=== PATIENT | male | born 1990 | race Caucasian/White ===

== ENCOUNTER 2023-06-13 21:27 | Observation (INO) ==
[2023-06-13 22:25] LABS: Hematocrit (blood only) 35.6 % (42.0-52.0); Hemoglobin 12.3 g/dl (14.0-18.0); Mean Corpuscular Hemoglobin 30.6 pg (25.0-34.0); Mean Corpuscular Hgb Conc 34.6 g/dL (32.0-36.0); Mean Corpuscular Volume 88.6 fL (80.0-100.0); RDW Standard Deviation 55.2 fL (36.4-46.3); Red Blood Count 4.02 M/uL (4.70-6.10); White Blood Count 3.17 K/ul (4.8-10.8)
[2023-06-13 22:31] LABS: Alanine Aminotransferase 102 U/L (7-52); Albumin Globulin Ratio 1.1 (0.9-2); Albumin Level 3.9 gm/dl (3.4-5.0); Alkaline Phosphatase 82 U/L (34-104); Anion Gap 9 (3-11); Aspartate Aminotransferase 202 U/L (13-39); BUN Creatinine Ratio 17.2 (10-20); Bilirubin,Total 4.6 mg/dl (0.2-1.0); Blood Urea Nitrogen 10 mg/dl (6-23); Carbon Dioxide 26 mmol/L (21-32); Chloride 96 mmol/L (98-107); Creatinine Clr Calc Pharmacy 201.9 ml/min; Est GFR (African American) > 150.0 ml/min; Globulin 3.5 gm/dl (2.5-4.0); Glucose 104 mg/dl (70-99(Fasting)); Potassium 3.3 mmol/L (3.5-5.1); Sodium 131 mmol/L (136-145); Total Protein 7.4 gm/dl (6.0-8.3)
[2023-06-13] MEDS ORDERED: SODIUM CHLORIDE 0.9% 250 ML IV PRN (22:31)
[2023-06-13 22:33] LABS: Basophils # (auto) 0.01 K/uL (0.00-0.20); Basophils % (auto) 0.3 %; Eosinophils # (auto) 0.06 K/uL (0.00-0.50); Eosinophils % (auto) 1.9 %; Immature Granulocytes # (auto) 0.01 K/uL (0.01-0.20); Immature Granulocytes % (auto) 0.3 %; Lymphocytes # (auto) 1.64 K/uL (1.20-3.40); Lymphocytes % (auto) 51.7 %; Monocytes % (auto) 9.5 %; Neutrophils # (auto) 1.15 K/uL (1.40-6.50); Neutrophils % (auto) 36.3 %; Platelet Count 26 K/uL (130-400); Platelet Estimate Signific. Decreased (Normal)
[2023-06-13] MEDS: FAMOTIDINE 20MG IV PUSH 20 MG/5 ML SYR IV STA (22:41)
[2023-06-13] MEDS: ONDANSETRON INJ 2 MG/ML 2 ML VIAL IV STA (22:42)
[2023-06-13] MEDS: OPTIRAY 320 100ml IV ONE (22:51)
[2023-06-13 22:53] LABS: INR 1.8 (0.9-1.1); Partial Thromboplastin Ratio 1.3; Partial Thromboplastin Time 36 Seconds (21-31); Prothrombin Time 19.3 Seconds (9.0-12.0)
[2023-06-13] MEDS: PANTOprazole 80 MG in DEXTROSE 5% 100 ML IV STA (23:00)
[2023-06-13 23:02] LABS: Magnesium 1.4 mg/dl (1.7-2.4); Phosphorus 2.8 mg/dl (2.5-4.9)
[2023-06-13] MEDS: MULTI-VITAMIN INFUSION 10 ML, THIAMINE HCL 100 MG, FOLIC ACID 1 MG in SODIUM CHLORIDE 0... IV ONE (23:02)
--- NOTE | 2023-06-13 23:28 | CT Scan Report ---
Exam(s): CT ABDOMEN + PELVIS With Contrast IV Amt: 89 ml opti 320 EXAM: CT Abdomen and Pelvis With Intravenous Contrast CLINICAL HISTORY: Reason for exam: jaundice, bleeding from gums, elevated LFTs/bili,. TECHNIQUE: Axial computed tomography images of the abdomen and pelvis with intravenous contrast. CTDI is Automated exposure control was utilized for the study. A dose lowering technique was utilized adhering to the principles of ALARA. CONTRAST: Patient received 89 ml opti 320 of IV contrast COMPARISON: No relevant prior studies available. FINDINGS: Lung bases: Unremarkable. No mass. No consolidation. ABDOMEN: Liver: Low-attenuation area adjacent to the gallbladder fossa measures approximately 3.6 x 1.8 cm. Consider correlation with abdominal ultrasound. Gallbladder and bile ducts: Unremarkable. No calcified stones. No ductal dilation. Pancreas: Unremarkable. No mass. No ductal dilation. Spleen: Splenomegaly measuring up to 19 cm. Adrenals: Unremarkable. No mass. Kidneys and ureters: Unremarkable. No solid mass. No hydronephrosis. Stomach and bowel: Unremarkable. No obstruction. No mucosal thickening. PELVIS: Appendix: No findings to suggest acute appendicitis. Bladder: Unremarkable. No mass. Reproductive: Unremarkable as visualized. ABDOMEN and PELVIS: Intraperitoneal space: Unremarkable. No free air. No significant fluid collection. Bones/joints: Bilateral pars defects at L5. No acute fracture. No dislocation. Soft tissues: Unremarkable. Vasculature: Unremarkable. No abdominal aortic aneurysm. Lymph nodes: Unremarkable. No enlarged lymph nodes. Other findings: 25.5 mGy and DLP is 1333.55 mGy-cm. IMPRESSION: 1. Bilateral pars defects at L5. 2. Splenomegaly measuring up to 19 cm. 3. Low-attenuation hepatic area adjacent to the gallbladder fossa measures approximately 3.6 x 1.8 cm. Consider correlation with abdominal ultrasound. Electronically signed by: Wilder Montes MD 06/13/23 23:27 PM
--- NOTE | 2023-06-13 23:49 | Emergency Department Note ---
History of Present Illness General Chief complaint: Bleeding Stated complaint: LOW PLATELIT COUNT, BLOODY GUMS/SINUS Time Seen by Provider: 06/13/23 22:23 History of Present Illness This 32-year-old alcoholic presents the ER complaining of bleeding gums with a history of low platelets. Patient last quit drinking a few days ago. He does smoke marijuana. He states he feels little shaky. He did not realize he was jaundiced. Patient denies chest pain, dyspnea, abdominal pain, vomiting, diarrhea, IV drug use, excessive Tylenol use Home Medications Medication Instructions Recorded Confirmed Type Medical Cannibus 1 dose inhalation DIRECTED PRN 06/14/23 06/14/23 History NEEDED acamprosate 333 mg tablet,delayed 666 mg PO BID 06/14/23 06/14/23 History release folic acid 1 mg tablet 1 mg PO DAILY 06/14/23 06/14/23 History gabapentin 100 mg capsule 100 mg PO TID 06/14/23 06/14/23 History paliperidone 6 mg tablet,extended 6 mg PO QAM 06/14/23 06/14/23 History release 24 hr (Invega) Allergies Allergy/AdvReac Type Severity Reaction Status Date / Time No Known Allergies Allergy Verified 06/14/23 00:09 Past Med/Surg History Social History Smoking Status: Current every day smoker Tobacco Type: Cigarettes and E-cigarettes / Vaping Preferred Language: Marshallese Feels Safe at Home: Yes Review of Systems A total of 10 systems reviewed and were otherwise negative Physical Exam Vital Signs Vital Signs - 24 hr 06/13/23 21:37 06/13/23 23:29 06/14/23 00:34 Temperature 37.0 C 36.8 C Temperature Source Oral Oral Pulse Rate 90 81 Pulse Rate [Finger] 88 Pulse Rhythm Regular Pulse Strength Normal Respiratory Rate 18 18 18 Respiratory Effort / Characteristics Non-Labored Spontaneous Non-Labored Spontaneous Respiratory Depth Normal Normal Respiratory Pattern Regular Blood Pressure 129/84 124/80 Blood Pressure [Right Arm] 136/74 Blood Pressure Mean 99 94 Blood Pressure Mean [Right Arm] 94 Blood Pressure Position Sitting Sitting Blood Pressure Position [Right Arm] Semi-fowlers Pulse Oximetry 97 98 96 Oxygen Delivery Method Room Air Room Air Oxygen Flow Rate 0 Sepsis Recent Fever Within 48 Hours No Sepsis New/Unexplained Change in Mental Status N/A Sepsis Action Taken by Nursing No Action Required 06/14/23 00:50 06/14/23 01:00 06/14/23 01:05 Temperature 37.0 C 37.0 C Temperature Source Oral Oral Pulse Rate 87 94 H Pulse Rate [Finger] 96 H Pulse Rhythm Pulse Strength Respiratory Rate 18 18 18 Respiratory Effort / Characteristics Non-Labored Spontaneous Respiratory Depth Normal Respiratory Pattern Regular Blood Pressure 141/82 H 130/76 Blood Pressure [Right Arm] 130/76 Blood Pressure Mean 101 94 Blood Pressure Mean [Right Arm] 94 Blood Pressure Position Blood Pressure Position [Right Arm] Semi-fowlers Pulse Oximetry 96 96 96 Oxygen Delivery Method Room Air Oxygen Flow Rate Sepsis Recent Fever Within 48 Hours Sepsis New/Unexplained Change in Mental Status Sepsis Action Taken by Nursing 06/14/23 01:35 06/14/23 02:00 06/14/23 02:30 Temperature 36.9 C Temperature Source Oral Pulse Rate 90 86 Pulse Rate [Finger] 85 Pulse Rhythm Pulse Strength Respiratory Rate 19 19 16 Respiratory Effort / Characteristics Non-Labored Spontaneous Respiratory Depth Normal Respiratory Pattern Regular Blood Pressure 125/65 124/67 Blood Pressure [Right Arm] 125/68 Blood Pressure Mean 85 86 Blood Pressure Mean [Right Arm] 87 Blood Pressure Position Blood Pressure Position [Right Arm] Semi-fowlers Pulse Oximetry 95 94 Oxygen Delivery Method Room Air Oxygen Flow Rate Sepsis Recent Fever Within 48 Hours Sepsis New/Unexplained Change in Mental Status Sepsis Action Taken by Nursing VITALS: Vitals are noted on the nurse's note and reviewed by myself. Vital signs stable. GENERAL: White male jaundice, no bleeding from the IV site. In no acute distress, nondiaphoretic, well-developed well-nourished. SKIN: Capillary reflex less than 2 seconds. HEENT: Normocephalic. PERRLA. EOMI. Nares patent. minimal bleeding from the upper gumline. Extensive plaque buildup. Mucous membranes moist. Neck is supple without nuchal rigidity. HEART: Regular rate and rhythm LUNGS: Clear to auscultation bilaterally without wheezes, rales or rhonchi. No retractions or accessory muscle use. ABDOMEN: Positive bowel sounds x 4. Normal tympanic percussion. Soft, nontender, without masses or organomegaly. Valdes sign negative. No guarding or rebound tenderness. no CVA tenderness MUSCULOSKELETAL: No gross musculoskeletal defects. NEURO: Patient was alert and oriented to person place and time. No focal neurological deficits. Course Administered Medications Discontinued Medications Multivitamins 10 ml/ Thiamine HCl 100 mg/ Folic Acid 1 mg/Sodium Chloride 1,011.2 mls @ 500 mls/hr IV .Q2H2M ONE Stop: 06/14/23 00:32 Last Infusion: 06/14/23 01:13 Dose: Infused Documented By: Admin: 06/13/23 23:02 Dose: 500 mls/hr Documented By: GERALDINE Pantoprazole Sodium 80 mg/ (Dextrose) 120 mls @ 480 mls/hr IV ONE STA Stop: 06/13/23 22:47 Last Infusion: 06/13/23 23:27 Dose: Infused Documented By: Admin: 06/13/23 23:00 Dose: 480 mls/hr Documented By: GERALDINE Famotidine (Pepcid 20mg Iv Push) 20 mg in 5 mls @ 2.5 mls/min IV NOW STA Stop: 06/13/23 22:34 Last Admin: 06/13/23 22:41 Dose: 2.5 mls/min Documented By: GERALDINE Magnesium Sulfate/Dextrose (Magnesium Sulfate / D5w) 1 gm in 100 mls @ 100 mls/hr IV Q1H PUJA Stop: 06/14/23 01:42 Last Infusion: 06/14/23 02:41 Dose: Infused Documented By: Admin: 06/14/23 01:40 Dose: 100 mls/hr Documented By: Infusion: 06/14/23 01:40 Dose: Infused Documented By: Infusion: 06/14/23 01:13 Dose: 100 mls/hr Documented By: Infusion: 06/14/23 00:39 Dose: 0 mls/hr Documented By: Admin: 06/14/23 00:07 Dose: 100 mls/hr Documented By: GERALDINE Ioversol (Optiray 320 100ml) 89 ml IV ONCE ONE Stop: 06/13/23 22:52 Last Admin: 06/13/23 22:51 Dose: 89 ml Documented By: NAE Ondansetron HCl (Ondansetron Inj 2 Mg/Ml 2 Ml Vial) 4 mg IV NOW STA Stop: 06/13/23 22:34 Last Admin: 06/13/23 22:42 Dose: 4 mg Documented By: GERALDINE Medical Decision Making Medical Records Attestation: I reviewed the patient's medical records. Home Medications Current Medication List: was personally reviewed by me Laboratory Data Attestation: I reviewed the patient's lab results. 06/13/23 21:45 06/13/23 21:45 Lab Results 06/13/23 06/13/23 06/14/23 Range/Units 21:45 22:57 00:03 WBC 3.17 L (4.8-10.8) K/ul RBC 4.02 L (4.70-6.10) M/uL Hgb 12.3 L (14.0-18.0) g/dl Hct 35.6 L (42.0-52.0) % MCV 88.6 (80.0-100.0) fL MCH 30.6 (25.0-34.0) pg MCHC 34.6 (32.0-36.0) g/dL RDW Std Deviation 55.2 H (36.4-46.3) fL RDW Coeff of Joe 17.0 H (11.5-14.5) % Plt Count 26 L* (130-400) K/uL Immature Gran % (Auto) 0.3 % Neut % (Auto) 36.3 % Lymph % (Auto) 51.7 % Carson % (Auto) 9.5 % Eos % (Auto) 1.9 % Baso % (Auto) 0.3 % Neut # (Auto) 1.15 L (1.40-6.50) K/uL Lymph # (Auto) 1.64 (1.20-3.40) K/uL Carson # (Auto) 0.30 (0.11-0.59) K/uL Eos # (Auto) 0.06 (0.00-0.50) K/uL Baso # (Auto) 0.01 (0.00-0.20) K/uL Immature Gran # (Auto) 0.01 (0.01-0.20) K/uL Platelet Estimate Signific. Decreased L (Normal) PT 19.3 H (9.0-12.0) Seconds INR 1.8 H (0.9-1.1) APTT 36 H (21-31) Seconds PTT Ratio 1.3 Sodium 131 L (136-145) mmol/L Potassium 3.3 L (3.5-5.1) mmol/L Chloride 96 L (98-107) mmol/L Carbon Dioxide 26 (21-32) mmol/L Anion Gap 9 (3-11) BUN 10 (6-23) mg/dl Creatinine 0.58 L (0.6-1.4) mg/dl Est Cr Clr Drug Dosing 201.9 ml/min Est GFR ( Amer) > 150.0 ml/min Est GFR (Non-Af Amer) 133.0 ml/min BUN/Creatinine Ratio 17.2 (10-20) Glucose 104 H (70-99(Fasting)) mg/dl Calcium 9.0 (8.6-10.3) mg/dl Phosphorus 2.8 (2.5-4.9) mg/dl Magnesium 1.4 L (1.7-2.4) mg/dl Total Bilirubin 4.6 H (0.2-1.0) mg/dl AST 202 H (13-39) U/L ALT 102 H (7-52) U/L Alkaline Phosphatase 82 (34-104) U/L Total Protein 7.4 (6.0-8.3) gm/dl Albumin 3.9 (3.4-5.0) gm/dl Globulin 3.5 (2.5-4.0) gm/dl Albumin/Globulin Ratio 1.1 (0.9-2) Acetaminophen < 3 L (10-30) ug/ml Ethyl Alcohol mg/dL < 10.0 (<10.0) mg/dl Blood Type A Positive Antibody Screen NEGATIVE Imaging Data Attestation: I personally reviewed and interpreted this imaging study as follows: Radiologist's Impression: Abdomen/Pelvis CT 06/13/23 22:33 Exam(s): CT ABDOMEN + PELVIS With Contrast IV Amt: 89 ml opti 320 EXAM: CT Abdomen and Pelvis With Intravenous Contrast CLINICAL HISTORY: Reason for exam: jaundice, bleeding from gums, elevated LFTs/bili,. TECHNIQUE: Axial computed tomography images of the abdomen and pelvis with intravenous contrast. CTDI is Automated exposure control was utilized for the study. A dose lowering technique was utilized adhering to the principles of ALARA. CONTRAST: Patient received 89 ml opti 320 of IV contrast COMPARISON: No relevant prior studies available. FINDINGS: Lung bases: Unremarkable. No mass. No consolidation. ABDOMEN: Liver: Low-attenuation area adjacent to the gallbladder fossa measures approximately 3.6 x 1.8 cm. Consider correlation with abdominal ultrasound. Gallbladder and bile ducts: Unremarkable. No calcified stones. No ductal dilation. Pancreas: Unremarkable. No mass. No ductal dilation. Spleen: Splenomegaly measuring up to 19 cm. Adrenals: Unremarkable. No mass. Kidneys and ureters: Unremarkable. No solid mass. No hydronephrosis. Stomach and bowel: Unremarkable. No obstruction. No mucosal thickening. PELVIS: Appendix: No findings to suggest acute appendicitis. Bladder: Unremarkable. No mass. Reproductive: Unremarkable as visualized. ABDOMEN and PELVIS: Intraperitoneal space: Unremarkable. No free air. No significant fluid collection. Bones/joints: Bilateral pars defects at L5. No acute fracture. No dislocation. Soft tissues: Unremarkable. Vasculature: Unremarkable. No abdominal aortic aneurysm. Lymph nodes: Unremarkable. No enlarged lymph nodes. Other findings: 25.5 mGy and DLP is 1333.55 mGy-cm. IMPRESSION: 1. Bilateral pars defects at L5. 2. Splenomegaly measuring up to 19 cm. 3. Low-attenuation hepatic area adjacent to the gallbladder fossa measures approximately 3.6 x 1.8 cm. Consider correlation with abdominal ultrasound. Electronically signed by: Wilder Montes MD 06/13/23 23:27 PM MDM Narrative Prior records/ancillary studies reviewed and summarized above. Nursing notes reviewed. Additional history obtained from nurse. The patient's history was concerning for bleeding gums. Differential diagnosis: Etiologies such as progression of alcoholism, ITP, viral illness, metabolic, infection, hypo/hyperglycemia, electrolyte abnormalities, cardiac sources, intracerebral event, toxicologic, neurologic, as well as others were entertained. Physical examination: As above. ER treatment provided: IV Lock An order was placed for continuous cardiac monitoring. The monitor shows a rate of 60-100 with a sinus rhythm per my interpretation. Type and screen, platelets were ordered, Protonix, Pepcid, Zofran, banana bag, IV fluids Magnesium and potassium were replaced Blood consent was reviewed with the patient, signed and placed in the chart. On reassessment the patient felt better. Diagnostics interpretation by me: ECG: Ordered for weakness EKG: Normal sinus, QTc 480, no acute ST-T wave changes. Impression normal sinus rhythm independent performance of The labs Independently Interpreted by myself revealed pancytopenia most likely related to alcoholism Platelets were 26,000. I did review his labs on the [facility] apt and back in April as a were in the 100,000s. Elevated LFTs and T. bili most like related to alcoholism, prolonged INR Imaging studies: CT as above Chest x-ray with no acute consolidation, pneumothorax or free air per my independent interpretation Consultation: A consultation was placed with the hospitalist. The case was discussed and diagnostics were reviewed. The patient was evaluated in the ER for further treatment. Exam and history seem consistent with pancytopenia with minimal bleeding gums most like related to his alcoholism. Patient was given platelets. He was medicated as above. Medicine was consulted and case discussed. He will be admitted to the medical service for further evaluation and treatment. By the evaluation outlined above emergent etiologies such as cardiac sources, intracerebral event, toxologic, neurologic, abnormalities blood glucose, metabolic, as well as others were deemed relatively unlikely. The pt informed about the findings as listed above. All questions were answered and pleased with the treatment. The chart was completed utilizing [employer] Speech voice recognition software. Grammatical errors, random word insertions, pronoun errors, and incomplete sentences are an occassional consequence of this system due to software limitations, ambient noise, and hardware issues. Any formal questions or concerns about the content, text, or information contained within the body of this dictation should be directly addressed to the physician assistant chief engineer for clarification. Impression & Plan Pancytopenia, Acute alcohol abuse, Hypokalemia, Hypomagnesemia Discharge Plan Visit Data Chief Complaint: Bleeding Stated Complaint: LOW PLATELIT COUNT, BLOODY GUMS/SINUS ED Provider: H[facility] ED Midlevel Provider: Farzaneh Teixeira Discharge Problem: Pancytopenia, Acute alcohol abuse, Hypokalemia, Hypomagnesemia Patient Disposition: Admitted As Inpatient Condition: Fair Forms Stand Alone Forms: My [facility] Housekeeper Prescriptions Prescriptions: No Action folic acid 1 mg tablet 1 mg PO DAILY gabapentin 100 mg Capsule 100 mg PO TID acamprosate 333 mg tablet,delayed release (DR/EC) 666 mg PO BID Rx Instructions: PER [facility]--TID, PER PT "ONLY TAKE BID, AND SOMETIMES ONLY ONCE A DAY". paliperidone [Invega] 6 mg Tablet Extended Release 24 Hr 6 mg PO QAM Medical Cannibus 1 dose inhalation DIRECTED PRN (Reason: NEEDED) Rx Instructions: SMOKES/VAPS Referrals Referrals: Tami Upton MD [Primary Care Provider] -
[2023-06-14] MEDS: MAGNESIUM SULFATE / D5W 1 GM/100 ML BAG IV SCH (00:07)
--- NOTE | 2023-06-14 02:17 | History & Physical Report ---
Date of Service June 14, 2023 Assessment & Plan (1) Pancytopenia: Plan: 32-year-old male past medical history significant for hyperlipidemia, lung nodules, hepatosplenomegaly, alcohol induced fatty liver, history of compression fracture L1 lumbar vertebrae and T12 vertebrae, thrombocytopenia due to drugs, alcohol dependence, cigarette smoking, obsessive-compulsive disorder, medical marijuana use, history of elevated liver transaminases levels, history of ge neral anxiety disorder, history of Lyme disease presents with bleeding gums and found to have thrombocytopenia. Patient states in March he was in [facility] because his family doctor called him and told that his platelets are very low. As per patient in [facility] he was given platelet transfusion and also was put on steroids. Seems he also followed with heme-onc as outpatient but by the time his platelets improved. And was told to come to the ER if ever develops any bleeding issues. And since last few days again has some gum bleeding and he came here. He states he drinks alcohol on and off. He drinks 10 to 14 days heavy alcohol about 750 ml of vodka or whiskey daily. Then when he runs out of money or feels like stopping he stops drinking.Lately he is detoxing himself at home. Last Saturday morning was last drink as per patient. And he had withdrawal symptoms for few days. He states currently he is done with withdrawal. He states that he he has history of withdrawal seizures in the past. was admitted to hospital in [place] in the past as per patient. Currently hemodynamics are okay. Denies any blood in the stools or black stool. Denies any hematuria. Denies any headache or dizziness. No blurred visions. Has some runny nose. No sore throat. Appetite is okay. Denies any chest pain or shortness of breath. No nausea. No abdominal pain. Pancytopenia Mostly from alcoholism Will follow labs Thrombocytopenia Bleeding gums Platelets are [address] on Protonix drip History of platelet transfusion and steroids in the recent past Will consult heme-onc for further recommendations GI consult for any GI bleed Alcoholism States he has done with the withdrawal Will place on gabapentin alcohol withdrawal protocol and IV Ativan as needed Restart home gabapentin when gabapentin taper is done Received banana bag in the ER IV thiamine and folic acid Closely monitor Patient states he is following with addiction center at [facility] Alcoholic hepatitis CT scan showing lesion in gallbladder fossa Patient had MRI liver with and without contrast on April 16, 2023 which showed hepatosplenomegaly and small gastroesophageal varices. Steatohepatitis Consult GI for further recommendations Psychiatric illness Continue home medications DVT prophylaxis SCDs Disposition Telemetry History of Present Illness Chief Complaint: Bleeding gums, thrombocytopenia, alcoholic hepatitis Primary Care Provider: Tami Upton MD 32-year-old male with past medical history significant for hyperlipidemia, lung nodules, hepatosplenomegaly, alcohol induced fatty liver, history of compression fracture L1 lumbar vertebrae and T12 vertebrae, thrombocytopenia due to drugs, alcohol dependence, cigarette smoking, obsessive-compulsive disorder, medical marijuana use, history of elevated liver transaminases levels, history of general anxiety disorder, history of Lyme disease presents with bleeding gums and found to have thrombocytopenia. Patient states in March he was in [facility] because his family doctor called him and told that his platelets are very low. As per patient in [facility] he was given platelet transfusion and also was put on steroids. Seems he also followed with heme-onc as outpatient but by the time his platelets improved. And was told to come to the ER if ever develops any bleeding issues. And since last few days having gum bleeding and he came here. He states he drinks alcohol on and off. He drinks 10 to 14 days heavy alcohol about 750 ml of vodka or whiskey daily. Then when he runs out of money or feels like stopping he stops drinking.Lately he is detoxing himself at home. Last Saturday morning was last drink as per patient. And he had withdrawal symptoms for few days. He states currently he is done with withdrawal. He states that he he has history of withdrawal seizures in the past. was admitted to hospital in [place] in the past as per patient. Currently hemodynamics are okay. Denies any blood in the stools or black stool. Denies any hematuria. Denies any headache or dizziness. No blurred visions. Has some runny nose. No sore throat. Appetite is okay. Denies any chest pain or shortness of breath. No nausea. No abdominal pain. Past medical history. As mentioned above Past surgical history. Colonoscopy. Tubes in ears. Tonsillectomy and adenoidectomy. Social history. Smokes 0 point packs daily. On and off heavy drinking of alcohol as per patient. Smokes marijuana. Family history. Brother has alcoholism. Asthma. Drug abuse. Smoking. Allergies Allergy/AdvReac Type Severity Reaction Status Date / Time No Known Allergies Allergy Verified 06/14/23 00:09 Home Medications Medication Instructions Recorded Confirmed Type Medical Cannibus 1 dose inhalation DIRECTED PRN 06/14/23 06/14/23 History NEEDED acamprosate 333 mg tablet,delayed 666 mg PO BID 06/14/23 06/14/23 History release folic acid 1 mg tablet 1 mg PO DAILY 06/14/23 06/14/23 History gabapentin 100 mg capsule 100 mg PO TID 06/14/23 06/14/23 History paliperidone 6 mg tablet,extended 6 mg PO QAM 06/14/23 06/14/23 History release 24 hr (Invega) Past Med/Surg History Social History Smoking Status: Current every day smoker Tobacco Type: Cigarettes Cigarettes Per Day: 10; Do You Dip or Chew Tobacco: No; Hx Alcohol Use: Yes Alcohol type: hard liquor Hx Substance Use: Yes Last Used Substance: Hours (ago) Preferred Language: Gabonese Communication Ability: Effective Shot Blast Equipment Operator Required: No Beliefs That Will Affect Care: None Current Living Situation: Alone Other Information That Helps Us Care for You: No Feels Safe at Home: Yes Safety Concerns: Feels Safe At This Time Assistive Devices: None Review of Systems Review of Systems: All systems reviewed & are unremarkable except as noted in HPI & below Physical Exam Physical Exam: General- Not in distress Head- atraumatic Eyes- PERRL. ENT- oropharynx clear Neck- supple, no JVD. Lungs- clear to auscultation no wheezing or crackles Heart- regular rate and rhythm; no murmur, no gallop. Abdomen- normal bowel sounds, soft, nontender, no distension. Extremities- no pretibial edema, no erythema seen. Neuro- alert, oriented PERRL, no facial palsy; no dysarthria; moves extremities. Results & Data Results & Data Vital Signs (Past 12 Hours) Vital Signs Temp Pulse Pulse Resp BP BP Pulse Ox 06/14/23 02:00 36.9 C 86 19 124/67 06/14/23 01:35 90 19 125/65 95 06/14/23 01:05 37.0 C 94 H 18 130/76 96 06/14/23 01:00 96 H 18 130/76 96 06/14/23 00:50 37.0 C 87 18 141/82 H 96 06/14/23 00:34 36.8 C 81 18 124/80 96 06/13/23 23:29 88 18 136/74 98 06/13/23 21:37 37.0 C 90 18 129/84 97 O2 Del Method O2 Flow Rate 06/14/23 02:00 06/14/23 01:35 06/14/23 01:05 06/14/23 01:00 Room Air 06/14/23 00:50 06/14/23 00:34 0 06/13/23 23:29 Room Air 06/13/23 21:37 Room Air Diagnostic Findings Laboratory Results WBC 3.17 K/ul (4.8-10.8) L 06/13/23 21:45 RBC 4.02 M/uL (4.70-6.10) L 06/13/23 21:45 Hgb 12.3 g/dl (14.0-18.0) L 06/13/23 21:45 Hct 35.6 % (42.0-52.0) L 06/13/23 21:45 MCV 88.6 fL (80.0-100.0) 06/13/23 21:45 MCH 30.6 pg (25.0-34.0) 06/13/23 21:45 MCHC 34.6 g/dL (32.0-36.0) 06/13/23 21:45 RDW Std Deviation 55.2 fL (36.4-46.3) H 06/13/23 21:45 RDW Coeff of Joe 17.0 % (11.5-14.5) H 06/13/23 21:45 Plt Count 26 K/uL (130-400) L* 06/13/23 21:45 Immature Gran % (Auto) 0.3 % 06/13/23 21:45 Neut % (Auto) 36.3 % 06/13/23 21:45 Lymph % (Auto) 51.7 % 06/13/23 21:45 [place] % (Auto) 9.5 % 06/13/23 21:45 Eos % (Auto) 1.9 % 06/13/23 21:45 Baso % (Auto) 0.3 % 06/13/23 21:45 Neut # (Auto) 1.15 K/uL (1.40-6.50) L 06/13/23 21:45 Lymph # (Auto) 1.64 K/uL (1.20-3.40) 06/13/23 21:45 Dim[place] # (Auto) 0.30 K/uL (0.11-0.59) 06/13/23 21:45 Eos # (Auto) 0.06 K/uL (0.00-0.50) 06/13/23 21:45 Baso # (Auto) 0.01 K/uL (0.00-0.20) 06/13/23 21:45 Immature Gran # (Auto) 0.01 K/uL (0.01-0.20) 06/13/23 21:45 Platelet Estimate Signific. Decreased (Normal) L 06/13/23 21:45 PT 19.3 Seconds (9.0-12.0) H 06/13/23 21:45 INR 1.8 (0.9-1.1) H 06/13/23 21:45 APTT 36 Seconds (21-31) H 06/13/23 21:45 PTT Ratio 1.3 06/13/23 21:45 Sodium 131 mmol/L (136-145) L 06/13/23 21:45 Potassium 3.3 mmol/L (3.5-5.1) L 06/13/23 21:45 Chloride 96 mmol/L (98-107) L 06/13/23 21:45 Carbon Dioxide 26 mmol/L (21-32) 06/13/23 21:45 Anion Gap 9 (3-11) 06/13/23 21:45 BUN 10 mg/dl (6-23) 06/13/23 21:45 Creatinine 0.58 mg/dl (0.6-1.4) L 06/13/23 21:45 Est Cr Clr Drug Dosing 201.9 ml/min 06/13/23 21:45 Est GFR ( Amer) > 150.0 ml/min 06/13/23 21:45 Est GFR (Non-Af Amer) 133.0 ml/min 06/13/23 21:45 BUN/Creatinine Ratio 17.2 (10-20) 06/13/23 21:45 Glucose 104 mg/dl (70-99(Fasting)) H 06/13/23 21:45 Calcium 9.0 mg/dl (8.6-10.3) 06/13/23 21:45 Phosphorus 2.8 mg/dl (2.5-4.9) 06/13/23 21:45 Magnesium 1.4 mg/dl (1.7-2.4) L 06/13/23 21:45 Total Bilirubin 4.6 mg/dl (0.2-1.0) H 06/13/23 21:45 AST 202 U/L (13-39) H 06/13/23 21:45 ALT 102 U/L (7-52) H 06/13/23 21:45 Alkaline Phosphatase 82 U/L (34-104) 06/13/23 21:45 Total Protein 7.4 gm/dl (6.0-8.3) 06/13/23 21:45 Albumin 3.9 gm/dl (3.4-5.0) 06/13/23 21:45 Globulin 3.5 gm/dl (2.5-4.0) 06/13/23 21:45 Albumin/Globulin Ratio 1.1 (0.9-2) 06/13/23 21:45 Acetaminophen < 3 ug/ml (10-30) L 06/14/23 00:03 Ethyl Alcohol mg/dL < 10.0 mg/dl (<10.0) 06/14/23 00:03 Blood Type A Positive 06/13/23 22:57 Antibody Screen NEGATIVE 06/13/23 22:57 Impressions Abdomen/Pelvis CT 06/13/23 22:33 Exam(s): CT ABDOMEN + PELVIS With Contrast IV Amt: 89 ml opti 320 EXAM: CT Abdomen and Pelvis With Intravenous Contrast CLINICAL HISTORY: Reason for exam: jaundice, bleeding from gums, elevated LFTs/bili,. TECHNIQUE: Axial computed tomography images of the abdomen and pelvis with intravenous contrast. CTDI is Automated exposure control was utilized for the study. A dose lowering technique was utilized adhering to the principles of ALARA. CONTRAST: Patient received 89 ml opti 320 of IV contrast COMPARISON: No relevant prior studies available. FINDINGS: Lung bases: Unremarkable. No mass. No consolidation. ABDOMEN: Liver: Low-attenuation area adjacent to the gallbladder fossa measures approximately 3.6 x 1.8 cm. Consider correlation with abdominal ultrasound. Gallbladder and bile ducts: Unremarkable. No calcified stones. No ductal dilation. Pancreas: Unremarkable. No mass. No ductal dilation. Spleen: Splenomegaly measuring up to 19 cm. Adrenals: Unremarkable. No mass. Kidneys and ureters: Unremarkable. No solid mass. No hydronephrosis. Stomach and bowel: Unremarkable. No obstruction. No mucosal thickening. PELVIS: Appendix: No findings to suggest acute appendicitis. Bladder: Unremarkable. No mass. Reproductive: Unremarkable as visualized. ABDOMEN and PELVIS: Intraperitoneal space: Unremarkable. No free air. No significant fluid collection. Bones/joints: Bilateral pars defects at L5. No acute fracture. No dislocation. Soft tissues: Unremarkable. Vasculature: Unremarkable. No abdominal aortic aneurysm. Lymph nodes: Unremarkable. No enlarged lymph nodes. Other findings: 25.5 mGy and DLP is 1333.55 mGy-cm. IMPRESSION: 1. Bilateral pars defects at L5. 2. Splenomegaly measuring up to 19 cm. 3. Low-attenuation hepatic area adjacent to the gallbladder fossa measures approximately 3.6 x 1.8 cm. Consider correlation with abdominal ultrasound. Electronically signed by: Wilder Montes MD 06/13/23 23:27 PM ECG Additional Comments: ECG. Normal sinus rhythm rate of 85. Prolonged QTc at 480 Code Status & VTE Plan VTE Prophylaxis Plan VTE Prophylaxis will be ordered: Yes
[2023-06-14 03:19] LABS: Amphetamines+Metham, Urine Neg (Neg); Barbiturates, Urine Neg (Neg); Benzodiazepine, Urine Neg (Neg); Cocaine, Urine Neg (Neg); MDMA (Ecstacy), Urine Neg (Neg); Marijuana, Urine Pos (Neg); Methadone, Urine Neg (Neg); Opiate, Urine Neg (Neg); Phencyclidine, Urine Neg (Neg)
[2023-06-14] MEDS ORDERED: NITROGLYCERIN SL 0.4 MG/TAB TAB SL PRN (04:08)
[2023-06-14] MEDS ORDERED: GABAPENTIN 1200MG ALCOHOL WITHDRAWAL LOAD PO STA (04:08)
[2023-06-14] MEDS ORDERED: LORazepam 2 MG in SYRINGE 1 ML IV PRN (04:08)
[2023-06-14] MEDS ORDERED: LORazepam 3 MG in SYRINGE 1.5 ML IV PRN (04:08)
[2023-06-14] MEDS ORDERED: Ativan IV Alcohol Withdrawal--Active Protocol IV PRN (04:08)
[2023-06-14] MEDS ORDERED: LORazepam 1 MG in SYRINGE 0.5 ML IV PRN (04:08)
[2023-06-14] MEDS: GABAPENTIN 600 MG TAB PO ONE (05:06)
[2023-06-14] MEDS: PANTOprazole 40 MG in DEXTROSE 5% MINI-B 100 ML IV SCH (05:09)
--- NOTE | 2023-06-14 07:07 | XRay Report ---
XR chest 1V portable HISTORY: 32 years-old Male weakness acute weakness COMPARISON: None TECHNIQUE: AP view of the chest FINDINGS: Cardiomediastinal and hilar silhouettes are within normal limits. No pneumothorax, pleural effusion o r airspace consolidation. The bones appear intact. IMPRESSION: No acute process. ACT 112: Negative or not required by law. The above report was generated using voice recognition software. It may contain grammatical, syntax o r spelling errors. Electronically signed by: Reed Lambert M.D. 06/14/2023 7:06 AM
[2023-06-14 07:12] LABS: Hematocrit (blood only) 34.7 % (42.0-52.0); Hemoglobin 11.8 g/dl (14.0-18.0); Mean Corpuscular Hemoglobin 30.6 pg (25.0-34.0); Mean Corpuscular Volume 89.9 fL (80.0-100.0); Mean Platelet Volume 11.8 fL (9.4-12.4); Platelet Count 30 K/uL (130-400); RDW Coefficient of Variation 17.6 % (11.5-14.5); RDW Standard Deviation 58.2 fL (36.4-46.3); Red Blood Count 3.86 M/uL (4.70-6.10); White Blood Count 3.37 K/ul (4.8-10.8)
[2023-06-14 07:24] LABS: Alanine Aminotransferase 85 U/L (7-52); Albumin Level 3.5 gm/dl (3.4-5.0); Alkaline Phosphatase 61 U/L (34-104); Anion Gap 7 (3-11); Aspartate Aminotransferase 171 U/L (13-39); BUN Creatinine Ratio 12.1 (10-20); Bilirubin Direct 2.7 mg/dl (0-0.2); Bilirubin,Total 4.8 mg/dl (0.2-1.0); Blood Urea Nitrogen 7 mg/dl (6-23); Calcium 8.5 mg/dl (8.6-10.3); Carbon Dioxide 27 mmol/L (21-32); Chloride 100 mmol/L (98-107); Creatinine Clr Calc Pharmacy 203.1 ml/min; Est GFR (African American) > 150.0 ml/min; Glucose 90 mg/dl (70-99(Fasting)); Magnesium 1.9 mg/dl (1.7-2.4); Potassium 3.3 mmol/L (3.5-5.1); Sodium 134 mmol/L (136-145); Total Protein 6.4 gm/dl (6.0-8.3)
[2023-06-14 07:34] LABS: INR 1.7 (0.9-1.1); Prothrombin Time 17.9 Seconds (9.0-12.0)
[2023-06-14 08:11] LABS: Basophils # (auto) 0.01 K/uL (0.00-0.20); Basophils % (auto) 0.3 %; Eosinophils # (auto) 0.07 K/uL (0.00-0.50); Eosinophils % (auto) 2.1 %; Immature Granulocytes # (auto) 0.01 K/uL (0.01-0.20); Immature Granulocytes % (auto) 0.3 %; Lymphocytes # (auto) 1.67 K/uL (1.20-3.40); Lymphocytes % (auto) 49.6 %; Monocytes # (auto) 0.53 K/uL (0.11-0.59); Monocytes % (auto) 15.7 %; Neutrophils # (auto) 1.08 K/uL (1.40-6.50)
[2023-06-14] MEDS: FOLIC ACID 1 MG TAB PO SCH (08:50)
[2023-06-14] MEDS: POTASSIUM CHLORIDE CRTAB 20 MEQ TABCR PO STA (08:53)
[2023-06-14] MEDS: PALIPERIDONE 3 MG TABCR PO SCH (09:02)
[2023-06-14] MEDS: PHYTONADIONE 5 MG TAB PO STA (09:04)
[2023-06-14] MEDS: ASCORBIC ACID 500 MG TAB PO SCH (09:04)
[2023-06-14] MEDS: THIAMINE HCL 100 MG in SYRINGE 9 ML IV SCH (09:05)
[2023-06-14 09:38] LABS: Folate (Folic Acid),Ser orPlas 15.15 ng/ml (>5.38)
--- NOTE | 2023-06-14 10:02 | Gastrointestinal Consultation ---
Date of Consultation June 14, 2023 Assessment & Plan (1) Alcoholic hepatitis: (2) Alcohol abuse: Plan Discussed with patient today about the importance of cessation of ETOH. he does see addiction counselling as an outpatient. I also advised him to look into resources such as AA and rehab. We discussed that continued ETOH abuse is going to be detrimental to his health. he voiced understanding of this. suspect LFT rise is due to etoh abuse as this appears to be trending down. Would consider EGD as outpatient given a reported history of varices seen on MRI done in April. Would need correction of platelets prior to any endoscopic procedure. continue protonix 40mg IV BID. Supervising Physician Co-Signing Physician Notes Agree with TALIB Perez as above Interviewed and examined patient and agree with above Abd: Soft, NT, ND, +BS Discussed need to abstain from all alcohol. He states he is currently in outpatient rehab at [facility] Continue current therapy and supportive care History of Present Illness Reason for Consultation: alcoholic hepatitis Requesting Physician: Estuardo Reese MD Attending Physician: Tyler Hung MD History of Present Illness Patient is a 32 year old male with past medical history significant for hyperlipidemia, lung nodules, hepatosplenomegaly, alcohol induced fatty liver, history of compression fracture L1 lumbar vertebrae and T12 vertebrae, thrombocytopenia due to drugs, alcohol dependence, cigarette smoking, obsessive- compulsive disorder, medical marijuana use, history of elevated liver transaminases levels, history of general anxiety disorder, history of Lyme disease presented to the ED with bleeding gums and found to have thrombocytopenia with platelets of 26. Patient states in March he was in [facility] because his family doctor called him and told that his platelets are very low. As per patient, in [facility] he was given platelet transfusion and also was put on steroids. He has followed with heme-onc as outpatient but by the time his platelets improved. He was told to come to the ER if ever develops any bleeding issues and came due to bleeding gums. He tells me that he drinks about liter of vodka or whiskey daily and has done this since he was a teenager. his last drink was a few days ago. He tells me that he had withdrawn at that time and he did suffer hallucinations but thias has resolved now. he tells me he is seeing addiction counselling as an outpatient. CT 06/13/23 splenomegaly, low attenuation hepatic area adjacent to the gallbladder fossa measures 3.6 x 1.8 cm. per chart, he had an MRI of liver done 04/16/23 showing hepatomegaly/small gastroesophageal varices and steatohepatitis. I do not have these records. he has never had an EGD or colonoscopy. 06/14/23 total bili 4.8, d bili 2.7, ast 171, alt 85, alk 61. Patient denies any current issues with nausea, vomiting, dysphagia, heartburn, abdominal pain, unintentional weight loss, change in bowels, melena, or bright red blood per rectum. Allergies Allergy/AdvReac Type Severity Reaction Status Date / Time No Known Allergies Allergy Verified 06/14/23 00:09 Home Medications Medication Instructions Recorded Confirmed Type Medical Cannibus 1 dose inhalation DIRECTED PRN 06/14/23 06/14/23 History NEEDED acamprosate 333 mg tablet,delayed 666 mg PO BID 06/14/23 06/14/23 History release folic acid 1 mg tablet 1 mg PO DAILY 06/14/23 06/14/23 History gabapentin 100 mg capsule 100 mg PO TID 06/14/23 06/14/23 History paliperidone 6 mg tablet,extended 6 mg PO QAM 06/14/23 06/14/23 History release 24 hr (Invega) Patient History Social History Smoking Status: Current every day smoker Tobacco Type: Cigarettes Cigarettes Per Day: 10; Do You Dip or Chew Tobacco: No; Hx Alcohol Use: Yes Alcohol type: hard liquor Hx Substance Use: Yes Last Used Substance: Hours (ago) Preferred Language: Marshallese Communication Ability: Effective Preschool Teacher Required: No Beliefs That Will Affect Care: None Current Living Situation: Alone Other Information That Helps Us Care for You: No Feels Safe at Home: Yes Safety Concerns: Feels Safe At This Time Assistive Devices: None Review of Systems Review of Systems: All systems reviewed & are unremarkable except as noted in HPI & below Physical Exam Constitutional: WD/WN, vitals as above Respiratory: normal respiratory effort, lungs clear to auscultation Cardiovascular: RRR, no murmur, no edema Gastrointestinal (Abdomen): normal bowel sounds, soft, nontender, no hepatosplenomegaly Psychiatric: Orientation: alert and oriented x 3 Results & Data Vital Signs (Past 12 Hours) Vital Signs Temp Pulse Pulse Resp BP BP Pulse Ox 06/14/23 07:27 98.4 F 76 18 115/75 92 06/14/23 04:42 89 06/14/23 03:57 98.4 F 93 H 16 141/92 H 98 06/14/23 03:36 82 16 138/81 96 06/14/23 02:30 85 16 125/68 94 06/14/23 02:00 98.4 F 86 19 124/67 06/14/23 01:35 90 19 125/65 95 06/14/23 01:05 98.6 F 94 H 18 130/76 96 06/14/23 01:00 96 H 18 130/76 96 06/14/23 00:50 98.6 F 87 18 141/82 H 96 06/14/23 00:34 98.2 F 81 18 124/80 96 06/13/23 23:29 88 18 136/74 98 O2 Del Method O2 Flow Rate 06/14/23 07:27 Room Air 06/14/23 04:42 06/14/23 03:57 Room Air 06/14/23 03:36 Room Air 06/14/23 02:30 Room Air 06/14/23 02:00 06/14/23 01:35 06/14/23 01:05 06/14/23 01:00 Room Air 06/14/23 00:50 06/14/23 00:34 0 06/13/23 23:29 Room Air Coding Level of Care Code 90897 IN/OBS CONSULT LVL 4,60M Diagnoses Alcoholic hepatitis K70.10 Alcohol abuse F10.10
[2023-06-14] MEDS: GABAPENTIN 600 MG TAB PO SCH (12:42)
[2023-06-14] MEDS: PANTOprazole 40 MG in SYRINGE 0 ML IV SCH (12:43)
--- NOTE | 2023-06-14 13:33 | Communication Note ---
Date of Service: June 14, 2023 Patient seen and examined at bedside. Chart review from previous hospitalization in March at outside hospital. Patient required transfusion of 1 unit of platelets when his platelets drop less than 10,000. Patient underwent workup with hepatitis panel which was negative, HIV was negative and absolute reticulocyte count was slightly decreased. Patient follow-up with hematology in April 2023; the acute thrombocytopenia was thought likely secondary to alcohol intoxication. Patient denies any gum bleeding at the present time Labs reviewed; pancytopenia secondary to alcohol use disorder 5 mg of vitamin K and 1 unit of platelets ordered. Also on vitamin C Monitor for withdrawals. On physical exam : Constitutional: WD/WN, vitals as above, NAD, sitting up in bed, pleasant, conversing easily. No gums bleeding noted Respiratory: Bilateral vesicular breath sound Cardiovascular: RRR, no murmur, no edema Vessels: no JVD or carotid bruit Abdomen: normal bowel sounds, soft, nontender, no hepatosplenomegaly Musculoskeletal: no cyanosis or clubbing, extremities motor strength 5/5 Skin: no rashes, warm and dry normal turgor Neurologic: PERRL, EOMI, accommodation nl, no face palsy, no dysarthria CN's II- XI intact bilaterally and moves all extremities Psychiatric: A+Ox3, euthymic affect
[2023-06-14] MEDS: SODIUM CHLORIDE 0.9% 500 ML IV ONE (13:50)
--- OUTSIDE RECORDS SUMMARY | 2023-06-14 21:41 | External Medical Summary | Summary of Care ---
Author Name Unknown Organization [facility] Address [address] [place] [address] Phone [phone] Care Team Providers Care Coal Mill Operator Name Role Phone Cory Ross PA-C Primary Care Provider [phone] Reason for Visit * Reason Comments Pain Low back Limited Range Of Motion Low back Muscle Weakness Low back * Evaluate & Treat - Unlimited Visits (Within 10 days (routine)) - Pending Review Specialty Diagnoses / Procedures Referred By Danielle luong Referred To Contact Physical Medicine And Rehab Diagnoses Compression fracture of T12 vertebra, sequela Wedge compression fracture of first lumbar vertebra, sequela Procedures EVALUATE & TREAT Katherine Schmitt PA-C [address] [place] [id number] Referral ID Status Reason Start Date Expiration Date Visits Requested Visits Authorized [id number] Pending Review Specialty Services Required 06/04/2023 08/09/2023 5 5 Encounter Details Date Type Department Care Team (Latest Contact Info) Description 06/12/2023 2:30 PM EDT Rehab Services Physical Therapy [address] [place] [phone] Elise Garza, [address] [place] [address] T12 compression fracture, sequela*; Compression fracture of L1 lumbar vertebra, sequela; Chronic midline low back pain without sciatica; Muscle tightness; Muscle weakness Allergies No known active allergiesdocumented as of this encounter (statuses as of 06/13/2023) Medications Medication Sig Dispensed Refills Start Date End Date Status Acetaminophen 500 MG Oral Tablet (Tylenol Extra Strength) Take 1 Tablet by mouth every 6 hours as needed. 0 Active Acamprosate Calcium 333 MG Oral Tablet Delayed Release (Campral) Take 2 Tablets by mouth in the morning and 2 Tablets at noon and 2 Tablets before bedtime. 180 Tablet 2 04/03/2023 07/02/2023 Active Thiamine HCl 100 MG Oral Tablet (vitamin B-1) Take 1 Tablet by mouth in the morning. 30 Tablet 2 04/03/2023 07/02/2023 Active Folic Acid 1 MG Oral Tablet Take 1 Tablet by mouth in the morning. 30 Tablet 2 04/03/2023 07/02/2023 Active Gabapentin 100 MG Oral Capsule (Neurontin) Take 1 Capsule by mouth in the morning and 1 Capsule at noon and 1 Capsule before bedtime. 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 03/29/2023 Alcohol induced fatty liver 03/29/2023 Lung nodule seen on imaging study 03/29/2023 Elevated liver transaminase level 03/29/2023 Generalized anxiety disorder 03/29/2023 Hepatosplenomegaly 03/28/2023 OCD (obsessive compulsive disorder) 01/31/2023 Other insomnia 01/31/2023 Medical marijuana use 01/31/2023 Cigarette smoker 11/24/2022 Compression fracture of L1 lumbar vertebra 08/08 Compression fracture of T12 vertebra 08/09/2011 ADVANCE DIRECTIVE INFORMATION 03/08/2005 Overview: Not applicable (under age of 18) documented as of this encounter (statuses as of 06/13/2023) Resolved Problems Problem Noted Date Diagnosed Date Resolved Date Alcohol withdrawal syndrome with complication 03/30/19 24 04/02/2023 Neutropenic fever 03/30/2023 04/02/2023 Acute alcoholic intoxication with complication 03/29/2023 03/30/2023 Leucopenia 03/29/2023 04/02/2023 Drug-induced liver injury 03/29/2023 Acute hyperactive alcohol withdrawal delirium 04/05/19 23 03/30/2023 documented as of this encounter (statuses as of 06/13/2023) Immunizations Name Administration Dates Next Due Pneumococcal Conjugate Vaccine, 20-valent (Prevn ar20) 01/31/2023 Seasonal Influenza, PF, 6 M & above, IM , (FluLaval or Fluzone) 11/24/2022 TDAP (age 10 and older)(Boostrix) 01/31/2023 TDAP (age 11 and older)(Adacel) 08/08/2011 documented as of this encounter Social History Tobacco Use Types Packs/Day Years Used Date Smoking Tobacco: Every Day Cigarettes Smokeless Tobacco: Never Alcohol Use Standard Drinks/Week Comments Yes 0 (1 standard drink = 0.6 oz pur e alcohol) Occasional liter of vodka Hunger Vital Sign Answer Date Recorded Within the past 12 months, y ou worried that your food would run out before you got the money to buy more. Never true 10/27/19 23 Within the past 12 months, t he food you bought just didn't last and you didn't have money to get more. Never true 10/26/2022 Sex and Gender Information Value Date Recorded Sex Assigned at Male 10/26/2022 1:34 PM EDT Gender Identity Not on file Sexual Orientation Bisexual 10/26/2022 1: 34 PM EDT Job Start Date Occupation Industry Not on file Not on file Not on file documented as of this encounter Progress Notes * Elise Garza, MUD TANK OPERATOR - 06/12/2023 2:28 PM EDT Outpatient Physical Therapy Daily Progress Note Physical Therapy [address] [phone] Patient Name: Esdras Storey Date of : 1990 Age: [age] year old Date: 06/12/2023 Start of Care: 05/09/2023 Plan of Care Expiration Date: 06/20/2023 Visit Number: 7 Subjective: Patient states today is a good day for his back pain rating pain a 4/10. Pt states he feels he is making improvements with back pain but understands it will take time since he has had thepain for so long. States he was able to go for a 3 mile walk yesterday but did have increased pain.Reports he has increased pain with all activities and ADLs. States he does try to work on his exercises at home. Objective: Pt performed 50 minutes of core, thoracic/scapula, and LE strengthening as per below exercise chart. Performed today Exercise Sets/repetitions Part of HEP Comments Y SKTC 10x Y Y LTR 10x Y Y Hamstring Stretch 3 x 20'' Y Y Hooklying hip abd S/D 20x, green Y Y Bridges 20x, green Y Y Supine Marching 30x, green Y Y SLR 2x10 Y Y Supine side crunch 10x Y Y Sidelying Clams 20x, green Y Y Open Books 10x Y Y Seated forward flexion/diagonals 10x Y Y Cat/Camel 10x Y Y Thread the Needle 5x Y Y Seated Horizontal abd and diagonals 2x10, red Y Y Bilateral ER 20x, red Y Y Standing mid/low row 20x green Y Y Barrel Stretch 3 x 15'' Y Y Pallof Press 15x each, green Y Y Squats 20x Y Y Side Stepping 4 x 10, green Y Treatment completed under the direct supervision of Neetu Samuels PT. Assessment: Patient has made slow and steady progress with PT. Pt continues to have constant pain to the low back and mid back region. Patient has had chronic pain for many years. Pt has poor posturewith forward head and rounded shoulders. Pt has increased pain with all activities, ADLs, and gate tender. Pt has tightness to the low and mid back region that contributes to pain. Pt has decreased strength of the core, hips, and scapular region. Progressed pts program see chart above. Pt is able to tolerate progression of exercises despite having increased pain with exercises. Pt has been trying to work to work on his exercises at home but at times is difficult to increased pain. If pt continues to have increased pain pt may benefit from further testing or MRI to determine etiology of pain. Plan: Continue with current POC and determine further need for PT appts or refer back to doctor forfurther testing. UNTIMED SERVICES: 0 MINUTES TIMED SERVICES: 50 MINUTES TOTAL TIMES: 50 MINUTES Elise Garza PTA 06/12/2023 2:28 PM documented in this encounter Plan of Treatment Upcoming Encounters Date Type Department Care Team ([facility] st Contact Info) Description 06/17/2023 2:30 PM EDT Rehab Services Physical Therapy [address] [phone] Lyric Lynne, [address] [address] 06/19/2023 2:30 PM EDT Rehab Services Physical [address] [phone] Elise Garza PTA [address] [place] [phone] 07/01/2023 2:20 PM EDT Telemedicine Sleep Disorders C[facility] [address] [facility] [place] [phone] Dionna Uribe DO [address] [facility] [place] [address] 08/12/2023 12:20 PM EDT Laboratory Laboratory Hem/Onc [address] [phone] [place] [address] [place] [address] 08/12/2023 1:00 PM EDT Office Visit Hematology Oncology [facility] [place] [address] [place] [address] Rafael Metcalf PA-C [address] [place] [address] 08/29/2023 12:00 PM EDT Office Visit [address] [phone] Tami Upton MD [address] [place] [phone] Health Maintenance Due Date Last Done Comments Depression Screening 08/05/2015 08/04/2014 COVID-19 Vaccine (2022-24 season) 2022 DTaP,Tdap,and Td Vaccines (8 - Td or Tdap) 01/31/2033 01/31/2023, 08/08/2011, 07/08/2003, Additional history exists Hepatitis B Completed 10/11/1998, 03/04, 01/18/1998 Influenza Vaccine (FLU shot) Completed 11/24/2022 Pneumococcal Vaccine: Pediatrics (0 to 5 Years) and At-Risk Patients (6 to 64 Years) Completed 01/31/2023 GARDASIL-HPV IMMUNIZATION SERIES Aged Out No longer eligible based on patient's age to complete this topic MENINGOCOCCAL (MENACTRA/MENVEO) Aged Out No longer eligible based on patient's age to complete this topic documented as of this encounter Medical Devices Not on filedocumented as of this encounter Visit Diagnoses Diagnosis T12 compression fracture, sequela- Primary Compression fracture of L1 lumbar vertebra, sequela Chronic midline low back pain without sciatica Muscle tightness Unspecified disorder of muscle, ligament, and fascia Muscle weakness Muscle weakness (generalized) documented in this encounter Advance Directives Latest Code Status on File Code Status Date Activated Date Inactivated Comments Full Code 03/29/2023 1:43 PM 04/02/2023 2:03 PM This order reflects the patients wishes and were consensually agreed upon. Question Answer Comments Discussion of Advance Directives occurred with: Patient Care Teams Coal Mill Operator Relationship Specialty Start Date End Date Cory Ross PA-C [address] [place] [phone] PCP - General Physician Drawer Liner 10/27/22 documented as of this encounter
--- OUTSIDE RECORDS SUMMARY | 2023-06-14 21:41 | External Medical Summary | Summary of Care ---
Author Name Unknown Organization [facility] [address] [facility] [address] Phone [phone] Care Team Providers Care Accounts Receivable Manager Name Role Phone Cory Ross PA-C Primary Care Provider [phone] Reason for Visit * Reason Comments Pain LS Limited Range Of Motion LS Muscle Weakness LS * Evaluate & Treat - Unlimited Visits (Within 10 days (routine)) - Authorized Specialty Diagnoses / Procedures Referred By Danielle luong Referred To Contact Physical Medicine And Rehab Diagnoses Compression fracture of T12 vertebra, sequela Compression fracture of L1 vertebra, sequela Katherine Schmitt PA-C [address] [place] [address] Referral ID Status Reason Start Date Expiration Date Visits Requested Visits Authorized [id number] Authorized Specialty Services Required 05/09/2023 06/08/2023 8 8 Encounter Details Date Type Department Care Team (Latest Contact Info) Description 05/30/2023 1:00 PM EDT Rehab Services Physical Therapy [address] [phone] Elise Garza, JESSY [address] [place] [phone] T12 compression fracture, sequela*; Compression fracture of L1 lumbar vertebra, sequela; Chronic midline low back pain without sciatica; Muscle tightness; Muscle weakness Allergies No known active allergiesdocumented as of this encounter (statuses as of 05/30/2023) Medications Medication Sig Dispensed Refills Start Date [...] and 1 Capsule before bedtime. 0 Active Paliperidone ER 6 MG Oral Tablet Extended Release 24 Hour (Invega)Indications: Mixed obsessional thoughts and acts Take 1 Tablet by mouth in the morning for 7 days. 7 Tablet 0 05/29/2023 06/05/2023 Active documented as of this encounter (statuses as of 05/30/2023) Active Problems Problem Noted Date Diagnosed Date [...] as of this encounter (statuses as of 05/30/2023) Resolved Problems Problem Noted Date Diagnosed Date Resolved Date Alcohol withdrawal syndrome with complication 03/30/19 24 04/02/2023 Neutropenic fever 03/30/2023 04/02/2023 Acute alcoholic intoxication with complication 03/29/2023 03/30/2023 Leucopenia 03/29/2023 04/02/2023 Drug-induced liver injury 03/29/2023 Acute hyperactive alcohol withdrawal delirium 04/05/19 23 03/30/2023 documented as of this encounter (statuses as of 05/30/2023) Immunizations Name Administration Dates Next Due Pneumococcal [...] this encounter Progress Notes * Elise Garza, OCCUPATIONAL MEDICINE PHYSICIAN - 05/30/2023 1:12 PM EDT Outpatient Physical Therapy Daily Progress Note Physical Therapy [address] [phone] Patient Name: Esdras Storey Date of : 1990 Age: [age] year old Date: 05/30/2023 Start of Care: 05/09/2023 Plan of Care Expiration Date: 06/20/2023 Visit Number: 5 Subjective: Patient states today is a good day with his back rating his pain a 5/10 to the mid and low back. Pt states his pain depends on what he is doing. States prolonged sitting and standing morethan a hour increases his pain. Reports he has been working on his exercises at home with no difficulty. States he has been trying to walk about a mile a day if the weather is nice. Objective: Pt is agreeable to physical therapy for low back pain. Pt completed 40 minutes of therexto improve ROM and decrease back pain. See below for exercise details. Treatment completed under the in-direct supervision of Neetu Samuels PT. Performed today Exercise Sets/repetitions Part of HEP Comments N PROM of FARZANEH hips 10 minutes N Y SKTC 10x Y Y LTR 10x Y Y Hamstring Stretch 3 x 20'' Y Y Hooklying hip abd S/D 20x, green Y Y Bridges 20x, green Y Y SLR 10x Y Y Open Books 10x Y Y Seated forward flexion/diagonals 10x Y Y Cat/Camel 5x Y Y Seated Horizontal abd and diagonals 15x, red Y Y Bilateral ER 20x, red N Y Standing mid/low row 20x.green N Y Barrel Stretch 3 x 15'' N Assessment: Pt returns to PT with no change in status. Pt continues to have low back and mid back pain and tightness. Pts pain is constant but can increase with activity. Pt has a difficult time with bending over, squatting, prolonged sitting, and prolonged standing. Pt has been trying to be healthier and has been walking about a mile when it is nice out. Pt demonstrates tightness of the hips. Pt has decreased strength of the mid and low back that can contribute to sxs and pain. Pt has poor posture and requires cuing to correct this. Progressed exercises with barrel stretch. Pt could feel his muscles stretching with this exercise. Pt was pleasant during treatment and required cuing to correct form with most exercises. Pt felt looser at the end of treatment. Pt will benefit from continuedskilled PT to increase strength and mobility to improve function. Plan: Continue to progress core stabilization exercises as able. Initiate isometric bug holds. UNTIMED SERVICES: 0 MINUTES TIMED SERVICES: 40 MINUTES TOTAL TIMES: 40 MINUTES Elise Garza PTA 05/30/2023 1:13 PM documented in this encounter Plan of Treatment Upcoming Encounters Date Type Department Care Team ([facility] Contact Info) Description 06/03/2023 2:30 PM EDT Rehab Services Physical Therapy [address] [phone] Neetu Samuels, PT [address] [place] [address] 06/05/2023 2:30 PM EDT Rehab Services Physical Therapy [address] [phone] Elise Garza, OCCUPATIONAL MEDICINE PHYSICIAN [address] [place] [address] 06/10/2023 2:30 PM EDT Rehab Services Physical Therapy [address] [phone] Lyric Lynne, OCCUPATIONAL MEDICINE PHYSICIAN [address] [place] [address] 06/12/2023 2:30 PM EDT Rehab Services Physical Therapy [address] [phone] Elise Garza OCCUPATIONAL MEDICINE PHYSICIAN [address] [place] [address] 06/17/2023 2:30 PM EDT Rehab Services Physical Therapy [address] [phone] Lyric Lynne, OCCUPATIONAL MEDICINE PHYSICIAN [address] [place] [address] 06/19/2023 2:30 PM EDT Rehab Services Physical Therapy [facility] [address] [facility] [address] [place] [phone] Elise Garza, OCCUPATIONAL MEDICINE PHYSICIAN [address] [facility] [address] [place] [address] 08/12/2023 12:20 PM EDT Laboratory Laboratory Hem/Onc [facility] [place] [address] [place] [phone] [place] [address] [address] [place], [place] [phone] 08/12/2023 1:00 PM EDT Office Visit Hematology Oncology [facility] [place] [address] [place] [phone] Rafael Metcalf PA-C [address] [place], [place] [phone] 08/29/2023 12:00 PM EDT Office Visit [facility] [address] [place] [phone] Tami Upton MD [address] [place] [phone] Health Maintenance Due Date Last Done Comments [...] Advance Directives occurred with: Patient Care Teams Accounts Receivable Manager Relationship Specialty Start Date End Date Cory Ross PA-C [address] [place] [address] [place] [id number] PCP - General Physician Sole Stapler Welt 10/27/22 documented as of this encounter
--- OUTSIDE RECORDS SUMMARY | 2023-06-14 21:41 | External Medical Summary ---
Author Name Unknown Address Unknown Organization : Laboratory Report Ordering Provider Test Date Status MARGARETTE PURVISUKVITA 05/29/2023 14:14:03 Final Observation Date Value Abnormality Reference (Units ) Status Ethyl glucuronide [Mass/volume] in Urine 05/29/2023 14:14:03 >55331 Above high normal <500 (ng/mL) Final Ethyl sulfate [Mass/volume] in Urine 05/29/2023 14:14:03 >[id number] Above high normal <100 (ng/mL) Final This drug testing is for med ical treatment only.
Analysis was performed as non-forensic testing and
these results should be used only by healthcare
providers to render diagnosis or treatment, or to
monitor progress of medical conditions.
For assistance with interpreting these drug results,
please contact a [facility]
Specialist: [phone] ( ), M-F,
8am-6pm EST.
For additional information, please refer to
http://education.LikeMe.Net/faq/[email or web address]
(This link is being provided for informational/
educational purposes only.)
This test was developed and its analytical performance
characteristics have been determined by [facility]
[place], [place]. It has
not been cleared or approved by the U.S. Food and Drug
Administration. This assay has been validated pursuant
to the CLIA regulations and is used for clinical
purposes.

Test Performed at:
[facility]
[address] [facility]
[place], [place]
José Miguel Page M.D., Ph.D.,Director of Laboratories Performing Location
--- OUTSIDE RECORDS SUMMARY | 2023-06-14 21:41 | External Medical Summary | Summary of Care ---
Author Name Unknown Organization [facility] Address [address] [place] [address] Phone [phone] Care Team Providers Care Charge Entry Name Role Phone Cory Ross PA-C Primary Care Provider + [phone] Reason for Visit * Reason Comments Pain back Limited Range Of Motion Trunk, LEs Muscle Weakness Core, UE, LE * Evaluate & Treat - Unlimited Visits (Within 10 days (routine)) - Authorized Specialty Diagnoses / Procedures Referred By Danielle luong Referred To Contact Physical Medicine And Rehab Diagnoses Compression fracture of T12 vertebra, sequela Compression fracture of L1 vertebra, sequela Katherine Schmitt PA-C [address] [place] [address] Referral ID Status Reason Start Date Expiration Date Visits Requested Visits Authorized [id number] Authorized Specialty Services Required 05/09/2023 06/08/2023 8 8 Encounter Details Date Type Department Care Team (Latest Contact Info) Description 06/03/2023 2:30 PM EDT Rehab Services Physical Therapy [facility] [address] [phone] Neetu Samuels, PT [address] [place] [address] T12 compression fracture, sequela*; Compression fracture of L1 lumbar vertebra, sequela; Chronic midline low back pain without sciatica; Muscle tightness; Muscle weakness Allergies No known active allergiesdocumented as of this encounter (statuses as of 06/03/2023) Medications Medication Sig Dispensed Refills Start Date [...] as of this encounter (statuses as of 06/03/2023) Active Problems Problem Noted Date Diagnosed Date [...] as of this encounter (statuses as of 06/03/2023) Resolved Problems Problem Noted Date Diagnosed Date Resolved Date Alcohol withdrawal syndrome with complication 03/30/19 24 04/02/2023 Neutropenic fever 03/30/2023 04/02/2023 Acute alcoholic intoxication with complication 03/29/2023 03/30/2023 Leucopenia 03/29/2023 04/02/2023 Drug-induced liver injury 03/29/2023 Acute hyperactive alcohol withdrawal delirium 04/05/19 23 03/30/2023 documented as of this encounter (statuses as of 06/03/2023) Immunizations Name Administration Dates Next Due Pneumococcal [...] as of this encounter Progress Notes * Neetu Samuels, PT - 06/03/2023 2:46 PM EDT Outpatient Physical Therapy Daily Progress Note Physical Therapy [address] [address] Patient Name: Esdras Storey Date of : 1990 Age: [age] year old Date: 06/03/2023 Start of Care: 05/09/2023 Plan of Care Expiration Date: 06/20/2023 Visit Number: 6 Subjective: Patient reports 5/10 pain in lumbar region. He has been performing home exercises and feels that these are beneficial. However, he does not feel that he has had any functional improvements as of yet. He has insomnia and is hoping for a good night's sleep. Objective: Pt performed 50 minutes of core, thoracic/scapula, and LE strengthening as per below exercise chart. Performed today Exercise Sets/repetitions Part of HEP Comments N PROM of FARZANEH hips 10 minutes N Y SKTC 10x Y Y LTR 10x Y Y Hamstring Stretch 3 x 20'' Y Y Hooklying hip abd S/D 20x, green Y Y Bridges 20x, green Y Y SLR 2x5 Y Y Open Books 10x Y Y Seated forward flexion/diagonals 10x Y Y Cat/Camel 10x Y Y Seated Horizontal abd and diagonals 2x10, red Y Y Bilateral ER 20x, red N Y Standing mid/low row 20x.green N Y Barrel Stretch 3 x 15'' N Re-assessment (10 minutes): Trunk ROM: Flexion = 3cm fingertip to floor with central lumbar pain. Extension = 30 with central lumbar pain. Lateral Flexion = left WNL, right WNL; pain bilaterally. Rotation = left WNL, right WNL. Hamstring Flexibility: left 57, right 73. MMT: Hip: Flexion = left 4-4+/5, right 4-4+/5. Extension = left 4-4+/5, right 4-4+/5. Abduction = left 4+/5, right 4+/5. Knee: Extension = left 5/5, right 5/5. Flexion = left 5/5, right 4+/5. Ankle: DF = left 5/5, right 5/5. PF = left 5/5, right 5/5. BALANCE TESTS: Single Leg Stance: left 12sec, right 18sec. FUNCTIONAL OUTCOME MEASURES: Oswestry Low Back Disability Questionnaire, Revised - score 20/50 equals 40% impairment. Assessment: Pt is making good progress with trunk mobility, increasing for all motions. However he continues to have persistent pain, which is present during all trunk movements and all functional activities. He has increased 15 for L hamstring length and 23 for R, He demonstrates improvements in B LE strength, especially positive gains for B hip abduction. He still has difficulty performing SLR, which is due to low back pain. He needs constant verbal cues for proper performance of exercises and to keep motivated to continue. He reports 40% impairment in functional status, which is 18% improvement since initial evaluation. However, he has difficulty answering the questions because he pre fers not to travel or have a social life so these responses significantly improved and because he has insomnia and does not sleep well because of this, not necessarily low back pain. Pain continues to be his primary complaint. He would benefit from an MRI to determine etiology of pain. He will benefit from physical therapy to maximize trunk mobility and core stability, improve trunk/UE/LE strength, and improve functional status. Short Term Goals: 3 weeks Initiate Home Exercise Program - Met. Reduce pain to less than 6/10 at worst during daily functional activities - Not Met; inconsistent pain ratings. Improve trunk ROM to WNL for all motions with less than 4/10 pain - Not Met. Improve B LE strength by grade for weakened muscle groups - Met. Initiate core stabilization/LE strengthening program - Met. Prison Goals: 6 weeks Independent with Home Exercise Program - Ongoing. Reduce pain to less than 4/10 at worst during all functional activities - Ongoing. Improve B LE strength by 1 full grade for weakened muscle groups - Partially Met and Ongoing. Improve score on Oswestry functional scale to less than 35% impairment - Ongoing. Plan: Continue 2 times/week for 3 more weeks for progression of core stabilization, UE/scapular/LE strengthening exercises, balance/proprioceptive training, and functional/postural training. Initiateisometric bug holds. Progress toward achievement of LTGs. UNTIMED SERVICES: 10 MINUTES TIMED SERVICES: 50 MINUTES TOTAL TIMES: 60 MINUTES Neetu Samuels, PT 06/03/2023 2:46 PM documented in this encounter Plan of Treatment Upcoming Encounters Date Type Department Care Team ([facility] st Contact Info) Description 06/05/2023 2:30 PM EDT Rehab Services Physical Therapy [address] [place] [address] [place] [phone] Elise Garza, REGULATORY ASSOCIATE [address] [place] [address] 06/10/2023 2:30 PM EDT Rehab Services Physical [address] [phone] Lyric Lynne, [address] [address] 06/12/2023 2:30 PM EDT Rehab Services [address] [phone] Elise Garza, [address] [address] 06/17/2023 2:30 PM EDT Rehab Services [address] [phone] Lyric Lynne, [address] [address] 06/19/2023 2:30 PM EDT Rehab Services [address] [phone] Elise Garza, REGULATORY ASSOCIATE [address] [place] [address] 08/12/2023 12:20 PM EDT Laboratory Laboratory Hem/Onc [place] [address] [place] [address] [place] [address] [place] [address] 08/12/2023 1:00 PM EDT Office Visit Hematology Oncology [facility] [address] [place] [address] Rafael Metcalf PA-C [address] [place] [address] 08/29/2023 12:00 PM EDT Office Visit [address] [phone] Tami Upton MD [address] [place] [phone] Health Maintenance Due Date Last Done Comments Depression Screening 08/05/2015 08/04/2014 COVID-19 Vaccine (2022- season) 2022 DTaP,Tdap,and Td Vaccines (8 - [...] Advance Directives occurred with: Patient Care Teams Charge Entry Relationship Specialty Start Date End Date Cory Ross PA-C [address] [place] [address] PCP - General Physician Vending Route Servicer 10/27/22 documented as of this encounter
--- OUTSIDE RECORDS SUMMARY | 2023-06-14 21:41 | External Medical Summary | Summary of Care ---
Author Name Unknown Organization [facility] Address [address] [place] [address] Phone [phone] Care Team Providers Care Wood Carving Lathe Operator Name Role Phone Cory Ross PA-C Primary Care Provider + [phone] Reason for Visit * Reason Comments Follow Up Encounter Details Date Type Department Care Team (Latest Contact Info) Description 05/29/2023 12:40 PM EDT Office Visit [address] [phone] Tami Upton MD [address] [place] [phone] Alcohol use disorder*; Other insomnia; Alcohol induced fatty liver; Mixed hyperlipidemia Allergies No known active allergiesdocumented as of this encounter (statuses as of 05/29/2023) Medications Medication Sig Dispensed Refills Start Date [...] as of this encounter (statuses as of 05/29/2023) Active Problems Problem Noted Date Diagnosed Date [...] as of this encounter (statuses as of 05/29/2023) Resolved Problems Problem Noted Date Diagnosed Date Resolved Date Alcohol withdrawal syndrome with complication 03/30/19 24 04/02/2023 Neutropenic fever 03/30/2023 04/02/2023 Acute alcoholic intoxication with complication 03/29/2023 03/30/2023 Leucopenia 03/29/2023 04/02/2023 Drug-induced liver injury 03/29/2023 Acute hyperactive alcohol withdrawal delirium 04/05/19 23 03/30/2023 documented as of this encounter (statuses as of 05/29/2023) Immunizations Name Administration Dates Next Due Pneumococcal Conjugate Vaccine, 20-valent (Prevn ar20) 01/31/2023 Seasonal Influenza, PF, 6 M & above, IM , (FluLaval or Fluzone) 11/24/2022 TDAP (age 10 and older)(Boostrix) 01/31/2023 TDAP (age 11 and older)(Adacel) 08/08/2011 documented as of this encounter Social History Tobacco Use Types Packs/Day Years Used Date Smoking Tobacco: Every Day Cigarettes Smokeless Tobacco: Never Tobacco Cessation:Ready to Q uit: No; Counseling Given: Yes Alcohol Use Standard Drinks/Week Comments Yes 0 [...] on file documented as of this encounter Last Filed Vital Signs Vital Sign Reading Time Taken Comments Blood Pressure 150/98 05/29/2023 12:32 PM EDT Pulse 108 05/29/2023 12:32 PM EDT Temperature 36.6 C (97.9 F) 05/29/2023 12:32 PM E DT Respiratory Rate 20 05/29/2023 12:32 PM EDT Oxygen Saturation 98% 05/29/2023 12:32 PM EDT Inhaled Oxygen Concentration - - Weight 93.9 kg (207 lb) 05/29/2023 12:32 PM EDT Height - - Body Mass Index 30.57 05/13/2023 9:55 AM EDT documented in this encounter Progress Notes * Tami Upton MD - 05/29/2023 1:59 PM EDT Images from the original note were not included. History of Present Illness Esdras Storey is a 32 year old male with alcohol use disorder, anxiety, insomnia, bipolar disorder, hepatic steatosis, prior T12 and L1 compression fractures, tobacco use that presents for Follow Up Presents today to discuss labs completed at [facility]. Lipids were significantly elevated - at last checkone year ago they actually looked fairly good. No FH of hyperlipidemia or cardiovascular disease. LFTs continue to slowly trend down for acute liver injury while hospitalized. Platelets have normalized. Today he tells me he has been working on eating better and exercising. He is not worried about the cholesterol and feels he can get it improved with lifestyle changes. He continues to struggle significantly with insomnia - which has driven him back to having a few drinks per day. Last week was drinking enough again to feel withdrawal symptoms - now cut down this week. He is seeing [facility] again today. Feels his insomnia is what drives him to drink. Seeing psych at [facility]. Physical Exam Vitals: 05/29/23 1232 Temp: 36.6 C (97.9 F) Pulse: 108 Resp: 20 SpO2: 98% BP: 150/98 Physical Exam Vitals and nursing note reviewed. Constitutional: General: He is not in acute distress. Appearance: He is not toxic-appearing. HENT: Head: Normocephalic and atraumatic. Nose: Nose normal. Eyes: Conjunctiva/sclera: Conjunctivae normal. Cardiovascular: Rate and Rhythm: Normal rate. Pulmonary: Effort: Pulmonary effort is normal. No respiratory distress. Musculoskeletal: General: No signs of injury. Neurological: General: No focal deficit present. Mental Status: He is alert and oriented to person, place, and time. Mental status is at baseline. Psychiatric: Comments: Frustrated I have reviewed the following results: CMP, Lipid Panel, Hemoglobin A1C, and CBC Assessment and Plan Alcohol use disorder Has resumed drinking again, mainly to self-treat his insomnia. Seeing [facility] this afternoon. Other insomnia Persistent despite current therapy. Seeing psychiatry. Will route to them as FYI that this continues to be his biggest complaint for any recommendations Alcohol induced fatty liver LFTs improving, continue to work with [facility] for abstinence Mixed hyperlipidemia Less likely familial as lipids in 11/2022 were actually fairly normal. Now elevated with significantalcohol use, weight gain, and antipsychotic use. He is motivated to try lifestyle changes first. Declined medication. Repeat in 6 months to 1 year. Wrap-Up Follow Up: Return in about 3 months (around 08/29/2023) for Return with Physician. | For: Return with Physician Time: I spent a total of 20-29 minutes (exact time 22 mins) on the date of service in preparation, delivery, and documentation of the care provided to Esdras Storey excluding any time spent in the performance of separately billed services. documented in this encounter Nursing Notes * Titus Young LPN - 05/29/2023 12:36 PM EDT The patient has been properly identified by confirmation of name and date of . Pt here for follow up on labs. Elevated cholesterol. documented in this encounter Plan of Treatment Upcoming Encounters Date Type Department Care Team ([facility] st Contact Info) Description 05/30/2023 1:00 PM EDT Rehab Services Physical [address] [phone] Eilse Garza, [address] [address] 06/03/2023 2:30 PM EDT Rehab Services Physical Therapy [address] [phone] Neetu Samuels, PT [address] [place] [address] 06/05/2023 2:30 PM EDT Rehab Services Physical Therapy [address] [phone] Elise Garza, [address] [address] 06/10/2023 2:30 PM EDT Rehab Services Physical [address] [phone] Lyric Lynne, [address] [address] 06/12/2023 2:30 PM EDT Rehab Services Physical Therapy [address] [phone] Elise Garza, [address] [address] 06/17/2023 2:30 PM EDT Rehab Services Physical [address] [phone] Lyric Lynne, [address] [address] 06/19/2023 2:30 PM EDT Rehab Services [address] [phone] Elies Garza, [address] [address] 08/12/2023 12:20 PM EDT Laboratory Laboratory Hem/Onc [facility] [address] [place] [phone] [place] [address] [address] [place] [address] 08/12/2023 1:00 PM EDT Office Visit Hematology Oncology [facility] [address] [place] [address] Rafael Metcalf PA-C [address] [place] [address] 08/29/2023 12:00 PM EDT Office Visit [address] [phone] Tami Upton MD [address] [place] [phone] Health Maintenance Due Date Last Done [...] as of this encounter Visit Diagnoses Diagnosis Alcohol use disorder- Primary Other insomnia Alcohol induced fatty liver Alcoholic fatty liver Mixed hyperlipidemia documented in this encounter Advance Directives Latest Code Status on File Code Status Date Activated Date Inactivated Comments Full Code 03/29/2023 1:43 PM 04/02/2023 2:03 PM This order reflects the patients wishes and were consensually agreed upon. Question Answer Comments Discussion of Advance Directives occurred with: Patient Care Teams Wood Carving Lathe Operator Relationship Specialty Start Date End Date Cory Ross PA-C [address] [place] [address] PCP - General Physician Operator Receptionist 10/27/22 documented as of this encounter"
--- OUTSIDE RECORDS SUMMARY | 2023-06-14 21:41 | External Medical Summary ---
Author Name Unknown Address Unknown Organization [id number]:LABORATORY [facility] - [facility] [address] [facility] [address] [facility] [address] Laboratory Report Ordering Provider Test Date Status PAYTON CHIU 05/29/2023 14:14:03 Final Cutoff Concentrations:
Drug Level
Amphetamines 500 ng/mL
Benzodiazepines 100 ng/mL
Cannabinoids 50 ng/mL
Cocaine Metabolite 150 ng/mL
Fentanyl 1 ng/mL
Hydrocodone / Hydromorphone 300 ng/mL
Methadone Metabolite 100 ng/mL
Morphine / Codeine 300 ng/mL
Oxycodone / Oxymorphone 100 ng/mL

Screening results are presumptive and can only be used for medical purposes. Confirmatory testing is available upon request. Observation Date Value Abnormality Reference (Units ) Status Amphetamines, Urine screen 05/29/2023 14:14:03 Negative Negative Final Benzodiazepines, Urine screen 05/29/2023 14:14:03 Negative Negative Final Cannabinoids, Urine screen 05/29/2023 14:14:03 Positive Abnormal Negative Final Cocaine Metabolite, Urine screen 05/29/2023 14:14:03 Negative Negative Final fentaNYL [Presence] in Urine by Screen method 05/29/2023 14:14:03 Negative Negative Final HYDROcodone [Presence] in Urine by Screen method 05/29/2023 14:14:03 Negative Negative Final 2-Qkzdbjkrim-2,5-Dimeth yl-3,3-Diphenylpyrrolid ine (EDDP) [Presence] in Urine 05/29/2023 14:14:03 Negative Negative Final Opiates, Urine screen 05/29/2023 14:14:03 Negative Negative Final oxyCODONE [Presence] in Urine by Screen method 05/29/2023 14:14:03 Negative Negative Final Performing Location LABORATORY [facility] - [address] [facility] [address] [facility] [address]
--- OUTSIDE RECORDS SUMMARY | 2023-06-14 21:41 | External Medical Summary | Summary of Care ---
Author Name Unknown Organization [facility] Address [address] [place] [address] Phone [phone] Care Team Providers Care Litigation Assistant Name Role Phone Cory Ross PA-C Primary Care Provider + [phone] Reason for Visit * Reason Onset Date Comments Information 05/29/2023 Encounter Details Date Type Department Care Team ([facility] st Contact Info) Description 05/29/[address] [phone] Tami Upton MD [address] [place] [phone] Information Allergies No known active allergiesdocumented as of [...] morning. 30 Tablet 2 04/03/2023 07/02/2023 Active documented as of this encounter (statuses as of 05/29/2023) Active Problems Problem Noted Date Diagnosed Date Alcohol dependence, continuous 04/02/2023 History of Lyme [...] Tobacco: Never Alcohol Use Standard Drinks/Week Comments Not Currently 0 (1 standard drink = 0.6 oz pur e alcohol) Denies 05/13/23 Hunger Vital Sign Answer Date Recorded Within [...] on file documented as of this encounter Miscellaneous Notes * Telephone Encounter - Arie Wadsworth PHARM Tech - 05/29/2023 9:07 AM EDT Pt calling to confirm appointment time. Pt verbalized understanding of time. Thank you, Arie Wadsworth Senior Biostatistician/Group Leader [facility]) 05/29/2023,9:08 AM documented in this encounter Plan of Treatment Upcoming Encounters Date Type Department Care Team ([facility] Contact Info) Description 05/29/2023 12:40 PM EDT Office Visit Family [address] [phone] Tami Upton MD [address] [place] [phone] 05/30/2023 1:00 PM EDT Rehab Services Physical Therapy [address] [place] [phone] Elise Garza PTA [address] [place] [address] [address] [place] [address] 06/03/2023 2:30 PM EDT Rehab Services Physical Therapy [address] [place] [phone] Neetu Samuels, PT [address] [place] [address] 06/05/2023 2:30 PM EDT Rehab Services [facility] Therapy [address] [phone] Elise Garza, SOLAR BUSINESS DEVELOPER [address] [place] [address] 06/10/2023 2:30 PM EDT Rehab Services [address] [phone] Lyric Lynne, SOLAR BUSINESS DEVELOPER [address] [place] [address] 06/12/2023 2:30 PM EDT Rehab Services [facility] Therapy [address] [phone] Elise Garza, SOLAR BUSINESS DEVELOPER [address] [place] [address] 06/17/2023 2:30 PM EDT Rehab Services [address] [phone] Lyric Lynne, SOLAR BUSINESS DEVELOPER [address] [place] [address] 06/19/2023 2:30 PM EDT Rehab Services [address] [phone] Elise Garza, SOLAR BUSINESS DEVELOPER [address] [place] [address] 08/12/2023 12:20 PM EDT Laboratory Laboratory [facility] [address] [place] [address] Kenneth, [facility] Med [address] [place] [address] 08/12/2023 1:00 PM EDT Office Visit Hematology Oncology [facility], Kenneth [address] [place] [address] Rafael Metcalf PA-C [address] [place] [address] Health Maintenance Due Date Last Done Comments [...] Not on filedocumented as of this encounter Advance Directives Latest Code Status on File Code Status Date Activated Date Inactivated Comments Full Code 03/29/2023 1:43 PM 04/02/2023 2:03 PM This order reflects the patients wishes and were consensually agreed upon. Question Answer Comments Discussion of Advance Directives occurred with: Patient Care Teams Litigation Assistant Relationship Specialty Start Date End Date Cory Ross PA-C [address] [place] [address] PCP - General Physician Radar Systems Engineer 10/27/22 documented as of this encounter
--- OUTSIDE RECORDS SUMMARY | 2023-06-14 21:42 | External Medical Summary ---
Author Name Unknown Address Unknown Organization [id number]:LABORATORY [facility] - [address] [place] [address] Laboratory Report Ordering Provider Test Date Status APPLELINDAR 05/13/2023 10:20:54 Final Observation Date Value Abnormality Reference (Units ) Status Triglyceride 05/13/2023 10:20:54 192 Above high normal <=174 (mg/dL) Final Triglyceride Reference Range s (mg/dL):
<150 Acceptable
150-174 Borderline high
175-499 High
>=500 Very high Cholesterol 05/13/2023 10:20:54 250 Above high normal <200 (mg/dL) Final Total Cholesterol Reference Ranges (mg/dL):
<200 Desirable
200-239 Borderline high
>=240 High HDL 05/13/2023 10:20:54 32 Below low normal >39 (mg/dL) Final HDL Cholesterol Reference Ra nges (mg/dL):
>=60 High (Desirable)
<50 Low (Undesirable) For Females
<40 Low (Undesirable) For Males NON-HDL CHOLESTEROL 05/13/2023 10:20:54 218 Above high normal <=159 (mg/dL) Final Non-HDL Cholesterol Referenc e Range (mg/dL):
<100 Target level for high risk ASCVD patient
<130 Optimal for general population
130-159 Near optimal for general population
160-189 Borderline High
190-219 High
>=220 Very High LDL, (calculated) 05/13/2023 10:20:54 180 Above high n ormal <=129 (mg/dL) Final LDL Cholesterol Reference Ra nges (mg/dL):
<70 Target level for high risk ASCVD patient
<100 Optimal for general population
100-129 Near optimal for general population
130-159 Borderline high
160-189 High
>=190 Very high Performing Location LABORATORY [facility] [place] - [address] [facility] [address]
--- OUTSIDE RECORDS SUMMARY | 2023-06-14 21:42 | External Medical Summary ---
Author Name Unknown Address Unknown Organization K01:LABORATORY [facility] - [address] [place] [address] Laboratory Report Ordering Provider Test Date Status PAYTON CHIU 05/13/2023 10:20:54 Final Observation Date Value Abnormality Reference (Units ) Status HbA1C 05/13/2023 10:20:54 5.3 4.0-5.6 (% ) Final The use of HbA1c to monitor glycemic status is based on normal hemoglobin and HbA composition. This test should not be used in patients with abnormal hemoglobin that affects the half life of the red blood cell or the in vivo glycation rates. Glucose, estimated average 05/13/2023 10:20:54 105 <126 (mg/dL) Final Performing Location LABORATORY [facility] - [address] [place] [address]
--- OUTSIDE RECORDS SUMMARY | 2023-06-14 21:42 | External Medical Summary | Summary of Care ---
Author Name Unknown Organization [facility] Address [address] [place] [address] Phone [phone] Care Team Providers Care Heel Scorer Name Role Phone Cory Ross PA-C Primary Care Provider + [phone] Reason for Referral * Evaluate & Treat - Unlimited Visits (Within 10 days (routine)) - Pending Review Specialty Diagnoses / Procedures Referred By Danielle luong Referred To Contact Physical Therapy / Physical Medicine And Rehab Diagnoses Compression fracture of T12 vertebra, sequela Compression fracture of L1 vertebra, sequela Randolph Holland PA-C [address] [place] [address] Referral ID Status Reason Start Date Expiration Date Visits Requested Visits Authorized [id number] Pending Review Specialty Services Required 04/25/2023 999 999 Question Answer Referral Priority Within 10 days (routine) Where should this appointment be scheduled? [facility] Reason for Visit * Reason Onset Date Comments Referral 04/24/2023 Encounter Details Date Type Department Care Team ([facility] Contact Info) Description 04/24/2023 Telephone [facility] [address] [place] [phone] Cory Ross PA-C [address] [place] [phone] Referral Allergies No known active allergiesdocumented as of this encounter (statuses as of 04/26/2023) Medications Medication Sig Dispensed Refills Start Date End Date Status Acetaminophen 500 MG Oral Tablet (Tylenol Extra Strength) Take 1 Tablet by mouth every 6 hours as needed. 0 Active Acamprosate Calcium 333 MG Oral Tablet Delayed Release (Campral) Take 2 Tablets by mouth in the morning and 2 Tablets at noon and 2 Tablets before bedtime. 180 Tablet 2 04/03/2023 4 Active Thiamine HCl 100 MG Oral Tablet (vitamin B-1) Take 1 Tablet by mouth in the morning. 30 Tablet 2 04/03/2023 4 Active Folic Acid 1 MG Oral Tablet Take 1 Tablet by mouth in the morning. 30 Tablet 2 04/03/2023 4 Active LORazepam 1 MG Oral Tablet (Ativan) Take 1 Tablet by mouth 3 times a day as needed for Anxiety or Sleep for up to 7 days. 21 Tablet 0 04/03/2023 4 Discontinued LORazepam 0.5 MG Oral Tablet (Ativan)Indications :Alcohol dependence with unspecified alcohol-induced disorder (HCC) Take 1 Tablet by mouth at bedtime for 4 days. 4 Tablet 0 04/17/2023 4 Discontinued Naltrexone 380 MG Intramuscular Suspension Reconstituted (Vivitrol) Inject 380 mg into a large muscle every month for 11 doses. 1 Each 12 04/22/2023 4 Discontinued documented as of this encounter (statuses as of 04/26/2023) Active Problems Problem Noted Date Diagnosed Date [...] as of this encounter (statuses as of 04/26/2023) Resolved Problems Problem Noted Date Diagnosed Date Resolved Date Alcohol withdrawal syndrome with complication 03/30/1904/02/2023 Neutropenic fever 03/30/2023 04/02/2023 Acute alcoholic intoxication with complication 03/29/2023 03/30/2023 Leucopenia 03/29/2023 04/02/2023 Drug-induced liver injury 03/29/2023 Acute hyperactive alcohol withdrawal delirium 04/05/1903/30/2023 documented as of this encounter (statuses as of 04/26/2023) Immunizations Name Administration Dates Next Due DTaP Dipth/Tet/Acell Pertussis (Infanrix), Peds 08/22/1993,02/19/1990,03/27/1989,1988,1988 HIB PRP-T, 4 dose (ActHib) 11/27/1989 Hepatitis B, 0-19 yrs 10/11/1998,03/21/1998,01/02 MMR - Measles/Mumps/Rubella Vaccine 08/22/1993,1 OPV - Polio Virus Vaccine (Oral) 994,02/19/1990,1988,1988 Pneumococcal Conjugate Vacci ne, 20-valent (Yzrzglu10) 01/31/2023 Seasonal Influenza, PF, 6 M & above, IM , (FluLaval or Fluzone) 11/24/2022 TB Angelica Test 06/10/1989 TD - Tetanus/Diptheria (ADULT) 07/08/2003 TDAP (age 10 and older)(Boostrix) 01/31/2023 TDAP (age 11 and older)(Adacel) 08/08/2011 documented as of this encounter Social History Tobacco Use Types Packs/Day Years Used Date Smoking Tobacco: Every Day Cigarettes Smokeless Tobacco: Never Alcohol Use Standard Drinks/Week Comments Not Currently 0 (1 standard drink = 0.6 oz pur e alcohol) Denies since 2 weeks ago Hunger Vital Sign Answer Date Recorded Within [...] as of this encounter Miscellaneous Notes * Addendum Note - Randolph Holland PA-C - 04/25/2023 4:45 PM ESTAddended by: RANDOLPH HOLLAND on: 04/25/2023 04:45 PM Modules accepted: Orders * Telephone Encounter - Randolph Holland PA-C - 04/25/2023 4:45 PM EST Referral placed. * Telephone Encounter - Evangelina Aviles OSA - 04/25/2023 3:52 PM EST Phy therapy needs new referral says only good for 30 days please put one in and then I will have them set up apt for him I did not realize orders were only good for 30 days thanks * Telephone Encounter - Evangelina Aviles OSA - 04/25/2023 10:54 AM EST Called pt lmom with # to call for therapy [phone] x [phone] * Telephone Encounter - Randolph Holland PA-C - 04/24/2023 3:39 PM EST PT referral active from 02/12/23. * Telephone Encounter - Maira Torres LPN - 04/24/2023 3:05 PM EST PCP out of office, please advise. * Telephone Encounter - Rosita Bassett OSA - 04/24/2023 2:41 PM EST Has the patient been seen for this problem? (Y/N)?: yes If No, an appt needs to be scheduled before a referral will be placed (exception: proceed with referral request if referral request is for a yearly routine appointment with speciality) Patient Name: Esdras Storey Patient Primary care provider: Cory Ross PA-C Does this need to be an insurance referral (Y/N)?: yes If Yes, does the insurance referral need to be placed into the [employer] system? Name of preferred specialist: Physical Therapy Type of specialist: Physical Therapist Location of specialist: [facility] Phone #: n/a Specialist's Fax #: n/a Reason for visit: Chronic back pain Date of visit: n/a documented in this encounter Plan of Treatment Upcoming Encounters Date Type Department Care Team ([facility] st Contact Info) Description 05/09/2023 11:30 AM EST Rehab Services Physical Therapy [address] [place] [address] Neetu Samuels, PT [address] [place], [place] [address] [place] [address] Scheduled Referrals Name Type Priority Associated Diagnoses Orde r Schedule PHYSICAL THERAPY REFERRAL OP Referral Within 10 days (routine) Compression fracture of T12 vertebra, sequela Compression fracture of L1 vertebra, sequela Ordered: 04/25/2023 Health Maintenance Due Date Last Done Comments Depression Screening 08/05/2015 08/04/2014 COVID-19 Vaccine (24 season) 2022 DTaP,Tdap,and Td Vaccines (8 - [...] as of this encounter Visit Diagnoses Diagnosis Compression fracture of T12 vertebra, sequela- Primary Compression fracture of L1 vertebra, sequela documented in this encounter Advance Directives Latest Code Status on File Code Status Date Activated Date Inactivated Comments Full Code 03/29/2023 1:43 PM 04/02/2023 2:03 PM This order reflects the patients wishes and were consensually agreed upon. Question Answer Comments Discussion of Advance Directives occurred with: Patient Care Teams Heel Scorer Relationship Specialty Start Date End Date Cory Ross PA-C [address] [place] [phone] PCP - General Physician Gas Pump Attendant 10/27/22 documented as of this encounter
--- OUTSIDE RECORDS SUMMARY | 2023-06-14 21:42 | External Medical Summary ---
Author Name Unknown Address Unknown Organization K01:[facility]ATORY [facility] - [facility] [address] [facility] [address] Laboratory Report Ordering Provider Test Date Status LINDA CHIUR 05/13/2023 09:51:02 Final Cutoff Concentrations:
Drug Level
Amphetamines 500 [...] Reference (Units ) Status Amphetamines, Urine screen 05/13/2023 09:51:02 Negative Negative Final Benzodiazepines, Urine screen 05/13/2023 09:51:02 Negative Negative Final Cannabinoids, Urine screen 05/13/2023 09:51:02 Positive Abnormal Negative Final Cocaine Metabolite, Urine screen 05/13/2023 09:51:02 Negative Negative Final fentaNYL [Presence] in Urine by Screen method 05/13/2023 09:51:02 Negative Negative Final HYDROcodone [Presence] in Urine by Screen method 05/13/2023 09:51:02 Negative Negative Final 6-Sacdwltqiu-7,5-Dimeth yl-3,3-Diphenylpyrrolid ine (EDDP) [Presence] in Urine 05/13/2023 09:51:02 Negative Negative Final Opiates, Urine screen 05/13/2023 09:51:02 Negative Negative Final oxyCODONE [Presence] in Urine by Screen method 05/13/2023 09:51:02 Negative Negative Final Performing Location [facility]ORY [facility] - [address] [facility] [address]
--- OUTSIDE RECORDS SUMMARY | 2023-06-14 21:42 | External Medical Summary | Summary of Care ---
Author Name Unknown Organization [facility] Address [address] [facility] [address] Phone [phone] Care Team Providers Care Retail Custodial Associate Name Role Phone Cory Ross PA-C Primary Care Provider + [phone] Reason for Visit * Reason Comments Pain LS Limited Range Of Motion LS Muscle Weakness LS * Evaluate & Treat - Unlimited Visits (Within 10 days (routine)) - Authorized Specialty Diagnoses / Procedures Referred By Danielle luong Referred To Contact Physical Medicine And Rehab Diagnoses Compression fracture of T12 vertebra, sequela Compression fracture of L1 vertebra, sequela Katherine Schmitt PA-C [address] [place] [address] Referral ID Status Reason Start Date Expiration Date Visits Requested Visits Authorized [id number] Authorized Specialty Services Required 05/09/2023 06/08/2023 8 8 Encounter Details Date Type Department Care Team (Latest Contact Info) Description 05/17/2023 10:00 AM EDT Rehab Services Physical Therapy [address] [phone] Elise Garza, JESSY [address] [place] [phone] T12 compression fracture, sequela*; Compression fracture of L1 lumbar vertebra, sequela; Chronic midline low back pain without sciatica; Muscle tightness; Muscle weakness Allergies No known active allergiesdocumented as of this encounter (statuses as of 05/17/2023) Medications Medication Sig Dispensed Refills Start Date [...] morning. 30 Tablet 2 04/03/2023 07/02/2023 Active Paliperidone ER 3 MG Oral Tablet Extended Release 24 Hour (Invega) Take 1 Tablet by mouth in the morning for 7 days. 7 Tablet 0 05/13/2023 05/20/2023 Active documented as of this encounter (statuses as of 05/17/2023) Active Problems Problem Noted Date Diagnosed Date [...] as of this encounter (statuses as of 05/17/2023) Resolved Problems Problem Noted Date Diagnosed Date Resolved Date Alcohol withdrawal syndrome with complication 03/30/19 24 04/02/2023 Neutropenic fever 03/30/2023 04/02/2023 Acute alcoholic intoxication with complication 03/29/2023 03/30/2023 Leucopenia 03/29/2023 04/02/2023 Drug-induced liver injury 03/29/2023 Acute hyperactive alcohol withdrawal delirium 04/05/19 23 03/30/2023 documented as of this encounter (statuses as of 05/17/2023) Immunizations Name Administration Dates Next Due Pneumococcal [...] this encounter Progress Notes * Elise Garza, MAPPING PILOT - 05/17/2023 10:30 AM EDT Outpatient Physical Therapy Daily Progress Note Physical Therapy [address] [phone] Patient Name: Esdras Storey Date of : 1990 Age: [age] year old Date: 05/17/2023 Start of Care: 05/09/2023 Plan of Care Expiration Date: 06/20/2023 Visit Number: 2 Subjective: Patient reports continued significant low back pain that has been bothering him for years. Pt states he has increased pain with all activity such as lifting, walking, and squatting. Pt states he has little relief in sxs throughout the day. Pt notes he has been working on his exercises at home. Objective: Patient agreeable to strengthening and stretching of the LEs. Total TE Time: 38 minutes Performed today Exercise Sets/repetitions Part of HEP Comments Y PROM of FARZANEH hips 10 minutes N Y SKTC 10x Y Y LTR 10x Y Y Hooklying hip abd 10x, green N Y Open Books 5x Y Treatment completed under the direct supervision of Neetu Samuels PT. Assessment: Patient presents to PT with chronic low back and thoracic pain. Pt presents late for appt and had a loud, rambunctious behavior today. Pt had tendency to swear during appt and was asked to stop swearing throughout treatment. This is a different behavior/attitude that the patient presented with on IE. Pt received passive stretching to the hips and had increased pain with this. Pt requested that therapist continue to stretch him until he screamed but this therapist would not do that. This therapist stretched pt to tolerance and educated the pt that he should not have pain during PROM he should just feel stretching. Pt completed exercises listed above. Pt had a difficult time unders tanding exercises and required frequent cuing to complete correctly. Pt had spastic movements during session and had a difficult time staying still which was also abnormal compared to IE. Pt did not have any change in sxs near the end of treatment. Pt was encouraged to continue working on exercisesat home. Plan: Continue to progress core stabilization exercises as able. UNTIMED SERVICES: 0 MINUTES TIMED SERVICES: 38 MINUTES TOTAL TIMES: 38 MINUTES Elise Garza PTA 05/17/2023 10:30 AM documented in this encounter Plan of Treatment Upcoming Encounters Date Type Department Care Team ([facility] Contact Info) Description 05/20/2023 2:30 PM EDT Rehab Services Physical Therapy [address] [phone] Bakaj, Elise K, [address] [place] [address] 05/22/2023 2:30 PM EDT Rehab Services Physical Therapy [address] [place] [phone] Elise Garza, [address] [place] [address] 05/27/2023 4:00 PM EDT Rehab Services Physical [address] [place] [phone] Lyric Lynne, [address] [place] [address] 05/29/2023 2:30 PM EDT Rehab Services [address] [place] [phone] Elise Garza, [address] [place] [address] 06/03/2023 2:30 PM EDT Rehab Services [address] [place] [phone] Neetu Samuels, PT [address] [place] [address] 06/05/2023 2:30 PM EDT Rehab Services Physical [address] [place] [phone] Elise Garza, [address] [place] [address] 06/10/2023 2:30 PM EDT Rehab Services Physical [address] [place] [phone] Lyric Lynne, MAPPING PILOT [address] [place] [address] 06/12/2023 2:30 PM EDT Rehab Services Physical [address] [phone] Elise Garza, MAPPING PILOT [address] [place] [address] 06/17/2023 2:30 PM EDT Rehab Services Physical [address] [address] Lyric Lynne, [address] [address] 06/19/2023 2:30 PM EDT Rehab Services [address] [phone] Elise Garza, [address] [address] 08/12/2023 12:20 PM EDT Laboratory Laboratory Hem/Onc [place] [address] [place] [phone] [place], [place] [address] [place] [address] 08/12/2023 1:00 PM EDT Office Visit Hematology Oncology [facility] [address] [place] [phone] Rafael Metcalf PA-C [address] [place], [place] [phone] Health Maintenance Due Date Last Done Comments Depression Screening 08/05/2015 08/04/2014 COVID-19 Vaccine (1 - 2023-24 season) 2022 DTaP,Tdap,and Td Vaccines (8 - [...] Advance Directives occurred with: Patient Care Teams Retail Custodial Associate Relationship Specialty Start Date End Date Cory Ross PA-C [address] [place] [address] PCP - General Physician Chip Person 10/27/22 documented as of this encounter
--- OUTSIDE RECORDS SUMMARY | 2023-06-14 21:42 | External Medical Summary ---
Author Name Unknown Address Unknown Organization K01:LAB[facility]ATORY [place] - [address] [place] [address] Laboratory Report Ordering Provider Test Date Status ANGELO AMAYA 05/13/2023 10:20:54 Final Observation Date Value Abnormality Reference (Units ) Status BUN 05/13/2023 10:20:54 9 6-20 (mg/dL) Final Creatinine 05/13/2023 10:20:54 0.5 Below low normal 0.6-1.2 (mg/dL) Final Glomerular filtration rate/1.73 sq M.predicted [Volume Rate/Area] in Serum, Plasma or Blood by Creatinine-based formula (CKD-EPI) 05/13/2023 10:20:54 >90 >=60 (mL/min) Final eGFR is calculated based on the CKD-EPI 2020 equation SODIUM 05/13/2023 10:20:54 144 135-146 (m mol/L) Final Potassium 05/13/2023 10:20:54 4.3 3.5-5.1 (m mol/L) Final Cl 05/13/2023 10:20:54 106 98-107 (mm ol/L) Final CO2 05/13/2023 10:20:54 19 Below low normal 22- 32 (mmol/L) Final Anion gap 05/13/2023 10:20:54 19 Above high normal 7- 15 (mmol/L) Final Glucose 05/13/2023 10:20:54 95 70-120 (mg /dL) Final Albumin 05/13/2023 10:20:54 4.1 3.8-5.0 (g /dL) Final AST (Aspartate aminotransferase) 05/13/2023 10:20:54 201 Above high normal 10-50 (U/L) Final Result may be falsely elevat ed due to hemolysis. Alk Phos 05/13/2023 10:20:54 72 35-130 (U/ L) Final Bilirubin, Total 05/13/2023 10:20:54 0.8 <=1 .2 (mg/dL) Final Calcium 05/13/2023 10:20:54 9.2 8.4-10.2 ( mg/dL) Final Protein 05/13/2023 10:20:54 7.1 6.0-8.3 (g /dL) Final ALT (Alanine aminotransferase) 05/13/2023 10:20:54 154 Above high normal 10-50 (U/L) Final Performing Location LAB[facility]ATORY [place] - [address] [facility] [address]
--- OUTSIDE RECORDS SUMMARY | 2023-06-14 21:42 | External Medical Summary | Summary of Care ---
Author Name Unknown Organization [facility] Address [address] [place] [address] Phone [phone] Care Team Providers Care Conversion Developer Name Role Phone Cory Ross PA-C Primary Care Provider + [phone] Reason for Visit * Reason Onset Date Comments Referral 04/24/2023 Encounter Details Date Type Department Care Team ([facility] Contact Info) Description 04/24/[address] [phone] Cory Ross PA-C [address] [place] [phone] Referral Allergies No known active allergiesdocumented as of this encounter (statuses as of 04/25/2023) Medications Medication Sig Dispensed Refills Start Date [...] as of this encounter (statuses as of 04/25/2023) Active Problems Problem Noted Date Diagnosed Date [...] 01/31/2023 Cigarette smoker 11/24/2022 Compression fracture of T12 vertebra 08/09/2011 ADVANCE DIRECTIVE INFORMATION 03/08/2005 Overview: Not applicable (under age of 18) documented as of this encounter (statuses as of 04/25/2023) Resolved Problems Problem Noted Date Diagnosed Date Resolved Date Alcohol withdrawal syndrome with complication 03/30/19 24 04/02/2023 Neutropenic fever 03/30/2023 04/02/2023 Acute alcoholic intoxication with complication 03/29/2023 03/30/2023 Leucopenia 03/29/2023 04/02/2023 Drug-induced liver injury 03/29/2023 Acute hyperactive alcohol withdrawal delirium 04/05/1903/30/2023 Compression fracture of L1 lumbar vertebra 08/09/2011 03/29/2023 documented as of this encounter (statuses as of 04/25/2023) Immunizations Name Administration Dates Next Due DTaP Dipth/Tet/Acell Pertussis (Infanrix), Peds 08/22/1993,02/19/1990,03/27/1989,1988,1988 HIB PRP-T, 4 dose (ActHib) 11/27/1989 Hepatitis B, 0-19 yrs 10/11/1998,03/21/1998,01/02 MMR - Measles/Mumps/Rubella Vaccine 08/22/1993,1 OPV - Polio Virus Vaccine (Oral) 994,02/19/1990,1988,1988 Pneumococcal Conjugate Vacci ne, 20-valent ([id number]) 01/31/2023 Seasonal Influenza, PF, 6 M & [...] encounter Miscellaneous Notes * Telephone Encounter - Stefan Mary, ARLETH - 04/25/2023 3:52 PM EST Phy therapy [...] [phone] x 2 * Telephone Encounter - Katherine Schmitt PA-C - 04/24/2023 3:39 PM EST PT [...] referral need to be placed into the [employer] system? Name of preferred specialist: Physical Therapy Type of specialist: Physical Therapist Location of specialist: [facility] Phone #: n/a Specialist's Fax #: n/a Reason for visit: Chronic back pain Date of visit: n/a documented in this encounter Plan of Treatment Upcoming Encounters Date Type Department Care Team ([facility] st Contact Info) Description 05/09/2023 11:30 AM EST Rehab Services Physical Therapy [facility] [address] [place] [phone] Neetu Samuels, PT [address] [place] [address] Health Maintenance Due Date Last Done Comments [...] Advance Directives occurred with: Patient Care Teams Conversion Developer Relationship Specialty Start Date End Date Cory Ross PA-C [address] [place] [address] [place] [address] PCP - General Physician Punch Out Crew Member 10/27/22 documented as of this encounter
--- OUTSIDE RECORDS SUMMARY | 2023-06-14 21:42 | External Medical Summary | Summary of Care ---
Author Name Unknown Organization [facility] Address [address] [facility] [place] [place] [address] Phone [phone] Care Team Providers Care Cd Technician Name Role Phone Cory Ross PA-C Primary Care Provider + [phone] Reason for Referral * Evaluate & Treat - Unlimited Visits (Within 10 days (routine)) - Closed Specialty Diagnoses / Procedures Referred By Danielle luong Referred To Contact Physical Medicine And Rehab Diagnoses Compression fracture of T12 vertebra, sequela Compression fracture of L1 vertebra, sequela Tami Upton MD [address] [place] [phone] Referral ID Status Reason Start Date Expiration Date V isits Requested Visits Authorized [id number] Closed Specialty Services Required 02/12/[phone] Question Answer Referral Priority Within 10 days (routine) Where should this appointment be scheduled? [facility] Reason for Visit * Reason Onset Date Comments Pre Cert/Prior Auth 02/08/2023 P2p needed f or MRI T &L spine Encounter Details Date Type Department Care Team ([facility] Contact Info) Description 02/08/[address] [phone] Outpatient, Precert DO NOT CHANGE - JS Pre Cert/Prior Auth (P2p needed for MRI T ... Allergies No known active allergiesdocumented as of this encounter (statuses as of 05/10/2023) Medications Medication Sig Dispensed Refills Start Date End Date Status Acetaminophen 500 MG Oral Tablet (Tylenol Extra Strength) Take 1 Tablet by mouth every 6 hours as needed. 0 Active Gabapentin 100 MG Oral Capsule (Neurontin)Indica tions:Compression fracture of T12 vertebra, sequela,Compressi on fracture of L1 vertebra, sequela Take 1 Capsule by mouth in the morning and 1 Capsule at noon and 1 Capsule before bedtime. 90 Capsule 5 01/31/2023 04/02/2023 Discontinued ARIPiprazole 10 MG Oral Tablet (Abilify)Indicati ons:Mood disorder (HCC),Other insomnia Take 1 Tablet by mouth in the morning. 30 Tablet 5 01/31/2023 04/02/2023 Discontinued documented as of this encounter (statuses as of 05/10/2023) Active Problems Problem Noted Date Diagnosed Date [...] as of this encounter (statuses as of 05/10/2023) Resolved Problems Problem Noted Date Diagnosed Date Resolved Date Alcohol withdrawal syndrome with complication 03/30/19 24 04/02/2023 Neutropenic fever 03/30/2023 04/02/2023 Acute alcoholic intoxication with complication 03/29/2023 03/30/2023 Leucopenia 03/29/2023 04/02/2023 Drug-induced liver injury 03/29/2023 Acute hyperactive alcohol withdrawal delirium 04/05/19 23 03/30/2023 documented as of this encounter (statuses as of 05/10/2023) Immunizations Name Administration Dates Next Due Pneumococcal [...] drink = 0.6 oz pur e alcohol) Mild use Hunger Vital Sign Answer Date Recorded Within the past 12 months, y ou worried that your food would run out before you got the money to buy more. Never true 10/27/19 Within the past 12 months, t he [...] encounter Miscellaneous Notes * Telephone Encounter - Christie Valdovinos OSA - 02/12/2023 10:45 AM EST Patient would like to schedule PT at [facility] please contact for scheduling * Telephone Encounter - Tami Upton MD - 02/12/2023 9:09 AM EST Please cancel MRI. PT referral placed - please assist in scheduling PT. Thanks * Telephone Encounter - Tamara Vargas OSA - 02/11/2023 8:24 AM EST OK. Do you want me to call scheduling then and tell them to cancel him for tomorrow, since he agreed to do PT? Or do you want to tell scheduling to cancel him for tomorrow? Cristal Mcdonald * Telephone Encounter - Mel Garcia LPN - 02/08/2023 1:55 PM EST Called and spoke with patient and he is agreeable to PT. * Telephone Encounter - Tami Upton MD - 02/08/2023 9:39 AM EST MRI is denied because patient has not completed 6 weeks of PT in the last 3 months - could you please notify patient that in order to have his MRI approved he will need to complete 6 weeks of PT. If he is in agreement, I can place the referral. * Telephone Encounter - Tamara Vargas OSA - 02/08/2023 9:17 AM EST The MRI T & L SPINE requested for Esdras Storey is currently awaiting Zqme-ro-Cwsn Review with [employer]. We kindly request a Nurse, VINAY, CARIDAD, or Physician, call and referencetracking #[id number] to engage in a discussion with a Physician Reviewer to obtain the necessary authorization. PT IS COMING IN ON 02/12/23 Based on the clinical documentation provided, the approval of the requested imaging study is contingent upon the completion of a Uxoa-tt-Somi Review. We urge you to initiate this review process promptly, adhering to any specified timeframes, or at your earliest convenience if no specific timeframe has been provided. In the event that a Rhrb-jz-Dmsz Review cannot be conducted, we kindly request that a Clinician contact the patient to discuss and propose an alternative treatment plan. Your prompt attention to thismatter is greatly appreciated. Denial Rationale: This is denying cause the pt has not de luna 6 weeks of PT in the last 3 months. Does not meet medical necessity. ARLETH Mccullough 02/08/2023, 9:18 AM documented in this encounter Plan of Treatment Upcoming Encounters Date Type Department Care Team ([facility] st Contact Info) Description 05/15/2023 2:30 PM EDT Rehab Services Physical Therapy [address] [place] [address] Elise Garza, [address] [place] [address] 05/17/2023 10:00 AM EDT Rehab Services Physical Therapy [address] [place] [address] Elise Garza, LEGAL SERVICES PROFESSIONAL [address] [place], [place] [address], [place] [address] 05/20/2023 2:30 PM EDT Rehab Services Physical Therapy [place] [address] [place] [address] Elise Garza, LEGAL SERVICES PROFESSIONAL [address] [place] [address] [place] [address] 05/22/2023 2:30 PM EDT [facility]hab Services [facility] [address] [place] [place] [address] [place] [address] Elise Garza, [address] [place] [address] 05/27/2023 4:00 PM EDT Rehab Services Physical Therapy [address] [place] [phone] Lyric Lynne, LEGAL SERVICES PROFESSIONAL [address] [place] [address] 05/29/2023 2:30 PM EDT Rehab Services Physical Therapy [address] [address] Elise Garza, LEGAL SERVICES PROFESSIONAL [address] [place] [address] 06/03/2023 2:30 PM EDT Rehab Services [address] [phone] Neetu Samuels, [address] [address] 06/05/2023 2:30 PM EDT Rehab Services [address] [phone] Elise Garza, LEGAL SERVICES PROFESSIONAL [address] [place] [address] 06/10/2023 2:30 PM EDT Rehab Services [address] [phone] Lyric Lynne, [address] [address] 06/12/2023 2:30 PM EDT Rehab Services [address] [phone] Elise Garza, [address] [address] 06/17/2023 2:30 PM EDT Rehab Services Physical [address] [address] Lyric Lynne, LEGAL SERVICES PROFESSIONAL [address] [place] [address] 06/19/2023 2:30 PM EDT Rehab Services Physical Therapy [facility] [address] [facility] [address] [place] [address] Elise Garza, LEGAL SERVICES PROFESSIONAL 68 [facility] [address] [place] [address] 08/12/2023 12:20 PM EDT Laboratory Laboratory Hem/Onc [place] [address] [place] [phone] [place], [place] [address] [address] [place] [address] 08/12/2023 1:00 PM EDT Office Visit Hematology Oncology [facility] [place] [address] [place] [phone] Rafael Metcalf PA-C [address] [place], [place] [phone] Scheduled Referrals Name Type Priority Associated Diagnoses Orde r Schedule PHYSICAL THERAPY REFERRAL OP Referral Within 10 days (routine) Compression fracture of T12 vertebra, sequela Compression fracture of L1 vertebra, sequela Ordered: 02/12/2023 Health Maintenance Due Date Last Done Comments [...] L1 vertebra, sequela documented in this encounter Additional Health Concerns Infection Onset Date Last Indicated Resolved Time Respiratory Rule-Out 03/29/2023 03/29/2023 024 11:06 AM EST COVID-19 Rule-Out 03/29/2023 03/29/2023 03/29/2023 11:06 AM EST documented as of this encounter Advance Directives Latest Code Status on File Code Status Date Activated Date Inactivated Comments Full Code 03/29/2023 1:43 PM 04/02/2023 2:03 PM This order reflects the patients wishes and were consensually agreed upon. Question Answer Comments Discussion of Advance Directives occurred with: Patient Care Teams Cd Technician Relationship Specialty Start Date End Date Cory Ross PA-C [address] [place] [address] PCP - General Physician Upper Doubler 10/27/22 documented as of this encounter
--- OUTSIDE RECORDS SUMMARY | 2023-06-14 21:42 | External Medical Summary | Summary of Care ---
Author Name Unknown Organization [facility] Address [address] [place] [address] Phone [phone] Care Team Providers Care Beauty Artist Name Role Phone Cory Ross PA-C Primary Care Provider + [phone] Reason for Visit * Reason Onset Date Comments Referral 04/24/2023 Encounter Details Date Type Department Care Team ([facility] Contact Info) Description 04/24/[address] [phone] Cory Ross PA-C [address] [place] [phone] Referral Allergies No known active allergiesdocumented [...] morning. 30 Tablet 2 04/03/2023 07/02/2023 Active Naltrexone 380 MG Intramuscular Suspension Reconstituted (Vivitrol) Inject 380 mg into a large muscle every month for 11 doses. 1 Each 12 04/22/2023 02/17/2024 Active documented as of this encounter (statuses [...] hyperactive alcohol withdrawal delirium 04/05/19 23 03/30/2023 Compression fracture of L1 lumbar vertebra 08/09/2011 03/29/2023 documented as of this encounter (statuses as of 04/25/2023) Immunizations Name Administration Dates Next Due Pneumococcal [...] encounter Miscellaneous Notes * Telephone Encounter - Evangelina Aviles OSA [...] routine appointment with speciality) Patient Name: Esdras M Storey Patient Primary care provider: Cory Ross PA-C Does this need to be an insurance referral (Y/N)?: yes If Yes, does the insurance referral need to be placed into the [employer] system? Name of preferred specialist: Physical Therapy Type of specialist: Physical Therapist Location of specialist: [place] [facility] Phone #: n/a Specialist's Fax #: n/a Reason for visit: Chronic back pain Date of visit: n/a documented in this encounter Plan of Treatment Health Maintenance Due Date Last Done Comments [...] Advance Directives occurred with: Patient Care Teams Beauty Artist Relationship Specialty Start Date End Date Cory Ross PA-C [address] [place] [address] [place] [address] PCP - General Physician Ordnance Equipment Worker 10/27/22 documented as of this encounter
--- OUTSIDE RECORDS SUMMARY | 2023-06-14 21:42 | External Medical Summary | Summary of Care ---
Author Name Unknown Organization [facility] Address [address] [place] [address] Phone [phone] Care Team Providers Care Auto Transport Driver Name Role Phone Khang Michel PA-C Primary Care Provider + [phone] Reason for Visit * Reason Onset Date Comments Hospital Follow-Up 04/02/2023 Encounter Details Date Type Department Care Team ([facility] st Contact Info) Description 04/02/[address] [phone] Khang Michel PA-C [address] [place] [phone] Hospital Follow-Up Allergies No known active allergiesdocumented as of this encounter (statuses as of 05/10/2023) Medications Medication Sig Dispensed Refills Start Date End Date Status Acetaminophen 500 MG Oral Tablet (Tylenol Extra Strength) Take 1 Tablet by mouth every 6 hours as needed. 0 Active documented as of this encounter [...] 0 (1 standard drink = 0.6 oz pure alcohol) 18 liters of vodka in last 15 days Hunger Vital Sign Answer Date Recorded Within [...] encounter Miscellaneous Notes * Telephone Encounter - Maryan Hogan OSA - 04/02/2023 7:01 PM EST Order RETURN APPT [IP355] (Order [id number]) Esdras Storey 03/29/2023 7:30 AM ED to Hosp-Admission Description: 32 year old male Department: ACU IP [facility] Message Patient Name: ESDRAS STOREY([id number]) Sex: Male : 1990 PCP: KHANG MICHEL Center: [facility] Types of orders made on 04/02/2023: Communication, IP Discharge, IP Post Discharge , Lab, Medications, Referral Order Date:04/02/2023 Ordering Use r:ALAN BECERRA [[id number]] Attending Provider:Gregory Dykes MD [[id number]] Authorizing Provider: Alan Becerra DO [[id number]] Department:ACU IP GJSH[[id number]] Order Specific Information Order: RETURN APPT [CUSTOM: IP355] Order #: [id number]: 1 Priority: Routine Class: Nursing Unit Department (Single Entry) -> Family Practice Appt Needed Within: (Specify # of Days, W eeks, Months) -> 1 Wk Released on: 04/02/2023 9:01 AM Priority: Routine Class: Nursing Unit Department (Single Entry) -> Family Practice Appt Needed Within: (Specify # of Days, Weeks, Months) -> 1 Wk Released on: 04/02/2023 9:01 AM documented in this encounter Plan of Treatment Upcoming Encounters Date Type Department Care Team ([facility] Contact Info) Description 05/15/2023 2:30 PM EDT Rehab Services Physical Therapy [address] [phone] Elise Garza, [place] [address] [place] [address] 05/17/2023 10:00 AM EDT Rehab Services Physical Therapy [place] [address] [place] [address] Elise Garza, [place] [address] [address] [place] [address] 05/20/2023 2:30 PM EDT Rehab Services Physical [address] [place] [phone] Elise Garza, [address] [place] [address] 05/22/2023 2:30 PM EDT Rehab Services Physical [address] [place] [address] Elise Garza, [address] [place] [address] 05/27/2023 4:00 PM EDT Rehab Services Physical [address] [place] [address] Lyric Lynne, [address] [place] [address] 05/29/2023 2:30 PM EDT Rehab Services Physical [address] [place] [address] Elise Garza, [address] [place] [address] 06/03/2023 2:30 PM EDT Rehab Services Physical [address] [place] [phone] Neetu Samuels, PT [address] [place] [address] 06/05/2023 2:30 PM EDT Rehab Services Physical [address] [phone] Elise Garza, SUPPLY AND DISTRIBUTION MANAGER [address] [place] [address] 06/10/2023 2:30 PM EDT Rehab Services [address] [phone] Lyric Lynne, SUPPLY AND DISTRIBUTION MANAGER [address] [place] [address] 06/12/2023 2:30 PM EDT Rehab Services [facility] [address] [phone] Elise Garza, SUPPLY AND DISTRIBUTION MANAGER [address] [place] [address] 06/17/2023 2:30 PM EDT Rehab Services [address] [phone] Lyric Lynne, SUPPLY AND DISTRIBUTION MANAGER [address] [place] [address] 06/19/2023 2:30 PM EDT Rehab Services [address] [phone] Elise Garza, SUPPLY AND DISTRIBUTION MANAGER [address] [place] [address] Health Maintenance Due Date Last Done Comments [...] Advance Directives occurred with: Patient Care Teams Auto Transport Driver Relationship Specialty Start Date End Date Khang Michel PA-C [address] [place] [address] [place] [address] PCP - General Physician Mine Car Repairer 10/27/22 documented as of this encounter
--- OUTSIDE RECORDS SUMMARY | 2023-06-14 21:42 | External Medical Summary ---
Author Name Unknown Address Unknown Organization K01:[facility] [place] [address] [address] [facility] [address] Laboratory Report Ordering Provider Test Date Status DEVONTE REYNOLDS 05/13/2023 09:51:02 Final Cutoff Concentrations:
D rug Level
Alpha-Hydroxyalprazolam 10 ng/mL
7-Aminoclonazepam 20 ng/mL
Nordiazepam 20 ng/mL
Oxazepam 20 ng/mL
Temazepam 20 ng/mL
Lorazepam 10 ng/mL

This test was developed and its performance characteristics determined by [facility]. It has not been cleared or approved by the [place] Food and Drug Administration. Observation Date Value Abnormality Reference (Units ) Status METHODOLOGY 05/13/2023 09:51:02 LC-MS/MS Final Alpha hydroxyalprazolam cutoff [Mass/volume] in Urine for Confirmatory method 05/13/2023 09:51:02 Negative Negative Final 7-Aminoclonazepam [Mass/volume] in Urine by Confirmatory method 05/13/2023 09:51:02 Negative Negative Final Nordiazepam cutoff [Mass/volume] in Urine for Confirmatory method 05/13/2023 09:51:02 Negative Negative Final Oxazepam cutoff [Mass/volume] in Urine for Confirmatory method 05/13/2023 09:51:02 Negative Negative Final Temazepam cutoff [Mass/volume] in Urine for Confirmatory method 05/13/2023 09:51:02 Negative Negative Final LORazepam cutoff [Mass/volume] in Urine for Confirmatory method 05/13/2023 09:51:02 Negative Negative Final Performing Location LABORATORY [address] [place] [address]
--- OUTSIDE RECORDS SUMMARY | 2023-06-14 21:42 | External Medical Summary | Summary of Care ---
Author Name Unknown Organization [facility] Address [address] [place] [facility] [facility] [place] [address] Phone [phone] Care Team Providers Care Digital Marketer Name Role Phone Cory Ross PA-C Primary Care Provider + [phone] Reason for Visit * Reason Comments Pain Limited Range Of Motion Muscle Weakness * Evaluate & Treat - Unlimited Visits (Within 10 days (routine)) - Authorized Specialty Diagnoses / Procedures Referred By Danielle t Referred To Contact Physical Medicine And Rehab Diagnoses Compression fracture of T12 vertebra, sequela Compression fracture of L1 vertebra, sequela Katherine Schmitt PA-C [address] [place] [address] Referral ID Status Reason Start Date Expiration Date Visits Requested Visits Authorized [id number] Authorized Specialty Services Required 05/09/2023 06/08/2023 8 8 Encounter Details Date Type Department Care Team (Latest Contact Info) Description 05/27/2023 9:15 AM EDT Rehab Services Physical Therapy [address] [phone] Lyric Lynne, [address] [phone] T12 compression fracture, sequela*; Compression fracture of L1 lumbar vertebra, sequela; Chronic midline low back pain without sciatica; Muscle tightness; Muscle weakness Allergies No known active allergiesdocumented as of this encounter (statuses as of 05/27/2023) Medications Medication Sig Dispensed Refills Start Date [...] as of this encounter (statuses as of 05/27/2023) Active Problems Problem Noted Date Diagnosed Date [...] as of this encounter (statuses as of 05/27/2023) Resolved Problems Problem Noted Date Diagnosed Date Resolved Date Alcohol withdrawal syndrome with complication 03/30/19 24 04/02/2023 Neutropenic fever 03/30/2023 04/02/2023 Acute alcoholic intoxication with complication 03/29/2023 03/30/2023 Leucopenia 03/29/2023 04/02/2023 Drug-induced liver injury 03/29/2023 Acute hyperactive alcohol withdrawal delirium 04/05/19 23 03/30/2023 documented as of this encounter (statuses as of 05/27/2023) Immunizations Name Administration Dates Next Due Pneumococcal [...] as of this encounter Progress Notes * Lyric Lynne, AIR ROUTE TRAFFIC CONTROLLER - 05/27/2023 9:15 AM EDT Outpatient Physical Therapy Daily Progress Note Physical Therapy [address] [facility] [address] Patient Name: Esdras Storey Date of : 1990 Age: [age] year old Date: 05/27/2023 Start of Care: 05/09/2023 Plan of Care Expiration Date: 06/20/2023 Visit Number: 4 Subjective: Pt states that he is just having soreness. He has been walking a mile or two which has stiffened him up. He is going to be a little grunty from stiffness/soreness. Low back pain is a 7/10. He is compliant with HEP. He has been dealing with it for a while. His back pain increases once heis standing for more than an hour. That is limiting him from work. Last day was January 12 [address] and his parents bring him to therapy. Objective: Pt is agreeable to physical therapy [...] abd S/D 20x, green Y Y Bridges 10x, green Y Y SLR 10x Y Y Open Books 10x Y Y Seated forward flexion/diagonals 10x Y Y Cat/Camel 5x Y Y Seated Horizontal abd and diagonals 15x, red Y Y Bilateral ER 15x, red Y Standing mid/low row 10x.green Assessment: Patient returns to PT with continued chronic LS and TS pain. Pt has constant low back pain that can get worse depending on what he is doing. Pt has increased pain with prolonged sitting and standing for more than an hour. Pt has been more active which is why he is presenting with increased stiffness and pain. Pt does well with all exercises with no complaints of discomfort. During seated and standing exercises pt requires postural cues. Pt posture decreases with fatigue, shoulders will become rounded with forward flexion in lumbar spine. Pt is self aware at times and will correct automatically demonstrating improvement and carryover from previous treatment.. Pt will benefit from continued skilled PT to increase strength and mobility to improve function. Plan: Continue to progress core stabilization exercises as able. Barrel stretch is a possible progression. Initiate isometric bug holds. UNTIMED SERVICES: 0 MINUTES TIMED SERVICES: 40 MINUTES TOTAL TIMES: 40 MINUTES Lyric Lynne PTA 05/27/2023 2:33 PM documented in this encounter Plan of Treatment Upcoming Encounters Date Type Department Care Team (Late st Contact Info) Description 05/29/2023 12:40 PM EDT Office Visit [address] [phone] Tami Upton MD [address] [place] [phone] 05/30/2023 1:00 PM EDT Rehab Services Physical [address] [address] Elise Garza, AIR ROUTE TRAFFIC CONTROLLER [address] [place] [address] 06/03/2023 2:30 PM EDT Rehab Services [address] [phone] Neetu Samuels, ASIM [address] [place] [address] 06/05/2023 2:30 PM EDT Rehab Services Physical Therapy [address] [phone] Elise Garza, AIR ROUTE TRAFFIC CONTROLLER [address] [place] [address] 06/10/2023 2:30 PM EDT Rehab Services Physical [address] [address] Lyric Lynne, [address] [address] 06/12/2023 2:30 PM EDT Rehab Services [address] [phone] Elise Garza, AIR ROUTE TRAFFIC CONTROLLER [address] [place] [address] 06/17/2023 2:30 PM EDT Rehab Services Physical Therapy [facility] 68 [facility] [address] [place] [address] Lyric Lynne, [facility] [address] [place] [address] 06/19/2023 2:30 PM EDT Rehab Services Physical Therapy [facility] [address] [facility] [address] [place] [address] Elise Garza, [facility] 68 [facility] [address] [place] [address] 08/12/2023 12:20 PM EDT Laboratory Laboratory Hem/Onc [facility], [place] [address] [place] [address] [place] [address] [address] [place] [address] 08/12/2023 1:00 PM EDT Office Visit Hematology Oncology [facility] [place] [address] [place] [phone] Rafael Metcalf PA-C [address] [place], [place] [phone] Health Maintenance Due Date Last Done Comments [...] Advance Directives occurred with: Patient Care Teams Digital Marketer Relationship Specialty Start Date End Date Cory Ross PA-C [address] [place] [phone] PCP - General Physician Machine Brush Maker 10/27/22 documented as of this encounter
--- OUTSIDE RECORDS SUMMARY | 2023-06-14 21:42 | External Medical Summary | Summary of Care ---
Author Name Unknown Organization [facility] Address [address] [place] [facility] [place] [address] Phone [phone] Care Team Providers Care Bar Hostess Name Role Phone Cory Ross PA-C Primary Care Provider Reason for Visit * Reason Onset Date Comments Test Results 05/16/2023 Lmom 05/16/23-tlm Encounter Details Date Type Department Care Team ([facility] st Contact Info) Description 05/16/2023 Telephone [facility] [address] [place] [address] Tami Upton MD [address] [place] [phone] Test Results ([facility] 05/16/23-tlm) Allergies No known active allergiesdocumented as of this encounter (statuses as of 05/20/2023) Medications Medication Sig Dispensed Refills Start Date [...] as of this encounter (statuses as of 05/20/2023) Active Problems Problem Noted Date Diagnosed Date [...] as of this encounter (statuses as of 05/20/2023) Resolved Problems Problem Noted Date Diagnosed Date Resolved Date Alcohol withdrawal syndrome with complication 03/30/19 24 04/02/2023 Neutropenic fever 03/30/2023 04/02/2023 Acute alcoholic intoxication with complication 03/29/2023 03/30/2023 Leucopenia 03/29/2023 04/02/2023 Drug-induced liver injury 03/29/2023 Acute hyperactive alcohol withdrawal delirium 04/05/19 23 03/30/2023 documented as of this encounter (statuses as of 05/20/2023) Immunizations Name Administration Dates Next Due Pneumococcal [...] encounter Miscellaneous Notes * Telephone Encounter - Alex Reyes OSA - 05/20/2023 8:18 AM EDT Sent MyG to patient * Telephone Encounter - Kate Aviles OSA - 05/16/2023 2:04 PM EDT Images from the original note were not included. Tami Upton MD [facility] Front Office Pool Please call patient to schedule visit to discuss elevated cholesterol. Thanks documented in this encounter Plan of Treatment Upcoming Encounters Date Type Department Care Team ([facility] Contact Info) Description 05/20/2023 2:30 PM EDT Rehab Services Physical Therapy [address] [phone] Elise Garza, [facility] [address] [facility] [address] [address] 05/22/2023 2:30 PM EDT Rehab Services Physical Therapy [address] [place] [phone] Elise Garza, CARNIVAL WORKER [address] [place], [place] [address], [place] [address] 05/27/2023 4:00 PM EDT Rehab Services Physical Therapy [address] [place] [address] Lyric Lynne, CARNIVAL WORKER [address] [place] [address] 05/29/2023 2:30 PM EDT Rehab Services Physical Therapy [address] [place] [phone] Elise Garza, CARNIVAL WORKER [address] [place], [place] [address] [address] 06/03/2023 2:30 PM EDT Rehab Services Physical Therapy [address] [place] [phone] Neetu Samuels, PT [address] [place] [address] 06/05/2023 2:30 PM EDT Rehab Services Physical Therapy [address] [place] [phone] Elise Garza, CARNIVAL WORKER [address] [place], [place] [address], [place] [address] 06/10/2023 2:30 PM EDT Rehab Services Physical Therapy [address] [place] [address] Lyric Lynne, CARNIVAL WORKER [address] [place] [address] 06/12/2023 2:30 PM EDT Rehab Services [address] [phone] Elise Garza, [address] [address] 06/17/2023 2:30 PM EDT Rehab Services [address] [phone] Lyric Lynne, [address] [address] 06/19/2023 2:30 PM EDT Rehab Services [address] [phone] Elise Garza, [address] [address] 08/12/2023 12:20 PM EDT Laboratory Laboratory Hem/Onc [facility], [place] [address] [place] [phone] [place], [facility] Med [address] [place], [place] [phone] 08/12/2023 1:00 PM EDT Office Visit Hematology Oncology [facility], [place] [address] [place] [phone] Rafael Metcalf PA-C [address] [place] [address] Health Maintenance Due Date Last Done Comments [...] Advance Directives occurred with: Patient Care Teams Bar Hostess Relationship Specialty Start Date End Date Cory Ross PA-C [address] [place] [phone] PCP - General Physician Senior Digital Designer 10/27/22 documented as of this encounter
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
--- OUTSIDE RECORDS SUMMARY | 2023-06-14 21:42 | External Medical Summary | Summary of Care ---
Author Name Unknown Organization [facility] Address [address] [facility] [address] Phone [phone] Care Team Providers Care Head Loader Name Role Phone Cory Ross PA-C Primary Care Provider + [phone] Reason for Visit * Reason Comments Pain LB Limited Range Of Motion Trunk, LEs Muscle Weakness Core, LEs * Evaluate & Treat - Unlimited Visits (Within 10 days (routine)) - Pending Review Specialty Diagnoses / Procedures Referred By Danielle luong Referred To Contact Physical Medicine And Rehab Diagnoses Compression fracture of T12 vertebra, sequela Compression fracture of L1 vertebra, sequela Katherine Schmitt PA-C [address] [place] [address] Referral ID Status Reason Start Date Expiration Date Visits Requested Visits Authorized [id number] Pending Review Specialty Services Required 05/09/2023 [id number] Encounter Details Date Type Department Care Team (Latest Contact Info) Description 05/09/2023 11:30 AM EST Rehab Services Physical Therapy [facility] [address] [facility] [address] [place] [phone] Neetu Samuels, PT [address] [place] [address] T12 compression fracture, sequela*; Compression fracture of L1 lumbar vertebra, sequela; Chronic midline low back pain without sciatica; Muscle tightness; Muscle weakness Allergies No known active allergiesdocumented as of this encounter (statuses as of 05/09/2023) Medications Medication Sig Dispensed Refills Start Date [...] as of this encounter (statuses as of 05/09/2023) Active Problems Problem Noted Date Diagnosed Date [...] as of this encounter (statuses as of 05/09/2023) Resolved Problems Problem Noted Date Diagnosed Date Resolved Date Alcohol withdrawal syndrome with complication 03/30/19 24 04/02/2023 Neutropenic fever 03/30/2023 04/02/2023 Acute alcoholic intoxication with complication 03/29/2023 03/30/2023 Leucopenia 03/29/2023 04/02/2023 Drug-induced liver injury 03/29/2023 Acute hyperactive alcohol withdrawal delirium 04/05/19 23 03/30/2023 documented as of this encounter (statuses as of 05/09/2023) Immunizations Name Administration Dates Next Due Pneumococcal [...] on file documented as of this encounter Plan of Treatment Upcoming Encounters Date Type Department Care Team ([facility] st Contact Info) Description 05/15/2023 2:30 PM EDT Rehab Services Physical Therapy [place] [address] [address] [phone] Elise Garza, AUTOMATIC STEEL TIE ADJUSTER [address] [place] [address] [place] [address] 05/17/2023 10:00 AM EDT Rehab Services Physical Therapy [address] [phone] Elise Garza, AUTOMATIC STEEL TIE ADJUSTER [address] [place] [address] [place] [address] 05/20/2023 2:30 PM EDT Rehab Services Physical Therapy [address] [place] [phone] Elise Garza, [address] [place] [address] 05/22/2023 2:30 PM EDT Rehab Services Physical Therapy [address] [place] [phone] Elise Garza, AUTOMATIC STEEL TIE ADJUSTER [address] [place], [place] [address], [place] [address] 05/27/2023 4:00 PM EDT Rehab Services [address] [place] [phone] Lyric Lynne, [address] [address] 05/29/2023 2:30 PM EDT Rehab Services Physical [address] [place] [phone] Elise Garza, [address] [place] [address] 06/03/2023 2:30 PM EDT Rehab Services Physical Therapy [address] [place] [phone] Neetu Samuels, PT [address] [place] [address] 06/05/2023 2:30 PM EDT Rehab Services Physical [address] [place] [phone] Elise Garza, [address] [place] [address] 06/10/2023 2:30 PM EDT Rehab Services Physical Therapy [address] [place] [address] Lyric Lynne, [address] [address] 06/12/2023 2:30 PM EDT Rehab Services Physical Therapy [address] [place] [address] Elise Garza, [address] [address] 06/17/2023 2:30 PM EDT Rehab Services Physical Therapy [address] [address] Lyric Lynne, [address] [address] 06/19/2023 2:30 PM EDT Rehab Services Physical Therapy [address] [phone] Elise Garza, [address] [address] Scheduled Referrals Name Type Priority Associated Diagnoses Orde r Schedule PHYSICAL THERAPY REFERRAL OP Referral Within 10 days (routine) Compression fracture of T12 vertebra, sequela Compression fracture of L1 vertebra, sequela Ordered: 04/25/2023 Health Maintenance Due Date Last Done Comments Depression Screening 08/05/2015 08/04/2014 COVID-19 Vaccine ( season) 2022 DTaP,Tdap,and Td Vaccines (8 - [...] Advance Directives occurred with: Patient Care Teams Head Loader Relationship Specialty Start Date End Date Cory Ross PA-C [address] [place] [address] [place] [address] PCP - General Physician Recovery Advocate 10/27/22 documented as of this encounter
--- OUTSIDE RECORDS SUMMARY | 2023-06-14 21:42 | External Medical Summary | Summary of Care ---
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 Allergies No known active allergiesdocumented as of this encounter (statuses as of 05/15/2023) Medications Medication Sig Dispensed Refills Start Date [...] as of this encounter (statuses as of 05/15/2023) Active Problems Problem Noted Date Diagnosed Date [...] as of this encounter (statuses as of 05/15/2023) Resolved Problems Problem Noted Date Diagnosed Date Resolved Date Alcohol withdrawal syndrome with complication 03/30/19 24 04/02/2023 Neutropenic fever 03/30/2023 04/02/2023 Acute alcoholic intoxication with complication 03/29/2023 03/30/2023 Leucopenia 03/29/2023 04/02/2023 Drug-induced liver injury 03/29/2023 Acute hyperactive alcohol withdrawal delirium 04/05/19 23 03/30/2023 documented as of this encounter (statuses as of 05/15/2023) Immunizations Name Administration Dates Next Due Pneumococcal [...] Upcoming Encounters Date Type Department Care Team ([facility] Contact Info) Description 05/17/2023 10:00 AM EDT Rehab Services Physical Therapy [address] [phone] Elise Garza, [address] [address] 05/20/2023 2:30 PM EDT Rehab Services Physical [address] [address] Elise Garza, [address] [address] 05/22/2023 2:30 PM EDT Rehab Services Physical [address] [place] [address] Elise Garza, [address] [address] 05/27/2023 4:00 PM EDT Rehab Services Physical [address] [address] Lyric Lynne, AWARD MACHINE OPERATOR [address] [place] [address] 05/29/2023 2:30 PM EDT Rehab Services Physical Therapy [address] [place] [address] Elise Garza, AWARD MACHINE OPERATOR [address] [place] [address] 06/03/2023 2:30 PM EDT Rehab Services Physical [address] [phone] Neetu Samuels, PT [address] [place] [address] 06/05/2023 2:30 PM EDT Rehab Services Physical Therapy [address] [address] Elise Garza, AWARD MACHINE OPERATOR [address] [place] [address] 06/10/2023 2:30 PM EDT Rehab Services [address] [phone] Lyric Lynne, AWARD MACHINE OPERATOR [address] [place] [address] 06/12/2023 2:30 PM EDT Rehab Services Physical [address] [place] [phone] Elise Garza, AWARD MACHINE OPERATOR [address] [place] [address] [address] 06/17/2023 2:30 PM EDT Rehab Services Physical Therapy [facility] [address] [facility] [address] [place] [phone] Lyric Lynne, [facility] [address] [place] [address] 06/19/2023 2:30 PM EDT Rehab Services Physical Therapy [facility] [address] [facility] [address] [place] [phone] Elise Garza, AWARD MACHINE OPERATOR [address] [facility] [address] [place] [address] 08/12/2023 12:20 PM EDT Laboratory Laboratory Hem/Onc [facility] [place] [address] [place] [phone] [place] [address] [address] [place] [address] 08/12/2023 1:00 PM EDT Office Visit Hematology Oncology [facility] [place] [address] [place] [phone] Rafael Metcalf PA-C [address] [place], [place] [phone] Scheduled Orders Name Type Priority Associated Diagnoses Orde r Schedule COMPREHENSIVE METABOLIC PANEL Lab STAT Hepatosplenomegaly 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 Question Answer Comments Discussion of Advance Directives occurred with: Patient Care Teams Internet Systems Administrator Relationship Specialty Start Date End Date Cory Ross PA-C [address] [place] [phone] PCP - General Physician Nursing Department Chairperson 10/27/22 documented as of this encounter
--- OUTSIDE RECORDS SUMMARY | 2023-06-14 21:42 | External Medical Summary ---
Author Name Unknown Address Unknown Organization [id number]:[facility] [place] [address] [place] [address] Laboratory Report Ordering Provider Test Date Status DAVID ROUSSEAUGYPSY 04/25/2023 14:06:38 Final Cutoff Concentrations:
D rug Level
Alpha-Hydroxyalprazolam 10 ng/mL
7-Aminoclonazepam 20 ng/mL
Nordiazepam 20 ng/mL
Oxazepam 20 ng/mL
Temazepam 20 ng/mL
Lorazepam 10 ng/mL

This test was developed and its performance characteristics determined by [employer]. It has not been cleared or approved by the [place] Food and Drug Administration. Observation Date Value Abnormality Reference (Units) Status METHODOLOGY 04/25/2023 14:06:38 LC-MS/MS Final Alpha hydroxyalprazolam cutoff [Mass/volume] in Urine for Confirmatory method 04/25/2023 14:06:38 Negative Negative Final 7-Aminoclonazepam [Mass/volume] in Urine by Confirmatory method 04/25/2023 14:06:38 Negative Negative Final Nordiazepam cutoff [Mass/volume] in Urine for Confirmatory method 04/25/2023 14:06:38 Negative Negative Final Oxazepam cutoff [Mass/volume] in Urine for Confirmatory method 04/25/2023 14:06:38 Negative Negative Final Temazepam cutoff [Mass/volume] in Urine for Confirmatory method 04/25/2023 14:06:38 Negative Negative Final LORazepam cutoff [Mass/volume] in Urine for Confirmatory method 04/25/2023 14:06:38 >1000 Above high normal Negative (ng/mL) Final Performing Location [facility] [place] [address] [place] [address]
--- OUTSIDE RECORDS SUMMARY | 2023-06-14 21:42 | External Medical Summary | Summary of Care ---
Author Name Unknown Organization [facility] Address [address] [facility] [address] Phone [phone] Care Team Providers Care Front End Technician Name Role Phone Cory Ross PA-C Primary Care Provider + [phone] Reason for Visit * Reason Comments Pain Low back Limited Range Of Motion Low back Muscle Weakness Low back * Evaluate & Treat - Unlimited Visits (Within 10 days (routine)) - Authorized Specialty Diagnoses / Procedures Referred By Danielle luong Referred To Contact Physical Medicine And Rehab Diagnoses Compression fracture of T12 vertebra, sequela Compression fracture of L1 vertebra, sequela Katherine Schmitt PA-C [address] [place] [id number] Referral ID Status Reason Start Date Expiration Date Visits Requested Visits Authorized [id number] Authorized Specialty Services Required 05/09/2023 06/08/2023 8 8 Encounter Details Date Type Department Care Team (Latest Contact Info) Description 05/22/2023 2:30 PM EDT Rehab Services Physical Therapy [address] [place] [phone] Elise Garza, [employer] [address] [place] [address] [address] [place] [address] T12 compression fracture, sequela*; Compression fracture of L1 lumbar vertebra, sequela; Chronic midline low back pain without sciatica; Muscle tightness; Muscle weakness Allergies No known active allergiesdocumented as of this encounter (statuses as of 05/22/2023) Medications Medication Sig Dispensed Refills Start Date [...] as of this encounter (statuses as of 05/22/2023) Active Problems Problem Noted Date Diagnosed Date [...] as of this encounter (statuses as of 05/22/2023) Resolved Problems Problem Noted Date Diagnosed Date Resolved Date Alcohol withdrawal syndrome with complication 03/30/19 24 04/02/2023 Neutropenic fever 03/30/2023 04/02/2023 Acute alcoholic intoxication with complication 03/29/2023 03/30/2023 Leucopenia 03/29/2023 04/02/2023 Drug-induced liver injury 03/29/2023 Acute hyperactive alcohol withdrawal delirium 04/05/19 23 03/30/2023 documented as of this encounter (statuses as of 05/22/2023) Immunizations Name Administration Dates Next Due Pneumococcal [...] this encounter Progress Notes * Elise Garza, [employer] - 05/22/2023 2:33 PM EDT Outpatient Physical Therapy Daily Progress Note Physical Therapy [address] [facility] [address] Patient Name: Esdras Storey Date of : 1990 Age: [age] year old Date: 05/22/2023 Start of Care: 05/09/2023 Plan of Care Expiration Date: 06/20/2023 Visit Number: 3 Subjective: Pt complains of constant low back pain rating it a 5/10 today. Pt states occasional pain into the scapular region but mainly into the low back. Pt complains of increased pain with sittingfor prolonged periods and cannot stand for mor than 2 hours without pain. States he is not very active due to the pain. Objective: Patient agreeable to strengthening and stretching [...] Horizontal abd and diagonals 15x, red Y Treatment completed under the direct supervision of Neetu Samuels PT. Assessment: Patient returns to PT with continued chronic LS and TS pain. Pt has constant low back pain that can get worse depending on what he is doing. Pt has increased pain with prolonged sitting and standing. Feels better when he is walking but is not very active due to pain. Pt was pleasant andquiet during treatment which is different compared to last visit. Pt has tightness through the low back region and was instructed on self stretching. Progressed exercises today with bridges, SLR, cat/camel, and seated horizontal abd/diagonals. Pt continues to have pain and facial grimaces due to pain. Pt was again educated that discomfort is okay to have during treatment but he should not be having pain. Pt voiced understanding. Pt was able to follow directions and cuing better. Pt was given anupdated HEP. Pt will benefit from continued skilled PT to increase strength and mobility to improvefunction. Plan: Continue to progress core stabilization exercises as able. Add standing rows, FARZANEH ER, barrel stretch UNTIMED SERVICES: 0 MINUTES TIMED SERVICES: 38 MINUTES TOTAL TIMES: 38 MINUTES Elise Garza PTA 05/22/2023 2:33 PM documented in this encounter Plan of Treatment Upcoming Encounters Date Type Department Care Team ([facility] Contact Info) Description 05/27/2023 9:15 AM EDT Rehab Services Physical Therapy [address] [phone] Lyric Lynne, [employer] [address] [place] [address] 05/29/2023 12:40 PM EDT Office Visit Family [address] [phone] Tami Upton MD [address] [place] [phone] 05/29/2023 2:30 PM EDT Rehab Services Physical [address] [phone] Elise Garza, [employer] [address] [place] [address] 06/03/2023 2:30 PM EDT Rehab Services Physical Therapy [address] [phone] Neetu Samuels, ASIM [address] [place] [address] 06/05/2023 2:30 PM EDT Rehab Services Physical [address] [phone] Elise Garza, [employer] [address] [place] [address] 06/10/2023 2:30 PM EDT Rehab Services Physical [address] [address] Lyric Lynne, [employer] [address] [place] [address] 06/12/2023 2:30 PM EDT Rehab Services Physical Therapy [address] [place] [address] Elise Garza, [employer] [address] [place] [address] 06/17/2023 2:30 PM EDT Rehab Services Physical [address] [phone] Lyric Lynne, [employer] [address] [place] [address] 06/19/2023 2:30 PM EDT Rehab Services [address] [phone] Elise Garza, [address] [address] 08/12/2023 12:20 PM EDT Laboratory Laboratory Hem/Onc [facility] [place] [address] [place] [phone] [place] [address] [address] [place] [address] 08/12/2023 1:00 PM EDT Office Visit Hematology Oncology [facility] [place] [address] [place] [address] Rafael Metcalf PA-C [address] [place] [address] Health Maintenance Due Date Last Done Comments [...] Advance Directives occurred with: Patient Care Teams Front End Technician Relationship Specialty Start Date End Date Cory Ross PA-C [address] [place] [address] PCP - General Physician County Historian 10/27/22 documented as of this encounter
--- OUTSIDE RECORDS SUMMARY | 2023-06-14 21:43 | External Medical Summary ---
Author Name Unknown Address Unknown Organization [id number]:[facility] [place] [address] [facility] [address] [place] [address] Laboratory Report Ordering Provider Test Date Status ANGELO AMAYA 04/22/2023 16:10:49 Final Observation Date Value Abnormality Reference (Units ) Status BUN 04/22/2023 16:10:49 9 6-20 (mg/dL) Final Creatinine 04/22/2023 16:10:49 0.6 0.6-1.2 (mg/dL) Final Glomerular filtration rate/1.73 sq M.predicted [Volume Rate/Area] in Serum, Plasma or Blood by Creatinine-based formula (CKD-EPI) 04/22/2023 16:10:49 >90 >=60 (mL/min) Final eGFR is calculated based on the CKD-EPI 2020 equation SODIUM 04/22/2023 16:10:49 136 135-146 (m mol/L) Final Potassium 04/22/2023 16:10:49 4.4 3.5-5.1 (m mol/L) Final Cl 04/22/2023 16:10:49 101 98-107 (mm ol/L) Final CO2 04/22/2023 16:10:49 25 22-32 (mmo l/L) Final Anion gap 04/22/2023 16:10:49 10 7-15 (mmol /L) Final Glucose 04/22/2023 16:10:49 82 70-120 (mg /dL) Final Albumin 04/22/2023 16:10:49 4.0 3.8-5.0 (g /dL) Final AST (Aspartate aminotransferase) 04/22/2023 16:10:49 311 Above high normal 10-50 (U/L) Final Alk Phos 04/22/2023 16:10:49 74 35-130 (U/ L) Final Bilirubin, Total 04/22/2023 16:10:49 1.1 <=1 .2 (mg/dL) Final Calcium 04/22/2023 16:10:49 9.5 8.4-10.2 ( mg/dL) Final Protein 04/22/2023 16:10:49 7.4 6.0-8.3 (g /dL) Final ALT (Alanine aminotransferase) 04/22/2023 16:10:49 282 Above high normal 10-50 (U/L) Final Performing Location [facility] [place] [address] [facility] [address]
--- OUTSIDE RECORDS SUMMARY | 2023-06-14 21:43 | External Medical Summary | Summary of Care ---
Author Name Unknown Organization [facility] Address [address] [place] [address] Phone [phone] Care Team Providers Care Medical Accounting Clerk Name Role Phone Cory Ross PA-C Primary Care Provider + [phone] Encounter Details Date Type Department Care Team (Late st Contact Info) Description 04/18/2023 Telephone [facility] Gastroenterology [address] [place] [address] Randy Woody, [address] [place] [address] Allergies No known active allergiesdocumented as of this encounter (statuses as of 04/18/2023) Medications Medication Sig Dispensed Refills Start Date [...] morning. 30 Tablet 2 04/03/2023 07/02/2023 Active LORazepam 0.5 MG Oral Tablet (Ativan)Indications: Alcohol dependence with unspecified alcohol-induced disorder (HCC) Take 1 Tablet by mouth at bedtime for 4 days. 4 Tablet 0 04/17/2023 04/21/2023 Active documented as of this encounter (statuses as of 04/18/2023) Active Problems Problem Noted Date Diagnosed Date [...] as of this encounter (statuses as of 04/18/2023) Resolved Problems Problem Noted Date Diagnosed Date Resolved Date Alcohol withdrawal syndrome with complication 03/30/19 24 04/02/2023 Neutropenic fever 03/30/2023 04/02/2023 Acute alcoholic intoxication with complication 03/29/2023 03/30/2023 Leucopenia 03/29/2023 04/02/2023 Drug-induced liver injury 03/29/2023 Acute hyperactive alcohol withdrawal delirium 04/05/19 23 03/30/2023 Compression fracture of L1 lumbar vertebra 08/09/2011 03/29/2023 documented as of this encounter (statuses as of 04/18/2023) Immunizations Name Administration Dates Next Due Pneumococcal Conjugate Vaccine, 20-valent (Prevn ar20) 01/31/2023 Seasonal Influenza, PF, 6 M & above, IM , (FluLaval or Fluzone) 11/24/2022 TDAP (age 10 and older)(Boostrix) 01/31/2023 TDAP (age 11 and older)(Adacel) 08/08/2011 documented as of this encounter Social History Tobacco Use Types Packs/Day Years Used Date Smoking Tobacco: Every Day Cigarettes 0.5 Smokeless Tobacco: Never Alcohol Use Standard Drinks/Week [...] encounter Miscellaneous Notes * Telephone Encounter - Randy Woody DO - 04/18/2023 2:35 PM EST Phoned result to pt. Will refer for EGD given presence of varices on MRI; otherwise stable labs andliver appearance. documented in this encounter Plan of Treatment Upcoming Encounters Date Type Department Care Team (Late st Contact Info) Description 04/22/2023 3:00 PM EST Office Visit Hematology Oncology [facility] [place] [address] [place] [address] Gavin Zhang MD [address] [place] [address] Scheduled Orders Name Type Priority Associated Diagnoses Orde r Schedule EGD, FLEXIBLE, DIAGNOSTIC Procedures Routine Secondary esophageal varices without bleeding (HCC) Ordered: 04/18/2023 Health Maintenance Due Date Last Done Comments COVID-19 Vaccine (#1) 02/15/1989 Depression Screening 08/05/2015 08/04/2014 DTaP,Tdap,and Td Vaccines (8 - Td or [...] as of this encounter Visit Diagnoses Diagnosis Secondary esophageal varices without bleeding (HCC)- Primary Esophageal varices without mention of bleeding in diseases classified elsewhere documented in this encounter Advance Directives Latest Code Status on File Code Status Date Activated Date Inactivated Comments Full Code 03/29/2023 1:43 PM 04/02/2023 2:03 PM This order reflects the patients wishes and were consensually agreed upon. Question Answer Comments Discussion of Advance Directives occurred with: Patient Care Teams Medical Accounting Clerk Relationship Specialty Start Date End Date Cory Ross PA-C [address] [place] [id number] PCP - General Physician Transfer Station Attendant 10/27/22 documented as of this encounter
--- OUTSIDE RECORDS SUMMARY | 2023-06-14 21:43 | External Medical Summary ---
Author Name Unknown Address Unknown Organization K01:[facility] - [address] [place] [address] Laboratory Report Ordering Provider Test Date Status ANGELO AMAYA 04/22/2023 16:10:49 Final Observation Date Value Abnormality Reference (Units ) Status TSH 04/22/2023 16:10:49 1.44 0.27-4.20 (uIU/mL) Final Performing Location [facility]ORY [facility] - [address] [place] [address]
--- OUTSIDE RECORDS SUMMARY | 2023-06-14 21:43 | External Medical Summary ---
Author Name Unknown Address Unknown Organization K01:[facility] [place] - [facility] [address] [facility] [address] Laboratory Report Ordering Provider Test Date Status [place] 04/25/2023 14:06:38 Final Cutoff Concentrations:
Drug Level
Amphetamines 500 [...] Reference (Units ) Status Amphetamines, Urine screen 04/25/2023 14:06:38 Negative Negative Final Benzodiazepines, Urine screen 04/25/2023 14:06:38 Positive Abnormal Negative Final Cannabinoids, Urine screen 04/25/2023 14:06:38 Positive Abnormal Negative Final Cocaine Metabolite, Urine screen 04/25/2023 14:06:38 Negative Negative Final fentaNYL [Presence] in Urine by Screen method 04/25/2023 14:06:38 Negative Negative Final HYDROcodone [Presence] in Urine by Screen method 04/25/2023 14:06:38 Negative Negative Final 6-Xvuladawwb-9,5-Dimeth yl-3,3-Diphenylpyrrolid ine (EDDP) [Presence] in Urine 04/25/2023 14:06:38 Negative Negative Final Opiates, Urine screen 04/25/2023 14:06:38 Negative Negative Final oxyCODONE [Presence] in Urine by Screen method 04/25/2023 14:06:38 Negative Negative Final Performing Location [facility] - [address] [facility] [address] [facility] [address]
--- OUTSIDE RECORDS SUMMARY | 2023-06-14 21:43 | External Medical Summary ---
Author Name Unknown Address Unknown Organization K01:[facility] - [address] [place] [address] Laboratory Report Ordering Provider Test Date Status ANGELO AMAYA 04/22/2023 16:10:49 Final Observation Date Value Abnormality Reference (Units ) Status Ferritin 04/22/2023 16:10:49 526 Above high normal 30 -400 (ng/mL) Final Performing Location [facility] - [address] [place] [address]
--- OUTSIDE RECORDS SUMMARY | 2023-06-14 21:43 | External Medical Summary ---
Author Name Unknown Address Unknown Organization K01:LABORATORY [facility] [place] - [facility] [address] [place] [address] Laboratory Report Ordering Provider Test Date Status CHRISTEL AMAYASIRI 04/22/2023 16:10:49 Final Observation Date Value Abnormality Reference (Units ) Status [place] light chains, Free, Serum 04/22/2023 16:10:49 14.54 3.30-19.40 (mg/L) Final L[place] light chains, free, Serum 04/22/2023 16:10:49 18.43 5.71-26.30 (mg/L) Final KAPPA LAMBDA FLC RATIO 04/22/2023 16:10:49 0.79 0.26-1.65 Final Performing Location LABORATORY [facility] [place] [facility] - [facility] [place] [address]
--- OUTSIDE RECORDS SUMMARY | 2023-06-14 21:43 | External Medical Summary | Summary of Care ---
Author Name Unknown Organization [facility] Address [address] [place] [address] Phone [phone] Care Team Providers Care Court Stenographer Name Role Phone Cory Ross PA-C Primary Care Provider + [phone] Reason for Referral * Evaluate & Treat - Unlimited Visits (Within 10 days (routine)) - Pending Review Specialty Diagnoses / Procedures Referred By Danielle luong Referred To Contact Psychiatry Diagnoses Alcohol dependence, continuous (HCC) SANDI (generalized anxiety disorder) Obsessive-compulsive disorder, unspecified type Leighann Carballo MD [address] [place] [address] Referral ID Status Reason Start Date Expiration Date Visits Requested Visits Authorized [id number] Pending Review Specialty Services Required 04/11/[phone] Question Answer Referral Priority Within 10 days (routine) Where should this appointment be scheduled? [facility] Is this referral for medication management? Yes Reason for Referral Other (Comment) Comments Has SANDI and OCD resulting in insomnia and subsequently AUD with like alcoholic liver disease, needs better control of SANDI and OCD * Precert (Within 10 days (routine)) - Pending Review Specialty Diagnoses / Procedures Referred By Danielle luong Referred To Contact Radiology Diagnoses Alcohol induced fatty liver Abnormal CT of liver Procedures MRI LIVER W WO CONTRAST Leighann Carballo MD [address] [place] [address] Referral ID Status Reason Start Date Expiration Date V isits Requested Visits Authorized [id number] Pending Review 04/11/2023 999 999 Reason for Visit * Reason Comments NEW PATIENT * Evaluate & Treat - Unlimited Visits (Within 10 days (routine)) - Authorized Specialty Diagnoses / Procedures Referred By Danielle luong Referred To Contact Gastroenterology Diagnoses Elevated liver transaminase level Hepatosplenomegaly Alcohol induced fatty liver Osman Hadley DO [address] [facility] [place] [address] Referral ID Status Reason Start Date Expiration Date Visits Requested Visits Authorized [id number] Authorized Specialty Services Required 04/02/2023 04/02/[phone] Encounter Details Date Type Department Care Team (Late st Contact Info) Description 04/11/2023 9:20 AM EST Telemedicine Hepatology, [place] [address] [place] [address] Leighann Carballo MD [address], [place] [phone] Alcohol induced fatty liver*; Abnormal CT of liver; Alcohol dependence, continuous (HCC); SANDI (generalized anxiety disorder); Obsessive-compulsive disorder, unspecified type Allergies No known active allergiesdocumented as of this encounter (statuses as of 04/11/2023) Medications Medication Sig Dispensed Refills Start Date End Date Status Acetaminophen 500 MG Oral Tablet (Tylenol Extra Strength) Take 1 Tablet by mouth every 6 hours as needed. 0 Active clonazePAM 1 MG Oral Tablet (KlonoPIN) Take 1 during the day as needed for anxiety. Take 1 tab at bedtime 40 Tablet 0 04/02/2023 Active Acamprosate Calcium 333 MG Oral Tablet [...] as of this encounter (statuses as of 04/11/2023) Active Problems Problem Noted Date Diagnosed Date [...] as of this encounter (statuses as of 04/11/2023) Resolved Problems Problem Noted Date Diagnosed Date Resolved Date Alcohol withdrawal syndrome with complication 03/30/19 24 04/02/2023 Neutropenic fever 03/30/2023 04/02/2023 Acute alcoholic intoxication with complication 03/29/2023 03/30/2023 Leucopenia 03/29/2023 04/02/2023 Drug-induced liver injury 03/29/2023 Acute hyperactive alcohol withdrawal delirium 04/05/1903/30/2023 Compression fracture of L1 lumbar vertebra 08/09/2011 03/29/2023 documented as of this encounter (statuses as of 04/11/2023) Immunizations Name Administration Dates Next Due Pneumococcal [...] drink = 0.6 oz pur e alcohol) denies since 03/29/23 Hunger Vital Sign Answer Date Recorded Within [...] 3:00 PM EST Office Visit Hematology Oncology [place] [address] [place] [address] Gavin Zhang MD [address] [place] [address] Scheduled Orders Name Type Priority Associated Diagnoses Orde r Schedule CBC Lab Routine Alcohol induced fatty liver Expected: 04/11/2023 (Approximate), Expires: 04/11/2024 PT INR Lab Routine Alcohol induced fatty liver Expected: 04/11/2023 (Approximate), Expires: 04/11/2024 COMPREHENSIVE METABOLIC PANEL Lab Routine Alcohol induced fatty liver Expected: 04/11/2023 (Approximate), Expires: 04/11/2024 MRI LIVER W WO CONTRAST Medical Imaging Routine Alcohol induced fatty liver Abnormal CT of liver Expected: 04/11/2023 (Approximate), Expires: 05/08/2024 ALPHA-FETOPROTEIN TUMOR MARKER Lab Routine Alcohol induced fatty liver Expected: 04/11/2023 (Approximate), Expires: 04/11/2024 Scheduled Referrals Name Type Priority Associated Diagnoses Orde r Schedule ADULT/PEDS PSYCHIATRY REFERRAL OP Referral Within 10 days (routine) Alcohol dependence, continuous (HCC) SANDI (generalized anxiety disorder) Obsessive-compulsive disorder, unspecified type Ordered: 04/11/2023 Health Maintenance Due Date Last Done Comments [...] of this encounter Visit Diagnoses Diagnosis Alcohol induced fatty liver- Primary Alcoholic fatty liver Abnormal CT of liver Nonspecific (abnormal) findings on radiological and other examination of biliary tract Alcohol dependence, continuous (HCC) Other and unspecified alcohol dependence, continuous drinking behavior SANDI (generalized anxiety disorder) Generalized anxiety disorder Obsessive-compulsive disorder, unspecified type documented in this encounter Advance Directives Latest Code Status on File Code Status Date Activated Date Inactivated Comments Full Code 03/29/2023 1:43 PM 04/02/2023 2:03 PM This order reflects the patients wishes and were consensually agreed upon. Question Answer Comments Discussion of Advance Directives occurred with: Patient Care Teams Court Stenographer Relationship Specialty Start Date End Date Cory Ross PA-C [address] [place] [address] PCP - General Physician Foster Care Social Worker 10/27/22 documented as of this encounter
--- OUTSIDE RECORDS SUMMARY | 2023-06-14 21:43 | External Medical Summary ---
Author Name Unknown Address Unknown Organization [id number]:[facility] - [address] [place] [address] Laboratory Report Ordering Provider Test Date Status ANGELO AMAYA 04/22/2023 16:10:49 Final Observation Date Value Abnormality Reference (Units ) Status IgG 04/22/2023 16:10:49 4280 118-2054 ( mg/dL) Final IgA 04/22/2023 16:10:49 438 Above high normal 70 -400 (mg/dL) Final IgM 04/22/2023 16:10:49 153 40-230 (mg /dL) Final Performing Location [facility] - [address] [place] [address]
--- OUTSIDE RECORDS SUMMARY | 2023-06-14 21:43 | External Medical Summary | Summary of Care ---
Author Name Unknown Organization [facility] Address [address] [place] [address] Phone [phone] Care Team Providers Care Health Counselor Name Role Phone Cory Ross PA-C Primary Care Provider + [phone] Reason for Visit * Reason Comments Research Screening Encounter Details Date Type Department Care Team (Late st Contact Info) Description 04/17/2023 Documentation Hematology Oncology [facility] [place] [address] [place] [address] [facility] Office Hem Onc [address] [place] [address] Allergies No known active allergiesdocumented as of this encounter (statuses as of 04/17/2023) Medications Medication Sig Dispensed Refills Start Date [...] as of this encounter (statuses as of 04/17/2023) Active Problems Problem Noted Date Diagnosed Date [...] as of this encounter (statuses as of 04/17/2023) Resolved Problems Problem Noted Date Diagnosed Date Resolved Date Alcohol withdrawal syndrome with complication 03/30/19 24 04/02/2023 Neutropenic fever 03/30/2023 04/02/2023 Acute alcoholic intoxication with complication 03/29/2023 03/30/2023 Leucopenia 03/29/2023 04/02/2023 Drug-induced liver injury 03/29/2023 Acute hyperactive alcohol withdrawal delirium 04/05/19 23 03/30/2023 Compression fracture of L1 lumbar vertebra 08/09/2011 03/29/2023 documented as of this encounter (statuses as of 04/17/2023) Immunizations Name Administration Dates Next Due Pneumococcal [...] as of this encounter Miscellaneous Notes * Research Note - Tiana Mcmahon RN - 04/17/2023 1:41 PM EST At the request of Dr. Zhang, this patient has been screened for possible clinical trials optionsfor their diagnosis. There are no clinical trials available at this time for this patient. Patient screened by Tiana Mcmahon RN CRCII Tiana Mcmahon RN CRCII Clinical Reasearch Coordinator II [facility] [email or web address] [phone] . documented in this encounter Plan of Treatment Upcoming Encounters Date Type Department Care Team (Late st Contact Info) Description 04/22/2023 3:00 PM EST Office Visit Hematology Oncology [facility] [address] [place] [address] Gavin Zhang MD [address] [place] [address] Health Maintenance Due Date Last [...] Advance Directives occurred with: Patient Care Teams Health Counselor Relationship Specialty Start Date End Date Cory Ross PA-C [address] [place] [address] [place] [address] PCP - General Physician Concrete Mixer 10/27/22 documented as of this encounter
--- OUTSIDE RECORDS SUMMARY | 2023-06-14 21:43 | External Medical Summary ---
Author Name Unknown Address Unknown Organization [id number]:LAB[facility]ATORY [facility] [place] - [address] [place] [address] Laboratory Report Ordering Provider Test Date Status HUNTER MURRAY 04/15/2023 11:36:21 Final Observation Date Value Abnormality Reference (Units ) Status BUN 04/15/2023 11:36:21 9 6-20 (mg/dL) Final Creatinine 04/15/2023 11:36:21 0.7 0.6-1.2 (mg/dL) Final Glomerular filtration rate/1.73 sq M.predicted [Volume Rate/Area] in Serum, Plasma or Blood by Creatinine-based formula (CKD-EPI) 04/15/2023 11:36:21 >90 >=60 (mL/min) Final eGFR is calculated based on the CKD-EPI 2020 equation SODIUM 04/15/2023 11:36:21 140 135-146 (m mol/L) Final Potassium 04/15/2023 11:36:21 4.3 3.5-5.1 (m mol/L) Final Cl 04/15/2023 11:36:21 103 98-107 (mm ol/L) Final CO2 04/15/2023 11:36:21 27 22-32 (mmo l/L) Final Anion gap 04/15/2023 11:36:21 10 7-15 (mmol /L) Final Glucose 04/15/2023 11:36:21 99 70-120 (mg /dL) Final Albumin 04/15/2023 11:36:21 3.8 3.8-5.0 (g /dL) Final AST (Aspartate aminotransferase) 04/15/2023 11:36:21 192 Above high normal 10-50 (U/L) Final Alk Phos 04/15/2023 11:36:21 70 35-130 (U/ L) Final Bilirubin, Total 04/15/2023 11:36:21 0.8 <=1 .2 (mg/dL) Final Calcium 04/15/2023 11:36:21 9.4 8.4-10.2 ( mg/dL) Final Protein 04/15/2023 11:36:21 6.7 6.0-8.3 (g /dL) Final ALT (Alanine aminotransferase) 04/15/2023 11:36:21 168 Above high normal 10-50 (U/L) Final Performing Location LABORATORY [facility] - [address] [facility] [address]
--- OUTSIDE RECORDS SUMMARY | 2023-06-14 21:43 | External Medical Summary ---
Author Name Unknown Address Unknown Organization K01:[facility] - [address] [place] [address] Laboratory Report Ordering Provider Test Date Status ANGELO AMAYA 04/22/2023 16:10:49 Final Observation Date Value Abnormality Reference (Units ) Status Folic Acid 04/22/2023 16:10:49 17.1 >4.5 (ng/ mL) Final Performing Location [facility] - [address] [place] [address]
--- OUTSIDE RECORDS SUMMARY | 2023-06-14 21:43 | External Medical Summary ---
Author Name Unknown Address Unknown Organization [id number][facility] [place] [address] [place] [address] Laboratory Report Ordering Provider Test Date Status ANGELO AMAYA 04/22/2023 16:10:49 Final Observation Date Value Abnormality Reference (Units ) Status WBC, Total 04/22/2023 16:10:49 5.98 4.00-10.80 (K/uL) Final RBC 04/22/2023 16:10:49 4.33 4.50-5.25 (M/uL) Final Hemoglobin 04/22/2023 16:10:49 13.3 Below low normal 14.0-16.8 (g/dL) Final HCT 04/22/2023 16:10:49 40.3 40.0-48.4 (%) Final MCV 04/22/2023 16:10:49 93.1 82.0-99.5 (fL) Final MCH 04/22/2023 16:10:49 30.7 27.0-34.0 (pg) Final MCHC 04/22/2023 16:10:49 33.0 32.0-36.0 (g/dL) Final RDW 04/22/2023 16:10:49 16.2 11.5-15.5 (%) Final Platelets 04/22/2023 16:10:49 168 140-400 (K/uL) Final MPV 04/22/2023 16:10:49 10.3 6.6-11.1 (fL) Final Nucleated erythrocytes/100 leukocytes [Ratio] in Blood by Automated count 04/22/2023 16:10:49 0 <=0 (/100 WBCs) Final Performing Location [facility] [place] [address] [place] [address]
--- OUTSIDE RECORDS SUMMARY | 2023-06-14 21:43 | External Medical Summary | Summary of Care ---
Author Name Unknown Organization [facility] Address [address] [place] [address] Phone [phone] Care Team Providers Care Catalyst Manufacturing Operator Name Role Phone Cory Ross PA-C Primary Care Provider + [phone] Encounter Details Date Type Department Care Team ([facility] st Contact Info) Description 04/24/[address] [address] Cory Ross PA-C [address] [place] [address] Allergies No known active allergiesdocumented as of this encounter (statuses as of 04/24/2023) Medications Medication Sig Dispensed Refills Start Date [...] large muscle every month for 11 doses. 44 mL 0 04/22/2023 02/17/2024 Active documented as of this encounter (statuses as of 04/24/2023) Active Problems Problem Noted Date Diagnosed Date [...] as of this encounter (statuses as of 04/24/2023) Resolved Problems Problem Noted Date Diagnosed Date Resolved Date Alcohol withdrawal syndrome with complication 03/30/19 24 04/02/2023 Neutropenic fever 03/30/2023 04/02/2023 Acute alcoholic intoxication with complication 03/29/2023 03/30/2023 Leucopenia 03/29/2023 04/02/2023 Drug-induced liver injury 03/29/2023 Acute hyperactive alcohol withdrawal delirium 04/05/19 23 03/30/2023 Compression fracture of L1 lumbar vertebra 08/09/2011 03/29/2023 documented as of this encounter (statuses as of 04/24/2023) Immunizations Name Administration Dates Next Due Pneumococcal [...] encounter Miscellaneous Notes * Telephone Encounter - Amber Reyna OSA - 04/24/2023 2:19 PM EST Created in error documented in this encounter Plan of Treatment [...] Advance Directives occurred with: Patient Care Teams Catalyst Manufacturing Operator Relationship Specialty Start Date End Date Cory Ross PA-C [address] [place], [place] [address]KELSEY conteh [phone] PCP - General Physician Compressor Station Engineer 10/27/22 documented as of this encounter
--- OUTSIDE RECORDS SUMMARY | 2023-06-14 21:43 | External Medical Summary ---
Author Name Unknown Address Unknown Organization K01:[facility] - [address] [place] [address] Laboratory Report Ordering Provider Test Date Status CHRISTEL AMAYAJAMES 04/22/2023 16:10:49 Final Observation Date Value Abnormality Reference (Units ) Status SYNC LEUKOCYTES IN BLOOD BY AUTOMATED COUNT 04/22/2023 16:10:49 5.98 4.00-10.80 (K/uL) Final Segs 04/22/2023 16:10:49 49.7 40.0-75.0 (%) Final Lymphs % 04/22/2023 16:10:49 36.6 18.0-42.0 (%) Final Monos 04/22/2023 16:10:49 8.7 1.0-11.0 (%) Final Eosinophils 04/22/2023 16:10:49 4.0 0.0-6.0 (%) Final Basos 04/22/2023 16:10:49 0.8 0.0-2.0 (%) Final Immature Granulocyte, Percent 04/22/2023 16:10:49 0.2 0.0-2.0 (%) Final Absolute Segs 04/22/2023 16:10:49 2.97 1.80-7.70 (K/uL) Final Lymphs, absolute 04/22/2023 16:10:49 2.19 1.00-4.80 (K/ul) Final Monos, Abs 04/22/2023 16:10:49 0.52 0.00-1.10 (K/uL) Final Eos, Abs 04/22/2023 16:10:49 0.24 0.00-0.70 (K/uL) Final Basos, Abs 04/22/2023 16:10:49 0.05 0.00-0.20 (K/uL) Final Immature Granulocytes, Number 04/22/2023 16:10:49 0.01 0.00-0.20 (K/uL) Final Performing Location [facility] - [address] [facility] [address]
--- OUTSIDE RECORDS SUMMARY | 2023-06-14 21:43 | External Medical Summary ---
Author Name Unknown Address Unknown Organization K01:[facility] [address] [facility] [address] Laboratory Report Ordering Provider Test Date Status LINDA CHIUR 04/17/2023 14:22:44 Final Cutoff Concentrations:
Drug Level
Amphetamines 500 [...] Reference (Units ) Status Amphetamines, Urine screen 04/17/2023 14:22:44 Negative Negative Final Benzodiazepines, Urine screen 04/17/2023 14:22:44 Positive Abnormal Negative Final Cannabinoids, Urine screen 04/17/2023 14:22:44 Positive Abnormal Negative Final Cocaine Metabolite, Urine screen 04/17/2023 14:22:44 Negative Negative Final fentaNYL [Presence] in Urine by Screen method 04/17/2023 14:22:44 Negative Negative Final HYDROcodone [Presence] in Urine by Screen method 04/17/2023 14:22:44 Negative Negative Final 1-Rovmwvjcty-1,5-Dimeth yl-3,3-Diphenylpyrrolid ine (EDDP) [Presence] in Urine 04/17/2023 14:22:44 Negative Negative Final Opiates, Urine screen 04/17/2023 14:22:44 Negative Negative Final oxyCODONE [Presence] in Urine by Screen method 04/17/2023 14:22:44 Negative Negative Final Performing Location [facility] - [address] [facility] [address]
--- OUTSIDE RECORDS SUMMARY | 2023-06-14 21:43 | External Medical Summary ---
Author Name Unknown Address Unknown Organization K01:LABORATORY [facility] [place] - [facility] [address] [place] [address] Laboratory Report Ordering Provider Test Date Status ANGELO AMAYA 04/22/2023 16:10:49 Final Observation Date Value Abnormality Reference (Units ) Status Retic, % (auto) 04/22/2023 16:10:49 1.13 0.80-1.90 (%) Final Reticulocytes, Absolute 04/22/2023 16:10:49 48.9 31.3-100.1 (K/uL) Final Reticulocyte fraction, immature 04/22/2023 16:10:49 9.4 2.5-20.6 (%) Final Reticulocyte HGB 04/22/2023 16:10:49 33.9 29.7-37.4 (pg) Final Performing Location LABORATORY [facility] [place] - [address] [place] [address]
--- OUTSIDE RECORDS SUMMARY | 2023-06-14 21:43 | External Medical Summary ---
Author Name Unknown Address Unknown Organization K01:LABORATORY [facility] [place] - [address] [place] [address] Laboratory Report Ordering Provider Test Date Status HUNTER MURRAY 04/15/2023 11:36:21 Final Warfarin Therapy
INR: 2 .0-3.0 conventional anticoagulation
INR: 2.5- 3.5 high intensity anticoagulation Observation Date Value Abnormality Reference (Units ) Status PT 04/15/2023 11:36:21 15.3 Above high normal 11 .6-15.2 (seconds) Final INR 04/15/2023 11:36:21 1.2 0.8-1.2 Final Performing Location LABORATORY [facility] [place] - [address] [place] [address]
--- OUTSIDE RECORDS SUMMARY | 2023-06-14 21:43 | External Medical Summary ---
Author Name Unknown Address Unknown Organization K01:LABORATORY [facility] [place] - [address] [place] [address] Laboratory Report Ordering Provider Test Date Status HUNTER MURRAY 04/15/2023 11:36:21 Final Observation Date Value Abnormality Reference (Units ) Status Alpha-Fetoprotein 04/15/2023 11:36:21 5.8 0. 0-8.3 (ng/mL) Final Performing Location [facility] - [address] [place] [address]
--- OUTSIDE RECORDS SUMMARY | 2023-06-14 21:43 | External Medical Summary ---
Author Name Unknown Address Unknown Organization K[facility] - [address] [place] [address] Laboratory Report Ordering Provider Test Date Status ANGELO AMAYA 04/22/2023 16:10:49 Final Observation Date Value Abnormality Reference (Units ) Status LDH 04/22/2023 16:10:49 232 <=250 (U/L ) Final Result may be falsely elevat ed due to hemolysis. Performing Location [facility] - [address] [place] [address]
--- OUTSIDE RECORDS SUMMARY | 2023-06-14 21:43 | External Medical Summary | Summary of Care ---
Author Name Unknown Organization [facility] Address [address] [place] [address] Phone [phone] Care Team Providers Care Recycling Director Name Role Phone Cory Ross PA-C Primary Care Provider + [phone] Encounter Details Date Type Department Care Team (Late st Contact Info) Description 04/15/2023 12:30 PM [facility] Laboratory [facility] [phone] [address] Alcohol induced fatty liver Allergies No known active allergiesdocumented as of this encounter (statuses as of 04/15/2023) Medications Medication Sig Dispensed Refills Start Date [...] as of this encounter (statuses as of 04/15/2023) Active Problems Problem Noted Date Diagnosed Date [...] as of this encounter (statuses as of 04/15/2023) Resolved Problems Problem Noted Date Diagnosed Date Resolved Date Alcohol withdrawal syndrome with complication 03/30/19 24 04/02/2023 Neutropenic fever 03/30/2023 04/02/2023 Acute alcoholic intoxication with complication 03/29/2023 03/30/2023 Leucopenia 03/29/2023 04/02/2023 Drug-induced liver injury 03/29/2023 Acute hyperactive alcohol withdrawal delirium 04/05/19 23 03/30/2023 Compression fracture of L1 lumbar vertebra 08/09/2011 03/29/2023 documented as of this encounter (statuses as of 04/15/2023) Immunizations Name Administration Dates Next Due Pneumococcal [...] 3:00 PM EST Office Visit Hematology Oncology [place] [address] [place] [address] Gavin Zhang MD [address] [place] [address] Pending Results Name Type Priority Associated Diagnoses Date /Time CBC Lab Routine Alcohol induced fatty liver 04/15/2023 11:36 AM EST PT INR Lab Routine Alcohol induced fatty liver 04/15/2023 11:36 AM EST COMPREHENSIVE METABOLIC PANEL Lab Routine Alcohol induced fatty liver 04/15/2023 11:36 AM EST ALPHA-FETOPROTEIN TUMOR MARKER Lab Routine Alcohol induced fatty liver 04/15/2023 11:36 AM EST Health Maintenance Due Date Last Done Comments [...] encounter Visit Diagnoses Diagnosis Alcohol induced fatty liver Alcoholic fatty liver documented in this encounter Advance Directives Latest Code Status on File Code Status Date Activated Date Inactivated Comments Full Code 03/29/2023 1:43 PM 04/02/2023 2:03 PM This order reflects the patients wishes and were consensually agreed upon. Question Answer Comments Discussion of Advance Directives occurred with: Patient Care Teams Recycling Director Relationship Specialty Start Date End Date Cory Ross PA-C [address] [place] [address] PCP - General Physician Photographic Lithographer 10/27/22 documented as of this encounter
--- OUTSIDE RECORDS SUMMARY | 2023-06-14 21:43 | External Medical Summary | Summary of Care ---
Author Name Unknown Organization [facility] Address [address] [place] [address] Phone [phone] Care Team Providers Care Integrity Director Name Role Phone Cory Ross PA-C Primary Care Provider + [phone] Reason for Visit * Reason Comments NEW PATIENT * Evaluate & Treat - Unlimited Visits (Within 30 days (routine)) - Pending Review Specialty Diagnoses / Procedures Referred By Danielle luong Referred To Contact Hematology/Oncology / Hematology Oncology Diagnoses Thrombocytopenia due to drugs Other drug-induced neutropenia (HCC) Osman Hadley, DO [address] [facility] [place] [address] Referral ID Status Reason Start Date Expiration Date Visits Requested Visits Authorized [id number] Pending Review Specialty Services Required 04/02/[phone] Encounter Details Date Type Department Care Team (Late st Contact Info) Description 04/22/2023 3:00 PM EST Office Visit Hematology Oncology [facility] [address] [place] [address] Gavin Zhang MD [address] [place] [address] Hepatosplenomegaly*; Thrombocytopenia (HCC) Allergies No known active allergiesdocumented as of this encounter (statuses as of 04/23/2023) Medications Medication Sig Dispensed Refills Start Date [...] as of this encounter (statuses as of 04/23/2023) Active Problems Problem Noted Date Diagnosed Date [...] as of this encounter (statuses as of 04/23/2023) Resolved Problems Problem Noted Date Diagnosed Date Resolved Date Alcohol withdrawal syndrome with complication 03/30/1904/02/2023 Neutropenic fever 03/30/2023 04/02/2023 Acute alcoholic intoxication with complication 03/29/2023 03/30/2023 Leucopenia 03/29/2023 04/02/2023 Drug-induced liver injury 03/29/2023 Acute hyperactive alcohol withdrawal delirium 04/05/1903/30/2023 Compression fracture of L1 lumbar vertebra 08/09/2011 03/29/2023 documented as of this encounter (statuses as of 04/23/2023) Immunizations Name Administration Dates Next Due Pneumococcal [...] Tobacco: Never Tobacco Cessation:Ready to Q uit: Not Asked; Counseling Given: Not Answered Alcohol Use Standard Drinks/Week Comments Not Currently [...] Sign Reading Time Taken Comments Blood Pressure 128/72 04/22/2023 2:48 PM EST Pulse 82 04/22/2023 2:48 PM EST Temperature 37 C (98.6 F) 04/22/2023 2:48 PM EST Respiratory Rate 18 04/22/2023 2:48 PM EST Oxygen Saturation 96% 04/22/2023 2:48 PM EST Inhaled Oxygen Concentration - - Weight 98.5 kg (217 lb 1.6 oz) 04/22/2023 2:48 P M EST Height 175.3 cm (5' 9.02") 04/22/2023 2:48 PM ES T Body Mass Index 32.05 04/22/2023 2:48 PM EST documented in this encounter Progress Notes * Gavin Zhang MD - 04/22/2023 3:43 PM EST Data Source : Patient and EPIC Diagnosis: Thrombocytopenia and neutropenia in the setting of heavy alcohol consumption Subjective HPI:Esdras Storey was referred by Osman Hadley DO for thrombocytopenia Was being seen at [facility] and has been having sinus bleeding and gum bleeding blood was taken and was told that platelets were low and was sent to the ED was admitted Got platelet transfusion plt <10 and got pulse dose dex 4 days Since discharge no bleeding Ocassional from the nose Gaining weight no weight No night sweats Currently he feels well. He has not had any bleeding from any site. He says he has no longer drinking as of his recent admission to the hospital. He denies any nausea vomiting. Today Review of Symptoms: As above all others negative Allergies:Patient has no known allergies. Current Meds: Outpatient Medications Marked as Taking for the 04/22/23 encounter (Office Visit) with Gavin Zhang MD Medication Sig Naltrexone 380 MG Intramuscular Suspension Reconstituted (Vivitrol) Inject 380 mg into a large muscle every month for 11 doses. Acamprosate Calcium 333 MG Oral Tablet Delayed Release (Campral) Take 2 Tablets by mouth in the morning and 2 Tablets at noon and 2 Tablets before bedtime. Folic Acid 1 MG Oral Tablet Take 1 Tablet by mouth in the morning. Thiamine HCl 100 MG Oral Tablet (vitamin B-1) Take 1 Tablet by mouth in the morning. Acetaminophen 500 MG Oral Tablet (Tylenol Extra Strength) Take 1 Tablet by mouth every 6 hours as needed. 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 [D69.59, T50.905A] 03/29/2023 Alcohol induced fatty liver [K70.0] 03/29/2023 Lung nodule seen on imaging study [R91.1] 03/29/2023 Elevated liver transaminase level [R74.01] 03/29/2023 Generalized anxiety disorder [F41.1] 03/29/2023 Hepatosplenomegaly [R16.2] 03/28/2023 OCD (obsessive compulsive disorder) [F42.9] 01/31/2023 Other insomnia [G47.09] 01/31/2023 Medical marijuana use [Z79.899] 01/31/2023 Cigarette smoker [F17.210] 11/24/2022 Compression fracture of T12 vertebra (HCC) [S22.080A] 08/09/2011 ADVANCE DIRECTIVE INFORMATION 03/08/2005 Not applicable (under age of 18) Past Surgical History: Procedure Laterality Date COLONOSCOPY, DIAGNOSTIC (RECTUM) 03/24/2014 normal bx/COLONOSCOPY FLEXIBLE PROXIMAL DIAGNOSTIC performed by Godfrey Enrique MD at [facility] INFORMATION tubes in ears REMOVE TONSILS & ADENOIDS, UNDER 12 Tonsillectomy/Adenoids,<12 Y/O Social History Socioeconomic History Marital status: Single Spouse name: Not on file Number of children: Not on file Years of education: Not on file Highest education level: Not on file Occupational History Not on file Tobacco Use Smoking status: Every Day Current packs/day: 0.50 Types: Cigarettes Smokeless tobacco: Never Vaping Use Vaping Use: Some days Substances: Nicotine, THC Devices: Disposable Substance and Sexual Activity Alcohol use: Not Currently Comment: Denies since 2 weeks ago Drug use: Yes Types: Marijuana Comment: THC medical card. Benzos Sexual activity: Not on file Other Topics Concern Service Not Asked Blood Transfusions Not Asked Caffeine Concern Not Asked Occupational Exposure Not Asked Hobby Hazards Not Asked Sleep Concern Not Asked Stress Concern Not Asked Weight Concern Not Asked Special Diet Not Asked Back Care Not Asked Exercise Not Asked Bike Helmet Not Asked Seat Belt Yes Self-Exams Not Asked Social History Narrative Not on file Social Determinants of Health Financial Resource Strain: Not on file Food Insecurity: No Food Insecurity (10/26/2022) Hunger Vital Sign Worried About Running Out of Food in the Last Year: Never true Ran Out of Food in the Last Year: Never true Transportation Needs: Not on file Physical Activity: Not on file Stress: Not on file Social Connections: Not on file Intimate Partner Violence: Not on file Housing Stability: Not on file Family History Problem Relation Age of Onset Other (skin disorders) Unknown denies any in family Physical Exam: BP 128/72 | Pulse 82 | Temp 37 C (98.6 F) (Tympanic) | Resp 18 | Ht 1.753 m (5' 9.02") | Wt 98.5 kg (217 lb 1.6 oz) | SpO2 96% | BMI 32.05 kg/m | BSA 2.19 m General Appearance: well appearing male in no obvious distress. Skin: Normal HEENT: Normal Neck: Normal - Supple Lymph Nodes: Normal - No palpable lymph nodes in the neck, supraclavicular, axillary, inguinal, or epitrochlear areas Lungs/Thorax:Clear Heart: Normal - S1 S2 + Abdomen: Normal - Soft Musculoskeletal: Normal - No pain on palpation over bony prominence, no edema, no evidence of gout,no joint or bony deformity Neurologic: Normal - Grossly intact Absolute Neutrophils Absolute Lymphocytes Latest Ref Rng 1.80 - 7.70 K/uL 1.00 - 4.80 K/ul 1.80 - 7.70 K/uL 1.00 - 4.80 K/uL 11/24/2022 2.51 2.33 03/28/2023 0.83 (L) 1.36 03/29/2023 0.61 (L) 1.11 03/30/2023 0.77 (L) 0.80 (L) 03/31/2023 1.19 (L) 0.61 (L) 04/01/2023 3.55 0.96 (L) 3.76 0.98 (L) 04/02/2023 3.44 1.31 3.60 1.29 04/15/2023 Legend: (L) Low WBC Latest Ref Rng 4.00 - 10.80 K/uL 11/24/2022 5.64 03/28/2023 2.40 (L) 03/29/2023 1.84 (L) 03/30/2023 1.73 (L) 03/31/2023 2.00 (L) 04/01/2023 5.15 04/02/2023 5.62 PLT Latest Ref Rng 140 - 400 K/uL 11/24/2022 146 03/28/2023 18 (LL) 03/29/2023 13 (LL) <10 (LL) 03/30/2023 18 (LL) 03/31/2023 20 (LL) 04/01/2023 25 (L) 04/02/2023 40 (L) 04/15/2023 183 Recent Results (from the past 24 hour(s)) COMPREHENSIVE METABOLIC PANEL Collection Time: 04/22/23 4:10 PM Result Value Ref Range BUN 9 6 - 20 mg/dL Creatinine 0.6 0.6 - 1.2 mg/dL Estimated Glomerular Filtration Rate >90 >=60 mL/min Sodium 136 135 - 146 mmol/L Potassium 4.4 3.5 - 5.1 mmol/L Chloride 101 98 - 107 mmol/L CO2 25 22 - 32 mmol/L Anion Gap 10 7 - 15 mmol/L Glucose 82 70 - 120 mg/dL Albumin 4.0 3.8 - 5.0 g/dL AST 311 (H) 10 - 50 U/L Alkaline Phosphatase 74 35 - 130 U/L Bilirubin, Total 1.1 <=1.2 mg/dL Calcium 9.5 8.4 - 10.2 mg/dL Protein 7.4 6.0 - 8.3 g/dL ALT 282 (H) 10 - 50 U/L RETICULOCYTE PANEL Collection Time: 04/22/23 4:10 PM Result Value Ref Range Reticulocyte Percent 1.13 0.80 - 1.90 % Absolute Reticulocyte 48.9 31.3 - 100.1 K/uL Immature Reticuloctye Fraction 9.4 2.5 - 20.6 % Reticulocyte Hemoglobin 33.9 29.7 - 37.4 pg IMMUNOGLOBULIN QUANTITATIVE Collection Time: 04/22/23 4:10 PM Result Value Ref Range IgG 1,281 700 - 1,600 mg/dL IgA 438 (H) 70 - 400 mg/dL IgM 153 40 - 230 mg/dL VITAMIN B12 Collection Time: 04/22/23 4:10 PM Result Value Ref Range Vitamin B12 1,050 232 - 1,245 pg/mL FOLIC ACID Collection Time: 04/22/23 4:10 PM Result Value Ref Range Folic Acid 17.1 >4.5 ng/mL TSH Collection Time: 04/22/23 4:10 PM Result Value Ref Range TSH 1.44 0.27 - 4.20 uIU/mL LD Collection Time: 04/22/23 4:10 PM Result Value Ref Range LD 232 <=250 U/L FERRITIN Collection Time: 04/22/23 4:10 PM Result Value Ref Range Ferritin 526 (H) 30 - 400 ng/mL CBC Collection Time: 04/22/23 4:10 PM Result Value Ref Range WBC 5.98 4.00 - 10.80 K/uL RBC 4.33 4.50 - 5.25 M/uL HGB 13.3 (L) 14.0 - 16.8 g/dL HCT 40.3 40.0 - 48.4 % MCV 93.1 82.0 - 99.5 fL MCH 30.7 27.0 - 34.0 pg MCHC 33.0 32.0 - 36.0 g/dL RDW 16.2 11.5 - 15.5 % PLT 168 140 - 400 K/uL MPV 10.3 6.6 - 11.1 fL nRBCs 0 <=0 /100 WBCs DIFFERENTIAL, AUTOMATED Collection Time: 04/22/23 4:10 PM Result Value Ref Range WBC 5.98 4.00 - 10.80 K/uL Neutrophils % 49.7 40.0 - 75.0 % Lymphocytes % 36.6 18.0 - 42.0 % Monocytes % 8.7 1.0 - 11.0 % Eosinophils % 4.0 0.0 - 6.0 % Basophils % 0.8 0.0 - 2.0 % Immature Granulocytes % 0.2 0.0 - 2.0 % Absolute Neutrophils 2.97 1.80 - 7.70 K/uL Absolute Lymphocytes 2.19 1.00 - 4.80 K/ul Absolute Monocytes 0.52 0.00 - 1.10 K/uL Absolute Eosinophils 0.24 0.00 - 0.70 K/uL Absolute Basophils 0.05 0.00 - 0.20 K/uL Absolute Immature Granulocytes 0.01 0.00 - 0.20 K/uL Imaging: MRI LIVER W WO CONTRAST Result Date: 04/16/2023 IMPRESSION Hepatomegaly. Liver measures 25 cm long. Appearance suggesting steatohepatitis. Marked splenomegaly. Spleen measures 19.3 cm long. 8 mm hypoenhancing focus. Small ascites. Small gastroesophageal varices. CT CHEST WO CONTRAST Result Date: 03/29/2023 IMPRESSION: Tiny sub 6 mm nodules. If the patient does not have known cancer, follow up should be based on clinical information because of the low risk of cancer in this age group. (Reference: Babita) REFERENCES: Babita Oneil, et al. Guidelines for Management of Incidental Pulmonary Nodules Detected on CT Images: From the Fleischner Society 2017. Radiology. 2017;284(1):228-243. THIS DOCUMENT HAS BEEN ELECTRONICALLY SIGNED BY OZ BARRON MD CT ABD/PELVIS W IV CONTRAST - WO ORAL CONTRAST Result Date: 03/29/2023 IMPRESSION: Liver is enlarged with diffuse marked fatty infiltration. Additionally there is large geographic low-attenuation area in the right lobe of the liver measuring approximately 10.1 x 63.3 mm, and another similar area is seen adjacent to the gallbladder fossa measuring 42.2 x 24.5 mm. Further evaluation with hepatic protocol nonemergent MRI examination is recommended to rule out underlying geographic lesions versus geographic areas of fatty infiltration. Spleen is enlarged measuring 16.6 cm in craniocaudal direction. Nondistention versus mild thickening of the ascending colon and transverse colon without any surrounding inflammatory changes. Rest of the colon and small bowel are unremarkable. Stomach is unremarkable. Pleural base nodule in the right lung base measuring 3 mm, (series 4, image 25). Further evaluation with CT chest is recommended. FLEISCHNER SOCIETY CRITERIA: Solidpulmonary nodule: Please note these follow-up guidelines apply to newly detected indeterminate solid nodules in persons 35 years of age or older. SOLID NODULES <6 mm Single nodule: Low risk: No routine follow-up in low risk patients High risk: Optional CT at 12 months Multiple nodules: Low risk:No routine follow-up in low risk patients High risk: Optional CT at 12 months 6-8 mm Single nodule:Low risk: CT at 6-12 months, then consider CT at 18-24 months High risk: CT at 6-12 months, then CTat 18-24 months Multiple nodules: Low risk - CT at 3-6 months, then consider CT at 18-24 months High risk - CT at 3-6 months, then at 18-24 months >8 mm Single nodule: Low risk: Consider CT at 3 months, PET/CT, or tissue sampling High risk: Consider CT at 3 months, PET/CT, or tissue sampling Multiple nodules: Low risk: CT at 3-6 months, then consider CT at 18-24 months High risk: CT at 3-6 months, then at 18-24 months SUB-SOLID NODULES <6 mm Single nodule: Ground glass: No routine follow-up Part Solid: No routine follow-up Multiple nodules: CT at 3-6 months. If stable, consider CT at 2and 4 years =/> 6 mm Single nodule: Ground glass: CT at 6-12 months to confirm persistence, thenCT every 2 years until 5 years Part solid: CT at 3-6 months to confirm persistence. If unchanged and solid component remains <6 mm, annual CT should be performed for 5 years. Multiple nodules: CT at 3-6 months. Subsequent management based on most suspicious nodule(s). http://pubs.rsna.org/doi/full/10.1148/[email or web address] THIS DOCUMENT HAS BEEN ELECTRONICALLY SIGNED BY BINA FORD MD P Objective Assessment:Esdras Storey is a 32 year old male with thrombocytopenia neutropenia the setting of heavy alcohol use. Plan: Thrombocytopenia: I reviewed his lab studies at the time of admission. He did have thrombocytopenia as well as neutropenia and lymphopenia in addition to elevated transaminases while he was hospitalized. I think his acute thrombocytopenia was likely related to alcohol intoxication it has since resolved. He did receive few doses of pulse dose dexamethasone and platelet transfusions so that could be a possibility ofITP regardless it is improved and he is doing well without any transfusions with resolution of his cytopenias. Shall observe him for now. Splenomegaly: I am uncertain of the etiology of this this seems to have increased in size compared to the scan from earlier at the time of admission and his MRI now. Clinically he has no evidence of a lymphoproliferative or myeloproliferative disorder at this time however we shall get a peripheral blood flow cytometry and I shall try and get his peripheral blood to review. This could be secondaryto portal hypertension as the MRI does call a few varices. Shall discuss this case with Gastroenterology Plan: Cbc with wbc differential Comprehensive metabolic panel Reticulocyte panel Serum free light chains Immunoglobulin quantitative Vitamin b12 Folic acid Tsh Methylmalonic acid, serum Ld Serum immunofixation Ferritin Flow cytometry, leukemia lymphoma panel Cbc Differential, automated Clinician peripheral blood slide request There are no diagnoses linked to this encounter. Gavin Zhang MD Hematology Oncology [address] [address] documented in this encounter Nursing Notes * Florencio Jacobs MED ASSIST - 04/22/2023 2:48 PM EST Room 1 Patient was instructed to not get up on the exam table/exam chair until directed and assisted by their provider; patient is to remain seated in the chair/ wheelchair/ exam table/ exam chair for fall prevention and safety reasons. Patient is aware to have assistance to step down off exam table/exam chair with personnel. Patient voiced full comprehension of instructions. documented in this encounter Plan of Treatment Pending Results Name Type Priority Associated Diagnoses Date /Time METHYLMALONIC ACID, SERUM Lab Routine Thrombocytopenia (HCC) 04/22/2023 4:10 PM EST SERUM IMMUNOFIXATION Lab Routine Thrombocytopenia (HCC) 04/22/2023 4:10 PM EST FLOW CYTOMETRY, LEUKEMIA LYMPHOMA PANEL Lab Routine Hepatosplenomegaly Thrombocytopenia (HCC) 04/22/2023 4:10 PM EST Scheduled Orders Name Type Priority Associated Diagnoses Orde r Schedule METHYLMALONIC ACID, SERUM Lab Routine Thrombocytopenia (HCC) Expected: 04/22/2023, Expires: 04/22/2024 SERUM IMMUNOFIXATION Lab Routine Thrombocytopenia (HCC) Expected: 04/22/2023, Expires: 04/22/2024 Health Maintenance Due Date Last Done Comments [...] Not on filedocumented as of this encounter Procedures Procedure Name Priority Date/Time Associated Diagnosis Comments CLINICIAN PERIPHERAL BLOOD SLIDE REQUEST STAT 04/22/2023 4:10 PM EST Hepatosplenomegaly Thrombocytopenia (HCC) DIFFERENTIAL, AUTOMATED Routine 04/22/19 4:10 PM EST Thrombocytopenia (HCC) RETICULOCYTE PANEL Routine 04/22/2023 4: 10 PM EST Thrombocytopenia (HCC) IMMUNOGLOBULIN QUANTITATIVE Routine 04/22/2023 4:10 PM EST Thrombocytopenia (HCC) COMPREHENSIVE METABOLIC PANEL STAT 04/22/2023 4:10 PM EST Thrombocytopenia (HCC) SERUM FREE LIGHT CHAINS Routine 04/22/19 4:10 PM EST Thrombocytopenia (HCC) FOLIC ACID Routine 04/22/2023 4:10 PM EST Thrombocytopenia (HCC) CBC Routine 04/22/2023 4:10 PM EST Thrombocytopenia (HCC) LD Routine 04/22/2023 4:10 PM EST Thrombocytopenia (HCC) CBC Routine 04/22/2023 4:10 PM EST Thrombocytopenia (HCC) TSH Routine 04/22/2023 4:10 PM EST Thrombocytopenia (HCC) FERRITIN Routine 04/22/2023 4:10 PM EST Thrombocytopenia (HCC) VITAMIN B12 Routine 04/22/2023 4:10 PM EST Thrombocytopenia (HCC) documented in this encounter Results * CLINICIAN PERIPHERAL BLOOD SLIDE REQUEST (04/22/2023 4:10 PM EST) Clinician Slide Ready? Yes 04/23/2023 11:26 AM EST LABORATORY C Blood Venous blood specimen / Unknown Venipuncture / Unknown 04/22/2023 4:10 PM EST 04/22/2023 4:16 PM EST Gavin Zhang MD LAB BLOOD ORDERABLES LAB[facility]ATORY [facility] [address] [place] [address] * DIFFERENTIAL, AUTOMATED (04/22/2023 4:10 PM EST) WBC 5.98 4.00 - 10.80 K/uL 04/22/2023 4:26 PM EST LABORATORY [facility] Neutrophils % 49.7 40.0 - 75.0 % 04/22/2023 4:26 PM EST LAB[facility]ATORY [facility] Lymphocytes % 36.6 18.0 - 42.0 % 04/22/2023 4:26 PM EST LAB[facility]ATORY [facility] Monocytes % 8.7 1.0 - 11.0 % 04/22/2023 4:26 PM EST LAB[facility]AT[facility] Eosinophils % 4.0 0.0 - 6.0 % 04/22/2023 4:26 PM EST LAB[facility]ATORY [facility] Basophils % 0.8 0.0 - 2.0 % 04/22/2023 4:26 PM EST LAB[facility]ATORY [facility] Immature Granulocytes % 0.2 0.0 - 2.0 % 04/22/2023 4:26 PM EST LAB[facility]ATORY [facility] Absolute Neutrophils 2.97 1.80 - 7.70 K/uL 04/22/2023 4:26 PM EST LAB[facility]ATORY [facility] Absolute Lymphocytes 2.19 1.00 - 4.80 K/ul 04/22/2023 4:26 PM EST LAB[facility]ATORY [facility] Absolute Monocytes 0.52 0.00 - 1.10 K/uL 04/22/2023 4:26 PM EST LAB[facility]ATORY [facility] Absolute Eosinophils 0.24 0.00 - 0.70 K/uL 04/22/2023 4:26 PM EST LAB[facility]ATORY [facility] Absolute Basophils 0.05 0.00 - 0.20 K/uL 04/22/2023 4:26 PM EST LAB[facility]ATORY [facility] Absolute Immature Granulocytes 0.01 0.00 - 0.20 K/uL 04/22/2023 4:26 PM EST LAB[facility]ATORY [facility] Blood Venous blood specimen / Unknown Venipuncture / Unknown 04/22/2023 4:10 PM EST 04/22/2023 4:16 PM EST Gavin Zhang MD LAB BLOOD ORDERABLES [facility] [address] [place] [address] * (ABNORMAL) CBC (04/22/2023 4:10 PM EST) WBC 5.98 4.00 - 10.80 K/uL 04/22/2023 4:26 PM EST LAB[facility]ATORY [facility] RBC 4.33 4.50 - 5.25 M/uL 04/22/2023 4:26 PM EST LAB[facility]ATORY [facility] HGB 13.3(L) 14.0 - 16.8 g/dL 04/22/2023 4:26 PM EST LAB[facility]AT[facility] HCT 40.3 40.0 - 48.4 % 04/22/2023 4:26 PM EST LAB[facility]AT[facility] MCV 93.1 82.0 - 99.5 fL 04/22/2023 4:26 PM EST LAB[facility] MCH 30.7 27.0 - 34.0 pg 04/22/2023 4:26 PM EST LAB[facility]AT[facility] MCHC 33.0 32.0 - 36.0 g/dL 04/22/2023 4:26 PM EST LAB[facility] RDW 16.2 11.5 - 15.5 % 04/22/2023 4:26 PM EST LAB[facility]ATORY [facility] PLT 168 140 - 400 K/uL 04/22/2023 4:26 PM EST LAB[facility] MPV 10.3 6.6 - 11.1 fL 04/22/2023 4:26 PM EST LAB[facility]ATORY [facility] nRBCs 0 <=0 /100 WBCs 04/22/2023 4:26 PM EST [facility] Blood Venous blood specimen / Unknown Venipuncture / Unknown 04/22/2023 4:10 PM EST 04/22/2023 4:16 PM EST Gavin Zhang MD LAB BLOOD ORDERABLES [facility] [address] [place] [address] * (ABNORMAL) FERRITIN (04/22/2023 4:10 PM EST) Ferritin 526(H) 30 - 400 ng/mL 04/22/2023 5:50 PM EST LABORATORY [facility] Blood Venous blood specimen / Unknown Venipuncture / Unknown 04/22/2023 4:10 PM EST 04/22/2023 4:16 PM EST Gavin Zhang MD LAB BLOOD ORDERABLES Performing Organization Address City/[facility]/ZIP Co de Phone Number LABORATORY [facility] [address] [place] [address] * LD (04/22/2023 4:10 PM EST) [facility] LD 232 <=250 U/L 04/22/2023 4:52 PM EST LABORATORY C Comment:Result may be falsel y elevated due to hemolysis. Blood Venous blood specimen / Unknown Venipuncture / Unknown 04/22/2023 4:10 PM EST 04/22/2023 4:16 PM EST Gavin Zhang MD LAB BLOOD ORDERABLES Performing Organization Address [facility] de Phone Number LABORATORY [facility] [address] [place] [address] * TSH (04/22/2023 4:10 PM EST) [facility] TSH 1.44 0.27 - 4.20 uIU/mL 04/22/2023 5:50 PM EST LABORATORY [facility] Blood Venous blood specimen / Unknown Venipuncture / Unknown 04/22/2023 4:10 PM EST 04/22/2023 4:16 PM EST Gavin Zhang MD LAB BLOOD ORDERABLES Performing Organization Address [facility] Co de Phone Number LABORATORY [facility] [address] [place] [address] * FOLIC ACID (04/22/2023 4:10 PM EST) [facility] Folic Acid 17.1 >4.5 ng/mL 04/22/2023 6:05 PM EST LAB[facility]ATORY [facility] Blood Venous blood specimen / Unknown Venipuncture / Unknown 04/22/2023 4:10 PM EST 04/22/2023 4:16 PM EST Gavin Zhang MD LAB BLOOD ORDERABLES Performing Organization Address [facility]/ZIP Co de Phone Number LABORATORY [facility] [address] [place] [address] * VITAMIN B12 (04/22/2023 4:10 PM EST) [facility] Vitamin B12 1,050 232 - 1,245 pg/mL 04/22/2023 6:05 PM EST LABORATORY [facility] Blood Venous blood specimen / Unknown Venipuncture / Unknown 04/22/2023 4:10 PM EST 04/22/2023 4:16 PM EST Gavin Zhang MD LAB BLOOD ORDERABLES Performing Organization Address [facility] de Phone Number LABORATORY [facility] [address] [place] [address] * (ABNORMAL) IMMUNOGLOBULIN QUANTITATIVE (04/22/2023 4:10 PM EST) [facility] IgG 1,281 700 - 1,600 mg/dL 04/22/2023 4:54 PM EST LABORATORY [facility] IgA 438(H) 70 - 400 mg/dL 04/22/2023 4:54 PM EST LABORATORY [facility] IgM 153 40 - 230 mg/dL 04/22/2023 4:54 PM EST LABORATORY [facility] Blood Venous blood specimen / Unknown Venipuncture / Unknown 04/22/2023 4:10 PM EST 04/22/2023 4:16 PM EST Gavin Zhang MD LAB BLOOD ORDERABLES Performing Organization Address City/[facility] Co de Phone Number LABORATORY [facility] [address] [place] [address] * SERUM FREE LIGHT CHAINS (04/22/2023 4:10 PM EST) [place] Free Light Chains, Serum 14.54 3.30 - 19.40 mg/L 04/23/2023 10:42 AM EST LABORATORY [facility] [place] Free Light Chains, Serum 18.43 5.71 - 26.30 mg/L 04/23/2023 10:42 AM EST LABORATORY [facility] [place] Lambda Free Light Chains Ratio 0.79 0.26 - 1.65 04/23/2023 10:42 AM EST LABORATORY C Blood Venous blood specimen / Unknown Venipuncture / Unknown 04/22/2023 4:10 PM EST 04/22/2023 4:16 PM EST Gavin Zhang MD LAB BLOOD ORDERABLES Performing Organization Address City/[facility] [facility] de Phone Number LABORATORY [facility] [address] [place] [address] * RETICULOCYTE PANEL (04/22/2023 4:10 PM EST) Reticulocyte Percent 1.13 0.80 - 1.90 % 04/22/2023 4:26 PM EST LABORATORY [facility] Absolute Reticulocyte 48.9 31.3 - 100.1 K/uL 04/22/2023 4:26 PM EST LABORATORY [facility] Immature Reticuloctye Fraction 9.4 2.5 - 20.6 % 04/22/2023 4:26 PM EST LABORATORY [facility] Reticulocyte Hemoglobin 33.9 29.7 - 37.4 pg 04/22/2023 4:26 PM EST LABORATORY [facility] Blood Venous blood specimen / Unknown Venipuncture / Unknown 04/22/2023 4:10 PM EST 04/22/2023 4:16 PM EST Gavin Zhang MD LAB BLOOD ORDERABLES Performing Organization Address [facility] Co de Phone Number LABORATORY [facility] [address] [place] [address] * (ABNORMAL) COMPREHENSIVE METABOLIC PANEL (04/22/2023 4:10 PM EST) BUN 9 6 - 20 mg/dL 04/22/2023 4:52 PM EST LAB[facility]ATORY [facility] Creatinine 0.6 0.6 - 1.2 mg/dL 04/22/2023 4:52 PM EST LAB[facility]ATORY [facility] Estimated Glomerular Filtration Rate >90 >=60 mL/min 04/22/2023 4:52 PM EST LAB[facility]ATORY [facility] Comment:eGFR is calculated b ased on the CKD-EPI 2020 equation Sodium 136 135 - 146 mmol/L 04/22/2023 4:52 PM EST LAB[facility]ATORY [facility] Potassium 4.4 3.5 - 5.1 mmol/L 04/22/2023 4:52 PM EST LAB[facility]ATORY [facility] Chloride 101 98 - 107 mmol/L 04/22/2023 4:52 PM EST [facility] CO2 25 22 - 32 mmol/L 04/22/2023 4:52 PM EST [facility] Anion Gap 10 7 - 15 mmol/L 04/22/2023 4:52 PM EST LAB[facility] Glucose 82 70 - 120 mg/dL 04/22/2023 4:52 PM EST LAB[facility] Albumin 4.0 3.8 - 5.0 g/dL 04/22/2023 4:52 PM EST LAB[facility]ORY [facility] AST 311(H) 10 - 50 U/L 04/22/2023 4:52 PM EST LAB[facility] Alkaline Phosphatase 74 35 - 130 U/L 04/22/2023 4:52 PM EST LAB[facility] Bilirubin, Total 1.1 <=1.2 mg/dL 04/22/2023 4:52 PM EST LAB[facility] Calcium 9.5 8.4 - 10.2 mg/dL 04/22/2023 4:52 PM EST LAB[facility] Protein 7.4 6.0 - 8.3 g/dL 04/22/2023 4:52 PM EST [facility] ALT 282(H) 10 - 50 U/L 04/22/2023 4:52 PM EST LAB[facility] Blood Venous blood specimen / Unknown Venipuncture / Unknown 04/22/2023 4:10 PM EST 04/22/2023 4:16 PM EST Gavin Zhang MD LAB BLOOD ORDERABLES [facility] [address] [place] [address] documented in this encounter Visit Diagnoses Diagnosis Hepatosplenomegaly- Primary Other chronic nonalcoholic liver disease Thrombocytopenia (HCC) Thrombocytopenia, unspecified documented in this encounter Advance Directives Latest Code Status on File Code Status Date Activated Date Inactivated Comments Full Code 03/29/2023 1:43 PM 04/02/2023 2:03 PM This order reflects the patients wishes and were consensually agreed upon. Question Answer Comments Discussion of Advance Directives occurred with: Patient Care Teams Integrity Director Relationship Specialty Start Date End Date Cory Ross PA-C [address] [place] [address] [place] [address] PCP - General Physician Bag Repairer 10/27/22 documented as of this encounter
--- OUTSIDE RECORDS SUMMARY | 2023-06-14 21:43 | External Medical Summary ---
Author Name Unknown Address Unknown Organization K01:LABORATORY [facility] - [address] [place] [address] Laboratory Report Ordering Provider Test Date Status ANGELO AMAYA 04/22/2023 16:10:49 Final Observation Date Value Abnormality Reference (Units) Status PARAPROTEIN NORMAL/ABNORMAL 04/22/2023 16:10:49 Normal Normal Final Immunofixation for Serum or Plasma 04/22/2023 16:10:49 No monoclonal gammopathy detected. Final Performing Location LABORATORY C - [address] [place] [address]
--- OUTSIDE RECORDS SUMMARY | 2023-06-14 21:43 | External Medical Summary ---
Author Name Unknown Address Unknown Organization : Laboratory Report Ordering Provider Test Date Status ANGELO AMAYA 04/22/2023 16:10:49 Final Observation Date Value Abnormality Reference (Units ) Status METHYLMALONIC ACID 04/22/2023 16:10:49 117.7 8 7-318 (nmol/L) Final This test was developed and its analytical performance
characteristics have been determined by [employer]
[place], [place]. It has
not been cleared or approved by the U.S. Food and Drug
Administration. This assay has been validated pursuant
to the CLIA regulations and is used for clinical
purposes.

Test Performed at:
[facility] [place]
[address] [facility]
[place] [address]
José Miguel Page M.D., Ph.D.,Director of Laboratories Performing Location
--- OUTSIDE RECORDS SUMMARY | 2023-06-14 21:43 | External Medical Summary ---
Author Name Unknown Address Unknown Organization K01:LABORATORY [facility] - [address] [place] [address] Laboratory Report Ordering Provider Test Date Status PAYTON CHIU 04/17/2023 14:22:44 Final Cutoff Concentrations:
D rug Level
Alpha-Hydroxyalprazolam 10 ng/mL
7-Aminoclonazepam 20 ng/mL
Nordiazepam 20 ng/mL
Oxazepam 20 ng/mL
Temazepam 20 ng/mL
Lorazepam 10 ng/mL

This test was developed and its performance characteristics determined by [employer]. It has not been cleared or approved by the [place] Food and Drug Administration. Observation Date Value Abnormality Reference (Units) Status METHODOLOGY 04/17/2023 14:22:44 LC-MS/MS Final Alpha hydroxyalprazolam cutoff [Mass/volume] in Urine for Confirmatory method 04/17/2023 14:22:44 Negative Negative Final 7-Aminoclonazepam [Mass/volume] in Urine by Confirmatory method 04/17/2023 14:22:44 >20 Above high normal Negative (ng/mL) Final Nordiazepam cutoff [Mass/volume] in Urine for Confirmatory method 04/17/2023 14:22:44 Negative Negative Final Oxazepam cutoff [Mass/volume] in Urine for Confirmatory method 04/17/2023 14:22:44 Negative Negative Final Temazepam cutoff [Mass/volume] in Urine for Confirmatory method 04/17/2023 14:22:44 Negative Negative Final LORazepam cutoff [Mass/volume] in Urine for Confirmatory method 04/17/2023 14:22:44 >1000 Above high normal Negative (ng/mL) Final Performing Location LABORATORY [facility] - [address] [place] [address]
--- OUTSIDE RECORDS SUMMARY | 2023-06-14 21:44 | External Medical Summary ---
Author Name Unknown Address Unknown Organization K01:LABORATORY [facility] - [address] [place] [address] Laboratory Report Ordering Provider Test Date Status MARIAM PHILLIPS 03/30/2023 06:30:00 Final Observation Date Value Abnormality Reference (Units ) Status Hep C Ab 03/30/2023 06:30:00 Negative Negative Final Further HCV quantitative yajaira ting not performed per protocol. Performing Location LABORATORY [facility] - [address] [place] [address]
--- OUTSIDE RECORDS SUMMARY | 2023-06-14 21:44 | External Medical Summary ---
Author Name Unknown Address Unknown Organization K1G:LABORATORY [facility] - [address] [facility] [address] Laboratory Report Ordering Provider Test Date Status MARIAM PHILLIPS 03/30/2023 06:30:00 Final Observation Date Value Abnormality Reference (Units ) Status Phosphate 03/30/2023 06:30:00 2.6 2.5-4.8 (m g/dL) Final Performing Location LABORATORY [facility] - [address] [facility] [address]
--- OUTSIDE RECORDS SUMMARY | 2023-06-14 21:44 | External Medical Summary ---
Author Name Unknown Address Unknown Organization K1G:LABORATORY [facility] - [address] [facility] [address] Laboratory Report Ordering Provider Test Date Status MARIAM PHILLIPS 04/01/2023 05:41:00 Final Observation Date Value Abnormality Reference (Units ) Status Magnesium 04/01/2023 05:41:00 2.1 1.5-2.6 (m g/dL) Final Performing Location LABORATORY [facility] - [address] [facility] [address]
--- OUTSIDE RECORDS SUMMARY | 2023-06-14 21:44 | External Medical Summary ---
Author Name Unknown Address Unknown Organization K1G:LABORATORY [facility] - [address] [facility] [address] Laboratory Report Ordering Provider Test Date Status MARIAM PHILLIPS 04/02/2023 05:33:00 Final Observation Date Value Abnormality Reference (Units ) Status Magnesium 04/02/2023 05:33:00 1.7 1.5-2.6 (m g/dL) Final Performing Location LABORATORY [facility] - [address] [facility] [address]
--- OUTSIDE RECORDS SUMMARY | 2023-06-14 21:44 | External Medical Summary ---
Author Name Unknown Address Unknown Organization K1G:LABORATORY [facility] - [facility] [facility] [place] [address] Laboratory Report Ordering Provider Test Date Status MARIAM PHILLIPS 03/31/2023 07:39:00 Final Observation Date Value Abnormality Reference (Units ) Status BUN 03/31/2023 07:39:00 8 6-20 (mg/dL) Final Creatinine 03/31/2023 07:39:00 0.4 Below low normal 0.6-1.2 (mg/dL) Final Glomerular filtration rate/1.73 sq M.predicted [Volume Rate/Area] in Serum, Plasma or Blood by Creatinine-based formula (CKD-EPI) 03/31/2023 07:39:00 >90 >=60 (mL/min) Final eGFR is calculated based on the CKD-EPI 2020 equation SODIUM 03/31/2023 07:39:00 132 Below low normal 135 -146 (mmol/L) Final Potassium 03/31/2023 07:39:00 4.3 3.5-5.1 (m mol/L) Final Cl 03/31/2023 07:39:00 96 Below low normal 98- 107 (mmol/L) Final CO2 03/31/2023 07:39:00 21 Below low normal 22- 32 (mmol/L) Final Anion gap 03/31/2023 07:39:00 15 7-15 (mmol /L) Final Glucose 03/31/2023 07:39:00 115 70-120 (mg /dL) Final Calcium 03/31/2023 07:39:00 9.4 8.4-10.2 ( mg/dL) Final Performing Location LABORATORY [facility] - [address] [facility] [place] [address]
--- OUTSIDE RECORDS SUMMARY | 2023-06-14 21:44 | External Medical Summary ---
Author Name Unknown Address Unknown Organization K1G:LABORATORY [facility] - [address] [facility] [address] Laboratory Report Ordering Provider Test Date Status MARIAM PHILLIPS 04/02/2023 05:33:00 Final Observation Date Value Abnormality Reference (Units ) Status SYNC LEUKOCYTES IN BLOOD BY AUTOMATED COUNT 04/02/2023 05:33:00 5.62 4.00-10.80 (K/uL) Final Segs 04/02/2023 05:33:00 62.4 40.0-75.0 (%) Final Lymphs % 04/02/2023 05:33:00 23.8 18.0-42.0 (%) Final Monos 04/02/2023 05:33:00 13.6 Above high normal 1.0-11.0 (%) Final Eosinophils 04/02/2023 05:33:00 0.2 0.0-6.0 (%) Final Basos 04/02/2023 05:33:00 0.0 0.0-2.0 (%) Final Absolute Segs 04/02/2023 05:33:00 3.44 1.80-7.70 (K/uL) Final Lymphs, absolute 04/02/2023 05:33:00 1.31 1.00-4.80 (K/ul) Final Monos, Abs 04/02/2023 05:33:00 0.75 0.00-1.10 (K/uL) Final Eos, Abs 04/02/2023 05:33:00 0.01 0.00-0.70 (K/uL) Final Basos, Abs 04/02/2023 05:33:00 0.00 0.00-0.20 (K/uL) Final Performing Location LABORATORY [facility] - [address] [facility] [address]
--- OUTSIDE RECORDS SUMMARY | 2023-06-14 21:44 | External Medical Summary ---
Author Name Unknown Address Unknown Organization K1G:LABORATORY [facility] - [address] [place] [address] [place] [address] Laboratory Report Ordering Provider Test Date Status ALANMARIAM 04/01/2023 05:41:00 Final Observation Date Value Abnormality Reference (Units ) Status Albumin 04/01/2023 05:41:00 4.1 3.8-5.0 (g/dL) Final AST (Aspartate aminotransferase) 04/01/2023 05:41:00 251 Above high normal 10-50 (U/L) Final Alk Phos 04/01/2023 05:41:00 90 35-130 (U/L) Final ALT (Alanine aminotransferase) 04/01/2023 05:41:00 182 Above high normal 10-50 (U/L) Final Bilirubin, Total 04/01/2023 05:41:00 1.3 Above high normal <=1.2 (mg/dL) Final Bilirubin, Direct 04/01/2023 05:41:00 0.7 Above high normal 0.0-0.3 (mg/dL) Final Protein 04/01/2023 05:41:00 8.1 6.0-8.3 (g/dL) Final Performing Location LABORATORY [facility] - [address] [facility] [place] [address]
--- OUTSIDE RECORDS SUMMARY | 2023-06-14 21:44 | External Medical Summary ---
Author Name Unknown Address Unknown Organization K1G:LABORATORY [facility] - [address] [facility] [address] Laboratory Report Ordering Provider Test Date Status MARIAM PHILLIPS 03/30/2023 06:30:00 Final Warfarin Therapy
INR: 2 .0-3.0 conventional anticoagulation
INR: 2.5- 3.5 high intensity anticoagulation Observation Date Value Abnormality Reference (Units ) Status PT 03/30/2023 06:30:00 15.4 Above high normal 11 .6-15.2 (seconds) Final INR 03/30/2023 06:30:00 1.2 0.8-1.2 Final Performing Location LABORATORY [facility] - [address] [facility] [address]
--- OUTSIDE RECORDS SUMMARY | 2023-06-14 21:44 | External Medical Summary ---
Author Name Unknown Address Unknown Organization K1G:LABORATORY [facility] - [address] [place] [address] Laboratory Report Ordering Provider Test Date Status MARIAM PHILLIPS 04/02/2023 05:33:00 Final Observation Date Value Abnormality Reference (Units ) Status BUN 04/02/2023 05:33:00 10 6-20 (mg/dL) Final Creatinine 04/02/2023 05:33:00 0.5 Below low normal 0.6-1.2 (mg/dL) Final Glomerular filtration rate/1.73 sq M.predicted [Volume Rate/Area] in Serum, Plasma or Blood by Creatinine-based formula (CKD-EPI) 04/02/2023 05:33:00 >90 >=60 (mL/min) Final eGFR is calculated based on the CKD-EPI 2020 equation SODIUM 04/02/2023 05:33:00 135 135-146 (m mol/L) Final Potassium 04/02/2023 05:33:00 3.8 3.5-5.1 (m mol/L) Final Cl 04/02/2023 05:33:00 101 98-107 (mm ol/L) Final CO2 04/02/2023 05:33:00 21 Below low normal 22- 32 (mmol/L) Final Anion gap 04/02/2023 05:33:00 13 7-15 (mmol /L) Final Glucose 04/02/2023 05:33:00 144 Above high normal 70 -120 (mg/dL) Final Calcium 04/02/2023 05:33:00 9.3 8.4-10.2 ( mg/dL) Final Performing Location LABORATORY [facility] - [address] [facility] [place] [address]
--- OUTSIDE RECORDS SUMMARY | 2023-06-14 21:44 | External Medical Summary ---
Author Name Unknown Address Unknown Organization K1G:LABORATORY [facility] - [address] [facility] [address] Laboratory Report Ordering Provider Test Date Status MARIAM PHILLIPS 04/02/2023 05:33:00 Final Observation Date Value Abnormality Reference (Units ) Status Neutrophils/100 leukocytes in Blood by Manual count 04/02/2023 05:33:00 64.0 40.0-75.0 (%) Final Lymphocytes/100 leukocytes in Blood by Manual count 04/02/2023 05:33:00 23.0 18.0-42.0 (%) Final Monocytes/100 leukocytes in Blood by Manual count 04/02/2023 05:33:00 13.0 Above high normal 1.0-11.0 (%) Final Eosinophils/100 leukocytes in Blood by Manual count 04/02/2023 05:33:00 0.0 0.0-6.0 (%) Final Basophils/100 leukocytes in Blood by Manual count 04/02/2023 05:33:00 0.0 0.0-2.0 (%) Final Neutrophils [#/volume] in Blood by Manual count 04/02/2023 05:33:00 3.60 1.80-7.70 (K/uL) Final Lymphocytes [#/volume] in Blood by Manual count 04/02/2023 05:33:00 1.29 1.00-4.80 (K/uL) Final Monocytes [#/volume] in Blood by Manual count 04/02/2023 05:33:00 0.73 0.00-1.10 (K/uL) Final Eosinophils [#/volume] in Blood by Manual count 04/02/2023 05:33:00 0.00 0.00-0.70 (K/uL) Final Basophils [#/volume] in Blood by Manual count 04/02/2023 05:33:00 0.00 0.00-0.20 (K/uL) Final Nucleated erythrocytes/100 leukocytes [Ratio] in Blood by Automated count 04/02/2023 05:33:00 Final Performing Location LABORATORY [facility] - [address] [facility] [address]
--- OUTSIDE RECORDS SUMMARY | 2023-06-14 21:44 | External Medical Summary ---
Author Name Unknown Address Unknown Organization K1G:LABORATORY [facility] - [address] [facility] [address] Laboratory Report Ordering Provider Test Date Status MARIAM PHILLIPS 03/31/2023 07:39:00 Final Observation Date Value Abnormality Reference (Units ) Status Magnesium 03/31/2023 07:39:00 2.4 1.5-2.6 (m g/dL) Final Performing Location LABORATORY [facility] - [address] [facility] [address]
--- OUTSIDE RECORDS SUMMARY | 2023-06-14 21:44 | External Medical Summary ---
Author Name Unknown Address Unknown Organization K1G:LABORATORY [facility] - [facility] [place] [facility] [address] Laboratory Report Ordering Provider Test Date Status MARIAM PHILLIPS 04/01/2023 05:41:00 Final Observation Date Value Abnormality Reference (Units ) Status WBC, Total 04/01/2023 05:41:00 5.15 4.00-10.8 0 (K/uL) Final RBC 04/01/2023 05:41:00 4.73 4.50-5.25 (M/uL) Final Hemoglobin 04/01/2023 05:41:00 14.3 14.0-16.8 (g/dL) Final HCT 04/01/2023 05:41:00 42.6 40.0-48.4 (%) Final MCV 04/01/2023 05:41:00 90.1 82.0-99.5 (fL) Final MCH 04/01/2023 05:41:00 30.2 27.0-34.0 (pg) Final MCHC 04/01/2023 05:41:00 33.6 32.0-36.0 (g/dL) Final RDW 04/01/2023 05:41:00 15.2 11.5-15.5 (%) Final Platelets 04/01/2023 05:41:00 25 Below low normal 140 -400 (K/uL) Final MPV 04/01/2023 05:41:00 10.9 6.6-11.1 ( fL) Final Performing Location LAB[facility]ATORY [facility] - [address] [facility] [address]
--- OUTSIDE RECORDS SUMMARY | 2023-06-14 21:44 | External Medical Summary | Summary of Care ---
Author Name Unknown Organization [facility] Address [address] [place] [address] Phone [phone] Care Team Providers Care Yoga Coordinator Name Role Phone Cory Ross PA-C Primary Care Provider + [phone] Reason for Referral * Evaluate & Treat - Unlimited Visits (Within 3 days (urgent)) - Pending Review Specialty Diagnoses / Procedures Referred By Danielle luong Referred To Contact Addiction Medicine Diagnoses Alcohol dependence, continuous (HCC) Osman Hadley DO [address] [place] [address] Referral ID Status Reason Start Date Expiration Date Visits Requested Visits Authorized [id number] Pending Review Specialty Services Required 04/02/[phone] Question Answer Referral Priority Within 3 days (urgent) Where should this appointment be scheduled? [facility] Was the patient hospitalized for their addiction in the past in the past 6 months? Yes Did this include Endocarditis or Soft Tissue Infection? No Has the patient overdosed on any substance in the past? No Reason for Referral: Alcohol Comments Discharge Order * Evaluate & Treat - Unlimited Visits (Within 30 days (routine)) - Pending Review Specialty Diagnoses / Procedures Referred By Danielle luong Referred To Contact Hematology/Oncology / Hematology Oncology Diagnoses Thrombocytopenia due to drugs Other drug-induced neutropenia (HCC) Osman Hadley DO [address] [place] [address] Referral ID Status Reason Start Date Expiration Date Visits Requested Visits Authorized [id number] Pending Review Specialty Services Required 04/02/[phone] Question Answer Referral Priority Within 30 days (routine) Where should this appointment be scheduled? [facility] Reason for Referral Abnormal CBC Comments Thrombocytopenia Discharge Order * Evaluate & Treat - Unlimited Visits (Within 10 days (routine)) - Pending Review Specialty Diagnoses / Procedures Referred By Danielle luong Referred To Contact Gastroenterology Diagnoses Elevated liver transaminase level Hepatosplenomegaly Alcohol induced fatty liver Osman Hadley DO [address] [place] [address] Referral ID Status Reason Start Date Expiration Date Visits Requested Visits Authorized [id number] Pending Review Specialty Services Required 04/02/[phone] Question Answer Referral Priority Within 10 days (routine) Where should this appointment be scheduled? [facility] For what condition is the patient being referred? Liver conditions Comments Alcohol liver disease Discharge Order Reason for Visit * Reason Comments Abnormal Test Results Low platlets * Auth/Cert Specialty Diagnoses / Procedures Referred By Danielle luong Referred To Contact Referral ID Status Reason Start Date Expiration Date Visits Re quested Visits Authorized [id number] Encounter Details Date Type Department Care Team (Latest Contact Info) Description 03/29/2023 7:30 AM EST - 04/02/2023 10:02 AM EST Hospital Encounter ACU [facility], Acute Care Unit, [facility] 2nd Floor [address] [place] [address] Gregory Dykes MD [address] [facility] [address] Osman Hadley DO [address] [place] [address] Pt Handout (on AVS) Discharge Disposition: Home - Self Care Allergies No known active allergiesdocumented as of this encounter (statuses as of 04/02/2023) Medications Medication Sig Dispensed Refills Start Date End Date Status Acetaminophen 500 MG Oral Tablet (Tylenol Extra Strength) Take 1 Tablet by mouth every 6 hours as needed. 0 Active clonazePAM 1 MG Oral Tablet (KlonoPIN) Take 1 during the day as needed for anxiety. Take 1 tab at bedtime 40 Tablet 0 04/02/2023 Active Gabapentin 100 MG Oral Capsule (Neurontin)Indica [...] as of this encounter (statuses as of 04/02/2023) Active Problems Problem Noted Date Diagnosed Date [...] as of this encounter (statuses as of 04/02/2023) Resolved Problems Problem Noted Date Diagnosed Date Resolved Date Alcohol withdrawal syndrome with complication 03/30/19 24 04/02/2023 Neutropenic fever 03/30/2023 04/02/2023 Acute alcoholic intoxication with complication 03/29/2023 03/30/2023 Leucopenia 03/29/2023 04/02/2023 Drug-induced liver injury 03/29/2023 Acute hyperactive alcohol withdrawal delirium 04/05/1903/30/2023 Compression fracture of L1 lumbar vertebra 08/09/2011 03/29/2023 documented as of this encounter (statuses as of 04/02/2023) Immunizations Name Administration Dates Next Due Pneumococcal Conjugate Vaccine, 20-valent (Prevn ar20) 01/31/2023 Seasonal Influenza, PF, 6 M & above, IM , (FluLaval or Fluzone) 11/24/2022 TDAP (age 10 and older)(Boostrix) 01/31/2023 TDAP (age 11 and older)(Adacel) 08/08/2011 documented as of this encounter Social History Tobacco Use Types Packs/Day Years Used Date Smoking Tobacco: Every Day Cigarettes 0.5 Smokeless Tobacco: Never Tobacco Cessation:Ready to Q uit: Not Asked; Counseling Given: Not Answered Alcohol Use Standard Drinks/Week Comments Yes 0 [...] Sign Reading Time Taken Comments Blood Pressure 124/85 04/02/2023 7:30 AM EST Pulse 74 04/02/2023 7:30 AM EST Temperature 36.6 C (97.9 F) 04/02/2023 7:30 AM ES T Respiratory Rate 20 04/02/2023 7:30 AM EST Oxygen Saturation 99% 04/02/2023 7:30 AM EST Inhaled Oxygen Concentration - - Weight 86 kg (189 lb 11.2 oz) 03/29/2023 7:00 PM EST Height 175.3 cm (5' 9") 03/29/2023 7:00 PM EST Body Mass Index 28.01 03/29/2023 7:00 PM EST documented in this encounter Discharge Summaries * Leonie Osman Jay, DO - 04/02/2023 7:42 AM EST [place] [id number] [facility] [id number] Admission Date: 03/29/2023 Discharge Date: 04/02/2023 RECOMMENDED TO DO FOR NEXT PROVIDER(S): Recommend outpatient follow up with Hematology Recommend outpatient follow up for counseling and treatment for his alcohol addiction Consider outpatient MRI imaging of the liver Consider outpatient follow up imaging of lung nodule Patient reports he never had a known history of Lyme disease. Did have a positive IgG antibody testfor line. Could consider further evaluation outpatient by Infectious Disease REASON(S) FOR MEDICATION CHANGE(S): Abilify discontinued due to concern of agranulocytosis Klonopin used for his anxiety DISPOSITION ON DISCHARGE: home Active Hospital Problems Diagnosis Alcohol dependence, continuous (HCC) History of Lyme disease Thrombocytopenia due to drugs Alcohol induced fatty liver Lung nodule seen on imaging study Elevated liver transaminase level Generalized anxiety disorder Hepatosplenomegaly OCD (obsessive compulsive disorder) Resolved Hospital Problems Diagnosis Date Resolved *Principal Diagnosis - Alcohol withdrawal syndrome with complication (HCC) 04/02/2023 Neutropenic fever (HCC) 04/02/2023 Acute alcoholic intoxication with complication (HCC) 03/30/2023 Leucopenia 04/02/2023 Drug-induced liver injury 04/02/2023 Acute hyperactive alcohol withdrawal delirium (HCC) 03/30/2023 ADMISSION HISTORY & PHYSICAL EXAM (focused): Patient presented to the emergency room and alcohol withdrawal but also with significantly abnormallaboratory studies that were done the day prior at the request of his PCP. In the emergency room confirmed that he was significant glucose tenia and thrombocytopenia. Also displaying symptoms of alcohol withdrawal. HOSPITAL COURSE (focused): Patient was cared for in the hospital. He was placed on alcohol withdrawal protocol with scheduled phenobarbital and p.r.n. barbital for symptoms. He was given some fluid resuscitation. Patient was severely leukopenic and thrombocytopenic. Did preliminarily see GI while still in the ED. The concernthe patient may have beginnings of severe alcohol induced hepatitis. He gastroenterology also discuss with hepatology at [place], due to the patient was being actively drinking and not have definitive criteria for alcohol hepatitis it was recommended the patient be managed here at [place] forhis alcohol withdrawal. Patient was platelets were closely monitored. Patient was on Abilify which can cause agranulocytosis. The platelets continued to decline and drop to platelet count of 10. He did have some intermittent streaks of blood in his nasal discharge and some bleeding gums. Extremely high risk for spontaneous bleed and he was transfused platelets x1 unit. Also was started on dexamethasone for the thrombocytopenia. With these interventions his blood counts improved. He did have a fever and was started on empiric antibiotics for neutropenic fever. Respiratory viral panel was negative. Blood cultures are negative and after blood cultures remained sterile antibiotics were discontinued. He had no further fevers. As far as his alcohol withdrawal he did well with that his phenobarbital was titrated off he was not needing any p.r.n. phenobarbital. Patient reports that his alcohol use spiral out of control because he can not sleep. He was racing thoughts associated with his OCD and generalized anxiety disorder. Trial of Klonopin seemed to help him get rest here in the hospital and hopefully we will continue to help him at home so it was not need to turned to alcohol to help him sleep. We will coordinate outpatient follow up with his PCP, hepatology, hematology for his ongoing issues and be discharged to home. Day of discharge his vital signs are stable. Has through the was significant withdrawal symptoms. Lungs are clear heart was regular. His platelets had improved to 40. It was WBCs normalized. His hepatitis panel was negative, HIV was negative, absolute reticulocyte count slightly depressed at 24.8.. Patient reports no known history of Lyme disease, no noted exposure. Denies any symptomatology consistent with Lyme disease Operations & Procedures: Transfusion of platelets Complications: none significant Significant Lab and Imaging Results: As mentioned above Lyme IgG antibody positive. IgM negative. Results Pending at Discharge: Lab Results Pending at Discharge: None MEDICATION UPDATES AT DISCHARGE START taking these medications INSTRUCTIONS clonazePAM 1 MG Tablet Commonly known as: KlonoPIN Notes to patient: anxiety Take 1 during the day as needed for anxiety. Take 1 tab at bedtime CONTINUE taking these medications INSTRUCTIONS Tylenol Extra Strength 500 MG Tablet Generic drug: Acetaminophen Notes to patient: Pain reliever Take 1 Tablet by mouth every 6 hours as needed. STOP taking these medications ARIPiprazole 10 MG Tablet Commonly known as: Abilify Gabapentin 100 MG Capsule Commonly known as: Neurontin SCHEDULED FOLLOW-UP: Future Appointments Appt Date/Time Provider Department 04/05/2023 3:40 PM Tami Upton MD [facility] 04/11/2023 9:20 AM [facility]23 3:00 PM Gavin Zhang MD Hematology Oncology [facility] Outpatient Follow Up Alcohol/Chemical Dependency Referral OP HEMATOLOGY/ONCOLOGY REFERRAL OP HIV AG&AB SCREEN W/ CONFIRMATION [HIV4G] (Today for Today) Hepatology Referral Op Other Information Indwelling Devices: LINES None Vital Signs (last recorded): Most Recent Systolic BP: 124 mmHg (04/02/23729) Most Recent Diastolic BP: 85 mmHg (04/02/23729) Pulse: 74 (04/02/23729) Resp: 20 (04/02/23729) Most Recent Temperature: 36.61 C (04/02/23729) Weight: 86 kg (189 lb 11.2 oz) (03/29/23 1900) SpO2: 99 % (04/02/23729) Allergies: Patient has no known allergies. Activity: as tolerated Diet: age appropriate diet Code Status: Full Code Condition on Discharge: stable Isolation status: None Cognition: normal HOSPITAL CONSULTS ORDERED: GASTROENTEROLOGY CONSULT IP REFERRING PHYSICIAN: Ref: SELF[[id number]] NO STREET ADDRESS AVAILABLE None (office) None (fax) PRIMARY CARE PROVIDER: PCP: Cory Ross PA-C [address] [place] [address] (office) [phone] (fax) Note: To contact a physician responsible for this patients hospital care, please call [facility] [phone]. I spent a total of 34 minutes coordinating, documenting, and providing care for this patient excluding time spent in the performance of separately billed services. documented in this encounter Discharge Instructions * Discharge Instr - AVS* Osman Hadley DO - 04/02/2023 7:39 AM EST Discharge Date: 04/02/2023 The information below provides you with the instructions and the list of medications you need to betaking following discharge from the hospital. If you have any questions, please ask before leaving. If you have questions after leaving, you can reach us at the numbers below. YOUR HOSPITAL PROVIDERS: Discharging Provider: Osman Hadley DO Provider Department: Hospital Medicine To reach this provider Saturday through Saturday (8:00 AM to 4:30 PM) for any questions or test results: Call [phone]. For after-hours concerns: Call [phone] and have your provider paged or the provider purification supervisor for the Department of Hospital Medicine paged. Please note, the discharging provider will not be able to provide you with any medications refills.Please discuss these with your primary care provider. Worsening Symptoms: If you have new symptoms, or your symptoms get worse, please contact your Discharge Provider or Primary Care Provider (PCP). If these providers are not available, you can go to your local [facility] or Urgent Care Clinic during their business hours. In an EMERGENCY situation: Call [phone] or go to the nearest emergency room. A BRIEF SUMMARY OF YOUR HOSPITAL STAY: You came to the hospital with: Significantly abnormal blood tests, some bleeding gums and alcohol withdrawal Your main diagnosis at discharge was: You were diagnosed with drug-induced agranulocytosis she willneed suppression of your white blood cell count and your platelets. This potentially could have been due to Abilify but also can be attributed to did to long-term alcohol use. Also noted to have small pulmonary nodule that we will need outpatient follow up as well as need for ongoing management of your mental health disorders and your alcohol addiction. Operations & Procedures performed: Transfusion platelets Complications: none significant Inpatient test results that are pending at discharge: none Advance Directive Documented: Advance Directive Does the Patient have an Advance Directive? No YOUR FOLLOW UP APPOINTMENTS: Primary Care Provider Information: PCP: Cory Ross PA-C [address] [place] [address] / [facility] [address] (office) [phone] (fax) An appointment was requested with your PCP (Cory Ross PA-C) within 7 days. (Please take this form to this visit with your primary care physician.) You need the following studies in the future: You may need follow up CBC and electrolytes. You may need a bone marrow biopsy you may need additional imaging of your liver and of your chest INSTRUCTIONS: Diet: Normal diet Activity: As tolerated Driving: Do not drive if you are drinking alcohol or using the Klonopin during the day. Additional Instructions: - Call your primary care physician or seek medical attention if fevers, tremors, seizure. documented in this encounter Progress Notes * Annette Peña MD - 04/01/2023 12:28 PM EST PROGRESS NOTE - Gastroenterology Service [facility] [id number] [facility] [address] Name: Esdras Penny Location: [facility] MH2 [id number]-[id number]/ Date: 04/01/2023 Time: 12:28 PM SUBJECTIVE: The patient was seen and examined, chart reviewed. Patient feels much better today. He feels less anxious and tolerating diet. He denies any abdominalpain or blood in the stool. ROS: Fatigue OBJECTIVE: Vital Signs Last 24 Hours: Systolic BP: Most Recent Systolic BP Av.4 mmHg Min: 112 mmHg Max: 136 mmHg Temperature: Most Recent Temperature Av.8 C Min: 36.61 C Max: 37.11 C Pulse: Pulse Av.8 Min: 64 Max: 80 Respirations: Resp Av.2 Min: 16 Max: 18 SpO2: SpO2 Av.6 % Min: 96 % Max: 99 % No skin petechiae No tongue or flapping tremors Abdomen: soft,non-tender, BS +ve LABS: Reviewed Acute hepatitis panel -ve. Tylenol level negative MELD 3.0: 11 at 04/01/2023 5:41 AM Calculated from: Serum Creatinine: 0.5 mg/dL (Using min of 1 mg/dL) at 04/01/2023 5:41 AM Serum Sodium: 134 mmol/L at 04/01/2023 5:41 AM Total Bilirubin: 1.3 mg/dL at 04/01/2023 5:41 AM Serum Albumin: 4.1 g/dL (Using max of 3.5 g/dL) at 04/01/2023 5:41 AM INR(ratio): 1.2 at 03/30/2023 6:30 AM Age at listing (hypothetical): 32 years Sex: Male at 04/01/2023 5:41 AM IMAGING: Reviewed IMPRESSION: Abnormal liver test likely due to alcohol use disorder: improving now. Leukopenia and thrombocytopenia likely multifactorial including ITP, Drug induced ITP, Bone marrow suppression from alcohol use ; improving with dexamethasone use. RECOMMENDATIONS: - Management of withdrawal as per primary team. - Continue with Thiamine and multivitamins . - Management of possible ITP as per primary team. - Avoid hepatotoxic medications - Hepatology evaluation as outpatient. - Suggest MRI liver protocol given abnormal CT liver findings and it can be done as outpatient. - Alcohol cessation counseling done. - MARK ANTHONY burgos for resource to help with alcohol abstinence 50 minutes were spent in the care of this patient. More than half of my time was spent counseling the patient or family and coordinating care for the patient on the floor. * Osman Hadley DO - 04/01/2023 9:40 AM EST Images from the original note were not included. [facility] [address] CCU- INTERVAL HISTORY: Patient states he was doing much better. Slept fair last night. Minimal to no withdrawal symptoms. No bleeding Objective Physical Exam Most Recent Vital Signs: BP: 125 mmHg/86 mmHg (04/01/23799) Pulse: 73 (04/01/23799) Temp: 36.72 C (04/01/23799) Resp: 18 (04/01/23799) SpO2: 99 % (04/01/23799) Constitutional: no acute distress CV: normal rate, normal rhythm Chest: normal respiratory effort, breath sounds normal Abdomen: soft, no tenderness Extremities: no edema Neuro: alert, oriented to person, place, and time Peripheral Line Left Antecubital 20 Gauge (Active) Number of days: 3 STUDIES: Encounter Orders Labs and other studies reviewed with pertinent findings noted below: Sodium 134. Improved Creatinine 0.5. Stable WBCs 5.5, improved ANC 3.76, significantly improved Platelets 25, improved Cultures remained sterile Assessment and Plan IMPRESSION : Principal Problem: Alcohol withdrawal syndrome with complication (HCC) Active Problems: OCD (obsessive compulsive disorder) Hepatosplenomegaly Leukopenia Thrombocytopenia due to drugs Drug-induced liver injury Alcohol induced fatty liver Lung nodule seen on imaging study Elevated liver transaminase level Generalized anxiety disorder Neutropenic fever (HCC) Resolved Problems: Acute hyperactive alcohol withdrawal delirium (HCC) Acute alcoholic intoxication with complication (HCC) DIFFERENTIAL AND PLAN: Patient is showing steady improvement. Minimal to no withdrawal symptoms Titrate down his phenobarbital more rapidly than per protocol since patient was doing very well Decrease Klonopin to 2 times daily Continue dexamethasone for thrombocytopenia, patient is responding to treatment, responding appropriately for a suspected drug-induced agranulocytosis. Blood cultures remained sterile, no additional fevers, discontinue antibiotics and continue to observe off antibiotics Encouraged activity Anticipate if patient does well with titration down of his medications and blood counts continue toimprove discharge tomorrow with outpatient follow up for his chronic mental health issues and alcohol addiction PHARMACOLOGIC VTE PROPHYLAXIS: This patient does not have an active medication from one of the medication groupers. CODE STATUS: Full Code EXPECTED DISCHARGE DATE: 04/02/2023 * Osman Hadley DO - 03/31/2023 11:00 AM EST Images from the original note were not included. [facility] CCU-224/01 INTERVAL HISTORY: Patient reports that he slept well. Feels as though Klonopin definitely helping. Minimal complaintsof withdrawal. Reports no significant bleeding Objective Physical Exam Most Recent Vital Signs: BP: 126 mmHg/94 mmHg (03/31/23 1000) Pulse: 79 (03/31/23 1000) Temp: 36.61 C (03/31/23 0800) Resp: 16 (03/31/23 0800) SpO2: 96 % (03/31/23 1000) Constitutional: (+) ill appearing CV: normal rate, normal rhythm Chest: normal respiratory effort, lungs clear to auscultation and percussion Abdomen: soft, no tenderness Neuro: alert, oriented to person, place, and time Peripheral Line Left Antecubital 20 Gauge (Active) Number of days: 2 Peripheral Line Right;Posterior Hand 20 Gauge (Active) Number of days: 2 STUDIES: Encounter Orders Labs and other studies reviewed with pertinent findings noted below: Latest Reference Range & Units 03/31/23 07:39 WBC 4.00 - 10.80 K/uL 2.00 (L) HGB 14.0 - 16.8 g/dL 14.3 HCT 40.0 - 48.4 % 42.2 MCV 82.0 - 99.5 fL 89.6 PLT 140 - 400 K/uL 20 (LL) Absolute Neutrophils 1.80 - 7.70 K/uL 1.19 (L) (LL): Data is critically low (L): Data is abnormally low Potassium improved and normalized Hepatitis panel negative HIV negative Culture negative Assessment and Plan IMPRESSION : Principal Problem: Alcohol withdrawal syndrome with complication (HCC) Active Problems: OCD (obsessive compulsive disorder) Hepatosplenomegaly Leukopenia Thrombocytopenia due to drugs Drug-induced liver injury Alcohol induced fatty liver Lung nodule seen on imaging study Elevated liver transaminase level Generalized anxiety disorder Neutropenic fever (HCC) Resolved Problems: Acute hyperactive alcohol withdrawal delirium (HCC) Acute alcoholic intoxication with complication (HCC) DIFFERENTIAL AND PLAN: Continue phenobarbital taper for management of alcohol withdrawal. Continue Klonopin as ordered Continue dexamethasone for thrombocytopenia, continue to monitor CBC, slightly improved today Follow LFTs in a.m. Follow electrolytes in a.m. Cultures remained sterile can consider discontinuing antibiotics tomorrow Okay med surg ANC now greater than 1000, confirmed with infection control if neutropenic precautions can be discontinued PHARMACOLOGIC VTE PROPHYLAXIS: This patient does not have an active medication from one of the medication groupers. CODE STATUS: Full Code EXPECTED DISCHARGE DATE: 04/02/2023 * Osman Hadley DO - 03/30/2023 10:28 AM EST Images from the original note were not included. [facility] MH2 CCU-[id number]/ INTERVAL HISTORY: Patient reported that he as she was able to get some sleep. Very slight amount of blood in nasal discharge. No active bleeding. Withdrawal symptoms patient reports are well controlled Objective Physical Exam Most Recent Vital Signs: BP: 142 mmHg/98 mmHg (03/30/23 0800) Pulse: 95 (03/30/23 0800) Temp: 38.11 C (03/30/23 0547) Resp: 18 (03/30/23 0600) SpO2: 94 % (03/30/23 0800) Constitutional: (+) ill appearing CV: normal rate, normal rhythm Chest: normal respiratory effort, decreased breath sounds Abdomen: soft Extremities: no edema Neuro: alert, oriented to person, place, and time, generalized weakness STUDIES: Encounter Orders Labs and other studies reviewed with pertinent findings noted below: Sodium 133 Potassium 3.4 Creatinine 0.5 Magnesium 1.4 PT 15.4 WBCs 1.7 Hemoglobin 13.1, suspect decrease may be dilutional Platelets 18, improved AST and ALT reviewed, improved from yesterday Bilirubin 1.7, increased from yesterday HIV negative Hepatitis panel negative LDH 384, increased Reticulocyte count reviewed, decreased Assessment and Plan IMPRESSION : Principal Problem: Alcohol withdrawal syndrome with complication (HCC) Active Problems: OCD (obsessive compulsive disorder) Hepatosplenomegaly Leukopenia Thrombocytopenia due to drugs Drug-induced liver injury Alcohol induced fatty liver Lung nodule seen on imaging study Elevated liver transaminase level Generalized anxiety disorder Neutropenic fever (HCC) Resolved Problems: Acute hyperactive alcohol withdrawal delirium (HCC) Acute alcoholic intoxication with complication (HCC) DIFFERENTIAL AND PLAN: Patient remains critically ill with leukocytopenia and thrombocytopenia. Patient also had fevers overnight in the setting of neutropenia. High risk for spontaneous bleeding. High risk for severe alcohol withdrawal. Maintain in critical care unit Continue to monitor for active bleeding Continue to monitor laboratory studies Continue steroid for thrombocytopenia Continue alcohol withdrawal protocol monitor CIWA score, p.r.n. phenobarbital Replace electrolytes Performed MELD score calculation=13 Continue cefepime for neutropenic fever Significant other at bedside PHARMACOLOGIC VTE PROPHYLAXIS: This patient does not have an active medication from one of the medication groupers. CODE STATUS: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 neutropenia diagnosed? Your healthcare provider may check for neutropenia if you have frequent infections. Your provider may also check for neutropenia if you?re having certain treatments, such as chemotherapy, which is known to cause a lower neutrophil count. Neutropenia is often found when a routine complete blood count is drawn. Tests will be done to confirm the problem. These may include: A complete blood count (CBC). This test measures the amounts of the different types of cells in your blood. This includes the WBCs. The WBC count can be broken down further to find the number of neutrophils and immature neutrophils (bands) in your blood. This is called an absolute neutrophil count (ANC). A blood smear. This test checks for the different types of blood cells in your blood and how they appear. A sample of your blood is spread on a glass slide and viewed under a microscope. A stain is used so the blood cells can be seen. A bone marrow aspiration and biopsy. This test checks for problems with how your bone marrow makes blood cells. A needle is used to remove a sample of the bone marrow in your hip bone. The sample is then sent to a lab to be tested for problems. How is neutropenia treated? If there is a clear cause of neutropenia, it is addressed. For instance, if a medicine is the cause, it may be stopped or changed. Often no treatment is needed for mild cases, such as those linked to ethnicity. For moderate to severe cases, treatment is likely needed. This may include: o G-CSF (granulocyte-colony stimulating factor). This is a special type of protein. It helps promote the growth and activity of neutrophils. G-CSF is given by injection. o Bone marrow transplant. This treatment replaces diseased bone marrow cells with healthy cells from a matched donor. This treatment is done only in specific severe cases. What is the long-term outcome of neutropenia? The outcome of neutropenia varies for each person. For some people, neutropenia may resolve after afew weeks or months. For other people, it may be long- lasting. In these cases, ongoing care and treatment may be needed. Your healthcare provider will talk to you more about what to expect from your c ondition. When to call your healthcare provider Call your healthcare provider right away if you have any of the following: Cold sweat or chills Chest pain or trouble breathing Sore throat Cough Extreme tiredness or fatigue Nausea and vomiting Redness, warmth, or drainage from any open cuts or wounds Pain or burning with urination; frequent urination Pain, burning, or bleeding in the rectum Severe constipation or diarrhea Bloody stool or urine Call 911 Fever of 100.4F (38C) or higher. Call 911 or go to the emergency room. This is especially important if you have severe neutropenia. This puts you at higher risk for a life-threatening infection. How can I prevent infections? With neutropenia, take extra care to protect yourself from infection. Talk with your healthcare provider about what steps you need to take. What you do depends on how severe your neutropenia is. The following precautions help prevent infections: Wash your hands often, especially before eating and after using the bathroom. Use clean, runningwater and soap. Scrub for 20 seconds, or for as long as it takes to sing the Happy Birthday song from beginning to end, twice. Or use a hand gel that contains at least 60% alcohol. Stay away from crowds and close contact with others who may be ill. Cook meat and eggs all the way through to kill any germs. Carefully wash raw fruits and vegetables. Depending on how severe your neutropenia is, you may need to drop fresh fruits and vegetables from your diet. Clean items you use often with disinfectant wipes. This includes phones and computer keyboards. Don't touch your eyes, nose, and mouth, especially if your hands are not clean. Practice good oral hygiene. Use a soft toothbrush. Also, brush and floss your teeth gently. Always wipe from front to back after a bowel movement. Stay up to date on vaccines advised by your healthcare provider. Bathe every day and use an unscented lotion to prevent cracked skin. Keep cuts and scrapes clean and covered until they heal. Don't share items such as drinks, eating utensils, towels, toothbrushes, razors, clothing, and sports equipment. Store and handle foods safely to prevent food-borne illness. Protect yourself against pet waste (urine and stool) by using vinyl gloves when cleaning. Always use gloves when gardening. You may have to avoid having live plants in your home. Ask your healthcare provider if you need to take antibiotics before and after having any dental or medical procedures. Ask your healthcare provider if you need to wear a special mask near construction sites or farm areas. Last Reviewed Date: 2022 [employer]. All rights reserved. This information is not intended as a substitute for professional medical care. Always follow your healthcare professional's instructions. * Pt Handout (on AVS) - Ina Quiroga RN - 04/02/2023 9:22 AM EST 65729 Alcohol Addiction How many times in the past year have you had 5 drinks in a day (men) or 4 drinks in a day (women)? Does your drinking harm yourself or others? Or has it led to other problems with your daily life? Ifso, you may be addicted to alcohol. You may have what's called an alcohol use disorder. Your healthcare provider may make this diagnosis if you have had at least 2 of these problems in a year: You drink alcohol in larger amounts or for a longer period than you planned. You often want to cut down or control how much you drink. Or you have often failed to do so. You spend a lot of time getting alcohol, using it, or recovering from its use. You crave or have a strong desire or urge to drink. Your drinking makes it hard for you to be responsible at work, school, or home. You keep on drinking even though you have had problems in relationships or social settings because of it. You give up or miss important social, work, or other activities because of your drinking. You drink alcohol at times when it's not physically safe, such as drinking then driving. You keep on drinking even though you know it has caused physical or emotional problems. You need more and more alcohol to get the same effects. You hide how much you drink from family and friends. You have withdrawal symptoms or use alcohol to prevent such symptoms. You have a drink the first thing in the morning to get rid of a hangover or calm yourself. Last Reviewed Date: 2022 [employer]. All rights reserved. This information is not intended as a substitute for professional medical care. Always follow your healthcare professional's instructions. * Care Plan - Robyn Reese LPN - 04/02/2023 5:21 AM EST Clinical Goal(s): patient will continue to have CIWA score less than or equal to 8 during this shift (04/02/23 0520) Possible barriers to meeting goal(s)/advancing plan of care: alcohol withdrawal Stability of the patient: Moderately stable - low risk of patient condition declining or worsening Summary regarding today's goal(s): Recommendations: continue with poc * Care Plan - Kristina Aviles RN - 04/01/2023 6:42 AM EST Clinical Goal(s): Patient will continue to have a CIWA score < 8 this shift. (03/31/23 2300) Possible barriers to meeting goal(s)/advancing plan of care: alcohol withdrawl Stability of the patient: Moderately stable - low risk of patient condition declining or worsening Summary regarding today's goal(s): Met: Patient's CIWA has been < 8 this shift. Patient has not needed any extra phenobarb other than routine doses. Recommendations: Continue meds and CIWA monitoring as ordered. * Care Plan - Lisa Whitehead RN - 03/31/2023 6:55 PM EST Clinical Goal(s): pt will maintain CIWA score below 8 (03/31/23 0800) Possible barriers to meeting goal(s)/advancing plan of care: alcohol withdrawal Stability of the patient: Moderately stable - low risk of patient condition declining or worsening Summary regarding today's goal(s): Met: pt met goal Recommendations: continue phenobarbitol and CIWA monitoring as ordered * Care Plan - Kristina Aviles RN - 03/31/2023 6:23 AM EST Clinical Goal(s): Patient will continue to have a CIWA score < 8. (03/31/23 0000) Possible barriers to meeting goal(s)/advancing plan of care: ETOH withdrawl Stability of the patient: Moderately stable - low risk of patient condition declining or worsening Summary regarding today's goal(s): Met: Patient had CIWA scores < 8 this shift. Patient rested well through the night. Recommendations: Continue to monitor for signs of alcohol withdrawal. * Care Plan - Db Real RN - 03/30/2023 6:32 PM EST Clinical Goal(s): will increase activity including getting OOB this shift (03/30/23 1500) Possible barriers to meeting goal(s)/advancing plan of care: Effects of ETOH withdrawal Stability of the patient: Moderately stable - low risk of patient condition declining or worsening Summary regarding today's goal(s): Met: was able to ambulate to BR with assist X1 and sat up in chair for a few hours Recommendations: continue to encourage activity * Care Plan - Abbi Lundberg RN - 03/30/2023 8:02 AM EST Clinical Goal(s): will maintain temp < 37.5 (03/30/23 0000) Possible barriers to meeting goal(s)/advancing plan of care: having elevated temps Stability of the patient: Moderately stable - low risk of patient condition declining or worsening Summary regarding today's goal(s): Not met: had temp this AM of 38.3 Recommendations: monitor temp and discuss with MD * Ancillary Progress Note - Tonya Sol RN - 03/29/2023 5:59 PM EST CARE MANAGEMENT - ADULT INITIAL SCREENING [address] [address] Name: Esdras Penny Location: [place] [address] [id number] Date: 03/29/2023 Time: 5:59 PM Discussed patient with the interdisciplinary care team. This Post Tensioning Ironworker performed a chart review and met with patient at bedside to complete admission screen and assessed needs for transition planning. The home health care case manager role and services were explained and emotional support was provided. Chief Complaint: Abnormal Test Results (Low platlets) Pt admitted with Acute alcohol withdrawal. Pts medical decision maker has been identified as being his mother, Ninoska Penny. Per review of the medical record, pt has no admitting MH Dx. Pts primary pharmacy has been identified as being [facility] in [place]. Pt describes having an intact family support system. Pt denies any current or prior Hx of drug abuse.He does have alcohol abuse and has gone on benders for years. This one was for last 15 days and he drank 18 liters of Vodka. Pt denies difficulty completing his ADLs prior to admission. Pt reports to being able to read/write. Pt denies difficulty managing his own medications prior to admission. Prior Living Arrangements What was your living situation prior to admission/observation?: Independently (03/29/231408) Living Quarters: Apartment (03/29/231755) Number of steps to enter living quarters:: 1 at front door and 13 to apt. on 2nd floor (03/29/231755) History of falling: No (03/29/23 1500) Prior Level of Functioning Describe the patient's ability prior to admission/observation to perform ADLs: Performs independently (03/29/231408) Describe the patient's mobility status prior to admission: Patient ambulates independently (03/29/231408) Patient uses assistive device: No (03/29/231408) Caregiver Information Patient Contacts Name Relation Home Work Mobile PATRICIA FRIAS Other - (no specific identity) [phone] NINOSKA PENNY Mother [phone] Risk Stratification/Psychosocial/Care Gaps Risk Stratification Psycho Social / Medical Concerns Identified: Adjustment to illness/injury;Substance Abuse (756) Accessed Neighborly to connect patients to social care resources: No (03/29/231755) OBRA or OPTIONS needed for placement: No (03/29/231755) Readmission Risk Score: 8.62 (03/29/23 1600) AM-PAC Score With Stairs : 24 (03/29/23 1405) Prior to Admission Services Services Prior to Admission TINWARE 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 of Aging (PDA) Waiver Program: N/A (03/29/231755) TINWARE LITHOGRAPH PRESS OPERATOR Transportation (Services received within the last 30 days): Patient drives self;Other - Comment(city transportation, bus, Uber etc.) (03/29/231755) Outpatient Post Tensioning Ironworker: No care steam fitter supervisor to display Patient/Family Expectations: To return home Tentative DC plan: Once deemed Medically appropriate, it's anticipated pt will return back to home pending continued Medical workup/evaluations and findings. Pt has interest in inpatient rehab, but is worried due to being on probation. He would like time tothink about this. The Tx Team will meet daily in order to discuss DC planning/needs. Home Health Aide Caregiver will continue to follow for any identified needs and/or concerns which may arise. For further screening information, please refer to the Care Management flow document. * Ancillary Progress Note - Tonya Sol RN - 03/29/2023 5:54 PM EST Patients keeps his parents address on file, mostly for mail delivery. However, he is living in an Apt in [place]. [address] [place] [address], [facility], [id number]. * ED Metal Ceiling Builder Note - Katty Ayala TECH - 03/29/2023 10:53 AM EST Patient unable to give UA a Sample at this time . and RN aware. * ED Metal Ceiling Builder Note - Marietta Lyman RN - 03/29/2023 10:13 AM EST Pt given a urinal and aware a urine sample is ordered. documented in this encounter Plan of Treatment Upcoming Encounters Date Type Department Care Team (Late st Contact Info) Description 04/05/2023 3:40 PM EST Office Visit [address] [phone] Tami Upton MD [address] [place] [phone] 04/11/2023 9:20 AM EST Telemedicine Hepatology, [address] [address] Leighann Carballo MD [facility] [address] [place], [place] [id number] 04/22/2023 3:00 PM EST Office Visit Hematology Oncology [facility], [address] [phone] Gavin Zhang MD [facility] [place] [address] Pending Results Name Type Priority Associated Diagnoses Date /Time CULTURE, BLOOD Lab Routine 03/29/2023 10:13 AM EST CULTURE, BLOOD Lab Routine 03/29/2023 9:57 AM EST Scheduled Orders Name Type Priority Associated Diagnoses Orde r Schedule HIV ANTIGEN & ANTIBODY SCREEN W/ CONFIRMATION Lab Routine Thrombocytopenia due to drugs Lymphopenia Expected: 03/29/2023, Expires: 03/29/2024 Scheduled Referrals Name Type Priority Associated Diagnoses Orde r Schedule HEPATOLOGY REFERRAL OP Referral Within 10 days (routine) Elevated liver transaminase level Hepatosplenomegaly Alcohol induced fatty liver Ordered: 04/02/2023 HEMATOLOGY/ONCOLOGY REFERRAL OP Referral Within 30 days (routine) Thrombocytopenia due to drugs Other drug-induced neutropenia (HCC) Ordered: 04/02/2023 ALCOHOL/CHEMICAL DEPENDENCY REFERRAL OP Referral Within 3 days (urgent) Alcohol dependence, continuous (HCC) Ordered: 04/02/2023 Health Maintenance Due Date Last Done Comments [...] Procedure Name Priority Date/Time Associated Diagnosis Comments DIFFERENTIAL, AUTOMATED Routine 04/02/19 24 5:33 AM EST BASIC METABOLIC PANEL Routine 04/02/2023 5:33 AM EST CBC Routine 04/02/2023 5:33 AM EST CBC Routine 04/02/2023 5:33 AM EST DIFFERENTIAL, TECHNOLOGIST REVIEW Routine 04/02/2023 5:33 AM EST MAGNESIUM Routine 04/02/2023 5:33 AM EST DIFFERENTIAL, AUTOMATED Routine 04/01/19 24 5:41 AM EST HEPATIC FUNCTION PANEL Routine 4 5:41 AM EST BASIC METABOLIC PANEL Routine 04/01/2023 5:41 AM EST CBC Routine 04/01/2023 5:41 AM EST CBC Routine 04/01/2023 5:41 AM EST DIFFERENTIAL, TECHNOLOGIST REVIEW Routine 04/01/2023 5:41 AM EST MAGNESIUM Routine 04/01/2023 5:41 AM EST DIFFERENTIAL, AUTOMATED Routine 03/31/19 7:39 AM EST BASIC METABOLIC PANEL Routine 03/31/2023 7:39 AM EST CBC Routine 03/31/2023 7:39 AM EST CBC Routine 03/31/2023 7:39 AM EST MAGNESIUM Routine 03/31/2023 7:39 AM EST HEPATITIS C RNA ADD ON Routine 6:30 AM EST EXTRA PINK TOP Routine 03/30/2023 6:30 AM EST EXTRA TUBES Routine 03/30/2023 6:30 AM EST DIFFERENTIAL, AUTOMATED Routine 03/30/19 6:30 AM EST HEPATITIS C ANTIBODY SCREEN WITH PROGRESSION TO HEPATITIS C RNA QUANTITATIVE Routine 03/30/2023 6:30 AM EST HEPATIC FUNCTION PANEL Routine 6:30 AM EST BASIC METABOLIC PANEL Routine 03/30/2023 6:30 AM EST HEPATITIS C ANTIBODY Routine 03/30/2023 6:30 AM EST CBC Routine 03/30/2023 6:30 AM EST PT INR Routine 03/30/2023 6:30 AM EST PHOSPHORUS Routine 03/30/2023 6:30 AM EST CBC Routine 03/30/2023 6:30 AM EST MAGNESIUM Routine 03/30/2023 6:30 AM EST TRANSFUSE PLATELETS Routine 03/29/2023 1 0:13 PM EST HC PRE POOLED LR PLATELETS ACRODOSE EA Routine 03/29/2023 5:55 PM EST TOXICOLOGY, URINE SCREEN CUP W/O CONFIRMATION ([facility] AND [facility] ONLY) Routine 03/29/2023 2:07 PM EST CULTURE, URINE, QUANTITATIVE STAT 03/29/2023 2:06 PM EST MICROSCOPIC EXAM, URINE STAT 03/29/19 2:06 PM EST URINALYSIS, REFLEX TO MICROSCOPIC STAT 03/29/2023 2:06 PM EST PATHOLOGIST SLIDE REVIEW Routine 03/29/2023 1:42 PM EST DIFFERENTIAL, AUTOMATED STAT 03/29/19 1:42 PM EST CBC STAT 03/29/2023 1:42 PM EST CBC STAT 03/29/2023 1:42 PM EST DIFFERENTIAL, TECHNOLOGIST REVIEW Routine 03/29/2023 1:[address] CHEST WO CONTRAST Routine 03/29/2023 1:03 PM EST CULTURE, BLOOD Routine 03/29/2023 10:[address] ABD/PELVIS W IV CONTRAST - WO ORAL CONTRAST STAT 03/29/2023 10:04 AM EST LACTATE, WHOLE BLOOD WITH REFLEX IF ABNORMAL STAT 03/29/2023 9:57 AM EST ABO/RH STAT 03/29/2023 9:57 AM EST TYPE AND SCREEN STAT 03/29/2023 9:57 AM EST CULTURE, BLOOD Routine 03/29/2023 9:57 AM EST RESPIRATORY PATHOGEN PANEL, PCR STAT 03/29/2023 9:44 AM EST SCHISTOCYTES, TECHNOLOGIST REVIEW Add-on 03/29/2023 7:42 AM EST SCHISTOCYTES, TECHNOLOGIST REVIEW Add-on 03/29/2023 7:42 AM EST LYME DISEASE IGM/IGG CONFIRMATION Routine 03/29/2023 7:42 AM EST LACTATE, WHOLE BLOOD WITH REFLEX IF ABNORMAL STAT 03/29/2023 7:42 AM EST LYME DISEASE ANTIBODY SCREEN Routine 03/29/2023 7:42 AM EST ANAPLASMA PHAGOCYTOPHILUM DNA, QL REAL-TIME PCR Routine 03/29/2023 7:42 AM EST EXTRA GREEN TOP WITH GEL Routine 03/29/2023 7:42 AM EST EXTRA GREEN TOP WITH GEL Routine 03/29/2023 7:42 AM EST EXTRA TUBES Routine 03/29/2023 7:42 AM EST PROCALCITONIN Add-on 03/29/2023 7:42 AM EST HEPATITIS B SURFACE ANTIBODY Add-on 03/29/2023 7:42 AM EST HIV ANTIGEN & ANTIBODY SCREEN W/ CONFIRMATION Add-on 03/29/2023 7:42 AM EST LYME DISEASE ANTIBODY SCREEN WITH REFLEX TO CONFIRMATION Routine 03/29/2023 7:42 AM EST BILIRUBIN, DIRECT STAT 03/29/2023 7:4 2 AM EST ACUTE HEPATITIS PANEL Add-on 03/29/2023 7:42 AM EST HEPATIC FUNCTION PANEL Add-on 7:42 AM EST COMPREHENSIVE METABOLIC PANEL STAT 03/29/2023 7:42 AM EST HEPATITIS B CORE ANTIBODY IGM Add-on 03/29/2023 7:42 AM EST HEPATITIS B CORE ANTIBODIES IGG AND IGM Add-on 03/29/2023 7:42 AM EST HEPATITIS B SURFACE ANTIGEN Add-on 03/29/2023 7:42 AM EST CK Add-on 03/29/2023 7:42 AM EST PT INR STAT 03/29/2023 7:42 AM EST PHOSPHORUS STAT 03/29/2023 7:42 AM EST LD Add-on 03/29/2023 7:42 AM EST ETHANOL, MEDICAL STAT 03/29/2023 7:42 AM EST CBC Routine 03/29/2023 7:42 AM EST MAGNESIUM STAT 03/29/2023 7:42 AM EST ACETAMINOPHEN LEVEL Add-on 03/29/2023 7 :42 AM EST RETICULOCYTE PANEL Add-on 03/28/2023 2: 45 PM EST documented in this encounter Results * (ABNORMAL) DIFFERENTIAL, TECHNOLOGIST REVIEW (04/02/2023 5:33 AM EST) Neutrophils % 64.0 40.0 - 75.0 % 04/02/2023 6:08 AM EST [facility] Lymphocytes % 23.0 18.0 - 42.0 % 04/02/2023 6:08 AM EST [facility] Monocytes % 13.0(H) 1.0 - 11.0 % 04/02/2023 6:08 AM EST [facility] Eosinophils % 0.0 0.0 - 6.0 % 04/02/2023 6:08 AM EST [facility] Basophils % 0.0 0.0 - 2.0 % 04/02/2023 6:08 AM EST [facility] Absolute Neutrophils 3.60 1.80 - 7.70 K/uL 04/02/2023 6:08 AM EST [facility] Absolute Lymphocytes 1.29 1.00 - 4.80 K/uL 04/02/2023 6:08 AM EST [facility] Absolute Monocytes 0.73 0.00 - 1.10 K/uL 04/02/2023 6:08 AM EST [facility] Absolute Eosinophils 0.00 0.00 - 0.70 K/uL 04/02/2023 6:08 AM EST [facility] Absolute Basophils 0.00 0.00 - 0.20 K/uL 04/02/2023 6:08 AM EST [facility] nRBCs 04/02/2023 6:08 AM EST [facility] Blood Venous blood specimen / Unknown Venipuncture / Unknown 04/02/2023 5:33 AM EST 04/02/2023 5:40 AM EST Osman Hadley DO LAB BLOOD ORDERAB LES Performing Organization Address City/State/[facility] Co de Phone Number LABORATORY [address] [address] * (ABNORMAL) DIFFERENTIAL, AUTOMATED (04/02/2023 5:33 AM EST) WBC 5.62 4.00 - 10.80 K/uL 04/02/2023 6:08 AM EST [facility] Neutrophils % 62.4 40.0 - 75.0 % 04/02/2023 6:08 AM EST [facility] Lymphocytes % 23.8 18.0 - 42.0 % 04/02/2023 6:08 AM EST [facility] Monocytes % 13.6(H) 1.0 - 11.0 % 04/02/2023 6:08 AM EST [facility]AT[facility] Eosinophils % 0.2 0.0 - 6.0 % 04/02/2023 6:08 AM EST LAB[facility]ATORY [facility] Basophils % 0.0 0.0 - 2.0 % 04/02/2023 6:08 AM EST [facility] Absolute Neutrophils 3.44 1.80 - 7.70 K/uL 04/02/2023 6:08 AM EST [facility] Absolute Lymphocytes 1.31 1.00 - 4.80 K/ul 04/02/2023 6:08 AM EST [facility] Absolute Monocytes 0.75 0.00 - 1.10 K/uL 04/02/2023 6:08 AM EST [facility] Absolute Eosinophils 0.01 0.00 - 0.70 K/uL 04/02/2023 6:08 AM EST [facility] Absolute Basophils 0.00 0.00 - 0.20 K/uL 04/02/2023 6:08 AM EST [facility] Blood Venous blood specimen / Unknown Venipuncture / Unknown 04/02/2023 5:33 AM EST 04/02/2023 5:40 AM EST Osman Thompson Leonie DO LAB BLOOD ORDERAB LES [facility] [place] [id number] [place] [address] * (ABNORMAL) CBC (04/02/2023 5:33 AM EST) WBC 5.62 4.00 - 10.80 K/uL 04/02/2023 6:08 AM EST [facility] RBC 4.48 4.50 - 5.25 M/uL 04/02/2023 6:08 AM EST [facility] HGB 13.6(L) 14.0 - 16.8 g/dL 04/02/2023 6:08 AM EST [facility] HCT 40.6 40.0 - 48.4 % 04/02/2023 6:08 AM EST [facility] MCV 90.6 82.0 - 99.5 fL 04/02/2023 6:08 AM EST [facility] MCH 30.4 27.0 - 34.0 pg 04/02/2023 6:08 AM EST [facility] MCHC 33.5 32.0 - 36.0 g/dL 04/02/2023 6:08 AM EST [facility] RDW 15.5 11.5 - 15.5 % 04/02/2023 6:08 AM EST [facility] PLT 40(L) 140 - 400 K/uL 04/02/2023 6:08 AM EST [facility] MPV 12.0 6.6 - 11.1 fL 04/02/2023 6:08 AM EST [facility] Blood Venous blood specimen / Unknown Venipuncture / Unknown 04/02/2023 5:33 AM EST 04/02/2023 5:40 AM EST Osman Thompson Leonie DO LAB BLOOD ORDERAB LES Performing Organization Address City/[facility]/ZIP Co de Phone Number LABORATORY [address] [address] * MAGNESIUM (04/02/2023 5:33 AM EST) Magnesium 1.7 1.5 - 2.6 mg/dL 04/02/2023 6:01 AM EST LABORATORY [facility] Blood Venous blood specimen / Unknown Venipuncture / Unknown 04/02/2023 5:33 AM EST 04/02/2023 5:40 AM EST [facility]LOOD ORDERAB LES Performing Organization Address [facility]/ZIP Co de Phone Number LABORATORY [address] [address] * (ABNORMAL) BASIC METABOLIC PANEL (04/02/2023 5:33 AM EST) BUN 10 6 - 20 mg/dL 04/02/2023 6:01 AM EST LABORATORY [facility] Creatinine 0.5(L) 0.6 - 1.2 mg/dL 04/02/2023 6:01 AM EST LABORATORY [facility] Estimated Glomerular Filtration Rate >90 >=60 mL/min 04/02/2023 6:01 AM EST LABORATORY [facility] Comment:eGFR is calculated b ased on the CKD-EPI 2020 equation Sodium 135 135 - 146 mmol/L 04/02/2023 6:01 AM EST LABORATORY [facility] Potassium 3.8 3.5 - 5.1 mmol/L 04/02/2023 6:01 AM EST LABORATORY [facility] Chloride 101 98 - 107 mmol/L 04/02/2023 6:01 AM EST LABORATORY [facility] CO2 21(L) 22 - 32 mmol/L 04/02/2023 6:01 AM EST LABORATORY [facility] Anion Gap 13 7 - 15 mmol/L 04/02/2023 6:01 AM EST LABORATORY [facility] Glucose 144(H) 70 - 120 mg/dL 04/02/2023 6:01 AM EST LABORATORY [facility] Calcium 9.3 8.4 - 10.2 mg/dL 04/02/2023 6:01 AM EST LABORATORY [facility] Blood Venous blood specimen / Unknown Venipuncture / Unknown 04/02/2023 5:33 AM EST 04/02/2023 5:40 AM EST Osman Hadley DO LAB BLOOD ORDERAB LES LABORATORY [facility] [address] [place] [address] * (ABNORMAL) DIFFERENTIAL, TECHNOLOGIST REVIEW (04/01/2023 5:41 AM EST) Neutrophils % 73.0 40.0 - 75.0 % 04/01/2023 6:44 AM EST LABORATORY [facility] Lymphocytes % 19.0 18.0 - 42.0 % 04/01/2023 6:44 AM EST LABORATORY [facility] Monocytes % 8.0 1.0 - 11.0 % 04/01/2023 6:44 AM EST LABORATORY [facility] Eosinophils % 0.0 0.0 - 6.0 % 04/01/2023 6:44 AM EST LABORATORY [facility] Basophils % 0.0 0.0 - 2.0 % 04/01/2023 6:44 AM EST LABORATORY [facility] Absolute Neutrophils 3.76 1.80 - 7.70 K/uL 04/01/2023 6:44 AM EST LABORATORY [facility] Absolute Lymphocytes 0.98(L) 1.00 - 4.80 K/uL 04/01/2023 6:44 AM EST LABORATORY [facility] Absolute Monocytes 0.41 0.00 - 1.10 K/uL 04/01/2023 6:44 AM EST LABORATORY [facility] Absolute Eosinophils 0.00 0.00 - 0.70 K/uL 04/01/2023 6:44 AM EST LABORATORY [facility] Absolute Basophils 0.00 0.00 - 0.20 K/uL 04/01/2023 6:44 AM EST LABORATORY [facility] nRBCs 04/01/2023 6:44 AM EST LABORATORY [facility] Blood Venous blood specimen / Unknown Venipuncture / Unknown 04/01/2023 5:41 AM EST 04/01/2023 5:52 AM EST Osman Hadley DO LAB BLOOD ORDERAB LES LABORATORY [facility] [address] [place] [address] * (ABNORMAL) DIFFERENTIAL, AUTOMATED (04/01/2023 5:41 AM EST) Pathologist [facility] WBC 5.15 4.00 - 10.80 K/uL 04/01/2023 6:44 AM EST LABORATORY [facility] Neutrophils % 71.5 40.0 - 75.0 % 04/01/2023 6:44 AM EST LABORATORY [facility] Lymphocytes % 19.4 18.0 - 42.0 % 04/01/2023 6:44 AM EST LABORATORY [facility] Monocytes % 9.1 1.0 - 11.0 % 04/01/2023 6:44 AM EST LABORATORY [facility] Eosinophils % 0.0 0.0 - 6.0 % 04/01/2023 6:44 AM EST LABORATORY [facility] Basophils % 0.0 0.0 - 2.0 % 04/01/2023 6:44 AM EST LABORATORY [facility] Absolute Neutrophils 3.55 1.80 - 7.70 K/uL 04/01/2023 6:44 AM EST LABORATORY [facility] Absolute Lymphocytes 0.96(L) 1.00 - 4.80 K/ul 04/01/2023 6:44 AM EST LABORATORY [facility] Absolute Monocytes 0.45 0.00 - 1.10 K/uL 04/01/2023 6:44 AM EST LABORATORY [facility] Absolute Eosinophils 0.00 0.00 - 0.70 K/uL 04/01/2023 6:44 AM EST LABORATORY [facility] Absolute Basophils 0.00 0.00 - 0.20 K/uL 04/01/2023 6:44 AM EST LABORATORY [facility] Blood Venous blood specimen / Unknown Venipuncture / Unknown 04/01/2023 5:41 AM EST 04/01/2023 5:52 AM EST Osman Hadley DO LAB BLOOD ORDERAB LES LABORATORY [facility] [address] [place] [address] * (ABNORMAL) CBC (04/01/2023 5:41 AM EST) WBC 5.15 4.00 - 10.80 K/uL 04/01/2023 6:44 AM EST LABORATORY [facility] RBC 4.73 4.50 - 5.25 M/uL 04/01/2023 6:44 AM EST LABORATORY [facility] HGB 14.3 14.0 - 16.8 g/dL 04/01/2023 6:44 AM EST LABORATORY [facility] HCT 42.6 40.0 - 48.4 % 04/01/2023 6:44 AM EST LABORATORY [facility] MCV 90.1 82.0 - 99.5 fL 04/01/2023 6:44 AM EST LABORATORY [facility] MCH 30.2 27.0 - 34.0 pg 04/01/2023 6:44 AM EST LABORATORY [facility] MCHC 33.6 32.0 - 36.0 g/dL 04/01/2023 6:44 AM EST LABORATORY [facility] RDW 15.2 11.5 - 15.5 % 04/01/2023 6:44 AM EST LABORATORY [facility] PLT 25(L) 140 - 400 K/uL 04/01/2023 6:44 AM EST LABORATORY [facility] MPV 10.9 6.6 - 11.1 fL 04/01/2023 6:44 AM EST LABORATORY [facility] Blood Venous blood specimen / Unknown Venipuncture / Unknown 04/01/2023 5:41 AM EST 04/01/2023 5:52 AM EST Osman Hadley DO LAB BLOOD ORDERAB LES LABORATORY [facility] [address] [place] [address] * (ABNORMAL) HEPATIC FUNCTION PANEL (04/01/2023 5:41 AM EST) Albumin 4.1 3.8 - 5.0 g/dL 04/01/2023 7:16 AM EST LABORATORY [facility] AST 251(H) 10 - 50 U/L 04/01/2023 7:16 AM EST LABORATORY [facility] Alkaline Phosphatase 90 35 - 130 U/L 04/01/2023 7:16 AM EST LABORATORY [facility] ALT 182(H) 10 - 50 U/L 04/01/2023 7:16 AM EST LABORATORY [facility] Bilirubin, Total 1.3(H) <=1.2 mg/dL 04/01/2023 7:16 AM EST LABORATORY [facility] Bilirubin, Direct 0.7(H) 0.0 - 0.3 mg/dL 04/01/2023 7:16 AM EST LABORATORY [facility] Protein 8.1 6.0 - 8.3 g/dL 04/01/2023 7:16 AM EST LABORATORY [facility] Blood Venous blood specimen / Unknown Venipuncture / Unknown 04/01/2023 5:41 AM EST 04/01/2023 5:52 AM EST [facility] LAB BLOOD ORDERAB LES Performing Organization Address City/[facility]/ZIP Co de Phone Number LABORATORY [address] [address] * MAGNESIUM (04/01/2023 5:41 AM EST) Magnesium 2.1 1.5 - 2.6 mg/dL 04/01/2023 7:16 AM EST LABORATORY [facility] Blood Venous blood specimen / Unknown Venipuncture / Unknown 04/01/2023 5:41 AM EST 04/01/2023 5:52 AM EST [facility] LAB BLOOD ORDERAB LES LABORATORY [address] [address] * (ABNORMAL) BASIC METABOLIC PANEL (04/01/2023 5:41 AM EST) BUN 11 6 - 20 mg/dL 04/01/2023 7:16 AM EST LABORATORY [facility] Creatinine 0.5(L) 0.6 - 1.2 mg/dL 04/01/2023 7:16 AM EST LABORATORY [facility] Estimated Glomerular Filtration Rate >90 >=60 mL/min 04/01/2023 7:16 AM EST LABORATORY [facility] Comment:eGFR is calculated b ased on the CKD-EPI 2020 equation Sodium 134(L) 135 - 146 mmol/L 04/01/2023 7:16 AM EST LABORATORY [facility] Potassium 4.1 3.5 - 5.1 mmol/L 04/01/2023 7:16 AM EST LABORATORY [facility] Chloride 99 98 - 107 mmol/L 04/01/2023 7:16 AM EST LABORATORY [facility] CO2 20(L) 22 - 32 mmol/L 04/01/2023 7:16 AM EST LABORATORY [facility] Anion Gap 15 7 - 15 mmol/L 04/01/2023 7:16 AM EST LABORATORY [facility] Glucose 113 70 - 120 mg/dL 04/01/2023 7:16 AM EST LABORATORY [facility] Calcium 9.4 8.4 - 10.2 mg/dL 04/01/2023 7:16 AM EST LABORATORY [facility] Blood Venous blood specimen / Unknown Venipuncture / Unknown 04/01/2023 5:41 AM EST 04/01/2023 5:52 AM EST Osman Hadley DO LAB BLOOD ORDERAB LES Performing Organization Address City/State/[facility] Co de Phone Number LABORATORY [address] [address] * (ABNORMAL) DIFFERENTIAL, AUTOMATED (03/31/2023 7:39 AM EST) WBC 2.00(L) 4.00 - 10.80 K/uL 03/31/2023 9:20 AM EST LABORATORY [facility] Neutrophils % 59.5 40.0 - 75.0 % 03/31/2023 9:20 AM EST LABORATORY [facility] Lymphocytes % 30.5 18.0 - 42.0 % 03/31/2023 9:20 AM EST LABORATORY [facility] Monocytes % 10.0 1.0 - 11.0 % 03/31/2023 9:20 AM EST LABORATORY [facility] Eosinophils % 0.0 0.0 - 6.0 % 03/31/2023 9:20 AM EST LABORATORY [facility] Basophils % 0.0 0.0 - 2.0 % 03/31/2023 9:20 AM EST LABORATORY [facility] Absolute Neutrophils 1.19(L) 1.80 - 7.70 K/uL 03/31/2023 9:20 AM EST LABORATORY [facility] Absolute Lymphocytes 0.61(L) 1.00 - 4.80 K/ul 03/31/2023 9:20 AM EST LABORATORY [facility] Absolute Monocytes 0.20 0.00 - 1.10 K/uL 03/31/2023 9:20 AM EST LABORATORY [facility] Absolute Eosinophils 0.00 0.00 - 0.70 K/uL 03/31/2023 9:20 AM EST LABORATORY [facility] Absolute Basophils 0.00 0.00 - 0.20 K/uL 03/31/2023 9:20 AM EST LABORATORY [facility] Blood Venous blood specimen / Unknown Venipuncture / Unknown 03/31/2023 7:39 AM EST 03/31/2023 8:27 AM EST Osman Hadley LAB BLOOD ORDERAB LES Performing Organization Address [facility]/State/ZIP Co de Phone Number LABORATORY [place] [id number] [place] [address] * (ABNORMAL) CBC (03/31/2023 7:39 AM EST) WBC 2.00(L) 4.00 - 10.80 K/uL 03/31/2023 9:20 AM EST LABORATORY [facility] RBC 4.71 4.50 - 5.25 M/uL 03/31/2023 9:20 AM EST LABORATORY [facility] HGB 14.3 14.0 - 16.8 g/dL 03/31/2023 9:20 AM EST LABORATORY [facility] HCT 42.2 40.0 - 48.4 % 03/31/2023 9:20 AM EST LABORATORY [facility] MCV 89.6 82.0 - 99.5 fL 03/31/2023 9:20 AM EST LABORATORY [facility] MCH 30.4 27.0 - 34.0 pg 03/31/2023 9:20 AM EST LABORATORY [facility] MCHC 33.9 32.0 - 36.0 g/dL 03/31/2023 9:20 AM EST LABORATORY [facility] RDW 14.9 11.5 - 15.5 % 03/31/2023 9:20 AM EST LABORATORY [facility] PLT 20(LL) 140 - 400 K/uL 03/31/2023 9:20 AM EST LABORATORY [facility] MPV 12.5 6.6 - 11.1 fL 03/31/2023 9:20 AM EST LABORATORY [facility] Blood Venous blood specimen / Unknown Venipuncture / Unknown 03/31/2023 7:39 AM EST 03/31/2023 8:27 AM EST [facility] BLOOD ORDERAB LES Performing Organization Address City/[facility]/ZIP Co de Phone Number LABORATORY [address] [address] * MAGNESIUM (03/31/2023 7:39 AM EST) Magnesium 2.4 1.5 - 2.6 mg/dL 03/31/2023 8:48 AM EST LABORATORY [facility] Blood Venous blood specimen / Unknown Venipuncture / Unknown 03/31/2023 7:39 AM EST 03/31/2023 8:27 AM EST [facility] LAB BLOOD ORDERAB LES Performing Organization Address [facility]/ZIP Co de Phone Number LABORATORY [address] [phone] * (ABNORMAL) BASIC METABOLIC PANEL (03/31/2023 7:39 AM EST) BUN 8 6 - 20 mg/dL 03/31/2023 8:48 AM EST LABORATORY [facility] Creatinine 0.4(L) 0.6 - 1.2 mg/dL 03/31/2023 8:48 AM EST LABORATORY [facility] Estimated Glomerular Filtration Rate >90 >=60 mL/min 03/31/2023 8:48 AM EST LABORATORY [facility] Comment:eGFR is calculated b ased on the CKD-EPI 2020 equation Sodium 132(L) 135 - 146 mmol/L 03/31/2023 8:48 AM EST LABORATORY [facility] Potassium 4.3 3.5 - 5.1 mmol/L 03/31/2023 8:48 AM EST LABORATORY [facility] Chloride 96(L) 98 - 107 mmol/L 03/31/2023 8:48 AM EST LABORATORY [facility] CO2 21(L) 22 - 32 mmol/L 03/31/2023 8:48 AM EST LABORATORY [facility] Anion Gap 15 7 - 15 mmol/L 03/31/2023 8:48 AM EST LABORATORY [facility] Glucose 115 70 - 120 mg/dL 03/31/2023 8:48 AM EST LABORATORY [facility] Calcium 9.4 8.4 - 10.2 mg/dL 03/31/2023 8:48 AM EST LABORATORY [facility] Blood Venous blood specimen / Unknown Venipuncture / Unknown 03/31/2023 7:39 AM EST 03/31/2023 8:27 AM EST Osman Jay Leonie DO LAB BLOOD ORDERAB LES Performing Organization Address City/[facility]/ZIP Co de Phone Number LABORATORY [facility] [address] [place] [address] * EXTRA PINK TOP (03/30/2023 6:30 AM EST) Blood Venous blood specimen / Unknown 03/30/2023 6:30 AM EST 03/30/2023 3:41 PM EST Osman Jay Leonie DO LAB BLOOD ORDERAB LES Performing Organization Address City/[facility]/ZIP Co de Phone Number LABORATORY [facility] [address] [place] [address] * HEPATITIS C RNA ADD ON (03/30/2023 6:30 AM EST) Blood Venous blood specimen / Unknown Venipuncture / Unknown 03/30/2023 6:30 AM EST 03/30/2023 6:49 AM EST Osman Jay Leonie DO LAB BLOOD ORDERAB LES LABORATORY [facility] [address] [place] [address] * HEPATITIS C ANTIBODY (03/30/2023 6:30 AM EST) Pathologist [facility] Hepatitis C Antibody Negative Negative 03/30/2023 1:47 PM EST LABORATORY [facility] Comment:Further HCV quantita tive testing not performed per protocol. Blood Venous blood specimen / Unknown Venipuncture / Unknown 03/30/2023 6:30 AM EST 03/30/2023 6:49 AM EST Osman Thompson Leonie DO LAB BLOOD ORDERAB LES LABORATORY [facility] [address] [place] [address] * (ABNORMAL) DIFFERENTIAL, AUTOMATED (03/30/2023 6:30 AM EST) Pathologist [facility] WBC 1.73(L) 4.00 - 10.80 K/uL 03/30/2023 7:16 AM EST LABORATORY [facility] Neutrophils % 44.6 40.0 - 75.0 % 03/30/2023 7:16 AM EST LABORATORY [facility] Lymphocytes % 46.2(H) 18.0 - 42.0 % 03/30/2023 7:16 AM EST LABORATORY [facility] Monocytes % 7.5 1.0 - 11.0 % 03/30/2023 7:16 AM EST LABORATORY [facility] Eosinophils % 1.7 0.0 - 6.0 % 03/30/2023 7:16 AM EST LABORATORY [facility] Basophils % 0.0 0.0 - 2.0 % 03/30/2023 7:16 AM EST LABORATORY [facility] Absolute Neutrophils 0.77(L) 1.80 - 7.70 K/uL 03/30/2023 7:16 AM EST LABORATORY [facility] Absolute Lymphocytes 0.80(L) 1.00 - 4.80 K/ul 03/30/2023 7:16 AM EST LABORATORY [facility] Absolute Monocytes 0.13 0.00 - 1.10 K/uL 03/30/2023 7:16 AM EST LABORATORY [facility] Absolute Eosinophils 0.03 0.00 - 0.70 K/uL 03/30/2023 7:16 AM EST LABORATORY [facility] Absolute Basophils 0.00 0.00 - 0.20 K/uL 03/30/2023 7:16 AM EST LABORATORY [facility] Blood Venous blood specimen / Unknown Venipuncture / Unknown 03/30/2023 6:30 AM EST 03/30/2023 6:49 AM EST Osman Hadley DO LAB BLOOD ORDERAB LES LABORATORY [facility] [address] [place] [address] * (ABNORMAL) CBC (03/30/2023 6:30 AM EST) [facility] WBC 1.73(L) 4.00 - 10.80 K/uL 03/30/2023 7:16 AM EST LABORATORY [facility] RBC 4.25 4.50 - 5.25 M/uL 03/30/2023 7:16 AM EST LABORATORY [facility] HGB 13.1(L) 14.0 - 16.8 g/dL 03/30/2023 7:16 AM EST LABORATORY [facility] HCT 38.4(L) 40.0 - 48.4 % 03/30/2023 7:16 AM EST LABORATORY [facility] MCV 90.4 82.0 - 99.5 fL 03/30/2023 7:16 AM EST LABORATORY [facility] MCH 30.8 27.0 - 34.0 pg 03/30/2023 7:16 AM EST LABORATORY [facility] MCHC 34.1 32.0 - 36.0 g/dL 03/30/2023 7:16 AM EST LABORATORY [facility] RDW 15.0 11.5 - 15.5 % 03/30/2023 7:16 AM EST LABORATORY [facility] PLT 18(LL) 140 - 400 K/uL 03/30/2023 7:16 AM EST LABORATORY [facility] MPV 11.2 6.6 - 11.1 fL 03/30/2023 7:16 AM EST LABORATORY [facility] Blood Venous blood specimen / Unknown Venipuncture / Unknown 03/30/2023 6:30 AM EST 03/30/2023 6:49 AM EST Osman Hadley DO LAB BLOOD ORDERAB LES LABORATORY [address] [address] * (ABNORMAL) PT INR (03/30/2023 6:30 AM EST) Prothrombin Time 15.4(H) 11.6 - 15.2 seconds 03/30/2023 7:10 AM EST LABORATORY [facility] INR 1.2 0.8 - 1.2 03/30/2023 7:10 AM EST LABORATORY [facility] Blood Venous blood specimen / Unknown Venipuncture / Unknown 03/30/2023 6:30 AM EST 03/30/2023 6:49 AM EST Narrative LABORATORY [facility] - 03/30/2023 7:10 AM EST Warfarin Therapy INR: 2.0-3.0 conventional anticoagulation INR: 2.5-3.5 high intensity anticoagulation Osman Hadley DO LAB BLOOD ORDERAB LES Performing Organization Address City/State/[facility] Co de Phone Number LABORATORY [address] [address] * (ABNORMAL) HEPATIC FUNCTION PANEL (03/30/2023 6:30 AM EST) Albumin 3.8 3.8 - 5.0 g/dL 03/30/2023 7:15 AM EST LABORATORY [facility] AST 397(H) 10 - 50 U/L 03/30/2023 7:15 AM EST LABORATORY [facility] Alkaline Phosphatase 88 35 - 130 U/L 03/30/2023 7:15 AM EST LABORATORY [facility] ALT 200(H) 10 - 50 U/L 03/30/2023 7:15 AM EST LABORATORY [facility] Bilirubin, Total 1.7(H) <=1.2 mg/dL 03/30/2023 7:15 AM EST LABORATORY [facility] Bilirubin, Direct 0.9(H) 0.0 - 0.3 mg/dL 03/30/2023 7:15 AM EST LABORATORY [facility] Protein 7.3 6.0 - 8.3 g/dL 03/30/2023 7:15 AM EST LABORATORY [facility] Blood Venous blood specimen / Unknown Venipuncture / Unknown 03/30/2023 6:30 AM EST 03/30/2023 6:49 AM EST Osman Hadley DO LAB BLOOD ORDERAB LES Performing Organization Address City/[facility]/ZIP Co de Phone Number LABORATORY [address] [address] * PHOSPHORUS (03/30/2023 6:30 AM EST) Phosphorus 2.6 2.5 - 4.8 mg/dL 03/30/2023 7:15 AM EST LABORATORY [facility] Blood Venous blood specimen / Unknown Venipuncture / Unknown 03/30/2023 6:30 AM EST 03/30/2023 6:49 AM EST Osman Hadley DO LAB BLOOD ORDERAB LES Performing Organization Address City/[facility]/ZIP Co de Phone Number LABORATORY [address] [address] * (ABNORMAL) MAGNESIUM (03/30/2023 6:30 AM EST) Magnesium 1.4(L) 1.5 - 2.6 mg/dL 03/30/2023 7:15 AM EST LABORATORY [facility] Blood Venous blood specimen / Unknown Venipuncture / Unknown 03/30/2023 6:30 AM EST 03/30/2023 6:49 AM EST Osman Hadley DO LAB BLOOD ORDERAB LES Performing Organization Address City/[facility]/ZIP Co de Phone Number LABORATORY [address] [address] * (ABNORMAL) BASIC METABOLIC PANEL (03/30/2023 6:30 AM EST) BUN 8 6 - 20 mg/dL 03/30/2023 7:15 AM EST LABORATORY [facility] Creatinine 0.5(L) 0.6 - 1.2 mg/dL 03/30/2023 7:15 AM EST LABORATORY [facility] Estimated Glomerular Filtration Rate >90 >=60 mL/min 03/30/2023 7:15 AM EST LABORATORY [facility] Comment:eGFR is calculated b ased on the CKD-EPI 2020 equation Sodium 133(L) 135 - 146 mmol/L 03/30/2023 7:15 AM EST LABORATORY [facility] Potassium 3.4(L) 3.5 - 5.1 mmol/L 03/30/2023 7:15 AM EST LABORATORY [facility] Chloride 95(L) 98 - 107 mmol/L 03/30/2023 7:15 AM EST LABORATORY [facility] CO2 23 22 - 32 mmol/L 03/30/2023 7:15 AM EST LABORATORY [facility] Anion Gap 15 7 - 15 mmol/L 03/30/2023 7:15 AM EST LABORATORY [facility] Glucose 89 70 - 120 mg/dL 03/30/2023 7:15 AM EST LABORATORY [facility] Calcium 8.8 8.4 - 10.2 mg/dL 03/30/2023 7:15 AM EST LABORATORY [facility] Blood Venous blood specimen / Unknown Venipuncture / Unknown 03/30/2023 6:30 AM EST 03/30/2023 6:49 AM EST [facility]OD ORDERAB LES Performing Organization Address [facility]/State/ZIP Co de Phone Number LABORATORY [address] [address] * TRANSFUSE PLATELETS (03/29/2023 11:55 PM EST) [facility] * TRANSFUSE PLATELETS (03/29/2023 11:55 PM EST) [facility] * PREPARE PLATELETS (03/29/2023 5:55 PM EST) Unit Product Code [id number] LABORATORY [facility] BLOOD BANK Unit Number [id number] LABO RATORY [facility] BLOOD BANK Unit ABO AB LABORATORY [facility] BLOOD BANK Unit Rh POS LABORATORY [facility] BLOOD BANK Unit Status PT LABORATO RY [facility] BLOOD BANK Unit Blood Type ABPOS LABORATORY [facility] BLOOD BANK Unit Expiration [id number] LABORATORY [facility] BLOOD BANK Unit Barcode [id number] LABORAT ORY [facility] BLOOD BANK 03/29/2023 5:55 PM EST Osman Hadley DO BLD BANK PRODUCT ORDERABLES LABORATORY [facility] BLOOD BANK [facility] [place] [address] * (ABNORMAL) TOXICOLOGY, URINE SCREEN CUP W/O CONFIRMATION ([facility] ONLY) (03/29/2023 2:07 PM EST) Amphetamines Screen, U Negative Negative 03/29/2023 2:51 PM EST LABORATORY [facility] Barbiturates Screen, U Positive(A) Negative 03/29/2023 2:51 PM EST LABORATORY [facility] Benzodiazepines Screen, U Negative Negative 03/29/2023 2:51 PM EST LABORATORY [facility] Cannabinoids Screen, U Positive(A) Negative 03/29/2023 2:51 PM EST LABORATORY [facility] Cocaine Metabolite Screen, U Negative Negative 03/29/2023 2:51 PM EST LABORATORY [facility] Methadone Screen, U Negative Negative 03/29/2023 2:51 PM EST LABORATORY [facility] Morphine/Codeine Screen, U Negative Negative 03/29/2023 2:51 PM EST LABORATORY [facility] Oxycodone Screen, U Negative Negative 03/29/2023 2:51 PM EST LAB[facility] Urine Non-blood Collection / Unknown 03/29/2023 2:07 PM EST 03/29/2023 2:27 PM EST Narrative LAB[facility] - 03/29/2023 2:51 PM EST Cutoff Concentrations: Drug Level Amphetamines 500 ng/mL Barbiturates 300 ng/mL Benzodiazepines 300 ng/mL Cannabinoids 50 ng/mL Cocaine Metabolite 300 ng/mL Morphine / Codeine 300 ng/mL Methadone 300 ng/mL Oxycodone 100 ng/mL Screening results are presumptive and can only be used for medical purposes. Confirmatory testing is available upon request. Osman Hadley DO LAB URINE ORDERAB LES LAB[facility]AT[facility] [address] [id number] * (ABNORMAL) MICROSCOPIC EXAM, URINE (03/29/2023 2:06 PM EST) RBC, Urine 0-2 0 - 2 /HPF 03/29/2023 2:55 PM EST [facility] WBC, Urine 0-2 0 - 2 /HPF 03/29/2023 2:55 PM EST [facility] Bacteria, Urine 51-100(A) 0 - 25 /HPF 03/29/2023 2:55 PM EST [facility] Urine Non-blood Collection / Unknown 03/29/2023 2:06 PM EST 03/29/2023 2:27 PM EST Gregory Dykes MD LAB URINE ORDERABLES LABORATORY [place] [id number] [place] [address] * CULTURE, URINE, QUANTITATIVE (03/29/2023 2:06 PM EST) Pathologist [facility] Culture Growth No significant growth 03/30/2023 12:41 PM EST LABORATORY [facility] Urine Urine specimen obtained by clean catch procedure / Unknown Non-blood Collection / Unknown 03/29/2023 2:06 PM EST 03/29/2023 2:26 PM EST Gregory Dykes MD LAB MICRO - GENERAL ORDERABLES LABORATORY [facility] [address] [place] [address] * (ABNORMAL) URINALYSIS, REFLEX TO MICROSCOPIC (03/29/2023 2:06 PM EST) Pathologist [facility] Color, Urine Laysa(A) Light Yellow, Yellow, Dark Yellow 03/29/2023 2:55 PM EST [facility] Clarity, Urine Clear Clear 03/29/2023 2:55 PM EST [facility] Glucose, Urine Negative Negative mg/dL 03/29/2023 2:55 PM EST [facility] Bilirubin, Urine Small(A) Negative 03/29/2023 2:55 PM EST [facility] Ketone, Urine Trace(A) Negative mg/dL 03/29/2023 2:55 PM EST [facility] Specific [place], Urine >1.060(H) 1.003 - 1.030 03/29/2023 2:55 PM EST [facility] Blood, Urine Negative Negative 03/29/2023 2:55 PM EST [facility] pH, Urine 7.0 5.0 - 7.5 Units 03/29/2023 2:55 PM EST LAB[facility]ORY [facility] Protein, Urine 30(A) Negative mg/dL 03/29/2023 2:55 PM EST LAB[facility]ORY [facility] Urobilinogen, Urine >=8.0(A) 0.2, 1.0 mg/dL 03/29/2023 2:55 PM EST LAB[facility]ATORY [facility] Nitrite, Urine Negative Negative 03/29/2023 2:55 PM EST LABORATORY [facility], Urine Negative Negative 03/29/2023 2:55 PM EST LABORATORY [facility] Urine Non-blood Collection / Unknown 03/29/2023 2:06 PM EST 03/29/2023 2:27 PM EST Gregory Dykes MD LAB URINE ORDERABLES Performing Organization Address City/[facility]/ZIP Co de Phone Number LABORATORY [facility] [address] [place] [address] * PATHOLOGIST SLIDE REVIEW (03/29/2023 1:42 PM EST) Pathologist Slide Review Leukopenia with normal morphology of leukocytes. Thrombocytopeni a possibly due to peripheral sequestration/o r consumption and/or destruction. Reviewed by pathologist. 03/31/2023 2:19 PM EST LABORATORY [facility] Blood Venous blood specimen / Unknown Venipuncture / Unknown 03/29/2023 1:42 PM EST 03/29/2023 1:56 PM EST Gregory Dykes MD LAB BLOOD ORDERABLES LABORATORY [facility] [address] [place] [address] * DIFFERENTIAL, TECHNOLOGIST REVIEW (03/29/2023 1:42 PM EST) Blood Venous blood specimen / Unknown Venipuncture / Unknown 03/29/2023 1:42 PM EST 03/29/2023 1:56 PM EST Gregory Dykes MD LAB BLOOD ORDERABLES LABORATORY [facility] [address] [place] [address] * (ABNORMAL) DIFFERENTIAL, AUTOMATED (03/29/2023 1:42 PM EST) WBC 1.84(L) 4.00 - 10.80 K/uL 03/31/2023 2:19 PM EST LABORATORY [facility] Neutrophils % 33.2(L) 40.0 - 75.0 % 03/31/2023 2:19 PM EST LABORATORY [facility] Lymphocytes % 60.3(H) 18.0 - 42.0 % 03/31/2023 2:19 PM EST LABORATORY [facility] Monocytes % 6.0 1.0 - 11.0 % 03/31/2023 2:19 PM EST LABORATORY [facility] Eosinophils % 0.5 0.0 - 6.0 % 03/31/2023 2:19 PM EST LABORATORY [facility] Basophils % 0.0 0.0 - 2.0 % 03/31/2023 2:19 PM EST LABORATORY [facility] Absolute Neutrophils 0.61(L) 1.80 - 7.70 K/uL 03/31/2023 2:19 PM EST LABORATORY [facility] Absolute Lymphocytes 1.11 1.00 - 4.80 K/ul 03/31/2023 2:19 PM EST LABORATORY [facility] Absolute Monocytes 0.11 0.00 - 1.10 K/uL 03/31/2023 2:19 PM EST LABORATORY [facility] Absolute Eosinophils 0.01 0.00 - 0.70 K/uL 03/31/2023 2:19 PM EST LABORATORY [facility] Absolute Basophils 0.00 0.00 - 0.20 K/uL 03/31/2023 2:19 PM EST LABORATORY [facility] Blood Venous blood specimen / Unknown Venipuncture / Unknown 03/29/2023 1:42 PM EST 03/29/2023 1:56 PM EST Gregory Dykes MD LAB BLOOD ORDERABLES LABORATORY [place] [address] [place] [address] LABORATORY [facility] [address] [place] [address] * (ABNORMAL) CBC (03/29/2023 1:42 PM EST) WBC 1.84(L) 4.00 - 10.80 K/uL 03/29/2023 2:25 PM EST LABORATORY [facility] RBC 4.75 4.50 - 5.25 M/uL 03/29/2023 2:25 PM EST LABORATORY [facility] HGB 14.4 14.0 - 16.8 g/dL 03/29/2023 2:25 PM EST LABORATORY [facility] HCT 42.9 40.0 - 48.4 % 03/29/2023 2:25 PM EST LABORATORY [facility] MCV 90.3 82.0 - 99.5 fL 03/29/2023 2:25 PM EST LABORATORY [facility] MCH 30.3 27.0 - 34.0 pg 03/29/2023 2:25 PM EST LABORATORY [facility] MCHC 33.6 32.0 - 36.0 g/dL 03/29/2023 2:25 PM EST LABORATORY [facility] RDW 15.5 11.5 - 15.5 % 03/29/2023 2:25 PM EST LABORATORY [facility] PLT <10(LL) 140 - 400 K/uL 03/29/2023 2:25 PM EST LABORATORY [facility] MPV 03/29/2023 2:25 PM EST LABORATORY [facility] Comment:No result - abnormal platelet distribution. Blood Venous blood specimen / Unknown Venipuncture / Unknown 03/29/2023 1:42 PM EST 03/29/2023 1:56 PM EST Gregory Dykes MD LAB BLOOD ORDERABLES LABORATORY [address] [address] * CT CHEST WO CONTRAST (03/29/2023 1:03 PM EST) Anatomical Region Laterality Modality Chest, Body, Cardio Computed Bladimir ography 03/29/2023 12:5 7 PM EST Impressions 03/29/2023 1:28 PM EST IMPRESSION: Tiny sub 6 mm nodules. If the patient does not have known cancer, follow up should be based on clinical information because of the low risk of cancer in this age group. (Reference: Babita) REFERENCES: Babita Oneil et al. Guidelines for Management of Incidental Pulmonary Nodules Detected on CT Images: From the Fleischner Society 2017. Radiology. 2017;284(1):228-243. THIS DOCUMENT HAS BEEN ELECTRONICALLY SIGNED BY OZ BARRON MD Narrative 03/29/2023 1:28 PM EST PROCEDURE INFORMATION: Exam: CT Chest Without Contrast; Diagnostic Exam date and time: 03/29/2023 12:57 PM Age: 32 years old Clinical indication: Abnormal findings; Lung mass or nodule; Not specified; Additional info: Lung nodule TECHNIQUE: Imaging protocol: Diagnostic computed tomography of the chest without contrast. 3D rendering (Not supervised by radiologist): MIP and/or 3D reconstructed images were created by the technologist. Radiation optimization: All CT scans at this facility use at least one of these dose optimization techniques: automated exposure control; mA and/or kV adjustment per patient size (includes targeted exams where dose is matched to clinical indication); or iterative reconstruction. COMPARISON: CT ABD/PELVIS W IV CONTRAST - WO ORAL CONTRAST 03/29/2023 9:55 AM FINDINGS: Lungs: Lungs are well aerated. Subtle 3 mm nodule at the right lung base, series 12, image 247 stable compared to previous CT. 4 mm nodule in right middle lobe, series 4, image 60. Pinpoint 1-2 mm nodule right lung apex, series 4, image 21 Pleural spaces: Unremarkable. No pneumothorax. No pleural effusion. Heart: Unremarkable. No cardiomegaly. No pericardial effusion. There is no evidence of significant atherosclerotic coronary artery calcifications. Lymph nodes: Unremarkable. No enlarged lymph nodes. Vasculature: Unremarkable. No aortic aneurysm. Liver: There is a diffuse decrease in hepatic parenchymal density, consistent with fatty infiltration. Bones/joints: Unremarkable. No acute fracture. Soft tissues: Unremarkable. Procedure Note Oz Barron MD - 03/29/2023 PROCEDURE INFORMATION: Exam: CT Chest Without Contrast; Diagnostic Exam date and time: 03/29/2023 12:57 PM Age: 32 years old Clinical indication: Abnormal findings; Lung mass or nodule; Notspecified; Additional info: Lung nodule TECHNIQUE: Imaging protocol: Diagnostic computed tomography of the chest withoutcontrast. 3D rendering (Not supervised by radiologist): MIP and/or 3D reconstructed images were created by the technologist. Radiation optimization: All CT scans at this facility use at least one ofthese dose optimization techniques: automated exposure control; mA and/or kV adjustment per patient size (includes targeted exams where dose is matchedto clinical indication); or iterative reconstruction. COMPARISON: CT ABD/PELVIS W IV CONTRAST - WO ORAL CONTRAST 03/29/2023 9:55 AM FINDINGS: Lungs: Lungs are well aerated. Subtle 3 mm nodule at the right lung base, series 12, image 247 stable compared to previous CT. 4 mm nodule in right middle lobe, series 4, image 60. Pinpoint 1-2 mm nodule right lung apex,series 4, image 21 Pleural spaces: Unremarkable. No pneumothorax. No pleural effusion. Heart: Unremarkable. No cardiomegaly. No pericardial effusion. There is no evidence of significant atherosclerotic coronary artery calcifications. Lymph nodes: Unremarkable. No enlarged lymph nodes. Vasculature: Unremarkable. No aortic aneurysm. Liver: There is a diffuse decrease in hepatic parenchymal density,consistent with fatty infiltration. Bones/joints: Unremarkable. No acute fracture. Soft tissues: Unremarkable. IMPRESSION IMPRESSION: Tiny sub 6 mm nodules. If the patient does not have known cancer, followup should be based on clinical information because of the low risk of cancerin this age group. (Reference: Babita) REFERENCES: Babita Oneil, et al. Guidelines for Management of Incidental PulmonaryNodules Detected on CT Images: From the Fleischner Society 2017. Radiology. 2017;284(1):228-243. THIS DOCUMENT HAS BEEN ELECTRONICALLY SIGNED BY OZ BARRON MD Osmanbonita Thompson Leonie DO RAD CT * CT ABD/PELVIS W IV CONTRAST - WO ORAL CONTRAST (03/29/2023 10:04 AM EST) Anatomical Region Laterality Modality Body, Abdomen, Pelvis Computed T omography 03/29/2023 9:55 AM EST Impressions 03/29/2023 10:19 AM EST IMPRESSION: Liver is enlarged with diffuse marked [...] CT chest is recommended. FLEISCHNER SOCIETY CRITERIA: Solid pulmonary nodule: Please note these follow-up guidelines apply to newly detected indeterminate solid nodules in persons 35 years of age or older. SOLID NODULES <6 mm Single nodule: Low risk: No routine follow-up in low risk patients High risk: Optional CT at 12 months Multiple nodules: Low risk: No routine follow-up in low risk patients High risk: Optional CT at 12 months 6-8 mm Single nodule: Low risk: CT at 6-12 months, then consider CT at 18-24 months High risk: CT at 6-12 months, then CT at 18-24 months Multiple nodules: Low risk - [...] 3-6 months. If stable, consider CT at 2 and 4 years =/> 6 mm Single nodule: Ground glass: CT at 6-12 months to confirm persistence, then CT every 2 years until 5 years Part solid: CT at 3-6 months to confirm persistence. If unchanged and solid component remains <6 mm, annual CT should be performed for 5 years. Multiple nodules: CT at 3-6 months. Subsequent management based on most suspicious nodule(s). http://pubs.rsna.org/doi/full/10.1148/radiol.[email or web address] THIS DOCUMENT HAS BEEN ELECTRONICALLY SIGNED BY BINA HOUSE MD Narrative 03/29/2023 10:19 AM EST PROCEDURE INFORMATION: Exam: CT Abdomen And Pelvis With Contrast Exam date and time: 03/29/2023 9:55 AM Age: 32 years old Clinical indication: Other: Weakness and abnormal labs; Additional info: Elevated transaminases, leukopenia, thrombocytopenia TECHNIQUE: Imaging protocol: Computed tomography of the abdomen and pelvis with contrast. Radiation optimization: All CT scans at this facility use at least one of these dose optimization techniques: automated exposure control; mA and/or kV adjustment per patient size (includes targeted exams where dose is matched to clinical indication); or iterative reconstruction. Contrast material: OPTIRAY 320; Contrast volume: 100 ml; Contrast route: INTRAVENOUS (IV); COMPARISON: No relevant prior studies available. FINDINGS: Pleural spaces: Pleural base nodule in the right lung base measuring 3 mm, (series 4, image 25). Liver: Liver is enlarged with diffuse marked fatty [...] lesions versus geographic areas of fatty infiltration. Gallbladder and bile ducts: Normal. No calcified stones. No ductal dilation. Pancreas: Normal. No ductal dilation. Spleen: Spleen is enlarged measuring 16.6 cm in craniocaudal direction. Adrenal glands: Normal. No mass. Kidneys and ureters: Normal. No hydronephrosis. Stomach and bowel: Nondistention versus mild thickening of the ascending colon and transverse colon without any surrounding inflammatory changes. Rest of the colon and small bowel are unremarkable. Stomach is unremarkable. Appendix: Normal appendix. Intraperitoneal space: Unremarkable. No free air. No significant fluid collection. Vasculature: Unremarkable. No abdominal aortic aneurysm. Lymph nodes: Few prominent subcentimeter mesenteric root lymph nodes measuring up to 10.6 mm. Urinary bladder: Unremarkable as visualized. Reproductive: Unremarkable as visualized. Bones/joints: Old healed bilateral pars interarticularis defect at L5 with 3 mm anterolisthesis of L5 on S1. No acute fracture. Mild degenerative changes. Soft tissues: Unremarkable. Procedure Note Bina House MD - 03/29/2023 PROCEDURE INFORMATION: Exam: CT Abdomen And Pelvis With Contrast Exam date and time: 03/29/2023 9:55 AM Age: 32 years old Clinical indication: Other: Weakness and abnormal labs; Additional info: Elevated transaminases, leukopenia, thrombocytopenia TECHNIQUE: Imaging protocol: Computed tomography of the abdomen and pelvis withcontrast. Radiation optimization: All CT scans at this facility use at least one ofthese dose optimization techniques: automated exposure control; mA and/or kV adjustment per patient size (includes targeted exams where dose is matchedto clinical indication); or iterative reconstruction. Contrast material: OPTIRAY 320; Contrast volume: 100 ml; Contrast route: INTRAVENOUS (IV); COMPARISON: No relevant prior studies available. FINDINGS: Pleural spaces: Pleural base nodule in the right lung base measuring 3 mm, (series 4, image 25). Liver: Liver is enlarged with diffuse marked fatty infiltration.Additionally there is large geographic low-attenuation area in the right lobe of theliver measuring approximately 10.1 x 63.3 mm, and another similar area is seen adjacent to the gallbladder fossa measuring 42.2 x 24.5 mm. Furtherevaluation with hepatic protocol nonemergent MRI examination is recommended to ruleout underlying geographic lesions versus geographic areas of fattyinfiltration. Gallbladder and bile ducts: Normal. No calcified stones. No ductaldilation. Pancreas: Normal. No ductal dilation. Spleen: Spleen is enlarged measuring 16.6 cm in craniocaudal direction. Adrenal glands: Normal. No mass. Kidneys and ureters: Normal. No hydronephrosis. Stomach and bowel: Nondistention versus mild thickening of the ascendingcolon and transverse colon without any surrounding inflammatory changes. Rest ofthe colon and small bowel are unremarkable. Stomach is unremarkable. Appendix: Normal appendix. Intraperitoneal space: Unremarkable. No free air. No significant fluid collection. Vasculature: Unremarkable. No abdominal aortic aneurysm. Lymph nodes: Few prominent subcentimeter mesenteric root lymph nodesmeasuring up to 10.6 mm. Urinary bladder: Unremarkable as visualized. Reproductive: Unremarkable as visualized. Bones/joints: Old healed bilateral pars interarticularis defect at L5 with3 mm anterolisthesis of L5 on S1. No acute fracture. Mild degenerativechanges. Soft tissues: Unremarkable. IMPRESSION IMPRESSION: Liver is enlarged with diffuse marked fatty infiltration. Additionallythere is large geographic low-attenuation area in the right lobe of the livermeasuring approximately 10.1 x 63.3 mm, and another similar area is seen adjacent tothe gallbladder fossa measuring 42.2 x 24.5 mm. Further evaluation withhepatic protocol nonemergent MRI examination is recommended to rule out underlying geographic lesions versus geographic areas of fatty infiltration. Spleen is enlarged measuring 16.6 cm in craniocaudal direction. Nondistention versus mild thickening of the ascending colon and transverse colon without any surrounding inflammatory changes. Rest of the colon andsmall bowel are unremarkable. Stomach is unremarkable. Pleural base nodule in the right lung base measuring 3 mm, (series 4,image 25). Further evaluation with CT chest is recommended. FLEISCHNER SOCIETY CRITERIA: Solid pulmonary nodule: Please note these follow-up guidelines apply tonewly detected indeterminate solid nodules in persons 35 years of age or older. SOLID NODULES <6 mm Single nodule: Low risk: No routine follow-up in low risk patients High risk: Optional CT at 12 months Multiple nodules: Low risk: No routine follow-up in low risk patients High risk: Optional CT at 12 months 6-8 mm Single nodule: Low risk: CT at 6-12 months, then consider CT at 18-24 months High risk: CT at 6-12 months, then CT at 18-24 months Multiple nodules: Low risk - [...] 3-6 months. If stable, consider CT at 2 and 4 years =/> 6 mm Single nodule: Ground glass: CT at 6-12 months to confirm persistence, then CT every 2 years until 5 years Part solid: CT at 3-6 months to confirm persistence. If unchanged andsolid component remains <6 mm, annual CT should be performed for 5 years. Multiple nodules: CT at 3-6 months. Subsequent management based on most suspiciousnodule(s). http://pubs.rsna.org/doi/full/10.1148/radiol.[email or web address] THIS DOCUMENT HAS BEEN ELECTRONICALLY SIGNED BY BINA HOUSE MD Gregory Dykes MD RAD CT * ABO/RH (03/29/2023 9:57 AM EST) ABO A 03/29/2023 5:18 PM EST LABORATORY [facility] BLOOD BANK Rh Positive 03/29/2023 5:18 PM EST LABORATORY [facility] BLOOD BANK Blood Venous blood specimen / Unknown Venipuncture / Unknown 03/29/2023 9:57 AM EST 03/29/2023 10:16 AM EST Gregory Dykes MD LAB BLOOD BANK TEST ORDERABLES Performing Organization Address City/[facility]/ZIP Co de Phone Number LABORATORY [facility] BLOOD BANK [address] [place] [address] * LACTATE, WHOLE BLOOD WITH REFLEX IF ABNORMAL (03/29/2023 9:57 AM EST) Pathologist [facility] Lactate, Whole Blood 1.9 0.4 - 2.0 mmol/L 03/29/2023 10:18 AM EST LABORATORY [facility] Blood Venous blood specimen / Unknown Venipuncture / Unknown 03/29/2023 9:57 AM EST 03/29/2023 10:16 AM EST Gregory Dykes MD LAB BLOOD ORDERABLES LABORATORY [facility] [address] [place] [address] * TYPE AND SCREEN (03/29/2023 9:57 AM EST) ABO A 03/29/2023 5:18 PM EST LABORATORY [facility] BLOOD BANK Rh Positive 03/29/2023 5:18 PM EST LABORATORY [facility] BLOOD BANK Red Blood Cell Antibody Screen Negative 03/29/2023 5:18 PM EST LABORATORY [facility] BLOOD BANK Specimen Expiration Date 04/01/2023 23:59 03/29/2023 5:18 PM EST LABORATORY [facility] BLOOD BANK Blood Venous blood specimen / Unknown Venipuncture / Unknown 03/29/2023 9:57 AM EST 03/29/2023 10:16 AM EST Gregory Dykes MD LAB BLOOD BANK TEST ORDERABLES Performing Organization Address City/State/[facility] Co de Phone Number LABORATORY [facility] BLOOD BANK [address] [place] [address] * RESPIRATORY PATHOGEN PANEL, PCR (03/29/2023 9:44 AM EST) Adenovirus by PCR Negative Negative 024 11:06 AM EST LABORATORY [facility] Coronavirus 229E by PCR Negative Negative 03/29/2023 11:06 AM EST LABORATORY [facility] Coronavirus HKU1 by PCR Negative Negative 03/29/2023 11:06 AM EST LABORATORY [facility] Coronavirus NL63 by PCR Negative Negative 03/29/2023 11:06 AM EST LABORATORY [facility] Coronavirus OC43 by PCR Negative Negative 03/29/2023 11:06 AM EST LABORATORY [facility] Coronavirus SARS-CoV-2 by PCR Negative Negative 03/29/2023 11:06 AM EST LABORATORY [facility] Human Metapneumovirus by PCR Negative Negative 03/29/2023 11:06 AM EST LABORATORY [facility] Rhinovirus/Enterovi wagner by PCR Negative Negative 03/29/2023 11:06 AM EST LABORATORY [facility] Influenza A Virus by PCR Negative Negative 03/29/2023 11:06 AM EST LABORATORY [facility] Influenza B Virus by PCR Negative Negative 03/29/2023 11:06 AM EST LABORATORY [facility] Parainfluenza Virus 1 by PCR Negative Negative 03/29/2023 11:06 AM EST LABORATORY [facility] Parainfluenza Virus 2 by PCR Negative Negative 03/29/2023 11:06 AM EST LABORATORY [facility] Parainfluenza Virus 3 by PCR Negative Negative 03/29/2023 11:06 AM EST LABORATORY [facility] Parainfluenza Virus 4 by PCR Negative Negative 03/29/2023 11:06 AM EST LABORATORY [facility] Respiratory Syncytial Virus by PCR Negative Negative 03/29/2023 11:06 AM EST LABORATORY [facility] Bordetella pertussis by PCR Negative Negative 03/29/2023 11:06 AM EST LABORATORY [facility] Chlamydia pneumoniae by PCR Negative Negative 03/29/2023 11:06 AM EST LABORATORY [facility] Mycoplasma pneumoniae by PCR Negative Negative 03/29/2023 11:06 AM EST LABORATORY [facility] Bordetella parapertussis by PCR Negative Negative 03/29/2023 11:06 AM EST LABORATORY [facility] Comment: The primers that detect Rhinovirus may cross react with some Enterorviruses. The validation of bronchial specimens, tracheal aspirates, and throats for this assay was developed and performance characteristics determined by [employer]. The validation of alternate specimen types has not been cleared or approved by the U.S. Food and Drug Administration (FDA). It has been determined that such clearance or approval is not necessary. Upper Respiratory Mid-turbinate nasal swab / Unknown Non-blood Collection / Unknown 03/29/2023 9:44 AM EST 03/29/2023 10:16 AM EST Kate MCLEAN LAB MICRO - GENERAL ORDERABLES LABORATORY [place] [id number] [place] [address] * (ABNORMAL) LYME DISEASE IGM/IGG CONFIRMATION (03/29/2023 7:42 AM EST) [facility] Lyme IgM Confirmation Negative Negative 04/02/2023 9:02 AM EST LABORATORY [facility] Lyme IgG Confirmation Positive(A) Negative 04/02/2023 9:02 AM EST LABORATORY [facility] Interpretation 04/02/2023 9:02 AM EST LABORATORY [facility] Comment: Results are consistent with B. burgdorferi infection (Lyme disease) in the recent or remote past. IgG-class antibodies may remain detectable for months to years following resolution of infection. Results should NOT be used to monitor or establish adequate response to therapy. Response to therapy is confirmed through resolution of clinical symptoms; additional laboratory testing should not be performed. Test results reported to [facility]. Blood Venous blood specimen / Unknown Venipuncture / Unknown 03/29/2023 7:42 AM EST 03/29/2023 7:56 AM EST Kate MCLEAN LAB BLOOD ORDERABLE S Performing Organization Address City/[facility]/ZIP Co de Phone Number LABORATORY [facility] [address] [place] [address] * (ABNORMAL) LD (03/29/2023 7:42 AM EST) Pathologist [facility] LD 348(H) <=250 U/L 03/30/2023 6:51 AM EST LABORATORY [facility] Blood Venous blood specimen / Unknown 03/29/2023 7:42 AM EST 03/29/2023 7:57 AM EST Osman Hadley DO LAB BLOOD ORDERAB LES Performing Organization Address [facility] de Phone Number LABORATORY [facility] [address] [place] [address] * HIV ANTIGEN & ANTIBODY SCREEN W/ CONFIRMATION (03/29/2023 7:42 AM EST) [facility] HIV Antigen & Antibody Negative Negative 03/29/2023 5:37 PM EST LABORATORY [facility] Comment:Negative HIV-1/2 ant igen and antibody screening tset results usually indicate the absence of HIV-1 and HIV-2 infection. However, such negative results do not rule-out acute HIV infection. If acute HIV-1 infection is highly suspected, it is recommended that a specimen be submitted for detection of HIV-1 RNA. Blood Venous blood specimen / Unknown Venipuncture / Unknown 03/29/2023 7:42 AM EST 03/29/2023 7:56 AM EST Osman Hadley DO LAB BLOOD ORDERAB LES Performing Organization Address City/[facility]/ZIP Co de Phone Number LABORATORY [facility] [address] [place] [address] * HEPATITIS B CORE ANTIBODIES IGG AND IGM (03/29/2023 7:42 AM EST) [facility] Hepatitis B Core Antibodies IgG and IgM Negative Negative 03/29/2023 5:37 PM EST LABORATORY [facility] Blood Venous blood specimen / Unknown Venipuncture / Unknown 03/29/2023 7:42 AM EST 03/29/2023 7:56 AM EST Osman Jay Leonie DO LAB BLOOD ORDERAB LES Performing Organization Address City/[facility]/ZIP Co de Phone Number LABORATORY [facility] [address] [place] [address] * HEPATITIS B CORE ANTIBODY IGM (03/29/2023 7:42 AM EST) Pathologist [facility] Hepatitis B Core Antibody IgM Negative Negative 03/29/2023 5:37 PM EST LABORATORY [facility] Blood Venous blood specimen / Unknown Venipuncture / Unknown 03/29/2023 7:42 AM EST 03/29/2023 7:56 AM EST Osman Jay Leonie DO LAB BLOOD ORDERAB LES Performing Organization Address [facility] de Phone Number LABORATORY [facility] [address] [place] [address] * HEPATITIS B SURFACE ANTIBODY (03/29/2023 7:42 AM EST) Hepatitis B Surface Antibody, Quantitative 656.0 mIU/mL 03/29/2023 5:37 PM EST [facility] [place] Hepatitis B Surface Antibody, Qualitative Positive 03/29/2023 5:37 PM EST LABORATORY [facility] Hepatitis B Surface Antibody, Interpretation Immune to Hepatitis B Virus 03/29/2023 5:37 PM EST [facility] Comment: POSITIVE: >=11.5 mIU/mL INDETERMINATE: 8.5-<11.5 mIU/mL NEGATIVE: <8.5 mIU/mL Blood Venous blood specimen / Unknown Venipuncture / Unknown 03/29/2023 7:42 AM EST 03/29/2023 7:56 AM EST Osman Jay Leonie DO LAB BLOOD ORDERAB LES Performing Organization Address City/[facility] Co de Phone Number LABORATORY [facility] [address] [place] [address] * HEPATITIS B SURFACE ANTIGEN (03/29/2023 7:42 AM EST) Pathologist [facility] Hepatitis B Surface Antigen Negative Negative 03/29/2023 5:37 PM EST [facility] Blood Venous blood specimen / Unknown Venipuncture / Unknown 03/29/2023 7:42 AM EST 03/29/2023 7:56 AM EST [facility] BLOOD ORDERAB LES Performing Organization Address City/[facility]/ZIP Co de Phone Number LABORATORY [facility] [address] [place] [address] * CK (03/29/2023 7:42 AM EST) [facility] CK 138 39 - 308 U/L 03/29/2023 1:03 PM EST LABORATORY [facility] Blood Venous blood specimen / Unknown Venipuncture / Unknown 03/29/2023 7:42 AM EST 03/29/2023 7:56 AM EST [facility] LAB BLOOD ORDERAB LES Performing Organization Address [facility] de Phone Number LABORATORY [address] [address] * SCHISTOCYTES, TECHNOLOGIST REVIEW (03/29/2023 7:42 AM EST) [facility] Schistocytes, Technologist Review None Seen None Seen 03/29/2023 12:52 PM EST LABORATORY [facility] Blood Venous blood specimen / Unknown Venipuncture / Unknown 03/29/2023 7:42 AM EST 03/29/2023 7:56 AM EST Gregory Dykes MD LAB BLOOD ORDERABLES Performing Organization Address [facility] de Phone Number LABORATORY [address] [address] * (ABNORMAL) PROCALCITONIN (03/29/2023 7:42 AM EST) [facility] Procalcitonin 0.14(H) <0.10 ng/mL 03/29/2023 6:41 PM EST [facility] Blood Venous blood specimen / Unknown 03/29/2023 7:42 AM EST 03/29/2023 7:57 AM EST Narrative LAB[facility]ATORY [facility] - 03/29/2023 6:41 PM EST Less than 0.5 ng/mL: Low risk for progression to sepsis. Review patients condition for localized infections. 0.5 to 2.0 ng/mL: Intermediate risk for progresion to sepsis. Review underlying conditions. Recommend repeat PCT after 6 hours has elapsed. Greater than 2.0 ng/mL: high risk for progression to sepsis unless other causes are known. Gregory Dykes MD LAB BLOOD ORDERABLES Performing Organization Address City/[facility] Co de Phone Number LABORATORY [address] [address] * ACUTE HEPATITIS PANEL (03/29/2023 7:42 AM EST) Pathologist [facility] Hepatitis A Antibody IgM Negative Negative 03/29/2023 5:37 PM EST [facility]AT[facility] Hepatitis B Core Antibody IgM Negative Negative 03/29/2023 5:37 PM EST [facility]AT[facility] Hepatitis B Surface Antigen Negative Negative 03/29/2023 5:37 PM EST [facility]AT[facility] Hepatitis C Antibody Negative Negative 03/29/2023 5:37 PM EST [facility] Blood Venous blood specimen / Unknown Venipuncture / Unknown 03/29/2023 7:42 AM EST 03/29/2023 7:56 AM EST Gregory Dykes MD LAB BLOOD ORDERABLES Performing Organization Address [facility] Co de Phone Number LABORATORY [place] [address] [place] [address] * (ABNORMAL) ACETAMINOPHEN LEVEL (03/29/2023 7:42 AM EST) Acetaminophen Level <5.0(L) 10.0 - 30.0 ug/mL 03/29/2023 10:39 AM EST LABORATORY [facility] Blood Venous blood specimen / Unknown Venipuncture / Unknown 03/29/2023 7:42 AM EST 03/29/2023 7:56 AM EST Gregory Dykes MD LAB BLOOD ORDERABLES Performing Organization Address [facility] de Phone Number LABORATORY [address] [phone] * (ABNORMAL) HEPATIC FUNCTION PANEL (03/29/2023 7:42 AM EST) Albumin 4.3 3.8 - 5.0 g/dL 03/29/2023 8:22 AM EST LABORATORY [facility] AST 560(H) 10 - 50 U/L 03/29/2023 8:22 AM EST LABORATORY [facility] Alkaline Phosphatase 105 35 - 130 U/L 03/29/2023 8:22 AM EST LABORATORY [facility] ALT 270(H) 10 - 50 U/L 03/29/2023 8:22 AM EST LABORATORY [facility] Bilirubin, Total 1.2 <=1.2 mg/dL 03/29/2023 8:22 AM EST LABORATORY [facility] Bilirubin, Direct 0.7(H) 0.0 - 0.3 mg/dL 03/29/2023 8:22 AM EST LABORATORY [facility] Protein 8.3 6.0 - 8.3 g/dL 03/29/2023 8:22 AM EST LABORATORY [facility] Blood Venous blood specimen / Unknown Venipuncture / Unknown 03/29/2023 7:42 AM EST 03/29/2023 7:56 AM EST Kate MCLEAN LAB BLOOD ORDERABLE S Performing Organization Address [facility] Phone Number LABORATORY [address] [phone] * EXTRA GREEN TOP WITH GEL (03/29/2023 7:42 AM EST) Blood Venous blood specimen / Unknown 03/29/2023 7:42 AM EST 03/29/2023 7:57 AM EST Gregory Dykes MD LAB BLOOD ORDERABLES Performing Organization Address [facility] Co de Phone Number LABORATORY [address] [phone] * EXTRA GREEN TOP WITH GEL (03/29/2023 7:42 AM EST) Blood Venous blood specimen / Unknown 03/29/2023 7:42 AM EST 03/29/2023 7:57 AM EST Gregory Dykes MD LAB BLOOD ORDERABLES Performing Organization Address [facility]/ZIP Co de Phone Number LABORATORY [address] [phone] * (ABNORMAL) BILIRUBIN, DIRECT (03/29/2023 7:42 AM EST) [facility] Bilirubin, Direct 0.7(H) 0.0 - 0.3 mg/dL 03/29/2023 8:22 AM EST LABORATORY [facility] Blood Venous blood specimen / Unknown Venipuncture / Unknown 03/29/2023 7:42 AM EST 03/29/2023 7:56 AM EST Kate MCLEAN LAB BLOOD ORDERABLE S Performing Organization Address [facility] de Phone Number LABORATORY [address] [phone] * (ABNORMAL) LYME DISEASE ANTIBODY SCREEN (03/29/2023 7:42 AM EST) [facility] Lyme Disease Antibody Screen Positive( A) Negative 04/01/2023 10:05 AM EST [facility]ORATORY [facility] Comment: Result is preliminary and not diagnostic. Second-tier testing will be reflexively performed to confirm preliminary antibody screen result and reported separately. Test result reported to [facility]. Blood Venous blood specimen / Unknown Venipuncture / Unknown 03/29/2023 7:42 AM EST 03/29/2023 7:56 AM EST Kate MCLEAN LAB BLOOD ORDERABLE S Performing Organization Address City/[facility]/ZIP Co de Phone Number LABORATORY [facility] [address] [place] [address] * (ABNORMAL) CBC (03/29/2023 7:42 AM EST) WBC 2.31(L) 4.00 - 10.80 K/uL 03/29/2023 8:22 AM EST LABORATORY [facility] RBC 4.86 4.50 - 5.25 M/uL 03/29/2023 8:22 AM EST LABORATORY [facility] HGB 14.8 14.0 - 16.8 g/dL 03/29/2023 8:22 AM EST LABORATORY [facility] HCT 43.9 40.0 - 48.4 % 03/29/2023 8:22 AM EST LABORATORY [facility] MCV 90.3 82.0 - 99.5 fL 03/29/2023 8:22 AM EST LABORATORY [facility] MCH 30.5 27.0 - 34.0 pg 03/29/2023 8:22 AM EST LABORATORY [facility] MCHC 33.7 32.0 - 36.0 g/dL 03/29/2023 8:22 AM EST LABORATORY [facility] RDW 15.5 11.5 - 15.5 % 03/29/2023 8:22 AM EST LABORATORY [facility] PLT 13(LL) 140 - 400 K/uL 03/29/2023 8:22 AM EST LABORATORY [facility] MPV 03/29/2023 8:22 AM EST LABORATORY [facility] Comment:No result - abnormal platelet distribution. Blood Venous blood specimen / Unknown Venipuncture / Unknown 03/29/2023 7:42 AM EST 03/29/2023 7:56 AM EST Kate MCLEAN LAB BLOOD ORDERABLE S Performing Organization Address City/State/[facility] Co de Phone Number LABORATORY [address] [phone] * (ABNORMAL) ETHANOL, MEDICAL (03/29/2023 7:42 AM EST) Ethanol, Medical 215.0(H) Negative mg/dL 03/29/2023 8:22 AM EST LABORATORY [facility] Blood Venous blood specimen / Unknown Venipuncture / Unknown 03/29/2023 7:42 AM EST 03/29/2023 7:56 AM EST Kate MCLEAN LAB BLOOD ORDERABLE S Performing Organization Address [facility]/ZIP Co de Phone Number LABORATORY [address] [phone] * PHOSPHORUS (03/29/2023 7:42 AM EST) Phosphorus 3.5 2.5 - 4.8 mg/dL 03/29/2023 8:22 AM EST LABORATORY [facility] Blood Venous blood specimen / Unknown Venipuncture / Unknown 03/29/2023 7:42 AM EST 03/29/2023 7:56 AM EST Kate MCLEAN LAB BLOOD ORDERABLE S Performing Organization Address [facility] Co de Phone Number LABORATORY [address] [phone] * MAGNESIUM (03/29/2023 7:42 AM EST) Magnesium 1.7 1.5 - 2.6 mg/dL 03/29/2023 8:22 AM EST LABORATORY [facility] Blood Venous blood specimen / Unknown Venipuncture / Unknown 03/29/2023 7:42 AM EST 03/29/2023 7:56 AM EST Kate MCLEAN LAB BLOOD ORDERABLE S Performing Organization Address [facility] Co de Phone Number LABORATORY [address] [phone] * ANAPLASMA PHAGOCYTOPHILUM DNA, QL REAL-TIME PCR (03/29/2023 7:42 AM EST) A.Phagocytophil um, DNA, PCR Not Detected Not Detected 04/01/2023 9:54 PM EST [employer] [facility] Comment: This test was developed and its analytical performance characteristics have been determined by [employer] [place], [place]. It has not been cleared or approved by the U.S. Food and Drug Administration. This assay has been validated pursuant to the CLIA regulations and is used for clinical purposes. Test Performed at: [facility] [place] [address] [place] [address] José Miguel Page M.D., Ph.D.,Director of Laboratories Blood Venous blood specimen / Unknown Venipuncture / Unknown 03/29/2023 7:42 AM EST 03/29/2023 7:56 AM EST Kate MCLEAN LAB BLOOD ORDERABLE S [employer] [facility] [address] [place] [address] * PT INR (03/29/2023 7:42 AM EST) Prothrombin Time 15.1 11.6 - 15.2 seconds 03/29/2023 8:11 AM EST LABORATORY [facility] INR 1.2 0.8 - 1.2 03/29/2023 8:11 AM EST LABORATORY [facility] Blood Venous blood specimen / Unknown Venipuncture / Unknown 03/29/2023 7:42 AM EST 03/29/2023 7:56 AM EST Narrative LABORATORY [facility] - 03/29/2023 8:11 AM EST Warfarin Therapy INR: 2.0-3.0 conventional anticoagulation INR: 2.5-3.5 high intensity anticoagulation Kate MCLEAN LAB BLOOD ORDERABLE S LABORATORY [address] [phone] * LACTATE, WHOLE BLOOD WITH REFLEX IF ABNORMAL (03/29/2023 7:42 AM EST) Lactate, Whole Blood 1.9 0.4 - 2.0 mmol/L 03/29/2023 8:06 AM EST LABORATORY [facility] Blood Venous blood specimen / Unknown Venipuncture / Unknown 03/29/2023 7:42 AM EST 03/29/2023 7:56 AM EST Kate MCLEAN LAB BLOOD ORDERABLE S LABORATORY [facility] [address] [place] [address] * (ABNORMAL) COMPREHENSIVE METABOLIC PANEL (03/29/2023 7:42 AM EST) BUN 8 6 - 20 mg/dL 03/29/2023 8:22 AM EST LABORATORY [facility] Creatinine 0.4(L) 0.6 - 1.2 mg/dL 03/29/2023 8:22 AM EST LABORATORY [facility] Estimated Glomerular Filtration Rate >90 >=60 mL/min 03/29/2023 8:22 AM EST LABORATORY [facility] Comment:eGFR is calculated b ased on the CKD-EPI 2020 equation Sodium 136 135 - 146 mmol/L 03/29/2023 8:22 AM EST LABORATORY [facility] Potassium 3.5 3.5 - 5.1 mmol/L 03/29/2023 8:22 AM EST LABORATORY [facility] Chloride 98 98 - 107 mmol/L 03/29/2023 8:22 AM EST LABORATORY [facility] CO2 21(L) 22 - 32 mmol/L 03/29/2023 8:22 AM EST LABORATORY [facility] Anion Gap 17(H) 7 - 15 mmol/L 03/29/2023 8:22 AM EST LABORATORY [facility] Glucose 99 70 - 120 mg/dL 03/29/2023 8:22 AM EST LABORATORY [facility] Albumin 4.3 3.8 - 5.0 g/dL 03/29/2023 8:22 AM EST LABORATORY [facility] AST 560(H) 10 - 50 U/L 03/29/2023 8:22 AM EST LABORATORY [facility] Alkaline Phosphatase 105 35 - 130 U/L 03/29/2023 8:22 AM EST LABORATORY [facility] Bilirubin, Total 1.2 <=1.2 mg/dL 03/29/2023 8:22 AM EST LABORATORY [facility] Calcium 9.0 8.4 - 10.2 mg/dL 03/29/2023 8:22 AM EST LABORATORY [facility] Protein 8.3 6.0 - 8.3 g/dL 03/29/2023 8:22 AM EST LABORATORY [facility] ALT 270(H) 10 - 50 U/L 03/29/2023 8:22 AM EST LABORATORY [facility] Blood Venous blood specimen / Unknown Venipuncture / Unknown 03/29/2023 7:42 AM EST 03/29/2023 7:56 AM EST Kate H Ja MCLEAN LAB BLOOD ORDERABLE S LABORATORY [facility] [address] [place] [address] * (ABNORMAL) RETICULOCYTE PANEL (03/28/2023 2:45 PM EST) Reticulocyte Percent 0.47(L) 0.80 - 1.90 % 03/29/2023 9:55 PM EST LAB[facility]ATORY [facility] Absolute Reticulocyte 24.8(L) 31.3 - 100.1 K/uL 03/29/2023 9:55 PM EST LAB[facility]ORY [facility] Immature Reticuloctye Fraction 3.2 2.5 - 20.6 % 03/29/2023 9:55 PM EST LAB[facility] Reticulocyte Hemoglobin 37.1 29.7 - 37.4 pg 03/29/2023 9:55 PM EST [facility] Blood Venous blood specimen / Unknown Venipuncture / Unknown 03/28/2023 2:45 PM EST 03/28/2023 2:45 PM EST Osmanbonita Thompson Leonie HENDRICKS LAB BLOOD ORDERAB LES LAB[facility]ATORY [facility] [address] [place] [address] documented in this encounter Visit Diagnoses Diagnosis Alcohol withdrawal syndrome with complication (HCC)- Primary Hepatitis Hepatitis, unspecified Chest pain Chest pain, unspecified Thrombocytopenia due to drugs Other secondary thrombocytopenia Lymphopenia Lymphocytopenia Elevated liver transaminase level Hepatosplenomegaly Other chronic nonalcoholic liver disease Alcohol induced fatty liver Alcoholic fatty liver Other drug-induced neutropenia (HCC) Alcohol dependence, continuous (HCC) Other and unspecified alcohol dependence, continuous drinking behavior Acute hyperactive alcohol withdrawal delirium (HCC) Acute alcoholic intoxication with complication (HCC) Leucopenia Leukocytopenia, unspecified Thrombocytopenia due to drugs Other secondary thrombocytopenia Drug-induced liver injury Hepatosplenomegaly Other chronic nonalcoholic liver disease Alcohol induced fatty liver Alcoholic fatty liver Lung nodule seen on imaging study Solitary pulmonary nodule OCD (obsessive compulsive disorder) Obsessive-compulsive disorders Elevated liver transaminase level Generalized anxiety disorder Neutropenic fever (HCC) Neutropenia, unspecified Alcohol dependence, continuous (HCC) Other and unspecified alcohol dependence, continuous drinking behavior History of Lyme disease Personal history of other infectious and parasitic disease documented in this encounter Administered Medications Inactive Administered Medications - up to 3 most recent administrations Medication Order MAR Action Action Date Dose Rate Site Acetaminophen (Tylenol) tab 650 mg 650 mg, Oral, Q6H PRN Fever >38C(100.5F), Starting on Sat03/29/23 at 1830, Until Sat03/30/23 at 1833, Maximum of 4 grams (4000 mg) per day. Given 03/30/2023 3:59 PM EST 650 mg Given 03/30/2023 4:53 AM EST 650 mg Given 03/29/2023 7:00 PM EST 650 mg Acetaminophen (Tylenol) tab 650 mg 650 mg, Oral, Q6H PRN Fever >38C(100.5F), Headache, Starting on Sat03/30/23 at 1833, Until Sat04/02/23 at 1403, Maximum of 4 grams (4000 mg) per day. cefepime in D5W (Maxipime) ivpb (THREE hour infusion) 1 g 1 g, IV Piggyback, Q6HNOW, 20 doses, First dose on Sat03/29/23 at 2330, Last dose on Sat04/03/23 at 1730, THREE HOUR INFUSION New Bag 04/01/2023 6:00 AM EST 1 g 16.67 mL /hr New Bag 03/31/2023 11:39 PM EST 1 g 16.67 mL/hr Rate Verify 03/31/2023 8:00 PM EST 0.333 g/hr 16.67 mL/hr cefepime in dextrose premix ivpb 2 g 2 g, IV Piggyback, ONCE, 1 dose, On Sat03/29/23 at 1900, Administer over 30 Minutes New Bag 03/29/2023 7:00 PM EST 2 g 100 mL/hr clonazePAM (KlonoPIN) tab 1 mg 1 mg, Oral, TID(AM/NOON/HS), First dose on Sat03/29/23 at 1415, Until Discontinued Given 04/01/2023 6:30 AM EST 1 mg Given 03/31/2023 10:21 PM EST 1 mg Given 03/31/2023 12:14 PM EST 1 mg clonazePAM (KlonoPIN) tab 1 mg 1 mg, Oral, BID (.AM/PM), First dose (after last modification) on Sat04/01/23 at 2100, Until Discontinued Given 04/02/2023 8:09 AM EST 1 mg Given 04/01/2023 8:43 PM EST 1 mg dexamethasone sodium phosphate 40 mg in NSS 50 mL ivpb 40 mg, IV Piggyback, Daily(AM), First dose (after last modification) on Sat03/30/23 at 0900, Last dose on Sat04/02/23 at 0900, For 4 doses, ACU refrigerator PROTECT FROM LIGHT Infuse over 30 minutes! Restarted 04/02/2023 8:35 AM EST 80 mg/hr 110 mL/ hr Restarted 04/02/2023 8:31 AM EST 80 mg/hr 110 mL/hr New Bag 04/02/2023 8:24 AM EST 40 mg 110 mL/hr folic acid tab 1 mg 1 mg, Oral, Daily(AM), First dose on Sat03/29/23 at 1000, Until Discontinued Given 04/01/2023 9:21 AM EST 1 mg Given 03/31/2023 8:26 AM EST 1 mg Given 03/30/2023 10:28 AM EST 1 mg Ioversol (Optiray 320) inj 125 mL 125 mL, Intravenous, ONCE, On Sat03/29/23 at 1045, For 1 dose, Radiology Medication Routing (Non-IR) Given 03/29/2023 10:02 AM EST 100 mL isolyte-S pH 7.4 infusion Intravenous, at 100 mL/hr, Plasma-LYTE 148, isolyte-S, and isolyte-S pH 7.4 are considered equivalent - including for MAR barcode scanning., CONTINUOUS, Starting on Sat03/29/23 at 1445, Until Sat03/29/23 at 1834 New Bag 03/29/2023 3:10 PM EST 100 m L/hr isolyte-S pH 7.4 infusion Intravenous, at 50 mL/hr, Plasma-LYTE 148, isolyte-S, and isolyte-S pH 7.4 are considered equivalent - including for MAR barcode scanning., CONTINUOUS, Starting on Sat03/29/23 at 1915, Until 03/30/23 at 1034 Restarted 03/30/2023 12:06 AM EST 50 m L/hr Rate Change 03/29/2023 6:55 PM EST 50 mL/hr magnesium sulfate 1 g in d5w 100mL LOCKED DOSE 1,000 mg, IV Piggyback, Q1H, 4 doses, First dose on Sat03/30/23 at 1100, Last dose on Sat03/30/23 at 1400, Administer over 60 Minutes, 4x 1000mg magnesium sulfate bags for total of 4000mg New Bag 03/30/2023 3:04 PM EST 1,000 mg 100 mL/hr New Bag 03/30/2023 2:02 PM EST 1,000 mg 100 mL/hr New Bag 03/30/2023 12:51 PM EST 1,000 mg 100 mL/hr multivitamin (Mvi) 1 Tablet 1 Tablet, Oral, DAILY NOON, First dose on Sat03/29/23 at 1200, Until Discontinued Given 04/01/2023 12:58 PM EST 1 T ablet Given 03/31/2023 12:03 PM EST 1 Tablet Given 03/30/2023 12:55 PM EST 1 Tablet Nicotine (Nicoderm CQ) 14 MG/24HR patch 1 Patch 1 Patch, Transdermal, DAILY PRN Other, Nicotine withdrawal, Starting on Sat03/29/23 at 1345, Until Sat04/02/23 at 1403, Do NOT cut the patch. Remove any Nicotine patches the patient may currently be wearing prior to applying the new patch. Place on clean hairless area. Remove for patient showers. WASTE INFO: Return packaging and waste medication in zip lock bag to pharmacy - [facility] container. NSS 0.9% 250 mL bolus infusion Intravenous, Administer entire volume within 60 minutes or less., ONCE, 1 dose, On Sat03/29/23 at 2115 New Bag 03/29/2023 8:52 PM EST 250 mL 500 mL/hr ondansetron (Zofran) inj 4 mg 4 mg, IV Push, Q6H PRN Nausea, Starting on Sat03/29/23 at 1340, Until Sat04/02/23 at 1403 Given 03/29/2023 6:16 PM EST 4 mg PHENobarbital inj 130 mg 130 mg, Intravenous, ONCE, On Sat03/29/23 at 1000, For 1 dose, Do not administer faster than 60 mg/min. Reassess CIWA-Ar in 60 minutes after administration of dose. Given 03/29/2023 10:10 AM EST 130 mg PHENobarbital inj 65 mg 65 mg, Intravenous, Q1H PRN Other, CIWA-Ar Scale 8-15, repeat CIWA-Ar in 60 minutes. Assess and record Level of consciouness and Respiratory Rate just prior to each dose of PHENobarbital and 15 minutes after each dose of PHENobarbital. Hold PHENobarbital for Respiratory Rate less than 12, somnolent/inability to arouse. Notify provider if patient receives 2 doses, Starting on Sat03/29/23 at 0923, Until Sat04/02/23 at 0711, For 2 doses, If given IV Push maximum rate is 60 mg/min. Given 03/29/2023 1:45 PM EST 65 mg PHENobarbital tab 32.4 mg 32.4 mg, PO/NG, Q8H, First dose (after last modification) on Sat04/01/23 at 2200, Last dose on Sat04/03/23 at 1400, For 6 doses, Hold PHENobarbital for Respiratory Rate less than 12, somnolent/inability to arouse Given 04/02/2023 5:31 AM EST 32.4 mg Given 04/01/2023 8:43 PM EST 32.4 mg PHENobarbital tab 64.8 mg 64.8 mg, PO/NG, Q8H, First dose on Sat03/31/23 at 1400, Last dose on Sat04/02/23 at 0600, For 6 doses, Hold PHENobarbital for Respiratory Rate less than 12, somnolent/inability to arouse Given 04/01/2023 6:30 AM EST 64.8 mg Given 03/31/2023 10:20 PM EST 64.8 mg Given 03/31/2023 2:13 PM EST 64.8 mg PHENobarbital tab 64.8 mg 64.8 mg, PO/NG, Q8H, First dose (after last modification) on Sat04/01/23 at 1400, Last dose on Sat04/01/23 at 1400, For 1 dose, Hold PHENobarbital for Respiratory Rate less than 12, somnolent/inability to arouse Given 04/01/2023 12:58 PM EST 64.8 mg PHENobarbital tab 97.2 mg 97.2 mg, PO/NG, Q8H, First dose on Sat03/29/23 at 1400, Last dose on Sat03/31/23 at 0600, For 6 doses, Hold PHENobarbital for Respiratory Rate less than 12, somnolent/inability to arouse Given 03/31/2023 5:45 AM EST 97.2 mg Given 03/30/2023 9:35 PM EST 97.2 mg Given 03/30/2023 2:04 PM EST 97.2 mg potassium chloride ER tab 40 mEq 40 mEq, Oral, BID (.AM/PM), First dose (after last modification) on Sat03/30/23 at 1115, Last dose on Sat03/31/23 at 0900, For 3 doses, This med should NOT be Crushed or Chewed Given 03/31/2023 8:25 AM EST 40 mEq Given 03/30/2023 9:35 PM EST 40 mEq Given 03/30/2023 11:35 AM EST 40 mEq sodium chloride 0.9 % flush/inj 3 mL 3 mL, IV Push, PRN Other, Line Patency, Starting on Sat03/29/23 at 1338, Until Sat04/02/23 at 1403, Do not flush if lock, PICC, or central line not in place, IV infusing or unable to flush Given 03/31/2023 11:40 PM EST 3 mL Given 03/31/2023 8:55 PM EST 3 mL Given 03/31/2023 2:46 AM EST 3 mL THIAMINE (vitamin B-1) tab 100 mg 100 mg, Oral, Daily(AM), First dose on Sat03/29/23 at 1000, Until Discontinued Given 04/01/2023 9:21 AM EST 100 mg Given 03/31/2023 8:27 AM EST 100 mg Given 03/30/2023 9:00 AM EST 100 mg documented in this encounter Active and Recently Administered Medications Times are shown in EST. Scheduled Medication Order 03/31/2023 04/01/2023 04/02/2023 cefepime in D5W (Maxipime) ivpb (THREE hour infusion) 1 g (CANCELED) 1 g, IV Piggyback, Q6HNOW, 20 doses, First dose on Sat03/29/23 at 2330, Last dose on Sat04/03/23 at 1730, THREE HOUR INFUSION 0233 (Stopped - Provider: Kristina Aviles RN)0246 (Stopped - Provider: Kristina Aviles RN)0543 (New Bag - Provider: Kristina Aviles RN)1203 (New Bag - Provider: Lisa Whitehead, RN)1731 (New Bag - Provider: Lisa Whitehead RN)1999 (Rate Verify - Provider: Kristina Aviles RN)203 (Finish Infusion - Provider: Kristina Aviles RN)2339 (New Bag - Provider: Kristina Aviles RN) 0243 (Finish Infusion - Provider: Kristina Aviles RN)0600 (New Bag - Provider: Kristina Aviles RN)0945 (Stopped - Provider: Tiff Medel RN) clonazePAM (KlonoPIN) tab 1 mg (CANCELED) 1 mg, Oral, TID(AM/NOON/HS), First dose on Sat03/29/23 at 1415, Until Discontinued 0544 (Given - Provider: Kristina Aviles RN)1214 (Given - Provider: Lisa Whitehead RN)222 (Given - Provider: Kristina Aviles RN) 0630 (Given - Provider: Kristina Aviles RN) clonazePAM (KlonoPIN) tab 1 mg 1 mg, Oral, BID (.AM/PM), First dose (after last modification) on Sat04/01/23 at 2100, Until Discontinued 2042 (Given - Provider: Robyn Reese LPN) 0809 (Given - Provider: REYMUNDO Samson Instructor) dexamethasone sodium phosphate 40 mg in NSS 50 mL ivpb (COMPLETED) 40 mg, IV Piggyback, Daily(AM), First dose (after last modification) on Sat03/30/23 at 0900, Last dose on Sat04/02/23 at 0900, For 4 doses, ACU refrigerator PROTECT FROM LIGHT Infuse over 30 minutes! 0900 (New Bag - Provider: Lisa Whitehead RN - Comment: medication obtained from and verified with Elisabet LAZCANO stevedoring supervisor) 0921 (New Bag - Provider: Tiff Medel RN)0951 (Stopped - Provider: Katty Lc, RN) 0824 (New Bag - Provider: Elisabet Espinal [facility] Instructor)0825 (Paused - Provider: Katty Platt, RN)0831 (Restarted - Provider: Katty lPatt RN)0832 (Paused - Provider: Katty Platt, RN)0835 (Restarted - Provider: Katty Platt, RN)0903 (Stopped - Provider: Katty Platt, RN)0925 (Stopped - Provider: Katty Platt RN) folic acid tab 1 mg (CANCELED) 1 mg, Oral, Daily(AM), First dose on Sat03/29/23 at 1000, Until Discontinued 0826 (Given - Provider: Lisa Whitehead RN) 0921 (Given - Provider: Tiff Medel, NENO) multivitamin (Mvi) 1 Tablet (CANCELED) 1 Tablet, Oral, DAILY NOON, First dose on Sat03/29/23 at 1200, Until Discontinued 1203 (Given - Provider: Lisa Whitehead RN) 1258 (Given - Provider: Tiff Medel RN) PHENobarbital tab 32.4 mg (CANCELED)(Linked Group 1) 32.4 mg, PO/NG, Q8H, First dose (after last modification) on Sat04/01/23 at 2200, Last dose on Sat04/03/23 at 1400, For 6 doses, Hold PHENobarbital for Respiratory Rate less than 12, somnolent/inability to arouse 2043 (Given - Provider: Robyn Reese LPN) 0531 (Given - Provider: Robyn Reese LPN) PHENobarbital tab 64.8 mg (CANCELED) 64.8 mg, PO/NG, Q8H, First dose on Sat03/31/23 at 1400, Last dose on Sat04/02/23 at 0600, For 6 doses, Hold PHENobarbital for Respiratory Rate less than 12, somnolent/inability to arouse 1413 (Given - Provider: Lisa Whitehead RN)2220 (Given - Provider: Kristina Aviles, RN) 0630 (Given - Provider: Kristina Aviles, RN) PHENobarbital tab 64.8 mg (COMPLETED)(Linked Group 1) 64.8 mg, PO/NG, Q8H, First dose (after last modification) on Sat04/01/23 at 1400, Last dose on Sat04/01/23 at 1400, For 1 dose, Hold PHENobarbital for Respiratory Rate less than 12, somnolent/inability to arouse 1258 (Given - Provider: Tiff Medel, RN) PHENobarbital tab 97.2 mg (COMPLETED) 97.2 mg, PO/NG, Q8H, First dose on Sat03/29/23 at 1400, Last dose on Sat03/31/23 at 0600, For 6 doses, Hold PHENobarbital for Respiratory Rate less than 12, somnolent/inability to arouse 0545 (Given - Provider: Kristina Aviles RN) potassium chloride ER tab 40 mEq (COMPLETED) 40 mEq, Oral, BID (.AM/PM), First dose (after last modification) on Sat03/30/23 at 1115, Last dose on Sat03/31/23 at 0900, For 3 doses, This med should NOT be Crushed or Chewed 0825 (Given - Provider: Lisa Whitehead RN - Comment: Dr. Graf at bedside and confirmed to give dose) THIAMINE (vitamin B-1) tab 100 mg (CANCELED) 100 mg, Oral, Daily(AM), First dose on Sat03/29/23 at 1000, Until Discontinued 0827 (Given - Provider: Lisa Whitehead, NENO) 0921 (Given - Provider: Tiff Medel, NENO) PRN Medication Order 03/31/2023 04/01/2023 04/02/2023 Acetaminophen (Tylenol) tab 650 mg 650 mg, Oral, Q6H PRN Fever >38C(100.5F), Headache, Starting on Sat03/30/23 at 1833, Until Sat04/02/23 at 1403, Maximum of 4 grams (4000 mg) per day. house antacid (Mi-Acid II) oral susp 15 mL 15 mL, Oral, Q4H PRN Indigestion, Starting on Sat03/29/23 at 1340, Until Sat04/02/23 at 1403, SHAKE WELL Nicotine (Nicoderm CQ) 14 MG/24HR patch 1 Patch 1 Patch, Transdermal, DAILY PRN Other, Nicotine withdrawal, Starting on Sat03/29/23 at 1345, Until Sat04/02/23 at 1403, Do NOT cut the patch. Remove any Nicotine patches the patient may currently be wearing prior to applying the new patch. Place on clean hairless area. Remove for patient showers. WASTE INFO: Return packaging and waste medication in zip lock bag to pharmacy - [facility] container. ondansetron (Zofran) inj 4 mg 4 mg, IV Push, Q6H PRN Nausea, Starting on Sat03/29/23 at 1340, Until Sat04/02/23 at 1403 sodium chloride 0.9 % flush/inj 3 mL 3 mL, IV Push, PRN Other, Line Patency, Starting on Sat03/29/23 at 1338, Until Sat04/02/23 at 1403, Do not flush if lock, PICC, or central line not in place, IV infusing or unable to flush 0051 (Given - Provider: Kristina Aviles, RN)0246 (Given - Provider: Kristina Aviles, RN)2054 (Given - Provider: Kristina Aviles, RN)2340 (Given - Provider: Kristina Aviles, RN) Linked Groups Order Group 1: PHENobarbital tab 64.8 mg (COMPLETED)Jump to med 64.8 mg, PO/NG, Q8H, First dose (after last modification) on Sat04/01/23 at 1400, Last dose on Sat04/01/23 at 1400, For 1 dose, Hold PHENobarbital for Respiratory Rate less than 12, somnolent/inability to arouse Followed by PHENobarbital tab 32.4 mg (CANCELED)Jump to med 32.4 mg, PO/NG, Q8H, First dose (after last modification) on Sat04/01/23 at 2200, Last dose on Sat04/03/23 at 1400, For 6 doses, Hold PHENobarbital for Respiratory Rate less than 12, somnolent/inability to arouse documented in this encounter Additional Health Concerns [...] Advance Directives occurred with: Patient Care Teams Yoga Coordinator Relationship Specialty Start Date End Date Cory Ross PA-C [address] [place] [id number] PCP - General Physician Government Property Inspector 10/27/22 documented as of this encounter
--- OUTSIDE RECORDS SUMMARY | 2023-06-14 21:44 | External Medical Summary ---
Author Name Unknown Address Unknown Organization K1G:LABORATORY [facility] - [facility] [place] [address] Laboratory Report Ordering Provider Test Date Status ALANMARIAM 03/30/2023 06:30:00 Final Observation Date Value Abnormality Reference (Units ) Status Albumin 03/30/2023 06:30:00 3.8 3.8-5.0 (g/dL) Final AST (Aspartate aminotransferase) 03/30/2023 06:30:00 397 Above high normal 10-50 (U/L) Final Alk Phos 03/30/2023 06:30:00 88 35-130 (U/L) Final ALT (Alanine aminotransferase) 03/30/2023 06:30:00 200 Above high normal 10-50 (U/L) Final Bilirubin, Total 03/30/2023 06:30:00 1.7 Above high normal <=1.2 (mg/dL) Final Bilirubin, Direct 03/30/2023 06:30:00 0.9 Above high normal 0.0-0.3 (mg/dL) Final Protein 03/30/2023 06:30:00 7.3 6.0-8.3 (g/dL) Final Performing Location LABORATORY [facility] - [address] [facility] [place] [address]
--- OUTSIDE RECORDS SUMMARY | 2023-06-14 21:44 | External Medical Summary ---
Author Name Unknown Address Unknown Organization K1G:LABORATORY [facility] - [facility] [place] [address] Laboratory Report Ordering Provider Test Date Status MARIAM PHILLIPS 04/01/2023 05:41:00 Final Observation Date Value Abnormality Reference (Units ) Status BUN 04/01/2023 05:41:00 11 6-20 (mg/dL) Final Creatinine 04/01/2023 05:41:00 0.5 Below low normal 0.6-1.2 (mg/dL) Final Glomerular filtration rate/1.73 sq M.predicted [Volume Rate/Area] in Serum, Plasma or Blood by Creatinine-based formula (CKD-EPI) 04/01/2023 05:41:00 >90 >=60 (mL/min) Final eGFR is calculated based on the CKD-EPI 2020 equation SODIUM 04/01/2023 05:41:00 134 Below low normal 135 -146 (mmol/L) Final Potassium 04/01/2023 05:41:00 4.1 3.5-5.1 (m mol/L) Final Cl 04/01/2023 05:41:00 99 98-107 (mm ol/L) Final CO2 04/01/2023 05:41:00 20 Below low normal 22- 32 (mmol/L) Final Anion gap 04/01/2023 05:41:00 15 7-15 (mmol /L) Final Glucose 04/01/2023 05:41:00 113 70-120 (mg /dL) Final Calcium 04/01/2023 05:41:00 9.4 8.4-10.2 ( mg/dL) Final Performing Location LABORATORY [facility] - [address] [facility] [place] [address]
--- OUTSIDE RECORDS SUMMARY | 2023-06-14 21:44 | External Medical Summary ---
Author Name Unknown Address Unknown Organization K1G:LABORATORY [facility] - [address] [facility] [address] Laboratory Report Ordering Provider Test Date Status MARIAM PHILLIPS 03/30/2023 06:30:00 Final Observation Date Value Abnormality Reference (Units ) Status SYNC LEUKOCYTES IN BLOOD BY AUTOMATED COUNT 03/30/2023 06:30:00 1.73 Below low normal 4.00-10.80 (K/uL) Final Segs 03/30/2023 06:30:00 44.6 40.0-75.0 (%) Final Lymphs % 03/30/2023 06:30:00 46.2 Above high normal 18.0-42.0 (%) Final Monos 03/30/2023 06:30:00 7.5 1.0-11.0 (%) Final Eosinophils 03/30/2023 06:30:00 1.7 0.0-6.0 (%) Final Basos 03/30/2023 06:30:00 0.0 0.0-2.0 (%) Final Absolute Segs 03/30/2023 06:30:00 0.77 Below low normal 1.80-7.70 (K/uL) Final Lymphs, absolute 03/30/2023 06:30:00 0.80 Below low normal 1.00-4.80 (K/ul) Final Monos, Abs 03/30/2023 06:30:00 0.13 0.00-1.10 (K/uL) Final Eos, Abs 03/30/2023 06:30:00 0.03 0.00-0.70 (K/uL) Final Basos, Abs 03/30/2023 06:30:00 0.00 0.00-0.20 (K/uL) Final Performing Location LABORATORY [facility] - [address] [facility] [address]
--- OUTSIDE RECORDS SUMMARY | 2023-06-14 21:44 | External Medical Summary ---
Author Name Unknown Address Unknown Organization K1G:LABORATORY [facility] - [address] [facility] [address] Laboratory Report Ordering Provider Test Date Status MARIAM PHILLIPS 04/01/2023 05:41:00 Final Observation Date Value Abnormality Reference (Units ) Status Neutrophils/100 leukocytes in Blood by Manual count 04/01/2023 05:41:00 73.0 40.0-75.0 (%) Final Lymphocytes/100 leukocytes in Blood by Manual count 04/01/2023 05:41:00 19.0 18.0-42.0 (%) Final Monocytes/100 leukocytes in Blood by Manual count 04/01/2023 05:41:00 8.0 1.0-11.0 (%) Final Eosinophils/100 leukocytes in Blood by Manual count 04/01/2023 05:41:00 0.0 0.0-6.0 (%) Final Basophils/100 leukocytes in Blood by Manual count 04/01/2023 05:41:00 0.0 0.0-2.0 (%) Final Neutrophils [#/volume] in Blood by Manual count 04/01/2023 05:41:00 3.76 1.80-7.70 (K/uL) Final Lymphocytes [#/volume] in Blood by Manual count 04/01/2023 05:41:00 0.98 Below low normal 1.00-4.80 (K/uL) Final Monocytes [#/volume] in Blood by Manual count 04/01/2023 05:41:00 0.41 0.00-1.10 (K/uL) Final Eosinophils [#/volume] in Blood by Manual count 04/01/2023 05:41:00 0.00 0.00-0.70 (K/uL) Final Basophils [#/volume] in Blood by Manual count 04/01/2023 05:41:00 0.00 0.00-0.20 (K/uL) Final Nucleated erythrocytes/100 leukocytes [Ratio] in Blood by Automated count 04/01/2023 05:41:00 Final Performing Location LABORATORY [facility] - [address] [facility] [address]
--- OUTSIDE RECORDS SUMMARY | 2023-06-14 21:44 | External Medical Summary | Summary of Care ---
Author Name Unknown Organization [facility] Address [address] [place] [facility] [place] [address] Phone [phone] Care Team Providers Care Grid Operator Name Role Phone Cory Ross PA-C Primary Care Provider + [phone] Reason for Visit * Reason Onset Date Comments Hospital Follow-Up 04/03/2023 [facility] Encounter Details Date Type Department Care Team ([facility] st Contact Info) Description 04/03/[address] [phone] Madelaine Garcia, RN Hospital Follow-Up ([facility]) Allergies No known active allergiesdocumented as of this encounter (statuses as of 04/04/2023) Medications Medication Sig Dispensed Refills Start Date End Date Status Acetaminophen 500 MG Oral Tablet (Tylenol Extra Strength) Take 1 Tablet by mouth every 6 hours as needed. 0 Active clonazePAM 1 MG Oral Tablet (KlonoPIN) Take 1 during the day as needed for anxiety. Take 1 tab at bedtime 40 Tablet 0 04/02/2023 Active documented as of this encounter (statuses as of 04/04/2023) Active Problems Problem Noted Date Diagnosed Date [...] as of this encounter (statuses as of 04/04/2023) Resolved Problems Problem Noted Date Diagnosed Date Resolved Date Alcohol withdrawal syndrome with complication 03/30/1904/02/2023 Neutropenic fever 03/30/2023 04/02/2023 Acute alcoholic intoxication with complication 03/29/2023 03/30/2023 Leucopenia 03/29/2023 04/02/2023 Drug-induced liver injury 03/29/2023 Acute hyperactive alcohol withdrawal delirium 04/05/1903/30/2023 Compression fracture of L1 lumbar vertebra 08/09/2011 03/29/2023 documented as of this encounter (statuses as of 04/04/2023) Immunizations Name Administration Dates Next Due Pneumococcal [...] encounter Miscellaneous Notes * Telephone Encounter - Madelaine Garcia RN - 04/04/2023 1:56 PM EST Transitions of Care Note Reason for Referral:Recent Admission Phone visit for follow up: [facility]A Admitted to: [facility], Date: 03/29/2023 Discharged to: Home, Date: 04/02/2023 Diagnosis driving hospitalization: Alcohol withdrawal syndrome with complication Source/Contact: Patient SUBJECTIVE Consent: Verbal consent for review of hospital discharge: Yes REVIEW OF SYSTEMS Patient/Other Reports: Current patient/caregiver problems or concerns: Patient states that he is doing well. States that he slept well last night. Patient saw MAT clinic yesterday and states that he feels like that will help him with managing anxiety.Patient was prescribed Ativan at that visit but has not picked it up yet. Patient has not had any alcohol since d/c from hospital. CV: Denies problems Pulmonary: Denies problems Chills/Sweats/Fever:Denies chills/sweats Denies fever Appetite:Denies problems such as nausea, vomiting, burning, decreased appetite Current diet: Regular, states that he is eating well Bowel: denies problems Bladder: denies problems Wound (If applicable): N/A Pain:Denies Sleep:patient states that not being able to sleep has been his reason for drinking alcohol. Patientstates that he slept well last night. FUNCTIONAL STATUS: ADL'S: Needs Assistance With:N/A as pt is independent IADL'S: Needs Assistance With:N/A as pt is independent Cognitive and Mental Health: denies problems, alert and oriented x 3, and able to communicate, understand instructions, process information. MEDICATION RECONCILIATION Medications: Discharge med list reviewed with patient or caregiver Reviewed and updated all prescription and OTC medications in Epic New medication(s) filled since hospitalization- Klonopin Discontinued medication(s) since hospitalization- Abilify, Gabapentin Reports all medications taken as prescribed. Denies side effects Patient prescribed Ativan at MAT appointment yesterday. Patient states that he is planning to pick the prescription up today. Patient educated on not taking Klonopin and Ativan. Patient encouraged tosafely dispose of Klonopin. ASSESSMENT Medication Risk Assessment: Taking sedatives/hypnotics/narcotic analgesics and increased fall risk Patient prescribed both Klonopin and Ativan Did patient fail outpatient treatment? No Discharge instructions available for review? Yes PLAN Symptom Monitoring Interventions:Member/caregiver education - signs and symptoms to contact PrimaryCare (DO NOT DELETE-Three asif symptoms patient is to report to PCP) 1. Fever/chills 2. Bleeding gums or bloody nose 3. Abdominal pain Lithographer ApprenticeDisplay Director of Care interventions/Action Plan: Medication reconciliation and 5 - 7 day follow-up with PCP in place - Date: 04/05/2023 Educated on role of KAILA completed with patient/caregiver. Educated patient/caregiver on patient right to have input on KAILA plan of care. Verification of Home Health/DME if indicated: NO N/A Identified Care Gaps: Yes Care Gaps closed this call: Appointment made or confirmed, Medication adherence, Medication monitoring, Medication optimization, Plan of care optimization, Post discharge appointment, Safety and selfcare issues addressed, and Transition of Care follow-up communication Re-evaluation of Plan of Care and progress towards goals achievement: Patient education this visit: Verbal, see above Plan to follow-up as previously scheduled, instructed to call Primary Care Provider with change in symptoms or as needed before next follow-up, discharge needs met, verbalizes understanding and agrees with plan. Madelaine Garcia RN * Telephone Encounter - Madelaine Garcia RN - 04/03/2023 10:48 AM EST Transitions of Care Note Reason for Referral:Recent Admission Phone visit for follow up: [facility]AILA Admitted to: [facility], Date: 03/29/2023 Discharged to: Home, Date: 04/02/2023 Diagnosis driving hospitalization: Alcohol withdrawal syndrome with complication Attempted to call patient for KAILA. No answer. Message left with reason for call and call back number. Will attempt to call again today or tomorrow. Madelaine Garcia RN documented in this encounter Plan of Treatment Upcoming Encounters Date Type Department Care Team (Late st Contact Info) Description 04/05/2023 3:40 PM EST Office Visit [facility] [address] [place] [phone] Tami Upton MD [address] [place] [phone] 04/11/2023 9:20 AM EST Telemedicine Hepatology, [address] [address] Leighann Carballo MD [facility] [address] 04/22/2023 3:00 PM EST Office Visit Hematology Oncology [facility], [address] [phone] Gavin Zhang MD [facility] [address] [place], [place] [id number] Health Maintenance Due Date Last Done Comments [...] Advance Directives occurred with: Patient Care Teams Grid Operator Relationship Specialty Start Date End Date Cory Ross PA-C [address] [place], [place] [address] [phone] PCP - General Physician Specialty Sales Consultant 10/27/22 documented as of this encounter
--- OUTSIDE RECORDS SUMMARY | 2023-06-14 21:44 | External Medical Summary ---
Author Name Unknown Address Unknown Organization K1G:LABORATORY [facility] - [address] [place] [address] Laboratory Report Ordering Provider Test Date Status MARIAM PHILLIPS 03/30/2023 06:30:00 Final Observation Date Value Abnormality Reference (Units ) Status Magnesium 03/30/2023 06:30:00 1.4 Below low normal 1.5 -2.6 (mg/dL) Final Performing Location LABORATORY [facility] - [address] [facility] [address]
--- OUTSIDE RECORDS SUMMARY | 2023-06-14 21:44 | External Medical Summary ---
Author Name Unknown Address Unknown Organization : Laboratory Report Ordering Provider Test Date Status MARIAM PHILLIPS 03/30/2023 06:30:00 Final Observation Date Value Abnormality Reference (Units ) Status Performing Location
--- OUTSIDE RECORDS SUMMARY | 2023-06-14 21:44 | External Medical Summary ---
Author Name Unknown Address Unknown Organization K1G:LABORATORY [facility] - [address] [facility] [address] Laboratory Report Ordering Provider Test Date Status MARIAM PHILLIPS 03/31/2023 07:39:00 Final Observation Date Value Abnormality Reference (Units ) Status SYNC LEUKOCYTES IN BLOOD BY AUTOMATED COUNT 03/31/2023 07:39:00 2.00 Below low normal 4.00-10.80 (K/uL) Final Segs 03/31/2023 07:39:00 59.5 40.0-75.0 (%) Final Lymphs % 03/31/2023 07:39:00 30.5 18.0-42.0 (%) Final Monos 03/31/2023 07:39:00 10.0 1.0-11.0 (%) Final Eosinophils 03/31/2023 07:39:00 0.0 0.0-6.0 (%) Final Basos 03/31/2023 07:39:00 0.0 0.0-2.0 (%) Final Absolute Segs 03/31/2023 07:39:00 1.19 Below low normal 1.80-7.70 (K/uL) Final Lymphs, absolute 03/31/2023 07:39:00 0.61 Below low normal 1.00-4.80 (K/ul) Final Monos, Abs 03/31/2023 07:39:00 0.20 0.00-1.10 (K/uL) Final Eos, Abs 03/31/2023 07:39:00 0.00 0.00-0.70 (K/uL) Final Basos, Abs 03/31/2023 07:39:00 0.00 0.00-0.20 (K/uL) Final Performing Location LABORATORY [facility] - [address] [facility] [place] [address]
--- OUTSIDE RECORDS SUMMARY | 2023-06-14 21:44 | External Medical Summary ---
Author Name Unknown Address Unknown Organization K01:LABORATORY [place] [address] [facility] [place] [address] Laboratory Report Ordering Provider Test Date Status ANTONINO PURVIS 04/03/2023 12:37:57 Final Cutoff Concentrations:
Drug Level
Amphetamines 500 [...] Reference (Units ) Status Amphetamines, Urine screen 04/03/2023 12:37:57 Negative Negative Final Benzodiazepines, Urine screen 04/03/2023 12:37:57 Positive Abnormal Negative Final Cannabinoids, Urine screen 04/03/2023 12:37:57 Positive Abnormal Negative Final Cocaine Metabolite, Urine screen 04/03/2023 12:37:57 Negative Negative Final fentaNYL [Presence] in Urine by Screen method 04/03/2023 12:37:57 Negative Negative Final HYDROcodone [Presence] in Urine by Screen method 04/03/2023 12:37:57 Negative Negative Final 1-Cysbaphesd-3,5-Dimeth yl-3,3-Diphenylpyrrolid ine (EDDP) [Presence] in Urine 04/03/2023 12:37:57 Negative Negative Final Opiates, Urine screen 04/03/2023 12:37:57 Negative Negative Final oxyCODONE [Presence] in Urine by Screen method 04/03/2023 12:37:57 Negative Negative Final Performing Location LABORATORY [facility] - [address] [facility] [address]
--- OUTSIDE RECORDS SUMMARY | 2023-06-14 21:44 | External Medical Summary ---
Author Name Unknown Address Unknown Organization K1G:LABORATORY [facility] - [facility] [address] [facility] [address] Laboratory Report Ordering Provider Test Date Status MARIAM PHILLIPS 03/30/2023 06:30:00 Final Observation Date Value Abnormality Reference (Units ) Status WBC, Total 03/30/2023 06:30:00 1.73 Below low normal 4.00-10.80 (K/uL) Final RBC 03/30/2023 06:30:00 4.25 4.50-5.25 (M/uL) Final Hemoglobin 03/30/2023 06:30:00 13.1 Below low normal 14.0-16.8 (g/dL) Final HCT 03/30/2023 06:30:00 38.4 Below low normal 40.0-48.4 (%) Final MCV 03/30/2023 06:30:00 90.4 82.0-99.5 (fL) Final MCH 03/30/2023 06:30:00 30.8 27.0-34.0 (pg) Final MCHC 03/30/2023 06:30:00 34.1 32.0-36.0 (g/dL) Final RDW 03/30/2023 06:30:00 15.0 11.5-15.5 (%) Final Platelets 03/30/2023 06:30:00 18 Below lower panic limits 140-400 (K/uL) Final MPV 03/30/2023 06:30:00 11.2 6.6-11.1 (fL) Final Performing Location LABORATORY [facility] - [address] [place] [facility] [address]
--- OUTSIDE RECORDS SUMMARY | 2023-06-14 21:44 | External Medical Summary | Summary of Care ---
Author Name Unknown Organization [facility] Address [address] [facility] [place] [address] Phone [phone] Care Team Providers Care Grinding And Spraying Supervisor Name Role Phone Cory Ross PA-C Primary Care Provider + [phone] Encounter Details Date Type Department Care Team (Late st Contact Info) Description 03/30/2023 Orders Only PATIENT PORTAL DO NOT DELETE THIS DEPT USED BY KELSEY MACEDO [id number] Allergies No known active allergiesdocumented as of this encounter (statuses as of 03/30/2023) Medications Medication Sig Dispensed Refills Start Date End Date Status Acetaminophen 500 MG Oral Tablet (Tylenol Extra Strength) Take 1 Tablet by mouth every 6 hours as needed. 0 Suspended Gabapentin 100 MG Oral Capsule (Neurontin)Indica tions:Compression fracture of T12 vertebra, sequela,Compressi on fracture of L1 vertebra, sequela Take 1 Capsule by mouth in the morning and 1 Capsule at noon and 1 Capsule before bedtime. 90 Capsule 5 01/31/2023 Suspended Additional Information ARIPiprazole 10 MG Oral Tablet (Abilify)Indicati ons:Mood disorder (HCC),Other insomnia Take 1 Tablet by mouth in the morning. 30 Tablet 5 01/31/2023 Suspended Additional Information documented as of this encounter (statuses as of 03/30/2023) Active Problems Problem Noted Date Diagnosed Date Acute alcoholic intoxication with complication 0 03/29/2023 Leukopenia 03/29/2023 Thrombocytopenia due to drugs 03/29/2023 Drug-induced liver injury 03/29/2023 Alcohol induced fatty liver 03/29/2023 Lung nodule seen on imaging study 03/29/2023 Elevated liver transaminase level 03/29/2023 Generalized anxiety disorder 03/29/2023 Hepatosplenomegaly 03/28/2023 OCD (obsessive compulsive disorder) 01/31/2023 Other insomnia 01/31/2023 Medical marijuana use 01/31/2023 Cigarette smoker 11/24/2022 Acute hyperactive alcohol withdrawal delirium Compression fracture of T12 vertebra 08/09/2011 ADVANCE DIRECTIVE INFORMATION 03/08/2005 Overview: Not applicable (under age of 18) documented as of this encounter (statuses as of 03/30/2023) Resolved Problems Problem Noted Date Diagnosed Date Resolved Date Compression fracture of L1 lumbar vertebra 08/09/2011 03/29/2023 documented as of this encounter (statuses as of 03/30/2023) Immunizations Name Administration Dates Next Due Pneumococcal [...] Description 04/05/2023 3:40 PM EST Office Visit [address] [phone] Tami Upton MD [address] [place] [phone] Health Maintenance Due Date Last Done Comments [...] Inactivated Comments Full Code 03/29/2023 1:43 PM This order reflects the patients wishes and were consensually agreed upon. Question Answer Comments Discussion of Advance Directives occurred with: Patient Care Teams Grinding And Spraying Supervisor Relationship Specialty Start Date End Date Cory Ross PA-C [address] [place] [address] [place] [phone] PCP - General Physician Trailer Technician 10/27/22 documented as of this encounter
--- OUTSIDE RECORDS SUMMARY | 2023-06-14 21:44 | External Medical Summary ---
Author Name Unknown Address Unknown Organization [id number]:LABORATORY [facility] - [address] [place] [address] Laboratory Report Ordering Provider Test Date Status MARIAM PHILLIPS 04/02/2023 05:33:00 Final Observation Date Value Abnormality Reference (Units ) Status WBC, Total 04/02/2023 05:33:00 5.62 4.00-10.8 0 (K/uL) Final RBC 04/02/2023 05:33:00 4.48 4.50-5.25 (M/uL) Final Hemoglobin 04/02/2023 05:33:00 13.6 Below low normal 14 .0-16.8 (g/dL) Final HCT 04/02/2023 05:33:00 40.6 40.0-48.4 (%) Final MCV 04/02/2023 05:33:00 90.6 82.0-99.5 (fL) Final MCH 04/02/2023 05:33:00 30.4 27.0-34.0 (pg) Final MCHC 04/02/2023 05:33:00 33.5 32.0-36.0 (g/dL) Final RDW 04/02/2023 05:33:00 15.5 11.5-15.5 (%) Final Platelets 04/02/2023 05:33:00 40 Below low normal 140 -400 (K/uL) Final MPV 04/02/2023 05:33:00 12.0 6.6-11.1 ( fL) Final Performing Location LABORATORY [facility] - [address] [facility] [address]
--- OUTSIDE RECORDS SUMMARY | 2023-06-14 21:44 | External Medical Summary ---
Author Name Unknown Address Unknown Organization K1G:LABORATORY [facility] - [facility] [place] [facility] [address] Laboratory Report Ordering Provider Test Date Status MARIAM PHILLIPS 03/31/2023 07:39:00 Final Observation Date Value Abnormality Reference (Units ) Status WBC, Total 03/31/2023 07:39:00 2.00 Below low normal 4.00-10.80 (K/uL) Final RBC 03/31/2023 07:39:00 4.71 4.50-5.25 (M/uL) Final Hemoglobin 03/31/2023 07:39:00 14.3 14.0-16.8 (g/dL) Final HCT 03/31/2023 07:39:00 42.2 40.0-48.4 (%) Final MCV 03/31/2023 07:39:00 89.6 82.0-99.5 (fL) Final MCH 03/31/2023 07:39:00 30.4 27.0-34.0 (pg) Final MCHC 03/31/2023 07:39:00 33.9 32.0-36.0 (g/dL) Final RDW 03/31/2023 07:39:00 14.9 11.5-15.5 (%) Final Platelets 03/31/2023 07:39:00 20 Below lower panic limits 140-400 (K/uL) Final MPV 03/31/2023 07:39:00 12.5 6.6-11.1 (fL) Final Performing Location [facility] [address] [facility] [address]
--- OUTSIDE RECORDS SUMMARY | 2023-06-14 21:44 | External Medical Summary ---
Author Name Unknown Address Unknown Organization K1G:LABORATORY [facility] - [address] [facility] [address] Laboratory Report Ordering Provider Test Date Status MARIAM PHILLIPS 04/01/2023 05:41:00 Final Observation Date Value Abnormality Reference (Units ) Status SYNC LEUKOCYTES IN BLOOD BY AUTOMATED COUNT 04/01/2023 05:41:00 5.15 4.00-10.80 (K/uL) Final Segs 04/01/2023 05:41:00 71.5 40.0-75.0 (%) Final Lymphs % 04/01/2023 05:41:00 19.4 18.0-42.0 (%) Final Monos 04/01/2023 05:41:00 9.1 1.0-11.0 (%) Final Eosinophils 04/01/2023 05:41:00 0.0 0.0-6.0 (%) Final Basos 04/01/2023 05:41:00 0.0 0.0-2.0 (%) Final Absolute Segs 04/01/2023 05:41:00 3.55 1.80-7.70 (K/uL) Final Lymphs, absolute 04/01/2023 05:41:00 0.96 Below low normal 1.00-4.80 (K/ul) Final Monos, Abs 04/01/2023 05:41:00 0.45 0.00-1.10 (K/uL) Final Eos, Abs 04/01/2023 05:41:00 0.00 0.00-0.70 (K/uL) Final Basos, Abs 04/01/2023 05:41:00 0.00 0.00-0.20 (K/uL) Final Performing Location LABORATORY [facility] - [address] [facility] [address]
--- OUTSIDE RECORDS SUMMARY | 2023-06-14 21:45 | External Medical Summary ---
Author Name Unknown Address Unknown Organization K01:LABORATORY [facility] - [address] [place] [address] Laboratory Report Ordering Provider Test Date Status AMBER CORMIER 03/29/2023 07:42:02 Final Observation Date Value Abnormality Reference (Units ) Status Hep A IgM 03/29/2023 07:42:02 Negative Negative Final Hep B Core IgM 03/29/2023 07:42:02 Negative Negat tia Final Hep B surface Ag 03/29/2023 07:42:02 Negative Neg ative Final Hep C Ab 03/29/2023 07:42:02 Negative Negative Final Performing Location LABORATORY [facility] - [address] [place] [address]
--- OUTSIDE RECORDS SUMMARY | 2023-06-14 21:45 | External Medical Summary ---
Author Name Unknown Address Unknown Organization K1G:LABORATORY [facility] - [address] [place] [address] Laboratory Report Ordering Provider Test Date Status AMBER CORMIER 03/29/2023 07:42:02 Final Observation Date Value Abnormality Reference (Units ) Status Acetaminophen 03/29/2023 07:42:02 <5.0 Below low normal 10.0-30.0 (ug/mL) Final Performing Location LABORATORY [facility] - [address] [place] [phone]
--- OUTSIDE RECORDS SUMMARY | 2023-06-14 21:45 | External Medical Summary ---
Author Name Unknown Address Unknown Organization K1G:LABORATORY [facility] - [address] [place] [phone] Laboratory Report Ordering Provider Test Date Status MARIAM PHILLIPS 03/29/2023 14:07:16 Final Cutoff Concentrations:
D rug Level
Amphetamines 500 ng/mL
Barbiturates 300 ng/mL
Benzodiazepines 300 ng/mL
Cannabinoids 50 ng/mL
Cocaine Metabolite 300 ng/mL
Morphine / Codeine 300 ng/mL
Methadone 300 ng/mL
Oxycodone 100 ng/mL

Screening results are presumptive and can only be used for medical purposes. Confirmatory testing is available upon request. Observation Date Value Abnormality Reference (Units ) Status Amphetamines, Urine screen 03/29/2023 14:07:16 Negative Negative Final Barbiturates, Urine 03/29/2023 14:07:16 Positive Abnormal Negative Final Benzodiazepines, Urine screen 03/29/2023 14:07:16 Negative Negative Final Cannabinoids, Urine screen 03/29/2023 14:07:16 Positive Abnormal Negative Final Cocaine Metabolite, Urine screen 03/29/2023 14:07:16 Negative Negative Final Methadone [Presence] in Urine 03/29/2023 14:07:16 Negative Negative Final Opiates, Urine screen 03/29/2023 14:07:16 Negative Negative Final oxyCODONE [Presence] in Urine by Screen method 03/29/2023 14:07:16 Negative Negative Final Performing Location LABORATORY [facility] - [address] [facility] [address]
--- OUTSIDE RECORDS SUMMARY | 2023-06-14 21:45 | External Medical Summary ---
Author Name Unknown Address Unknown Organization : Laboratory Report Ordering Provider Test Date Status AMBER CORMIER 03/29/2023 13:42:00 Final Observation Date Value Abnormality Reference (Units ) Status Performing Location
--- OUTSIDE RECORDS SUMMARY | 2023-06-14 21:45 | External Medical Summary ---
Author Name Unknown Address Unknown Organization K1G:LABORATORY [facility] - [address] [facility] [address] Laboratory Report Ordering Provider Test Date Status YANA CARLSONR 03/29/2023 07:42:02 Final Observation Date Value Abnormality Reference (Units ) Status Albumin 03/29/2023 07:42:02 4.3 3.8-5.0 (g/dL) Final AST (Aspartate aminotransferase) 03/29/2023 07:42:02 560 Above high normal 10-50 (U/L) Final Alk Phos 03/29/2023 07:42:02 105 35-130 (U/L) Final ALT (Alanine aminotransferase) 03/29/2023 07:42:02 270 Above high normal 10-50 (U/L) Final Bilirubin, Total 03/29/2023 07:42:02 1.2 <=1.2 (mg/dL) Final Bilirubin, Direct 03/29/2023 07:42:02 0.7 Above high normal 0.0-0.3 (mg/dL) Final Protein 03/29/2023 07:42:02 8.3 6.0-8.3 (g/dL) Final Performing Location LABORATORY [facility] - [address] [facility] [address]
--- OUTSIDE RECORDS SUMMARY | 2023-06-14 21:45 | External Medical Summary ---
Author Name Unknown Address Unknown Organization K1G:LABORATORY [facility] - [address] [place] [address] Laboratory Report Ordering Provider Test Date Status AMBER CORMIER 03/29/2023 09:57:17 Final Observation Date Value Abnormality Reference (Units ) Status Bacteria identified in Specimen by Culture 03/29/2023 09:57:17 No growth Final Test: Culture, Blood (Site 2 )
Specimen Source: Blood, Venous
Specimen Type: Blood
Specimen Date: 03/29/2023 9:57 AM
Result Date: 04/03/2023 11:01 AM
Result Status: Final result
Resulting Lab: LABORATORY [facility]
[address] [place] [address]
[facility] [address]

CULTURE

No growth

null Performing Location LABORATORY [facility] - [address] [place] [phone]
--- OUTSIDE RECORDS SUMMARY | 2023-06-14 21:45 | External Medical Summary ---
Author Name Unknown Address Unknown Organization K01:LABORATORY [place] - [address] [facility] [address] 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 IgG-class antibodies may remain detectable for months to years following resolution of infection. Results should NOT be used to monitor or establish adequate response to therapy. Response to therapy is confirmed through resolution of clinical symptoms; additional laboratory testing should not be performed.

Test results reported to [facility]. Performing Location LABORATORY [place] - [address] [facility] [address]
--- OUTSIDE RECORDS SUMMARY | 2023-06-14 21:45 | External Medical Summary ---
Author Name Unknown Address Unknown Organization K01:LABORATORY [facility] - [address] [place] [address] Laboratory Report Ordering Provider Test Date Status AMBER CORMIER 03/29/2023 09:57:17 Final Observation Date Value Abnormality Reference (Units ) Status ABO 03/29/2023 09:57:17 A Final RH 03/29/2023 09:57:17 Positive Final Performing Location LABORATORY [facility] - [address] [place] [address]
--- OUTSIDE RECORDS SUMMARY | 2023-06-14 21:45 | External Medical Summary ---
Author Name Unknown Address Unknown Organization : Laboratory Report Ordering Provider Test Date Status ALEJO CARLSON 03/29/2023 07:42:02 Final Observation Date Value Abnormality Reference (Units ) Status Anaplasma phagocytophilum DNA [Presence] in Blood by SHANNAN with probe detection 03/29/2023 07:42:02 Not Detected Not Detected Final This test was developed and its analytical performance
characteristics have been determined by [employer] [place], [place]. It has
not been cleared or approved by the U.S. Food and Drug
Administration. This assay has been validated pursuant
to the CLIA regulations and is used for clinical
purposes.

Test Performed at:
[employer] [facility][1]
[address] [facility] [place] [address]
José Miguel Page M.D., Ph.D.,Director of Laboratories Performing Location
--- OUTSIDE RECORDS SUMMARY | 2023-06-14 21:45 | External Medical Summary ---
Author Name Unknown Address Unknown Organization K01:LABORATORY [facility] - [address] [place] [address] [place] [address] Laboratory Report Ordering Provider Test Date Status MARIAM PHILLIPS 03/29/2023 07:42:02 Final Observation Date Value Abnormality Reference (Units ) Status Hep B Core IgM 03/29/2023 07:42:02 Negative Negat tia Final Performing Location LAB[facility]ATORY [facility] - [address] [place] [address]
--- OUTSIDE RECORDS SUMMARY | 2023-06-14 21:45 | External Medical Summary | Summary of Care ---
Author Name Unknown Organization [facility] Address [address] [place] [address] Phone [phone] Care Team Providers Care Medical Insurance Coding Specialist Name Role Phone Cory Ross PA-C Primary Care Provider + [phone] Reason for Visit * Reason Comments Outpatient Testing Encounter Details Date Type Department Care Team ([facility] st Contact Info) Description 03/28/2023 2:40 PM [facility] Laboratory Laboratory Patient Service [address] [phone] [facility] [address] [place] [id number] Alcohol use disorder Allergies No known active allergiesdocumented as of this encounter (statuses as of 03/28/2023) Medications Medication Sig Dispensed Refills Start Date End Date Status Acetaminophen 500 MG Oral Tablet (Tylenol Extra Strength) Take 1 Tablet by mouth every 6 hours as needed. 0 Active Gabapentin 100 MG Oral Capsule (Neurontin)Indicatio ns:Compression fracture of T12 vertebra, sequela,Compression fracture of L1 vertebra, sequela Take 1 Capsule by mouth in the morning and 1 Capsule at noon and 1 Capsule before bedtime. 90 Capsule 5 01/31/2023 Active ARIPiprazole 10 MG Oral Tablet (Abilify)Indications :Mood disorder (HCC),Other insomnia Take 1 Tablet by mouth in the morning. 30 Tablet 5 01/31/2023 Active documented as of this encounter (statuses as of 03/28/2023) Active Problems Problem Noted Date Diagnosed Date Hepatosplenomegaly 03/28/2023 OCD (obsessive compulsive disorder) 01/31/2023 Other insomnia 01/31/2023 Medical marijuana use 01/31/2023 Cigarette smoker 11/24/2022 Compression fracture of L1 lumbar vertebra 08/08 Compression fracture of T12 vertebra 08/09/2011 ADVANCE DIRECTIVE INFORMATION 03/08/2005 Overview: Not applicable (under age of 18) documented as of this encounter (statuses as of 03/28/2023) Immunizations Name Administration Dates Next Due DTaP Dipth/Tet/Acell Pertussis (Infanrix), Peds 08/22/1993,02/19/1990,03/27/1989,1988,1988 HIB PRP-T, 4 dose (ActHib) 11/27/1989 Hepatitis B, 0-19 yrs 10/11/1998,03/21/1998,01/02 MMR - Measles/Mumps/Rubella Vaccine 08/22/1993,1 OPV - Polio Virus Vaccine (Oral) 994,02/19/1990,1988,1988 Pneumococcal Conjugate Vacci ne, 20-valent ([id number]) 01/31/2023 Seasonal Influenza, PF, 6 M & [...] drink = 0.6 oz pur e alcohol) pt drinking alot. Hunger Vital Sign Answer Date Recorded Within [...] Upcoming Encounters Date Type Department Care Team ([facility] Contact Info) Description 04/05/2023 3:40 PM EST Office Visit Family [address] [phone] Tami Upton MD [address] [place] [phone] Pending Results Name Type Priority Associated Diagnoses Date /Time CBC WITH WBC DIFFERENTIAL Lab Routine Alcohol use disorder 03/28/2023 2:45 PM EST COMPREHENSIVE METABOLIC PANEL Lab Routine Alcohol use disorder 03/28/2023 2:45 PM EST PT INR Lab Routine Alcohol use disorder 03/28/2023 2:45 PM EST CBC Lab Routine Alcohol use disorder 03/28/2023 2:45 PM EST DIFFERENTIAL, AUTOMATED Lab Routine Alcohol use disorder 03/28/2023 2:45 PM EST Health Maintenance Due Date Last Done [...] this encounter Visit Diagnoses Diagnosis Alcohol use disorder documented in this encounter Care Teams Medical Insurance Coding Specialist Relationship Specialty Start Date End Date Cory Ross PA-C [address] [place] [phone] PCP - General Physician Manager Portable 10/27/22 documented as of this encounter
--- OUTSIDE RECORDS SUMMARY | 2023-06-14 21:45 | External Medical Summary ---
Author Name Unknown Address Unknown Organization K1G:LABORATORY [facility] - [address] [facility] [address] Laboratory Report Ordering Provider Test Date Status AMBER CORMIER 03/29/2023 13:42:00 Final Observation Date Value Abnormality Reference (Units ) Status SYNC LEUKOCYTES IN BLOOD BY AUTOMATED COUNT 03/29/2023 13:42:00 1.84 Below low normal 4.00-10.80 (K/uL) Final Segs 03/29/2023 13:42:00 33.2 Below low normal 40.0-75.0 (%) Final Lymphs % 03/29/2023 13:42:00 60.3 Above high normal 18.0-42.0 (%) Final Monos 03/29/2023 13:42:00 6.0 1.0-11.0 (%) Final Eosinophils 03/29/2023 13:42:00 0.5 0.0-6.0 (%) Final Basos 03/29/2023 13:42:00 0.0 0.0-2.0 (%) Final Absolute Segs 03/29/2023 13:42:00 0.61 Below low normal 1.80-7.70 (K/uL) Final Lymphs, absolute 03/29/2023 13:42:00 1.11 1.00-4.80 (K/ul) Final Monos, Abs 03/29/2023 13:42:00 0.11 0.00-1.10 (K/uL) Final Eos, Abs 03/29/2023 13:42:00 0.01 0.00-0.70 (K/uL) Final Basos, Abs 03/29/2023 13:42:00 0.00 0.00-0.20 (K/uL) Final Performing Location LABORATORY [facility] - [address] [facility] [address]
--- OUTSIDE RECORDS SUMMARY | 2023-06-14 21:45 | External Medical Summary | Summary of Care ---
Author Name Unknown Organization [facility] Address [address] [place] [facility] [place] [address] Phone [phone] Care Team Providers Care Alcohol Still Operator Name Role Phone Cory Ross PA-C Primary Care Provider + [phone] Reason for Visit * Reason Onset Date Comments Other 03/29/2023 Thrombocytopenia , neutropenia Encounter Details Date Type Department Care Team (Late st Contact Info) Description 03/29/2023 Telephone Hematology/Oncology, [facility] [address] [place] [address] Oscar Villarreal MD [address] [place] [address] Other (Thrombocytopenia, neutropenia) Allergies No known active allergiesdocumented as of this encounter (statuses as of 03/29/2023) Medications Medication Sig Dispensed Refills Start Date [...] as of this encounter (statuses as of 03/29/2023) Active Problems Problem Noted Date Diagnosed Date [...] as of this encounter (statuses as of 03/29/2023) Resolved Problems Problem Noted Date Diagnosed Date Resolved Date Compression fracture of L1 lumbar vertebra 08/09/2011 03/29/2023 documented as of this encounter (statuses as of 03/29/2023) Immunizations Name Administration Dates Next Due DTaP Dipth/Tet/Acell Pertussis (Infanrix), Peds 08/22/1993,02/19/1990,03/27/1989,1988,1988 HIB PRP-T, 4 dose (ActHib) 11/27/1989 Hepatitis B, 0-19 yrs 10/11/1998,03/21/1998,01/02 MMR - Measles/Mumps/Rubella Vaccine 08/22/1993,1 OPV - Polio Virus Vaccine (Oral) 994,02/19/1990,1988,1988 Pneumococcal Conjugate Vacci ne, 20-valent ([id number]) 01/31/2023 Seasonal Influenza, PF, 6 M & [...] encounter Miscellaneous Notes * Telephone Encounter - Oscar Villarreal MD - 03/29/2023 5:48 PM EST Spoke to Dr. Hadley Advised transfusing platelets now (active bleeding, plt <50K, goal plt >50K) Dexamethasone 40 mg daily x 4 Check cbc with diff, retic, ldh Check pt and ptt If fever >100.4 x 2 or 101.0 in a 24 hr period get blood cultures x 2 sets and then start broad spectrum abx If catastrophic bleeding occurs, call me back Suspect street drug induced ITP/agranulocytosis Abilify induced DITP/agranulocytosis also possible, hold for now. Rec placing heme consult Dr. Villarreal [phone] cell documented in this encounter Plan of Treatment Upcoming Encounters Date Type Department Care Team (Late st Contact Info) Description 04/05/2023 3:40 PM EST Office Visit [address] [phone] Tami Upton MD [address] [place] [phone] Health Maintenance Due Date Last Done Comments [...] Not on filedocumented as of this encounter Additional Health Concerns Infection Onset [...] Advance Directives occurred with: Patient Care Teams Alcohol Still Operator Relationship Specialty Start Date End Date Cory Ross PA-C [address] [place] [address] PCP - General Physician Armhole Sewer 10/27/22 documented as of this encounter
--- OUTSIDE RECORDS SUMMARY | 2023-06-14 21:45 | External Medical Summary ---
Author Name Unknown Address Unknown Organization K1G:LABORATORY [facility] - [address] [facility] [address] Laboratory Report Ordering Provider Test Date Status ALEJO CARLSON 03/29/2023 07:42:02 Final Observation Date Value Abnormality Reference (Units ) Status Phosphate 03/29/2023 07:42:02 3.5 2.5-4.8 (m g/dL) Final Performing Location LABORATORY [facility] - [address] [facility] [address]
--- OUTSIDE RECORDS SUMMARY | 2023-06-14 21:45 | External Medical Summary ---
Author Name Unknown Address Unknown Organization K01:LABORATORY [facility] - [address] [place] [address] Laboratory Report Ordering Provider Test Date Status MARIAM PHILLIPS 03/29/2023 07:42:00 Final Observation Date Value Abnormality Reference (Units ) Status LDH 03/29/2023 07:42:00 348 Above high normal <= 250 (U/L) Final Performing Location LABORATORY [facility] - [address] [facility] [address] [place] [address]
--- OUTSIDE RECORDS SUMMARY | 2023-06-14 21:45 | External Medical Summary ---
Author Name Unknown Address Unknown Organization K1G:LABORATORY [facility] - [address] [place] [address] Laboratory Report Ordering Provider Test Date Status ALEJO CARLSON 03/29/2023 07:42:02 Final Observation Date Value Abnormality Reference (Units ) Status BUN 03/29/2023 07:42:02 8 6-20 (mg/dL) Final Creatinine 03/29/2023 07:42:02 0.4 Below low normal 0.6-1.2 (mg/dL) Final Glomerular filtration rate/1.73 sq M.predicted [Volume Rate/Area] in Serum, Plasma or Blood by Creatinine-based formula (CKD-EPI) 03/29/2023 07:42:02 >90 >=60 (mL/min) Final eGFR is calculated based on the CKD-EPI 2020 equation SODIUM 03/29/2023 07:42:02 136 135-146 (m mol/L) Final Potassium 03/29/2023 07:42:02 3.5 3.5-5.1 (m mol/L) Final Cl 03/29/2023 07:42:02 98 98-107 (mm ol/L) Final CO2 03/29/2023 07:42:02 21 Below low normal 22- 32 (mmol/L) Final Anion gap 03/29/2023 07:42:02 17 Above high normal 7- 15 (mmol/L) Final Glucose 03/29/2023 07:42:02 99 70-120 (mg /dL) Final Albumin 03/29/2023 07:42:02 4.3 3.8-5.0 (g /dL) Final AST (Aspartate aminotransferase) 03/29/2023 07:42:02 560 Above high normal 10-50 (U/L) Final Alk Phos 03/29/2023 07:42:02 105 35-130 (U/ L) Final Bilirubin, Total 03/29/2023 07:42:02 1.2 <=1 .2 (mg/dL) Final Calcium 03/29/2023 07:42:02 9.0 8.4-10.2 ( mg/dL) Final Protein 03/29/2023 07:42:02 8.3 6.0-8.3 (g /dL) Final ALT (Alanine aminotransferase) 03/29/2023 07:42:02 270 Above high normal 10-50 (U/L) Final Performing Location LABORATORY [facility] - [address] [place] [phone]
--- OUTSIDE RECORDS SUMMARY | 2023-06-14 21:45 | External Medical Summary ---
Author Name Unknown Address Unknown Organization K1G:LABORATORY [facility] - [address] [facility] [address] Laboratory Report Ordering Provider Test Date Status ALEJO CARLSON 03/29/2023 07:42:02 Final Observation Date Value Abnormality Reference (Units ) Status Magnesium 03/29/2023 07:42:02 1.7 1.5-2.6 (m g/dL) Final Performing Location LABORATORY [facility] - [address] [facility] [address]
--- OUTSIDE RECORDS SUMMARY | 2023-06-14 21:45 | External Medical Summary ---
Author Name Unknown Address Unknown Organization K1G:LABORATORY [facility] - [address] [facility] [address] Laboratory Report Ordering Provider Test Date Status ALEJO CARLSON 03/29/2023 07:42:02 Final Warfarin Therapy
INR: 2 .0-3.0 conventional anticoagulation
INR: 2.5- 3.5 high intensity anticoagulation Observation Date Value Abnormality Reference (Units ) Status PT 03/29/2023 07:42:02 15.1 11.6-15.2 (seconds) Final INR 03/29/2023 07:42:02 1.2 0.8-1.2 Final Performing Location LABORATORY [facility] - [address] [place] [address]
--- OUTSIDE RECORDS SUMMARY | 2023-06-14 21:45 | External Medical Summary ---
Author Name Unknown Address Unknown Organization K1G:LABORATORY [facility] - [address] [facility] [address] Laboratory Report Ordering Provider Test Date Status AMBER CORMIER 03/29/2023 13:42:00 Final Observation Date Value Abnormality Reference (Units ) Status WBC, Total 03/29/2023 13:42:00 1.84 Below low normal 4.00-10.80 (K/uL) Final RBC 03/29/2023 13:42:00 4.75 4.50-5.25 (M/uL) Final Hemoglobin 03/29/2023 13:42:00 14.4 14.0-16.8 (g/dL) Final HCT 03/29/2023 13:42:00 42.9 40.0-48.4 (%) Final MCV 03/29/2023 13:42:00 90.3 82.0-99.5 (fL) Final MCH 03/29/2023 13:42:00 30.3 27.0-34.0 (pg) Final MCHC 03/29/2023 13:42:00 33.6 32.0-36.0 (g/dL) Final RDW 03/29/2023 13:42:00 15.5 11.5-15.5 (%) Final Platelets 03/29/2023 13:42:00 <10 Below lower panic limits 140-400 (K/uL) Final MPV 03/29/2023 13:42:00 Final No result - abnormal platele t distribution. Performing Location LABORATORY [facility] - [address] [facility] [address]
--- OUTSIDE RECORDS SUMMARY | 2023-06-14 21:45 | External Medical Summary ---
Author Name Unknown Address Unknown Organization K01:LABORATORY [place] [address] [address] Laboratory Report Ordering Provider Test Date Status AMBER CORMIER 03/29/2023 07:42:00 Final Less than 0.5 ng/mL: Low ris k for progression to sepsis. Review patients condition for localized infections.

0.5 to 2.0 ng/mL: Intermediate risk for progresion to sepsis. Review underlying conditions. Recommend repeat PCT after 6 hours has elapsed.

Greater than 2.0 ng/mL: high risk for progression to sepsis unless other causes are known. Observation Date Value Abnormality Reference (Units ) Status Procalcitonin [Mass/volume] in Serum or Plasma by Immunoassay 03/29/2023 07:42:00 0.14 Above high normal <0.10 (ng/mL) Final Performing Location LABORATORY [facility] [address] [facility] [place] [address]
--- OUTSIDE RECORDS SUMMARY | 2023-06-14 21:45 | External Medical Summary ---
Author Name Unknown Address Unknown Organization K1G:LABORATORY [facility] - [address] [facility] [address] Laboratory Report Ordering Provider Test Date Status ALEJO CARLSON 03/29/2023 07:42:02 Final Observation Date Value Abnormality Reference (Units ) Status WBC, Total 03/29/2023 07:42:02 2.31 Below low normal 4.00-10.80 (K/uL) Final RBC 03/29/2023 07:42:02 4.86 4.50-5.25 (M/uL) Final Hemoglobin 03/29/2023 07:42:02 14.8 14.0-16.8 (g/dL) Final HCT 03/29/2023 07:42:02 43.9 40.0-48.4 (%) Final MCV 03/29/2023 07:42:02 90.3 82.0-99.5 (fL) Final MCH 03/29/2023 07:42:02 30.5 27.0-34.0 (pg) Final MCHC 03/29/2023 07:42:02 33.7 32.0-36.0 (g/dL) Final RDW 03/29/2023 07:42:02 15.5 11.5-15.5 (%) Final Platelets 03/29/2023 07:42:02 13 Below lower panic limits 140-400 (K/uL) Final MPV 03/29/2023 07:42:02 Final No result - abnormal platele t distribution. Performing Location LABORATORY [facility] - [address] [facility] [address]
--- OUTSIDE RECORDS SUMMARY | 2023-06-14 21:45 | External Medical Summary | Summary of Care ---
Author Name Unknown Organization [facility] Address [address] [facility] [place] [address] Phone [phone] Care Team Providers Care Fractionation Supervisor Name Role Phone Cory Ross PA-C Primary Care Provider + [phone] Reason for Visit * Reason Onset Date Comments Other 03/29/2023 Thrombocytopenia , neutropenia Encounter Details Date Type Department Care Team (Late st Contact Info) Description 03/29/2023 Telephone Hematology/Oncology, [facility] [address] [place] [address] Oscar Villarreal MD [address] [place] [address] Other (Thrombocytopenia, neutropenia) Allergies No [...] (Oral) 994,02/19/1990,1988,1988 Pneumococcal Conjugate Vacci ne, 20-valent ([id number]) 01/31/2023 Seasonal Influenza, PF, 6 M & [...] now. Rec placing heme consult Dr. Villarreal [phone] cell documented in this encounter Plan of Treatment Upcoming Encounters Date Type Department Care Team (Late st Contact Info) Description 04/05/2023 3:40 PM EST Office Visit [address] [phone] Tami Upton MD [address] [place] [phone] Health Maintenance Due Date Last Done Comments [...] Advance Directives occurred with: Patient Care Teams Fractionation Supervisor Relationship Specialty Start Date End Date Cory Ross PA-C [address] [place] [address] PCP - General Physician Trolley Operator 10/27/22 documented as of this encounter
--- OUTSIDE RECORDS SUMMARY | 2023-06-14 21:45 | External Medical Summary ---
Author Name Unknown Address Unknown Organization K1G:LABORATORY [facility] - [address] [place] [address] Laboratory Report Ordering Provider Test Date Status MARIAM PHILLIPS 03/29/2023 07:42:02 Final Observation Date Value Abnormality Reference (Units ) Status CK 03/29/2023 07:42:02 138 39-308 (U/ L) Final Performing Location LABORATORY [facility] - [address] [facility] [address]
--- OUTSIDE RECORDS SUMMARY | 2023-06-14 21:45 | External Medical Summary ---
Author Name Unknown Address Unknown Organization K01:LABORATORY [facility] - [address] [place] [address] [place] [address] Laboratory Report Ordering Provider Test Date Status ALAN,MARIAM 03/29/2023 07:42:02 Final Observation Date Value Abnormality Reference (Units ) Status Hepatitis B virus core Ab [Presence] in Serum 03/29/2023 07:42:02 Negative Negative Final Performing Location LABORATORY C - [address] [place] [address]
--- OUTSIDE RECORDS SUMMARY | 2023-06-14 21:45 | External Medical Summary ---
Author Name Unknown Address Unknown Organization K1G:LABORATORY [facility] - [address] [facility] [address] Laboratory Report Ordering Provider Test Date Status AMBER CORMIER 03/29/2023 07:42:02 Final Observation Date Value Abnormality Reference (Units ) Status Schistocytes 03/29/2023 07:42:02 None Seen None Se en Final Performing Location LABORATORY [facility] - [address] [facility] [address]
--- OUTSIDE RECORDS SUMMARY | 2023-06-14 21:45 | External Medical Summary ---
Author Name Unknown Address Unknown Organization K01:LABORATORY [facility] - [address] [place] [address] Laboratory Report Ordering Provider Test Date Status AMBER CORMIER 03/29/2023 14:06:51 Final Observation Date Value Abnormality Reference (Units) Status Bacteria identified in Specimen by Culture 03/29/2023 14:06:51 No significant growth Final Test: Culture, Urine, Quant itative
Specimen Source: Urine, Clean Catch
Specimen Type: Urine
Specimen Date: 03/29/2023 2:06 PM
Result Date: 03/30/2023 12:41 PM
Result Status: Final result
Resulting Lab: LABORATORY [facility]
[address]
[place] [address]

CULTURE

No significant growth

null Performing Location LABORATORY [facility] - [address] [place] [id number]
--- OUTSIDE RECORDS SUMMARY | 2023-06-14 21:45 | External Medical Summary ---
Author Name Unknown Address Unknown Organization K01:LABORATORY C - [address] [place] [address] Laboratory Report Ordering Provider Test Date Status ABMER CORMIER 03/29/2023 13:42:00 Final Observation Date Value Abnormality Reference (Units) Status Pathologist review of results 03/29/2023 13:42:00 Leukopenia with normal morphology of leukocytes. Final Pathologist review of results 03/29/2023 13:42:00 Thrombocytopenia possibly due to peripheral sequestration/or consumption and/or destruction. Final Pathologist review of results 03/29/2023 13:42:00 Reviewed by pathologist. Final Performing Location LABORATORY [facility] - [address] [place] [address]
--- OUTSIDE RECORDS SUMMARY | 2023-06-14 21:45 | External Medical Summary | Summary of Care ---
Author Name Unknown Organization [facility] Address [address] [place] [address] Phone [phone] Care Team Providers Care Wood Carver Name Role Phone Cory Ross PA-C Primary Care Provider + [phone] Reason for Referral * Evaluate & Treat - Unlimited Visits (Within 3 days (urgent)) - Pending Review Specialty Diagnoses / Procedures Referred By Danielle luong Referred To Contact Addiction Medicine Diagnoses Alcohol use disorder Tami Upton MD [address] [place] [phone] aRfael Ladd III, MD [address] [place] [id number] Referral ID Status Reason Start Date Expiration Date Visits Requested Visits Authorized [id number] Pending Review Specialty Services Required 03/28/[phone] Question Answer Referral Priority Within 3 days (urgent) Where should this appointment be scheduled? [facility] Was the patient hospitalized for their addiction in the past in the past 6 months? No Has the patient overdosed on any substance in the past? No Reason for Referral: Alcohol Reason for Visit * Reason Comments Follow Up Encounter Details Date Type Department Care Team ([facility] Contact Info) Description 03/28/2023 2:00 PM EST Office Visit [address] [phone] Tami Upton MD [address] [place] [phone] Alcohol use disorder*; Alcohol withdrawal syndrome with complication (HCC); Mucosal bleeding; Hepatosplenomegaly Allergies No known active allergiesdocumented as of [...] 03/28/2023) Immunizations Name Administration Dates Next Due Pneumococcal [...] Sign Reading Time Taken Comments Blood Pressure 168/112 03/28/2023 1:51 PM EST Pulse 105 03/28/2023 1:51 PM EST Temperature 37.6 C (99.6 F) 03/28/2023 1:51 PM ES T Respiratory Rate 20 03/28/2023 1:51 PM EST Oxygen Saturation 97% 03/28/2023 1:51 PM EST Inhaled Oxygen Concentration - - Weight 88.7 kg (195 lb 9.6 oz) 03/28/2023 1:51 P M EST Height - - Body Mass Index 29.74 10/27/2022 9:38 AM EDT documented in this encounter Progress Notes * Tami Upton MD - 03/28/2023 2:01 PM EST Images from the original note were not included. History of Present Illness Esdras Storey is a 32 year old male with alcohol use disorder, prior T12 and L1 compression fractures, and reported OCD and insomnia that presents for Follow Up Presents today with main concern of severe alcohol use and likely active withdrawal. He recently relapsed back into alcohol use since last visit. He says he has had 18 L of vodka in the past 15 days.Decided with his boyfriend last night it is time to start to cut back. Since 8 PM last night, he has been taking one shot of vodka every 2 hours to prevent overt withdrawal with the intent to slowly titrate down. Says he has withdrawn 28 times in the last 2 years or so, so he knows how to manage athome. Does not want to go to the emergency department or inpatient rehab. Says insurance doesn't cover outpatient rehab. He is interested in seeking addiction services. Has tried AA in the past, but does not like the rastafari component. He is fidgety and anxious, but denies sweats, tremors, nausea, vomiting. He is oriented. No delusions, hallucinations, seizures. Physical Exam Vitals: 03/28/23 1351 Temp: 37.6 C (99.6 F) Pulse: 105 Resp: 20 SpO2: 97% BP: (!) 168/112 Physical Exam Vitals and nursing note reviewed. Constitutional: General: He is not in acute distress. Appearance: He is not toxic-appearing or diaphoretic. HENT: Head: Normocephalic and atraumatic. Nose: Nose normal. Eyes: Conjunctiva/sclera: Conjunctivae normal. Cardiovascular: Rate and Rhythm: Tachycardia present. Pulmonary: Effort: Pulmonary effort is normal. No respiratory distress. Musculoskeletal: General: No signs of injury. Neurological: General: No focal deficit present. Mental Status: He is alert and oriented to person, place, and time. Psychiatric: Attention and Perception: Attention normal. He does not perceive auditory or visual hallucinations. Mood and Affect: Mood is anxious. Speech: Speech normal. Behavior: Behavior is hyperactive (Fidgeting). Behavior is not agitated. Behavior is cooperative. Thought Content: Thought content is not paranoid or delusional. I have reviewed the following results: CT A/P, CMP, and CBC Assessment and Plan Alcohol use disorder Alcohol withdrawal syndrome with complication (HCC) Vitals concerning for withdrawal, though symptom score relatively low without tremor, diaphoresis, vomiting, disorientation. Discussed with Dr. Ladd. Referred urgently to addiction clinic - scheduled tomorrow morning. Prefers to manage at home instead of inpatient, rehab, detox. Reviewed symptoms or worsening withdrawal to go to ED. - CBC WITH WBC DIFFERENTIAL; Future - COMPREHENSIVE METABOLIC PANEL; Future - PT INR; Future - ALCOHOL/CHEMICAL DEPENDENCY REFERRAL OP Mucosal bleeding Concerning for thrombocytopenia or coagulopathy, which he is certainly at risk for with alcohol useand potential hepatic injury. Labs as below. - CBC WITH WBC DIFFERENTIAL; Future - COMPREHENSIVE METABOLIC PANEL; Future - PT INR; Future Hepatosplenomegaly Noted on prior CT A/P in Care Everywhere with hepatosteatosis.At risk for liver injury and cirrhosis. Labs as above. Wrap-Up Follow Up: Return in about 1 week (around 04/04/2023) for Return with Physician. | For: Return with Physician Time: I spent a total of 40-54 minutes (exact time 43 mins) on the date of service in preparation, delivery, and documentation of the care provided to Esdras Storey excluding any time spent in the performance of separately billed services. documented in this encounter Nursing Notes * Paoal Cifuentes MED ASSIST - 03/28/2023 1:52 PM EST The patient has been properly identified by confirmation of name and date of . Chief Complaint Patient presents with Follow Up documented in this encounter Plan of Treatment Upcoming Encounters Date Type Department Care Team (Late st Contact Info) Description 04/05/2023 3:40 PM EST Office Visit [address] [phone] Tami Upton MD [address] [place] [phone] Pending Results Name Type Priority Associated Diagnoses Date /Time CBC WITH WBC DIFFERENTIAL Lab Routine Alcohol use disorder 03/28/2023 2:45 PM EST COMPREHENSIVE METABOLIC PANEL Lab Routine Alcohol use disorder 03/28/2023 2:45 PM EST PT INR Lab Routine Alcohol use disorder 03/28/2023 2:45 PM EST Scheduled Orders Name Type Priority Associated Diagnoses Orde r Schedule CBC WITH WBC DIFFERENTIAL Lab Routine Alcohol use disorder Mucosal bleeding Expected: 03/28/2023 (Approximate), Expires: 03/28/2024 COMPREHENSIVE METABOLIC PANEL Lab Routine Alcohol use disorder Mucosal bleeding Expected: 03/28/2023 (Approximate), Expires: 03/27/2024 PT INR Lab Routine Alcohol use disorder Mucosal bleeding Expected: 03/28/2023 (Approximate), Expires: 03/27/2024 Scheduled Referrals Name Type Priority Associated Diagnoses Orde r Schedule ALCOHOL/CHEMICAL DEPENDENCY REFERRAL OP Referral Within 3 days (urgent) Alcohol use disorder Ordered: 03/28/2023 Health Maintenance Due Date Last Done Comments [...] Visit Diagnoses Diagnosis Alcohol use disorder- Primary Alcohol withdrawal syndrome with complication (HCC) Mucosal bleeding Hepatosplenomegaly Other chronic nonalcoholic liver disease documented in this encounter Care Teams Wood Carver Relationship Specialty Start Date End Date Cory Ross PA-C [address] [place] [phone] PCP - General Physician Landscape Nurseryman 10/27/22 documented as of this encounter"
--- OUTSIDE RECORDS SUMMARY | 2023-06-14 21:45 | External Medical Summary ---
Author Name Unknown Address Unknown Organization K1G:LABORATORY [facility] - [address] [place] [phone] Laboratory Report Ordering Provider Test Date Status TANIKA CARLSONERETrish 03/29/2023 07:42:02 Final Observation Date Value Abnormality Reference (Units ) Status Ethanol 03/29/2023 07:42:02 215.0 Above high normal Ne gative (mg/dL) Final Performing Location LABORATORY [facility] - [address] [facility] [address]
--- OUTSIDE RECORDS SUMMARY | 2023-06-14 21:45 | External Medical Summary ---
Author Name Unknown Address Unknown Organization K1G:LABORATORY [facility] - [address] [place] [phone] Laboratory Report Ordering Provider Test Date Status YANA CARLSONTrish 03/29/2023 07:42:02 Final Observation Date Value Abnormality Reference (Units ) Status Lactic Acid, Whole Blood 03/29/2023 07:42:02 1.9 0.4-2.0 (mmol/L) Final Performing Location LABORATORY [facility] - [address] [place] [phone]
--- OUTSIDE RECORDS SUMMARY | 2023-06-14 21:45 | External Medical Summary | Summary of Care ---
Author Name Unknown Organization [facility] Address [address] [place] [address] Phone [phone] Care Team Providers Care Psychiatrist Name Role Phone Cory Ross PA-C Primary Care Provider + [phone] Reason for Visit * Reason Comments Outpatient Testing Encounter Details Date Type Department Care Team ([facility] st Contact Info) Description 03/28/2023 2:40 PM [facility] Laboratory Laboratory Patient Service [address] [phone] [facility] [address] [place] [phone] Alcohol use disorder Allergies No known active [...] (Oral) 994,02/19/1990,1988,1988 Pneumococcal Conjugate Vacci ne, 20-valent ([id number]) 01/31/2023 Seasonal Influenza, PF, 6 M & [...] Upcoming Encounters Date Type Department Care Team ([facility] Contact Info) Description 04/05/2023 3:40 PM EST Office Visit Family [address] [phone] Tami Upton MD [address] [place] [phone] Pending Results Name Type Priority Associated [...] disorder documented in this encounter Care Teams Psychiatrist Relationship Specialty Start Date End Date Cory Ross PA-C [address] [place] [phone] PCP - General Physician Cereal Popper 10/27/22 documented as of this encounter
--- OUTSIDE RECORDS SUMMARY | 2023-06-14 21:45 | External Medical Summary ---
Author Name Unknown Address Unknown Organization K1G:LABORATORY [facility] - [address] [place] [phone] Laboratory Report Ordering Provider Test Date Status AMBER CORMIER 03/29/2023 09:57:17 Final Observation Date Value Abnormality Reference (Units ) Status Lactic Acid, Whole Blood 03/29/2023 09:57:17 1.9 0.4-2.0 (mmol/L) Final Performing Location LABORATORY [facility] - [address] [place] [phone]
--- OUTSIDE RECORDS SUMMARY | 2023-06-14 21:45 | External Medical Summary ---
Author Name Unknown Address Unknown Organization K1G:LABORATORY [facility] - [address] [place] [address] Laboratory Report Ordering Provider Test Date Status ALEJO CARLSON 03/29/2023 09:44:05 Final ADMITTED patient Observation Date Value Abnormality Reference (Units ) Status Adenovirus DNA [Presence] in Nasopharynx by SHANNAN with non-probe detection 03/29/2023 09:44:05 Negative Negative Final Human coronavirus 229E RNA [Presence] in Nasopharynx by SHANNAN with non-probe detection 03/29/2023 09:44:05 Negative Negative Final Human coronavirus HKU1 RNA [Presence] in Nasopharynx by SHANNAN with non-probe detection 03/29/2023 09:44:05 Negative Negative Final Human coronavirus NL63 RNA [Presence] in Nasopharynx by SHANNAN with non-probe detection 03/29/2023 09:44:05 Negative Negative Final Human coronavirus OC43 RNA [Presence] in Nasopharynx by SHANNAN with non-probe detection 03/29/2023 09:44:05 Negative Negative Final SARS-CoV-2 (COVID-19) RNA [Presence] in Nasopharynx by SHANNAN with non-probe detection 03/29/2023 09:44:05 Negative Negative Final Human metapneumovirus RNA [Presence] in Nasopharynx by SHANNAN with non-probe detection 03/29/2023 09:44:05 Negative Negative Final Rhinovirus+Enterovirus RNA [Presence] in Nasopharynx by SHANNAN with non-probe detection 03/29/2023 09:44:05 Negative Negative Final Influenza virus A RNA [Presence] in Nasopharynx by SHANNAN with non-probe detection 03/29/2023 09:44:05 Negative Negative Final Influenza virus B RNA [Presence] in Nasopharynx by SHANNAN with non-probe detection 03/29/2023 09:44:05 Negative Negative Final Parainfluenza virus 1 RNA [Presence] in Nasopharynx by SHANNAN with non-probe detection 03/29/2023 09:44:05 Negative Negative Final Parainfluenza virus 2 RNA [Presence] in Nasopharynx by SHANNAN with non-probe detection 03/29/2023 09:44:05 Negative Negative Final Parainfluenza virus 3 RNA [Presence] in Nasopharynx by SHANNAN with non-probe detection 03/29/2023 09:44:05 Negative Negative Final Parainfluenza virus 4 RNA [Presence] in Nasopharynx by SHANNAN with non-probe detection 03/29/2023 09:44:05 Negative Negative Final Respiratory syncytial virus RNA [Presence] in Nasopharynx by SHANNAN with non-probe detection 03/29/2023 09:44:05 Negative Negative Final Bordetella pertussis.pertussis toxin promoter region [Presence] in Nasopharynx by SHANNAN with non-probe detection 03/29/2023 09:44:05 Negative Negative Final Chlamydophila pneumoniae DNA [Presence] in Nasopharynx by SHANNAN with non-probe detection 03/29/2023 09:44:05 Negative Negative Final Mycoplasma pneumoniae DNA [Presence] in Nasopharynx by SHANNAN with non-probe detection 03/29/2023 09:44:05 Negative Negative Final Bordetella parapertussis [id number] DNA [Presence] in Nasopharynx by SHANNAN with non-probe detection 03/29/2023 09:44:05 Negative Negative Final
The primers that detect Rhinovirus may cross react with some Enterorviruses. The validation of bronchial specimens, tracheal aspirates, and throats for this assay was developed and performance characteristics determined by [employer]. The validation of alternate specimen types has not been cleared or approved by the U.S. Food and Drug Administration (FDA). It has been determined that such clearance or approval is not necessary. Performing [facility] LABORATORY [facility] - [address] [facility] [address]
--- OUTSIDE RECORDS SUMMARY | 2023-06-14 21:45 | External Medical Summary ---
Author Name Unknown Address Unknown Organization K1G:LABORATORY [address] [address] Laboratory Report Ordering Provider Test Date Status AMBER CORMIER 03/29/2023 10:13:39 Final Observation Date Value Abnormality Reference (Units ) Status Bacteria identified in Specimen by Culture 03/29/2023 10:13:39 No growth Final Test: Culture, Blood
Spe cimen Source: Blood, Venous
Specimen Type: Blood
Specimen Date: 03/29/2023 10:13 AM
Result Date: 04/03/2023 11:01 AM
Result Status: Final result
Resulting Lab: LABORATORY [facility]
[address] [place] [address]
[facility] [address]

CULTURE

No growth

null Performing Location LABORATORY [facility] - [address] [place] [address]
--- OUTSIDE RECORDS SUMMARY | 2023-06-14 21:45 | External Medical Summary ---
Author Name Unknown Address Unknown Organization K1G:LABORATORY [facility] - [facility] [facility] [address] Laboratory Report Ordering Provider Test Date Status AMBER CORMIER 03/29/2023 14:06:51 Final Observation Date Value Abnormality Reference (Units ) Status RBC, Urine 03/29/2023 14:06:51 0-2 0-2 (/HPF) Final WBC, Urine 03/29/2023 14:06:51 0-2 0-2 (/HPF) Final Bacteria [#/area] in Urine sediment by Microscopy high power field 03/29/2023 14:06:51 51-100 Abnormal 0-25 (/HPF) Final Performing Location LABORATORY [facility] - [address] [facility] [address]
--- OUTSIDE RECORDS SUMMARY | 2023-06-14 21:45 | External Medical Summary ---
Author Name Unknown Address Unknown Organization K01:LABORATORY [facility] - [address] [address] Laboratory Report Ordering Provider Test Date Status AMBER CORMIER 03/29/2023 09:57:17 Final Observation Date Value Abnormality Reference (Units ) Status ABO 03/29/2023 09:57:17 A Final RH 03/29/2023 09:57:17 Positive Final RED BLOOD CELL ANTIBODY SCREEN 03/29/2023 09:57:17 Negative Final SPECIMEN EXPIRATION DATE 03/29/2023 09:57:17 04/01/2023 23:59 Final Performing Location LABORATORY [facility] - [address] [address]
--- OUTSIDE RECORDS SUMMARY | 2023-06-14 21:45 | External Medical Summary ---
Author Name Unknown Address Unknown Organization K1G:LABORATORY [facility] - [address] [place] [id number] Laboratory Report Ordering Provider Test Date Status ALEJO CARLSON 03/29/2023 07:42:02 Final Observation Date Value Abnormality Reference (Units ) Status Bilirubin, Direct 03/29/2023 07:42:02 0.7 Above high normal 0.0-0.3 (mg/dL) Final Performing Location LABORATORY [facility] - [address] [facility] [address]
--- OUTSIDE RECORDS SUMMARY | 2023-06-14 21:45 | External Medical Summary ---
Author Name Unknown Address Unknown Organization K01:LABORATORY [facility] - [address] [place] [address] [address] [facility] [address] Laboratory Report Ordering Provider Test Date Status MARIAM PHILLIPS 03/29/2023 07:42:02 Final Observation Date Value Abnormality Reference (Units ) Status HIV 1+2 Ab+HIV1 p24 Ag [Presence] in Serum or Plasma by Immunoassay 03/29/2023 07:42:02 Negative Negative Final Negative HIV-1/2 antigen and antibody screening tset results usually indicate the absence of HIV-1 and HIV-2 infection. However, such negative results do not rule-out acute HIV infection. If acute HIV-1 infection is highly suspected, it is recommended that a specimen be submitted for detection of HIV-1 RNA. Performing Location LABORATORY [facility] - [facility] [address] [facility] [address] [facility] [address]
--- OUTSIDE RECORDS SUMMARY | 2023-06-14 21:45 | External Medical Summary | Summary of Care ---
Author Name Unknown Organization [facility] Address [address] [facility] [place] [address] Phone [phone] Care Team Providers Care Tactical Deception Plans Officer Name Role Phone Cory Ross PA-C Primary Care Provider + [phone] Reason for Visit * Reason Onset Date Comments Other 03/29/2023 Thrombocytopenia , neutropenia Encounter Details Date Type Department Care Team (Late st Contact Info) Description 03/29/2023 Telephone Hematology/Oncology, 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 Villarreal [phone] cell documented in this encounter Plan of Treatment Upcoming Encounters Date Type Department Care Team (Late st Contact Info) Description 04/05/2023 3:40 PM EST Office Visit [address] [address] Tami Upton MD [address] [place] [phone] Health Maintenance Due Date Last Done [...] Advance Directives occurred with: Patient Care Teams Tactical Deception Plans Officer Relationship Specialty Start Date End Date Cory Ross PA-C [address] [place], [place] [address] [phone] PCP - General Physician Wood Science Professor 10/27/22 documented as of this encounter
--- OUTSIDE RECORDS SUMMARY | 2023-06-14 21:45 | External Medical Summary | Summary of Care ---
Author Name Unknown Organization [facility] Address [address] [facility] [place] [address] Phone [phone] Care Team Providers Care Hand Kiss Setter Name Role Phone Cory Ross PA-C Primary Care Provider + [phone] Reason for Visit * Reason Onset Date Comments After Hours Call 03/29/2023 Encounter Details Date Type Department Care Team (Late st Contact Info) Description 03/29/2023 Telephone Family Practice, [facility] [address] [place] [address] Sharer, Olivia Oliver MD [address] [place] [address] After Hours Call Allergies No known active allergiesdocumented as of [...] 03/29/2023) Immunizations Name Administration Dates Next Due Pneumococcal [...] encounter Miscellaneous Notes * Telephone Encounter - Irais Torre PA-C - 03/29/2023 7:05 AM EST I contacted the patient after notification of critical platelet value. Platelet count of 18. Chart reviewed. Patient reported he has some bleeding around mucosa, gets some blood when she blows his nose. Also has specs of blood when he coughs. Advised ED evaluation and treatment. Patient deferred atthis time. Reports he had an appintment in the AM with MAT he didn't want to miss. Advised patient if bleeding increased to go to ED. Patient verbalized understanding. * Telephone Encounter - Olivai Reyes MD - 03/29/2023 1:17 AM EST Notified by lab at 107am of critical value of platelet count of 18. Chart reviewed, patient was seen in the office on 03/28/23 , note indicated mucosal bleeding and heavy alcohol use with hepatosplenomegaly. Attempted to call patient, no answer. Other labs do indicate elevated LFTs with normal PT/INR. With findings , recommend ER evaluation, patient refused ER earlier today at time of visit. He does have an appointment this am at 10:45 with MAT, I will CC message to treating provider and upcoming provider. documented in this encounter Plan of Treatment Upcoming Encounters Date Type Department Care Team (Late st Contact Info) Description 04/05/2023 3:40 PM EST Office Visit [address] [address] Tami Upton MD [address] [place] [phone] Health Maintenance Due Date Last Done Comments [...] Not on filedocumented as of this encounter Care Teams Hand Kiss Setter Relationship Specialty Start Date End Date Cory Ross PA-C [address] [place] [phone] PCP - General Physician Parking Cashier 10/27/22 documented as of this encounter
--- OUTSIDE RECORDS SUMMARY | 2023-06-14 21:45 | External Medical Summary ---
Author Name Unknown Address Unknown Organization K01:LABORATORY [facility] [place] [address] [facility] [address] [facility] [address] Laboratory Report Ordering Provider Test Date Status MARIAM PHILLIPS 03/29/2023 07:42:02 Final Observation Date Value Abnormality Reference (Units ) Status Hep B surface Ag 03/29/2023 07:42:02 Negative Neg ative Final Performing Location LABORATORY [facility] - [address] [facility] [address] [facility] [address]
--- OUTSIDE RECORDS SUMMARY | 2023-06-14 21:46 | External Medical Summary | Summary of Care ---
Author Name Unknown Organization [facility] Address [address] [facility] [address] Phone [phone] Care Team Providers Care Email Marketing Specialist Name Role Phone Cory Ross PA-C Primary Care Provider + [phone] Reason for Visit * Reason Comments Follow Up Patient is here toda y for a 4 week return.Patient has no concerns today. Encounter Details Date Type Department Care Team ([facility] Contact Info) Description 02/28/2023 1:40 PM EST Office Visit [address] [phone] Tmai Upton MD [address] [place] [phone] Compression fracture of T12 vertebra, sequela*; Compression fracture of L1 vertebra, sequela; Mood disorder (HCC); Other insomnia; Alcohol use disorder; Elevated blood pressure, situational Allergies No known active allergiesdocumented as of this encounter (statuses as of 02/28/2023) Medications Medication Sig Dispensed Refills Start Date [...] as of this encounter (statuses as of 02/28/2023) Active Problems Problem Noted Date Diagnosed Date OCD (obsessive compulsive disorder) 01/31/2023 Other insomnia 01/31/2023 Medical marijuana use 01/31/2023 Cigarette smoker 11/24/2022 Compression fracture of L1 lumbar vertebra 08/08 Compression fracture of T12 vertebra 08/09/2011 ADVANCE DIRECTIVE INFORMATION 03/08/2005 Overview: Not applicable (under age of 18) documented as of this encounter (statuses as of 02/28/2023) Immunizations Name Administration Dates Next Due Pneumococcal [...] Sign Reading Time Taken Comments Blood Pressure 152/108 02/28/2023 1:35 PM EST Pulse 102 02/28/2023 1:35 PM EST Temperature 37.3 C (99.2 F) 02/28/2023 1:32 PM ES T Respiratory Rate 20 02/28/2023 1:32 PM EST Oxygen Saturation 97% 02/28/2023 1:35 PM EST Inhaled Oxygen Concentration - - Weight 89.5 kg (197 lb 6.4 oz) 02/28/2023 1:32 P M EST Height - - Body Mass Index 30.01 10/27/2022 9:38 AM EDT documented in this encounter Progress Notes * Tami Upton MD - 02/28/2023 1:40 PM EST Images from the original note were not included. History of Present Illness Esdras Storey is a 32 year old male with alcohol use disorder, prior T12 and L1 compression fractures, and reported OCD and insomnia that presents for Follow Up (Patient is here today for a 4 week return./Patient has no concerns today.) Has not been able to schedule with PT yet for chronic back pain and known compression fractures - waiting for call from [facility]. Gabapentin feels like it is just starting to kick in, though he feels somewhat drowsy. Has not been sleeping well at all. Significant difficulty falling asleep even though he is exhausted. Has not noticed a difference with Abilify yet. He is trying to abstain from alcohol completely. Physical Exam Vitals: 02/28/23 1332 02/28/23 1335 Temp: 37.3 C (99.2 F) Pulse: 104 102 Resp: 20 SpO2: 98% 97% BP: 154/110 152/108 Physical Exam Vitals and nursing note reviewed. [...] and time. Mental status is at baseline. I have reviewed the following results: None Assessment and Plan Compression fracture of T12 vertebra, sequela Compression fracture of L1 vertebra, sequela Schedule PT, continue gabapentin 100 mg TID. Consider MRI if no improvement Mood disorder (HCC) Other insomnia So far no real improvement on Abilify, though he would like to give it some more time before changing or increasing. Alcohol use disorder Working on abstinence Elevated blood pressure, situational Noted in setting of poor sleep, stress, back pain. Would like to defer treatment until feeling better and measuring at that time Wrap-Up Follow Up: Return in about 4 weeks (around 03/28/2023) for Return with Physician. | For: Return withPhysician | Check-out note: Needs assistance scheduling PT at [facility] Time: I spent a total of 10-19 minutes (exact time 18 mins) on the date of service in preparation, delivery, and documentation of the care provided to Esdras Storey excluding any time spent in the performance of separately billed services. documented in this encounter Nursing Notes * Valerie Ramos CCMA - 02/28/2023 1:35 PM EST The patient has been properly identified by confirmation of name and date of . Chief Complaint Patient presents with Follow Up Patient is here today for a 4 week return. Patient has no concerns today. documented in this encounter Plan of Treatment Upcoming Encounters Date Type Department Care Team ([facility] st Contact Info) Description 03/28/2023 2:00 PM EST Office Visit [address] [phone] Tami Upton MD [address] [place] [phone] Health Maintenance Due Date Last Done [...] Primary Compression fracture of L1 vertebra, sequela Mood disorder (HCC) Unspecified episodic mood disorder Other insomnia Alcohol use disorder Elevated blood pressure, situational Elevated blood pressure reading without diagnosis of hypertension documented in this encounter Care Teams Email Marketing Specialist Relationship Specialty Start Date End Date Cory Ross PA-C [address] [place] [phone] PCP - General Physician Chef Concierge 10/27/22 documented as of this encounter"
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
--- OUTSIDE RECORDS SUMMARY | 2023-06-14 21:46 | External Medical Summary ---
Author Name Unknown Address Unknown Organization [id number]:[facility] [place] [address] [place] [address] Laboratory Report Ordering Provider Test Date Status CORIE CLEMENT 03/28/2023 14:45:03 Final Observation Date Value Abnormality Reference (Units ) Status SYNC LEUKOCYTES IN BLOOD BY AUTOMATED COUNT 03/28/2023 14:45:03 2.40 Below low normal 4.00-10.80 (K/uL) Final Segs 03/28/2023 14:45:03 34.6 Below low normal 40.0-75.0 (%) Final Lymphs % 03/28/2023 14:45:03 56.7 Above high normal 18.0-42.0 (%) Final Monos 03/28/2023 14:45:03 7.1 1.0-11.0 (%) Final Eosinophils 03/28/2023 14:45:03 0.8 0.0-6.0 (%) Final Basos 03/28/2023 14:45:03 0.4 0.0-2.0 (%) Final Immature Granulocyte, Percent 03/28/2023 14:45:03 0.4 0.0-2.0 (%) Final Absolute Segs 03/28/2023 14:45:03 0.83 Below low normal 1.80-7.70 (K/uL) Final Lymphs, absolute 03/28/2023 14:45:03 1.36 1.00-4.80 (K/ul) Final Monos, Abs 03/28/2023 14:45:03 0.17 0.00-1.10 (K/uL) Final Eos, Abs 03/28/2023 14:45:03 0.02 0.00-0.70 (K/uL) Final Basos, Abs 03/28/2023 14:45:03 0.01 0.00-0.20 (K/uL) Final Immature Granulocytes, Number 03/28/2023 14:45:03 0.01 0.00-0.20 (K/uL) Final Performing Location [facility] [place] [address] [facility] [address]
--- OUTSIDE RECORDS SUMMARY | 2023-06-14 21:46 | External Medical Summary ---
Author Name Unknown Address Unknown Organization [id number]:[facility]ATORY [facility] – [place], [place] - [facility] [address] [facility] [address] Laboratory Report Ordering Provider Test Date Status CORIE CLEMENT 03/28/2023 14:45:03 Final Observation Date Value Abnormality Reference (Units ) Status WBC, Total 03/28/2023 14:45:03 2.40 Below low normal 4.00-10.80 (K/uL) Final RBC 03/28/2023 14:45:03 5.15 4.50-5.25 (M/uL) Final Hemoglobin 03/28/2023 14:45:03 15.8 14.0-16.8 (g/dL) Final HCT 03/28/2023 14:45:03 47.3 40.0-48.4 (%) Final MCV 03/28/2023 14:45:03 91.8 82.0-99.5 (fL) Final MCH 03/28/2023 14:45:03 30.7 27.0-34.0 (pg) Final MCHC 03/28/2023 14:45:03 33.4 32.0-36.0 (g/dL) Final RDW 03/28/2023 14:45:03 15.8 11.5-15.5 (%) Final Platelets 03/28/2023 14:45:03 18 Below lower panic limits 140-400 (K/uL) Final MPV 03/28/2023 14:45:03 12.2 6.6-11.1 (fL) Final Nucleated erythrocytes/100 leukocytes [Ratio] in Blood by Automated count 03/28/2023 14:45:03 0 <=0 (/100 WBCs) Final Performing Location LABORATORY [facility] – [place], [place] - [address] [place] [address]
--- OUTSIDE RECORDS SUMMARY | 2023-06-14 21:46 | External Medical Summary ---
Author Name Unknown Address Unknown Organization [id number]:[facility]ATORY [facility] - [address] [place] [address] Laboratory Report Ordering Provider Test Date Status CORIE CLEMENT 03/28/2023 14:45:03 Final Observation Date Value Abnormality Reference (Units ) Status Toxic granules [Presence] in Blood by Light microscopy 03/28/2023 14:45:03 Moderate Abnormal None Seen Final Neutrophils.vacuolated [Presence] in Blood by Light microscopy 03/28/2023 14:45:03 Present Abnormal None Seen Final Performing Location LABORATORY [facility] - [address] [place] [address]
--- OUTSIDE RECORDS SUMMARY | 2023-06-14 21:46 | External Medical Summary | Summary of Care ---
Author Name Unknown Organization [facility] Address [address] [place] [address] Phone [phone] Care Team Providers Care Shot Examiner Name Role Phone Cory Ross PA-C Primary Care Provider + [phone] Reason for Visit * Reason Comments Outpatient Testing Encounter Details Date Type Department Care Team ([facility] st Contact Info) Description 03/28/2023 2:40 PM [facility] [phone] Have, [facility] [address] [place] [phone] Arrived Allergies No known active allergiesdocumented as of [...] Upcoming Encounters Date Type Department Care Team ([facility] Contact Info) Description 04/05/2023 3:40 PM EST Office Visit [address] [phone] Tami Upton MD [address] [place] [phone] Health Maintenance Due Date Last Done [...] filedocumented as of this encounter Care Teams Shot Examiner Relationship Specialty Start Date End Date Cory Ross PA-C [address] [place] [phone] PCP - General Physician Interactive Web Developer 10/27/22 documented as of this encounter
--- OUTSIDE RECORDS SUMMARY | 2023-06-14 21:46 | External Medical Summary ---
Author Name Unknown Address Unknown Organization [id number]:[facility] [place] [facility] [address] [place] [address] Laboratory Report Ordering Provider Test Date Status MARIAM PHILLIPS 03/28/2023 14:45:03 Final Observation Date Value Abnormality Reference (Units ) Status Retic, % (auto) 03/28/2023 14:45:03 0.47 Below low normal 0.80-1.90 (%) Final Reticulocytes, Absolute 03/28/2023 14:45:03 24.8 Below low normal 31.3-100.1 (K/uL) Final Reticulocyte fraction, immature 03/28/2023 14:45:03 3.2 2.5-20.6 (%) Final Reticulocyte HGB 03/28/2023 14:45:03 37.1 29.7-37.4 (pg) Final Performing Location [facility] [place] [facility] [address] [facility] [place] [address]
--- OUTSIDE RECORDS SUMMARY | 2023-06-14 21:46 | External Medical Summary ---
Author Name Unknown Address Unknown Organization [id number]:[facility] [place] - [address] [place] [address] Laboratory Report Ordering Provider Test Date Status CORIE CLEMENT 03/28/2023 14:45:03 Final Observation Date Value Abnormality Reference (Units ) Status BUN 03/28/2023 14:45:03 8 6-20 (mg/dL) Final Creatinine 03/28/2023 14:45:03 0.5 Below low normal 0.6-1.2 (mg/dL) Final Glomerular filtration rate/1.73 sq M.predicted [Volume Rate/Area] in Serum, Plasma or Blood by Creatinine-based formula (CKD-EPI) 03/28/2023 14:45:03 >90 >=60 (mL/min) Final eGFR is calculated based on the CKD-EPI 2020 equation SODIUM 03/28/2023 14:45:03 141 135-146 (m mol/L) Final Potassium 03/28/2023 14:45:03 3.9 3.5-5.1 (m mol/L) Final Cl 03/28/2023 14:45:03 98 98-107 (mm ol/L) Final CO2 03/28/2023 14:45:03 26 22-32 (mmo l/L) Final Anion gap 03/28/2023 14:45:03 17 Above high normal 7- 15 (mmol/L) Final Glucose 03/28/2023 14:45:03 85 70-120 (mg /dL) Final Albumin 03/28/2023 14:45:03 5.0 3.8-5.0 (g /dL) Final AST (Aspartate aminotransferase) 03/28/2023 14:45:03 646 Above high normal 10-50 (U/L) Final Alk Phos 03/28/2023 14:45:03 116 35-130 (U/ L) Final Bilirubin, Total 03/28/2023 14:45:03 1.2 <=1 .2 (mg/dL) Final Calcium 03/28/2023 14:45:03 9.2 8.4-10.2 ( mg/dL) Final Protein 03/28/2023 14:45:03 8.6 Above high normal 6. 0-8.3 (g/dL) Final ALT (Alanine aminotransferase) 03/28/2023 14:45:03 322 Above high normal 10-50 (U/L) Final Performing Location [facility]ORY [facility] [place] - [facility] [address] [facility] [address]
--- NOTE | 2023-06-14 21:52 | Electrocardiogram Report ---
Test Reason : Blood Pressure : / mmHG Vent. Rate : 085 BPM Atrial Rate : 085 BPM P-R Int : 158 ms QRS Dur : 094 ms QT Int : 404 ms P-R-T Axes : 068 070 049 degrees QTc Int : 480 ms Normal sinus rhythm Prolonged QT Abnormal ECG No previous ECGs available Confirmed by Evens Trammell ([id number]) on 06/14/2023 9:51:46 PM Referred By: Tami Upton Confirmed By:Evens Trammell
[2023-06-15] MEDS: ACAMPROSATE CALCIUM 333 MG TAB PO SCH (00:06)
[2023-06-15] MEDS: GABAPENTIN 600 MG TAB PO SCH (05:22)
[2023-06-15 08:13] LABS: BUN Creatinine Ratio 12.7 (10-20); Calcium 8.6 mg/dl (8.6-10.3); Creatinine Clr Calc Pharmacy 165.8 ml/min; Est GFR (African American) 141.9 ml/min; Est GFR (Non-African American) 122.4 ml/min; Potassium 3.9 mmol/L (3.5-5.1)
[2023-06-15 08:26] LABS: Basophils # (auto) 0.01 K/uL (0.00-0.20); Basophils % (auto) 0.3 %; Eosinophils # (auto) 0.14 K/uL (0.00-0.50); Eosinophils % (auto) 4.2 %; Hematocrit (blood only) 35.5 % (42.0-52.0); Immature Granulocytes # (auto) 0.02 K/uL (0.01-0.20); Immature Granulocytes % (auto) 0.6 %; Lymphocytes # (auto) 1.75 K/uL (1.20-3.40); Lymphocytes % (auto) 51.9 %; Mean Corpuscular Hemoglobin 30.2 pg (25.0-34.0); Mean Corpuscular Hgb Conc 33.8 g/dL (32.0-36.0); Mean Corpuscular Volume 89.4 fL (80.0-100.0); Mean Platelet Volume 10.8 fL (9.4-12.4); Monocytes # (auto) 0.45 K/uL (0.11-0.59); Monocytes % (auto) 13.4 %; Neutrophils % (auto) 29.6 %; Platelet Count 43 K/uL (130-400); Platelet Estimate Decreased (Normal); Polychromasia 1+; RDW Coefficient of Variation 18.1 % (11.5-14.5); RDW Standard Deviation 59.2 fL (36.4-46.3); Red Blood Count 3.97 M/uL (4.70-6.10); White Blood Count 3.37 K/ul (4.8-10.8)
--- NOTE | 2023-06-15 12:06 | Discharge Summary ---
Date of Service June 15, 2023 Admission HPI Per Admitting Provider 32-year-old male with past medical history significant for hyperlipidemia, lung nodules, hepatosplenomegaly, alcohol induced fatty liver, history of compression fracture L1 lumbar vertebrae and T12 vertebrae, thrombocytopenia due to drugs, alcohol dependence, cigarette smoking, obsessive-compulsive disorder, medical marijuana use, history of elevated liver transaminases levels, history of general anxiety disorder, history of Lyme disease presents with bleeding gums and found to have thrombocytopenia. Patient states in March he was in [facility] because his family doctor called him and told that his platelets are very low. As per patient in [facility] he was given platelet transfusion and also was put on steroids. Seems he also followed with heme-onc as outpatient but by the time his platelets improved. And was told to come to the ER if ever develops any bleeding issues. And since last few days having gum bleeding and he came here. He states he drinks alcohol on and off. He drinks 10 to 14 days heavy alcohol about 750 ml of vodka or whiskey daily. Then when he runs out of money or feels like stopping he stops drinking.Lately he is detoxing himself at home. Last Saturday morning was last drink as per patient. And he had withdrawal symptoms for few days. He states currently he is done with withdrawal. He states that he he has history of withdrawal seizures in the past. was admitted to hospital in [place] in the past as per patient. Currently hemodynamics are okay. Denies any blood in the stools or black stool. Denies any hematuria. Denies any headache or dizziness. No blurred visions. Has some runny nose. No sore throat. Appetite is okay. Denies any chest pain or shortness of breath. No nausea. No abdominal pain. Past medical history. As mentioned above Past surgical history. Colonoscopy. Tubes in ears. Tonsillectomy and adenoidectomy. Social history. Smokes 0 point packs daily. On and off heavy drinking of alcohol as per patient. Smokes marijuana. Family history. Brother has alcoholism. Asthma. Drug abuse. Smoking. Admission Exam Per Admitting Provider General- Not in distress Head- atraumatic Eyes- PERRL. ENT- oropharynx clear Neck- supple, no JVD. Lungs- clear to auscultation no wheezing or crackles Heart- regular rate and rhythm; no murmur, no gallop. Abdomen- normal bowel sounds, soft, nontender, no distension. Extremities- no pretibial edema, no erythema seen. Neuro- alert, oriented PERRL, no facial palsy; no dysarthria; moves extremities. Principal Diagnosis Alcohol use disorder Thrombocytopenia Bleeding gums Discharge Exam Constitutional: WD/WN, vitals as above, NAD, sitting up in bed, pleasant, conversing easily. No gums bleeding noted Respiratory: Bilateral vesicular breath sound Cardiovascular: RRR, no murmur, no edema Vessels: no JVD or carotid bruit Abdomen: normal bowel sounds, soft, nontender, no hepatosplenomegaly Musculoskeletal: no cyanosis or clubbing, extremities motor strength 5/5 Skin: no rashes, warm and dry normal turgor Neurologic: PERRL, EOMI, accommodation nl, no face palsy, no dysarthria CN's II- XI intact bilaterally and moves all extremities Psychiatric: A+Ox3, euthymic affect Discharge Data Allergies Allergy/AdvReac Type Severity Reaction Status Date / Time No Known Allergies Allergy Verified 06/14/23 00:09 Consultations 06/13/23 22:36 ED Decision to Admit Stat 06/14/23 08:00 Consult Gastroenterology Routine Ordered Studies 06/13/23 22:33 CT Abd and Pelvis [CT abd pelvis IV con only] Stat Hospital Course (1) Pancytopenia: 32-year-old male past medical history significant for hyperlipidemia, lung nodules, hepatosplenomegaly, alcohol induced fatty liver, history of compression fracture L1 lumbar vertebrae and T12 vertebrae, thrombocytopenia due to drugs, alcohol dependence, cigarette smoking, obsessive-compulsive disorder, medical marijuana use, history of elevated liver transaminases levels, history of general anxiety disorder, history of Lyme disease presents with bleeding gums and found to have thrombocytopenia. History of similar episode in the past for which he was hospitalized in outside hospital in March 2023. During that hospitalization, patient required transfusion of 1 unit of platelets when his platelets drop less than 10,000. Patient underwent workup with hepatitis panel which was negative, HIV was negative and absolute reticulocyte count was slightly decreased. Patient follow- up with hematology in April 2023; the acute thrombocytopenia was thought lik kingsley secondary to alcohol intoxication. During this hospitalization, patient was monitored for any signs of severe bleeding. He was transfused 2 units of platelet with platelet improving to 43,000 at discharge. He did not have any bleeding from his gums. GI was consulted for comanagement for alcoholic hepatitis. Patient was discharged home with instruction to follow-up with PCP and hematology after discharge Patient has no signs or symptoms of bleeding at the time of the discharge. Hemoglobin remained stable around 12 throughout the hospitalization Please note the above document was generated using voice recognition software. It may contain grammatical, syntax or spelling errors. Any formal questions or concerns about the content, text or information contained within the body of this dictation should be directly addressed to the provider for clarification Total Time Total Time Spent Total Time Spent (In Minutes): 45 Total Time Includes: Examination of the Patient, Discharge Planning, Medication Reconciliation, Communication With Other Providers and Other Discharge Plan Discharge Items Patient Disposition: Home - Self-Care Reason For Visit: BLEEDING GUMS, THROMBOCYTOPENIA, ALCOHOLIC HEPATIT Discharge Diagnosis: Bleeding gums Thrombocytopenia Alcohol hepatitis Condition on Discharge: Fair Activity: Resume your previous activity Non-emergency contact: Primary Care Provider Call non-emergency contact if: you have any medication questions and your symptoms worsen Follow-up/Referrals: Tami Upton MD [Primary Care Provider] - Diet: Regular Addtl Attending Provider Instructions: You were admitted to the hospital due to bleeding gums. The likely cause for it is low platelet counts secondary to alcohol use. You are prescribed vitamin C supplement. Please take 2 tablets each day. An appointment with your primary care doctor will be set up. Also, appointment with your hematology will be set up. Pending Studies at Discharge: No Stand-Alone Forms: My [facility] [place], Smoking Cessation Medications and DC Order Prescriptions: New ascorbic acid (vitamin C) [Vitamin C] 500 mg Tablet 1,000 mg PO QAM Qty: 60 0RF Continued folic acid 1 mg tablet 1 mg PO DAILY gabapentin 100 mg Capsule 100 mg PO TID acamprosate 333 mg tablet,delayed release (DR/EC) 666 mg PO BID Rx Instructions: PER [facility]--TID, PER PT "ONLY TAKE BID, AND SOMETIMES ONLY ONCE A DAY". paliperidone [Invega] 6 mg Tablet Extended Release 24 Hr 6 mg PO QAM Medical Cannibus 1 dose inhalation DIRECTED PRN (Reason: NEEDED) Rx Instructions: SMOKES/VAPS Discharge Orders: Discharge Order (Routine); Ordered 06/15/23 Ordered By: Tyler Hung Admission Data Admit Date/Time: 06/14/23 01:59 Attending Provider: Tyler Hung Admit Provider: Estuardo Reese Primary Care Provider: Tami Upton Other Providers: Estuardo Reese; Zakia Jang Other Interventions: Discharge Summary Assessment (RN) Last Done: 06/15/23 11:18
[2023-06-16] MEDS ORDERED: GABAPENTIN 600 MG TAB PO SCH (10:00)
[2023-06-16 11:17] LABS: Marijuana Quant, GCMS Urine >5000 ng/mL (<5)
[2023-06-17] MEDS ORDERED: GABAPENTIN 600 MG TAB PO SCH (22:00)
== END 2023-06-15 12:59 | disposition home or self-care (01) | DRG 810 ==
LOC: ED 21:27 → 2S 06-14 01:59 → INTOOBSV 06-14 01:59 → 2S 06-14 03:36

== ENCOUNTER 2023-08-08 14:52 | Inpatient (IN) ==
[2023-08-08 15:30] LABS: Basophils # (auto) 0.08 K/uL (0.00-0.20); Eosinophils # (auto) 0.12 K/uL (0.00-0.50); Eosinophils % (auto) 1.5 %; Hematocrit (blood only) 40.4 % (42.0-52.0); Hemoglobin 14.2 g/dl (14.0-18.0); Immature Granulocytes # (auto) 0.02 K/uL (0.01-0.20); Immature Granulocytes % (auto) 0.3 %; Lymphocytes # (auto) 3.14 K/uL (1.20-3.40); Lymphocytes % (auto) 39.3 %; Mean Corpuscular Hemoglobin 32.3 pg (25.0-34.0); Mean Corpuscular Hgb Conc 35.1 g/dL (32.0-36.0); Mean Corpuscular Volume 91.8 fL (80.0-100.0); Mean Platelet Volume 9.9 fL (9.4-12.4); Monocytes % (auto) 7.5 %; Neutrophils # (auto) 4.03 K/uL (1.40-6.50); Neutrophils % (auto) 50.4 %; Platelet Count 102 K/uL (130-400); RDW Coefficient of Variation 16.6 % (11.5-14.5); RDW Standard Deviation 55.9 fL (36.4-46.3); White Blood Count 7.99 K/ul (4.8-10.8)
[2023-08-08 15:42] LABS: Alanine Aminotransferase 97 U/L (7-52); Albumin Globulin Ratio 1.1 (0.9-2); Albumin Level 4.3 gm/dl (3.4-5.0); Alkaline Phosphatase 88 U/L (34-104); Anion Gap 13 (3-11); Aspartate Aminotransferase 206 U/L (13-39); BUN Creatinine Ratio 21.7 (10-20); Bilirubin,Total 4.8 mg/dl (0.2-1.0); Blood Urea Nitrogen 13 mg/dl (6-23); Calcium 9.2 mg/dl (8.6-10.3); Carbon Dioxide 25 mmol/L (21-32); Chloride 100 mmol/L (98-107); Creatinine Clr Calc Pharmacy 173.5 ml/min; Est GFR (African American) > 150.0 ml/min; Est GFR (Non-African American) 131.2 ml/min; Glucose 117 mg/dl (70-99(Fasting)); Potassium 3.5 mmol/L (3.5-5.1); Sodium 138 mmol/L (136-145); Total Protein 8.3 gm/dl (6.0-8.3)
[2023-08-08 15:54] LABS: INR 1.6 (0.9-1.1); Partial Thromboplastin Ratio 1.3; Partial Thromboplastin Time 36 Seconds (21-31); Prothrombin Time 16.8 Seconds (9.0-12.0)
--- NOTE | 2023-08-08 16:12 | Emergency Department Note ---
Impression & Plan GIB (gastrointestinal bleeding) ADMIT ED Provider Note HPI: History obtained from patient. The patient is a 32-year-old gentleman with history of longstanding alcohol abuse, alcoholic hepatitis, pancytopenia, presents the emergency department with a chief complaint of melena and coffee-ground emesis since last night. Patient states he has been drinking approximately 1 pint of hard liquor per day for the past month. Patient states that his alcohol abuse seems to wax and wane and he has been drinking heavily for the past month. Patient states that he began having episodes of vomiting and dark stool last night. Patient denies any abdominal pain, on arrival here to the ED the patient is alert, he is initially hypertensive at 163/87, heart rate is elevated at 125, patient is saturating well on room air. Patient is alert and oriented on my initial assessment, although he does appear intoxicated. Patient states that he was drinking up until right before he came to the hospital. Patient is also requesting inpatient detox for alcohol abuse. ROS: - Per HPI Differential Diagnosis: Esophageal variceal bleed, lower GI bleed, peptic ulcer disease, alcoholic pancreatitis, SBP, amongst other potential pathologies. *Outpatient medications and allergy history reviewed. PE: General: Alert, disheveled appearing, no acute distress HEENT: Normocephalic, trachea midline Eyes: Extraocular eye movement is intact, no scleral erythema Pulmonary: Clear to auscultation bilaterally, no wheezing Cardio: Regular rate and rhythm GI: Abdomen is soft to palpation, there is mild distention without guarding or rigidity to palpation : No suprapubic tenderness MSK: No evidence of trauma or malformation of the extremities, no edema Skin: No evidence of rash Neuro: Alert, no focal deficits Psychiatric: Cooperative INDEPENDENT INTERPRETATIONS: groundwater monitoring technician: (As interpreted by myself): - An order was placed for continuous cardiac monitoring - Patient was noted to be in sinus rhythm with a rate of 104 EKG: (As interpreted by myself): Rate: 110 Rhythm: Sinus tachycardia Intervals: QTc 503 ms, otherwise within normal limits ST changes: No ST elevation Time: 1504 Interventions provided in ED: -IV fluid bolus, IV thiamine, IV folic acid, IV Protonix bolus and drip Medical Decision Making: IV was established and lab work obtained, patient was placed on groundwater monitoring technician. Lab work shows no leukocytosis, hemoglobin is normal at 14.2, platelet count is 102, CMP shows no critical findings, bilirubin is elevated at 4.8, AST is 206, ALT 97. Lipase was not initially ordered from triage therefore this will be added on. Patient does not have any abdominal tenderness on my exam, low suspicion for SBP or acute pancreatitis at this time. Patient's alcohol level is noted to be elevated at 405, he is able to have a lucid conversation with me despite this. He states he does drink heavily every day for at least the past month but he has had longstanding issues with alcohol abuse. His occult stool testing at the bedside performed with RN present is occult positive. Patient states that he would also like inpatient detox for alcohol abuse and potentially inpatient rehabilitation for alcohol abuse. Patient is high risk for worsening of GI bleeding, I did discuss the patient's presentation with the on-call hospitalist for [facility], Dr. De Souza, and the patient was placed for admission in stable condition. Consultants/Discussions held with other healthcare providers: -HospitalistDr. De Souza Disposition discussion held by myself with: -Patient Diagnosis: 1. Lower GI bleed with occult positive stool 2. Chronic alcohol abuse 3. Alcohol intoxication, acute 4. Thrombocytopenia, chronic 5. Transaminitis, alcohol related Disposition: Admission Hari Washington DO Emergency Medicine Past Med/Surg History Problem List (Updated 08/08/23 @ 16:55 by Hari Washington DO) GIB (gastrointestinal bleeding) (Acute) Alcoholic hepatitis Hypomagnesemia (Acute) Hypokalemia (Acute) Acute alcohol abuse (Acute) Pancytopenia (Acute) Medical History Alcohol abuse Social History Smoking Status: Current every day smoker Tobacco Type: Cigarettes and E-cigarettes / Vaping Cigarettes Per Day: 10; Do You Dip or Chew Tobacco: No; Hx Alcohol Use: Yes Alcohol type: hard liquor Hx Substance Use: Yes Last Used Substance: Hours (ago) Preferred Language: Chinese Communication Ability: Effective Knot Cutter Required: No Beliefs That Will Affect Care: None Current Living Situation: Alone Feels Safe at Home: Yes Assistive Devices: None Allergies Allergies Allergy/AdvReac Type Severity Reaction Status Date / Time No Known Allergies Allergy Verified 06/14/23 00:09 Home Meds Home Medications Medication Instructions Recorded Confirmed Medical Cannibus 1 dose inhalation DIRECTED PRN 06/14/23 08/08/23 NEEDED folic acid 1 mg tablet 1 mg PO DAILY 06/14/23 08/08/23 gabapentin 100 mg capsule 300 mg PO HS 06/14/23 08/08/23 Results & Data (ED) Vital Signs Vital Signs - 24 hr 08/08/23 14:56 08/08/23 16:14 08/08/23 16:30 Temperature 37.1 C Temperature Source Temporal Artery Scan Pulse Rate 125 H 109 H Pulse Rate [Apical] 105 H Pulse Rhythm Regular Pulse Rhythm [Apical] Regular Pulse Strength Normal Pulse Strength [Apical] Normal Respiratory Rate 20 21 Respiratory Effort / Characteristics Non-Labored Spontaneous Respiratory Depth Normal Normal Respiratory Pattern Regular Blood Pressure 163/87 H Blood Pressure [Left Arm] 156/111 H Blood Pressure Mean 112 Blood Pressure Mean [Left Arm] 126 Blood Pressure Position Sitting Blood Pressure Position [Left Arm] Lying Pulse Oximetry 95 96 Oxygen Delivery Method Room Air Room Air Sepsis Recent Fever Within 48 Hours No Sepsis New/Unexplained Change in Mental Status N/A Sepsis Action Taken by Nursing No Action Required Laboratory Data 08/08/23 15:08 08/08/23 15:08 Lab Results 08/08/23 Range/Units 15:08 WBC 7.99 (4.8-10.8) K/ul RBC 4.40 L (4.70-6.10) M/uL Hgb 14.2 (14.0-18.0) g/dl Hct 40.4 L (42.0-52.0) % MCV 91.8 (80.0-100.0) fL MCH 32.3 (25.0-34.0) pg MCHC 35.1 (32.0-36.0) g/dL RDW Std Deviation 55.9 H (36.4-46.3) fL RDW Coeff of Joe 16.6 H (11.5-14.5) % Plt Count 102 L (130-400) K/uL MPV 9.9 (9.4-12.4) fL Immature Gran % (Auto) 0.3 % Neut % (Auto) 50.4 % Lymph % (Auto) 39.3 % [place] % (Auto) 7.5 % Eos % (Auto) 1.5 % Baso % (Auto) 1.0 % Neut # (Auto) 4.03 (1.40-6.50) K/uL Lymph # (Auto) 3.14 (1.20-3.40) K/uL [place] # (Auto) 0.60 H (0.11-0.59) K/uL Eos # (Auto) 0.12 (0.00-0.50) K/uL Baso # (Auto) 0.08 (0.00-0.20) K/uL Immature Gran # (Auto) 0.02 (0.01-0.20) K/uL PT 16.8 H (9.0-12.0) Seconds INR 1.6 H (0.9-1.1) APTT 36 H (21-31) Seconds PTT Ratio 1.3 Sodium 138 (136-145) mmol/L Potassium 3.5 (3.5-5.1) mmol/L Chloride 100 (98-107) mmol/L Carbon Dioxide 25 (21-32) mmol/L Anion Gap 13 H (3-11) BUN 13 (6-23) mg/dl Creatinine 0.60 (0.6-1.4) mg/dl Est Cr Clr Drug Dosing 173.5 ml/min Est GFR ( Amer) > 150.0 ml/min Est GFR (Non-Af Amer) 131.2 ml/min BUN/Creatinine Ratio 21.7 H (10-20) Glucose 117 H (70-99(Fasting)) mg/dl Calcium 9.2 (8.6-10.3) mg/dl Total Bilirubin 4.8 H (0.2-1.0) mg/dl AST 206 H (13-39) U/L ALT 97 H (7-52) U/L Alkaline Phosphatase 88 (34-104) U/L Total Protein 8.3 (6.0-8.3) gm/dl Albumin 4.3 (3.4-5.0) gm/dl Globulin 4.0 (2.5-4.0) gm/dl Albumin/Globulin Ratio 1.1 (0.9-2) Ethyl Alcohol mg/dL 405.2 H (<10.0) mg/dl Administered Medications Sodium Chloride (Nss) 1,000 mls @ 999 mls/hr IV .Q1H1M ONE Stop: 08/08/23 17:12 Last Admin: 08/08/23 16:28 Dose: 999 mls/hr Documented By: KMO Discharge Plan Visit Data Chief Complaint: Illness Stated Complaint: LIVER DISEASE, POSSIBLE INTERNAL BLEEDING ED Provider: Hari Washington Discharge Problem: GIB (gastrointestinal bleeding) Forms Stand Alone Forms: My [facility] Prescriptions Prescriptions: No Action folic acid 1 mg tablet 1 mg PO DAILY gabapentin 100 mg Capsule 300 mg PO HS Medical Cannibus 1 dose inhalation DIRECTED PRN (Reason: NEEDED) Rx Instructions: SMOKES/VAPS Referrals Referrals: Tami Upton MD [Primary Care Provider] -
[2023-08-08] MEDS ORDERED: PANTOPRAZOLE BOLUS/DRIP IV STA (16:21)
[2023-08-08] MEDS ORDERED: PANTOprazole 80 MG in DEXTROSE 5% 100 ML IV ONE (16:22)
[2023-08-08] MEDS: SODIUM CHLORIDE 0.9% 1,000 ML IV ONE (16:28)
--- NOTE | 2023-08-08 16:30 | History & Physical Report ---
Date of Service August 08, 2023 Assessment & Plan (1) GIB (gastrointestinal bleeding): (2) Acute alcohol abuse: (3) Alcohol intoxication: (4) Tobacco abuse: (5) Bipolar 1 disorder: (6) Insomnia: (7) HTN (hypertension): Plan This is a 32 yr old M who has a significant PMH of 32-year-old male past medical history significant for hyperlipidemia, lung nodules, hepatosplenomegaly, alcohol induced fatty liver, history of compression fracture L1 lumbar vertebrae and T12 vertebrae, 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 Please refer to Dr. De Souza addendum for assessment and plan. DVT ppx: SQ Lovenox Dispo: tele PCP: Tami Upton MD, [place] FULL CODE A total of 45 minutes was spent coordinating, documenting, and providing care for this patient excluding time spent in the performance of separately billed services. This included personally viewing all current laboratories and imaging studies, medication reconciliation, outpatient chart review, and discussion with specialists. History of Present Illness Chief Complaint: Vomiting blood and blood in stool MEDICATION NURSE. Primary Care Provider: Tami Upton MD This is a 32 yr old M who has a significant PMH of 32-year-old male past medical history significant for hyperlipidemia, lung nodules, hepatosplenomegaly, alcohol induced fatty liver, history of compression fracture L1 lumbar vertebrae and T12 vertebrae, 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 He has been drinking daily for the past month, a pint of liquor a day. He started vomiting early this morning at 4 a.m. and moving his bowels that was consistent with blood. He has coffee grounds in his emesis and his stool was black, tarry and foul smelling so he came to the ED. He has been here for 1.5 hours and he states he knows the timeline of whats going to happen and he suspects he will get nauseated at the 4 hour jose luis. He does not feel he is addicted to alcohol. "I don't enjoy alcohol." He describes himself as an insomniac and he will go for a month with out sleeping and then he just decides to drink. He is interested in talking to someone regarding his severe insomnia. He has not had any vomiting in the ED. ED provider noted positive FOBT. He denies f/c/s, chest pain, sob, n/v/d, abd pain. In ED he was hypertensive and tachycardic. His alcohol level was significantly elevated. He was started on PPI bolus/gtt, received IV fluids, IV thiamine and folate. Of significance he was hospitalized last month 2/2 pancytopenia and required 2 units of plts. He did not have any bleeding. He does follow with [facility] [place], last seen in April, at that time was still sober. It was also felt he did have a component of DILI from abilify but he is since off of this. Allergies Allergy/AdvReac Type Severity Reaction Status Date / Time No Known Allergies Allergy Verified 06/14/23 00:09 Home Medications Medication Instructions Recorded Confirmed Type Medical Cannibus 1 dose inhalation DIRECTED PRN 06/14/23 08/08/23 History NEEDED folic acid 1 mg tablet 1 mg PO DAILY 06/14/23 08/08/23 History gabapentin 100 mg capsule 300 mg PO HS 06/14/23 08/08/23 History Past Med/Surg History Problem List (Updated 08/08/23 @ 17:23 by Amber Saldivar PA-C) Alcohol intoxication GIB (gastrointestinal bleeding) (Acute) Alcoholic hepatitis Acute alcohol abuse (Acute) Pancytopenia (Acute) Medical History HTN (hypertension) Thrombocytopenia OCD (obsessive compulsive disorder) Insomnia Bipolar 1 disorder Tobacco abuse Alcohol dependence Compression fracture of T12 vertebra Compression fracture of L1 lumbar vertebra Hepatosplenomegaly Mixed hyperlipidemia Alcohol abuse Surgical History (Updated 08/08/23 @ 17:17 by Amber Saldivar PA-C) Hx of tonsillectomy Hx of colonoscopy 2015, WNL, internal hemorrhoids Social History Smoking Status: Current every day smoker Tobacco Type: Cigarettes and E-cigarettes / Vaping Cigarettes Per Day: 10; Do You Dip or Chew Tobacco: No; Hx Alcohol Use: Yes Alcohol type: hard liquor Hx Substance Use: Yes Last Used Substance: Hours (ago) Preferred Language: Urdu Communication Ability: Effective Dish Person Required: No Beliefs That Will Affect Care: None Current Living Situation: Alone Feels Safe at Home: Yes Assistive Devices: None Review of Systems Review of Systems: All systems reviewed & are unremarkable except as noted in HPI & below Physical Exam Physical Exam: please refer to DR. De Souza addendum for physical exam findings. Results & Data Results & Data Vital Signs (Past 12 Hours) Vital Signs Temp Pulse Resp BP Pulse Ox O2 Del Method 08/08/23 16:14 109 H 08/08/23 14:56 37.1 C 125 H 20 163/87 H 95 Room Air Medications Administered Medication List Sodium Chloride (Nss) 1,000 mls @ 999 mls/hr IV .Q1H1M ONE Stop: 08/08/23 17:12 Last Admin: 08/08/23 16:28 Dose: 999 mls/hr Documented By: CAM COVID-19 Results Results COVID-19 Adm Lab Results: RBC 4.40 M/uL (4.70-6.10) L 08/08/23 WBC 7.99 K/ul (4.8-10.8) 08/08/23 Hgb 14.2 g/dl (14.0-18.0) 08/08/23 Hct 40.4 % (42.0-52.0) L 08/08/23 Plt Count 102 K/uL (130-400) L 08/08/23 Neutrophils (%) (Auto) 50.4 % 08/08/23 Lymphocytes (%) (Auto) 39.3 % 08/08/23 Monocytes # (Auto) 0.60 K/uL (0.11-0.59) H 08/08/23 Eosinophils # (Auto) 0.12 K/uL (0.00-0.50) 08/08/23 Immature Granulocyte % (Auto) 0.3 % 08/08/23 Neutrophils # (Auto) 4.03 K/uL (1.40-6.50) 08/08/23 Lymphocytes # (Auto) 3.14 K/uL (1.20-3.40) 08/08/23 Monocytes # (Auto) 0.60 K/uL (0.11-0.59) H 08/08/23 Eosinophils # (Auto) 0.12 K/uL (0.00-0.50) 08/08/23 Basophils # (Auto) 0.08 K/uL (0.00-0.20) 08/08/23 Immature Granulocyte # (Auto) 0.02 K/uL (0.01-0.20) 4 Na 138 mmol/L (136-145) 08/08/23 K 3.5 mmol/L (3.5-5.1) 08/08/23 Cl 100 mmol/L (98-107) 08/08/23 CO2 25 mmol/L (21-32) 08/08/23 Anion Gap 13 (3-11) H 08/08/23 BUN 13 mg/dl (6-23) 08/08/23 Creatinine 0.60 mg/dl (0.6-1.4) 08/08/23 BUN/Creatinine Ratio 21.7 (10-20) H 08/08/23 Glucose Level 117 mg/dl (70-99(Fasting)) H 08/08/23 Ca 9.2 mg/dl (8.6-10.3) 08/08/23 Total Bilirubin 4.8 mg/dl (0.2-1.0) H 08/08/23 AST/SGOT 206 U/L (13-39) H 08/08/23 ALT/SGPT 97 U/L (7-52) H 08/08/23 Alkaline Phosphatase 88 U/L (34-104) 08/08/23 Total Protein 8.3 gm/dl (6.0-8.3) 08/08/23 Albumin 4.3 gm/dl (3.4-5.0) 08/08/23 Globulin 4.0 gm/dl (2.5-4.0) 08/08/23 Albumin/Globulin Ratio 1.1 (0.9-2) 08/08/23 PTT 36 Seconds (21-31) H 08/08/23 INR 1.6 (0.9-1.1) H 08/08/23 Code Status & VTE Plan Code Status FULL CODE VTE Prophylaxis Plan VTE Prophylaxis will be ordered: Yes Supervising Physician Co-Signing Physician Notes I have seen and discussed the case with the collaborating advanced practitioner. I agree with the above H&P. I have reviewed and confirmed the patients medical history, the findings on physical examination, and the patients diagnosis and treatment plan with VINAY and agree with the information documented. In short, Mr. Storey is a 32 year old male with history of alcohol misuse, alcoholic fatty liver disease being evelauted for cirrhosis, coagulopathy 2/2 liver disease, chronic anemia and other comorbidities who is admitted for concern of UGIB. He states that he experienced multiple episdodes of tarry stool and coffee ground emesis, however, no episodes since arrival to ED. Denies any abdominal pain, just reports sudden nausea with vomiting. Last drink at noon on 08/07. states that he had been successful with 1 month of sobriety however is uncontrolled insomnia has prompted his relapse. labs reviewed and appear hemoconcentrated compared to baseline. transaminitis, elevated Etoh 405.2, elevated lipase GENERAL APPEARANCE: AxOx4, anxious appearing, restless, disheveled HEENT: NC, AT. MMM. EOMI, oropharynx clear. mild scleral icterus NECK: Supple without lymphadenopathy. No stiffness or restricted ROM. HEART: tachycardia LUNGS: CTAB, moving air well. No crackles or wheezes are heard. ABDOMEN: Soft, nontender, nondistended with good bowel sounds heard. BACK: No CVAT, no obvious deformity. EXTREMITIES: Without cyanosis, clubbing or edema. NEUROLOGICAL: Grossly nonfocal. Alert and oriented, moving all 4 extremities. CN not formally tested but appear grossly intact. Skin: Warm and dry without any rash, mild jaundice #Hematemesis #Melena Scheduled for OP EGD given ?varices on imaging -Reports multiple episodes of hematemesis/melena. FOBT positive on arrival Hgb stable, however, question if hemoconcentrated given all cell counts are much higher than recent baselines s/p 1 L in ED, anticipate drop with repeat labs -type and cross CLD for now Protonix drip Gi consult Repeat H/H in evening NPO midnight #Acute alcohol intoxication #Alcohol use disorder -patient drinking 1L vodka a day, last drink 08/07 @ noon states he isn't addicted but rather struggles with insomnia -Gabapentin taper, ativan AWSS #Chronic Normocytic anemia #Chronic Coagulopathy iso liver disease INR 1.6, platelets 106 Hgb baseline appears to be 12-13 in OP records -trend CBC, no indication for platelet transfusion at this time #Transaminitis #Alcohol related fatty liver disease Last drink around noon 08/07, AST 206 > ALT 97, bili 4.8 Maddreys 26.9, MELD 18 Follows hepatology, imaging concerning for cirrhosis Continue IVF @ 125cc/hr -Trend CMP Repeat Lipase #Bipolar disorder #Insomnia prescribed Invega, however states he stopped taking as he "is not good with medications"--prescribed by addiction med followed by sleep med, pending sleep study Agreeable to psych consult for medication options to bridge to OP follow up, would like to discuss depot injection to not "have to take medications" Continue 300mg qhs gabapentin upon completion of above taper #tobacco abuse discussed cessation nicotine patch DVT SCDs I spent a total of 45 minutes coordinating, documenting, and providing care for this patient excluding time spent in the performance of separately billed services. All of the aforementioned completed outside of collaborating with the assigned advanced practitioner for a full treatment plan. I have reviewed the advanced practitioner's documentation, and I agree with, and take responsibility for the plan of care
[2023-08-08] MEDS ORDERED: PANTOprazole 40 MG in DEXTROSE 5% MINI-B 100 ML IV SCH (16:45)
[2023-08-08] MEDS: FOLIC ACID 1 MG in SYRINGE 9.8 ML IV STA (17:07)
[2023-08-08] MEDS: THIAMINE HCL 100 MG in SYRINGE 9 ML IV STA (17:08)
[2023-08-08] MEDS ORDERED: LORazepam 2 MG in SYRINGE 1 ML IV PRN (17:08)
[2023-08-08] MEDS ORDERED: Ativan IV Alcohol Withdrawal--Active Protocol IV PRN (17:08)
[2023-08-08] MEDS: PANTOprazole 80 MG in DEXTROSE 5% 100 ML IV ONE (17:08)
[2023-08-08] MEDS ORDERED: GABAPENTIN 1200MG ALCOHOL WITHDRAWAL LOAD PO STA (17:08)
[2023-08-08] MEDS ORDERED: SODIUM CHLORIDE 0.9% 250 ML IV PRN (17:11)
[2023-08-08] MEDS: PANTOPRAZOLE BOLUS/DRIP IV STA (17:12)
[2023-08-08 17:15] LABS: Lipase 169 U/L (11-82)
[2023-08-08] MEDS: LORazepam 3 MG in SYRINGE 1.5 ML IV PRN (17:42)
[2023-08-08] MEDS: PANTOprazole 40 MG in DEXTROSE 5% MINI-B 100 ML IV SCH (17:42)
[2023-08-08] MEDS: SODIUM CHLORIDE 0.9% 500 ML IV SCH (18:50)
[2023-08-08] MEDS: NICOTINE 14 MG/24 HR PATCH TD SCH (19:23)
[2023-08-08] MEDS: GABAPENTIN 600 MG TAB PO ONE (19:23)
[2023-08-08 19:42] LABS: Appearance Urine Clear (Clear); Bilirubin Urine Negative (Negative); Blood Urine Negative (Negative); Color Urine Yellow; Glucose Urine UA Negative (Negative); Ketones Urine Trace (Negative); Leukocyte Esterase Urine Negative (Negative); Nitrite Urine Negative (Negative); Protein Urine Negative (Negative); Specific Gravity Urine 1.008 (1.000-1.030); Urobilinogen Urine Positive (Negative); pH Urine 7.5 (4.5-7.5)
[2023-08-08] MEDS: LORazepam 1 MG in SYRINGE 0.5 ML IV PRN (19:51)
[2023-08-08] MEDS: SODIUM CHLORIDE 0.9% 1,000 ML IV SCH (20:42)
[2023-08-08] MEDS: GABAPENTIN 600 MG TAB PO SCH (22:42)
[2023-08-09] MEDS: MoRPHine SULFATE 4 MG/ML 1 ML CARP\\VIAL IV STA (04:39)
[2023-08-09 06:43] LABS: Alanine Aminotransferase 86 U/L (7-52); Albumin Globulin Ratio 1.1 (0.9-2); Albumin Level 3.6 gm/dl (3.4-5.0); Alkaline Phosphatase 64 U/L (34-104); Anion Gap 11 (3-11); Aspartate Aminotransferase 194 U/L (13-39); BUN Creatinine Ratio 21.6 (10-20); Bilirubin,Total 4.8 mg/dl (0.2-1.0); Blood Urea Nitrogen 11 mg/dl (6-23); Calcium 8.2 mg/dl (8.6-10.3); Carbon Dioxide 24 mmol/L (21-32); Chloride 106 mmol/L (98-107); Creatinine Clr Calc Pharmacy 220.6 ml/min; Est GFR (African American) > 150.0 ml/min; Est GFR (Non-African American) 140.2 ml/min; Globulin 3.3 gm/dl (2.5-4.0); Glucose 94 mg/dl (70-99(Fasting)); Lipase 119 U/L (11-82); Magnesium 1.7 mg/dl (1.7-2.4); Potassium 3.4 mmol/L (3.5-5.1); Sodium 141 mmol/L (136-145); Total Protein 6.9 gm/dl (6.0-8.3)
[2023-08-09 06:49] LABS: INR 1.7 (0.9-1.1); Prothrombin Time 17.7 Seconds (9.0-12.0)
[2023-08-09 07:11] LABS: Hematocrit (blood only) 35.3 % (42.0-52.0); Hemoglobin 12.6 g/dl (14.0-18.0); Mean Corpuscular Hemoglobin 32.8 pg (25.0-34.0); Mean Corpuscular Hgb Conc 35.7 g/dL (32.0-36.0); Mean Corpuscular Volume 91.9 fL (80.0-100.0); Mean Platelet Volume 9.5 fL (9.4-12.4); Platelet Count 61 K/uL (130-400); RDW Coefficient of Variation 16.7 % (11.5-14.5); RDW Standard Deviation 56.8 fL (36.4-46.3); Red Blood Count 3.84 M/uL (4.70-6.10); White Blood Count 5.05 K/ul (4.8-10.8)
[2023-08-09 07:13] LABS: Basophils # (auto) 0.03 K/uL (0.00-0.20); Basophils % (auto) 0.6 %; Eosinophils # (auto) 0.17 K/uL (0.00-0.50); Eosinophils % (auto) 3.4 %; Immature Granulocytes # (auto) 0.01 K/uL (0.01-0.20); Immature Granulocytes % (auto) 0.2 %; Lymphocytes # (auto) 2.73 K/uL (1.20-3.40); Lymphocytes % (auto) 54.1 %; Monocytes % (auto) 5.9 %; Neutrophils # (auto) 1.81 K/uL (1.40-6.50); Neutrophils % (auto) 35.8 %; Platelet Estimate Decreased (Normal)
[2023-08-09] MEDS: THIAMINE HCL 100 MG TAB PO SCH (08:08)
[2023-08-09] MEDS: FOLIC ACID 1 MG TAB PO SCH (08:08)
[2023-08-09] MEDS: ONDANSETRON INJ 2 MG/ML 2 ML VIAL IV PRN (08:31)
--- NOTE | 2023-08-09 11:07 | Gastrointestinal Consultation ---
Date of Consultation August 09, 2023 Assessment & Plan (1) Alcoholic hepatitis: (2) GIB (gastrointestinal bleeding): Plan -Continue IV PPI drip. -Keep NPO for EGD today if deemed acceptable by anesthesia. -US abdomen to assess for ascites/assess liver and bile ducts. -DF currently 31. Continue to monitor DF with daily PT/INR & CMP. -Continue to monitor CBC. -Continue alcohol withdrawal protocol. -Will need ongoing evaluation with Dr. Hernandes with [facility] upon discharge. Supervising Physician Co-Signing Physician Notes Agree with TALIB Burnett as above Interviewed and examined patient and agree with above Abd: Soft, NT, ND, +BS Continue current therapy and supportive care Proceed with EGD now History of Present Illness Reason for Consultation: "acute GIB in alcoholic" Attending Physician: Segun Izaguirre MD History of Present Illness Patient is a 32 yo male with PMH of HLD, lung nodules, compression frractures of the vertebrae, OCD, bipolar disorder, medical marijuana use, anxiety, alcoholism and fatty liver vs cirrhosis that is currently being worked up by Dr. Hernandes of [facility]. He is scheduled for a liver biopsy this month to clarify whether he has cirrhosis. He has an appointment for an EGD on 08/28/23. He notes he has been drinking a fifth of liquor daily recently. Yesterday he began vomiting a bright red blood and then started noting dark stools. He presented to the ED intoxicated on 08/07 with an ethyl alcohol level of 405.2. He notes he is working with an performance solutions specialist in [place]. He has no abdominal imaging during this visit. He notes worsening abdominal distention. He is noted to have an H/H of 12.6/35.3. He denies further hematemesis or melena today. INR 1.7 but this appears to be baseline for him. Platelet count is 61. T bili 4.8. AST 194. ALT 86. Admitted recently with pancytopenia. Discriminant function is 31.0. Allergies Allergy/AdvReac Type Severity Reaction Status Date / Time No Known Allergies Allergy Verified 08/09/23 12:13 Home Medications Medication Instructions Recorded Confirmed Type Medical Cannibus 1 dose inhalation DIRECTED PRN 06/14/23 08/08/23 History NEEDED folic acid 1 mg tablet 1 mg PO DAILY 06/14/23 08/08/23 History gabapentin 100 mg capsule 300 mg PO HS 06/14/23 08/08/23 History Patient History Medical History HTN (hypertension) Thrombocytopenia OCD (obsessive compulsive disorder) Insomnia Bipolar 1 disorder Tobacco abuse Alcohol dependence Compression fracture of T12 vertebra Compression fracture of L1 lumbar vertebra Hepatosplenomegaly Mixed hyperlipidemia Alcohol abuse Surgical History Hx of tonsillectomy Hx of colonoscopy 2015, WNL, internal hemorrhoids Social History Smoking Status: Current every day smoker Tobacco Type: Cigarettes Cigarettes Per Day: 10; Do You Dip or Chew Tobacco: No; Tobacco Cessation Education Requested by Patient: No Hx Alcohol Use: Yes Alcohol type: hard liquor Hx Substance Use: Yes Last Used Substance: Hours (ago) Preferred Language: Kyrgyz Communication Ability: Effective Steam Engineer Required: No Beliefs That Will Affect Care: None Current Living Situation: Alone Feels Safe at Home: Yes Safety Concerns: Feels Safe At This Time Assistive Devices: Glasses Review of Systems Constitutional: no fever and no chills Respiratory: no cough and no dyspnea Gastrointestinal: + hematemesis and + melena; no abdominal pain Psychiatric: + substance abuse Physical Exam Constitutional: well developed Respiratory: normal respiratory effort Cardiovascular: Rate/Rhythm: regular rate Gastrointestinal (Abdomen): normal bowel sounds, soft, nontender, no hepatosplenomegaly Psychiatric: Orientation: alert and oriented x 3 Results & Data Vital Signs (Past 12 Hours) Vital Signs Temp Pulse Resp BP Pulse Ox O2 Del Method 08/09/23 07:23 36.9 C 113 H 18 125/72 90 Room Air 08/09/23 03:24 36.8 C 103 H 18 131/80 92 Room Air PG Care Time/CCT Total # of Minutes Spent Total Time Spent with Patient: Total time spent is greater than 50% in coordination of care (as documented) at patient's floor/unit and/or counseling patient: Coding Level of Care Code None Diagnoses Alcoholic hepatitis K70.10 GIB (gastrointestinal bleeding) K92.2
--- NOTE | 2023-08-09 11:18 | Anesthesiology Consultation ---
Date of Service August 09, 2023 Assessment & Plan (1) Encounter for pre-operative examination: Chart Review Chart Review: Acceptable Risk for Surgery, Patient NOT seen in Pre Admission Testing and entry level java developer initiated Consults Requested none Proposed Anesthesia Anesthesia Type: MAC History Surgery Operation Date: 08/09/23 16:30 Proposed Procedures p Esophagogastroduodenoscopy Dr Dash Cullen Case, DO Height/Weight Height: 5 ft 9 in Weight: 85 kg Allergies Allergy/AdvReac Type Severity Reaction Status Date / Time No Known Allergies Allergy Verified 06/14/23 00:09 Medications Home Medications Medication Instructions Recorded Confirmed Last Taken Medical Cannibus 1 dose inhalation DIRECTED PRN 06/14/23 08/08/23 Unknown NEEDED folic acid 1 mg tablet 1 mg PO DAILY 06/14/23 08/08/23 Unknown gabapentin 100 mg capsule 300 mg PO HS 06/14/23 08/08/23 Unknown Active Medications Generic Name Dose Route Start Last Admin Trade Name Freq PRN Reason Stop Dose Admin Folic Acid 1 mg 08/09/23 09:00 08/09/23 08:08 Folic Acid 1 Mg Tab PO 09/08/23 08:59 Not Given DAILY PUJA Pantoprazole Sodium 40 mg/ 100 mls @ 20 mls/hr 08/08/23 16:45 08/09/23 08:36 Dextrose IV 09/07/23 16:44 8 mg/hr Q5H PUJA 20 mls/hr Administration 8 MG/HR Lorazepam 1 mg/ Syringe 1 mls @ 2 mls/min 08/08/23 17:08 08/08/23 19:51 IV 09/07/23 17:07 2 mls/min UD PRN Administration EtOH Withdrawal AWSS Score 6,7 Protocol Sodium Chloride 1,000 mls @ 125 mls/hr 08/08/23 20:45 08/09/23 04:21 Nss IV 09/07/23 20:44 125 mls/hr .Q8H PUJA Administration Miscellaneous 1 each 08/09/23 08:59 08/09/23 08:33 Remove Nicoderm Patch N/A 09/08/23 08:58 1 each DAILY@0859 PUJA Administration Nicotine 1 patch 08/08/23 17:30 08/09/23 08:33 Nicotine 14 Mg/24 Hr Patch TD 09/07/23 17:29 1 patch QAM PUJA Administration Ondansetron HCl 4 mg 08/08/23 17:30 08/09/23 08:31 Ondansetron Inj 2 Mg/Ml 2 Ml Vial IV 09/07/23 17:29 4 mg Q6H PRN Administration Nausea Thiamine HCl 100 mg 08/09/23 09:00 08/09/23 08:08 Thiamine Hcl 100 Mg Tab PO 09/08/23 08:59 Not Given QAM PUJA NPO Date Last Intake of Fluids: 08/08/23 Time Last Intake of Fluids: 23:59 Past Medical History Medical History HTN (hypertension) Thrombocytopenia OCD (obsessive compulsive disorder) Insomnia Bipolar 1 disorder Tobacco abuse Alcohol dependence Compression fracture of T12 vertebra Compression fracture of L1 lumbar vertebra Hepatosplenomegaly Mixed hyperlipidemia Alcohol abuse Past Surgical History Surgical History Hx of tonsillectomy Hx of colonoscopy 2014, WNL, internal hemorrhoids Social History Smoking Status: Current every day smoker Smoking cigarettes per day: 10 Do You Dip or Chew Tobacco: No Hx Alcohol Use: Yes Alcohol type: hard liquor alcohol intake frequency: 3 or more drinks per day Hx Substance Use: Yes substance use type: marijuana Last Used Substance: Hours (ago) Physical Exam Vital Signs Last Vital Signs Temp 36.9 C 08/09/23 07:23 Pulse 113 H 08/09/23 07:23 Resp 18 08/09/23 07:23 BP 125/72 08/09/23 07:23 Pulse Ox 90 08/09/23 07:23 O2 Del Method Room Air 08/09/23 07:23 Testing Laboratory Results 08/09/23 05:38 08/09/23 05:38 PT 17.7 Seconds (9.0-12.0) H 08/09/23 05:38 INR 1.7 (0.9-1.1) H 08/09/23 05:38 APTT 36 Seconds (21-31) H 08/08/23 15:08 Urine Color Yellow 08/08/23 19:20 Urine Appearance Clear (Clear) 08/08/23 19:20 Urine pH 7.5 (4.5-7.5) 08/08/23 19:20 Ur Specific [place] 1.008 (1.000-1.030) 08/08/23 19:20 Urine Protein Negative (Negative) 08/08/23 19:20 Urine Glucose (UA) Negative (Negative) 08/08/23 19:20 Urine Ketones Trace (Negative) H 08/08/23 19:20 Urine Nitrite Negative (Negative) 08/08/23 19:20 Ur Leukocyte Esterase Negative (Negative) 08/08/23 19:20 Blood Type A Positive 08/08/23 15:08 Antibody Screen NEGATIVE 08/08/23 15:08 Electrocardiogram Date: 06/13/23 Test Reason : Blood Pressure : / mmHG Vent. Rate : 085 BPM Atrial Rate : 085 BPM P-R Int : 158 ms QRS Dur : 094 ms QT Int : 404 ms P-R-T Axes : 068 070 049 degrees QTc Int : 480 ms Normal sinus rhythm Prolonged QT Abnormal ECG No previous ECGs available Confirmed by Evens Trammell ([id number]) on 06/14/2023 9:51:46 PM Chest X-Ray Date: 06/13/23 XR chest 1V portable HISTORY: 32 years-old Male weakness acute weakness COMPARISON: None TECHNIQUE: AP view of the chest FINDINGS: Cardiomediastinal and hilar silhouettes are within normal limits. No pneumothorax, pleural effusion or airspace consolidation. The bones appear intact. IMPRESSION: No acute pro
--- NOTE | 2023-08-09 13:17 | GI REPORT ---
Patient Name: Esdras Storey Procedure Date: 08/09/2023 12:42 PM Date of : 1990 Admit Type: Inpatient Age: 32 Gender: Male Attending MD: Eren Bowling DO, Procedure: Upper GI endoscopy Providers: Eren Bowling DO Referring MD: Segun Izaguirre Md Indications: Melena Medicines: Monitored Anesthesia Care Complications: No immediate complications. Estimated Blood Loss: Estimated blood loss: none. Procedure: Pre-Anesthesia Assessment: - Prior to the procedure, a History and Physical was performed, and patient medications and allergies were reviewed. The patient's tolerance of previous anesthesia was also reviewed. The risks and benefits of the procedure and the sedation options and risks were discussed with the patient. All questions were answered, and informed consent was obtained. Prior Anticoagulants: The patient has taken no anticoagulant or antiplatelet agents. ASA Grade Assessment: III - A patient with severe systemic disease. After reviewing the risks and benefits, the patient was deemed in satisfactory condition to undergo the procedure. After obtaining informed consent, the endoscope was passed under direct vision. Throughout the procedure, the patient's blood pressure, pulse, and oxygen saturations were monitored continuously. The Endoscope was introduced through the mouth, and advanced to the second part of duodenum. The upper GI endoscopy was accomplished without difficulty. The patient tolerated the procedure well. Findings: Grade I varices were found in the lower third of the esophagus. They were 3 mm in largest diameter. A small hiatal hernia was present. Severe portal hypertensive gastropathy was found in the stomach. Biopsies were taken with a cold forceps for histology. The examined duodenum was normal. Impression: - Grade I esophageal varices. - Small hiatal hernia. - Portal hypertensive gastropathy. Biopsied. - Normal examined duodenum. Recommendation: - [facility]. - Advance diet as tolerated. - Continue present medications. - F/U with Dr. Hernandes as an outpatient for further Hepatology care Eren Bowling DO 08/09/2023 1:17:21 PM This report has been signed electronically. Note Initiated On: 08/09/2023 12:42 PM Number of Addenda: 0 I attest to the content of the Intraoperative Record and orders documented therein, exceptions below {[id number]}
--- NOTE | 2023-08-09 13:49 | Communication Note ---
Date of Service: August 09, 2023 Patient underwent an EGD on 08/09/23 and was noted to have grade 1 esophageal varices and portal hypertensive gastropathy. Would continue IV Protonix gtt, begin Carafate 1 gm QID, antibiotics x 5 days (currently on Ceftriaxone), and initiate Nadolol 20 mg daily. We will await an updated liver ultrasound. He will need close follow-up with his cover mat machine operator, Dr. Hernandes, at [facility].
--- NOTE | 2023-08-09 13:59 | Anesthesiology Progress Note ---
Date of Service August 09, 2023 Anesthesia Post Procedure Vital Signs Vital Signs: Temp Pulse Pulse Pulse Resp BP BP 08/09/23 13:48 104 H 18 138/87 08/09/23 13:29 106 H 18 123/71 08/09/23 13:14 98 H 16 105/52 L 08/09/23 12:13 37.2 C 119 H 16 144/99 H 08/09/23 07:23 36.9 C 113 H 18 125/72 08/09/23 03:24 36.8 C 103 H 18 131/80 08/08/23 22:53 37.0 C 105 H 18 113/69 08/08/23 22:04 94 H 08/08/23 19:27 36.7 C 117 H 16 125/82 08/08/23 18:31 36.8 C 104 H 16 152/94 H 08/08/23 18:02 108 H 16 100/77 08/08/23 17:11 91 H 19 141/82 H 08/08/23 17:00 85 18 141/82 H 08/08/23 16:30 105 H 21 156/111 H 08/08/23 16:14 109 H 08/08/23 14:56 37.1 C 125 H 20 163/87 H Pulse Ox O2 Del Method 08/09/23 13:48 94 Room Air 08/09/23 13:29 95 Room Air 08/09/23 13:14 96 Room Air 08/09/23 12:13 95 Room Air 08/09/23 07:23 90 Room Air 08/09/23 03:24 92 Room Air 08/08/23 22:53 94 Room Air 08/08/23 22:04 08/08/23 19:27 94 Room Air 08/08/23 18:31 98 Room Air 08/08/23 18:02 93 Room Air 08/08/23 17:11 97 Room Air 08/08/23 17:00 95 Room Air 08/08/23 16:30 96 Room Air 08/08/23 16:14 08/08/23 14:56 95 Room Air Pain Intensity Abdomen: Pain Intensity: 3 Transfer of Care Handoff Completed per policy Notes Mental Status: alert / awake / arousable and participated in evaluation Patient Amnestic to Procedure: Yes Nausea / Vomiting: adequately controlled Pain: adequately controlled Airway Patency, RR, SpO2: stable & adequate BP & HR: stable & adequate Hydration State: stable & adequate Anesthetic Complications: no major complications apparent
--- NOTE | 2023-08-09 14:19 | Communication Note ---
Date of Service: August 09, 2023 Psychiatry consulted for general evaluation, insomnia, MAT recs. Arrived to room at 12:30pm and 2:15pm; pt n/a, away for diagnostic procedures. Will follow-up tomorrow.
--- NOTE | 2023-08-09 14:25 | Ultrasound Report ---
ABDOMINAL ULTRASOUND, RIGHT UPPER QUADRANT HISTORY: Elevated LFTs Fatty liver vs cirrhosis, distended abdomen. COMPARISON: 06/12/2021. FINDINGS: Pancreas: The pancreas is mostly obscured by bowel gas. Liver: Heterogeneous and enlarged measuring up to 18 cm. No definite marginal nodularity. No discrete hepatic mass identified. Mildly increased echogenicity of the parenchyma. Gallbladder: Borderline wall thickening, 4 mm. Sludge filled gallbladder. No gallstones. CBD: 0.4 cm. Right kidney: No hydronephrosis. Spleen is enlarged, 17.7 cm. IMPRESSION: 1. Hepatosplenomegaly with findings suggestive of probable hepatic steatosis. 2. No hepatic mass identified. 3. Sludge-filled gallbladder with borderline wall thickening. No shadowing cholelithiasis or addition al evidence to suggest acute cholecystitis. ACT 112: Negative or not required by law. Electronically signed by: Reed Lambert M.D. 08/09/2023 2:23 PM
[2023-08-09] MEDS: ONDANSETRON INJ 2 MG/ML 2 ML VIAL ONE (14:49)
[2023-08-09] MEDS: MIDAZOLAM HCL 1 MG/ML 2ML VIAL ONE (14:49)
[2023-08-09] MEDS: LIDOCAINE 2% 2 ML VIAL/AMP(20MG/ML) INFIL ONE (14:49)
[2023-08-09] MEDS: PROPOFOL IV EMULSION 10 MG/ML 20 ML VIAL IV ONE ×2 (14:50→14:51)
[2023-08-09] MEDS: nadoloL 40 MG TAB PO SCH (14:51)
[2023-08-09] MEDS: GABAPENTIN 600 MG TAB PO SCH (14:52)
[2023-08-09] MEDS: cefTRIAXone SODIUM 2,000 MG/50 ML BAG IV SCH (14:53)
[2023-08-09] MEDS: SUCRALFATE 1 GM/10 ML UDC PO SCH (16:10)
--- OUTSIDE RECORDS SUMMARY | 2023-08-09 16:26 | External Medical Summary | Summary of Care ---
Author Name Unknown Organization [facility] Address [address] [place] [address] Phone [phone] Care Team Providers Care Bb Shot Packer Name Role Phone Tami Upton MD Primary Care Provi elena Reason for Visit * Reason Onset Date Comments Advice 07/13/2023 Encounter Details Date Type Department Care Team ([facility] st Contact Info) Description 07/13/2023 Telephone Family [address] [phone] Tami Upton MD [address] [place] [phone] Advice Allergies No known active allergiesdocumented as of this encounter (statuses as of 07/17/2023) Medications Medication Sig Dispensed Refills Start Date End Date Status Acetaminophen 500 MG Oral Tablet (Tylenol Extra Strength) Take 1 Tablet by mouth every 6 hours as needed. 0 Active Paliperidone ER 6 MG Oral Tablet Extended Release 24 Hour (Invega)Indications: Other insomnia Take 1 Tablet by mouth in the morning. 30 Tablet 0 06/26/2023 Active Gabapentin 100 MG Oral Capsule (Neurontin)Indicatio ns:Compression fracture of T12 vertebra, sequela,Compression fracture of L1 vertebra, sequela Take 1 Capsule by mouth in the morning and 1 Capsule at noon and 1 Capsule before bedtime. 90 Capsule 5 06/26/2023 Active Folic Acid 1 MG Oral Tablet Take 1 Tablet by mouth in the morning. 30 Tablet 2 06/26/2023 Active Melatonin 10 MG Oral Tablet Chewable Take by mouth. 0 Activ e documented as of this encounter (statuses as of 07/17/2023) Active Problems Problem Noted Date Diagnosed Date [...] as of this encounter (statuses as of 07/17/2023) Resolved Problems Problem Noted Date Diagnosed Date Resolved Date Alcohol withdrawal syndrome with complication 03/30/19 24 04/02/2023 Neutropenic fever 03/30/2023 04/02/2023 Acute alcoholic intoxication with complication 03/29/2023 03/30/2023 Leucopenia 03/29/2023 04/02/2023 Drug-induced liver injury 03/29/2023 Acute hyperactive alcohol withdrawal delirium 04/05/19 23 03/30/2023 documented as of this encounter (statuses as of 07/17/2023) Immunizations Name Administration Dates Next Due Pneumococcal Conjugate Vaccine, 20-valent (Prevn ar20) 01/31/2023 Seasonal Influenza, PF, 6 M & above, IM , (FluLaval or Fluzone) 11/24/2022 TDAP (age 10 and older)(Boostrix) 01/31/2023 TDAP (age 11 and older)(Adacel) 08/08/2011 documented as of this encounter Social History Tobacco Use Types Packs/Day Years Used Date Smoking Tobacco: Every Day Cigarettes 0.5 20.4 Started: 2003 Smokeless Tobacco: Never Alcohol Use Standard Drinks/Week Comments Not Currently 0 (1 standard drink = 0.6 oz pure alcohol) alcohol use disorder, last use 06/09/23 Hunger Vital Sign Answer Date Recorded Within [...] encounter Miscellaneous Notes * Telephone Encounter - Tami Upton MD - 07/16/2023 10:11 AM EDT All info including completing PT should be in my office notes. Pre cert email was sent by [employer]. * Telephone Encounter - Maira Torres LPN - 07/15/2023 3:00 PM EDT Pre cert email sent to [facility] pre cert dept. * Telephone Encounter - Coni Schultz OSA - 07/13/2023 2:03 PM EDT Pt calling about the physical therapy referral and the information hat was being sent to the insurance company. States that it has not been sent over. States the insurance needs the information and he is now financially responsible for the MRI. Pt wondering what went wrong where with the order and to be seen to figure out what is going on. * Telephone Encounter - Ce Cotton OSA - 07/13/2023 1:12 PM EDT MRI 07/13/23 Pt came to [facility] for MRI's. Pt was scheduled for and MRI at 1:00 pm and at 1:45 for an additional MRI but they both were cancelled and the chart stated cancelled Template Process/Error and patient was not called to state MRI's appts were cancelled. Pt drove from [place]. The help desk operator put him on the schedule and the MRI's were completed on July 13, 2023. Not sure what needs to be done due to the message on the appt?? documented in this encounter Plan of Treatment Upcoming Encounters Date Type Department Care Team (Latest Contact Info) Description 08/12/2023 12:20 PM EDT Laboratory Laboratory Hem/Onc [address] [phone] [place] [address] [place] [address] 08/12/2023 1:00 PM EDT Office Visit Hematology Oncology [place] [address] [place] [phone] Rafael Metcalf PA-C [address] [place] [address] 08/28/2023 8:00 AM EDT Hospital Encounter ENDO [facility], Endoscopy Room [facility] [address] [place] [address] Scott Morillo DO [address] [place] [address] 08/28/2023 8:00 AM EDT - 08/28/2023 8:45 AM EDT Surgery ENDO [facility], Endoscopy Room [facility] [address] [place] [address] Scott Morillo DO [address] [place] [address] ESOPHAGOGASTRODUODENOSCOPY (EGD), FLEXIBLE, TRANSORAL, DIAGNOSTIC 08/29/2023 12:00 PM EDT Office Visit [address] [phone] Tami Upton MD [address] [place] [phone] 12/24/2023 1:40 PM EDT Telemedicine Hepatology, [facility] [address] [place] [address] Katty Hernandes, DO [address] [place] [address] Scheduled Procedures Name Priority Associated Diagnoses Date/Ti me ESOPHAGOGASTRODUODENOSCOPY ( EGD), FLEXIBLE, TRANSORAL, DIAGNOSTIC Alcohol abuse Hepatic fibrosis 08/28/2023 8:00 AM EDT ESOPHAGOGASTRODUODENOSCOPY ( EGD), FLEXIBLE, TRANSORAL, ENDOSCOPIC ULTRASOUND Alcohol abuse Hepatic fibrosis 08/28/2023 8:00 AM EDT Health Maintenance Due Date Last Done Comments [...] Advance Directives occurred with: Patient Care Teams Bb Shot Packer Relationship Specialty Start Date End Date Tami Upton MD [address] [place] [phone] PCP - General Family Medicine 06/19/23 documented as of this encounter
--- OUTSIDE RECORDS SUMMARY | 2023-08-09 16:26 | External Medical Summary | Summary of Care ---
Author Name Unknown Organization [facility] Address [address] [place] [address] Phone [phone] Care Team Providers Care Jigsaw Operator Name Role Phone Tami Upton MD Primary Care Provi elena Reason for Visit * Reason Onset Date Comments Advice 07/10/2023 Encounter Details Date Type Department Care Team ([facility] st Contact Info) Description 07/10/2023 Telephone Family [address] [phone] Tami Upton MD [address] [place] [phone] Advice Allergies No known active allergiesdocumented as of this encounter (statuses as of 07/10/2023) Medications Medication Sig Dispensed Refills Start Date [...] as of this encounter (statuses as of 07/10/2023) Active Problems Problem Noted Date Diagnosed Date [...] as of this encounter (statuses as of 07/10/2023) Resolved Problems Problem Noted Date Diagnosed Date Resolved Date Alcohol withdrawal syndrome with complication 03/30/19 24 04/02/2023 Neutropenic fever 03/30/2023 04/02/2023 Acute alcoholic intoxication with complication 03/29/2023 03/30/2023 Leucopenia 03/29/2023 04/02/2023 Drug-induced liver injury 03/29/2023 Acute hyperactive alcohol withdrawal delirium 04/05/19 23 03/30/2023 documented as of this encounter (statuses as of 07/10/2023) Immunizations Name Administration Dates Next Due Pneumococcal Conjugate Vaccine, 20-valent (Prevn ar20) 01/31/2023 Seasonal Influenza, PF, 6 M & above, IM , (FluLaval or Fluzone) 11/24/2022 TDAP (age 10 and older)(Boostrix) 01/31/2023 TDAP (age 11 and older)(Adacel) 08/08/2011 documented as of this encounter Social History Tobacco Use Types Packs/Day Years Used Date Smoking Tobacco: Every Day Cigarettes 0.5 20.3 Started: 2003 Smokeless Tobacco: Never Alcohol Use [...] encounter Miscellaneous Notes * Telephone Encounter - Katerin Pena OSA - 07/10/2023 2:29 PM EDT Pt is calling and stating that his ins is stating that they need documentation that he finished physical therapy and the Dr. Upton still recommends MRI. Please advise. documented in this encounter Plan of Treatment Upcoming Encounters Date Type Department Care Team (Latest Contact Info) Description 08/12/2023 12:20 PM EDT Laboratory Laboratory Hem/Onc [facility] [address] [place] [phone] [facility] Med [address] [place] [address] 08/12/2023 1:00 PM EDT Office Visit Hematology Oncology [facility] [address] [place] [phone] Rafael Metcalf PA-C [address] [place] [address] 08/28/2023 8:00 AM EDT Hospital Encounter ENDO [facility], Endoscopy Room [facility] [address] [place], [place] [phone] Scott Morillo, DO [address] [place], [place] [address] 08/28/2023 8:00 AM EDT - 08/28/2023 8:45 AM EDT Surgery ENDO [facility], Endoscopy Room [facility] [address] [place] [phone] Scott Morillo, DO [address] [place], [place] [address] ESOPHAGOGASTRODUODENOSCOPY (EGD), FLEXIBLE, TRANSORAL, DIAGNOSTIC 08/29/2023 12:00 PM EDT Office Visit [address] [phone] Tami Upton MD [address] [place] [phone] 12/24/2023 1:40 PM EDT Telemedicine Hepatology, [facility] [address] [place], [place] [address] Katty Hernandes, DO [address] [place] [address] Scheduled Procedures Name Priority Associated Diagnoses Date/Ti [...] Advance Directives occurred with: Patient Care Teams Jigsaw Operator Relationship Specialty Start Date End Date Tami Upton MD [address] [place] [phone] PCP - General Family Medicine 06/19/23 documented as of this encounter
--- OUTSIDE RECORDS SUMMARY | 2023-08-09 16:26 | External Medical Summary | Summary of Care ---
Author Name Unknown Organization [facility] Address [address] [place] [address] Phone [phone] Care Team Providers Care Grants Officer Name Role Phone Tami Upton MD Primary Care Provi elena Reason for Visit * Reason Onset Date Comments Advice 07/10/2023 Encounter Details Date Type Department Care Team ([facility] st Contact Info) Description 07/10/2023 Telephone Family [address] [phone] Tami Upton MD [address] [place] [phone] Advice Allergies No known active allergiesdocumented [...] 07/10/2023) Immunizations Name Administration Dates Next Due DTaP Dipth/Tet/Acell Pertussis (Infanrix), Peds 08/22/1993,02/19/1990,03/27/1989,1988,1988 HIB PRP-T, 4 dose (ActHib) 11/27/1989 Hepatitis B, 0-19 yrs 10/11/1998,03/21/1998,01/02 MMR - Measles/Mumps/Rubella Vaccine 08/22/1993,1 OPV - Polio Virus Vaccine (Oral) 994,02/19/1990,1988,1988 Pneumococcal Conjugate Vacci ne, 20-valent ([id number]) 01/31/2023 Seasonal Influenza, PF, 6 M & [...] Telephone Encounter - Tami Upton MD - 07/10/2023 5:16 PM EDT If they need auth for his MRI can you please start this? You can fax my most recent office note * Telephone Encounter - Paola Cifuentes, MED ASSIST - 07/10/2023 3:04 PM EDT Please advise. * Telephone Encounter - Katerin Pena OSA [...] PM EDT Laboratory Laboratory Hem/Onc [place] [address] [place] [phone] [place], [place] [address] [address] [place] [address] 08/12/2023 1:00 PM EDT Office Visit Hematology Oncology [facility] [address] [place] [address] Rafael Metcalf PA-C [address] [place] [address] 08/28/2023 8:00 AM EDT Hospital Encounter ENDO [facility], Endoscopy Room [facility] [address] [place] [phone] Scott Morillo, DO [address] [place], [place] [address] 08/28/2023 8:00 AM EDT - 08/28/2023 8:45 AM EDT Surgery ENDO [facility], Endoscopy Room [facility] [address] [place] [phone] Scott Morillo, DO [address] [place] [address] ESOPHAGOGASTRODUODENOSCOPY (EGD), FLEXIBLE, TRANSORAL, DIAGNOSTIC 08/29/2023 12:00 PM EDT Office Visit [facility] [address] [place] [address] Tami Upton MD [address] [facility] [place] [phone] 12/24/2023 1:40 PM EDT Telemedicine Hepatology, [facility] [address] [place] [address] Katty Hernadnes DO [address] [place] [address] Scheduled Procedures Name Priority Associated Diagnoses Date/Ti [...] Advance Directives occurred with: Patient Care Teams Grants Officer Relationship Specialty Start Date End Date Tami Upton MD [address] [place] [phone] PCP - General Family Medicine 06/19/23 documented as of this encounter
--- OUTSIDE RECORDS SUMMARY | 2023-08-09 16:26 | External Medical Summary | Summary of Care ---
Author Name Unknown Organization [facility] Address [address] [place] [facility] [place] [address] Phone [phone] Care Team Providers Care Drill Press Operator Numerical Control Name Role Phone Cory Ross PA-C Primary Care Provider + [phone] Reason for Visit * Reason Comments Pain Low/mid back Limited Range Of Motion Low/mid back Muscle Weakness Low/mid back * Evaluate & Treat - Unlimited Visits (Within 10 days (routine)) - Authorized Specialty Diagnoses / Procedures Referred By Danielle luong Referred To Contact Physical Medicine And Rehab Diagnoses Compression fracture of T12 vertebra, sequela Wedge compression fracture of first lumbar vertebra, sequela Procedures EVALUATE & TREAT Katherine Schmitt PA-C [address] [place] [phone] Referral ID Status Reason Start Date Expiration Date Visits Requested Visits Authorized [id number] Authorized Specialty Services Required 06/04/2023 08/09/2023 5 5 Encounter Details Date Type Department Care Team (Latest Contact Info) Description 06/19/2023 2:30 PM EDT Rehab Services Physical Therapy [address] [phone] Elise Garza, HISTORY TUTOR [address] [place] [address] T12 compression fracture, sequela*; Compression fracture of L1 lumbar vertebra, sequela; Chronic midline low back pain without sciatica; Muscle tightness; Muscle weakness Allergies No known active allergiesdocumented as of this encounter (statuses as of 06/19/2023) Medications Medication Sig Dispensed Refills Start Date [...] as of this encounter (statuses as of 06/19/2023) Active Problems Problem Noted Date Diagnosed Date [...] as of this encounter (statuses as of 06/19/2023) Resolved Problems Problem Noted Date Diagnosed Date Resolved Date Alcohol withdrawal syndrome with complication 03/30/19 24 04/02/2023 Neutropenic fever 03/30/2023 04/02/2023 Acute alcoholic intoxication with complication 03/29/2023 03/30/2023 Leucopenia 03/29/2023 04/02/2023 Drug-induced liver injury 03/29/2023 Acute hyperactive alcohol withdrawal delirium 04/05/19 23 03/30/2023 documented as of this encounter (statuses as of 06/19/2023) Immunizations Name Administration Dates Next Due Pneumococcal [...] this encounter Progress Notes * Elise Garza, HISTORY TUTOR - 06/19/2023 2:35 PM EDT Outpatient Physical Therapy Daily Progress Note Physical Therapy [address] [phone] Patient Name: Esdras Storey Date of : 1990 Age: [age] year old Date: 06/19/2023 Start of Care: 05/09/2023 Plan of Care Expiration Date: 06/20/2023 Visit Number: 8 Subjective: Patient states he had a recent hospital admission and had a few platelet infusions while there. Pt states his low and mid back continue to bother him. States his pain is constant and can range from a 5-10/10 depending on what he is doing. Pt states he can only tolerate about an hour of standing activities such as cleaning, cooking, and conference center coordinator before he has to sit to stake a break. States he has been able to walk about a mile but that does increase his pain. States he also has increased pain with sitting for prolonged period of time. States he can only lift medium to dip painter objects. States he thinks he could lift a 50 lb bag of potatoes one time but that would cause inc reased pain. States he has been working on his exercises as able but they also cause pain. Pt states he tries to push through the pain to do the activities he needs to do. Pt states his apartment hasa pool and hopes to do water exercise once the pool opens. Pt states he would like to pursue a MRI and is going to make an appt with PCP regarding that. Objective: Pt performed 50 minutes of core, thoracic/scapula, and LE strengthening as per below exercise chart. Performed today Exercise Sets/repetitions Part of HEP Comments N SKTC 10x Y Y LTR 10x Y N Hamstring Stretch 3 x 20'' Y Y Hooklying hip abd S/D 20x, green Y Y Bridges 20x, green Y Y Supine Marching 30x, green Y Y SLR 2x10 Y Y Supine side crunch 10x Y Y Sidelying Clams 20x, green Y Y Bugs 5x10'' Y Y Open Books 10x Y N Seated forward flexion/diagonals 10x Y Y Cat/Camel 10x Y Y Thread the Needle 5x Y Y Seated Horizontal abd and diagonals 2x10, green Y Y Bilateral ER 20x, green Y Y Standing mid/low row 20x green Y N Barrel Stretch 3 x 15'' Y Y Pallof Press 15x each, green Y Y Squats 20x Y Y Side Stepping 4 x 10, green Y Y Monster Walks 4 x 10', green N Y Standing hip 3 way 10x each N Treatment completed under the direct supervision of Neetu Samuels, PT. Trunk ROM: Flexion = Fingertip to floor with central lumbar pain. Extension = 30 with central lumbar pain. Lateral Flexion = left WNL, right WNL; pain bilaterally. Rotation = left WNL, right WNL. Hamstring Flexibility: left 57, right 73. MMT: Hip: Flexion = left 5/5, right 5/5. Extension = left 4+/5, right 4+/5. Abduction = left 4+/5, right5/5. Knee: Extension = left 5/5, right 5/5. Flexion = left 5/5, right 5/5. Ankle: DF = left 5/5, right 5/5. PF = left 5/5, right 5/5. BALANCE TESTS: Single Leg Stance: left 30 sec, right 30 sec. FUNCTIONAL OUTCOME MEASURES: Oswestry Low Back Disability Questionnaire, Revised - score 26/50 equals 52% impairment. Tractor Engine Assembler Goals: 6 weeks Independent with Home Exercise Program -Partially Met Reduce pain to less than 4/10 at worst during all functional activities - Not Met Improve B LE strength by 1 full grade for weakened muscle groups - Met Improve score on Oswestry functional scale to less than 35% impairment - Not Met Assessment: Patient presents to PT with continued chronic low and mid back pain. Pt has had pain for about 10 years. Pt has made some progress but pain continues to be a constant 5-10/10 depending onwhat he is doing. Pt has increased pain with all activities and function. Pt does work through the pain to complete tasks he needs to do. Pt is only able to tolerate standing activities, ADLs, or conference center coordinator for about an hour before he needs to sit down. Pt is able to walk about a mile but this does increase his pain. Pt believes he is better slightly with function but continues to have painand would like to have a MRI to determine what is causing the pain. He has made some improvements with ROM, strength, and single leg stance. Pt was able to go through his exercises completing all repetitions asked but does have increased pain. Pt is most challenged with core exercises due to weakness. Pts HEP was updated. At this time pt has completed 8 visits of PT and has had to cancel a few appts due to other health issues. Pt has made some progress but continues to have significant pain so at this time he would like to pursue a MRI. Pt was encouraged to continue working on his HEP and is discharged for self maintenance. Pt is in agreement with plan. Plan: Discharge to [facility] for self maintenance. UNTIMED SERVICES: 0 MINUTES TIMED SERVICES: 50 MINUTES TOTAL TIMES: 50 MINUTES Elise Garza PTA 06/19/2023 2:35 PM documented in this encounter Plan of Treatment Upcoming Encounters Date Type Department Care Team (Late st Contact Info) Description 07/01/2023 2:20 PM EDT Telemedicine Sleep Disorders Ctr [facility] [address] [place] [phone] Dionna Uribe DO [address] [place] [address] 08/12/2023 12:20 PM EDT Laboratory Laboratory Hem/Onc [facility] [address] [place] [address] [facility] Med [address] [place] [address] 08/12/2023 1:00 PM EDT Office Visit Hematology Oncology [facility] [address] [place] [address] Rafael Metcalf PA-C [address] [place], [place] [phone] 08/29/2023 12:00 PM EDT Office Visit [address] [phone] Tami Upton MD [address] [place] [phone] Health Maintenance Due Date Last Done Comments Depression Screening 08/05/2015 08/04/2014 COVID-19 Vaccine ( - 2022-24 season) 2022 DTaP,Tdap,and Td Vaccines (8 - [...] Advance Directives occurred with: Patient Care Teams Drill Press Operator Numerical Control Relationship Specialty Start Date End Date Cory Ross PA-C [address] [place] [phone] PCP - General Physician Cushion Assembler 10/27/22 documented as of this encounter
--- OUTSIDE RECORDS SUMMARY | 2023-08-09 16:26 | External Medical Summary | Summary of Care ---
Author Name Unknown Organization [facility] Address [address] [place] [address] Phone [phone] Care Team Providers Care Manager Emergency Name Role Phone Tami Upton MD Primary Care Provi elena Reason for Visit * Reason Onset Date Comments Advice 07/10/2023 Encounter Details Date Type Department Care Team ([facility] st Contact Info) Description 07/10/2023 Telephone Family [address] [phone] Tami Upton MD [address] [place] [phone] Advice Allergies No known active allergiesdocumented as of this encounter (statuses as of 07/16/2023) Medications Medication Sig Dispensed Refills Start Date [...] as of this encounter (statuses as of 07/16/2023) Active Problems Problem Noted Date Diagnosed Date [...] as of this encounter (statuses as of 07/16/2023) Resolved Problems Problem Noted Date Diagnosed Date Resolved Date Alcohol withdrawal syndrome with complication 03/30/19 24 04/02/2023 Neutropenic fever 03/30/2023 04/02/2023 Acute alcoholic intoxication with complication 03/29/2023 03/30/2023 Leucopenia 03/29/2023 04/02/2023 Drug-induced liver injury 03/29/2023 Acute hyperactive alcohol withdrawal delirium 04/05/19 23 03/30/2023 documented as of this encounter (statuses as of 07/16/2023) Immunizations Name Administration Dates Next Due DTaP Dipth/Tet/Acell Pertussis (Infanrix), Peds 08/22/1993,02/19/1990,03/27/1989,1988,1988 HIB PRP-T, 4 dose (ActHib) 11/27/1989 Hepatitis B, 0-19 yrs 10/11/1998,03/21/1998,01/02 MMR - Measles/Mumps/Rubella Vaccine 08/22/1993,1 OPV - Polio Virus Vaccine (Oral) 994,02/19/1990,1988,1988 Pneumococcal Conjugate Vacci ne, 20-valent ([id number]) 01/31/2023 Seasonal Influenza, PF, 6 M & [...] encounter Miscellaneous Notes * Telephone Encounter - Maira Torres LPN - 07/15/2023 3:01 PM EDT Pre cert email sent to rad pre cert dept. * Telephone Encounter - Tami Upton MD - 07/10/2023 5:16 PM EDT If they need auth for his MRI can you please start this? You can fax my most recent office note * Telephone Encounter - Paola Cifuentes MED ASSIST - 07/10/2023 3:04 PM EDT [...] 08/12/2023 12:20 PM EDT Laboratory Laboratory Hem/Onc [facility] [address] [place] [address] [facility] [address] [place] [address] 08/12/2023 1:00 PM EDT Office Visit Hematology Oncology [facility] [address] [place] [address] Rafael Metcalf PA-C [address] [place] [address] 08/28/2023 8:00 AM EDT Hospital Encounter ENDO [facility], Endoscopy Room [facility] [address] [place] [phone] Scott Morillo DO [address] [place] [address] 08/28/2023 8:00 AM EDT - 08/28/2023 8:45 AM EDT Surgery ENDO [facility], Endoscopy Room [facility] [address] [place] [address] Scott Morillo, DO [address] [place] [address] ESOPHAGOGASTRODUODENOSCOPY (EGD), FLEXIBLE, TRANSORAL, DIAGNOSTIC 08/29/2023 12:00 PM EDT Office Visit [address] [phone] Tami Upton MD [address] [place] [phone] 12/24/2023 1:40 PM EDT Telemedicine Hepatology, [facility] [address] [place] [address] Katty Hernandes, 132 [facility] [place] [address] Scheduled Procedures Name Priority Associated Diagnoses Date/Ti [...] Advance Directives occurred with: Patient Care Teams Manager Emergency Relationship Specialty Start Date End Date Tami Upton MD [address] [place] [phone] PCP - General Family Medicine 06/19/23 documented as of this encounter
--- OUTSIDE RECORDS SUMMARY | 2023-08-09 16:26 | External Medical Summary | Summary of Care ---
Author Name Unknown Organization [facility] Address [address] [place] [address] Phone [phone] Care Team Providers Care Manager Cath Lab Name Role Phone Tami Upton MD Primary Care Provi elena Reason for Visit * Reason Onset Date Comments Advice 07/10/2023 Encounter Details Date Type Department Care Team ([facility] st Contact Info) Description 07/10/2023 Telephone Family [address] [phone] Tami Upton MD [address] [place] [phone] Advice Allergies No known active allergiesdocumented as of this encounter (statuses as of 07/15/2023) Medications Medication Sig Dispensed Refills Start Date [...] as of this encounter (statuses as of 07/15/2023) Active Problems Problem Noted Date Diagnosed Date [...] as of this encounter (statuses as of 07/15/2023) Resolved Problems Problem Noted Date Diagnosed Date Resolved Date Alcohol withdrawal syndrome with complication 03/30/19 24 04/02/2023 Neutropenic fever 03/30/2023 04/02/2023 Acute alcoholic intoxication with complication 03/29/2023 03/30/2023 Leucopenia 03/29/2023 04/02/2023 Drug-induced liver injury 03/29/2023 Acute hyperactive alcohol withdrawal delirium 04/05/19 23 03/30/2023 documented as of this encounter (statuses as of 07/15/2023) Immunizations Name Administration Dates Next Due DTaP Dipth/Tet/Acell Pertussis (Infanrix), Peds 08/22/1993,02/19/1990,03/27/1989,1988,1988 HIB PRP-T, 4 dose (ActHib) 11/27/1989 Hepatitis B, 0-19 yrs 10/11/1998,03/21/1998,01/02 MMR - Measles/Mumps/Rubella Vaccine 08/22/1993,1 OPV - Polio Virus Vaccine (Oral) 994,02/19/1990,1988,1988 Pneumococcal Conjugate Vacci ne, 20-valent ([id number]) 01/31/2023 Seasonal Influenza, PF, 6 M & [...] 08/12/2023 12:20 PM EDT Laboratory Laboratory Hem/Onc [facility] [address] [place] [address] [facility] [address] [place] [address] 08/12/2023 1:00 PM EDT Office Visit Hematology Oncology [facility] [address] [place] [address] Rafael Metcalf PA-C [address] [place] [address] 08/28/2023 8:00 AM EDT Hospital Encounter ENDO [facility], Endoscopy Room [facility] [address] [place] [phone] Scott Morillo DO [address] [place] [address] 08/28/2023 8:00 AM EDT - 08/28/2023 8:45 AM EDT Surgery ENDO [facility], Endoscopy Room [facility] [address] [place] [address] Scott Morillo, DO [address] [place] [address] ESOPHAGOGASTRODUODENOSCOPY (EGD), FLEXIBLE, TRANSORAL, DIAGNOSTIC 08/29/2023 12:00 PM EDT Office Visit [address] [phone] Tami Upton MD [address] [place] [phone] 12/24/2023 1:40 PM EDT Telemedicine Hepatology, [facility] [address] [place] [address] Katty Hernandes, 132 [facility] [place] [address] Scheduled Procedures Name Priority Associated Diagnoses Date/Ti [...] Directives occurred with: Patient Care Teams Manager Cath Lab Relationship Specialty Start Date End Date Tami Upton MD [address] [place] [phone] PCP - General Family Medicine 06/19/23 documented as of this encounter
--- OUTSIDE RECORDS SUMMARY | 2023-08-09 16:26 | External Medical Summary | Summary of Care ---
Author Name Unknown Organization [facility] Address [address] [place] [address] Phone [phone] Care Team Providers Care Chief Writer Name Role Phone Tami Upton MD Primary Care Provi elena Reason for Visit * Reason Onset Date Comments Advice 07/10/2023 Encounter Details Date Type Department Care Team ([facility] st Contact Info) Description 07/10/2023 Telephone Family [address] [phone] Tami Upton MD [address] [place] [phone] Advice Allergies No known active allergiesdocumented [...] (Oral) 994,02/19/1990,1988,1988 Pneumococcal Conjugate Vacci ne, 20-valent ([id number]) 01/31/2023 Seasonal Influenza, PF, 6 M & [...] encounter Miscellaneous Notes * Telephone Encounter - Paola Cifuentes MED [...] 08/12/2023 12:20 PM EDT Laboratory Laboratory Hem/Onc [facility] [address] [place] [phone] [place] [address] [address] [place] [address] 08/12/2023 1:00 PM EDT Office Visit Hematology Oncology [facility] [address] [place] [address] Rafael Metcalf PA-C [address] [place], [place] [phone] 08/28/2023 8:00 AM EDT Hospital Encounter ENDO [facility], Endoscopy Room [facility] [address] [place], [place] [phone] Scott Morillo, DO [address] [place] [address] 08/28/2023 8:00 AM EDT - 08/28/2023 8:45 AM EDT Surgery ENDO [facility], Endoscopy Room [facility] [address] [place] [phone] Scott Morillo, DO [address] [place], [place] [address] ESOPHAGOGASTRODUODENOSCOPY (EGD), FLEXIBLE, TRANSORAL, DIAGNOSTIC 08/29/2023 12:00 PM EDT Office Visit [address] [phone] Tami Upton MD [address] [place] [phone] 12/24/2023 1:40 PM EDT Telemedicine Hepatology, [facility] [address] [place] [address] Katty Hernandes DO [address] [place] [address] Scheduled Procedures Name Priority Associated Diagnoses Date/Ti [...] Advance Directives occurred with: Patient Care Teams Chief Writer Relationship Specialty Start Date End Date Tami Upton MD [address] [place] [phone] PCP - General Family Medicine 4/17/24 documented as of this encounter
--- OUTSIDE RECORDS SUMMARY | 2023-08-09 16:26 | External Medical Summary | Summary of Care ---
Author Name Unknown Organization [facility] Address [address] [place] [address] Phone [phone] Care Team Providers Care Addiction Psychiatrist Name Role Phone Tami Upton MD Primary Care Provi elena Encounter Details Date Type Department Care Team ([facility] st Contact Info) Description 06/19/2023 Documentation Physical Therapy [address] [place] [address] Neetu Samuels, PT [address] [place] [address] Allergies No known active allergiesdocumented as of [...] 2:20 PM EDT Telemedicine Sleep Disorders Ctr [facility] 132 [facility] [place] [phone] Dionna Uribe DO 132 [facility] [place] [address] 08/12/2023 12:20 PM EDT Laboratory Laboratory Hem/Onc [place] [address] [place] [phone] [place], [facility] [address] [place], [place] [address] 08/12/2023 1:00 PM EDT Office Visit Hematology Oncology [facility] [address] [place] [phone] Rafael Metcalf PA-C [address] [place], [place] [phone] 08/29/2023 12:00 PM EDT Office Visit [address] [phone] Tami Upton MD [address] [place] [phone] Health Maintenance Due Date Last Done Comments [...] Advance Directives occurred with: Patient Care Teams Addiction Psychiatrist Relationship Specialty Start Date End Date Tami Upton MD [address] [place] [address] PCP - General Family Medicine 06/19/23 documented as of this encounter
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
--- OUTSIDE RECORDS SUMMARY | 2023-08-09 16:26 | External Medical Summary | Summary of Care ---
Author Name Unknown Organization [facility] Address [address] [facility] [address] Phone [phone] Care Team Providers Care Metallurgical Technician Name Role Phone Cory Ross PA-C Primary Care Provider + [phone] Reason for Visit * Reason Onset Date Comments Hospital Follow-Up 06/17/2023 No KAILA needed Encounter Details Date Type Department Care Team ([facility] st Contact Info) Description 06/17/[address] [phone] Donya Reeves, RN Hospital Follow-Up (No KAILA needed) Allergies No known active allergiesdocumented as of this encounter (statuses as of 06/17/2023) Medications Medication Sig Dispensed Refills Start Date [...] as of this encounter (statuses as of 06/17/2023) Active Problems Problem Noted Date Diagnosed Date [...] as of this encounter (statuses as of 06/17/2023) Resolved Problems Problem Noted Date Diagnosed Date Resolved Date Alcohol withdrawal syndrome with complication 03/30/19 24 04/02/2023 Neutropenic fever 03/30/2023 04/02/2023 Acute alcoholic intoxication with complication 03/29/2023 03/30/2023 Leucopenia 03/29/2023 04/02/2023 Drug-induced liver injury 03/29/2023 Acute hyperactive alcohol withdrawal delirium 04/05/19 23 03/30/2023 documented as of this encounter (statuses as of 06/17/2023) Immunizations Name Administration Dates Next Due Pneumococcal [...] encounter Miscellaneous Notes * Telephone Encounter - Donya Reeves, RN - 06/17/2023 9:22 AM EDT Transitions of Care Note Reason for Referral:Recent Admission Phone visit for follow up: Inpatient Hospitalization Admitted to: [facility], Date: 06/14/23 Discharged to: home, Date: 06/15/23 KAILA call not indicated due to admitted < 24 hours. Donya Reeves, RN documented in this encounter Plan of Treatment Upcoming Encounters Date Type Department Care Team ([facility] Contact Info) Description 06/17/2023 2:30 PM EDT Rehab Services Physical Therapy [address] [place] [phone] Lyric Lynne, [address] [address] 06/19/2023 2:30 PM EDT Rehab Services Physical Therapy [address] [place] [phone] Elise Garza, DIETETIC TECHNICIAN [address] [place] [address] 07/01/2023 2:20 PM EDT Telemedicine Sleep Disorders Ctr [facility] [address] [place] [phone] Dionna Uribe DO [address] [place] [address] 08/12/2023 12:20 PM EDT Laboratory Laboratory Hem/Onc [facility] [address] [place] [address] [facility] Med[facility] [address] [place], [place] [id number] 08/12/2023 1:00 PM EDT Office Visit Hematology Oncology [facility] [address] [place] [address] Rafael Metcalf PA-C [address] [place], [place] [phone] 08/29/2023 12:00 PM EDT Office Visit [address] [phone] Tami Upton MD [address] [place] [phone] Health Maintenance Due Date Last Done [...] Advance Directives occurred with: Patient Care Teams Metallurgical Technician Relationship Specialty Start Date End Date Cory Ross PA-C [address] [place] [id number] PCP - General Physician Fire Sprinkler Service Technician 10/27/22 documented as of this encounter
--- OUTSIDE RECORDS SUMMARY | 2023-08-09 16:26 | External Medical Summary | Summary of Care ---
Author Name Unknown Organization [facility] Address [address] [place] [address] Phone [phone] Care Team Providers Care Hemodialysis Charge Nurse Name Role Phone Tami Upton MD Primary Care Provi elena Reason for Visit * Reason Onset Date Comments Advice 03/29/2023 Encounter Details Date Type Department Care Team (Late st Contact Info) Description 03/29/2023 Telephone Access Center, [facility] [address] [facility] *DO NOT REMOVE THIS DEPARTMENT* [place] [address] Services, Scheduling [address] [place] [address] Advice Allergies No known active allergiesdocumented as of this encounter (statuses as of 06/28/2023) Medications Medication Sig Dispensed Refills Start Date End Date Status Acetaminophen 500 MG Oral Tablet (Tylenol Extra Strength) Take 1 Tablet by mouth every 6 hours as needed. 0 Active documented as of this encounter (statuses as of 06/28/2023) Active Problems Problem Noted Date Diagnosed Date [...] as of this encounter (statuses as of 06/28/2023) Resolved Problems Problem Noted Date Diagnosed Date Resolved Date Alcohol withdrawal syndrome with complication 03/30/1904/02/2023 Neutropenic fever 03/30/2023 04/02/2023 Acute alcoholic intoxication with complication 03/29/2023 03/30/2023 Leucopenia 03/29/2023 04/02/2023 Drug-induced liver injury 03/29/2023 Acute hyperactive alcohol withdrawal delirium 04/05/1903/30/2023 documented as of this encounter (statuses as of 06/28/2023) Immunizations Name Administration Dates Next Due Pneumococcal [...] encounter Miscellaneous Notes * Telephone Encounter - Liliya Martinez OSA - 03/29/2023 3:55 PM EST from the [facility] would like to speak with a Chainer about the patient. can be contacted at [phone]. documented in this encounter Plan of Treatment Upcoming Encounters Date Type Department Care Team ([facility] st Contact Info) Description 07/01/2023 2:20 PM EDT Telemedicine Sleep Disorders Ctr [facility] 132 [facility] [place] [phone] Dionna Uribe, 132 [facility] [place] [address] 07/13/2023 1:00 PM EDT Imaging Radiology [address] [place] [address] 07/13/2023 1:45 PM EDT Imaging Radiology [address] [place] [address] 08/12/2023 12:20 PM EDT Laboratory Laboratory Hem/Onc [facility] [address] [place] [phone] [place] [address] [address] [place] [address] 08/12/2023 1:00 PM EDT Office Visit Hematology Oncology [facility] [address] [place] [phone] Rafael Metcalf PA-C [address] [place] [address] 08/29/2023 12:00 PM EDT Office Visit Family Practice [address] [phone] Tami Upton MD [address] [place] [phone] Health Maintenance Due Date Last Done Comments [...] Advance Directives occurred with: Patient Care Teams Hemodialysis Charge Nurse Relationship Specialty Start Date End Date Tami Upton MD [address] [place] [phone] PCP - General Family Medicine 06/19/23 documented as of this encounter
--- OUTSIDE RECORDS SUMMARY | 2023-08-09 16:26 | External Medical Summary | Summary of Care ---
Author Name Unknown Organization [facility] Address [address] [facility] [place] [address] Phone [phone] Care Team Providers Care Furniture Mechanic Name Role Phone Tami Upton MD Primary Care Provi elena Reason for Visit * Reason Comments NEW PATIENT Pt reports issues wi th his liver and spleen- referral from [facility] Encounter Details Date Type Department Care Team (Late st Contact Info) Description 07/09/2023 2:00 PM EDT Telemedicine Hepatology, [facility] [address] [place] [id number] Katty Hernandes DO [address] [facility] [place] [id number] Alcohol abuse*; Hepatic fibrosis Allergies No known active allergiesdocumented as of this encounter (statuses as of 07/09/2023) Medications Medication Sig Dispensed Refills Start Date [...] as of this encounter (statuses as of 07/09/2023) Active Problems Problem Noted Date Diagnosed Date [...] as of this encounter (statuses as of 07/09/2023) Resolved Problems Problem Noted Date Diagnosed Date Resolved Date Alcohol withdrawal syndrome with complication 03/30/19 24 04/02/2023 Neutropenic fever 03/30/2023 04/02/2023 Acute alcoholic intoxication with complication 03/29/2023 03/30/2023 Leucopenia 03/29/2023 04/02/2023 Drug-induced liver injury 03/29/2023 Acute hyperactive alcohol withdrawal delirium 04/05/19 23 03/30/2023 documented as of this encounter (statuses as of 07/09/2023) Immunizations Name Administration Dates Next Due Pneumococcal [...] as of this encounter Progress Notes * Katty Hernandes, - 07/09/2023 2:23 PM EDT Images from the original note were not included. Patient location: HOME. I was in a hospital or clinic location. After connecting through televideo,patient was verified with two unique identifiers. Patient (or authorized legal insurance sales representative) was then informed that this was a Telemedicine visit and being conducted confidentially over secure lines. Methods to assure confidentiality were taken. Patient acknowledged consent and understanding of pr ivacy and security of the Telemedicine visit. The patient agreed to participate. CC: concern for cirrhosis, alcohol abuse HPI: Esdras Storey is a 32 year old male referred by Tami Upton MD for further evaluation of liver disease. Seen by hepatology via telemedicine visit in [place] 04/11/2023 (Dr. Guthrie). He has PMHx of SANDI, OCD, alcohol use disorder among others. Patient was admitted to [facility] 03/29/23 - 04/02/23 for initially presenting with alcohol withdrawal butwas noted have abnormal lab work including thrombocytopenia and elevated liver chemistries for which GI was consulted. He had evidence of alcoholic hepatitis but with a low MELD of 9 there was no armando cation to treat with steroids. He was referred to MAT clinic for AUD for which he was started on acomprosate. Prior to this was drinking a litre of vodka per day - uses it to cope with insomnia/nightterrors. Has tried trazodone - stopped because it made him feel weird. Has not had insurance for 10years No family hx of liver disease or autoimmune diease. +1/2 PPD X 20 years. He states around 2.5-3 years ago is when he started getting withdrawals from alcohol. He states he drank heavily for over a decade. Was sober at one point for 5 1/2 years but then started drinking heavily again. Reports last drink was SaturdayJune 08. He states it was exactly 30 days ago. He states he quit because he was at [facility] because his gums wouldn't stop bleeding and his platelet count was below 10 and he had to get 2 blood transfusions. He states they were 66 after the blood transfusions. States he drank until he would run out of money. He states about 3 years ago was when he was firsttold he had elevated LFTs and he states they were in the 1000s at that time. MRI liver from 04/16 is concerning for cirrhosis with splenomegaly, small ascites, and small varices. He has never had a liver biopsy. He states he is following with an addiction medicine specialist in [place] and was recently diagnosed with Bipolar. He states he stopped taking acamprosate because his issue is insomnia and that's why he was drinking and that was not helping his insomnia. Past Medical History: Diagnosis Date INFORMATION viral menningitis age 3 Varicella without complication age 3 Current Outpatient Medications Medication Sig Dispense Refill Paliperidone ER 6 MG Oral Tablet Extended Release 24 Hour (Invega) Take 1 Tablet by mouth in the morning. 30 Tablet 0 Gabapentin 100 MG Oral Capsule (Neurontin) Take 1 Capsule by mouth in the morning and 1 Capsule at noon and 1 Capsule before bedtime. 90 Capsule 5 Folic Acid 1 MG Oral Tablet Take 1 Tablet by mouth in the morning. 30 Tablet 2 Melatonin 10 MG Oral Tablet Chewable Take by mouth. Acetaminophen 500 MG Oral Tablet (Tylenol Extra Strength) Take 1 Tablet by mouth every 6 hours as needed. No current facility-administered medications for this visit. 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 Tobacco Use Smoking status: Every Day Current packs/day: 0.50 Average packs/day: 0.5 packs/day for 20.3 years (10.2 ttl pk-yrs) Types: Cigarettes Start date: 2003 Smokeless tobacco: Never Vaping Use Vaping Use: Some days Substances: Nicotine, THC Devices: Disposable Substance and Sexual Activity Alcohol use: Not Currently Comment: alcohol use disorder, last use 06/09/23 Drug use: Yes Frequency: 28.0 times per week Types: Marijuana Comment: THC medical card 05/29/23 Sexual activity: Not on file Other Topics [...] History Problem Relation Age of Onset Other (asthma) Brother Other (alcohol) Brother Other (drug abuse) Brother Other (smoking) Brother Other (Other) Brother Other (skin disorders) Other denies any in family Review of Systems: Constitutional: No report of fever, chills, night sweats. There have been no non-intentional weightchanges. Eyes: No recent changes in visual acuity or blurring of vision. ENT: No change in auditory acuity, sense of smell or taste. CV: No chest pain, palpitations, dyspnea on exertion. Respiratory: No wheezing, cough, sputum production. : No dysuria, polyuria, change in urinary frequency. GI: Per HPI, otherwise negative. Psychiatric: No chronic changes in mood, affect or sensorium. Musculoskeletal: No myalgias, arthralgias, or joint pains. Neurological: No change in gait, change in maintenance of balance, neurologic injuries. Physical Exam- no vitals obtained as this was a video visit Well developed, well nourished male in no apparent distress. Eyes: Conjunctivae and sclerae are clear and non-icteric. Pulm: No respiratory distress Psychiatric: The patient is alert and oriented in all four spheres. Mood is euthymic. Affect is appropriate for the situation. Skin: No rashes were noted. Neuro: AAOx3 Labs: Reviewed MELD 3.0: 8 at 04/15/2023 11:36 AM Calculated from: Serum Creatinine: 0.7 mg/dL (Using min of 1 mg/dL) at 04/15/2023 11:36 AM Serum Sodium: 140 mmol/L (Using max of 137 mmol/L) at 04/15/2023 11:36 AM Total Bilirubin: 0.8 mg/dL (Using min of 1 mg/dL) at 04/15/2023 11:36 AM Serum Albumin: 3.8 g/dL (Using max of 3.5 g/dL) at 04/15/2023 11:36 AM INR(ratio): 1.2 at 04/15/2023 11:36 AM Age at listing (hypothetical): 32 years Sex: Male at 04/15/2023 11:36 AM Triglycerides <=174 mg/dL 192 High Comment: Triglyceride Reference Ranges (mg/dL): <150 Acceptable 150-174 Borderline high 175-499 High >=500 Very high Cholesterol <200 mg/dL 250 High Comment: Total Cholesterol Reference Ranges (mg/dL): <200 Desirable 200-239 Borderline high >=240 High HDL Cholesterol >39 mg/dL 32 Low Comment: HDL Cholesterol Reference Ranges (mg/dL): >=60 High (Desirable) <50 Low (Undesirable) For Females <40 Low (Undesirable) For Males Non-HDL Cholesterol <=159 mg/dL 218 High Comment: Non-HDL Cholesterol Reference Range (mg/dL): <100 Target level for high risk ASCVD patient <130 Optimal for general population 130-159 Near optimal for general population 160-189 Borderline High 190-219 High >=220 Very High LDL Cholesterol <=129 mg/dL 180 High Ferritin 30 - 400 ng/mL 526 High Component Ref Range & Units 3 mo ago Hepatitis C Antibody Negative Negative Hepatitis A Antibody IgM Negative Negative Hepatitis B Core Antibody IgM Negative Negative Hepatitis B Surface Antigen Negative Negative Hepatitis C Antibody Negative Negative Component Ref Range & Units 2 mo ago WBC 4.00 - 10.80 K/uL 5.98 RBC 4.50 - 5.25 M/uL 4.33 HGB 14.0 - 16.8 g/dL 13.3 Low HCT 40.0 - 48.4 % 40.3 MCV 82.0 - 99.5 fL 93.1 MCH 27.0 - 34.0 pg 30.7 MCHC 32.0 - 36.0 g/dL 33.0 RDW 11.5 - 15.5 % 16.2 PLT 140 - 400 K/uL 168 MPV 6.6 - 11.1 fL 10.3 nRBCs <=0 /100 WBCs 0 BUN 6 - 20 mg/dL 9 Creatinine 0.6 - 1.2 mg/dL 0.6 Estimated Glomerular Filtration Rate >=60 mL/min >90 Comment: eGFR is calculated based on the CKD-EPI 2020 equation Sodium 135 - 146 mmol/L 136 Potassium 3.5 - 5.1 mmol/L 4.4 Chloride 98 - 107 mmol/L 101 CO2 22 - 32 mmol/L 25 Anion Gap 7 - 15 mmol/L 10 Glucose 70 - 120 mg/dL 82 Albumin 3.8 - 5.0 g/dL 4.0 AST 10 - 50 U/L 311 High Alkaline Phosphatase 35 - 130 U/L 74 Bilirubin, Total <=1.2 mg/dL 1.1 Calcium 8.4 - 10.2 mg/dL 9.5 Protein 6.0 - 8.3 g/dL 7.4 ALT 10 - 50 U/L 282 High Component Latest Ref Rng 11/24/2022 03/28/2023 03/29/2023 04/15/2023 BUN 6 - 20 mg/dL 12 8 8 9 Creatinine 0.6 - 1.2 mg/dL 0.5 (L) 0.5 (L) 0.4 (L) 0.7 Estimated Glomerular Filtration Rate >=60 mL/min >90 >90 >90 >90 Sodium 135 - 146 mmol/L 141 141 136 140 Potassium 3.5 - 5.1 mmol/L 4.5 3.9 3.5 4.3 Chloride 98 - 107 mmol/L 104 98 98 103 CO2 22 - 32 mmol/L 23 26 21 (L) 27 Anion Gap 7 - 15 mmol/L 14 17 (H) 17 (H) 10 Glucose 70 - 120 mg/dL 83 85 99 99 Albumin 3.8 - 5.0 g/dL 4.8 5.0 4.3 3.8 AST 10 - 50 U/L 73 (H) 646 (H) 560 (H) 192 (H) Alkaline Phosphatase 35 - 130 U/L 49 116 105 70 Bilirubin, Total <=1.2 mg/dL 0.6 1.2 1.2 0.8 Calcium 8.4 - 10.2 mg/dL 9.8 9.2 9.0 9.4 Protein 6.0 - 8.3 g/dL 7.4 8.6 (H) 8.3 6.7 ALT 10 - 50 U/L 103 (H) 322 (H) 270 (H) 168 (H) Component Latest Ref Rng 04/22/2023 05/13/2023 BUN 6 - 20 mg/dL 9 9 Creatinine 0.6 - 1.2 mg/dL 0.6 0.5 (L) Estimated Glomerular Filtration Rate >=60 mL/min >90 >90 Sodium 135 - 146 mmol/L 136 144 Potassium 3.5 - 5.1 mmol/L 4.4 4.3 Chloride 98 - 107 mmol/L 101 106 CO2 22 - 32 mmol/L 25 19 (L) Anion Gap 7 - 15 mmol/L 10 19 (H) Glucose 70 - 120 mg/dL 82 95 Albumin 3.8 - 5.0 g/dL 4.0 4.1 AST 10 - 50 U/L 311 (H) 201 (H) Alkaline Phosphatase 35 - 130 U/L 74 72 Bilirubin, Total <=1.2 mg/dL 1.1 0.8 Calcium 8.4 - 10.2 mg/dL 9.5 9.2 Protein 6.0 - 8.3 g/dL 7.4 7.1 ALT 10 - 50 U/L 282 (H) 154 (H) Imaging: Reviewed MRI liver 04/16/2023: IMPRESSION Hepatomegaly. Liver measures 25 cm long. Appearance suggesting steatohepatitis. Marked splenomegaly. Spleen measures 19.3 cm long. 8 mm hypoenhancing focus. Small ascites. Small gastroesophageal varices. CT A/P 03/29/23 Liver is enlarged with diffuse marked fatty [...] small bowel are unremarkable. Stomach is unremarkable. Procedures: Reviewed Colonoscopy 03/24/2014 - The entire examined colon is normal. Biopsied. - The examined portion of the ileum was normal. - Internal hemorrhoids. Path: A. Colon, biopsy: Colonic mucosa with no diagnostic significance ASSESSMENT: Esdras Storey is a 32 year old male referred by Tami Upton MD for further evaluation of liver disease. Seen by hepatology via telemedicine visit in [place] 04/11/2023 (Dr. Guthrie). He hasPMHx of SANDI, OCD, alcohol use disorder among others. Plan: 1. History of alcohol abuse and concern for cirrhosis with ascites, varices, and splenomegaly on MRI imaging. Reports he was drinking 1 liter of vodka daily for over a decade. Reports last drink was exactly 30 days ago. Will obtain serological work up to exclude any other causes of liver disease. Hep B/C testing negative. Will also obtain an EGD given concern for varices on imaging and EUS guidedliver biopsy given concern for cirrhosis. He will definitely need a platelet count check before biopsy as he states his platelets were 10k last month at [facility] and he had to get 2 platelet transfusions. Will check MELD score. Discussed if he has cirrhosis he will need abdominal imaging with AFP every6 months. Discussed with cirrhosis we would refer for transplant if MELD score remains persistentlyabove 15 but he needs to remain sober for at least 6 months and engage in alcohol counseling. He states that he is following with an addiction medicine specialist in [place]. PETH ordered today as he reports last drink 30 days ago. 2. Vaccination. After determining the immune status for HAV/HBV, will recommend appropriate vaccines. 3. Alcohol abuse. I have advised the patient to abstain from drinking alcohol. The health risks imposed by heavy alcohol intake were discussed in detail. He states that he is following with an addiction medicine specialist in [place]. 4. 3 month follow up Kattyjonnie Hernandes DO Gastroenterology and Hepatology I spent a total of 45 minutes on the date of service in review of patient's record, and previously obtained information in person and appropriate medical visit, discussion and education of plan, withpatient and/or caregiver, placing orders for tests/referral/procedures as medically necessary and documentation of pertinent clinical information in patient's medical records for their visit today. documented in this encounter Nursing Notes * Valarie Adams LPN - 07/09/2023 2:06 PM EDT Chief Complaint Patient presents with NEW PATIENT Pt reports issues with his liver and spleen- referral from [facility] documented in this encounter Plan of Treatment Upcoming Encounters Date Type Department Care Team (Latest Contact Info) Description 07/13/2023 1:00 PM EDT Imaging Radiology [address] [facility] [place] [id number] 08/12/2023 12:20 PM EDT Laboratory Laboratory Hem/Onc [facility] [address] [place] [phone] [place] [address] [address] [place] [address] 08/12/2023 1:00 PM EDT Office Visit Hematology Oncology [facility] [address] [place] [phone] Rafael Metcalf PA-C [address] [facility] [place] [id number] 08/28/2023 8:00 AM EDT Hospital Encounter ENDO [facility], Endoscopy Room [facility] [address] [place] [phone] Scott Morillo DO [address] [place] [address] 08/28/2023 8:00 AM EDT - 08/28/2023 8:45 AM EDT Surgery ENDO [facility], Endoscopy Room [facility] [address] [place] [phone] Scott Morillo, DO [address] [place] [address] ESOPHAGOGASTRODUODENOSCOPY (EGD), FLEXIBLE, TRANSORAL, DIAGNOSTIC 08/29/2023 12:00 PM EDT Office Visit [address] [phone] Tami Upton MD [address] [place] [phone] 12/24/2023 1:40 PM EDT Telemedicine Hepatology, [facility] [address] [place] [address] Katty Hernandes, DO [address] [place] [id number] Scheduled Orders Name Type Priority Associated Diagnoses Order Schedule EGD, FLEXIBLE, DIAGNOSTIC Procedures Routine Alcohol abuse Hepatic fibrosis Ordered: 07/09/2023 ENDOSCOPIC Medical Imaging Routine Alcohol abuse Hepatic fibrosis Expected: 07/09/2023, Expires: 08/08/2024 ACTIN (SMOOTH MUSCLE) ANTIBODY (IGG) Lab Routine Alcohol abuse Hepatic fibrosis Expected: 07/09/2023, Expires: 07/08/2024 [id number], QN Lab Routine Alcohol abuse Hepatic fibrosis Expected: 07/09/2023, Expires: 07/08/2024 BASIC METABOLIC PANEL Lab Routine Alcohol abuse Hepatic fibrosis Expected: 07/09/2023, Expires: 07/08/2024 CBC WITH WBC DIFFERENTIAL Lab Routine Alcohol abuse Hepatic fibrosis Expected: 07/09/2023, Expires: 07/08/2024 CERULOPLASMIN Lab Routine Alcohol abuse Hepatic fibrosis Expected: 07/09/2023, Expires: 07/08/2024 FOLIC ACID Lab Routine Alcohol abuse Hepatic fibrosis Expected: 07/09/2023, Expires: 07/08/2024 FERRITIN Lab Routine Alcohol abuse Hepatic fibrosis Expected: 07/09/2023, Expires: 07/08/2024 HEPATIC FUNCTION PANEL Lab Routine Alcohol abuse Hepatic fibrosis Expected: 07/09/2023, Expires: 07/08/2024 HEPATITIS A ANTIBODIES IGG AND IGM Lab Routine Alcohol abuse Hepatic fibrosis Expected: 07/09/2023, Expires: 07/08/2024 HEPATITIS B SURFACE ANTIBODY Lab Routine Alcohol abuse Hepatic fibrosis Expected: 07/09/2023, Expires: 07/08/2024 IGA Lab Routine Alcohol abuse Hepatic fibrosis Expected: 07/09/2023, Expires: 07/08/2024 IRON SCREEN, INCLUDING TIBC Lab Routine Alcohol abuse Hepatic fibrosis Expected: 07/09/2023, Expires: 07/08/2024 PT INR Lab Routine Alcohol abuse Hepatic fibrosis Expected: 07/09/2023, Expires: 07/08/2024 MITOCHONDRIAL ANTIBODY Lab Routine Alcohol abuse Hepatic fibrosis Expected: 07/09/2023, Expires: 07/08/2024 SERUM PROTEIN ELECTROPHORESIS REFLEX PROFILE Lab Routine Alcohol abuse Hepatic fibrosis Expected: 07/09/2023, Expires: 07/08/2024 TISSUE TRANSGLUTAMINASE IGA ANTIBODY Lab Routine Alcohol abuse Hepatic fibrosis Expected: 07/09/2023, Expires: 07/08/2024 TSH Lab Routine Alcohol abuse Hepatic fibrosis Expected: 07/09/2023, Expires: 07/08/2024 PHOSPHATIDYLETHANOL, BLOOD Lab Routine Alcohol abuse Hepatic fibrosis Expected: 07/09/2023, Expires: 07/08/2024 Scheduled Procedures Name Priority Associated Diagnoses Date/Ti [...] of this encounter Visit Diagnoses Diagnosis Alcohol abuse- Primary Alcohol abuse, unspecified Hepatic fibrosis Cirrhosis of liver without mention of alcohol Alcohol abuse Alcohol abuse, unspecified Hepatic fibrosis Cirrhosis of liver without mention of alcohol documented in this encounter Advance Directives Latest Code Status on File Code Status Date Activated Date Inactivated Comments Full Code 03/29/2023 1:43 PM 04/02/2023 2:03 PM This order reflects the patients wishes and were consensually agreed upon. Question Answer Comments Discussion of Advance Directives occurred with: Patient Care Teams Furniture Mechanic Relationship Specialty Start Date End Date Tami Upton MD [address] [place] [phone] PCP - General Family Medicine 06/19/23 documented as of this encounter
--- NOTE | 2023-08-09 16:59 | Hospitalist Progress Note ---
Date of Service August 09, 2023 Assessment & Plan (1) GIB (gastrointestinal bleeding): (2) Acute alcohol abuse: (3) Alcohol intoxication: (4) Tobacco abuse: (5) Bipolar 1 disorder: (6) Insomnia: (7) HTN (hypertension): Plan 32 yo M with history of alcohol misuse, alcoholic fatty liver disease being evaluated for cirrhosis, coagulopathy 2/2 liver disease, chronic anemia and other comorbidities who is admitted for concern of UGIB. He states that he experienced multiple episodes of tarry stool and coffee ground emesis, however, no episodes since arrival to ED. Denies any abdominal pain, just reports sudden nausea with vomiting. Last drink at noon on 08/07. states that he had been successful with 1 month of sobriety however is uncontrolled insomnia has prompted his relapse. labs on admission - reviewed and appear hemoconcentrated compared to baseline. transaminitis, elevated Etoh 405.2, elevated lipase Hematemesis Melena Scheduled for OP EGD given ?varices on imaging -Reports multiple episodes of hematemesis/melena. FOBT positive on arrival Hgb stable, however, question if hemoconcentrated given all cell counts are much higher than recent baselines s/p 1 L in ED, anticipate drop with repeat labs -type and cross - monitor H&H Protonix drip GI consulted - s/p EGD EGD - Findings: Grade I varices were found in the lower third of the esophagus. They were 3 mm in largest diameter. A small hiatal hernia was present. Severe portal hypertensive gastropathy was found in the stomach. Biopsies were taken with a cold forceps for histology. The examined duodenum was normal. Impression: - Grade I esophageal varices. - Small hiatal hernia. - Portal hypertensive gastropathy. Biopsied. - Normal examined duodenum. Recommendation: - [facility]. - Advance diet as tolerated. - Continue present medications. - F/U with Dr. Hernandes as an outpatient for further Hepatology care Per GI - Patient underwent an EGD on 08/09/23 and was noted to have grade 1 esophageal varices and portal hypertensive gastropathy. Would continue IV Protonix gtt, begin Carafate 1 gm QID, antibiotics x 5 days (currently on Ceftriaxone), and initiate Nadolol 20 mg daily. We will await an updated liver ultrasound. 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 Hernandes, at [facility]. Acute alcohol intoxication Alcohol use disorder -patient drinking 1L vodka a day, last drink 08/07 @ noon states he isn't addicted but rather struggles with insomnia -Gabapentin taper, ativan AWSS Chronic Normocytic anemia Chronic Coagulopathy iso liver disease INR 1.6, platelets 106 on admission Hgb baseline appears to be 12-13 in OP records -trend CBC, no indication for platelet transfusion at this time Transaminitis Alcohol related fatty liver disease Last drink around noon 08/07, AST 206 > ALT 97, bili 4.8 Maddreys 26.9, MELD 18 on admission Follows hepatology, imaging concerning for cirrhosis -Trend CMP Lipase trending down Bipolar disorder Insomnia prescribed Invega, however states he stopped taking as he "is not good with medications"--prescribed by addiction med followed by sleep med, pending sleep study Agreeable to psych consult for medication options to bridge to OP follow up, would like to discuss depot injection to not "have to take medications" Continue 300mg qhs gabapentin upon completion of above taper Tobacco abuse discussed cessation nicotine patch DVT SCDs Dispo: tele PCP: Tami Upton MD, [place] FULL CODE Admission and Anticipated Discharge Date Admission Date: August 08, 2023 Subjective Pt seen in follow up of hematemesis, melena, alcohol intoxication/ abuse Currently sitting up in bed in [facility] Seen by GI and underwent EGD, results communicated to me by GI GUTIERREZ Discussed w/ RN at the bedside Currently no abd. pain, n/v no fever, chills, chest pain , shortness of breath Review of Systems Review of Systems: All systems reviewed & are unremarkable except as noted in Subjective Physical Exam Physical Exam: GENERAL: WD/WN young M in NAD HEENT: NC, AT. MMM. EOMI NECK: Supple HEART: rrr LUNGS: CTAB, moving air well. No crackles or wheezes are heard. ABDOMEN: Soft, nontender, nondistended, + bowel sounds BACK: No CVAT, no obvious deformity. EXTREMITIES: Without cyanosis, clubbing or edema. NEUROLOGICAL: Awake, alert, oriented, moving all 4 extremities. answers appropriately. Skin: Warm and dry Results & Data Results & Data Vital Signs (Past 12 Hours) Vital Signs Temp Pulse Pulse Resp BP Pulse Ox O2 Del Method 08/09/23 15:53 36.9 C 80 16 153/79 H 95 Room Air 08/09/23 13:48 104 H 18 138/87 94 Room Air 08/09/23 13:29 106 H 18 123/71 95 Room Air 08/09/23 13:14 98 H 16 105/52 L 96 Room Air 08/09/23 12:13 37.2 C 119 H 16 144/99 H 95 Room Air 08/09/23 07:23 36.9 C 113 H 18 125/72 90 Room Air Laboratory Results 08/09/23 08/08/23 08/08/23 Range/Units 05:38 22:46 19:20 WBC 5.05 (4.8-10.8) K/ul RBC 3.84 L (4.70-6.10) M/uL Hgb 12.6 L 12.0 L (14.0-18.0) g/dl Hct 35.3 L 34.0 L (42.0-52.0) % MCV 91.9 (80.0-100.0) fL MCH 32.8 (25.0-34.0) pg MCHC 35.7 (32.0-36.0) g/dL RDW Std Deviation 56.8 H (36.4-46.3) fL RDW Coeff of Joe 16.7 H (11.5-14.5) % Plt Count 61 L (130-400) K/uL MPV 9.5 (9.4-12.4) fL Immature Gran % (Auto) 0.2 % Neut % (Auto) 35.8 % Lymph % (Auto) 54.1 % Crowley % (Auto) 5.9 % Eos % (Auto) 3.4 % Baso % (Auto) 0.6 % Neut # (Auto) 1.81 (1.40-6.50) K/uL Lymph # (Auto) 2.73 (1.20-3.40) K/uL Crowley # (Auto) 0.30 (0.11-0.59) K/uL Eos # (Auto) 0.17 (0.00-0.50) K/uL Baso # (Auto) 0.03 (0.00-0.20) K/uL Immature Gran # (Auto) 0.01 (0.01-0.20) K/uL Platelet Estimate Decreased L (Normal) PT 17.7 H (9.0-12.0) Seconds INR 1.7 H (0.9-1.1) Sodium 141 (136-145) mmol/L Potassium 3.4 L (3.5-5.1) mmol/L Chloride 106 (98-107) mmol/L Carbon Dioxide 24 (21-32) mmol/L Anion Gap 11 (3-11) BUN 11 (6-23) mg/dl Creatinine 0.51 L (0.6-1.4) mg/dl Est Cr Clr Drug Dosing 220.6 ml/min Est GFR ( Amer) > 150.0 ml/min Est GFR (Non-Af Amer) 140.2 ml/min BUN/Creatinine Ratio 21.6 H (10-20) Glucose 94 (70-99(Fasting)) mg/dl Calcium 8.2 L (8.6-10.3) mg/dl Magnesium 1.7 (1.7-2.4) mg/dl Total Bilirubin 4.8 H (0.2-1.0) mg/dl AST 194 H (13-39) U/L ALT 86 H (7-52) U/L Alkaline Phosphatase 64 (34-104) U/L Total Protein 6.9 (6.0-8.3) gm/dl Albumin 3.6 (3.4-5.0) gm/dl Globulin 3.3 (2.5-4.0) gm/dl Albumin/Globulin Ratio 1.1 (0.9-2) Lipase 119 H (11-82) U/L Urine Color Yellow Urine Appearance Clear (Clear) Urine pH 7.5 (4.5-7.5) Ur Specific Olden 1.008 (1.000-1.030) Urine Protein Negative (Negative) Urine Glucose (UA) Negative (Negative) Urine Ketones Trace H (Negative) Urine Blood Negative (Negative) Urine Nitrite Negative (Negative) Urine Bilirubin Negative (Negative) Urine Urobilinogen Positive H (Negative) Ur Leukocyte Esterase Negative (Negative) Blood Type Antibody Screen Crossmatch 08/08/23 Range/Units 15:08 WBC (4.8-10.8) K/ul RBC (4.70-6.10) M/uL Hgb (14.0-18.0) g/dl Hct (42.0-52.0) % MCV (80.0-100.0) fL MCH (25.0-34.0) pg MCHC (32.0-36.0) g/dL RDW Std Deviation (36.4-46.3) fL RDW Coeff of Joe (11.5-14.5) % Plt Count (130-400) K/uL MPV (9.4-12.4) fL Immature Gran % (Auto) % Neut % (Auto) % Lymph % (Auto) % Crowley % (Auto) % Eos % (Auto) % Baso % (Auto) % Neut # (Auto) (1.40-6.50) K/uL Lymph # (Auto) (1.20-3.40) K/uL Crowley # (Auto) (0.11-0.59) K/uL Eos # (Auto) (0.00-0.50) K/uL Baso # (Auto) (0.00-0.20) K/uL Immature Gran # (Auto) (0.01-0.20) K/uL Platelet Estimate (Normal) PT (9.0-12.0) Seconds INR (0.9-1.1) Sodium (136-145) mmol/L Potassium (3.5-5.1) mmol/L Chloride (98-107) mmol/L Carbon Dioxide (21-32) mmol/L Anion Gap (3-11) BUN (6-23) mg/dl Creatinine (0.6-1.4) mg/dl Est Cr Clr Drug Dosing ml/min Est GFR ( Amer) ml/min Est GFR (Non-Af Amer) ml/min BUN/Creatinine Ratio (10-20) Glucose (70-99(Fasting)) mg/dl Calcium (8.6-10.3) mg/dl Magnesium (1.7-2.4) mg/dl Total Bilirubin (0.2-1.0) mg/dl AST (13-39) U/L ALT (7-52) U/L Alkaline Phosphatase (34-104) U/L Total Protein (6.0-8.3) gm/dl Albumin (3.4-5.0) gm/dl Globulin (2.5-4.0) gm/dl Albumin/Globulin Ratio (0.9-2) Lipase 169 H (11-82) U/L Urine Color Urine Appearance (Clear) Urine pH (4.5-7.5) Ur Specific Olden (1.000-1.030) Urine Protein (Negative) Urine Glucose (UA) (Negative) Urine Ketones (Negative) Urine Blood (Negative) Urine Nitrite (Negative) Urine Bilirubin (Negative) Urine Urobilinogen (Negative) Ur Leukocyte Esterase (Negative) Blood Type A Positive Antibody Screen NEGATIVE Crossmatch See Detail Medications Administered Current Inpatient Medications Folic Acid (Folic Acid 1 Mg Tab) 1 mg PO DAILY [facility] Stop: 09/08/23 08:59 Last Admin: 08/09/23 08:08 Dose: Not Given Gabapentin (Gabapentin 600 Mg Tab) 600 mg PO Q8H [facility] Stop: 08/10/23 05:16 Last Admin: 08/09/23 14:52 Dose: 600 mg Gabapentin (Gabapentin 600 Mg Tab) 600 mg PO Q12H [facility] Stop: 08/11/23 05:16 Gabapentin (Gabapentin 600 Mg Tab) 600 mg PO Q24H [facility] Stop: 08/12/23 05:16 Pantoprazole Sodium 40 mg/ (Dextrose) 100 mls @ 20 mls/hr IV Q5H [facility] Stop: 09/07/23 16:44 Last Admin: 08/09/23 14:52 Dose: 8 mg/hr, 20 mls/hr Lorazepam 1 mg/ Syringe 1 mls @ 2 mls/min IV UD PRN; Protocol PRN Reason: EtOH Withdrawal AWSS Score 6,7 Stop: 09/07/23 17:07 Last Admin: 08/08/23 19:51 Dose: 2 mls/min Lorazepam 2 mg/ Syringe 2 mls @ 2 mls/min IV UD PRN; Protocol PRN Reason: EtOH Withdrawal AWSS Score 8,9 Stop: 09/07/23 17:07 Sodium Chloride (Nss) 1,000 mls @ 125 mls/hr IV .Q8H [facility] Stop: 09/07/23 20:44 Last Admin: 08/09/23 14:52 Dose: 125 mls/hr Ceftriaxone Sodium (Rocephin) 2,000 mg in 50 mls @ 100 mls/hr IV Q24H [facility] Stop: 08/13/23 13:59 Last Infusion: 08/09/23 16:09 Dose: Infused Miscellaneous (Remove Nicoderm Patch) 1 each N/A DAILY@0859 [facility] Stop: 09/08/23 08:58 Last Admin: 08/09/23 08:33 Dose: 1 each Nadolol (Nadolol 40 Mg Tab) 20 mg PO [facility] Stop: 09/08/23 13:44 Last Admin: 08/09/23 14:51 Dose: 20 mg Nicotine (Nicotine 14 Mg/24 Hr Patch) 1 patch TD [facility] Stop: 09/07/23 17:29 Last Admin: 08/09/23 08:33 Dose: 1 patch Ondansetron HCl (Ondansetron Inj 2 Mg/Ml 2 Ml Vial) 4 mg IV Q6H PRN PRN Reason: Nausea Stop: 09/07/23 17:29 Last Admin: 08/09/23 08:31 Dose: 4 mg Sucralfate (Sucralfate 1 Gm/10 Ml Udc) 1 gm PO QID [facility] Stop: 09/08/23 16:59 Last Admin: 08/09/23 16:10 Dose: 1 gm Thiamine HCl (Thiamine Hcl 100 Mg Tab) 100 mg PO [facility] Stop: 09/08/23 08:59 Last Admin: 08/09/23 08:08 Dose: Not Given
[2023-08-09] MEDS: traMADol HCL 50 MG TABLET PO STA (19:59)
[2023-08-09] MEDS ORDERED: Nursing to Pharmacy Communication SCH (20:30)
--- NOTE | 2023-08-09 22:35 | Electrocardiogram Report ---
Test Reason : Blood Pressure : / mmHG Vent. Rate : 110 BPM Atrial Rate : 110 BPM P-R Int : 142 ms QRS Dur : 104 ms QT Int : 372 ms P-R-T Axes : 069 069 046 degrees QTc Int : 503 ms Sinus tachycardia Prolonged QT When compared with ECG of 13-JUN-2023 23:59, No significant change was found Confirmed by Evens Trammell ([id number]) on 08/09/2023 10:35:43 PM Referred By: REFERRED SELF Confirmed By:Evens Trammell
--- NOTE | 2023-08-10 07:30 | Hospitalist Progress Note ---
Date of Service August 10, 2023 Assessment & Plan (1) GIB (gastrointestinal bleeding): (2) Acute alcohol abuse: (3) Alcohol intoxication: (4) Tobacco abuse: (5) Bipolar 1 disorder: (6) Insomnia: (7) HTN (hypertension): Plan 32 yo M with history of alcohol misuse, alcoholic fatty liver disease being evaluated for cirrhosis, coagulopathy 2/2 liver disease, chronic anemia and other comorbidities who is admitted for concern of UGIB. He states that he experienced multiple episodes of tarry stool and coffee ground emesis, however, no episodes since arrival to ED. Denies any abdominal pain, just reports sudden nausea with vomiting. Last drink at noon on 08/07. states that he had been successful with 1 month of sobriety however is uncontrolled insomnia has prompted his relapse. labs on admission - reviewed and appear hemoconcentrated compared to baseline. transaminitis, elevated Etoh 405.2, elevated lipase Hematemesis Melena Scheduled for OP EGD given ?varices on imaging -Reports multiple episodes of hematemesis/melena. FOBT positive on arrival Hgb stable, however, question if hemoconcentrated given all cell counts are much higher than recent baselines s/p 1 L in ED, anticipate drop with repeat labs -type and cross - monitor H&H Protonix drip GI consulted - s/p EGD EGD - Findings: Grade I varices were found in the lower third of the esophagus. They were 3 mm in largest diameter. A small hiatal hernia was present. Severe portal hypertensive gastropathy was found in the stomach. Biopsies were taken with a cold forceps for histology. The examined duodenum was normal. Impression: - Grade I esophageal varices. - Small hiatal hernia. - Portal hypertensive gastropathy. Biopsied. - Normal examined duodenum. Recommendation: - Return patient to [facility] for ongoing care. - Advance diet as tolerated. - Continue present medications. - F/U with Dr. Hernandes as an outpatient for further Hepatology care Per GI - Patient underwent an EGD on 08/09/23 and was noted to have grade 1 esophageal varices and portal hypertensive gastropathy. Would continue IV Protonix gtt, begin Carafate 1 gm QID, antibiotics x 5 days (currently on Ceftriaxone), and initiate Nadolol 20 mg daily. We will await an updated liver ultrasound. 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 Hernandes, at [facility]. 6/8 dark stool yesterday and 1 episode of emesis yesterday. No abd. pain, feeling well, asking to advance diet. Will advance and will cont. to monitor. Acute alcohol intoxication Alcohol use disorder -patient drinking 1L vodka a day, last drink 08/07 @ noon states he isn't addicted but rather struggles with insomnia -Gabapentin taper, ativan AWSS Chronic Normocytic anemia Chronic Coagulopathy iso liver disease INR 1.6, platelets 106 on admission Hgb baseline appears to be 12-13 in OP records -trend CBC, no indication for platelet transfusion at this time Transaminitis Alcohol related fatty liver disease Last drink around noon 08/07, AST 206 > ALT 97, bili 4.8 Maddreys 26.9, MELD 18 on admission Follows hepatology, imaging concerning for cirrhosis -Trend CMP Lipase trending down Bipolar disorder Insomnia prescribed Invega, however states he stopped taking as he "is not good with medications"--prescribed by addiction med followed by sleep med, pending sleep study Agreeable to psych consult for medication options to bridge to OP follow up, would like to discuss depot injection to not "have to take medications" Continue 300mg qhs gabapentin upon completion of above taper Tobacco abuse discussed cessation nicotine patch DVT SCDs Dispo: tele PCP: Tami Upton MD, [place] FULL CODE Admission and Anticipated Discharge Date Admission Date: August 08, 2023 Subjective Pt seen in follow up of hematemesis, melena, alcohol intoxication/ abuse Currently sitting up in bed in [place] Seen by GI and underwent EGD yesterday Currently no abd. pain, n/v. Had some dark stool yesterday. had also one episode of bilious emesis yesterday. no fever, chills, chest pain , shortness of breath asking to advance diet - will advance to full liquid Cont. to monitor Review of Systems Review of Systems: All systems reviewed & are unremarkable except as noted in Subjective Physical Exam Physical Exam: GENERAL: WD/WN young M in NAD HEENT: NC, AT. MMM. EOMI NECK: Supple HEART: rrr LUNGS: CTAB, moving air well. No crackles or wheezes are heard. ABDOMEN: Soft, nontender, nondistended, + bowel sounds BACK: No CVAT, no obvious deformity. EXTREMITIES: Without cyanosis, clubbing or edema. NEUROLOGICAL: Awake, alert, oriented, moving all 4 extremities. answers appropriately. Skin: Warm and dry Results & Data Results & Data Vital Signs (Past 12 Hours) Vital Signs Temp Pulse Pulse Resp BP Pulse Ox O2 Del Method 08/10/23 07:02 36.7 C 71 18 145/85 H 94 Room Air 08/10/23 03:28 36.8 C 78 18 129/80 93 Room Air 08/09/23 22:31 36.8 C 75 18 149/93 H 94 Room Air 08/09/23 22:03 80 Laboratory Results 08/10/23 Range/Units 07:32 WBC 4.60 L (4.8-10.8) K/ul RBC 3.70 L (4.70-6.10) M/uL Hgb 12.1 L (14.0-18.0) g/dl Hct 33.9 L (42.0-52.0) % MCV 91.6 (80.0-100.0) fL MCH 32.7 (25.0-34.0) pg MCHC 35.7 (32.0-36.0) g/dL RDW Std Deviation 54.3 H (36.4-46.3) fL RDW Coeff of Joe 16.1 H (11.5-14.5) % Plt Count 47 L (130-400) K/uL MPV 10.6 (9.4-12.4) fL PT 20.0 H (9.0-12.0) Seconds INR 2.0 H (0.9-1.1) Sodium 134 L (136-145) mmol/L Potassium 3.1 L (3.5-5.1) mmol/L Chloride 101 (98-107) mmol/L Carbon Dioxide 26 (21-32) mmol/L Anion Gap 7 (3-11) BUN 4 L (6-23) mg/dl Creatinine 0.51 L (0.6-1.4) mg/dl Est Cr Clr Drug Dosing 204.1 ml/min Est GFR ( Amer) > 150.0 ml/min Est GFR (Non-Af Amer) 140.2 ml/min BUN/Creatinine Ratio 7.8 L (10-20) Glucose 83 (70-99(Fasting)) mg/dl Calcium 8.4 L (8.6-10.3) mg/dl Phosphorus 2.0 L (2.5-4.9) mg/dl Magnesium 1.3 L (1.7-2.4) mg/dl Total Bilirubin 6.2 H (0.2-1.0) mg/dl AST 173 H (13-39) U/L ALT 81 H (7-52) U/L Alkaline Phosphatase 59 (34-104) U/L Total Protein 6.7 (6.0-8.3) gm/dl Albumin 3.4 (3.4-5.0) gm/dl Globulin 3.3 (2.5-4.0) gm/dl Albumin/Globulin Ratio 1.0 (0.9-2) Medications Administered Current Inpatient Medications Folic Acid (Folic Acid 1 Mg Tab) 1 mg PO DAILY [facility] Stop: 09/08/23 08:59 Last Admin: 08/09/23 08:08 Dose: Not Given Gabapentin (Gabapentin 600 Mg Tab) 600 mg PO Q12H [facility] Stop: 08/11/23 05:16 Gabapentin (Gabapentin 600 Mg Tab) 600 mg PO Q24H [facility] Stop: 08/12/23 05:16 Pantoprazole Sodium 40 mg/ (Dextrose) 100 mls @ 20 mls/hr IV Q5H [facility] Stop: 09/07/23 16:44 Last Admin: 08/10/23 05:52 Dose: 8 mg/hr, 20 mls/hr Lorazepam 1 mg/ Syringe 1 mls @ 2 mls/min IV UD PRN; Protocol PRN Reason: EtOH Withdrawal AWSS Score 6,7 Stop: 09/07/23 17:07 Last Admin: 08/08/23 19:51 Dose: 2 mls/min Lorazepam 2 mg/ Syringe 2 mls @ 2 mls/min IV UD PRN; Protocol PRN Reason: EtOH Withdrawal AWSS Score 8,9 Stop: 09/07/23 17:07 Sodium Chloride (Nss) 1,000 mls @ 125 mls/hr IV .Q8H [facility] Stop: 09/07/23 20:44 Last Admin: 08/10/23 00:23 Dose: 125 mls/hr Ceftriaxone Sodium (Rocephin) 2,000 mg in 50 mls @ 100 mls/hr IV Q24H [facility] Stop: 08/13/23 13:59 Last Infusion: 08/09/23 16:09 Dose: Infused Miscellaneous (Remove Nicoderm Patch) 1 each N/A DAILY@0859 [facility] Stop: 09/08/23 08:58 Last Admin: 08/09/23 08:33 Dose: 1 each Nadolol (Nadolol 40 Mg Tab) 20 mg PO [facility] Stop: 09/08/23 13:44 Last Admin: 08/09/23 14:51 Dose: 20 mg Nicotine (Nicotine 14 Mg/24 Hr Patch) 1 patch TD [facility] Stop: 09/07/23 17:29 Last Admin: 08/09/23 08:33 Dose: 1 patch Ondansetron HCl (Ondansetron Inj 2 Mg/Ml 2 Ml Vial) 4 mg IV Q6H PRN PRN Reason: Nausea Stop: 09/07/23 17:29 Last Admin: 08/09/23 19:59 Dose: 4 mg Sucralfate (Sucralfate 1 Gm/10 Ml Udc) 1 gm PO QID [facility] Stop: 09/08/23 16:59 Last Admin: 08/09/23 20:00 Dose: 1 gm Thiamine HCl (Thiamine Hcl 100 Mg Tab) 100 mg PO [facility] Stop: 09/08/23 08:59 Last Admin: 08/09/23 08:08 Dose: Not Given
[2023-08-10 08:36] LABS: Hematocrit (blood only) 33.9 % (42.0-52.0); Hemoglobin 12.1 g/dl (14.0-18.0); Mean Corpuscular Hemoglobin 32.7 pg (25.0-34.0); Mean Corpuscular Hgb Conc 35.7 g/dL (32.0-36.0); Mean Corpuscular Volume 91.6 fL (80.0-100.0); Mean Platelet Volume 10.6 fL (9.4-12.4); Platelet Count 47 K/uL (130-400); RDW Coefficient of Variation 16.1 % (11.5-14.5); RDW Standard Deviation 54.3 fL (36.4-46.3)
[2023-08-10 08:49] LABS: Alanine Aminotransferase 81 U/L (7-52); Albumin Level 3.4 gm/dl (3.4-5.0); Alkaline Phosphatase 59 U/L (34-104); Anion Gap 7 (3-11); Aspartate Aminotransferase 173 U/L (13-39); BUN Creatinine Ratio 7.8 (10-20); Bilirubin,Total 6.2 mg/dl (0.2-1.0); Blood Urea Nitrogen 4 mg/dl (6-23); Calcium 8.4 mg/dl (8.6-10.3); Carbon Dioxide 26 mmol/L (21-32); Chloride 101 mmol/L (98-107); Creatinine Clr Calc Pharmacy 204.1 ml/min; Est GFR (African American) > 150.0 ml/min; Est GFR (Non-African American) 140.2 ml/min; Globulin 3.3 gm/dl (2.5-4.0); Glucose 83 mg/dl (70-99(Fasting)); Magnesium 1.3 mg/dl (1.7-2.4); Potassium 3.1 mmol/L (3.5-5.1); Sodium 134 mmol/L (136-145); Total Protein 6.7 gm/dl (6.0-8.3)
[2023-08-10] MEDS: MAGNESIUM OXIDE 400 MG TAB PO SCH (10:53)
[2023-08-10] MEDS: POTASSIUM CHLORIDE CRTAB 20 MEQ TABCR PO STA (10:53)
[2023-08-10] MEDS: MAGNESIUM SULFATE / D5W 1 GM/100 ML BAG IV SCH (10:53)
--- NOTE | 2023-08-10 15:25 | Psychiatric Consultation ---
Date of Consultation August 10, 2023 Impression / Recommendations Impression Esdras is a 32 yo man with a history of alcohol use disorder with previous legal consequences, social consequences, and medical sequelae admitted medically for bloody emesis likely due to esophageal varies and liver disease. Diagnostically consistent with alcohol use disorder as well as unspecified insomnia. He reports recent diagnosis of BPAD, based on his report of previous episodes of mood changes seems more consistent with possible hypomania so BPAD type II possible but difficult to determine definitively in the context of significant alcohol use. Acute risk of self-harm is low given denial of SI and no longer with intoxication. Chronic risk of self-harm and harm to others is slightly increased due to substance use with substance use treatment being the most significant modifiable risk factor to reduce acute and chronic risk. He is in the contemplative stage of change and willing to consider rehab/residential substance use treatment after reviewing that most options are voluntary programs and he would be around other people choosing to get treatment voluntarily. Given his liver disease and significantly elevated LFTs would be cautious to consider naltrexone at this point but could be risk/benefit discussion in the future if other options are unsuccessful. He feels that insomnia is the biggest barrier to helping him stop using alcohol. Reviewed history of few medication trials for insomnia and no history of sleep study. Encourage sleep study and reviewed that alcohol use impacts sleep quality and architecture. Overall, I spent a total of 60 minutes with this case including review of chart records, review of labwork, review of EKG QTc, direct evaluation of the patient at bedside, counseling the patient, discussion with the psychiatric liason during clinical rounds and documentation in the electronic health record. (1) Alcohol use disorder, severe, dependence: (2) Insomnia: Plan -Consider trial of mirtazapine 15mg HS -He is willing to consider residential substance use treatment which is strongly encouraged and recommended, psych liason to provide resources and then case management can explore options with him further -After through acute withdrawal could consider re-trial of acamprosate (initially 333mg TID and then increase to goal of 666mg TID) -Alternative MAT would be use of gabapentin (off-label) with careful consider for potential for respiratory depression if he continues to use alcohol heavily so harm reduction strategy. Start gabpentin 300mg TID and can titrate as tolerated or consider larger consolidated dose at HS as he feels this is the main cue for his alcohol use -Agree with AWSS, thiamine, folic acid -Would not add any additional medication for possible unspecified mood disorder at this time; if symptoms of aurora emerge in the future would consider use of a sedating mood stabilizer such as depakote at HS or olanzapine given his insomnia -Strongly encourage sleep study Psych History Identifying Data 32 yo man with a history of alcohol use disorder, possible mood disorder of BPAD, hyperlipidemia, lung nodules, hepatosplenomegaly, alcohol induced fatty liver, history of compression fracture L1 lumbar vertebrae and T12 vertebrae, thrombocytopenia admitted medically for bloody emesis. Psychiatry consulted for MAT recommendations and insomnia. Chief Complaint "I drink myself into a state of unconsciousness and wake up feeling good because I'm still drunk". History of Present Illness Esdras presented for bloody emesis and found to have esophageal varices and signs of portal hypertension on EGD. He reports a long history of alcohol use and has attempted to stop drinking multiple times in the past without prolonged sobriety. Within the last year saw providers at [facility] for addiction medic ine/substance use disorders and tried acamprosate (he cannot recall dose, doesn't recall taking it 3x/day) and gabapentin 100mg TID but he did not find it helpful. He reports consuming at least 750ml of 80 proof spirits daily, throughout the day as 3-4 shots throughout the day at meals and between meals, and which he has been using as a sleep aid due to lifelong sleep issues. He has a history of alcohol withdrawal symptoms and has had around 30 withdrawals in the past 3 years. He has not undergone rehab or residential treatment due to concerns about being locked up due to past bad experiences while incarcerated for alcohol related charges. He reports a history of speaking with his PCP about bipolar disorder and experiencing episodes of going without sleep for almost 10 days with periods of low energy initially and then with an increase in energy. During these episodes, he exhibits irrational behavior such as irresponsible sexual encounters and spending money irresponsibly. He has not been hospitalized for these episodes nor had encounters with police during these periods nor has anyone noted changes in his speech or activity levels. During these episodes he has always been dr inking alcohol. Recently was on Invega CABALLERO for trial mood stabilizer, he's unsure if this was helpful in any way. He has been seeing providers at the addiction medicine clinic and has tried acamprosate and gabapentin 100mg TID for alcohol cravings and chronic back pain from a compression fracture in his T12 and L1 vertebrae. He was also prescribed paliperidone for bipolar disorder. He tried trazodone for sleep in his early 20s but experienced sedation the next morning which he didn't like. He has also tried home remedies like tart dickson juice, valerian root, and melatonin which worked for a short period. He uses medical marijuana, a hybrid of sativa and indica throughout the day and pure indica before bed, to help with his back pain and OCD symptoms. He doesn't feel that his OCD symptoms contribute to his alcohol use. Allergies Allergy/AdvReac Type Severity Reaction Status Date / Time No Known Allergies Allergy Verified 08/09/23 12:13 Home Medications Medication Instructions Recorded Confirmed Type Medical Cannibus 1 dose inhalation DIRECTED PRN 06/14/23 08/08/23 History NEEDED folic acid 1 mg tablet 1 mg PO DAILY 06/14/23 08/08/23 History gabapentin 100 mg capsule 300 mg PO HS 06/14/23 08/08/23 History Patient History Medical History HTN (hypertension) Thrombocytopenia OCD (obsessive compulsive disorder) Insomnia Bipolar 1 disorder Tobacco abuse Alcohol dependence Compression fracture of T12 vertebra Compression fracture of L1 lumbar vertebra Hepatosplenomegaly Mixed hyperlipidemia Alcohol abuse Surgical History Hx of tonsillectomy Hx of colonoscopy 2015, WNL, internal hemorrhoids Social History Smoking Status: Current every day smoker Tobacco Type: Cigarettes Cigarettes Per Day: 10; Do You Dip or Chew Tobacco: No; Tobacco Cessation Education Requested by Patient: No Hx Alcohol Use: Yes Alcohol type: hard liquor Hx Substance Use: Yes Last Used Substance: Hours (ago) Preferred Language: Azeri Communication Ability: Effective Head Men'S Tennis Coach Required: No Beliefs That Will Affect Care: None Current Living Situation: Alone Feels Safe at Home: Yes Safety Concerns: Feels Safe At This Time Assistive Devices: Glasses Physical Exam Psychiatric: Orientation: alert Apperance: appropriately dressed and appropriately groomed Eye Contact: good eye contact Motor Behavior: no abnormal motor movements Speech: normal rate/rhythm/volume of speech Affect: + tearful affect (at times) Mood: + anxious mood Thought Process: goal directed thought process Thought Content: reality based without delusions Suicidal Thoughts: denies suicidal thoughts Homicidal Thoughts: denies homicidal thoughts Hallucinations: no auditory hallucinations and no visual hallucinations Cognition: recent memory grossly intact, remote memory grossly intact, attention grossly intact and language grossly intact Estimated Intelligence: consistent with education level Insight: + fair insight Judgment: + fair judgement Vital Signs (Past 24 Hours): Last Vital Signs Temp 36.9 C 08/10/23 11:04 Pulse 71 08/10/23 11:04 Resp 18 08/10/23 11:04 BP 139/87 08/10/23 11:04 Pulse Ox 95 08/10/23 11:04 O2 Del Method Room Air 08/10/23 11:04 Results & Data (PSY) Medications Administered Folic Acid (Folic Acid 1 Mg Tab) 1 mg PO DAILY [facility] Stop: 09/08/23 08:59 Last Admin: 08/10/23 08:23 Dose: 1 mg Documented By: [facility] Admin: 08/09/23 08:08 Dose: Not Given Documented By: [facility] Pantoprazole Sodium 40 mg/ (Dextrose) 100 mls @ 20 mls/hr IV Q5H [facility] Stop: 09/07/23 16:44 Last Admin: 08/10/23 13:16 Dose: 8 mg/hr, 20 mls/hr Documented By: [facility] Infusion: 08/10/23 13:16 Dose: Infused Documented By: [facility] Admin: 08/10/23 08:24 Dose: 8 mg/hr, 20 mls/hr Documented By: [facility] Infusion: 08/10/23 08:24 Dose: Infused Documented By: [facility] Admin: 08/10/23 05:52 Dose: 8 mg/hr, 20 mls/hr Documented By: Infusion: 08/10/23 05:52 Dose: Infused Documented By: Admin: 08/10/23 00:58 Dose: 8 mg/hr, 20 mls/hr Documented By: Infusion: 08/10/23 00:58 Dose: Infused Documented By: Admin: 08/09/23 20:19 Dose: 8 mg/hr, 20 mls/hr Documented By: Infusion: 08/09/23 19:52 Dose: Infused Documented By: Admin: 08/09/23 14:52 Dose: 8 mg/hr, 20 mls/hr Documented By: Infusion: 08/09/23 14:50 Dose: Infused Documented By: [facility] Admin: 08/09/23 08:36 Dose: 8 mg/hr, 20 mls/hr Documented By: [facility] Infusion: 08/09/23 08:08 Dose: Infused Documented By: [facility] Admin: 08/09/23 03:04 Dose: 8 mg/hr, 20 mls/hr Documented By: Infusion: 08/09/23 03:04 Dose: Infused Documented By: Admin: 08/08/23 22:41 Dose: 8 mg/hr, 20 mls/hr Documented By: Infusion: 08/08/23 22:41 Dose: Infused Documented By: Admin: 08/08/23 17:42 Dose: 8 mg/hr, 20 mls/hr Documented By: CAM Lorazepam 1 mg/ Syringe 1 mls @ 2 mls/min IV UD PRN; Protocol PRN Reason: EtOH Withdrawal AWSS Score 6,7 Stop: 09/07/23 17:07 Last Admin: 08/08/23 19:51 Dose: 2 mls/min Documented By: BETTIE Sodium Chloride (Nss) 1,000 mls @ 125 mls/hr IV .Q8H [facility] Stop: 09/07/23 20:44 Last Admin: 08/10/23 08:30 Dose: 125 mls/hr Documented By: [facility] Infusion: 08/10/23 08:27 Dose: Infused Documented By: [facility] Admin: 08/10/23 00:23 Dose: 125 mls/hr Documented By: Infusion: 08/09/23 22:52 Dose: Infused Documented By: Admin: 08/09/23 14:52 Dose: 125 mls/hr Documented By: Infusion: 08/09/23 13:04 Dose: Infused Documented By: Admin: 08/09/23 04:21 Dose: 125 mls/hr Documented By: Infusion: 08/09/23 04:21 Dose: Infused Documented By: Admin: 08/08/23 20:42 Dose: 125 mls/hr Documented By: BETTIE Ceftriaxone Sodium (Rocephin) 2,000 mg in 50 mls @ 100 mls/hr IV Q24H [facility] Stop: 08/13/23 13:59 Last Infusion: 08/10/23 14:31 Dose: Infused Documented By: [facility] Admin: 08/10/23 13:16 Dose: 100 mls/hr Documented By: [facility] Infusion: 08/09/23 16:09 Dose: Infused Documented By: [facility] Admin: 08/09/23 14:53 Dose: 100 mls/hr Documented By: [facility] Magnesium Oxide (Magnesium Oxide 400 Mg Tab) [facility] Stop: 09/09/23 09:29 Last Admin: 08/10/23 10:53 Dose: 400 mg Documented By: [facility] Miscellaneous (Remove Nicoderm Patch) 1 each N/A DAILY@59 [facility] Stop: 09/08/23 08:58 Last Admin: 08/10/23 08:22 Dose: 1 each Documented By: [facility] Admin: 08/09/23 08:33 Dose: 1 each Documented By: [facility] Nadolol (Nadolol 40 Mg Tab) 20 mg PO [facility] Stop: 09/08/23 13:44 Last Admin: 08/10/23 08:23 Dose: 20 mg Documented By: [facility] Admin: 08/09/23 14:51 Dose: 20 mg Documented By: [facility] Nicotine (Nicotine 14 Mg/24 Hr Patch) 1 patch TD [facility] Stop: 09/07/23 17:29 Last Admin: 08/10/23 08:22 Dose: 1 patch Documented By: [facility] Admin: 08/09/23 08:33 Dose: 1 patch Documented By: [facility] Admin: 08/08/23 19:23 Dose: 1 patch Documented By: BETTIE Ondansetron HCl (Ondansetron Inj 2 Mg/Ml 2 Ml Vial) 4 mg IV Q6H PRN PRN Reason: Nausea Stop: 09/07/23 17:29 Last Admin: 08/09/23 19:59 Dose: 4 mg Documented By: Admin: 08/09/23 08:31 Dose: 4 mg Documented By: [facility] Sucralfate (Sucralfate 1 Gm/10 Ml Udc) 1 gm PO QID [facility] Stop: 09/08/23 16:59 Last Admin: 08/10/23 12:31 Dose: 1 gm Documented By: [facility] Admin: 08/10/23 08:23 Dose: 1 gm Documented By: [facility] Admin: 08/09/23 20:00 Dose: 1 gm Documented By: Admin: 08/09/23 16:10 Dose: 1 gm Documented By: TEO Thiamine HCl (Thiamine Hcl 100 Mg Tab) 100 mg PO QAM [facility] Stop: 09/08/23 08:59 Last Admin: 08/10/23 08:23 Dose: 100 mg Documented By: Admin: 08/09/23 08:08 Dose: Not Given Documented By: TEO Coding Level of Care Code 78803 IN/OBS CONSULT LVL 4,60M Diagnoses Alcohol use disorder, severe, dependence F10.20 Insomnia G47.00
[2023-08-10] MEDS: GABAPENTIN 600 MG TAB PO SCH (17:21)
[2023-08-11 07:51] LABS: Hematocrit (blood only) 34.1 % (42.0-52.0); Hemoglobin 12.3 g/dl (14.0-18.0); Mean Corpuscular Hemoglobin 32.7 pg (25.0-34.0); Mean Corpuscular Hgb Conc 36.1 g/dL (32.0-36.0); Mean Corpuscular Volume 90.7 fL (80.0-100.0); Mean Platelet Volume 10.7 fL (9.4-12.4); Platelet Count 47 K/uL (130-400); RDW Standard Deviation 53.3 fL (36.4-46.3); Red Blood Count 3.76 M/uL (4.70-6.10); White Blood Count 6.12 K/ul (4.8-10.8)
[2023-08-11 08:03] LABS: Alanine Aminotransferase 94 U/L (7-52); Albumin Level 3.3 gm/dl (3.4-5.0); Alkaline Phosphatase 61 U/L (34-104); Anion Gap 6 (3-11); Aspartate Aminotransferase 200 U/L (13-39); BUN Creatinine Ratio 4.9 (10-20); Bilirubin,Total 6.5 mg/dl (0.2-1.0); Blood Urea Nitrogen 3 mg/dl (6-23); Calcium 8.3 mg/dl (8.6-10.3); Carbon Dioxide 26 mmol/L (21-32); Chloride 103 mmol/L (98-107); Creatinine Clr Calc Pharmacy 170.6 ml/min; Est GFR (African American) > 150.0 ml/min; Est GFR (Non-African American) 130.3 ml/min; Globulin 3.2 gm/dl (2.5-4.0); Glucose 88 mg/dl (70-99(Fasting)); Magnesium 1.6 mg/dl (1.7-2.4); Phosphorus 1.6 mg/dl (2.5-4.9); Potassium 3.4 mmol/L (3.5-5.1); Sodium 135 mmol/L (136-145); Total Protein 6.5 gm/dl (6.0-8.3)
[2023-08-11 08:11] LABS: INR 2.2 (0.9-1.1); Prothrombin Time 22.1 Seconds (9.0-12.0)
[2023-08-11] MEDS ORDERED: POTASSIUM PHOS 3 MMOL/1 ML INFUSION IV STA (11:43)
--- NOTE | 2023-08-11 11:44 | Hospitalist Progress Note ---
Date of Service August 11, 2023 Assessment & Plan (1) GIB (gastrointestinal bleeding): (2) Acute alcohol abuse: (3) Alcohol intoxication: (4) Tobacco abuse: (5) Bipolar 1 disorder: (6) Insomnia: (7) HTN (hypertension): Plan 32 yo M with history of alcohol misuse, alcoholic fatty liver disease being evaluated for cirrhosis, coagulopathy 2/2 liver disease, chronic anemia and other comorbidities who is admitted for concern of UGIB. He states that he experienced multiple episodes of tarry stool and coffee ground emesis, however, no episodes since arrival to ED. Denies any abdominal pain, just reports sudden nausea with vomiting. Last drink at noon on 08/07. states that he had been successful with 1 month of sobriety however is uncontrolled insomnia has prompted his relapse. labs on admission - reviewed and appear hemoconcentrated compared to baseline. transaminitis, elevated Etoh 405.2, elevated lipase Hematemesis Melena Scheduled for OP EGD given ?varices on imaging -Reports multiple episodes of hematemesis/melena. FOBT positive on arrival Hgb stable, however, question if hemoconcentrated given all cell counts are much higher than recent baselines s/p 1 L in ED, anticipate drop with repeat labs -type and cross - monitor H&H Protonix drip GI consulted - s/p EGD EGD - Findings: Grade I varices were found in the lower third of the esophagus. They were 3 mm in largest diameter. A small hiatal hernia was present. Severe portal hypertensive gastropathy was found in the stomach. Biopsies were taken with a cold forceps for histology. The examined duodenum was normal. Impression: - Grade I esophageal varices. - Small hiatal hernia. - Portal hypertensive gastropathy. Biopsied. - Normal examined duodenum. Recommendation: - Return patient to [facility] for ongoing care. - Advance diet as tolerated. - Continue present medications. - F/U with Dr. Hernandes as an outpatient for further Hepatology care Per GI - Patient underwent an EGD on 08/09/23 and was noted to have grade 1 esophageal varices and portal hypertensive gastropathy. Would continue IV Protonix gtt, begin Carafate 1 gm QID, antibiotics x 5 days (currently on Ceftriaxone), and initiate Nadolol 20 mg daily. We will await an updated liver ultrasound. US liver-1. Hepatosplenomegaly with findings suggestive of probable hepatic steatosis. 2. No hepatic mass identified. 3. Sludge-filled gallbladder with borderline wall thickening. No shadowing cholelithiasis or additional evidence to suggest acute cholecystitis. 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 Hernandes, at [facility]. 6/8 dark stool yesterday and 1 episode of emesis yesterday. No abd. pain, feeling well, asking to advance diet. Will advance and will cont. to monitor. Acute alcohol intoxication Alcohol use disorder -patient drinking 1L vodka a day, last drink 08/07 @ noon states he isn't addicted but rather struggles with insomnia -Gabapentin taper, ativan AWSS Chronic Normocytic anemia Chronic Coagulopathy iso liver disease INR 1.6, platelets 106 on admission Hgb baseline appears to be 12-13 in OP records -trend CBC, no indication for platelet transfusion at this time Transaminitis Alcohol related fatty liver disease Alcoholic hepatitis Last drink around noon 08/07, AST 206 > ALT 97, bili 4.8 Maddreys 26.9, MELD 18 on admission Current Maddrey~50, MELD 23 - pt feels well - steroid use seem contraindicated in recent GI bleed, but considering txt (?pentoxifyllin, NAC)- will discuss w/ GI Follows hepatology, imaging concerning for cirrhosis -Trend CMP Lipase trending down Bipolar disorder Insomnia prescribed Invega, however states he stopped taking as he "is not good with medications"--prescribed by addiction med followed by sleep med, pending sleep study Agreeable to psych consult for medication options to bridge to OP follow up, would like to discuss depot injection to not "have to take medications" Continue 300mg qhs gabapentin upon completion of above taper Tobacco abuse discussed cessation nicotine patch DVT SCDs Dispo: tele PCP: Tami Upton MD, [place] FULL CODE Admission and Anticipated Discharge Date Admission Date: August 08, 2023 Subjective Pt seen in follow up of hematemesis, melena, alcohol intoxication/ abuse Currently sitting up in bed in NAD Seen by GI and underwent EGD Currently no abd. pain, n/v. Tolerating diet. no fever, chills, chest pain , shortness of breath Cont. to monitor Review of Systems Review of Systems: All systems reviewed & are unremarkable except as noted in Subjective Physical Exam Physical Exam: GENERAL: WD/WN young M in NAD HEENT: NC, AT. MMM. EOMI NECK: Supple HEART: rrr LUNGS: CTAB, moving air well. No crackles or wheezes are heard. ABDOMEN: Soft, nontender, nondistended, + bowel sounds BACK: No CVAT, no obvious deformity. EXTREMITIES: Without cyanosis, clubbing or edema. NEUROLOGICAL: Awake, alert, oriented, moving all 4 extremities. answers appropriately. Skin: Warm and dry Results & Data Results & Data Vital Signs (Past 12 Hours) Vital Signs Temp Pulse Resp BP Pulse Ox O2 Del Method 08/11/23 11:42 36.9 C 65 18 135/79 97 Room Air 08/11/23 11:27 Room Air 08/11/23 07:47 36.8 C 62 18 133/83 96 Room Air 08/11/23 03:08 36.5 C 73 18 118/73 96 Room Air Laboratory Results 08/11/23 08/08/23 Range/Units 07:08 15:08 WBC 6.12 (4.8-10.8) K/ul RBC 3.76 L (4.70-6.10) M/uL Hgb 12.3 L (14.0-18.0) g/dl Hct 34.1 L (42.0-52.0) % MCV 90.7 (80.0-100.0) fL MCH 32.7 (25.0-34.0) pg MCHC 36.1 H (32.0-36.0) g/dL RDW Std Deviation 53.3 H (36.4-46.3) fL RDW Coeff of Joe 16.0 H (11.5-14.5) % Plt Count 47 L (130-400) K/uL MPV 10.7 (9.4-12.4) fL PT 22.1 H (9.0-12.0) Seconds INR 2.2 H (0.9-1.1) Sodium 135 L (136-145) mmol/L Potassium 3.4 L (3.5-5.1) mmol/L Chloride 103 (98-107) mmol/L Carbon Dioxide 26 (21-32) mmol/L Anion Gap 6 (3-11) BUN 3 L (6-23) mg/dl Creatinine 0.61 (0.6-1.4) mg/dl Est Cr Clr Drug Dosing 170.6 ml/min Est GFR ( Amer) > 150.0 ml/min Est GFR (Non-Af Amer) 130.3 ml/min BUN/Creatinine Ratio 4.9 L (10-20) Glucose 88 (70-99(Fasting)) mg/dl Calcium 8.3 L (8.6-10.3) mg/dl Phosphorus 1.6 L (2.5-4.9) mg/dl Magnesium 1.6 L (1.7-2.4) mg/dl Total Bilirubin 6.5 H (0.2-1.0) mg/dl AST 200 H (13-39) U/L ALT 94 H (7-52) U/L Alkaline Phosphatase 61 (34-104) U/L Total Protein 6.5 (6.0-8.3) gm/dl Albumin 3.3 L (3.4-5.0) gm/dl Globulin 3.2 (2.5-4.0) gm/dl Albumin/Globulin Ratio 1.0 (0.9-2) Crossmatch See Detail Medications Administered Current Inpatient Medications Folic Acid (Folic Acid 1 Mg Tab) 1 mg PO DAILY [facility] Stop: 09/08/23 08:59 Last Admin: 08/11/23 07:59 Dose: 1 mg Gabapentin (Gabapentin 600 Mg Tab) 600 mg PO Q24H [facility] Stop: 08/12/23 05:16 Pantoprazole Sodium 40 mg/ (Dextrose) 100 mls @ 20 mls/hr IV Q5H [facility] Stop: 09/07/23 16:44 Last Admin: 08/11/23 11:39 Dose: 8 mg/hr, 20 mls/hr Lorazepam 1 mg/ Syringe 1 mls @ 2 mls/min IV UD PRN; Protocol PRN Reason: EtOH Withdrawal AWSS Score 6,7 Stop: 09/07/23 17:07 Last Admin: 08/08/23 19:51 Dose: 2 mls/min Lorazepam 2 mg/ Syringe 2 mls @ 2 mls/min IV UD PRN; Protocol PRN Reason: EtOH Withdrawal AWSS Score 8,9 Stop: 09/07/23 17:07 Ceftriaxone Sodium (Rocephin) 2,000 mg in 50 mls @ 100 mls/hr IV Q24H [facility] Stop: 08/13/23 13:59 Last Infusion: 08/10/23 14:31 Dose: Infused Magnesium Sulfate/Dextrose (Magnesium Sulfate / D5w) 1 gm in 100 mls @ 50 mls/hr IV ONE ONE Stop: 08/11/23 13:42 Magnesium Oxide (Magnesium Oxide 400 Mg Tab) 400 mg PO QAM [facility] Stop: 09/09/23 09:29 Last Admin: 08/11/23 07:59 Dose: 400 mg Miscellaneous (Remove Nicoderm Patch) 1 each N/A DAILY@0859 [facility] Stop: 09/08/23 08:58 Last Admin: 08/11/23 07:59 Dose: 1 each Nadolol (N[facility]ol 40 Mg Tab) [facility] Stop: 09/08/23 13:44 Last Admin: 08/11/23 07:59 Dose: 20 mg Nicotine (Nicotine 14 Mg/24 Hr Patch) 1 patch TD [facility] Stop: 09/07/23 17:29 Last Admin: 08/11/23 07:59 Dose: 1 patch Ondansetron HCl (Ondansetron Inj 2 Mg/Ml 2 Ml Vial) 4 mg IV Q6H PRN PRN Reason: Nausea Stop: 09/07/23 17:29 Last Admin: 08/09/23 19:59 Dose: 4 mg Potassium Chloride (Potassium Chloride Crtab 20 Meq Tabcr) 40 meq PO NOW STA Stop: 08/11/23 11:44 Potassium Phosphate (Potassium Phos 3 Mmol/1 Ml Infusion) 9 mmol IV NOW STA Stop: 08/11/23 11:44 Sucralfate (Sucralfate 1 Gm/10 Ml Udc) 1 gm PO QID [facility] Stop: 09/08/23 16:59 Last Admin: 08/11/23 11:41 Dose: 1 gm Thiamine HCl (Thiamine Hcl 100 Mg Tab) 100 mg PO QAM [facility] Stop: 09/08/23 08:59 Last Admin: 08/11/23 07:59 Dose: 100 mg
[2023-08-11] MEDS: POTASSIUM CHLORIDE CRTAB 20 MEQ TABCR PO STA (14:12)
[2023-08-11] MEDS: MAGNESIUM SULFATE / D5W 1 GM/100 ML BAG IV ONE (14:12)
[2023-08-11] MEDS: POTASSIUM PHOSPHATE 9 MMOL in SODIUM CHLORIDE 0.9% 250 ML IV ONE (14:12)
[2023-08-11] MEDS: PENTOXIFYLLINE 400MG EXT REL TAB PO SCH (18:33)
[2023-08-11] MEDS: PANTOprazole 40 MG in DEXTROSE 5% MINI-B 100 ML IV SCH (18:36)
[2023-08-11 19:27] LABS: Hematocrit (blood only) 35.5 % (42.0-52.0); Hemoglobin 12.6 g/dl (14.0-18.0)
[2023-08-11] MEDS ORDERED: PANTOprazole 40 MG in DEXTROSE 5% MINI-B 100 ML IV SCH (21:00)
[2023-08-12] MEDS ORDERED: Nursing to Pharmacy Communication SCH (00:30)
[2023-08-12] MEDS: GABAPENTIN 600 MG TAB PO SCH (05:16)
--- NOTE | 2023-08-12 07:20 | Hospitalist Progress Note ---
Date of Service August 12, 2023 Assessment & Plan (1) GIB (gastrointestinal bleeding): (2) Acute alcohol abuse: (3) Alcohol intoxication: (4) Tobacco abuse: (5) Bipolar 1 disorder: (6) Insomnia: (7) HTN (hypertension): Plan 32 yo M with history of alcohol misuse, alcoholic fatty liver disease being evaluated for cirrhosis, coagulopathy 2/2 liver disease, chronic anemia and other comorbidities who is admitted for concern of UGIB. He states that he experienced multiple episodes of tarry stool and coffee ground emesis, however, no episodes since arrival to ED. Denies any abdominal pain, just reports sudden nausea with vomiting. Last drink at noon on 08/07. states that he had been successful with 1 month of sobriety however is uncontrolled insomnia has prompted his relapse. labs on admission - reviewed and appear hemoconcentrated compared to baseline. transaminitis, elevated Etoh 405.2, elevated lipase Hematemesis Melena Scheduled for OP EGD given ?varices on imaging -Reports multiple episodes of hematemesis/melena. FOBT positive on arrival Hgb stable, however, question if hemoconcentrated given all cell counts are much higher than recent baselines s/p 1 L in ED, anticipate drop with repeat labs -type and cross - monitor H&H Protonix drip GI consulted - s/p EGD EGD - Findings: Grade I varices were found in the lower third of the esophagus. They were 3 mm in largest diameter. A small hiatal hernia was present. Severe portal hypertensive gastropathy was found in the stomach. Biopsies were taken with a cold forceps for histology. The examined duodenum was normal. Impression: - Grade I esophageal varices. - Small hiatal hernia. - Portal hypertensive gastropathy. Biopsied. - Normal examined duodenum. Recommendation: - [facility]. - Advance diet as tolerated. - Continue present medications. - F/U with Dr. Hernandes as an outpatient for further Hepatology care Per GI - Patient underwent an EGD on 08/09/23 and was noted to have grade 1 esophageal varices and portal hypertensive gastropathy. Would continue IV Protonix gtt, begin Carafate 1 gm QID, antibiotics x 5 days (currently on Ceftriaxone), and initiate Nadolol 20 mg daily. We will await an updated liver ultrasound. US liver-1. Hepatosplenomegaly with findings suggestive of probable hepatic steatosis. 2. No hepatic mass identified. 3. Sludge-filled gallbladder with borderline wall thickening. No shadowing cholelithiasis or additional evidence to suggest acute cholecystitis. 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 Hernandes, at [facility]. 08/09 dark stool yesterday and 1 episode of emesis yesterday. No abd. pain, feeling well, asking to advance diet. Will advance and will cont. to monitor. 08/10 another episode of hematemesis in PM. Diet changed to clear for time being - cont. to monitor. Re-check H&H. Acute alcohol intoxication Alcohol use disorder -patient drinking 1L vodka a day, last drink 08/07 @ noon states he isn't addicted but rather struggles with insomnia -Gabapentin taper, ativan AWSS Chronic Normocytic anemia Chronic Coagulopathy iso liver disease INR 1.6, platelets 106 on admission Hgb baseline appears to be 12-13 in OP records -trend CBC, no indication for platelet transfusion at this time Transaminitis Alcohol related fatty liver disease Alcoholic hepatitis, Acute liver failure Last drink around noon 08/07, AST 206 > ALT 97, bili 4.8 Maddreys 26.9, MELD 18 on admission 08/10 Current Maddrey~50, MELD 23 - pt feels well - steroid use seem contraindicated in recent GI bleed, but considering txt (?pentoxifyllin, NAC)- discussed w/ GI (Dr. Garber - would not use steroid in recent GI bleed. pentoxifyllin not proved to help the condition 08/12/2023 Maddrey's score now 56.8 (poor prognosis), MELD score 24 (19.6% mortality in 3 months) - discussed w/ GI (Dr. Bowling) - pt's INR over the past several days increased from 1.6 to 2.3 (bili from 4.8 to 6.2) - pt in acute liver failure and recommend transfer. I contacted [facility] and discussed w/ hepatology - at this point do not recommend transfer as only would provide supportive measures that can be done at [facility] - jackhammer splitter operator also would consider starting prednisolone (despite hx of GI bleed and EGD findings, as bleeding seems to be controlled at this time). Discussed w/ the pt and pt agreeable to to try prednisolone and stay in the hospital for further monitoring. Follows hepatology, imaging concerning for cirrhosis -Trend CMP Lipase trended down Bipolar disorder Insomnia prescribed Invega, however states he stopped taking as he "is not good with medications"--prescribed by addiction med followed by sleep med, pending sleep study Agreeable to psych consult for medication options to bridge to OP follow up, would like to discuss depot injection to not "have to take medications" Continue 300mg qhs gabapentin upon completion of above taper Psychiatry consulted - appreciate their recommendations Tobacco abuse discussed cessation nicotine patch DVT SCDs Dispo: tele PCP: Tami Upton MD, [place] FULL CODE Admission and Anticipated Discharge Date Admission Date: August 08, 2023 Subjective Pt seen in follow up of hematemesis, melena, alcohol intoxication/ abuse. Now with acute liver failure. Currently sitting up in bed in [facility] Seen by GI and underwent EGD Currently no abd. pain, but had another episode of hematemesis yesterday no fever, chills, chest pain , shortness of breath Maddrey's score now 56.8 (poor prognosis), MELD score 24 - discussed w/ GI (Dr. Bowling) - pt's INR over the past several days increased from 1.6 to 2.3 (bili from 4.8 to 6.2) - pt in acute liver failure and recommend transfer. I contacted [facility] and discussed w/ hepatology - at this point do not recommend transfer as only can provide supportive measures that can be done at [facility] - jackhammer splitter operator also would consider starting prednisolone (despite hx of GI bleed and EGD findings, as bleeding seems to be controlled at this time). Discussed w/ the pt and pt agreeable to to try prednisolone and stay in the hospital for further monitoring. Review of Systems Review of Systems: All systems reviewed & are unremarkable except as noted in Subjective Physical Exam Physical Exam: GENERAL: WD/WN young M in NAD HEENT: NC, AT. MMM. EOMI NECK: Supple HEART: rrr LUNGS: CTAB, moving air well. No crackles or wheezes are heard. ABDOMEN: Soft, nontender, nondistended, + bowel sounds BACK: No CVAT, no obvious deformity. EXTREMITIES: Without cyanosis, clubbing or edema. NEUROLOGICAL: Awake, alert, oriented, moving all 4 extremities. answers appropriately. Skin: Warm and dry Results & Data Results & Data Vital Signs (Past 12 Hours) Vital Signs Temp Pulse Pulse Resp BP Pulse Ox O2 Del Method 08/12/23 03:39 36.7 C 71 17 123/72 97 Room Air 08/11/23 23:46 37.1 C 70 16 112/68 94 Room Air 08/11/23 22:02 85 08/11/23 19:20 36.6 C 69 17 136/82 97 Room Air Laboratory Results 08/11/23 08/11/23 08/08/23 Range/Units 19:10 07:08 15:08 WBC 6.12 (4.8-10.8) K/ul RBC 3.76 L (4.70-6.10) M/uL Hgb 12.6 L 12.3 L (14.0-18.0) g/dl Hct 35.5 L 34.1 L (42.0-52.0) % MCV 90.7 (80.0-100.0) fL MCH 32.7 (25.0-34.0) pg MCHC 36.1 H (32.0-36.0) g/dL RDW Std Deviation 53.3 H (36.4-46.3) fL RDW Coeff of Joe 16.0 H (11.5-14.5) % Plt Count 47 L (130-400) K/uL MPV 10.7 (9.4-12.4) fL PT 22.1 H (9.0-12.0) Seconds INR 2.2 H (0.9-1.1) Sodium 135 L (136-145) mmol/L Potassium 3.4 L (3.5-5.1) mmol/L Chloride 103 (98-107) mmol/L Carbon Dioxide 26 (21-32) mmol/L Anion Gap 6 (3-11) BUN 3 L (6-23) mg/dl Creatinine 0.61 (0.6-1.4) mg/dl Est Cr Clr Drug Dosing 170.6 ml/min Est GFR ( Amer) > 150.0 ml/min Est GFR (Non-Af Amer) 130.3 ml/min BUN/Creatinine Ratio 4.9 L (10-20) Glucose 88 (70-99(Fasting)) mg/dl Calcium 8.3 L (8.6-10.3) mg/dl Phosphorus 1.6 L (2.5-4.9) mg/dl Magnesium 1.6 L (1.7-2.4) mg/dl Total Bilirubin 6.5 H (0.2-1.0) mg/dl AST 200 H (13-39) U/L ALT 94 H (7-52) U/L Alkaline Phosphatase 61 (34-104) U/L Total Protein 6.5 (6.0-8.3) gm/dl Albumin 3.3 L (3.4-5.0) gm/dl Globulin 3.2 (2.5-4.0) gm/dl Albumin/Globulin Ratio 1.0 (0.9-2) Crossmatch See Detail Medications Administered Current Inpatient Medications Folic Acid (Folic Acid 1 Mg Tab) 1 mg PO DAILY [facility] Stop: 09/08/23 08:59 Last Admin: 08/11/23 07:59 Dose: 1 mg Lorazepam 1 mg/ Syringe 1 mls @ 2 mls/min IV UD PRN; Protocol PRN Reason: EtOH Withdrawal AWSS Score 6,7 Stop: 09/07/23 17:07 Last Admin: 08/11/23 16:31 Dose: 2 mls/min Lorazepam 2 mg/ Syringe 2 mls @ 2 mls/min IV UD PRN; Protocol PRN Reason: EtOH Withdrawal AWSS Score 8,9 Stop: 09/07/23 17:07 Ceftriaxone Sodium (Rocephin) 2,000 mg in 50 mls @ 100 mls/hr IV Q24H [facility] Stop: 08/13/23 13:59 Last Infusion: 08/11/23 18:41 Dose: Infused Acetylcysteine 8,400 mg/ (Dextrose) 1,042 mls @ 65.125 mls/hr IV 1800 PUJA; Protocol Last Admin: 08/11/23 18:33 Dose: Not Given Pantoprazole Sodium 40 mg/ (Dextrose) 100 mls @ 20 mls/hr IV Q5H [facility] Stop: 09/10/23 16:44 Last Admin: 08/12/23 05:16 Dose: 8 mg/hr, 20 mls/hr Magnesium Oxide (Magnesium Oxide 400 Mg Tab) 400 mg PO QAM [facility] Stop: 09/09/23 09:29 Last Admin: 08/11/23 07:59 Dose: 400 mg Miscellaneous (Remove Nicoderm Patch) 1 each N/A DAILY@0859 [facility] Stop: 09/08/23 08:58 Last Admin: 08/11/23 07:59 Dose: 1 each Nadolol (Nadolol 40 Mg Tab) 20 mg PO [facility] Stop: 09/08/23 13:44 Last Admin: 08/11/23 07:59 Dose: 20 mg Nicotine (Nicotine 14 Mg/24 Hr Patch) 1 patch TD [facility] Stop: 09/07/23 17:29 Last Admin: 08/11/23 07:59 Dose: 1 patch Ondansetron HCl (Ondansetron Inj 2 Mg/Ml 2 Ml Vial) 4 mg IV Q6H PRN PRN Reason: Nausea Stop: 09/07/23 17:29 Last Admin: 08/11/23 16:01 Dose: 4 mg Pentoxifylline (Pentoxifylline 400mg Ext Rel Tab) 400 mg PO TID [facility] Stop: 09/10/23 13:59 Last Admin: 08/11/23 18:33 Dose: Not Given Sucralfate (Sucralfate 1 Gm/10 Ml Udc) 1 gm PO QID [facility] Stop: 09/08/23 16:59 Last Admin: 08/11/23 20:12 Dose: 1 gm Thiamine HCl (Thiamine Hcl 100 Mg Tab) [facility] Stop: 09/08/23 08:59 Last Admin: 08/11/23 07:59 Dose: 100 mg
[2023-08-12 08:04] LABS: Hematocrit (blood only) 34.6 % (42.0-52.0); Hemoglobin 12.3 g/dl (14.0-18.0); Mean Corpuscular Hemoglobin 32.6 pg (25.0-34.0); Mean Corpuscular Hgb Conc 35.5 g/dL (32.0-36.0); Mean Corpuscular Volume 91.8 fL (80.0-100.0); Mean Platelet Volume 11.2 fL (9.4-12.4); Platelet Count 50 K/uL (130-400); RDW Coefficient of Variation 16.3 % (11.5-14.5); RDW Standard Deviation 53.7 fL (36.4-46.3); Red Blood Count 3.77 M/uL (4.70-6.10); White Blood Count 7.74 K/ul (4.8-10.8)
[2023-08-12 08:09] LABS: Albumin Level 3.3 gm/dl (3.4-5.0); BUN Creatinine Ratio 8.7 (10-20); Bilirubin,Total 6.2 mg/dl (0.2-1.0); Calcium 8.7 mg/dl (8.6-10.3); Creatinine Clr Calc Pharmacy 170.1 ml/min; Est GFR (African American) 143.6 ml/min; Est GFR (Non-African American) 123.9 ml/min; Globulin 3.2 gm/dl (2.5-4.0); Magnesium 1.7 mg/dl (1.7-2.4); Phosphorus 2.3 mg/dl (2.5-4.9); Potassium 3.5 mmol/L (3.5-5.1); Total Protein 6.5 gm/dl (6.0-8.3)
[2023-08-12 08:12] LABS: INR 2.3 (0.9-1.1)
[2023-08-12] MEDS: POTASSIUM CHLORIDE CRTAB 20 MEQ TABCR PO STA (10:12)
--- NOTE | 2023-08-12 14:05 | Communication Note ---
Date of Service: August 12, 2023 Patient evaluated at the bedside today at the request of Dr. Izaguirre. Labs reviewed from this morning. His INR is slowly increasing and was noted to be 2.3 this morning. MELD-Na 24 and Maddrey's was 56.8. No glucocorticoids prescribed due to recent concern for GIB. He is jaundiced but otherwise denies any GI complaints. He refuses tertiary transfer and states he plans to follow up with hepatology upon discharge and enter into an ETOH treatment program. States "I need help". Reinforced the danger of ongoing alcohol use and liver failure/. He verbali zes understanding of the risks of ongoing alcohol abuse.
[2023-08-12] MEDS: prednisoLONE sod phosphate 15 MG/5 ML PO SCH (16:20)
[2023-08-12] MEDS: PANTOprazole 40 MG in SYRINGE BID IV SCH (20:20)
[2023-08-12] MEDS ORDERED: PANTOprazole 40 MG in DEXTROSE 5% MINI-B 100 ML IV SCH (21:00)
[2023-08-13 08:11] LABS: Hematocrit (blood only) 33.4 % (42.0-52.0); Hemoglobin 11.7 g/dl (14.0-18.0); Mean Corpuscular Hemoglobin 32.8 pg (25.0-34.0); Mean Corpuscular Volume 93.6 fL (80.0-100.0); Mean Platelet Volume 11.3 fL (9.4-12.4); Platelet Count 57 K/uL (130-400); RDW Coefficient of Variation 16.8 % (11.5-14.5); RDW Standard Deviation 55.9 fL (36.4-46.3); Red Blood Count 3.57 M/uL (4.70-6.10)
[2023-08-13 08:20] LABS: Albumin Globulin Ratio 1.1 (0.9-2); Albumin Level 3.4 gm/dl (3.4-5.0); BUN Creatinine Ratio 15.3 (10-20); Bilirubin,Total 4.7 mg/dl (0.2-1.0); Calcium 8.6 mg/dl (8.6-10.3); Creatinine Clr Calc Pharmacy 164.8 ml/min; Est GFR (African American) 141.1 ml/min; Est GFR (Non-African American) 121.7 ml/min; Globulin 3.1 gm/dl (2.5-4.0); Magnesium 1.8 mg/dl (1.7-2.4); Phosphorus 1.9 mg/dl (2.5-4.9); Potassium 4.1 mmol/L (3.5-5.1); Total Protein 6.5 gm/dl (6.0-8.3)
[2023-08-13 08:22] LABS: INR 2.1 (0.9-1.1); Prothrombin Time 21.6 Seconds (9.0-12.0)
[2023-08-13] MEDS ORDERED: cefTRIAXone SODIUM 1,000 MG/50 ML BAG IV STA (15:40)
--- NOTE | 2023-08-13 17:36 | Hospitalist Progress Note ---
Date of Service August 13, 2023 Assessment & Plan (1) GIB (gastrointestinal bleeding): (2) Acute alcohol abuse: (3) Alcohol intoxication: (4) Tobacco abuse: (5) Bipolar 1 disorder: (6) Insomnia: (7) HTN (hypertension): Plan 32 yo M with history of alcohol misuse, alcoholic fatty liver disease being evaluated for cirrhosis, coagulopathy 2/2 liver disease, chronic anemia and other comorbidities who is admitted for concern of UGIB. He states that he experienced multiple episodes of tarry stool and coffee ground emesis, however, no episodes since arrival to ED. Denies any abdominal pain, just reports sudden nausea with vomiting. Last drink at noon on 08/07. states that he had been successful with 1 month of sobriety however is uncontrolled insomnia has prompted his relapse. labs on admission - reviewed and appear hemoconcentrated compared to baseline. transaminitis, elevated Etoh 405.2, elevated lipase Hematemesis Melena Scheduled for OP EGD given ?varices on imaging -Reports multiple episodes of hematemesis/melena. FOBT positive on arrival Hgb stable, however, question if hemoconcentrated given all cell counts are much higher than recent baselines s/p 1 L in ED, anticipate drop with repeat labs -type and cross - monitor H&H Protonix drip GI consulted - s/p EGD EGD - Findings: Grade I varices were found in the lower third of the esophagus. They were 3 mm in largest diameter. A small hiatal hernia was present. Severe portal hypertensive gastropathy was found in the stomach. Biopsies were taken with a cold forceps for histology. The examined duodenum was normal. Impression: - Grade I esophageal varices. - Small hiatal hernia. - Portal hypertensive gastropathy. Biopsied. - Normal examined duodenum. Recommendation: - Return patient to [facility] for ongoing care. - Advance diet as tolerated. - Continue present medications. - F/U with Dr. Hernandes as an outpatient for further Hepatology care Per GI - Patient underwent an EGD on 08/09/23 and was noted to have grade 1 esophageal varices and portal hypertensive gastropathy. Would continue IV Protonix gtt, begin Carafate 1 gm QID, antibiotics x 5 days (currently on Ceftriaxone), and initiate Nadolol 20 mg daily. We will await an updated liver ultrasound. US liver-1. Hepatosplenomegaly with findings suggestive of probable hepatic steatosis. 2. No hepatic mass identified. 3. Sludge-filled gallbladder with borderline wall thickening. No shadowing cholelithiasis or additional evidence to suggest acute cholecystitis. He will need close follow-up with his key account manager, Dr. Hernandes, at [facility]. 08/09 dark stool yesterday and 1 episode of emesis yesterday. No abd. pain, feeling well, asking to advance diet. Will advance and will cont. to monitor. 08/10 another episode of hematemesis in PM. Diet changed to clear for time being - cont. to monitor. Re-check H&H. 08/12 Hgb slightly down 11.7 (started prednisolone yesterday) -> closely monitor for bleeding Acute alcohol intoxication Alcohol use disorder -patient drinking 1L vodka a day, last drink 08/07 @ noon states he isn't addicted but rather struggles with insomnia -Gabapentin taper, ativan AWSS Chronic Normocytic anemia Chronic Coagulopathy iso liver disease INR 1.6, platelets 106 on admission Hgb baseline appears to be 12-13 in OP records -trend CBC, no indication for platelet transfusion at this time Transaminitis Alcohol related fatty liver disease Alcoholic hepatitis, Acute liver failure Last drink around noon 08/07, AST 206 > ALT 97, bili 4.8 Maddreys 26.9, MELD 18 on admission 08/10 Current Maddrey~50, MELD 23 - pt feels well - steroid use seem contraindicated in recent GI bleed, but considering txt (?pentoxifyllin, NAC)- discussed w/ GI (Dr. Garber - would not use steroid in recent GI bleed. pentoxifyllin not proved to help the condition 08/12/2023 Maddrey's score now 56.8 (poor prognosis), MELD score 24 (19.6% mortality in 3 months) - discussed w/ GI (Dr. Bowling) - pt's INR over the past several days increased from 1.6 to 2.3 (bili from 4.8 to 6.2) - pt in acute liver failure and recommend transfer. I contacted [facility] and discussed w/ hepatology - at this point do not recommend transfer as only would provide supportive measures that can be done at [facility] - key account manager also would consider starting prednisolone (despite hx of GI bleed and EGD findings, as bleeding seems to be controlled at this time). Discussed w/ the pt and pt agreeable to to try prednisolone and stay in the hospital for further monitoring. 08/12 Started prednisolone yesterday - Maddrey's score slightly improved to 48.9, and MELD score 21. Cont. prednisolone. Monitor liver function, and monitor for bleeding. Follows hepatology, imaging concerning for cirrhosis -Trend CMP Lipase trended down Bipolar disorder Insomnia prescribed Invega, however states he stopped taking as he "is not good with medications"--prescribed by addiction med followed by sleep med, pending sleep study Agreeable to psych consult for medication options to bridge to OP follow up, would like to discuss depot injection to not "have to take medications" Continue 300mg qhs gabapentin upon completion of above taper Psychiatry consulted - appreciate their recommendations Tobacco abuse discussed cessation nicotine patch DVT SCDs Dispo: tele PCP: Tami Upton MD, [facility] [place] FULL CODE Admission and Anticipated Discharge Date Admission Date: August 08, 2023 Subjective Pt seen in follow up of hematemesis, melena, alcohol intoxication/ abuse. Now with acute liver failure. Currently sitting up in bed in [facility] Seen by GI earlier during hosp. stay and underwent EGD Currently no abd. pain no fever, chills, chest pain , shortness of breath Pt's INR has been increasing over several days - his Maddrey's and MELD score has been increasing -> pt in acute liver failure Yesterday - Maddrey's score 56.8 (poor prognosis), MELD score 24 - discussed w/ GI (Dr. Bowling) - pt's INR over the past several days increased from 1.6 to 2.3 (bili from 4.8 to 6.2) - pt in acute liver failure and recommend transfer. I contacted [facility] and discussed w/ hepatology - at this point do not recommend transfer as only can provide supportive measures that can be done at [facility] - key account manager also would consider starting prednisolone (despite hx of GI bleed and EGD findings, as bleeding seems to be controlled at this time). Discussed w/ the pt and pt agreeable to to try prednisolone and stay in the hospital for further monitoring. Today, slight improvement in Maddrey's -> 48.9 and MELD 21 Review of Systems Review of Systems: All systems reviewed & are unremarkable except as noted in Subjective Physical Exam Physical Exam: GENERAL: WD/WN young M in NAD HEENT: NC, AT. MMM. EOMI NECK: Supple HEART: rrr LUNGS: CTAB, moving air well. No crackles or wheezes are heard. ABDOMEN: Soft, nontender, nondistended, + bowel sounds BACK: No CVAT, no obvious deformity. EXTREMITIES: Without cyanosis, clubbing or edema. NEUROLOGICAL: Awake, alert, oriented, moving all 4 extremities. answers appropriately. Skin: Warm and dry Results & Data Results & Data Vital Signs (Past 12 Hours) Vital Signs Temp Pulse Resp BP Pulse Ox O2 Del Method 08/13/23 16:18 36.9 C 74 20 134/78 98 Room Air 08/13/23 11:14 36.8 C 69 20 113/67 96 Room Air 08/13/23 07:29 36.5 C 77 19 121/73 98 Room Air Laboratory Results 08/13/23 Range/Units 07:32 WBC 6.90 (4.8-10.8) K/ul RBC 3.57 L (4.70-6.10) M/uL Hgb 11.7 L (14.0-18.0) g/dl Hct 33.4 L (42.0-52.0) % MCV 93.6 (80.0-100.0) fL MCH 32.8 (25.0-34.0) pg MCHC 35.0 (32.0-36.0) g/dL RDW Std Deviation 55.9 H (36.4-46.3) fL RDW Coeff of Joe 16.8 H (11.5-14.5) % Plt Count 57 L (130-400) K/uL MPV 11.3 (9.4-12.4) fL PT 21.6 H (9.0-12.0) Seconds INR 2.1 H (0.9-1.1) Sodium 137 (136-145) mmol/L Potassium 4.1 (3.5-5.1) mmol/L Chloride 107 (98-107) mmol/L Carbon Dioxide 27 (21-32) mmol/L Anion Gap 3 (3-11) BUN 11 (6-23) mg/dl Creatinine 0.72 (0.6-1.4) mg/dl Est Cr Clr Drug Dosing 164.8 ml/min Est GFR ( Amer) 141.1 ml/min Est GFR (Non-Af Amer) 121.7 ml/min BUN/Creatinine Ratio 15.3 (10-20) Glucose 110 H (70-99(Fasting)) mg/dl Calcium 8.6 (8.6-10.3) mg/dl Phosphorus 1.9 L (2.5-4.9) mg/dl Magnesium 1.8 (1.7-2.4) mg/dl Total Bilirubin 4.7 H (0.2-1.0) mg/dl AST 141 H (13-39) U/L ALT 87 H (7-52) U/L Alkaline Phosphatase 73 (34-104) U/L Total Protein 6.5 (6.0-8.3) gm/dl Albumin 3.4 (3.4-5.0) gm/dl Globulin 3.1 (2.5-4.0) gm/dl Albumin/Globulin Ratio 1.1 (0.9-2) Medications Administered Current Inpatient Medications Folic Acid (Folic Acid 1 Mg Tab) 1 mg PO DAILY [facility] Stop: 09/08/23 08:59 Last Admin: 08/13/23 09:22 Dose: 1 mg Lorazepam 1 mg/ Syringe 1 mls @ 2 mls/min IV UD PRN; Protocol PRN Reason: EtOH Withdrawal AWSS Score 6,7 Stop: 09/07/23 17:07 Last Admin: 08/11/23 16:31 Dose: 2 mls/min Lorazepam 2 mg/ Syringe 2 mls @ 2 mls/min IV UD PRN; Protocol PRN Reason: EtOH Withdrawal AWSS Score 8,9 Stop: 09/07/23 17:07 Acetylcysteine 8,400 mg/ (Dextrose) 1,042 mls @ 65.125 mls/hr IV 1800 PUJA; Protocol Last Admin: 08/11/23 18:33 Dose: Not Given Pantoprazole Sodium 40 mg/ (Syringe) 10 mls @ 5 mls/min IV BID@0900,2100 [facility] Stop: 09/11/23 20:59 Last Admin: 08/13/23 09:21 Dose: 5 mls/min Ceftriaxone Sodium (Rocephin) 2,000 mg in 50 mls @ 100 mls/hr IV Q24H [facility] Stop: 08/15/23 15:59 Magnesium Oxide (Magnesium Oxide 400 Mg Tab) 400 mg PO QAM [facility] Stop: 09/09/23 09:29 Last Admin: 08/13/23 09:22 Dose: 400 mg Miscellaneous (Remove Nicoderm Patch) 1 each N/A DAILY@0859 [facility] Stop: 09/08/23 08:58 Last Admin: 08/13/23 09:21 Dose: 1 each Nadolol (Nadolol 40 Mg Tab) 20 mg [facility] [place] Stop: 09/08/23 13:44 Last Admin: 08/13/23 09:22 Dose: 20 mg Nicotine (Nicotine 14 Mg/24 Hr Patch) 1 patch TD [facility] Stop: 09/07/23 17:29 Last Admin: 08/13/23 11:13 Dose: 1 patch Ondansetron HCl (Ondansetron Inj 2 Mg/Ml 2 Ml Vial) 4 mg IV Q6H PRN PRN Reason: Nausea Stop: 09/07/23 17:29 Last Admin: 08/11/23 16:01 Dose: 4 mg Pentoxifylline (Pentoxifylline 400mg Ext Rel Tab) 400 mg PO TID [facility] Stop: 09/10/23 13:59 Last Admin: 08/11/23 18:33 Dose: Not Given Prednisolone Sodium Phosphate (Prednisolone Sod Phosphate 15 Mg/5 Ml) 40 mg PO DAILY [facility] Stop: 09/11/23 14:59 Last Admin: 08/13/23 09:28 Dose: 40 mg Sucralfate (Sucralfate 1 Gm/10 Ml Udc) 1 gm PO QID [facility] Stop: 09/08/23 16:59 Last Admin: 08/13/23 17:00 Dose: 1 gm Thiamine HCl (Thiamine Hcl 100 Mg Tab) 100 mg PO QAM [facility] Stop: 09/08/23 08:59 Last Admin: 08/13/23 09:21 Dose: 100 mg
[2023-08-13] MEDS: cefTRIAXone SODIUM 2,000 MG/50 ML BAG IV SCH (18:09)
[2023-08-14 07:34] LABS: Hemoglobin 12.6 g/dl (14.0-18.0); Mean Corpuscular Hemoglobin 32.4 pg (25.0-34.0); Mean Corpuscular Hgb Conc 34.1 g/dL (32.0-36.0); Mean Corpuscular Volume 95.1 fL (80.0-100.0); Mean Platelet Volume 10.4 fL (9.4-12.4); Platelet Count 71 K/uL (130-400); RDW Coefficient of Variation 17.6 % (11.5-14.5); RDW Standard Deviation 60.6 fL (36.4-46.3); Red Blood Count 3.89 M/uL (4.70-6.10)
[2023-08-14 07:57] LABS: INR 1.9 (0.9-1.1); Prothrombin Time 19.4 Seconds (9.0-12.0)
[2023-08-14 07:58] LABS: Alanine Aminotransferase 77 U/L (7-52); Albumin Globulin Ratio 1.1 (0.9-2); Albumin Level 3.4 gm/dl (3.4-5.0); Alkaline Phosphatase 86 U/L (34-104); Anion Gap 4 (3-11); Aspartate Aminotransferase 99 U/L (13-39); BUN Creatinine Ratio 18.3 (10-20); Bilirubin,Total 3.6 mg/dl (0.2-1.0); Blood Urea Nitrogen 11 mg/dl (6-23); Calcium 8.9 mg/dl (8.6-10.3); Carbon Dioxide 29 mmol/L (21-32); Chloride 106 mmol/L (98-107); Creatinine Clr Calc Pharmacy 197.6 ml/min; Est GFR (African American) > 150.0 ml/min; Est GFR (Non-African American) 131.2 ml/min; Globulin 3.2 gm/dl (2.5-4.0); Glucose 95 mg/dl (70-99(Fasting)); Magnesium 1.8 mg/dl (1.7-2.4); Potassium 4.2 mmol/L (3.5-5.1); Sodium 139 mmol/L (136-145); Total Protein 6.6 gm/dl (6.0-8.3)
--- NOTE | 2023-08-14 08:34 | Hospitalist Progress Note ---
Date of Service August 14, 2023 Assessment & Plan (1) GIB (gastrointestinal bleeding): (2) Acute alcohol abuse: (3) Alcohol intoxication: (4) Tobacco abuse: (5) Bipolar 1 disorder: (6) Insomnia: (7) HTN (hypertension): Plan 32 yo M with history of alcohol misuse, alcoholic fatty liver disease being evaluated for cirrhosis, coagulopathy 2/2 liver disease, chronic anemia and other comorbidities who is admitted for concern of UGIB. He states that he experienced multiple episodes of tarry stool and coffee ground emesis, however, no episodes since arrival to ED. Denies any abdominal pain, just reports sudden nausea with vomiting. Last drink at noon on 08/07. states that he had been successful with 1 month of sobriety however is uncontrolled insomnia has prompted his relapse. labs on admission - reviewed and appear hemoconcentrated compared to baseline. transaminitis, elevated Etoh 405.2, elevated lipase Hematemesis Melena Scheduled for OP EGD given ?varices on imaging -Reports multiple episodes of hematemesis/melena. FOBT positive on arrival Hgb stable, however, question if hemoconcentrated given all cell counts are much higher than recent baselines s/p 1 L in ED, anticipate drop with repeat labs -type and cross - monitor H&H Protonix drip GI consulted - s/p EGD EGD - Findings: Grade I varices were found in the lower third of the esophagus. They were 3 mm in largest diameter. A small hiatal hernia was present. Severe portal hypertensive gastropathy was found in the stomach. Biopsies were taken with a cold forceps for histology. The examined duodenum was normal. Impression: - Grade I esophageal varices. - Small hiatal hernia. - Portal hypertensive gastropathy. Biopsied. - Normal examined duodenum. Recommendation: - [facility] to [facility] for [facility] care. - Advance diet as tolerated. - Continue present medications. - F/U with Dr. Hernandes as an outpatient for further Hepatology care Per GI - Patient underwent an EGD on 08/09/23 and was noted to have grade 1 esophageal varices and portal hypertensive gastropathy. Would continue IV Protonix gtt, begin Carafate 1 gm QID, antibiotics x 5 days (currently on Ceftriaxone), and initiate Nadolol 20 mg daily. We will await an updated liver ultrasound. US liver-1. Hepatosplenomegaly with findings suggestive of probable hepatic steatosis. 2. No hepatic mass identified. 3. Sludge-filled gallbladder with borderline wall thickening. No shadowing cholelithiasis or additional evidence to suggest acute cholecystitis. He will need close follow-up with his mathematician, Dr. Hernandes, at [facility]. 08/09 dark stool yesterday and 1 episode of emesis yesterday. No abd. pain, feeling well, asking to advance diet. Will advance and will cont. to monitor. 08/10 another episode of hematemesis in PM. Diet changed to clear for time being - cont. to monitor. Re-check H&H. 08/12 Hgb slightly down 11.7 (started prednisolone yesterday) -> closely monitor for bleeding Acute alcohol intoxication Alcohol use disorder -patient drinking 1L vodka a day, last drink 08/07 @ noon states he isn't addicted but rather struggles with insomnia -Gabapentin taper, ativan AWSS Chronic Normocytic anemia Chronic Coagulopathy iso liver disease INR 1.6, platelets 106 on admission Hgb baseline appears to be 12-13 in OP records -trend CBC, no indication for platelet transfusion at this time Transaminitis Alcohol related fatty liver disease Alcoholic hepatitis, Acute liver failure Last drink around noon 08/07, AST 206 > ALT 97, bili 4.8 Maddreys 26.9, MELD 18 on admission 08/10 Current Maddrey~50, MELD 23 - pt feels well - steroid use seem contraindicated in recent GI bleed, but considering txt (?pentoxifyllin, NAC)- discussed w/ GI (Dr. Garber - would not use steroid in recent GI bleed. pentoxifyllin not proved to help the condition 08/12/2023 Maddrey's score now 56.8 (poor prognosis), MELD score 24 (19.6% mortality in 3 months) - discussed w/ GI (Dr. Bowling) - pt's INR over the past several days increased from 1.6 to 2.3 (bili from 4.8 to 6.2) - pt in acute liver failure and recommend transfer. I contacted [facility] and discussed w/ hepatology - at this point do not recommend transfer as only would provide supportive measures that can be done at [facility] - mathematician also would consider starting prednisolone (despite hx of GI bleed and EGD findings, as bleeding seems to be controlled at this time). Discussed w/ the pt and pt agreeable to to try prednisolone and stay in the hospital for further monitoring. 08/12 Started prednisolone yesterday - Maddrey's score slightly improved to 48.9, and MELD score 21. Cont. prednisolone. Monitor liver function, and monitor for bleeding. Follows hepatology, imaging concerning for cirrhosis -Trend CMP Lipase trended down Bipolar disorder Insomnia prescribed Invega, however states he stopped taking as he "is not good with medications"--prescribed by addiction med followed by sleep med, pending sleep study Agreeable to psych consult for medication options to bridge to OP follow up, would like to discuss depot injection to not "have to take medications" Continue 300mg qhs gabapentin upon completion of above taper Psychiatry consulted - appreciate their recommendations Tobacco abuse discussed cessation nicotine patch DVT SCDs Dispo: tele PCP: Tami Upton MD, Anupam Conley FULL CODE Admission and Anticipated Discharge Date Admission Date: August 08, 2023 Results & Data Results & Data Vital Signs (Past 12 Hours) Vital Signs Temp Pulse Pulse Resp BP Pulse Ox O2 Del Method 08/14/23 07:33 36.5 C 64 20 144/85 H 98 Room Air 08/14/23 03:10 36.6 C 70 18 131/80 99 Room Air 08/13/23 23:00 37.0 C 74 16 135/79 99 Room Air 08/13/23 22:04 77
[2023-08-14 11:28] VITALS: BP 146/91; RESP 18; TEMP 97.5; O2SAT 99
--- NOTE | 2023-08-14 13:51 | Discharge Summary ---
Discharge Summary Date of Service August 14, 2023 Principal Dx & Hospital Course #1 = Principal Diagnosis (1) GIB (gastrointestinal bleeding): (2) Acute alcohol abuse: (3) Alcohol intoxication: (4) Tobacco abuse: (5) Bipolar 1 disorder: (6) Insomnia: (7) HTN (hypertension): Plan 32 yo M with history of alcohol misuse, alcoholic fatty liver disease being evaluated for cirrhosis, coagulopathy 2/2 liver disease, chronic anemia and other comorbidities who is admitted for concern of UGIB. He states that he experienced multiple episodes of tarry stool and coffee ground emesis, however, no episodes since arrival to ED. Denies any abdominal pain, just reports sudden nausea with vomiting. Last drink at noon on 08/07. states that he had been successful with 1 month of sobriety however is uncontrolled insomnia has prompted his relapse. labs on admission - reviewed and appear hemoconcentrated compared to baseline. transaminitis, elevated Etoh 405.2, elevated lipase Hematemesis Melena Scheduled for OP EGD given possible varices on imaging Reports multiple episodes of hematemesis/melena. FOBT positive on arrival Hgb stable, however, question if hemoconcentrated given all cell counts are much higher than recent baselines Protonix drip GI consulted - s/p EGD EGD - Findings: Grade I varices were found in the lower third of the esophagus. They were 3 mm in largest diameter. A small hiatal hernia was present. Severe portal hypertensive gastropathy was found in the stomach. Biopsies were taken with a cold forceps for histology. The examined duodenum was normal. Impression: - Grade I esophageal varices. - Small hiatal hernia. - Portal hypertensive gastropathy. Biopsied. - Normal examined duodenum. Recommendation: - Return patient to [facility] for ongoing care. - Advance diet as tolerated. - Continue present medications. - F/U with Dr. Hernandes as an outpatient for further Hepatology care Per GI - Patient underwent an EGD on 08/09/23 and was noted to have grade 1 esophageal varices and portal hypertensive gastropathy. Would continue IV Protonix gtt, begin Carafate 1 gm QID, antibiotics x 5 days (currently on Ceftriaxone), and initiate Nadolol 20 mg daily. We will await an updated liver ultrasound. US liver-1. Hepatosplenomegaly with findings suggestive of probable hepatic steatosis. 2. No hepatic mass identified. 3. Sludge-filled gallbladder with borderline wall thickening. No shadowing cholelithiasis or additional evidence to suggest acute cholecystitis. Case was discussed with GI once more on the day of discharge 08/14/23. They recommended discontinuation of steroids (see below) and close follow up with his Telephone Order Supervisor after discharge as well as alcohol rehab. He will need close follow-up with his rn angiography, Dr. Hernandes, at [facility]. Pt completed 5 days of ceftriaxone and was discharged with Carafate. he was agreeable to alcohol rehab on discharge, worked with CM and was given resources. Hgb stable at 12 on discharge. Transaminitis Alcohol related fatty liver disease Alcoholic hepatitis, Acute liver failure Last drink around noon 08/07, AST 206 > ALT 97, bili 4.8 Maddreys 26.9, MELD 18 on admission 08/10 Current Maddrey~50, MELD 23 - pt feels well - steroid use seem contraindicated in recent GI bleed, but considering txt (?pentoxifyllin, NAC)- discussed w/ GI (Dr. Garber - would not use steroid in recent GI bleed. pentoxifyllin not proved to help the condition, was held 08/12/2023 Maddrey's score now 56.8 (poor prognosis), MELD score 24 (19.6% mortality in 3 months) - discussed w/ GI (Dr. Bowling) - pt's INR over the past several days increased from 1.6 to 2.3 (bili from 4.8 to 6.2) - pt in acute liver failure and recommended transfer. Previous provider contacted [facility] and discussed w/ hepatology - They stated at this point do not recommend transfer as only would provide supportive measures that can be done at [facility] - rn angiography also would consider starting prednisolone (despite hx of GI bleed and EGD findings, as bleeding seems to be controlled at this time). Discussed w/ the pt and pt agreeable to to try prednisolone and stay in the hospital for further monitoring. 08/12 Started prednisolone the day before - Maddrey's score slightly improved to 48.9, and MELD score 21. 08/13 continued improvement in LFTs. Case was discussed with GI once more on the day of discharge 08/14/23. They recommended discontinuation of steroids and close follow up with his Telephone Order Supervisor after discharge as well as alcohol rehab. Steroids were discontinued on discharge. Acute alcohol intoxication Alcohol use disorder -patient drinking 1L vodka a day, last drink 08/07 @ noon states he isn't addicted but rather struggles with insomnia -Gabapentin taper, ativan AWSS Chronic Normocytic anemia Chronic Coagulopathy iso liver disease Thrombocytopenia INR 1.6, platelets 106 on admission Hgb baseline appears to be 12-13 in OP records -trend CBC, no indication for platelet transfusion at this time Bipolar disorder Insomnia prescribed Invega, however states he stopped taking as he "is not good with medi cations"--prescribed by addiction med followed by sleep med, pending sleep study Agreeable to psych consult for medication options to bridge to OP follow up, would like to discuss depot injection to not "have to take medications" Continue 300mg qhs gabapentin upon completion of above taper Psychiatry consulted - appreciate their recommendations -Consider trial of mirtazapine 15mg HS Tobacco abuse discussed cessation nicotine patch Notes For Next Care Provider Please ensure close followup with Hepatology Medication Changes From Visit Nadolol 20mg daily Sucralfate 1g QID Admission HPI Per Admitting Provider This is a 32 yr old M who has a significant PMH of 32-year-old male past medical history significant for hyperlipidemia, lung nodules, hepatosplenomegaly, alcohol induced fatty liver, history of compression fracture L1 lumbar vertebrae and T12 vertebrae, 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 He has been drinking daily for the past month, a pint of liquor a day. He started vomiting early this morning at 4 a.m. and moving his bowels that was consistent with blood. He has coffee grounds in his emesis and his stool was black, tarry and foul smelling so he came to the ED. He has been here for 1.5 hours and he states he knows the timeline of whats going to happen and he suspects he will get nauseated at the 4 hour jose luis. He does not feel he is addicted to alcohol. "I don't enjoy alcohol." He describes himself as an insomniac and he will go for a month with out sleeping and then he just decides to drink. He is interested in talking to someone regarding his severe insomnia. He has not had any vomiting in the ED. ED provider noted positive FOBT. He denies f/c/s, chest pain, sob, n/v/d, abd pain. In ED he was hypertensive and tachycardic. His alcohol level was significantly elevated. He was started on PPI bolus/gtt, received IV fluids, IV thiamine and folate. Of significance he was hospitalized last month 2/2 pancytopenia and required 2 units of plts. He did not have any bleeding. He does follow with [facility] [place], last seen in April, at that time was still sober. It was also felt he did have a component of DILI from abilify but he is since off of this. Admission Exam Per Admitting Provider GENERAL APPEARANCE: AxOx4, anxious appearing, restless, disheveled HEENT: NC, AT. MMM. EOMI, oropharynx clear. mild scleral icterus NECK: Supple without lymphadenopathy. No stiffness or restricted ROM. HEART: tachycardia LUNGS: CTAB, moving air well. No crackles or wheezes are heard. ABDOMEN: Soft, nontender, nondistended with good bowel sounds heard. BACK: No CVAT, no obvious deformity. EXTREMITIES: Without cyanosis, clubbing or edema. NEUROLOGICAL: Grossly nonfocal. Alert and oriented, moving all 4 extremities. CN not formally tested but appear grossly intact. Skin: Warm and dry without any rash, mild jaundice Discharge Exam General: Alert, oriented. No acute distress Psych: Appropriate mood and affect Neuro: No gross deficits HEENT: NC/AT, slight scleral icterus Chest: Nontender to palpation. CV: RRR, Normal s1, s2. No murmurs appreciated Resp: Breath sounds clear bilaterally, no increased effort of breathing. No crackles/rhonchi/rales. Abdomen: Soft, nontender, nondistended. Extremities: No edema in lower extremities bilaterally. Updated Medication List Medication Instructions Recorded Confirmed Type Medical Cannibus 1 dose inhalation DIRECTED PRN 06/14/23 08/08/23 History NEEDED folic acid 1 mg tablet 1 mg PO DAILY 06/14/23 08/08/23 History gabapentin 100 mg capsule 300 mg PO HS 06/14/23 08/08/23 History nadolol 40 mg tablet 20 mg (1/2 x 40 mg) PO QAM #15 tabs 08/14/23 Rx sucralfate 100 mg/mL oral 1 g (10 mL) PO QID #1,000 mL 08/14/23 Rx suspension Hospital Stay Data Consultations 08/08/23 16:23 Consult Gastroenterology Routine 08/08/23 16:27 ED Decision to Admit Stat 08/08/23 17:08 Consult Psychiatry Routine 08/14/23 09:02 Consult Gastroenterology Routine Procedures Performed Operation Date: 08/09/23 16:30 Actual Procedures p EGD Biopsy Cytology - Eren Cullen Case, DO Diagnostic Imagining Performed 08/09/23 11:02 US abdomen limited Routine Abdomen Ultrasound 08/09/23 11:02 ABDOMINAL ULTRASOUND, RIGHT UPPER QUADRANT HISTORY: Elevated LFTs Fatty liver vs cirrhosis, distended abdomen. COMPARISON: 06/12/2021. FINDINGS: Pancreas: The pancreas is mostly obscured by bowel gas. Liver: Heterogeneous and enlarged measuring up to 18 cm. No definite marginal nodularity. No discrete hepatic mass identified. Mildly increased echogenicity of the parenchyma. Gallbladder: Borderline wall thickening, 4 mm. Sludge filled gallbladder. No gallstones. CBD: 0.4 cm. Right kidney: No hydronephrosis. Spleen is enlarged, 17.7 cm. IMPRESSION: 1. Hepatosplenomegaly with findings suggestive of probable hepatic steatosis. 2. No hepatic mass identified. 3. Sludge-filled gallbladder with borderline wall thickening. No shadowing cholelithiasis or additional evidence to suggest acute cholecystitis. ACT 112: Negative or not required by law. Electronically signed by: Reed Lambert M.D. 08/09/2023 2:23 PM Pending Results Patient Have Any Pending Studies at Discharge: No Discharge Instructions Given to Patient (Per Discharging Provider) Mr. Storey, You are being discharged. The box inspector recommended today that you discontinue steroids and follow up closely as an outpatient with your rn angiography Dr Hernandes. They also recommended that you go to rehab for your alcohol use. They started you on the new medications nadolol and carafate that you are being discharged with. You indicated that your bleeding has stopped. Once again please keep close follow up with your box inspector after discharge. Also, please keep close follow up with your primary care provider after discharge. Please do not hesitate to come back to the emergency room if your symptoms worsen or return. It was a pleasure taking care of you while you were here. Total Time Total Time Spent Total Time Spent (In Minutes): 75
[2023-08-14 15:16] VITALS: PULSE 64
--- NOTE | 2023-08-15 08:57 | Coding Query ---
CODING QUERY To promote full compliance with coding requirements relating to patient care, provider participation is requested in all cases of plant specialist uncertainty. Please assist us with the question(s) below: Coding Question(s): Alcohol dependent patient admitted with GI hemorrhage. EGD finding grade 1 esophageal varix. Also dx'd with portal hypertensive gastropathy. Please document, if known or suspected, the etiology the GI hemorrhage. Thanks for your help! Duglas Crawford [employer] [facility] Physician's Response(s): Unknown Principal Diagnosis: "that condition established after study, to be chiefly responsible for occasioning the admission of the patient to the hospital for care." Co-Existing Principal Diagnosis: "when two or more diagnoses equally meet the criteria for principal diagnosis as determined by the circumstances of admission, diagnostic work up, and/or therapy provided, and the Alphabetic Index, Tabular List, or another coding guideline does not provide sequencing direction, any one of the diagnoses may be sequenced first." "When the physician has documented what appears to be a current diagnosis in the body of the record, but has not included the diagnosis in the final diagnostic statement, the physician should be asked whether the diagnosis should be added." (Source Coding Clinic 2 QTR90. p3-4) SCARLETD
== END 2023-08-14 15:16 | disposition home or self-care (01) | DRG 377 ==
LOC: ED 14:52 → 2S 16:23 → SUATTDRO 16:23 → 2S 17:20

== ENCOUNTER 2023-10-14 15:23 | Observation (INO) ==
[2023-10-14] MEDS: SODIUM CHLORIDE 0.9% 1,000 ML IV STA (15:59)
[2023-10-14] MEDS: LORazepam 1 MG/1 ML SYR ED Inj Use IV STA (15:59)
[2023-10-14 16:00] LABS: iSTAT Creatinine 0.7 mg/dl (0.6-1.3); iSTAT Hemoglobin 15.6 g/dl (14.0-18.0); iSTAT Ionized Calcium 1.1 mmol/l (1.12-1.32); iSTAT Potassium 3.7 mmol/L (3.3-5.0)
[2023-10-14] MEDS: ONDANSETRON INJ 2 MG/ML 2 ML VIAL IV STA (16:01)
--- NOTE | 2023-10-14 16:05 | Emergency Department Note ---
Impression & Plan Alcohol withdrawal syndrome, Alcohol abuse ED Provider Note NAME: ADONIS PENNY AGE: 33 SEX: M : 1990 ARRIVES VIA: Walk-In INFORMANT: Patient, ED PROVIDER(S): George Dennis DO CHIEF COMPLAINT: Alcohol withdrawal HPI: The patient is a 33-year-old male who has a history of alcohol dependence who presented to the emergency department for an evaluation of withdrawal. The patient states he has had no alcohol since yesterday and feels though he is going into withdrawal. He denies having any chest pain or difficulty breathing but does complain of shakiness anxiety and vomiting. He has had multiple episodes of emesis. He is noticed some dark stool as well as some dark emesis. He has a history of GI bleeding as well as gastritis. He states that he has been compliant with his outpatient medications otherwise. He wishes to go into detox again and does not wish to continue drinking. ROS: See above HPI for pertinent positives & negatives. A total of 10 systems reviewed and were otherwise negative. PAST MEDICAL HISTORY: See Below PAST SURGICAL HISTORY: See Below FAMILY HISTORY: See Below SOCIAL HISTORY: See Below HOME MEDICATIONS: See Below ALLERGIES: See Below VITALS: See Below PHYSICAL EXAMINATION: GENERAL: The patient is awake and alert. The patient is very anxious appearing. EYES: The conjunctivae are clear. The pupils are round and reactive. EARS, NOSE, MOUTH AND THROAT: The nose is without any evidence of any deformity. Mucous membranes are moist. Tongue is midline. NECK: The neck is nontender and supple. RESPIRATORY: Normal respiratory effort is noted there is no evidence of wheezing rhonchi or rales CARDIOVASCULAR: Regular rate and rhythm noted there no murmurs rubs or gallops normal S1 normal S2. GASTROINTESTINAL: The abdomen is soft. Abdomen is nontender. MUSCULOSKELETAL/EXTREMITIES: There is no evidence of gross deformity full range of motion is noted in the hips and shoulders. SKIN: There is no obvious evidence of any rash. There are no petechiae, pallor or cyanosis noted. NEUROLOGIC: Patient is awake alert and oriented x3 strength is symmetric patellar reflexes are 3+ bilaterally MEDICAL DECISION MAKING: The patient is a 33-year-old male who presented to the emergency department for an evaluation of alcohol withdrawal. The patient is a history of chronic alcohol abuse. He has been through withdrawal multiple times before. He came to the emergency department today requesting medical admission for alcohol withdrawal. The patient was treated with IV fluids IV thiamine and IV Ativan in the emergency department. He was reevaluated multiple times. On subsequent reevaluation his symptoms were significantly improved. His nausea and vomiting was treated with Zofran and he was feeling much better. He was able to tolerate liquids. I discussed the patient's laboratory results with him. I discussed his condition with the on-call [facility] hospitalist. He did report some GI bleeding but at this time he appears stable. The hospitalist has agreed to evaluate the patient in the emergency department for further management and disposition. Triage Nursing notes reviewed. Prior medical records reviewed Vital Signs: reviewed and remarkable for no significant abnormalities Differential diagnosis: Gastroenteritis, food borne illness, infections, appendicitis, diverticulitis, inflammatory bowel disease, obstruction, GI bleed, biliary pathology, volvulus, as well as other pathologies. ER treatment provided: See below Diagnostics interpreted by me: ECG: EKG was obtained in the emergency department. My interpretation is normal sinus rhythm at 98 bpm. There was no ectopy. There was no acute ST segment abnormalities noted. This was compared to a tracing from March 09, 2023. No changes were noted. Cardiac Monitoring: An order was placed for continuous cardiac monitoring. The monitor shows a rate of 107 bpm with sinus tachycardia. Laboratory studies: As stated above and show below. Imaging studies: See below. Consultation(s): I discussed this case with Dr. Colbert who is on-call for the [facility]. Past Med/Surg History Problem List (Updated 10/14/23 @ 18:05 by George Dennis DO) Alcohol abuse (Acute) Alcohol withdrawal syndrome (Acute) Alcohol use disorder, severe, dependence Alcohol intoxication GIB (gastrointestinal bleeding) (Acute) Alcoholic hepatitis Acute alcohol abuse (Acute) Pancytopenia (Acute) Medical History HTN (hypertension) Thrombocytopenia OCD (obsessive compulsive disorder) Insomnia Bipolar 1 disorder Tobacco abuse Alcohol dependence Compression fracture of T12 vertebra Compression fracture of L1 lumbar vertebra Hepatosplenomegaly Mixed hyperlipidemia Alcohol abuse Surgical History Hx of tonsillectomy Hx of colonoscopy 2015, WNL, internal hemorrhoids Social History Smoking Status: Current every day smoker Tobacco Type: Cigarettes Cigarettes Per Day: 10; Do You Dip or Chew Tobacco: No; Hx Alcohol Use: Yes Alcohol type: hard liquor Hx Substance Use: Yes Last Used Substance: Hours (ago) Preferred Language: Slovenian Communication Ability: Effective Fulling Machine Operator Required: No Beliefs That Will Affect Care: None Current Living Situation: Alone Feels Safe at Home: Yes Assistive Devices: Glasses Allergies Allergies Allergy/AdvReac Type Severity Reaction Status Date / Time No Known Allergies Allergy Verified 08/09/23 12:13 Home Meds Home Medications Medication Instructions Recorded Confirmed Medical Cannibus 1 dose inhalation DIRECTED PRN 06/14/23 08/08/23 NEEDED folic acid 1 mg tablet 1 mg PO DAILY 06/14/23 08/08/23 gabapentin 100 mg capsule 300 mg PO HS 06/14/23 08/08/23 Previous Rx's Medication Instructions Recorded nadolol 40 mg tablet 20 mg (1/2 x 40 mg) PO QAM #15 tabs 08/14/23 sucralfate 100 mg/mL oral 1 g (10 mL) PO QID #1,000 mL 08/14/23 suspension Results & Data (ED) Vital Signs Vital Signs - 24 hr 10/14/23 15:24 10/14/23 16:06 10/14/23 16:08 Temperature 36.4 C L Temperature Source Oral Pulse Rate 105 H 98 H Pulse Rate [Right Finger] 98 H Respiratory Rate 22 21 21 Respiratory Effort / Characteristics Non-Labored Spontaneous Non-Labored Respiratory Depth Normal Respiratory Pattern Regular Blood Pressure 155/78 H Blood Pressure [Left Arm] 130/76 Blood Pressure Mean 103 Blood Pressure Mean [Left Arm] 94 Blood Pressure Position [Left Arm] Lying Pulse Oximetry 98 100 100 Oxygen Delivery Method Room Air Room Air Room Air Sepsis Recent Fever Within 48 Hours No Sepsis New/Unexplained Change in Mental Status N/A Sepsis Action Taken by Nursing No Action Required 10/14/23 16:13 Temperature Temperature Source Pulse Rate 107 H Pulse Rate [Right Finger] Respiratory Rate Respiratory Effort / Characteristics Respiratory Depth Respiratory Pattern Blood Pressure Blood Pressure [Left Arm] Blood Pressure Mean Blood Pressure Mean [Left Arm] Blood Pressure Position [Left Arm] Pulse Oximetry Oxygen Delivery Method Sepsis Recent Fever Within 48 Hours Sepsis New/Unexplained Change in Mental Status Sepsis Action Taken by Long Term Medications Current Medication List: was personally reviewed by me Laboratory Data Attestation: I reviewed the patient's lab results. 10/14/23 15:40 10/14/23 15:40 Lab Results 10/14/23 10/14/23 Range/Units 15:40 15:46 WBC 6.72 (4.8-10.8) K/ul RBC 4.76 (4.70-6.10) M/uL Hgb 15.2 (14.0-18.0) g/dl POC Hgb 15.6 (14.0-18.0) g/dl Hct 44.0 (42.0-52.0) % POC Hct 46 (42-52) % MCV 92.4 (80.0-100.0) fL MCH 31.9 (25.0-34.0) pg MCHC 34.5 (32.0-36.0) g/dL RDW Std Deviation 53.1 H (36.4-46.3) fL RDW Coeff of Joe 15.6 H (11.5-14.5) % Plt Count 169 (130-400) K/uL MPV 9.6 (9.4-12.4) fL Immature Gran % (Auto) 0.3 % Neut % (Auto) 54.1 % Lymph % (Auto) 36.0 % Toombs % (Auto) 7.4 % Eos % (Auto) 1.0 % Baso % (Auto) 1.2 % Neut # (Auto) 3.63 (1.40-6.50) K/uL Lymph # (Auto) 2.42 (1.20-3.40) K/uL [place]ombs # (Auto) 0.50 (0.11-0.59) K/uL Eos # (Auto) 0.07 (0.00-0.50) K/uL Baso # (Auto) 0.08 (0.00-0.20) K/uL Immature Gran # (Auto) 0.02 (0.01-0.20) K/uL PT 13.9 H (9.0-12.0) Seconds INR 1.3 H (0.9-1.1) POC Sodium 142 (135-144) mmol/L Sodium 140 (136-145) mmol/L POC Potassium 3.7 (3.3-5.0) mmol/L Potassium 3.7 (3.5-5.1) mmol/L POC Chloride 106 (101-112) mmol/L Chloride 102 (98-107) mmol/L Carbon Dioxide 22 (21-32) mmol/L POC Total CO2 20 L (24-31) mmol/L Anion Gap 16 H (3-11) POC Anion Gap 21.0 (16-25) mmol/L POC BUN 8 (7-18) mg/dl BUN 10 (6-23) mg/dl Creatinine 0.62 (0.6-1.4) mg/dl POC Creatinine 0.7 (0.6-1.3) mg/dl Est Cr Clr Drug Dosing 188.5 ml/min Est GFR ( Amer) 149.0 ml/min Est GFR (Non-Af Amer) 128.5 ml/min BUN/Creatinine Ratio 16.1 (10-20) Glucose 121 H (70-99(Fasting)) mg/dl POC Glucose (other) 122 H (70-99) mg/dl Calcium 10.0 (8.6-10.3) mg/dl POC Ioniz Calcium William 1.10 L (1.12-1.32) mmol/l Magnesium 1.5 L (1.7-2.4) mg/dl Total Bilirubin 3.2 H (0.2-1.0) mg/dl AST 111 H (13-39) U/L ALT 58 H (7-52) U/L Alkaline Phosphatase 81 (34-104) U/L Troponin I High Sens 4.6 (0-20) pg/ml Total Protein 7.9 (6.0-8.3) gm/dl Albumin 4.3 (3.4-5.0) gm/dl Globulin 3.6 (2.5-4.0) gm/dl Albumin/Globulin Ratio 1.2 (0.9-2) Lipase 75 (11-82) U/L Ethyl Alcohol mg/dL 38.2 H (<10.0) mg/dl Administered Medications Discontinued Medications Sodium Chloride (Nss) 1,000 mls @ 999 mls/hr IV .Q1H1M STA Stop: 10/14/23 16:49 Last Admin: 10/14/23 15:59 Dose: 999 mls/hr Documented By: DAMEON Thiamine HCl 200 mg/ Sodium (Chloride) 52 mls @ 210 mls/hr IV NOW STA Stop: 10/14/23 16:03 Last Infusion: 10/14/23 16:59 Dose: Infused Documented By: Admin: 10/14/23 16:36 Dose: 210 mls/hr Documented By: DAMEON Magnesium Sulfate/Dextrose (Magnesium Sulfate / D5w) 1 gm in 100 mls @ 100 mls/hr IV NOW STA Stop: 10/14/23 17:21 Last Admin: 10/14/23 16:42 Dose: 100 mls/hr Documented By: DAMEON Lorazepam (Lorazepam 1 Mg/1 Ml Syr Ed Inj Use) 1 mg IV ONE STA Stop: 10/14/23 15:50 Last Admin: 10/14/23 15:59 Dose: 1 mg Documented By: DAMEON Ondansetron HCl (Ondansetron Inj 2 Mg/Ml 2 Ml Vial) 4 mg IV NOW STA Stop: 10/14/23 15:50 Last Admin: 10/14/23 16:01 Dose: 4 mg Documented By: DAMEON Discharge Plan Visit Data Chief Complaint: Alcohol Withdrawal Stated Complaint: ALCOHOL WITHDRAWAL ED Provider: George Dennis Discharge Problem: Alcohol withdrawal syndrome, Alcohol abuse Patient Disposition: Being Evaluated by Hospitalist Forms Stand Alone Forms: [facility], Suicide Prevention Resources Prescriptions Prescriptions: No Action nadolol 40 mg Tablet 20 mg PO QAM Qty: 15 0RF sucralfate 100 mg/mL Suspension 1 g PO QID Qty: 1000 0RF folic acid 1 mg tablet 1 mg PO DAILY gabapentin 100 mg Capsule 300 mg PO HS Medical Cannibus 1 dose inhalation DIRECTED PRN (Reason: NEEDED) Rx Instructions: SMOKES/VAPS Referrals Referrals: Tami Upton MD [Primary Care Provider] - Discharge Problem: Alcohol withdrawal syndrome Qualifiers: Complication of substance-induced condition: with unspecified complication Q ualified Code(s): F10.939 - Alcohol use, unspecified with withdrawal, unspecified
[2023-10-14 16:06] LABS: Basophils # (auto) 0.08 K/uL (0.00-0.20); Basophils % (auto) 1.2 %; Eosinophils # (auto) 0.07 K/uL (0.00-0.50); Hemoglobin 15.2 g/dl (14.0-18.0); Immature Granulocytes # (auto) 0.02 K/uL (0.01-0.20); Immature Granulocytes % (auto) 0.3 %; Lymphocytes # (auto) 2.42 K/uL (1.20-3.40); Mean Corpuscular Hemoglobin 31.9 pg (25.0-34.0); Mean Corpuscular Hgb Conc 34.5 g/dL (32.0-36.0); Mean Corpuscular Volume 92.4 fL (80.0-100.0); Mean Platelet Volume 9.6 fL (9.4-12.4); Monocytes % (auto) 7.4 %; Neutrophils # (auto) 3.63 K/uL (1.40-6.50); Neutrophils % (auto) 54.1 %; Platelet Count 169 K/uL (130-400); RDW Coefficient of Variation 15.6 % (11.5-14.5); RDW Standard Deviation 53.1 fL (36.4-46.3); Red Blood Count 4.76 M/uL (4.70-6.10); White Blood Count 6.72 K/ul (4.8-10.8)
[2023-10-14 16:17] LABS: Albumin Globulin Ratio 1.2 (0.9-2); Albumin Level 4.3 gm/dl (3.4-5.0); BUN Creatinine Ratio 16.1 (10-20); Bilirubin,Total 3.2 mg/dl (0.2-1.0); Creatinine Clr Calc Pharmacy 188.5 ml/min; Est GFR (Non-African American) 128.5 ml/min; Globulin 3.6 gm/dl (2.5-4.0); Magnesium 1.5 mg/dl (1.7-2.4); Potassium 3.7 mmol/L (3.5-5.1); Total Protein 7.9 gm/dl (6.0-8.3)
[2023-10-14 16:23] LABS: Troponin I High Sensitivity 4.6 pg/ml (0-20)
[2023-10-14 16:32] LABS: INR 1.3 (0.9-1.1); Prothrombin Time 13.9 Seconds (9.0-12.0)
[2023-10-14] MEDS: THIAMINE HCL 200 MG in SODIUM CHLORIDE 0.9% 50 ML IV STA (16:36)
[2023-10-14] MEDS: MAGNESIUM SULFATE / D5W 1 GM/100 ML BAG IV STA (16:42)
[2023-10-14] MEDS: PANTOprazole 40 MG in SYRINGE 0 ML IV ONE (19:35)
--- NOTE | 2023-10-14 19:41 | History & Physical Report ---
Date of Service October 14, 2023 Assessment & Plan (1) Alcohol withdrawal syndrome: (2) Alcohol abuse: (3) GIB (gastrointestinal bleeding): Plan: Alcohol withdrawal and coffee-ground emesis since this morning Plan 33-year-old male with history of alcoholism, liver cirrhosis with portal hypertension, esophageal varices, coagulopathy, chronic anemia, bipolar disorder presenting with alcohol withdrawal and accompanying emesis starting this morning. Alcohol withdrawal Alcohol abuse Presents to the ER for detox Drinks 1 bottle of vodka daily, last drink last night Alcohol withdrawal protocol including Librium taper, IV thiamine and folic acid, IV fluids Patient prefers to do outpatient alcohol rehab Episode of coffee-ground emesis, bright red blood vomiting possible Esophagitis, Roz Barney Tear, Bleeding Esophageal Varices History of esophageal varices, coagulopathy, liver cirrhosis Hemoglobin 15 which is actually improved compared to last admission, 12 INR 1.3, platelet count 169 Protonix IV, ceftriaxone IV, octreotide IV N.p.o., IV fluids Repeat hemoglobin this evening at 10pm Continue with usual nadolol 40 mg daily GI consulted QT prolongation QT corrected 525 Magnesium being replaced Monitor and replace electrolytes Avoid QT prolonging agents EKG in the morning Chronic back pain On gabapentin 600 mg at bedtime, 300 mg in the morning Hold off for now while on Librium protocol Bipolar disorder Hold paliperidone until QTc C normalizes Mood stable DVT prophylaxis SCDs for now in light of GI bleed Full code Disposition Lives at home Prefers outpatient alcohol rehab History of Present Illness Chief Complaint: Alcohol withdrawal and coffee-ground emesis since this morning Primary Care Provider: Tami Upton MD 33-year-old male with history of alcoholism, liver cirrhosis with portal hypertension, esophageal varices, coagulopathy, chronic anemia, bipolar disorder presenting with alcohol withdrawal and accompanying emesis starting this morning. Patient states he drinks 1 bottle of vodka per day and his last drink was yesterday. He started to experience withdrawal symptoms this morning including tremors and vomiting-10 times, with coffee-ground material as well as bright red blood occasionally. Patient would like to undergo detox hence proceeded to the ER. At the ER, patient received stable blood pressure, mild tachycardia, afebrile. Hemoglobin 15.6 He was given Protonix 40 mg IV, Ativan 1 mg, thiamine 20 mg IV, Zofran and magnesium IV. On exam, patient states he feels somewhat improved since receiving above medications. No active nausea, abdominal discomfort also improving. No active sweating, tremors, anxiety, confusion. Allergies Allergy/AdvReac Type Severity Reaction Status Date / Time No Known Allergies Allergy Verified 10/14/23 19:46 Home Medications Medication Instructions Recorded Confirmed Type celecoxib 200 mg capsule 200 mg PO QAM 10/14/23 10/14/23 History folic acid 1 mg tablet 1 mg PO QAM 10/14/23 10/14/23 History furosemide 20 mg tablet 20 mg PO DAILY PRN .leg swelling 10/14/23 10/14/23 History gabapentin 300 mg capsule 300 mg PO QAM 10/14/23 10/14/23 History gabapentin 300 mg capsule 600 mg PO QPM 10/14/23 10/14/23 History multivitamin 1 tab PO DAILY 10/14/23 10/14/23 History nadolol 40 mg tablet 40 mg PO QAM 10/14/23 10/14/23 History paliperidone 9 mg tablet,extended 9 mg PO QAM 10/14/23 10/14/23 History release 24 hr sucralfate 100 mg/mL oral 0 ml PO DIRECTED PRN Acid Reflux 10/14/23 10/14/23 History suspension vitamin B complex 1 tab PO DAILY 10/14/23 10/14/23 History Past Med/Surg History Problem List (Updated 10/14/23 @ 18:05 by George Dennis DO) Alcohol abuse (Acute) Alcohol withdrawal syndrome (Acute) Alcohol use disorder, severe, dependence Alcohol intoxication GIB (gastrointestinal bleeding) (Acute) Alcoholic hepatitis Acute alcohol abuse (Acute) Pancytopenia (Acute) Medical History HTN (hypertension) Thrombocytopenia OCD (obsessive compulsive disorder) Insomnia Bipolar 1 disorder Tobacco abuse Alcohol dependence Compression fracture of T12 vertebra Compression fracture of L1 lumbar vertebra Hepatosplenomegaly Mixed hyperlipidemia Alcohol abuse Surgical History Hx of tonsillectomy Hx of colonoscopy 2015, WNL, internal hemorrhoids Social History Smoking Status: Current every day smoker Tobacco Type: Cigarettes Cigarettes Per Day: 10; Do You Dip or Chew Tobacco: No; Hx Alcohol Use: Yes Alcohol type: hard liquor Hx Substance Use: Yes Last Used Substance: Hours (ago) Preferred Language: Yoruba Communication Ability: Effective Market Stall Vendor Required: No Beliefs That Will Affect Care: None Current Living Situation: Alone Feels Safe at Home: Yes Assistive Devices: Glasses Review of Systems Review of Systems: all noted and negative except for above Physical Exam Physical Exam: General- oriented x 3, not in distress, speaks in sentences with no effort or accessory muscle use Head- atraumatic Eyes- PERRL, EOMI, anicteric ENT- oropharynx clear Neck- supple, no JVD, no adenopathy, no thyromegaly; carotids +2/2, no bruits appreciated Lungs- clear to auscultation bilaterally, no rales/wheezes Heart- normal rate, regular rhythm; no murmur, no gallop, no rub appreciated Abdomen- normal bowel sounds, nondistended, soft, Mild tenderness in all quadrants, no masses or hepatosplenomegaly Extremities- no pretibial edema, no calf tenderness; peripheral pulses intact No tremors Neuro- alert, oriented x 3; CN 2-12 grossly intact; motor 5/5 bilaterally;sensation 100% on all extremities; no other gross focal neurologic deficits Skin- warm & dry Results & Data Results & Data Vital Signs (Past 12 Hours) Vital Signs Temp Pulse Pulse Resp BP BP Pulse Ox 10/14/23 18:37 102 H 20 107/67 98 10/14/23 18:04 103 H 21 130/76 96 10/14/23 16:13 107 H 10/14/23 16:08 98 H 21 130/76 100 10/14/23 16:06 98 H 21 100 10/14/23 15:24 36.4 C L 105 H 22 155/78 H 98 O2 Del Method 10/14/23 18:37 Room Air 10/14/23 18:04 Room Air 10/14/23 16:13 10/14/23 16:08 Room Air 10/14/23 16:06 Room Air 10/14/23 15:24 Room Air all noted and reviewed including below Code Status & VTE Plan VTE Prophylaxis Plan VTE Prophylaxis will be ordered: No (1) Alcohol withdrawal syndrome Complication of substance-induced condition: with unspecified complication Qualified Code(s): F10.939 - Alcohol use, unspecified with withdrawal, unspecified
[2023-10-14] MEDS ORDERED: LORazepam 2 MG in SYRINGE 1 ML IV PRN (21:31)
[2023-10-14] MEDS ORDERED: STAT IV/IM STA (21:31)
[2023-10-14] MEDS ORDERED: LORazepam 3 MG in SYRINGE 1.5 ML IV PRN (21:31)
[2023-10-14] MEDS ORDERED: PANTOprazole 40 MG in DEXTROSE 5% 100 ML IV STA (21:31)
[2023-10-14] MEDS ORDERED: chlordiazePOXIDE ALCOHOL WITHDRAWL 25MG PO STA (21:31)
[2023-10-14] MEDS ORDERED: Ativan IV Alcohol Withdrawal--Active Protocol IV PRN (21:31)
[2023-10-14] MEDS ORDERED: LORazepam 1 MG in SYRINGE 0.5 ML IV PRN (21:31)
[2023-10-14 21:50] LABS: Appearance Urine Clear (Clear); Bacteria Urine Automated None Seen (None Seen); Bilirubin Urine Negative (Negative); Blood Urine Negative (Negative); Cast Urine Automated 0-2 /lpf (0-2); Color Urine Dark Yellow; Epithelial Cell Urine Auto 0-2 /hpf (0-2); Glucose Urine UA Negative (Negative); Ketones Urine Trace (Negative); Leukocyte Esterase Urine Trace (Negative); Nitrite Urine Negative (Negative); Protein Urine 1+ (Negative); RBC Urine Automated 0-2 /hpf (0-2); Specific Gravity Urine 1.024 (1.000-1.030); Urobilinogen Urine Negative (Negative); WBC Urine Automated 0-5 /hpf (0-5); pH Urine 8.5 (4.5-7.5)
[2023-10-14] MEDS: PROMETHAZINE 12.5 MG/50.5 ML BAG IV STA (22:10)
[2023-10-14] MEDS: LORazepam 1 MG in SYRINGE 0.5 ML IV PRN (22:10)
[2023-10-14] MEDS: FOLIC ACID 1 MG in SYRINGE 9.8 ML IV SCH (22:22)
[2023-10-14] MEDS: OCTREOTIDE ACETATE 50 MCG in SYRINGE 9.5 ML IV STA (22:22)
[2023-10-14 22:29] LABS: Amphetamines+Metham, Urine Neg (Neg); Barbiturates, Urine Neg (Neg); Benzodiazepine, Urine Neg (Neg); Cocaine, Urine Neg (Neg); Fentanyl, Urine Neg (Neg); MDMA (Ecstacy), Urine Neg (Neg); Marijuana, Urine Pos (Neg); Methadone, Urine Neg (Neg); Opiate, Urine Neg (Neg); Phencyclidine, Urine Neg (Neg)
[2023-10-14] MEDS: NSS + 20MEQ KCL 20 MEQ/1,000 ML BAG IV SCH (22:36)
[2023-10-14] MEDS: OCTREOTIDE ACETATE 500 MCG in 0.9 % SODIUM CHLORIDE 100 ML IV SCH (22:36)
[2023-10-14] MEDS: PANTOprazole 40 MG in DEXTROSE 5% MINI-B 100 ML IV STA (22:38)
[2023-10-14] MEDS: chlordiazePOXIDE HCl 25 MG CAP PO SCH (22:41)
[2023-10-14 22:51] LABS: Hematocrit (blood only) 39.4 % (42.0-52.0); Hemoglobin 13.6 g/dl (14.0-18.0)
[2023-10-14] MEDS: cefTRIAXone SODIUM 2,000 MG/50 ML BAG IV SCH (23:02)
[2023-10-14] MEDS: PANTOprazole 40 MG in DEXTROSE 5% MINI-B 100 ML IV SCH (23:33)
--- OUTSIDE RECORDS SUMMARY | 2023-10-15 03:05 | External Medical Summary | Summary of Care ---
Author Name Unknown Organization [facility] Address [address] [place] [address] Phone [phone] Care Team Providers Care Silk Spooler Name Role Phone Tami Upton MD Primary Care Provi elena Reason for Visit * Reason Comments Follow Up Pt is here today for 4 week follow up.Pt in need of med refills. Encounter Details Date Type Department Care Team ([facility] st Contact Info) Description 09/26/2023 4:20 PM EDT Office Visit [address] [phone] Tami Upton MD [address] [place] [phone] Alcoholic cirrhosis of liver without ascites (HCC)*; Bilateral leg edema; Other insomnia; Bipolar affective disorder, current episode mixed, current episode severity unspecified (HCC) Allergies No known active allergiesdocumented as of this encounter (statuses as of 09/28/2023) Medications Medication Sig Dispensed Refills Start Date End Date Status Folic Acid 1 MG Oral Tablet Take 1 Tablet by mouth in the morning. 30 Tablet 2 06/26/2023 Active Melatonin 10 MG Oral Tablet Chewable Take by mouth. Active Sucralfate 1 GM/10ML Oral Suspension (Carafate) Take 10 mL by mouth in the morning and 10 mL at noon and 10 mL in the evening and 10 mL before bedtime. 08/15/2023 Active Gabapentin 300 MG Oral Capsule (Neurontin) Take 1 Capsule by mouth in the morning and 1 Capsule before bedtime. 08/26/2023 Active Celecoxib 200 MG Oral Capsule (CeleBREX) Take 1 Capsule by mouth in the morning. 20 Capsule 2 09/17/2023 Active Omeprazole 20 MG Oral Capsule Delayed Release (PriLOSEC) Take 1 Capsule by mouth in the morning. Active Furosemide 20 MG Oral Tablet (Lasix)Indications :Bilateral leg edema Take 1 Tablet by mouth daily as needed (Leg swelling). 30 Tablet 2 09/26/2023 Active Paliperidone ER 9 MG Oral Tablet Extended Release 24 Hour (Invega)Indication s:Other insomnia,Bipolar affective disorder, current episode mixed, current episode severity unspecified (HCC) Take 1 Tablet by mouth in the morning. 90 Tablet 3 09/26/2023 Active Nadolol 40 MG Oral Tablet (Corgard) Take 1 Tablet by mouth in the morning. 90 Tablet 1 09/26/2023 Active Nadolol 40 MG Oral Tablet (Corgard) Take 1 Tablet by mouth in the morning. 09/26/2023 Discontinued (Refill) Paliperidone ER 9 MG Oral Tablet Extended Release 24 Hour (Invega)Indication s:Other insomnia,Bipolar affective disorder, current episode mixed, current episode severity unspecified (HCC) Take 1 Tablet by mouth in the morning. 30 Tablet 5 08/28/2023 09/26/2023 Discontinued (Refill) Furosemide 20 MG Oral Tablet (Lasix) Take 1 Tablet by mouth in the morning. 7 Tablet 09/12/2023 09/26/2023 Discontinued (Refill) documented as of this encounter (statuses as of 09/28/2023) Active Problems Problem Noted Date Diagnosed Date Chronic midline thoracic back pain 08/26/2023 Alcoholic cirrhosis of liver without ascites Portal hypertensive gastropathy 08/23/2023 Esophageal varices in cirrhosis 08/23/2023 Mixed hyperlipidemia 05/29/2023 Alcohol dependence, continuous 04/02/2023 Lung nodule seen on imaging study 03/29/2023 Generalized anxiety disorder 03/29/2023 OCD (obsessive compulsive disorder) 01/31/2023 Other insomnia 01/31/2023 Medical marijuana use 01/31/2023 Cigarette smoker 11/24/2022 Compression fracture of L1 lumbar vertebra 08/08 Compression fracture of T12 vertebra 08/09/2011 ADVANCE DIRECTIVE INFORMATION 03/08/2005 Overview: Not applicable (under age of 18) documented as of this encounter (statuses as of 09/28/2023) Resolved Problems Problem Noted Date Diagnosed Date Resolved Date History of Lyme disease 04/02/2023 06/2 03/2023 Overview: Suspected, positive IgG Alcohol withdrawal syndrome with complication 03/30/19 24 04/02/2023 Neutropenic fever 03/30/2023 04/02/2023 Acute alcoholic intoxication with complication 03/29/2023 03/30/2023 Leucopenia 03/29/2023 04/02/2023 Thrombocytopenia due to drugs 03/29/2023 08/23/2023 Drug-induced liver injury 03/29/2023 Alcohol induced fatty liver 03/29/2023 08/23/2023 Elevated liver transaminase level 03/29/2023 08/23/2023 Hepatosplenomegaly 03/28/2023 Acute hyperactive alcohol withdrawal delirium 04/05/19 23 03/30/2023 documented as of this encounter (statuses as of 09/28/2023) Immunizations Name Administration Dates Next Due Pneumococcal Conjugate Vaccine, 20-valent (Prevn ar20) 01/31/2023 Seasonal Influenza, PF, 6 M & above, IM , (FluLaval or Fluzone) 11/24/2022 TDAP (age 10 and older)(Boostrix) 01/31/2023 TDAP, Age 7 and older, IM (Adacel) 08/08/2011 documented as of this encounter Social History Tobacco Use Types Packs/Day Years Used Date Smoking Tobacco: Every Day Cigarettes 0.5 20.6 Started: 2003 Smokeless Tobacco: Never Alcohol Use Standard Drinks/Week Comments Not Currently 0 (1 standard drink = 0.6 oz pure alcohol) alcohol use disorder, last use 08/05/23 Hunger Vital Sign Answer Date Recorded Within the past 12 months, y ou worried that your food would run out before you got the money to buy more. Never true 10/27/19 23 Within the past 12 months, t he food you bought just didn't last and you didn't have money to get more. Never true 10/26/2022 Childcare Answer Date Recorded Do you feel overwhelmed with taking care of a child, family member or friend? No 10/26/2022 Does your family need help f inding childcare? (Household - for ages 0-17 years) Not on file 10/26/2022 Clothing Answer Date Recorded Have you been unable to get clothing when it was really needed? No 10/26/2022 Is your family able to get c lothes or diapers when needed? (Household - for ages 0-17 years) Not on file 10/26/2022 Personal Safety Answer Date Recorded Do you feel unsafe or have concerns for your saf ety? No 03/29/2023 Do you have concerns for you r family's safety? (Household - for ages 0-17 years) Not on file 03/29/2023 Utilities Answer Date Recorded Do you have trouble paying y our heating, water, or electric bill? No 03/29/2023 Is your family able to pay t he heat, water, or electric bill? (Household - for ages 0-17 years) Not on file 03/29/2023 Does your family have access to good internet? (Household - for ages 0-17 years) Not on file 03/29/2023 Employment Status Answer Date Recorded Are you unemployed or without regular income? No 10/26/2022 Does the household have a re gular source of income? (Household - for ages 0-17 years) Not on file 10/26/2022 Social Connections Answer Date Recorded How often do you feel lonely or isolated from th ose around you? Rarely 10/26/2022 Financial Resource Strain Answer Date R ecorded Do you have any trouble payi ng for your medications, or do you think you might in the future? No 10/26/2022 Does your family have troubl e paying for medicine? (Household - for ages 0-17 years) Not on file 10/26/2022 Transportation Needs Answer Date Record ed READ ONLY Do you have troubl e getting a ride to medical visits or work? Never True 03/29/2023 Does your family have a hard time getting a ride to doctors visits? (Household - for ages 0-17 years) Not on file 03/29/2023 Has lack of transportation k ept you from medical appointments, meetings, work, or from getting things needed for daily living? Check all that apply. (Adult - for ages 18 years and over) Not on file 03/29/2023 Do you (or your family) have trouble finding or paying for a ride (transportation)? (Household - for ages 0-17 years) Not on file 03/29/2023 Housing Stability Answer Date Recorded Do you currently live in a s helter or have no steady place to sleep at night? No 03/29/2023 READ ONLY Do you think you a re at risk of becoming homeless? Yes 03/29/2023 Does your family worry about paying for your home or becoming homeless? (Household - for ages 0-17 years) Not on file 0 03/29/2023 Are you homeless or worried that you might be in the future? (Adult - for ages 18 years and over) Not on file Are you (or your family) miguel eless or worried that you might be in the future? (Household - for ages 0-17 years) Not on file Food Insecurity Answer Date Recorded Do you need food for this week? Yes 03/29/2023 Are you able to get enough f ood for your family? (Household - for ages 0-17 years) Not on file 03/29/2023 Does your family need food t his week? (Household - for ages 0-17 years) Not on file 03/29/2023 Do you always have enough fo od for your family? (Household - for ages 0-17 years) Not on file 03/29/2023 Sex and Gender Information Value Date Recorded Sex Assigned at Male 10/26/2022 1:34 PM EDT Gender Identity Not on file Sexual Orientation Bisexual 10/26/2022 1: 34 PM EDT Job Start Date Occupation Industry Not on file Not on file Not on file documented as of this encounter Last Filed Vital Signs Vital Sign Reading Time Taken Comments Blood Pressure 126/82 09/26/2023 4:31 PM EDT Pulse 75 09/26/2023 4:31 PM EDT Temperature 37 C (98.6 F) 09/26/2023 4:31 PM EDT Respiratory Rate 16 09/26/2023 4:31 PM EDT Oxygen Saturation 100% 09/26/2023 4:31 PM EDT Inhaled Oxygen Concentration - - Weight 99.6 kg (219 lb 9.6 oz) 09/26/2023 4:31 P M EDT Height - - Body Mass Index 32.43 06/28/2023 12:15 PM EDT documented in this encounter Progress Notes * Tami Upton MD - 09/26/2023 4:20 PM EDT Images from the original note were not included. History of Present Illness Esdras Storey is a 33 year old male with alcoholic cirrhosis, portal hypertensive gastropathy,esophageal varices, alcohol use disorder, bipolar 1, insomnia, OCD, tobacco use that presents for Follow Up (Pt is here today for 4 week follow up./Pt in need of med refills. ) Presents for follow up. Since last visit he had a visit with hepatology and was treated with a course of lasix for BLE edema. Since then, his edema has improved. Liver function testing remains relatively stable. He has remained abstinent from alcohol and is occasionally attending AA, though he feels like a round peg in a square hole there. He has been sleeping better, about 4 hours per night which is a vast improvement from prior. Overall, feels he is doing well and moving in the right direction. Also seeing pain management regarding spinal injections. Physical Exam Vitals: 09/26/23 1631 Temp: 37 C (98.6 F) Pulse: 75 Resp: 16 SpO2: 100% BP: 126/82 Physical Exam Vitals and nursing note reviewed. Constitutional: General: He is not in acute distress. Appearance: He is not toxic-appearing. HENT: Head: Normocephalic and atraumatic. Nose: Nose normal. Eyes: Conjunctiva/sclera: Conjunctivae normal. Cardiovascular: Rate and Rhythm: Normal rate. Pulmonary: Effort: Pulmonary effort is normal. No respiratory distress. Musculoskeletal: General: No signs of injury. Right lower leg: No edema. Left lower leg: No edema. Neurological: General: No focal deficit present. Mental Status: He is alert and oriented to person, place, and time. Mental status is at baseline. I have reviewed the following results: PT/INR, CMP, and CBC Assessment and Plan Alcoholic cirrhosis of liver without ascites (HCC) Not biopsy proven, but significant findings concerning for cirrhosis. Has known varices, pancytopenia, portal hypertension. Repeat endoscopy scheduled in November and hepatology follow up in December. Labs prior. - CBC WITH WBC DIFFERENTIAL; Future - COMPREHENSIVE METABOLIC PANEL; Future - PT INR; Future Bilateral leg edema Suspect related to cirrhosis. Now improved. Lasix 20 mg daily PRN for increased edema - should callif persistent for 3 or more days - Furosemide 20 MG Oral Tablet (Lasix); Take 1 Tablet by mouth daily as needed (Leg swelling). Other insomnia Bipolar affective disorder, current episode mixed, current episode severity unspecified (HCC) Continue paliperidone, gabapentin, alcohol cessation - Paliperidone ER 9 MG Oral Tablet Extended Release 24 Hour (Invega); Take 1 Tablet by mouth in themorning. Wrap-Up Follow Up: Return in about 3 months (around 12/27/2023) for Return with Physician. | For: Return with Physician Time: I spent a total of 20-29 minutes (exact time 27 mins) on the date of service in preparation, delivery, and documentation of the care provided to Esdras Storey excluding any time spent in the performance of separately billed services. documented in this encounter Nursing Notes * Maira Torres LPN - 09/26/2023 4:31 PM EDT The patient has been properly identified by confirmation of name and date of . Chief Complaint Patient presents with Follow Up Pt is here today for 4 week follow up. Pt in need of med refills. documented in this encounter Plan of Treatment Upcoming Encounters Date Type Department Care Team (Latest Contact Info) Description 9:30 AM EDT Hospital Encounter [facility], Endoscopy Room [facility] [address] [place] [phone] Scott Morillo, [address] [place] [address] 09/03/202 4 9:30 AM EDT - 4 10:15 AM EDT Surgery ENDO [facility], Endoscopy Room [facility] [address] [place], [place] [phone] Scott Morillo, DO [address] [place], [place] [address] ESOPHAGOGASTRODUODENOSCOPY (EGD), FLEXIBLE, TRANSORAL, ENDOSCOPIC ULTRASOUND 4 1:10 PM EDT Hospital Encounter OR [facility], Operating Room [facility] [address] [place] [phone] Gregory Lima MD [address] [place] [address] 4 1:10 PM EDT - 4 1:30 PM EDT Surgery OR [facility], Operating Room [facility] [address] [place] [phone] Gregory Lima MD [address] [place] [address] L-/S-SPINE PARAVERTEBRAL FACET INJ, 1 LEVEL 4 1:40 PM EDT Telemedicine Hepatology, [facility] [address] [place] [address] Katty Hernandes, DO [address] [place] [address] 4 1:45 PM EST Hospital Encounter OR [facility], Operating Room [facility] [address] [place] [phone] Manuel Bashir, DO [address] [place], [place] [phone] 4 1:45 PM EST - 4 2:10 PM EST Surgery OR [facility], Operating Room [facility] [address] [place] [phone] Manuel Bashir, [address] [place] [phone] L-/S-SPINE PARAVERTEBRAL FACET INJ, 1 LEVEL Scheduled Orders Name Type Priority Associated Diagnoses Orde r Schedule CBC WITH WBC DIFFERENTIAL Lab Routine Alcoholic cirrhosis of liver without ascites (HCC) Expected: 10/27/2023 (Approximate), Expires: 09/25/2024 COMPREHENSIVE METABOLIC PANEL Lab Routine Alcoholic cirrhosis of liver without ascites (HCC) Expected: 10/27/2023 (Approximate), Expires: 09/25/2024 PT INR Lab Routine Alcoholic cirrhosis of liver without ascites (HCC) Expected: 10/27/2023 (Approximate), Expires: 09/25/2024 Scheduled Procedures Name Priority Associated Diagnoses Date/Ti nm ESOPHAGOGASTRODUODENOSCOPY ( EGD), FLEXIBLE, TRANSORAL, ENDOSCOPIC ULTRASOUND Alcohol abuse Hepatic fibrosis 11/05/2023 9:30 AM EDT ESOPHAGOGASTRODUODENOSCOPY ( EGD), FLEXIBLE, TRANSORAL, DIAGNOSTIC Alcohol abuse Hepatic fibrosis 11/05/2023 9:30 AM EDT L-/S-SPINE PARAVERTEBRAL FAC ET INJ, 1 LEVEL Spondylosis of lumbar region without myelopathy or radiculopathy 11/22/2023 1:10 PM EDT L-/S-SPINE PARAVERTEBRAL FAC ET INJ, 2 LEVELS Spondylosis of lumbar region without myelopathy or radiculopathy 11/22/2023 1:10 PM EDT L-/S-SPINE PARAVERTEBRAL FAC ET INJ, 1 LEVEL Spondylosis of lumbar region without myelopathy or radiculopathy 02/14/2024 1:45 PM EST L-/S-SPINE PARAVERTEBRAL FAC ET INJ, 2 LEVELS Spondylosis of lumbar region without myelopathy or radiculopathy 02/14/2024 1:45 PM EST Health Maintenance Due Date Last Done Comments Depression Screening 08/05/2015 08/04/2014 COVID-19 Vaccine ( season) 2022 Influenza Vaccine (FLU shot) (#1) 2023 11/24/2022 Diabetes Screening 09/16/2026 09/17/2023, 0 09/11/2023, 2023, Additional history exists DTaP,Tdap,and Td Vaccines (8 - Td or Tdap) 01/31/2033 01/31/2023, 08/08/2011, 07/08/2003, Additional history exists Hepatitis B Vaccine Completed 10/11/1998, 03/21/1998, 01/18/1998 Pneumococcal Vaccine: Pediatrics (0 to 5 Years) and At-Risk Patients (6 to 64 Years) Completed 01/31/2023 HPV (Gardasil) Vaccine Aged Out No lo nger eligible based on patient's age to complete this topic MENINGOCOCCAL (MENACTRA/MENVEO) Aged Out No longer eligible based on patient's age to complete this topic documented as of this encounter Medical Devices Not on filedocumented as of this encounter Visit Diagnoses Diagnosis Alcoholic cirrhosis of liver without ascites (HCC)- Primary Alcoholic cirrhosis of liver Bilateral leg edema Edema Other insomnia Bipolar affective disorder, current episode mixed, current episode severity unspecified (HCC) Alcohol abuse Alcohol abuse, unspecified Hepatic fibrosis Cirrhosis of liver without mention of alcohol Spondylosis of lumbar region without myelopathy or radiculopathy Lumbosacral spondylosis without myelopathy Spondylosis of lumbar region without myelopathy or radiculopathy Lumbosacral spondylosis without myelopathy documented in this encounter Advance Directives * Full Code (Latest Code Status on File) Date Activated Date Inactivated Comments 03/29/2023 1:43 PM 04/02/2023 2:03 PM This order r eflects the patients wishes and were consensually agreed upon. Question Answer Comments Discussion of Advance Directives occurred with: Patient Care Teams Silk Spooler Relationship Specialty Start Date End Date Tami Upton MD [address] [place] [phone] PCP - General Family Medicine 06/19/23 documented as of this encounter"
--- OUTSIDE RECORDS SUMMARY | 2023-10-15 03:06 | External Medical Summary | Summary of Care ---
Author Name Unknown Organization [facility] Address [address] [place] [address] Phone [phone] Care Team Providers Care Post Production Assistant Name Role Phone Tami Upton MD Primary Care Provi elena Encounter Details Date Type Department Care Team (Late st Contact Info) Description 09/16/2023 Orders Only Outcomes Research Department [address] [place] [address] Farzaneh Perdue [facility] [employer] [facility] Other*[id number] Allergies No known active allergiesdocumented as of this encounter (statuses as of 09/16/2023) Medications Medication Sig Dispensed Refills Start Date End Date Status Folic Acid 1 MG Oral Tablet Take 1 Tablet by mouth in the morning. 30 Tablet 2 06/26/2023 Active Melatonin 10 MG Oral Tablet Chewable Take by mouth. Activ e Sucralfate 1 GM/10ML Oral Suspension (Carafate) Take 10 mL by mouth in the morning and 10 mL at noon and 10 mL in the evening and 10 mL before bedtime. 08/15/2023 Active Nadolol 40 MG Oral Tablet (Corgard) Take 1 Tablet by mouth in the morning. Active Gabapentin 300 MG Oral Capsule (Neurontin) Take 1 Capsule by mouth in the morning and 1 Capsule before bedtime. 08/26/2023 Active Paliperidone ER 9 MG Oral Tablet Extended Release 24 Hour (Invega)Indications:O ther insomnia,Bipolar affective disorder, current episode mixed, current episode severity unspecified (HCC) Take 1 Tablet by mouth in the morning. 30 Tablet 5 08/28/2023 Active Furosemide 20 MG Oral Tablet (Lasix) Take 1 Tablet by mouth in the morning. 7 Tablet 09/12/2023 Active documented as of this encounter (statuses as of 09/16/2023) Active Problems Problem Noted Date Diagnosed Date [...] as of this encounter (statuses as of 09/16/2023) Resolved Problems Problem Noted Date Diagnosed Date Resolved Date History of Lyme disease 04/02/2023/2 03/2023 Overview: Suspected, positive IgG Alcohol withdrawal [...] as of this encounter (statuses as of 09/16/2023) Immunizations Name Administration Dates Next Due Pneumococcal Conjugate Vaccine, 20-valent (Prevn ar20) 01/31/2023 Seasonal Influenza, PF, 6 M & above, IM , (FluLaval or Fluzone) 11/24/2022 TDAP (age 10 and older)(Boostrix) 01/31/2023 TDAP, Age 7 and older, IM (Adacel) 08/08/2011 documented as of this encounter Social History Tobacco Use Types Packs/Day Years Used Date Smoking Tobacco: Every Day Cigarettes 0.5 20.5 Started: 2003 Smokeless Tobacco: Never Alcohol Use [...] Department Care Team (Latest Contact Info) Description 4 2:30 PM EDT Office Visit Podiatry [facility] [address] [place] [phone] Severo Alvarado, DPThomas [address] [place] [address] 4 4:20 PM EDT Office Visit Family [facility] [address] [place] [phone] Tami Upton MD [address] [place] [phone] 4 9:30 AM EDT Hospital Encounter ENDO [facility], Endoscopy Room [facility] [address] [place] [phone] Scott Morillo, DO [address] [place] [address] 4 9:30 AM EDT - 4 10:15 AM EDT Surgery ENDO [facility], Endoscopy Room [facility] [address] [place] [phone] Scott Morillo, DO [address] [place] [address] ESOPHAGOGASTRODUODENOSCOPY (EGD), FLEXIBLE, TRANSORAL, ENDOSCOPIC ULTRASOUND 4 1:10 PM EDT Hospital Encounter OR [facility], Operating Room [facility] [address] [place] [phone] Gregory Lima MD [address] [address] 4 1:10 PM EDT - 4 1:30 PM EDT Surgery OR [facility], Operating Room [facility] [address] [place] [phone] Gregory Lima MD [address] [place] [address] L-/S-SPINE PARAVERTEBRAL FACET INJ, 1 LEVEL 4 1:40 PM EDT Telemedicine Hepatology, [facility] [address] [place] [address] Katty Hernandes, DO [address] [place], [place] [address] 4 1:45 PM EST Hospital Encounter OR [facility], Operating Room [facility] [address] [place] [phone] Manuel Bashir, DO [address] [place], [place] [phone] 4 1:45 PM EST - 4 2:10 PM EST Surgery OR [facility], Operating Room [facility] [address] [place] [phone] Manuel Bashir, DO [address] [place], [place] [address] L-/S-SPINE PARAVERTEBRAL FACET INJ, 1 LEVEL Scheduled Orders Name Type Priority Associated Diagnoses Orde r Schedule MYCODE SUBSEQUENT ADULT Lab Routine [employer] [facility] Other*[id number] Every 6 Months for 2 Occurrences starting 09/16/2023 until 10/05/2024 Scheduled Procedures Name Priority Associated Diagnoses Date/Ti me ESOPHAGOGASTRODUODENOSCOPY ( EGD), FLEXIBLE, TRANSORAL, ENDOSCOPIC ULTRASOUND [...] (FLU shot) (#1) 2023 11/24/2022 Diabetes Screening 09/10/2026 09/11/2023, 0 2023, 05/13/2023, Additional history exists DTaP,Tdap,and Td Vaccines (8 [...] as of this encounter Visit Diagnoses Diagnosis [employer] [facility] Other*[id number] Alcohol abuse Alcohol abuse, unspecified Hepatic fibrosis [...] Advance Directives occurred with: Patient Care Teams Post Production Assistant Relationship Specialty Start Date End Date Tami Upton MD [address] [place] [phone] PCP - General Family Medicine 06/19/23 documented as of this encounter
--- OUTSIDE RECORDS SUMMARY | 2023-10-15 03:06 | External Medical Summary ---
Author Name Unknown Address Unknown Organization K01:[facility] [place] [address] [place] [address] Laboratory Report Ordering Provider Test Date Status SAHIL ROBLES 09/17/2023 14:42:35 Final Observation Date Value Abnormality Reference (Units ) Status Uric Acid 09/17/2023 14:42:35 5.6 3.4-7.0 (m g/dL) Final Performing Location LAB[facility] - [address] [place] [address]
--- OUTSIDE RECORDS SUMMARY | 2023-10-15 03:06 | External Medical Summary | Summary of Care ---
Author Name Unknown Organization [facility] Address [address] [place] [address] Phone [phone] Care Team Providers Care Sample Washer Name Role Phone Tami Upton MD Primary Care Provi elena Reason for Visit * Reason Comments NEW PATIENT Pain Right foot * Evaluate & Treat - Unlimited Visits (Within 10 days (routine)) - Authorized Specialty Diagnoses / Procedures Referred By Danielle t Referred To Contact Podiatry Diagnoses Pain of right great toe Tami Upton MD [address] [place] [phone] Referral ID Status Reason Start Date Expiration Date Visits Requested Visits Authorized [id number] Authorized Specialty Services Required 08/23/2023 08/22/2024 [id number] Encounter Details Date Type Department Care Team ([facility] Contact Info) Description 09/17/2023 2:30 PM EDT Office Visit Podiatry [address] [place] [address] Sveero Alvarado, ALEXANDR [facility] [place] [address] 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 7 Tablet 09/12/2023 Active Celecoxib 200 MG Oral Capsule (CeleBREX) Take 1 Capsule by mouth in the morning. 20 Capsule 2 09/17/2023 Active documented as of this encounter (statuses as of 09/17/2023) Active Problems Problem Noted Date Diagnosed Date [...] as of this encounter (statuses as of 09/17/2023) Resolved Problems Problem Noted Date Diagnosed Date Resolved Date History of Lyme disease 04/02/2023 06/2 03/2023 Overview: Suspected, positive IgG Alcohol withdrawal syndrome with complication 03/30/1904/02/2023 Neutropenic fever 03/30/2023 04/02/2023 Acute alcoholic intoxication with complication 03/29/2023 03/30/2023 Leucopenia 03/29/2023 04/02/2023 Thrombocytopenia due to drugs 03/29/2023 08/23/2023 Drug-induced liver injury 03/29/2023 Alcohol induced fatty liver 03/29/2023 08/23/2023 Elevated liver transaminase level 03/29/2023 08/23/2023 Hepatosplenomegaly 03/28/2023 Acute hyperactive alcohol withdrawal delirium 04/05/1903/30/2023 documented as of this encounter (statuses as of 09/17/2023) Immunizations Name Administration Dates Next Due Pneumococcal [...] 10/26/2022 Does the household have a re lar source of income? (Household - for ages [...] as of this encounter Progress Notes * Severo Alvarado, ALEXANDR - 09/17/2023 2:29 PM EDT Subjective: Patient presents with painful base of right great toe present for the past several months. Patient has alcoholic cirrhosis of the liver Patient alert and oriented to person, place and time. Past Medical History: Diagnosis Date INFORMATION viral menningitis age 3 Varicella without complication age 3 Past Surgical History: Procedure Laterality Date COLONOSCOPY, DIAGNOSTIC (RECTUM) 03/24/2014 normal bx/COLONOSCOPY FLEXIBLE PROXIMAL DIAGNOSTIC performed by Godfrey Enrique MD at ENDOSCOPY [facility] INFORMATION tubes in ears REMOVE TONSILS & ADENOIDS, UNDER 12 Tonsillectomy/Adenoids,<12 Y/O Family History Problem Relation Name Age of Onset Other (asthma) Brother Older brother Other (alcohol) Brother Older brother Other (drug abuse) Brother Older brother Other (smoking) Brother Older brother Other (Other) Brother Older brother Other (skin disorders) Other denies any in family Social History Socioeconomic History Marital status: Single Spouse name: Not on file Number of children: 0 Years of education: Not on file Highest education level: Not on file Occupational History 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 Tobacco Use Smoking status: Every Day Current packs/day: 0.50 Average packs/day: 0.5 packs/day for 20.5 years (10.3 ttl pk-yrs) Types: Cigarettes Start date: 2003 Smokeless tobacco: Never Vaping Use Vaping status: Some Days Substances: Nicotine, THC Devices: Disposable Substance and Sexual Activity Alcohol use: Not Currently Comment: alcohol use disorder, last use 08/05/23 Drug use: Yes Frequency: 28.0 times per [...] Social Determinants of Health Financial Resource Strain: Low Risk (10/26/2022) Financial Resource Strain Do you have any trouble paying for your medications, or do you think you might in the future? (Adult - for ages 18 years and over): No Does your family have trouble paying for medicine? (Household - for ages 0-17 years): Not on file Food Insecurity: Food Insecurity Present (03/29/2023) Food Insecurity Do you need food for this week? (Adult - for ages 18 years and over): Yes Are you able to get enough food for your family? (Household - for ages 0-17 years): Not on file Does your family need food this week? (Household - for ages 0-17 years): Not on file Do you always have enough food for your family? (Household - for ages 0-17 years): Not on file Transportation Needs: No Transportation Needs (03/29/2023) Transportation Needs Do you have trouble getting a ride to medical visits or work? (Adult - for ages 18 years and over):Never True Does your family have a hard time getting a ride to doctors visits? (Household - for ages 0-17 years): Not on file Has lack of transportation kept you from medical appointments, meetings, work, or from getting things needed for daily living? Check all that apply. (Adult - for ages 18 years and over): Not on file Do you (or your family) have trouble finding or paying for a ride (transportation)? (Household - for ages 0-17 years): Not on file Social Connections: Socially Integrated (10/26/2022) Social Connections How often do you feel lonely or isolated from those around you? (Adult - for ages 18 years and over): Rarely Housing Stability: High Risk (03/29/2023) Housing Stability Do you currently live in a [place] or have no steady place to sleep at night? (Adult - for ages 18 years and over): No Do you think you are at risk of becoming homeless? (Adult - for ages 18 years and over): Yes Does your family worry about paying for your home or becoming homeless? (Household - for ages 0-17 years): Not on file Are you homeless or worried that you might be in the future? (Adult - for ages 18 years and over): Not on file Are you (or your family) homeless or worried that you might be in the future? (Household - for ages0-17 years): Not on file Current Outpatient Medications Medication Sig Dispense Refill Celecoxib 200 MG Oral Capsule (CeleBREX) Take 1 Capsule by mouth in the morning. 20 Capsule 2 Folic Acid 1 MG Oral Tablet Take 1 Tablet by mouth in the morning. 30 Tablet 2 Melatonin 10 MG Oral Tablet Chewable Take by mouth. Sucralfate 1 GM/10ML Oral Suspension (Carafate) Take 10 mL by mouth in the morning and 10 mL at noon and 10 mL in the evening and 10 mL before bedtime. Nadolol 40 MG Oral Tablet (Corgard) Take 1 Tablet by mouth in the morning. Gabapentin 300 MG Oral Capsule (Neurontin) Take 1 Capsule by mouth in the morning and 1 Capsule before bedtime. Paliperidone ER 9 MG Oral Tablet Extended Release 24 Hour (Invega) Take 1 Tablet by mouth in the morning. 30 Tablet 5 Furosemide 20 MG Oral Tablet (Lasix) Take 1 Tablet by mouth in the morning. 7 Tablet 0 No current facility-administered medications for this visit. REVIEW OF SYSTEMS ROS EXAM: CONSTITUTIONAL: No change in weight, No weakness, No fatigue, and No fevers, sweats, or chills EXTREMITIES: No pain, redness or swelling on the joints SKIN/INTEGUMENTARY: mild edema bilateral legs/ankles, No rash, and No itching NEUROLOGIC: Normal balance, No headaches, No seizures, and No weakness DERMATOLOGICAL Temperature: wnl Texture: smooth Turger: normal Scaling: mild Hair Distribution: normal Right foot Interdigital Maceration: - Left foot Interdigital Maceration: - Right foot Nails: no problems Left foot Nails: no problems Lesions: Heloma durum 0 Left, 0 Right Submetatarsal tyloma 0 Left, 0 Right Heel callous: negative Pinch callous:negative VASCULAR EXAM Right foot Pulses: Dorsalis Pedis-2/4 palpable Left foot Pulses: Dorsalis Pedis- 2/4 palpable Right foot Subpapillary venous plexus filling time: within limits Left foot Subpapillary venous plexus filling time: within limits Right foot Posterior Tibial Pulse-2/4 palpable Left foot Posterior Tibial Pulse- 2/4 palpable Right foot Edema: none Left foot Edema: none Right foot Cyanosis: - Left foot Cyanosis: - Right foot Telangiectasias: - Left foot Telangiectasias: - Right foot Rubor: - Left foot Rubor: - Right foot Varicosities: - Left foot Varicosities: - NEUROLOGICAL Right foot Posterior Tibial Nerve: sensate Left foot Posterior Tibial Nerve: sensate Right foot Deep Peroneal Nerve: sensate Left foot Deep Peroneal Nerve: sensate Right foot Sural Nerve: sensate Left foot Sural Nerve: sensate Right foot Superficial Peroneal Nerve:sensate Left foot Superficial Peroneal Nerve: sensate [place] is sensate Right Vibratory: intact Left Vibratory: intact ORTHOPEDIC Muscles: Right inverters 5 Left inverters 5 Right everters: 5 Left everters: 5 Right Dorsiflexors: 5 Left Dorsiflexors: 5 Right Plantarflexors: 5 Left Plantarflexors: 5 Joint ROM: Right foot Ankle Joint: WNL Left foot Ankle Joint: WNL Right foot Subtalar joint: WNL Left foot Subtalar joint: WNL Right foot Midtarsal joint: WNL Left foot Midtarsal joint: WNL Right foot Metatarsal Phalangeal joint: pain at end ROM DF Left foot Metatarsal Phalangeal joint: WNL Pain upon palpation of 1st MPJ dorsally Right Equinus: - Left Equinus: - Right Masses: - Left Masses: - Right Effusions: - Left Effusions: - Left Deformities: N/A Right Deformities: N/A Gait Analysis: wnl Assessment: The encounter diagnosis was Chronic idiopathic gout involving toe of right foot withouttophus. 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 4 4:20 PM EDT Office Visit [address] [phone] Tami Upton MD [address] [place] [phone] 4 9:30 AM EDT Hospital Encounter ENDO [facility], Endoscopy Room [facility] [address] [place] [address] Scott Morillo DO [address] [place] [address] 4 9:30 AM EDT - 4 10:15 AM EDT Surgery ENDO [facility], Endoscopy Room [facility] [address] [place] [address] Scott Morillo, DO [address] [place] [address] ESOPHAGOGASTRODUODENOSCOPY (EGD), FLEXIBLE, TRANSORAL, ENDOSCOPIC ULTRASOUND 4 1:10 PM EDT Hospital Encounter OR [facility], Operating Room [facility] [address] [place] [phone] Gregory Lima MD [address] [address] 4 1:10 PM EDT - 4 1:30 PM EDT Surgery OR [facility], Operating Room [facility] [address] [place] [address] Gregory Lima MD [address] [place] [address] L-/S-SPINE PARAVERTEBRAL FACET INJ, 1 LEVEL 4 1:40 PM EDT Telemedicine Hepatology, [facility] [address] [place] [address] Katty Hernandes, DO [address] [place] [address] 4 1:45 PM EST Hospital Encounter OR [facility], Operating Room [facility] [address] [place] [phone] Manuel Bashir, DO [address] [place] [address] 4 1:45 PM EST - 4 2:10 PM EST Surgery OR [facility], Operating Room [facility] [address] [place] [address] Manuel Bashir Gerson, [address] [place] [phone] L-/S-SPINE PARAVERTEBRAL FACET INJ, 1 LEVEL Pending Results Name Type Priority Associated Diagnoses Date /Time URIC ACID Lab Routine 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 09/17/2023 2:42 PM EDT XR FOOT 3 OR MORE VIEWS Medical Imaging Routine 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 09/17/2023 2:42 PM EDT Scheduled Orders Name Type Priority Associated Diagnoses Orde r Schedule URIC ACID Lab Routine 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 Expected: 09/17/2023, Expires: 09/16/2024 Scheduled Procedures Name Priority Associated Diagnoses Date/Ti ga ESOPHAGOGASTRODUODENOSCOPY ( EGD), FLEXIBLE, TRANSORAL, ENDOSCOPIC ULTRASOUND [...] as of this encounter Visit Diagnoses Diagnosis 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
--- OUTSIDE RECORDS SUMMARY | 2023-10-15 03:06 | External Medical Summary | Summary of Care ---
Author Name Unknown Organization [facility] Address [address] [facility] [place] [address] Phone [phone] Care Team Providers Care Registered Nurse Teacher Name Role Phone Tami Upton MD Primary Care Provi elena Reason for Visit * Reason Comments Follow Up Cirrhosis, esophogea l varices, lower legs swollen can be painful Encounter Details Date Type Department Care Team (Late st Contact Info) Description 09/13/2023 12:40 PM EDT Office Visit Hepatology, [facility] [address] [facility] [place] [address] Megan Henning MD [address] [place] [address] [place] [phone] Alcohol abuse*; Fatty liver; Portal hypertension (HCC) Allergies No known active allergiesdocumented as of this encounter (statuses as of 09/13/2023) Medications Medication Sig Dispensed Refills Start Date [...] as of this encounter (statuses as of 09/13/2023) Active Problems Problem Noted Date Diagnosed Date [...] as of this encounter (statuses as of 09/13/2023) Resolved Problems Problem Noted Date Diagnosed Date Resolved Date History of Lyme disease 04/02/202308/03 Overview: Suspected, positive IgG Alcohol withdrawal syndrome [...] as of this encounter (statuses as of 09/13/2023) Immunizations Name Administration Dates Next Due Pneumococcal [...] Sign Reading Time Taken Comments Blood Pressure 147/81 09/13/2023 12:32 PM EDT Pulse 94 09/13/2023 12:32 PM EDT Temperature 36.9 C (98.4 F) 09/13/2023 12:32 PM E DT Respiratory Rate - - Oxygen Saturation - - Inhaled Oxygen Concentration - - Weight 99.3 kg (219 lb) 09/13/2023 12:32 PM EDT Height - - Body Mass Index 32.34 06/28/2023 12:15 PM EDT documented in this encounter Progress Notes * Megan Henning MD - 09/13/2023 12:38 PM EDT Images from the original note were not included. Hepatology Coy Robison New to me Seen by Dr. Hernandes in the past Post hospital discharge fup - admitted early 08/25 to [facility] for detox HPI: 33 yo male with a history of etoh use - significant use in the past - details as per hepatology note in 07/25 Admitted in 08/25 at [facility] for alcohol detox - he was there for 6 days. Had an egd during his admission in 08/25 - egd by Dr. Bowling with g1ev done for reports of coffee ground emesis - started on nadololby [facility]. This was his 30th withdrawal he reports. He reports he drinks to help with insomnia. Planning to go to an addition specialist in [place]. Goes to AA. Living alone- partner come and goes. Taking Invega since discharge (08/27) and Neurontin 08/25 as medical assistance with withdrawal and alcohol use. Also taking nadolol for reduction of portal htn after [facility] hospital visit. Also taking lasix 20 mg . Has mild lower swelling - but feels it is from gout. No other acute complaints. Wants to quit drinking. Never had a paracentesis Not vomiting up blood or blood in stools since his admission. Pmhx: Fatty liver with portal htn in the form of g1ev Soc hx: Lives alone Partner comes and goes Current Outpatient Medications Medication Sig Dispense Refill Folic Acid 1 MG Oral Tablet Take [...] No current facility-administered medications for this visit. ROS: Constitutional: No report of fever, chills, night sweats. There have been no non-intentional weightchanges. GI: Per HPI, otherwise negative. Physical Exam Constitutional: BP 147/81 | Pulse 94 | Temp 36.9 C (98.4 F) | Wt 99.3 kg (219 lb) | BMI 32.34 kg/m | BSA 2.2 m Gen: Slight tinge to eyes of yellow CV: Heart is regular without murmur, rub or nasir. Pulm: Clear to percussion and auscultation. GI: Abdomen is soft, non-tender, with normo-active bowel sounds in all four quadrants. No hepatosplenomegaly is appreciated. No masses are palpated. No guarding or rebound is noted. Skin: tatoo on his right arm Labs reviewed: 09/11/23 2 d ago BUN 6 - 20 mg/dL 10 Creatinine 0.6 - 1.2 mg/dL 0.6 Estimated Glomerular Filtration Rate >=60 mL/min >90 Comment: eGFR is calculated based on the CKD-EPI 2020 equation Sodium 135 - 146 mmol/L 139 Potassium 3.5 - 5.1 mmol/L 4.4 Chloride 98 - 107 mmol/L 104 CO2 22 - 32 mmol/L 25 Anion Gap 7 - 15 mmol/L 10 Glucose 70 - 120 mg/dL 79 Albumin 3.8 - 5.0 g/dL 3.6 Low AST 10 - 50 U/L 154 High Alkaline Phosphatase 35 - 130 U/L 111 Bilirubin, Total <=1.2 mg/dL 2.8 High Calcium 8.4 - 10.2 mg/dL 9.5 Protein 6.0 - 8.3 g/dL 6.6 ALT 10 - 50 U/L 119 High Component Ref Range & Units 2 d ago Prothrombin Time 11.6 - 15.2 seconds 20.9 High INR 0.8 - 1.2 1.8 High go WBC 4.00 - 10.80 K/uL 4.73 RBC 4.50 - 5.25 M/uL 3.73 HGB 14.0 - 16.8 g/dL 12.5 Low HCT 40.0 - 48.4 % 36.3 Low MCV 82.0 - 99.5 fL 97.3 MCH 27.0 - 34.0 pg 33.5 MCHC 32.0 - 36.0 g/dL 34.4 RDW 11.5 - 15.5 % 16.6 PLT 140 - 400 K/uL 116 Low MPV 6.6 - 11.1 fL 9.7 MELD score driven primarily by bilirubin and inr MELD if confirmed cirrhosis is around 17 Imaging: Fatty liver on MRI liver from 04/27 A/P: Alcohol use - his 30th withdrawal, on invega and also neurontin Goes to aa Planning to go alcohol addiction in [place] On imaging he has fatty liver- not confirmed cirrhosis, however he does have portal - g1ev per egd in 08/25, low platelets and also splenomegaly- continue nadolol for now Continued attempts at abstinence are highly encouraged He already has fup with Dr. Hernandes (his regular yacht master) prior to this visit that was scheduled for the fall - would keep that appt. Megan Henning MD documented in this encounter Plan of Treatment Upcoming Encounters Date Type Department Care Team (Latest Contact Info) Description 4 2:30 PM EDT Office Visit Podiatry [facility] [address] [facility] [facility] [address] [place] [address] Severo Alvarado, DPThomas [address] [place] [address] 4 4:20 PM EDT Office Visit Family [facility] [address] [place] [address] Tami Upton MD [address] [place] [phone] 4 9:30 AM EDT Hospital Encounter ENDO [facility], Endoscopy Room [facility] [address] [place] [phone] Scott Morillo, [address] [place] [address] 4 9:30 AM EDT - 4 10:15 AM EDT Surgery ENDO [facility], Endoscopy Room [facility] [address] [place] [phone] Scott Morillo DO [address] [place] [address] ESOPHAGOGASTRODUODENOSCOPY (EGD), FLEXIBLE, TRANSORAL, ENDOSCOPIC ULTRASOUND 4 1:10 PM EDT Hospital Encounter OR [facility], Operating Room [facility] [address] [place] [phone] Gregory Lima MD [address] [place], [place] [address] [address] 4 1:10 PM EDT - 4 1:30 PM EDT Surgery OR [facility], Operating Room [facility] [address] [place] [address] Gregory Lima MD [address] [place] [address] L-/S-SPINE PARAVERTEBRAL FACET INJ, 1 LEVEL 4 1:40 PM EDT Telemedicine Hepatology, [facility] [address] [place] [address] Katty Hernandes DO [address] [place] [address] 4 1:45 PM EST Hospital Encounter OR [facility], Operating Room [facility] [address] [place] [address] Manuel Bashir, DO [address] [place] [address] 4 1:45 PM EST - 4 2:10 PM EST Surgery OR [facility], Operating Room [facility] [address] [place] [address] Manuel Bashir, DO [address] [place] [address] L-/S-SPINE PARAVERTEBRAL FACET INJ, 1 LEVEL Scheduled Procedures Name Priority Associated Diagnoses Date/Ti [...] Diagnosis Alcohol abuse- Primary Alcohol abuse, unspecified Fatty liver Other chronic nonalcoholic liver disease Portal hypertension (HCC) Portal hypertension Alcohol abuse Alcohol abuse, unspecified Hepatic fibrosis [...] Advance Directives occurred with: Patient Care Teams Registered Nurse Teacher Relationship Specialty Start Date End Date Tami Upton MD [address] [place] [phone] PCP - General Family Medicine 06/19/23 documented as of this encounter"
--- OUTSIDE RECORDS SUMMARY | 2023-10-15 03:06 | External Medical Summary | Summary of Care ---
Author Name Unknown Organization [facility] Address [address] [place] [address] Phone [phone] Care Team Providers Care Hogshead Roller Name Role Phone Tami Upton MD Primary Care Provi elena Reason for Visit * Reason Onset Date Comments Test Results 09/11/2023 Encounter Details Date Type Department Care Team (Late st Contact Info) Description 09/11/2023 Telephone Gastroenterology, [address] [phone] Zakia Jang MD [address] [facility] [place] [address] Test Results Allergies No known active allergiesdocumented as of this encounter (statuses as of 09/12/2023) Medications Medication Sig Dispensed Refills Start Date [...] as of this encounter (statuses as of 09/12/2023) Active Problems Problem Noted Date Diagnosed Date [...] as of this encounter (statuses as of 09/12/2023) Resolved Problems Problem Noted Date Diagnosed Date Resolved Date History of Lyme disease 04/02/2023/03/2023 Overview: Suspected, positive IgG Alcohol withdrawal syndrome with complication 03/30/1904/02/2023 Neutropenic fever 03/30/2023 04/02/2023 Acute alcoholic intoxication with complication 03/29/2023 03/30/2023 Leucopenia 03/29/2023 04/02/2023 Thrombocytopenia due to drugs 03/29/2023 08/23/2023 Drug-induced liver injury 03/29/2023 Alcohol induced fatty liver 03/29/2023 08/23/2023 Elevated liver transaminase level 03/29/2023 08/23/2023 Hepatosplenomegaly 03/28/2023 4 Acute hyperactive alcohol withdrawal delirium 04/05/19 23 03/30/2023 documented as of this encounter (statuses as of 09/12/2023) Immunizations Name Administration Dates Next Due DTaP Dipth/Tet/Acell Pertussis (Infanrix), Peds 08/22/1993,02/19/1990,03/27/1989,1988,1988 HIB PRP-T, 4 Dose, PF, IM (H iberix, ActHib) 11/27/1989 Hepatitis B, 0-19 yrs 10/11/1998,03/21/1998,01/02 MMR - Measles/Mumps/Rubella Vaccine 08/22/1993,1 OPV - Polio Virus Vaccine (Oral) 994,02/19/1990,1988,1988 Pneumococcal Conjugate Vacci ne, 20-valent ([id number]) 01/31/2023 Seasonal Influenza, PF, 6 M & above, IM , (FluLaval or Fluzone) 11/24/2022 TB Angelica Test 06/10/1989 TD - Tetanus/Diptheria (ADULT) 07/08/2003 TDAP (age 10 and older)(Boostrix) 01/31/2023 TDAP, [...] No 10/26/2022 Does the household have a [facility] source of income? (Household - for ages [...] encounter Miscellaneous Notes * Telephone Encounter - Rain Quiroga RN - 09/12/2023 12:09 PM EDT Images from the original note were not included. Megan Henning MD Bailey, Amy J, OSA; [place] [facility] Nurse Pool/Class14 minutes ago (11:54 AM) I am in clinic tomorrow and can add him in at 12:40. I have no other clinic options next week as I have no scheduled clinic days. * Telephone Encounter - Sparkle Starr OSA - 09/12/2023 11:[address] Henning, Can you add this pt. * Telephone Encounter - Sparkle Starr OSA - 09/12/2023 11:08 AM EDT Images from the original note were not included. Zakia Jang MD [facility] Nurse Pool/Class; [facility] Scheduling/Referral Pool/Class8 minutes ago (10:59 AM) Any abdominal swelling? What is his weight? ANy shortness of breath or orthopnea? He is not currently on diuretics, and has no history of volume overload. He needs to be seen by PCP. He should also be seen in hepatology clinic in 1-2 weeks. In the mean time, will use low dose llasix. Diuretic regimen can be changed to aldactone or bumex after being seen in hepatology. He will need BMP 1 week after starting diuretics. Schedulers - This pt needs hepatology clinic apptment 1-2 weeks for w/u of volume overload. Please arrange. * Telephone Encounter - Amber Reyna OSA - 09/12/2023 10:17 AM EDT Patient returning message from nurse about test results, attempted to transfer to office, no answer. Patient was notified that the results from Dr. Jang were forwarded to him through his MyG. Patient is not using alcohol, he also wanted to let Dr. Jang know that his Legs are swelling to the point he can't get boot on. * Telephone Encounter - Rain Quiroga RN - 09/12/2023 9:46 AM EDT No answer. LM requesting return call. MyG message also sent * Telephone Encounter - Ninoska Spicer OSA - 09/11/2023 4:43 PM EDT Patient returned call . Tried to transfer but no answer on Nurse lines. Please call patient on number listed in chart. * Telephone Encounter - Rain Quiroga RN - 09/11/2023 4:09 PM EDT No answer. LM requesting return call. * Telephone Encounter - Rain Quiroga RN - 09/11/2023 4:08 PM EDT ----- Message from Zakia Jang MD sent at 09/11/2023 3:51 PM EDT ----- Nurses - Please let pt know that liver labs are stable. His MELD score and discirimnant factor, which are markers of severity of liver inflammation, are stable. Should cont alcohol cessation - pleaseask him if he is still drinking. No need steroids. MELD 3.0: 16 at 09/11/2023 10:52 AM MELD-Na: 17 at 09/11/2023 10:52 AM Calculated from: Serum Creatinine: 0.6 mg/dL (Using min of 1 mg/dL) at 09/11/2023 10:52 AM Serum Sodium: 139 mmol/L (Using max of 137 mmol/L) at 09/11/2023 10:52 AM Total Bilirubin: 2.8 mg/dL at 09/11/2023 10:52 AM Serum Albumin: 3.6 g/dL (Using max of 3.5 g/dL) at 09/11/2023 10:52 AM INR(ratio): 1.8 at 09/11/2023 10:52 AM Age at listing (hypothetical): 33 years Sex: Male at 09/11/2023 10:52 AM DF is 27 documented in this encounter Plan of Treatment Upcoming Encounters Date Type Department Care Team (Latest Contact Info) Description 4 2:30 PM EDT Office Visit Podiatry [facility] [address] [place] [address] Severo Alvarado, DPM [address] [place] [address] 4 4:20 PM EDT Office Visit Family [facility] [address] [place] [address] Tami Upton MD [address] [place] [address] 4 9:30 AM EDT Hospital Encounter ENDO [facility], Endoscopy Room [facility] [address] [place] [phone] Scott Morillo, DO [address] [place] [address] 4 9:30 AM EDT - 4 10:15 AM EDT Surgery ENDO [facility], Endoscopy Room [facility] [address] [place] [phone] Scott Morillo, DO [address] [place] [address] ESOPHAGOGASTRODUODENOSCOPY (EGD), FLEXIBLE, TRANSORAL, ENDOSCOPIC ULTRASOUND 4 1:10 PM EDT Hospital Encounter OR [facility], Operating Room [facility] [address] [place] [phone] Gregory Lima MD [address] [place] [address] [place] [address] 4 1:10 PM EDT - 4 1:30 PM EDT Surgery OR [facility], Operating Room [facility] [address] [place] [address] Gregory Lima MD [address] [place] [address] [place] [address] L-/S-SPINE PARAVERTEBRAL FACET INJ, 1 LEVEL 4 1:40 PM EDT Telemedicine Hepatology, [facility] [address] [place] [address] Katty Hernandes DO [address] [place] [address] 4 1:45 PM EST Hospital Encounter OR [facility], Operating Room [facility] [address] [place] [phone] Manuel Bashir, DO [address] [place] [address] 4 1:45 PM EST - 4 2:10 PM EST Surgery OR [facility], Operating Room [facility] [address] [place] [address] Manuel Bashir, DO [address] [place] [phone] L-/S-SPINE PARAVERTEBRAL FACET INJ, 1 LEVEL Scheduled Orders Name Type Priority Associated Diagnoses Orde r Schedule BASIC METABOLIC PANEL Lab Routine Hypervolemia, unspecified hypervolemia type Expected: 09/19/2023, Expires: 09/11/2024 Scheduled Procedures Name Priority Associated Diagnoses Date/Ti wy ESOPHAGOGASTRODUODENOSCOPY ( EGD), FLEXIBLE, TRANSORAL, ENDOSCOPIC ULTRASOUND [...] as of this encounter Visit Diagnoses Diagnosis Hypervolemia, unspecified hypervolemia type- Primary Alcohol abuse Alcohol abuse, unspecified Hepatic fibrosis [...] Advance Directives occurred with: Patient Care Teams Hogshead Roller Relationship Specialty Start Date End Date Tami Upton MD [address] [place] [phone] PCP - General Family Medicine 06/19/23 documented as of this encounter
--- OUTSIDE RECORDS SUMMARY | 2023-10-15 03:06 | External Medical Summary ---
Author Name Unknown Address Unknown Organization K01:[facility] - [address] [place] [address] Laboratory Report Ordering Provider Test Date Status ARLINE TOM 09/17/2023 14:42:35 Final Observation Date Value Abnormality Reference (Units ) Status BUN 09/17/2023 14:42:35 12 6-20 (mg/dL) Final Creatinine 09/17/2023 14:42:35 0.6 0.6-1.2 (mg/dL) Final Glomerular filtration rate/1.73 sq M.predicted [Volume Rate/Area] in Serum, Plasma or Blood by Creatinine-based formula (CKD-EPI) 09/17/2023 14:42:35 >90 >=60 (mL/min) Final eGFR is calculated based on the CKD-EPI 2020 equation Sodium 09/17/2023 14:42:35 137 135-146 (m mol/L) Final Potassium 09/17/2023 14:42:35 4.2 3.5-5.1 (m mol/L) Final Cl 09/17/2023 14:42:35 103 98-107 (mm ol/L) Final CO2 09/17/2023 14:42:35 24 22-32 (mmo l/L) Final Anion gap 09/17/2023 14:42:35 10 7-15 (mmol /L) Final Glucose 09/17/2023 14:42:35 91 70-120 (mg /dL) Final Calcium 09/17/2023 14:42:35 9.4 8.4-10.2 ( mg/dL) Final Performing Location [facility] - [address] [place] [place] [address]
--- OUTSIDE RECORDS SUMMARY | 2023-10-15 03:06 | External Medical Summary | Summary of Care ---
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 (Household - for ages [...] 18 years and over) Not on file 01/26/202 4 Are you (or your family) miguel eless [...] Care Team (Latest Contact Info) Description 4 4:20 PM EDT Office Visit [address] [phone] Tami Upton MD [address] [place] [phone] 4 9:30 AM EDT Hospital Encounter ENDO [facility], Endoscopy Room [facility] [address] [place] [phone] Scott Mroillo, DO [address] [place] [address] 4 9:30 AM EDT - 4 10:15 AM EDT Surgery ENDO [facility], Endoscopy Room [facility] [address] [place] [phone] Scott Morillo, DO [address] [place] [address] ESOPHAGOGASTRODUODENOSCOPY (EGD), FLEXIBLE, TRANSORAL, ENDOSCOPIC ULTRASOUND 4 1:10 PM EDT Hospital Encounter OR [facility], Operating Room [facility] [address] [place] [phone] Gregory Lima MD [address] [place] [address] 4 1:10 PM EDT - 4 1:30 PM EDT Surgery OR [facility], Operating Room [facility] [address] [place] [phone] Gregory Lima MD [address] [place] [address] L-/S-SPINE PARAVERTEBRAL FACET INJ, 1 LEVEL 4 1:40 PM EDT Telemedicine Hepatology, [facility] [address] [place] [address] Katty Hernandes, DO [address] [place] [address] 4 1:45 PM EST Hospital Encounter OR [facility], Operating Room [facility] [address] [place], [place] [phone] Manuel Bashir, DO [address] [place] [address] 4 1:45 PM EST - 4 2:10 PM EST Surgery OR [facility], Operating Room [facility] [address] [place] [phone] Manuel Bashir, DO [address] [place] [address] L-/S-SPINE PARAVERTEBRAL FACET INJ, 1 LEVEL Pending Results Name Type Priority Associated Diagnoses Date /Time BASIC METABOLIC PANEL Lab Routine Hypervolemia, unspecified hypervolemia type 09/17/2023 2:42 PM EDT URIC ACID Lab Routine 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
--- OUTSIDE RECORDS SUMMARY | 2023-10-15 03:06 | External Medical Summary | Summary of Care ---
Author Name Unknown Organization [facility] Address [address] [facility] [place] [address] Phone [phone] Care Team Providers Care Channel Development Manager Name Role Phone Tami Upton MD Primary Care Provi elena Encounter Details Date Type Department Care Team (Late st Contact Info) Description 09/14/2023 Orders Only PATIENT PORTAL DO NOT DELETE THIS DEPT USED BY [place] [id number] Allergies No known active allergiesdocumented as of this encounter (statuses as of 09/14/2023) Medications Medication Sig Dispensed Refills Start Date [...] as of this encounter (statuses as of 09/14/2023) Active Problems Problem Noted Date Diagnosed Date [...] as of this encounter (statuses as of 09/14/2023) Resolved Problems Problem Noted Date Diagnosed Date [...] as of this encounter (statuses as of 09/14/2023) Immunizations Name Administration Dates Next Due Pneumococcal [...] 4 2:30 PM EDT Office Visit Podiatry [address] [place] [phone] Severo Alvarado, DPThomas [address] [place] [address] 4 4:20 PM EDT Office Visit Family Practice [facility] [address] [place] [phone] Tami Upton MD [address] [place] [phone] 4 9:30 AM EDT Hospital Encounter ENDO [facility], Endoscopy Room [facility] [address] [place] [phone] Scott Morillo, [address] [place] [address] 4 9:30 AM EDT - 4 10:15 AM EDT Surgery ENDO [facility], Endoscopy Room [facility] [address] [place] [phone] Scott Morillo, [address] [place] [address] ESOPHAGOGASTRODUODENOSCOPY (EGD), FLEXIBLE, TRANSORAL, ENDOSCOPIC ULTRASOUND 4 1:10 PM EDT Hospital Encounter OR [facility], Operating Room [facility] [address] [place] [phone] Gregory Lima MD [address] [place] [address] 4 1:10 PM EDT - 4 1:30 PM EDT Surgery OR [facility], Operating Room [facility] [address] [place] [phone] Gregory Lima MD [address] [place] [address] L-/S-SPINE PARAVERTEBRAL FACET INJ, 1 LEVEL 4 1:40 PM EDT Telemedicine Hepatology, [facility] [address] [place] [address] Katty Hernandes, DO [address] [place] [address] 4 1:45 PM EST Hospital Encounter OR [facility], Operating Room [facility] [address] [place] [phone] Manuel Bashir, DO [address] [place] [phone] 4 1:45 PM EST - 4 2:10 PM EST Surgery OR [facility], Operating Room [facility] [address] [place] [phone] Manuel Bashir, DO [address] [place] [phone] L-/S-SPINE PARAVERTEBRAL FACET INJ, 1 LEVEL Scheduled [...] 08/05/2015 08/04/2014 COVID-19 Vaccine (2022- season) 2022 Influenza Vaccine (FLU shot) (#1) [...] filedocumented as of this encounter Advance Directives * Full Code (Latest Code Status on File) Date Activated Date Inactivated Comments 03/29/2023 1:43 PM 04/02/2023 2:03 PM This order r eflects the patients wishes and were consensually agreed upon. Question Answer Comments Discussion of Advance Directives occurred with: Patient Care Teams Channel Development Manager Relationship Specialty Start Date End Date Tami Upton MD [address] [place] [phone] PCP - General Family Medicine 06/19/23 documented as of this encounter
--- OUTSIDE RECORDS SUMMARY | 2023-10-15 03:06 | External Medical Summary | Summary of Care ---
Author Name Unknown Organization [facility] Address [address] [place] [address] Phone [phone] Care Team Providers Care Surveillance Inspector Name Role Phone Tami Upton MD Primary Care Provi elena Reason for Visit * Reason Onset Date Comments Test Results 09/11/2023 Encounter Details Date Type Department Care Team (Late st Contact Info) Description 09/11/2023 Telephone Gastroenterology, [address] [phone] Zakia Jang MD [address] [facility] [place] [address] Test Results Allergies No known active allergiesdocumented [...] (Oral) 994,02/19/1990,1988,1988 Pneumococcal Conjugate Vacci ne, 20-valent ([id number]) 01/31/2023 Seasonal Influenza, PF, 6 M & [...] No 10/26/2022 Does the household have a [facility] source of income? (Household - for [...] encounter Miscellaneous Notes * Telephone Encounter - Sparkle Starr OSA - 09/12/2023 1:12 PM EDT Called pt and venu'd 12:40 09/12 * Telephone Encounter - Rain Quiroga RN - 09/12/2023 12:09 PM EDT Images from the original note were not included. Megan Henning MD Bailey, Amy J, OSA; [facility] Nurse Pool/Class14 minutes ago (11:54 AM) I [...] Care Team (Latest Contact Info) Description 4 12:40 PM EDT Office Visit Hepatology, [facility] [address] [place] [address] Meagn Henning MD [address] [place] [address] 4 2:30 PM EDT Office Visit Podiatry [address] [place] [phone] Severo Alvarado, Thomas [address] [place] [address] 4 4:20 PM EDT Office Visit Family Practice [address] [phone] Tami Upton MD [address] [place] [phone] 4 9:30 AM EDT Hospital Encounter ENDO [facility], Endoscopy Room [facility] [address] [place] [phone] Scott Morillo, [address] [place] [address] 4 9:30 AM EDT - 4 10:15 AM EDT Surgery ENDO [facility], Endoscopy Room [facility] [address] [place] [phone] Scott Morillo, DO [address] [place], [place] [address] ESOPHAGOGASTRODUODENOSCOPY (EGD), FLEXIBLE, TRANSORAL, ENDOSCOPIC ULTRASOUND 4 1:10 PM EDT Hospital Encounter OR [facility], Operating Room [facility] [address] [place], [place] [phone] Gregory Lima MD [address] [place] [address] 4 1:10 PM EDT - 4 1:30 PM EDT Surgery OR [facility], Operating Room [facility] [address] [place] [address] Gregory Lima MD [address] [place] [address] L-/S-SPINE PARAVERTEBRAL FACET INJ, 1 LEVEL 4 1:40 PM EDT Telemedicine Hepatology, [facility] [address] [place], [place] [address] Katty Hernandes, DO [address] [place] [address] 4 1:45 PM EST Hospital Encounter [facility], Operating Room [facility] [address] [place] [phone] Manuel Bashir, DO [address] [place], [place] [phone] 4 1:45 PM EST - 4 2:10 PM EST Surgery OR [facility], Operating Room [facility] [address] [place] [phone] Manuel Bashir, DO [address] [place], [place] [address] L-/S-SPINE PARAVERTEBRAL FACET INJ, 1 LEVEL Scheduled Orders Name Type Priority Associated Diagnoses Orde r Schedule BASIC METABOLIC PANEL Lab Routine Hypervolemia, unspecified hypervolemia type Expected: 09/19/2023, Expires: 09/11/2024 Scheduled Procedures Name Priority Associated Diagnoses Date/Ti ak ESOPHAGOGASTRODUODENOSCOPY ( EGD), FLEXIBLE, TRANSORAL, ENDOSCOPIC ULTRASOUND [...] Advance Directives occurred with: Patient Care Teams Surveillance Inspector Relationship Specialty Start Date End Date Tami Upton MD [address] [place] [phone] PCP - General Family Medicine 06/19/23 documented as of this encounter
--- OUTSIDE RECORDS SUMMARY | 2023-10-15 03:06 | External Medical Summary | Summary of Care ---
Author Name Unknown Organization [facility] Address [address] [place] [address] Phone [phone] Care Team Providers Care Offset Printer Name Role Phone Tami Upton MD Primary Care Provi elena Reason for Visit * Reason Onset Date Comments Hospital Follow-Up 08/14/2023 Encounter Details Date Type Department Care Team (Late st Contact Info) Description 08/14/2023 Telephone General Internal Medicine [facility] [address] [place] [address] Tami Upton MD [address] [place] [phone] Hospital Follow-Up Allergies No known active allergiesdocumented as of this encounter (statuses as of 09/12/2023) Medications Medication Sig Dispensed Refills Start Date End Date Status Folic Acid 1 MG Oral Tablet Take 1 Tablet by mouth in the morning. 30 Tablet 2 06/26/2023 Active Melatonin 10 MG Oral Tablet Chewable Take by mouth. Active Acetaminophen 500 MG Oral Tablet (Tylenol Extra Strength) Take 1 Tablet by mouth every 6 hours as needed. 4 Discontinued(Medi cation List Clean Up) Paliperidone ER 6 MG Oral Tablet Extended Release 24 Hour (Invega)Indicati ons:Other insomnia Take 1 Tablet by mouth in the morning. 30 Tablet 06/26/2023 4 Discontinued Gabapentin 100 MG Oral Capsule (Neurontin)Indic ations:Compressi on fracture of T12 vertebra, sequela,Compress ion fracture of L1 vertebra, sequela Take 1 Capsule by mouth in the morning and 1 Capsule at noon and 1 Capsule before bedtime. 90 Capsule 5 06/26/2023 Discontinued documented as of this encounter (statuses [...] (Oral) 994,02/19/1990,1988,1988 Pneumococcal Conjugate Vacci ne, 20-valent ([id number]) 01/31/2023 Seasonal Influenza, PF, 6 M & [...] encounter Miscellaneous Notes * Telephone Encounter - Alize Art RN - 08/28/2023 11:20 AM EDT Images from the original note were not included. Spoke to pt. Results given and aware on move up list for earlier appt. Will have repeat labs ordered on 08/26/23 in 2 weeks. Pt has had no ETOH for 3 weeks now. Zakia Jang MD You; Katty Hernandes DO; Coy Robison Gastro Scheduling Pool/Class2 days ago Labs reviewed. DF < 32, MELD < 20. PETH high indicating heavy recent alcohol use. No need steroids. Should have repeat labs in 2 weeks, ordered * Telephone Encounter - Sparkle Starr OSA - 08/20/2023 12:25 PM EDT Pt is on move up list for earlier time * Telephone Encounter - Alize Art, RN - 08/20/2023 10:56 AM EDT Called pt to f/u Pt is aware that liver bx for 08/28/23 is cancelled at this point. Pt asked what is to do in the meantime prior to Dec. Appointment with Dr Hernandes. Reinforced recommendation from Dr Morillo getting treatment for ETOH. Pt states he is seeing [facility] in [place], seeing a therapist and pursuing in rehab facility. Sending to covering Dr this week as pt had labs drawn that Dr Hernandes had ordered for review in case results need addressed. Schedulers, please put pt on a move up list if earlier appt that December opens up for Dr Hernandes.As was to be a 3 month f/u from 07/09/23 * Telephone Encounter - Tamara Horner OSA - 2023 4:30 PM EDT Patient is currently at the lab now to get a recheck of his lab work. So he said he would call backor I said we can give a call Saturday if necessary. I think he is hoping labs are good enough to keepprocedure. * Telephone Encounter - Scott Morillo DO - 2023 4:17 PM EDT The EUS guided liver biopsy should be cancelled as his platelet count was under 70 during his most recent hospital stay. Based on the available history he was recently admitted to [facility] with alcohol intoxication and felt to have alchololic hepatitis / liver disease. Liver biopsy will not likely add much to his present care. Recommendations: Cancel the eus guided liver biopsy Patient should consider an alcohol treatment program if interested in pursuing a liver transplant evaluation. Further recommendations per the patients regular gi or liver provider. * Telephone Encounter - Alize Art RN - 2023 12:32 PM EDT Called pt. Dr Morillo can you review as pt scheduled with you 08/27/24 for liver bx He is concerned about f/u being December has he has liver bx scheduled 08/28/[address] Bowling told him that he was in no shape to have a liver bx done currently. Noted in Dr Hernandes's note pt needed platelets checked prior to bx. Labs not done yet. Discussed with pt, he will go have lab work done today. Reinforced the importance of not drinking ETOH, he said that was explained over and over the last 6days while inpt at [facility]. * Telephone Encounter - Sparkle Starr OSA - 2023 11:25 AM EDT Pt has questions regarding f/u. He would like a nurse to give him a call back. * Telephone Encounter - Sparkle Starr OSA - 2023 11:24 AM EDT Appt 12/23. Dr. Hernandes * Telephone Encounter - Sparkle Starr OSA - 2023 11:24 AM EDT Images from the original note were not included. Megan Henning MD YouYester (11:10 AM) Next available and if he gets in sooner with a mid level thats fine * Telephone Encounter - Sparkle Starr OSA - 08/14/2023 4:[address] Henning, Please review and advise if this pt should be added soon? * Telephone Encounter - Efren Wright RN - 08/14/2023 2:17 PM EDT Patient discharged 08/14/23 to home from [facility] after treatment for acute hepatitis, GIB. Pt seen by GI at [facility], GI at [facility] contacted for possible transfer, declined transfer. Hematemesis improved, Maddreys score improved to 48.9, discharged with recommendation to follow up closely with Hepatology. Ple ase assist with a closer appointment if possible. Thank you documented in this encounter Plan of Treatment Upcoming Encounters Date Type Department Care Team (Latest Contact Info) Description 4 2:30 PM EDT Office Visit Podiatry [address] [place] [phone] Severo Alvarado, ALEXANDR [address] [place] [address] 4 4:20 PM EDT Office Visit Family Practice [facility] [address] [place] [phone] Tami Upton MD [address] [place] [phone] 4 9:30 AM EDT Hospital Encounter ENDO [facility], Endoscopy Room [facility] [address] [place] [address] Scott Morillo DO [address] [place] [address] 4 9:30 AM EDT - 4 10:15 AM EDT Surgery ENDO [facility], Endoscopy Room [facility] [address] [place], [place] [phone] Scott Morillo, DO [address] [place], [place] [address] ESOPHAGOGASTRODUODENOSCOPY (EGD), FLEXIBLE, TRANSORAL, ENDOSCOPIC ULTRASOUND 4 1:10 PM EDT Hospital Encounter OR [facility], Operating Room [facility] [address] [place] [address] Gregory Lima MD [address] [place] [address] 4 1:10 PM EDT - 4 1:30 PM EDT Surgery OR [facility], Operating Room [facility] [address] [place] [address] Gregory Lima MD [address] [place] [address] L-/S-SPINE PARAVERTEBRAL FACET INJ, 1 LEVEL 4 1:40 PM EDT Telemedicine Hepatology, [facility] [address] [place] [address] Katty Hernandes, DO [address] [place] [address] 4 1:45 PM EST Hospital Encounter OR [facility], Operating Room [facility] [address] [place] [phone] Manuel Bashir, DO [address] [place], [place] [address] 4 1:45 PM EST - 4 2:10 PM EST Surgery OR [facility], Operating Room [facility] [address] [place] [phone] Manuel Bashir, [address] [place] [address] L-/S-SPINE PARAVERTEBRAL FACET INJ, 1 LEVEL Scheduled Procedures Name Priority Associated Diagnoses Date/Ti md ESOPHAGOGASTRODUODENOSCOPY ( EGD), FLEXIBLE, TRANSORAL, ENDOSCOPIC ULTRASOUND [...] Advance Directives occurred with: Patient Care Teams Offset Printer Relationship Specialty Start Date End Date Tami Upton MD [address] [place] [phone] PCP - General Family Medicine 06/19/23 documented as of this encounter
--- OUTSIDE RECORDS SUMMARY | 2023-10-15 03:07 | External Medical Summary | Summary of Care ---
Author Name Unknown Organization [facility] Address [address] [place] [address] Phone [phone] Care Team Providers Care Fiberglasser Name Role Phone Tami Upton MD Primary Care Provi elena Reason for Visit * Reason Onset Date Comments Test Results 09/11/2023 Encounter Details Date Type Department Care Team (Late st Contact Info) Description 09/11/2023 Telephone Gastroenterology, [address] [phone] Zakia Jang MD 132 [facility] [place] [address] Test Results Allergies No known active allergiesdocumented [...] (Oral) 994,02/19/1990,1988,1988 Pneumococcal Conjugate Vacci ne, 20-valent ([id number]) 01/31/2023 Seasonal Influenza, PF, 6 M & [...] No 10/26/2022 Does the household have a [place] source of income? (Household - for ages [...] in chart. * Telephone Encounter - Rain Quiorga RN - 09/11/2023 4:09 PM EDT No [...] 4 2:30 PM EDT Office Visit Podiatry [address] [place] [phone] Severo Alvarado DPM [address] [place], [place] [phone] 4 4:20 PM EDT Office Visit Family [address] [phone] Tami Upton MD 68 [facility] [place] [phone] 4 9:30 AM EDT Hospital Encounter ENDO [facility], Endoscopy Room [facility] [address] [place], [place] [phone] Scott Morillo, DO [address] [place], [place] [address] 4 9:30 AM EDT - 4 10:15 AM EDT Surgery ENDO [facility], Endoscopy Room [facility] [address] [place] [address] Scott Morillo, DO [address] [place] [address] ESOPHAGOGASTRODUODENOSCOPY (EGD), FLEXIBLE, TRANSORAL, ENDOSCOPIC ULTRASOUND 4 1:10 PM EDT Hospital Encounter OR [facility], Operating Room [facility] [address] [place] [phone] Gregory Lima MD [address] [place] [address] 4 1:10 PM EDT - 4 1:30 PM EDT Surgery OR [facility], Operating Room [facility] [address] [place] [address] Gregory Lima MD [address] [place] [address] L-/S-SPINE PARAVERTEBRAL FACET INJ, 1 LEVEL 4 1:40 PM EDT Telemedicine Hepatology, [facility] [address] [place] [address] Katty Hernandes, DO [address] [place] [address] 4 1:45 PM EST Hospital Encounter OR [facility], Operating Room [facility] [address] [place] [address] Manuel Bashir, DO [address] [place] [address] 4 1:45 PM EST - 4 2:10 PM EST Surgery OR [facility], Operating Room [facility] [address] [place] [address] Manuel Bashir, DO [address] [place] [address] L-/S-SPINE PARAVERTEBRAL FACET INJ, 1 LEVEL Scheduled Orders Name Type Priority Associated Diagnoses Orde r Schedule BASIC METABOLIC PANEL Lab Routine Hypervolemia, unspecified hypervolemia type Expected: 09/19/2023, Expires: 09/11/2024 Scheduled Procedures Name Priority Associated Diagnoses Date/Ti tx ESOPHAGOGASTRODUODENOSCOPY ( EGD), FLEXIBLE, TRANSORAL, ENDOSCOPIC ULTRASOUND [...] Advance Directives occurred with: Patient Care Teams Fiberglasser Relationship Specialty Start Date End Date Tami Upton MD [address] [place] [phone] PCP - General Family Medicine 06/19/23 documented as of this encounter
--- OUTSIDE RECORDS SUMMARY | 2023-10-15 03:07 | External Medical Summary ---
Author Name Unknown Address Unknown Organization K01:LABORATORY [facility] - [address] [place] [address] Laboratory Report Ordering Provider Test Date Status JOHNATHON STORM 09/11/2023 10:52:09 Final Observation Date Value Abnormality Reference (Units ) Status MYCODE SPECIMEN-SST 09/11/2023 10:52:09 Freezing of extracted DNA, whole blood and/or serum. Final Performing Location LABORATORY [facility] - [address] [place] [address]
--- OUTSIDE RECORDS SUMMARY | 2023-10-15 03:07 | External Medical Summary ---
Author Name Unknown Address Unknown Organization K0G:[facility] - [address] [place] [address] Laboratory Report Ordering Provider Test Date Status CORIE CLEMENT 09/11/2023 10:52:09 Final Observation Date Value Abnormality Reference (Units ) Status WBC, Total 09/11/2023 10:52:09 4.73 4.00-10.8 0 (K/uL) Final RBC 09/11/2023 10:52:09 3.73 4.50-5.25 (M/uL) Final Hemoglobin 09/11/2023 10:52:09 12.5 Below low normal 14 .0-16.8 (g/dL) Final HCT 09/11/2023 10:52:09 36.3 Below low normal 40. 0-48.4 (%) Final MCV 09/11/2023 10:52:09 97.3 82.0-99.5 (fL) Final MCH 09/11/2023 10:52:09 33.5 27.0-34.0 (pg) Final MCHC 09/11/2023 10:52:09 34.4 32.0-36.0 (g/dL) Final RDW 09/11/2023 10:52:09 16.6 11.5-15.5 (%) Final Platelets 09/11/2023 10:52:09 116 Below low normal 140 -400 (K/uL) Final MPV 09/11/2023 10:52:09 9.7 6.6-11.1 ( fL) Final Performing Location [facility]ATORY [facility] 0 - [address] [place] [address]
--- OUTSIDE RECORDS SUMMARY | 2023-10-15 03:07 | External Medical Summary ---
Author Name Unknown Address Unknown Organization K0G:[facility] [facility] - [address] [place] [address] Laboratory Report Ordering Provider Test Date Status CORIE CLEMENT 09/11/2023 10:52:09 Final Observation Date Value Abnormality Reference (Units ) Status BUN 09/11/2023 10:52:09 10 6-20 (mg/dL) Final Creatinine 09/11/2023 10:52:09 0.6 0.6-1.2 (mg/dL) Final Glomerular filtration rate/1.73 sq M.predicted [Volume Rate/Area] in Serum, Plasma or Blood by Creatinine-based formula (CKD-EPI) 09/11/2023 10:52:09 >90 >=60 (mL/min) Final eGFR is calculated based on the CKD-EPI 2020 equation Sodium 09/11/2023 10:52:09 139 135-146 (m mol/L) Final Potassium 09/11/2023 10:52:09 4.4 3.5-5.1 (m mol/L) Final Cl 09/11/2023 10:52:09 104 98-107 (mm ol/L) Final CO2 09/11/2023 10:52:09 25 22-32 (mmo l/L) Final Anion gap 09/11/2023 10:52:09 10 7-15 (mmol /L) Final Glucose 09/11/2023 10:52:09 79 70-120 (mg /dL) Final Albumin 09/11/2023 10:52:09 3.6 Below low normal 3.8 -5.0 (g/dL) Final AST (Aspartate aminotransferase) 09/11/2023 10:52:09 154 Above high normal 10-50 (U/L) Final Alk Phos 09/11/2023 10:52:09 111 35-130 (U/ L) Final Bilirubin, Total 09/11/2023 10:52:09 2.8 Above high no rmal <=1.2 (mg/dL) Final Calcium 09/11/2023 10:52:09 9.5 8.4-10.2 ( mg/dL) Final Protein 09/11/2023 10:52:09 6.6 6.0-8.3 (g /dL) Final ALT (Alanine aminotransferase) 09/11/2023 10:52:09 119 Above high normal 10-50 (U/L) Final Performing Location LABORATORY [place] [facility] 0 - [address] [facility] [address]
--- OUTSIDE RECORDS SUMMARY | 2023-10-15 03:07 | External Medical Summary | Summary of Care ---
Author Name Unknown Organization [facility] Address [address] [facility] [place] [address] Phone [phone] Care Team Providers Care School Cafeteria Cook Name Role Phone Tami Upton MD Primary Care Provi eelna Reason for Visit * Reason Comments Outpatient Testing Encounter Details Date Type Department Care Team (Late st Contact Info) Description 09/11/2023 10:50 AM EDT Laboratory Laboratory, [facility] [address] [place] [phone] [facility] [address] [place] [address] Alcoholic cirrhosis of liver without ascites (HCC); [employer] Other*[id number]; Alcohol induced fatty liver Allergies No known active allergiesdocumented as of this encounter (statuses as of 09/11/2023) Medications Medication Sig Dispensed Refills Start Date [...] the morning. 30 Tablet 5 08/28/2023 Active documented as of this encounter (statuses as of 09/11/2023) Active Problems Problem Noted Date Diagnosed Date [...] as of this encounter (statuses as of 09/11/2023) Resolved Problems Problem Noted Date Diagnosed Date [...] as of this encounter (statuses as of 09/11/2023) Immunizations Name Administration Dates Next Due Pneumococcal [...] 4 2:30 PM EDT Office Visit Podiatry [facility] [address] [facility] [address] [place] [phone] Severo Alvarado, ALEXANDR [address] [place] [address] 4 4:20 PM EDT Office Visit Family Practice [facility] [address] [place] [phone] Tami Upton MD [address] [place] [phone] 4 9:30 AM EDT Hospital Encounter ENDO [facility], Endoscopy Room [facility] [address] [place] [address] Scott Morillo, DO [address] [place] [address] 4 9:30 AM EDT - 4 10:15 AM EDT Surgery ENDO [facility], Endoscopy Room [facility] [address] [place] [address] Scott Morillo, DO [address] [place] [address] ESOPHAGOGASTRODUODENOSCOPY (EGD), FLEXIBLE, TRANSORAL, ENDOSCOPIC ULTRASOUND 4 1:10 PM EDT Hospital Encounter OR [facility], Operating Room [facility] [address] [place] [address] Gregory Lima MD [address] [place] [address] 4 1:10 PM EDT - 4 1:30 PM EDT Surgery OR [facility], Operating Room [facility] [address] [place] [address] Gregory Lima MD [address] [place] [address] L-/S-SPINE PARAVERTEBRAL FACET INJ, 1 LEVEL 4 1:40 PM EDT Telemedicine Hepatology, [facility] [address] [place] [address] Katty eHrnandes, DO [address] [place] [address] 4 1:45 PM EST Hospital Encounter OR [facility], Operating Room [facility] [address] [place] [address] Manuel Bashir, DO [address] [place] [address] 4 1:45 PM EST - 4 2:10 PM EST Surgery OR [facility], Operating Room [facility] [address] [place] [address] Manuel Bashir, DO [address] [place] [address] L-/S-SPINE PARAVERTEBRAL FACET INJ, 1 LEVEL Pending Results Name Type Priority Associated Diagnoses Date /Time CBC WITH WBC DIFFERENTIAL Lab Routine Alcoholic cirrhosis of liver without ascites (HCC) 09/11/2023 10:52 AM EDT COMPREHENSIVE METABOLIC PANEL Lab Routine Alcoholic cirrhosis of liver without ascites (HCC) 09/11/2023 10:52 AM EDT BILIRUBIN, DIRECT Lab Routine Alcoholic cirrhosis of liver without ascites (HCC) 09/11/2023 10:52 AM EDT PT INR Lab Routine Alcoholic cirrhosis of liver without ascites (HCC) 09/11/2023 10:52 AM EDT MYCODE INITIAL ADULT Lab Routine [employer] Other*[id number] 09/11/2023 10:52 AM EDT CBC Lab Routine Alcoholic cirrhosis of liver without ascites (HCC) 09/11/2023 10:52 AM EDT DIFFERENTIAL, AUTOMATED Lab Routine Alcoholic cirrhosis of liver without ascites (HCC) 09/11/2023 10:52 AM EDT MYCODE INITIAL ADULT-PINK Lab Routine [employer] Other*[id number] 09/11/2023 10:52 AM EDT MYCODE SST1 Lab Routine [employer] Other*[id number] 09/11/2023 10:52 AM EDT MYCODE SST2 Lab Routine [employer] Other*[id number] 09/11/2023 10:52 AM EDT Scheduled Procedures Name Priority Associated Diagnoses [...] (FLU shot) (#1) 2023 11/24/2022 Diabetes Screening 08/15/2026 2023, 0 05/13/2023, 05/13/2023, Additional history exists DTaP,Tdap,and Td Vaccines [...] Diagnosis Alcoholic cirrhosis of liver without ascites (HCC) Alcoholic cirrhosis of liver [employer] Other*[id number] Alcohol induced fatty liver Alcoholic fatty liver Alcohol abuse Alcohol abuse, unspecified Hepatic fibrosis [...] Advance Directives occurred with: Patient Care Teams School Cafeteria Cook Relationship Specialty Start Date End Date Tami Upton MD [address] [place] [phone] PCP - General Family Medicine 06/19/23 documented as of this encounter
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
--- OUTSIDE RECORDS SUMMARY | 2023-10-15 03:07 | External Medical Summary ---
Author Name Unknown Address Unknown Organization K0G:[facility] - [address] [place] [address] Laboratory Report Ordering Provider Test Date Status CORIE CLEMENT 09/11/2023 10:52:09 Final Observation Date Value Abnormality Reference (Units ) Status Bilirubin, Direct 09/11/2023 10:52:09 1.0 Above high normal 0.0-0.3 (mg/dL) Final Performing Location [facility] 0 - [address] [place] [address]
--- OUTSIDE RECORDS SUMMARY | 2023-10-15 03:07 | External Medical Summary ---
Author Name Unknown Address Unknown Organization [id number]:[facility] - [address] [place] [address] Laboratory Report Ordering Provider Test Date Status JOHNATHON STORM 09/11/2023 10:52:09 Final Observation Date Value Abnormality Reference (Units ) Status MYCODE SPECIMEN-SST 09/11/2023 10:52:09 Freezing of extracted DNA, whole blood and/or serum. Final Performing Location [facility] - [address] [place] [address]
--- OUTSIDE RECORDS SUMMARY | 2023-10-15 03:07 | External Medical Summary ---
Author Name Unknown Address Unknown Organization [facility] - [address] [place] [address] Laboratory Report Ordering Provider Test Date Status CORIE CLEMENT 09/11/2023 10:52:09 Final Observation Date Value Abnormality Reference (Units ) Status SYNC LEUKOCYTES IN BLOOD BY AUTOMATED COUNT 09/11/2023 10:52:09 4.73 4.00-10.80 (K/uL) Final Segs 09/11/2023 10:52:09 31.1 Below low normal 40.0-75.0 (%) Final Lymphs % 09/11/2023 10:52:09 47.1 Above high normal 18.0-42.0 (%) Final Monos 09/11/2023 10:52:09 12.9 Above high normal 1.0-11.0 (%) Final Eosinophils 09/11/2023 10:52:09 7.8 Above high normal 0.0-6.0 (%) Final Basos 09/11/2023 10:52:09 1.1 0.0-2.0 (%) Final Absolute Segs 09/11/2023 10:52:09 1.47 Below low normal 1.80-7.70 (K/uL) Final Lymphs, absolute 09/11/2023 10:52:09 2.23 1.00-4.80 (K/ul) Final Monos, Abs 09/11/2023 10:52:09 0.61 0.00-1.10 (K/uL) Final Eos, Abs 09/11/2023 10:52:09 0.37 0.00-0.70 (K/uL) Final Basos, Abs 09/11/2023 10:52:09 0.05 0.00-0.20 (K/uL) Final Performing Location [facility] 0 - [address] [place] [address]
--- OUTSIDE RECORDS SUMMARY | 2023-10-15 03:07 | External Medical Summary | Summary of Care ---
Author Name Unknown Organization [facility] Address [address] [place] [address] Phone [phone] Care Team Providers Care Aerospace Manager Name Role Phone Tami Upton MD Primary Care Provi elena Reason for Visit * Reason Onset Date Comments Test Results 09/11/2023 Encounter Details Date Type Department Care Team (Late st Contact Info) Description 09/11/2023 Telephone Gastroenterology, [address] [phone] Zakia Jang MD [address] [facility] [place] [address] Test Results Allergies No known active allergiesdocumented [...] (Oral) 994,02/19/1990,1988,1988 Pneumococcal Conjugate Vacci ne, 20-valent ([id number]) 01/31/2023 Seasonal Influenza, PF, 6 M & [...] No 10/26/2022 Does the household have a [facility] source of income? (Household - for ages [...] 4 2:30 PM EDT Office Visit Podiatry [address] [place] [address] Severo Alvarado DPM [address] [place], [place] [phone] 4 4:20 PM EDT Office Visit Family [address] [phone] Tami Upton MD [address] [facility] [place] [phone] 4 9:30 AM EDT Hospital Encounter ENDO [facility], Endoscopy Room [facility] [address] [place], [place] [phone] Scott Morillo, DO [address] [place], [place] [address] 4 9:30 AM EDT - 4 10:15 AM EDT Surgery ENDO [facility], Endoscopy Room [facility] [address] [place] [address] Scott Morillo, DO [address] [place] [address] ESOPHAGOGASTRODUODENOSCOPY (EGD), FLEXIBLE, TRANSORAL, ENDOSCOPIC ULTRASOUND 4 1:10 PM EDT Hospital Encounter OR [facility], Operating Room [facility] [address] [place] [phone] Gregory Lima MD [address] [address] 4 1:10 PM EDT - 4 1:30 PM EDT Surgery OR [facility], Operating Room [facility] [address] [place] [address] Gregory Lima MD [address] [place] [address] L-/S-SPINE PARAVERTEBRAL FACET INJ, 1 LEVEL 4 1:40 PM EDT Telemedicine Hepatology, [facility] [address] [place] [address] Katty Hernandes, DO [address] [place] [address] 4 1:45 PM EST Hospital Encounter OR [facility], Operating Room [facility] [address] [place] [address] Manuel Bashir, DO [address] [place] [address] 4 1:45 PM EST - 4 2:10 PM EST Surgery OR [facility], Operating Room [facility] [address] [place] [address] Manuel Bashir, DO [address] [place] [address] L-/S-SPINE PARAVERTEBRAL FACET INJ, 1 LEVEL Scheduled Orders Name Type Priority Associated Diagnoses Orde r Schedule BASIC METABOLIC PANEL Lab Routine Hypervolemia, unspecified hypervolemia type Expected: 09/19/2023, Expires: 09/11/2024 Scheduled Procedures Name Priority Associated Diagnoses Date/Ti ks ESOPHAGOGASTRODUODENOSCOPY ( EGD), FLEXIBLE, TRANSORAL, ENDOSCOPIC ULTRASOUND [...] Advance Directives occurred with: Patient Care Teams Aerospace Manager Relationship Specialty Start Date End Date Tami Upton MD [address] [place] [phone] PCP - General Family Medicine 06/19/23 documented as of this encounter
--- OUTSIDE RECORDS SUMMARY | 2023-10-15 03:08 | External Medical Summary | Summary of Care ---
Author Name Unknown Organization [facility] Address [address] [place] [address] Phone [phone] Care Team Providers Care Double End Trimmer Name Role Phone Tami Upton MD Primary Care Provi elena Reason for Visit * Reason Onset Date Comments Appointment 08/23/2023 Encounter Details Date Type Department Care Team ([facility] st Contact Info) Description 08/23/2023 Telephone Family [address] [phone] Tami Upton MD [address] [place] [phone] Appointment Allergies No known active allergiesdocumented as of this encounter (statuses as of 08/29/2023) Medications Medication Sig Dispensed Refills Start Date [...] Tablet by mouth in the morning. Active documented as of this encounter (statuses as of 08/29/2023) Active Problems Problem Noted Date Diagnosed Date [...] as of this encounter (statuses as of 08/29/2023) Resolved Problems Problem Noted Date Diagnosed Date [...] as of this encounter (statuses as of 08/29/2023) Immunizations Name Administration Dates Next Due Pneumococcal [...] Telephone Encounter - Alex Reyes OSA - 08/23/2023 2:31 PM EDT Referral placed on 08/23/2023. Please assist in scheduling. Thank you documented in this encounter Plan of Treatment Upcoming Encounters Date Type Department Care Team (Latest Contact Info) Description 4 2:30 PM EDT Office Visit Podiatry [facility] [address] [facility] [address] [place] [phone] Sever[facility] Alvarado, [facility] [address] [place] [address] 4 4:20 PM EDT Office Visit Family Practice [facility] [address] [place] [phone] Tami Upton MD [address] [place] [phone] 4 2:15 PM EDT Office Visit Interventional Pain Center, [facility] [address] [place] [address] Gregory Lima MD [address] [place] [address] [place] [address] 4 9:30 AM EDT Hospital Encounter ENDO [facility], [facility] [address] [facility] [place] [phone] Scott Morillo DO [address] [place] [address] 4 9:30 AM EDT - 4 10:15 AM EDT Surgery ENDO [facility], Endoscopy Room [facility] [address] [place] [phone] Scott Morillo, DO [address] [place] [address] ESOPHAGOGASTRODUODENOSCOPY (EGD), FLEXIBLE, TRANSORAL, ENDOSCOPIC ULTRASOUND 4 1:40 PM EDT Telemedicine Hepatology, [facility] [address] [place] [address] Katty Hernandes, DO [address] [place] [address] Scheduled Procedures Name Priority Associated Diagnoses Date/Ti me ESOPHAGOGASTRODUODENOSCOPY ( EGD), FLEXIBLE, TRANSORAL, ENDOSCOPIC ULTRASOUND Alcohol abuse Hepatic fibrosis 11/05/2023 9:30 AM EDT ESOPHAGOGASTRODUODENOSCOPY ( EGD), FLEXIBLE, TRANSORAL, DIAGNOSTIC Alcohol abuse Hepatic fibrosis 11/05/2023 9:30 AM EDT Health Maintenance Due Date Last Done Comments Depression Screening 08/05/2015 08/04/2014 COVID-19 Vaccine ( season) 2022 Diabetes Screening 08/15/2026 2023, 0 05/13/2023, 05/13/2023, [...] Advance Directives occurred with: Patient Care Teams Double End Trimmer Relationship Specialty Start Date End Date Tami Upton MD [address] [place] [phone] PCP - General Family Medicine 06/19/23 documented as of this encounter
--- OUTSIDE RECORDS SUMMARY | 2023-10-15 03:08 | External Medical Summary ---
Author Name Unknown Address Unknown Organization K0G:[facility] - [address] [place] [address] Laboratory Report Ordering Provider Test Date Status CORIE CLEMENT 09/11/2023 10:52:09 Final Warfarin Therapy
INR: 2 .0-3.0 conventional anticoagulation
INR: 2.5- 3.5 high intensity anticoagulation Observation Date Value Abnormality Reference (Units ) Status PT 09/11/2023 10:52:09 20.9 Above high normal 11 .6-15.2 (seconds) Final INR 09/11/2023 10:52:09 1.8 Above high normal 0. 8-1.2 Final Performing Location [facility] 0 - [address] [place] [address]
--- OUTSIDE RECORDS SUMMARY | 2023-10-15 03:08 | External Medical Summary | Summary of Care ---
Author Name Unknown Organization [facility] Address [address] [facility] [place] [address] Phone [phone] Care Team Providers Care Electric Plater Name Role Phone Tami Upton MD Primary Care Provi elena Encounter Details Date Type Department Care Team (Late st Contact Info) Description 09/03/2023 Orders Only PATIENT PORTAL DO NOT DELETE THIS DEPT USED BY [place] [address] Allergies No known active allergiesdocumented as of this encounter (statuses as of 09/03/2023) Medications Medication Sig Dispensed Refills Start Date [...] as of this encounter (statuses as of 09/03/2023) Active Problems Problem Noted Date Diagnosed Date [...] as of this encounter (statuses as of 09/03/2023) Resolved Problems Problem Noted Date Diagnosed Date [...] as of this encounter (statuses as of 09/03/2023) Immunizations Name Administration Dates Next Due Pneumococcal [...] Care Team (Latest Contact Info) Description 4 10:15 AM EDT Office Visit Interventional Pain Center, [facility] [address] [place] [address] Gregory Lima MD [address] [place] [address] 4 2:30 PM EDT Office Visit Podiatry [address] [place] [phone] Sever[facility] Alvarado, [facility] [address] [place] [address] 4 4:20 PM EDT Office Visit Family Practice [address] [phone] Tami Upton MD [address] [place] [phone] 4 9:30 AM EDT Hospital Encounter ENDO [facility], Endoscopy Room [facility] [address] [place] [phone] Scott Morillo DO [address] [place] [address] 4 9:30 AM EDT - 4 10:15 AM EDT Surgery ENDO [facility], Endoscopy Room [facility] [address] [place] [phone] Morillo, Marten B, DO [address] [place] [address] ESOPHAGOGASTRODUODENOSCOPY (EGD), FLEXIBLE, TRANSORAL, ENDOSCOPIC ULTRASOUND 4 1:40 PM EDT Telemedicine Hepatology, [facility] [address] [place] [address] Katty Hernandes, DO [address] [place] [address] Scheduled Procedures Name Priority Associated Diagnoses Date/Ti [...] exists Hepatitis B Completed 10/11/1998, 03/04, 01/18/1998 Pneumococcal Vaccine: Pediatrics (0 to 5 [...] Advance Directives occurred with: Patient Care Teams Electric Plater Relationship Specialty Start Date End Date Tami Upton MD [address] [place] [phone] PCP - General Family Medicine 06/19/23 documented as of this encounter
--- OUTSIDE RECORDS SUMMARY | 2023-10-15 03:08 | External Medical Summary | Summary of Care ---
Author Name Unknown Organization [facility] Address [address] [place] [address] Phone [phone] Care Team Providers Care Commercial Agent Name Role Phone Tami Upton MD Primary Care Provi elena Reason for Visit * Reason Onset Date Comments Med Request 08/26/2023 My G sent 08/26 Encounter Details Date Type Department Care Team ([facility] st Contact Info) Description 08/26/2023 Telephone Family [address] [phone] Tami Upton MD [address] [place] [phone] Med Request (My G sent 08/26) Allergies No known active allergiesdocumented as of this encounter (statuses as of 08/28/2023) Medications Medication Sig Dispensed Refills Start Date End Date Status Paliperidone ER 6 MG Oral Tablet Extended Release 24 Hour (Invega)Indications:O ther insomnia Take 1 Tablet by mouth in the morning. 30 Tablet 06/26/2023 Active Folic Acid 1 MG Oral [...] and 1 Capsule before bedtime. 08/26/2023 Active documented as of this encounter (statuses as of 08/28/2023) Active Problems Problem Noted Date Diagnosed Date [...] as of this encounter (statuses as of 08/28/2023) Resolved Problems Problem Noted Date Diagnosed Date [...] as of this encounter (statuses as of 08/28/2023) Immunizations Name Administration Dates Next Due DTaP Dipth/Tet/Acell Pertussis (Infanrix), Peds 08/22/1993,02/19/1990,03/27/1989,1988,1988 HIB PRP-T, 4 Dose, PF, IM (Hiberix) 11/27/1989 Hepatitis B, 0-19 yrs 10/11/1998,03/21/1998,01/02 MMR - Measles/Mumps/Rubella Vaccine 08/22/1993,1 OPV - Polio Virus Vaccine (Oral) 994,02/19/1990,1988,1988 Pneumococcal Conjugate Vacci ne, 20-valent ([id number]) 01/31/2023 Seasonal Influenza, PF, 6 M & [...] Telephone Encounter - Maira Torres LPN - 08/28/2023 2:32 PM EDT Can Rx be sent to [facility] pharmacy in [place]. Please see in My G. * Telephone Encounter - Maira Torres LPN - 08/27/2023 10:45 AM EDT Paliperidone on back order at patient's pharmacy. Asking for another pharmacy option. * Telephone Encounter - Paola Cifuentes, MED ASSIST - 08/27/2023 8:32 AM EDT Sent My G. * Telephone Encounter - Tami Upton MD - 08/26/2023 9:23 PM EDT Abilify and paliperidone work the same way, so I would not recommend taking both. If he wants to make a change, I would recommend increasing his paliperidone dose. * Telephone Encounter - Titus Young LPN - 08/26/2023 11:13 AM EDT Pt requesting to restart abilify. Had some left over from an old prescription since he was never compliant with his medication. States since his most recent hospital stay he wants to be better at taking his medications as prescribed and this is one that he would like to restart. Asking if new script can be sent to pharmacy. documented in this encounter Plan of Treatment Upcoming Encounters Date Type Department Care Team (Latest Contact Info) Description 4 2:30 PM EDT Office Visit Podiatry [address] [place] [address] Severo Alvarado, ALEXANDR [address] [place] [address] 4 4:20 PM EDT Office Visit Family Practice [facility] [address] [place] [phone] Tami Upton MD [address] [place] [phone] 4 2:15 PM EDT Office Visit Interventional Pain Center, [facility] [address] [place], [place] [address] Gregory Lima MD [address] [place] [address] [place] [address] 4 9:30 AM EDT Hospital Encounter ENDO [facility], Endoscopy Room [facility] [address] [place] [address] Scott Morillo, DO [address] [place], [place] [address] 4 9:30 AM EDT - 4 10:15 AM EDT Surgery ENDO [facility], Endoscopy Room [facility] [address] [place], [place] [address] Scott Morillo, DO [address] [place], [place] [address] ESOPHAGOGASTRODUODENOSCOPY (EGD), FLEXIBLE, TRANSORAL, ENDOSCOPIC ULTRASOUND 4 1:40 PM EDT Telemedicine Hepatology, [facility] [address] [place], [place] [address] Katty Hernandes, DO [address] [place], [place] [address] Scheduled Orders Name Type Priority Associated Diagnoses Orde r Schedule COMPREHENSIVE METABOLIC PANEL Lab Routine Alcohol induced fatty liver Expected: 08/26/2023, Expires: 08/25/2024 PT INR Lab Routine Alcohol induced fatty liver Expected: 08/26/2023, Expires: 08/25/2024 Scheduled Procedures Name Priority Associated Diagnoses Date/Ti [...] induced fatty liver- Primary Alcoholic fatty liver Alcohol abuse Alcohol abuse, unspecified Hepatic fibrosis Cirrhosis of liver without mention of alcohol documented in this encounter Advance Directives * Full Code (Latest Code Status on File) Date Activated Date Inactivated Comments 03/29/2023 1:43 PM 04/02/2023 2:03 PM This order r eflects the patients wishes and were consensually agreed upon. Question Answer Comments Discussion of Advance Directives occurred with: Patient Care Teams Commercial Agent Relationship Specialty Start Date End Date Tami Upton MD [address] [place] [phone] PCP - General Family Medicine 06/19/23 documented as of this encounter
--- OUTSIDE RECORDS SUMMARY | 2023-10-15 03:08 | External Medical Summary | Summary of Care ---
Author Name Unknown Organization [facility] Address [address] [place] [address] Phone [phone] Care Team Providers Care Construction Controller Name Role Phone Tami Upton MD Primary Care Provi elena Reason for Referral * Medication Prior Authorization - Pending Review Specialty Diagnoses / Procedures Referred By Contluis t Referred To Contact Diagnoses Other insomnia Bipolar affective disorder, current episode mixed, current episode severity unspecified (HCC) Tami Upton MD [address] [place] [phone] Referral ID Status Reason Start Date Expiration Date V isits Requested Visits Authorized [id number] Pending Review 999 999 Reason for Visit * Reason Onset Date Comments Med Request 08/26/2023 My G sent 08/26 Encounter Details Date Type Department Care Team ([facility] Contact Info) Description 08/26/2023 Telephone Family Practice [address] [phone] Tami Upton MD [address] [place] [phone] Med Request (My G sent 08/26) [...] the morning. 30 Tablet 5 08/28/2023 Active Paliperidone ER 6 MG Oral Tablet Extended Release 24 Hour (Invega)Indication s:Other insomnia Take 1 Tablet by mouth in the morning. 30 Tablet 06/26/2023 08/28/2023 Discontinued documented as of this encounter (statuses [...] (Oral) 994,02/19/1990,1988,1988 Pneumococcal Conjugate Vacci ne, 20-valent ([id number]) 01/31/2023 Seasonal Influenza, PF, 6 M & [...] encounter Miscellaneous Notes * Addendum Note - Tami Upton MD - 08/28/2023 2:57 PM EDT Addended by: TAMI UPTON on: 08/28/2023 02:57 PM Modules accepted: Orders * Telephone Encounter - Tami Upton MD - 08/28/2023 2:57 PM EDT Paliperidone increased to 9 mg daily. * Telephone Encounter - Maira Torres LPN - 08/28/2023 2:32 PM EDT Can Rx be sent to [facility] pharmacy in [place]. Please see in My G. * Telephone Encounter - Maira Torres LPN - 08/27/2023 10:45 AM EDT Paliperidone on back order at patient's pharmacy. Asking for another pharmacy option. * Telephone Encounter - Paola Cifuentes MED ASSIST - 08/27/2023 8:32 AM EDT [...] 4 2:30 PM EDT Office Visit Podiatry [facility] [address] [facility] [address] [place] [address] Severo Alvarado, [facility] [address] [place] [address] 4 4:20 PM EDT Office Visit Family Practice [address] [phone] Tami Upton MD [address] [place] [phone] 4 2:15 PM EDT Office Visit Interventional Pain Center, [facility] [address] [place] [address] Gregory Lima MD [address] [place] [address] [place] [address] 4 9:30 AM EDT Hospital Encounter ENDO [facility], Endoscopy Room [facility] [address] [place] [phone] Scott Morillo DO [address] [place] [address] 4 9:30 AM EDT - 4 10:15 AM EDT Surgery ENDO [facility], Endoscopy Room [facility] [address] [place], [place] [phone] Scott Morillo, DO [address] [place], [place] [address] ESOPHAGOGASTRODUODENOSCOPY (EGD), FLEXIBLE, TRANSORAL, ENDOSCOPIC ULTRASOUND 4 1:40 PM EDT Telemedicine Hepatology, [facility] [address] [place] [address] Katty Hernandes, DO [address] [place], [place] [address] Scheduled Orders Name Type Priority Associated Diagnoses [...] induced fatty liver- Primary Alcoholic fatty liver Other insomnia Bipolar affective disorder, current episode [...] Advance Directives occurred with: Patient Care Teams Construction Controller Relationship Specialty Start Date End Date Tami Upton MD [address] [place] [address] [place] [phone] PCP - General Family Medicine 06/19/23 documented as of this encounter
--- OUTSIDE RECORDS SUMMARY | 2023-10-15 03:08 | External Medical Summary ---
Author Name Unknown Address Unknown Organization [facility] - [address] [place] [address] Laboratory Report Ordering Provider Test Date Status JOHNATHON STORM 09/11/2023 10:52:09 Final Observation Date Value Abnormality Reference (Units ) Status CEE SPECIMEN-LAV 09/11/2023 10:52:09 Freezing of extracted DNA, whole blood and/or serum. Final Performing Location [facility] - [address] [place] [address]
--- OUTSIDE RECORDS SUMMARY | 2023-10-15 03:08 | External Medical Summary | Summary of Care ---
Author Name Unknown Organization [facility] Address [address] [place] [address] Phone [phone] Care Team Providers Care Ship Pilot Name Role Phone Tami Upton MD Primary Care Provi elena Reason for Referral * Medication Prior Authorization - Pending Review Specialty Diagnoses / Procedures Referred By Contluis t Referred To Contact Diagnoses Other insomnia Bipolar affective disorder, current episode mixed, current episode severity unspecified (HCC) Tami Upton MD [address] [place] [phone] Referral ID Status Reason Start Date Expiration Date V isits Requested Visits Authorized [id number] Pending Review 999 999 Reason for Visit * Reason Onset Date Comments Med Request 08/26/2023 My G sent 08/26 Encounter Details Date Type Department Care Team ([facility] Contact Info) Description 08/26/2023 Telephone Family Practice [address] [phone] Tami Upton MD [address] [place] [phone] Med Request (My G sent 08/26) [...] 08/29/2023) Immunizations Name Administration Dates Next Due DTaP Dipth/Tet/Acell Pertussis (Infanrix), Peds 08/22/1993,02/19/1990,03/27/1989,1988,1988 HIB PRP-T, 4 Dose, PF, IM (Hiberix) 11/27/1989 Hepatitis B, 0-19 yrs 10/11/1998,03/21/1998,01/02 MMR - Measles/Mumps/Rubella Vaccine 08/22/1993,1 OPV - Polio Virus Vaccine (Oral) 994,02/19/1990,1988,1988 Pneumococcal Conjugate Vacci ne, 20-valent ([id number]) 01/31/2023 Seasonal Influenza, PF, 6 M & [...] PM EDT Can Rx be sent to [facility] pharmacy in [place]. Please see in My G. * Telephone Encounter - Maira Torres LPN - 08/27/2023 10:45 AM EDT Paliperidone on back order at patient's pharmacy. Asking for another pharmacy option. * Telephone Encounter - Paola Cifuetnes MED ASSIST - 08/27/2023 8:32 AM EDT [...] 4 2:30 PM EDT Office Visit Podiatry [facility] [address] [facility] [address] [place] [address] Severo Alvarado, [facility] [address] [place] [address] 4 4:20 PM EDT Office Visit Family Practice [address] [phone] Tami Upton MD [address] [place] [phone] 4 2:15 PM EDT Office Visit Interventional Pain Center, [facility] [address] [place] [address] Gregory Lima MD [address] [place] [address] [place] [address] 4 9:30 AM EDT Hospital Encounter ENDO [facility], Endoscopy Room [facility] [address] [place] [phone] Scott Morillo DO [address] [place] [address] 4 9:30 AM EDT - 4 10:15 AM EDT Surgery ENDO [facility], Endoscopy Room [facility] [address] [place], [place] [phone] Scott Morillo, DO [address] [place], [place] [address] ESOPHAGOGASTRODUODENOSCOPY (EGD), FLEXIBLE, TRANSORAL, ENDOSCOPIC ULTRASOUND 4 1:40 PM EDT Telemedicine Hepatology, [facility] [address] [place] [address] Katty Hernandes, DO [address] [place], [place] [address] Scheduled Orders Name Type Priority Associated Diagnoses [...] Advance Directives occurred with: Patient Care Teams Ship Pilot Relationship Specialty Start Date End Date Tami Upton MD [address] [place] [address] [place] [phone] PCP - General Family Medicine 06/19/23 documented as of this encounter
--- OUTSIDE RECORDS SUMMARY | 2023-10-15 03:09 | External Medical Summary | Summary of Care ---
Author Name Unknown Organization [facility] Address [address] [place] [address] Phone [phone] Care Team Providers Care High [employer] Mathematics Teacher Name Role Phone Tami Upton MD Primary Care Provi elena Reason for Visit * Reason Onset Date Comments Med Request 08/26/2023 My G sent 08/26 Encounter Details Date Type Department Care Team ([facility] st Contact Info) Description 08/26/2023 Telephone Family [address] [phone] Tami Upton MD [address] [place] [phone] Med Request (My G sent 08/26) Allergies No known active allergiesdocumented as of this encounter (statuses as of 08/27/2023) Medications Medication Sig Dispensed Refills Start Date [...] as of this encounter (statuses as of 08/27/2023) Active Problems Problem Noted Date Diagnosed Date [...] as of this encounter (statuses as of 08/27/2023) Resolved Problems Problem Noted Date Diagnosed Date [...] as of this encounter (statuses as of 08/27/2023) Immunizations Name Administration Dates Next Due DTaP Dipth/Tet/Acell Pertussis (Infanrix), Peds 08/22/1993,02/19/1990,03/27/1989,1988,1988 HIB PRP-T, 4 Dose, PF, IM (Hiberix) 11/27/1989 Hepatitis B, 0-19 yrs 10/11/1998,03/21/1998,01/02 MMR - Measles/Mumps/Rubella Vaccine 08/22/1993,1 OPV - Polio Virus Vaccine (Oral) 994,02/19/1990,1988,1988 Pneumococcal Conjugate Vacci ne, 20-valent ([id number]) 01/31/2023 Seasonal Influenza, PF, 6 M & [...] 4 2:30 PM EDT Office Visit Podiatry [address] [place] [phone] Severo Alvarado, [facility] [address] [place] [address] 4 4:20 PM EDT Office Visit Family Practice [address] [phone] Tami Upton MD [address] [place] [phone] 4 2:15 PM EDT Office Visit Interventional Pain Center, [facility] [address] [facility] [place] [address] Gregory Lima MD [address] [place] [address] [place] [phone] 4 9:45 AM EDT Hospital Encounter ENDO [facility], Endoscopy Room [facility] [address] [place] [address] Scott Morillo, DO [address] [place] [address] 4 9:45 AM EDT - 4 10:30 AM EDT Surgery ENDO [facility], Endoscopy Room [facility] [address] [place] [address] Scott Morillo, DO [address] [place] [address] ESOPHAGOGASTRODUODENOSCOPY (EGD), FLEXIBLE, TRANSORAL, ENDOSCOPIC ULTRASOUND 4 1:40 PM EDT Telemedicine Hepatology, [facility] [address] [place] [address] Katty Hernandes, DO [address] [place] [address] Scheduled Orders Name Type Priority Associated Diagnoses Orde r Schedule COMPREHENSIVE METABOLIC PANEL Lab Routine Alcohol induced fatty liver Expected: 08/26/2023, Expires: 08/25/2024 PT INR Lab Routine Alcohol induced fatty liver Expected: 08/26/2023, Expires: 08/25/2024 Scheduled Procedures Name Priority Associated Diagnoses Date/Ti me ESOPHAGOGASTRODUODENOSCOPY ( EGD), FLEXIBLE, TRANSORAL, ENDOSCOPIC ULTRASOUND Alcohol abuse Hepatic fibrosis 11/05/2023 9:45 AM EDT ESOPHAGOGASTRODUODENOSCOPY ( EGD), FLEXIBLE, TRANSORAL, DIAGNOSTIC Alcohol abuse Hepatic fibrosis 11/05/2023 9:45 AM EDT Health Maintenance Due Date Last [...] Advance Directives occurred with: Patient Care Teams High School Mathematics Teacher Relationship Specialty Start Date End Date Tami Upton MD [address] [place] [phone] PCP - General Family Medicine 06/19/23 documented as of this encounter
--- OUTSIDE RECORDS SUMMARY | 2023-10-15 03:09 | External Medical Summary | Summary of Care ---
Author Name Unknown Organization [facility] Address [address] [place] [address] Phone [phone] Care Team Providers Care Baggagemaster Name Role Phone Tami Upton MD Primary Care Provi elena Reason for Visit * Reason Onset Date Comments Hospital Follow-Up 08/14/2023 Encounter Details Date Type Department Care Team (Late st Contact Info) Description 08/14/2023 Telephone General Internal Medicine [facility] [address] [place] [address] Tami Upton MD [address] [place] [phone] Hospital Follow-Up Allergies No known active [...] needed. 4 Discontinued(Medi cation List Clean Up) Gabapentin 100 MG Oral Capsule (Neurontin)Indic ations:Compressi [...] (Oral) 994,02/19/1990,1988,1988 Pneumococcal Conjugate Vacci ne, 20-valent ([id number]) 01/31/2023 Seasonal Influenza, PF, 6 M & [...] for ETOH. Pt states he is seeing [facility] in [place], seeing a therapist and pursuing in rehab [...] available history he was recently admitted to [facility] with alcohol intoxication and felt to have [...] over the last 6days while inpt at [facility]. * Telephone Encounter - Sparkle Starr OSA [...] note were not included. Megan Henning MD You (11:10 AM) Next available and if he gets in sooner with a mid level thats fine * Telephone Encounter - Sparkle Starr OSA - 08/14/2023 4:[address] Henning, Please review and advise if this pt should be added soon? * Telephone Encounter - Efren Wright RN - 08/14/2023 2:17 PM EDT Patient discharged 08/14/23 to home from [facility] after treatment for acute hepatitis, GIB. Pt seen by GI at [facility], GI at [facility] contacted for possible transfer, declined transfer. Hematemesis improved, Maddreys score improved to 48.9, discharged with recommendation to follow up closely with Hepatology. Ple ase assist with a closer appointment if possible. Thank you documented in this encounter Plan of Treatment Upcoming Encounters Date Type Department Care Team (Latest Contact Info) Description 4 2:30 PM EDT Office Visit Podiatry [facility] [address] [facility] [address] [place] [phone] Severo Alvarado, ALEXANDR [address] [place] [address] 4 4:20 PM EDT Office Visit Family [facility] [address] [place] [address] Tami Upton MD [address] [place] [phone] 4 2:15 PM EDT Office Visit Interventional Pain Center, [facility] [address] [facility] [place] [id number] Gregory Lima MD [address] [place] [address] [place] [address] 4 9:45 AM EDT Hospital Encounter [facility], Endoscopy Room [facility] [address] [place] [phone] Scott Morillo, DO [address] [place], [place] [address] 4 9:45 AM EDT - 4 10:30 AM EDT Surgery ENDO [facility], Endoscopy Room [facility] [address] [place], [place] [address] Scott Morillo, DO [address] [place], [place] [address] ESOPHAGOGASTRODUODENOSCOPY (EGD), FLEXIBLE, TRANSORAL, ENDOSCOPIC ULTRASOUND 4 1:40 PM EDT Telemedicine Hepatology, [facility] [address] [place], [place] [address] Katty Hernandes, DO [address] [place], [place] [address] Scheduled Procedures Name Priority Associated Diagnoses Date/Ti me ESOPHAGOGASTRODUODENOSCOPY ( EGD), FLEXIBLE, TRANSORAL, ENDOSCOPIC ULTRASOUND Alcohol abuse Hepatic fibrosis 11/05/2023 9:45 AM EDT ESOPHAGOGASTRODUODENOSCOPY ( EGD), FLEXIBLE, TRANSORAL, DIAGNOSTIC Alcohol abuse Hepatic fibrosis 11/05/2023 9:45 AM EDT Health Maintenance Due Date Last Done Comments Depression Screening 08/05/2015 08/04/2014 COVID-19 Vaccine (24 season) 2022 Diabetes Screening 08/15/2026 2023, 0 [...] Advance Directives occurred with: Patient Care Teams Baggagemaster Relationship Specialty Start Date End Date Tami Upton MD [address] [place] [phone] PCP - General Family Medicine 06/19/23 documented as of this encounter
--- OUTSIDE RECORDS SUMMARY | 2023-10-15 03:09 | External Medical Summary | Summary of Care ---
Author Name Unknown Organization [facility] Address [address] [place] [address] Phone [phone] Care Team Providers Care Burner Operator Name Role Phone Tami Upton MD Primary Care Provi elena Reason for Visit * Reason Onset Date Comments Hospital Follow-Up 08/14/2023 Encounter Details Date Type Department Care Team (Late st Contact Info) Description 08/14/2023 Telephone General Internal Medicine [facility] [address] [place] [address] Tami Upton MD [address] [place] [phone] Hospital Follow-Up Allergies No known active allergiesdocumented as of this encounter (statuses as of 08/20/2023) Medications Medication Sig Dispensed Refills Start Date End Date Status Acetaminophen 500 MG Oral Tablet (Tylenol Extra Strength) Take 1 Tablet by mouth every 6 hours as needed. Active Paliperidone ER 6 MG Oral Tablet Extended Release 24 Hour (Invega)Indications: Other insomnia Take 1 Tablet by mouth in the morning. 30 Tablet 06/26/2023 Active Gabapentin 100 MG Oral Capsule [...] Tablet Chewable Take by mouth. Activ e documented as of this encounter (statuses as of 08/20/2023) Active Problems Problem Noted Date Diagnosed Date [...] as of this encounter (statuses as of 08/20/2023) Resolved Problems Problem Noted Date Diagnosed Date Resolved Date Alcohol withdrawal syndrome with complication 03/30/19 24 04/02/2023 Neutropenic fever 03/30/2023 04/02/2023 Acute alcoholic intoxication with complication 03/29/2023 03/30/2023 Leucopenia 03/29/2023 04/02/2023 Drug-induced liver injury 03/29/2023 Acute hyperactive alcohol withdrawal delirium 04/05/19 23 03/30/2023 documented as of this encounter (statuses as of 08/20/2023) Immunizations Name Administration Dates Next Due DTaP Dipth/Tet/Acell Pertussis (Infanrix), Peds 08/22/1993,02/19/1990,03/27/1989,1988,1988 HIB PRP-T, 4 dose (ActHib) 11/27/1989 Hepatitis B, 0-19 yrs 10/11/1998,03/21/1998,01/02 MMR - Measles/Mumps/Rubella Vaccine 08/22/1993,1 OPV - Polio Virus Vaccine (Oral) 994,02/19/1990,1988,1988 Pneumococcal Conjugate Vacci ne, 20-valent ([id number]) 01/31/2023 Seasonal Influenza, PF, 6 M & [...] earlier time * Telephone Encounter - Alize Art RN - 08/20/2023 10:56 AM EDT Called pt to f/u Pt is aware that liver bx for 08/28/23 is cancelled at this point. Pt asked what is to do in the meantime prior to Dec. Appointment with Dr Hernandes. Reinforced recommendation from Dr Morillo getting treatment for ETOH. Pt states he is seeing [facility] Addiction clinic in [place], seeing a therapist and pursuing in rehab facility. Sending to covering this week as pt had labs drawn [...] available history he was recently admitted to [facility] with alcohol intoxication and felt to have [...] bx He is concerned about f/u being October has he has liver bx scheduled 08/28/23 [...] over the last 6days while inpt at [facility]. * Telephone Encounter - Sparkle Starr OSA [...] note were not included. Megan Henning MD YouYe (11:10 AM) Next available and if he gets in sooner with a mid level thats fine * Telephone Encounter - Sparkle Starr OSA - 08/14/2023 4:[address] Henning, Please review and advise if this pt should be added soon? * Telephone Encounter - Efren Wright RN - 08/14/2023 2:17 PM EDT Patient discharged 08/14/23 to home from [facility] after treatment for acute hepatitis, GIB. Pt seen by GI at [facility], GI at [facility] contacted for possible transfer, declined transfer. Hematemesis improved, Maddreys score improved to 48.9, discharged with recommendation to follow up closely with Hepatology. Ple ase assist with a closer appointment if possible. Thank you documented in this encounter Plan of Treatment Upcoming Encounters Date Type Department Care Team (Latest Contact Info) Description 08/23/2023 1:40 PM EDT Office Visit [address] [phone] Tami Upton MD [address] [place] [phone] 08/28/2023 8:00 AM EDT Hospital Encounter ENDO [facility], Endoscopy Room [facility] [address] [place] [phone] Scott Morillo, DO [address] [place], [place] [address] 08/28/2023 8:00 AM EDT - 08/28/2023 8:45 AM EDT Surgery ENDO [facility], Endoscopy Room [facility] [address] [place], [place] [phone] Scott Morillo, DO [address] [place], [place] [address] ESOPHAGOGASTRODUODENOSCOPY (EGD), FLEXIBLE, TRANSORAL, DIAGNOSTIC 08/29/2023 12:00 PM EDT Office Visit [address] [phone] Tami Upton MD [address] [place] [phone] 12/24/2023 1:40 PM EDT Telemedicine Hepatology, [facility] [address] [place] [address] Katty Hernandes DO [address] [place] [address] Scheduled Procedures Name Priority Associated Diagnoses Date/Ti [...] Advance Directives occurred with: Patient Care Teams Burner Operator Relationship Specialty Start Date End Date Tami Upton MD [address] [place] [phone] PCP - General Family Medicine 06/19/23 documented as of this encounter
--- OUTSIDE RECORDS SUMMARY | 2023-10-15 03:09 | External Medical Summary | Summary of Care ---
Author Name Unknown Organization [facility] Address [address] [place] [address] Phone [phone] Care Team Providers Care Central Sterile Supply Technician Name Role Phone Tami Upton MD Primary Care Provi elena Reason for Visit * Reason Comments Outpatient Testing Encounter Details Date Type Department Care Team (Late st Contact Info) Description 2023 4:30 PM EDT Laboratory Laboratory, [facility] [address] [place] [phone] [facility] [address] [place] [address] Alcohol induced fatty liver; Insomnia, unspecified type; Restless legs syndrome (RLS); Disorder of iron metabolism, unspecified; Alcohol abuse; Hepatic fibrosis Allergies No known active allergiesdocumented as of this encounter (statuses as of 2023) Medications Medication Sig Dispensed Refills Start Date [...] as of this encounter (statuses as of 2023) Active Problems Problem Noted Date Diagnosed Date [...] as of this encounter (statuses as of 2023) Resolved Problems Problem Noted Date Diagnosed Date Resolved Date Alcohol withdrawal syndrome with complication 03/30/19 24 04/02/2023 Neutropenic fever 03/30/2023 04/02/2023 Acute alcoholic intoxication with complication 03/29/2023 03/30/2023 Leucopenia 03/29/2023 04/02/2023 Drug-induced liver injury 03/29/2023 Acute hyperactive alcohol withdrawal delirium 04/05/19 23 03/30/2023 documented as of this encounter (statuses as of 2023) Immunizations Name Administration Dates Next Due Pneumococcal [...] Description 08/23/2023 1:40 PM EDT Office Visit [address] [phone] Tami Upton MD [address] [place] [phone] 08/28/2023 8:00 AM EDT Hospital Encounter ENDO [facility], Endoscopy Room [facility] [address] [place] [phone] Scott Morillo DO [address] [place] [address] 08/28/2023 8:00 AM EDT - 08/28/2023 8:45 AM EDT Surgery ENDO [facility], Endoscopy Room [facility] [address] [place] [phone] Scott Morillo, DO [address] [place] [address] ESOPHAGOGASTRODUODENOSCOPY (EGD), FLEXIBLE, TRANSORAL, DIAGNOSTIC 08/29/2023 12:00 PM EDT Office Visit [facility] [address] [place] [phone] Tami Upton MD [address] [place] [phone] 12/24/2023 1:40 PM EDT Telemedicine Hepatology, [facility] [address] [place] [address] Katty Hernandes, [address] [place] [address] Pending Results Name Type Priority Associated Diagnoses Date /Time CBC WITH WBC DIFFERENTIAL Lab Routine Alcohol induced fatty liver 2023 4:32 PM EDT COMPREHENSIVE METABOLIC PANEL Lab Routine Alcohol induced fatty liver 2023 4:32 PM EDT PT INR Lab Routine Alcohol induced fatty liver 2023 4:32 PM EDT IRON SCREEN, INCLUDING TIBC Lab Routine Insomnia, unspecified type Restless legs syndrome (RLS) Disorder of iron metabolism, unspecified 2023 4:32 PM EDT FERRITIN Lab Routine Insomnia, unspecified type Restless legs syndrome (RLS) Disorder of iron metabolism, unspecified 2023 4:32 PM EDT ACTIN (SMOOTH MUSCLE) ANTIBODY (IGG) Lab Routine Alcohol abuse Hepatic fibrosis 2023 4:32 PM EDT [id number], QN Lab Routine Alcohol abuse Hepatic fibrosis 2023 4:32 PM EDT CERULOPLASMIN Lab Routine Alcohol abuse Hepatic fibrosis 2023 4:32 PM EDT FOLIC ACID Lab Routine Alcohol abuse Hepatic fibrosis 2023 4:32 PM EDT HEPATITIS A ANTIBODIES IGG AND IGM Lab Routine Alcohol abuse Hepatic fibrosis 2023 4:32 PM EDT HEPATITIS B SURFACE ANTIBODY Lab Routine Alcohol abuse Hepatic fibrosis 2023 4:32 PM EDT IGA Lab Routine Alcohol abuse Hepatic fibrosis 2023 4:32 PM EDT MITOCHONDRIAL ANTIBODY Lab Routine Alcohol abuse Hepatic fibrosis 2023 4:32 PM EDT SERUM PROTEIN ELECTROPHORESIS REFLEX PROFILE Lab Routine Alcohol abuse Hepatic fibrosis 2023 4:32 PM EDT TISSUE TRANSGLUTAMINASE IGA ANTIBODY Lab Routine Alcohol abuse Hepatic fibrosis 2023 4:32 PM EDT TSH Lab Routine Alcohol abuse Hepatic fibrosis 2023 4:32 PM EDT PHOSPHATIDYLETHANOL, BLOOD Lab Routine Alcohol abuse Hepatic fibrosis 2023 4:32 PM EDT CBC Lab Routine Alcohol induced fatty liver 2023 4:32 PM EDT DIFFERENTIAL, AUTOMATED Lab Routine Alcohol induced fatty liver 2023 4:32 PM EDT BILIRUBIN, DIRECT Lab Routine Alcohol abuse Hepatic fibrosis 2023 4:32 PM EDT Scheduled Procedures Name Priority Associated [...] Alcohol induced fatty liver Alcoholic fatty liver Insomnia, unspecified type Restless legs syndrome (RLS) Disorder of iron metabolism, unspecified Alcohol abuse Alcohol abuse, unspecified Hepatic fibrosis [...] Directives occurred with: Patient Care Teams Central Sterile Supply Technician Relationship Specialty Start Date End Date Tami Upton MD [address] [place] [phone] PCP - General Family Medicine 06/19/23 documented as of this encounter
--- OUTSIDE RECORDS SUMMARY | 2023-10-15 03:09 | External Medical Summary | Summary of Care ---
Author Name Unknown Organization [facility] Address [address] [place] [address] Phone [phone] Care Team Providers Care Sand Cleaning Machine Operator Name Role Phone Tami Upton MD Primary Care Provi elena Reason for Visit * Reason Onset Date Comments Med Request 08/26/2023 Encounter Details Date Type Department Care Team ([facility] Contact Info) Description 08/26/2023 Telephone Family Practice [address] [phone] Tami Upton MD [address] [place] [phone] Med Request Allergies No known active allergiesdocumented as of this encounter (statuses as of 08/26/2023) Medications Medication Sig Dispensed Refills Start Date [...] as of this encounter (statuses as of 08/26/2023) Active Problems Problem Noted Date Diagnosed Date [...] as of this encounter (statuses as of 08/26/2023) Resolved Problems Problem Noted Date Diagnosed Date [...] as of this encounter (statuses as of 08/26/2023) Immunizations Name Administration Dates Next Due DTaP Dipth/Tet/Acell Pertussis (Infanrix), Peds 08/22/1993,02/19/1990,03/27/1989,1988,1988 HIB PRP-T, 4 Dose, PF, IM (Hiberix) 11/27/1989 Hepatitis B, 0-19 yrs 10/11/1998,03/21/1998,01/02 MMR - Measles/Mumps/Rubella Vaccine 08/22/1993,1 OPV - Polio Virus Vaccine (Oral) 994,02/19/1990,1988,1988 Pneumococcal Conjugate Vacci ne, 20-valent ([id number]) 01/31/2023 Seasonal Influenza, PF, 6 M & [...] 4 2:30 PM EDT Office Visit Podiatry [facility] [address] [facility] [address] [place] [phone] Severo Alvarado, ALEXANDR [address] [place] [address] 4 4:20 PM EDT Office Visit Family Practice [facility] [address] [place] [address] Tami Upton MD [address] [place] [phone] 4 2:15 PM EDT Office Visit Interventional Pain Center, [facility] [address] [place] [address] Gregory Lima MD [address] [place] [address] [place] [address] 4 9:45 AM EDT Hospital Encounter ENDO [facility], Endoscopy Room [facility] [address] [place] [phone] Scott Morillo, DO [address] [place] [address] 4 9:45 AM EDT - 4 10:30 AM EDT Surgery ENDO [facility], Endoscopy Room [facility] [address] [place] [phone] Scott Morillo, DO [address] [place] [address] ESOPHAGOGASTRODUODENOSCOPY (EGD), FLEXIBLE, TRANSORAL, ENDOSCOPIC ULTRASOUND 4 1:40 PM EDT Telemedicine Hepatology, [facility] [address] [place] [address] [place] Katty JenkinsDO [address] [place] [address] Scheduled Orders Name Type Priority Associated Diagnoses [...] Advance Directives occurred with: Patient Care Teams Sand Cleaning Machine Operator Relationship Specialty Start Date End Date Tami Upton MD [address] [place] [phone] PCP - General Family Medicine 06/19/23 documented as of this encounter
--- OUTSIDE RECORDS SUMMARY | 2023-10-15 03:09 | External Medical Summary | Summary of Care ---
Author Name Unknown Organization [facility] Address [address] [place] [address] Phone [phone] Care Team Providers Care Skid Man Name Role Phone Tami Upton MD Primary Care Provi elena Reason for Visit * Reason Onset Date Comments Hospital Follow-Up 08/14/2023 Encounter Details Date Type Department Care Team (Late st Contact Info) Description 08/14/2023 Telephone General Internal Medicine [facility] [address] [place] [address] Tami Upton MD [address] [place] [phone] Hospital Follow-Up Allergies No known active [...] (Oral) 994,02/19/1990,1988,1988 Pneumococcal Conjugate Vacci ne, 20-valent ([id number]) 01/31/2023 Seasonal Influenza, PF, 6 M & [...] Miscellaneous Notes * Telephone Encounter - Alize Art, RN - 08/20/2023 10:56 AM EDT Called pt to f/u Pt is aware that liver bx for 08/28/23 is cancelled at this point. Pt asked what is to do in the meantime prior to Dec. Appointment with Dr Hernandes. Reinforced recommendation from Dr Morillo getting treatment for ETOH. Pt states he is seeing [facility] Addiction clinic in [place], seeing a therapist and pursuing in rehab [...] available history he was recently admitted to [facility] with alcohol intoxication and felt to have [...] over the last 6days while inpt at [facility]. * Telephone Encounter - Sparkle Starr [...] EDT Patient discharged 08/14/23 to home from [facility] after treatment for acute hepatitis, GIB. Pt seen by GI at [facility], GI at [facility] contacted for possible transfer, declined transfer. Hematemesis improved, Maddreys score improved to 48.9, discharged with recommendation to follow up closely with Hepatology. Ple ase assist with a closer appointment if possible. Thank you documented in this encounter Plan of Treatment Upcoming Encounters Date Type Department Care Team (Latest Contact Info) Description 08/23/2023 1:40 PM EDT Office Visit [address] [phone] Tami Upton MD [address] [place] [phone] 08/28/2023 8:00 AM EDT Hospital Encounter ENDO [facility], Endoscopy Room [facility] [address] [place] [phone] Soctt Morillo, DO [address] [place] [address] 08/28/2023 8:00 AM EDT - 08/28/2023 8:45 AM EDT Surgery ENDO [facility], Endoscopy Room [facility] [address] [place] [phone] Scott Morillo, DO [address] [place] [address] ESOPHAGOGASTRODUODENOSCOPY (EGD), FLEXIBLE, TRANSORAL, DIAGNOSTIC 08/29/2023 12:00 PM EDT Office Visit [address] [phone] Tami Upton MD [address] [place] [phone] 12/24/2023 1:40 PM EDT Telemedicine Hepatology, [facility] [address] [place] [address] Katty Hernandes, DO [address] [place] [address] Scheduled Procedures Name Priority Associated Diagnoses Date/Ti [...] Advance Directives occurred with: Patient Care Teams Skid Man Relationship Specialty Start Date End Date Tami Upton MD [address] [place] [phone] PCP - General Family Medicine 06/19/23 documented as of this encounter
--- OUTSIDE RECORDS SUMMARY | 2023-10-15 03:09 | External Medical Summary | Summary of Care ---
Author Name Unknown Organization [facility] Address [address] [place] [address] Phone [phone] Care Team Providers Care Lipcoat Sprayer Name Role Phone Tami Upton MD Primary Care Provi elena Reason for Visit * Reason Onset Date Comments Med Request 08/26/2023 Encounter Details Date Type Department Care Team ([facility] Contact Info) Description 08/26/2023 Telephone Family Practice [address] [phone] Tami Upton MD [address] [place] [phone] Med Request Allergies No known active [...] 08/26/2023) Immunizations Name Administration Dates Next Due Pneumococcal [...] encounter Miscellaneous Notes * Telephone Encounter - Titus Young LPN [...] 4 2:30 PM EDT Office Visit Podiatry [address] [place] [address] Severo Alvarado, Thomas [address] [place] [address] 4 4:20 PM EDT Office Visit Family Practice [facility] [address] [place] [phone] Tami Upton MD [address] [place] [phone] 4 9:45 AM EDT Hospital Encounter ENDO [facility], Endoscopy Room [facility] [address] [place] [phone] Morillo, Marten B, DO [address] [place], [place] [address] 4 9:45 AM EDT - 4 10:30 AM EDT Surgery ENDO [facility], Endoscopy Room [facility] [address] [place], [place] [address] Scott Morillo, DO [address] [place], [place] [address] ESOPHAGOGASTRODUODENOSCOPY (EGD), FLEXIBLE, TRANSORAL, ENDOSCOPIC ULTRASOUND 4 1:40 PM EDT Telemedicine Hepatology, [facility] [address] [place], [place] [address] Katty Hernandes, DO [address] [place] [address] Scheduled Orders Name Type Priority Associated Diagnoses [...] Advance Directives occurred with: Patient Care Teams Lipcoat Sprayer Relationship Specialty Start Date End Date Tami Upton MD [address] [place] [phone] PCP - General Family Medicine 06/19/23 documented as of this encounter
--- OUTSIDE RECORDS SUMMARY | 2023-10-15 03:09 | External Medical Summary | Summary of Care ---
Author Name Unknown Organization [facility] Address [address] [place] [address] Phone [phone] Care Team Providers Care Planting Machine Operator Name Role Phone Tami Upton MD Primary Care Provi elena Reason for Visit * Reason Onset Date Comments TRIAGE 08/23/2023 Encounter Details Date Type Department Care Team (Late st Contact Info) Description 08/23/2023 Telephone Access Center, [facility] [address] [facility] *DO NOT REMOVE THIS DEPARTMENT* [place] [address] Services, Scheduling [address] [place] [address] TRIAGE Allergies No known active allergiesdocumented as of [...] encounter Miscellaneous Notes * Telephone Encounter - Maryjane Brown OSA - 08/23/2023 6:01 PM EDT Please triage referral for compression fracture. documented in this encounter Plan of Treatment Upcoming Encounters Date Type Department Care Team (Latest Contact Info) Description 4 2:30 PM EDT Office Visit Podiatry [facility] [address] [facility] [address] [place] [phone] Severo Alvarado, [facility] [address] [place] [address] 4 4:20 PM EDT Office Visit Family [facility] [address] [place] [phone] Tami Upton MD [address] [place] [phone] 4 9:45 AM EDT Hospital Encounter ENDO [facility], Endoscopy Room [facility] [address] [place] [phone] Scott Morillo, DO [address] [place] [address] 4 9:45 AM EDT - 4 10:30 AM EDT Surgery ENDO [facility], Endoscopy Room [facility] [address] [place] [phone] Scott Morillo, DO [address] [place] [address] ESOPHAGOGASTRODUODENOSCOPY (EGD), FLEXIBLE, TRANSORAL, ENDOSCOPIC ULTRASOUND 4 1:40 PM EDT Telemedicine Hepatology, [facility] [address] [place] [address] Katty Hernandes, [address] [place] [address] Scheduled Procedures Name Priority Associated Diagnoses Date/Ti [...] Advance Directives occurred with: Patient Care Teams Planting Machine Operator Relationship Specialty Start Date End Date Tami Upton MD [address] [place] [phone] PCP - General Family Medicine 06/19/23 documented as of this encounter
--- OUTSIDE RECORDS SUMMARY | 2023-10-15 03:09 | External Medical Summary | Summary of Care ---
Author Name Unknown Organization [facility] Address [address] [place] [address] Phone [phone] Care Team Providers Care Home Manager Name Role Phone Tami Upton MD Primary Care Provi elena Reason for Referral * Evaluate & Treat - Unlimited Visits (Within 10 days (routine)) - Pending Review Specialty Diagnoses / Procedures Referred By Danielle luong Referred To Contact Podiatry Diagnoses Pain of right great toe Tami Upton MD [address] [place] [phone] Referral ID Status Reason Start Date Expiration Date Visits Requested Visits Authorized [id number] Pending Review Specialty Services Required 08/23/2023 [id number] Question Answer Referral Priority Within 10 days (routine) Where should this appointment be scheduled? [facility] Which condition are you referring this patient for? General Foot Pain * Evaluate & Treat - Unlimited Visits (Within 10 days (routine)) - Pending Review Specialty Diagnoses / Procedures Referred By Danielle t Referred To Contact Pain Management / Pain Medicine Diagnoses Compression fracture of L1 vertebra with routine healing, subsequent encounter Chronic midline thoracic back pain Tami Upton MD [address] [place] [address] Referral ID Status Reason Start Date Expiration Date Visits Requested Visits Authorized [id number] Pending Review Specialty Services Required 08/23/2023 [id number] Question Answer Referral Priority Within 10 days (routine) Where should this appointment be scheduled? [facility] Reason for referral? Interventional Pain Management - (Injection) What condition is the patient being referred for? Back Axial What is the preferred location to have this test performed? [facility] Comments Patient Name: Esdras Storey Date of : 1990 Department Phone Number: : [phone] (if unable to have a MRI) is recommended if any of the following apply: 1. Patient has neck or back pain with radiation to extremities. A previous MRI will be accepted if symptoms unchanged since prior MRI. 2. Spinal surgery since last MRI. If yes, order a MRI with and without contrast. 3. Hx or ongoing cancer treatment. Patient will need spine x-ray (Ap/Lat) for axial neck or back pain if not done previously. Fax No. [facility] [phone] or contact medical front desk specialist [phone] Fax No. [facility] [phone] or contact medical front desk specialist [phone] Fax No. [facility] [phone] or contact medical front desk specialist [phone] Reason for Visit * Reason Onset Date Comments Hospital Follow-Up Pt is present today for a hospital follow up.Pt states he would like to go over labs and discuss plan of care. Hospital Follow-Up 08/23/2023 Encounter Details Date Type Department Care Team ([facility] st Contact Info) Description 08/23/2023 1:40 PM EDT Office Visit [address] [phone] Tami Upton MD [address] [place] [phone] Hospital discharge follow-up*; Alcoholic cirrhosis of liver without ascites (HCC); Portal hypertensive gastropathy (HCC); 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); Other insomnia; Alcohol use disorder; Bipolar affective disorder, current episode mixed, current episode severity unspecified (HCC); Mixed obsessional thoughts and acts; Compression fracture of T12 vertebra, initial encounter (HCC); Compression fracture of L1 vertebra with routine healing, subsequent encounter; Chronic midline thoracic back pain; Pain of right great toe Allergies No known active allergiesdocumented as of this encounter (statuses as of 08/26/2023) Medications Medication Sig Dispensed Refills Start Date End Date Status Paliperidone ER 6 MG Oral Tablet Extended Release 24 Hour (Invega)Indicat ions:Other insomnia Take 1 Tablet by mouth in [...] Tablet by mouth in the morning. Active Acetaminophen 500 MG Oral Tablet (Tylenol Extra Strength) Take 1 Tablet by mouth every 6 hours as needed. 4 Discontinued(Medi cation List Clean Up) Gabapentin 100 MG Oral Capsule (Neurontin)Selma cations:Kevin val fracture of T12 vertebra, sequela,Kevin val fracture of L1 vertebra, sequela Take 1 Capsule by mouth in the morning and 1 Capsule at noon and 1 Capsule before bedtime. 90 Capsule 5 06/26/2023 4 Discontinued Gabapentin 300 MG Oral Capsule (Neurontin)Selma cations:Other insomnia,Compre ssion fracture of L1 vertebra with routine healing, subsequent encounter,Chron ic midline thoracic back pain Take 1 Capsule by mouth daily AND 2 Capsules at bedtime. 90 Capsule 5 08/23/2023 4 Discontinued(Refi ll) documented as of this encounter (statuses as [...] Sign Reading Time Taken Comments Blood Pressure 110/64 08/23/2023 1:46 PM EDT Pulse 86 08/23/2023 1:46 PM EDT Temperature 37.5 C (99.5 F) 08/23/2023 1:46 PM ED T Respiratory Rate 18 08/23/2023 1:46 PM EDT Oxygen Saturation 96% 08/23/2023 1:46 PM EDT Inhaled Oxygen Concentration - - Weight 100.7 kg (222 lb) 08/23/2023 1:46 PM EDT Height - - Body Mass Index 32.78 06/28/2023 12:15 PM EDT documented in this encounter Progress Notes * Tami Upton MD - 08/23/2023 1:40 PM EDT Images from the original note were not included. History of Present Illness Esdras Storey is a 33 year old male with alcoholic cirrhosis, portal hypertensive gastropathy,esophageal varices, alcohol use disorder, bipolar 1, insomnia, OCD, tobacco use that presents for Hospital Follow-Up (Pt is present today for a hospital follow up./Pt states he would like to go over labs and discuss plan of care. ) and Hospital Follow-Up Presents for hospital discharge follow up. Admitted at [facility] on 08/08/2023. Date of discharge 08/14/23. Discharge summary reviewed. Admitted at [facility] due to upper GI bleed and alcoholic hepatitis with elevated Maddrey's score. He underwent EGD which showed grade 1 varices with severe portal hypertensive gastropathy. He was placed on a protonix gtt, ceftriaxone, nadolol, and carafate with stabilization in his blood count and no further melena. For his alcoholic hepatitis - he was treated with prednisolone by [facility] hepatology recommendations with an elevated maddrey score. LFTS, INR, and bilirubin improved, and he was discharged home with instructions for close [facility] hepatology follow up. He recently relapsed back into drinking alcohol, 1 L vodka per day, prior to hospital admission. Reports this was due to insomnia. He was treated for withdrawal with PRN ativan and a gabapentin taper. He had an inpatient psych consult who recommended a trial of mirtazapine for insomnia. He will alsocontinue gabapentin 300 mg QHS. He was given information on rehab. Today he is doing ok. No further episodes of bleeding. He has remained abstinent from alcohol and says this hospitalization was a wake up call. He is sleeping about 3-4 hours at night total, and attributes this partly to the gabapentin 300 mg QHS. He is not interested in inpatient rehab. Thinks staying in a rehab would provoke his OCD. Feels like he wouldn't have control. He may consider the idea of intensive outpatient treatment - he will think about it. He does want to remain abstinent, but feels he often falls back into drinking due to uncontrolled insomnia symptoms. He is taking his invega 6 mg daily. Last saw psych in May. Plans to establish back with [facility] soon. He does not have follow up with hepatology with [facility] until this fall. Would like to see pain management regarding his chronic back pain. Physical Exam Vitals: 08/23/23 1346 Temp: 37.5 C (99.5 F) Pulse: 86 Resp: 18 SpO2: 96% BP: 110/64 Physical Exam Vitals and nursing note reviewed. Constitutional: General: He is not in acute distress. Appearance: Normal appearance. He is not toxic-appearing. HENT: Head: Normocephalic and atraumatic. Mouth/Throat: Mouth: Mucous membranes are moist. Pharynx: Oropharynx is clear. Cardiovascular: Rate and Rhythm: Normal rate and regular rhythm. Pulses: Normal pulses. Heart sounds: Normal heart sounds. No murmur heard. Pulmonary: Effort: Pulmonary effort is normal. No respiratory distress. Breath sounds: Normal breath sounds. Musculoskeletal: Right lower leg: No edema. Left lower leg: No edema. Skin: General: Skin is warm and dry. Capillary Refill: Capillary refill takes less than 2 seconds. Findings: No rash. Neurological: General: No focal deficit present. Mental Status: He is alert and oriented to person, place, and time. Mental status is at baseline. Psychiatric: Comments: Speech fast and pressured, but interruptable I have reviewed the following results: PT/INR, EGD, CMP, and CBC Assessment and Plan Hospital discharge follow-up - DISCH MED RECON CUR MED LIS Alcoholic cirrhosis of liver without ascites (HCC) Though he has not had a biopsy, all findings are highly suggestive of alcoholic cirrhosis with severe portal hypertensive gastropathy and esophageal varices. Recently also with alcoholic hepatitis. Will try to arrange sooner follow up with hepatology. Continue nadolol, carafate. Trend labs. Reviewed importance of complete alcohol abstinence, and potential prognosis if he does vs does not abstain. 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 Will trial an increase in his gabapentin to 600 mg QHS, as he found the 300 mg dose helpful. Could consider further dose increase in paliperidone. Would benefit from psych follow up. Alcohol use disorder Currently he is motivated to remain abstinent. Not interested in inpatient rehab, but would consider intensive outpatient. He is going to think about it. Plans on re-establishing with [facility] clinic. Bipolar affective disorder, current episode mixed, current episode severity unspecified ([facility]) Mixed obsessional thoughts and acts Could consider further increase in paliperidone if gabapentin increase is not helpful. Would benefit from psych follow up. Compression fracture of T12 vertebra, initial encounter ([facility]) Compression fracture of L1 vertebra with routine healing, subsequent encounter Increase gabapentin to 300 mg AM, 600 mg QHS. Referred to pain management, though I reviewed they will not perform a procedure until platelet count and INR are much improved. - PAIN MEDICINE REFERRAL OP Chronic midline thoracic back pain - PAIN MEDICINE REFERRAL OP Pain of right great toe - PODIATRY REFERRAL OP Wrap-Up Follow Up: Return in about 4 weeks (around 09/20/2023) for Return with Physician, Labs 2-5 Days Before Next Visit. | For: Return with Physician, Labs 2-5 Days Before Next Visit Time: I spent a total of 40-54 minutes (exact time 50 mins) on the date of service in preparation, delivery, and documentation of the care provided to Esdras Storey excluding any time spent in the performance of separately billed services. documented in this encounter Nursing Notes * Joselyn Valdes CCMA - 08/23/2023 1:47 PM EDT The patient has been properly identified by confirmation of name and date of . Chief Complaint Patient presents with Hospital Follow-Up Pt is present today for a hospital follow up. Pt states he would like to go over labs and discuss plan of care. Please advise on other due BPAs documented in this encounter Plan of Treatment Upcoming Encounters Date Type Department Care Team (Latest Contact Info) Description 4 2:30 PM EDT Office Visit Podiatry [facility] [address] [place] [address] Severo Alvarado, ALEXANDR [address] [place], [place] [id number] 4 4:20 PM EDT Office Visit Family [facility] [address] [place] [phone] Tami Upton MD [address] [place] [phone] 4 9:45 AM EDT Hospital Encounter ENDO [facility], Endoscopy Room [facility] [address] [place] [phone] Scott Morillo, [address] [place] [address] 4 9:45 AM EDT - 4 10:30 AM EDT Surgery ENDO [facility], Endoscopy Room [facility] [address] [place] [phone] Scott Morillo, [address] [place], [place] [address] ESOPHAGOGASTRODUODENOSCOPY (EGD), FLEXIBLE, TRANSORAL, ENDOSCOPIC ULTRASOUND 4 1:40 PM EDT Telemedicine Hepatology, [facility] [address] [place] [address] Katty Hernandes DO [address] [place] [address] Scheduled Orders Name Type Priority Associated Diagnoses Orde r Schedule CBC WITH WBC DIFFERENTIAL Lab Routine Alcoholic cirrhosis of liver without ascites (HCC) Expected: 09/22/2023 (Approximate), Expires: 08/22/2024 COMPREHENSIVE METABOLIC PANEL Lab Routine Alcoholic cirrhosis of liver without ascites (HCC) Expected: 09/22/2023 (Approximate), Expires: 08/22/2024 BILIRUBIN, DIRECT Lab Routine Alcoholic cirrhosis of liver without ascites (HCC) Expected: 09/22/2023 (Approximate), Expires: 08/22/2024 PT INR Lab Routine Alcoholic cirrhosis of liver without ascites (HCC) Expected: 09/22/2023 (Approximate), Expires: 08/22/2024 Scheduled Procedures Name Priority Associated Diagnoses Date/Ti wi ESOPHAGOGASTRODUODENOSCOPY ( EGD), FLEXIBLE, TRANSORAL, ENDOSCOPIC ULTRASOUND Alcohol abuse Hepatic fibrosis 11/05/2023 9:45 AM EDT ESOPHAGOGASTRODUODENOSCOPY ( EGD), FLEXIBLE, TRANSORAL, DIAGNOSTIC Alcohol abuse Hepatic fibrosis 11/05/2023 9:45 AM EDT Scheduled Referrals Name Type Priority Associated Diagnoses Orde r Schedule PAIN MEDICINE REFERRAL OP Referral Within 10 days (routine) Compression fracture of L1 vertebra with routine healing, subsequent encounter Chronic midline thoracic back pain Ordered: 08/23/2023 PODIATRY REFERRAL OP Referral Within 10 days (routine) Pain of right great toe Ordered: 08/23/2023 Health Maintenance Due Date Last Done Comments [...] Hospital discharge follow-up- Primary Other follow-up examination Alcoholic cirrhosis of liver without ascites (HCC) Alcoholic cirrhosis of liver Portal hypertensive gastropathy (HCC) Other specified disorder of stomach and duodenum 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) Cirrhosis of liver without mention of alcohol Other insomnia Alcohol use disorder Bipolar affective disorder, current episode mixed, current episode severity unspecified (HCC) Mixed obsessional thoughts and acts Compression fracture of T12 vertebra, initial encounter (HCC) Compression fracture of L1 vertebra with routine healing, subsequent encounter Chronic midline thoracic back pain Pain of right great toe Alcohol abuse Alcohol abuse, unspecified Hepatic fibrosis Cirrhosis of liver without mention of alcohol documented in this encounter Advance Directives * Full Code (Latest Code Status on File) Date Activated Date Inactivated Comments 03/29/2023 1:43 PM 04/02/2023 2:03 PM This order r eflects the patients wishes and were consensually agreed upon. Question Answer Comments Discussion of Advance Directives occurred with: Patient Care Teams Home Manager Relationship Specialty Start Date End Date Tami Upton MD [address] [place] [phone] PCP - General Family Medicine 06/19/23 documented as of this encounter"
--- OUTSIDE RECORDS SUMMARY | 2023-10-15 03:09 | External Medical Summary | Summary of Care ---
Author Name Unknown Organization [facility] Address [address] [place] [address] Phone [phone] Care Team Providers Care Small Battery Plate Assembler Name Role Phone Tami Upton MD Primary Care Provi elena Reason for Visit * Reason Onset Date Comments Med Request 08/26/2023 My G sent 08/26 Encounter Details Date Type Department Care Team ([facility] st Contact Info) Description 08/26/2023 Telephone Family [address] [phone] Tami Upton MD [address] [place] [phone] Med Request (My G sent 08/26) [...] (Oral) 994,02/19/1990,[birth year] Pneumococcal Conjugate Vacci ne, 20-valent ([id number]) 01/31/2023 Seasonal Influenza, PF, 6 M & [...] 4 2:30 PM EDT Office Visit Podiatry [address] [place] [phone] Severo Alvarado, DPThomas [address] [place] [address] 4 4:20 PM EDT Office Visit Family Practice [facility] [address] [place] [phone] Tami Upton MD [address] [place] [phone] 4 2:15 PM EDT Office Visit Interventional Pain Center, [facility] [address] [place] [address] Gregory Lima MD [address] [place] [address] [place] [address] 4 9:45 AM EDT Hospital Encounter ENDO [facility], Endoscopy Room [facility] [address] [phone] Scott Morillo DO [address] [place] [address] 4 9:45 AM EDT - 4 10:30 AM EDT Surgery ENDO [facility], Endoscopy Room [facility] [address] [place] [phone] Scott Morillo, DO [address] [place] [address] ESOPHAGOGASTRODUODENOSCOPY (EGD), FLEXIBLE, TRANSORAL, ENDOSCOPIC ULTRASOUND 4 1:40 PM EDT Telemedicine Hepatology, [facility] [address] [place] [address] Katty Hernandes, DO [address] [place] [address] Scheduled Orders Name Type Priority Associated Diagnoses [...] Advance Directives occurred with: Patient Care Teams Small Battery Plate Assembler Relationship Specialty Start Date End Date Tami Upton MD [address] [place] [phone] PCP - General Family Medicine 06/19/23 documented as of this encounter
--- OUTSIDE RECORDS SUMMARY | 2023-10-15 03:09 | External Medical Summary | Summary of Care ---
Author Name Unknown Organization [facility] Address [address] [place] [address] Phone [phone] Care Team Providers Care Dewaterer Operator Name Role Phone Tami Upton MD Primary Care Provi elena Reason for Visit * Reason Comments Edema Encounter Details Date Type Department Care Team ([facility] st Contact Info) Description 08/26/2023 11:00 AM EDT Office Visit [facility] [address] [place] [address] Katherine Schmitt PA-C [address] [place] [address] [phone] Bilateral leg edema*; Right foot pain; Alcoholic cirrhosis of liver without ascites (HCC); Chronic midline thoracic back pain Allergies No known active allergiesdocumented as of [...] and 1 Capsule before bedtime. 08/26/2023 Active Gabapentin 300 MG Oral Capsule (Neurontin)Indica tions:Other insomnia,Compress ion fracture of L1 vertebra with routine healing, subsequent encounter,Chronic midline thoracic back pain Take 1 Capsule by mouth daily AND 2 Capsules at bedtime. 90 Capsule 5 08/23/2023 08/26/2023 Discontinued (Refill) documented as of this encounter [...] 0.5 20.5 Started: 2003 Smokeless Tobacco: Never Tobacco Cessation:Ready to Q uit: No; Counseling Given: Yes Alcohol Use Standard Drinks/Week Comments Not Currently [...] [place] Time Taken Comments Blood Pressure 128/72 08/26/2023 11:04 AM EDT Pulse 78 08/26/2023 11:04 AM EDT Temperature 36.7 C (98.1 F) 08/26/2023 11:04 AM E DT Respiratory Rate 20 08/26/2023 11:04 AM EDT Oxygen Saturation 98% 08/26/2023 11:04 AM EDT Inhaled Oxygen Concentration - - Weight 99.8 kg (220 lb) 08/26/2023 11:04 AM EDT Height - - Body Mass Index 32.49 06/28/2023 12:15 PM EDT documented in this encounter Progress Notes * Katherine Schmitt PA-C - 08/26/2023 11:18 AM EDT Images from the original note were not included. History of Present Illness Esdras Storey is a 33 year old male that presents for Edema Complains of bilateral LE swelling. Seen last week for hospital discharge f/u. Recent admission to [facility] for etoh withdrawal. Last use of etoh 3 weeks ago. Drinks maybe 1 pint of water per day. Moderate use of salt. Leg swelling worsened over the weekend. Complains of pain at the base of his right big toe. Denies SOB or CP. No bowel or bladder complaints. Gabapentin dose increased 3 days ago. Significant PMH incl chronic back pain. Physical Exam Vitals: 08/26/23 1104 Temp: 36.7 C (98.1 F) Pulse: 78 Resp: 20 SpO2: 98% BP: 128/72 BP Readings from Last 3 Encounters: 08/26/23 128/72 08/23/23 110/64 06/26/23 120/72 Wt Readings from Last 3 Encounters: 08/26/23 99.8 kg (220 lb) 08/23/23 100.7 kg (222 lb) 06/26/23 98.5 kg (217 lb 3.2 oz) BMI Readings from Last 3 Encounters: 08/26/23 32.49 kg/m 08/23/23 32.78 kg/m 06/28/23 32.07 kg/m Physical Exam Vitals and nursing note reviewed. Constitutional: General: He is not in acute distress. Appearance: Normal appearance. HENT: Head: Normocephalic and atraumatic. Cardiovascular: Rate and Rhythm: Normal rate. Pulmonary: Effort: No respiratory distress. Musculoskeletal: Right lower leg: Edema (1+ pitting) present. Left lower leg: Edema (1+ pitting) present. Neurological: General: No focal deficit present. Mental Status: He is alert and oriented to person, place, and time. Gait: Gait normal. Psychiatric: Mood and Affect: Mood normal. I have reviewed the following results: None Assessment and Plan 1. Bilateral leg edema - BNP, NT-PRO; Future 2. Right foot pain - URIC ACID; Future 3. Alcoholic cirrhosis of liver without ascites (HCC) 4. Chronic midline thoracic back pain Update labs. Increase water intake to 64 oz per day. Wrap-Up Follow Up: Return for Return with Physician. | For: Return with Physician | Check-out note: Send tothe lab. Time: I spent a total of 20-29 minutes (exact time 20 mins) on the date of service in preparation, delivery, and documentation of the care provided to Esdras Storey excluding any time spent in the performance of separately billed services. The above was discussed and understanding was expressed. Katherine [place] [address] [phone] documented in this encounter Nursing Notes * Titus Young LPN - 08/26/2023 11:06 AM EDT The patient has been properly identified by confirmation of name and date of . Pt here for recheck. States he was seen three days ago and was advised to return if the swelling inhis legs got any worse. documented in this encounter Plan of Treatment Upcoming Encounters Date Type Department Care Team (Latest Contact Info) Description 4 8:00 AM EDT Hospital Encounter ENDO [facility], Endoscopy Room [facility] [address] [place] [phone] Scott Morillo, DO [address] [place] [address] 4 8:00 AM EDT - 4 8:45 AM EDT Surgery ENDO [facility], Endoscopy Room [facility] [address] [place] [phone] Scott Morillo, [address] [place] [address] ESOPHAGOGASTRODUODENOSCOPY (EGD), FLEXIBLE, TRANSORAL, DIAGNOSTIC 4 2:30 PM EDT Office Visit Podiatry [address] [place] [phone] Severo Alvarado, DPThomas [address] [place] [address] 4 4:20 PM EDT [address] [phone] Tami Upton MD [address] [facility], [place] [phone] 1:40 PM EDT Telemedicine Hepatology, [facility] [address] [place] [address] Katty Hernandes DO [address] [place] [address] Pending Results Name Type Priority Associated Diagnoses Date /Time URIC ACID Lab Routine Right foot pain 08/26/2023 11:41 AM EDT BNP, NT-PRO Lab Routine Bilateral leg edema 08/26/2023 11:41 AM EDT Scheduled Orders Name Type Priority Associated Diagnoses Orde r Schedule URIC ACID Lab Routine Right foot pain Expected: 08/26/2023 (Approximate), Expires: 08/25/2024 BNP, NT-PRO Lab Routine Bilateral leg edema Expected: 08/26/2023, Expires: 08/25/2024 Scheduled Procedures Name [...] as of this encounter Visit Diagnoses Diagnosis Bilateral leg edema- Primary Edema Right foot pain Pain in limb Alcoholic cirrhosis of liver without ascites (HCC) Alcoholic cirrhosis of liver Chronic midline thoracic back pain Alcohol abuse Alcohol abuse, unspecified Hepatic fibrosis Cirrhosis of liver without mention of alcohol documented in this encounter Advance Directives * Full Code (Latest Code Status on File) Date Activated Date Inactivated Comments 03/29/2023 1:43 PM 04/02/2023 2:03 PM This order r eflects the patients wishes and were consensually agreed upon. Question Answer Comments Discussion of Advance Directives occurred with: Patient Care Teams Dewaterer Operator Relationship Specialty Start Date End Date Tami Upton MD [address] [place] [phone] PCP - General Family Medicine 06/19/23 documented as of this encounter"
--- OUTSIDE RECORDS SUMMARY | 2023-10-15 03:09 | External Medical Summary ---
Author Name Unknown Address Unknown Organization K01:LABORATORY [facility] - [address] [place] [address] Laboratory Report Ordering Provider Test Date Status AMALIA DICKSON 08/26/2023 11:41:47 Final Exclude Heart Failure: <300 pg/mL
Diagnose Heart Failure:
Age <50 yr: >450 pg/mL
50-75 yr: >900 pg/mL
>75 yr: >1800 pg/mL
GFR is 30-59 mL/min: >1200 pg/mL or Age- adjusted values
GFR <30 mL/min: do not use, not reliable

Prognostic threshold: 1000 pg/mL Observation Date Value Abnormality Reference (Units ) Status BNP, Pro-hormone 08/26/2023 11:41:47 100 <30 0 (pg/mL) Final Performing Location LABORATORY [facility] - [address] [place] [address]
--- OUTSIDE RECORDS SUMMARY | 2023-10-15 03:09 | External Medical Summary | Summary of Care ---
Author Name Unknown Organization [facility] Address [address] [place] [address] Phone [phone] Care Team Providers Care Architect In Training Name Role Phone Tami Upton MD Primary Care Provi elena Reason for Visit * Reason Onset Date Comments Med Request 08/26/2023 My G sent 08/26 Encounter Details Date Type Department Care Team ([facility] st Contact Info) Description 08/26/2023 Telephone Family [address] [phone] Tami Upton MD [address] [place] [phone] Med Request (My G sent 08/26) [...] (Oral) 994,02/19/1990,1988,1988 Pneumococcal Conjugate Vacci ne, 20-valent ([id number]) 01/31/2023 Seasonal Influenza, PF, 6 M & [...] 4 2:30 PM EDT Office Visit Podiatry [address] [place] [phone] Severo Alvarado, DPThomas [address] [place] [address] 4 4:20 PM EDT Office Visit Family Practice [address] [phone] Tmai Upton MD [address] [place] [phone] 4 2:15 PM EDT Office Visit Interventional Pain Center, [facility] [address] [facility] [place] [address] Gregory Lima MD [address] [place] [address] [place] [phone] 4 9:45 AM EDT Hospital Encounter ENDO [facility], Endoscopy Room [facility] [address] [place] [address] Scott Morillo, DO [address] [place] [address] 4 9:45 AM EDT - 4 10:30 AM EDT Surgery ENDO [facility], Endoscopy Room [facility] [address] [place] [address] Scott Morillo, DO [address] [place] [address] ESOPHAGOGASTRODUODENOSCOPY (EGD), FLEXIBLE, TRANSORAL, ENDOSCOPIC ULTRASOUND 4 1:40 PM EDT Telemedicine Hepatology, [facility] [address] [place] [address] Katty Hernandes, DO [address] [place] [address] Scheduled Orders Name Type Priority Associated Diagnoses [...] Advance Directives occurred with: Patient Care Teams Architect In Training Relationship Specialty Start Date End Date Tami Upton MD [address] [place] [phone] PCP - General Family Medicine 06/19/23 documented as of this encounter
--- OUTSIDE RECORDS SUMMARY | 2023-10-15 03:09 | External Medical Summary | Summary of Care ---
Author Name Unknown Organization [facility] Address [address] [place] [address] Phone [phone] Care Team Providers Care Precision Assembler Bench Name Role Phone Tami Upton MD Primary Care Provi elena Reason for Visit * Reason Comments Outpatient Testing Encounter Details Date Type Department Care Team (Late st Contact Info) Description 08/26/2023 11:40 AM EDT Laboratory Laboratory Patient Service [address] [phone] Have, [facility] [address] [place] [address] [phone] Right foot pain; Bilateral leg edema Allergies No known active allergiesdocumented as of [...] 4 8:00 AM EDT Hospital Encounter ENDO [facility], Endoscopy Room [facility] [address] [place] [phone] Scott Morillo, [address] [place] [address] 4 8:00 AM EDT - 4 8:45 AM EDT Surgery ENDO [facility], Endoscopy Room [facility] [address] [place] [phone] Scott Morillo, [address] [place] [address] ESOPHAGOGASTRODUODENOSCOPY (EGD), FLEXIBLE, TRANSORAL, DIAGNOSTIC 4 2:30 PM EDT Office Visit Podiatry [address] [place] [address] Severo Alvarado, DPThomas [address] [place] [address] 4 4:20 PM EDT Office Visit Family Practice [facility] [address] [place] [address] Tami Upton MD [address] [place] [phone] 4 1:40 PM EDT Telemedicine Hepatology, [facility] [address] [place] [address] Katty Hernandes DO [address] [place] [phone] Pending Results Name Type Priority Associated Diagnoses Date /Time URIC ACID Lab Routine Right foot pain 08/26/2023 11:41 AM EDT BNP, NT-PRO Lab Routine Bilateral leg edema 08/26/2023 11:41 AM EDT Scheduled Procedures Name Priority Associated [...] as of this encounter Visit Diagnoses Diagnosis Right foot pain Pain in limb Bilateral leg edema Edema Alcohol abuse Alcohol abuse, unspecified Hepatic fibrosis Cirrhosis of liver without mention of alcohol documented in this encounter Advance Directives * Full Code (Latest Code Status on File) Date Activated Date Inactivated Comments 03/29/2023 1:43 PM 04/02/2023 2:03 PM This order r eflects the patients wishes and were consensually agreed upon. Question Answer Comments Discussion of Advance Directives occurred with: Patient Care Teams Precision Assembler Bench Relationship Specialty Start Date End Date Tami Upton MD [address] [place] [phone] PCP - General Family Medicine 06/19/23 documented as of this encounter
--- OUTSIDE RECORDS SUMMARY | 2023-10-15 03:09 | External Medical Summary ---
Author Name Unknown Address Unknown Organization K01:LABORATORY [facility] - [address] [place] [address] Laboratory Report Ordering Provider Test Date Status AMALIA DICKSON 08/26/2023 11:41:47 Final Observation Date Value Abnormality Reference (Units ) Status Uric Acid 08/26/2023 11:41:47 4.7 3.4-7.0 (m g/dL) Final Performing Location LABORATORY [facility] - [address] [place] [address]
--- OUTSIDE RECORDS SUMMARY | 2023-10-15 03:10 | External Medical Summary ---
Author Name Unknown Address Unknown Organization K01:[facility] [address] [facility] [address] [facility] [address] Laboratory Report Ordering Provider Test Date Status KARINA STILL 2023 16:32:26 Final Observation Date Value Abnormality Reference (Units ) Status Tissue transglutaminase IgA Ab [Presence] in Serum by Immunoassay 2023 16:32:26 Negative Negative Final Tissue transglutaminase IgA Ab [Units/volume] in Serum by Immunoassay 2023 16:32:26 1.1 <7 (U/mL) Final Performing Location [facility] [place] [facility] [place] [address]
--- OUTSIDE RECORDS SUMMARY | 2023-10-15 03:10 | External Medical Summary ---
Author Name Unknown Address Unknown Organization : Laboratory Report Ordering Provider Test Date Status KARINA STILL 2023 16:32:26 Final Observation Date Value Abnormality Reference (Units ) Status Smooth muscle IgG 2023 16:32:26 <20 <2 0 (U) Final Reference Range:
<20 U: Negative
>or=20 U: Positive
Antibodies recognizing actin are the main component
of smooth muscle antibodies associated with auto-
immune liver disease. Actin antibodies are found in
approximately 75% of patients with autoimmune
hepatitis (AIH) type 1, approximately 65% of patients
with autoimmune cholangitis, approximately 30% of
patients with primary biliary cirrhosis and
approximately 2% of healthy controls. High values are
closely correlated with AIH type 1.

Test Performed at:
[facility]
[address] [facility]
[place] [address]
José Miguel Page M.D., Ph.D.,Director of Laboratories Performing Location
--- OUTSIDE RECORDS SUMMARY | 2023-10-15 03:10 | External Medical Summary | Summary of Care ---
Author Name Unknown Organization [facility] Address [address] [place] [address] Phone [phone] Care Team Providers Care Ironworker Wire Fence Erector Name Role Phone Tami Upton MD Primary Care Provi elena Reason for Visit * Reason Onset Date Comments Hospital Follow-Up 08/14/2023 Encounter Details Date Type Department Care Team (Late st Contact Info) Description 08/14/2023 Telephone General Internal Medicine [facility] [address] [place] [address] Tami Upton MD [address] [place] [phone] Hospital Follow-Up Allergies No known active [...] 2023) Immunizations Name Administration Dates Next Due DTaP Dipth/Tet/Acell Pertussis (Infanrix), Peds 08/22/1993,02/19/1990,03/27/1989,1988,1988 HIB PRP-T, 4 dose (ActHib) 11/27/1989 Hepatitis B, 0-19 yrs 10/11/1998,03/21/1998,01/02 MMR - Measles/Mumps/Rubella Vaccine 08/22/1993,1 OPV - Polio Virus Vaccine (Oral) 994,02/19/1990,1988,1988 Pneumococcal Conjugate Vacci ne, 20-valent ([id number]) 01/31/2023 Seasonal Influenza, PF, 6 M & [...] encounter Miscellaneous Notes * Telephone Encounter - Tamara Horner OSA [...] recently admitted to [facility] with alcohol intoxication and felt to have [...] over the last 6days while inpt at [facility]. * Telephone Encounter - Sparkle Starr OSA [...] note were not included. Megan Henning MD (11:10 AM) Next available and if he gets in sooner with a mid level thats fine * Telephone Encounter - Sparkle Starr OSA - 08/14/2023 4:[address] Henning, Please review and advise if this pt should be added soon? * Telephone Encounter - Efren Wright RN - 08/14/2023 2:17 PM EDT Patient discharged 08/14/23 to home from [facility] after treatment for acute hepatitis, GIB. Pt seen by GI at [facility], GI at [facility] contacted for possible transfer, declined transfer. Hematemesis improved, Maddreys score improved to 48.9, discharged with recommendation to follow up closely with Hepatology. Pl ease assist with a closer appointment if possible. Thank you documented in this encounter Plan of Treatment Upcoming Encounters Date Type Department Care Team (Latest Contact Info) Description 08/23/2023 1:40 PM EDT Office Visit [address] [phone] Tami Upton MD [address] [place] [phone] 08/28/2023 8:00 AM EDT Hospital Encounter ENDO [facility], Endoscopy Room [facility] [address] [place] [phone] Scott Morillo DO [address] [place] [phone] 08/28/2023 8:00 AM EDT - 08/28/2023 8:45 AM EDT Surgery ENDO [facility], Endoscopy Room [facility] [address] [place] [phone] Scott Morillo DO [address] [place] [address] ESOPHAGOGASTRODUODENOSCOPY (EGD), FLEXIBLE, TRANSORAL, DIAGNOSTIC 08/29/2023 12:00 PM EDT Office Visit [facility] [address] [place] [address] Tami Upton MD [address] [place] [phone] 12/24/2023 1:40 PM EDT Telemedicine Hepatology, [facility] [address] [place] [address] Katty Hernandes DO [address] [place] [address] Scheduled Procedures Name Priority Associated Diagnoses Date/Ti [...] Advance Directives occurred with: Patient Care Teams Ironworker Wire Fence Erector Relationship Specialty Start Date End Date Tami Upton MD [address] [place] [phone] PCP - General Family Medicine 06/19/23 documented as of this encounter
--- OUTSIDE RECORDS SUMMARY | 2023-10-15 03:10 | External Medical Summary ---
Author Name Unknown Address Unknown Organization K01:LABORATORY [facility] - [address] [place] [address] Laboratory Report Ordering Provider Test Date Status KARINA STILL 2023 16:32:26 Final Observation Date Value Abnormality Reference (Units ) Status TSH 2023 16:32:26 2.18 0.27-4.20 (uIU/mL) Final Performing Location LAB[facility]ATORY [facility] - [address] [place] [address]
--- OUTSIDE RECORDS SUMMARY | 2023-10-15 03:10 | External Medical Summary ---
Author Name Unknown Address Unknown Organization : Laboratory Report Ordering Provider Test Date Status TESSYKARINA 2023 16:32:26 Final Observation Date Value Abnormality Reference (Units ) Status Alpha-1 antitrypsin 2023 16:32:26 163 83-199 (mg/dL) Final
Test Performed at:
[facility]
[address] [facility]
[place] [address]
José Miguel Page M.D., Ph.D.,Director of Laboratories Performing Location
--- OUTSIDE RECORDS SUMMARY | 2023-10-15 03:10 | External Medical Summary ---
Author Name Unknown Address Unknown Organization : Laboratory Report Ordering Provider Test Date Status KARINA STILL 2023 16:32:26 Final Observation Date Value Abnormality Reference (Units ) Status PETH 16:0/18:1 (POPETH) 2023 16:32:26 >400 Above high normal <20 (ng/mL) Final PETH 16:0/18:2 (PLPETH) 2023 16:32:26 >400 Above high normal <20 (ng/mL) Final PETH COMMENTS 2023 16:32:26 SEE BELOW Final See LDT Notes
Notes and Comments
This drug testing is for medical treatment only.
Analysis was performed as non-forensic testing and
these results should be used only by healthcare
providers to render diagnosis or treatment, or to
monitor progress of medical conditions.
LDT Notes:
These tests were developed and their analytical
performance characteristics have been determined
by [facility]. They have not been cleared
or approved by the FDA. These assays have been
validated pursuant to the CLIA regulations and are
used for clinical purposes.
Healthcare Providers needing Interpretation
assistance, please contact us at [phone]
( )M-F, 8am to 10pm EST

Test Performed at:
[facility]
[address] [facility]
[place] [address]
José Miguel Page M.D., Ph.D.,Director of Laboratories Performing Location
--- OUTSIDE RECORDS SUMMARY | 2023-10-15 03:10 | External Medical Summary ---
Author Name Unknown Address Unknown Organization K01:LABORATORY [facility] - [address] [place] [address] Laboratory Report Ordering Provider Test Date Status KARINA STILL 2023 16:32:26 Final Observation Date Value Abnormality Reference (Units ) Status Bilirubin, Direct 2023 16:32:26 1.7 Above high normal 0.0-0.3 (mg/dL) Final Performing Location LABORATORY [facility] - [address] [place] [address]
--- OUTSIDE RECORDS SUMMARY | 2023-10-15 03:10 | External Medical Summary | Summary of Care ---
Author Name Unknown Organization [facility] Address [address] [place] [address] Phone [phone] Care Team Providers Care Home Planning Consultant Salesperson Name Role Phone Tami Upton MD Primary Care Provi elena Reason for Visit * Reason Onset Date Comments Hospital Follow-Up 08/14/2023 Encounter Details Date Type Department Care Team (Late st Contact Info) Description 08/14/2023 Telephone General Internal Medicine [facility] [address] [place] [address] Tami Upton MD [address] [place] [phone] Hospital Follow-Up Allergies No known active [...] (Oral) 994,02/19/1990,1988,1988 Pneumococcal Conjugate Vacci ne, 20-valent ([id number]) 01/31/2023 Seasonal Influenza, PF, 6 M & [...] encounter Miscellaneous Notes * Telephone Encounter - Scott Morillo DO - 2023 4:17 PM EDT The EUS guided liver biopsy should be cancelled as his platelet count was under 70 during his most recent hospital stay. Based on the available history he was recently admitted to [facility] with alcohol intoxication and felt to have [...] over the last 6days while inpt at [facility]. * Telephone Encounter - Sparkle [...] note were not included. Megan Henning MD YouYeer (11:10 AM) Next available and if he gets in sooner with a mid level thats fine * Telephone Encounter - Sparkle Starr OSA - 08/14/2023 4:[address] Henning, Please review and advise if this pt should be added soon? * Telephone Encounter - Efren Wright RN - 08/14/2023 2:17 PM EDT Patient discharged 08/14/23 to home from [facility] after treatment for acute hepatitis, GIB. Pt seen by GI at [facility], GI at [facility] contacted for possible transfer, declined transfer. Hematemesis improved, Maddreys score improved to 48.9, discharged with recommendation to follow up closely with Hepatology. Ple ase assist with a closer appointment if possible. Thank you documented in this encounter Plan of Treatment Upcoming Encounters Date Type Department Care Team (Latest Contact Info) Description 08/23/2023 1:40 PM EDT Office Visit [address] [phone] Tami Upton MD [address] [place] [phone] 08/28/2023 8:00 AM EDT Hospital Encounter ENDO [facility], Endoscopy Room [facility] [address] [place] [phone] Scott Morillo, DO [address] [place], [place] [address] 08/28/2023 8:00 AM EDT - 08/28/2023 8:45 AM EDT Surgery ENDO [facility], Endoscopy Room [facility] [address] [place] [phone] Scott Morillo, DO [address] [place] [address] ESOPHAGOGASTRODUODENOSCOPY (EGD), FLEXIBLE, TRANSORAL, DIAGNOSTIC 08/29/2023 12:00 PM EDT Office Visit [facility] [address] [place] [phone] Tami Upton MD [address] [place] [phone] 12/24/2023 1:40 PM EDT Telemedicine Hepatology, [facility] [address] [place] [address] Katty Hernandes DO [address] [place] [address] Scheduled Procedures Name Priority Associated Diagnoses Date/Ti [...] Directives occurred with: Patient Care Teams Home Planning Consultant Salesperson Relationship Specialty Start Date End Date Tami Upton MD [address] [place] [phone] PCP - General Family Medicine 06/19/23 documented as of this encounter
--- OUTSIDE RECORDS SUMMARY | 2023-10-15 03:10 | External Medical Summary ---
Author Name Unknown Address Unknown Organization K01:LABORATORY [address] [place] [address] Laboratory Report Ordering Provider Test Date Status KARINA STILL 2023 16:32:26 Final Observation Date Value Abnormality Reference (Units) Status Hepatitis B virus surface Ab [Units/volume] in Serum or Plasma by Immunoassay 2023 16:32:26 >1000.0 (mIU/mL) Final Hepatitis B virus surface Ab [Presence] in Serum by Immunoassay 2023 16:32:26 Positive Final HEPATITIS B SURFACE ANTIBODY, INTERPRETATION 2023 16:32:26 Immune to Hepatitis B Virus Final POSITIVE: >=11.5 mIU/mL
INDETERMINATE: 8.5-<11.5 mIU/mL
NEGATIVE: <8.5 mIU/mL Performing Location LABORATORY [address] [place] [address]
--- OUTSIDE RECORDS SUMMARY | 2023-10-15 03:10 | External Medical Summary ---
Author Name Unknown Address Unknown Organization K01:LABORATORY [facility] - [address] [place] [address] Laboratory Report Ordering Provider Test Date Status KARINA STILL 2023 16:32:26 Final Observation Date Value Abnormality Reference (Units ) Status Folic Acid 2023 16:32:26 9.9 >4.5 (ng/ mL) Final Performing Location LAB[facility] - [address] [place] [address]
--- OUTSIDE RECORDS SUMMARY | 2023-10-15 03:10 | External Medical Summary | Summary of Care ---
Author Name Unknown Organization [facility] Address [address] [place] [address] Phone [phone] Care Team Providers Care Excavating Supervisor Name Role Phone Tami Upton MD Primary Care Provi elena Reason for Visit * Reason Onset Date Comments Hospital Follow-Up 08/14/2023 Encounter Details Date Type Department Care Team (Late st Contact Info) Description 08/14/2023 Telephone General Internal Medicine [facility] [address] [place] [address] Tami Upton MD [address] [place] [phone] Hospital Follow-Up Allergies No known active [...] (Oral) 994,02/19/1990,1988,1988 Pneumococcal Conjugate Vacci ne, 20-valent ([id number]) 01/31/2023 Seasonal Influenza, PF, 6 M & [...] Telephone Encounter - Alize Art, RN - 2023 12:32 PM EDT Called [...] over the last 6days while inpt at [facility]. * Telephone Encounter - Sparkle Starr OSA [...] note were not included. Megan Henning MD YouYesterday (11:10 AM) Next available and if he gets in sooner with a mid level thats fine * Telephone Encounter - Sparkle Starr OSA - 08/14/2023 4:[address] Henning, Please review and advise if this pt should be added soon? * Telephone Encounter - Efren Wright RN - 08/14/2023 2:17 PM EDT Patient discharged 08/14/23 to home from [facility] after treatment for acute hepatitis, GIB. Pt seen by GI at [facility], GI at [facility] contacted for possible transfer, declined transfer. Hematemesis improved, Maddreys score improved to 48.9, discharged with recommendation to follow up closely with Hepatology. Ple ase assist with a closer appointment if possible. Thank you documented in this encounter Plan of Treatment Upcoming Encounters Date Type Department Care Team (Latest Contact Info) Description 08/23/2023 1:40 PM EDT Office Visit [address] [phone] Tami Upton MD [address] [place] [phone] 08/28/2023 8:00 AM EDT Hospital Encounter ENDO [facility], Endoscopy Room [facility] [address] [place], [place] [phone] Scott Morillo, DO [address] [place] [address] 08/28/2023 8:00 AM EDT - 08/28/2023 8:45 AM EDT Surgery ENDO [facility], Endoscopy Room [facility] [address] [place] [phone] Scott Morillo, DO [address] [place] [address] ESOPHAGOGASTRODUODENOSCOPY (EGD), FLEXIBLE, TRANSORAL, DIAGNOSTIC 08/29/2023 12:00 PM EDT Office Visit [address] [phone] Tami Upton MD [address] [place] [phone] 12/24/2023 1:40 PM EDT Telemedicine Hepatology, [facility] [address] [place] [address] Katty Hernandes, DO [address] [place] [address] Scheduled Procedures Name Priority Associated Diagnoses Date/Ti [...] Advance Directives occurred with: Patient Care Teams Excavating Supervisor Relationship Specialty Start Date End Date Tami Upton MD [address] [place] [phone] PCP - General Family Medicine 06/19/23 documented as of this encounter
--- OUTSIDE RECORDS SUMMARY | 2023-10-15 03:10 | External Medical Summary ---
Author Name Unknown Address Unknown Organization K01:LABORATORY [facility] [place] [address] [place] [address] Laboratory Report Ordering Provider Test Date Status CORIE CLEMENT 2023 16:32:26 Final Observation Date Value Abnormality Reference (Units ) Status BUN 2023 16:32:26 13 6-20 (mg/dL) Final Creatinine 2023 16:32:26 0.7 0.6-1.2 (mg/dL) Final Glomerular filtration rate/1.73 sq M.predicted [Volume Rate/Area] in Serum, Plasma or Blood by Creatinine-based formula (CKD-EPI) 2023 16:32:26 >90 >=60 (mL/min) Final eGFR is calculated based on the CKD-EPI 2020 equation Sodium 2023 16:32:26 137 135-146 (m mol/L) Final Potassium 2023 16:32:26 3.9 3.5-5.1 (m mol/L) Final Cl 2023 16:32:26 102 98-107 (mm ol/L) Final CO2 2023 16:32:26 23 22-32 (mmo l/L) Final Anion gap 2023 16:32:26 12 7-15 (mmol /L) Final Glucose 2023 16:32:26 95 70-120 (mg /dL) Final Albumin 2023 16:32:26 4.0 3.8-5.0 (g /dL) Final AST (Aspartate aminotransferase) 2023 16:32:26 105 Above high normal 10-50 (U/L) Final Alk Phos 2023 16:32:26 135 Above high normal 35 -130 (U/L) Final Bilirubin, Total 2023 16:32:26 3.3 Above high no rmal <=1.2 (mg/dL) Final Calcium 2023 16:32:26 9.4 8.4-10.2 ( mg/dL) Final Protein 2023 16:32:26 6.9 6.0-8.3 (g /dL) Final ALT (Alanine aminotransferase) 2023 16:32:26 95 Above high normal 10-50 (U/L) Final Performing Location LABORATORY [facility] - [facility] [place] [address]
--- OUTSIDE RECORDS SUMMARY | 2023-10-15 03:11 | External Medical Summary | Summary of Care ---
Author Name Unknown Organization [facility] Address [address] [place] [address] Phone [phone] Care Team Providers Care Licensed Tax Consultant Name Role Phone Tami Upton MD Primary Care Provi elena Encounter Details Date Type Department Care Team ([facility] st Contact Info) Description 08/12/2023 Orders Only Family Practice [address] [phone] Tami Upton MD [address] [place] [phone] Allergies No known active allergiesdocumented as of this encounter (statuses as of 08/12/2023) Medications Medication Sig Dispensed Refills Start Date [...] as of this encounter (statuses as of 08/12/2023) Active Problems Problem Noted Date Diagnosed Date [...] as of this encounter (statuses as of 08/12/2023) Resolved Problems Problem Noted Date Diagnosed Date Resolved Date Alcohol withdrawal syndrome with complication 03/30/19 24 04/02/2023 Neutropenic fever 03/30/2023 04/02/2023 Acute alcoholic intoxication with complication 03/29/2023 03/30/2023 Leucopenia 03/29/2023 04/02/2023 Drug-induced liver injury 03/29/2023 Acute hyperactive alcohol withdrawal delirium 04/05/19 23 03/30/2023 documented as of this encounter (statuses as of 08/12/2023) Immunizations Name Administration Dates Next Due Pneumococcal [...] Care Team (Latest Contact Info) Description 08/12/2023 1:00 PM EDT Office Visit Hematology On[facility] [address] [place] [address] Rafael Metcalf PA-C [address] [place] [address] 08/15/2023 2:20 PM EDT Office Visit [address] [phone] Tami Upton MD [address] [place] [phone] 08/28/2023 8:00 AM EDT Hospital Encounter ENDO [facility], Endoscopy Room [facility] [address] [place] [phone] Scott Morillo DO [address] [place] [address] 08/28/2023 8:00 AM EDT - 08/28/2023 8:45 AM EDT Surgery ENDO [facility], Endoscopy Room [facility] [address] [place] [phone] Scott Morillo, DO [address] [facility] [place] [address] ESOPHAGOGASTRODUODENOSCOPY (EGD), FLEXIBLE, TRANSORAL, DIAGNOSTIC 08/29/2023 12:00 PM EDT Office Visit [address] [phone] Tami Upton MD [address] [place] [phone] 12/24/2023 1:40 PM EDT Telemedicine Hepatology, [facility] [address] [place] [address] Katty Hernandes, DO [facility] [place] [address] Scheduled Procedures Name Priority Associated Diagnoses Date/Ti [...] Procedure Name Priority Date/Time Associated Diagnosis Comments UPPER ENDOSCOPY, OUTSIDE PROCEDURE Routine 08/09/2023 documented in this encounter Results * UPPER ENDOSCOPY, OUTSIDE PROCEDURE (08/09/2023) 08/09/2023 Eren Bowling DO GASTRO UPPER OUTSIDE LAB (SEE SCANNED REPORT) documented in this encounter Advance Directives * Full Code (Latest Code Status on File) Date Activated Date Inactivated Comments 03/29/2023 1:43 PM 04/02/2023 2:03 PM This order r eflects the patients wishes and were consensually agreed upon. Question Answer Comments Discussion of Advance Directives occurred with: Patient Care Teams Licensed Tax Consultant Relationship Specialty Start Date End Date Tami Upton MD [address] [place] [phone] PCP - General Family Medicine 06/19/23 documented as of this encounter
--- OUTSIDE RECORDS SUMMARY | 2023-10-15 03:11 | External Medical Summary ---
Author Name Unknown Address Unknown Organization K01:[facility] [place] [address] [facility] [place] [address] Laboratory Report Ordering Provider Test Date Status TESSYKARINA 2023 16:32:26 Final Observation Date Value Abnormality Reference (Units ) Status Mitochondria M2 Ab [Presence] in Serum 2023 16:32:26 Negative Negative Final Mitochondria M2 Ab [Units/volume] in Serum by Immunoassay 2023 16:32:26 0.9 <4 (U/mL) Final Performing Location LABOR[facility] [place] [facility] [place] [address]
--- OUTSIDE RECORDS SUMMARY | 2023-10-15 03:11 | External Medical Summary | Summary of Care ---
Author Name Unknown Organization [facility] Address [address] [place] [address] Phone [phone] Care Team Providers Care High School Counselor Name Role Phone Tami Upton MD Primary Care Provi elena Reason for Visit * Reason Onset Date Comments Hospital Follow-Up 08/15/2023 KAILA Encounter Details Date Type Department Care Team ([facility] st Contact Info) Description 08/15/2023 Telephone Family Practice [address] [phone] Tami Upton MD [address] [place] [phone] Hospital Follow-Up ([facility]AILA) Allergies No known active allergiesdocumented as of this encounter (statuses as of 08/15/2023) Medications Medication Sig Dispensed Refills Start Date [...] as of this encounter (statuses as of 08/15/2023) Active Problems Problem Noted Date Diagnosed Date [...] as of this encounter (statuses as of 08/15/2023) Resolved Problems Problem Noted Date Diagnosed Date Resolved Date Alcohol withdrawal syndrome with complication 03/30/19 24 04/02/2023 Neutropenic fever 03/30/2023 04/02/2023 Acute alcoholic intoxication with complication 03/29/2023 03/30/2023 Leucopenia 03/29/2023 04/02/2023 Drug-induced liver injury 03/29/2023 Acute hyperactive alcohol withdrawal delirium 04/05/19 23 03/30/2023 documented as of this encounter (statuses as of 08/15/2023) Immunizations Name Administration Dates Next Due Pneumococcal [...] Telephone Encounter - Madelaine Garcia RN - 08/15/2023 2:33 PM EDT Transitions of Care Note Reason for Referral:Recent Admission Phone visit for follow up: KAILA Admitted to: [facility], Date: 08/08/2023 Discharged to: Home, Date: 08/14/2023 Diagnosis driving hospitalization: Acute hepatitis, Elevated liver enzymes Source/Contact: Patient SUBJECTIVE Consent: Verbal consent for review of hospital discharge: Yes REVIEW OF SYSTEMS Patient/Other Reports: Current patient/caregiver problems or concerns: Patient states that he is feeling well overall. States that he has not had any alcohol since discharge. Patient states that he slept well last night. CV: Denies problems Pulmonary: Denies problems Chills/Sweats/Fever:Denies chills/sweats Denies fever Appetite:patient states that he is gradually advancing his diet, states that his stomach is not quite back to normal but denies v Current diet: bland, advancing as tolerates Bowel: denies problems Bladder: denies problems Wound (If applicable): N/A Pain:Denies Sleep:patient typically has trouble sleeping but states he slept very well last night FUNCTIONAL STATUS: ADL'S: Needs Assistance With:N/A as pt is independent IADL'S: Needs Assistance With:N/A as pt is independent Cognitive and Mental Health: denies problems, alert and oriented x 3, and able to communicate, understand instructions, process information. MEDICATION RECONCILIATION Medications: Discharge med list reviewed with patient or caregiver Reviewed and updated all prescription and OTC medications in Epic New medication(s) filled since hospitalization- nadolol 40mg, sucralfate 100mg/ml supsension Reports all medications taken as prescribed. Denies side effects ASSESSMENT Medication Risk Assessment: Elevated LFTs Did patient fail outpatient treatment? No Discharge instructions available for review? Yes PLAN Symptom Monitoring Interventions:Member/caregiver education - signs and symptoms to contact PrimaryCare (DO NOT DELETE-Three asif symptoms patient is to report to PCP) 1. Fever/chills 2. N/V/D 3. Swelling of hands, feet, or abdomen Mink SlicerInteractive Video Technician of Care interventions/Action Plan: Medication reconciliation and 5 - 7 day follow-up with PCP in place - Date: 08/23/2023 Educated on role of KAILA completed with patient/caregiver. Educated patient/caregiver on patient right to have input on KAILA plan of care. Verification of Home Health/DME if indicated: NO N/A Identified Care Gaps: Yes Care Gaps closed this call: Appointment made or confirmed, Medication adherence, Medication monitoring, Medication optimization, Plan of care optimization, and Post discharge appointment Re-evaluation of Plan of Care and progress towards goals achievement: Patient education this visit: Verbal, see above Plan to follow-up as previously scheduled, instructed to call Primary Care Provider with change in symptoms or as needed before next follow-up, discharge needs met, verbalizes understanding and agrees with plan. Madelaine Garcia RN documented in this encounter Plan of Treatment Upcoming Encounters Date Type Department Care Team (Latest Contact Info) Description 08/23/2023 1:40 PM EDT Office Visit [address] [phone] Tami Upton MD [address] [place] [phone] 08/28/2023 8:00 AM EDT Hospital Encounter ENDO [facility], Endoscopy Room [facility] [address] [place] [phone] Scott Morillo, DO [address] [place] [address] 08/28/2023 8:00 AM EDT - 08/28/2023 8:45 AM EDT Surgery ENDO [facility], Endoscopy Room [facility] [address] [place] [phone] Scott Morillo, DO [address] [place] [address] ESOPHAGOGASTRODUODENOSCOPY (EGD), FLEXIBLE, TRANSORAL, DIAGNOSTIC 08/29/2023 12:00 PM EDT Office Visit [address] [phone] Tami Upton MD [address] [place] [phone] 12/24/2023 1:40 PM EDT Telemedicine Hepatology, [facility] [address] [place], [place] [address] Katty Hernandes, DO [address] [place], [place] [address] Scheduled Procedures Name Priority Associated Diagnoses Date/Ti [...] occurred with: Patient Care Teams High School Counselor Relationship Specialty Start Date End Date Tami Upton MD [address] [place] [phone] PCP - General Family Medicine 06/19/23 documented as of this encounter
--- OUTSIDE RECORDS SUMMARY | 2023-10-15 03:11 | External Medical Summary ---
Author Name Unknown Address Unknown Organization K01:[place] [place] [address] [place] [address] Laboratory Report Ordering Provider Test Date Status CORIE CLEMENT 2023 16:32:26 Final Observation Date Value Abnormality Reference (Units ) Status [place] cells [Presence] in Blood by Light microscopy 2023 16:32:26 Moderate Abnormal None Seen Final Schistocytes 2023 16:32:26 Few Abnormal None Seen Final Performing Location LAB[facility]ATORY [facility] - [address] [place] [address]
--- OUTSIDE RECORDS SUMMARY | 2023-10-15 03:11 | External Medical Summary ---
Author Name Unknown Address Unknown Organization K01:LABORATORY [facility] - [address] [place] [address] Laboratory Report Ordering Provider Test Date Status KARINA STILL 2023 16:32:26 Final Observation Date Value Abnormality Reference (Units ) Status IgA 2023 16:32:26 546 Above high normal 70 -400 (mg/dL) Final Performing Location LABORATORY [facility] - [address] [place] [address]
--- OUTSIDE RECORDS SUMMARY | 2023-10-15 03:11 | External Medical Summary ---
Author Name Unknown Address Unknown Organization : Laboratory Report Ordering Provider Test Date Status KARINA STILL 2023 16:32:26 Final Observation Date Value Abnormality Reference (Units ) Status Ceruloplasmin 2023 16:32:26 20 14-30 (mg/dL) Final
Test Performed at:
[facility]
[address] [facility] [place] [address]
José Miguel Page M.D., Ph.D.,Director of Laboratories Performing Location
--- OUTSIDE RECORDS SUMMARY | 2023-10-15 03:11 | External Medical Summary | Summary of Care ---
Author Name Unknown Organization [facility] Address [address] [place] [address] Phone [phone] Care Team Providers Care Button Decorating Machine Operator Name Role Phone Tami Upton MD Primary Care Provi elena Reason for Visit * Reason Onset Date Comments Hospital Follow-Up 08/14/2023 Encounter Details Date Type Department Care Team (Late st Contact Info) Description 08/14/2023 Telephone General Internal Medicine [facility] [address] [place] [address] Tami Upton MD [address] [place] [phone] Hospital Follow-Up Allergies No known active [...] (Oral) 994,02/19/1990,1988,1988 Pneumococcal Conjugate Vacci ne, 20-valent ([id number]) 01/31/2023 Seasonal Influenza, PF, 6 M & [...] EDT Patient discharged 08/14/23 to home from [facility] after treatment for acute hepatitis, GIB. Pt seen by GI at [facility], GI at [facility] contacted for possible transfer, declined transfer. Hematemesis improved, Maddreys score improved to 48.9, discharged with recommendation to follow up closely with Hepatology. Ple ase assist with a closer appointment if possible. Thank you documented in this encounter Plan of Treatment Upcoming Encounters Date Type Department Care Team (Latest Contact Info) Description 08/23/2023 1:40 PM EDT Office Visit [address] [phone] Tami Upton MD [address] [place] [phone] 08/28/2023 8:00 AM EDT Hospital Encounter ENDO [facility], Endoscopy Room [facility] [address] [place] [phone] Scott Morillo, DO [address] [place] [address] 08/28/2023 8:00 AM EDT - 08/28/2023 8:45 AM EDT Surgery ENDO [facility], Endoscopy Room [facility] [address] [place] [address] Scott Morillo, DO [address] [place] [address] ESOPHAGOGASTRODUODENOSCOPY (EGD), FLEXIBLE, TRANSORAL, DIAGNOSTIC 08/29/2023 12:00 PM EDT Office Visit [address] [phone] Tami Upton MD [address] [place] [phone] 12/24/2023 1:40 PM EDT Telemedicine Hepatology, [facility] [address] [place] [address] Katty Hernandes, [address] [place] [address] Scheduled Procedures Name Priority Associated Diagnoses Date/Ti [...] Advance Directives occurred with: Patient Care Teams Button Decorating Machine Operator Relationship Specialty Start Date End Date Tami Upton MD [address] [place] [phone] PCP - General Family Medicine 06/19/23 documented as of this encounter
--- OUTSIDE RECORDS SUMMARY | 2023-10-15 03:11 | External Medical Summary ---
Author Name Unknown Address Unknown Organization [id number]:[facility] [place] [facility] [address] [place] [address] Laboratory Report Ordering Provider Test Date Status CORIE CLEMENT 2023 16:32:26 Final Observation Date Value Abnormality Reference (Units ) Status WBC, Total 2023 16:32:26 8.48 4.00-10.80 (K/uL) Final RBC 2023 16:32:26 4.16 4.50-5.25 (M/uL) Final Hemoglobin 2023 16:32:26 13.8 Below low normal 14.0-16.8 (g/dL) Final HCT 2023 16:32:26 41.6 40.0-48.4 (%) Final MCV 2023 16:32:26 100.0 82.0-99.5 (fL) Final MCH 2023 16:32:26 33.2 27.0-34.0 (pg) Final MCHC 2023 16:32:26 33.2 32.0-36.0 (g/dL) Final RDW 2023 16:32:26 18.6 11.5-15.5 (%) Final Platelets 2023 16:32:26 117 Below low normal 140-400 (K/uL) Final MPV 2023 16:32:26 9.9 6.6-11.1 (fL) Final Nucleated erythrocytes/100 leukocytes [Ratio] in Blood by Automated count 2023 16:32:26 0 <=0 (/100 WBCs) Final Performing Location [facility] [place] [address] [address]
--- OUTSIDE RECORDS SUMMARY | 2023-10-15 03:11 | External Medical Summary ---
Author Name Unknown Address Unknown Organization [id number]:[facility] [place] [address] [place] [address] Laboratory Report Ordering Provider Test Date Status LISA BRANCH 2023 16:32:26 Final Observation Date Value Abnormality Reference (Units ) Status Ferritin 2023 16:32:26 277 30-400 (ng /mL) Final Performing Location [facility] [place] [address] [place] [address]
--- OUTSIDE RECORDS SUMMARY | 2023-10-15 03:11 | External Medical Summary ---
Author Name Unknown Address Unknown Organization [id number][place] [facility] [place] [facility] [address] [facility] [address] Laboratory Report Ordering Provider Test Date Status KARINA STILL 2023 16:32:26 Final Observation Date Value Abnormality Reference (Units) Status PARAPROTEIN NORMAL/ABNORMAL 2023 16:32:26 Normal Normal Final Protein 2023 16:32:26 6.9 6.0-8.3 (g/dL) Final Albumin/Protein.total [Pure mass fraction] in Serum or Plasma by Electrophoresis 2023 16:32:26 3.39 3.30-4.40 (g/dL) Final Alpha 1 globulin/Protein.tota l [Pure mass fraction] in Serum or Plasma by Electrophoresis 2023 16:32:26 0.27 0.10-0.30 (g/dL) Final Alpha 2 globulin/Protein.tota l [Pure mass fraction] in Serum or Plasma by Electrophoresis 2023 16:32:26 0.71 0.60-1.00 (g/dL) Final Beta globulin/Protein.tota l [Pure mass fraction] in Serum or Plasma by Electrophoresis 2023 16:32:26 0.96 0.80-1.30 (g/dL) Final Gamma globulin/Protein.tota l [Pure mass fraction] in Serum or Plasma by Electrophoresis 2023 16:32:26 1.57 0.70-1.70 (g/dL) Final Protein Fractions [Interpretation] in Serum or Plasma by Electrophoresis Narrative 2023 16:32:26 Normal serum protein electrophoretic pattern. Final Performing Location [facility] [place] [address] [facility] [address]
--- OUTSIDE RECORDS SUMMARY | 2023-10-15 03:11 | External Medical Summary ---
Author Name Unknown Address Unknown Organization [id number]:LABORATORY [facility] [place] - [address] [place] [address] Laboratory Report Ordering Provider Test Date Status CORIE CLEMENT 2023 16:32:26 Final Observation Date Value Abnormality Reference (Units ) Status SYNC LEUKOCYTES IN BLOOD BY AUTOMATED COUNT 2023 16:32:26 8.48 4.00-10.80 (K/uL) Final Segs 2023 16:32:26 27.8 Below low normal 40.0-75.0 (%) Final Lymphs % 2023 16:32:26 52.9 Above high normal 18.0-42.0 (%) Final Monos 2023 16:32:26 14.4 Above high normal 1.0-11.0 (%) Final Eosinophils 2023 16:32:26 3.7 0.0-6.0 (%) Final Basos 2023 16:32:26 0.5 0.0-2.0 (%) Final Immature Granulocyte, Percent 2023 16:32:26 0.7 0.0-2.0 (%) Final Absolute Segs 2023 16:32:26 2.36 1.80-7.70 (K/uL) Final Lymphs, absolute 2023 16:32:26 4.49 1.00-4.80 (K/ul) Final Monos, Abs 2023 16:32:26 1.22 Above high normal 0.00-1.10 (K/uL) Final Eos, Abs 2023 16:32:26 0.31 0.00-0.70 (K/uL) Final Basos, Abs 2023 16:32:26 0.04 0.00-0.20 (K/uL) Final Immature Granulocytes, Number 2023 16:32:26 0.06 0.00-0.20 (K/uL) Final Performing Location LABORATORY [facility] [place] - [address] [facility] [address]
[2023-10-15 06:38] LABS: Basophils # (auto) 0.03 K/uL (0.00-0.20); Basophils % (auto) 0.5 %; Eosinophils # (auto) 0.12 K/uL (0.00-0.50); Eosinophils % (auto) 2.1 %; Hematocrit (blood only) 34.8 % (42.0-52.0); Hemoglobin 12.1 g/dl (14.0-18.0); Immature Granulocytes # (auto) 0.02 K/uL (0.01-0.20); Immature Granulocytes % (auto) 0.3 %; Lymphocytes # (auto) 2.78 K/uL (1.20-3.40); Lymphocytes % (auto) 48.4 %; Mean Corpuscular Hemoglobin 32.5 pg (25.0-34.0); Mean Corpuscular Hgb Conc 34.8 g/dL (32.0-36.0); Mean Corpuscular Volume 93.5 fL (80.0-100.0); Mean Platelet Volume 9.7 fL (9.4-12.4); Monocytes # (auto) 0.85 K/uL (0.11-0.59); Monocytes % (auto) 14.8 %; Neutrophils # (auto) 1.94 K/uL (1.40-6.50); Neutrophils % (auto) 33.9 %; Platelet Count 92 K/uL (130-400); RDW Coefficient of Variation 15.7 % (11.5-14.5); RDW Standard Deviation 53.5 fL (36.4-46.3); Red Blood Count 3.72 M/uL (4.70-6.10); White Blood Count 5.74 K/ul (4.8-10.8)
[2023-10-15 06:53] LABS: Alanine Aminotransferase 43 U/L (7-52); Albumin Globulin Ratio 1.2 (0.9-2); Albumin Level 3.4 gm/dl (3.4-5.0); Alkaline Phosphatase 64 U/L (34-104); Anion Gap 9 (3-11); Aspartate Aminotransferase 80 U/L (13-39); BUN Creatinine Ratio 20.7 (10-20); Bilirubin Direct 1.1 mg/dl (0-0.2); Bilirubin,Total 3.6 mg/dl (0.2-1.0); Blood Urea Nitrogen 12 mg/dl (6-23); Calcium 8.5 mg/dl (8.6-10.3); Carbon Dioxide 24 mmol/L (21-32); Chloride 105 mmol/L (98-107); Creatinine Clr Calc Pharmacy 203.5 ml/min; Est GFR (African American) > 150.0 ml/min; Est GFR (Non-African American) 132.1 ml/min; Globulin 2.9 gm/dl (2.5-4.0); Glucose 111 mg/dl (70-99(Fasting)); Magnesium 1.6 mg/dl (1.7-2.4); Potassium 4.1 mmol/L (3.5-5.1); Sodium 138 mmol/L (136-145); Total Protein 6.3 gm/dl (6.0-8.3)
[2023-10-15 07:09] LABS: INR 1.5 (0.9-1.1); Prothrombin Time 16.1 Seconds (9.0-12.0)
--- NOTE | 2023-10-15 08:02 | Hospitalist Progress Note ---
Date of Service October 15, 2023 Assessment & Plan (1) Alcohol withdrawal syndrome: (2) Alcohol abuse: (3) GIB (gastrointestinal bleeding): Plan: Alcohol withdrawal and coffee-ground emesis since this morning Plan 33-year-old male with history of alcoholism, liver cirrhosis with portal hypertension, esophageal varices, coagulopathy, chronic anemia, bipolar disorder presenting with alcohol withdrawal and accompanying emesis starting this morning. Alcohol withdrawal Alcohol abuse Presents to the ER for detox Drinks 1 bottle of vodka daily, last drink night before admission Alcohol withdrawal protocol including Librium taper, IV thiamine and folic acid, IV fluids Patient prefers to do outpatient alcohol rehab Episode of coffee-ground emesis, bright red blood vomiting possible Esophagitis, Roz Barney Tear, Bleeding Esophageal Varices History of esophageal varices, coagulopathy, liver cirrhosis Hemoglobin 15 which is actually improved compared to last admission, 12 INR 1.3, platelet count 169 Protonix IV, ceftriaxone IV, octreotide IV IV fluids Continue with usual nadolol 40 mg daily GI consulted -s/p on 10/14, noting congestive gastropathy and eroded mucosa in the esophagus QT prolongation QT corrected 525 Monitor and replace electrolytes Avoid QT prolonging agents serial EKGs Chronic back pain On gabapentin 600 mg at bedtime, 300 mg in the morning Holding while on Librium protocol Bipolar disorder Hold paliperidone until QTc C normalizes Mood stable DVT prophylaxis SCDs for now in light of GI bleed Full code Disposition Lives at home Prefers outpatient alcohol rehab Admission and Anticipated Discharge Date Admission Date: October 14, 2023 Subjective Pt was seen in the AM before his procedure. Noted some abd pain, nausea but no vomiting. Overall noting improved symptoms. Review of Systems Review of Systems: All systems reviewed & are unremarkable except as noted in Subjective Physical Exam Physical Exam: General: Alert, oriented. No acute distress Skin: No noted rashes or bruises Psych: Appropriate mood and affect Neuro: No gross deficits HEENT: NC/AT CV: RRR Resp: Breath sounds clear bilaterally, no increased effort of breathing. Abdomen: Soft, tender diffusely Extremities: No edema in lower extremities bilaterally. Results & Data Results & Data Vital Signs (Past 12 Hours) Vital Signs Temp Pulse Pulse Resp BP Pulse Ox Pulse Ox 10/15/23 07:22 36.7 C 78 17 106/52 L 96 10/15/23 04:08 36.7 C 77 18 109/52 L 97 10/14/23 23:47 100 H 10/14/23 23:11 36.9 C 68 18 112/61 95 10/14/23 21:31 36.9 C 58 L 16 180/77 H 98 10/14/23 21:31 98 10/14/23 21:31 36.9 C 104 H 16 147/91 H 97 10/14/23 20:51 100 H 22 95 10/14/23 20:18 97 H 22 148/70 H 97 O2 Del Method O2 Del Method 10/15/23 07:22 Room Air 10/15/23 04:08 Room Air 10/14/23 23:47 10/14/23 23:11 Room Air 10/14/23 21:31 Room Air 10/14/23 21:31 Room Air 10/14/23 21:31 Room Air 10/14/23 20:51 Room Air 10/14/23 20:18 Room Air (1) Alcohol withdrawal syndrome Complication of substance-induced condition: with unspecified complication Qualified Code(s): F10.939 - Alcohol use, unspecified with withdrawal, unspecified
[2023-10-15] MEDS: THIAMINE HCL 100 MG in SYRINGE 9 ML IV SCH (08:59)
[2023-10-15] MEDS: nadoloL 40 MG TAB PO SCH (08:59)
--- NOTE | 2023-10-15 09:14 | Gastrointestinal Consultation ---
Date of Consultation October 15, 2023 Assessment & Plan (1) Alcohol abuse: (2) GIB (gastrointestinal bleeding): 33 year old male with history of hyperlipidemia, lung nodules, ETOH abuse, compression fracture L1 lumbar vertebrae and T12 vertebrae, obsessive-compulsive disorder, medical marijuana use, cirrhosis, MELD 16, last ETOH use 10/13/23 presenting with coffee ground emesis and hematemesis. He is hemodynamically stable, although soft BP 106/52 , HGB 12.1, w/o BUN elevation at 12, INR 1.5, PLT 92. Given his bleeding has resolved, suspected he had bleeding related to esophagitis, portal htn gastropathy or MWT. However, given his ongoing ETOH abuse and history of varices, will proceed with EGD evaluation. NPO Continue IV PPI Continue IV octreotide Continue SBP prophylaxis Complete ETOH cessation was discussed moving forward ETOH withdrawal protocol Trend H&H Monitor and document GI output Transfuse PRN per primary team MELD labs every 6 months ABD imaging w/ AFP due in February EGD every 1-2 years No NSAIDs Avoid hepatotoxin Low NA diet, less than 2G daily Less than 2G acetaminophen containing products daily We appreciate assistance in the management of any serological abnormality and corrections to include: hemoglobin >7, INR <2, platelets >50,000, potassium levels >3.5 but <5.3, and sodium levels within 5 points of the reference range prior to endoscopic evaluation. I spent a total of 65 minutes on the date of service in review of patient's record, and previously obtained information in person and appropriate medical visit, discussion and education of plan, with patient and/or caregiver, placing orders for tests/referral/procedures as medically necessary and documentation of pertinent clinical information in patient's medical records for their visit today. Thank you for allowing us to participate in the care of this patient. Please call with any acute changes, questions or concerns. Please see addendum below with additional recommendation from my supervising physician. Supervising Physician Co-Signing Physician Notes I saw and examined this patient with our nurse practitioner and agree with her assessment and plan. Abdomen soft nontender no masses. No acute distress chest clear to auscultation cardiac exam physiologic. History of Present Illness Reason for Consultation: GI bleed Requesting Physician: Filemon Attending Physician: Nan Geller MD History of Present Illness 33 year old male with history of hyperlipidemia, lung nodules, ETOH abuse, compression fracture L1 lumbar vertebrae and T12 vertebrae, obsessive-compulsive disorder, medical marijuana use, cirrhosis and others below admitted through the ED with ETOH withdrawal and reports of coffe ground emesis/hematemesis. GI was asked to evaluate. Pt was seen and evaluated, chart reviewed. He endorses ongoing daily ETOH use, last use was about 48 hours ago now. Suggests he developed pain, nausea and bilious emesis as he went into ETOH withdrawal about 24 hour ago. Emesis eventually became coffee ground appearing and then reports bright red blood as well. Suggests last episode of emesis was yesterday. Denies any black or bloody stools. He is hemodynamically stable, although soft BP 106/52 , HGB 12.1, PLT 92 w/o BUN elevation at 12, INR 1.5 Diagnosis: ETOH induced cirrhosis, last ETOH use on 10/13/23 Decompensations Varices: grade 1, 08/2023 on nadolol 40 mg once daily Ascites: none HE: none Screenings: MELD: 16 Maddrey: 22 HCC: due February 2024 Varices: 2025 Immunizations: status unknown EGD 2023: - Grade I esophageal varices. - Small hiatal hernia. - Portal hypertensive gastropathy. Biopsied. - Normal examined duodenum. Allergies Allergy/AdvReac Type Severity Reaction Status Date / Time No Known Allergies Allergy Verified 10/15/23 12:30 Home Medications Medication Instructions Recorded Confirmed Type celecoxib 200 mg capsule 200 mg PO QAM 10/14/23 10/14/23 History folic acid 1 mg tablet 1 mg PO QAM 10/14/23 10/14/23 History furosemide 20 mg tablet 20 mg PO DAILY PRN .leg swelling 10/14/23 10/14/23 History gabapentin 300 mg capsule 300 mg PO QAM 10/14/23 10/14/23 History gabapentin 300 mg capsule 600 mg PO QPM 10/14/23 10/14/23 History melatonin 10 mg tablet 20 mg PO HS 10/14/23 10/14/23 History multivitamin 1 tab PO DAILY 10/14/23 10/14/23 History nadolol 40 mg tablet 40 mg PO QAM 10/14/23 10/14/23 History paliperidone 9 mg tablet,extended 9 mg PO QAM 10/14/23 10/14/23 History release 24 hr sucralfate 100 mg/mL oral 0 ml PO DIRECTED PRN Acid Reflux 10/14/23 10/14/23 History suspension vitamin B complex 1 tab PO DAILY 10/14/23 10/14/23 History Patient History Medical History HTN (hypertension) Thrombocytopenia OCD (obsessive compulsive disorder) Insomnia Bipolar 1 disorder Tobacco abuse Alcohol dependence Compression fracture of T12 vertebra Compression fracture of L1 lumbar vertebra Hepatosplenomegaly Mixed hyperlipidemia Alcohol abuse Surgical History Hx of tonsillectomy Hx of colonoscopy 2015, WNL, internal hemorrhoids Social History Smoking Status: Current every day smoker Tobacco Type: Cigarettes Cigarettes Per Day: 10; Do You Dip or Chew Tobacco: No; Tobacco Cessation Education Requested by Patient: No Hx Alcohol Use: Yes Alcohol type: hard liquor Hx Substance Use: Yes Last Used Substance: Hours (ago) Preferred Language: Zimbabwean Communication Ability: Effective 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 Physical Exam Constitutional: WD/WN, vitals as above Respiratory: normal respiratory effort, lungs clear to auscultation Cardiovascular: RRR, no murmur, no edema Gastrointestinal (Abdomen): normal bowel sounds, soft, nontender, no hepatosplenomegaly Skin: + jaundice Results & Data Vital Signs (Past 12 Hours) Vital Signs Temp Pulse Pulse Resp BP Pulse Ox Pulse Ox 10/15/23 07:22 36.7 C 78 17 106/52 L 96 10/15/23 04:08 36.7 C 77 18 109/52 L 97 10/14/23 23:47 100 H 10/14/23 23:11 36.9 C 68 18 112/61 95 10/14/23 21:31 36.9 C 58 L 16 180/77 H 98 10/14/23 21:31 98 10/14/23 21:31 36.9 C 104 H 16 147/91 H 97 O2 Del Method O2 Del Method 10/15/23 07:22 Room Air 10/15/23 04:08 Room Air 10/14/23 23:47 10/14/23 23:11 Room Air 10/14/23 21:31 Room Air 10/14/23 21:31 Room Air 10/14/23 21:31 Room Air Laboratory Results 10/15/23 10/14/23 10/14/23 Range/Units 06:05 22:30 21:11 WBC 5.74 (4.8-10.8) K/ul RBC 3.72 L (4.70-6.10) M/uL Hgb 12.1 L 13.6 L (14.0-18.0) g/dl POC Hgb (14.0-18.0) g/dl Hct 34.8 L 39.4 L (42.0-52.0) % POC Hct (42-52) % MCV 93.5 (80.0-100.0) fL MCH 32.5 (25.0-34.0) pg MCHC 34.8 (32.0-36.0) g/dL RDW Std Deviation 53.5 H (36.4-46.3) fL RDW Coeff of Joe 15.7 H (11.5-14.5) % Plt Count 92 L (130-400) K/uL MPV 9.7 (9.4-12.4) fL Immature Gran % (Auto) 0.3 % Neut % (Auto) 33.9 % Lymph % (Auto) 48.4 % Hawkins % (Auto) 14.8 % Eos % (Auto) 2.1 % Baso % (Auto) 0.5 % Neut # (Auto) 1.94 (1.40-6.50) K/uL Lymph # (Auto) 2.78 (1.20-3.40) K/uL Hawkins # (Auto) 0.85 H (0.11-0.59) K/uL Eos # (Auto) 0.12 (0.00-0.50) K/uL Baso # (Auto) 0.03 (0.00-0.20) K/uL Immature Gran # (Auto) 0.02 (0.01-0.20) K/uL PT 16.1 H (9.0-12.0) Seconds INR 1.5 H (0.9-1.1) POC Sodium (135-144) mmol/L Sodium 138 (136-145) mmol/L POC Potassium (3.3-5.0) mmol/L Potassium 4.1 (3.5-5.1) mmol/L POC Chloride (101-112) mmol/L Chloride 105 (98-107) mmol/L Carbon Dioxide 24 (21-32) mmol/L POC Total CO2 (24-31) mmol/L Anion Gap 9 (3-11) POC Anion Gap (16-25) mmol/L POC BUN (7-18) mg/dl BUN 12 (6-23) mg/dl Creatinine 0.58 L (0.6-1.4) mg/dl POC Creatinine (0.6-1.3) mg/dl Est Cr Clr Drug Dosing 203.5 ml/min Est GFR ( Amer) > 150.0 ml/min Est GFR (Non-Af Amer) 132.1 ml/min BUN/Creatinine Ratio 20.7 H (10-20) Glucose 111 H (70-99(Fasting)) mg/dl POC Glucose (other) (70-99) mg/dl Calcium 8.5 L (8.6-10.3) mg/dl POC Ioniz Calcium William (1.12-1.32) mmol/l Magnesium 1.6 L (1.7-2.4) mg/dl Total Bilirubin 3.6 H (0.2-1.0) mg/dl Direct Bilirubin 1.1 H (0-0.2) mg/dl AST 80 H (13-39) U/L ALT 43 (7-52) U/L Alkaline Phosphatase 64 (34-104) U/L Troponin I High Sens (0-20) pg/ml Total Protein 6.3 D (6.0-8.3) gm/dl Albumin 3.4 (3.4-5.0) gm/dl Globulin 2.9 (2.5-4.0) gm/dl Albumin/Globulin Ratio 1.2 (0.9-2) Lipase (11-82) U/L Urine Color Dark Yellow Urine Appearance Clear (Clear) Urine pH 8.5 H (4.5-7.5) Ur Specific [place] 1.024 (1.000-1.030) Urine Protein 1+ H (Negative) Urine Glucose (UA) Negative (Negative) Urine Ketones Trace H (Negative) Urine Blood Negative (Negative) Urine Nitrite Negative (Negative) Urine Bilirubin Negative (Negative) Urine Urobilinogen Negative (Negative) Ur Leukocyte Esterase Trace H (Negative) Urine WBC (Auto) 0-5 (0-5) /hpf Urine RBC (Auto) 0-2 (0-2) /hpf U Hyaline Cast (Auto) 0-2 (0-2) /lpf U Epithel Cells (Auto) 0-2 (0-2) /hpf Urine Bacteria (Auto) None Seen (None Seen) Urine Opiates Screen Neg (Neg) Ur Methadone, Qual Neg (Neg) Urine Fentanyl Screen Neg (Neg) Urine Barbiturates Neg (Neg) Ur Phencyclidine (PCP) Neg (Neg) U Amphetamin/Meth Scrn Neg (Neg) MDMA (Ecstasy) Screen Neg (Neg) U Benzodiazepines Scrn Neg (Neg) Ur Cocaine Metabolite Neg (Neg) U Marijuana (THC) Screen Pos H (Neg) U Marijuana THC Carboxy Pending Drug Screen Comment Pending Ethyl Alcohol mg/dL (<10.0) mg/dl 10/14/23 10/14/23 Range/Units 15:46 15:40 WBC 6.72 (4.8-10.8) K/ul RBC 4.76 (4.70-6.10) M/uL Hgb 15.2 (14.0-18.0) g/dl POC Hgb 15.6 (14.0-18.0) g/dl Hct 44.0 (42.0-52.0) % POC Hct 46 (42-52) % MCV 92.4 (80.0-100.0) fL MCH 31.9 (25.0-34.0) pg MCHC 34.5 (32.0-36.0) g/dL RDW Std Deviation 53.1 H (36.4-46.3) fL RDW Coeff of Joe 15.6 H (11.5-14.5) % Plt Count 169 (130-400) K/uL MPV 9.6 (9.4-12.4) fL Immature Gran % (Auto) 0.3 % Neut % (Auto) 54.1 % Lymph % (Auto) 36.0 % Hawkins % (Auto) 7.4 % Eos % (Auto) 1.0 % Baso % (Auto) 1.2 % Neut # (Auto) 3.63 (1.40-6.50) K/uL Lymph # (Auto) 2.42 (1.20-3.40) K/uL Hawkins # (Auto) 0.50 (0.11-0.59) K/uL Eos # (Auto) 0.07 (0.00-0.50) K/uL Baso # (Auto) 0.08 (0.00-0.20) K/uL Immature Gran # (Auto) 0.02 (0.01-0.20) K/uL PT 13.9 H (9.0-12.0) Seconds INR 1.3 H (0.9-1.1) POC Sodium 142 (135-144) mmol/L Sodium 140 (136-145) mmol/L POC Potassium 3.7 (3.3-5.0) mmol/L Potassium 3.7 (3.5-5.1) mmol/L POC Chloride 106 (101-112) mmol/L Chloride 102 (98-107) mmol/L Carbon Dioxide 22 (21-32) mmol/L POC Total CO2 20 L (24-31) mmol/L Anion Gap 16 H (3-11) POC Anion Gap 21.0 (16-25) mmol/L POC BUN 8 (7-18) mg/dl BUN 10 (6-23) mg/dl Creatinine 0.62 (0.6-1.4) mg/dl POC Creatinine 0.7 (0.6-1.3) mg/dl Est Cr Clr Drug Dosing 188.5 ml/min Est GFR ( Amer) 149.0 ml/min Est GFR (Non-Af Amer) 128.5 ml/min BUN/Creatinine Ratio 16.1 (10-20) Glucose 121 H (70-99(Fasting)) mg/dl POC Glucose (other) 122 H (70-99) mg/dl Calcium 10.0 (8.6-10.3) mg/dl POC Ioniz Calcium William 1.10 L (1.12-1.32) mmol/l Magnesium 1.5 L (1.7-2.4) mg/dl Total Bilirubin 3.2 H (0.2-1.0) mg/dl Direct Bilirubin (0-0.2) mg/dl AST 111 H (13-39) U/L ALT 58 H (7-52) U/L Alkaline Phosphatase 81 (34-104) U/L Troponin I High Sens 4.6 (0-20) pg/ml Total Protein 7.9 (6.0-8.3) gm/dl Albumin 4.3 (3.4-5.0) gm/dl Globulin 3.6 (2.5-4.0) gm/dl Albumin/Globulin Ratio 1.2 (0.9-2) Lipase 75 (11-82) U/L Urine Color Urine Appearance (Clear) Urine pH (4.5-7.5) Ur Specific [place] (1.000-1.030) Urine Protein (Negative) Urine Glucose (UA) (Negative) Urine Ketones (Negative) Urine Blood (Negative) Urine Nitrite (Negative) Urine Bilirubin (Negative) Urine Urobilinogen (Negative) Ur Leukocyte Esterase (Negative) Urine WBC (Auto) (0-5) /hpf Urine RBC (Auto) (0-2) /hpf U Hyaline Cast (Auto) (0-2) /lpf U Epithel Cells (Auto) (0-2) /hpf Urine Bacteria (Auto) (None Seen) Urine Opiates Screen (Neg) Ur Methadone, Qual (Neg) Urine Fentanyl Screen (Neg) Urine Barbiturates (Neg) Ur Phencyclidine (PCP) (Neg) U Amphetamin/Meth Scrn (Neg) MDMA (Ecstasy) Screen (Neg) U Benzodiazepines Scrn (Neg) Ur Cocaine Metabolite (Neg) U Marijuana (THC) Screen (Neg) U Marijuana THC Carboxy Drug Screen Comment Ethyl Alcohol mg/dL 38.2 H (<10.0) mg/dl PG Care Time/CCT Total # of Minutes Spent Total Time Spent with Patient: Total time spent is greater than 50% in coordination of care (as documented) at patient's floor/unit and/or counseling patient: Coding Level of Care Code 62523 IN/OBS CONSULT LVL 4,60M Diagnoses Alcohol abuse F10.10 Gastrointestinal hemorrhage, unspecified gastrointestinal hemorrhage type K92.2 GI bleed type/associated pathology: unspecified gastrointestinal hemorrhage type (2) GIB (gastrointestinal bleeding) GI bleed type/associated pathology: unspecified gastrointestinal hemorrhage type Qualified Code(s): K92.2 - Gastrointestinal hemorrhage, unspecified
--- NOTE | 2023-10-15 10:06 | Electrocardiogram Report ---
Test Reason : Blood Pressure : */* mmHG Vent. Rate : 98 BPM Atrial Rate : 98 BPM P-R Int : 154 ms QRS Dur : 86 ms QT Int : 412 ms P-R-T Axes : 63 85 49 degrees QTcB Int : 525 ms Normal sinus rhythm Possible Left atrial enlargement RSR' or QR pattern in V1 suggests right ventricular conduction delay Prolonged QT Abnormal ECG When compared with ECG of 08-Aug-2023 15:04, No significant change was found Confirmed by George Mendez [id number]) on 10/15/2023 10:06:18 AM Referred By: Confirmed By: George Mendez
[2023-10-15] MEDS: SODIUM CHLORIDE 0.9% 500 ML IV SCH (12:40)
--- NOTE | 2023-10-15 13:00 | Anesthesiology Consultation ---
Date of Service October 15, 2023 Assessment & Plan Chart Review Chart Review: Acceptable Risk for Surgery and Patient NOT seen in Pre Admission Testing Consults Requested medical & cardiac Pulmonary ASA ASA3 Proposed Anesthesia Anesthesia Type: MAC Risk / Benefits Reviewed With: PT / POA / Parent / Guardian, Accepts Plan and Informed Consent Obtained History Surgery Operation Date: 10/15/23 16:55 Proposed Procedures p Esophagogastroduodenoscopy Dr. Gabo Ayon MD Height/Weight Height: 5 ft 9 in Weight: 96.3 kg Allergies Allergy/AdvReac Type Severity Reaction Status Date / Time No Known Allergies Allergy Verified 10/15/23 12:30 Medications Home Medications Medication Instructions Recorded Confirmed Last Taken celecoxib 200 mg capsule 200 mg PO QAM 10/14/23 10/14/23 Unknown folic acid 1 mg tablet 1 mg PO QAM 10/14/23 10/14/23 Unknown furosemide 20 mg tablet 20 mg PO DAILY PRN .leg swelling 10/14/23 10/14/23 Unknown gabapentin 300 mg capsule 300 mg PO QAM 10/14/23 10/14/23 Unknown gabapentin 300 mg capsule 600 mg PO QPM 10/14/23 10/14/23 Unknown melatonin 10 mg tablet 20 mg PO HS 10/14/23 10/14/23 Unknown multivitamin 1 tab PO DAILY 10/14/23 10/14/23 Unknown nadolol 40 mg tablet 40 mg PO QAM 10/14/23 10/14/23 Unknown paliperidone 9 mg tablet,extended 9 mg PO QAM 10/14/23 10/14/23 Unknown release 24 hr sucralfate 100 mg/mL oral 0 ml PO DIRECTED PRN Acid Reflux 10/14/23 10/14/23 Unknown suspension vitamin B complex 1 tab PO DAILY 10/14/23 10/14/23 Unknown Active Medications Generic Name Dose Route Start Last Admin Trade Name Freq PRN Reason Stop Dose Admin Chlordiazepoxide HCl 25 mg 10/14/23 23:00 10/15/23 11:29 Chlordiazepoxide Hcl 25 Mg Cap PO 10/15/23 17:01 25 mg Q6H PUJA Administration Potassium Chloride/Sodium Chloride 20 meq in 1,000 mls @ 100 mls/hr 10/14/23 22:00 10/15/23 12:20 Normal Saline W/20 Meq Kcl IV 11/13/23 21:30 0 mls/hr .Q10H PUJA Infusion Thiamine HCl 100 mg/ Syringe 10 mls @ 2 mls/min 10/15/23 09:00 10/15/23 08:59 IV 11/14/23 08:59 2 mls/min QAM PUJA Administration Folic Acid 1 mg/ Syringe 10 mls @ 5 mls/min 10/14/23 21:45 10/15/23 08:59 IV 11/13/23 21:44 5 mls/min QAM PUJA Administration Pantoprazole Sodium 40 mg/ 100 mls @ 20 mls/hr 10/14/23 23:00 10/15/23 12:20 Dextrose IV 11/13/23 22:59 0 mg/hr Q5H PUJA 0 mls/hr Infusion 8 MG/HR Ceftriaxone Sodium 2,000 mg in 50 mls @ 100 mls/hr 10/14/23 23:00 10/14/23 23:37 Rocephin IV 10/24/23 21:30 Infused Q24H PUJA Infusion Octreotide Acetate 500 mcg/ 100.5 mls @ 10.05 mls/hr 10/14/23 22:00 10/15/23 12:20 Sodium Chloride IV 11/13/23 21:30 0 mcg/hr .Q10H PUJA 0 mls/hr Infusion 50 MCG/HR Sodium Chloride 500 mls @ 15 mls/hr 10/15/23 07:30 10/15/23 12:40 Nss IV 10/16/23 07:29 15 mls/hr .Q24H PUJA Administration Nadolol 40 mg 10/15/23 09:00 10/15/23 08:59 Nadolol 40 Mg Tab PO 11/14/23 08:59 40 mg QAM PUJA Administration NPO Date Last Intake of Fluids: 10/13/23 Time Last Intake of Fluids: 20:00 Date Last Intake of Solids: 10/13/23 Time Last Intake of Solids: 20:00 Past Medical History Medical History HTN (hypertension) Thrombocytopenia OCD (obsessive compulsive disorder) Insomnia Bipolar 1 disorder Tobacco abuse Alcohol dependence Compression fracture of T12 vertebra Compression fracture of L1 lumbar vertebra Hepatosplenomegaly Mixed hyperlipidemia Alcohol abuse Exercise / Class Metabolic Activity II 4-5 Yardwork/Stairs/Walk up hill Past Surgical History Surgical History Hx of tonsillectomy Hx of colonoscopy 2015, WNL, internal hemorrhoids Past Anesthesia History No Hx of Anesthesia Complications and No Family Hx of Anesthesia Complications History of PONV No Hx of PONV and No Hx of Motion Sickness Social History Smoking Status: Current every day smoker Smoking cigarettes per day: 10 Do You Dip or Chew Tobacco: No Hx Alcohol Use: Yes Alcohol type: hard liquor alcohol intake frequency: 3 or more drinks per day Alcohol Intake Frequency Comment: Pt. consumes (2) pints Vodka daily Hx Substance Use: Yes substance use type: marijuana Last Used Substance: Hours (ago) Physical Exam Vital Signs Last Vital Signs Temp 37.3 C 10/15/23 12:30 Pulse 79 10/15/23 12:30 Resp 18 10/15/23 12:30 BP 142/87 H 10/15/23 12:30 Pulse Ox 96 10/15/23 12:30 O2 Del Method Room Air 10/15/23 12:30 ENMT Mouth: + poor dentition (no teeth loose) Thyromental Distance: > or= 3.5 Finger Breadths Mallampati Class: II Neck normal visual inspection Respiratory normal respiratory effort Auscultation: lungs clear to auscultation bilaterally Cardiovascular Rate/Rhythm: regular rate and regular rhythm Psychiatric Orientation: alert Testing Laboratory Results 10/15/23 06:05 10/15/23 06:05 PT 16.1 Seconds (9.0-12.0) H 10/15/23 06:05 INR 1.5 (0.9-1.1) H 10/15/23 06:05 Urine Color Dark Yellow 10/14/23 21:11 Urine Appearance Clear (Clear) 10/14/23 21:11 Urine pH 8.5 (4.5-7.5) H 10/14/23 21:11 Ur Specific [place] 1.024 (1.000-1.030) 10/14/23 21:11 Urine Protein 1+ (Negative) H 10/14/23 21:11 Urine Glucose (UA) Negative (Negative) 10/14/23 21:11 Urine Ketones Trace (Negative) H 10/14/23 21:11 Urine Nitrite Negative (Negative) 10/14/23 21:11 Ur Leukocyte Esterase Trace (Negative) H 10/14/23 21:11 Urine WBC (Auto) 0-5 /hpf (0-5) 10/14/23 21:11 Urine RBC (Auto) 0-2 /hpf (0-2) 10/14/23 21:11 U Hyaline Cast (Auto) 0-2 /lpf (0-2) 10/14/23 21:11 U Epithel Cells (Auto) 0-2 /hpf (0-2) 10/14/23 21:11 Urine Bacteria (Auto) None Seen (None Seen) 10/14/23 21:11
--- NOTE | 2023-10-15 13:52 | GI REPORT ---
[facility] Patient: ADONIS PENNY : 1990 Sex at : Male Age: 33 Years Procedure: Upper GI endoscopy Date: 10/15/2023 Attending Physician: Everett Ayon MD Referring MD: Nan Geller Md Indications: - Hematemesis Medications: - Monitored Anesthesia Care Complications: - No immediate complications. Procedure: - Prior to the procedure, a History and Physical was performed, and patient medications and allergies were reviewed. The patient's tolerance of previous anesthesia was also reviewed. The risks and benefits of the procedure and the sedation options and risks were discussed with the patient. All questions were answered, and informed consent was obtained. [Anticoagulant Agents] [Days Prior to Procedure]. [ASA Grade]. After reviewing the risks and benefits, the patient was deemed in satisfactory condition to undergo the procedure. - The egd scope was introduced through the mouth and advanced to the second part of the duodenum. - The upper GI endoscopy was accomplished without difficulty. - The patient tolerated the procedure well. Findings: - The examined duodenum was normal. - Localized mucosal changes characterized by erosion were found at the gastroesophageal junction. No bleeding and no stigmata. No significant varices identified. - Diffuse moderately congested mucosa was found in the gastric antrum, in the gastric body and in the gastric fundus. Findings consistent with diffuse portal gastropathy. Impression: - Normal examined duodenum. - Eroded mucosa in the esophagus. - Congestive gastropathy. - No specimens collected. Recommendation: - Resume previous diet. - Patient has a contact number available for emergencies. The signs and symptoms of potential delayed complications were discussed with the patient. Return to normal activities tomorrow. Written discharge instructions were provided to the patient. Procedure Code(s): - 33399, Esophagogastroduodenoscopy, flexible, transoral; diagnostic, including collection of specimen(s) by brushing or washing, when performed (separate procedure) Diagnosis Code(s): - K92.0, Hematemesis - K22.10, Ulcer of esophagus without bleeding - K31.89, Other diseases of stomach and duodenum CPT(R) - 202 copyright [employer]. All Rights Reserved. The CPT codes, CCI edits and ICD codes generated are intended as suggestions and were generated based on input data. These codes are preliminary and upon reel winder review may be revised to meet current compliance and payer requirements. The provider is responsible for the final determination of appropriate codes, and modifiers. Everett Ayon MD This document has been electronically signed. Note Initiated:10/15/2023 Note Completed:10/15/2023 1:51 PM \\[id number]
--- NOTE | 2023-10-15 14:20 | Anesthesiology Progress Note ---
Date of Service October 15, 2023 Anesthesia Post Procedure Vital Signs Vital Signs: Temp Pulse Pulse Resp BP BP Pulse Ox 10/15/23 14:04 71 18 118/64 96 10/15/23 13:49 74 16 119/63 95 10/15/23 12:30 37.3 C 79 18 142/87 H 96 10/15/23 11:46 36.6 C 68 18 119/64 93 10/15/23 09:37 86 10/15/23 07:22 36.7 C 78 17 106/52 L 96 10/15/23 04:08 36.7 C 77 18 109/52 L 97 10/14/23 23:47 100 H 10/14/23 23:11 36.9 C 68 18 112/61 95 10/14/23 21:31 36.9 C 58 L 16 180/77 H 98 10/14/23 21:31 10/14/23 21:31 36.9 C 104 H 16 147/91 H 97 10/14/23 20:51 100 H 22 95 10/14/23 20:18 97 H 22 148/70 H 97 10/14/23 19:41 36.9 C 101 H 22 113/91 99 10/14/23 19:40 99 H 10/14/23 18:37 102 H 20 107/67 98 10/14/23 18:04 103 H 21 130/76 96 10/14/23 16:13 107 H 10/14/23 16:08 98 H 21 130/76 100 10/14/23 16:06 98 H 21 100 10/14/23 15:24 36.4 C L 105 H 22 155/78 H 98 Pulse Ox O2 Del Method O2 Del Method 10/15/23 14:04 Room Air 10/15/23 13:49 Room Air 10/15/23 12:30 Room Air 10/15/23 11:46 Room Air 10/15/23 09:37 10/15/23 07:22 Room Air 10/15/23 04:08 Room Air 10/14/23 23:47 10/14/23 23:11 Room Air 10/14/23 21:31 Room Air 10/14/23 21:31 98 Room Air 10/14/23 21:31 Room Air 10/14/23 20:51 Room Air 10/14/23 20:18 Room Air 10/14/23 19:41 Room Air 10/14/23 19:40 10/14/23 18:37 Room Air 10/14/23 18:04 Room Air 10/14/23 16:13 10/14/23 16:08 Room Air 10/14/23 16:06 Room Air 10/14/23 15:24 Room Air Pain Intensity Head: Pain Intensity: 5 Transfer of Care Handoff Completed per policy Notes Mental Status: alert / awake / arousable Patient Amnestic to Procedure: Yes Nausea / Vomiting: adequately controlled Pain: adequately controlled Airway Patency, RR, SpO2: stable & adequate BP & HR: stable & adequate Hydration State: stable & adequate Anesthetic Complications: no major complications apparent
[2023-10-15] MEDS: LIDOCAINE 2% 2 ML VIAL/AMP(20MG/ML) INFIL ONE (15:43)
[2023-10-15] MEDS: PROPOFOL IV EMULSION 10 MG/ML 20 ML VIAL IV ONE (15:43)
[2023-10-15] MEDS: MAGNESIUM SULFATE / D5W 1 GM/100 ML BAG IV SCH (16:25)
[2023-10-15] MEDS: MAGNESIUM OXIDE 400 MG TAB PO SCH (20:07)
[2023-10-15] MEDS: PANTOprazole 40 MG TAB PO SCH (20:07)
[2023-10-16] MEDS: chlordiazePOXIDE HCl 25 MG CAP PO SCH (00:15)
[2023-10-16 04:50] VITALS: RESP 20
[2023-10-16 07:47] VITALS: TEMP 97.7
[2023-10-16 08:12] LABS: Alanine Aminotransferase 49 U/L (7-52); Albumin Globulin Ratio 1.4 (0.9-2); Albumin Level 3.4 gm/dl (3.4-5.0); Alkaline Phosphatase 64 U/L (34-104); Anion Gap 4 (3-11); Aspartate Aminotransferase 92 U/L (13-39); BUN Creatinine Ratio 13.3 (10-20); Bilirubin Direct 1.2 mg/dl (0-0.2); Bilirubin,Total 4.2 mg/dl (0.2-1.0); Blood Urea Nitrogen 8 mg/dl (6-23); Calcium 8.4 mg/dl (8.6-10.3); Carbon Dioxide 26 mmol/L (21-32); Chloride 106 mmol/L (98-107); Est GFR (African American) > 150.0 ml/min; Est GFR (Non-African American) 130.3 ml/min; Globulin 2.5 gm/dl (2.5-4.0); Glucose 98 mg/dl (70-99(Fasting)); Magnesium 1.5 mg/dl (1.7-2.4); Potassium 3.6 mmol/L (3.5-5.1); Sodium 136 mmol/L (136-145); Total Protein 5.9 gm/dl (6.0-8.3)
[2023-10-16 08:19] LABS: INR 1.7 (0.9-1.1); Prothrombin Time 17.7 Seconds (9.0-12.0)
[2023-10-16 08:24] LABS: Hematocrit (blood only) 35.4 % (42.0-52.0); Hemoglobin 12.1 g/dl (14.0-18.0); Mean Corpuscular Hemoglobin 32.4 pg (25.0-34.0); Mean Corpuscular Hgb Conc 34.2 g/dL (32.0-36.0); Mean Corpuscular Volume 94.7 fL (80.0-100.0); Mean Platelet Volume 10.4 fL (9.4-12.4); Platelet Count 94 K/uL (130-400); RDW Coefficient of Variation 15.2 % (11.5-14.5); RDW Standard Deviation 52.8 fL (36.4-46.3); Red Blood Count 3.74 M/uL (4.70-6.10); White Blood Count 5.54 K/ul (4.8-10.8)
[2023-10-16 08:25] LABS: ALC (manual) 2.94 K/uL (1.2-3.4); ANC (manual) 2.05 K/uL (1.4-6.5); Basophils # (manual) 0.11 K/uL (0-0.2); Basophils % (manual) 2 %; Eosinophils # (manual) 0.28 K/uL (0-0.50); Eosinophils % (manual) 5 %; Lymphocytes # (manual) 2.94 K/uL (1.2-3.4); Lymphocytes % (manual) 53 %; Monocytes # (manual) 0.17 K/uL (0.11-0.59); Monocytes % (manual) 3 %; Neutrophils # (manual) 2.05 K/uL (1.40-6.50); Neutrophils % (manual) 37 %
--- NOTE | 2023-10-16 09:01 | Electrocardiogram Report ---
Test Reason : Blood Pressure : */* mmHG Vent. Rate : 83 BPM Atrial Rate : 83 BPM P-R Int : 156 ms QRS Dur : 100 ms QT Int : 448 ms P-R-T Axes : 74 71 52 degrees QTcB Int : 526 ms Normal sinus rhythm Left atrial enlargement RSR' or QR pattern in V1 suggests right ventricular conduction delay Prolonged QT Abnormal ECG When compared with ECG of 14-Oct-2023 16:19, No significant change was found Confirmed by George Mendez ([id number]) on 10/16/2023 9:01:19 AM Referred By: REFERRED SELF Confirmed By: George Mendez
[2023-10-16 10:42] VITALS: BP 128/82; PULSE 55; O2SAT 97
--- NOTE | 2023-10-16 12:45 | Discharge Summary ---
Discharge Summary Date of Service October 16, 2023 Principal Dx & Hospital Course #1 = Principal Diagnosis (1) Alcohol withdrawal syndrome: (2) Alcohol abuse: (3) GIB (gastrointestinal bleeding): Alcohol withdrawal and coffee-ground emesis since this morning Plan Mr. Storey is a 33-year-old male with history of alcoholism, liver cirrhosis with portal hypertension, esophageal varices, coagulopathy, chronic anemia, bipolar disorder admitted for with alcohol withdrawal and accompanying emesis on 10/13. Patient reports history of hematemesis and MWT, as well as history of varices, therefore GI consulted and EGD performed on 10/14. EGD revealed portal gastropathy and mucosa erosion in esophagus, but no stigmata of active bleeding. Patient denies any further resources for alcohol cessation. Patient denies any further nausea or vomiting. Patient on AWSS with librium and not requiring IV medications. Patient with QtC of 526 on admission, therefore paliperidone was held. Discussed case with Dr. Sotelo via TT, which recommended resuming upon d/c as QTC at 486 on day of discharge, however, risks were explained to patient and encouraged EKG follow up in 1-2 weeks to ensure this medication not contributing to qtc prolongation Alcohol withdrawal Alcohol abuse Presents to the ER for detox Drinks 1 bottle of vodka daily, last drink night before admission Complete libirum taper Resume home gabapentin once completed Patient prefers to do outpatient alcohol rehab Episode of coffee-ground emesis, bright red blood vomiting possible Esophagitis, Roz Barney Tear, Bleeding Esophageal Varices History of esophageal varices, coagulopathy, liver cirrhosis Hemoglobin 15 which is actually improved compared to last admission, 12 INR 1.3, platelet count 169 Protonix dc IV, ceftriaxone IV, octreotide IV IV fluids Continue with usual nadolol 40 mg daily GI consulted -s/p on 10/14, noting congestive gastropathy and eroded mucosa in the esopha alexander Continue protonix bid QT prolongation QT corrected 526--486 on d/c Monitor and replace electrolytes Avoid QT prolonging agents Repeat EKG in 1-2 weeks with PCP Chronic back pain On gabapentin 600 mg at bedtime, 300 mg in the morning Holding while on Librium protocol, resume when libirum taper complete Bipolar disorder Resume paliperidone,. repeat EKG for goal Qtc <500ms Discussed with Dr. Sotelo regarding resumption Notes For Next Care Provider Needs repeat EKG in 1-2 weeks for QTc monitoring Medication Changes From Visit 3 days left of libirium taper Held gabapentin until complete Magnesium chloride BID Protonix BID Admission HPI Per Admitting Provider 33-year-old male with history of alcoholism, liver cirrhosis with portal hypertension, esophageal varices, coagulopathy, chronic anemia, bipolar disorder presenting with alcohol withdrawal and accompanying emesis starting this morning. Patient states he drinks 1 bottle of vodka per day and his last drink was yesterday. He started to experience withdrawal symptoms this morning including tremors and vomiting-10 times, with coffee-ground material as well as bright red blood occasionally. Patient would like to undergo detox hence proceeded to the ER. At the ER, patient received stable blood pressure, mild tachycardia, afebrile. Hemoglobin 15.6 He was given Protonix 40 mg IV, Ativan 1 mg, thiamine 20 mg IV, Zofran and magnesium IV. On exam, patient states he feels somewhat improved since receiving above medications. No active nausea, abdominal discomfort also improving. No active sweating, tremors, anxiety, confusion. Admission Exam Per Admitting Provider General- oriented x 3, not in distress, speaks in sentences with no effort or accessory muscle use Head- atraumatic Eyes- PERRL, EOMI, anicteric ENT- oropharynx clear Neck- supple, no JVD, no adenopathy, no thyromegaly; carotids +2/2, no bruits appreciated Lungs- clear to auscultation bilaterally, no rales/wheezes Heart- normal rate, regular rhythm; no murmur, no gallop, no rub appreciated Abdomen- normal bowel sounds, nondistended, soft, Mild tenderness in all quadrants, no masses or hepatosplenomegaly Extremities- no pretibial edema, no calf tenderness; peripheral pulses intact No tremors Neuro- alert, oriented x 3; CN 2-12 grossly intact; motor 5/5 bilaterally;sensation 100% on all extremities; no other gross focal neurologic deficits Skin- warm & dry Discharge Exam Constitutional WD/WN, vitals as above Respiratory normal respiratory effort, lungs clear to auscultation Cardiovascular RRR, no murmur, no edema Gastrointestinal (Abdomen) normal bowel sounds, soft, nontender, no hepatosplenomegaly Musculoskeletal no cyanosis or clubbing, extremities motor strength 5/5 Updated Medication List Medication Instructions Recorded Confirmed Type celecoxib 200 mg capsule 200 mg PO QAM 10/14/23 10/14/23 History folic acid 1 mg tablet 1 mg PO QAM 10/14/23 10/14/23 History furosemide 20 mg tablet 20 mg PO DAILY PRN .leg swelling 10/14/23 10/14/23 History gabapentin 300 mg capsule 300 mg PO QAM 10/14/23 10/14/23 History gabapentin 300 mg capsule 600 mg PO QPM 10/14/23 10/14/23 History melatonin 10 mg tablet 20 mg PO HS 10/14/23 10/14/23 History multivitamin 1 tab PO DAILY 10/14/23 10/14/23 History nadolol 40 mg tablet 40 mg PO QAM 10/14/23 10/14/23 History paliperidone 9 mg tablet,extended 9 mg PO QAM 10/14/23 10/14/23 History release 24 hr sucralfate 100 mg/mL oral 0 ml PO DIRECTED PRN Acid Reflux 10/14/23 10/14/23 History suspension vitamin B complex 1 tab PO DAILY 10/14/23 10/14/23 History chlordiazepoxide HCl 5 mg capsule See Rx Instructions .Route 10/16/23 Rx .COMPLEX #13 caps magnesium chloride 64 mg 64 mg PO BID #60 tabs 10/16/23 Rx (magnesium chloride) tablet pantoprazole 40 mg tablet,delayed 40 mg PO BID #60 tabs 10/16/23 Rx release Hospital Stay Data Consultations 10/14/23 17:46 ED Decision to Admit Stat 10/14/23 21:31 Consult Gastroenterology Routine Procedures Performed Operation Date: 10/15/23 16:55 Actual Procedures p Esophagogastroduodenoscopy(Not Applicable) - Everett Ayon MD Pending Results Patient Have Any Pending Studies at Discharge: No Discharge Instructions Given to Patient (Per Discharging Provider) You were admitted for concern of blood in vomit. Given concern of bleeding and history of varices, you underwent EGD on 10/14. It revealed esophagitis, but no bleeding or varices. Please continue Protonix 40mg two times a day Please attempt to pursue alcohol cessation please follow up with Gastroenterology as directed Please trial soft diet in interim. Please continue libirum taper: Take 25mg (5 tablets) this evening, 9pm Take 10mg (2 tablets) breakfast, lunch, dinner on 10/16 Take 5mg breakfast and dinner on 10/17 Please hold gabapentin until complete with above You were noted to have a prolonged QTc (an electric measurement of your heart) which can be due to multiple issues, including vomiting, electrolytes issues, and medications The medication Paliperidone 9mg can contribute to this abnormal change, however, after discussing with psychitary, it is recommended you follow up with your Psychiatrist for repeat EKG in 1-2 weeks to ensure it stays at an appropriate level You were also changed to a better absorbed formulation of magnesium -Magnesium chloride 64mg two times a day Total Time Total Time Spent Total Time Spent (In Minutes): 45
--- NOTE | 2023-10-16 13:42 | Electrocardiogram Report ---
Test Reason : Blood Pressure : */* mmHG Vent. Rate : 57 BPM Atrial Rate : 57 BPM P-R Int : 180 ms QRS Dur : 100 ms QT Int : 500 ms P-R-T Axes : 52 61 43 degrees QTcB Int : 486 ms Sinus bradycardia Prolonged QT Abnormal ECG When compared with ECG of 15-Oct-2023 05:55, No significant change was found Confirmed by George Mendez ([id number]) on 10/16/2023 1:42:01 PM Referred By: REFERRED SELF Confirmed By: George Mendez
[2023-10-18] MEDS ORDERED: chlordiazePOXIDE HCl 5 MG CAP PO SCH (00:30)
[2023-10-18 01:22] LABS: Marijuana Quant, GCMS Urine >5000 ng/mL (<5)
== END 2023-10-16 14:25 | disposition home or self-care (01) | DRG 432 ==
LOC: ED 15:23 → SUATTDRO 18:26 → INTOOBSV 18:26 → 4W 18:26

== ENCOUNTER 2023-12-03 17:37 | Observation (INO) ==
[2023-12-03 18:43] LABS: Basophils # (auto) 0.06 K/uL (0.00-0.20); Basophils % (auto) 0.7 %; Eosinophils # (auto) 0.11 K/uL (0.00-0.50); Eosinophils % (auto) 1.3 %; Hematocrit (blood only) 42.2 % (42.0-52.0); Hemoglobin 14.7 g/dl (14.0-18.0); Immature Granulocytes # (auto) 0.02 K/uL (0.01-0.20); Immature Granulocytes % (auto) 0.2 %; Lymphocytes % (auto) 26.8 %; Mean Corpuscular Hemoglobin 32.3 pg (25.0-34.0); Mean Corpuscular Hgb Conc 34.8 g/dL (32.0-36.0); Mean Corpuscular Volume 92.7 fL (80.0-100.0); Mean Platelet Volume 10.4 fL (9.4-12.4); Monocytes # (auto) 0.78 K/uL (0.11-0.59); Monocytes % (auto) 9.1 %; Neutrophils # (auto) 5.31 K/uL (1.40-6.50); Neutrophils % (auto) 61.9 %; Platelet Count 48 K/uL (130-400); RDW Coefficient of Variation 18.1 % (11.5-14.5); RDW Standard Deviation 60.9 fL (36.4-46.3); Red Blood Count 4.55 M/uL (4.70-6.10); White Blood Count 8.58 K/ul (4.8-10.8)
[2023-12-03 18:45] LABS: Albumin Level 4.4 gm/dl (3.4-5.0); Anion Gap 13 (3-11); Bilirubin Direct 1.4 mg/dl (0-0.2); Calcium 8.8 mg/dl (8.6-10.3); Carbon Dioxide 25 mmol/L (21-32); Chloride 104 mmol/L (98-107); Potassium 3.8 mmol/L (3.5-5.1); Sodium 142 mmol/L (136-145)
[2023-12-03 18:51] LABS: Alanine Aminotransferase 134 U/L (7-52); Alkaline Phosphatase 98 U/L (34-104); Aspartate Aminotransferase 246 U/L (13-39); BUN Creatinine Ratio 15.1 (10-20); Blood Urea Nitrogen 8 mg/dl (6-23); Est GFR (African American) > 150.0 ml/min; Est GFR (Non-African American) 137.1 ml/min; Glucose 118 mg/dl (70-99(Fasting)); Lipase 203 U/L (11-82); Total Protein 7.9 gm/dl (6.0-8.3)
--- NOTE | 2023-12-03 19:31 | Emergency Department Note ---
Impression & Plan Acute alcohol abuse, Alcohol intoxication, Alcohol use disorder, severe, dependence ED Provider Note NAME: ADONIS PENNY AGE: 33 SEX: M : 1990 ARRIVES VIA: Walk-In INFORMANT: Patient, ED PROVIDER(S): Missy Lucio MD CHIEF COMPLAINT: Alcohol detox HPI: This is a 33-year-old male presenting for alcohol detox. Patient states that he drank immediately prior to arrival, drinking about 1 L of vodka. He drinks this daily. He states that when he does not drink he gets shakes but he has had previous alcohol withdrawal seizures about 4 to 5 years ago. Patient is Leo intoxicated at this time. He notes no falls today. ROS: See above HPI for pertinent positives & negatives. A total of 10 systems reviewed and were otherwise negative. PAST MEDICAL HISTORY: See Below PAST SURGICAL HISTORY: See Below FAMILY HISTORY: See Below SOCIAL HISTORY: See Below HOME MEDICATIONS: See Below ALLERGIES: See Below VITALS: See Below PHYSICAL EXAMINATION: General: resting comfortably in no acute distress, intoxicated, disheveled Head: Normocephalic and atraumatic Eyes: Normal inspection, extraocular muscles intact Ear, nose, throat: Normal external exam Neck: Normal range of motion Respiratory: speaking in full sentences, symmetric chest rise, no respiratory distress Cardiovascular: Regular rate/rhythm Extremities: moves all extremities Neuro: The patient awake and alert, appropriately conversive, symmetric faces, no focal deficits MEDICAL DECISION MAKING: This is a 33-year-old male present for alcohol detox and patient currently requesting alcohol detox however he has not been very intoxicated. His partner mentions he drank about a liter of vodka prior to arrival. He notes that this patient will begin at some point but he does not feel them discharge at this time. He does not feel anxious. He is sleepy. -Blood work reviewed showing a transaminitis with elevated bilirubin up to 4 with direct of 1.4. The bilirubin level is similar to previous otherwise just not as consistent with drinking. Patient has expressed continued desire for detox. Will admit for detox at this time. His alcohol level is over 500, he will require 20+ hours for sobriety. Differential diagnosis: Alcohol withdrawal, alcohol hepatitis, alcohol intoxication ER treatment provided: See below Independent History obtained from: [facility] interpreted by me: ECG: None Cardiac Monitoring: An order was placed for continuous cardiac monitoring. The monitor shows a rate of 98 with sinus rhythm. Laboratory studies: As stated above and show below. Imaging studies: See below. Past Med/Surg History Problem List (Updated 12/03/23 @ 22:08 by Missy Lucio MD) Alcohol abuse (Acute) Alcohol withdrawal syndrome (Acute) Alcohol use disorder, severe, dependence (Acute) Alcohol intoxication (Acute) GIB (gastrointestinal bleeding) (Acute) Alcoholic hepatitis Acute alcohol abuse (Acute) Pancytopenia (Acute) Medical History HTN (hypertension) Thrombocytopenia OCD (obsessive compulsive disorder) Insomnia Bipolar 1 disorder Tobacco abuse Alcohol dependence Compression fracture of T12 vertebra Compression fracture of L1 lumbar vertebra Hepatosplenomegaly Mixed hyperlipidemia Alcohol abuse Surgical History Hx of tonsillectomy Hx of colonoscopy 2015, WNL, internal hemorrhoids Social History Smoking Status: Current every day smoker Tobacco Type: Cigarettes Cigarettes Per Day: 10; Do You Dip or Chew Tobacco: No; Hx Alcohol Use: Yes Alcohol type: hard liquor Hx Substance Use: Yes Last Used Substance: Hours (ago) Preferred Language: French Communication Ability: Effective 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: No Beliefs That Will Affect Care: None Current Living Situation: Alone Feels Safe at Home: Yes Assistive Devices: None Allergies Allergies Allergy/AdvReac Type Severity Reaction Status Date / Time No Known Allergies Allergy Verified 12/03/23 21:31 Home Meds Home Medications Medication Instructions Recorded Confirmed celecoxib 200 mg capsule 200 mg PO QAM 10/14/23 12/03/23 folic acid 1 mg tablet 1 mg PO QAM 10/14/23 12/03/23 furosemide 20 mg tablet 20 mg PO DAILY PRN .leg swelling 10/14/23 12/03/23 gabapentin 300 mg capsule 300 mg PO QAM 10/14/23 12/03/23 gabapentin 300 mg capsule 600 mg PO QPM 10/14/23 12/03/23 melatonin 10 mg tablet 20 mg PO HS 10/14/23 12/03/23 multivitamin 1 tab PO DAILY 10/14/23 12/03/23 nadolol 40 mg tablet 40 mg PO QAM 10/14/23 12/03/23 paliperidone 9 mg tablet,extended 9 mg PO QAM 10/14/23 12/03/23 release 24 hr vitamin B complex 1 tab PO DAILY 10/14/23 12/03/23 Previous Rx's Medication Instructions Recorded magnesium chloride 64 mg 64 mg PO BID #60 tabs 10/16/23 (magnesium chloride) tablet pantoprazole 40 mg tablet,delayed 40 mg PO BID #60 tabs 10/16/23 release Results & Data (ED) Vital Signs Vital Signs - 24 hr 12/03/23 17:41 12/03/23 17:58 12/03/23 19:38 Temperature 36.4 C L Temperature Source Temporal Artery Scan Pulse Rate 100 H 109 H Pulse Rate [Apical] Pulse Rhythm Regular Pulse Rhythm [Apical] Pulse Strength Normal Pulse Strength [Apical] Respiratory Rate 20 Respiratory Effort / Characteristics Non-Labored Spontaneous Respiratory Depth Normal Respiratory Pattern Regular Blood Pressure 159/107 H Blood Pressure [Left Arm] Blood Pressure Mean 124 Blood Pressure Mean [Left Arm] Blood Pressure Position Sitting Blood Pressure Position [Left Arm] Pulse Oximetry 97 92 Oxygen Delivery Method Room Air Sepsis Recent Fever Within 48 Hours No Sepsis New/Unexplained Change in Mental Status No Sepsis Action Taken by Nursing No Action Required 12/03/23 20:58 12/03/23 21:39 Temperature Temperature Source Pulse Rate 98 H Pulse Rate [Apical] 87 Pulse Rhythm Pulse Rhythm [Apical] Regular Pulse Strength Pulse Strength [Apical] Normal Respiratory Rate 18 Respiratory Effort / Characteristics Non-Labored Spontaneous Respiratory Depth Normal Respiratory Pattern Regular Blood Pressure Blood Pressure [Left Arm] 138/84 Blood Pressure Mean Blood Pressure Mean [Left Arm] 102 Blood Pressure Position Blood Pressure Position [Left Arm] Lying Pulse Oximetry 92 Oxygen Delivery Method Room Air Sepsis Recent Fever Within 48 Hours Sepsis New/Unexplained Change in Mental Status Sepsis Action Taken by Nursing Laboratory Data 12/03/23 18:15 12/03/23 18:15 Lab Results 12/03/23 Range/Units 18:15 WBC 8.58 (4.8-10.8) K/ul RBC 4.55 L (4.70-6.10) M/uL Hgb 14.7 (14.0-18.0) g/dl Hct 42.2 (42.0-52.0) % MCV 92.7 (80.0-100.0) fL MCH 32.3 (25.0-34.0) pg MCHC 34.8 (32.0-36.0) g/dL RDW Std Deviation 60.9 H (36.4-46.3) fL RDW Coeff of Joe 18.1 H (11.5-14.5) % Plt Count 48 L (130-400) K/uL MPV 10.4 (9.4-12.4) fL Immature Gran % (Auto) 0.2 % Neut % (Auto) 61.9 % Lymph % (Auto) 26.8 % Taney % (Auto) 9.1 % Eos % (Auto) 1.3 % Baso % (Auto) 0.7 % Neut # (Auto) 5.31 (1.40-6.50) K/uL Lymph # (Auto) 2.30 (1.20-3.40) K/uL Taney # (Auto) 0.78 H (0.11-0.59) K/uL Eos # (Auto) 0.11 (0.00-0.50) K/uL Baso # (Auto) 0.06 (0.00-0.20) K/uL Immature Gran # (Auto) 0.02 (0.01-0.20) K/uL Sodium 142 (136-145) mmol/L Potassium 3.8 (3.5-5.1) mmol/L Chloride 104 (98-107) mmol/L Carbon Dioxide 25 (21-32) mmol/L Anion Gap 13 H (3-11) BUN 8 (6-23) mg/dl Creatinine 0.53 L (0.6-1.4) mg/dl Est Cr Clr Drug Dosing Not Reportable Est GFR ( Amer) > 150.0 ml/min Est GFR (Non-Af Amer) 137.1 ml/min BUN/Creatinine Ratio 15.1 (10-20) Glucose 118 H (70-99(Fasting)) mg/dl Calcium 8.8 (8.6-10.3) mg/dl Total Bilirubin 4.0 H (0.2-1.0) mg/dl Direct Bilirubin 1.4 H (0-0.2) mg/dl AST 246 H (13-39) U/L ALT 134 H (7-52) U/L Alkaline Phosphatase 98 (34-104) U/L Total Protein 7.9 (6.0-8.3) gm/dl Albumin 4.4 (3.4-5.0) gm/dl Lipase 203 H (11-82) U/L Ethyl Alcohol mg/dL 518.6 H (<10.0) mg/dl Discharge Plan Visit Data Chief Complaint: Detox Request Stated Complaint: INTOXICATION ED Provider: Missy Lucio Discharge Problem: Acute alcohol abuse, Alcohol intoxication, Alcohol use disorder, severe, dependence Forms Stand Alone Forms: My [facility], Suicide Prevention Resources Prescriptions Prescriptions: No Action celecoxib 200 mg capsule 200 mg PO QAM gabapentin 300 mg capsule 600 mg PO QPM Hold Instructions: Until complete with librium gabapentin 300 mg capsule 300 mg PO QAM Hold Instructions: Until complete with librium nadolol 40 mg tablet 40 mg PO QAM folic acid 1 mg tablet 1 mg PO QAM furosemide 20 mg tablet 20 mg PO DAILY PRN (Reason: .leg swelling) paliperidone 9 mg tablet extended release 24 hr 9 mg PO QAM multivitamin Tablet 1 tab PO DAILY vitamin B complex Tablet 1 tab PO DAILY melatonin 10 mg Tablet 20 mg PO HS magnesium chloride 64 mg magnesium tablet 64 mg PO BID Qty: 60 0RF pantoprazole 40 mg Tablet,Delayed Release (Dr/Ec) 40 mg PO BID Qty: 60 0RF Referrals Referrals: Tami Upton MD [Primary Care Provider] -
[2023-12-03 22:18] LABS: INR 1.6 (0.9-1.1); Prothrombin Time 16.4 Seconds (9.0-12.0)
[2023-12-03 22:31] LABS: Magnesium 2.1 mg/dl (1.7-2.4)
[2023-12-03] MEDS: METOPROLOL TARTRATE 1 MG/ML VIAL IV STA (23:00)
[2023-12-03] MEDS: PROMETHAZINE 6.25 MG/50.25 ML BAG IV STA (23:00)
[2023-12-03] MEDS: THIAMINE HCL 100 MG in SYRINGE 9 ML IV STA (23:00)
[2023-12-03] MEDS: OPTIRAY 320 100ml IV ONE (23:18)
[2023-12-03] MEDS: POTASSIUM CHLORIDE 20 MEQ in LACTATED RINGER'S 1,000 ML IV ONE (23:36)
--- NOTE | 2023-12-03 23:38 | History & Physical Report ---
Date of Service December 03, 2023 Assessment & Plan (1) Alcohol withdrawal syndrome: Plan: Alcohol withdrawal Alcoholic pancreatitis UGIB, currently hemodynamically stable Alcoholic hepatitis, good prognosis with Maddrey's DF score of 24 points. alcoholic cirrhosis portal hypertensive gastropathy as per records chronic anemia, (baseline hemoglobin 12-13), hemoglobin better than baseline likely secondary hemoconcentration chronic thrombocytopenia secondary to cirrhosis chronic back pain secondary to compression fractures mood disorder/OCD as per records Hyperglycemia ro DM ongoing tobacco abuse Admit to medical telemetry THO S, DT precautions Bowel rest, IVF GI consult re: pancreatitis, UGIB IV PPI Ceftriaxone for SBP prophylaxis in a cirrhotic patient presenting with GI bleed Check hemoglobin A1c Nicotine patch as needed DVT prophylaxis. SCDs re: GI bleed Full code Text document was generated using [employer] voice recognition software. It may contain grammatical or spelling errors. Kindly contact undersigned for clarification of any documentation item in question. History of Present Illness Chief Complaint: Withdrawal, abdominal pain Primary Care Provider: Tami Upton MD History obtained from patient, family, and records. Medical history significant for alcoholic cirrhosis, portal hypertensive gastropathy as per records, chronic anemia (baseline hemoglobin 12-13), chronic thrombocytopenia, chronic back pain secondary to compression fractures, mood disorder, OCD as per records, ongoing tobacco abuse. Last confinement 2 months ago for alcohol withdrawal and UGIB. EGD showed portal gastropathy and esophageal mucosal erosions. Patient had achy abdominal pain today associated with nausea and emesis. Denies headache, chest pain, unusual SOB. Blood streaked emesis as per patient. Usual dark stools. No fever, no chills. Patient accompanied his partner to the ER today. He did not look well as per partner. He looks shaky. 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 Allergies Allergy/AdvReac Type Severity Reaction Status Date / Time No Known Allergies Allergy Verified 12/03/23 21:31 Home Medications Medication Instructions Recorded Confirmed Type celecoxib 200 mg capsule 200 mg PO QAM 10/14/23 12/03/23 History folic acid 1 mg tablet 1 mg PO QAM 10/14/23 12/03/23 History furosemide 20 mg tablet 20 mg PO DAILY PRN .leg swelling 10/14/23 12/03/23 History gabapentin 300 mg capsule 300 mg PO QAM 10/14/23 12/03/23 History gabapentin 300 mg capsule 600 mg PO QPM 10/14/23 12/03/23 History melatonin 10 mg tablet 20 mg PO HS 10/14/23 12/03/23 History multivitamin 1 tab PO DAILY 10/14/23 12/03/23 History nadolol 40 mg tablet 40 mg PO QAM 10/14/23 12/03/23 History paliperidone 9 mg tablet,extended 9 mg PO QAM 10/14/23 12/03/23 History release 24 hr vitamin B complex 1 tab PO DAILY 10/14/23 12/03/23 History magnesium chloride 64 mg 64 mg PO BID #60 tabs 10/16/23 12/03/23 Rx (magnesium chloride) tablet pantoprazole 40 mg tablet,delayed 40 mg PO BID #60 tabs 10/16/23 12/03/23 Rx release Past Med/Surg History Problem List (Updated 12/03/23 @ 22:08 by Missy Lucio MD) Alcohol abuse (Acute) Alcohol withdrawal syndrome (Acute) Alcohol use disorder, severe, dependence (Acute) Alcohol intoxication (Acute) GIB (gastrointestinal bleeding) (Acute) Alcoholic hepatitis Acute alcohol abuse (Acute) Pancytopenia (Acute) Medical History HTN (hypertension) Thrombocytopenia OCD (obsessive compulsive disorder) Insomnia Bipolar 1 disorder Tobacco abuse Alcohol dependence Compression fracture of T12 vertebra Compression fracture of L1 lumbar vertebra Hepatosplenomegaly Mixed hyperlipidemia Alcohol abuse Surgical History Hx of tonsillectomy Hx of colonoscopy 2015, WNL, internal hemorrhoids Social History Smoking Status: Current every day smoker Tobacco Type: Cigarettes Cigarettes Per Day: 10; Do You Dip or Chew Tobacco: No; Hx Alcohol Use: Yes Alcohol type: hard liquor Hx Substance Use: Yes Last Used Substance: Hours (ago) Preferred Language: [place] Communication Ability: Effective Silverware Buffer Required: No Beliefs That Will Affect Care: None Current Living Situation: Alone Other Information That Helps Us Care for You: No Feels Safe at Home: Yes Safety Concerns: Feels Safe At This Time Assistive Devices: None Review of Systems Review of Systems: As per HPI, all other systems reviewed and negative Physical Exam Physical Exam: GENERAL: Slightly uncomfortable, restless, no respiratory distress SKIN: Normal color, warm HEENT: Pale palpebral conjunctivae, no ptosis, dry buccal mucosa NECK : Supple, no tenderness CHEST : CTA, no tenderness HEART : RRR, no obvious murmurs ABDOMEN: Some distention, epigastric tenderness EXTREMITIES : No LE swelling/tenderness, no other conspicuous deformities noted NEUROLOGIC : Coherent, no facial asymmetry, no other gross focality Results & Data Results & Data Vital Signs (Past 12 Hours) Vital Signs Temp Pulse Pulse Resp BP BP Pulse Ox 12/03/23 23:00 82 145/84 H 12/03/23 22:00 97 H 18 145/84 H 97 12/03/23 21:39 98 H 12/03/23 20:58 87 18 138/84 92 12/03/23 19:38 92 12/03/23 17:58 109 H 12/03/23 17:41 36.4 C L 100 H 20 159/107 H 97 O2 Del Method 12/03/23 23:00 12/03/23 22:00 Room Air 12/03/23 21:39 12/03/23 20:58 Room Air 12/03/23 19:38 Room Air 12/03/23 17:58 12/03/23 17:41 Laboratory Results Laboratory Results WBC 8.58 K/ul (4.8-10.8) 12/03/23 18:15 RBC 4.55 M/uL (4.70-6.10) L 12/03/23 18:15 Hgb 14.7 g/dl (14.0-18.0) 12/03/23 18:15 Hct 42.2 % (42.0-52.0) 12/03/23 18:15 MCV 92.7 fL (80.0-100.0) 12/03/23 18:15 MCH 32.3 pg (25.0-34.0) 12/03/23 18:15 MCHC 34.8 g/dL (32.0-36.0) 12/03/23 18:15 RDW Std Deviation 60.9 fL (36.4-46.3) H 12/03/23 18:15 RDW Coeff of Joe 18.1 % (11.5-14.5) H 12/03/23 18:15 Plt Count 48 K/uL (130-400) L 12/03/23 18:15 MPV 10.4 fL (9.4-12.4) 12/03/23 18:15 Immature Gran % (Auto) 0.2 % 12/03/23 18:15 Neut % (Auto) 61.9 % 12/03/23 18:15 Lymph % (Auto) 26.8 % 12/03/23 18:15 Lewis % (Auto) 9.1 % 12/03/23 18:15 Eos % (Auto) 1.3 % 12/03/23 18:15 Baso % (Auto) 0.7 % 12/03/23 18:15 Neut # (Auto) 5.31 K/uL (1.40-6.50) 12/03/23 18:15 Lymph # (Auto) 2.30 K/uL (1.20-3.40) 12/03/23 18:15 Lewis # (Auto) 0.78 K/uL (0.11-0.59) H 12/03/23 18:15 Eos # (Auto) 0.11 K/uL (0.00-0.50) 12/03/23 18:15 Baso # (Auto) 0.06 K/uL (0.00-0.20) 12/03/23 18:15 Immature Gran # (Auto) 0.02 K/uL (0.01-0.20) 12/03/23 18:15 PT 16.4 Seconds (9.0-12.0) H 12/03/23 18:15 INR 1.6 (0.9-1.1) H 12/03/23 18:15 Sodium 142 mmol/L (136-145) 12/03/23 18:15 Potassium 3.8 mmol/L (3.5-5.1) 12/03/23 18:15 Chloride 104 mmol/L (98-107) 12/03/23 18:15 Carbon Dioxide 25 mmol/L (21-32) 12/03/23 18:15 Anion Gap 13 (3-11) H 12/03/23 18:15 BUN 8 mg/dl (6-23) 12/03/23 18:15 Creatinine 0.53 mg/dl (0.6-1.4) L 12/03/23 18:15 Est Cr Clr Drug Dosing Not Reportable 12/03/23 18:15 Est GFR ( Amer) > 150.0 ml/min 12/03/23 18:15 Est GFR (Non-Af Amer) 137.1 ml/min 12/03/23 18:15 BUN/Creatinine Ratio 15.1 (10-20) 12/03/23 18:15 Glucose 118 mg/dl (70-99(Fasting)) H 12/03/23 18:15 Calcium 8.8 mg/dl (8.6-10.3) 12/03/23 18:15 Magnesium 2.1 mg/dl (1.7-2.4) 12/03/23 18:15 Total Bilirubin 4.0 mg/dl (0.2-1.0) H 12/03/23 18:15 Direct Bilirubin 1.4 mg/dl (0-0.2) H 12/03/23 18:15 AST 246 U/L (13-39) H 12/03/23 18:15 ALT 134 U/L (7-52) H 12/03/23 18:15 Alkaline Phosphatase 98 U/L (34-104) 12/03/23 18:15 Total Protein 7.9 gm/dl (6.0-8.3) 12/03/23 18:15 Albumin 4.4 gm/dl (3.4-5.0) 12/03/23 18:15 Lipase 203 U/L (11-82) H 12/03/23 18:15 Ethyl Alcohol mg/dL 518.6 mg/dl (<10.0) H 12/03/23 18:15 CT abdomen pelvis: 1. Wall thickening of the ascending colon, concerning for colitis. 2. Hepatic steatosis, which is preferentially deposited across the portal system. (1) Alcohol withdrawal syndrome Complication of substance-induced condition: with unspecified complication Qualified Code(s): F10.939 - Alcohol use, unspecified with withdrawal, unspecified
[2023-12-03] MEDS ORDERED: LORazepam 2 MG/1 ML VIAL IV PRN ×3 (23:42)
[2023-12-03] MEDS ORDERED: Ativan IV Alcohol Withdrawal--Active Protocol IV PRN (23:42)
[2023-12-03] MEDS ORDERED: chlordiazePOXIDE ALCOHOL WITHDRAWL 25MG PO STA (23:42)
[2023-12-03] MEDS ORDERED: MoRPHine SULFATE 2 MG/ML CARP IV PRN (23:43)
[2023-12-03] MEDS ORDERED: oxyCODONE HCL IR 5 MG TAB (IMMEDIATE RELEASE) PO PRN (23:43)
[2023-12-03] MEDS ORDERED: PROMETHAZINE 6.25 MG/50.25 ML BAG IV PRN (23:43)
[2023-12-04] MEDS: chlordiazePOXIDE HCl 25 MG CAP PO SCH (00:15)
[2023-12-04] MEDS: PANTOprazole 80 MG in DEXTROSE 5% 100 ML IV STA (00:19)
[2023-12-04] MEDS: GABAPENTIN 300 MG CAP PO SCH ×2 (00:21→08:29)
[2023-12-04 00:36] LABS: Hematocrit (blood only) 41.9 % (42.0-52.0); Hemoglobin 14.4 g/dl (14.0-18.0)
[2023-12-04] MEDS: cefTRIAXone SODIUM 2,000 MG/50 ML BAG IV STA (00:49)
[2023-12-04] MEDS: MELATONIN 3 MG TAB PO SCH (00:57)
--- NOTE | 2023-12-04 01:14 | CT Scan Report ---
Exam(s): CT ABDOMEN + PELVIS With Contrast IV Amt: 90 ml opti 320 EXAM: CT Abdomen and Pelvis With Intravenous Contrast CLINICAL HISTORY: Reason for exam: abd pain. TECHNIQUE: Axial computed tomography images of the abdomen and pelvis with intravenous contrast. Automated exposure control was utilized for the study. A dose lowering technique was utilized adhering to the principles of ALARA. CONTRAST: Patient received 90 ml opti 320 of IV contrast COMPARISON: No relevant prior studies available. FINDINGS: Lung bases: Unremarkable. No mass. No consolidation. ABDOMEN: Liver: Hepatic steatosis, which is preferentially deposited across the portal system. Gallbladder and bile ducts: Cholelithiasis. No ductal dilation. Pancreas: Unremarkable. No mass. No ductal dilation. Spleen: Unremarkable. No splenomegaly. Adrenals: Unremarkable. No mass. Kidneys and ureters: Unremarkable. No solid mass. No hydronephrosis. Stomach and bowel: Wall thickening of the ascending colon, concerning for colitis. No obstruction. PELVIS: Appendix: No findings to suggest acute appendicitis. Bladder: Unremarkable. No mass. Reproductive: Unremarkable as visualized. ABDOMEN and PELVIS: Intraperitoneal space: Unremarkable. No free air. No significant fluid collection. Bones/joints: No acute fracture. No dislocation. Soft tissues: Unremarkable. Vasculature: Unremarkable. No abdominal aortic aneurysm. Lymph nodes: Unremarkable. No enlarged lymph nodes. IMPRESSION: 1. Wall thickening of the ascending colon, concerning for colitis. 2. Hepatic steatosis, which is preferentially deposited across the portal system. Electronically signed by: Wilder Montes MD 12/04/23 01:13 AM
[2023-12-04 02:20] LABS: Appearance Urine Clear (Clear); Bacteria Urine Automated None Seen (None Seen); Bilirubin Urine Negative (Negative); Blood Urine Negative (Negative); Cast Urine Automated 0-2 /lpf (0-2); Color Urine Dark Yellow; Epithelial Cell Urine Auto 0-2 /hpf (0-2); Glucose Urine UA Negative (Negative); Ketones Urine Negative (Negative); Leukocyte Esterase Urine Trace (Negative); Nitrite Urine Negative (Negative); Protein Urine Trace (Negative); Specific Gravity Urine > 1.045 (1.000-1.030); Urobilinogen Urine Positive (Negative); WBC Urine Automated 0-5 /hpf (0-5)
[2023-12-04 02:38] LABS: Amphetamines+Metham, Urine Neg (Neg); Barbiturates, Urine Neg (Neg); Benzodiazepine, Urine Neg (Neg); Cocaine, Urine Neg (Neg); Fentanyl, Urine Neg (Neg); MDMA (Ecstacy), Urine Neg (Neg); Marijuana, Urine Pos (Neg); Methadone, Urine Neg (Neg); Opiate, Urine Neg (Neg); Phencyclidine, Urine Neg (Neg)
[2023-12-04] MEDS: LACTATED RINGER'S 1,000 ML IV ONE (05:50)
[2023-12-04 07:15] LABS: Estimated Average Glucose 97 mg/dl
[2023-12-04] MEDS: VITAMIN B COMPLEX TAB PO SCH (08:29)
[2023-12-04] MEDS: nadoloL 40 MG TAB PO SCH (08:29)
[2023-12-04] MEDS: MULTIVITAMIN TAB PO SCH (08:29)
[2023-12-04] MEDS: FOLIC ACID 1 MG TAB PO SCH (08:29)
[2023-12-04] MEDS: PALIPERIDONE 3 MG TABCR PO SCH (08:29)
[2023-12-04] MEDS: PANTOprazole 40 MG in SYRINGE 0 ML IV SCH (08:29)
[2023-12-04] MEDS: THIAMINE HCL 100 MG TAB PO SCH (08:29)
[2023-12-04] MEDS: NICOTINE 14 MG/24 HR PATCH TD SCH (08:31)
[2023-12-04] MEDS ORDERED: MULTIVITAMIN TAB PO SCH (09:00)
--- NOTE | 2023-12-04 10:04 | Gastrointestinal Consultation ---
Date of Consultation December 04, 2023 Assessment & Plan (1) Alcohol withdrawal syndrome: 33 year old male with history of hyperlipidemia, lung nodules, ETOH abuse, compression fracture L1 lumbar vertebrae and T12 vertebrae, obsessive-compulsive disorder, medical marijuana use, cirrhosis and others below admitted through the ED with ETOH withdrawal and detox request. Lipase 203 - Lipase elevation - Pain free, normal appearing pancreas on CT, lipase elevation not consistent with pancreatitis - Coffee ground specks in emesis follow by bilious emesis - Has remained hemodynamically stable - HGB stable - EGD 10/2023 w/o varices, but erosions were noted in the esophagus - Suspected this isolated episode was related to esophagitis/esophageal erosions - No plan for inpatient EGD if remains clinically stable - Trend H&H - Monitor and document GI output - Transfuse PRN - Agree w/ IV PPI BID x 48 hours then may convert to PO PPI - ETOH abuse, ETOH cirrhosis, ETOH hepatitis - MELD 17 - DF 24.2 - Strict ETOH cessation - ETOH withdrawal protocol - Encouraged ETOH rehabilitation programs - MELD labs every 6 months - ABD imaging w/ AFP every 6 months - No NSAIDs - Avoid hepatotoxin - Low NA diet, less than 2G daily - Less than 2G acetaminophen containing products daily - HCC screening due February 2024 - Varices screening due 2025 - Immunizations: status unknown I spent a total of 60 minutes on the date of service in review of patient's record, and previously obtained information in person and appropriate medical visit, discussion and education of plan, with patient and/or caregiver, placing orders for tests/referral/procedures as medically necessary and documentation of pertinent clinical information in patient's medical records for their visit today.Thank you for allowing us to participate in the care of this patient. Please call with any acute changes, questions or concerns. Please see addendum below with additional recommendation from my supervising physician. Supervising Physician Co-Signing Physician Notes I examined the patient and reviewed patient's chart , laboratory data and imaging studies. I agree with with assessment and plan of care as suggested by advanced practice provider. Vomiting is resolving. Likely secondary to alcohol intoxication. Minor elevation of lipase with normal-appearing pancreas on CT scan, acute pancreatitis unlikely. The patient denies abdominal pain. Okay to advance diet. Continue to observe. Defer upper endoscopy at present. If stable okay to discharge from GI standpoint tomorrow History of Present Illness Attending Physician: Courtney Cho MD History of Present Illness 33 year old male with history of hyperlipidemia, lung nodules, ETOH abuse, compression fracture L1 lumbar vertebrae and T12 vertebrae, obsessive-compulsive disorder, medical marijuana use, cirrhosis and others below admitted through the ED with ETOH withdrawal and detox request. GI was asked to evaluate for pancreatitis. Pt was seen and evaluated, chart reviewed. He is awake, alert and oriented providing appropraite history. Notes this AM he feels well. Denies any abdominal pain, nausea/vomiting. Is hungry. Suggests last BM was prior to arrival. Denies any black or bloody stools. He does recall yesterday he had an episode of nausea/vomiting and he had noted a few "specks" of coffee ground appearing emesis at that time. This occurred x 1. Notes emesis after this event was just bilious. He has remained hemodynamically stable w/ H&H 14.4/41.9 with normal BUN. Lipase 203 CTAP 2023: Pancreas: Unremarkable. No mass. No ductal dilation. Wall thickening of the ascending colon, concerning for colitis.. Hepatic steatosis, which is preferentially deposited across the portal system. Diagnosis: ETOH induced cirrhosis, last ETOH use on 10/13/23 Decompensations Varices: grade 1, 08/2023 on nadolol 40 mg once daily repeat EGD 10/2023 w/o varices Ascites: none HE: none Screenings: MELD: 17 Maddrey: 24.2 HCC: due February 2024 Varices: 2025 Immunizations: status unknown EGD 10/2023: - Normal examined duodenum. - Eroded mucosa in the esophagus. - Congestive gastropathy. - No specimens collected. EGD 08/2023: - Grade I esophageal varices. - Small hiatal hernia. - Portal hypertensive gastropathy. Biopsied. - Normal examined duodenum. Allergies Allergy/AdvReac Type Severity Reaction Status Date / Time No Known Allergies Allergy Verified 12/03/23 21:31 Home Medications Medication Instructions Recorded Confirmed Type celecoxib 200 mg capsule 200 mg PO QAM 10/14/23 12/03/23 History folic acid 1 mg tablet 1 mg PO QAM 10/14/23 12/03/23 History furosemide 20 mg tablet 20 mg PO DAILY PRN .leg swelling 10/14/23 12/03/23 History gabapentin 300 mg capsule 300 mg PO QAM 10/14/23 12/03/23 History gabapentin 300 mg capsule 600 mg PO QPM 10/14/23 12/03/23 History melatonin 10 mg tablet 20 mg PO HS 10/14/23 12/03/23 History multivitamin 1 tab PO DAILY 10/14/23 12/03/23 History nadolol 40 mg tablet 40 mg PO QAM 10/14/23 12/03/23 History paliperidone 9 mg tablet,extended 9 mg PO QAM 10/14/23 12/03/23 History release 24 hr vitamin B complex 1 tab PO DAILY 10/14/23 12/03/23 History magnesium chloride 64 mg 64 mg PO BID #60 tabs 10/16/23 12/03/23 Rx (magnesium chloride) tablet pantoprazole 40 mg tablet,delayed 40 mg PO BID #60 tabs 10/16/23 12/03/23 Rx release Patient History Medical History HTN (hypertension) Thrombocytopenia OCD (obsessive compulsive disorder) Insomnia Bipolar 1 disorder Tobacco abuse Alcohol dependence Compression fracture of T12 vertebra Compression fracture of L1 lumbar vertebra Hepatosplenomegaly Mixed hyperlipidemia Alcohol abuse Surgical History Hx of tonsillectomy Hx of colonoscopy 2015, WNL, internal hemorrhoids Social History Smoking Status: Current every day smoker Tobacco Type: Cigarettes Cigarettes Per Day: 10; Do You Dip or Chew Tobacco: No; Hx Alcohol Use: Yes Alcohol type: hard liquor Hx Substance Use: Yes Last Used Substance: Hours (ago) Preferred Language: Kenyan Communication Ability: Effective Cushion Worker Required: No Beliefs That Will Affect Care: None Current Living Situation: Alone Other Information That Helps Us Care for You: No Feels Safe at Home: Yes Safety Concerns: Feels Safe At This Time Assistive Devices: None Review of Systems Review of Systems: All other findings negative except as noted in HPI. Physical Exam Constitutional: WD/WN, vitals as above Respiratory: normal respiratory effort, lungs clear to auscultation Cardiovascular: Rate/Rhythm: regular rate and regular rhythm Gastrointestinal (Abdomen): normal bowel sounds, soft, nontender, no hepatosplenomegaly Skin: no rashes, warm and dry Results & Data Vital Signs (Past 12 Hours) Vital Signs Temp Pulse Pulse Resp BP BP Pulse Ox 12/04/23 08:01 59 L 12/04/23 07:43 36.7 C 76 18 109/62 95 12/04/23 04:31 69 12/04/23 04:31 36.9 C 65 18 128/72 12/04/23 03:30 36.7 C 83 18 128/83 94 12/04/23 01:41 78 12/04/23 01:18 72 124/72 12/04/23 01:00 77 18 114/68 95 12/03/23 23:00 82 145/84 H 12/03/23 22:00 97 H 18 145/84 H 97 O2 Del Method 12/04/23 08:01 12/04/23 07:43 Room Air 12/04/23 04:31 12/04/23 04:31 Room Air 12/04/23 03:30 Room Air 12/04/23 01:41 12/04/23 01:18 12/04/23 01:00 Room Air 12/03/23 23:00 12/03/23 22:00 Room Air Laboratory Results 12/04/23 12/03/23 12/03/23 Range/Units 01:45 23:58 18:15 WBC 8.58 (4.8-10.8) K/ul RBC 4.55 L (4.70-6.10) M/uL Hgb 14.4 14.7 (14.0-18.0) g/dl Hct 41.9 L 42.2 (42.0-52.0) % MCV 92.7 (80.0-100.0) fL MCH 32.3 (25.0-34.0) pg MCHC 34.8 (32.0-36.0) g/dL RDW Std Deviation 60.9 H (36.4-46.3) fL RDW Coeff of Joe 18.1 H (11.5-14.5) % Plt Count 48 L (130-400) K/uL MPV 10.4 (9.4-12.4) fL Immature Gran % (Auto) 0.2 % Neut % (Auto) 61.9 % Lymph % (Auto) 26.8 % Union % (Auto) 9.1 % Eos % (Auto) 1.3 % Baso % (Auto) 0.7 % Neut # (Auto) 5.31 (1.40-6.50) K/uL Lymph # (Auto) 2.30 (1.20-3.40) K/uL Union # (Auto) 0.78 H (0.11-0.59) K/uL Eos # (Auto) 0.11 (0.00-0.50) K/uL Baso # (Auto) 0.06 (0.00-0.20) K/uL Immature Gran # (Auto) 0.02 (0.01-0.20) K/uL PT 16.4 H (9.0-12.0) Seconds INR 1.6 H (0.9-1.1) Sodium 142 (136-145) mmol/L Potassium 3.8 (3.5-5.1) mmol/L Chloride 104 (98-107) mmol/L Carbon Dioxide 25 (21-32) mmol/L Anion Gap 13 H (3-11) BUN 8 (6-23) mg/dl Creatinine 0.53 L (0.6-1.4) mg/dl Est Cr Clr Drug Dosing Not Reportable Est GFR ( Amer) > 150.0 ml/min Est GFR (Non-Af Amer) 137.1 ml/min BUN/Creatinine Ratio 15.1 (10-20) Glucose 118 H (70-99(Fasting)) mg/dl Estimat Average Glucose 97 mg/dl Hemoglobin A1c 5.0 (4.5-5.6) % Calcium 8.8 (8.6-10.3) mg/dl Magnesium 2.1 (1.7-2.4) mg/dl Total Bilirubin 4.0 H (0.2-1.0) mg/dl Direct Bilirubin 1.4 H (0-0.2) mg/dl AST 246 H (13-39) U/L ALT 134 H (7-52) U/L Alkaline Phosphatase 98 (34-104) U/L Total Protein 7.9 (6.0-8.3) gm/dl Albumin 4.4 (3.4-5.0) gm/dl Lipase 203 H (11-82) U/L Urine Color Dark Yellow Urine Appearance Clear (Clear) Urine pH 8.0 H (4.5-7.5) Ur Specific [place] > 1.045 H (1.000-1.030) Urine Protein Trace H (Negative) Urine Glucose (UA) Negative (Negative) Urine Ketones Negative (Negative) Urine Blood Negative (Negative) Urine Nitrite Negative (Negative) Urine Bilirubin Negative (Negative) Urine Urobilinogen Positive H (Negative) Ur Leukocyte Esterase Trace H (Negative) Urine WBC (Auto) 0-5 (0-5) /hpf Urine RBC (Auto) 6-10 H (0-2) /hpf U Hyaline Cast (Auto) 0-2 (0-2) /lpf U Epithel Cells (Auto) 0-2 (0-2) /hpf Urine Bacteria (Auto) None Seen (None Seen) Urine Opiates Screen Neg (Neg) Ur Methadone, Qual Neg (Neg) Urine Fentanyl Screen Neg (Neg) Urine Barbiturates Neg (Neg) Ur Phencyclidine (PCP) Neg (Neg) U Amphetamin/Meth Scrn Neg (Neg) MDMA (Ecstasy) Screen Neg (Neg) U Benzodiazepines Scrn Neg (Neg) Ur Cocaine Metabolite Neg (Neg) U Marijuana (THC) Screen Pos H (Neg) U Marijuana THC Carboxy Pending Drug Screen Comment Pending Ethyl Alcohol mg/dL 518.6 H (<10.0) mg/dl Blood Type A Positive Antibody Screen NEGATIVE PG Care Time/CCT Total # of Minutes Spent Total Time Spent with Patient: Total time spent is greater than 50% in coordination of care (as documented) at patient's floor/unit and/or counseling patient: Coding Level of Care Code 43348 IN/OBS CONSULT LVL 4,60M Diagnoses Alcohol withdrawal syndrome F10.939 Complication of substance-induced condition: with unspecified complication (1) Alcohol withdrawal syndrome Complication of substance-induced condition: with unspecified complication Qualified Code(s): F10.939 - Alcohol use, unspecified with withdrawal, unspecified
--- OUTSIDE RECORDS SUMMARY | 2023-12-04 11:31 | External Medical Summary | Summary of Care ---
Author Name Unknown Organization [facility] Address [address] [place] [address] Phone [phone] Care Team Providers Care Laborer [employer] Name Role Phone Tami Upton MD Primary Care Provi elena Reason for Referral * Precert (Within 10 days (routine)) - Pending Review Specialty Diagnoses / Procedures Referred By Contac t Referred To Contact Pain Medicine Diagnoses Spondylosis of lumbar region without myelopathy or radiculopathy Procedures DESTROY LUMBAR SACRAL NERVE IMAGING ADD'L Manuel Bashir DO [address] [place] [address] Referral ID Status Reason Start Date Expiration Date V isits Requested Visits Authorized [id number] Pending Review 11/26/2023 999 999 * Precert (Within 10 days (routine)) - Pending Review Specialty Diagnoses / Procedures Referred By Contac t Referred To Contact Pain Medicine Diagnoses Spondylosis of lumbar region without myelopathy or radiculopathy Procedures DESTROY LUMBAR SACRAL NERVE IMAGING SINGLE Manuel Bashir DO [address] [place] [address] Referral ID Status Reason Start Date Expiration Date V isits Requested Visits Authorized [id number] Pending Review 11/26/2023 999 999 Reason for Visit * Reason Onset Date Comments Follow Up 11/25/2023 Encounter Details Date Type Department Care Team (Late st Contact Info) Description 11/25/2023 11:00 AM EDT Scheduled [facility] [address] [place] [address] Ricki Nurse Phone Call Interventional Pain [facility] [address] [place] [place] [address] Spondylosis of lumbar region without myelopathy or radiculopathy* Allergies No known active allergiesdocumented as of this encounter (statuses as of 11/25/2023) Medications Medication Sig Dispensed Refills Start Date [...] the morning. 20 Capsule 2 09/17/2023 Active Additional Information Patient taking differently:200 mg Oral Daily(AM),As needed, Reported on 10/29/2023 Omeprazole 20 MG Oral Capsule Delayed Release (PriLOSEC) Take 1 Capsule by mouth in the morning. Active Furosemide 20 MG Oral Tablet (Lasix)Indications: Bilateral leg edema Take 1 Tablet by mouth daily as needed (Leg swelling). 30 Tablet 2 09/26/2023 Active Paliperidone ER 9 MG Oral Tablet Extended Release 24 Hour (Invega)Indications :Other insomnia,Bipolar affective disorder, current episode mixed, current episode severity unspecified (HCC) Take 1 Tablet by mouth in the morning. 90 Tablet 3 09/26/2023 Active Nadolol 40 MG Oral Tablet (Corgard) Take 1 Tablet by mouth in the morning. 90 Tablet 1 09/26/2023 Active Pantoprazole Sodium 40 MG Oral Tablet Delayed Release (Protonix) Take 1 Tablet by mouth in the morning and 1 Tablet before bedtime. 10/16/2023 Active chlordiazePOXIDE HCl 5 MG Oral Capsule (Librium) Take 1 Capsule by mouth 3 times a day as needed for Anxiety. Take 10mg Breakfast, lunch and dinner on 10/16 Take 5 mg breakfast and dinner on 10/17 Active Vitamin B Complex Oral Tablet Take 1 Tablet by mouth in the morning. Active Magnesium Chloride 64 MG Oral Tablet Delayed Release (Mag-64) Take 1 Tablet by mouth in the morning and 1 Tablet before bedtime. Active documented as of this encounter (statuses as of 11/25/2023) Active Problems Problem Noted Date Diagnosed Date [...] as of this encounter (statuses as of 11/25/2023) Resolved Problems Problem Noted Date Diagnosed Date [...] as of this encounter (statuses as of 11/25/2023) Immunizations Name Administration Dates Next Due DTaP Dipth/Tet/Acell Pertussis (Infanrix), Peds 08/22/1993,02/19/1990,03/27/1989,1988,1988 HIB PRP-T, 4 Dose, PF, IM (H iberix, ActHib) 11/27/1989 Hepatitis B, 0-19 yrs 10/11/1998,03/21/1998,01/02 MMR - Measles/Mumps/Rubella Vaccine 08/22/1993,1 OPV - Polio Virus Vaccine (Oral) 994,02/19/1990,1988,1988 Pneumococcal Conjugate Vacci ne, 20-valent (Vflarvs23) 01/31/2023 Seasonal Influenza, PF, 6 M & above, IM , (FluLaval or Fluzone) 11/24/2022 TB Angelica Test 06/10/1989 TD - Tetanus/Diptheria (ADULT) 07/08/2003 TDAP (age 10 and older)(Boostrix) 01/31/2023 TDAP, Age 7 and older, IM (Adacel) 08/08/2011 documented as of this encounter Social History Tobacco Use Types Packs/Day Years Used Date Smoking Tobacco: Every Day Cigarettes 0.5 20.7 Started: 2003 Smokeless Tobacco: Never Alcohol Use [...] No 10/26/2022 Does the household have a [facility] source of income? (Household - for ages 0-17 years) Not on file 10/26/2022 Social Connections Answer Date Recorded How often do you feel lonely or isolated from those around you? (Adult - for ages 18 years and over) Not on file 10/30/2023 Financial Resource Strain Answer Date R ecorded [...] years and over) Not on file 03/29/2023 READ ONLY Do you think you [...] encounter Miscellaneous Notes * Addendum Note - Manuel Bashir DO - 11/25/2023 3:25 PM EDTAddended by: MANUEL BASHIR on: 11/25/2023 03:25 PM Modules accepted: Orders * Telephone Encounter - Katty Singh LPN - 11/25/2023 10:16 AM EDT B/L Block of the T12, L1 and L2 medial branch nerves on 11/22/23 100% improvement for 12hrs. Pain level 0/10. No difficulty with activities. documented in this encounter Plan of Treatment Upcoming Encounters Date Type Department Care Team (Latest Contact Info) Description 12/12/2023 7:45 AM EDT Telemedicine Orthopaedics [facility] [address] [place] [address] Iván Vyas MD [address] [place] [phone] 12/24/2023 1:40 PM EDT Telemedicine Hepatology, [facility] [address] [place] [address] Katty Hernandes, DO [address] [place] [address] 02/14/2024 1:50 PM EST Hospital Encounter OR [facility], Operating Room [facility] [address] [place] [address] Manuel Bashir, DO [address] [place] [address] 02/14/2024 1:50 PM EST - 02/14/2024 2:15 PM EST Surgery OR [facility], Operating Room [facility] [address] [place] [address] Manuel Bashir, DO [address] [place] [address] L-/S-SPINE PARAVERTEBRAL FACET INJ, 1 LEVEL Scheduled Orders Name Type Priority Associated Diagnoses Orde r Schedule DESTROY LUMBAR SACRAL NERVE IMAGING SINGLE Procedures Routine Spondylosis of lumbar region without myelopathy or radiculopathy Expected: 11/26/2023, Expires: 02/24/2024 DESTROY LUMBAR SACRAL NERVE IMAGING ADD'L Procedures Routine Spondylosis of lumbar region without myelopathy or radiculopathy Expected: 11/26/2023, Expires: 02/24/2024 Scheduled Procedures Name Priority Associated Diagnoses Date/Ti me L-/S-SPINE PARAVERTEBRAL FAC ET INJ, 1 LEVEL Spondylosis of lumbar region without myelopathy or radiculopathy 02/14/2024 1:50 PM EST L-/S-SPINE PARAVERTEBRAL FAC ET INJ, 2 LEVELS Spondylosis of lumbar region without myelopathy or radiculopathy 02/14/2024 1:50 PM EST ESOPHAGOGASTRODUODENOSCOPY ( EGD), FLEXIBLE, TRANSORAL, ENDOSCOPIC ULTRASOUND Recall Alcohol abuse Hepatic fibrosis ESOPHAGOGASTRODUODENOSCOPY ( EGD), FLEXIBLE, TRANSORAL, DIAGNOSTIC Recall Alcohol abuse Hepatic fibrosis Health Maintenance Due Date Last Done Comments Depression Screening 08/05/2015 08/04/2014 COVID-19 Vaccine ( season) 2023 Influenza Vaccine (FLU shot) (#1) 2023 11/24/2022 Diabetes Screening 09/16/2026 09/17/2023, 0 09/11/2023, 2023, Additional history exists DTap/Tdap Vaccines (8 - Td or Tdap) 01/31/2033 [...] or radiculopathy- Primary Lumbosacral spondylosis without myelopathy Spondylosis of lumbar [...] Advance Directives occurred with: Patient Care Teams [employer] Relationship Specialty Start Date End Date Tami Upton MD [address] [place] [phone] PCP - General Family Medicine 11/12/23 documented as of this encounter
--- OUTSIDE RECORDS SUMMARY | 2023-12-04 11:31 | External Medical Summary | Summary of Care ---
Author Name Unknown Organization [facility] Address [address] [place] [address] Phone [phone] Care Team Providers Care Flower Arranger Name Role Phone Tami Upton MD Primary Care Provi elena Reason for Visit * Reason Onset Date Comments Follow Up 11/25/2023 Encounter Details Date Type Department Care Team (Late st Contact Info) Description 11/25/2023 11:00 AM EDT Scheduled Telephone Interventional Pain Center, [facility] [address] [facility] [place] [address] Nurse Ricki Phone Call Interventional Pain [facility] [address] [facility] [address] Arrived Allergies No known active allergiesdocumented as [...] 11/25/2023) Immunizations Name Administration Dates Next Due Pneumococcal [...] encounter Miscellaneous Notes * Telephone Encounter - Katty Singh LPN - 11/25/2023 10:16 AM EDT B/L Block of the T12, L1 and L2 medial branch nerves on 11/22/23 100% improvement for 12hrs. Pain level 0/10. No difficulty with activities. documented in this encounter Plan of Treatment Upcoming Encounters Date Type Department Care Team (Latest Contact Info) Description 12/12/2023 7:45 AM EDT Telemedicine Orthopaedics [facility] [address] [place] [address] Iván Vyas MD [address] [place] [phone] 12/24/2023 1:40 PM EDT Telemedicine Hepatology, [facility] [address] [place] [address] Katty Hernandes DO [address] [place] [address] 02/14/2024 1:50 PM EST Hospital Encounter OR [facility], Operating Room [facility] [address] [place] [address] Manuel Bashir, DO [address] [place] [address] 02/14/2024 1:50 PM EST - 02/14/2024 2:15 PM EST Surgery OR [facility], Operating Room [facility] [address] [place] [address] Manuel Bashir, DO [address] [place] [address] L-/S-SPINE PARAVERTEBRAL FACET INJ, 1 LEVEL Scheduled [...] Advance Directives occurred with: Patient Care Teams Flower Arranger Relationship Specialty Start Date End Date Tami Uptno MD [address] [place] [phone] PCP - General Family Medicine 11/12/23 documented as of this encounter
--- OUTSIDE RECORDS SUMMARY | 2023-12-04 11:31 | External Medical Summary | Summary of Care ---
Author Name Unknown Organization [facility] Address [address] [place] [address] Phone [phone] Care Team Providers Care Vamp Maker Name Role Phone Tami Upton MD Primary Care Provi elena Reason for Visit * Reason Onset Date Comments Pre Op Discussion 08/26/2023 Encounter Details Date Type Department Care Team (Late st Contact Info) Description 08/26/2023 Telephone OR [facility], Operating Room [facility] [address] [place] [phone] Scott Morillo, [address] [place] [address] Pre Op Discussion Allergies No known active allergiesdocumented as of [...] and 1 Capsule before bedtime. 08/26/2023 Active Nadolol 40 MG Oral Tablet (Corgard) Take 1 Tablet by mouth in the morning. 09/26/2023 Discontinued (Refill) documented as of this [...] Description 12/12/2023 7:45 AM EDT Telemedicine Orthopaedics [facility] [address] [place] [address] Iván Vyas MD [address] [place] [phone] 12/24/2023 1:40 PM EDT Telemedicine Hepatology, [facility] [address] [place] [address] Katty Hernandes, DO [address] [place] [address] 02/14/2024 1:50 PM EST Hospital Encounter OR [facility], Operating Room [facility] [address] [place] [address] Manuel Bashir, DO [address] [place] [address] 02/14/2024 1:50 PM EST - 02/14/2024 2:15 PM EST Surgery OR [facility], Operating Room [facility] [address] [place] [address] Manuel Bashir, DO [address] [place] [address] L-/S-SPINE PARAVERTEBRAL FACET INJ, 1 LEVEL Scheduled Procedures Name Priority Associated Diagnoses Date/Ti me L-/S-SPINE PARAVERTEBRAL FAC ET INJ, 1 LEVEL Spondylosis of lumbar region without myelopathy or radiculopathy 02/14/2024 1:50 PM EST L-/S-SPINE PARAVERTEBRAL FAC ET INJ, 2 LEVELS Spondylosis of lumbar region without myelopathy or radiculopathy 02/14/2024 1:50 PM EST DESTROY LUMBAR SACRAL NERVE IMAGING SINGLE Spondylosis of lumbar region without myelopathy or radiculopathy DESTROY LUMBAR SACRAL NERVE IMAGING ADD'L Spondylosis of lumbar region without myelopathy or radiculopathy ESOPHAGOGASTRODUODENOSCOPY ( EGD), FLEXIBLE, TRANSORAL, ENDOSCOPIC ULTRASOUND [...] Advance Directives occurred with: Patient Care Teams Vamp Maker Relationship Specialty Start Date End Date Tami Upton MD [address] [place] [phone] PCP - General Family Medicine 11/12/23 documented as of this encounter
--- OUTSIDE RECORDS SUMMARY | 2023-12-04 11:31 | External Medical Summary | Summary of Care ---
Author Name Unknown Organization [facility] Address [address] [place] [address] Phone [phone] Care Team Providers Care Sales Representative Business Courses Name Role Phone Tami Upton MD Primary Care Provi elena Reason for Visit * Reason Onset Date Comments Advice 08/19/2023 Encounter Details Date Type Department Care Team ([facility] st Contact Info) Description 08/19/2023 Telephone Family Practice [address] [phone] Tami Upton MD [address] [place] [phone] Advice Allergies No known active allergiesdocumented as of this encounter (statuses as of 11/18/2023) Medications Medication Sig Dispensed Refills Start Date [...] and 10 mL before bedtime. 08/15/2023 Active documented as of this encounter (statuses as of 11/18/2023) Active Problems Problem Noted Date Diagnosed Date [...] as of this encounter (statuses as of 11/18/2023) Resolved Problems Problem Noted Date Diagnosed Date [...] as of this encounter (statuses as of 11/18/2023) Immunizations Name Administration Dates Next Due Pneumococcal [...] encounter Miscellaneous Notes * Telephone Encounter - Katy Bowen OSA - 08/19/2023 3:43 PM EDT Patient calling in wanting to schedule appt with provider to discuss what the plan will be moving forward since the biopsy appt was cancelled, he does not want to wait until December to see a provider. Mentioned that he was just seen in the hospital. Attempted to look for an appt with Coy carmona but nothing available to offer. documented in this encounter Plan of Treatment Upcoming Encounters Date Type Department Care Team (Latest Contact Info) Description 11/22/2023 1:10 PM EDT Hospital Encounter OR [facility], Operating Room [facility] [address] [phone] Gregory Lima MD [address] [place] [address] 11/22/2023 1:10 PM EDT - 11/22/2023 1:30 PM EDT Surgery OR [facility], Operating Room [facility] [address] [phone] Gregory Lima MD [address] [place] [address] L-/S-SPINE PARAVERTEBRAL FACET INJ, 1 LEVEL 12/12/2023 7:45 AM EDT Telemedicine Orthopaedics [facility] [address] [address] Iván Vyas MD [address] [place] [phone] 12/24/2023 1:40 PM EDT Telemedicine Hepatology, [facility] [address] [place] [address] Katty Hernandes, DO [address] [place] [address] 02/14/2024 1:50 PM EST Hospital Encounter OR [facility], Operating Room [facility] [address] [place] [phone] Manuel Bashir, DO [address] [place] [address] 02/14/2024 1:50 PM EST - 02/14/2024 2:15 PM EST Surgery OR [facility], Operating Room [facility] [address] [place] [phone] Manuel Bashir, DO [address] [place] [address] L-/S-SPINE PARAVERTEBRAL FACET INJ, 1 LEVEL Scheduled [...] Advance Directives occurred with: Patient Care Teams Sales Representative Business Courses Relationship Specialty Start Date End Date Tami Upton MD [address] [place] [phone] PCP - General Family Medicine 11/12/23 documented as of this encounter
--- OUTSIDE RECORDS SUMMARY | 2023-12-04 11:31 | External Medical Summary | Summary of Care ---
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 [M47.816] Procedures L-/S-SPINE PARAVERTEBRAL FACET INJ,1 LEVEL L-/S-SPINE PARAVERTEBRL FACET INJ,2 LEVELS L-/S-SPINE PARAVERTEBRAL FACET INJ, 1 LEVEL L-/S-SPINE PARAVERTEBRAL FACET INJ, 2 LEVELS Gregory Lima MD [address] [place] [address] [facility] [address] [facility] [place] [phone] Referral ID Status Reason Start Date Expiration Date Visits Re quested Visits Authorized [id number] Encounter Details Date Type Department Care Team (Late st Contact Info) Description 11/22/2023 12:47 PM EDT - 11/22/2023 1:51 PM EDT Hospital Encounter OR [facility], Operating Room [facility] [address] [facility] [address] [place] [phone] Gregory Lima MD [address] [place] [address] Discharge Disposition: Home - Self Care Allergies No known active allergiesdocumented as of this encounter (statuses as of 11/23/2023) Medications Medication Sig Dispensed Refills Start Date [...] as of this encounter (statuses as of 11/23/2023) Active Problems Problem Noted Date Diagnosed Date [...] as of this encounter (statuses as of 11/23/2023) Resolved Problems Problem Noted Date Diagnosed Date [...] as of this encounter (statuses as of 11/23/2023) Immunizations Name Administration Dates Next Due Pneumococcal [...] Sign Reading Time Taken Comments Blood Pressure 137/71 11/22/2023 1:46 PM EDT Pulse 64 11/22/2023 1:46 PM EDT Temperature 36.1 C (97 F) 11/22/2023 1:22 PM EDT Respiratory Rate 14 11/22/2023 1:46 PM EDT Oxygen Saturation 98% 11/22/2023 1:46 PM EDT Inhaled Oxygen Concentration - - Weight - - Height - - Body Mass Index - - documented in this encounter Discharge Instructions * Discharge Instr - AVS* Gregory Lima MD - 11/22/2023 1:05 PM EDT Discharge Date: 11/22/2023 Check your Patient Education Brochure for further information. If you have any further questions call your physician at [phone]. The information below provides you with the instructions and the list of medications you need to betaking following discharge from the hospital. If you have any questions, please ask before leaving.If you have questions after you leave, you can reach us at the number above. You had the following procedure performed: Lumbar medial branch nerve block Wound Care: You may shower normally, but be sure to keep the injection site clean and dry. No soaking in a bathfor 48 hours. Activity: You may resume your regular diet as tolerated. Return to normal activities slowly as tolerated. Walking is very important for healing and your rehabilitation. Initially, you should walk at least two to three times daily. Then slowly and gradually increase your distance as your tolerance for physical activity increases. You may go up and down stairs carefully. You may resume home medications. If you received sedation, for the next 24 hours, you should NOT: Drive a vehicle, operate power machinery or power equipment Drink alcoholic beverages, including beer Make important decisions, such as signing contracts, etc. Notify physician for: Temperature greater than 101 degrees F. Increased pain. Calf swelling or tenderness. Drainage or redness of the incision. Chest pain or shortness of breath (and go to the Emergency Department) Date you may return to work or school: today documented in this encounter H&P Notes * Gregory Lima MD - 11/22/2023 1:03 PM EDT Subjective: Thank you for the opportunity to see your patient. As you know Esdras Storey is a 33 year old male who presents to our clinic with a chief complaint of No chief complaint on file. 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 (Adult - for ages 18 years and over): Not on file Housing Stability: High Risk (03/29/2023) Housing Stability Do you currently live in a mcc or have no steady place to sleep at night? (Adult - for ages 18 years and over): Not on file Do you think you are at risk [...] LMBB with steroid in anticipation of RFA documented in this encounter Nursing Notes * Gretta Fox RN - 11/22/2023 1:49 PM EDT Patient tolerated pain injection well. Ready for discharge to home. * Aaliyah Sood RN - 11/22/2023 1:42 PM EDT Band aid applied to area. Patient transferred to PACU 11 via wheelchair * Aaliyah Sood RN - 11/22/2023 1:38 PM EDT Patient tolerating pain management injection well. documented in this encounter OR Notes * OR Surgeon - Gregory Lima MD - 11/22/2023 1:04 PM EDT Procedure Note: Lumbar Medial Branch Block Procedure Date: 11/22/2023 Esdras Storey Date of : 1990 Physician: Sathish Lima M.D. PREOPERATIVE DIAGNOSIS: Lumbar Spondylosis POSTOPERATIVE DIAGNOSIS: Same PROCEDURE PERFORMED: Block of the T12, L1 and L2 medial branch nerves. SIDE: Bilateral ESTIMATED BLOOD LOSS: None SPECIMENS AND DRAINS: None FLUOROSCOPY WAS USED. INDICATIONS FOR PROCEDURE: This is a 33 year old year old male with a clinical picture consistent with lumbar spondylosis presenting for diagnostic medial branch block at the levels noted above to assess if there is a facetogenic component to the pain. PROCEDURE AND FINDINGS: The patient was greeted in the pre procedure holding area. The risk, benefits and alternatives to the procedure were again reviewed with the patient and written informed consent was placed in the chart. Prior to the procedure a time out was completed, verifying correct patient, procedure, site, positioning, and implants and/or special equipment. The patient was taken to the procedure room and positioned prone on the fluoroscopy table. A jinriksha driver film was taken to identify the correct levels. The skin was prepped and draped in the usual sterile fashion. The overlying skin and subcutaneous tissue was anesthetized using a 25-gauge 1-1/2 inch needle with 1% buffered lidocaine for a total volume of 0.5 mL per level. Then a 22-gauge 3.5 inch Quincke spinal needle was advanced under fluoroscopic guidance using an oblique view to the junction of the superior articular process and transverse process of T12, L1 and L2 on the bilateral. Then 0.25%bupivacaine times 0.5 ml per level was injected through each needle with 6.7 mg kenalog. The needles were then restyletted and removed. The needle insertion site was dressed appropriately. The patient was taken to the recovery room where he was monitored for a brief period of time. He tolerated the procedure well and was discharged home in stable condition with post procedural instructions. Follow-up will be in clinic, and further interventions will be determined after discussion. COMPLICATIONS: None Comment(s): documented in this encounter Plan of Treatment Upcoming Encounters Date Type Department Care Team (Late st Contact Info) Description 12/12/2023 7:45 AM EDT Telemedicine Orthopaedics [facility] [address] [address] Iván Vyas MD [address] [place] [phone] 12/24/2023 1:40 PM EDT Telemedicine Hepatology, [facility] [address] [address] Katty Hernandes, [address] [place] [address] 12/30/2023 2:00 PM EDT Scheduled Telephone Interventional Pain Center, [facility] [address] [address] Ricki Nurse Phone Call Interventional Pain [facility] [[email or web address]] [address] [place] [address] 02/14/2024 1:50 PM EST Hospital Encounter OR [facility], Operating Room [facility] [address] [phone] Manuel Bashir, [address] [place] [address] 02/14/2024 1:50 PM EST - 02/14/2024 2:15 PM EST Surgery OR [facility], Operating Room [facility] [address] [place] [phone] Manuel Bashir, [address] [place] [address] L-/S-SPINE PARAVERTEBRAL FACET INJ, 1 LEVEL [...] Procedure Name Priority Date/Time Associated Diagnosis Comments FLUORO INTERVENTIONAL PAIN PROCEDURE NONBILLABLE Routine 11/22/2023 1:45 PM EDT documented in this encounter Results * FLUORO INTERVENTIONAL PAIN PROCEDURE NONBILLABLE (11/22/2023 1:45 PM EDT) Narrative Scheduling, Silent - 11/22/2023 1:45 PM EDT This procedure will not be read by a Radiologist. Please see operative note. Gregory Lima MD RAD FLUOROSCOPY documented in this encounter Administered Medications Inactive Administered Medications - up to 3 most recent administrations Medication Order MAR Action Action Date Dose Rate Site BUPivacaine HCl (Sensorcaine) 0.5 % (PF) inj 7.5 mg 7.5 mg (1.5 mL), Injection, ONCE, On Sat11/22/23 at 1330, For 1 dose, Bilateral Given 11/22/2023 1:38 PM EDT 3 mL lidocaine 1 % inj 15 mg 15 mg (1.5 mL), Subcutaneous, ONCE, On Sat11/22/23 at 1330, For 1 dose, Bilateral Given 11/22/2023 1:35 PM EDT 5 mL Ot her-Specify Triamcinolone Acetonide (Kenalog) 40 MG/ML inj 40 mg 40 mg, Injection, ONCE, On Sat11/22/23 at 1330, For 1 dose Given 11/22/2023 1:38 PM EDT 40 mg documented in this encounter Active and Recently Administered Medications Times are shown in EDT. Scheduled Medication Order 11/20/2023 11/21/2023 11/22/2023 BUPivacaine HCl (Sensorcaine) 0.5 % (PF) inj 7.5 mg (COMPLETED) 7.5 mg (1.5 mL), Injection, ONCE, On Sat11/22/23 at 1330, For 1 dose, Bilateral 1338 (Given - Provid er: Aaliyah Sood RN) lidocaine 1 % inj 15 mg (COMPLETED) 15 mg (1.5 mL), Subcutaneous, ONCE, On Sat11/22/23 at 1330, For 1 dose, Bilateral 1335 (Given - Provid er: Aaliyah Sood RN) Triamcinolone Acetonide (Kenalog) 40 MG/ML inj 40 mg (COMPLETED) 40 mg, Injection, ONCE, On Sat11/22/23 at 1330, For 1 dose 1338 (Given - Provid er: Aaliyah Sood RN) documented in this encounter Advance Directives * Full Code (Latest Code Status on File) Date Activated Date Inactivated Comments 03/29/2023 1:43 PM 04/02/2023 2:03 PM This order r eflects the patients wishes and were consensually agreed upon. Question Answer Comments Discussion of Advance Directives occurred with: Patient Care Teams Demonstrator Sewing Techniques Relationship Specialty Start Date End Date Tami Upton MD [address] [place] [phone] PCP - General Family Medicine 11/12/23 documented as of this encounter
--- NOTE | 2023-12-04 16:58 | Hospitalist Progress Note ---
Date of Service December 04, 2023 Assessment & Plan (1) Alcohol withdrawal syndrome: Plan: 33-year-old male with PMH of alcoholic cirrhosis, portal hypertensive gastropathy, chronic anemia [baseline hemoglobin of 12-13], chronic thrombocytopenia, chronic back pain secondary to compression fractures, mood disorder, OCD, ongoing tobacco abuse who had recent confinement about 2 months ago for alcohol withdrawal and upper GI bleed when EGD showed portal gastropathy and esophageal mucosal erosions. This time patient presented due to achy abdominal pain associated with nausea and emesis. Patient reported blood- streaked emesis but denies black stool. He is being managed for the following. Alcohol withdrawal, risk of Alcohol abuse Patient reports last drink in the a.m. of 12/02. Patient states that he wants to quit this time. Continue with Librium taper, continue with THO S protocol. Continue with folic acid and thiamine. Monitor replete electrolytes, monitor for withdrawal. CM to assist with DC planning/alcohol rehab. Elevated lipase: CTAP with no evidence of pancreatitis, patient with no abdominal pain. Pancreatitis ruled out. GI evaluated. Concern for UGI bleed: Patient coming in with coffee-ground specks in the emesis followed by bilious emesis. Hemoglobin has been stable. Monitor H&H. Transfuse as needed. Continue with PPI IV twice daily. GI evaluated. Appreciate recommendation. Ceftriaxone for SBP prophylaxis in a cirrhotic patient presenting with GI bleed Other chronic medical conditions: Continue with/resume home meds as and when able. alcoholic cirrhosis portal hypertensive gastropathy as per records chronic anemia, (baseline hemoglobin 12-13) chronic thrombocytopenia secondary to cirrhosis chronic back pain secondary to compression fractures mood disorder/OCD as per records Hyperglycemia ro DM, a1c 5.0. ongoing tobacco abuse, Nicotine patch as needed DVT prophylaxis. SCDs re: GI bleed Full code Text document was generated using [employer] voice recognition software. It may contain grammatical or spelling errors. Kindly contact undersigned for clarification of any documentation item in question. Admission and Anticipated Discharge Date Admission Date: December 03, 2023 Subjective Patient was seen and examined at bedside. Patient was lying in bed, on room air, NAD, resting comfortably. Patient denies nausea, vomiting, abdominal pain. Patient reports tolerating diet okay. Patient reports drinking 1 L of vodka daily, last drink was yesterday morning per patient. Discussed with GI, okay to advance diet as tolerated. Physical Exam Physical Exam: GENERAL: Resting comfortably, restless, no respiratory distress SKIN: Normal color, warm HEENT: Pale palpebral conjunctivae, no ptosis, moist buccal mucosa NECK : Supple, no tenderness CHEST : CTA, no tenderness HEART : RRR, no obvious murmurs ABDOMEN: no distention, no epigastric tenderness EXTREMITIES : No LE swelling/tenderness, no other conspicuous deformities noted NEUROLOGIC : Coherent, no facial asymmetry, no other gross focality Results & Data Results & Data Vital Signs (Past 12 Hours) Vital Signs Temp Pulse Pulse Resp BP Pulse Ox O2 Del Method 12/04/23 15:19 36.8 C 75 16 133/81 95 Room Air 12/04/23 11:31 36.9 C 64 18 124/73 95 Room Air 12/04/23 08:01 59 L 12/04/23 07:43 36.7 C 76 18 109/62 95 Room Air (1) Alcohol withdrawal syndrome Complication of substance-induced condition: with unspecified complication Q ualified Code(s): F10.939 - Alcohol use, unspecified with withdrawal, unspecified
[2023-12-04] MEDS: cefTRIAXone SODIUM 2,000 MG/50 ML BAG IV SCH (22:42)
[2023-12-04] MEDS: ACETAMINOPHEN 500 MG TAB PO PRN (23:32)
[2023-12-05] MEDS: chlordiazePOXIDE HCl 25 MG CAP PO SCH (00:10)
[2023-12-05 07:52] LABS: Calcium 9.3 mg/dl (8.6-10.3); Creatinine Clr Calc Pharmacy 206.6 ml/min; Magnesium 1.6 mg/dl (1.7-2.4); Potassium 3.9 mmol/L (3.5-5.1)
[2023-12-05 08:26] LABS: Hematocrit (blood only) 38.5 % (42.0-52.0); Hemoglobin 13.6 g/dl (14.0-18.0); Mean Corpuscular Hemoglobin 32.5 pg (25.0-34.0); Mean Corpuscular Hgb Conc 35.3 g/dL (32.0-36.0); Mean Corpuscular Volume 92.1 fL (80.0-100.0); Mean Platelet Volume 11.2 fL (9.4-12.4); Platelet Count 29 K/uL (130-400); RDW Coefficient of Variation 17.2 % (11.5-14.5); RDW Standard Deviation 58.6 fL (36.4-46.3); Red Blood Count 4.18 M/uL (4.70-6.10); White Blood Count 5.23 K/ul (4.8-10.8)
[2023-12-05 08:36] LABS: Platelet Estimate Signific. Decreased (Normal)
[2023-12-05] MEDS: MAGNESIUM SULFATE / D5W 1 GM/100 ML BAG IV SCH (08:45)
[2023-12-05 13:31] LABS: Hematocrit (blood only) 40.1 % (42.0-52.0); Hemoglobin 13.9 g/dl (14.0-18.0); Mean Corpuscular Hemoglobin 32.4 pg (25.0-34.0); Mean Corpuscular Hgb Conc 34.7 g/dL (32.0-36.0); Mean Corpuscular Volume 93.5 fL (80.0-100.0); Mean Platelet Volume 11.4 fL (9.4-12.4); Platelet Count 29 K/uL (130-400); RDW Standard Deviation 57.9 fL (36.4-46.3); Red Blood Count 4.29 M/uL (4.70-6.10)
[2023-12-05 13:44] LABS: Platelet Estimate Signific. Decreased (Normal)
--- NOTE | 2023-12-05 14:53 | Hospitalist Progress Note ---
Date of Service December 05, 2023 Assessment & Plan (1) Alcohol withdrawal syndrome: Plan: 33-year-old male with PMH of alcoholic cirrhosis, portal hypertensive gastropathy, chronic anemia [baseline hemoglobin of 12-13], chronic thrombocytopenia, chronic back pain secondary to compression fractures, mood disorder, OCD, ongoing tobacco abuse who had recent confinement about 2 months ago for alcohol withdrawal and upper GI bleed when EGD showed portal gastropathy and esophageal mucosal erosions. This time patient presented due to achy abdominal pain associated with nausea and emesis. Patient reported blood- streaked emesis but denies black stool. He is being managed for the following. Alcohol withdrawal, risk of Alcohol abuse Patient reports last drink in the a.m. of 10/. Patient states that he wants to quit this time. Continue with Librium taper, continue with THO S protocol. Continue with folic acid and thiamine. Monitor replete electrolytes, monitor for withdrawal. CM to assist with DC planning/alcohol rehab. Elevated lipase: CTAP with no evidence of pancreatitis, patient with no abdominal pain. Pancreatitis ruled out. GI evaluated. Concern for UGI bleed: Patient coming in with coffee-ground specks in the emesis followed by bilious emesis. Hemoglobin has been stable. Monitor H&H. Transfuse as needed. Continue with PPI IV twice daily. GI evaluated. Appreciate recommendation. Ceftriaxone for SBP prophylaxis in a cirrhotic patient presenting with GI bleed Other chronic medical conditions: Continue with/resume home meds as and when able. alcoholic cirrhosis portal hypertensive gastropathy as per records chronic anemia, (baseline hemoglobin 12-13) chronic thrombocytopenia secondary to cirrhosis chronic back pain secondary to compression fractures mood disorder/OCD as per records Hyperglycemia ro DM, a1c 5.0. ongoing tobacco abuse, Nicotine patch as needed DVT prophylaxis. SCDs re: GI bleed Full code Text document was generated using [employer] voice recognition software. It may contain grammatical or spelling errors. Kindly contact undersigned for clarification of any documentation item in question. Admission and Anticipated Discharge Date Admission Date: December 03, 2023 Subjective Patient was seen and examined at bedside. Patient was lying in bed, on room air, NAD, resting comfortably. Patient denies nausea, vomiting, abdominal pain. Patient reports tolerating diet okay. Patient reports drinking 1 L of vodka daily, last drink was 12/02 morning per patient. Reports BM (no blood or black per pt). Reports his SO has STD and would like himself be tested for that (m. genitalium). He also agreed to be tested for HIV/Hep B and chlamydia/gonorrhea. Physical Exam Physical Exam: GENERAL: Resting comfortably, restless, no respiratory distress SKIN: Normal color, warm HEENT: Pale palpebral conjunctivae, no ptosis, moist buccal mucosa NECK : Supple, no tenderness CHEST : CTA, no tenderness HEART : RRR, no obvious murmurs ABDOMEN: no distention, no epigastric tenderness EXTREMITIES : No LE swelling/tenderness, no other conspicuous deformities noted NEUROLOGIC : Coherent, no facial asymmetry, no other gross focality Results & Data Results & Data Vital Signs (Past 12 Hours) Vital Signs Temp Pulse Pulse Pulse Resp BP Pulse Ox 12/05/23 11:47 36.8 C 78 18 160/96 H 95 12/05/23 08:55 66 12/05/23 07:49 36.9 C 75 18 158/94 H 95 12/05/23 03:31 36.8 C 65 18 133/72 95 O2 Del Method 12/05/23 11:47 Room Air 12/05/23 08:55 12/05/23 07:49 Room Air 12/05/23 03:31 Room Air (1) Alcohol withdrawal syndrome Complication of substance-induced condition: with unspecified complication Qualified Code(s): F10.939 - Alcohol use, unspecified with withdrawal, unspecified
[2023-12-06 06:51] LABS: Hematocrit (blood only) 41.4 % (42.0-52.0); Hemoglobin 14.4 g/dl (14.0-18.0); Mean Corpuscular Hemoglobin 32.7 pg (25.0-34.0); Mean Corpuscular Hgb Conc 34.8 g/dL (32.0-36.0); Mean Corpuscular Volume 94.1 fL (80.0-100.0); Mean Platelet Volume 11.8 fL (9.4-12.4); Platelet Count 30 K/uL (130-400); RDW Coefficient of Variation 17.3 % (11.5-14.5); RDW Standard Deviation 59.8 fL (36.4-46.3); White Blood Count 5.32 K/ul (4.8-10.8)
[2023-12-06 07:04] LABS: Calcium 9.4 mg/dl (8.6-10.3); Creatinine Clr Calc Pharmacy 185.8 ml/min; Magnesium 1.9 mg/dl (1.7-2.4)
[2023-12-06 07:53] VITALS: PULSE 76; RESP 16; TEMP 97.8; O2SAT 98
[2023-12-06 08:48] LABS: HIV 4th Gen(HIV 1,2 AB+p24 Ag Negative (Negative)
[2023-12-06 08:55] LABS: Hep B Surface Ag with confirm Negative (Negative)
[2023-12-06 09:00] LABS: Hep C Ab Rflx HepCQuant RNA Negative (Negative)
[2023-12-06 09:28] VITALS: BP 171/103
[2023-12-06] MEDS ORDERED: hydrALAZINE HCL 20 MG/ML VIAL IV PRN (11:28)
--- NOTE | 2023-12-06 12:47 | Discharge Summary ---
Date of Service December 06, 2023 Admission HPI Per Admitting Provider History obtained from patient, family, and records. Medical history significant for alcoholic cirrhosis, portal hypertensive gastropathy as per records, chronic anemia (baseline hemoglobin 12-13), chronic thrombocytopenia, chronic back pain secondary to compression fractures, mood disorder, OCD as per records, ongoing tobacco abuse. Last confinement 2 months ago for alcohol withdrawal and UGIB. EGD showed portal gastropathy and esophageal mucosal erosions. Patient had achy abdominal pain today associated with nausea and emesis. Denies headache, chest pain, unusual SOB. Blood streaked emesis as per patient. Usual dark stools. No fever, no chills. Patient accompanied his partner to the ER today. He did not look well as per partner. He looks shaky. 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 Admission Exam Per Admitting Provider GENERAL: Slightly uncomfortable, restless, no respiratory distress SKIN: Normal color, warm HEENT: Pale palpebral conjunctivae, no ptosis, dry buccal mucosa NECK : Supple, no tenderness CHEST : CTA, no tenderness HEART : RRR, no obvious murmurs ABDOMEN: Some distention, epigastric tenderness EXTREMITIES : No LE swelling/tenderness, no other conspicuous deformities noted NEUROLOGIC : Coherent, no facial asymmetry, no other gross focality Principal Diagnosis Alcohol withdrawal Discharge Exam GENERAL: Resting comfortably, restless/anxious appearing, no respiratory distress SKIN: Normal color, warm HEENT: Pale palpebral conjunctivae, no ptosis, moist buccal mucosa NECK : Supple, no tenderness CHEST : CTA, no tenderness HEART : RRR, no obvious murmurs ABDOMEN: no distention, no epigastric tenderness EXTREMITIES : No LE swelling/tenderness, no other conspicuous deformities noted NEUROLOGIC : Coherent, no facial asymmetry, no other gross focality Discharge Data Allergies Allergy/AdvReac Type Severity Reaction Status Date / Time No Known Allergies Allergy Verified 12/03/23 21:31 Consultations 12/04/23 01:45 Consult Gastroenterology Routine Ordered Studies 12/03/23 22:38 CT Abd and Pelvis [CT abd pelvis IV con only] Stat Hospital Course (1) Alcohol withdrawal syndrome: 33-year-old male with PMH of alcoholic cirrhosis, portal hypertensive gastropathy, chronic anemia [baseline hemoglobin of 12-13], chronic thrombocytopenia, chronic back pain secondary to compression fractures, mood disorder, OCD, ongoing tobacco abuse who had recent confinement about 2 months ago for alcohol withdrawal and upper GI bleed when EGD showed portal gastropathy and esophageal mucosal erosions. This time patient presented due to achy abdominal pain associated with nausea and emesis. Patient reported blood- streaked emesis but denies black stool. He was being managed for the following. Alcohol withdrawal, risk of Alcohol abuse Patient reports last drink in the a.m. of 12/02. Patient states that he wants to quit this time. Continue with Librium taper, continue with THO S protocol. Continue with folic acid and thiamine. Monitor replete electrolytes, monitor for withdrawal. CM to assist with DC planning/alcohol rehab. Elevated lipase: CTAP with no evidence of pancreatitis, patient with no abdominal pain. Pancreatitis ruled out. GI evaluated. Concern for UGI bleed: Patient coming in with coffee-ground specks in the emesis followed by bilious emesis. Hemoglobin has been stable. Monitor H&H. Transfuse as needed. Continue with PPI IV twice daily. GI evaluated. Appreciate recommendation. Ceftriaxone for SBP prophylaxis in a cirrhotic patient presenting with GI bleed. No further episodes of emesis occured while in hospital. Other chronic medical conditions: Continue with/resume home meds as and when able. alcoholic cirrhosis portal hypertensive gastropathy as per records chronic anemia, (baseline hemoglobin 12-13) chronic thrombocytopenia secondary to cirrhosis chronic back pain secondary to compression fractures mood disorder/OCD as per records Hyperglycemia ro DM, a1c 5.0. ongoing tobacco abuse, Nicotine patch as needed DVT prophylaxis. SCDs re: GI bleed Full code Today patient decided to leave the hospital AGAINST MEDICAL ADVICE. Patient was made aware that he is at high risks of going into withdrawal, his blood pressures are going up likely secondary to withdrawal, he has very high risks of severe withdrawal including seizures/electrolyte abnormalities/cardiac arrhythmia/possibility of . He understands. He denies suicidal ideation/homicidal ideation. He is oriented. He does not want to stay in the hospital. He is leaving AMA. Patient has been advised to come back to the hospital if he is not feeling well/increasing palpitations/sweating/feeling very weak/seizure activity/chest pain. He voiced understanding again. Patient did seem he will go back to drinking again. Initially agreed for rehab but then declined rehab during our conversation. Text document was generated using [employer] voice recognition software. It may contain grammatical or spelling errors. Kindly contact undersigned for clarification of any documentation item in question. Home Health Attestation I certify that this patient is under my care and that I, or a physicians elder assistant working with me, had a face to-face encounter that meets the home health [id number] encounter requirements with this patient. The encounter with the patient was in whole, or in part, for the following medical condition, which is the primary reason for home health care (list medical condition): I certify that, based on my findings, the following services are medically necessary home health services: My clinical findings support the need for the above services because: Further, I certify that my clinical findings support that this patient is homebound (i.e. absences from home require considerable and taxing effort and are for medical reasons or hinduism services or infrequently or of short duration when for other reasons) because: Certification for Home Health Services: Based on the above findings, I certify that this patient is confined to the home and needs intermittent senior care care, physical therapy and/or speech therapy or continues to need occupational therapy. The patient is under my care, and I have initiated the establishment of the plan of care. This patient will be followed by a physician who will periodically review the plan of care. Total Time Total Time Spent Total Time Spent (In Minutes): 35 Discharge Plan Discharge Items Patient Disposition: Against Medical Advice Reason For Visit: ETOH WITHDRAWAL Follow-up/Referrals: Tami Upton MD [Primary Care Provider] - Stand-Alone Forms: My [facility], Smoking Cessation Medications and DC Order Prescriptions: No Action celecoxib 200 mg capsule 200 mg PO QAM gabapentin 300 mg capsule 600 mg PO QPM Hold Instructions: Until complete with librium gabapentin 300 mg capsule 300 mg PO QAM Hold Instructions: Until complete with librium nadolol 40 mg tablet 40 mg PO QAM folic acid 1 mg tablet 1 mg PO QAM furosemide 20 mg tablet 20 mg PO DAILY PRN (Reason: .leg swelling) paliperidone 9 mg tablet extended release 24 hr 9 mg PO QAM multivitamin Tablet 1 tab PO DAILY vitamin B complex Tablet 1 tab PO DAILY melatonin 10 mg Tablet 20 mg PO HS magnesium chloride 64 mg magnesium tablet 64 mg PO BID Qty: 60 0RF pantoprazole 40 mg Tablet,Delayed Release (Dr/Ec) 40 mg PO BID Qty: 60 0RF Discharge Orders: Left Against Medical Advice (Routine); Ordered 12/06/23 Ordered By: Courtney Cho Admission Data Admit Date/Time: 12/03/23 23:38 Attending Provider: Courtney Cho Admit Provider: Gavin Deutsch Primary Care Provider: Tami Upton Other Providers: Everett Ayon I
[2023-12-06 14:27] LABS: Marijuana Quant, GCMS Urine 1667 ng/mL (<5)
[2023-12-07] MEDS ORDERED: chlordiazePOXIDE HCl 5 MG CAP PO SCH (06:00)
[2023-12-07 12:13] LABS: Hepatitis A Antibody IgM NON-REACTIVE (NON-REACTIVE); Hepatitis B Core Antibody IgM NON-REACTIVE (NON-REACTIVE)
== END 2023-12-06 12:45 | disposition left against medical advice (07) | DRG 894 ==
LOC: ED 17:37 → INTOOBSV 23:38 → EDINP 23:38 → 2W 12-04 04:28

== ENCOUNTER 2023-12-30 18:43 | Observation (INO) ==
--- NOTE | 2023-12-30 19:15 | Emergency Department Note ---
Impression & Plan Alcohol intoxication, Coffee ground emesis ED Provider Note Provider: Gerson Sykes MD DATE OF SERVICE: 12/22/2023 CHIEF COMPLAINT: Alcohol use, possible withdrawal, vomited HISTORY OF PRESENT ILLNESS: Patient is a 33-year-old gentleman past medical history of hyperlipidemia, cirrhosis, alcohol abuse and withdrawal presenting today concerned about his alcohol use. Evidently last drink was about 40 minutes ago. Presents here with partner. States he drinks about a liter of vodka a day and sometimes whiskey. Does report he had a withdrawal seizure about 3 years ago. Has a try to work on his alcohol abuse over the past 3 years without success. Is not been to rehab before. Since being discharged beginning of the month quickly relapsed back to heavy alcohol use daily. Has been vomiting more frequently with his drinking. Vomited just prior to arrival and there was some coffee-ground quality to it according to partner. Patient reports he may have had low bit of black stool. Reports maybe a little bit of mid abdominal discomfort. No falls reported. Denies significant swelling. Concerned he could go on alcohol drawl. Patient states he is not taking medications at home. PAST MEDICAL HISTORY: As noted above MEDICATIONS: Not taking home medications SOCIAL HISTORY: History of alcohol abuse and currently drinking PHYSICAL EXAM: GENERAL: alert and oriented in no acute distress on stretcher fatigued in appearance however Head: normocephalic and atraumatic EYES: No discharge very slight bilateral injection and mild icterus. EOMI. NECK: Trachea midline. Supple. ENT: Mucous membranes pink and moist. LUNGS: Airway patent. No retractions. Breath sounds clear with good air entry bilaterally. HEART: Regular rate and rhythm. No chest wall tenderness ABDOMEN: Soft and non-tender, without guarding or rebound. SKIN: Acyanotic, warm, dry, without rashes EXTREMITIES: Without swelling, tenderness or deformity NEUROLOGICAL: Moving all extremities. No aphasia. No facial droop. Minimally slurred speech. EK bpm normal sinus rhythm. No PVC or PAC. No acute ST segment elevation or depression with a QTc of 505. CONTINUOUS CARDIAC MONITORING: was ordered and showed a heart rate of 90s-110s bpm in normal sinus rhythm to sinus tachycardia Patient's laboratory studies and imaging reviewed. Differential includes Alcohol intoxication, toxicologic, infection, hypoglycemia, electrolyte abnormalities, cardiac sources, intracerebral event, neurologic, trauma, as well as other pathologies. IMPRESSION/MEDICAL DECISION MAKING: Patient with reported history of alcohol abuse and it appears that there is some component of cirrhosis from review of prior blood work. Will give Pepcid Protonix here there is report of maybe some coffee-ground emesis. Possible low bit of black stool. History of varices and prior EGD noted in the computer from October 15 showed evidence of esophageal mucosal erosion. Does not appear to be in marleny withdrawal now but does appear somewhat intoxicated. No trauma history no physical signs of trauma on his person. Abdomen not significantly tender. Will start with blood work. Given a small amount of Zofran as he had some nausea prior to coming in. Blood work today without leukocytosis or anemia. Platelet count 76 about double previous. INR 1.6. No significant electrolyte abnormality or signs of acute renal dysfunction. LFTs elevated but somewhat improved from previous. Lipase slightly up from before 229. Alcohol level significantly elevated at 454. Does become somewhat tremulous and still with some retching given a bit of Ativan here. CT of the abdomen pelvis obtained given the elevated lipase and his report is abdominal pain to include any other acute intra-abdominal pathology. CT report from radiology questions some gastritis and duodenitis and may be some possible pancreatitis versus portal hypertension. None severe abdominal pain lower suspicion for marleny pancreatitis. Still appears intoxicated and certainly at risk for withdrawal. Patient vomiting is improving some. Not in withdrawal after small dose of Ativan but somewhat drowsy. Will bring in to the hospital for further care and monitoring especially in light of reported coffee-ground emesis. Again has received a dose of IV Protonix here. Discussed with the hospitalist team here. DIAGNOSIS: Alcohol intoxication/alcohol abuse, thrombocytopenia, cirrhosis, abdominal pain, coffee-ground emesis DISPOSITION: Hospitalist will evaluate Patient was agreeable with this plan. Past Med/Surg History Problem List (Updated 12/30/23 @ 21:55 by Gerson Sykes M.D.) Coffee ground emesis (Acute) Alcohol abuse (Acute) Alcohol withdrawal syndrome (Acute) Alcohol use disorder, severe, dependence (Acute) Alcohol intoxication (Acute) GIB (gastrointestinal bleeding) (Acute) Alcoholic hepatitis Acute alcohol abuse (Acute) Pancytopenia (Acute) Medical History HTN (hypertension) Thrombocytopenia OCD (obsessive compulsive disorder) Insomnia Bipolar 1 disorder Tobacco abuse Alcohol dependence Compression fracture of T12 vertebra Compression fracture of L1 lumbar vertebra Hepatosplenomegaly Mixed hyperlipidemia Alcohol abuse Surgical History Hx of tonsillectomy Hx of colonoscopy 2015, WNL, internal hemorrhoids Social History Smoking Status: Current every day smoker Tobacco Type: Cigarettes Cigarettes Per Day: 10; Do You Dip or Chew Tobacco: No; Hx Alcohol Use: Yes Alcohol type: hard liquor Hx Substance Use: Yes Last Used Substance: Hours (ago) Preferred Language: Greenlandic Communication Ability: Effective Psychosocial Rehabilitation Counselor Required: No Beliefs That Will Affect Care: None Current Living Situation: Alone Feels Safe at Home: Yes Assistive Devices: None Allergies Allergies Allergy/AdvReac Type Severity Reaction Status Date / Time No Known Allergies Allergy Verified 12/03/23 21:31 Home Meds Home Medications Medication Instructions Recorded Confirmed celecoxib 200 mg capsule 200 mg PO QAM 10/14/23 12/03/23 folic acid 1 mg tablet 1 mg PO QAM 10/14/23 12/03/23 furosemide 20 mg tablet 20 mg PO DAILY PRN .leg swelling 10/14/23 12/03/23 gabapentin 300 mg capsule 300 mg PO QAM 10/14/23 12/03/23 gabapentin 300 mg capsule 600 mg PO QPM 10/14/23 12/03/23 melatonin 10 mg tablet 20 mg PO HS 10/14/23 12/03/23 multivitamin 1 tab PO DAILY 10/14/23 12/03/23 nadolol 40 mg tablet 40 mg PO QAM 10/14/23 12/03/23 paliperidone 9 mg tablet,extended 9 mg PO QAM 10/14/23 12/03/23 release 24 hr vitamin B complex 1 tab PO DAILY 10/14/23 12/03/23 Previous Rx's Medication Instructions Recorded magnesium chloride 64 mg 64 mg PO BID #60 tabs 10/16/23 (magnesium chloride) tablet pantoprazole 40 mg tablet,delayed 40 mg PO BID #60 tabs 10/16/23 release Results & Data (ED) Vital Signs Vital Signs - 24 hr 12/30/23 18:57 12/30/23 19:05 12/30/23 19:19 Temperature 37 C Temperature Source Temporal Artery Scan Pulse Rate 117 H 112 H Pulse Rate [Apical] 111 H Respiratory Rate 16 18 Respiratory Effort / Characteristics Non-Labored Non-Labored Spontaneous Respiratory Depth Normal Normal Respiratory Pattern Regular Blood Pressure 162/95 H Blood Pressure [Right Arm] 162/110 H Blood Pressure Mean 117 Blood Pressure Mean [Right Arm] 127 Pulse Oximetry 96 98 Oxygen Delivery Method Room Air Room Air Oxygen Flow Rate Sepsis Recent Fever Within 48 Hours No Sepsis New/Unexplained Change in Mental Status No Sepsis Action Taken by Nursing No Action Required Oxygen Flow Rate - Titration Pulse Oximetry Post Tiitration 12/30/23 20:00 12/30/23 20:30 12/30/23 20:50 Temperature Temperature Source Pulse Rate Pulse Rate [Apical] 95 H 101 H Respiratory Rate 18 18 Respiratory Effort / Characteristics Non-Labored Spontaneous Non-Labored Spontaneous Respiratory Depth Normal Normal Respiratory Pattern Regular Regular Blood Pressure Blood Pressure [Right Arm] 143/93 H 122/78 Blood Pressure Mean Blood Pressure Mean [Right Arm] 109 92 Pulse Oximetry 95 99 86 L Oxygen Delivery Method Room Air Nasal Cannula Nasal Cannula Oxygen Flow Rate 2 0 Sepsis Recent Fever Within 48 Hours Sepsis New/Unexplained Change in Mental Status Sepsis Action Taken by Nursing Oxygen Flow Rate - Titration 2 Pulse Oximetry Post Tiitration 97 12/30/23 21:00 12/30/23 22:00 12/30/23 23:03 Temperature Temperature Source Pulse Rate 100 H Pulse Rate [Apical] 92 H 100 H Respiratory Rate 18 18 Respiratory Effort / Characteristics Non-Labored Spontaneous Non-Labored Spontaneous Respiratory Depth Normal Normal Respiratory Pattern Regular Regular Blood Pressure Blood Pressure [Right Arm] 131/85 125/74 Blood Pressure Mean Blood Pressure Mean [Right Arm] 100 91 Pulse Oximetry 96 98 Oxygen Delivery Method Room Air Nasal Cannula Oxygen Flow Rate 2 Sepsis Recent Fever Within 48 Hours Sepsis New/Unexplained Change in Mental Status Sepsis Action Taken by Nursing Oxygen Flow Rate - Titration Pulse Oximetry Post Tiitration Laboratory Data 12/30/23 19:10 12/30/23 19:10 Lab Results 12/30/23 12/30/23 12/30/23 Range/Units 19:10 20:03 20:04 WBC 10.27 (4.8-10.8) K/ul RBC 4.86 (4.70-6.10) M/uL Hgb 16.0 (14.0-18.0) g/dl Hct 45.6 (42.0-52.0) % MCV 93.8 (80.0-100.0) fL MCH 32.9 (25.0-34.0) pg MCHC 35.1 (32.0-36.0) g/dL RDW Std Deviation 61.1 H (36.4-46.3) fL RDW Coeff of Joe 17.7 H (11.5-14.5) % Plt Count 76 L (130-400) K/uL MPV 10.7 (9.4-12.4) fL Immature Gran % (Auto) 0.4 % Neut % (Auto) 54.6 % Lymph % (Auto) 35.5 % Valencia % (Auto) 7.4 % Eos % (Auto) 1.4 % Baso % (Auto) 0.7 % Neut # (Auto) 5.61 (1.40-6.50) K/uL Lymph # (Auto) 3.65 H (1.20-3.40) K/uL Valencia # (Auto) 0.76 H (0.11-0.59) K/uL Eos # (Auto) 0.14 (0.00-0.50) K/uL Baso # (Auto) 0.07 (0.00-0.20) K/uL Immature Gran # (Auto) 0.04 (0.01-0.20) K/uL PT 16.7 H (9.0-12.0) Seconds INR 1.6 H (0.9-1.1) APTT 33 H (21-31) Seconds PTT Ratio 1.2 Sodium 142 (136-145) mmol/L Potassium 3.6 (3.5-5.1) mmol/L Chloride 102 (98-107) mmol/L Carbon Dioxide 26 (21-32) mmol/L Anion Gap 14 H (3-11) BUN 7 (6-23) mg/dl Creatinine 0.45 L (0.6-1.4) mg/dl Est Cr Clr Drug Dosing 229.1 ml/min eGFR 140.82 BUN/Creatinine Ratio 15.6 (10-20) Glucose 121 H (70-99(Fasting)) mg/dl Calcium 9.1 (8.6-10.3) mg/dl Magnesium 1.9 (1.7-2.4) mg/dl Total Bilirubin 3.4 H (0.2-1.0) mg/dl AST 386 H (13-39) U/L ALT 164 H (7-52) U/L Alkaline Phosphatase 105 H (34-104) U/L Total Protein 8.3 (6.0-8.3) gm/dl Albumin 4.6 (3.4-5.0) gm/dl Globulin 3.7 (2.5-4.0) gm/dl Albumin/Globulin Ratio 1.2 (0.9-2) Lipase 229 H (11-82) U/L TSH 0.594 (0.300-4.500) uIu/ml Salicylates < 3.0 L (3.0-30) mg/dl Acetaminophen < 3 L (10-30) ug/ml Ethyl Alcohol mg/dL 454.0 H (<10.0) mg/dl SARS-CoV-2, RNA, NAAT NEGATIVE (NEGATIVE) Blood Type A Positive Antibody Screen NEGATIVE Administered Medications Discontinued Medications Pantoprazole Sodium 80 mg/ (Dextrose) 120 mls @ 480 mls/hr IV ONE STA Stop: 12/30/23 19:39 Last Infusion: 12/30/23 20:01 Dose: Infused Documented By: Admin: 12/30/23 19:46 Dose: 480 mls/hr Documented By: JORDEN Famotidine (Pepcid 20mg Iv Push) 20 mg in 5 mls @ 2.5 mls/min IV NOW STA Stop: 12/30/23 19:26 Last Admin: 12/30/23 19:43 Dose: 2.5 mls/min Documented By: JORDEN Ioversol (Optiray 320 100ml) 91 ml IV ONCE ONE Stop: 12/30/23 20:18 Last Admin: 12/30/23 20:18 Dose: 91 ml Documented By: NAE Lorazepam (Lorazepam 1 Mg/1 Ml Syr Ed Inj Use) 1 mg IV ONE STA Stop: 12/30/23 20:46 Last Admin: 12/30/23 20:48 Dose: 1 mg Documented By: JORDEN Ondansetron HCl (Ondansetron Inj 2 Mg/Ml 2 Ml Vial) 4 mg IV NOW STA Stop: 12/30/23 19:26 Last Admin: 12/30/23 19:43 Dose: 4 mg Documented By: JORDEN Imaging Data Radiologist's Impression: Abdomen/Pelvis CT 12/30/23 20:04 Exam(s): CT ABDOMEN + PELVIS With Contrast IV Amt: 91 ml opti 320 EXAM: CT Abdomen and Pelvis With Intravenous Contrast CLINICAL HISTORY: Reason for exam: mid abd pain, etoh, bloody vomit, elev lipase. TECHNIQUE: Axial computed tomography images of the abdomen and pelvis with intravenous contrast. CTDI is 8 23.85 mGy and DLP is 1223.44 mGy-cm. Automated exposure control was utilized for the study. A dose lowering technique was utilized adhering to the principles of ALARA. CONTRAST: Patient received 91 ml opti 320 of IV contrast COMPARISON: No relevant prior studies available. FINDINGS: Lung bases: Unremarkable. No mass. No consolidation. ABDOMEN: Liver: There is heterogenous low density seen in the liver. There is periportal edema. There is recanalization of the umbilical vein. There is collateral vessels seen around the GE junction. Gallbladder and bile ducts: There is cholelithiasis. No ductal dilation. Pancreas: Mild inflammatory stranding seen in the upper retroperitoneum. No mass. No ductal dilation. Spleen: Splenomegaly measuring up to 17 cm in length.. Adrenals: Unremarkable. No mass. Kidneys and ureters: Unremarkable. No solid mass. No hydronephrosis. Stomach and bowel: There is mild gastric and duodenal wall thickening identified. Sigmoid colonic diverticulosis. No obstruction. PELVIS: Appendix: Normal appendix. Bladder: Unremarkable. No mass. Reproductive: Unremarkable as visualized. ABDOMEN and PELVIS: Intraperitoneal space: Unremarkable. No free air. No significant fluid collection. Bones/joints: No acute fracture. No dislocation. Vasculature: Unremarkable. No abdominal aortic aneurysm. Lymph nodes: Unremarkable. No enlarged lymph nodes. IMPRESSION: 1. Heterogeneous low-density in the liver similar to 12/03/23 study. Collateral vessels around the GE junction with recanalization of the umbilical vein suggestive of portal hypertension. 2. Mild gastric and duodenal wall prominence which could be from gastritis and duodenitis. 3. Mild peripancreatic stranding which could be from pancreatitis or portal hypertension 4. Splenomegaly Electronically signed by: Kannan Blanton MD 12/30/23 21:39 PM Discharge Plan Visit Data Chief Complaint: Detox Request Stated Complaint: ALCOHOL WITHDRAW ED Provider: Gerson Sykes Discharge Problem: Alcohol intoxication, Coffee ground emesis Patient Disposition: Being Evaluated by Hospitalist Forms Stand Alone Forms: [facility], Suicide Prevention Resources Prescriptions Prescriptions: No Action celecoxib 200 mg capsule 200 mg PO QAM gabapentin 300 mg capsule 600 mg PO QPM Hold Instructions: Until complete with librium gabapentin 300 mg capsule 300 mg PO QAM Hold Instructions: Until complete with librium nadolol 40 mg tablet 40 mg PO QAM folic acid 1 mg tablet 1 mg PO QAM furosemide 20 mg tablet 20 mg PO DAILY PRN (Reason: .leg swelling) paliperidone 9 mg tablet extended release 24 hr 9 mg PO QAM multivitamin Tablet 1 tab PO DAILY vitamin B complex Tablet 1 tab PO DAILY melatonin 10 mg Tablet 20 mg PO HS magnesium chloride 64 mg magnesium tablet 64 mg PO BID Qty: 60 0RF pantoprazole 40 mg Tablet,Delayed Release (Dr/Ec) 40 mg PO BID Qty: 60 0RF Referrals Referrals: Tami Upton MD [Primary Care Provider] -
[2023-12-30] MEDS: FAMOTIDINE 20MG IV PUSH 20 MG/5 ML SYR IV STA (19:43)
[2023-12-30] MEDS: ONDANSETRON INJ 2 MG/ML 2 ML VIAL IV STA (19:43)
[2023-12-30 19:46] LABS: Basophils # (auto) 0.07 K/uL (0.00-0.20); Basophils % (auto) 0.7 %; Eosinophils # (auto) 0.14 K/uL (0.00-0.50); Eosinophils % (auto) 1.4 %; Hematocrit (blood only) 45.6 % (42.0-52.0); Immature Granulocytes # (auto) 0.04 K/uL (0.01-0.20); Immature Granulocytes % (auto) 0.4 %; Lymphocytes # (auto) 3.65 K/uL (1.20-3.40); Lymphocytes % (auto) 35.5 %; Mean Corpuscular Hemoglobin 32.9 pg (25.0-34.0); Mean Corpuscular Hgb Conc 35.1 g/dL (32.0-36.0); Mean Corpuscular Volume 93.8 fL (80.0-100.0); Mean Platelet Volume 10.7 fL (9.4-12.4); Monocytes # (auto) 0.76 K/uL (0.11-0.59); Monocytes % (auto) 7.4 %; Neutrophils # (auto) 5.61 K/uL (1.40-6.50); Neutrophils % (auto) 54.6 %; Platelet Count 76 K/uL (130-400); RDW Coefficient of Variation 17.7 % (11.5-14.5); RDW Standard Deviation 61.1 fL (36.4-46.3); Red Blood Count 4.86 M/uL (4.70-6.10); White Blood Count 10.27 K/ul (4.8-10.8)
[2023-12-30] MEDS: PANTOprazole 80 MG in DEXTROSE 5% 100 ML IV STA (19:46)
[2023-12-30 19:52] LABS: Acetaminophen < 3 ug/ml (10-30); Albumin Globulin Ratio 1.2 (0.9-2); Albumin Level 4.6 gm/dl (3.4-5.0); BUN Creatinine Ratio 15.6 (10-20); Bilirubin,Total 3.4 mg/dl (0.2-1.0); Calcium 9.1 mg/dl (8.6-10.3); Creatinine Clr Calc Pharmacy 229.1 ml/min; Globulin 3.7 gm/dl (2.5-4.0); Magnesium 1.9 mg/dl (1.7-2.4); Potassium 3.6 mmol/L (3.5-5.1); Salicylate < 3.0 mg/dl (3.0-30); Total Protein 8.3 gm/dl (6.0-8.3)
[2023-12-30 20:07] LABS: Thyroid Stimulating Hormone 0.594 uIu/ml (0.300-4.500)
[2023-12-30 20:08] LABS: INR 1.6 (0.9-1.1); Partial Thromboplastin Ratio 1.2; Partial Thromboplastin Time 33 Seconds (21-31); Prothrombin Time 16.7 Seconds (9.0-12.0)
[2023-12-30] MEDS: OPTIRAY 320 100ml IV ONE (20:18)
[2023-12-30] MEDS: LORazepam 1 MG/1 ML SYR ED Inj Use IV STA (20:48)
--- NOTE | 2023-12-30 21:40 | CT Scan Report ---
Exam(s): CT ABDOMEN + PELVIS With Contrast IV Amt: 91 ml opti 320 EXAM: CT Abdomen and Pelvis With Intravenous Contrast CLINICAL HISTORY: Reason for exam: mid abd pain, etoh, bloody vomit, elev lipase. TECHNIQUE: Axial computed tomography images of the abdomen and pelvis with intravenous contrast. CTDI is 8 23.85 mGy and DLP is 1223.44 mGy-cm. Automated exposure control was utilized for the study. A dose lowering technique was utilized adhering to the principles of ALARA. CONTRAST: Patient received 91 ml opti 320 of IV contrast COMPARISON: No relevant prior studies available. FINDINGS: Lung bases: Unremarkable. No mass. No consolidation. ABDOMEN: Liver: There is heterogenous low density seen in the liver. There is periportal edema. There is recanalization of the umbilical vein. There is collateral vessels seen around the GE junction. Gallbladder and bile ducts: There is cholelithiasis. No ductal dilation. Pancreas: Mild inflammatory stranding seen in the upper retroperitoneum. No mass. No ductal dilation. Spleen: Splenomegaly measuring up to 17 cm in length.. Adrenals: Unremarkable. No mass. Kidneys and ureters: Unremarkable. No solid mass. No hydronephrosis. Stomach and bowel: There is mild gastric and duodenal wall thickening identified. Sigmoid colonic diverticulosis. No obstruction. PELVIS: Appendix: Normal appendix. Bladder: Unremarkable. No mass. Reproductive: Unremarkable as visualized. ABDOMEN and PELVIS: Intraperitoneal space: Unremarkable. No free air. No significant fluid collection. Bones/joints: No acute fracture. No dislocation. Vasculature: Unremarkable. No abdominal aortic aneurysm. Lymph nodes: Unremarkable. No enlarged lymph nodes. IMPRESSION: 1. Heterogeneous low-density in the liver similar to 12/03/23 study. Collateral vessels around the GE junction with recanalization of the umbilical vein suggestive of portal hypertension. 2. Mild gastric and duodenal wall prominence which could be from gastritis and duodenitis. 3. Mild peripancreatic stranding which could be from pancreatitis or portal hypertension 4. Splenomegaly Electronically signed by: Kannan Blanton MD 12/30/23 21:39 PM
[2023-12-31] MEDS: PROMETHAZINE 12.5 MG/50.5 ML BAG IV STA (00:17)
--- NOTE | 2023-12-31 01:33 | History & Physical Report ---
Date of Service December 31, 2023 Assessment & Plan (1) Alcohol intoxication: Plan: 33-year-old male with past medical history significant for ongoing alcoholism, alcoholic cirrhosis of liver without ascites, esophageal varices and cirrhosis, portal hypertensive gastropathy, compression fraction of L1 and T12 vertebrae, chronic midline thoracic pain, smoking, obsessive-compulsive disorder, medical marijuana use, generalized anxiety disorder comes because of ongoing alcoholism and coffee-ground emesis and also found to have elevated LFTs. Patient was in the hospital in first week of December 2023 with alcohol withdrawal syndrome and alcohol hepatitis. During that admission also he had coffee-ground emesis. Seen by GI. At that time no EGD was done as hemoglobin was stable and he already had EGD in October 2023. And patient left AMA. Patient comes back today for alcohol detox. As per ER he was drinking a liter of vodka daily and sometimes whiskey. He had a history of alcohol withdrawal seizures about 3 years ago. After last admit again drinking heavily. Currently patient received Ativan and Phenergan and very drowsy. As per nursing staff he was speaking fine about 20 minutes ago. Currently very difficulty waking him up. Could not get get any history from the patient. His hemodynamics are okay. Hemoglobin is stable at 16. INR 1.6. Total bilirubin 3.4. AST 386. ALT 164. Alkaline phosphatase 105. Alcohol level 454. As per ER notes patient currently not taking any medications. Alcohol intoxication Alcohol level 454 Received Ativan and Phenergan Very drowsy currently History of alcohol withdrawal seizures Will place him on Librium and IV Ativan protocol IV thiamine and IV folic acid and multivitamin Close monitor for withdrawals Coffee-ground emesis Hemoglobin stable at 16 EGD in October 2023 showed erosions in the esophagus CT scan today showing possible gastritis and duodenitis Placed on Protonix drip, n.p.o. and IV fluids Could not get blood consent currently as patient is very drowsy But hemoglobin stable at 16 We will follow labs GI consult in a.m. for further recommendations Alcoholic hepatitis Total bilirubin 3.4 AST 386 ALT 164 Alkaline phos is 105 Discriminant function 25 MELD score 16 follow labs GI consult in a.m. Possible pancreatitis On CT scan Mild elevation of lipase IV fluids GI consult Alcohol liver cirrhosis Portal hypertensive gastropathy Chronic thrombocytopenia secondary cirrhosis. Platelets 76 Needs follow-up Will check ammonia level monitor for volume overload Ongoing tobacco abuse Needs counseling Chronic back pain secondary to compression fractures Mood disorder/OCD per records DVT prophylax SCDs for now Disposition telemetry Full code. History of Present Illness Chief Complaint: Alcoholism elevated LFTs and coffee-ground emesis Primary Care Provider: Tami Upton MD 33-year-old male with past medical history significant for ongoing alcoholism, alcoholic cirrhosis of liver without ascites, esophageal varices and cirrhosis, portal hypertensive gastropathy, compression fraction of L1 and T12 vertebrae, chronic midline thoracic pain, smoking, obsessive-compulsive disorder, medical marijuana use, generalized anxiety disorder comes because of ongoing alcoholism and coffee-ground emesis and also found to have elevated LFTs. Patient was in the hospital in first week of December 2023 with alcohol withdrawal syndrome and alcohol hepatitis. During that admission also he had coffee-ground emesis. Seen by GI. At that time no EGD was done as hemoglobin was stable and he already had EGD in October 2023. And patient left AMA. Patient comes back today for alcohol detox. As per ER he was drinking a liter of vodka daily and sometimes whiskey. He had a history of alcohol withdrawal seizures about 3 years ago. After last admit again drinking heavily. Currently patient received Ativan and Phenergan and very drowsy. As per nursing staff he was speaking fine about 20 minutes ago. Currently very difficulty waking him up. Could not get get any history from the patient. His hemodynamics are okay. Hemoglobin is stable at 16. INR 1.6. Total bilirubin 3.4. AST 386. ALT 164. Alkaline phosphatase 105. Alcohol level 454. As per ER notes patient currently not taking any medications. Past medical history. As mentioned above. Past surgical history.: Colonoscopy. Tonsillectomy/adenectomy. Social history. Smokes 0.5 packs daily for 20 years. Heavy alcohol use. Smokes marijuana. Has medical card Family history. Brother has alcoholism. Brother has drug abuse. Brother has asthma. Allergies Allergy/AdvReac Type Severity Reaction Status Date / Time No Known Allergies Allergy Verified 12/03/23 21:31 Home Medications Medication Instructions Recorded Confirmed Type celecoxib 200 mg capsule 200 mg PO QAM 10/14/23 12/03/23 History folic acid 1 mg tablet 1 mg PO QAM 10/14/23 12/03/23 History furosemide 20 mg tablet 20 mg PO DAILY PRN .leg swelling 10/14/23 12/03/23 History gabapentin 300 mg capsule 300 mg PO QAM 10/14/23 12/03/23 History gabapentin 300 mg capsule 600 mg PO QPM 10/14/23 12/03/23 History melatonin 10 mg tablet 20 mg PO HS 10/14/23 12/03/23 History multivitamin 1 tab PO DAILY 10/14/23 12/03/23 History nadolol 40 mg tablet 40 mg PO QAM 10/14/23 12/03/23 History paliperidone 9 mg tablet,extended 9 mg PO QAM 10/14/23 12/03/23 History release 24 hr vitamin B complex 1 tab PO DAILY 10/14/23 12/03/23 History magnesium chloride 64 mg 64 mg PO BID #60 tabs 10/16/23 12/03/23 Rx (magnesium chloride) tablet pantoprazole 40 mg tablet,delayed 40 mg PO BID #60 tabs 10/16/23 12/03/23 Rx release Past Med/Surg History Problem List (Updated 12/30/23 @ 21:55 by Gerson Sykes M.D.) Coffee ground emesis (Acute) Alcohol abuse (Acute) Alcohol withdrawal syndrome (Acute) Alcohol use disorder, severe, dependence (Acute) Alcohol intoxication (Acute) GIB (gastrointestinal bleeding) (Acute) Alcoholic hepatitis Acute alcohol abuse (Acute) Pancytopenia (Acute) Medical History HTN (hypertension) Thrombocytopenia OCD (obsessive compulsive disorder) Insomnia Bipolar 1 disorder Tobacco abuse Alcohol dependence Compression fracture of T12 vertebra Compression fracture of L1 lumbar vertebra Hepatosplenomegaly Mixed hyperlipidemia Alcohol abuse Surgical History Hx of tonsillectomy Hx of colonoscopy 2015, WNL, internal hemorrhoids Social History Smoking Status: Current every day smoker Tobacco Type: Cigarettes Cigarettes Per Day: 10; Do You Dip or Chew Tobacco: No; Tobacco Cessation Education Requested by Patient: No Hx Alcohol Use: Yes Alcohol type: hard liquor Hx Substance Use: Yes Last Used Substance: Unknown Substance Use Type Other:: medical marijuana Preferred Language: Greek Communication Ability: Effective Lozenge Maker Helper Required: No Beliefs That Will Affect Care: None Current Living Situation: Significant Other Feels Safe at Home: Yes Safety Concerns: Feels Safe At This Time Assistive Devices: Glasses Review of Systems Review of Systems: Unobtainable due to reduced consciousness Physical Exam Physical Exam: General- Very drowsy. Head- atraumatic Eyes- PERRL. ENT- oropharynx clear. opens mouth on asking Neck- supple, no JVD. Lungs- clear to auscultation , no wheezing or crackles Heart- regular rhythm; no murmur, no gallop,. Abdomen- normal bowel sounds, soft, nontender, no distension. Extremities- no pretibial edema, no erythema seen Neuro- Very Drowsy; PERRL, no facial palsy; opens eyes on calling. Results & Data Results & Data Vital Signs (Past 12 Hours) Vital Signs Temp Pulse Pulse Resp BP BP Pulse Ox 12/31/23 00:33 88 18 99 12/31/23 00:31 145/98 H 12/31/23 00:31 145/98 H 12/31/23 00:24 109 H 18 97 12/31/23 00:21 102 H 17 99 12/31/23 00:12 107 H 16 99 12/31/23 00:00 128/78 12/30/23 23:45 97 H 14 97 12/30/23 23:30 124/80 12/30/23 23:30 110 H 21 98 12/30/23 23:24 83 22 98 12/30/23 23:15 90 16 99 12/30/23 23:06 104 H 99 12/30/23 23:03 100 H 12/30/23 23:00 125/81 12/30/23 22:57 78 15 99 12/30/23 22:54 84 16 99 12/30/23 22:48 112 H 17 99 12/30/23 22:33 106 H 20 99 12/30/23 22:30 129/81 12/30/23 22:30 129/81 12/30/23 22:30 129/81 12/30/23 22:30 129/81 12/30/23 22:09 103 H 20 99 12/30/23 22:06 85 17 99 12/30/23 22:00 125/74 12/30/23 22:00 125/74 12/30/23 22:00 125/74 12/30/23 22:00 100 H 18 125/74 98 12/30/23 21:54 95 H 18 91 12/30/23 21:51 104 H 19 92 12/30/23 21:36 80 19 95 12/30/23 21:21 83 16 95 12/30/23 21:12 87 17 95 12/30/23 21:00 92 H 18 131/85 96 12/30/23 20:50 86 L 12/30/23 20:36 101 H 20 94 12/30/23 20:30 101 H 18 122/78 99 12/30/23 20:00 143/93 H 12/30/23 20:00 95 H 18 143/93 H 95 12/30/23 19:57 92 H 17 92 12/30/23 19:48 95 H 18 95 12/30/23 19:30 153/105 H 12/30/23 19:30 153/105 H 12/30/23 19:27 100 H 17 97 12/30/23 19:21 107 H 17 97 12/30/23 19:19 111 H 18 162/110 H 98 12/30/23 19:18 162/110 H 12/30/23 19:18 162/110 H 12/30/23 19:18 108 H 21 96 12/30/23 19:06 115 H 16 12/30/23 19:05 112 H 12/30/23 18:57 37 C 117 H 16 162/95 H 96 O2 Del Method O2 Flow Rate 12/31/23 00:33 12/31/23 00:31 12/31/23 00:31 12/31/23 00:24 12/31/23 00:21 12/31/23 00:12 12/31/23 00:00 12/30/23 23:45 12/30/23 23:30 12/30/23 23:30 12/30/23 23:24 12/30/23 23:15 12/30/23 23:06 12/30/23 23:03 12/30/23 23:00 12/30/23 22:57 12/30/23 22:54 12/30/23 22:48 12/30/23 22:33 12/30/23 22:30 12/30/23 22:30 12/30/23 22:30 12/30/23 22:30 12/30/23 22:09 12/30/23 22:06 12/30/23 22:00 12/30/23 22:00 12/30/23 22:00 12/30/23 22:00 Nasal Cannula 2 12/30/23 21:54 12/30/23 21:51 12/30/23 21:36 12/30/23 21:21 12/30/23 21:12 12/30/23 21:00 Room Air 12/30/23 20:50 Nasal Cannula 0 12/30/23 20:36 12/30/23 20:30 Nasal Cannula 2 12/30/23 20:00 12/30/23 20:00 Room Air 12/30/23 19:57 12/30/23 19:48 12/30/23 19:30 12/30/23 19:30 12/30/23 19:27 12/30/23 19:21 12/30/23 19:19 Room Air 12/30/23 19:18 12/30/23 19:18 12/30/23 19:18 12/30/23 19:06 12/30/23 19:05 12/30/23 18:57 Room Air Diagnostic Findings Laboratory Results WBC 10.27 K/ul (4.8-10.8) 12/30/23 19:10 RBC 4.86 M/uL (4.70-6.10) 12/30/23 19:10 Hgb 16.0 g/dl (14.0-18.0) 12/30/23 19:10 Hct 45.6 % (42.0-52.0) 12/30/23 19:10 MCV 93.8 fL (80.0-100.0) 12/30/23 19:10 MCH 32.9 pg (25.0-34.0) 12/30/23 19:10 MCHC 35.1 g/dL (32.0-36.0) 12/30/23 19:10 RDW Std Deviation 61.1 fL (36.4-46.3) H 12/30/23 19:10 RDW Coeff of Joe 17.7 % (11.5-14.5) H 12/30/23 19:10 Plt Count 76 K/uL (130-400) L 12/30/23 19:10 MPV 10.7 fL (9.4-12.4) 12/30/23 19:10 Immature Gran % (Auto) 0.4 % 12/30/23 19:10 Neut % (Auto) 54.6 % 12/30/23 19:10 Lymph % (Auto) 35.5 % 12/30/23 19:10 [place] % (Auto) 7.4 % 12/30/23 19:10 Eos % (Auto) 1.4 % 12/30/23 19:10 Baso % (Auto) 0.7 % 12/30/23 19:10 Neut # (Auto) 5.61 K/uL (1.40-6.50) 12/30/23 19:10 Lymph # (Auto) 3.65 K/uL (1.20-3.40) H 12/30/23 19:10 [place] # (Auto) 0.76 K/uL (0.11-0.59) H 12/30/23 19:10 Eos # (Auto) 0.14 K/uL (0.00-0.50) 12/30/23 19:10 Baso # (Auto) 0.07 K/uL (0.00-0.20) 12/30/23 19:10 Immature Gran # (Auto) 0.04 K/uL (0.01-0.20) 12/30/23 19:10 PT 16.7 Seconds (9.0-12.0) H 12/30/23 19:10 INR 1.6 (0.9-1.1) H 12/30/23 19:10 APTT 33 Seconds (21-31) H 12/30/23 19:10 PTT Ratio 1.2 12/30/23 19:10 Sodium 142 mmol/L (136-145) 12/30/23 19:10 Potassium 3.6 mmol/L (3.5-5.1) 12/30/23 19:10 Chloride 102 mmol/L (98-107) 12/30/23 19:10 Carbon Dioxide 26 mmol/L (21-32) 12/30/23 19:10 Anion Gap 14 (3-11) H 12/30/23 19:10 BUN 7 mg/dl (6-23) 12/30/23 19:10 Creatinine 0.45 mg/dl (0.6-1.4) L 12/30/23 19:10 Est Cr Clr Drug Dosing 229.1 ml/min 12/30/23 19:10 eGFR 140.82 12/30/23 19:10 BUN/Creatinine Ratio 15.6 (10-20) 12/30/23 19:10 Glucose 121 mg/dl (70-99(Fasting)) H 12/30/23 19:10 Calcium 9.1 mg/dl (8.6-10.3) 12/30/23 19:10 Magnesium 1.9 mg/dl (1.7-2.4) 12/30/23 19:10 Total Bilirubin 3.4 mg/dl (0.2-1.0) H 12/30/23 19:10 AST 386 U/L (13-39) H 12/30/23 19:10 ALT 164 U/L (7-52) H 12/30/23 19:10 Alkaline Phosphatase 105 U/L (34-104) H 12/30/23 19:10 Total Protein 8.3 gm/dl (6.0-8.3) 12/30/23 19:10 Albumin 4.6 gm/dl (3.4-5.0) 12/30/23 19:10 Globulin 3.7 gm/dl (2.5-4.0) 12/30/23 19:10 Albumin/Globulin Ratio 1.2 (0.9-2) 12/30/23 19:10 Lipase 229 U/L (11-82) H 12/30/23 19:10 TSH 0.594 uIu/ml (0.300-4.500) 12/30/23 19:10 Salicylates < 3.0 mg/dl (3.0-30) L 12/30/23 19:10 Acetaminophen < 3 ug/ml (10-30) L 12/30/23 19:10 Ethyl Alcohol mg/dL 454.0 mg/dl (<10.0) H 12/30/23 19:10 SARS-CoV-2, RNA, NAAT NEGATIVE (NEGATIVE) 12/30/23 20:03 Blood Type A Positive 12/30/23 20:04 Antibody Screen NEGATIVE 12/30/23 20:04 Impressions Abdomen/Pelvis CT 12/30/23 20:04 Exam(s): CT ABDOMEN + PELVIS With Contrast IV Amt: 91 ml opti 320 EXAM: CT Abdomen and Pelvis With Intravenous Contrast CLINICAL HISTORY: Reason for exam: mid abd pain, etoh, bloody vomit, elev lipase. TECHNIQUE: Axial computed tomography images of the abdomen and pelvis with intravenous contrast. CTDI is 8 23.85 mGy and DLP is 1223.44 mGy-cm. Automated exposure control was utilized for the study. A dose lowering technique was utilized adhering to the principles of ALARA. CONTRAST: Patient received 91 ml opti 320 of IV contrast COMPARISON: No relevant prior studies available. FINDINGS: Lung bases: Unremarkable. No mass. No consolidation. ABDOMEN: Liver: There is heterogenous low density seen in the liver. There is periportal edema. There is recanalization of the umbilical vein. There is collateral vessels seen around the GE junction. Gallbladder and bile ducts: There is cholelithiasis. No ductal dilation. Pancreas: Mild inflammatory stranding seen in the upper retroperitoneum. No mass. No ductal dilation. Spleen: Splenomegaly measuring up to 17 cm in length.. Adrenals: Unremarkable. No mass. Kidneys and ureters: Unremarkable. No solid mass. No hydronephrosis. Stomach and bowel: There is mild gastric and duodenal wall thickening identified. Sigmoid colonic diverticulosis. No obstruction. PELVIS: Appendix: Normal appendix. Bladder: Unremarkable. No mass. Reproductive: Unremarkable as visualized. ABDOMEN and PELVIS: Intraperitoneal space: Unremarkable. No free air. No significant fluid collection. Bones/joints: No acute fracture. No dislocation. Vasculature: Unremarkable. No abdominal aortic aneurysm. Lymph nodes: Unremarkable. No enlarged lymph nodes. IMPRESSION: 1. Heterogeneous low-density in the liver similar to 12/03/23 study. Collateral vessels around the GE junction with recanalization of the umbilical vein suggestive of portal hypertension. 2. Mild gastric and duodenal wall prominence which could be from gastritis and duodenitis. 3. Mild peripancreatic stranding which could be from pancreatitis or portal hypertension 4. Splenomegaly Electronically signed by: Kannan Blanton MD 12/30/23 21:39 PM Code Status & VTE Plan VTE Prophylaxis Plan VTE Prophylaxis will be ordered: Yes
[2023-12-31] MEDS ORDERED: NITROGLYCERIN SL 0.4 MG/TAB TAB SL PRN (03:31)
[2023-12-31] MEDS ORDERED: LORazepam 2 MG/1 ML VIAL IV PRN ×3 (03:31)
[2023-12-31] MEDS ORDERED: Ativan IV Alcohol Withdrawal--Active Protocol IV PRN (03:31)
[2023-12-31] MEDS ORDERED: chlordiazePOXIDE ALCOHOL WITHDRAWL 25MG PO STA (03:31)
[2023-12-31] MEDS ORDERED: PANTOPRAZOLE BOLUS/DRIP IV STA (03:31)
[2023-12-31 03:48] LABS: Appearance Urine Clear (Clear); Bilirubin Urine 1+ (Negative); Blood Urine Negative (Negative); Cast Urine Automated 0-2 /lpf (0-2); Color Urine Dark Yellow; Epithelial Cell Urine Auto 0-2 /hpf (0-2); Glucose Urine UA Negative (Negative); Ketones Urine Trace (Negative); Leukocyte Esterase Urine Trace (Negative); Nitrite Urine Positive (Negative); Protein Urine 1+ (Negative); Specific Gravity Urine > 1.045 (1.000-1.030); Urobilinogen Urine Positive (Negative)
[2023-12-31 04:00] LABS: Bacteria Urine Automated 1+ (None Seen); RBC Urine Automated 0-2 /hpf (0-2)
[2023-12-31 04:01] LABS: Mucus Urine Present (None Prsent)
[2023-12-31] MEDS: chlordiazePOXIDE HCl 25 MG CAP PO SCH (04:05)
[2023-12-31 04:07] LABS: Amphetamines+Metham, Urine Neg (Neg); Barbiturates, Urine Neg (Neg); Benzodiazepine, Urine Pos (Neg); Cocaine, Urine Neg (Neg); Fentanyl, Urine Neg (Neg); MDMA (Ecstacy), Urine Neg (Neg); Marijuana, Urine Pos (Neg); Methadone, Urine Neg (Neg); Opiate, Urine Neg (Neg); Phencyclidine, Urine Neg (Neg)
[2023-12-31] MEDS: LACTATED RINGER'S 1,000 ML IV SCH (04:07)
[2023-12-31] MEDS: PANTOprazole 80 MG in DEXTROSE 5% 100 ML IV ONE (04:07)
--- OUTSIDE RECORDS SUMMARY | 2023-12-31 04:11 | External Medical Summary | Summary of Care ---
Author Name Unknown Organization [facility] Address [address] [place] [address] Phone [phone] Care Team Providers Care Senior Technical Support Engineer Name Role Phone Tami Upton MD Primary Care Provi elena Encounter Details Date Type Department Care Team (Late st Contact Info) Description 12/24/2023 1:40 PM EDT Telemedicine Hepatology, [facility] [address] [facility] [place] [address] Katty Hernandes DO [address] [facility] [place] [address] Alcoholic cirrhosis of liver with ascites (HCC)* Allergies No known active allergiesdocumented as of this encounter (statuses as of 12/24/2023) Medications Medication Sig Dispensed Refills Start Date [...] as of this encounter (statuses as of 12/24/2023) Active Problems Problem Noted Date Diagnosed Date [...] as of this encounter (statuses as of 12/24/2023) Resolved Problems Problem Noted Date Diagnosed Date [...] as of this encounter (statuses as of 12/24/2023) Immunizations Name Administration Dates Next Due Pneumococcal Conjugate Vaccine, 20-valent (Prevn ar20) 01/31/2023 Seasonal Influenza, PF, 6 M & above, IM , (FluLaval or Fluzone) 11/24/2022 TDAP (age 10 and older)(Boostrix) 01/31/2023 TDAP, Age 7 and older, IM (Adacel) 08/08/2011 documented as of this encounter Social History Tobacco Use Types Packs/Day Years Used Date Smoking Tobacco: Every Day Cigarettes 0.5 20.8 Started: 2003 Smokeless Tobacco: Never Alcohol Use [...] No 10/26/2022 Does the household have a [facility] source of income? 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 Seen by hepatology via telemedicine visit in [place] 04/11/2023 (Dr. Guthrie). Hehas PMHx of SANDI, OCD, alcohol use disorder among others. Patient was admitted to [facility] 03/29/23 - 04/02/23 for initially presenting with [...] years but then started drinking heavily again. He was at [facility] last year because his gums wouldn't stop bleeding and his platelet countwas below 10 and he had to get 2 blood transfusions. He states they were 66 after the blood transfusions. States he drank until he would run out of money. He states about 3 years ago was when he was first told he had elevated LFTs and he states they were in the 1000s at that time. MRI liver from 04/16/23 is concerning for cirrhosis with splenomegaly, small ascites, and small varices. He has never had a liver biopsy. He states he is following with an addiction medicine specialist in [place] and was recently diagnosed with Bipolar. He states he stopped taking acamprosate because his issue is insomnia and that's why he was drinking and that was not helping his insomnia. Liver biopsy was ordered last visit but he did not get this done. Serological work up negative for other causes of liver disease. Admitted in 08/25 at [facility] for alcohol detox - he was there for 6 days.Had an egd during his admission in 08/25 - egd by Dr. Bowling with g1ev done for reports of coffee ground emesis - started on nadolol by [facility].This was his 30th withdrawal he reports. Today he states he is still actively drinking. He is "doing what he can." Went back to detox in September, October, and November for detox but is still drinking. He is drinking about a pint of vodka every5 days. He states the detox is not helping him here and he doesn't want to be forced to stay for 5 days. He is taking neurontin and Invega, not helping. Past Medical History: Diagnosis Date INFORMATION viral [...] the evening and 10 mL before bedtime. Gabapentin 300 MG Oral Capsule (Neurontin) Take 1 Capsule by mouth in the morning and 1 Capsule before bedtime. Celecoxib 200 MG Oral Capsule (CeleBREX) Take 1 Capsule by mouth in the morning. (Patient taking differently: Take 1 Capsule by mouth in the morning. As needed .) 20 Capsule 2 Omeprazole 20 MG Oral Capsule Delayed Release (PriLOSEC) Take 1 Capsule by mouth in the morning. Furosemide 20 MG Oral Tablet (Lasix) Take 1 Tablet by mouth daily as needed (Leg swelling). 30 Tablet 2 Paliperidone ER 9 MG Oral Tablet Extended Release 24 Hour (Invega) Take 1 Tablet by mouth in the morning. 90 Tablet 3 Nadolol 40 MG Oral Tablet (Corgard) Take 1 Tablet by mouth in the morning. 90 Tablet 1 Pantoprazole Sodium 40 MG Oral Tablet Delayed Release (Protonix) Take 1 Tablet by mouth in the morning and 1 Tablet before bedtime. chlordiazePOXIDE HCl 5 MG Oral Capsule (Librium) Take 1 Capsule by mouth 3 times a day as needed for Anxiety. Take 10mg Breakfast, lunch and dinner on 10/16 Take 5 mg breakfast and dinner on 10/17 Vitamin B Complex Oral Tablet Take 1 Tablet by mouth in the morning. Magnesium Chloride 64 MG Oral Tablet Delayed Release (Mag-64) Take 1 Tablet by mouth in the morningand 1 Tablet before bedtime. No current facility-administered medications for this visit. Review of patient's allergies indicates: No Known Allergies Social History Socioeconomic History Marital status: Single Spouse name: Not on file Number of children: 0 Years of education: Not on file Highest education level: Not on file Occupational History Occupation: [employer] Tobacco Use Smoking status: Every Day Current packs/day: 0.50 Average packs/day: 0.5 packs/day for 20.8 years (10.4 ttl pk-yrs) Types: Cigarettes Start [...] Stability Do you currently live in a group home or have no steady place to sleep [...] - for ages0-17 years): Not on file Family History Problem Relation Name Age of [...] nourished male in no apparent distress. Eyes: mild scleral icterus Pulm: No respiratory distress Psychiatric: The patient is alert and oriented in all four spheres. Mood is euthymic. Affect is appropriate for the situation. Skin: No rashes were noted. Neuro: AAOx3 Labs: Reviewed MELD 3.0: 16 at 09/11/2023 10:52 AM Calculated from: Serum [...] years Sex: Male at 09/11/2023 10:52 AM BUN 6 - 20 mg/dL 12 CREATININE 0.6 - 1.2 mg/dL 0.6 EGFR >=60 mL/min >90 Comment: eGFR is calculated based on the CKD-EPI 2020 equation SODIUM 135 - 146 mmol/L 137 POTASSIUM 3.5 - 5.1 mmol/L 4.2 CHLORIDE 98 - 107 mmol/L 103 CO2 22 - 32 mmol/L 24 ANION GAP 7 - 15 mmol/L 10 GLUCOSE 70 - 120 mg/dL 91 CALCIUM 8.4 - 10.2 mg/dL 9.4 Prothrombin Time 11.6 - 15.2 seconds 20.9 High INR 0.8 - 1.2 1.8 High Component Ref Range & Units 09/11/23 1052 Comments BUN 6 - 20 mg/dL 10 CREATININE 0.6 - 1.2 mg/dL 0.6 EGFR >=60 mL/min >90 eGFR is calculated based on the CKD-EPI 2020 equation SODIUM 135 - 146 mmol/L 139 POTASSIUM 3.5 - 5.1 mmol/L 4.4 CHLORIDE 98 - 107 mmol/L 104 CO2 22 - 32 mmol/L 25 ANION GAP 7 - 15 mmol/L 10 GLUCOSE 70 - 120 mg/dL 79 Albumin 3.8 - 5.0 g/dL 3.6 Low AST 10 - 50 U/L 154 High Alkaline Phosphatase 35 - 130 U/L 111 Bilirubin, Total <=1.2 mg/dL 2.8 High CALCIUM 8.4 - 10.2 mg/dL 9.5 Protein 6.0 - 8.3 g/dL 6.6 ALT 10 - 50 U/L 119 High WBC 4.00 - 10.80 K/uL 4.73 RBC 4.50 - 5.25 M/uL 3.73 HGB 14.0 - 16.8 g/dL 12.5 Low HCT 40.0 - 48.4 % 36.3 Low MCV 82.0 - 99.5 fL 97.3 MCH 27.0 - 34.0 pg 33.5 MCHC 32.0 - 36.0 g/dL 34.4 RDW 11.5 - 15.5 % 16.6 PLT 140 - 400 K/uL 116 Low MPV 6.6 - 11.1 fL 9.7 Component Ref Range & Units 4 mo ago PEth 16:0/18:1 (POPEth) <20 ng/mL >400 High PEth 16:0/18:2 (PLPEth) <20 ng/mL >400 High Imaging: Reviewed MRI liver 04/16/2023: IMPRESSION Hepatomegaly. [...] diagnostic significance ASSESSMENT: Esdras Storey is a 33 year old male presenting for follow up of alcohol cirrhosis c/b EV and ascites. Seen by hepatology via telemedicine visit in [place] 04/11/2023 (Dr. Guthrie). He has PMHx of SANDI, OCD, alcohol use disorder among others. Plan: 1. History of alcohol abuse and concern for cirrhosis with ascites, varices, and splenomegaly on MRI imaging. Reports he was drinking 1 liter of vodka daily for over a decade. Has relapsed multiple times. Complete work up for causes of liver disease were all negative in 08/2023. Will check updated MELD score. Last MELD score was 16. Discussed given cirrhosis he will need abdominal imaging with AFP every 6 months. Last imaging MRI abdomen 04/2023 so he is due now for imaging. Adominal US ordered today. Discussed with cirrhosis we would refer for transplant if MELD score remains persistently above 15 but he needs to remain sober for at least 6 months and engage in alcohol counseling. He states that he is following with an addiction medicine specialist in [place]. But admits he hasn't followed up with them recently or done any recent alcohol counseling. He is actively drinking a pint ofvodka every 4 days. PETH ordered today. Admitted in 08/25 at [facility] for alcohol detox - he was there for 6 days. Had an EGD during his admission in 08/25 - egd by Dr. Bowling with g1ev done for reports of co ffee ground emesis - started on nadolol by [facility].This was his 30th withdrawal he reports. Another EGD done again in October at [facility] for reports of hematemesis. At that time found to have erosions at the GE junction, diffuse PHG, no mention of varices. Today when we discuss transplant candidacy he states it doesn't;t matter if he quits drinking because his mother or boyfriend could donate their liver even if he continues to drink. We discussed that even with a living donor you need to be abstinentfrom alcohol and can not continue to drink just because a family member is donating. Strongly encouraged getting back with addition medicine/counseling and stopping all alcohol completely. Discussed hepatic decompensation as he already has had small varices and ascites as well as alcohol hepatitis. 2. Vaccination. He has immunity against both hepatitis A and B on labs. 3. Alcohol abuse. I have advised the patient to abstain from drinking alcohol. The health risks imposed by heavy alcohol intake were discussed in detail. He states that he is following with an addiction medicine specialist in [place]. 4. 3 month follow up Katty Hernandes DO Gastroenterology and Hepatology I spent a total of 35 minutes on the date of service in review of patient's record, and previously obtained information in person and appropriate medical visit, discussion and education of plan, withpatient and/or caregiver, placing orders for tests/referral/procedures as medically necessary and documentation of pertinent clinical information in patient's medical records for their visit today. documented in this encounter Plan of Treatment Upcoming Encounters Date Type Department Care Team (Latest Contact Info) Description 02/14/2024 1:45 PM EST Hospital Encounter OR [facility], Operating Room [facility] [address] [place] [phone] Manuel Bashir DO [address] [place] [address] 02/14/2024 1:45 PM EST - 02/14/2024 2:10 PM EST Surgery OR [facility], Operating Room [facility] [address] [place] [address] Manuel Bashir DO [address] [place] [address] L-/S-SPINE PARAVERTEBRAL FACET INJ, 1 LEVEL 03/11/2024 7:35 AM EST Hospital Encounter OR [facility], Operating Room [facility] [address] [place] [phone] Mckay, Max Gerson, DO [address] [place] [address] 03/11/2024 7:35 AM EST - 03/11/2024 8:25 AM EST Surgery OR [facility], Operating Room [facility] [address] [place] [address] Manuel Bashir, DO [address] [place] [address] DESTROY LUMBAR SACRAL NERVE IMAGING SINGLE Scheduled Orders Name Type Priority Associated Diagnoses Orde r Schedule US ABDOMEN LIMITED Medical Imaging Routine Alcoholic cirrhosis of liver with ascites (HCC) Expected: 12/24/2023, Expires: 01/23/2025 HEPATIC FUNCTION PANEL Lab Routine Alcoholic cirrhosis of liver with ascites (HCC) Expected: 12/24/2023, Expires: 12/23/2024 PT INR Lab Routine Alcoholic cirrhosis of liver with ascites (HCC) Expected: 12/24/2023, Expires: 12/23/2024 CBC WITH WBC DIFFERENTIAL Lab Routine Alcoholic cirrhosis of liver with ascites (HCC) Expected: 12/24/2023, Expires: 12/23/2024 ALPHA-FETOPROTEIN TUMOR MARKER Lab Routine Alcoholic cirrhosis of liver with ascites (HCC) Expected: 12/24/2023, Expires: 12/23/2024 BASIC METABOLIC PANEL Lab Routine Alcoholic cirrhosis of liver with ascites (HCC) Expected: 12/24/2023, Expires: 12/23/2024 PHOSPHATIDYLETHANOL, BLOOD Lab Routine Alcoholic cirrhosis of liver with ascites (HCC) Expected: 12/24/2023, Expires: 12/23/2024 Scheduled Procedures Name Priority Associated Diagnoses Date/Ti me L-/S-SPINE PARAVERTEBRAL FAC ET INJ, 1 LEVEL Spondylosis of lumbar region without myelopathy or radiculopathy 02/14/2024 1:45 PM EST L-/S-SPINE PARAVERTEBRAL FAC ET INJ, 2 LEVELS Spondylosis of lumbar region without myelopathy or radiculopathy 02/14/2024 1:45 PM EST DESTROY LUMBAR SACRAL NERVE IMAGING SINGLE Spondylosis of lumbar region without myelopathy or radiculopathy 03/11/2024 7:35 AM EST DESTROY LUMBAR SACRAL NERVE IMAGING ADD'L Spondylosis of lumbar region without myelopathy or radiculopathy 03/11/2024 7:35 AM EST ESOPHAGOGASTRODUODENOSCOPY ( EGD), FLEXIBLE, TRANSORAL, ENDOSCOPIC [...] Visit Diagnoses Diagnosis Alcoholic cirrhosis of liver with ascites (HCC)- Primary Alcoholic cirrhosis of liver Spondylosis of lumbar region without myelopathy or [...] Advance Directives occurred with: Patient Care Teams Senior Technical Support Engineer Relationship Specialty Start Date End Date Tami Upton MD [address] [place] [phone] PCP - General Family Medicine 11/12/23 documented as of this encounter
--- OUTSIDE RECORDS SUMMARY | 2023-12-31 04:11 | External Medical Summary | Summary of Care ---
Author Name Unknown Organization [facility] Address [address] [place] [address] Phone [phone] Care Team Providers Care Staff Veterinarian Name Role Phone Tami Upton MD Primary Care Provi elena Encounter Details Date Type Department Care Team (Latest Contact Info) Description 08/09/2023 1:50 PM EDT - 08/09/2023 11:59 PM EDT Hospital Encounter Radiology Film File [address], [place] [id number] Discharge Disposition: Home - Self Care Allergies No known active allergiesdocumented as of this encounter (statuses as of 12/06/2023) Medications Medication Sig Dispensed Refills Start Date End Date Status Folic Acid 1 MG Oral Tablet Take 1 Tablet by mouth in the morning. 30 Tablet 2 06/26/2023 Active Melatonin 10 MG Oral Tablet Chewable Take by mouth. Activ e documented as of this encounter (statuses as of 12/06/2023) Active Problems Problem Noted Date Diagnosed Date [...] as of this encounter (statuses as of 12/06/2023) Resolved Problems Problem Noted Date Diagnosed Date [...] as of this encounter (statuses as of 12/06/2023) Immunizations Name Administration Dates Next Due Pneumococcal [...] Description 12/12/2023 7:45 AM EDT Telemedicine Orthopaedics [facility] [address] [place] [address] Iván Vyas MD [address] [place], [place] [phone] 12/24/2023 1:40 PM EDT Telemedicine Hepatology, [facility] [address] [place] [address] Katty Hernandes, DO [address] [place] [address] 02/14/2024 1:45 PM EST Hospital Encounter OR [facility], Operating Room [facility] [address] [place] [address] Manuel Bashir, DO [address] [place] [address] 02/14/2024 1:45 PM EST - 02/14/2024 2:10 PM EST Surgery OR [facility], Operating Room [facility] [address] [place] [address] Manuel Bashir, DO [address] [place] [address] L-/S-SPINE PARAVERTEBRAL FACET INJ, 1 LEVEL Scheduled [...] Comments Depression Screening 08/05/2015 08/04/2014 COVID-19 Vaccine (2023- season) 2023 Influenza Vaccine (FLU shot) (#1) [...] Procedure Name Priority Date/Time Associated Diagnosis Comments RADIOLOGY EXAM - US (IMAGES ONLY, NO REPORT) Routine 08/09/2023 1:50 PM EDT documented in this encounter Results * RADIOLOGY EXAM - US (IMAGES ONLY, NO REPORT) (08/09/2023 1:50 PM EDT) 08/09/2023 1:49 PM EDT Narrative Scheduling, Silent - 12/05/2023 3:04 PM EDT This is an imaging study not interpreted or resulted by a [employer] or [employer] contracted radiologist. Katty Hernandes DO RAD ULTRASOUND documented in this encounter Advance Directives * Full Code (Latest Code Status on File) Date Activated Date Inactivated Comments 03/29/2023 1:43 PM 04/02/2023 2:03 PM This order r eflects the patients wishes and were consensually agreed upon. Question Answer Comments Discussion of Advance Directives occurred with: Patient Care Teams Staff Veterinarian Relationship Specialty Start Date End Date Tami Upton MD [address] [place] [address] [place] [phone] PCP - General Family Medicine 06/19/23 11/11/23 documented as of this encounter
--- OUTSIDE RECORDS SUMMARY | 2023-12-31 04:11 | External Medical Summary | Summary of Care ---
Author Name Unknown Organization [facility] Address [address] [place] [address] Phone [phone] Care Team Providers Care Medical Record Transcriber Name Role Phone Tami Upton MD Primary Care Provi elena Reason for Visit * Reason Comments Follow Up Encounter Details Date Type Department Care Team (Late st Contact Info) Description 12/12/2023 7:45 AM EDT Telemedicine Orthopaedics [facility] [address] [place] [address] Iván Vyas MD [address] [place] [phone] Rotator cuff impingement syndrome of right shoulder* Allergies No known active allergiesdocumented as of this encounter (statuses as of 12/12/2023) Medications Medication Sig Dispensed Refills Start Date [...] as of this encounter (statuses as of 12/12/2023) Active Problems Problem Noted Date Diagnosed Date [...] as of this encounter (statuses as of 12/12/2023) Resolved Problems Problem Noted Date Diagnosed Date [...] as of this encounter (statuses as of 12/12/2023) Immunizations Name Administration Dates Next Due Pneumococcal [...] as of this encounter Progress Notes * Iván Vyas MD - 12/12/2023 7:42 AM EDT Called patient is phone to discuss his shoulder pain. Phone was sent to [employer]. Left a message for patient to call the office if he has any questions or concerns. documented in this encounter Plan of Treatment Upcoming Encounters Date Type Department Care Team (Latest Contact Info) Description 12/24/2023 1:40 PM EDT Telemedicine Hepatology, [facility] [address] [place], [place] [address] Katty Hernandes, DO [address] [place], [place] [address] 02/14/2024 1:45 PM EST Hospital Encounter OR [facility], Operating Room [facility] [address] [place] [address] Manuel Bashir, DO [address] [place] [address] 02/14/2024 1:45 PM EST - 02/14/2024 2:10 PM EST Surgery OR [facility], Operating Room [facility] [address] [place] [address] Manuel Bashir, DO [address] [place], [place] [address] L-/S-SPINE PARAVERTEBRAL FACET INJ, 1 LEVEL 03/11/2024 7:35 AM EST Hospital Encounter OR [facility], Operating Room [facility] [address] [place] [address] Manuel Bashir DO [address] [place] [address] 03/11/2024 7:35 AM EST - 03/11/2024 8:25 AM EST Surgery OR [facility], Operating Room [facility] [address] [place] [address] Manuel Bashir DO [address] [place] [address] DESTROY LUMBAR SACRAL NERVE IMAGING SINGLE Scheduled Procedures Name Priority Associated Diagnoses Date/Ti [...] as of this encounter Visit Diagnoses Diagnosis Rotator cuff impingement syndrome of right shoulder- Primary Spondylosis of lumbar region without myelopathy or [...] Directives occurred with: Patient Care Teams Medical Record Transcriber Relationship Specialty Start Date End Date Tami Upton MD [address] [place] [phone] PCP - General Family Medicine 11/12/23 documented as of this encounter
--- OUTSIDE RECORDS SUMMARY | 2023-12-31 04:11 | External Medical Summary | Summary of Care ---
Author Name Unknown Organization [facility] Address [address] [place] [address] Phone [phone] Care Team Providers Care Campground Manager Name Role Phone Tami Upton MD Primary Care Provi elena Encounter Details Date Type Department Care Team (Late st Contact Info) Description 08/09/2023 Orders Only Gastroenterology, [facility] [address] [facility] [place] [address] Katty Hernandes DO [address] [place] [address] Allergies No known active allergiesdocumented as of this encounter (statuses as of 12/05/2023) Medications Medication Sig Dispensed Refills Start Date End Date Status Folic Acid 1 MG Oral Tablet Take 1 Tablet by mouth in the morning. 30 Tablet 2 06/26/2023 Active Melatonin 10 MG Oral Tablet Chewable Take by mouth. Activ e documented as of this encounter (statuses as of 12/05/2023) Active Problems Problem Noted Date Diagnosed Date [...] as of this encounter (statuses as of 12/05/2023) Resolved Problems Problem Noted Date Diagnosed Date [...] as of this encounter (statuses as of 12/05/2023) Immunizations Name Administration Dates Next Due Pneumococcal [...] 7:45 AM EDT Telemedicine Orthopaedics [facility] [address] [place] [address] Iván Vyas MD [address] [place] [phone] 12/24/2023 1:40 PM EDT Telemedicine Hepatology, [facility] [address] [place] [address] Katty Hernandes DO [address] [place] [address] 02/14/2024 1:45 PM EST Hospital Encounter OR [facility], Operating Room [facility] [address] [place] [address] Manuel Bashir, DO [address] [place] [address] 02/14/2024 1:45 PM EST - 02/14/2024 2:10 PM EST Surgery OR [facility], Operating Room [facility] [address] [place] [address] Manuel Bashir, DO [address] [place] [phone] L-/S-SPINE PARAVERTEBRAL FACET INJ, 1 LEVEL Scheduled [...] study not interpreted or resulted by a [employer] or [employer] contracted radiologist. Katty Hernandes DO RAD ULTRASOUND documented in this encounter Advance Directives * Full Code (Latest Code Status on File) Date Activated Date Inactivated Comments 03/29/2023 1:43 PM 04/02/2023 2:03 PM This order r eflects the patients wishes and were consensually agreed upon. Question Answer Comments Discussion of Advance Directives occurred with: Patient Care Teams Campground Manager Relationship Specialty Start Date End Date Tami Upton MD [address] [place] [phone] PCP - General Family Medicine 11/12/23 documented as of this encounter
[2023-12-31] MEDS: PANTOprazole 40 MG in DEXTROSE 5% MINI-B 100 ML IV SCH (04:28)
[2023-12-31 05:42] LABS: Basophils # (auto) 0.04 K/uL (0.00-0.20); Basophils % (auto) 0.5 %; Eosinophils # (auto) 0.19 K/uL (0.00-0.50); Eosinophils % (auto) 2.4 %; Hematocrit (blood only) 40.4 % (42.0-52.0); Hemoglobin 13.9 g/dl (14.0-18.0); Immature Granulocytes # (auto) 0.01 K/uL (0.01-0.20); Immature Granulocytes % (auto) 0.1 %; Lymphocytes # (auto) 3.52 K/uL (1.20-3.40); Lymphocytes % (auto) 44.1 %; Mean Corpuscular Hemoglobin 32.7 pg (25.0-34.0); Mean Corpuscular Hgb Conc 34.4 g/dL (32.0-36.0); Mean Corpuscular Volume 95.1 fL (80.0-100.0); Mean Platelet Volume 10.8 fL (9.4-12.4); Monocytes % (auto) 6.3 %; Neutrophils # (auto) 3.72 K/uL (1.40-6.50); Neutrophils % (auto) 46.6 %; Platelet Count 55 K/uL (130-400); RDW Coefficient of Variation 17.8 % (11.5-14.5); RDW Standard Deviation 62.2 fL (36.4-46.3); Red Blood Count 4.25 M/uL (4.70-6.10); White Blood Count 7.98 K/ul (4.8-10.8)
[2023-12-31 05:55] LABS: Bilirubin Direct 1.1 mg/dl (0-0.2); Calcium 8.4 mg/dl (8.6-10.3); Creatinine Clr Calc Pharmacy 206.2 ml/min; Magnesium 1.7 mg/dl (1.7-2.4); Potassium 3.6 mmol/L (3.5-5.1)
[2023-12-31] MEDS: THIAMINE HCL 100 MG in SYRINGE 9 ML IV SCH (08:52)
[2023-12-31] MEDS: FOLIC ACID 1 MG in SYRINGE 9.8 ML IV SCH (08:52)
[2023-12-31] MEDS: MULTIVITAMIN TAB PO SCH (08:52)
--- NOTE | 2023-12-31 11:18 | Electrocardiogram Report ---
Test Reason : Blood Pressure : */* mmHG Vent. Rate : 100 BPM Atrial Rate : 100 BPM P-R Int : 160 ms QRS Dur : 96 ms QT Int : 392 ms P-R-T Axes : 53 63 41 degrees QTcB Int : 505 ms Normal sinus rhythm Prolonged QT Abnormal ECG When compared with ECG of 16-Oct-2023 11:01, Vent. rate has increased by 43 bpm Confirmed by Rfaael Sky ([id number]) on 12/31/2023 11:18:06 AM Referred By: REFERRED SELF Confirmed By: Rafael Sky
--- NOTE | 2023-12-31 11:58 | Communication Note ---
Date of Service: December 31, 2023 Patient seen and examined at bedside He is lying on the bed; reports that he is comfortable. He denies tremors, anxiety, hallucinations, chest pain or shortness of breath Reports that his withdrawal symptoms are well-controlled on the medication Physical examination; Constitutional: Alert oriented x 3; not in distress. No tremors/hallucination Respiratory: normal respiratory effort, lungs clear to auscultation, no wheeze, rales, rhonchi. Normal insp/exp effort, no accessory muscle use Cardiovascular: RRR, no murmur, no edema Vessels: no JVD or carotid bruit Chest: normal inspection of chest Abdomen: Soft, nontender. Bowel sound present Musculoskeletal: no cyanosis or clubbing, extremities motor strength 5/5 Skin: no rashes, warm and dry normal turgor Neurologic: PERRL, EOMI, accommodation nl, no face palsy, no dysarthria CN's II- XI intact bilaterally and moves all extremities Psychiatric: A+Ox3, euthymic affect Assessment/plan Alcohol intoxication Alcohol withdrawal History of alcohol use disorder Continue Librium taper And as needed Ativan Coffee-ground emesis Possible upper GI bleed Continue Protonix drip Cardiology consulted; appreciate recommendation Alcoholic hepatitis Discriminant function 25 MELD score 16 Follow up on repeat blood work Supportive care Possible pancreatitis On CT scan/ pelvis Mild elevation of lipase IV fluids advance diet as tolerated Ongoing tobacco abuse Needs counseling Please note the above document was generated using voice recognition software. It may contain grammatical, syntax or spelling errors. Any formal questions or concerns about the content, text or information contained within the body of this dictation should be directly addressed to the provider for clarification
--- NOTE | 2023-12-31 12:03 | Gastrointestinal Consultation ---
Date of Consultation December 31, 2023 Assessment & Plan (1) Coffee ground emesis: (2) Alcohol abuse: (3) Cirrhosis: Plan -Patient needs to be on Protonix 40 mg BID as he has known portal hypertensive gastropathy noted on EGD in October 2023. This is likely the cause of dark emesis when he becomes intoxicated. No ongoing GI bleeding. H/H stable. No plan for repeat EGD at present. -MELD 16, Maddrey's 24.6, no role for steroids -CT imaging without acute GI/hepatology concerns; Will need ongoing hepatology follow-up with Dr. Hernandes of [facility] hepatology as an outpatient for ongoing HCC surveillance, variceal surveillance, and lab monitoring. - Trend H&H - Strict ETOH cessation - ETOH withdrawal protocol per primary team - Encourage ETOH rehabilitation programs -No NSAIDs -Avoid hepatotoxins -Limit sodium to <2000 mg daily -Limit acetaminophen to <2000 mg daily in q 6 hr divided doses Supervising Physician Co-Signing Physician Notes I examined the patient and reviewed patient's chart , laboratory data and imaging studies. I agree with with assessment and plan of care as suggested by advanced practice provider. History of Present Illness Reason for Consultation: Coffee ground emesis, elevated LFTs, alcoholism Attending Physician: Tyler Hung MD History of Present Illness Patient is a 33 yo male with PMH of alcoholism, alcoholic cirrhosis followed by hepatology, compression fractures of the lumbar and thoracic spine, OCD, medical marijuana use, anxiety who presented due to alcohol intoxication. He was recently admitted for the same issue repeatedly. He was seen by our service earlier this month due to alcohol withdrawal syndrome and alcoholic hepatitis. He had coffee ground emesis at that time and he has that again as well during this admission. He had an EGD for this same issue in October 2023 without significant findings outside of portal hypertensive gastropathy. He left AMA during previous admissions. He wishes to detox from alcohol this admission. He drinks a fifth of vodka daily. He has had seizures from alcohol use. H/H 13.9/40.4. He is prescribed Protonix as an outpatient and notes he stops taking that when he goes on an alcohol childress. T bili 3.0, D bili 1.1. AST 333, ALT 142. CT Findings: 1. Heterogeneous low-density in the liver similar to 12/03/23 study. Collateral vessels around the GE junction with recanalization of the umbilical vein suggestive of portal hypertension. 2. Mild gastric and duodenal wall prominence which could be from gastritis and duodenitis. 3. Mild peripancreatic stranding which could be from pancreatitis or portal hypertension 4. Splenomegaly He takes Nadolol 40 mg daily. He also takes Furosemide 20 mg daily. He denies ongoing hematemesis. MELD 16. Maddrey's score 24.6. Allergies Allergy/AdvReac Type Severity Reaction Status Date / Time No Known Allergies Allergy Verified 12/03/23 21:31 Home Medications Medication Instructions Recorded Confirmed Type celecoxib 200 mg capsule 200 mg PO QAM 10/14/23 12/03/23 History folic acid 1 mg tablet 1 mg PO QAM 10/14/23 12/03/23 History furosemide 20 mg tablet 20 mg PO DAILY PRN .leg swelling 10/14/23 12/03/23 History gabapentin 300 mg capsule 300 mg PO QAM 10/14/23 12/03/23 History gabapentin 300 mg capsule 600 mg PO QPM 10/14/23 12/03/23 History melatonin 10 mg tablet 20 mg PO HS 10/14/23 12/03/23 History multivitamin 1 tab PO DAILY 10/14/23 12/03/23 History nadolol 40 mg tablet 40 mg PO QAM 10/14/23 12/03/23 History paliperidone 9 mg tablet,extended 9 mg PO QAM 10/14/23 12/03/23 History release 24 hr vitamin B complex 1 tab PO DAILY 10/14/23 12/03/23 History magnesium chloride 64 mg 64 mg PO BID #60 tabs 10/16/23 12/03/23 Rx (magnesium chloride) tablet pantoprazole 40 mg tablet,delayed 40 mg PO BID #60 tabs 10/16/23 12/03/23 Rx release Patient History Medical History HTN (hypertension) Thrombocytopenia OCD (obsessive compulsive disorder) Insomnia Bipolar 1 disorder Tobacco abuse Alcohol dependence Compression fracture of T12 vertebra Compression fracture of L1 lumbar vertebra Hepatosplenomegaly Mixed hyperlipidemia Alcohol abuse Surgical History Hx of tonsillectomy Hx of colonoscopy 2014, WNL, internal hemorrhoids Social History Smoking Status: Current every day smoker Tobacco Type: Cigarettes Cigarettes Per Day: 10; Do You Dip or Chew Tobacco: No; Tobacco Cessation Education Requested by Patient: No Hx Alcohol Use: Yes Alcohol type: hard liquor Hx Substance Use: Yes Last Used Substance: Unknown Substance Use Type Other:: medical marijuana Preferred Language: Finnish Communication Ability: Effective 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 Beliefs That Will Affect Care: None Current Living Situation: Significant Other Feels Safe at Home: Yes Safety Concerns: Feels Safe At This Time Assistive Devices: Glasses Review of Systems Constitutional: no fever and no chills Respiratory: no cough and no dyspnea Cardiovascular: no chest pain Gastrointestinal: + hematemesis (now resolved) Physical Exam Constitutional: no acute distress Respiratory: normal respiratory effort Cardiovascular: Rate/Rhythm: regular rate Gastrointestinal (Abdomen): normal bowel sounds, soft, nontender, no hepatosplenomegaly Psychiatric: Orientation: alert and oriented x 3 Results & Data Vital Signs (Past 12 Hours) Vital Signs Temp Pulse Pulse Resp BP BP Pulse Ox 12/31/23 11:55 36.9 C 103 H 18 125/63 95 12/31/23 07:44 36.7 C 98 H 18 133/66 94 12/31/23 05:50 83 12/31/23 03:25 103 H 12/31/23 03:18 36.7 C 77 14 156/82 H 96 12/31/23 03:09 90 16 145/102 H 98 12/31/23 03:00 145/102 H 12/31/23 02:58 113 H 12/31/23 02:45 96 H 17 96 12/31/23 02:30 95 H 17 95 12/31/23 02:30 134/87 12/31/23 02:12 95 H 17 95 12/31/23 02:00 134/87 12/31/23 02:00 134/87 12/31/23 01:54 95 H 17 95 12/31/23 01:51 96 H 18 95 12/31/23 01:42 94 H 17 95 12/31/23 01:36 92 H 18 95 12/31/23 01:30 130/81 12/31/23 01:30 130/81 12/31/23 01:30 130/81 12/31/23 01:24 92 H 17 96 12/31/23 01:15 96 H 16 97 12/31/23 01:00 94 H 16 97 12/31/23 01:00 126/84 12/31/23 01:00 126/84 12/31/23 00:51 91 H 16 97 12/31/23 00:45 91 H 16 97 12/31/23 00:33 88 18 99 12/31/23 00:31 145/98 H 12/31/23 00:31 145/98 H 12/31/23 00:24 109 H 18 97 12/31/23 00:21 102 H 17 99 12/31/23 00:12 107 H 16 99 O2 Del Method O2 Flow Rate 12/31/23 11:55 Room Air 12/31/23 07:44 Room Air 12/31/23 05:50 12/31/23 03:25 12/31/23 03:18 Room Air 12/31/23 03:09 Room Air 12/31/23 03:00 12/31/23 02:58 12/31/23 02:45 12/31/23 02:30 12/31/23 02:30 12/31/23 02:12 12/31/23 02:00 12/31/23 02:00 12/31/23 01:54 12/31/23 01:51 12/31/23 01:42 12/31/23 01:36 12/31/23 01:30 12/31/23 01:30 12/31/23 01:30 12/31/23 01:24 12/31/23 01:15 12/31/23 01:00 12/31/23 01:00 12/31/23 01:00 12/31/23 00:51 12/31/23 00:45 Nasal Cannula 3 12/31/23 00:33 12/31/23 00:31 12/31/23 00:31 12/31/23 00:24 12/31/23 00:21 12/31/23 00:12 PG Care Time/CCT Total # of Minutes Spent Total Time Spent with Patient: Total time spent is greater than 50% in coordination of care (as documented) at patient's floor/unit and/or counseling patient: Coding Level of Care Code 82177 IN/OBS CONSULT LVL 4,60M Diagnoses Coffee ground emesis K92.0 Alcohol abuse F10.10 Cirrhosis K74.60 Hepatic cirrhosis type: alcoholic cirrhosis (3) Cirrhosis Hepatic cirrhosis type: alcoholic cirrhosis
[2024-01-01] MEDS: chlordiazePOXIDE HCl 25 MG CAP PO SCH (05:33)
[2024-01-01 06:43] LABS: Albumin Globulin Ratio 1.4 (0.9-2); Albumin Level 3.6 gm/dl (3.4-5.0); BUN Creatinine Ratio 18.9 (10-20); Bilirubin,Total 4.9 mg/dl (0.2-1.0); Calcium 8.9 mg/dl (8.6-10.3); Creatinine Clr Calc Pharmacy 212.8 ml/min; Globulin 2.6 gm/dl (2.5-4.0); Potassium 3.8 mmol/L (3.5-5.1); Total Protein 6.2 gm/dl (6.0-8.3)
[2024-01-01 07:06] LABS: Hematocrit (blood only) 34.3 % (42.0-52.0); Hemoglobin 12.3 g/dl (14.0-18.0); Mean Corpuscular Hemoglobin 33.6 pg (25.0-34.0); Mean Corpuscular Hgb Conc 35.9 g/dL (32.0-36.0); Mean Corpuscular Volume 93.7 fL (80.0-100.0); Mean Platelet Volume 11.7 fL (9.4-12.4); Platelet Count 26 K/uL (130-400); RDW Coefficient of Variation 17.1 % (11.5-14.5); RDW Standard Deviation 58.9 fL (36.4-46.3); Red Blood Count 3.66 M/uL (4.70-6.10); White Blood Count 5.07 K/ul (4.8-10.8)
[2024-01-01 07:07] LABS: Basophils # (auto) 0.03 K/uL (0.00-0.20); Basophils % (auto) 0.6 %; Eosinophils # (auto) 0.16 K/uL (0.00-0.50); Eosinophils % (auto) 3.2 %; Immature Granulocytes # (auto) 0.04 K/uL (0.01-0.20); Immature Granulocytes % (auto) 0.8 %; Lymphocytes # (auto) 1.99 K/uL (1.20-3.40); Lymphocytes % (auto) 39.3 %; Monocytes # (auto) 0.36 K/uL (0.11-0.59); Monocytes % (auto) 7.1 %; Neutrophils # (auto) 2.49 K/uL (1.40-6.50); Platelet Estimate Signific. Decreased (Normal)
[2024-01-01] MEDS: ONDANSETRON INJ 2 MG/ML 2 ML VIAL IV PRN (12:47)
--- NOTE | 2024-01-01 15:22 | Hospitalist Progress Note ---
Date of Service January 01, 2024 Assessment & Plan (1) Alcohol intoxication: Plan: 33 yo M w/ PMH of ongoing alcoholism, alcoholic cirrhosis of liver without ascites, esophageal varices and cirrhosis, portal hypertensive gastropathy, compression fraction of L1 and T12 vertebrae, chronic midline thoracic pain, smoking, obsessive-compulsive disorder, medical marijuana use, generalized anxiety disorder comes because of ongoing alcoholism and coffee-ground emesis and also found to have elevated LFTs. Patient was in the hospital in first week of December 2023 with alcohol withdrawal syndrome and alcohol hepatitis. During that admission also he had coffee-ground emesis. Seen by GI. At that time no EGD was done as hemoglobin was stable and he already had EGD in October 2023. And patient left AMA. Patient comes back today for alcohol detox. He states he was drinking a liter of vodka daily and sometimes whiskey. 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 He had a history of alcohol withdrawal seizures about 3 years ago. After last admission, he was again drinking heavily. He is being managed for the following: Alcohol intoxication Risks of alcohol withdrawal History of alcohol use disorder Admitting alcohol level of 454, patient reports drinking vodka on 12/30 prior to arrival. Patient states that he drinks 1 L of vodka daily. Patient has history of leaving AMA in the past and going back to drinking heavily. Continue with Librium taper, THO S protocol, folic acid and multivitamin and thiamine. Continue telemetry monitoring. Alcohol cessation counseling done, patient states that He will stop drinking this time. Coffee-ground emesis: Admitting hemoglobin of 16, following day hemoglobin stable around 12-13. EGD in October 2023 showed erosions in the esophagus. Admitting CTAP suggestive of gastritis and duodenitis. Continue with Protonix drip. Monitor H&H. GI evaluating, appreciate recommendation. Avoid NSAIDs. Alcoholic hepatitis: Admitting MELD score of 16, GI evaluated, appreciate recommendation. Supportive care. Possible pancreatitis: CT scan suggestive of pancreatitis. Mild elevation of l ipase at presentation. Patient with no further nausea or vomiting or abdominal pain. Continue to monitor. Alcohol liver cirrhosis Portal hypertensive gastropathy Chronic thrombocytopenia: Secondary to cirrhosis Needs follow-up, follow-up with hepatology on discharge. ammonia level WNL. Platelet with significant drop to 26K today, repeat CBC in the afternoon. Ongoing tobacco abuse: Patient counseled. Chronic back pain secondary to compression fracture Mood disorder/OCD per records DVT prophylaxis: SCDs Disposition: Telemetry for now Full code Admission and Anticipated Discharge Date Admission Date: December 31, 2023 Subjective patient was seen and examined at bedside. Patient was lying in bed, on room air, NAD, resting comfortably. Patient reports nausea and getting better but he still has recurrent nausea every 4-5 hours. Patient reports last vomiting was in the ED. No further vomiting. Patient denies belly pain. Patient states that he will quit drinking going forward. Physical Exam Physical Exam: Constitutional: Alert oriented x 3; not in distress. No tremors/hallucination Respiratory: normal respiratory effort, lungs clear to auscultation, no wheeze, rales, rhonchi. Normal insp/exp effort, no accessory muscle use Cardiovascular: RRR, no murmur, no edema Vessels: no JVD or carotid bruit Chest: normal inspection of chest Abdomen: Soft, nontender. Bowel sound present Musculoskeletal: no cyanosis or clubbing, extremities motor strength 5/5 Skin: no rashes, warm and dry normal turgor Neurologic: PERRL, EOMI, accommodation nl, no face palsy, no dysarthria CN's II- XI intact bilaterally and moves all extremities Psychiatric: A+Ox3, euthymic affect Results & Data Results & Data Vital Signs (Past 12 Hours) Vital Signs Temp Pulse Resp BP Pulse Ox O2 Del Method 01/01/24 10:50 36.7 C 69 18 129/67 97 Room Air 01/01/24 07:48 36.7 C 87 18 155/75 H 96 Room Air
[2024-01-01 16:39] LABS: Basophils # (auto) 0.01 K/uL (0.00-0.20); Basophils % (auto) 0.2 %; Eosinophils # (auto) 0.18 K/uL (0.00-0.50); Hematocrit (blood only) 37.2 % (42.0-52.0); Hemoglobin 12.9 g/dl (14.0-18.0); Immature Granulocytes # (auto) 0.02 K/uL (0.01-0.20); Immature Granulocytes % (auto) 0.4 %; Lymphocytes # (auto) 1.24 K/uL (1.20-3.40); Lymphocytes % (auto) 27.6 %; Mean Corpuscular Hemoglobin 32.5 pg (25.0-34.0); Mean Corpuscular Hgb Conc 34.7 g/dL (32.0-36.0); Mean Corpuscular Volume 93.7 fL (80.0-100.0); Mean Platelet Volume 12.1 fL (9.4-12.4); Monocytes # (auto) 0.38 K/uL (0.11-0.59); Monocytes % (auto) 8.5 %; Neutrophils # (auto) 2.66 K/uL (1.40-6.50); Neutrophils % (auto) 59.3 %; Platelet Count 29 K/uL (130-400); RDW Coefficient of Variation 16.8 % (11.5-14.5); RDW Standard Deviation 58.4 fL (36.4-46.3); Red Blood Count 3.97 M/uL (4.70-6.10); White Blood Count 4.49 K/ul (4.8-10.8)
[2024-01-02 06:47] LABS: Hematocrit (blood only) 34.1 % (42.0-52.0); Hemoglobin 12.3 g/dl (14.0-18.0); Mean Corpuscular Hgb Conc 36.1 g/dL (32.0-36.0); Mean Corpuscular Volume 91.4 fL (80.0-100.0); Mean Platelet Volume 12.1 fL (9.4-12.4); Platelet Count 26 K/uL (130-400); RDW Coefficient of Variation 16.9 % (11.5-14.5); RDW Standard Deviation 56.8 fL (36.4-46.3); Red Blood Count 3.73 M/uL (4.70-6.10); White Blood Count 5.87 K/ul (4.8-10.8)
[2024-01-02 07:02] LABS: Albumin Globulin Ratio 1.5 (0.9-2); Albumin Level 3.8 gm/dl (3.4-5.0); BUN Creatinine Ratio 10.3 (10-20); Bilirubin,Total 7.1 mg/dl (0.2-1.0); Calcium 9.1 mg/dl (8.6-10.3); Creatinine Clr Calc Pharmacy 198.8 ml/min; Globulin 2.6 gm/dl (2.5-4.0); Magnesium 1.4 mg/dl (1.7-2.4); Phosphorus 2.1 mg/dl (2.5-4.9); Potassium 3.5 mmol/L (3.5-5.1); Total Protein 6.4 gm/dl (6.0-8.3)
[2024-01-02 10:58] LABS: 7-Aminoclonaz, Confirm NEGATIVE ng/mL (<25); Hydro-Alp Ur, GC/MS NEGATIVE ng/mL (<25); Hydroxyethylflurazepam, Conf NEGATIVE ng/mL (<50); Hydroxymidazolam Ur, GC/MS NEGATIVE ng/mL (<50); Hydroxytriazolam NEGATIVE ng/mL (<50); Lorazepam, Ur GC/MS 114 ng/mL (<50); Marijuana Quant, GCMS Urine 3082 ng/mL (<5); Nordiazepam, Confirm NEGATIVE ng/mL (<50); Oxazepam Ur, GC/MS 53 ng/mL (<50); Temazepam, Confirm NEGATIVE ng/mL (<50)
--- NOTE | 2024-01-02 16:26 | Hospitalist Progress Note ---
Date of Service January 02, 2024 Assessment & Plan (1) Alcohol intoxication: Plan: 33 yo M w/ PMH of ongoing alcoholism, alcoholic cirrhosis of liver without ascites, esophageal varices and cirrhosis, portal hypertensive gastropathy, compression fraction of L1 and T12 vertebrae, chronic midline thoracic pain, smoking, obsessive-compulsive disorder, medical marijuana use, generalized anxiety disorder comes because of ongoing alcoholism and coffee-ground emesis and also found to have elevated LFTs. Patient was in the hospital in first week of December 2023 with alcohol withdrawal syndrome and alcohol hepatitis. During that admission also he had coffee-ground emesis. Seen by GI. At that time no EGD was done as hemoglobin was stable and he already had EGD in October 2023. And patient left AMA. Patient comes back today for alcohol detox. He states he was drinking a liter of vodka daily and sometimes whiskey. 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 He had a history of alcohol withdrawal seizures about 3 years ago. After last admission, he was again drinking heavily. He is being managed for the following: Alcohol intoxication Risks of alcohol withdrawal History of alcohol use disorder Admitting alcohol level of 454, patient reports drinking vodka on 12/30 prior to arrival. Patient states that he drinks 1 L of vodka daily. Patient has history of leaving AMA in the past and going back to drinking heavily. Continue with Librium taper, THO S protocol, folic acid and multivitamin and thiamine. Continue telemetry monitoring. Alcohol cessation counseling done, patient states that he will stop drinking this time. Coffee-ground emesis: Admitting hemoglobin of 16, following day hemoglobin stable around 12-13. EGD in October 2023 showed erosions in the esophagus. Admitting CTAP suggestive of gastritis and duodenitis. Continue with Protonix drip. to po ppi from lidia am. Monitor H&H. GI evaluating, appreciate recommendation. Avoid NSAIDs. Alcoholic hepatitis: Admitting MELD score of 16, GI evaluated, appreciate recommendation. Supportive care. Possible pancreatitis: CT scan suggestive of pancreatitis. Mild elevation of lipase at presentation. Patient with no further nausea or vomiting or abdominal pain. Continue to monitor. Alcohol liver cirrhosis Portal hypertensive gastropathy Chronic thrombocytopenia: Secondary to cirrhosis Needs follow-up, follow-up with hepatology on discharge. ammonia level WNL. Platelet with significant drop to 26K, plateaued around this level, no s/s bleeding, repeat CBC in am. Ongoing tobacco abuse: Patient counseled. Chronic back pain secondary to compression fracture Mood disorder/OCD per records DVT prophylaxis: SCDs Disposition: Telemetry for now Full code Admission and Anticipated Discharge Date Admission Date: December 31, 2023 Subjective Patient was seen and examined at bedside. Patient was lying in bed, on room air, NAD, resting comfortably. Patient reports nausea getting better. Patient reports last vomiting was in the ED. No further vomiting. Patient denies belly pain. Patient states that he will quit drinking going forward. Pt appears irritated today on discussing the need for hospital stay until the withdrawal window given h/o withdrawal seizure and excessive amount of alcohol that he drinks. It wouldn't be surprising if he again decides to leave AMA. Physical Exam Physical Exam: Constitutional: Alert oriented x 3; not in distress. No tremors/hallucination Respiratory: normal respiratory effort, lungs clear to auscultation, no wheeze, rales, rhonchi. Normal insp/exp effort, no accessory muscle use Cardiovascular: RRR, no murmur, no edema Vessels: no JVD or carotid bruit Chest: normal inspection of chest Abdomen: Soft, nontender. Bowel sound present Musculoskeletal: no cyanosis or clubbing, extremities motor strength 5/5 Skin: no rashes, warm and dry normal turgor Neurologic: PERRL, EOMI, accommodation nl, no face palsy, no dysarthria CN's II- XI intact bilaterally and moves all extremities Psychiatric: A+Ox3, euthymic affect Results & Data Results & Data Vital Signs (Past 12 Hours) Vital Signs Temp Pulse Resp BP BP Pulse Ox O2 Del Method 01/02/24 10:52 37.1 C 97 H 16 138/84 97 Room Air 01/02/24 07:38 37.2 C 91 H 18 141/84 H 95 Room Air
[2024-01-03 03:36] VITALS: RESP 18
[2024-01-03 05:44] LABS: Hematocrit (blood only) 37.1 % (42.0-52.0); Mean Corpuscular Hemoglobin 33.3 pg (25.0-34.0); Mean Corpuscular Volume 95.1 fL (80.0-100.0); Platelet Count 32 K/uL (130-400); RDW Coefficient of Variation 17.2 % (11.5-14.5); RDW Standard Deviation 59.2 fL (36.4-46.3); White Blood Count 6.15 K/ul (4.8-10.8)
[2024-01-03 05:59] LABS: Albumin Globulin Ratio 1.3 (0.9-2); Albumin Level 3.8 gm/dl (3.4-5.0); BUN Creatinine Ratio 14.3 (10-20); Bilirubin,Total 6.8 mg/dl (0.2-1.0); Calcium 9.1 mg/dl (8.6-10.3); Creatinine Clr Calc Pharmacy 164.7 ml/min; Magnesium 1.4 mg/dl (1.7-2.4); Phosphorus 1.8 mg/dl (2.5-4.9); Potassium 3.5 mmol/L (3.5-5.1); Total Protein 6.8 gm/dl (6.0-8.3)
[2024-01-03] MEDS ORDERED: POTASSIUM PHOS 3 MMOL/1 ML INFUSION IV STA (09:12)
[2024-01-03] MEDS: chlordiazePOXIDE HCl 5 MG CAP PO SCH (09:17)
[2024-01-03] MEDS: MAGNESIUM SULFATE / D5W 1 GM/100 ML BAG IV SCH (09:28)
[2024-01-03] MEDS: POTASSIUM CHLORIDE CRTAB 20 MEQ TABCR PO STA (09:28)
[2024-01-03] MEDS: PANTOprazole 40 MG TAB PO SCH (09:56)
[2024-01-03] MEDS: POTASSIUM PHOSPHATE 21 MMOL in DEXTROSE 5% 500 ML IV ONE (09:56)
[2024-01-03 11:31] VITALS: O2SAT 96
[2024-01-03 15:08] VITALS: BP 118/72; PULSE 96; TEMP 98.1
--- NOTE | 2024-01-03 16:12 | Discharge Summary ---
Date of Service January 03, 2024 Admission HPI Per Admitting Provider 33-year-old male with past medical history significant for ongoing alcoholism, alcoholic cirrhosis of liver without ascites, esophageal varices and cirrhosis, portal hypertensive gastropathy, compression fraction of L1 and T12 vertebrae, chronic midline thoracic pain, smoking, obsessive-compulsive disorder, medical marijuana use, generalized anxiety disorder comes because of ongoing alcoholism and coffee-ground emesis and also found to have elevated LFTs. Patient was in the hospital in first week of December 2023 with alcohol withdrawal syndrome and alcohol hepatitis. During that admission also he had coffee-ground emesis. Seen by GI. At that time no EGD was done as hemoglobin was stable and he already had EGD in October 2023. And patient left AMA. Patient comes back today for alcohol detox. As per ER he was drinking a liter of vodka daily and sometimes whiskey. He had a history of alcohol withdrawal seizures about 3 years ago. After last admit again drinking heavily. Currently patient received Ativan and Phenergan and very drowsy. As per nursing staff he was speaking fine about 20 minutes ago. Currently very difficulty waking him up. Could not get get any history from the patient. His hemodynamics are okay. Hemoglobin is stable at 16. INR 1.6. Total bilirubin 3.4. AST 386. ALT 164. Alkaline phosphatase 105. Alcohol level 454. As per ER notes patient currently not taking any medications. Past medical history. As mentioned above. Past surgical history.: Colonoscopy. Tonsillectomy/adenectomy. Social history. Smokes 0.5 packs daily for 20 years. Heavy alcohol use. Smokes marijuana. Has medical card Family history. Brother has alcoholism. Brother has drug abuse. Brother has asthma. Admission Exam Per Admitting Provider General- Very drowsy. Head- atraumatic Eyes- PERRL. ENT- oropharynx clear. opens mouth on asking Neck- supple, no JVD. Lungs- clear to auscultation , no wheezing or crackles Heart- regular rhythm; no murmur, no gallop,. Abdomen- normal bowel sounds, soft, nontender, no distension. Extremities- no pretibial edema, no erythema seen Neuro- Very Drowsy; PERRL, no facial palsy; opens eyes on calling. Principal Diagnosis Alcohol intoxication Alcohol withdrawal Discharge Exam Constitutional: Alert oriented x 3; not in distress. No tremors/hallucination Respiratory: normal respiratory effort, lungs clear to auscultation, no wheeze, rales, rhonchi. Normal insp/exp effort, no accessory muscle use Cardiovascular: RRR, no murmur, no edema Vessels: no JVD or carotid bruit Chest: normal inspection of chest Abdomen: Soft, nontender. Bowel sound present Musculoskeletal: no cyanosis or clubbing, extremities motor strength 5/5 Skin: no rashes, warm and dry normal turgor Neurologic: PERRL, EOMI, accommodation nl, no face palsy, no dysarthria CN's II- XI intact bilaterally and moves all extremities Psychiatric: A+Ox3, euthymic affect Discharge Data Allergies Allergy/AdvReac Type Severity Reaction Status Date / Time No Known Allergies Allergy Verified 12/03/23 21:31 Consultations 12/30/23 21:53 ED Decision to Admit Stat 12/31/23 08:00 Consult Gastroenterology Routine Ordered Studies 12/30/23 20:04 CT abd pelvis IV con only Stat Hospital Course (1) Alcohol intoxication: 33 yo M w/ PMH of ongoing alcoholism, alcoholic cirrhosis of liver without ascites, esophageal varices and cirrhosis, portal hypertensive gastropathy, compression fraction of L1 and T12 vertebrae, chronic midline thoracic pain, smoking, obsessive-compulsive disorder, medical marijuana use, generalized anxiety disorder comes because of ongoing alcoholism and coffee-ground emesis and also found to have elevated LFTs. Patient was in the hospital in first week of December 2023 with alcohol withd hieu syndrome and alcohol hepatitis. During that admission also he had coffee- ground emesis. Seen by GI. At that time no EGD was done as hemoglobin was stable and he already had EGD in October 2023. And patient left AMA. Patient comes back today for alcohol detox. He states he was drinking a liter of vodka daily and sometimes whiskey. Last drink was 12/30 [employer]ELOP[employer]MI[employer] per pt. He had a history of alcohol withdrawal seizures about 3 years ago. After last admission, he was again drinking heavily. He was being managed for the following: Alcohol intoxication Risks of alcohol withdrawal History of alcohol use disorder Admitting alcohol level of 454, patient reports drinking vodka on 12/30 prior to arrival. Patient states that he drinks 1 L of vodka daily. Patient has history of leaving AMA in the past and going back to drinking heavily. Continue with Librium taper, THO S protocol, folic acid and multivitamin and thiamine. Continue telemetry monitoring. Alcohol cessation counseling done, patient states that he will stop drinking this time. Coffee-ground emesis: Admitting hemoglobin of 16, following day hemoglobin stable around 12-13. EGD in October 2023 showed erosions in the esophagus. Admitting CTAP suggestive of gastritis and duodenitis. Protonix drip to po ppi from lidia am. Monitor H&H. GI evaled, appreciate recommendation. Avoid NSAIDs. Alcoholic hepatitis: Admitting MELD score of 16, GI evaluated, appreciate recommendation. Supportive care. Possible pancreatitis: CT scan suggestive of pancreatitis. Mild elevation of lipase at presentation. Patient with no further nausea or vomiting or abdominal pain. Continue to monitor. Alcohol liver cirrhosis Portal hypertensive gastropathy Chronic thrombocytopenia: Secondary to cirrhosis Needs follow-up, follow-up with hepatology on discharge. ammonia level WNL. Platelet with significant drop to 26K, slightly improved this am, no s/s bleeding, repeat CBC in am. Ongoing tobacco abuse: Patient counseled. Chronic back pain secondary to compression fracture Mood disorder/OCD per records DVT prophylaxis: SCDs Disposition: Telemetry for now Full code Today patient decided to leave the hospital AGAINST MEDICAL ADVICE. Patient was made aware that he is at high risks of going into withdrawal, his heart rates are slightly up likely secondary to impending withdrawal, he has very high risks of severe withdrawal including seizures/electrolyte abnormalities/cardiac arrhythmia/possibility of . He understands. He has h/o withdrawal seizures. He denies suicidal ideation/homicidal ideation. He is oriented. He does not want to stay in the hospital. He is leaving AMA. Patient has been advised to come back to the hospital if he is not feeling well/increasing palpitations/sweating/feeling very weak/seizure activity/chest pain. He voiced understanding again. Patient did seem he will go back to drinking again, though he is stating otherwise. I offered if he wants me to update his boyfriend, he d eclined, he stated he will update himself. [facility] Attestation I certify that this patient is under my care and that I, or a physicians libia auguste working with me, had a face to-face encounter that meets the [id number] encounter requirements with this patient. The encounter with the patient was in whole, or in part, for the following medical condition, which is the primary reason for home health care (list medical condition): I certify that, based on my findings, the following services are medically necessary home health services: My clinical findings support the need for the above services because: Further, I certify that my clinical findings support that this patient is homebound (i.e. absences from home require considerable and taxing effort and are for medical reasons or [employer] services or infrequently or of short duration when for other reasons) because: Certification for Home Health Services: Based on the above findings, I certify that this patient is confined to the home and needs intermittent alf care, physical therapy and/or speech therapy or continues to need occupational therapy. The patient is under my care, and I have initiated the establishment of the plan of care. This patient will be followed by a physician who will periodically review the plan of care. Total Time Total Time Spent Total Time Spent (In Minutes): 45 Discharge Plan Discharge Items Patient Disposition: Against Medical Advice Reason For Visit: ALCOHOLISM, ELEVATED LFTS, COFFE GROUNG EMESIS Follow-up/Referrals: Tami Upton MD [Primary Care Provider] - (Date & Time 01/08/2024 11:00 AM Provider Tami Upton MD Department [facility] ) Stand-Alone Forms: [facility], Smoking Cessation Medications and DC Order Prescriptions: No Action celecoxib 200 mg capsule 200 mg PO QAM gabapentin 300 mg capsule 600 mg PO QPM Hold Instructions: Until complete with librium gabapentin 300 mg capsule 300 mg PO QAM Hold Instructions: Until complete with librium nadolol 40 mg tablet 40 mg PO QAM folic acid 1 mg tablet 1 mg PO QAM furosemide 20 mg tablet 20 mg PO DAILY PRN (Reason: .leg swelling) paliperidone 9 mg tablet extended release 24 hr 9 mg PO QAM multivitamin Tablet 1 tab PO DAILY vitamin B complex Tablet 1 tab PO DAILY melatonin 10 mg Tablet 20 mg PO HS magnesium chloride 64 mg magnesium tablet 64 mg PO BID Qty: 60 0RF pantoprazole 40 mg Tablet,Delayed Release (Dr/Ec) 40 mg PO BID Qty: 60 0RF vitamin B complex Tablet 1 tab PO DAILY Discharge Orders: Left Against Medical Advice (Routine); Ordered 01/03/24 Ordered By: Courtney Cho Admission Data Admit Date/Time: 12/31/23 01:23 Attending Provider: Courtney Cho Admit Provider: Estuardo Reese Primary Care Provider: Tami Upton Other Providers: Estuardo Reese; Eren Bowling
== END 2024-01-03 13:55 | disposition left against medical advice (07) | DRG 894 ==
LOC: ED 18:43 → INTOOBSV 12-31 01:23 → 2S 12-31 01:23 → SUATTDRO 12-31 01:23 → 2S 12-31 03:09

== ENCOUNTER 2024-02-07 11:13 | Inpatient (IN) ==
[2024-02-07 12:26] LABS: Basophils # (auto) 0.07 K/uL (0.00-0.20); Eosinophils % (auto) 1.4 %; Hematocrit (blood only) 40.7 % (42.0-52.0); Immature Granulocytes # (auto) 0.01 K/uL (0.01-0.20); Immature Granulocytes % (auto) 0.1 %; Lymphocytes # (auto) 3.29 K/uL (1.20-3.40); Lymphocytes % (auto) 45.9 %; Mean Corpuscular Hemoglobin 32.1 pg (25.0-34.0); Mean Corpuscular Hgb Conc 34.4 g/dL (32.0-36.0); Mean Corpuscular Volume 93.3 fL (80.0-100.0); Mean Platelet Volume 10.7 fL (9.4-12.4); Monocytes # (auto) 0.47 K/uL (0.11-0.59); Monocytes % (auto) 6.6 %; Neutrophils # (auto) 3.22 K/uL (1.40-6.50); Platelet Count 58 K/uL (130-400); RDW Coefficient of Variation 16.7 % (11.5-14.5); RDW Standard Deviation 56.6 fL (36.4-46.3); Red Blood Count 4.36 M/uL (4.70-6.10); White Blood Count 7.16 K/ul (4.8-10.8)
[2024-02-07 12:40] LABS: Acetaminophen < 3 ug/ml (10-30); Salicylate < 3.0 mg/dl (3.0-30)
[2024-02-07 12:43] LABS: Albumin Globulin Ratio 1.1 (0.9-2); Albumin Level 4.2 gm/dl (3.4-5.0); BUN Creatinine Ratio 17.8 (10-20); Bilirubin,Total 3.6 mg/dl (0.2-1.0); Calcium 8.8 mg/dl (8.6-10.3); Creatinine Clr Calc Pharmacy 214.5 ml/min; Globulin 3.7 gm/dl (2.5-4.0); Magnesium 1.9 mg/dl (1.7-2.4); Potassium 3.5 mmol/L (3.5-5.1); Total Protein 7.9 gm/dl (6.0-8.3)
[2024-02-07 12:47] LABS: Troponin I High Sensitivity 14.9 pg/ml (0-20)
[2024-02-07 13:06] LABS: INR 1.4 (0.9-1.1); Prothrombin Time 15.2 Seconds (9.0-12.0)
[2024-02-07] MEDS: SODIUM CHLORIDE 0.9% 1,000 ML IV ONE ×2 (13:43→15:36)
[2024-02-07] MEDS: ONDANSETRON INJ 2 MG/ML 2 ML VIAL IV STA (13:45)
[2024-02-07] MEDS: PANTOprazole 40 MG/10 ML SYR IV ONE (13:52)
[2024-02-07] MEDS: diazePAM 5 MG/ML 10ML VIAL IV STA ×2 (13:55→15:37)
[2024-02-07 14:36] LABS: Adenovirus PCR Not Detected (NotDetected); Bordetella parapertussis PCR Not Detected (NotDetected); Bordetella pertussis PCR Not Detected (NotDetected); Chlamydia pneumoniae PCR Not Detected (NotDetected); Coronavirus 229E PCR Not Detected (NotDetected); Coronavirus CoV-2 (COVID19)PCR Not Detected (NotDetected); Coronavirus HKU1 PCR Not Detected (NotDetected); Coronavirus NL63 PCR Not Detected (NotDetected); Coronavirus OC43PCR Not Detected (NotDetected); Human Metapneumovirus PCR Not Detected (NotDetected); Influenza A PCR Not Detected (NotDetected); Influenza B PCR Not Detected (NotDetected); Mycoplasma pneumoniae PCR Not Detected (NotDetected); Parainfluenza Virus 1 PCR Not Detected (NotDetected); Parainfluenza Virus 2 PCR Not Detected (NotDetected); Parainfluenza Virus 3 PCR Not Detected (NotDetected); Parainfluenza Virus 4 PCR Not Detected (NotDetected); Respiratory Syncytial VirusPCR Not Detected (NotDetected); Rhinovirus/Enterovirus PCR Not Detected (NotDetected)
--- NOTE | 2024-02-07 14:37 | Emergency Department Note ---
Impression & Plan Alcohol withdrawal, Acute alcohol abuse, Alcohol intoxication ED Provider Note ED Provider Note NAME: ADONIS PENNY AGE:33 SEX: Male : 1990 ARRIVES VIA: Private vehicle INFORMANT: Patient ED PROVIDER(s): Liss Marshall DO CHIEF COMPLAINT: Concern for alcohol withdrawal HPI: This is a 33-year-old male with a history of alcohol abuse who presents due to concern for acute alcohol withdrawal. Patient states he has been here previously with similar symptoms. He states he did have 1 seizure during 1 episode, does not ever recall being told he had delirium tremens or needing the intensive care unit. He states he drinks 1 L of vodka daily. He states his last drink was 6 AM. Patient states he does feel fatigued, slightly nauseous, and slightly dizzy which are indications for him of alcohol withdrawal. He states he does not feel overtly shaky yet. He states no recent black or bloody stools, no vomiting. He does have a prior history of varices and GI bleed. He states he will typically remain sober for 3 to 4 weeks and then drink heavily for a week again and presented here for alcohol withdrawal as he desires to quit again. He denies any additional coingestions. He denies any recent trauma or injury. He denies fevers, chills, recent URI symptoms. PAST MEDICAL HISTORY:See Below PAST SURGICAL HISTORY:See Below FAMILY HISTORY:See Below SOCIAL HISTORY:See Below HOME MEDICATIONS:See Below ALLERGIES:See Below VITALS:See Below PHYSICAL EXAMINATION: GENERAL: alert, unwell appearing, well nourished, mild distress, non-toxic EYE EXAM: normal conjunctiva, PERRL and EOM's grossly intact OROPHARYNX: no exudate, no erythema, lips, buccal mucosa, and tongue normal and mucous membranes are dry NECK: supple, no nuchal rigidity, no adenopathy, non-tender LUNGS: Clear to auscultation. Normal chest wall mechanics, no w/r/r HEART: no murmurs, S1 normal and S2 normal ABDOMEN: abdomen soft, non-tender, normo-active bowel sounds, no masses, no rebound or guarding. BACK: Back is symmetrical on inspection and there is no deformity, no midline tenderness, no CVA tenderness. SKIN: no rashes, petechiae, orbruising UPPER EXTREMITIES: upper extremities are grossly normal. FROM, nml pulses b/l. LOWER EXTREMITIES: No pitting edema. FROM, nml pulses b/l. NEURO EXAM: Normal sensorium, cranial nerves II-XII grossly intact, normal speech, no facial droop,nogross weakness of arms, no gross weakness of legs. Gross sensation intact. No ataxia. No overt tremors. Vital Signs: reviewed and remarkable Differential Diagnosis: alcohol intoxication, substance abuse, hypoglycemia, electrolyte abnormalities, dysrhythmia, dehydration, CHI, ICH, as well as others were entertained. MEDICAL DECISION MAKING: This is a 33-year-old male presents emergency department due to concern for evolving alcohol withdrawal. Patient with known history of alcohol abuse and last drink at 6 AM. He was noted to be tachycardic and mildly hypertensive on arrival. Labs drawn and sent, IV established, EKG performed at bedside interpreted me and patient monitored on telemetry. Patient started on IV fluids and given IV Protonix and IV Valium. Patient's alcohol noted to be 305 despite being clinically sober. Patient given IV Zofran additionally for nausea. A second liter was added as well as IV thiamine. Given QTc prolongation on EKG patient given IV magnesium. Patient noted to have elevated LFTs however not as significant elevated compared to prior episodes. He had no accompanying abdominal pain and no vomiting in the department. Patient stated his nausea was improved however he still felt unwell and as though he had evolving withdrawal. A second dose of IV Valium was given. Due to concern for significant alcohol withdrawal especially given clinical sobriety at a level of 305 and prior history of withdrawal including seizures, case discussed with the hospitalist team for additional evaluation and management. Consultation(s): 1513: Discussed with Dr. Hadley, [facility] hospitalist, for additional evaluation and mgmt. ER Treatment Provided: See below Diagnostics Interpreted By Me: -ECG: Sinus tachycardia 104, normal axis, prolonged QTc, nonspecific ST/T wave changes -Cardiac Monitoring: An order was placed for continuous cardiac monitoring. The monitor shows a rate of 112 with sinus tachycardia rhythm. -Laboratory studies: As stated above and show below. Triage Nursing Note Reviewed Prior/Outside Records Reviewed Critical Care: Critical care of 36 min performed to assess and manage high likelihood of life-threatening alcohol withdrawal, involving labs and imaging performed with assessment to evaluate alcohol withdrawal diagnosis with frequent reassessment. This time includes bedside time, treatment discussions with patient/family/consultants, documentation time and excludes procedure time. Past Med/Surg History Problem List (Updated 02/07/24 @ 15:50 by Osman Hadley DO) Alcoholic cirrhosis Alcohol withdrawal (Acute) Cirrhosis Coffee ground emesis (Acute) Alcohol abuse (Acute) Alcohol withdrawal syndrome (Acute) Alcohol use disorder, severe, dependence (Acute) Alcohol intoxication (Acute) GIB (gastrointestinal bleeding) (Acute) Alcoholic hepatitis Acute alcohol abuse (Acute) Pancytopenia (Acute) Medical History HTN (hypertension) Thrombocytopenia OCD (obsessive compulsive disorder) Insomnia Bipolar 1 disorder Tobacco abuse Alcohol dependence Compression fracture of T12 vertebra Compression fracture of L1 lumbar vertebra Hepatosplenomegaly Mixed hyperlipidemia Alcohol abuse Surgical History Hx of tonsillectomy Hx of colonoscopy 2015, WNL, internal hemorrhoids Social History Smoking Status: Current every day smoker Tobacco Type: Cigarettes Cigarettes Per Day: 10; Do You Dip or Chew Tobacco: No; Hx Alcohol Use: Yes Alcohol type: hard liquor Hx Substance Use: Yes Last Used Substance: Unknown Substance Use Type Other:: medical marijuana Preferred Language: Palestinian Communication Ability: Effective Project Control Officer Required: No Beliefs That Will Affect Care: None Current Living Situation: Significant Other Feels Safe at Home: Yes Assistive Devices: None Allergies Allergies Allergy/AdvReac Type Severity Reaction Status Date / Time No Known Allergies Allergy Verified 12/03/23 21:31 Home Meds Home Medications Medication Instructions Recorded Confirmed celecoxib 200 mg capsule 200 mg PO QAM 10/14/23 02/07/24 folic acid 1 mg tablet 1 mg PO QAM 10/14/23 02/07/24 furosemide 20 mg tablet 20 mg PO DAILY PRN .leg swelling 10/14/23 02/07/24 melatonin 10 mg tablet 20 mg PO HS 10/14/23 02/07/24 multivitamin 1 tab PO DAILY 10/14/23 02/07/24 nadolol 40 mg tablet 40 mg PO QAM 10/14/23 02/07/24 paliperidone 9 mg tablet,extended 9 mg PO QAM 10/14/23 02/07/24 release 24 hr vitamin B complex 1 tab PO DAILY 10/14/23 02/07/24 gabapentin 300 mg capsule 300 mg PO UD 02/07/24 02/07/24 magnesium chloride 64 mg 64 mg PO UD 02/07/24 02/07/24 (magnesium chloride) tablet Results & Data (ED) Vital Signs Vital Signs - 24 hr 02/07/24 11:34 02/07/24 12:07 02/07/24 12:14 Temperature 36.6 C Temperature Source Oral Pulse Rate 123 H 101 H 100 H Pulse Rate [Finger] Pulse Rate from SpO2 Sensor Pulse Rhythm Regular Pulse Rhythm [Finger] Respiratory Rate 22 Respiratory Effort / Characteristics Non-Labored Spontaneous Respiratory Depth Normal Respiratory Pattern Regular Blood Pressure 153/89 H Blood Pressure [Left Arm] Blood Pressure Mean 110 Blood Pressure Mean [Left Arm] Blood Pressure Position [Left Arm] Pulse Oximetry 97 97 Oxygen Delivery Method Room Air Room Air Sepsis Recent Fever Within 48 Hours No Sepsis New/Unexplained Change in Mental Status No Sepsis Action Taken by Nursing No Action Required 02/07/24 12:29 02/07/24 12:31 02/07/24 12:38 Temperature Temperature Source Pulse Rate 88 109 H Pulse Rate [Finger] Pulse Rate from SpO2 Sensor 88 110 H Pulse Rhythm Pulse Rhythm [Finger] Respiratory Rate 22 16 Respiratory Effort / Characteristics Respiratory Depth Respiratory Pattern Blood Pressure 133/97 Blood Pressure [Left Arm] Blood Pressure Mean 110 Blood Pressure Mean [Left Arm] Blood Pressure Position [Left Arm] Pulse Oximetry 93 97 Oxygen Delivery Method Sepsis Recent Fever Within 48 Hours Sepsis New/Unexplained Change in Mental Status Sepsis Action Taken by Nursing 02/07/24 12:59 02/07/24 13:00 02/07/24 13:02 Temperature Temperature Source Pulse Rate 102 H 96 H Pulse Rate [Finger] Pulse Rate from SpO2 Sensor 100 H 97 H Pulse Rhythm Pulse Rhythm [Finger] Respiratory Rate 20 20 Respiratory Effort / Characteristics Respiratory Depth Respiratory Pattern Blood Pressure 143/81 H Blood Pressure [Left Arm] Blood Pressure Mean 94 Blood Pressure Mean [Left Arm] Blood Pressure Position [Left Arm] Pulse Oximetry 94 95 Oxygen Delivery Method Sepsis Recent Fever Within 48 Hours Sepsis New/Unexplained Change in Mental Status Sepsis Action Taken by Nursing 02/07/24 13:29 02/07/24 13:30 02/07/24 13:32 Temperature Temperature Source Pulse Rate 98 H 102 H Pulse Rate [Finger] Pulse Rate from SpO2 Sensor 99 H 101 H Pulse Rhythm Pulse Rhythm [Finger] Respiratory Rate 18 21 Respiratory Effort / Characteristics Respiratory Depth Respiratory Pattern Blood Pressure 150/83 H Blood Pressure [Left Arm] Blood Pressure Mean 95 Blood Pressure Mean [Left Arm] Blood Pressure Position [Left Arm] Pulse Oximetry 94 92 Oxygen Delivery Method Sepsis Recent Fever Within 48 Hours Sepsis New/Unexplained Change in Mental Status Sepsis Action Taken by Nursing 02/07/24 13:54 02/07/24 14:00 02/07/24 14:00 Temperature Temperature Source Pulse Rate 99 H Pulse Rate [Finger] Pulse Rate from SpO2 Sensor 99 H Pulse Rhythm Pulse Rhythm [Finger] Respiratory Rate 20 Respiratory Effort / Characteristics Respiratory Depth Respiratory Pattern Blood Pressure 116/58 L 116/58 L Blood Pressure [Left Arm] Blood Pressure Mean 71 71 Blood Pressure Mean [Left Arm] Blood Pressure Position [Left Arm] Pulse Oximetry 95 Oxygen Delivery Method Sepsis Recent Fever Within 48 Hours Sepsis New/Unexplained Change in Mental Status Sepsis Action Taken by Nursing 02/07/24 14:03 02/07/24 14:24 02/07/24 14:31 Temperature Temperature Source Pulse Rate 99 H 111 H Pulse Rate [Finger] Pulse Rate from SpO2 Sensor 100 H 108 H Pulse Rhythm Pulse Rhythm [Finger] Respiratory Rate 16 19 Respiratory Effort / Characteristics Respiratory Depth Respiratory Pattern Blood Pressure 152/92 H Blood Pressure [Left Arm] Blood Pressure Mean 110 Blood Pressure Mean [Left Arm] Blood Pressure Position [Left Arm] Pulse Oximetry 95 94 Oxygen Delivery Method Sepsis Recent Fever Within 48 Hours Sepsis New/Unexplained Change in Mental Status Sepsis Action Taken by Nursing 02/07/24 14:33 02/07/24 15:34 02/07/24 16:16 Temperature Temperature Source Pulse Rate 107 H 93 H Pulse Rate [Finger] 97 H Pulse Rate from SpO2 Sensor 105 H Pulse Rhythm Pulse Rhythm [Finger] Regular Respiratory Rate 20 18 Respiratory Effort / Characteristics Non-Labored Spontaneous Respiratory Depth Normal Respiratory Pattern Blood Pressure Blood Pressure [Left Arm] 141/80 H Blood Pressure Mean Blood Pressure Mean [Left Arm] 100 Blood Pressure Position [Left Arm] Lying Pulse Oximetry 94 95 Oxygen Delivery Method Room Air Sepsis Recent Fever Within 48 Hours Sepsis New/Unexplained Change in Mental Status Sepsis Action Taken by Nursing Laboratory Data 02/07/24 11:50 02/07/24 11:50 Lab Results 02/07/24 02/07/24 02/07/24 Range/Units 11:50 12:00 12:22 WBC 7.16 (4.8-10.8) K/ul RBC 4.36 L (4.70-6.10) M/uL Hgb 14.0 (14.0-18.0) g/dl Hct 40.7 L (42.0-52.0) % MCV 93.3 (80.0-100.0) fL MCH 32.1 (25.0-34.0) pg MCHC 34.4 (32.0-36.0) g/dL RDW Std Deviation 56.6 H (36.4-46.3) fL RDW Coeff of Joe 16.7 H (11.5-14.5) % Plt Count 58 L (130-400) K/uL MPV 10.7 (9.4-12.4) fL Immature Gran % (Auto) 0.1 % Neut % (Auto) 45.0 % Lymph % (Auto) 45.9 % [place] % (Auto) 6.6 % Eos % (Auto) 1.4 % Baso % (Auto) 1.0 % Neut # (Auto) 3.22 (1.40-6.50) K/uL Lymph # (Auto) 3.29 (1.20-3.40) K/uL [place] # (Auto) 0.47 (0.11-0.59) K/uL Eos # (Auto) 0.10 (0.00-0.50) K/uL Baso # (Auto) 0.07 (0.00-0.20) K/uL Immature Gran # (Auto) 0.01 (0.01-0.20) K/uL PT 15.2 H (9.0-12.0) Seconds INR 1.4 H (0.9-1.1) Sodium 142 (136-145) mmol/L Potassium 3.5 (3.5-5.1) mmol/L Chloride 102 (98-107) mmol/L Carbon Dioxide 26 (21-32) mmol/L Anion Gap 14 H (3-11) BUN 8 (6-23) mg/dl Creatinine 0.45 L (0.6-1.4) mg/dl Est Cr Clr Drug Dosing 214.5 ml/min eGFR 140.82 BUN/Creatinine Ratio 17.8 (10-20) Glucose 100 H (70-99(Fasting)) mg/dl Calcium 8.8 (8.6-10.3) mg/dl Magnesium 1.9 (1.7-2.4) mg/dl Total Bilirubin 3.6 H (0.2-1.0) mg/dl AST 329 H (13-39) U/L ALT 131 H (7-52) U/L Alkaline Phosphatase 109 H (34-104) U/L Troponin I High Sens 14.9 (0-20) pg/ml Total Protein 7.9 (6.0-8.3) gm/dl Albumin 4.2 (3.4-5.0) gm/dl Globulin 3.7 (2.5-4.0) gm/dl Albumin/Globulin Ratio 1.1 (0.9-2) Lipase 207 H (11-82) U/L Salicylates < 3.0 L (3.0-30) mg/dl Acetaminophen < 3 L (10-30) ug/ml Ethyl Alcohol mg/dL 305.1 H (<10.0) mg/dl Adenovirus (PCR) Not Detected (NotDetected) B. pertussis DNA (PCR) Not Detected (NotDetected) B.parapertussis DNA PCR Not Detected (NotDetected) C. pneumoniae DNA (PCR) Not Detected (NotDetected) Coronavirus OC43 (PCR) Not Detected (NotDetected) Coronavirus HKU1 (PCR) Not Detected (NotDetected) Coronavirus 229E (PCR) Not Detected (NotDetected) SARS-CoV-2 (PCR) Not Detected (NotDetected) Coronavirus NL63 (PCR) Not Detected (NotDetected) Human Metapneumovir PCR Not Detected (NotDetected) Influenza Type A (PCR) Not Detected (NotDetected) Influenza Type B (PCR) Not Detected (NotDetected) M. pneumoniae (PCR) Not Detected (NotDetected) Parainfluenza 1 (PCR) Not Detected (NotDetected) Parainfluenza 2 (PCR) Not Detected (NotDetected) Parainfluenza 3 (PCR) Not Detected (NotDetected) Parainfluenza 4 (PCR) Not Detected (NotDetected) RSV (PCR) Not Detected (NotDetected) Entero/Rhino (PCR) Not Detected (NotDetected) Administered Medications Discontinued Medications Diazepam (Diazepam 5 Mg/Ml 10ml Vial) 5 mg IV NOW STA Stop: 02/07/24 12:48 Last Admin: 02/07/24 13:55 Dose: 5 mg Documented By: HALLIE Diazepam (Diazepam 5 Mg/Ml 10ml Vial) 10 mg IV NOW STA Stop: 02/07/24 14:48 Last Admin: 02/07/24 15:37 Dose: 10 mg Documented By: ADELE Sodium Chloride (Nss) 1,000 mls @ 999 mls/hr IV .Q1H1M ONE Stop: 02/07/24 13:46 Last Infusion: 02/07/24 14:00 Dose: Infused Documented By: Admin: 02/07/24 13:43 Dose: 999 mls/hr Documented By: HALLIE Pantoprazole Sodium (Protonix) 40 mg in 10 mls @ 5 mls/min IV NOW ONE Stop: 02/07/24 12:47 Last Admin: 02/07/24 13:52 Dose: 5 mls/min Documented By: HALLIE Sodium Chloride (Nss) 1,000 mls @ 999 mls/hr IV .Q1H1M ONE Stop: 02/07/24 15:24 Last Admin: 02/07/24 15:36 Dose: 999 mls/hr Documented By: ADELE Thiamine HCl 100 mg/ Syringe 10 mls @ 2 mls/min IV NOW STA Stop: 02/07/24 14:28 Last Admin: 02/07/24 15:56 Dose: 2 mls/min Documented By: PANCHO Magnesium Sulfate/Dextrose (Magnesium Sulfate / D5w) 1 gm in 100 mls @ 100 mls/hr IV NOW STA Stop: 02/07/24 16:13 Last Admin: 02/07/24 15:36 Dose: 100 mls/hr Documented By: ADELE Ondansetron HCl (Ondansetron Inj 2 Mg/Ml 2 Ml Vial) 4 mg IV NOW STA Stop: 02/07/24 12:48 Last Admin: 02/07/24 13:45 Dose: 4 mg Documented By: HALLIE Discharge Plan Visit Data Chief Complaint: Vomiting Stated Complaint: VOMITING, LOW PLATELETS, CONCERNED INTERNAL BLEED ED Provider: Liss Marshall Problem: Alcohol withdrawal, Acute alcohol abuse, Alcohol intoxication Forms Stand Alone Forms: [facility] Prescriptions Prescriptions: No Action celecoxib 200 mg capsule 200 mg PO QAM nadolol 40 mg tablet 40 mg PO QAM folic acid 1 mg tablet 1 mg PO QAM furosemide 20 mg tablet 20 mg PO DAILY PRN (Reason: .leg swelling) paliperidone 9 mg tablet extended release 24 hr 9 mg PO QAM multivitamin Tablet 1 tab PO DAILY vitamin B complex Tablet 1 tab PO DAILY melatonin 10 mg Tablet 20 mg PO HS magnesium chloride 64 mg magnesium tablet 64 mg PO UD Rx Instructions: 64 mg BID. hasn't taking in awhile gabapentin 300 mg capsule 300 mg PO UD Rx Instructions: per pt he takes 600 mg po qam and 900 mg po hs Referrals Referrals: Tami Upton MD [Primary Care Provider] -
--- NOTE | 2024-02-07 15:09 | Electrocardiogram Report ---
Test Reason : Blood Pressure : */* mmHG Vent. Rate : 104 BPM Atrial Rate : 104 BPM P-R Int : 156 ms QRS Dur : 92 ms QT Int : 396 ms P-R-T Axes : 58 66 28 degrees QTcB Int : 520 ms Sinus tachycardia Prolonged QT Abnormal ECG When compared with ECG of 30-Dec-2023 19:08, No significant change was found Confirmed by George Mendez ([id number]) on 02/07/2024 3:08:54 PM Referred By: REFERRED SELF Confirmed By: George Mendez
[2024-02-07] MEDS: MAGNESIUM SULFATE / D5W 1 GM/100 ML BAG IV STA (15:36)
--- NOTE | 2024-02-07 15:52 | History & Physical Report ---
Date of Service February 07, 2024 Assessment & Plan (1) Alcohol withdrawal syndrome: (2) Alcohol use disorder, severe, dependence: (3) Alcohol intoxication: (4) Thrombocytopenia: (5) OCD (obsessive compulsive disorder): (6) Bipolar 1 disorder: (7) Alcoholic cirrhosis: Plan Patient is a severe dependence of alcohol extremely high risk for severe complications of alcohol withdrawal. High risk for managing this as an outpatient. Admit to a monitored setting Monitor electrolytes And gabapentin taper to manage withdrawal symptoms As needed lorazepam based on his CIWA scoring Therapies to evaluate his overall functioning as he continues to attempt to recover from his dependence of alcohol and withdrawal Case management for possible inpatient rehab care if the patient so chooses Continue outpatient medications as ordered. History of Present Illness Chief Complaint: Alcohol intoxication starting to withdrawal Primary Care Provider: Tami Upton MD Patient is a 33-year-old gentleman with severe addiction to alcohol. has been presenting in the first week of the month with alcohol intoxication and starting with withdrawal symptoms. This is at least the third month in a row. Patient has known alcohol cirrhosis, portal hypertension gastropathy, chronic thrombocytopenia and abnormal coagulopathy due to his alcohol use. He in the emergency room was noted to have alcohol level greater than 300 and was referred to our service for further evaluation and treatment due to his high risk of severe withdrawal. Patient does have a remote history of alcohol withdrawal seizures. Patient states that from his last discharge he was good for a couple days and went on a "2-week childress" where he is drinking at least 1 L of vodka per day. He essentially comes to the emergency room and can no longer get alcohol and he runs out of money. He states he does try and give any money next to his boyfriend so he will not buy alcohol but his addiction is such that he is able to find alcohol 1 way or the other. He says his last drink was 6 AM this morning. He states that he has never been on any medication to curb his addiction such as ReVia. Never considered or went through an inpatient alcohol rehab program. He denies any fever or chills, no cough or cold symptoms, no hematemesis. No blood in his stool or dark tarry stool. No significant abdominal pain. No chest pains or shortness of breath. Does admit to last time signing out AGAINST MEDICAL ADVICE. Stating this time he will pursue our recommendations and follow recommendations. He states his body really does not know how to function without being intoxicated. Allergies Allergy/AdvReac Type Severity Reaction Status Date / Time No Known Allergies Allergy Verified 12/03/23 21:31 Home Medications Medication Instructions Recorded Confirmed Type celecoxib 200 mg capsule 200 mg PO QAM 10/14/23 02/07/24 History folic acid 1 mg tablet 1 mg PO QAM 10/14/23 02/07/24 History furosemide 20 mg tablet 20 mg PO DAILY PRN .leg swelling 10/14/23 02/07/24 History melatonin 10 mg tablet 20 mg PO HS 10/14/23 02/07/24 History multivitamin 1 tab PO DAILY 10/14/23 02/07/24 History nadolol 40 mg tablet 40 mg PO QAM 10/14/23 02/07/24 History paliperidone 9 mg tablet,extended 9 mg PO QAM 10/14/23 02/07/24 History release 24 hr vitamin B complex 1 tab PO DAILY 10/14/23 02/07/24 History gabapentin 300 mg capsule 300 mg PO UD 02/07/24 02/07/24 History magnesium chloride 64 mg 64 mg PO UD 02/07/24 02/07/24 History (magnesium chloride) tablet Past Med/Surg History Problem List (Updated 02/07/24 @ 15:50 by Osman Hadley DO) Alcoholic cirrhosis Alcohol withdrawal (Acute) Cirrhosis Coffee ground emesis (Acute) Alcohol abuse (Acute) Alcohol withdrawal syndrome (Acute) Alcohol use disorder, severe, dependence (Acute) Alcohol intoxication (Acute) GIB (gastrointestinal bleeding) (Acute) Alcoholic hepatitis Acute alcohol abuse (Acute) Pancytopenia (Acute) Medical History HTN (hypertension) Thrombocytopenia OCD (obsessive compulsive disorder) Insomnia Bipolar 1 disorder Tobacco abuse Alcohol dependence Compression fracture of T12 vertebra Compression fracture of L1 lumbar vertebra Hepatosplenomegaly Mixed hyperlipidemia Alcohol abuse Surgical History Hx of tonsillectomy Hx of colonoscopy 2015, WNL, internal hemorrhoids Social History Smoking Status: Current every day smoker Tobacco Type: Cigarettes Cigarettes Per Day: 10; Do You Dip or Chew Tobacco: No; Hx Alcohol Use: Yes Alcohol type: hard liquor Hx Substance Use: Yes Last Used Substance: Unknown Substance Use Type Other:: medical marijuana Preferred Language: Nigerian Communication Ability: Effective Metal Pourer Required: No Beliefs That Will Affect Care: None Current Living Situation: Significant Other Feels Safe at Home: Yes Assistive Devices: None Review of Systems Review of Systems: Pertinent positive and negative review of systems as mentioned in the HPI Physical Exam Physical Exam: Constitutional: Alert, ill in appearance, nontoxic HEENT: Mucous membranes dry. Sclera clear Neck: Soft, no adenopathy Lungs: Clear to auscultation, decreased, no wheezes rales or rhonchi CV: S1-S2, regular, tachycardic Abdomen: Soft, nontender, nondistended, no guarding or rigidity Extremities: No significant edema Musculoskeletal: No significant joint tenderness Neuro: No focal deficits, no significant tremor Psych: Cooperative, normal mood Results & Data Results & Data Vital Signs (Past 12 Hours) Vital Signs Temp Pulse Pulse Resp BP BP Pulse Ox 02/07/24 15:34 97 H 18 141/80 H 95 02/07/24 14:33 107 H 20 94 02/07/24 14:31 152/92 H 02/07/24 14:24 111 H 19 94 02/07/24 14:03 99 H 16 95 02/07/24 14:00 116/58 L 02/07/24 14:00 116/58 L 02/07/24 13:54 99 H 20 95 02/07/24 13:32 102 H 21 92 02/07/24 13:30 150/83 H 02/07/24 13:29 98 H 18 94 02/07/24 13:02 96 H 20 95 02/07/24 13:00 143/81 H 02/07/24 12:59 102 H 20 94 02/07/24 12:38 109 H 16 97 02/07/24 12:31 133/97 02/07/24 12:29 88 22 93 02/07/24 12:14 100 H 97 02/07/24 12:07 101 H 02/07/24 11:34 36.6 C 123 H 22 153/89 H 97 O2 Del Method 02/07/24 15:34 Room Air 02/07/24 14:33 02/07/24 14:31 02/07/24 14:24 02/07/24 14:03 02/07/24 14:00 02/07/24 14:00 02/07/24 13:54 02/07/24 13:32 02/07/24 13:30 02/07/24 13:29 02/07/24 13:02 02/07/24 13:00 02/07/24 12:59 02/07/24 12:38 02/07/24 12:31 02/07/24 12:29 02/07/24 12:14 Room Air 02/07/24 12:07 02/07/24 11:34 Room Air Diagnostic Findings Reviewed imaging, laboratory and diagnostic studies. Pertinent findings as below. WBCs 7.1 Hemoglobin 14.0 Platelets of 58 INR 1.4 Electrolytes stable Creatinine 0.45 Glucose of 100 LFTs reviewed, all essentially within his previous ranges Lipase 207, chronically elevated Alcohol level 305.1 Respiratory viral panel negative EKG personally reviewed, sinus tachycardia QTc 520 (1) Alcohol withdrawal syndrome Complication of substance-induced condition: with unspecified complication Qualified Code(s): F10.939 - Alcohol use, unspecified with withdrawal, unspecified
[2024-02-07] MEDS: THIAMINE HCL 100 MG in SYRINGE 9 ML IV STA (15:56)
[2024-02-07 18:29] LABS: Appearance Urine Clear (Clear); Bilirubin Urine 1+ (Negative); Blood Urine Negative (Negative); Color Urine Dark Yellow; Glucose Urine UA Negative (Negative); Ketones Urine Trace (Negative); Leukocyte Esterase Urine Negative (Negative); Nitrite Urine Negative (Negative); Protein Urine Negative (Negative); Urobilinogen Urine Positive (Negative); pH Urine 7.5 (4.5-7.5)
[2024-02-07] MEDS ORDERED: GABAPENTIN 1200MG ALCOHOL WITHDRAWAL LOAD PO STA (19:29)
[2024-02-07] MEDS ORDERED: LORazepam 1 MG TAB PO PRN ×3 (19:29)
[2024-02-07] MEDS ORDERED: Ativan IV Alcohol Withdrawal--Active Protocol IV PRN (19:29)
[2024-02-07] MEDS ORDERED: LORazepam 2 MG/1 ML VIAL IV PRN ×3 (19:29)
[2024-02-07] MEDS ORDERED: MAGNESIUM HYDROXIDE SUSP 30 ML UDC PO PRN (19:29)
[2024-02-07] MEDS ORDERED: Ativan PO Alcohol Withdrawal--Active Protocol PO PRN (19:29)
[2024-02-07] MEDS: MELATONIN 3 MG TAB PO PRN (21:02)
[2024-02-07] MEDS: GABAPENTIN 600 MG TAB PO ONE (21:03)
[2024-02-07] MEDS: GABAPENTIN 600 MG TAB PO SCH (21:03)
[2024-02-08 06:40] LABS: Albumin Level 3.7 gm/dl (3.4-5.0); BUN Creatinine Ratio 12.2 (10-20); Bilirubin Direct 1.4 mg/dl (0-0.2); Bilirubin,Total 4.2 mg/dl (0.2-1.0); Calcium 8.7 mg/dl (8.6-10.3); Creatinine Clr Calc Pharmacy 251.5 ml/min; Magnesium 1.7 mg/dl (1.7-2.4); Phosphorus 2.4 mg/dl (2.5-4.9); Potassium 3.7 mmol/L (3.5-5.1); Total Protein 6.8 gm/dl (6.0-8.3)
[2024-02-08] MEDS: diazePAM 5 MG TABLET PO SCH (07:58)
[2024-02-08] MEDS: nadoloL 40 MG TAB PO SCH (08:02)
[2024-02-08] MEDS: MULTIVITAMIN TAB PO SCH (08:02)
[2024-02-08] MEDS: VITAMIN B COMPLEX TAB PO SCH (08:02)
[2024-02-08] MEDS: FOLIC ACID 1 MG TAB PO SCH (08:02)
[2024-02-08] MEDS: THIAMINE HCL 100 MG TAB PO SCH (08:03)
[2024-02-08] MEDS: HYDROmorphone INJ 0.5 MG/0.5 ML SYR IV PRN (08:08)
[2024-02-08] MEDS: PALIPERIDONE 3 MG TABCR PO SCH (08:24)
[2024-02-08] MEDS ORDERED: MAGNESIUM CHLORIDE 64 MG PO SCH (09:00)
--- NOTE | 2024-02-08 09:06 | Hospitalist Progress Note ---
Date of Service February 08, 2024 Assessment & Plan (1) Alcohol withdrawal syndrome: (2) Alcohol use disorder, severe, dependence: (3) Alcohol intoxication: (4) Thrombocytopenia: (5) OCD (obsessive compulsive disorder): (6) Bipolar 1 disorder: (7) Alcoholic hepatitis: Plan History of multiple admissions with alcohol use disorder, alcohol withdrawal. Reported history of drinking 1 L of vodka daily Patient presented to the hospital for possible alcohol detoxification CBC reveals thrombocytopenia; similar history in the past; attributed to alcohol use. AST/ALT ratio greater than 2; likely due to alcohol use. Alcoholic hepatitis Lipase elevated 207 Blood alcohol level of 305.1 mg per DL on admission Continue alcohol withdrawal protocol with Ativan and gabapentin Schedule Valium added for withdrawals symptoms; will titrate down gradually Will obtain CT abdomen pelvis with IV contrast to rule out acute pancreatitis Full code DVT prophylaxis on hold due to thrombocytopenia Time spent evaluating patient, direct bedside care, chart review, placing o rders, interpretation of diagnostic studies, discussion with consultants, patient, and family members, as well as other required patient management activities is 50 minutes Please note the above document was generated using voice recognition software. It may contain grammatical, syntax or spelling errors. Any formal questions or concerns about the content, text or information contained within the body of this dictation should be directly addressed to the provider for clarification Admission and Anticipated Discharge Date Admission Date: February 07, 2024 Subjective Patient seen and examined at bedside. He has mild tremor; reports lower back pain. Denies nausea, vomiting; no significant events overnight Review of Systems Review of Systems: All systems reviewed & are unremarkable except as noted in Subjective Physical Exam Physical Exam: Constitutional: Alert oriented x 3; has mild tremors Respiratory: Bilateral vesicular breath sound Cardiovascular: RRR, no murmur, no edema Vessels: no JVD or carotid bruit Chest: normal inspection of chest Abdomen: Soft, nontender. Musculoskeletal: no cyanosis or clubbing, extremities motor strength 5/5. mild paraspinal muscle tenderness bilaterally in lower back Skin: no rashes, warm and dry normal turgor Neurologic: PERRL, EOMI, accommodation nl, no face palsy, no dysarthria CN's II- XI intact bilaterally and moves all extremities Psychiatric: A+Ox3, euthymic affect Results & Data Results & Data Vital Signs (Past 12 Hours) Vital Signs Temp Pulse Pulse Resp BP Pulse Ox O2 Del Method 02/08/24 08:00 102 H 02/08/24 07:19 37.5 C 86 19 165/93 H 96 Room Air 02/08/24 03:11 36.9 C 93 H 16 157/80 H 97 Room Air 02/08/24 00:00 96 H 02/07/24 23:10 36.8 C 102 H 18 140/75 96 Room Air (1) Alcohol withdrawal syndrome Complication of substance-induced condition: with unspecified complication Qualified Code(s): F10.939 - Alcohol use, unspecified with withdrawal, unspecified
[2024-02-08] MEDS: OPTIRAY 320 100ml IV ONE (09:58)
[2024-02-08] MEDS: GABAPENTIN 600 MG TAB PO SCH (11:21)
--- NOTE | 2024-02-08 13:24 | CT Scan Report ---
ABDOMEN AND PELVIS CT WITH IV CONTRAST CT DOSE: 1239.99 mGy.cm HISTORY: Acute mid abdominal pain concern for acute pancreatitis TECHNIQUE: Multiaxial CT images of the abdomen and pelvis were performed following the IV administrat ion of Optiray, A dose lowering technique was utilized adhering to the principles of ALARA. COMPARISON STUDY: CT 12/30/2023 FINDINGS: Bibasilar atelectasis. No pneumatosis or pneumoperitoneum. The spleen measures 17.8 cm in l ength. Unremarkable pancreas and adrenal glands. Distended gallbladder with cholelithiasis and wall t hickening. Liver measures up to 19 cm in length. Diffuse heterogeneity of the liver with geographic h epatic steatosis. Patency of the intrahepatic and portal veins. Unremarkable kidneys. No hydronephros is. Decompressed urinary bladder with wall thickening. No abdominal aortic aneurysm. Periportal lymph nodes are likely related to the chronic liver disease. Distal esophageal wall thickening with esophageal varicosities. Recanalization of the umbilical vein with varicosities noted throughout the abdomen. Fluid-filled distended stomach. No bowel obstruction. Areas of wall thickening noted throughout the colon and rectum. The appendix. Small volume of abdomi nopelvic ascites. No acute fracture. Chronic L5 pars defects with grade 1 anterolisthesis. IMPRESSION: 1. Hepatosplenomegaly with hepatic steatosis and cirrhosis. 2. Abdominal and esophageal varicosities and ascites compatible with portal venous hypertension. 3. There is wall thickening noted throughout the large bowel, likely secondary to portal colopathy. A nonspecific colitis could appear similarly. 4. No bowel obstruction or pneumoperitoneum. 5. Normal appendix. 6. No CT evidence of acute pancreatitis. 7. Distended gallbladder with cholelithiasis. ACT 112: Negative or not required by law. The above report was generated using voice recognition software. It may contain grammatical, syntax o r spelling errors. Electronically signed by: Reed Lambert M.D. 02/08/2024 1:21 PM
[2024-02-08] MEDS: ACETAMINOPHEN 325 MG TAB PO PRN (14:17)
[2024-02-08] MEDS: ONDANSETRON INJ 2 MG/ML 2 ML VIAL IV PRN (14:18)
[2024-02-09 03:06] VITALS: RESP 18
[2024-02-09 06:44] LABS: Basophils # (auto) 0.03 K/uL (0.00-0.20); Basophils % (auto) 0.6 %; Eosinophils # (auto) 0.21 K/uL (0.00-0.50); Eosinophils % (auto) 4.3 %; Hematocrit (blood only) 36.4 % (42.0-52.0); Hemoglobin 12.7 g/dl (14.0-18.0); Immature Granulocytes # (auto) 0.03 K/uL (0.01-0.20); Immature Granulocytes % (auto) 0.6 %; Lymphocytes # (auto) 2.13 K/uL (1.20-3.40); Lymphocytes % (auto) 43.4 %; Mean Corpuscular Hemoglobin 32.8 pg (25.0-34.0); Mean Corpuscular Hgb Conc 34.9 g/dL (32.0-36.0); Mean Corpuscular Volume 94.1 fL (80.0-100.0); Mean Platelet Volume 12.7 fL (9.4-12.4); Monocytes # (auto) 0.41 K/uL (0.11-0.59); Monocytes % (auto) 8.4 %; Neutrophils % (auto) 42.7 %; Platelet Count 32 K/uL (130-400); RDW Coefficient of Variation 16.3 % (11.5-14.5); RDW Standard Deviation 55.9 fL (36.4-46.3); Red Blood Count 3.87 M/uL (4.70-6.10); White Blood Count 4.91 K/ul (4.8-10.8)
[2024-02-09 07:04] LABS: Albumin Globulin Ratio 1.2 (0.9-2); Albumin Level 3.5 gm/dl (3.4-5.0); BUN Creatinine Ratio 14.6 (10-20); Bilirubin,Total 4.5 mg/dl (0.2-1.0); Calcium 8.9 mg/dl (8.6-10.3); Creatinine Clr Calc Pharmacy 232.3 ml/min; Potassium 3.8 mmol/L (3.5-5.1); Total Protein 6.5 gm/dl (6.0-8.3)
--- NOTE | 2024-02-09 09:10 | Hospitalist Progress Note ---
Date of Service February 09, 2024 Assessment & Plan (1) Alcohol withdrawal syndrome: (2) Alcohol use disorder, severe, dependence: (3) Alcohol intoxication: (4) Thrombocytopenia: (5) OCD (obsessive compulsive disorder): (6) Bipolar 1 disorder: (7) Alcoholic hepatitis: Plan History of multiple admissions with alcohol use disorder, alcohol withdrawal. Reported history of drinking 1 L of vodka daily Patient presented to the hospital for possible alcohol detoxification CBC reveals thrombocytopenia; similar history in the past; attributed to alcohol use. AST/ALT ratio greater than 2; likely due to alcohol use. Alcoholic hepatitis Lipase elevated 207 Blood alcohol level of 305.1 mg per DL on admission CT abdomen and pelvis shows hepatic cirrhosis and signs of portal venous hypertension. No evidence of pancreatitis. Continue alcohol withdrawal protocol with Ativan and gabapentin Schedule Valium added for withdrawals symptoms; made it q8 hours; gradually to be tapered. Full code DVT prophylaxis on hold due to thrombocytopenia Time spent evaluating patient, direct bedside care, chart review, placing orders, interpretation of diagnostic studies, discussion with consultants, patient, and family members, as well as other required patient management activities is 50 minutes Please note the above document was generated using voice recognition software. It may contain grammatical, syntax or spelling errors. Any formal questions or concerns about the content, text or information contained within the body of this dictation should be directly addressed to the provider for clarification Admission and Anticipated Discharge Date Admission Date: February 07, 2024 Subjective Patient seen and examined at bedside. Comfortable; not in distress. Denies fever, chills, chest pain, shortness of breath, abdominal pain or urinary symptoms. No significant overnight events Review of Systems Review of Systems: All systems reviewed & are unremarkable except as noted in Subjective Physical Exam Physical Exam: Constitutional: Alert oriented x 3; no tremors Respiratory: Bilateral vesicular breath sound Cardiovascular: RRR, no murmur, no edema Vessels: no JVD or carotid bruit Chest: normal inspection of chest Abdomen: Soft, nontender. Musculoskeletal: no cyanosis or clubbing, extremities motor strength 5/5. mild paraspinal muscle tenderness bilaterally in lower back Skin: no rashes, warm and dry normal turgor Neurologic: PERRL, EOMI, accommodation nl, no face palsy, no dysarthria CN's II- XI intact bilaterally and moves all extremities Psychiatric: A+Ox3, euthymic affect Results & Data Results & Data Vital Signs (Past 12 Hours) Vital Signs Temp Pulse Pulse Resp BP Pulse Ox O2 Del Method 02/09/24 07:25 37.0 C 113 H 18 154/81 H 95 Room Air 02/09/24 03:05 37 C 88 18 142/74 H 98 Room Air 02/08/24 22:46 36.9 C 82 16 125/76 94 Room Air 02/08/24 21:55 82 (1) Alcohol withdrawal syndrome Complication of substance-induced condition: with unspecified complication Qualified Code(s): F10.939 - Alcohol use, unspecified with withdrawal, unspecified
[2024-02-09 10:55] VITALS: BP 118/74; PULSE 67; TEMP 98.4; O2SAT 93
[2024-02-09] MEDS: diazePAM 5 MG TABLET PO SCH (11:12)
--- NOTE | 2024-02-09 13:25 | Discharge Summary ---
Date of Service February 09, 2024 Admission HPI Per Admitting Provider Patient is a 33-year-old gentleman with severe addiction to alcohol. has been presenting in the first week of the month with alcohol intoxication and starting with withdrawal symptoms. This is at least the third month in a row. Patient has known alcohol cirrhosis, portal hypertension gastropathy, chronic thrombocytopenia and abnormal coagulopathy due to his alcohol use. He in the emergency room was noted to have alcohol level greater than 300 and was referred to our service for further evaluation and treatment due to his high risk of severe withdrawal. Patient does have a remote history of alcohol withdrawal seizures. Patient states that from his last discharge he was good for a couple days and went on a "2-week childress" where he is drinking at least 1 L of vodka per day. He essentially comes to the emergency room and can no longer get alcohol and he runs out of money. He states he does try and give any money next to his boyfriend so he will not buy alcohol but his addiction is such that he is able to find alcohol 1 way or the other. He says his last drink was 6 AM this morning. He states that he has never been on any medication to curb his addiction such as ReVia. Never considered or went through an inpatient alcohol rehab program. He denies any fever or chills, no cough or cold symptoms, no hematemesis. No blood in his stool or dark tarry stool. No significant abdominal pain. No chest pains or shortness of breath. Does admit to last time signing out AGAINST MEDICAL ADVICE. Stating this time he will pursue our recommendations and follow recommendations. He states his body really does not know how to function without being intoxicated. Principal Diagnosis Alcohol intoxication Discharge Exam Constitutional: WD/WN, vitals as above, NAD, sitting up in bed, pleasant, conversing easily Respiratory: normal respiratory effort, lungs clear to auscultation, no wheeze, rales, rhonchi. Normal insp/exp effort, no accessory muscle use Cardiovascular: RRR, no murmur, no edema Vessels: no JVD or carotid bruit Chest: normal inspection of chest Abdomen: normal bowel sounds, soft, nontender, no hepatosplenomegaly Musculoskeletal: no cyanosis or clubbing, extremities motor strength 5/5 Skin: no rashes, warm and dry normal turgor Neurologic: PERRL, EOMI, accommodation nl, no face palsy, no dysarthria CN's II- XI intact bilaterally and moves all extremities Psychiatric: A+Ox3, euthymic affect Discharge Data Allergies Allergy/AdvReac Type Severity Reaction Status Date / Time No Known Allergies Allergy Verified 12/03/23 21:31 Consultations 02/07/24 15:12 ED Decision to Admit Stat Ordered Studies 02/08/24 09:00 CT Abd and Pelvis [CT abd pelvis IV con only] Urgent Hospital Course (1) Alcohol withdrawal syndrome: (2) Alcohol use disorder, severe, dependence: (3) Alcohol intoxication: (4) Thrombocytopenia: (5) OCD (obsessive compulsive disorder): (6) Bipolar 1 disorder: (7) Alcoholic hepatitis: Plan History of multiple admissions with alcohol use disorder, alcohol withdrawal. Reported history of drinking 1 L of vodka daily Patient presented to the hospital for possible alcohol detoxification CBC reveals thrombocytopenia; similar history in the past; attributed to alcohol use. AST/ALT ratio greater than 2; likely due to alcohol use. Alcoholic hepatitis Lipase elevated 207 Blood alcohol level of 305.1 mg per DL on admission CT abdomen and pelvis shows hepatic cirrhosis and signs of portal venous hypertension. No evidence of pancreatitis. Patient was treated with alcohol withdrawal protocol during the hospitalization. Patient had minimal withdrawal symptoms with mild tremors in bilateral upper extremities. Patient reported marked improvement in symptoms. He wanted to go home. At the time of the discharge, he did not have any withdrawal symptoms. He was alert oriented x 3, no tremors, hallucinations. Recommended patient to follow-up with the PCP and maintain abstinence from alcohol use. Please note the above document was generated using voice recognition software. It may contain grammatical, syntax or spelling errors. Any formal questions or concerns about the content, text or information contained within the body of thi s dictation should be directly addressed to the provider for clarification Total Time Total Time Spent Total Time Spent (In Minutes): 45 Total Time Includes: Examination of the Patient, Discharge Planning, Medication Reconciliation, Communication With Other Providers and Other Discharge Plan Discharge Items Patient Disposition: Home - Self-Care Reason For Visit: ALCOHOL WITHDRAWAL Discharge Diagnosis: Alcohol withdrawal Activity: Resume your previous activity Non-emergency contact: Primary Care Provider Call non-emergency contact if: you have any medication questions Follow-up/Referrals: Tami Upton MD [Primary Care Provider] - Diet: Regular Addtl Attending Provider Instructions: Please follow-up with your PCP after discharge. Pending Studies at Discharge: No Stand-Alone Forms: [facility], Smoking Cessation Medications and DC Order Prescriptions: Continued celecoxib 200 mg capsule 200 mg PO QAM nadolol 40 mg tablet 40 mg PO QAM folic acid 1 mg tablet 1 mg PO QAM furosemide 20 mg tablet 20 mg PO DAILY PRN (Reason: .leg swelling) paliperidone 9 mg tablet extended release 24 hr 9 mg PO QAM multivitamin Tablet 1 tab PO DAILY vitamin B complex Tablet 1 tab PO DAILY melatonin 10 mg Tablet 20 mg PO HS magnesium chloride 64 mg magnesium tablet 64 mg PO UD Rx Instructions: 64 mg BID. hasn't taking in awhile gabapentin 300 mg capsule 300 mg PO UD Rx Instructions: per pt he takes 600 mg po qam and 900 mg po hs Discharge Orders: Discharge Order (Routine); Ordered 02/09/24 Ordered By: Tyler Hung Admission Data Admit Date/Time: 02/07/24 15:41 Attending Provider: Tyler Hung Admit Provider: Osman Hadley Primary Care Provider: Tami Upton Other Providers: Osman Hadley Other Interventions: Discharge Summary Assessment (RN) Last Done: 02/09/24 12:57
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
--- OUTSIDE RECORDS SUMMARY | 2024-02-09 14:14 | External Medical Summary | Summary of Care ---
Author Name Unknown Organization [facility] Address [address] [place] [address] Phone [phone] Care Team Providers Care Rest Room Maid Name Role Phone Tami Upton MD Primary Care Provi elena Reason for Visit * Reason Onset Date Comments Nurse Telephone Follow Up 01/28/2024 Encounter Details Date Type Department Care Team (Late st Contact Info) Description 01/28/2024 2:00 PM EST Scheduled Telephone [facility] [address] [facility] [address] [facility] Ricki Phone Call Interventional Pain [facility] [address] [facility] [place] [address] Arrived Allergies No known active allergiesdocumented as of this encounter (statuses as of 01/28/2024) Medications Folic Acid 1 MG Oral Tablet Take 1 Tablet by mouth in the morning. 30 Tablet 2 4 Active Melatonin 10 MG Oral Tablet Chewable Take by mouth. Activ e Sucralfate 1 GM/10ML Oral Suspension (Carafate) Take 10 mL by mouth in the morning and 10 mL at noon and 10 mL in the evening and 10 mL before bedtime. 4 Active Gabapentin 300 MG Oral Capsule (Neurontin) Take 1 Capsule by mouth in the morning and 1 Capsule before bedtime. 4 Active Celecoxib 200 MG Oral Capsule (CeleBREX) Take 1 Capsule by mouth in the morning. 20 Capsule 2 4 Active Additional Information Patient taking differently:200 mg Oral Daily(AM),As needed, Reported on 10/29/2023 Omeprazole 20 MG Oral Capsule Delayed Release (PriLOSEC) Take 1 Capsule by mouth in the morning. Active Furosemide 20 MG Oral Tablet (Lasix)Indicatio ns:Bilateral leg edema Take 1 Tablet by mouth daily as needed (Leg swelling). 30 Tablet 2 4 Active Paliperidone ER 9 MG Oral Tablet Extended Release 24 Hour (Invega)Indicati ons:Other insomnia,Bipolar affective disorder, current episode mixed, current episode severity unspecified (HCC) Take 1 Tablet by mouth in the morning. 90 Tablet 3 4 Active Nadolol 40 MG Oral Tablet (Corgard) Take 1 Tablet by mouth in the morning. 90 Tablet 1 4 Active Pantoprazole Sodium 40 MG Oral Tablet Delayed Release (Protonix) Take 1 Tablet by mouth in the morning and 1 Tablet before bedtime. 4 Active chlordiazePOXIDE HCl 5 MG Oral Capsule [...] morning and 1 Tablet before bedtime. Active LORazepam 0.5 MG Oral Tablet (Ativan) Take 1 Tablet by mouth every 8 hours as needed for Anxiety. Active documented as of this encounter (statuses as of 01/28/2024) Active Problems Problem Noted Date Diagnosed Date [...] as of this encounter (statuses as of 01/28/2024) Resolved Problems Problem Noted Date Diagnosed Date Resolved Date History of Lyme disease 04/02/2023 06/2 03/2023 Overview (04/02/2023): Suspected, positive IgG Alcohol withdrawal syndrome with complication 03/30/1904/02/2023 Neutropenic fever 03/30/2023 04/02/2023 Acute alcoholic intoxication with complication 03/29/2023 03/30/2023 Leucopenia 03/29/2023 04/02/2023 Thrombocytopenia due to drugs 03/29/2023 08/23/2023 Drug-induced liver injury 03/29/2023 Alcohol induced fatty liver 03/29/2023 08/23/2023 Elevated liver transaminase level 03/29/2023 08/23/2023 Hepatosplenomegaly 03/28/2023 Acute hyperactive alcohol withdrawal delirium 04/05/1903/30/2023 ADVANCE DIRECTIVE INFORMATION 03/08/2005 01/06/2024 Overview (03/08/2005): Not applicable (under age of 18) documented as of this encounter (statuses as of 01/28/2024) Immunizations Name Administration Dates Next Due Pneumococcal Conjugate Vaccine, 20-valent (Prevn ar20) 01/31/2023 Seasonal Influenza, PF, 6 M & above, IM , (FluLaval or Fluzone) 11/24/2022 TDAP (age 10 and older)(Boostrix) 01/31/2023 TDAP, Age 7 and older, IM (Adacel) 08/08/2011 documented as of this encounter Social History Tobacco Use Types Packs/Day Years Used Date Smoking Tobacco: Every Day Cigarettes 0.5 20.9 Started: 2003 Smokeless Tobacco: Never Alcohol Use [...] Assigned at Male 10/26/2022 1:34 PM EDT Legal Sex Male 5:57 AM EST Gender Identity Not on file Sexual Orientation Bisexual 10/26/2022 1: 34 PM EDT 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 Additional levels: T11, T12 medialbranch blocks, bilateral. Date:01/27/24 Time: 0800 Reports % relief Provocative Maneuvers: Full intensity pain returned at Pain Meds Baseline and after procedure pain scale: Insurance: [employer] Attempted to contact patient. No answer, left message for patient to return call to the clinic. documented in this encounter Plan of Treatment Upcoming Encounters Date Type Department Care Team (Latest Contact Info) Description 03/11/2024 7:35 AM EST Hospital Encounter OR [facility], Operating Room [facility] [address] [place] [phone] Manuel Bashir DO [address] [place] [phone] 03/11/2024 7:35 AM EST - 03/11/2024 8:25 AM EST Surgery OR [facility], Operating Room [facility] [address] [place] [phone] Manuel Bashir DO [address] [place] [phone] DESTROY LUMBAR SACRAL NERVE IMAGING SINGLE 04/14/2024 3:20 PM EST Telemedicine Hepatology, [facility] [address] [phone] Katty Hernandes DO [address] [place] [phone] Scheduled Procedures Name Priority Associated Diagnoses Date/Ti me DESTROY LUMBAR SACRAL NERVE IMAGING SINGLE Spondylosis [...] (FLU shot) (#1) 2023 11/24/2022 Diabetes Screening 12/05/2026 12/06/2023, 0 09/17/2023, 09/11/2023, Additional history exists DTap/Tdap Vaccines (8 - [...] Advance Directives occurred with: Patient Care Teams Rest Room Maid Relationship Specialty Start Date End Date Tami Upton MD [address] [place] [phone] PCP - General Family Medicine 11/12/23 documented as of this encounter
--- OUTSIDE RECORDS SUMMARY | 2024-02-09 14:14 | External Medical Summary | Summary of Care ---
Author Name Unknown Organization [facility] Address [address] [place] [address] Phone [phone] Care Team Providers Care Knitter Hand Name Role Phone Tami Upton MD Primary Care Provi elena Encounter Details Date Type Department Care Team ([facility] st Contact Info) Description 01/13/2024 Orders Only Family Practice [address] [phone] Tami Upton MD [address] [place] [phone] Allergies No known active allergiesdocumented as of this encounter (statuses as of 01/13/2024) Medications Folic Acid 1 MG Oral Tablet [...] as of this encounter (statuses as of 01/13/2024) Active Problems Problem Noted Date Diagnosed Date [...] as of this encounter (statuses as of 01/13/2024) Resolved Problems Problem Noted Date Diagnosed Date [...] as of this encounter (statuses as of 01/13/2024) Immunizations Name Administration Dates Next Due Pneumococcal [...] 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 Not on file Not on file documented as of this encounter Plan of Treatment Upcoming Encounters Date Type Department Care Team (Latest Contact Info) Description 02/14/2024 1:45 PM EST Hospital Encounter [facility], Operating Room [facility] [address] [place] [phone] Manuel Bashir, DO [address] [place] [address] 02/14/2024 1:45 PM EST - 02/14/2024 2:10 PM EST Surgery OR [facility], Operating Room [facility] [address] [place] [phone] Manuel Bashir, DO [address] [place] [address] L-/S-SPINE PARAVERTEBRAL FACET INJ, 1 LEVEL 03/11/2024 7:35 AM EST Hospital Encounter OR [facility], Operating Room [facility] [address] [place] [address] Manuel Bashir, DO [address] [place] [address] 03/11/2024 7:35 AM EST - 03/11/2024 8:25 AM EST Surgery OR [facility], Operating Room [facility] [address] [place] [phone] Manuel Bashir, DO [address] [place] [address] DESTROY LUMBAR SACRAL NERVE IMAGING SINGLE 04/14/2024 3:20 PM EST Telemedicine Hepatology, [address], [place] [address] Katty Hernandes, DO [address] [place] [address] Scheduled Procedures Name Priority Associated Diagnoses Date/Ti [...] Procedure Name Priority Date/Time Associated Diagnosis Comments HIV ANTIGEN & ANTIBODY SCREEN W/ CONFIRMATION Routine 12/06/2023 CHEMISTRY-OUTSIDE Routine 12/06/2023 HEPATITIS C ANTIBODY Routine 12/06/2023 CT ABD/PELVIS W IV AND W ORAL CONTRAST Routine 12/03/2023 documented in this encounter Results * HEPATITIS C ANTIBODY (12/06/2023) Blood Venous blood specimen / Unknown 12/06/2023 us History Per Patient LAB BLOOD ORDERABLES Final R [facility] OUTSIDE LAB (SEE SCANNED REPORT) * HIV ANTIGEN & ANTIBODY SCREEN W/ CONFIRMATION (12/06/2023) Blood Venous blood specimen / Unknown 12/06/2023 us History Per Patient LAB BLOOD ORDERABLES Final R [facility] OUTSIDE LAB (SEE SCANNED REPORT) * CHEMISTRY-OUTSIDE (12/06/2023) Not all results display below - see scan for full detail OUTSIDE LAB (SEE SCANNED REPORT) Comment:SCAN INCL: INPT LABS : CBCD,PT, INR,UA,CMP,MG,PHOS,DRUG SCR,HEP B, HEP A,TYPE/SCR,LIPASE,ALCOHOL CREATININE 0.61 0.6 - 1.4 MG/DL OUTSIDE LAB (SEE SCANNED REPORT) EGFR 128.46 OUTSIDE LA B (SEE SCANNED REPORT) POTASSIUM 4.0 3.5 - 5.1 MMOL/L OUTSIDE LAB (SEE SCANNED REPORT) GLUCOSE 92 70 - 99 MG/DL OUTSIDE LAB (SEE SCANNED REPORT) HOURS FASTING OUTSID E LAB (SEE SCANNED REPORT) TRIGLYCERIDES-OUT SIDE LAB OUTSIDE LAB (SEE SCANNED REPORT) CHOLESTEROL-OUTSI DE LAB OUTSIDE LAB (SEE SCANNED REPORT) HDL-OUTSIDE LAB OUTS [facility] LAB (SEE SCANNED REPORT) CHOL/HDL RATIO-OUTSIDE LAB OUTSIDE LA B (SEE SCANNED REPORT) LDL (CALCULATED)-OUTS [facility] OUTSIDE LAB (SEE SCANNED REPORT) LDL (DIRECT MEASURE)-OUTSIDE LAB OUTSIDE LAB (SEE SCANNED REPORT) HEMOGLOBIN, [id number] LAB 5.0 OUTSIDE LAB (SEE SCANNED REPORT) PHOSPHORUS-OUTSID E LAB 3.0 2.6 - 4.9 MG/DL OUTSIDE LAB (SEE SCANNED REPORT) PTH-OUTSIDE LAB OUTS PAIGE LAB (SEE SCANNED REPORT) MICROALBUMIN RATIO-OUTSIDE LAB OUTSIDE LA B (SEE SCANNED REPORT) PROTEIN, UA-OUTSIDE LAB OUTSIDE LAB (SEE SCANNED REPORT) HGB 14.4 14.0 - 18.0 G/DL OUTSIDE LAB (SEE SCANNED REPORT) 12/06/2023 us History Per Patient LABORATORY Final Result OUTSIDE LAB (SEE SCANNED REPORT) * CT ABD/PELVIS W IV AND W ORAL CONTRAST (12/03/2023) Anatomical Region Laterality Modality Body, Abdomen, Pelvis Other 12/03/2023 us History Per Patient RAD CT Final Result documented in this encounter Advance Directives * Full Code (Latest Code Status on File) Date Activated Date Inactivated Comments 03/29/2023 1:43 PM 04/02/2023 2:03 PM This order r eflects the patients wishes and were consensually agreed upon. Question Answer Comments Discussion of Advance Directives occurred with: Patient Care Teams Knitter Hand Relationship Specialty Start Date End Date Tami Upton MD [address] [place] [phone] PCP - General Family Medicine 11/12/23 documented as of this encounter
--- OUTSIDE RECORDS SUMMARY | 2024-02-09 14:14 | External Medical Summary | Summary of Care ---
Author Name Unknown Organization [facility] Address [address] [place] [address] Phone [phone] Care Team Providers Care Care Transport Nurse Name Role Phone Tami Upton MD Primary Care Provi elena Reason for Visit * Reason Onset Date Comments FYI 11/01/2023 Encounter Details Date Type Department Care Team (Late st Contact Info) Description 11/01/2023 Telephone Orthopaedics [facility] [address] [place] [address] Iván Vyas MD [address] [place] [phone] FYI Allergies No known active allergiesdocumented as of this encounter (statuses as of 01/31/2024) Medications Folic Acid 1 MG Oral Tablet [...] as of this encounter (statuses as of 01/31/2024) Active Problems Problem Noted Date Diagnosed Date [...] as of this encounter (statuses as of 01/31/2024) Resolved Problems Problem Noted Date Diagnosed Date [...] as of this encounter (statuses as of 01/31/2024) Immunizations Name Administration Dates Next Due Pneumococcal [...] 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 Pt was trying to schedule at the [place] location. Pt has [employer] and [facility] does not accept this insurance. Ph# for [place] office is [phone], but Danny can be reached at [phone] with any questions. documented in this encounter Plan of Treatment Upcoming Encounters Date Type Department Care Team (Latest Contact Info) Description 03/11/2024 7:35 AM EST Hospital Encounter OR [facility], Operating Room [facility] [address] [place] [phone] Manuel Bashir, DO [address] [place] [address] 03/11/2024 7:35 AM EST - 03/11/2024 8:25 AM EST Surgery OR [facility], Operating Room [facility] [address] [place] [phone] Manuel Bashir, DO [address] [place] [address] DESTROY LUMBAR SACRAL NERVE IMAGING SINGLE 04/14/2024 3:20 PM EST Telemedicine Hepatology, [address] [phone] Katty Hernandes, DO [address] [place] [address] Scheduled Procedures Name Priority Associated Diagnoses Date/Ti [...] Advance Directives occurred with: Patient Care Teams Care Transport Nurse Relationship Specialty Start Date End Date Tami Upton MD [address] [place] [phone] PCP - General Family Medicine 11/12/23 documented as of this encounter
--- OUTSIDE RECORDS SUMMARY | 2024-02-09 14:14 | External Medical Summary | Summary of Care ---
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 [M47.816] Procedures L-/S-SPINE PARAVERTEBRAL FACET INJ,1 LEVEL L-/S-SPINE PARAVERTEBRL FACET INJ,2 LEVELS L-/S-SPINE PARAVERTEBRAL FACET INJ, 1 LEVEL L-/S-SPINE PARAVERTEBRAL FACET INJ, 2 LEVELS Manuel Bashir DO [address] [place] [address] Phone: tel: fax: [facility] [address] [place] [address] Phone: tel: Referral ID Status Reason Start Date Expiration Date Visits Re quested Visits Authorized [id number] Encounter Details Date Type Department Care Team (Latest Contact Info) Description 01/27/2024 7:06 AM EST - 01/27/2024 8:23 AM EST Hospital Encounter [facility] [address] [place] [address] Manuel Bashir DO [address] [place] [address] Discharge Disposition: Home - Self Care Allergies No known active allergiesdocumented as of this encounter (statuses as of 01/27/2024) Medications Folic Acid 1 MG Oral Tablet [...] as of this encounter (statuses as of 01/27/2024) Active Problems Problem Noted Date Diagnosed Date [...] as of this encounter (statuses as of 01/27/2024) Resolved Problems Problem Noted Date Diagnosed Date Resolved Date History of Lyme disease 04/02/202308/03 Overview (04/02/2023): Suspected, positive IgG Alcohol withdrawal syndrome with complication 03/30/19 24 04/02/2023 Neutropenic fever 03/30/2023 04/02/2023 Acute alcoholic intoxication with complication 03/29/2023 03/30/2023 Leucopenia 03/29/2023 04/02/2023 Thrombocytopenia due to drugs 03/29/2023 08/23/2023 Drug-induced liver injury 03/29/2023 Alcohol induced fatty liver 03/29/2023 08/23/2023 Elevated liver transaminase level 03/29/2023 08/23/2023 Hepatosplenomegaly 03/28/2023 Acute hyperactive alcohol withdrawal delirium 04/05/19 23 03/30/2023 ADVANCE DIRECTIVE INFORMATION 03/08/2005 01/06/2024 Overview (03/08/2005): Not applicable (under age of 18) documented as of this encounter (statuses as of 01/27/2024) Immunizations Name Administration Dates Next Due Pneumococcal [...] 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 file Not on file Not on file documented as of this encounter Last Filed Vital Signs Vital Sign Reading Time Taken Comments Blood Pressure 140/87 01/27/2024 8:19 AM EST Pulse 75 01/27/2024 8:19 AM EST Temperature 36.6 C (97.9 F) 01/27/2024 8:19 AM ES T Respiratory Rate 17 01/27/2024 8:19 AM EST Oxygen Saturation 100% 01/27/2024 8:19 AM EST Inhaled Oxygen Concentration - - Weight - - Height - - Body Mass Index - - documented in this encounter Discharge Instructions * Discharge Instr - AVS* Manuel Bashir DO - 01/27/2024 8:19 AM EST [facility] [address] [facility] [place] [address] Discharge Date: 01/27/2024 You may call [facility] at [phone] during business hours. For after-hours emergencies call 911. Your attending physician at the time of your discharge was: [facility] Bashir DO [address] [facility] [place] [address] The information below provides you with the instructions and the list of medications you need to betaking following discharge from the hospital. If you have any questions, please ask before leaving.Please carry this letter with you when you see your doctor in the clinic. Diet: Resume your normal diet If you are diabetic, follow your blood sugars closely for next 2-3 days as they are likely to be elevated. If you are having difficulty controlling your blood sugars call your family doctor or the physician that treats your diabetes. Activity: Do not engage in strenuous activity today Resume your normal activities tomorrow Do not soak in water for 24 hours. No swimming, hot tub or bath but showering is allowed. Do not use heat on the injection site for 24 hours. If uncomfortable ice may be helpful. Some injections may make your arms or legs weak for a few hours. Be extremely careful when walking or changing positions that you do not fall. Have someone assist you for the next 6 hours. If weakness or numbness becomes progressive CALL IMMEDIATELY or GO TO THE NEAREST EMERGENCY ROOM Do not restart physical therapy or chiropractic manipulation until 48 hours after your injection Call : If weakness or numbness suddenly becomes worse or become progressive If the injection site becomes red, swollen, warm to the touch, begins to bleed or drain fluid, or is excessively painful. If you have any questions Medications: Resume all the medications you were taking prior to your injection. Resume your anticoagulants tomorrow unless otherwise instructed by your family physician, cleaner and polisher or the anticoagulation clinic. Additional Instructions: It is recommended that you complete the provided hourly pain/activity log to track your pain relief to help you determine the level of relief you received from this injection. Driving: It will be OK to drive after 12-24 hours if no weakness is noted. Date you may return to work or school: N/A Follow Up: Please ensure that you have a scheduled telephone follow-up with [facility] office at [phone] in 1-2 business days to review the results of the injection you received. documented in this encounter Progress Notes * Manuel Bashir DO - 01/27/2024 8:19 AM EST [facility] [place] [address] [facility] [address] OUTPATIENT SURGERY DISCHARGE SUMMARY NOTE Name: Esdras Storey Location: [facility] Date: 01/27/2024 Time: 8:19 AM Surgery Date: 01/27/2024 Procedure: L-/S-SPINE PARAVERTEBRAL FACET INJ, 1 LEVEL, L-/S-SPINE PARAVERTEBRAL FACET INJ, 2 LEVELS No laterality found for procedure #1 No laterality found for procedure #2 Surgeon: Manuel Bashir DO Discharge Diagnosis: thoracolumbar spondylosis After examination of this patient, I have determined he is ready for discharge to home when the patient meets criteria. Discharge instructions were given to the patient. Manuel Bashir DO [facility], [facility] [address] [place] [address] documented in this encounter H&P Notes * Manuel Bashir DO - 01/27/2024 7:46 AM EST Interventional Pain H&P Subjective: History of Present Illness: Esdras Storey is a 33 year old year-old male with a past medical history significant for lumbar spondylosis who is presenting for bilateral T10, T11, T12 MBB (same levels but they were wrongly named previously based on review of prior XR) to improve his pain and function. his pain is essentially unchanged since our last office visit with him. ASA 3 AW nml Review of Systems: A focused 12-pt ROS were of reviewed with the patient including difficulty with sleep, snoring, aspiration history, dysphagia, stomach pain, nausea and vomiting, severe headaches, confusion, open skin lesions or wounds, chest pain, shortness of breath, excessive thirst, somnolence, dysuria, incomplete bladder emptying, easy bruising, recent clotting problems or bleeding, depression or rushed thoughts unless noted previously. Review of patient's allergies indicates: No Known Allergies Medications, Past Medical History, Past Surgical History reviewed and documented in Epic. See detailed report if needed. Pertinent Labs/Test Results: INR (no units) Date Value 09/11/2023 1.8 (H) No results found for: "CREATININE" HEMOGLOBIN, [id number] LAB (no units) Date Value 12/06/2023 5.0 Lab Results Component Value Date/Time AMPHETAMINES POCT - [facility] Negative 04/25/2023 12:00 AM AMPHETAMINES SCREEN - [facility] Negative 05/29/2023 02:14 PM BARBITURATES POCT - [facility] Positive 04/25/2023 12:00 AM BARBITURATES SCREEN - [facility] Positive (A) 03/29/2023 02:07 PM BENZODIAZEPINES POCT - [facility] Positive 04/25/2023 12:00 AM BENZODIAZEPINES SCREEN - [facility] Negative 05/29/2023 02:14 PM METHADONE METABOLITE - [facility] Negative 05/29/2023 02:14 PM METHADONE SCREEN POCT - [facility] Negative 04/25/2023 12:00 AM METHADONE SCREEN, U Negative 03/29/2023 02:07 PM OXYCODONE / OXYMORPHONE - [facility] Negative 05/29/2023 02:14 PM OXYCODONE POCT - [facility] Negative 04/25/2023 12:00 AM CANNABINOIDS POCT - [facility] Positive 04/25/2023 12:00 AM CANNABINOIDS SCREEN - [facility] Positive (A) 05/29/2023 02:14 PM Imaging: I personally reviewed the imaging and my findings were . RADIOLOGY EXAM - US (IMAGES ONLY, NO REPORT) This is an imaging study not interpreted or resulted by a [facility] or [facility] contracted radiologist. Objective Physical Exam: Vital Signs: BP 134/83 | Pulse 80 | Temp 36.6 C (97.9 F) (Tympanic) | Resp 18 | SpO2 100% Thereis no height or weight on file to calculate BMI. General: No apparent distress. Eyes: pupils equal and round, sclera white, pupils midsize. ENT: mucous membranes moist Resp: Non-labored breathing CV: Extremities warm and well-perfused. Psych: Oriented; affect warm, insight good. Skin: No rashes or lesions appreciated on exposed skin Neuromuscular Exam: Facet loading pos, TTT over lumbar psine Assessment: Esdras is a 33 year old year-old male with: Lumbar spondylosis Plan: The patient is undergoing bilateral T10, T11, T12 medial branch blocks today to alleviate his pain and improve his function. The risks, benefits and alternatives to the procedure were reviewed at length and the patient was provided the opportunity to ask questions which were answered to their voiced understanding. Following this comprehensive discussion, the patient opted to proceed. The patient was consented to the procedure following this comprehensive conversation. The levels planned are the SAME levels as completed before but the numbering review on prior lumbarXR reveeals that the patient has a small floating rib at what appears to be a lumbar L1 segment which means this is T12. Because of this, have revised the numbering accordingly as the needles were placed onto the junctions at T11, T12 and L1 by Dr. Lima. Manuel Bashir DO [facility], [facility] [address] documented in this encounter Nursing Notes * Paola Lozano RN - 01/27/2024 8:22 AM EST Pt tolerated procedure well. Pt has been visited by Dr. Bashir. Discharge instructions reviewed with pt and pt has verbalized understanding of these teachings. Pt ready for discharge. * Aaliyah Sood RN - 01/27/2024 8:14 AM EST Band aid applied to area. Patient transferred to PACU 11 via wheelchair * Aaliyah Sood RN - 01/27/2024 8:09 AM EST Patient tolerating pain management injection well. documented in this encounter OR Notes * OR Surgeon - Manuel Bashir DO - 01/27/2024 8:17 AM EST Diagnostic Medial Branch Nerve Blocks DATE: 01/27/2024 PHYSICIAN: Manuel Bashir DO PREOPERATIVE DIAGNOSIS: Lumbar spondylosis POSTOPERATIVE DIAGNOSIS: Lumbar spondylosis PROCEDURES PERFORMED: 1. T10 diagnostic medial branch nerve blocks, bilateral. 2. Additional levels: T11, T12 medial branch blocks, bilateral. 3. Fluoroscopy for precise needle localization MONITORS: Automatic blood pressure cuff and pulse oximetry readily available There was no anesthesia assistant, EBL or drains placed during this procedure. INDICATIONS: We had the pleasure of seeing Esdras Storey ([id number]) in the pain management clinic at [facility] today. The patient has a history of lumbar spondylosis. Thepatient is here today for diagnostic lumbar medial branch nerve blocks. MEDICATIONS: Current Facility-Administered Medications Medication Dose Route Frequency Provider Last Rate Last Admin lidocaine 1 % inj 15 mg 1.5 mL Subcutaneous Once Manuel Bashir DO ALLERGIES: Review of patient's allergies indicates: No Known Allergies REVIEW OF SYSTEMS: Negative for fever, chills, chest pain, SOB, bleeding abnormalities, nausea, vomiting, diarrhea, worsening edema, or new rashes. FOCUSED PHYSICAL EXAMINATION: The patient is awake, alert and oriented, and is in no acute distress. Vital signs are stable. The patient is afebrile. The rest of the PE is essentially unchanged from the patient's recent visit to our office. I explained the procedure to the patient including the risks, benefits and alternatives to the procedure. The risks discussed with the patient included but were not limited to: bleeding, infection, and damage to surrounding nerves, tissues, and organs, paralysis, increased pain, allergic reaction, blood pressure instability, seizures, heart block, headaches, and . Alternatives to the procedure were also explained and include: do nothing, surgery, medications, and physical therapy. The patient verbalized understanding and was willing to proceed. PROCEDURE IN DETAIL: An informed consent was obtained. The patient was taken to the procedure room and was positively identified by the staff and the attending physician. The patient was positioned prone on the procedure bed. Vital signs were monitored as above and remained stable throughout the procedure. The skin was prepped and draped in the standard sterile fashion with ChloraPrep. A surgicalpause (time-out) was performed and was agreed upon by the members of the team. A fluoroscopic view of the lumbar spine was obtained, and the area of interest was identified. Under fluoroscopic guidance a 25-gauge 3.5-inch spinal needle was advanced towards the junction between the transverse process and the superior articular process of the T11, T12 and [id number] bodies for the T10, T11, and T12 medial branch nerves on the right side. Full contact with the osseous structures was obtained. Proper needle position was verified in AP and declined views. After this, 0.5ml of bupivacaine 0.5% was injected at each point. All needles were withdrawn. The patient tolerated the procedure well. THIS IS THE SAME PROCEDURE THE PRIOR PERFORMED BY DR LIMA. THE NUMBERING BEEN REVISED BASED ON A COUNT TODAY AND BASED ON PRIOR IMAGING. COMPLICATIONS: None. DISPOSITION: No follow-ups on file. The patient was provided with a pain diary for completion. Manuel Bashir DO [facility] [address] [place] [address] documented in this encounter Plan of Treatment Upcoming Encounters Date Type Department Care Team (Late st Contact Info) Description 01/28/2024 2:00 PM EST Scheduled Telephone Interventional Pain Center, [facility] [address] [place] [address] Nurse Ricki Phone Call Interventional Pain [facility] [address] [place] [address] 03/11/2024 7:35 AM EST Hospital Encounter [facility] [address] [place] [address] Manuel Bashir DO [address] [place] [address] 03/11/2024 7:35 AM EST - 03/11/2024 8:25 AM EST Surgery [facility] [address] [place] [address] Manuel Bashir DO [address] [place] [phone] DESTROY LUMBAR SACRAL NERVE IMAGING SINGLE 04/14/2024 3:20 PM EST Telemedicine Hepatology, Adrianne Epps [address] [place] [address] Greta Katty Jenkins, DO [address] [place] [address] Scheduled Procedures Name Priority Associated Diagnoses Date/Ti me L-/S-SPINE PARAVERTEBRAL FAC ET INJ, 1 LEVEL Spondylosis of lumbar region without myelopathy or radiculopathy 01/27/2024 8:00 AM EST L-/S-SPINE PARAVERTEBRAL FAC ET INJ, 2 LEVELS Spondylosis of lumbar region without myelopathy or radiculopathy 01/27/2024 8:00 AM EST DESTROY LUMBAR SACRAL NERVE IMAGING SINGLE [...] Comments FLUORO INTERVENTIONAL PAIN PROCEDURE NONBILLABLE Routine 01/27/2024 8:22 AM EST documented in this encounter Results * FLUORO INTERVENTIONAL PAIN PROCEDURE NONBILLABLE (01/27/2024 8:22 AM EST) Narrative Scheduling, Silent - 01/27/2024 8:22 AM EST This procedure will not be read by a Radiologist. Please see operative note. us Manuel Bashir DO RAD FLUOROSCOPY Final Result documented in this encounter Administered Medications Inactive Administered Medications - up to 3 most recent administrations Medication Order MAR Action Action Date Dose Rate Site BUPivacaine HCl (Sensorcaine) 0.5 % (PF) inj 7.5 mg 7.5 mg (1.5 mL), Injection, ONCE, On Sat01/27/24 at 0745, For 1 dose, Left Given 01/27/2024 8:07 AM EST 3 mL Other-Specify documented in this encounter Active and Recently Administered Medications Times are shown in EST. Scheduled Medication Order 01/25/2024 01/26/2024 01/27/2024 BUPivacaine HCl (Sensorcaine) 0.5 % (PF) inj 7.5 mg (COMPLETED) 7.5 mg (1.5 mL), Injection, ONCE, On Sat01/27/24 at 0745, For 1 dose, Left 0807 (Given - Provid er: Aaliyah Sood RN - Comment: bilateral T10,T11,T12 mbbdivided doses) lidocaine 1 % inj 15 mg 15 mg (1.5 mL), Subcutaneous, ONCE, On Sat01/27/24 at 0745, For 1 dose, Left 0745 (Not Given - Pr ovider: Aaliyah Sood RN - Reason: Order Clarified) documented in this encounter Advance Directives * Full Code (Latest Code Status on File) Date Activated Date Inactivated Comments 03/29/2023 1:43 PM 04/02/2023 2:03 PM This order r eflects the patients wishes and were consensually agreed upon. Question Answer Comments Discussion of Advance Directives occurred with: Patient Care Teams Personal Banking Representative Relationship Specialty Start Date End Date Tami Upton MD [address] [place] [phone] PCP - General Family Medicine 11/12/23 documented as of this encounter
--- OUTSIDE RECORDS SUMMARY | 2024-02-09 14:15 | External Medical Summary | Summary of Care ---
Author Name Unknown Organization [facility] Address [address] [place] [address] Phone [phone] Care Team Providers Care Artistic Director Name Role Phone Tami Upton MD Primary Care Provi elena Reason for Visit * Reason Onset Date Comments Other 12/31/2023 Encounter Details Date Type Department Care Team (Late st Contact Info) Description 12/31/2023 Telephone Gastroenterology, [facility] [address] [place] [address] Katty Hernandes DO [address] [place] [address] Other (/) Allergies No known active allergiesdocumented as of this encounter (statuses as of 12/31/2023) Medications Medication Sig Dispensed Refills Start Date [...] as of this encounter (statuses as of 12/31/2023) Active Problems Problem Noted Date Diagnosed Date [...] as of this encounter (statuses as of 12/31/2023) Resolved Problems Problem Noted Date Diagnosed Date [...] as of this encounter (statuses as of 12/31/2023) Immunizations Name Administration Dates Next Due Pneumococcal [...] encounter Miscellaneous Notes * Telephone Encounter - Nakita Monique, ARLETH - 12/31/2023 8:43 AM EDT FYI Received msg from [facility], pt is currently admitted for coffee ground emesis, elevated lft's and alcoholism ARLETH Bucio 12/31/2023 8:44 AM documented in this encounter Plan of Treatment Upcoming Encounters Date Type Department Care Team (Latest Contact Info) Description 02/14/2024 1:45 PM EST Hospital Encounter [facility] [address] [place] [address] Manuel Bashir, DO [address] [place] [address] 02/14/2024 1:45 PM EST - 02/14/2024 2:10 PM EST Surgery [facility] [address] [place] [address] Manuel Bashir, [address] [place] [address] L-/S-SPINE PARAVERTEBRAL FACET INJ, 1 LEVEL 03/11/2024 7:35 AM EST Hospital Encounter [facility] [address] [place] [address] Manuel Bashir, DO [address] [place] [address] 03/11/2024 7:35 AM EST - 03/11/2024 8:25 AM EST Surgery [facility] [address] [place] [address] Manuel Bashir, DO [address] [place] [address] DESTROY LUMBAR SACRAL NERVE IMAGING SINGLE 04/14/2024 3:20 PM EST Telemedicine Hepatology, [address] [address] Katty Hernandes, DO [address] [place] [address] Scheduled Procedures Name Priority Associated Diagnoses Date/Ti [...] Advance Directives occurred with: Patient Care Teams Artistic Director Relationship Specialty Start Date End Date Tami Upton MD [address] [place] [phone] PCP - General Family Medicine 11/12/23 documented as of this encounter
--- OUTSIDE RECORDS SUMMARY | 2024-02-09 14:15 | External Medical Summary | Summary of Care ---
Author Name Unknown Organization [facility] Address [address] [place] [address] Phone [phone] Care Team Providers Care Tool Inspector Name Role Phone Tami Upton MD Primary Care Provi elena Reason for Visit * Reason Onset Date Comments Advice 10/03/2023 Mom 8 Encounter Details Date Type Department Care Team ([facility] st Contact Info) Description 10/03/2023 Telephone Family Practice [address] [phone] Tami Upton MD [address] [place] [phone] Advice (Mom 8) Allergies No known active allergiesdocumented as of this encounter (statuses as of 01/01/2024) Medications Medication Sig Dispensed Refills Start Date [...] the morning. 90 Tablet 1 09/26/2023 Active documented as of this encounter (statuses as of 01/01/2024) Active Problems Problem Noted Date Diagnosed Date [...] as of this encounter (statuses as of 01/01/2024) Resolved Problems Problem Noted Date Diagnosed Date [...] as of this encounter (statuses as of 01/01/2024) Immunizations Name Administration Dates Next Due Pneumococcal [...] No 10/26/2022 Does the household have a [facility] source of income? (Household - for [...] encounter Miscellaneous Notes * Telephone Encounter - Cory Fernando OSA - 10/03/2023 4:54 PM EDT Patient called back. Relayed message. Will get appeals info/paperwork and call back. * Telephone Encounter - Melia Stevens LPN - 10/03/2023 3:16 PM EDT Message left on answering machine Please see message below from Dr Upton. Thanks * Telephone Encounter - Tami Upton MD - 10/03/2023 1:37 PM EDT If they have any paperwork they would like me to fill out for the appeal or any medical records, please let me know. * Telephone Encounter - Iris Merchant OSA - 10/03/2023 12:20 PM EDT Patient is reaching out because he was advised to reach out to the office if he was denied disability. PCP states she would be willing to help patient with his appeal. documented in this encounter Plan of Treatment Upcoming Encounters Date Type Department Care Team (Latest Contact Info) Description 02/14/2024 1:45 PM EST Hospital Encounter [facility] [address] [place] [address] Manuel Bashir DO [address] [place] [address] 02/14/2024 1:45 PM EST - 02/14/2024 2:10 PM EST Surgery [facility] [address] [place] [address] Manuel Bashir DO [address] [place] [address] L-/S-SPINE PARAVERTEBRAL FACET INJ, 1 LEVEL 03/11/2024 7:35 AM EST Hospital Encounter [facility] [address] [place] [address] Manuel Bashir DO [address] [place] [address] 03/11/2024 7:35 AM EST - 03/11/2024 8:25 AM EST Surgery [facility] [address] [place] [address] Mckay Manuel Nieto, DO [address] [place] [address] DESTROY LUMBAR SACRAL NERVE IMAGING SINGLE 04/14/2024 3:20 PM EST Telemedicine Hepatology, [facility] [address] [phone] Katty Hernandes, DO [address] [place] [address] Scheduled Procedures Name Priority Associated Diagnoses Date/Ti [...] Advance Directives occurred with: Patient Care Teams Tool Inspector Relationship Specialty Start Date End Date Tami Upton MD [address] [place] [phone] PCP - General Family Medicine 11/12/23 documented as of this encounter
[2024-02-09] MEDS ORDERED: GABAPENTIN 600 MG TAB PO SCH (15:45)
[2024-02-11] MEDS ORDERED: GABAPENTIN 600 MG TAB PO SCH (03:45)
== END 2024-02-09 13:33 | disposition home or self-care (01) | DRG 897 ==
LOC: ED 11:13 → SUATTDRO 15:41 → 2E 15:41

== ENCOUNTER 2024-04-21 16:05 | Observation (INO) ==
[2024-04-21] MEDS ORDERED: OCTREOTIDE ACETATE 50 MCG in SYRINGE 9.5 ML IV STA (16:15)
[2024-04-21 16:32] LABS: Basophils # (auto) 0.06 K/uL (0.00-0.20); Basophils % (auto) 0.9 %; Eosinophils # (auto) 0.07 K/uL (0.00-0.50); Eosinophils % (auto) 1.1 %; Hematocrit (blood only) 37.7 % (42.0-52.0); Hemoglobin 13.1 g/dl (14.0-18.0); Immature Granulocytes # (auto) 0.03 K/uL (0.01-0.20); Immature Granulocytes % (auto) 0.5 %; Lymphocytes # (auto) 1.71 K/uL (1.20-3.40); Lymphocytes % (auto) 26.5 %; Mean Corpuscular Hemoglobin 32.1 pg (25.0-34.0); Mean Corpuscular Hgb Conc 34.7 g/dL (32.0-36.0); Mean Corpuscular Volume 92.4 fL (80.0-100.0); Mean Platelet Volume 11.3 fL (9.4-12.4); Monocytes # (auto) 0.44 K/uL (0.11-0.59); Monocytes % (auto) 6.8 %; Neutrophils # (auto) 4.15 K/uL (1.40-6.50); Neutrophils % (auto) 64.2 %; Platelet Count 40 K/uL (130-400); RDW Coefficient of Variation 17.3 % (11.5-14.5); RDW Standard Deviation 58.4 fL (36.4-46.3); Red Blood Count 4.08 M/uL (4.70-6.10); White Blood Count 6.46 K/ul (4.8-10.8)
[2024-04-21 16:37] LABS: INR 1.7 (0.9-1.1); Partial Thromboplastin Ratio 1.2; Partial Thromboplastin Time 31 Seconds (21-31); Prothrombin Time 17.9 Seconds (9.0-12.0)
[2024-04-21] MEDS: PANTOprazole 80 MG in DEXTROSE 5% 100 ML IV ONE (16:43)
[2024-04-21] MEDS: STAT IV/IM STA (16:46)
[2024-04-21] MEDS: PANTOPRAZOLE BOLUS/DRIP IV STA (16:47)
[2024-04-21 16:55] LABS: Albumin Level 4.4 gm/dl (3.4-5.0); Bilirubin,Total 5.1 mg/dl (0.2-1.0); Calcium 9.2 mg/dl (8.6-10.3); Potassium 3.4 mmol/L (3.5-5.1)
[2024-04-21] MEDS: OCTREOTIDE ACETATE 500 MCG in SODIUM CHLORIDE 0.9% 100 ML IV SCH (16:55)
[2024-04-21] MEDS: OCTREOTIDE BOLUS FROM BAG IV ONE (16:56)
[2024-04-21] MEDS: SODIUM CHLORIDE 0.9% 1,000 ML IV ONE (16:58)
[2024-04-21] MEDS: PANTOprazole 40 MG in DEXTROSE 5% MINI-B 100 ML IV SCH (17:00)
[2024-04-21 17:01] LABS: BUN Creatinine Ratio 26.1 (10-20); Creatinine Clr Calc Pharmacy 244.3 ml/min; Total Protein 7.8 gm/dl (6.0-8.3)
[2024-04-21] MEDS: ONDANSETRON INJ 2 MG/ML 2 ML VIAL IV STA (17:10)
[2024-04-21] MEDS: cefTRIAXone SODIUM 1,000 MG/50 ML BAG IV STA (17:24)
[2024-04-21 17:29] LABS: iSTAT Creatinine 0.6 mg/dl (0.6-1.3); iSTAT Hemoglobin 13.6 g/dl (14.0-18.0); iSTAT Ionized Calcium 1.04 mmol/l (1.12-1.32); iSTAT Potassium 3.4 mmol/L (3.3-5.0)
[2024-04-21] MEDS: LORazepam 2 MG/1 ML VIAL IV STA (18:02)
--- NOTE | 2024-04-21 18:28 | History & Physical Report ---
Date of Service April 21, 2024 Assessment & Plan (1) Gastrointestinal hemorrhage with hematemesis: (2) Alcoholic gastritis with bleeding: (3) Portal hypertensive gastropathy: (4) Esophageal ulceration: (5) Alcohol withdrawal: (6) Alcohol intoxication: (7) Alcoholic cirrhosis: (8) Thrombocytopenia: (9) Alcohol use disorder, severe, dependence: (10) OCD (obsessive compulsive disorder): (11) Bipolar 1 disorder: (12) Tobacco abuse: Plan Patient presents with acute onset of hematemesis in the setting of excessive alcohol use and known portal gastropathy, coagulopathy, thrombocytopenia, esophageal ulcerations and alcoholic cirrhosis. Patient's hemoglobin is stable, but he is extremely high risk for severe complications of ongoing bleeding. Also severe risk for severe alcohol withdrawal. Requires hospital level care and interventions. Suspect patient has acute hematemesis from alcohol gastritis and portal gastropathy and esophageal ulcerations. Recent EGD did not reveal significant varices. Admit to the hospital and monitored unit Continue IV Protonix Continue IV octreotide Monitor hemoglobin Obtain blood consent should transfusion be required Consult GI, Dr. Barnes has been notified in the ED and is aware of the patient. Can contact emergently if patient has evidence of hemorrhaging. Give 1 dose of IV Ativan now for withdrawal, this may also help some of his nausea Alcohol withdrawal protocol with gabapentin and as needed lorazepam Vitamin replacement Continue other home medications History of Present Illness Chief Complaint: Hematemesis Primary Care Provider: Tami Upton MD Patient is a 33-year-old gentleman with known alcohol cirrhosis and alcohol misuse. Presented to the emergency room with acute onset of hematemesis and melanotic stools. Patient had witnessed hematemesis here in the ED. Laboratory studies revealed findings consistent with his known hepatic cirrhosis. Hemoglobin was essentially at his baseline. GI was contacted in the ED and recommended starting octreotide drip along with IV Protonix. He was referred to our service for further evaluation. Patient states that since I had seen him in February he was doing fairly well but fell off the wagon the last week or 2. He reports drinking 1-2 fifths of vodka a day. He thinks his last drink was a day or 2, however when confronted with the fact that his alcohol level was still greater than 100 he admits that the last 24 hours so having somewhat of a blur and he may have continued to drink. He denies any fever or chills. Does admit to the melena and hematemesis. Has some abdominal discomfort. No cough or cold symptoms. No new issues with his bladder. No swelling in his hands arms legs or feet. Allergies Allergy/AdvReac Type Severity Reaction Status Date / Time No Known Allergies Allergy Verified 12/03/23 21:31 Home Medications Medication Instructions Recorded Confirmed Type multivitamin 1 tab PO DAILY 10/14/23 04/21/24 History nadolol 40 mg tablet 40 mg PO QAM 10/14/23 04/21/24 History paliperidone 9 mg tablet,extended 9 mg PO QAM 10/14/23 04/21/24 History release 24 hr buspirone 5 mg tablet 5 mg PO TID PRN Anxiety 04/21/24 04/21/24 History furosemide 40 mg tablet 40 mg PO BID 04/21/24 04/21/24 History gabapentin 300 mg capsule 300 mg PO UD 04/21/24 04/21/24 History pantoprazole 40 mg tablet,delayed 40 mg PO BID 04/21/24 04/21/24 History release spironolactone 25 mg tablet 25 mg PO QAM 04/21/24 04/21/24 History Past Med/Surg History Problem List (Updated 04/21/24 @ 18:23 by Osman Hadley DO) Alcoholic gastritis with bleeding Esophageal ulceration Portal hypertensive gastropathy Gastrointestinal hemorrhage with hematemesis Alcohol withdrawal (Acute) Cirrhosis Coffee ground emesis (Acute) Alcohol abuse (Acute) Alcohol withdrawal syndrome (Acute) Alcohol use disorder, severe, dependence (Acute) Alcohol intoxication (Acute) GIB (gastrointestinal bleeding) (Acute) Alcoholic hepatitis Acute alcohol abuse (Acute) Pancytopenia (Acute) Medical History HTN (hypertension) Thrombocytopenia OCD (obsessive compulsive disorder) Insomnia Bipolar 1 disorder Tobacco abuse Alcohol dependence Compression fracture of T12 vertebra Compression fracture of L1 lumbar vertebra Hepatosplenomegaly Mixed hyperlipidemia Alcohol abuse Surgical History Hx of tonsillectomy Hx of colonoscopy 2015, WNL, internal hemorrhoids Social History Smoking Status: Current every day smoker Tobacco Type: Cigarettes Cigarettes Per Day: 10; Do You Dip or Chew Tobacco: No; Hx Alcohol Use: Yes Alcohol type: hard liquor Hx Substance Use: Yes Last Used Substance: Unknown Substance Use Type Other:: medical marijuana Preferred Language: Serbian Communication Ability: Effective Oncology Navigator Required: No Beliefs That Will Affect Care: None Current Living Situation: Significant Other Feels Safe at Home: Yes Assistive Devices: Cane Review of Systems Review of Systems: Pertinent positive and negative review of systems as mentioned in the HPI Physical Exam Physical Exam: Constitutional: Alert, ill in appearance, moderate distress, holding emesis bag HEENT: Mucous membranes moist. Sclera clear Neck: Soft, no adenopathy Lungs: Decreased breath sounds, no wheezes rales or rhonchi CV: S1-S2, regular, slightly tachycardic Abdomen: Soft, mild epigastric tenderness, nondistended, no guarding, no rigidity Extremities: No significant edema Musculoskeletal: No significant joint tenderness Neuro: No focal deficits Psych: Cooperative, normal mood Results & Data Results & Data Vital Signs (Past 12 Hours) Vital Signs Temp Pulse Pulse Resp BP BP Pulse Ox 04/21/24 17:00 92 H 20 146/97 H 97 04/21/24 16:26 104 H 04/21/24 16:10 36.9 C 101 H 12 171/99 H 98 O2 Del Method 04/21/24 17:00 Room Air 04/21/24 16:26 04/21/24 16:10 Room Air Diagnostic Findings Reviewed imaging, laboratory and diagnostic studies. Pertinent findings as below. WBC 6.4 Hemoglobin 13.1, baseline Platelets 40, baseline INR 1.7, baseline Potassium 3.4 Creatinine 0.46 BUN 12 Total bilirubin 5.1, essentially baseline Direct bilirubin 2.0 AST 309, baseline ALT 124 Ethyl alcohol 101.0 Reviewed EGD report from October 2023, severe portal gastropathy, esophageal ulceration, no obvious esophageal varices were noted. Reviewed EGD report from August 2023, mentions only mild esophageal varices Code Status & VTE Plan VTE Prophylaxis Plan VTE Prophylaxis will be ordered: Yes
--- NOTE | 2024-04-21 19:04 | Emergency Department Note ---
History of Present Illness General Chief complaint: GI Bleed Time Seen by Provider: 04/21/24 16:09 History of Present Illness Provider Complaint: + gross hematemesis and + melena Onset (ago): 1 day(s) Relieved By: + none Exacerbated By: + vomiting Context: + history of GI bleed, + alcohol abuse (Patient states that he has been trying to detox and has not had any alcohol for the last 2 days.) and + known esophageal varices; no anticoagulant use Associated symptoms: + nausea and + vomiting; no abdominal pain, no fever, no chills or no shortness of breath Home Medications Medication Instructions Recorded Confirmed Type nadolol 40 mg tablet 40 mg PO QAM 10/14/23 04/21/24 History paliperidone 9 mg tablet,extended 9 mg PO QAM 10/14/23 04/21/24 History release 24 hr buspirone 5 mg tablet 5 mg PO TID PRN Anxiety 04/21/24 04/21/24 History furosemide 40 mg tablet 40 mg PO BID 04/21/24 04/21/24 History gabapentin 300 mg capsule 300 mg PO UD 04/21/24 04/21/24 History pantoprazole 40 mg tablet,delayed 40 mg PO BID 04/21/24 04/21/24 History release spironolactone 25 mg tablet 25 mg PO QAM 04/21/24 04/21/24 History Allergies Allergy/AdvReac Type Severity Reaction Status Date / Time No Known Allergies Allergy Verified 04/21/24 18:45 Past Med/Surg History Problem List (Updated 04/21/24 @ 19:15 by Jaren Carballo MD) Esophageal varices (Acute) Upper gastrointestinal hemorrhage (Acute) Alcoholic gastritis with bleeding Esophageal ulceration Portal hypertensive gastropathy Gastrointestinal hemorrhage with hematemesis Alcohol withdrawal (Acute) Cirrhosis Coffee ground emesis (Acute) Alcohol abuse (Acute) Alcohol withdrawal syndrome (Acute) Alcohol use disorder, severe, dependence (Acute) Alcohol intoxication (Acute) GIB (gastrointestinal bleeding) (Acute) Alcoholic hepatitis Acute alcohol abuse (Acute) Pancytopenia (Acute) Medical History Alcoholic cirrhosis HTN (hypertension) Thrombocytopenia OCD (obsessive compulsive disorder) Insomnia Bipolar 1 disorder Tobacco abuse Alcohol dependence Compression fracture of T12 vertebra Compression fracture of L1 lumbar vertebra Hepatosplenomegaly Mixed hyperlipidemia Alcohol abuse Surgical History Hx of tonsillectomy Hx of colonoscopy 2015, WNL, internal hemorrhoids Social History Smoking Status: Current every day smoker Tobacco Type: Cigarettes Cigarettes Per Day: 10; Do You Dip or Chew Tobacco: No; Hx Alcohol Use: Yes Alcohol type: hard liquor Hx Substance Use: Yes Last Used Substance: Unknown Substance Use Type Other:: medical marijuana Preferred Language: Divehi Communication Ability: Effective Worm Raiser Required: No Beliefs That Will Affect Care: None Current Living Situation: Significant Other Feels Safe at Home: Yes Assistive Devices: Cane Physical Exam 2 Vital Signs: Vital Signs - 24 hr 04/21/24 16:10 04/21/24 16:26 04/21/24 17:00 Temperature 36.9 C Temperature Source Oral Pulse Rate 101 H 104 H Pulse Rate [Finger ] 92 H Respiratory Rate 12 20 Blood Pressure 171/99 H Blood Pressure [Ri ght Arm] 146/97 H Blood Pressure Keila n 123 Blood Pressure Keila n [Right Arm] 113 Pulse Oximetry 98 97 Oxygen Delivery Me thod Room Air Room Air Sepsis Recent Feve r Within 48 Hours No Sepsis New/Unexpla ined Change in Men janene Status No Sepsis Action Take n by Nursing No Action Required Physical Exam: Physical Exam GENERAL: Patient has an emesis bag that is filled with blood. HENT: Exam performed. -Head: Normocephalic and atraumatic. -Right Ear: External ear normal. No mastoid erythema -Left Ear: External ear normal. No mastoid erythema -Mouth/Throat: The oropharynx is clear and moist. No trismus in the jaw. No dental abscesses or uvula swelling. No oropharyngeal exudate or tonsillar abscesses. EYES: Conjunctivae and EOM are normal.Right eye exhibits no discharge. Left eye exhibits no discharge. Mild scleral icterus. NECK: Normal range of motion. Neck supple. No JVD present. No tracheal deviation and normal range of motion present. CV: Tachycardic rate, regular rhythm, normal heart sounds and intact distal pulses. There is no peripheral edema. Palpable radial pulses bue. PULM/CHEST: Effort normal and breath sounds normal. No respiratory distress. No stridor. no wheezes.no rales. -Chest Wall: no tenderness to palpation ABD: The abdomen is soft. Bowel sounds are normal. no distension. No mass is present. There is no tenderness. There is no rebound, no guarding, no Valdes's sign and no tenderness at McBurney's point. Rovsig negative MUSC/SKEL: Normal range of motion. There is no peripheral edema, tenderness or deformity. NEURO: Motor and sensation grossly intact. SKIN: Skin is warm and dry. not diaphoretic. Mild jaundice. PSYCH: normal mood and affect. Behavior is normal. Judgment and thought content normal. Course Course 160: The patient was evaluated in room B10. A complete history and physical exam was performed Cardiac monitoring: An order was placed for continuous cardiac monitoring. The monitor shows a rate of 100 with sinus rhythm interpreted by me External medical records reviewed. Patient has a history of esophageal varices, alcohol abuse, and thrombocytopenia. In August 2023 the patient had grade 1 varices in the lower third of the esophagus on EGD. Patient had a repeat endoscopy October 2023 which showed no varices. Given the patient's marleny hematemesis, IV fluids, IV Protonix bolus and drip, as well as IV octreotide bolus and drip ordered for the patient. 1720: Vital signs stable. Labs show a stable hemoglobin of 13.1. White blood cell count 6.46. INR 1.7. Total bilirubin 5.1 direct bilirubin 2 AST 309 ALT 124. Alcohol is 101 although the patient states his last drink was 2 days ago. Lipase 129. Discussed the case with on-call GI Dr. Millan who agrees to be on consult and for the patient to be admitted to the hospitalist team. He recommends Rocephin 1 g ordered for the patient as well as keeping the patient n.p.o. Will plan to admit the patient to the [facility] hospitalist team. Administered Medications Pantoprazole Sodium 40 mg/ (Dextrose) 100 mls @ 20 mls/hr IV Q5H PUJA Stop: 05/21/24 16:44 Last Admin: 04/21/24 17:00 Dose: 8 mg/hr, 20 mls/hr Documented By: MARK ANTHONY Octreotide Acetate 500 mcg/ (Sodium Chloride) 100.5 mls @ 10.05 mls/hr IV .Q10H PUJA Stop: 05/21/24 16:14 Last Admin: 04/21/24 16:55 Dose: 50 mcg/hr, 10.1 mls/hr Documented By: MARK ANTHONY Discontinued Medications Sodium Chloride (Nss) 1,000 mls @ 999 mls/hr IV .Q1H1M ONE Stop: 04/21/24 17:15 Last Infusion: 04/21/24 18:01 Dose: Infused Documented By: MARK ANTHONY Admin: 04/21/24 16:58 Dose: 999 mls/hr Documented By: MARK ANTHONY Pantoprazole Sodium 80 mg/ (Dextrose) 120 mls @ 480 mls/hr IV NOW ONE Stop: 04/21/24 16:29 Last Infusion: 04/21/24 17:06 Dose: Infused Documented By: MARK ANTHONY Admin: 04/21/24 16:43 Dose: 480 mls/hr Documented By: MARK ANTHONY Ceftriaxone Sodium (Rocephin) 1,000 mg in 50 mls @ 100 mls/hr IV NOW STA Stop: 04/21/24 17:50 Last Infusion: 04/21/24 18:01 Dose: Infused Documented By: MARK ANTHONY Admin: 04/21/24 17:24 Dose: 100 mls/hr Documented By: MARK ANTHONY Lorazepam (Lorazepam 2 Mg/1 Ml Vial) 2 mg IV NOW STA Stop: 04/21/24 17:54 Last Admin: 04/21/24 18:02 Dose: 2 mg Documented By: ALDO Miscellaneous (Stat Iv/Im) 1 each N/A NOW STA Stop: 04/21/24 16:16 Last Admin: 04/21/24 16:46 Dose: Not Given Documented By: MARK ANTHONY Octreotide Acetate (Octreotide Bolus From Bag) 50 mcg IV ONE ONE Stop: 04/21/24 17:01 Last Admin: 04/21/24 16:56 Dose: 50 mcg Documented By: MARK ANTHONY Ondansetron HCl (Ondansetron Inj 2 Mg/Ml 2 Ml Vial) 4 mg IV NOW STA Stop: 04/21/24 17:04 Last Admin: 04/21/24 17:10 Dose: 4 mg Documented By: MARK ANTHONY Pantoprazole Sodium (Pantoprazole Bolus/Drip) 1 each IV NOW STA Stop: 04/21/24 16:16 Last Admin: 04/21/24 16:47 Dose: Not Given Documented By: MARK ANTHONY Medical Decision Making Laboratory Data Attestation: I reviewed the patient's lab results. 04/21/24 16:13 04/21/24 16:13 Lab Results 04/21/24 04/21/24 Range/Units 16:13 16:20 WBC 6.46 (4.8-10.8) K/ul RBC 4.08 L (4.70-6.10) M/uL Hgb 13.1 L (14.0-18.0) g/dl POC Hgb 13.6 L (14.0-18.0) g/dl Hct 37.7 L (42.0-52.0) % POC Hct 40 L (42-52) % MCV 92.4 (80.0-100.0) fL MCH 32.1 (25.0-34.0) pg MCHC 34.7 (32.0-36.0) g/dL RDW Std Deviation 58.4 H (36.4-46.3) fL RDW Coeff of Joe 17.3 H (11.5-14.5) % Plt Count 40 L (130-400) K/uL MPV 11.3 (9.4-12.4) fL Immature Gran % (Auto) 0.5 % Neut % (Auto) 64.2 % Lymph % (Auto) 26.5 % [place] % (Auto) 6.8 % Eos % (Auto) 1.1 % Baso % (Auto) 0.9 % Neut # (Auto) 4.15 (1.40-6.50) K/uL Lymph # (Auto) 1.71 (1.20-3.40) K/uL [place] # (Auto) 0.44 (0.11-0.59) K/uL Eos # (Auto) 0.07 (0.00-0.50) K/uL Baso # (Auto) 0.06 (0.00-0.20) K/uL Immature Gran # (Auto) 0.03 (0.01-0.20) K/uL PT 17.9 H (9.0-12.0) Seconds INR 1.7 H (0.9-1.1) APTT 31 (21-31) Seconds PTT Ratio 1.2 POC Sodium 139 (135-144) mmol/L Sodium 139 (136-145) mmol/L POC Potassium 3.4 (3.3-5.0) mmol/L Potassium 3.4 L (3.5-5.1) mmol/L POC Chloride 104 (101-112) mmol/L Chloride 101 (98-107) mmol/L Carbon Dioxide 23 (21-32) mmol/L POC Total CO2 21 L (24-31) mmol/L Anion Gap 15 H (3-11) POC Anion Gap 19.0 (16-25) mmol/L POC BUN 10 (7-18) mg/dl BUN 12 (6-23) mg/dl Creatinine 0.46 L (0.6-1.4) mg/dl POC Creatinine 0.6 (0.6-1.3) mg/dl Est Cr Clr Drug Dosing 244.3 ml/min eGFR 139.89 BUN/Creatinine Ratio 26.1 H (10-20) Glucose 112 H (70-99(Fasting)) mg/dl POC Glucose (other) 115 H (70-99) mg/dl Calcium 9.2 (8.6-10.3) mg/dl POC Ioniz Calcium William 1.04 L (1.12-1.32) mmol/l Total Bilirubin 5.1 H (0.2-1.0) mg/dl Direct Bilirubin 2.0 H (0-0.2) mg/dl AST 309 H (13-39) U/L ALT 124 H (7-52) U/L Alkaline Phosphatase 107 H (34-104) U/L Total Protein 7.8 (6.0-8.3) gm/dl Albumin 4.4 (3.4-5.0) gm/dl Lipase 129 H (11-82) U/L Ethyl Alcohol mg/dL 101.0 H (<10.0) mg/dl Blood Type A Positive Antibody Screen NEGATIVE ECG Data Attestation: I personally reviewed and interpreted this ECG as follows: Rate (beats per minute): 97 Rhythm: normal sinus Findings: + prolonged QT; no ST depression or no ST elevation [facility] Narrative 1609: The patient was evaluated in room B10. A complete history and physical exam was performed Cardiac monitoring: An order was placed for continuous cardiac monitoring. The monitor shows a rate of 100 with sinus rhythm interpreted by me External medical records reviewed. Patient has a history of esophageal varices, alcohol abuse, and thrombocytopenia. In August 2023 the patient had grade 1 varices in the lower third of the esophagus on EGD. Patient had a repeat endoscopy October 2023 which showed no varices. Given the patient's marleny hematemesis, IV fluids, IV Protonix bolus and drip, as well as IV octreotide bolus and drip ordered for the patient. 1720: Vital signs stable. Labs show a stable hemoglobin of 13.1. White blood cell count 6.46. INR 1.7. Total bilirubin 5.1 direct bilirubin 2 AST 309 ALT 124. Alcohol is 101 although the patient states his last drink was 2 days ago. Lipase 129. Discussed the case with on-call GI Dr. Millan who agrees to be on consult and for the patient to be admitted to the hospitalist team. He recommends Rocephin 1 g ordered for the patient as well as keeping the patient n.p.o. Will plan to admit the patient to the [facility] hospitalist team. Impression & Plan Upper gastrointestinal hemorrhage, Esophageal varices, Alcohol abuse Critical Care Time Critical Care Time: Yes Total Critical Care Time: 53 I have personally spent greater than 53 minutes of critical care time in the direct management of this patient. This includes bedside care, interpretation of diagnostic studies, and testing, discussion with consultants, patient, and family members, and other required patient management activities. This 53 minutes is in excess of all separately billable procedures. Discharge Plan Visit Data Chief Complaint: GI Bleed ED Provider: Jaren Carballo Discharge Problem: Upper gastrointestinal hemorrhage, Esophageal varices, Alcohol abuse Patient Disposition: Admitted As Inpatient Forms Stand Alone Forms: [facility] Prescriptions Prescriptions: No Action nadolol 40 mg tablet 40 mg PO QAM paliperidone 9 mg tablet extended release 24 hr 9 mg PO QAM furosemide 40 mg tablet 40 mg PO BID spironolactone 25 mg tablet 25 mg PO QAM gabapentin 300 mg capsule 300 mg PO UD Rx Instructions: take 1 capsule in the AM and take 2 capsules in the PM buspirone 5 mg tablet 5 mg PO TID PRN (Reason: Anxiety) pantoprazole 40 mg tablet,delayed release (DR/EC) 40 mg PO BID Referrals Referrals: Tami Upton MD [Primary Care Provider] -
[2024-04-21 19:14] LABS: Magnesium 1.6 mg/dl (1.7-2.4)
[2024-04-21] MEDS ORDERED: traZODone HCL 50 MG TAB PO PRN (19:56)
[2024-04-21] MEDS ORDERED: Ativan PO Alcohol Withdrawal--Active Protocol PO PRN (19:56)
[2024-04-21] MEDS ORDERED: GABAPENTIN 1200MG ALCOHOL WITHDRAWAL LOAD PO STA (19:56)
[2024-04-21] MEDS ORDERED: Ativan IV Alcohol Withdrawal--Active Protocol IV PRN (19:56)
[2024-04-21] MEDS ORDERED: LORazepam 2 MG/1 ML VIAL IV PRN ×2 (19:56)
[2024-04-21] MEDS ORDERED: ONDANSETRON INJ 2 MG/ML 2 ML VIAL IV PRN (19:56)
[2024-04-21] MEDS: FOLIC ACID 1 MG in SYRINGE 9.8 ML IV SCH (20:59)
[2024-04-21] MEDS: THIAMINE HCL 100 MG in SYRINGE 9 ML IV SCH (21:00)
[2024-04-21] MEDS: GABAPENTIN 600 MG TAB PO ONE (21:00)
[2024-04-21] MEDS: busPIRone 5 MG TAB PO SCH (21:01)
[2024-04-21] MEDS: LACTATED RINGER'S 1,000 ML IV SCH (21:22)
[2024-04-21] MEDS: POTASSIUM CHLORIDE / WTR 10 MEQ/100 ML PLCT IV SCH (21:22)
[2024-04-21] MEDS: LORazepam 2 MG/1 ML VIAL IV PRN (22:55)
--- OUTSIDE RECORDS SUMMARY | 2024-04-22 02:08 | External Medical Summary | Summary of Care ---
Author Name Unknown Organization [facility] Address [address] [place] [address] Phone [phone] Care Team Providers Care Truck Farmer Name Role Phone Tami Upton MD Primary Care Provi elena Reason for Visit * Reason Onset Date Comments Test Results 12/25/2023 Awaiting records . 12/29 Encounter Details Date Type Department Care Team ([facility] Contact Info) Description 12/25/2023 Telephone Family Practice [address] [phone] Tami Upton MD [address] [place] [phone] Test Results (Awaiting records. 12/29) Allergies No known active allergiesdocumented as of this encounter (statuses as of 03/25/2024) Medications Folic Acid 1 MG Oral Tablet Take 1 Tablet by mouth in the morning. 30 Tablet 2 4 Active Melatonin 10 MG Oral Tablet Chewable Take by mouth. Activ e Celecoxib 200 MG Oral Capsule (CeleBREX) Take 1 Capsule by mouth in the morning. 20 Capsule 2 4 Active Additional Information Patient taking differently:200 mg Oral Daily(AM),As needed, Reported on 02/18/2024 Paliperidone ER 9 MG Oral Tablet Extended Release 24 Hour (Invega)Indicat ions:Other insomnia,Bipola r affective disorder, current episode mixed, current episode severity unspecified (HCC) Take 1 Tablet by mouth in the morning. 90 Tablet 3 4 Active Nadolol 40 MG Oral Tablet (Corgard) Take 1 Tablet by mouth in the morning. 90 Tablet 1 4 Active Vitamin B Complex Oral Tablet Take 1 Tablet by mouth in the morning. Active Magnesium Chloride 64 MG Oral Tablet Delayed Release (Mag-64) Take 1 Tablet by mouth in the morning and 1 Tablet before bedtime. Active Sucralfate 1 GM/10ML Oral Suspension (Carafate) Take 10 mL by mouth in the morning and 10 mL at noon and 10 mL in the evening and 10 mL before bedtime. 4 024 Discontin ued(Patie nt preferenc e/discont inuation) Gabapentin 300 MG Oral Capsule (Neurontin) Take 1 Capsule by mouth in the morning and 1 Capsule before bedtime. 4 024 Discontin ued(Refil l) Omeprazole 20 MG Oral Capsule Delayed Release (PriLOSEC) Take 1 Capsule by mouth in the morning. 024 Discontin ued(Medic ation List Clean Up) Furosemide 20 MG Oral Tablet (Lasix)Indicati ons:Bilateral leg edema Take 1 Tablet by mouth daily as needed (Leg swelling). 30 Tablet 2 4 024 Discontin ued(Refil l) Pantoprazole Sodium 40 MG Oral Tablet Delayed Release (Protonix) Take 1 Tablet by mouth in the morning and 1 Tablet before bedtime. 4 024 Discontin ued(Refil l) chlordiazePOXID E HCl 5 MG Oral Capsule (Librium) Take 1 Capsule by mouth 3 times a day as needed for Anxiety. Take 10mg Breakfast, lunch and dinner on 10/16 Take 5 mg breakfast and dinner on 10/17 024 Discontin ued(Patie nt preferenc e/discont inuation) documented as of this encounter (statuses as of 03/25/2024) Active Problems Problem Noted Date Diagnosed Date [...] as of this encounter (statuses as of 03/25/2024) Resolved Problems Problem Noted Date Diagnosed Date [...] as of this encounter (statuses as of 03/25/2024) Immunizations Name Administration Dates Next Due Pneumococcal Conjugate Vaccine, 20-valent (Prevn ar20) 01/31/2023 Seasonal Influenza, PF, 6 M & above, IM , (FluLaval or Fluzone) 11/24/2022 TDAP (age 10 and older)(Boostrix) 01/31/2023 TDAP, Age 7 and older, IM (Adacel) 08/08/2011 documented as of this encounter Social History Tobacco Use Types Packs/Day Years Used Date Smoking Tobacco: Every Day Cigarettes 0.5 21.1 Started: 2003 Smokeless Tobacco: Never Alcohol Use [...] 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 Please review. Thank you. * Telephone Encounter - Amber Bains LPN - 01/09/2024 2:52 PM EST Unable to locate STD testing from [facility]. Spoke with Irais at [facility] Records-she will be faxing records to [facility]. * Telephone Encounter - Tami Upton MD - 01/08/2024 4:55 PM EST I see recent discharge records but not sexually transmitted disease testing results. Where are you seeing them? * Telephone Encounter - Joselyn Valdes CCMA - 01/08/2024 11:55 AM EST Appears outside records have been obtained please review. * Telephone Encounter - Paola Cifuentes MED ASSIST - 12/31/2023 2:59 PM EDT Called for records. * Telephone Encounter - Tami Upton MD - 12/25/2023 3:26 PM EDT I do not have any STD records. When were they done? Can we reach out to [facility] for results? * Telephone Encounter - Joselyn Valdes CCMA - 12/25/2023 2:44 PM EDT Please advise below. * Telephone Encounter - Fabi Reyes OSA - 12/25/2023 1:52 PM EDT Who is Requesting Test Results: Patient Primary Care Provider : Tami Upton MD Tests Results Requested : STD testing Date of Test : about a month ago Location of Test: [facility] Ordering Provider: He was advised to contact them, and they said to ask his PCP, saying she was copied on the results. Patient has been made aware that the turnaround time for test results are typically as follows: Laboratory results = within 2-3 days ([facility]), 3-5 days (Non-[facility], ie. [facility]) Urine Cultures = within 2-3 days depending on growth within the culture Pathology results (biopsy results/PAP) = 1-2 weeks Radiology results = about 1 week Cologuard results = within 2 weeks from the shipment date COVID testing = about 24 hours documented in this encounter Plan of Treatment Upcoming Encounters Date Type Department Care Team (Late st Contact Info) Description 04/08/2024 3:20 PM EST Office Visit [facility] [address] [place] [phone] Tami Upton MD [address] [place] [phone] 04/14/2024 3:20 PM EST Telemedicine Hepatology, [address] [phone] Katty Hernandes DO [address] [place] [phone] Scheduled Procedures Name Priority Associated Diagnoses Date/Ti me ESOPHAGOGASTRODUODENOSCOPY ( EGD), FLEXIBLE, TRANSORAL, ENDOSCOPIC ULTRASOUND Recall Alcohol abuse Hepatic fibrosis ESOPHAGOGASTRODUODENOSCOPY ( EGD), FLEXIBLE, TRANSORAL, DIAGNOSTIC Recall Alcohol abuse Hepatic fibrosis Health Maintenance Due Date Last Done Comments Depression Screening 08/05/2015 08/04/2014 COVID-19 Vaccine ( season) 2023 Influenza Vaccine (FLU shot) (#1) 2023 11/24/2022 Diabetes Screening 02/12/2027 02/13/2024, 1 , 09/17/2023, Additional history exists DTap/Tdap Vaccines (8 - Td or Tdap) 01/31/2033 01/31/2023, 08/08/2011, 07/08/2003, Additional history exists Hepatitis B Vaccine Completed 10/11/1998, 03/21/1998, 01/18/1998 Pneumococcal Vaccine: Pediatrics (0 to 5 Years) and At-Risk Patients (6 to 18 Years and 19+ Years) Completed 01/31/2023 HPV (Gardasil) Vaccine Aged [...] Advance Directives occurred with: Patient Care Teams Truck Farmer Relationship Specialty Start Date End Date Tami Upton MD [address] [place] [phone] PCP - General Family Medicine 03/06/24 documented as of this encounter
--- OUTSIDE RECORDS SUMMARY | 2024-04-22 02:08 | External Medical Summary | Summary of Care ---
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 States he will have a better idea then and will call the office at that time. * Telephone Encounter - Tami Upton MD - 12/29/2023 2:43 PM EDT Noted. Does he need assistance with anything? Any medication adjustments or assistance getting connected with support? * Telephone Encounter - Fabi Reyes OSA - 12/25/2023 1:50 PM EDT Patient called to advise that he spoke with Hepatology, Dr Hernandes, and was advised to tell Dr Upton that he recently relapsed. He also said that Social Security Disability would be reaching out to her. documented in this encounter Plan of Treatment Upcoming Encounters Date Type Department Care Team (Late st Contact Info) Description 04/08/2024 3:20 PM EST Office Visit [address] [phone] Tami Upton MD [address] [place] [phone] 04/14/2024 3:20 PM EST Telemedicine Hepatology, Adrianne EppsMiquelwn [address] [place], [place] [address] [place] [phone] Greta Katty Alice, DO [address] [place] [address] Scheduled Procedures Name Priority Associated Diagnoses Date/Ti [...] Advance Directives occurred with: Patient Care Teams Squirt Machine Operator Relationship Specialty Start Date End Date Tami Upton MD [address] [place] [phone] PCP - General Family Medicine 03/06/24 documented as of this encounter
--- OUTSIDE RECORDS SUMMARY | 2024-04-22 02:08 | External Medical Summary | Summary of Care ---
Author Name Unknown Organization [facility] Address [address] [place] [address] Phone [phone] Care Team Providers Care Dye Machine Tender Name Role Phone Tami Upton MD Primary Care Provi elena Reason for Visit * Reason Comments Follow Up Encounter Details Date Type Department Care Team (Late st Contact Info) Description 04/14/2024 3:20 PM EST Telemedicine Hepatology, [address] [phone] Katty Hernandes DO [address] [place] [address] Alcoholic cirrhosis of liver without ascites (HCC)* Allergies No known active allergiesdocumented as of this encounter (statuses as of 04/15/2024) Medications Folic Acid 1 MG Oral Tablet Take 1 Tablet by mouth in the morning. 30 Tablet 2 4 Active Additional Information Patient not taking.Reported on 04/14/2024 Melatonin 10 MG Oral Tablet Chewable Take by mouth. Activ e Celecoxib 200 MG Oral Capsule (CeleBREX) Take 1 Capsule by mouth in the morning. 20 Capsule 2 4 Active Additional Information Patient not taking.Reported on 04/14/2024 Paliperidone ER 9 MG Oral Tablet Extended [...] morning and 1 Tablet before bedtime. Active Pantoprazole Sodium 40 MG Oral Tablet Delayed Release (Protonix)Indica tions:Upper GI bleed Take 1 Tablet by mouth in the morning and 1 Tablet before bedtime. 60 Tablet 5 4 Active Furosemide 20 MG Oral Tablet (Lasix)Indicatio ns:Bilateral leg edema Take 1 Tablet by mouth daily as needed (Leg swelling). 30 Tablet 2 4 Active Acetaminophen 325 MG Oral Capsule Take 500 mg by mouth every evening. One to two tabs daily. 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 30 Tablet 11 4 Active Furosemide 40 MG Oral Tablet (Lasix) Take 1 Tablet by mouth in the morning and 1 Tablet before bedtime. 60 Tablet 3 4 Active busPIRone HCl 5 MG Oral Tablet (Buspar)Indicati ons:Alcoholic cirrhosis of liver without ascites (HCC) Take 1 Tablet by mouth 3 times a day as needed (Anxiety). 90 Tablet 3 5 Active Gabapentin 300 MG Oral Capsule (Neurontin)Indic ations:Chronic midline thoracic back pain TAKE 1 CAPSULE BY MOUTH IN THE MORNING AND 2 IN THE EVENING 90 Capsule 5 5 Active documented as of this encounter (statuses as of 04/15/2024) Active Problems Problem Noted Date Diagnosed Date Affective psychosis, bipolar 04/08/2024 Chronic midline thoracic back pain 08/26/2023 Alcoholic [...] as of this encounter (statuses as of 04/15/2024) Resolved Problems Problem Noted Date Diagnosed Date [...] as of this encounter (statuses as of 04/15/2024) Immunizations Name Administration Dates Next Due Pneumococcal [...] Not on file Sexual Orientation Bisexual 10/26/2022 1 :34 PM EDT 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 I was in a hospital or clinic location. After connecting through televideo,patient was verified with two unique identifiers. Patient (or authorized legal administrative representative) was then informed that this was a Telemedicine visit and being conducted confidentially over secure lines. Methods to assure confidentiality were taken. Patient acknowledged consent and understanding of pr ivacy and security of the Telemedicine visit. The patient agreed to participate. 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 Seen by hepatology via telemedicine visit in [place] 04/11/2023 (Dr. Guthrie). Hehas PMHx of SANDI, OCD, alcohol use disorder among others. Patient was admitted to [facility] 03/29/23 - 04/02/23 for initially presenting [...] weird. Has not had insurance for 10years .No family hx of liver disease or autoimmune diease. +1/2 PPD X 20 years. He states around 2.5-3 years ago is when he started getting withdrawals from alcohol. He states he drank heavily for over a decade. Was sober at one point for 5 1/2 years but then started drinking heavily again. He was at [facility] last year because his gums wouldn't stop [...] following with an addiction medicine specialist in [place] and was recently diagnosed with Bipolar. He states he stopped taking acamprosate because his issue is insomnia and that's why he was drinking and that was not helping his insomnia. Serological work up negative for other causes of liver disease. Admitted in 08/25 at [facility] for alcohol detox - he was there for 6 days. Had an egd during his admission in 08/25 - egd by Dr. Bowling with g1ev done for reports of coffee ground emesis - started on nadolol by [facility].This was his withdrawal he reports. Today he states he is still actively drinking. Went back to detox in September, October, and November for detox but is still drinking. He is drinking about a pint of vodka daily. He states he has been "hanging in there" the past couple months. States he's ashamed of his drinking. He had cut back but states he's still drinking a pint of vodka per day. He states he is honest to his boyfriend about his drinking. He states he has to drink the pint of vodka daily or else he will get sick if he's not drinking. He doesn't want to go back to detox. He is taking lasix 40 mg BID and aldactone 25 mg daily for ascites and peripheral swelling. He is also on nadolol 40 mg daily for history of varices. No history of confusion. Review of systems: Positives in HPI. Negative for: Denies headache, lightheadedness, chest pain, cough, SOB, fever, chills, nausea, vomiting, heart burn, bloating, decreased appetite, early satiety, abdominal pain, diarrhea, fecal incontinence, constipation, rectal bleeding, weight loss, dysuria, frequency, incontinence, joint pain, back pain, weakness, fatigue, anxiety, depressed mood, difficulty sleeping. The remaining ROS reviewed and are negative. Past Medical History: Diagnosis Date INFORMATION viral menningitis age 3 Varicella without complication age 3 Past Surgical History: Procedure Laterality Date COLONOSCOPY, DIAGNOSTIC (RECTUM) 03/24/2014 normal bx/COLONOSCOPY FLEXIBLE PROXIMAL DIAGNOSTIC performed by Godfrey Enrique MD at ENDOSCOPY [facility] INFORMATION tubes in ears L-/S-SPINE PARAVERTEBRAL FACET INJ,1 LEVEL 11/22/2023 L-/S-SPINE PARAVERTEBRAL FACET INJ, 1 LEVEL performed by Gregory Lima MD at OR [facility] L-/S-SPINE PARAVERTEBRAL FACET INJ,1 LEVEL 01/27/2024 L-/S-SPINE PARAVERTEBRAL FACET INJ, 1 LEVEL performed by Manuel Bashir DO at OR [facility] L-/S-SPINE PARAVERTEBRL FACET INJ,2 LEVELS 11/22/2023 L-/S-SPINE PARAVERTEBRAL FACET INJ, 2 LEVELS performed by Gregory Lima MD at OR [facility] L-/S-SPINE PARAVERTEBRL FACET INJ,2 LEVELS 01/27/2024 L-/S-SPINE PARAVERTEBRAL FACET INJ, 2 LEVELS performed by Manuel Bashir DO at OR [facility] REMOVE TONSILS & ADENOIDS, UNDER 12 Tonsillectomy/Adenoids,<12 Y/O Family History Problem Relation Name Age of Onset Other (asthma) Brother Older brother Other (alcohol) Brother Older brother Other (drug abuse) Brother Older brother Other (smoking) Brother Older brother Other (Other) Brother Older brother Other (skin disorders) Other denies any in family Current Outpatient Medications Medication Sig Dispense Refill Melatonin 10 MG Oral Tablet Chewable Take by mouth. Paliperidone ER 9 MG Oral Tablet Extended Release 24 Hour (Invega) Take 1 Tablet by mouth in the morning. 90 Tablet 3 Nadolol 40 MG Oral Tablet (Corgard) Take 1 Tablet by mouth in the morning. 90 Tablet 1 Pantoprazole Sodium 40 MG Oral Tablet Delayed Release (Protonix) Take 1 Tablet by mouth in the morning and 1 Tablet before bedtime. 60 Tablet 5 Furosemide 20 MG Oral Tablet (Lasix) Take 1 Tablet by mouth daily as needed (Leg swelling). 30 Tablet 2 Spironolactone 25 MG Oral Tablet (Aldactone) Take 1 Tablet by mouth in the morning. 30 Tablet 11 Furosemide 40 MG Oral Tablet (Lasix) Take 1 Tablet by mouth in the morning and 1 Tablet before bedtime. 60 Tablet 3 busPIRone HCl 5 MG Oral Tablet (Buspar) Take 1 Tablet by mouth 3 times a day as needed (Anxiety). 90 Tablet 3 Gabapentin 300 MG Oral Capsule (Neurontin) TAKE 1 CAPSULE BY MOUTH IN THE MORNING AND 2 IN THE EVENING 90 Capsule 5 Folic Acid 1 MG Oral Tablet Take 1 Tablet by mouth in the morning. (Patient not taking: Reported on04/14/2024) 30 Tablet 2 Celecoxib 200 MG Oral Capsule (CeleBREX) Take 1 Capsule by mouth in the morning. (Patient not taking: Reported on 04/14/2024) 20 Capsule 2 Vitamin B Complex Oral Tablet Take 1 Tablet by mouth in the morning. (Patient not taking: Reported on 04/14/2024) Magnesium Chloride 64 MG Oral Tablet Delayed Release (Mag-64) Take 1 Tablet by mouth in the morningand 1 Tablet before bedtime. (Patient not taking: Reported on 04/14/2024) Acetaminophen 325 MG Oral Capsule Take 500 mg by mouth every evening. One to two tabs daily. No current facility-administered medications for this visit. Review of patient's allergies indicates: No Known Allergies Physical Exam- no vitals obtained as this was a video visit Well developed, well nourished male in no apparent distress. Eyes: mild scleral icterus Pulm: No respiratory distress Psychiatric: The patient is alert and oriented in all four spheres. Mood is euthymic. Affect is appropriate for the situation. Skin: No rashes were noted. Neuro: AAOx3 Recent Labs: Reviewed MELD 3.0: 18 at 02/13/2024 4:13 PM Calculated from: Serum Creatinine: 0.6 mg/dL (Using min of 1 mg/dL) at 02/13/2024 4:13 PM Serum Sodium: 136 mmol/L at 02/13/2024 4:13 PM Total Bilirubin: 4.6 mg/dL at 02/13/2024 4:13 PM Serum Albumin: 4.1 g/dL (Using max of 3.5 g/dL) at 02/13/2024 4:13 PM INR(ratio): 1.6 at 02/13/2024 4:13 PM Age at listing (hypothetical): 33 years Sex: Male at 02/13/2024 4:13 PM Imaging: Reviewed MRI liver 04/16/2023: IMPRESSION Hepatomegaly. [...] by hepatology via telemedicine visit in [place] 04/11/2023 (Dr. Guthrie). He has PMHx of [...] updated MELD score. Last MELD score was 18. Discussed given cirrhosis he will need abdominal imaging with AFP every [address] of the abdomen 12/2023. Due for imaging in June. Discussed with cirrhosis we would refer for transplant if MELD score remains persistently above 15 but he needs to remain sober for at least 6 months and engage in alcohol counseling. He is actively drinking a pint ofvodka daily. Does not want to go back to detox. Admitted in 08/25 at [facility] for alcohol detox - he wasthere for 6 days. Had an EGD during his admission in 08/25 - egd by Dr. Bowling with g1ev done for reports of coffee ground emesis - started on nadolol by [facility].This was his 30th withdrawal he reports. Another EGD done again in October at [facility] for reports of hematemesis. At that time found to have erosions at the GE junction, diffuse PHG, no mention of varices. Due again for EGD 10/2024. Strongly encouraged getting back with addition medicine/counseling and stopping all alcohol completely. His PCP just referred him for counseling/psychology. Discussed hepatic decompensation as he already has had small varices and ascites as well as alcohol hepatitis. He knows he is not a candidate for liver transpl ant with active alcohol abuse. 2. Vaccination. He has immunity against both hepatitis A and B on labs. 3. Alcohol abuse. I have advised the patient to abstain from drinking alcohol. The health risks imposed by heavy alcohol intake were discussed in detail. He states that he is following with an addiction medicine specialist in [place]. 4. 4 month follow up in person Katty Hernandes DO Gastroenterology and Hepatology I spent a total of 25 minutes on the date of service in [...] Care Team (Late st Contact Info) Description 06/02/2024 11:30 AM EDT Imaging Radiology [facility] [address] [place] [phone] 08/07/2024 3:00 PM EDT Office Visit [address] [phone] Tami Upton MD [address] [place] [phone] 09/08/2024 2:40 PM EDT Office Visit Hepatology, [facility] [address] [place] [address] Katty Hernandes DO [address] [place] [address] Scheduled Orders Name Type Priority Associated Diagnoses Orde r Schedule HEPATIC FUNCTION PANEL Lab Routine Alcoholic cirrhosis of liver without ascites (HCC) Expected: 04/14/2024, Expires: 04/14/2025 PT INR Lab Routine Alcoholic cirrhosis of liver without ascites (HCC) Expected: 04/14/2024, Expires: 04/14/2025 CBC WITH WBC DIFFERENTIAL Lab Routine Alcoholic cirrhosis of liver without ascites (HCC) Expected: 04/14/2024, Expires: 04/14/2025 BASIC METABOLIC PANEL Lab Routine Alcoholic cirrhosis of liver without ascites (HCC) Expected: 04/14/2024, Expires: 04/14/2025 US ABDOMEN LIMITED Medical Imaging Routine Alcoholic cirrhosis of liver without ascites (HCC) Expected: 06/02/2024, Expires: 05/12/2025 Scheduled Procedures Name Priority Associated Diagnoses Date/Ti me ESOPHAGOGASTRODUODENOSCOPY ( EGD), FLEXIBLE, TRANSORAL, ENDOSCOPIC ULTRASOUND Recall Alcohol abuse Hepatic fibrosis ESOPHAGOGASTRODUODENOSCOPY ( EGD), FLEXIBLE, TRANSORAL, DIAGNOSTIC Recall Alcohol abuse Hepatic fibrosis Health Maintenance Due Date Last Done Comments COVID-19 Vaccine ( season) 2023 Influenza Vaccine [...] ascites (HCC)- Primary Alcoholic cirrhosis of liver documented in this encounter Advance Directives * Full Code (Latest Code Status on File) Date Activated Date Inactivated Comments 03/29/2023 1:43 PM 04/02/2023 2:03 PM This order r eflects the patients wishes and were consensually agreed upon. Question Answer Comments Discussion of Advance Directives occurred with: Patient Care Teams Dye Machine Tender Relationship Specialty Start Date End Date Tami Upton MD [address] [place] [phone] PCP - General Family Medicine 04/14/24 documented as of this encounter
--- OUTSIDE RECORDS SUMMARY | 2024-04-22 02:08 | External Medical Summary | Summary of Care ---
Author Name Unknown Organization [facility] Address [address] [place] [address] Phone [phone] Care Team Providers Care Supervisor [place] Name Role Phone Tami Upton MD Primary Care Provi elena Reason for Visit * Reason Comments eRx-Medication Refill Encounter Details Date Type Department Care Team ([facility] Contact Info) Description 04/13/2024 Refill Family Practice [address] [phone] Tami Upton MD [address] [place] [phone] Chronic midline thoracic back pain Allergies No known active allergiesdocumented as of this encounter (statuses as of 04/13/2024) Medications Folic Acid 1 MG Oral Tablet Take 1 Tablet by mouth in the morning. 30 Tablet 2 06/26/19 24 Active Melatonin 10 MG Oral Tablet Chewable Take by mouth. Activ e Celecoxib 200 MG Oral Capsule (CeleBREX) Take 1 Capsule by mouth in the morning. 20 Capsule 2 09/17/19 24 Active Additional Information Patient taking differently:200 mg Oral Daily(AM),As needed, Reported on 04/08/2024 Paliperidone ER 9 MG Oral Tablet Extended Release 24 Hour (Invega)Indicat ions:Other insomnia,Bipola r affective disorder, current episode mixed, current episode severity unspecified (HCC) Take 1 Tablet by mouth in the morning. 90 Tablet 3 09/26/19 24 Active Nadolol 40 MG Oral Tablet (Corgard) Take 1 Tablet by mouth in the morning. 90 Tablet 1 09/26/19 24 Active Vitamin B Complex Oral Tablet Take 1 Tablet by mouth in the morning. Active Magnesium Chloride 64 MG Oral Tablet Delayed Release (Mag-64) Take 1 Tablet by mouth in the morning and 1 Tablet before bedtime. Active Pantoprazole Sodium 40 MG Oral Tablet Delayed Release (Protonix)Indic ations:Upper GI bleed Take 1 Tablet by mouth in the morning and 1 Tablet before bedtime. 60 Tablet 5 02/13/20 24 Active Furosemide 20 MG Oral Tablet (Lasix)Indicati ons:Bilateral leg edema Take 1 Tablet by mouth daily as needed (Leg swelling). 30 Tablet 2 02/13/20 24 Active Acetaminophen 325 MG Oral Capsule Take 500 mg by mouth every evening. One to two tabs daily. Active Spironolactone 25 MG Oral Tablet (Aldactone)[place] cations:Alcohol ic cirrhosis of liver without ascites (HCC),Esophagea l varices in cirrhosis (HCC),Portal hypertensive gastropathy (HCC) Take 1 Tablet by mouth in the morning. 30 Tablet 11 02/18/20 24 Active Furosemide 40 MG Oral Tablet (Lasix) Take 1 Tablet by mouth in the morning and 1 Tablet before bedtime. 60 Tablet 3 02/18/20 24 Active busPIRone HCl 5 MG Oral Tablet (Buspar)Indicat ions:Alcoholic cirrhosis of liver without ascites (HCC) Take 1 Tablet by mouth 3 times a day as needed (Anxiety). 90 Tablet 3 04/08/19 25 Active Gabapentin 300 MG Oral Capsule (Neurontin)[place] cations:Chronic midline thoracic back pain TAKE 1 CAPSULE BY MOUTH IN THE MORNING AND 2 IN THE EVENING 90 Capsule 5 04/13/19 25 Active Gabapentin 300 MG Oral Capsule (Neurontin)[place] cations:Chronic midline thoracic back pain Take 2 Capsules by mouth daily AND 3 Capsules at bedtime. 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 Not on file Not on file documented as of this encounter Miscellaneous Notes * Telephone Encounter - Tami Upton MD - 04/13/2024 2:53 PM EST Signed Prescriptions: Disp Refills Gabapentin 300 MG Oral Capsule (Neurontin) 90 Cap*5 Sig: TAKE 1 CAPSULE BY MOUTH IN THE MORNING AND 2 IN THE EVENING Authorizing Provider: TAMI UPTON * Telephone Encounter - Maira Torres LPN - 04/13/2024 2:37 PM ESTPending Prescriptions: Disp Refills Gabapentin 300 MG Oral Capsule 90 Cap*0 Sig: TAKE 1 CAPSULE BY MOUTH IN THE MORNING AND 2 IN THE EVENING * Telephone Encounter - Jama Irizarry - 04/13/2024 1:10 PM ESTPending Prescriptions: Disp Refills Gabapentin 300 MG Oral Capsule 90 Cap*0 Sig: TAKE 1 CAPSULE BYMOUTH IN THE MORNING AND 2 IN THE EVENING documented in this encounter Plan of Treatment Upcoming Encounters Date Type Department Care Team ([facility] st Contact Info) Description 04/14/2024 3:20 PM EST Telemedicine Hepatology, [facility] Epps [address] [phone] Katty Hernandes DO [address] [place] [address] 08/07/2024 3:00 PM EDT Office Visit [facility] [address] [place] [phone] Tami Upton MD [address] [place] [phone] Scheduled Procedures Name Priority Associated Diagnoses Date/Ti me ESOPHAGOGASTRODUODENOSCOPY ( EGD), FLEXIBLE, TRANSORAL, ENDOSCOPIC ULTRASOUND Recall Alcohol abuse Hepatic fibrosis ESOPHAGOGASTRODUODENOSCOPY ( EGD), FLEXIBLE, TRANSORAL, DIAGNOSTIC Recall Alcohol abuse Hepatic fibrosis Health Maintenance Due Date Last Done Comments COVID-19 Vaccine (2023- season) 2023 Influenza Vaccine [...] of this encounter Visit Diagnoses Diagnosis Chronic midline thoracic back pain documented in this encounter Advance Directives * Full Code (Latest Code Status on File) Date Activated Date Inactivated Comments 03/29/2023 1:43 PM 04/02/2023 2:03 PM This order r eflects the patients wishes and were consensually agreed upon. Question Answer Comments Discussion of Advance Directives occurred with: Patient Care Teams Supervisor [place] Relationship Specialty Start Date End Date Tami Upton MD [address] [place] [phone] PCP - General Family Medicine 03/06/24 documented as of this encounter
--- OUTSIDE RECORDS SUMMARY | 2024-04-22 02:08 | External Medical Summary | Summary of Care ---
Author Name Unknown Organization [facility] Address [address] [place] [address] Phone [phone] Care Team Providers Care Weld Fitter Name Role Phone Tami Upton MD Primary Care Provi elena Reason for Referral * Evaluate & Treat - Unlimited Visits (Within 10 days (routine)) - Pending Review Specialty Diagnoses / Procedures Referred By Contluis t Referred To Contact Psychology Diagnoses Mood disorder (HCC) Tami Upton MD [address] [place] [phone] Phone: tel: fax: Referral ID Status Reason Start Date Expiration Date Visits Requested Visits Authorized [id number] Pending Review Specialty Services Required 04/08/[phone] Question Answer Referral Priority Within 10 days (routine) Where should this appointment be scheduled? [facility] Is this referral for medication management? No Reason for Referral: Depression/Anxiety/Bipolar Specific Condition? 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 60 Tablet 5 4 Active Gabapentin 300 MG Oral Capsule (Neurontin)Indic ations:Chronic midline thoracic back pain Take 2 Capsules by mouth daily AND 3 Capsules at bedtime. 150 Capsule 2 4 05/14/19 25 Active Furosemide 20 MG Oral Tablet (Lasix)Indicatio [...] needed (Anxiety). 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 Not on file Not on file documented as of this encounter Last Filed Vital Signs Vital Sign Reading Time Taken Comments Blood Pressure 128/78 04/08/2024 3:24 PM EST Pulse 69 04/08/2024 3:24 PM EST Temperature 36.3 C (97.3 F) 04/08/2024 3:24 PM ES T Respiratory Rate 20 04/08/2024 3:24 PM EST Oxygen Saturation 99% 04/08/2024 3:24 PM EST Inhaled Oxygen Concentration - - Weight 85.7 kg (189 lb) 04/08/2024 3:24 PM EST Height 175.3 cm (5' 9") 04/08/2024 3:24 PM EST Body Mass Index 27.91 04/08/2024 3:24 PM EST documented in this encounter Patient Instructions * Patient Instructions* Tami Upton MD - 04/08/2024 3:38 PM EST [place] nasal saline gel Afrin nasal spray for nose bleeds documented in this encounter Progress Notes * Tami Upton MD - 04/08/2024 3:20 PM EST Images from the original note were not included. Subjective Esdras Storey is a 33 year old male with alcoholic cirrhosis, insomnia, suspected bipolar disorder that presents for Follow Up (Patient is present today for a follow up/States no concerns today ) History of Present Illness Esdras Storey is a 33 year old male with alcohol use disorder and anxiety who presents with sleep disturbances and nosebleeds. He is managing alcohol use disorder, currently consuming a pint of vodka approximately three times a week, which is a reduction from previous levels. He finds it helpful to be open with his boyfriendabout his alcohol consumption. His family, including his boyfriend and mother, are potential liver donors, and he is aware of the requirement to abstain from alcohol for six months to be considered for a liver transplant. He experiences sleep disturbances due to anxiety attacks, with episodes of increased blood pressureand sweating while trying to sleep. Historically, he used alcohol to manage these symptoms but is now attempting to regulate his consumption. He currently achieves three to four hours of solid sleep per night, which is an improvement. He has experienced severe epistaxis, including one episode requiring an ER visit due to prolonged bleeding and clot expulsion. He uses nasal decongestants and notes that cold air during walks may exacerbate his epistaxis. He also reports bleeding gums when brushing his teeth and difficulty finding a dentist who accepts his insurance. He has a history of low platelet counts, which he believes contributes to his bleeding issues. He is currently taking Invega (paliperidone) 9 mg daily for mood regulation but does not notice a significant difference. He describes mood fluctuations, with periods of low mood followed by high energy. He is considering video counseling to help manage his mental health. He lives in a small apartment and engages in daily walks for exercise. 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 Alcoholic cirrhosis - abdominal imaging up to date 12/2023; taking lasix 40 mg BID and spironolactone 25 mg daily due to edema/ascites. Has known varices. EGD up to date. No encephalopathy. Objective Vitals: 04/08/24 1524 Temp: 97.3 F (36.3 C) Pulse: 69 Resp: 20 SpO2: 99% BP: 128/78 BMI: 27.9 Physical Exam EXTREMITIES: Reduced swelling in legs. Physical Exam Vitals and nursing note reviewed. [...] baseline. I have reviewed the following results: Results CT A/P , INR, CMP, and CBC Assessment and Plan Assessment & Plan Alcohol Use Disorder Patient reports decreased alcohol consumption to 3 days per week, 1 pint per day. Experiencing improved sleep and mood. Discussed potential need for liver transplant if liver function does not improve, and the requirement of 6 months of sobriety to be a candidate. -Continue current efforts to reduce alcohol consumption. -Consider outpatient counseling, set up for video counseling through [facility]. -Not interested in inpatient rehab Anxiety Reports of anxiety attacks, particularly around sleep. Currently using alcohol to manage symptoms. -Start Buspar 5mg TID as needed for anxiety. Alcoholic Cirrhosis Patient on Nadolol, Furosemide, and Spironolactone. Reports improved swelling and weight loss. Recent CT scan showed distended gallbladder. -Continue current medications. -Follow up with hepatology as scheduled -Will wait on labs until that visit Bipolar Disorder On Invega (paliperidone) 9mg daily, reports no noticeable difference. -Continue Invega at current dose. -Consider dose increase or medication switch at future appointment. -Declines psychiatry referral Epistaxis Reports of severe nosebleeds, one requiring ER visit. Discussed strategies to prevent nosebleeds, including nasal saline gel and Afrin nasal spray. -Start using [place] nasal saline gel, particularly before going out in cold/dry weather. -Consider Afrin nasal spray for severe nosebleeds to avoid ER visits. Edema Reports improved swelling, currently on Furosemide and Spironolactone. Patient has non-prescriptioncompression socks. -Continue current medications and use of compression socks as needed. Follow-up in 4 months or sooner with another provider if needed. Alcoholic cirrhosis of liver without ascites (HCC) (Primary) - busPIRone HCl 5 MG Oral Tablet (Buspar); Take 1 Tablet by mouth 3 times a day as needed (Anxiety). 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 | For: Return withPhysician Time: I spent a total of 20-29 minutes (exact time 27 mins) on the date of service in preparation, delivery, and documentation of the care provided to Esdras Storey excluding any time spent in the performance of separately billed services. Text in this note was generated using an ambient documentation service. I discussed the use of a device to record and summarize our discussion today. All persons present during the encounter consented to its use. documented in this encounter Nursing Notes * Valerie Ramos CCMA - 04/08/2024 3:24 PM EST The patient has been properly identified by confirmation of name and date of . Chief Complaint Patient presents with Follow Up Patient is present today for a follow up States no concerns today documented in this encounter Plan of Treatment Upcoming Encounters Date Type Department Care Team (Late st Contact Info) Description 04/14/2024 3:20 PM EST Telemedicine Hepatology, [address] [phone] Katty Hernandes DO [address] [place] [address] 08/07/2024 3:00 PM EDT Office Visit [facility] [address] [place] [phone] Tami Upton MD [address] [place] [phone] Scheduled Procedures Name Priority Associated Diagnoses Date/Ti me ESOPHAGOGASTRODUODENOSCOPY ( EGD), FLEXIBLE, TRANSORAL, ENDOSCOPIC ULTRASOUND Recall Alcohol abuse Hepatic fibrosis ESOPHAGOGASTRODUODENOSCOPY ( EGD), FLEXIBLE, TRANSORAL, DIAGNOSTIC Recall Alcohol abuse Hepatic fibrosis Scheduled Referrals Name Type Priority Associated Diagnoses Orde r Schedule ADULT/PEDS PSYCHOLOGY REFERRAL OP Referral Within 10 days (routine) Mood disorder (HCC) Ordered: 04/08/2024 Health Maintenance Due Date Last Done Comments [...] ascites (HCC)- Primary Alcoholic cirrhosis of liver 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) Cirrhosis of liver without mention of alcohol Mood disorder (HCC) Unspecified episodic mood disorder Bipolar disorder, current episode mixed, severe, with psychotic features (HCC) Bipolar I disorder, most recent episode (or current) mixed, severe, specified as with psychotic behavior Alcohol dependence, continuous (HCC) Other and unspecified alcohol dependence, continuous drinking behavior Epistaxis documented in this encounter Advance Directives * Full Code (Latest Code Status on File) Date Activated Date Inactivated Comments 03/29/2023 1:43 PM 04/02/2023 2:03 PM This order r eflects the patients wishes and were consensually agreed upon. Question Answer Comments Discussion of Advance Directives occurred with: Patient Care Teams Weld Fitter Relationship Specialty Start Date End Date Tami Upton MD [address] [place] [phone] PCP - General Family Medicine 03/06/24 documented as of this encounter
--- OUTSIDE RECORDS SUMMARY | 2024-04-22 02:08 | External Medical Summary | Summary of Care ---
Author Name Unknown Organization [facility] Address [address] [place] [address] Phone [phone] Care Team Providers Care Wiring Technician Name Role Phone Tami Upton MD Primary Care Provi elena Encounter Details Date Type Department Care Team (Late st Contact Info) Description 04/21/2024 Orders Only PATIENT PORTAL DO NOT DELETE THIS DEPT USED BY HARISH [place], [place] [id number] Allergies No known active allergiesdocumented as of this encounter (statuses as of 04/21/2024) Medications Folic Acid 1 MG Oral Tablet [...] as of this encounter (statuses as of 04/21/2024) Active Problems Problem Noted Date Diagnosed Date [...] as of this encounter (statuses as of 04/21/2024) Resolved Problems Problem Noted Date Diagnosed Date [...] as of this encounter (statuses as of 04/21/2024) Immunizations Name Administration Dates Next Due Pneumococcal [...] 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 Not on file Not on file documented as of this encounter Plan of Treatment Upcoming Encounters Date Type Department Care Team (Late st Contact Info) Description 06/02/2024 11:30 AM EDT Imaging Radiology [facility] [address] [place] [phone] 08/07/2024 3:00 PM EDT Office Visit [address] [phone] Tami Upton MD [address] [place] [phone] 09/08/2024 2:40 PM EDT Office Visit Hepatology, [facility] [address] [place] [address] Katty Hernandes DO [address] [place] [address] Scheduled Procedures Name Priority Associated Diagnoses Date/Ti [...] on patient's age to complete this topic Meningitis B Vaccine (Bexsero/Trumemba) Aged Out No longer eligible based on [...] Advance Directives occurred with: Patient Care Teams Wiring Technician Relationship Specialty Start Date End Date Tami Upton MD [address] [place] [phone] PCP - General Family Medicine 04/14/24 documented as of this encounter
[2024-04-22] MEDS: GABAPENTIN 600 MG TAB PO SCH ×2 (06:04→20:03)
[2024-04-22] MEDS: PALIPERIDONE 3 MG TABCR PO SCH (07:32)
[2024-04-22] MEDS: MULTIVITAMIN TAB PO SCH (07:33)
[2024-04-22 07:51] LABS: Basophils # (auto) 0.04 K/uL (0.00-0.20); Basophils % (auto) 0.7 %; Eosinophils # (auto) 0.12 K/uL (0.00-0.50); Hematocrit (blood only) 33.5 % (42.0-52.0); Hemoglobin 11.7 g/dl (14.0-18.0); Immature Granulocytes # (auto) 0.02 K/uL (0.01-0.20); Immature Granulocytes % (auto) 0.3 %; Lymphocytes # (auto) 2.39 K/uL (1.20-3.40); Lymphocytes % (auto) 39.5 %; Mean Corpuscular Hgb Conc 34.9 g/dL (32.0-36.0); Mean Corpuscular Volume 94.4 fL (80.0-100.0); Mean Platelet Volume 12.1 fL (9.4-12.4); Monocytes # (auto) 0.45 K/uL (0.11-0.59); Monocytes % (auto) 7.4 %; Neutrophils # (auto) 3.03 K/uL (1.40-6.50); Neutrophils % (auto) 50.1 %; Platelet Count 32 K/uL (130-400); RDW Coefficient of Variation 17.6 % (11.5-14.5); Red Blood Count 3.55 M/uL (4.70-6.10); White Blood Count 6.05 K/ul (4.8-10.8)
[2024-04-22 07:59] LABS: INR 1.8 (0.9-1.1); Prothrombin Time 18.9 Seconds (9.0-12.0)
[2024-04-22 08:10] LABS: Albumin Level 3.7 gm/dl (3.4-5.0); Bilirubin,Total 5.6 mg/dl (0.2-1.0); Calcium 8.7 mg/dl (8.6-10.3); Creatinine Clr Calc Pharmacy 205.6 ml/min; Magnesium 1.5 mg/dl (1.7-2.4); Phosphorus 3.3 mg/dl (2.5-4.9); Potassium 4.2 mmol/L (3.5-5.1); Total Protein 6.7 gm/dl (6.0-8.3)
--- NOTE | 2024-04-22 09:27 | Gastrointestinal Consultation ---
Date of Consultation April 22, 2024 Assessment & Plan (1) Cirrhosis: (2) Upper gastrointestinal hemorrhage: Plan Patient with chronic alcohol abuse, cirrhosis, admitted after episodes of hematemesis. he has had no further episodes since admission. Hgb did drop from 13.1 to 11.7. Case was discussed with Dr. Barnes who also saw and examined patient. - continue with protonix drip. - continue octreotide drip. - set up EGD for today to further evaluate. - recommend alcohol cessation. Supervising Physician Co-Signing Physician Notes I personally saw and examined the patient. I have reviewed the chart and agree with the documentation provided by the CAR HIKER including discussion about the assessment, treatment and plan. Briefly, 33 year old male with known alcohol cirrhosis and alcohol misuse who presented to the emergency department on 04/21 with acute onset of hematemesis and one small dark stool. He admits that he has been drinking again to help with this sleeping and has been drinking 1-2 1/5 of vodka daily. Since he has been admitted, he has not had further emesis. no further nausea. EGD last October showed mild to moderate portal hypertensive gastropathy with possible early grade 01 varices. Unfortunately has continued to drink and had a positive alcohol level on arrival. He is not overly shaky and does not report severe DTs. No further nausea since arrival. Continue IV octreotide PPI and ceftriaxone. Will give 1 dose of Reglan. EGD today n.p.o. he does have clear alcoholic hepatitis. His Madrey's discrimination function is almost 38, we will hold off steroids until we control the bleeding issue and we can consider this after. History of Present Illness Reason for Consultation: hematemesis Requesting Physician: Osman Eubanks DO Attending Physician: Nan Geller MD History of Present Illness Patient is a 33 year old male with known alcohol cirrhosis and alcohol misuse who presented to the emergency department on 04/21 with acute onset of hematemesis and one small dark stool. He admits that he has been drinking again to help with this sleeping and has been drinking 1-2 1/5 of vodka daily. Since he has been admitted, he has not had further emesis. no further nausea. no abdominal pain. no acid reflux. No bowel movements since admission. Since admission, he was started on octreotide drip and IV protonix. EGD 10/15/23 normal duodenum, eroded mucosa in esophagus, congestive gastropathy. 04/21/24 hgb 13.1 04/22/24 hgb 11.7 Allergies Allergy/AdvReac Type Severity Reaction Status Date / Time No Known Allergies Allergy Verified 04/21/24 18:45 Home Medications Medication Instructions Recorded Confirmed Type nadolol 40 mg tablet 40 mg PO QAM 10/14/23 04/21/24 History paliperidone 9 mg tablet,extended 9 mg PO QAM 10/14/23 04/21/24 History release 24 hr buspirone 5 mg tablet 5 mg PO TID PRN Anxiety 04/21/24 04/21/24 History furosemide 40 mg tablet 40 mg PO BID 04/21/24 04/21/24 History gabapentin 300 mg capsule 300 mg PO UD 04/21/24 04/21/24 History pantoprazole 40 mg tablet,delayed 40 mg PO BID 04/21/24 04/21/24 History release spironolactone 25 mg tablet 25 mg PO QAM 04/21/24 04/21/24 History Patient History Medical History Alcoholic cirrhosis HTN (hypertension) Thrombocytopenia OCD (obsessive compulsive disorder) Insomnia Bipolar 1 disorder Tobacco abuse Alcohol dependence Compression fracture of T12 vertebra Compression fracture of L1 lumbar vertebra Hepatosplenomegaly Mixed hyperlipidemia Alcohol abuse Surgical History Hx of tonsillectomy Hx of colonoscopy 2015, WNL, internal hemorrhoids Social History Smoking Status: Current every day smoker Tobacco Type: Cigarettes and E-cigarettes / Vaping Cigarettes Per Day: 1/2 pack; Second Hand Exposure: Yes; Do You Dip or Chew Tobacco: No; Tobacco Cessation Education Requested by Patient: No Hx Alcohol Use: Yes Alcohol type: hard liquor Hx Substance Use: Yes Last Used Substance: Unknown Last Used Substance Other:: 10 yrs ago Substance Use Type Other:: ectasy, mushrooms, LSD x10 yrs ago Preferred Language: Ugandan Communication Ability: Effective Counseling Aide Required: No Beliefs That Will Affect Care: None Current Living Situation: Significant Other Feels Safe at Home: Yes Safety Concerns: Feels Safe At This Time Assistive Devices: None Review of Systems Review of Systems: All systems reviewed & are unremarkable except as noted in HPI & below Physical Exam Constitutional: WD/WN, vitals as above Respiratory: normal respiratory effort, lungs clear to auscultation Cardiovascular: Rate/Rhythm: regular rate and regular rhythm Gastrointestinal (Abdomen): normal bowel sounds, soft, nontender, no hepatosplenomegaly Psychiatric: Orientation: alert and oriented x 3 Affect: euthymic affect Results & Data Vital Signs (Past 12 Hours) Vital Signs Temp Pulse Pulse Resp BP Pulse Ox O2 Del Method 04/22/24 09:01 98.4 F 72 14 159/75 H 94 Room Air 04/22/24 07:48 Room Air 04/22/24 03:15 98.8 F 97 H 18 156/78 H 98 Room Air 04/21/24 23:56 98.6 F 100 H 18 108/70 96 Room Air 04/21/24 21:54 92 H Laboratory Results Lab Results 04/21/24 04/21/24 04/22/24 Range/Units 16:13 16:20 06:42 WBC 6.46 6.05 (4.8-10.8) K/ul RBC 4.08 L 3.55 L (4.70-6.10) M/uL Hgb 13.1 L 11.7 L (14.0-18.0) g/dl POC Hgb 13.6 L (14.0-18.0) g/dl Hct 37.7 L 33.5 L (42.0-52.0) % POC Hct 40 L (42-52) % MCV 92.4 94.4 (80.0-100.0) fL MCH 32.1 33.0 (25.0-34.0) pg MCHC 34.7 34.9 (32.0-36.0) g/dL RDW Std Deviation 58.4 H 61.0 H (36.4-46.3) fL RDW Coeff of Joe 17.3 H 17.6 H (11.5-14.5) % Plt Count 40 L 32 L (130-400) K/uL MPV 11.3 12.1 (9.4-12.4) fL Immature Gran % (Auto) 0.5 0.3 % Neut % (Auto) 64.2 50.1 % Lymph % (Auto) 26.5 39.5 % [place] % (Auto) 6.8 7.4 % Eos % (Auto) 1.1 2.0 % Baso % (Auto) 0.9 0.7 % Neut # (Auto) 4.15 3.03 (1.40-6.50) K/uL Lymph # (Auto) 1.71 2.39 (1.20-3.40) K/uL [place] # (Auto) 0.44 0.45 (0.11-0.59) K/uL Eos # (Auto) 0.07 0.12 (0.00-0.50) K/uL Baso # (Auto) 0.06 0.04 (0.00-0.20) K/uL Immature Gran # (Auto) 0.03 0.02 (0.01-0.20) K/uL PT 17.9 H 18.9 H (9.0-12.0) Seconds INR 1.7 H 1.8 H (0.9-1.1) APTT 31 (21-31) Seconds PTT Ratio 1.2 POC Sodium 139 (135-144) mmol/L Sodium 139 136 (136-145) mmol/L POC Potassium 3.4 (3.3-5.0) mmol/L Potassium 3.4 L 4.2 D (3.5-5.1) mmol/L POC Chloride 104 (101-112) mmol/L Chloride 101 101 (98-107) mmol/L Carbon Dioxide 23 26 (21-32) mmol/L POC Total CO2 21 L (24-31) mmol/L Anion Gap 15 H 9 (3-11) POC Anion Gap 19.0 (16-25) mmol/L POC BUN 10 (7-18) mg/dl BUN 12 11 (6-23) mg/dl Creatinine 0.46 L 0.55 L (0.6-1.4) mg/dl POC Creatinine 0.6 (0.6-1.3) mg/dl Est Cr Clr Drug Dosing 244.3 205.6 ml/min eGFR 139.89 132.54 BUN/Creatinine Ratio 26.1 H 20.0 (10-20) Glucose 112 H 101 H (70-99(Fasting)) mg/dl POC Glucose (other) 115 H (70-99) mg/dl Calcium 9.2 8.7 (8.6-10.3) mg/dl POC Ioniz Calcium William 1.04 L (1.12-1.32) mmol/l Phosphorus 3.3 (2.5-4.9) mg/dl Magnesium 1.6 L 1.5 L (1.7-2.4) mg/dl Total Bilirubin 5.1 H 5.6 H (0.2-1.0) mg/dl Direct Bilirubin 2.0 H 2.0 H (0-0.2) mg/dl AST 309 H 245 H (13-39) U/L ALT 124 H 99 H (7-52) U/L Alkaline Phosphatase 107 H 87 (34-104) U/L Total Protein 7.8 6.7 (6.0-8.3) gm/dl Albumin 4.4 3.7 (3.4-5.0) gm/dl Lipase 129 H (11-82) U/L Ethyl Alcohol mg/dL 101.0 H (<10.0) mg/dl Blood Type A Positive Antibody Screen NEGATIVE Coding Level of Care Code 49019 IN/OBS CONSULT LVL 4,60M Diagnoses Cirrhosis K74.60 Hepatic cirrhosis type: alcoholic cirrhosis Upper gastrointestinal hemorrhage K92.2 (1) Cirrhosis Hepatic cirrhosis type: alcoholic cirrhosis
[2024-04-22] MEDS: METOCLOPRAMIDE HCL INJ 5 MG/ML 2 ML VIAL IV STA (09:42)
[2024-04-22] MEDS: MAGNESIUM SULFATE / D5W 1 GM/100 ML BAG IV SCH (09:46)
--- NOTE | 2024-04-22 11:21 | Electrocardiogram Report ---
Test Reason : Blood Pressure : */* mmHG Vent. Rate : 97 BPM Atrial Rate : 97 BPM P-R Int : 158 ms QRS Dur : 92 ms QT Int : 410 ms P-R-T Axes : 66 73 55 degrees QTcB Int : 520 ms Normal sinus rhythm Prolonged QT Abnormal ECG When compared with ECG of 10-Mar-2024 08:45, No significant change was found Confirmed by Rafael Sky ([id number]) on 04/22/2024 11:20:58 AM Referred By: REFERRED SELF Confirmed By: Rafael Sky
--- NOTE | 2024-04-22 13:35 | Hospitalist Progress Note ---
Date of Service April 22, 2024 Assessment & Plan (1) Gastrointestinal hemorrhage with hematemesis: (2) Alcoholic gastritis with bleeding: (3) Portal hypertensive gastropathy: (4) Esophageal ulceration: (5) Alcohol withdrawal: (6) Alcohol intoxication: (7) Alcoholic cirrhosis: (8) Thrombocytopenia: (9) Alcohol use disorder, severe, dependence: (10) OCD (obsessive compulsive disorder): (11) Bipolar 1 disorder: (12) Tobacco abuse: Plan Pt is a 33-year-old male with past medical history significant for ongoing alcoholism, alcoholic cirrhosis of the liver, esophageal varices, portal hypertensive gastropathy, past compression fraction of L1 and T12 vertebrae, chr onic midline thoracic pain, obsessive-compulsive disorder, medical marijuana use and generalized anxiety disorder who presented with concern for hematemesis. Acute GI Bleed Hematemesis Acute on Chronic Anemia Pt presenting with episodes of hematemesis at home Hgb of 13 on admission, downtrended to 11 overnight AM anemia panel PPI drip IV octreotide GI consulted, recommended/stated the following: -s/p EGD on 04/22/24 -EGD noting the following findings: "...Grade I esophageal varices.Portal hypertensive gastropathy. areas of stomach oozed on air insufflation and this is likely the source of melena. NO ACTIVE BLEEDING NOTED. Normal examined duodenum..." - ETOH cessation -restart nadolol if blood pressure tolerates it -Can d/c ppi bid and octreotide. -Start prednisolone or prednisone 40 for ETOH hepatitis with MDF 38 Nadolol restarted PPI drip discontinued and started on pantoprazole 40mg BID GI to start steroids as noted above, concern for starting in setting of acute GI bleed Advance diet as tolerated Continue to monitor H/H with AM labs Transaminitis Alcoholic hepatitis Cirrhosis Chronic Alcohol Use Liver enzymes significantly elevated, INR elevated US liver ordered Alcohol level elevated Ammonia level pending AWSS protocol with gabapentin and Ativan GI to start steroids as noted above for alcohol hepatitis, concern for starting in setting of acute GI bleed Nadolol restarted, home diuretics currently on hold Continue folate and thiamine supplements Continue to monitor with daily CMP Thrombocytopenia Likely in setting of chronic alcohol use continue to monitor Hypokalemia Hypocalcemia Hypomagnesemia Levels occasionally decreased Replete as needed Continue to monitor levels Elevated lipase levels Pt with chronically elevated lipase levels Last CT abd/pelvis in Feb [address] evidence of acute pancreatitis at that time, lipase levels higher at that time as well Pt has had ~4 CT scans of his abdomen in the last year Will defer on further CT imaging at this time Continue to monitor Prolonged QTC EKG on admission noting NSR and prolonged qtc of 520 Avoid qtc prolonging medications as able, zofran discontinued Compazine ordered prn for nausea Daily EKGs to follow qtc Continue to monitor Continue other home meds as ordered Diet: advance as tolerated DVT prophylaxis: SCDs in setting of acute GI bleed Dispo: Home once medically stable Admission and Anticipated Discharge Date Admission Date: April 21, 2024 Subjective pt was seen in the AM before his EGD Noted that he had no further episodes of hematemesis at that time Denied nausea or bloody stools Last Ativan dose at that time overnight Review of Systems Review of Systems: All systems reviewed & are unremarkable except as noted in Subjective Physical Exam Physical Exam: General: Alert, oriented. No acute distress Neuro: No gross deficits, no noted tremors HEENT: NC/AT CV: RRR Resp: Breath sounds clear bilaterally, no increased effort of breathing Abdomen: Soft, nontender Extremities: No edema in lower extremities bilaterally. Results & Data Results & Data Vital Signs (Past 12 Hours) Vital Signs Temp Pulse Pulse Resp BP Pulse Ox O2 Del Method 04/22/24 11:27 36.5 C 79 16 149/81 H 96 Room Air 04/22/24 09:01 36.9 C 72 14 159/75 H 94 Room Air 04/22/24 08:00 82 04/22/24 07:48 Room Air 04/22/24 03:15 37.1 C 97 H 18 156/78 H 98 Room Air
--- NOTE | 2024-04-22 14:15 | Anesthesiology Consultation ---
Date of Service April 22, 2024 Assessment & Plan (1) Encounter for pre-operative examination: Chart Review Chart Review: Acceptable Risk for Surgery and Patient NOT seen in Pre Admission Testing Consults Requested none History Surgery Operation Date: 04/22/24 16:45 Proposed Procedures p Esophagogastroduodenoscopy Molly Barnes MD Height/Weight Height: 5 ft 9 in Weight: 87.8 kg Allergies Allergy/AdvReac Type Severity Reaction Status Date / Time No Known Allergies Allergy Verified 04/22/24 14:24 Medications Home Medications Medication Instructions Recorded Confirmed Last Taken nadolol 40 mg tablet 40 mg PO QAM 10/14/23 04/21/24 04/21/24 paliperidone 9 mg tablet,extended 9 mg PO QAM 10/14/23 04/21/24 04/21/24 release 24 hr buspirone 5 mg tablet 5 mg PO TID PRN Anxiety 04/21/24 04/21/24 Unknown furosemide 40 mg tablet 40 mg PO BID 04/21/24 04/21/24 04/21/24 am gabapentin 300 mg capsule 300 mg PO UD 04/21/24 04/21/24 04/21/24 pantoprazole 40 mg tablet,delayed 40 mg PO BID 04/21/24 04/21/24 04/21/24 release am spironolactone 25 mg tablet 25 mg PO QAM 04/21/24 04/21/24 04/21/24 Active Medications Generic Name Dose Route Start Last Admin Trade Name Freq PRN Reason Stop Dose Admin Buspirone HCl 5 mg 04/21/24 21:00 04/22/24 07:34 Buspirone 5 Mg Tab PO 05/21/24 20:59 5 mg TID PUJA Administration Pantoprazole Sodium 40 mg/ 100 mls @ 20 mls/hr 04/21/24 16:45 04/22/24 10:56 Dextrose IV 05/21/24 16:44 8 mg/hr Q5H PUJA 20 mls/hr Administration 8 MG/HR Octreotide Acetate 500 mcg/ 100.5 mls @ 10.05 mls/hr 04/21/24 16:15 04/22/24 10:52 Sodium Chloride IV 05/21/24 16:14 Infused .Q10H PUJA Infusion 50 MCG/HR Thiamine HCl 100 mg/ Syringe 10 mls @ 2 mls/min 04/21/24 20:15 04/22/24 10:56 IV 05/21/24 20:14 2 mls/min QAM PUJA Administration Folic Acid 1 mg/ Syringe 10 mls @ 5 mls/min 04/21/24 20:15 04/22/24 10:56 IV 05/21/24 20:14 5 mls/min QAM PUJA Administration Lactated Ringer's 1,000 mls @ 100 mls/hr 04/21/24 19:56 04/22/24 06:04 Lr IV 04/22/24 19:55 100 mls/hr .Q10H PUJA Administration Sodium Chloride 500 mls @ 15 mls/hr 04/22/24 07:30 04/22/24 14:34 Nss IV 04/23/24 07:29 15 mls/hr .Q24H PUJA Administration Lorazepam 1 mg 04/21/24 19:56 04/21/24 22:55 Lorazepam 2 Mg/1 Ml Vial IV 05/21/24 19:55 1 mg UD PRN Administration EtOH Withdrawal AWSS Score 6,7 Protocol Multivitamins 1 tab 04/22/24 09:00 04/22/24 07:33 Multivitamin Tab PO 05/22/24 08:59 1 tab QAM PUJA Administration Paliperidone 9 mg 04/22/24 09:00 04/22/24 07:32 Paliperidone 3 Mg Tabcr PO 05/22/24 08:59 Not Given QAM PUJA Past Medical History Medical History Alcoholic cirrhosis HTN (hypertension) Thrombocytopenia OCD (obsessive compulsive disorder) Insomnia Bipolar 1 disorder Tobacco abuse Alcohol dependence Compression fracture of T12 vertebra Compression fracture of L1 lumbar vertebra Hepatosplenomegaly Mixed hyperlipidemia Alcohol abuse Past Surgical History Surgical History Hx of tonsillectomy Hx of colonoscopy 2015, WNL, internal hemorrhoids Social History Smoking Status: Current every day smoker Smoking cigarettes per day: 1/2 pack Do You Dip or Chew Tobacco: No Hx Alcohol Use: Yes Alcohol type: hard liquor alcohol intake frequency: 3 or more drinks per day Alcohol Intake Frequency Comment: 1 pint, to 2 pints of Vodka day Hx Substance Use: Yes substance use type: marijuana and crack/cocaine Substance Use Type Other:: ectasy, mushrooms, LSD x10 yrs ago Last Used Substance: Unknown Last Used Substance Other:: 10 yrs ago Physical Exam Vital Signs Last Vital Signs Temp 36.9 C 04/22/24 14:24 Pulse 87 04/22/24 14:24 Resp 16 04/22/24 14:24 BP 135/95 04/22/24 14:24 Pulse Ox 96 04/22/24 14:24 O2 Del Method Room Air 04/22/24 14:24 Testing Laboratory Results 04/22/24 06:42 04/22/24 06:42 PT 18.9 Seconds (9.0-12.0) H 04/22/24 06:42 INR 1.8 (0.9-1.1) H 04/22/24 06:42 APTT 31 Seconds (21-31) 04/21/24 16:13 Blood Type A Positive 04/21/24 16:13 Antibody Screen NEGATIVE 04/21/24 16:13 Electrocardiogram Date: 04/21/24 DICTATED BY: Rafael Sky MD Test Reason : Blood Pressure : */* mmHG Vent. Rate : 97 BPM Atrial Rate : 97 BPM P-R Int : 158 ms QRS Dur : 92 ms QT Int : 410 ms P-R-T Axes : 66 73 55 degrees QTcB Int : 520 ms Normal sinus rhythm Prolonged QT Abnormal ECG When compared with ECG of 10-Mar-2024 08:45, No significant change was found
[2024-04-22] MEDS: SODIUM CHLORIDE 0.9% 500 ML IV SCH (14:34)
--- NOTE | 2024-04-22 15:37 | GI REPORT ---
[facility] Patient: ADONIS PENNY : 1990 Sex at : Male Age: 33 Years Procedure: Upper GI endoscopy Date: 04/22/2024 Attending Physician: Brayan Barnes MD Referring MD: Referred Self Indications: - Melena - Recent gastrointestinal bleeding Medications: - Monitored Anesthesia Care Complications: - No immediate complications. Estimated Blood Loss: - Estimated blood loss: None. - Estimated blood loss was minimal. Procedure: - Prior to the procedure, a History and Physical was performed, and patient medications and allergies were reviewed. The patient's tolerance of previous anesthesia was also reviewed. The risks and benefits of the procedure and the sedation options and risks were discussed with the patient. All questions were answered, and informed consent was obtained. Prior Anticoagulants: The patient has taken no anticoagulant or antiplatelet agents. ASA Grade Assessment: III - A patient with severe systemic disease. After reviewing the risks and benefits, the patient was deemed in satisfactory condition to undergo the procedure. - The egd scope was introduced through the mouth and advanced to the third part of the duodenum. - The upper GI endoscopy was accomplished without difficulty. - The patient tolerated the procedure well. Findings: - Grade I varices were found in the lower third of the esophagus. - Severe portal hypertensive gastropathy was found in the entire examined stomach. areas of stomach oozed on air insufflation and this is likely the source of melena. NO ACTIVE BLEEDING NOTED. - The examined duodenum was normal. Impression: - Grade I esophageal varices. - Portal hypertensive gastropathy. - areas of stomach oozed on air insufflation and this is likely the source of melena. NO ACTIVE BLEEDING NOTED. - Normal examined duodenum. - No specimens collected. Recommendation: - Discharge patient to home (ambulatory). - Resume previous diet. - Continue present medications. - Await pathology results. - Return to primary care physician as previously scheduled. - Patient has a contact number available for emergencies. The signs and symptoms of potential delayed complications were discussed with the patient. Return to normal activities tomorrow. Written discharge instructions were provided to the patient. - Needs ETOH cessation, If bp tolerates, restart nadolol, Can d/c ppi bid and octreotide. Start prednisolone or prednisone 40 for ETOH hepatitis with MDF 38. Procedure Code(s): - 15928, Esophagogastroduodenoscopy, flexible, transoral; diagnostic, including collection of specimen(s) by brushing or washing, when performed (separate procedure) Diagnosis Code(s): - K92.1, Melena (includes Hematochezia) - K92.2, Gastrointestinal hemorrhage, unspecified - I85.00, Esophageal varices without bleeding - K76.6, Portal hypertension - K31.89, Other diseases of stomach and duodenum CPT(R) - 202 copyright [employer]. All Rights Reserved. The CPT codes, CCI edits and ICD codes generated are intended as suggestions and were generated based on input data. These codes are preliminary and upon aerodynamics teacher review may be revised to meet current compliance and payer requirements. The provider is responsible for the final determination of appropriate codes, and modifiers. Brayan Barnes MD This document has been electronically signed. Note Initiated:04/22/2024 Note Completed:04/22/2024 3:36 PM [id number]
[2024-04-22] MEDS: LIDOCAINE 2% 2 ML VIAL/AMP(20MG/ML) INFIL ONE (15:57)
[2024-04-22] MEDS: PROPOFOL IV EMULSION 10 MG/ML 20 ML VIAL IV ONE ×2 (15:57)
[2024-04-22] MEDS: nadoloL 40 MG TAB PO SCH (16:16)
[2024-04-22] MEDS ORDERED: PROCHLORPERAZINE 5 MG in SYRINGE 4 ML IV PRN (17:07)
--- NOTE | 2024-04-22 17:10 | Anesthesiology Progress Note ---
Date of Service April 22, 2024 Anesthesia Post Procedure Vital Signs Vital Signs: Temp Pulse Pulse Resp BP Pulse Ox O2 Del Method 04/22/24 16:00 67 04/22/24 15:54 66 16 163/110 H 96 Room Air 04/22/24 15:33 74 16 166/97 H 97 Room Air 04/22/24 15:18 92 H 16 124/84 96 Room Air 04/22/24 14:24 36.9 C 87 16 135/95 96 Room Air 04/22/24 11:27 36.5 C 79 16 149/81 H 96 Room Air 04/22/24 09:01 36.9 C 72 14 159/75 H 94 Room Air 04/22/24 08:00 82 04/22/24 07:48 Room Air 04/22/24 03:15 37.1 C 97 H 18 156/78 H 98 Room Air 04/21/24 23:56 37 C 100 H 18 108/70 96 Room Air 04/21/24 21:54 92 H 04/21/24 20:04 100 H 04/21/24 20:00 Room Air 04/21/24 19:56 37 C 93 H 16 127/87 98 Room Air Pain Intensity Medial Abdomen: Pain Intensity: 4 Transfer of Care Handoff Completed per policy Notes Mental Status: alert / awake / arousable Patient Amnestic to Procedure: Yes Nausea / Vomiting: adequately controlled Pain: adequately controlled Airway Patency, RR, SpO2: stable & adequate BP & HR: stable & adequate Hydration State: stable & adequate Anesthetic Complications: no major complications apparent
[2024-04-22] MEDS: CALCIUM GLUCONATE 1,000 MG/60 ML BAG IV SCH (18:19)
[2024-04-22] MEDS: PANTOprazole 40 MG TAB PO SCH (20:03)
[2024-04-23 06:32] LABS: Basophils # (auto) 0.05 K/uL (0.00-0.20); Basophils % (auto) 0.8 %; Eosinophils # (auto) 0.24 K/uL (0.00-0.50); Eosinophils % (auto) 3.8 %; Hematocrit (blood only) 38.8 % (42.0-52.0); Hemoglobin 13.3 g/dl (14.0-18.0); Immature Granulocytes # (auto) 0.02 K/uL (0.01-0.20); Immature Granulocytes % (auto) 0.3 %; Lymphocytes # (auto) 2.04 K/uL (1.20-3.40); Lymphocytes % (auto) 32.3 %; Mean Corpuscular Hemoglobin 32.4 pg (25.0-34.0); Mean Corpuscular Hgb Conc 34.3 g/dL (32.0-36.0); Mean Corpuscular Volume 94.4 fL (80.0-100.0); Mean Platelet Volume 11.4 fL (9.4-12.4); Monocytes # (auto) 0.38 K/uL (0.11-0.59); Neutrophils # (auto) 3.59 K/uL (1.40-6.50); Neutrophils % (auto) 56.8 %; Platelet Count 46 K/uL (130-400); RDW Standard Deviation 59.4 fL (36.4-46.3); Red Blood Count 4.11 M/uL (4.70-6.10); White Blood Count 6.32 K/ul (4.8-10.8)
[2024-04-23 06:52] LABS: Albumin Globulin Ratio 1.2 (0.9-2); BUN Creatinine Ratio 12.1 (10-20); Calcium 9.2 mg/dl (8.6-10.3); Creatinine Clr Calc Pharmacy 194.5 ml/min; Globulin 3.3 gm/dl (2.5-4.0); Magnesium 1.8 mg/dl (1.7-2.4); Phosphorus 2.1 mg/dl (2.5-4.9); Potassium 3.9 mmol/L (3.5-5.1); Total Protein 7.3 gm/dl (6.0-8.3)
[2024-04-23 06:57] LABS: Folate (Folic Acid),Ser orPlas 16.8 ng/ml (>5.38)
[2024-04-23 06:58] LABS: Ferritin 290.3 ng/ml (8-388)
--- NOTE | 2024-04-23 08:09 | Ultrasound Report ---
EXAM: US liver CLINICAL HISTORY: CIRRHOSIS. Elevated liver enzymes. TECHNIQUE: Limited ultrasound of the liver and gallbladder was performed in greyscale and Doppler. Multiple images were obtained in transverse and longitudinal planes. COMPARISON: Previous CT study dated 02/08/2024 FINDINGS: Suboptimal visualization due to gaseous distension Liver: Liver size: enlarged (19.9cm in LS) With coarse echotexture, irregular borders. Heterogeneous area measuring about 5.5x8cm No evidence of focal lesions, cysts, or masses. Hepatic vasculature appears normal. Gallbladder: Gallbladder size: mildly distended (11.4cm in length) Gallstones and sludge seen Mild wall thickening (3.6mm) with edema No pericholecystic fluid noted. No evidence of gallbladder wall edema or signs of acute cholecystitis. Biliary Tree: Common bile duct diameter: 5.5mm. Common bile duct is within normal limits in caliber and not dilated. No evidence of biliary obstruction. Right kidney: no hydronephrosis. IMPRESSION: 1. Enlarged liver with coarse texture and irregular borders, suggesting chronic parenchymal liver disease. 2. Right lobe 5.5 x 8cm heterogeneous area, advised of clinical correlation and Triphasic CT. 3. Mild gall bladder distension, with sludge and stone, wall thickening with edema. 4. No interval changes. Electronically signed by Roni Londono 04-23-2024 08:09 AM
--- NOTE | 2024-04-23 09:59 | Gastroenterology Progress Note ---
Date of Service April 23, 2024 Assessment & Plan (1) Esophageal varices: (2) Cirrhosis: (3) Alcohol use disorder, severe, dependence: Plan - recommend continue with prednisolone 40mg daily and nadolol 40mg daily. - continue with protonix 40mg bid. - recommended that he cease all etoh use. - patient would benefit with discharge to rehab if patient agreeable. Admission and Anticipated Discharge Date Admission Date: April 21, 2024 Supervising Physician Co-Signing Physician Notes I personally saw and examined the patient. I have reviewed the chart and agree with the documentation provided by the COVER CREASER including discussion about the assessment, treatment and plan. Briefly, hemoglobin is stable and no further bleeding. Agree with prednisone 40 mg for 3 to 4 weeks given acute alcoholic hepatitis with Madrey's discrimination function greater than 32. He should follow-up with primary care in 1 to 2 weeks. he needs AA and rehab to help him with alcohol abstinence. Can we discharge him on trazodone for sleep given his complaints about this. Subjective Patient tells me that he feels well now. no further nausea, vomiting. no abdominal pain. he has not moved his bowels but has not eaten yet. EGD 04/22 with grade I esophageal varices, portal hypertensive gastropathy, areas of stomach oozed to insufflation but no bleeding. He has started prednisolone 40mg daily and nadolol 40mg daily. Review of Systems Review of Systems: All systems reviewed & are unremarkable except as noted in HPI & below Physical Exam Constitutional: WD/WN, vitals as above Respiratory: normal respiratory effort, lungs clear to auscultation Cardiovascular: Rate/Rhythm: regular rate and regular rhythm Gastrointestinal (Abdomen): normal bowel sounds, soft, nontender, no hepatosplenomegaly Psychiatric: Orientation: alert and oriented x 3 Affect: euthymic affect Results & Data Results & Data Vital Signs (Past 12 Hours) Vital Signs Temp Pulse Resp BP Pulse Ox O2 Del Method 04/23/24 09:09 Room Air 04/23/24 08:58 165/100 H 04/23/24 07:28 98.1 F 77 19 193/123 H 97 Room Air 04/23/24 03:36 98.6 F 64 18 175/95 H 98 Room Air 04/22/24 23:00 98.2 F 66 20 170/102 H 96 Room Air Coding Level of Care Code 49366 SUB INP/OBS CARE 03/28MIN Diagnoses Esophageal varices I85.00 Cirrhosis K74.60 Hepatic cirrhosis type: alcoholic cirrhosis Alcohol use disorder, severe, dependence F10.20 (2) Cirrhosis Hepatic cirrhosis type: alcoholic cirrhosis
[2024-04-23 10:44] VITALS: BP 173/104; RESP 17; TEMP 98.2; O2SAT 98
[2024-04-23] MEDS: POT PHOSPHATE MONOBASIC W/ SOD TAB PO SCH (10:45)
[2024-04-23] MEDS: prednisoLONE sod phosphate 15 MG/5 ML PO SCH (10:45)
--- NOTE | 2024-04-23 12:24 | Discharge Summary ---
Discharge Summary Date of Service April 23, 2024 Principal Dx & Hospital Course #1 = Principal Diagnosis (1) Gastrointestinal hemorrhage with hematemesis: (2) Alcoholic gastritis with bleeding: (3) Portal hypertensive gastropathy: (4) Esophageal ulceration: (5) Alcohol withdrawal: (6) Alcohol intoxication: (7) Alcoholic cirrhosis: (8) Thrombocytopenia: (9) Alcohol use disorder, severe, dependence: (10) OCD (obsessive compulsive disorder): (11) Bipolar 1 disorder: (12) Tobacco abuse: Plan Pt is a 33-year-old male with past medical history significant for ongoing alcoholism, alcoholic cirrhosis of the liver, esophageal varices, portal hypertensive gastropathy, past compression fraction of L1 and T12 vertebrae, chronic midline thoracic pain, obsessive-compulsive disorder, medical marijuana use and generalized anxiety disorder who presented with concern for hematemesis. Acute GI Bleed Hematemesis Acute on Chronic Anemia Pt presenting with episodes of hematemesis at home Hgb of 13 on admission, downtrended to low of 11 Anemia panel with normal/supplemented iron, b12 and folate levels treated with PPI drip, IV octreotide GI consulted, recommended/stated the following: -s/p EGD on 04/22/24 -EGD noting the following findings: "...Grade I esophageal varices.Portal hypertensive gastropathy. areas of stomach oozed on air insufflation and this is likely the source of melena. NO ACTIVE BLEEDING NOTED. Normal examined duodenum..." - ETOH cessation -restart nadolol if blood pressure tolerates it -Can d/c ppi bid and octreotide. -Start prednisolone or prednisone 40 for ETOH hepatitis with MDF 38 Nadolol restarted PPI drip discontinued and started on pantoprazole 40mg BID Started on steroids as noted above, concern for starting in setting of acute GI bleed Advanced diet as tolerated On the day of discharge, pt's hgb was 13.3 He was discharged per GI recs on prednisone 40mg daily x 30 days (prednisolone was too costly), nadolol 40mg daily and pantoprazole 40mg daily. Given he notes his insomnia causes him to drink so he can fall asleep, he was also discharged with trazodone 50mg to be taken prn qhs to help with sleep. Transaminitis Alcoholic hepatitis Cirrhosis Chronic Alcohol Use Liver enzymes significantly elevated, INR elevated US liver ordered Alcohol level elevated Ammonia level pending AWSS protocol with gabapentin and Ativan GI to start steroids as noted above for alcohol hepatitis, concern for starting in setting of acute GI bleed Nadolol restarted, home diuretics restarted on discharge Continue folate and thiamine supplements He was discharged per GI recs on prednisone 40mg daily x 30 days (prednisolone was too costly), nadolol 40mg daily and pantoprazole 40mg daily. Given he notes his insomnia causes him to drink so he can fall asleep, he was also discharged with trazodone 50mg to be taken prn qhs to help with sleep. Close GI/Hepatology followup after discharge. Thrombocytopenia Likely in setting of chronic alcohol use PCP follow up Hypokalemia Hypocalcemia Hypomagnesemia Hypophosphatemia Levels occasionally decreased Repleted as needed Phos level low on day of discharge at 2.1, discharged with 1 day of phosphorus supplements to take at home. PCP followup for continued monitoring. Elevated lipase levels Pt with chronically elevated lipase levels Last CT abd/pelvis in Feb [address] evidence of acute pancreatitis at that time, lipase levels higher at that time as well Pt has had ~4 CT scans of his abdomen in the last year Will defer on further CT imaging at this time GI followup Prolonged QTC EKG on admission noting NSR and prolonged qtc of 520 Avoid qtc prolonging medications as able, zofran discontinued Compazine ordered prn for nausea Continue to monitor qtc after discharge Insomnia Given he notes his insomnia causes him to drink so he can fall asleep, he was also discharged with trazodone 50mg to be taken prn qhs to help with sleep. PCP followup Notes For Next Care Provider Consider followup for insomnia as per pt it triggers the alcohol use Please ensure close GI/Hepatology followup after discharge Continue to monitor H/H and electrolytes after discharge Medication Changes From Visit Per GI: prednisone 40 mg daily for 30 days per GI Nadolol 40 mg daily Pantoprazole 40 mg twice daily Phosphorus supplements for 1 day Trazodone nightly as needed for insomnia Admission HPI Per Admitting Provider Patient is a 33-year-old gentleman with known alcohol cirrhosis and alcohol misuse. Presented to the emergency room with acute onset of hematemesis and melanotic stools. Patient had witnessed hematemesis here in the ED. Laboratory studies revealed findings consistent with his known hepatic cirrhosis. Hemoglobin was essentially at his baseline. GI was contacted in the ED and recommended starting octreotide drip along with IV Protonix. He was referred to our service for further evaluation. Patient states that since I had seen him in February he was doing fairly well but fell off the wagon the last week or 2. He reports drinking 1-2 fifths of vodka a day. He thinks his last drink was a day or 2, however when confronted with the fact that his alcohol level was still greater than 100 he admits that the last 24 hours so having somewhat of a blur and he may have continued to drink. He denies any fever or chills. Does admit to the melena and hematemesis. Has some abdominal discomfort. No cough or cold symptoms. No new issues with his bladder. No swelling in his hands arms legs or feet. Admission Exam Per Admitting Provider Constitutional: Alert, ill in appearance, moderate distress, holding emesis bag HEENT: Mucous membranes moist. Sclera clear Neck: Soft, no adenopathy Lungs: Decreased breath sounds, no wheezes rales or rhonchi CV: S1-S2, regular, slightly tachycardic Abdomen: Soft, mild epigastric tenderness, nondistended, no guarding, no rigidity Extremities: No significant edema Musculoskeletal: No significant joint tenderness Neuro: No focal deficits Psych: Cooperative, normal mood Discharge Exam General: Alert, oriented. No acute distress Neuro: No gross deficits, no noted tremors HEENT: NC/AT, eyes slightly jaundiced CV: RRR Resp: Breath sounds clear bilaterally, no increased effort of breathing Abdomen: Soft, nontender Extremities: No edema in lower extremities bilaterally. Updated Medication List Medication Instructions Recorded Confirmed Type paliperidone 9 mg tablet,extended 9 mg PO QAM 10/14/23 04/21/24 History release 24 hr buspirone 5 mg tablet 5 mg PO TID PRN Anxiety 04/21/24 04/21/24 History furosemide 40 mg tablet 40 mg PO BID 04/21/24 04/21/24 History gabapentin 300 mg capsule 300 mg PO UD 04/21/24 04/21/24 History spironolactone 25 mg tablet 25 mg PO QAM 04/21/24 04/21/24 History nadolol 40 mg tablet 40 mg PO QAM #30 tabs 04/23/24 Rx pantoprazole 40 mg tablet,delayed 40 mg PO BID #60 tabs 04/23/24 Rx release prednisone 20 mg tablet 40 mg (2 x 20 mg) PO DAILY #60 tabs 04/23/24 Rx sodium di- and 2 tab PO QID #8 tabs 04/23/24 Rx monophosphate-potassium phos monobasic 250 mg tablet (Phospha Neutral) trazodone 50 mg tablet 50 mg PO HS PRN insomnia #30 tabs 04/23/24 Rx Hospital Stay Data Consultations 04/21/24 17:22 ED Decision to Admit Stat 04/21/24 19:56 Consult Gastroenterology Routine Procedures Performed Operation Date: 04/22/24 16:45 Actual Procedures p Esophagogastroduodenoscopy - Brayan Barnes MD Diagnostic Imagining Performed 04/23/24 US liver Routine Liver Ultrasound 04/23/24 00:00 EXAM: US liver CLINICAL HISTORY: CIRRHOSIS. Elevated liver enzymes. TECHNIQUE: Limited ultrasound of the liver and gallbladder was performed in greyscale and Doppler. Multiple images were obtained in transverse and longitudinal planes. COMPARISON: Previous CT study dated 02/08/2024 FINDINGS: Suboptimal visualization due to gaseous distension Liver: Liver size: enlarged (19.9cm in LS) With coarse echotexture, irregular borders. Heterogeneous area measuring about 5.5x8cm No evidence of focal lesions, cysts, or masses. Hepatic vasculature appears normal. Gallbladder: Gallbladder size: mildly distended (11.4cm in length) Gallstones and sludge seen Mild wall thickening (3.6mm) with edema No pericholecystic fluid noted. No evidence of gallbladder wall edema or signs of acute cholecystitis. Biliary Tree: Common bile duct diameter: 5.5mm. Common bile duct is within normal limits in caliber and not dilated. No evidence of biliary obstruction. Right kidney: no hydronephrosis. IMPRESSION: 1. Enlarged liver with coarse texture and irregular borders, suggesting chronic parenchymal liver disease. 2. Right lobe 5.5 x 8cm heterogeneous area, advised of clinical correlation and Triphasic CT. 3. Mild gall bladder distension, with sludge and stone, wall thickening with edema. 4. No interval changes. Electronically signed by Roni Londono 04-23-2024 08:09 AM Pending Results Patient Have Any Pending Studies at Discharge: No Discharge Instructions Given to Patient (Per Discharging Provider) Esdras, You were admitted and treated for a suspected gastrointestinal bleed. You were seen by the tractor trailer mechanic who performed a procedure called an EGD. It noted that while you had evidence of old bleeding, there was no acute GI bleed. Your hemoglobin has remained stable. Please continue with your home pantoprazole 40 mg twice a day. That prescription has been renewed for you and sent to your pharmacy. Gastroenterology is also recommending that you continue with your medication nadolol. Please take it as prescribed, it was renewed for you. They also would like you to continue with the prescribed steroid prednisone 40mg daily to help with your alcoholic hepatitis. It is very important that you do your best to stay away from alcohol use after discharge. We strongly encourage an inpatient alcohol rehab facility stay. We are also discharging you home with the medication trazodone 50mg nightly to take as needed to help with your sleep. Your phosphorus level was also low. Discharging you home with a day of supplements to help with that as well. Please keep close follow up with your primary care provider and tractor trailer mechanic/filtration supervisor after discharge. Please do not hesitate to come back to the emergency room if your symptoms worsen or return. It was a pleasure taking care of you while you were here. Total Time Total Time Spent Total Time Spent (In Minutes): 60
[2024-04-23 12:48] VITALS: PULSE 74
[2024-04-24] MEDS ORDERED: GABAPENTIN 600 MG TAB PO SCH
[2024-04-25] MEDS ORDERED: GABAPENTIN 600 MG TAB PO SCH (12:00)
== END 2024-04-23 14:04 | disposition home or self-care (01) | DRG 378 ==
LOC: ED 16:05 → 2S 18:06 → INTOOBSV 18:06 → SUATTDRO 18:06 → 2S 19:31

== ENCOUNTER 2024-07-04 03:14 | Inpatient (IN) ==
--- OUTSIDE RECORDS SUMMARY | 2024-07-04 03:22 | External Medical Summary | Summary of Care ---
Author Name Unknown Organization [facility] Address [address] [place] [address] Phone [phone] Care Team Providers Care Skatesman Name Role Phone Tami Upton MD Primary Care Provi elena Reason for Visit * Reason Onset Date Comments Appointment 07/01/2024 Encounter Details Date Type Department Care Team (Late st Contact Info) Description 07/01/2024 Telephone [facility] [address], [place] [id number] [place], [facility] [address] [place] [address] Appointment Allergies No known active allergiesdocumented as of this encounter (statuses as of 07/01/2024) Medications Folic Acid 1 MG Oral Tablet Take 1 Tablet by mouth in the morning. 30 Tablet 2 4 Active Additional Information Patient not taking.Reported on 05/01/2024 Melatonin 10 MG Oral Tablet Chewable Take by mouth. Activ e Paliperidone ER 9 MG Oral Tablet Extended [...] THE EVENING 90 Capsule 5 5 Active Gerardo-Phos 250 Neutral [phone] MG Oral Tablet Take 2 Tablets by mouth in the morning and 2 Tablets at noon and 2 Tablets in the evening and 2 Tablets before bedtime. 5 Active predniSONE 20 MG Oral Tablet (Deltasone) Take 2 Tablets by mouth in the morning. 5 Active traZODone HCl 50 MG Oral Tablet (Desyrel) Take 1 Tablet by mouth at bedtime. 5 Active documented as of this encounter (statuses as of 07/01/2024) Active Problems Problem Noted Date Diagnosed Date Hypertension goal BP (blood pressure) < 140/90 0 05/23/2024 Affective psychosis, bipolar 04/08/2024 Chronic midline thoracic [...] as of this encounter (statuses as of 07/01/2024) Resolved Problems Problem Noted Date Diagnosed Date [...] as of this encounter (statuses as of 07/01/2024) Immunizations Name Administration Dates Next Due Pneumococcal Conjugate Vaccine, 20-valent (Prevn ar20) 01/31/2023 Seasonal Influenza, PF, 6 M & above, IM , (FluLaval or Fluzone) 11/24/2022 TDAP (age 10 and older)(Boostrix) 01/31/2023 TDAP, Age 7 and older, IM (Adacel) 08/08/2011 documented as of this encounter Social History Tobacco Use Types Packs/Day Years Used Date Smoking Tobacco: Every Day Cigarettes 0.5 21.3 Started: 2003 Smokeless Tobacco: Never Alcohol Use Standard Drinks/Week Comments Not Currently 0 (1 standard drink = 0.6 oz pure alcohol) alcohol use disorder, last use before last ED visit PHQ-2 Answer Date Recorded PHQ Adult Total Score 9 05/18/2024 Hunger Vital Sign Answer Date Recorded Within [...] Industry 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 No answer. documented in this encounter Plan of Treatment Upcoming Encounters Date Type Department Care Team (Late st Contact Info) Description 09/08/2024 2:40 PM EDT Office Visit Hepatology, [facility] [address] [place] [phone] Katty Hernandes DO [address] [place] [address] 12/10/2024 8:15 AM EDT Imaging Radiology [facility] [address] [place] [phone] Scheduled Procedures Name Priority Associated Diagnoses Date/Ti me ESOPHAGOGASTRODUODENOSCOPY ( EGD), FLEXIBLE, TRANSORAL, ENDOSCOPIC ULTRASOUND Recall Alcohol abuse Hepatic fibrosis ESOPHAGOGASTRODUODENOSCOPY ( EGD), FLEXIBLE, TRANSORAL, DIAGNOSTIC Recall Alcohol abuse Hepatic fibrosis Health Maintenance Due Date Last Done Comments Albumin/Creatinine Ratio 2006 COVID-19 Vaccine ( season) 2023 Influenza Vaccine (FLU shot) (Season Ended) 2024 11/24/2022 GFR 05/01/2025 05/01/2024, 02/01, 12/06/2023, Additional history exists Diabetes Screening 05/01/2027 05/01/2024, 1 04/15/2023, 12/06/2023, Additional history exists DTap/Tdap Vaccines (8 - [...] Advance Directives occurred with: Patient Care Teams Skatesman Relationship Specialty Start Date End Date Tami Upton MD [address] [place] [phone] PCP - General Family Medicine 04/14/24 documented as of this encounter
--- OUTSIDE RECORDS SUMMARY | 2024-07-04 03:23 | External Medical Summary | Summary of Care ---
Author Name Unknown Organization [facility] Address [address] [place] [address] Phone [phone] Care Team Providers Care Digital Publishing Specialist Name Role Phone Tami Upton MD Primary Care Provi elena Reason for Visit * Reason Onset Date Comments Test Results 06/10/2024 Encounter Details Date Type Department Care Team (Late st Contact Info) Description 06/10/2024 Telephone Hepatology, [facility] [address] [place] [phone] Katty Hernandes DO [address] [place] [phone] Test Results Allergies No known active allergiesdocumented as of this encounter (statuses as of 06/18/2024) Medications Folic Acid 1 MG Oral Tablet [...] as of this encounter (statuses as of 06/18/2024) Active Problems Problem Noted Date Diagnosed Date [...] as of this encounter (statuses as of 06/18/2024) Resolved Problems Problem Noted Date Diagnosed Date [...] as of this encounter (statuses as of 06/18/2024) Immunizations Name Administration Dates Next Due DTaP Dipth/Tet/Acell Pertussis (Infanrix), Peds 08/22/1993,02/19/1990,03/27/1989,1988,1988 HIB PRP-T, 4 Dose, PF, IM (H iberix, ActHib) 11/27/1989 Hepatitis B, 0-19 yrs 10/11/1998,03/21/1998,01/02 MMR - Measles/Mumps/Rubella Vaccine 08/22/1993,1 OPV - Polio Virus Vaccine (Oral) 994,02/19/1990,1988,1988 Pneumococcal Conjugate Vacci ne, 20-valent ([id number]) 01/31/2023 Seasonal Influenza, PF, 6 M & [...] 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 LM to return call or check My Chart for message. * Telephone Encounter - Katty Hernandes DO - 06/10/2024 2:01 PM EDT Please let patient know recent abdominal ultrasound reviewed. No liver lesions seen. Needs another ultrasound in 6 months for ongoing HCC screening. Please arrange repeat ultrasound 12/2024. Order is in. Katty Hernandes DO documented in this encounter Plan of Treatment Upcoming Encounters Date Type Department Care Team (Late st Contact Info) Description 07/01/2024 2:30 PM EDT Telemedicine [facility] [address] [place] [phone] [facility] [address] [place] [address] 09/08/2024 2:40 PM EDT Office Visit Hepatology, [facility] [address] [place] [phone] Katty Hernandes DO [address] [place] [address] 12/10/2024 8:15 AM EDT Imaging Radiology [facility] [address] [place] [phone] Scheduled Orders Name Type Priority Associated Diagnoses Orde r Schedule US ABDOMEN LIMITED Medical Imaging Routine Alcoholic cirrhosis of liver without ascites (HCC) Expected: 12/10/2024, Expires: 07/10/2025 Scheduled Procedures Name Priority Associated Diagnoses Date/Ti [...] Directives occurred with: Patient Care Teams Digital Publishing Specialist Relationship Specialty Start Date End Date Tami Upton MD [address] [place] [phone] PCP - General Family Medicine 04/14/24 documented as of this encounter
--- OUTSIDE RECORDS SUMMARY | 2024-07-04 03:23 | External Medical Summary | Summary of Care ---
Author Name Unknown Organization [facility] Address [address] [place] [address] Phone [phone] Care Team Providers Care Model Maker Apprentice Name Role Phone Tami Upton MD Primary Care Provi elena Reason for Visit * Reason Onset Date Comments Test Results 06/10/2024 Encounter Details Date Type Department Care Team (Late st Contact Info) Description 06/10/2024 Telephone Hepatology, [facility] [address] [place] [phone] Katty Hernandes DO [address] [place] [phone] Test Results Allergies No known active allergiesdocumented as of this encounter (statuses as of 06/10/2024) Medications Folic Acid 1 MG Oral Tablet [...] as of this encounter (statuses as of 06/10/2024) Active Problems Problem Noted Date Diagnosed Date [...] as of this encounter (statuses as of 06/10/2024) Resolved Problems Problem Noted Date Diagnosed Date [...] as of this encounter (statuses as of 06/10/2024) Immunizations Name Administration Dates Next Due DTaP Dipth/Tet/Acell Pertussis (Infanrix), Peds 08/22/1993,02/19/1990,03/27/1989,1988,1988 HIB PRP-T, 4 Dose, PF, IM (H iberix, ActHib) 11/27/1989 Hepatitis B, 0-19 yrs 10/11/1998,03/21/1998,01/02 MMR - Measles/Mumps/Rubella Vaccine 08/22/1993,1 OPV - Polio Virus Vaccine (Oral) 994,02/19/1990,1988,1988 Pneumococcal Conjugate Vacci ne, 20-valent ([id number]) 01/31/2023 Seasonal Influenza, PF, 6 M & [...] 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 on file Not on file documented as of this encounter Miscellaneous Notes * Telephone Encounter - Katty Hernandes DO [...] Care Team (Late st Contact Info) Description 06/17/2024 2:30 PM EDT [facility] [address] [place] [phone] [facility] [address] [place] [phone] 07/01/2024 2:30 PM EDT Telemedicine [facility] [place] [address] [place] [address] Jovi [place], [employer]IP[employer] VAL[employer] MECH[employer] [address] [place] [address] 09/08/2024 2:40 PM EDT Office Visit Hepatology, [facility] [address] [place] [phone] Katty Hernandes DO [address] [place] [address] Scheduled Orders Name Type Priority Associated Diagnoses [...] Advance Directives occurred with: Patient Care Teams Model Maker Apprentice Relationship Specialty Start Date End Date Tami Upton MD [address] [place] [phone] PCP - General Family Medicine 04/14/24 documented as of this encounter
--- OUTSIDE RECORDS SUMMARY | 2024-07-04 03:23 | External Medical Summary | Summary of Care ---
Author Name Unknown Organization [facility] Address [address] [place] [address] Phone [phone] Care Team Providers Care Plumbing Assembler Name Role Phone Tami Upton MD Primary Care Provi elena Reason for Visit * Reason Onset Date Comments Test Results 06/10/2024 Encounter Details Date Type Department Care Team (Late st Contact Info) Description 06/10/2024 Telephone Hepatology, [facility] [address] [place] [address] Katty Hernandes DO [address] [place] [phone] Test Results Allergies No known active allergiesdocumented [...] (Oral) 994,02/19/1990,1988,1988 Pneumococcal Conjugate Vacci ne, 20-valent ([id number]) 01/31/2023 Seasonal Influenza, PF, 6 M & [...] 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 [...] Info) Description 07/01/2024 2:30 PM EDT Telemedicine [facility] [address] [place] [address] [facility] [address] [place] [address] 09/08/2024 2:40 PM EDT Office Visit Hepatology, [facility] [address] [place] [phone] Katty Hernandes DO [address] [place] [address] 12/10/2024 8:15 AM EDT Imaging Radiology [facility] [address] [place] [phone] Scheduled Orders Name Type Priority Associated Diagnoses [...] Advance Directives occurred with: Patient Care Teams Plumbing Assembler Relationship Specialty Start Date End Date Tami Upton MD [address] [place] [phone] PCP - General Family Medicine 04/14/24 documented as of this encounter
--- OUTSIDE RECORDS SUMMARY | 2024-07-04 03:23 | External Medical Summary | Summary of Care ---
Author Name Unknown Organization [facility] Address [address] [place] [address] Phone [phone] Care Team Providers Care Cargo Mate Name Role Phone Tami Upton MD Primary Care Provi elena Reason for Visit * Reason Onset Date Comments Hospital Follow-Up Patient is he re today for hospital follow up from [facility] 04/21-04/23Patient was admitted for upper GI bleedPatient has no follow up concerns or symptoms Hospital Follow-Up 05/01/2024 Encounter Details Date Type Department Care Team (Latest Contact Info) Description 05/01/2024 9:20 AM EST Office Visit [address] [phone] Katherine Schmitt PA-C [address] [place] [phone] Hospital discharge follow-up*; Alcohol use disorder; Other insomnia; Gastrointestinal hemorrhage, unspecified gastrointestinal hemorrhage type; Alcoholic cirrhosis of liver without ascites (HCC); Hypertension goal BP (blood pressure) < 140/90 Allergies No known active allergiesdocumented as of this encounter (statuses as of 05/23/2024) Medications Folic Acid 1 MG Oral Tablet Take 1 Tablet by mouth in the morning. 30 Tablet 2 06/26/19 24 Active Additional Information Patient not taking.Reported on [...] EVENING 90 Capsule 5 04/13/19 25 Active Gerardo-Phos 250 Neutral 155-852-130 MG Oral Tablet Take 2 Tablets by mouth in the morning and 2 Tablets at noon and 2 Tablets in the evening and 2 Tablets before bedtime. 04/23/19 25 Active predniSONE 20 MG Oral Tablet (Deltasone) Take 2 Tablets by mouth in the morning. 04/23/19 25 Active traZODone HCl 50 MG Oral Tablet (Desyrel) Take 1 Tablet by mouth at bedtime. 04/23/19 25 Active Celecoxib 200 MG Oral Capsule (CeleBREX) Take 1 Capsule by mouth in the morning. 20 Capsule 2 09/17/19 24 025 Discontinued documented as of this encounter (statuses as of 05/23/2024) Active Problems Problem Noted Date Diagnosed Date [...] as of this encounter (statuses as of 05/23/2024) Resolved Problems Problem Noted Date Diagnosed Date [...] as of this encounter (statuses as of 05/23/2024) Immunizations Name Administration Dates Next Due Pneumococcal Conjugate Vaccine, 20-valent (Prevn ar20) 01/31/2023 Seasonal Influenza, PF, 6 M & above, IM , (FluLaval or Fluzone) 11/24/2022 TDAP (age 10 and older)(Boostrix) 01/31/2023 TDAP, Age 7 and older, IM (Adacel) 08/08/2011 documented as of this encounter Social History Tobacco Use Types Packs/Day Years Used Date Smoking Tobacco: Every Day Cigarettes 0.5 21.2 Started: 2003 Smokeless Tobacco: Never Alcohol Use [...] 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 file Not on file Not on file documented as of this encounter Last Filed Vital Signs Vital Sign Reading Time Taken Comments Blood Pressure 132/71 05/01/2024 10:01 AM EST Pulse 69 05/01/2024 10:01 AM EST Temperature 36.6 °C (97.8 °F) 05/01/2024 10:[address] Respiratory Rate 16 05/01/2024 10:01 AM EST Oxygen Saturation 99% 05/01/2024 10:01 AM EST Inhaled Oxygen Concentration - - Weight 91.4 kg (201 lb 6.4 oz) 05/01/2024 10:01 AM EST Height - - Body Mass Index 29.74 04/08/2024 3:24 PM EST documented in this encounter Patient Instructions * Patient Instructions* Katherine Schmitt PA-C - 05/01/2024 10:11 AM EST Taking Medicine Safely Medicine is given to help treat or prevent illness. But if you don't take it correctly, it might not help. It might even harm you. Your doctor or pharmacist can help you learn the right way to take your medicine. Listed below are some tips to help you take medicine safely. Safety Tips Have a routine for taking each medicine. Make it part of something you do each day, such as brushing your teeth or eating a meal. When you go to the hospital or your doctor's office, bring all your current medicines in their original boxes or bottles. If you can't do that, bring an up-to-date list of your medicines. Do not stop taking a prescription medicine unless your doctor tells you to. Doing so could make your condition worse. Do not share medicines. Let your doctor and pharmacist know of any allergies you have. Taking prescription medicines with alcohol, street drugs, herbs, supplements, or even some vsax-rkj-fmlwlri medicines can be harmful. Talk to your doctor or pharmacist before using any of these things while taking a prescription medicine. When filling your prescriptions, try using the same pharmacy for all your medicines. If not, let the pharmacist know what medicines you are already on. Keep medicines out of the reach of children and pets. Do not use medicine that has or that doesn't look or smell right. Get rid of it properly. To find out the right way to get rid of medicine: Call your [facility] or [facility]'s household trash and recycling service and ask if a drug take-back program is available in your community. Call your local pharmacy and ask the right way to get rid of the medicine. Go to http://www.fda.gov/ForConsumers/ConsumerUpdates/jhv127230 to learn how to get rid of medicines safely. Using Generic Medicines Medicines have brand names and generic (chemical) names. When a medicine is first made, it is sold only under its brand name. Later, it can be made and sold as a generic. Generic medicines cost less than brand-name medicines and most work just as well. Most people can use the generic medicine instead of the brand-name medicine, unless their doctor says otherwise. © 1244-6851 [employer], [address] [place] [address], [place] [address]. All rights reserved. This information is not intended as a substitute for professional medical care. Always follow your healthcare professional's instructions. Coping with Your Diagnosis of a Chronic Health Condition If you have a chronic health condition, you have a problem that may not go away over time. Heart disease, asthma, arthritis, and diabetes are just a few of the chronic conditions that exist. Right now, these conditions have no known cure. But you can take an active role in managing your health. Coping with Your Diagnosis If you've just learned about your health condition, you may be angry, depressed, or afraid. Or you might feel relieved just to know what's wrong. Even if you've known about your health problem for a while, adjusting to it can be hard. But learning about your condition can help you cope. Look for books at your local library. If you have access to a computer, check the Internet. Or contact a group that focuses on your specific problem. Accepting Change Change is hard for most people. Yet right now you may be facing many changes. What you eat or the way you work may change. Your moods, and even your symptoms, might vary from day to day. Although it isn't easy, learning to accept change can help you feel more in control. Taking Control Feeling you have control can make living with your condition easier. Discuss treatment options withyour health care provider. The more you know, the more active you can be in your care. Moving Forward You may wonder whether you will be able to do the things you've always done. That depends on your age, the condition you have, and your goals. To make the most of each day, try to build caring relationships, be active, and eat right. Also, do your best to keep a sense of humor. © 8399-1717 [place] [address]. All rights reserved. This information is not intended as a substitute for professional medical care. Always follow your healthcare professional's instructions. Taking an Active Role in Your Medicines Take the time to learn about your medicine. For instance, why are you taking it? What does it do? Work with your doctor or other health care providers to get the answers you need. Talk to your pharmacist about how to take each medicine, and ask for a fact sheet on each one. Ask Questions About Your Medicine What is the name of the medicine? Why do I need to take it? When should I take it? How should I take it: with water? with food? on an empty stomach? How much do I take? What do I do if I miss a dose? What side effects could it cause and which ones should I call the doctor about? Are there any foods or medicines I should avoid while taking this medicine? Keeping track of your medications? Name of medicine: Taken for: Dose: Time(s) to take it: Take an Active Role Fill all your prescriptions at the same pharmacy. This keeps your medicine history in one place. Talk to the pharmacist. Make sure you understand how to take each medicine. Ask for a fact sheet about each one. Tell your doctor and pharmacist about all the prescription and mgzv-zbt-nsmyzuy medicines you take.This includes vitamins and herbal remedies. Tell your doctor and pharmacist if you have any medical conditions or allergies to any medicine or food, or if you are or . Keep a list of all your medicines. Use the sample to the right as a guide for the type of information needed. © 1716-2636 [employer], [address] [place] [address], [place] [address]. All rights reserved. This information is not intended as a substitute for professional medical care. Always follow your healthcare professional's instructions. documented in this encounter Progress Notes * Katehrine Schmitt PA-C - 05/01/2024 10:09 AM EST Images from the original note were not included. Subjective Esdras Storey is a 33 year old male that presents for Hospital Follow-Up (Patient is here today for hospital follow up from [facility] 04/21-04/23/Patient was admitted for upper GI bleed/Patient has no follow up concerns or symptoms) and Hospital Follow-Up History of Present Illness Esdras, a patient with a history of alcoholism and insomnia, presents for a follow-up visit after [facility] admission for an upper GI bleed. He was admitted to [facility] onthe and discharged on the . He reports that he was vomiting blood, which was thought to bedue to his alcohol consumption. Since his discharge, he has been feeling fine. He explains that unlike most alcoholics, he does not drink for enjoyment but uses alcohol as a sleep aid due to his insomnia. Despite trying different types of sleep therapy and medications like trazodone, he has not found relief from his insomnia. Over the years, he has developed a high tolerance for alcohol, leading to heavy drinking and subsequent withdrawal symptoms. This recent episode of vomiting blood clots was a new symptom for him, leading to his hospital admission. He reports that his stomach and liver are in poor condition due to his alcohol consumption. He acknowledges that he needs to address his insomnia without resorting to alcohol. [facility] 04/21-04/23 Patient was admitted for upper GI bleed. Patient Active Problem List Diagnosis Compression fracture of L1 lumbar vertebra (HCC) Compression fracture of T12 vertebra (HCC) Cigarette smoker OCD (obsessive compulsive disorder) Other insomnia Medical marijuana use Lung nodule seen on imaging study Generalized anxiety disorder Alcohol dependence, continuous (HCC) Mixed hyperlipidemia Alcoholic cirrhosis of liver without ascites (HCC) Portal hypertensive gastropathy (HCC) 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) Chronic midline thoracic back pain Affective psychosis, bipolar (HCC) Hypertension goal BP (blood pressure) < 140/90 Current Outpatient Medications: predniSONE 20 MG Oral Tablet (Deltasone), Take 2 Tablets by mouth in the morning., Disp: , Rfl: traZODone HCl 50 MG Oral Tablet (Desyrel), Take 1 Tablet by mouth at bedtime., Disp: , Rfl: Gerardo-Phos 250 Neutral 155-852-130 MG Oral Tablet, Take 2 Tablets by mouth in the morning and 2 Tablets at noon and 2 Tablets in the evening and 2 Tablets before bedtime., Disp: , Rfl: Gabapentin 300 MG Oral Capsule (Neurontin), TAKE 1 CAPSULE BY MOUTH IN THE MORNING AND 2 IN THE EVENING, Disp: 90 Capsule, Rfl: 5 busPIRone HCl 5 MG Oral Tablet (Buspar), Take 1 Tablet by mouth 3 times a day as needed (Anxiety).,Disp: 90 Tablet, Rfl: 3 Acetaminophen 325 MG Oral Capsule, Take 500 mg by mouth every evening. One to two tabs daily., Disp: , Rfl: Furosemide 40 MG Oral Tablet (Lasix), Take 1 Tablet by mouth in the morning and 1 Tablet before bedtime., Disp: 60 Tablet, Rfl: 3 Spironolactone 25 MG Oral Tablet (Aldactone), Take 1 Tablet by mouth in the morning., Disp: 30 Tablet, Rfl: 11 Furosemide 20 MG Oral Tablet (Lasix), Take 1 Tablet by mouth daily as needed (Leg swelling)., Disp:30 Tablet, Rfl: 2 Pantoprazole Sodium 40 MG Oral Tablet Delayed Release (Protonix), Take 1 Tablet by mouth in the morning and 1 Tablet before bedtime., Disp: 60 Tablet, Rfl: 5 Nadolol 40 MG Oral Tablet (Corgard), Take 1 Tablet by mouth in the morning., Disp: 90 Tablet, Rfl: 1 Paliperidone ER 9 MG Oral Tablet Extended Release 24 Hour (Invega), Take 1 Tablet by mouth in the morning., Disp: 90 Tablet, Rfl: 3 Melatonin 10 MG Oral Tablet Chewable, Take by mouth., Disp: , Rfl: Magnesium Chloride 64 MG Oral Tablet Delayed Release (Mag-64), Take 1 Tablet by mouth in the morning and 1 Tablet before bedtime. (Patient not taking: Reported on 05/01/2024), Disp: , Rfl: Vitamin B Complex Oral Tablet, Take 1 Tablet by mouth in the morning. (Patient not taking: Reportedon 05/01/2024), Disp: , Rfl: Folic Acid 1 MG Oral Tablet, Take 1 Tablet by mouth in the morning. (Patient not taking: Reported on 05/01/2024), Disp: 30 Tablet, Rfl: 2 Review of patient's allergies indicates: No Known Allergies Objective Vitals: 05/01/24 1001 Temp: 97.8 °F (36.6 °C) Pulse: 69 Resp: 16 SpO2: 99% BP: 132/71 BP Readings from Last 3 Encounters: 05/01/24 132/71 04/08/24 128/78 02/18/24 124/68 Wt Readings from Last 3 Encounters: 05/01/24 201 lb 6.4 oz (91.4 kg) 04/08/24 189 lb (85.7 kg) 02/18/24 204 lb 1 oz (92.6 kg) BMI Readings from Last 3 Encounters: 05/01/24 29.74 kg/m² 04/08/24 27.91 kg/m² 02/18/24 30.13 kg/m² Physical Exam Physical Exam Vitals and nursing note reviewed. Constitutional: General: He is not in acute distress. Appearance: Normal appearance. HENT: Head: Normocephalic and atraumatic. Cardiovascular: Rate and Rhythm: Normal rate. Pulmonary: Effort: No respiratory distress. Musculoskeletal: Cervical back: Normal range of motion and neck supple. Neurological: Mental Status: He is alert and oriented to person, place, and time. I have reviewed the following results: Results RADIOLOGY Liver ultrasound: Abnormal liver appearance (04/21/2024) DIAGNOSTIC Endoscopy: Gastric mucosal tear, esophageal varices present (04/21/2024) Hospital notes. Assessment and Plan Assessment & Plan Alcohol Use Disorder History of heavy alcohol use due to insomnia, leading to multiple withdrawals and recent upper GI bleed. Patient acknowledges the need to stop drinking. Has scheduled video therapy and sleep medicineconsultation. -Continue with scheduled video therapy on 05/18/2024. -Attend scheduled sleep medicine consultation. -Consider further addiction services as needed. Upper GI Bleed Recent hospital admission for upper GI bleed likely secondary to alcohol use. Patient reports vomiting blood clots, but is currently asymptomatic. Endoscopy revealed significant gastric inflammation. -Continue Pantoprazole for gastric protection. -Complete 30-day course of Prednisone for gastric inflammation. -Check liver enzymes and electrolytes today. Liver Disease History of alcohol-related liver disease. Recent ultrasound showed significant liver damage. -Attempt to schedule earlier hepatology appointment (currently scheduled for September). -Check liver enzymes and electrolytes today. Hypertension Managed with Nadolol. Blood pressure well-controlled today. -Continue Nadolol. Electrolyte Imbalance History of electrolyte imbalance due to diuretic use (Lasix and Spironolactone). -Check electrolytes today. -Continue diuretics as prescribed. Supplementation History of taking folic acid, magnesium, and B12/B complex supplements. -Restart folic acid, magnesium, and B12/B complex supplements. Wrap-Up Follow Up: Return if symptoms worsen or fail to improve, for Labs Today, Return with Physician. | For: Labs Today, Return with Physician | Check-out note: Sooner return visit with hepatology. Time: I spent a total of 30-39 minutes (exact time 30 mins) on the date of service in [...] during the encounter consented to its use. The above was discussed and understanding was expressed. Katherine ISSA [address] [place] [phone] documented in this encounter Nursing Notes * Maira Torres LPN - 05/01/2024 10:00 AM EST The patient has been properly identified by confirmation of name and date of . Chief Complaint Patient presents with Hospital Follow-Up Patient is here today for hospital follow up from [facility] 04/21-04/23 Patient was admitted for upper GI bleed Patient has no follow up concerns or symptoms documented in this encounter Plan of Treatment Upcoming Encounters Date Type Department Care Team (Late st Contact Info) Description 06/02/2024 11:30 AM EDT Imaging Radiology [facility] [address] [place] [phone] 06/03/2024 2:30 PM EDT Telemedicine [facility] [address] [place] [address] [place] [facility] [address] [place] [address] 06/17/2024 2:30 PM EDT Telemedicine [facility] [address] [place] [address] [place] [employer] [address] [place] [address] 08/07/2024 3:00 PM EDT Office Visit [address] [phone] Tami Upton MD [address] [place] [phone] 09/08/2024 2:40 PM EDT Office Visit Hepatology, [facility] [address] [place] [phone] Katty Hernandes DO [address] [place] [address] Scheduled Orders Name Type Priority Associated Diagnoses Orde r Schedule CBC WITH WBC DIFFERENTIAL Lab Routine Hospital discharge follow-up Gastrointestinal hemorrhage, unspecified gastrointestinal hemorrhage type Expected: 05/01/2024 (Approximate), Expires: 05/01/2025 Scheduled Procedures Name Priority Associated Diagnoses Date/Ti me ESOPHAGOGASTRODUODENOSCOPY ( EGD), FLEXIBLE, TRANSORAL, ENDOSCOPIC ULTRASOUND Recall Alcohol abuse Hepatic fibrosis ESOPHAGOGASTRODUODENOSCOPY ( EGD), FLEXIBLE, TRANSORAL, DIAGNOSTIC Recall Alcohol abuse Hepatic fibrosis Health Maintenance Due Date Last Done Comments COVID-19 Vaccine ( season) 2023 Influenza Vaccine (FLU shot) (#1) 2023 11/24/2022 Diabetes Screening 05/01/2027 05/01/2024, 1 04/15/2023, 12/06/2023, [...] Not on filedocumented as of this encounter Results * MAGNESIUM (05/01/2024 10:37 AM EST) Magnesium 2.2 1.5 - 2.6 mg/dL 05/01/2024 7:52 PM EST [facility] Blood Venous blood specimen / Unknown Venipuncture / Unknown 05/01/2024 10:37 AM EST 05/01/2024 10:37 AM EST Katherine Schmitt PA-C LAB BLOOD ORDERABLES Fin al Result LABORATORY [facility] [address] [place] [address] * PHOSPHORUS (05/01/2024 10:37 AM EST) Phosphorus 3.4 2.5 - 4.8 mg/dL 05/01/2024 7:52 PM EST [facility] Blood Venous blood specimen / Unknown Venipuncture / Unknown 05/01/2024 10:37 AM EST 05/01/2024 10:37 AM EST Katherine Schmitt PA-C LAB BLOOD ORDERABLES Fin al Result Performing Organization Address City/Special Care Hospital/ZIP Co de Phone Number LABORATORY [facility] [address] [place] [address] * (ABNORMAL) COMPREHENSIVE METABOLIC PANEL (05/01/2024 10:37 AM EST) BUN 16 6 - 20 mg/dL 05/01/2024 7:52 PM EST [facility] CREATININE 0.6 0.6 - 1.2 mg/dL 05/01/2024 7:52 PM EST [facility] EGFR >90 >=60 mL/min 05/01/2024 7:52 PM EST [facility] Comment:eGFR is calculated b ased on the CKD-EPI 2020 equation. SODIUM 137 135 - 146 mmol/L 05/01/2024 7:52 PM EST [facility] POTASSIUM 3.6 3.5 - 5.1 mmol/L 05/01/2024 7:52 PM EST [facility] CHLORIDE 98 98 - 107 mmol/L 05/01/2024 7:52 PM EST [facility] CO2 27 22 - 32 mmol/L 05/01/2024 7:52 PM EST [facility] ANION GAP 12 7 - 15 mmol/L 05/01/2024 7:52 PM EST [facility] GLUCOSE 87 70 - 120 mg/dL 05/01/2024 7:52 PM EST [facility] Albumin 4.0 3.8 - 5.0 g/dL 05/01/2024 7:52 PM EST [facility] AST 107(H) 10 - 50 U/L 05/01/2024 7:52 PM EST [facility] Alkaline Phosphatase 106 35 - 130 U/L 05/01/2024 7:52 PM EST [facility] Bilirubin, Total 3.9(H) <=1.2 mg/dL 05/01/2024 7:52 PM EST [facility] CALCIUM 9.2 8.4 - 10.2 mg/dL 05/01/2024 7:52 PM EST [facility] Protein 6.5 6.0 - 8.3 g/dL 05/01/2024 7:52 PM EST [facility] ALT 81(H) 10 - 50 U/L 05/01/2024 7:52 PM EST [facility] Blood Venous blood specimen / Unknown Venipuncture / Unknown 05/01/2024 10:37 AM EST 05/01/2024 10:37 AM EST Katherine Schmitt PA-C LAB BLOOD ORDERABLES Fin al Result LAB[facility]ATORY [facility] [address] [place] [address] documented in this encounter Visit Diagnoses Diagnosis Hospital discharge follow-up- Primary Other follow-up examination Alcohol use disorder Other insomnia Gastrointestinal hemorrhage, unspecified gastrointestinal hemorrhage type Alcoholic cirrhosis of liver without ascites (HCC) Alcoholic cirrhosis of liver Hypertension goal BP (blood pressure) < 140/90 Unspecified essential hypertension documented in this encounter Advance Directives * Full Code (Latest Code Status on File) Date Activated Date Inactivated Comments 03/29/2023 1:43 PM 04/02/2023 2:03 PM This order r eflects the patients wishes and were consensually agreed upon. Question Answer Comments Discussion of Advance Directives occurred with: Patient Care Teams Cargo Mate Relationship Specialty Start Date End Date Tami Upton MD [address] [place] [phone] PCP - General Family Medicine 04/14/24 documented as of this encounter"
--- OUTSIDE RECORDS SUMMARY | 2024-07-04 03:23 | External Medical Summary | Summary of Care ---
Author Name Unknown Organization [facility] Address [address] [place] [address] Phone [phone] Care Team Providers Care Quality Control Tester Name Role Phone Tami Upton MD Primary Care Provi elena Reason for Visit * Reason Onset Date Comments Appointment 06/17/2024 Encounter Details Date Type Department Care Team (Late st Contact Info) Description 06/17/2024 Telephone [facility] [address] [place], [place] [phone] [place], [facility] [address] [place] [address] Appointment Allergies No known active allergiesdocumented as of this encounter (statuses as of 06/17/2024) Medications Folic Acid 1 MG Oral Tablet [...] as of this encounter (statuses as of 06/17/2024) Active Problems Problem Noted Date Diagnosed Date [...] as of this encounter (statuses as of 06/17/2024) Resolved Problems Problem Noted Date Diagnosed Date [...] as of this encounter (statuses as of 06/17/2024) Immunizations Name Administration Dates Next Due Pneumococcal [...] Industry 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 Patient answered and is unable to attend appointment. He admits to forgetting about it. He was reminded of next appointment on 07/01/24 @ 2:30 PM which he says is now in his calendar. 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 And he apologizes for forgetting about this appointment. documented in this encounter Plan of Treatment Upcoming Encounters Date Type Department Care Team (Late st Contact Info) Description 07/01/2024 2:30 PM EDT Telemedicine [facility] [address] [facility] [place] [address] [facility] [address] [facility] [address] 09/08/2024 2:40 PM EDT Office Visit Hepatology, [facility] [address] [place] [phone] Katty Hernandes DO [address] [place] [address] Scheduled Procedures Name Priority Associated Diagnoses Date/Ti [...] Advance Directives occurred with: Patient Care Teams Quality Control Tester Relationship Specialty Start Date End Date Tami Upton MD [address] [place] [phone] PCP - General Family Medicine 04/14/24 documented as of this encounter
--- OUTSIDE RECORDS SUMMARY | 2024-07-04 03:23 | External Medical Summary | Summary of Care ---
Author Name Unknown Organization [facility] Address [address] [place] [address] Phone [phone] Care Team Providers Care High [employer] Foreign Language Tutor Name Role Phone Tami Upton MD Primary Care Provi elena Reason for Visit * Reason Comments Anxiety Follow Up * - Authorized Specialty Diagnoses / Procedures Referred By Danielle luong Referred To Contact Referral ID Status Reason Start Date Expiration Date V isits Requested Visits Authorized [id number] Authorized 05/02/2024 05/01/2025 [id number] Encounter Details Date Type Department Care Team (Latest Contact Info) Description 06/03/2024 2:30 PM EDT [facility] [address] [place] [address] [place] COMPLAINT OPERATOR [address] [place] [address] Psychophysiological insomnia*; Anxiety state Allergies No known active allergiesdocumented as of this encounter (statuses as of 06/03/2024) Medications Folic Acid 1 MG Oral Tablet [...] Take 1 Tablet by mouth at bedtime. 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 I was not in a hospital or clinic location. After connecting through televideo, patient was verified with two unique identifiers. Patient (or authorized legal operations representative) was then informed that this was a Telemedicine visit and being conducted confidentially over secure lines. Methods to assure confidentiality were taken. Patient acknowledged consent and understanding of privacy and security of the Telemedicine visit. The patient agreed to participate. Provider reviewed elements of Outpatient Services Description including limits of confidentiality, how to contact the department, risks and benefits of treatment and consent for treatment. Start Time: 2:40 PM Stop Time: 3:10 PM Total direct time: 30 min BEHAVIORAL MEDICINE RETURN VISIT PROGRESS NOTE Ethel Vega 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 NOTES: Therapist met with patient to complete an individual session. Therapist listened and attuned to patient experience, encouraging him, and promoting health and pro-activity, celebrating 5 weeks of patient sobriety. Patient and therapist identified the following strengths that will aid in treatment: proactive, artistic, creative, forward focused Patient and therapist identified the following needs: continue looking forward Patient and therapist noted the following protective factors: support of family and friends, skilled, active MENTAL STATUS AND BEHAVIORAL OBSERVATIONS: Appearance: within normal limits Behavior: within normal limits Speech: normal pitch, rate and volume Affect: Congruent with content of conversation Thought Process: within normal limits and goal directed Thought Content: within normal limits Intellectual Function: within normal limits Sensorium: alert and oriented to person, place, time and situation Cognition: grossly intact Insight/Judgment: good PROGRESS TOWARDS GOALS: Goal: Improved self-management of anxiety Objective Measures: Labs/Outcomes 05/18/2024 15:11 Labs/Outcomes PHQ Score 9 PHQ Score Description Mild Depression [place] Suicide Severity Rating Scale Results 05/18/2024 15:23 [place] SUICIDE SEVERITY RATING SCALE (C-SSRS) Have you wished you were or wished you could go to sleep and not wake up? (In the Past Month or Since Last Visit) No Have you had any actual thoughts of killing yourself? (In the Past Month or Since Last Visit) No Have you been thinking about how you might do this? (In the Past Month or Since Last Visit) No Have you had thoughts and had some intention of acting on them? (In the Past Month or Since Last Visit) No Have you started to work out or worked out the details of how to kill yourself? Do you intend to carry out this plan? (In the Past Month or Since Last Visit) No Have you ever done anything, started to do anything, or prepared to do anything to end your life? (Lifetime) No Was this within the past 3 months? No Level of Risk No Risk Identified Protective Factors Future Plans;Access to appropriate services;Social Support/Family;Identifies reasons for living Risk Factors Anxiety;Physical illness/chronic pain;Substance use;History of Trauma - No change in risk from last session (see note dated 05/18/24 for further details) Safety Plan: Professional Resources: 1. Local Crisis Services: For [facility] call TAPLine at . [facility] Emergency Number: 2. [facility] Division of Psychiatry: [phone] Additional resources: 1. National Suicide Prevention Lifeline: 2. National Crisis Text Line: Text HOME to 213844 3. 911 or proceed to the nearest emergency room INTERVENTION: Reflection of Feelings, Clarification, Goal Setting, Developing Coping Strategies, Labeling Feelings, Stress Management TREATMENT PLAN: Outpatient Adult Therapy Treatment Plan Treatment plan was developed on 05/18/2024, treatment will continue to focus on goals below; Treatment update will occur when clinically indicated or by 11/14/2024. Patient's goals captured in patient's words: "to improve sleep" Expected family or significant other involvement: Offer Support and Crisis Support Type of Service:Individual Patients Strengths and Facilitating Factors to care: Recognizes need for change, Seeking help, Has a purpose in life, Has hobbies, Good support system, Awareness of substance use issues, and Cooperative Treatment Barriers: none identified Crisis Planning: What I can do if I ever experience a crisis (much worse symptoms, severe distress or thoughts of self-harm): Journal/Writing, Art/Music, Relaxation/Breathing exercises/Yoga, and Exercise/Walk People I can call in the event of a crisis: Parent: parents and Spouse/partner/significant other: boyfriend Additional resources I can utilize if the previous steps are ineffective (e.g: ED, hotlines): Suicide and Crisis [address] Crisis Contact [facility] access to crisis numbers, and [facility] Hotlines for Help and Suicide Safety Plan Patient/ Family Received Copy of Treatment Plan Duration of Treatment Frequency of Treatment Yes, sent via YES.TAP 8-11 sessions every other week Patient Identified Needs/Goals Interventions Objective/ Discharge Criteria Problem/Need 1: Anxiety and Insomnia Cognitive Behavioral Therapy (CBT), which includes psychoeducation, cognitive restructuring, relaxation/diaphragmatic breathing, problem-solving, and behavioral activation SANDI<5 and Achieve optimal treatment response on optimally safe medication regimen Please choose a method to track patient's improvement based on clinical assessment: SANDI-7 Data Discharge Discussed with patient: Patient continues to need treatment FOLLOW-UP PLAN: Return: 2 weeks Appointment: 06/17/24 @ 2:30 PM Action Plan: 1. Continue Cognitive Behavioral Therapy 2. Continue medication management 3. Continue utilization of coping strategies Treatment plan reviewed with the patient. Patient voices understanding and concurs with plan. PATIENT EDUCATION: Verbal & written [facility] Division of Psychiatry & Behavioral Medicine [facility] [phone] National Suicide Prevention Lifeline : 988 Crisis Textline : Text "HOME" to 805672 to connect with a crisis counselor Crisis Numbers by County: [place] [facility] - Emergency Services [facility] (0-216-6-YOU CAN) resolve Crisis Network [place] & [place] . [facility] - Crisis Intervention [place] [facility] Crisis Help-Line [place] & [facility] - Crisis Intervention Services [facility] Service Access [facility]. - Crisis Intervention [place] Choose option 1 [facility] of Home Energy Consultant Devin Villalpando & Michele Crisis Intervention [place] [facility] - Mental Health Crisis [place] [facility] - Crisis Intervention [place] [facility] - Crisis Intervention [place] Camara Potter - Crisis Line [place] - Mental Health Crisis Hotline [place] [facility] - Crisis Services [place] [facility] Crisis Center [place] Service Access [facility]. - Crisis Intervention [place] - Mental Health Crisis Intervention Services [place] [facility] MH/ID Program [place], [place], Roy, Nikki - Crisis System [facility] Human Services - Crisis Hotline [place] Marybeth Gallegos (2-488-968-HELP) [facility] - Crisis Intervention [place] [facility] - Crisis Intervention [facility] - Crisis Services Marv [facility] Behavioral Health - Crisis Center [place] [phone] [facility] - Crisis Hotline [place] (8:30 am-5:00 pm) OR (after 5:00 pm, weekends & holidays) Jamie Marybeth Perera [facility] Crisis Intervention Program [place] [facility] - Mental Health Crisis Line Jayden Hutton and Katie [facility] [place] Crisis [place] & [place] - Crisis Intervention [place] [facility] - Mental Health Crisis Service Viv[facility] - Crisis Intervention [place] [facility] - Crisis Intervention [place] & [place] [facility] - Help Line [facility] MH/ID Program [facility] - Crisis Intervention [place] [facility] - Crisis Intervention [place] [facility] Emergency Services, [place] [facility] - Crisis Intervention [facility] Behavioral Health - Emergency Services [place] [facility] - Crisis Line [place] - DBHIDS - Suicide and Crisis Intervention Hotline Damien [facility] - Crisis/ Emergency Services [place] [facility] - Emergency Contact Line [place] [facility] - Crisis Line Nicho ext. 1 [facility] Human Services [facility] - Crisis Intervention Hotline [place] [facility] Crisis Intervention Services documented in this encounter Plan of Treatment Upcoming Encounters Date Type Department Care Team (Late st Contact Info) Description 06/09/2024 11:30 AM EDT Imaging Radiology [facility] [address] [place] [phone] 06/17/2024 2:30 PM EDT Telemedicine [place] [place] [address] [place] [address] [facility] [address] [place] [address] 07/01/2024 2:30 PM EDT Telemedicine [facility] [place] [address] [place] [address] [facility] [address] [place] [address] 09/08/2024 2:40 PM EDT Office Visit Hepatology, [facility] [address] [place] [phone] Katty Hernandes DO [address] [place] [address] Scheduled Procedures Name Priority Associated Diagnoses Date/Ti me ESOPHAGOGASTRODUODENOSCOPY ( EGD), FLEXIBLE, TRANSORAL, ENDOSCOPIC ULTRASOUND Recall Alcohol abuse Hepatic fibrosis ESOPHAGOGASTRODUODENOSCOPY ( EGD), FLEXIBLE, TRANSORAL, DIAGNOSTIC Recall Alcohol abuse Hepatic fibrosis Health Maintenance Due Date Last Done Comments Albumin/Creatinine Ratio 2006 COVID-19 Vaccine (1 - 2024-25 season) 2023 Influenza Vaccine (FLU shot) (Season [...] as of this encounter Visit Diagnoses Diagnosis Psychophysiological insomnia- Primary Persistent disorder of initiating or maintaining sleep Anxiety state Anxiety state, unspecified documented in this encounter Advance Directives * Full Code (Latest Code Status on File) Date Activated Date Inactivated Comments 03/29/2023 1:43 PM 04/02/2023 2:03 PM This order r eflects the patients wishes and were consensually agreed upon. Question Answer Comments Discussion of Advance Directives occurred with: Patient Care Teams High School Foreign Language Tutor Relationship Specialty Start Date End Date Tami Upton MD [address] [place] [phone] PCP - General Family Medicine 04/14/24 documented as of this encounter
--- OUTSIDE RECORDS SUMMARY | 2024-07-04 03:23 | External Medical Summary | Summary of Care ---
Author Name Unknown Organization [facility] Address [address] [place] [address] Phone [phone] Care Team Providers Care Estate And Trust Tax Principal Name Role Phone Tami Upton MD Primary Care Provi elena Reason for Visit * Reason Onset Date Comments Test Results 06/10/2024 Encounter Details Date Type Department Care Team (Late st Contact Info) Description 06/10/2024 Telephone Hepatology, [facility] [address] [place] [address] Katty Hernandes DO [address] [place] [address] Test Results Allergies No known active allergiesdocumented [...] (Oral) 994,02/19/1990,1988,1988 Pneumococcal Conjugate Vacci ne, 20-valent ([id number]) 01/31/2023 Seasonal Influenza, PF, 6 M & [...] 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 Not on file Not [...] Contact Info) Description 06/17/2024 2:30 PM EDT [facility] [address] [place] [address] [facility] [address] [place] [address] 07/01/2024 2:30 PM EDT Telemedicine [facility] [place] [facility] [address] [place] [address] Jovi [place], COLOR STRAINER [address] [place] [address] 09/08/2024 2:40 PM EDT Office Visit Hepatology, [facility] [address] [place] [phone] Katty Hernandes DO [address] [place] [address] Scheduled Orders Name Type Priority Associated Diagnoses [...] Advance Directives occurred with: Patient Care Teams Estate And Trust Tax Principal Relationship Specialty Start Date End Date Tami Upton MD [address] [place] [phone] PCP - General Family Medicine 04/14/24 documented as of this encounter
--- OUTSIDE RECORDS SUMMARY | 2024-07-04 03:23 | External Medical Summary | Summary of Care ---
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 He picked up and agreed to log in for appointment. documented in this encounter Plan of Treatment Upcoming Encounters Date Type Department Care Team (Late st Contact Info) Description 06/09/2024 11:30 AM EDT Imaging Radiology [facility] [address] [place] [phone] 06/17/2024 2:30 PM EDT Telemedicine [facility] [address] [place] [address] [facility] [address] [place] [address] 07/01/2024 2:30 PM EDT Telemedicine [facility] [address] [place] [address] [facility] [address] [place] [address] 09/08/2024 2:40 PM EDT Office Visit Hepatology, [facility] [address] [place] [phone] Katty Hernandes DO [address] [place] [address] Scheduled Procedures Name Priority Associated Diagnoses Date/Ti [...] Advance Directives occurred with: Patient Care Teams Plant Protection Officer Relationship Specialty Start Date End Date Tami Upton MD [address] [place] [phone] PCP - General Family Medicine 04/14/24 documented as of this encounter
--- OUTSIDE RECORDS SUMMARY | 2024-07-04 03:23 | External Medical Summary | Summary of Care ---
Author Name Unknown Organization [facility] Address [address] [place] [address] Phone [phone] Care Team Providers Care Chiropractic Neurologist Name Role Phone Tami Upton MD Primary Care Provi elena Reason for Visit * Reason Comments Insomnia Anxiety NEW PATIENT * - Authorized Specialty Diagnoses / Procedures Referred By Danielle luong Referred To Contact Referral ID Status Reason Start Date Expiration Date V isits Requested Visits Authorized [id number] Authorized 05/02/2024 05/01/2025 [id number] Encounter Details Date Type Department Care Team (Late st Contact Info) Description 05/18/2024 2:30 PM EDT Telemedicine [facility] [address] [place] [address] [facility] [address] [place] [address] Anxiety state*; Psychophysiological insomnia Allergies No known active allergiesdocumented as of this encounter (statuses as of 05/19/2024) Medications Folic Acid 1 MG Oral Tablet [...] as of this encounter (statuses as of 05/19/2024) Active Problems Problem Noted Date Diagnosed Date [...] as of this encounter (statuses as of 05/19/2024) Resolved Problems Problem Noted Date Diagnosed Date [...] as of this encounter (statuses as of 05/19/2024) Immunizations Name Administration Dates Next Due Pneumococcal [...] 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 I was not in a hospital or clinic location. After connecting through [employer], patient was verified with two unique identifiers. Patient (or authorized legal sales representative girls' apparel) was then informed that this was a Telemedicine visit and being conducted confidentially over secure lines. Methods to assure confidentiality were taken. Patient acknowledged consent and understanding of privacy and security of the Telemedicine visit. The patient agreed to participate. Provider determined this patient has capacity to receive and benefit from telehealth services. Face to Face Start Time: 2:40 PM Face to Face Stop Time: 3:29 PM Referral Source: sleep study referral Risk Assessment: Completed History of Present Illness: Esdras Storey is a 33 year old person that presents for sleep issues. 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 "My health has caught up with me". Last drink was 3 weeks ago after vomiting a worrisome amount of blood and [id number]. Had had night terrors growing up. Long hx of sleep issues. Alcohol had been at one time a helpfor sleep but developed into an unhealthy dependence. Now, he actively is working on creating an atmosphere of hard work and improved sleep without alcohol. He uses aroma therapy, auditory therapy, sl eepy time tea. Anxieties waylay him at night when he tries to sleep - thoughts from the past as well as future fears. 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 Strong supports in the people of his loving parents and boyfriend. Strong artistic skills and talents - guitar, etc. Uses Trazodone to limited effect. Melatonin also had limited effect. CBT-I recommended by sleep study doctor. Patient's last PHQ-9 score (Adult) - -1 and Patient's last SANDI-7 score - Psychiatry Review of Systems: PSYCHIATRY REVIEW OF SYSTEMS Pain screening: Is patient experiencing any pain related to today's visit? No Nutritional Screening: No concerns Past Psychiatric History: Outpatient Treatment: None Inpatient Treatment: None Self injury and suicide attempts: None Prior psychotropic medical trials: None History of trauma, abuse, exploitation or trafficking: none Substance Use History: Alcohol hx of use - see above Family Psychiatric History: Psychiatric diagnoses: None Attempted suicides/ by suicide:None Drug and alcohol abuse: None Personal, Family and Social History: Living situation: On his own Education/Employment: See above History: None Legal History: None Intellectual Disability Diagnosis: No Activities of Daily Living: Fair Additional community service involvement: None Leisure and recreational interest: art and instrument (guitar) Buddhist/Spiritual Orientation: Atheist Mental Status Evaluation: Appearance: Well groomed, casually dressed, appearing stated age Abnormal Movement: No abnormal movements noted Behavior: Calm, cooperative and appropriate Speech and Language: Normal in rate, rhythm, volume and tone Mood: Euthymic Affect: Appropriate to context and mood-congruent Thought Process: Logical, linear and goal directed Thought Content: No abnormal thought content Hallucinations: No perceptual disturbances Suicidality: No suicidal ideations, intent, method or plan or passive wish Homicidality: No homicidal ideations, intent, plan or target Orientation: Oriented to self, time, place and circumstances Attention: Intact Recent and Remote memory:Intact Insight: Good Judgement: Good Fund of Knowledge: Good Assessment/Formulation: Patient is a 33 year old male, 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 Patient is willing to address issues from his past that recurrently plague him at night. Patient is also willing to address present/future anxieties that worry him at night. He is very self-aware and utilizing what methods he is already aware of while being open to re- engaging in his art, music, and new ways of thinking to calm his mind and improve sleep over time. Diagnosis: ICD-10-CM 1. Anxiety state F41.1 2. Psychophysiological insomnia F51.04 Plan: Medications: as prescribed Therapy: biweekly CBT-I to address insomnia Community Resources: n/a Lab tests/Medical: n/a Safety: completed Return in: 2 weeks Treatment options and recommendations/interventions reviewed. Patient and/or caregiver verbalize understanding and agrees to plan with explanation of risks/benefits, aware of how to contact clinic with questions. documented in this encounter Plan of Treatment Upcoming Encounters Date Type Department Care Team (Late st Contact Info) Description 06/02/2024 11:30 AM EDT Imaging Radiology [facility] [address] [place] [phone] 06/03/2024 2:30 PM EDT Telemedicine [facility] [address] [place] [address] [facility] [address] [place] [address] 06/17/2024 2:30 PM EDT Telemedicine [facility] [address] [address] [facility] [place] [address] 08/07/2024 3:00 PM EDT Office Visit [address] [phone] Tami Upton MD [address] [place] [phone] 09/08/2024 2:40 PM EDT Office Visit Hepatology, [facility] [address] [place] [address] Katty Hernandes DO [address] [place] [address] Scheduled Procedures Name Priority Associated Diagnoses Date/Ti me ESOPHAGOGASTRODUODENOSCOPY ( EGD), FLEXIBLE, TRANSORAL, ENDOSCOPIC ULTRASOUND Recall Alcohol abuse Hepatic fibrosis ESOPHAGOGASTRODUODENOSCOPY ( EGD), FLEXIBLE, TRANSORAL, DIAGNOSTIC Recall Alcohol abuse Hepatic fibrosis Scheduled Referrals Name Type Priority Associated Diagnoses Orde r Schedule ADULT/PEDS PSYCHOLOGY REFERRAL OP Referral Within 10 days (routine) Other insomnia Ordered: 04/24/2024 Health Maintenance Due Date Last Done Comments [...] as of this encounter Visit Diagnoses Diagnosis Anxiety state- Primary Anxiety state, unspecified Psychophysiological insomnia Persistent disorder of initiating or maintaining sleep documented in this encounter Advance Directives * Full Code (Latest Code Status on File) Date Activated Date Inactivated Comments 03/29/2023 1:43 PM 04/02/2023 2:03 PM This order r eflects the patients wishes and were consensually agreed upon. Question Answer Comments Discussion of Advance Directives occurred with: Patient Care Teams Chiropractic Neurologist Relationship Specialty Start Date End Date Tami Upton MD [address] [place] [phone] PCP - General Family Medicine 04/14/24 documented as of this encounter
--- OUTSIDE RECORDS SUMMARY | 2024-07-04 03:23 | External Medical Summary | Summary of Care ---
Author Name Unknown Organization [facility] Address [address] [place] [address] Phone [phone] Care Team Providers Care Glass Blower Helper Name Role Phone Tami Upton MD Primary Care Provi elena Reason for Visit * Reason Onset Date Comments Test Results 06/10/2024 Encounter Details Date Type Department Care Team (Late st Contact Info) Description 06/10/2024 Telephone Hepatology, [facility] [address] [place] [address] Katty Hernandes DO [address] [place] [address] Test Results Allergies No known active allergiesdocumented [...] 06/17/2024) Immunizations Name Administration Dates Next Due DTaP Dipth/Tet/Acell Pertussis (Infanrix), Peds 08/22/1993,02/19/1990,03/27/1989,1988,1988 HIB PRP-T, 4 Dose, PF, IM (H iberix, ActHib) 11/27/1989 Hepatitis B, 0-19 yrs 10/11/1998,03/21/1998,01/02 MMR - Measles/Mumps/Rubella Vaccine 08/22/1993,1 OPV - Polio Virus Vaccine (Oral) 994,02/19/1990,1988,1988 Pneumococcal Conjugate Vacci ne, 20-valent ([id number]) 01/31/2023 Seasonal Influenza, PF, 6 M & [...] 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 Not on file Not on file documented as of this encounter Miscellaneous Notes * Telephone Encounter - Bridget Miller CMA [...] Info) Description 07/01/2024 2:30 PM EDT Telemedicine Psychology, [place] [address] [address] [facility] [address] [place] [address] 09/08/2024 2:40 PM EDT Office Visit Hepatology, [facility] [address] [place] [phone] Katty Hernandes DO [address] [place] [address] Scheduled Orders Name Type Priority Associated Diagnoses [...] Advance Directives occurred with: Patient Care Teams Glass Blower Helper Relationship Specialty Start Date End Date Tami Upton MD [address] [place] [phone] PCP - General Family Medicine 04/14/24 documented as of this encounter
--- OUTSIDE RECORDS SUMMARY | 2024-07-04 03:24 | External Medical Summary | Summary of Care ---
Author Name Unknown Organization [facility] Address [address] [place] [address] Phone [phone] Care Team Providers Care Artificial Stone Setter Name Role Phone Tami Upton MD Primary Care Provi elena Reason for Visit * Reason Onset Date Comments Test Results 05/06/2024 Encounter Details Date Type Department Care Team (Late st Contact Info) Description 05/06/2024 Telephone Hepatology, [facility] [address] [place] [address] Katty Hernandes DO [address] [place] [address] Test Results Allergies No known active allergiesdocumented as of this encounter (statuses as of 05/06/2024) Medications Folic Acid 1 MG Oral Tablet [...] as of this encounter (statuses as of 05/06/2024) Active Problems Problem Noted Date Diagnosed Date [...] as of this encounter (statuses as of 05/06/2024) Resolved Problems Problem Noted Date Diagnosed Date [...] as of this encounter (statuses as of 05/06/2024) Immunizations Name Administration Dates Next Due DTaP Dipth/Tet/Acell Pertussis (Infanrix), Peds 08/22/1993,02/19/1990,03/27/1989,1988,1988 HIB PRP-T, 4 Dose, PF, IM (H iberix, ActHib) 11/27/1989 Hepatitis B, 0-19 yrs 10/11/1998,03/21/1998,01/02 MMR - Measles/Mumps/Rubella Vaccine 08/22/1993,1 OPV - Polio Virus Vaccine (Oral) 994,02/19/1990,1988,1988 Pneumococcal Conjugate Vacci ne, 20-valent ([id number]) 01/31/2023 Seasonal Influenza, PF, 6 M & [...] disorder, last use before last ED visit Hunger Vital Sign Answer Date Recorded Within [...] 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 Pt states he has been avoiding alcohol. * Telephone Encounter - Katty Hernandes DO - 05/06/2024 2:21 PM EST Please let patient know recent labs reviewed and they all remain stable. MELD 16. Strongly recommend to abstain from all alcohol. MELD 3.0: 16 at 05/01/2024 10:37 AM MELD-Na: 16 at 05/01/2024 10:37 AM Calculated from: Serum Creatinine: 0.6 mg/dL (Using min of 1 mg/dL) at 05/01/2024 10:37 AM Serum Sodium: 137 mmol/L at 05/01/2024 10:37 AM Total Bilirubin: 3.9 mg/dL at 05/01/2024 10:37 AM Serum Albumin: 4 g/dL (Using max of 3.5 g/dL) at 05/01/2024 10:37 AM INR(ratio): 1.5 at 05/01/2024 10:37 AM Age at listing (hypothetical): 33 years Sex: Male at 05/01/2024 10:37 AM Katty Hernandes DO documented in this encounter Plan of Treatment Upcoming Encounters Date Type Department Care Team (Late st Contact Info) Description 05/18/2024 2:30 PM EDT Telemedicine [facility] [address] [address] [facility] [address] [place] [address] 06/02/2024 11:30 AM EDT Imaging Radiology [facility] [address] [place] [phone] 08/07/2024 3:00 PM EDT Office Visit [address] [phone] Tami Upton MD [address] [place] [phone] 09/08/2024 2:40 PM EDT Office Visit Hepatology, [facility] [address] [place] [address] Katty Hernandes DO [address] [place] [address] Scheduled Procedures Name Priority Associated Diagnoses Date/Ti [...] Advance Directives occurred with: Patient Care Teams Artificial Stone Setter Relationship Specialty Start Date End Date Tami Upton MD [address] [place] [phone] PCP - General Family Medicine 04/14/24 documented as of this encounter
--- OUTSIDE RECORDS SUMMARY | 2024-07-04 03:24 | External Medical Summary | Summary of Care ---
Author Name Unknown Organization [facility] Address [address] [place] [address] Phone [phone] Care Team Providers Care Metal Fabricator Apprentice Name Role Phone Tami Upton MD Primary Care Provi elena Reason for Visit * Reason Onset Date Comments Order Request 05/01/2024 Encounter Details Date Type Department Care Team (Late st Contact Info) Description 05/01/2024 Telephone Hepatology, [facility] [address] [place] [address] Katty Blackmon DO [address] [place] [address] Order Request Allergies No known active allergiesdocumented as of this encounter (statuses as of 05/01/2024) Medications Folic Acid 1 MG Oral Tablet [...] as of this encounter (statuses as of 05/01/2024) Active Problems Problem Noted Date Diagnosed Date [...] as of this encounter (statuses as of 05/01/2024) Resolved Problems Problem Noted Date Diagnosed Date [...] as of this encounter (statuses as of 05/01/2024) Immunizations Name Administration Dates Next Due DTaP Dipth/Tet/Acell Pertussis (Infanrix), Peds 08/22/1993,02/19/1990,03/27/1989,1988,1988 HIB PRP-T, 4 Dose, PF, IM (H iberix, ActHib) 11/27/1989 Hepatitis B, 0-19 yrs 10/11/1998,03/21/1998,01/02 MMR - Measles/Mumps/Rubella Vaccine 08/22/1993,1 OPV - Polio Virus Vaccine (Oral) 994,02/19/1990,1988,1988 Pneumococcal Conjugate Vacci ne, 20-valent ([id number]) 01/31/2023 Seasonal Influenza, PF, 6 M & [...] 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 * Telephone Encounter - Valerie Welsh OSA - 05/01/2024 2:[address] Blackmon can you review this pt. Pt was admitted to [facility] on 04/21-04/23 for a gi bleed from alcohol withdrawal and vomiting blood. Pcp office scheduled him with you on Saturday not sure if you can really do anything with you just seeing him on the of this month. Pt stated that they did another us in the hospital and it was showing that his liver was more inflamed and the hospital and pcp told him to follow up with you Do you want me to leave him on the schedule or wait for the referral from pcp to see one of the gastro providers? * Telephone Encounter - Valerie Welsh OSA - 05/01/2024 2:27 PM EST Pt scheduled on Dr. Blackmon schedule for Thursday 05/04 for a Gi Bleed after a discharge from [facility]. Pt seen pcp today and was put on the hepatology schedule as a return. Dr. Blackmon only sees hepatology pts not gastro pts. Pt is needing a new referral for a new pt appt to be seen with Gastro providers. Please place correct order so pt can be scheduled correctly and we will notify pt 05/04 will be cancelled due to scheduling incorrectly. documented in this encounter Plan of Treatment Upcoming Encounters Date Type Department Care Team (Late st Contact Info) Description 05/04/2024 9:00 AM EST Telemedicine [facility], [address] [address] Jessica Lilly MD [address] [place] [facility] [address] 05/18/2024 2:30 PM EDT Telemedicine [facility] [address] [place] [address] [facility] [address] [place] [address] 06/02/2024 11:30 AM EDT Imaging Radiology [facility] [address] [place] [phone] 08/07/2024 3:00 PM EDT Office Visit [address] [phone] Tami Upton MD [address] [place] [phone] 09/08/2024 2:40 PM EDT Office Visit Hepatology, [facility] [address] [place] [address] Katty Blackmon DO [address] [place] [address] Scheduled Procedures Name Priority Associated Diagnoses Date/Ti me ESOPHAGOGASTRODUODENOSCOPY ( EGD), FLEXIBLE, TRANSORAL, ENDOSCOPIC ULTRASOUND Recall Alcohol abuse Hepatic fibrosis ESOPHAGOGASTRODUODENOSCOPY ( EGD), FLEXIBLE, TRANSORAL, DIAGNOSTIC Recall Alcohol abuse Hepatic fibrosis Health Maintenance Due Date Last Done Comments COVID-19 Vaccine (2023- season) 2023 Influenza Vaccine (FLU shot) (#1) 2023 11/24/2022 Diabetes Screening 02/12/2027 05/01/2024, 1 04/15/2023, 12/06/2023, Additional history exists [...] Advance Directives occurred with: Patient Care Teams Metal Fabricator Apprentice Relationship Specialty Start Date End Date Seeland, Tami Valarie, MD [address] [place] [phone] PCP - General Family Medicine 04/14/24 documented as of this encounter
--- OUTSIDE RECORDS SUMMARY | 2024-07-04 03:24 | External Medical Summary | Summary of Care ---
Author Name Unknown Organization [facility] Address [address] [place] [address] Phone [phone] Care Team Providers Care Anatomy Teacher Name Role Phone Tami Upton MD Primary Care Provi elena Reason for Visit * Reason Onset Date Comments Appointment 05/18/2024 Encounter Details Date Type Department Care Team (Late st Contact Info) Description 05/18/2024 Telephone [facility] [address] [place], [place] [phone] [facility], [facility] [address] [place] [address] Appointment Allergies No known active allergiesdocumented as of this encounter (statuses as of 05/18/2024) Medications Folic Acid 1 MG Oral Tablet [...] as of this encounter (statuses as of 05/18/2024) Active Problems Problem Noted Date Diagnosed Date [...] as of this encounter (statuses as of 05/18/2024) Resolved Problems Problem Noted Date Diagnosed Date [...] as of this encounter (statuses as of 05/18/2024) Immunizations Name Administration Dates Next Due Pneumococcal [...] 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 Esdras answered and confirmed availability to get on video call. documented in this encounter Plan of Treatment Upcoming Encounters Date Type Department Care Team (Late st Contact Info) Description 06/02/2024 11:30 AM EDT Imaging Radiology [facility] [address] [place] [address] 06/03/2024 2:30 PM EDT Telemedicine [address] [place] [address] [facility] 250 [facility] [place] [address] 06/17/2024 2:30 PM EDT Telemedicine [facility] [address] [place] [address] [facility] [address] [place] [address] 08/07/2024 3:00 PM EDT Office Visit Family [address] [phone] Tami Upton MD [address] [place] [phone] 09/08/2024 2:40 PM EDT Office Visit Hepatology, [facility] [address] [place] [address] Katty Hernandes DO [address] [place] [address] Scheduled Procedures Name Priority Associated Diagnoses Date/Ti [...] Advance Directives occurred with: Patient Care Teams Anatomy Teacher Relationship Specialty Start Date End Date Tami Upton MD [address] [place], [place] [address] [phone] PCP - General Family Medicine 04/14/24 documented as of this encounter
--- OUTSIDE RECORDS SUMMARY | 2024-07-04 03:24 | External Medical Summary | Summary of Care ---
Author Name Unknown Organization [facility] Address [address] [place] [address] Phone [phone] Care Team Providers Care Freight Broker Name Role Phone Tami Upton MD Primary Care Provi elena Reason for Visit * Reason Onset Date Comments Order Request 05/01/2024 Encounter Details Date Type Department Care Team (Late st Contact Info) Description 05/01/2024 Telephone Hepatology, [facility] [address] [place] [address] Katty Blackmon DO [address] [place] [address] Order Request Allergies No known active allergiesdocumented [...] (Oral) 994,02/19/1990,1988,1988 Pneumococcal Conjugate Vacci ne, 20-valent ([id number]) 01/31/2023 Seasonal Influenza, PF, 6 M & [...] 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 Pt was admitted to [facility] on 04/21-04/23 for a gi bleed from [...] a Gi Bleed after a discharge from [facility]. Pt seen pcp today and was put [...] 9:00 AM EST Telemedicine [facility], [address] [address] Jessica Lilly MD [address] [place] [facility] [place] [address] 05/18/2024 2:30 PM EDT Telemedicine [facility] 250 [place] [address] [facility] 250 [place] [address] 06/02/2024 11:30 AM EDT Imaging Radiology [facility] [address] [place] [phone] 08/07/2024 3:00 PM EDT Office Visit [address] [phone] Tami Upton MD [address] [place] [phone] 09/08/2024 2:40 PM EDT Office Visit Hepatology, [facility] [address] [place] [address] Katty Blackmon DO [address] [place] [address] Scheduled Procedures Name Priority Associated Diagnoses Date/Ti [...] Advance Directives occurred with: Patient Care Teams Freight Broker Relationship Specialty Start Date End Date Seeland, Tami Valarie, MD [address] [place] [phone] PCP - General Family Medicine 04/14/24 documented as of this encounter
--- OUTSIDE RECORDS SUMMARY | 2024-07-04 03:24 | External Medical Summary | Summary of Care ---
Author Name Unknown Organization [facility] Address [address] [place] [address] Phone [phone] Care Team Providers Care Medical Administrative Assistant Name Role Phone Tami Upton MD Primary Care Provi elena Reason for Referral * Evaluate & Treat - Unlimited Visits (Within 10 days (routine)) - Pending Review Specialty Diagnoses / Procedures Referred By Danielle luong Referred To Contact Psychology Diagnoses Insomnia, unspecified type Jessica Lilly MD [address] [place] [address] Phone: tel: fax: Referral ID Status Reason Start Date Expiration Date Visits Requested Visits Authorized [id number] Pending Review Specialty Services Required 05/08/2024 999 [id number] Question Answer Referral Priority Within 10 days (routine) Where should this appointment be scheduled? [facility] Is this referral for medication management? No Reason for Referral: Insomnia/Sleep Disorder Specific Condition Cognitive Behavioral Therapy for Insomnia (CBTI) * Precert (Diagnostic Medical) (Within 10 days (routine)) - Pending Review Specialty Diagnoses / Procedures Referred By Danielle luong Referred To Contact Sleep Disorders Diagnoses Sleep disturbance Insomnia, unspecified type Procedures SLEEP STUDY, W/ CPAP (TREATMENT SETTINGS) Jessica Lilly MD [address] [place] [address] Phone: tel: fax: Referral ID Status Reason Start Date Expiration Date V isits Requested Visits Authorized [id number] Pending Review 05/08/2024 999 999 * Precert (Diagnostic Medical) (Within 10 days (routine)) - Pending Review Specialty Diagnoses / Procedures Referred By Danielle t Referred To Contact Sleep Disorders Diagnoses Sleep disturbance Insomnia, unspecified type Procedures SLEEP STUDY, W/O CPAP Jessica Lilly MD [address] [place] [address] Phone: tel: fax: Referral ID Status Reason Start Date Expiration Date V isits Requested Visits Authorized [id number] Pending Review 05/08/2024 999 999 Reason for Visit * Evaluate & Treat - Unlimited Visits (Within 10 days (routine)) - Pending Review Specialty Diagnoses / Procedures Referred By Danielle luong Referred To Contact Sleep Medicine / Sleep Disorders Diagnoses Other insomnia Tami Upton MD [address] [place] [phone] Phone: tel: fax: Referral ID Status Reason Start Date Expiration Date Visits Requested Visits Authorized [id number] Pending Review Specialty Services Required 04/24/2024 2 2 Encounter Details Date Type Department Care Team (Late st Contact Info) Description 05/04/2024 9:00 AM EST [facility]icine [facility], [address] [address] Jessica Lilly MD [address] [place] [address] Sleep disturbance*; Insomnia, unspecified type Allergies No known active allergiesdocumented as of this encounter (statuses as of 05/09/2024) Medications Folic Acid 1 MG Oral Tablet Take 1 Tablet by mouth in the morning. 30 Tablet 2 Active Additional Information Patient not taking.Reported on [...] 2 Tablets by mouth in the morning. Active traZODone HCl 50 MG Oral Tablet (Desyrel) Take 1 Tablet by mouth at bedtime. 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 Patient (or authorized legal ocean import representative) was then informed that this was a Telemedicine visit and that the exam was being conducted confidentially over secure lines. My office door was closed. No one else was in the room with me. Patient acknowledged consent and understanding of privacy and security of the Telemedicine visit and gave permission to have a telemedicine presenter/family member stay in the room in order to assist with the history and to conduct the exam if needed. I informed the patient thatI have reviewed their record in [facility] and presented the opportunity for them to ask any questions reg arding the visit today. The patient agreed to participate. Chief Complaint: Insomnia History of Present Illness: Mr. Esdras Storey is a 33 year old male who has a background history of mixed hyperlipidemia, alcoholic cirrhosis, portal hypertensive gastropathy, Bipolar Disorder, SANDI, and OCD presents for follow-up. He initially presented in June 2023 with history of chronic insomnia and reported use of alcohol to help with sleep. At that time due to concern for transaminitis, a hypnotic was deferred. In addition, a sleep study had been planned but has not yet been completed. He states that he was started on trazodone a couple of weeks ago after a hospital admission and he feels that this has resulted in some improvement in sleep. He denies snoring, witnessed apneas, orwaking gasping for air. He does feel that his sleep is nonrestorative. He was seen by his PCP in April 2024, at which he reported sleep disturbance due to anxiety attacks, and buspar 5 mg TID prn was prescribed. He endorses a prior history of somnambulism which last occurred a couple of of years ago. He does not act out dreams. There have not been any symptoms of cataplexy or sleep related hallucinations. He has had sleep paralysis before but this has not occurred in years. He reports a history of RLS, which he describes as there is something helpful about moving his legsagainst each other. This occurs mostly at night. He takes gabapentin 300 mg qam and 600 mg qhs. Regarding his sleep, he reports that he typically goes to bed at 2-3 am and wakes by 6-7 a.m. on all nights. He falls asleep within 60-120 minutes, which is improved from before starting trazodone. He reports he experiences significant anxiety and his mind starts racing as soon as he lies down. He has several awakenings per night, usually for no apparent reason. It can take up to 60 minutes to return to sleep. He consumes about 0-2 caffeinated beverages per day. He is no longer drinking alcohol. He takes melatonin 20 mg and trazodone 50 mg qhs. He takes no stimulants. Past Medical History: Past Medical History: Diagnosis Date INFORMATION viral menningitis age 3 Varicella without complication age 3 Past Surgical History: Past Surgical History: Procedure Laterality Date COLONOSCOPY, DIAGNOSTIC (RECTUM) 03/24/2014 normal bx/COLONOSCOPY FLEXIBLE PROXIMAL DIAGNOSTIC performed by Godfrey Enrique MD at ENDOSCOPY [facility] INFORMATION tubes in ears L-/S-SPINE PARAVERTEBRAL FACET INJ,1 LEVEL 11/22/2023 L-/S-SPINE PARAVERTEBRAL FACET INJ, 1 LEVEL performed by Gregory Lima MD at OR [facility] L-/S-SPINE PARAVERTEBRAL FACET INJ,1 LEVEL 01/27/2024 L-/S-SPINE PARAVERTEBRAL FACET INJ, 1 LEVEL performed by Manuel Bashir DO at OR [facility] L-/S-SPINE PARAVERTEBRL FACET INJ,2 LEVELS 11/22/2023 L-/S-SPINE PARAVERTEBRAL FACET INJ, 2 LEVELS performed by Gregory Lima MD at OR [facility] L-/S-SPINE PARAVERTEBRL FACET INJ,2 LEVELS 01/27/2024 L-/S-SPINE PARAVERTEBRAL FACET INJ, 2 LEVELS performed by Manuel Bashir DO at OR [facility] REMOVE TONSILS & ADENOIDS, UNDER 12 Tonsillectomy/Adenoids,<12 Y/O Family History: Family History Problem Relation Name Age of Onset Other (asthma) Brother Older brother Other (alcohol) Brother Older brother Other (drug abuse) Brother Older brother Other (smoking) Brother Older brother Other (Other) Brother Older brother Other (skin disorders) Other denies any in family Social History: Social History Tobacco Use Smoking Status Every Day Current packs/day: 0.50 Average packs/day: 0.5 packs/day for 21.2 years (10.6 ttl pk-yrs) Types: Cigarettes Start date: 2003 Smokeless Tobacco Never Allergies/ADRs: Review of patient's allergies indicates: No Known Allergies Home medication list has been reviewed and reconcillation was performed as below: Current Outpatient Medications Medication Sig Dispense Refill predniSONE 20 MG Oral Tablet (Deltasone) Take 2 Tablets by mouth in the morning. traZODone HCl 50 MG Oral Tablet (Desyrel) Take 1 Tablet by mouth at bedtime. Gerardo-Phos 250 Neutral [id number] MG Oral Tablet Take 2 Tablets by mouth in the morning and 2 Tablets at noon and 2 Tablets in the evening and 2 Tablets before bedtime. Gabapentin 300 MG Oral Capsule (Neurontin) TAKE 1 CAPSULE BY MOUTH IN THE MORNING AND 2 IN THE EVENING 90 Capsule 5 busPIRone HCl 5 MG Oral Tablet (Buspar) Take 1 Tablet by mouth 3 times a day as needed (Anxiety). 90 Tablet 3 Acetaminophen 325 MG Oral Capsule Take 500 mg by mouth every evening. One to two tabs daily. Furosemide 40 MG Oral Tablet (Lasix) Take 1 Tablet by mouth in the morning and 1 Tablet before bedtime. 60 Tablet 3 Spironolactone 25 MG Oral Tablet (Aldactone) Take 1 Tablet by mouth in the morning. 30 Tablet 11 Furosemide 20 MG Oral Tablet (Lasix) Take 1 Tablet by mouth daily as needed (Leg swelling). 30 Tablet 2 Pantoprazole Sodium 40 MG Oral Tablet Delayed Release (Protonix) Take 1 Tablet by mouth in the morning and 1 Tablet before bedtime. 60 Tablet 5 Magnesium Chloride 64 MG Oral Tablet Delayed Release (Mag-64) Take 1 Tablet by mouth in the morningand 1 Tablet before bedtime. (Patient not taking: Reported on 05/01/2024) Vitamin B Complex Oral Tablet Take 1 Tablet by mouth in the morning. (Patient not taking: Reported on 05/01/2024) Nadolol 40 MG Oral Tablet (Corgard) Take 1 Tablet by mouth in the morning. 90 Tablet 1 Paliperidone ER 9 MG Oral Tablet Extended Release 24 Hour (Invega) Take 1 Tablet by mouth in the morning. 90 Tablet 3 Melatonin 10 MG Oral Tablet Chewable Take by mouth. Folic Acid 1 MG Oral Tablet Take 1 Tablet by mouth in the morning. (Patient not taking: Reported on05/01/2024) 30 Tablet 2 No current facility-administered medications for this visit. Physical Exam: There were no vitals taken for this visit. General: No acute distress, well nourished, and well developed HEENT: Normocephalic, conjunctiva are pink and non-injected, sclera clear Chest: No increased work of breathing Neuro: Awake, alert, no aphasia or dysarthria. EOMI. No facial asymmetry. Data: -- Serum bicarb April 2024: 27 --Ferritin February 2024: 309 --Iron February 2024: 70 --Iron binding capacity February 2024: 349 --Transferrin Saturation February 2024: 20 Assessment: Mr. Storey is a 33 year old male who presents for follow-up. Given his history of frequent nocturnal awakenings and nonrestorative sleep, a sleep study had been previously planned but not completed. This will be re- ordered today. We discussed ARLETH and its treatments including PAP, mandibular advancement devices, positional therapy, intraoral neuromuscular simulation, and surgery. Wealso discussed how untreated ARLETH can cause unrefreshing sleep and excessive daytime sleepiness, as well as how it contributes over the [facility] to cardiovascular risk, recalcitrant hypertension, andstroke risk. He is amenable to evaluation and treatment of ARLETH. He has chronic insomnia and was prescribed trazodone during recent admission with some benefit. We have discussed typical recommended OTC melatonin dosing and his current dosing has been discouraged.We have discussed how sleep disorders such as ARLETH and PLMD can lead to fragmentation of sleep and contribute to sleeping difficulty. We have also discussed sleep hygiene practices likely to be beneficial to sleep. We have reviewed the utility of cbti, and we will proceed with referral for cbti. Given that he endorses anxiety which may be a contributing factor, we have discussed psychiatry referral, and he reports that he has a pending appointment with psychiatry. He endorses leg symptoms with some features of RLS. He feels his leg symptoms may be related to anxiety. We have discussed how certain medications can be associated with RLS. We have also discussed the potential association with iron deficiency and reviewed his recent laboratory studies. We have reviewed how in some instances medication is used in the treatment of RLS and also discussed how thesesymptoms can sometimes improve with treatment of ARLETH. We have also reviewed conservative measures for RLS. Titration of gabapentin could be considered in the future. He provides clinical history of parasomnias. We have discussed how sleep disorders such as ARLETH and PLMD can lead to fragmentation of sleep and contribute to the occurrence of these behaviors. We havealso discussed how certain medications can be associated with these behaviors and how in some instances parasomnias are treated with medication. We have also reviewed safe sleeping practices and willproceed with sleep study testing. Plan: Will order a split night PSG. Recommend good sleep hygiene with regular bed/wake times, limiting naps to 1 hour, stimulus control, leaving the bed if unable to fall asleep within 30 minutes, limiting alcohol/caffeine prior to sleep, adequate sleep time, and sleeping in a cool/dark room. Will place referral for cbti. Conservative measures for RLS including leg massages, warm baths, avoiding strenuous exercise near bedtime, daily stretching/exercise, and avoiding caffeine/alcohol before bedtime discussed. Safe sleeping practices including securing doors/windows, removal of sharp objects from bedroom, removal of objects close to bed, storage of weapons locked/unloaded, placing a pillow between pt and bed partner, and fischer for steps reviewed. Recommend weight loss with a healthy diet and exercise. Pt counseled to avoid driving or operating heavy machinery if drowsy. RTC 3 months Jessica Lilly MD Sleep Medicine Physician documented in this encounter Plan of Treatment Upcoming Encounters Date Type Department Care Team (Late st Contact Info) Description 05/18/2024 2:30 PM EDT Telemedicine [facility] [address] [facility] [place] [address] [facility] [facility] [address] [facility] [place] [address] 06/02/2024 11:30 AM EDT Imaging Radiology [facility] [address] [facility] [place] [phone] 08/07/2024 3:00 PM EDT Office Visit [address] [phone] Tami Upton MD [address] [place] [phone] 09/08/2024 2:40 PM EDT Office Visit Hepatology, [facility] [address] [place] [address] Katty Hernandes DO [address] [place] [address] Scheduled Orders Name Type Priority Associated Diagnoses Orde r Schedule SLEEP STUDY, W/O CPAP Procedures Routine Sleep disturbance Insomnia, unspecified type Ordered: 05/08/2024 SLEEP STUDY, W/ CPAP (TREATMENT SETTINGS) Procedures Routine Sleep disturbance Insomnia, unspecified type Ordered: 05/08/2024 Scheduled Procedures Name Priority Associated Diagnoses Date/Ti me ESOPHAGOGASTRODUODENOSCOPY ( EGD), FLEXIBLE, TRANSORAL, ENDOSCOPIC ULTRASOUND Recall Alcohol abuse Hepatic fibrosis ESOPHAGOGASTRODUODENOSCOPY ( EGD), FLEXIBLE, TRANSORAL, DIAGNOSTIC Recall Alcohol abuse Hepatic fibrosis Scheduled Referrals Name Type Priority Associated Diagnoses Orde r Schedule ADULT/PEDS PSYCHOLOGY REFERRAL OP Referral Within 10 days (routine) Insomnia, unspecified type Ordered: 05/08/2024 Health Maintenance Due Date Last Done Comments [...] as of this encounter Visit Diagnoses Diagnosis Sleep disturbance- Primary Sleep disturbance, unspecified Insomnia, unspecified type documented in this encounter Advance Directives * Full Code (Latest Code Status on File) Date Activated Date Inactivated Comments 03/29/2023 1:43 PM 04/02/2023 2:03 PM This order r eflects the patients wishes and were consensually agreed upon. Question Answer Comments Discussion of Advance Directives occurred with: Patient Care Teams Medical Administrative Assistant Relationship Specialty Start Date End Date Tami Upton MD [address] [place] [phone] PCP - General Family Medicine 04/14/24 documented as of this encounter
--- OUTSIDE RECORDS SUMMARY | 2024-07-04 03:24 | External Medical Summary ---
Author Name Unknown Address Unknown Organization K01:[facility] - [address] [facility] [address] Laboratory Report Ordering Provider Test Date Status KARINA STILL 05/01/2024 10:37:21 Final Observation Date Value Abnormality Reference (Units ) Status WBC, Total 05/01/2024 10:37:21 7.56 4.00-10.80 (K/uL) Final RBC 05/01/2024 10:37:21 3.86 4.50-5.25 (M/uL) Final Hemoglobin 05/01/2024 10:37:21 12.5 Below low normal 14.0-16.8 (g/dL) Final HCT 05/01/2024 10:37:21 38.1 Below low normal 40.0-48.4 (%) Final MCV 05/01/2024 10:37:21 98.7 82.0-99.5 (fL) Final MCH 05/01/2024 10:37:21 32.4 27.0-34.0 (pg) Final MCHC 05/01/2024 10:37:21 32.8 32.0-36.0 (g/dL) Final RDW 05/01/2024 10:37:21 18.6 11.5-15.5 (%) Final Platelets 05/01/2024 10:37:21 134 Below low normal 140-400 (K/uL) Final MPV 05/01/2024 10:37:21 11.2 6.6-11.1 (fL) Final Nucleated erythrocytes/100 leukocytes [Ratio] in Blood by Automated count 05/01/2024 10:37:21 0 <=0 (/100 WBCs) Final Performing Location [facility] [address] [facility] [address] [facility] [address]
--- OUTSIDE RECORDS SUMMARY | 2024-07-04 03:24 | External Medical Summary | Summary of Care ---
Author Name Unknown Organization [facility] Address [address] [place] [address] Phone [phone] Care Team Providers Care Rubber And Pounder Name Role Phone Tami Upton MD Primary Care Provi elena Reason for Visit * Reason Onset Date Comments Test Results 05/06/2024 Encounter Details Date Type Department Care Team (Late st Contact Info) Description 05/06/2024 Telephone Hepatology, 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 [address] [place] [phone] 08/07/2024 3:00 PM EDT Office Visit [address] [phone] Tami Upton MD [address] [place] [phone] 09/08/2024 2:40 PM EDT Office Visit Hepatology, [facility] [address] [place] [address] Katty Hernandes DO [address] [place] [address] Scheduled Procedures Name Priority Associated Diagnoses Date/Ti [...] Advance Directives occurred with: Patient Care Teams Rubber And Pounder Relationship Specialty Start Date End Date Tami Upton MD [address] [place] [phone] PCP - General Family Medicine 04/14/24 documented as of this encounter
--- OUTSIDE RECORDS SUMMARY | 2024-07-04 03:24 | External Medical Summary | Summary of Care ---
Author Name Unknown Organization [facility] Address [address] [place] [address] Phone [phone] Care Team Providers Care Assembler Installer General Name Role Phone Tami Upton MD Primary Care Provi elena Reason for Referral * Evaluate & Treat - Unlimited Visits (Within 10 days (routine)) - Pending Review Specialty Diagnoses / Procedures Referred By Danielle luong Referred To Contact Psychology Diagnoses Insomnia, unspecified type Jessica Lilly MD [address] [place] [address] Phone: tel: fax: Referral ID Status Reason Start Date Expiration Date Visits Requested Visits Authorized [id number] Pending Review Specialty Services Required 05/08/2024 999 [...] (TREATMENT SETTINGS) Jessica Lilly MD [address] [place] [address] Phone: tel: fax: Referral ID Status Reason Start Date Expiration Date V isits Requested Visits Authorized [id number] Pending Review 05/08/2024 999 999 * Precert (Diagnostic Medical) (Within 10 days (routine)) - Pending Review Specialty Diagnoses / Procedures Referred By Danielle t Referred To Contact Sleep Disorders Diagnoses Sleep disturbance Insomnia, unspecified type Procedures SLEEP STUDY, W/O CPAP Jessica Lilly MD [address] [place] [address] Phone: tel: fax: Referral ID Status Reason Start Date Expiration Date V isits Requested Visits Authorized [id number] Pending Review 05/08/2024 999 999 Reason for Visit * Evaluate & Treat - Unlimited Visits (Within 10 days (routine)) - Pending Review Specialty Diagnoses / Procedures Referred By Danielle luong Referred To Contact Sleep Medicine / Sleep Disorders Diagnoses Other insomnia Tami Upton MD [address] [place] [phone] Phone: tel: fax: Referral ID Status Reason Start Date Expiration Date Visits Requested Visits Authorized [id number] Pending Review Specialty Services Required 04/24/2024 2 2 Encounter Details Date Type Department Care Team (Late st Contact Info) Description 05/04/2024 9:00 AM EST Telemedicine [facility], [address] [phone] Jessica Lilly MD [address] [place] [address] Sleep disturbance*; Insomnia, unspecified type Allergies No [...] 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 Patient (or authorized legal order entry representative) was then informed that this was [...] patient thatI have reviewed their record in [facility] and presented the opportunity for them [...] performed by Godfrey Enrique MD at ENDOSCOPY [facility] INFORMATION tubes in ears L-/S-SPINE PARAVERTEBRAL FACET INJ,1 LEVEL 11/22/2023 L-/S-SPINE PARAVERTEBRAL FACET INJ, 1 LEVEL performed by Gregory Lima MD at OR [facility] L-/S-SPINE PARAVERTEBRAL FACET INJ,1 LEVEL 01/27/2024 L-/S-SPINE PARAVERTEBRAL FACET INJ, 1 LEVEL performed by Manuel Bashir DO at OR [facility] L-/S-SPINE PARAVERTEBRL FACET INJ,2 LEVELS 11/22/2023 L-/S-SPINE PARAVERTEBRAL FACET INJ, 2 LEVELS performed by Gregory Lima MD at OR [facility] L-/S-SPINE PARAVERTEBRL FACET INJ,2 LEVELS 01/27/2024 L-/S-SPINE PARAVERTEBRAL FACET INJ, 2 LEVELS performed by Manuel Bashir DO at OR [facility] REMOVE TONSILS & ADENOIDS, UNDER 12 [...] well as how it contributes over the shelter to cardiovascular risk, recalcitrant hypertension, andstroke risk. [...] Info) Description 05/18/2024 2:30 PM EDT Telemedicine [facility] [address] [facility] [place] [address] [facility] [facility] [address] [facility] [address] 06/02/2024 11:30 AM EDT Imaging Radiology [facility] [address] [facility] [place] [phone] 08/07/2024 3:00 PM EDT Office Visit [address] [phone] Tami Upton MD [address] [place] [phone] 09/08/2024 2:40 PM EDT Office Visit Hepatology, [facility] [address] [place] [address] Katty Hernandes DO [address] [place] [address] Scheduled Orders Name Type Priority Associated Diagnoses [...] Advance Directives occurred with: Patient Care Teams Assembler Installer General Relationship Specialty Start Date End Date Tami Upton MD [address] [place] [phone] PCP - General Family Medicine 04/14/24 documented as of this encounter
--- OUTSIDE RECORDS SUMMARY | 2024-07-04 03:24 | External Medical Summary ---
Author Name Unknown Address Unknown Organization K01:[facility] [address] [place] [address] Laboratory Report Ordering Provider Test Date Status AMALIA DICKSON 05/01/2024 10:37:21 Final Observation Date Value Abnormality Reference (Units ) Status Phosphate 05/01/2024 10:37:21 3.4 2.5-4.8 (m g/dL) Final Performing Location [facility] [address] [place] [address]
--- OUTSIDE RECORDS SUMMARY | 2024-07-04 03:24 | External Medical Summary ---
Author Name Unknown Address Unknown Organization K01:[facility] [address] [place] [address] Laboratory Report Ordering Provider Test Date Status AMALIA DICKSON 05/01/2024 10:37:21 Final Observation Date Value Abnormality Reference (Units ) Status Magnesium 05/01/2024 10:37:21 2.2 1.5-2.6 (m g/dL) Final Performing Location [facility] [address] [place] [address]
--- OUTSIDE RECORDS SUMMARY | 2024-07-04 03:24 | External Medical Summary | Summary of Care ---
Author Name Unknown Organization [facility] Address [address] [place] [address] Phone [phone] Care Team Providers Care Hand Drawer In Helper Name Role Phone Tami Upton MD Primary Care Provi elena Reason for Visit * Reason Comments Outpatient Testing Encounter Details Date Type Department Care Team (Latest Contact Info) Description 05/01/2024 10:40 AM [facility] Laboratory [facility] [phone] [address] Alcoholic cirrhosis of liver with ascites (HCC); Alcoholic cirrhosis of liver without ascites (HCC); Hospital discharge follow-up; Gastrointestinal hemorrhage, unspecified gastrointestinal hemorrhage type Allergies No known active allergiesdocumented as [...] 05/01/2024) Immunizations Name Administration Dates Next Due Pneumococcal [...] 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 file Not on file documented as of this encounter Plan of Treatment Upcoming Encounters Date Type Department Care Team (Late st Contact Info) Description 05/04/2024 9:00 AM EST Telemedicine [facility], [address] [address] Jessica Lilly MD [address] [facility] [place] [address] 05/04/2024 10:40 AM EST Office Visit Hepatology, [facility] [address] [place] [address] Katty Hernandes DO [address] [place] [address] 05/18/2024 2:30 PM EDT Telemedicine [facility] [place] [address] [facility] [place] [address] [place] [facility] [address] [facility] [place] [address] 06/02/2024 11:30 AM EDT Imaging Radiology [facility] [address] [place] [phone] 08/07/2024 3:00 PM EDT Office Visit [address] [phone] Tami Upton MD [address] [place] [phone] 09/08/2024 2:40 PM EDT Office Visit Hepatology, [facility] [address] [place] [address] Katty Hernandes DO [address] [place] [address] Pending Results Name Type Priority Associated Diagnoses Date /Time PT INR Lab Routine Alcoholic cirrhosis of liver with ascites (HCC) 05/01/2024 10:37 AM EST CBC WITH WBC DIFFERENTIAL Lab Routine Alcoholic cirrhosis of liver without ascites (HCC) 05/01/2024 10:37 AM EST COMPREHENSIVE METABOLIC PANEL Lab Routine Hospital discharge follow-up Gastrointestinal hemorrhage, unspecified gastrointestinal hemorrhage type 05/01/2024 10:37 AM EST PHOSPHORUS Lab Routine Hospital discharge follow-up Gastrointestinal hemorrhage, unspecified gastrointestinal hemorrhage type 05/01/2024 10:37 AM EST MAGNESIUM Lab Routine Hospital discharge follow-up Gastrointestinal hemorrhage, unspecified gastrointestinal hemorrhage type 05/01/2024 10:37 AM EST CBC Lab Routine Alcoholic cirrhosis of liver without ascites (HCC) 05/01/2024 10:37 AM EST DIFFERENTIAL, AUTOMATED Lab Routine Alcoholic cirrhosis of liver without ascites (HCC) 05/01/2024 10:37 AM EST Scheduled Procedures Name Priority Associated Diagnoses Date/Ti [...] Diagnosis Alcoholic cirrhosis of liver with ascites (HCC) Alcoholic cirrhosis of liver Alcoholic cirrhosis of liver without ascites (HCC) Alcoholic cirrhosis of liver Hospital discharge follow-up Other follow-up examination Gastrointestinal hemorrhage, unspecified gastrointestinal hemorrhage type documented in this encounter Advance Directives * Full Code (Latest Code Status on File) Date Activated Date Inactivated Comments 03/29/2023 1:43 PM 04/02/2023 2:03 PM This order r eflects the patients wishes and were consensually agreed upon. Question Answer Comments Discussion of Advance Directives occurred with: Patient Care Teams Hand Drawer In Helper Relationship Specialty Start Date End Date Tami Upton MD [address] [place] [phone] PCP - General Family Medicine 04/14/24 documented as of this encounter
--- OUTSIDE RECORDS SUMMARY | 2024-07-04 03:24 | External Medical Summary | Summary of Care ---
Author Name Unknown Organization [facility] Address [address] [place] [address] Phone [phone] Care Team Providers Care Director Of Media Name Role Phone Tami Upton MD Primary Care Provi elena Reason for Visit * Reason Onset Date Comments Order Request 05/01/2024 Encounter Details Date Type Department Care Team (Late st Contact Info) Description 05/01/2024 Telephone Hepatology, [facility] [address] [place] [address] Katty Blackmon DO [address] [place] [address] Order Request Allergies No known active allergiesdocumented [...] (Oral) 994,02/19/1990,1988,1988 Pneumococcal Conjugate Vacci ne, 20-valent ([id number]) 01/31/2023 Seasonal Influenza, PF, 6 M & [...] 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 Pt was admitted to [facility] on 04/21-04/23 for a gi bleed from [...] a Gi Bleed after a discharge from [facility]. Pt seen pcp today and was put [...] 9:00 AM EST Telemedicine [facility], [address] [address] Jessica Lilly MD [address] [place] [facility] [place] [address] 05/18/2024 2:30 PM EDT Telemedicine [facility] [address] [place] [address] [place] [facility] [address] [place] [address] 06/02/2024 11:30 AM EDT Imaging Radiology [facility] [address] [place] [phone] 08/07/2024 3:00 PM EDT Office Visit [address] [phone] Tami Upton MD [address] [place] [phone] 09/08/2024 2:40 PM EDT Office Visit Hepatology, [facility] [address] [place] [address] Katty Blackmon DO [address] [place] [address] Scheduled Procedures Name Priority Associated Diagnoses Date/Ti [...] Advance Directives occurred with: Patient Care Teams Director Of Media Relationship Specialty Start Date End Date Seeland, Tami Valarie, MD [address] [place] [phone] PCP - General Family Medicine 04/14/24 documented as of this encounter
--- OUTSIDE RECORDS SUMMARY | 2024-07-04 03:25 | External Medical Summary | Summary of Care ---
Author Name Unknown Organization [facility] Address [address] [place] [address] Phone [phone] Care Team Providers Care E Commerce Developer Name Role Phone Tami Upton MD Primary Care Provi elena Encounter Details Date Type Department Care Team ([facility] Contact Info) Description 04/23/2024 Orders Only Family Practice [address] [phone] Tami Upton MD [address] [place] [phone] Allergies No known active allergiesdocumented as of this encounter (statuses as of 04/23/2024) Medications Folic Acid 1 MG Oral Tablet [...] as of this encounter (statuses as of 04/23/2024) Active Problems Problem Noted Date Diagnosed Date [...] as of this encounter (statuses as of 04/23/2024) Resolved Problems Problem Noted Date Diagnosed Date [...] as of this encounter (statuses as of 04/23/2024) Immunizations Name Administration Dates Next Due Pneumococcal [...] 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 st Contact Info) Description 04/29/2024 11:20 AM EST Office Visit [facility] [address] [place] [phone] Katherine Schmitt PA-C [address] [place] [address] 06/02/2024 11:30 AM EDT Imaging Radiology [facility] [address] [place] [phone] 08/07/2024 3:00 PM EDT Office Visit [facility] [address] [place] [phone] Tami Upton MD [address] [place] [phone] 09/08/2024 2:40 PM EDT Office Visit Hepatology, [facility] [address] [place] [address] Katty Hernandes DO [address] [place] [address] Scheduled Procedures Name Priority Associated Diagnoses Date/Ti [...] Diagnosis Comments UPPER ENDOSCOPY, OUTSIDE PROCEDURE Routine 04/22/2024 documented in this encounter Results * UPPER ENDOSCOPY, OUTSIDE PROCEDURE (04/22/2024) 04/22/2024 us Brayan Barnes MD GASTRO UPPER Final Result OUTSIDE LAB (SEE SCANNED REPORT) documented in this encounter Advance Directives * Full Code (Latest Code Status on File) Date Activated Date Inactivated Comments 03/29/2023 1:43 PM 04/02/2023 2:03 PM This order r eflects the patients wishes and were consensually agreed upon. Question Answer Comments Discussion of Advance Directives occurred with: Patient Care Teams E Commerce Developer Relationship Specialty Start Date End Date Tami Upton MD [address] [place] [phone] PCP - General Family Medicine 04/14/24 documented as of this encounter
--- OUTSIDE RECORDS SUMMARY | 2024-07-04 03:25 | External Medical Summary | Summary of Care ---
Author Name Unknown Organization [facility] Address [address] [place] [address] Phone [phone] Care Team Providers Care Shoe Handler Name Role Phone Tami Upton MD Primary Care Provi elena Reason for Visit * Reason Onset Date Comments Med Request 04/23/2024 Encounter Details Date Type Department Care Team ([facility] Contact Info) Description 04/23/2024 Telephone Family Practice [address] [phone] Tami Upton MD [address] [place] [phone] Med Request Allergies No known active allergiesdocumented as of this encounter (statuses as of 04/24/2024) Medications Folic Acid 1 MG Oral Tablet [...] as of this encounter (statuses as of 04/24/2024) Active Problems Problem Noted Date Diagnosed Date [...] as of this encounter (statuses as of 04/24/2024) Resolved Problems Problem Noted Date Diagnosed Date [...] as of this encounter (statuses as of 04/24/2024) Immunizations Name Administration Dates Next Due DTaP Dipth/Tet/Acell Pertussis (Infanrix), Peds 08/22/1993,02/19/1990,03/27/1989,1988,1988 HIB PRP-T, 4 Dose, PF, IM (H iberix, ActHib) 11/27/1989 Hepatitis B, 0-19 yrs 10/11/1998,03/21/1998,01/02 MMR - Measles/Mumps/Rubella Vaccine 08/22/1993,1 OPV - Polio Virus Vaccine (Oral) 994,02/19/1990,1988,1988 Pneumococcal Conjugate Vacci ne, 20-valent ([id number]) 01/31/2023 Seasonal Influenza, PF, 6 M & [...] 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 There are some records scanned in the chart. Please advise. Thanks. * Telephone Encounter - Pablo Park OSA - 04/23/2024 11:16 AM EST Pt was just discharged from [facility] today. He states he was vomiting blood due to an issue with alcohol. He states he does not sleep for days and then will drink so he can sleep. Pt is reqeusting something be prescribed for his insomnia so he can avoid this. Please advise pt at [phone]. documented in this encounter Plan of Treatment Upcoming Encounters Date Type Department Care Team (Late st Contact Info) Description 04/29/2024 11:20 AM EST Office Visit [facility] [address] [place] [phone] Katherine Schmitt PA-C [address] [place] [address] 06/02/2024 11:30 AM EDT Imaging Radiology [facility] 132 [facility] [place] [phone] 08/07/2024 3:00 PM EDT Office Visit [facility] [address] [place] [phone] Tami Upton MD [address] [place] [phone] 09/08/2024 2:40 PM EDT Office Visit Hepatology, [facility] [address] [place] [address] Katty Hernandes DO [address] [place] [address] Scheduled Procedures Name Priority Associated Diagnoses Date/Ti [...] Advance Directives occurred with: Patient Care Teams Shoe Handler Relationship Specialty Start Date End Date Tami Upton MD [address] [place] [phone] PCP - General Family Medicine 04/14/24 documented as of this encounter
--- OUTSIDE RECORDS SUMMARY | 2024-07-04 03:25 | External Medical Summary | Summary of Care ---
Author Name Unknown Organization [facility] Address [address] [place] [address] Phone [phone] Care Team Providers Care Photo Mask Cleaner Name Role Phone Tami Upton MD Primary Care Provi elena Reason for Visit * Reason Onset Date Comments Med Request 04/23/2024 Encounter Details Date Type Department Care Team ([facility] Contact Info) Description 04/23/2024 Telephone Family Practice [address] [phone] Tami Upton MD [address] [place] [phone] Med Request Allergies No known active [...] (Oral) 994,02/19/1990,1988,1988 Pneumococcal Conjugate Vacci ne, 20-valent ([id number]) 01/31/2023 Seasonal Influenza, PF, 6 M & [...] 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 He states he was vomiting blood due to an issue with alcohol. He states he does not sleep for days and then will drink so he can sleep. Pt is reqeusting something be prescribed for his insomnia so he can avoid this. Please advise pt at [phone]. documented in this encounter Plan of Treatment Upcoming Encounters Date Type Department Care Team (Late st Contact Info) Description 04/29/2024 11:20 AM EST Office Visit [facility] [address] [place] [phone] Katherine Schmitt PA-C [address] [place] [phone] 06/02/2024 11:30 AM EDT Imaging Radiology [facility] [address] [facility] [place] [phone] 08/07/2024 3:00 PM EDT Office Visit [facility] [address] [place] [phone] Tami Upton MD [address] [place] [phone] 09/08/2024 2:40 PM EDT Office Visit Hepatology, [facility] [address] [place] [address] Katty Hernandes DO [address] [place] [address] Scheduled Procedures Name Priority Associated Diagnoses Date/Ti [...] Advance Directives occurred with: Patient Care Teams Photo Mask Cleaner Relationship Specialty Start Date End Date Tami Upton MD [address] [place] [phone] PCP - General Family Medicine 04/14/24 documented as of this encounter
--- OUTSIDE RECORDS SUMMARY | 2024-07-04 03:25 | External Medical Summary ---
Author Name Unknown Address Unknown Organization K01:[facility] [place] [address] [place] [address] Laboratory Report Ordering Provider Test Date Status KARINA STILL 05/01/2024 10:37:21 Final Warfarin Therapy
INR: 2 .0-3.0 conventional anticoagulation
INR: 2.5- 3.5 high intensity anticoagulation Observation Date Value Abnormality Reference (Units ) Status PT 05/01/2024 10:37:21 18.3 Above high normal 11 .6-15.2 (seconds) Final INR 05/01/2024 10:37:21 1.5 Above high normal 0. 8-1.2 Final Performing Location [facility] [address] [place] [address]
--- OUTSIDE RECORDS SUMMARY | 2024-07-04 03:25 | External Medical Summary | Summary of Care ---
Author Name Unknown Organization [facility] Address [address] [place] [address] Phone [phone] Care Team Providers Care Electrician Shop Name Role Phone Tami Upton MD Primary Care Provi elena Reason for Referral * Evaluate & Treat - Unlimited Visits (Within 10 days (routine)) - Pending Review Specialty Diagnoses / Procedures Referred By Danielle luong Referred To Contact Psychology Diagnoses Other insomnia Tami Upton MD [address] [place] [phone] Phone: tel: fax: Referral ID Status Reason Start Date Expiration Date Visits Requested Visits Authorized [id number] Pending Review Specialty Services Required 04/24/[phone] Question Answer Referral Priority Within 10 days (routine) Where should this appointment be scheduled? [facility] Is this referral for medication management? No Reason for Referral: Insomnia/Sleep Disorder Specific Condition Cognitive Behavioral Therapy for Insomnia (CBTI) * Evaluate & Treat - Unlimited Visits (Within 10 days (routine)) - Pending Review Specialty Diagnoses / Procedures Referred By Danielle luong Referred To Contact Sleep Medicine / Sleep Disorders Diagnoses Other insomnia Tami Upton MD [address] [place] [phone] Phone: tel: fax: Referral ID Status Reason Start Date Expiration Date Visits Requested Visits Authorized [id number] Pending Review Specialty Services Required 04/24/2024 2 2 Question Answer CAD SLEEP MED ADULT REFERRAL Insomnia/Parasomnia Referral Priority Within 10 days (routine) Where should this appointment be scheduled? 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 Not on file documented as of this encounter Miscellaneous Notes * Telephone Encounter - Evangelina Aviles OSA - 04/24/2024 1:48 PM EST Called pt # wrong sent my g msg to call us to make apt * Telephone Encounter - Madelaine Garcia RN - 04/24/2024 11:31 AM EST Transitions of Care Note Reason for Referral:Recent Admission Phone visit for follow up: [facility] Admitted to: [facility], Date: 04/21/2024 Discharged to: Home, Date: 04/23/2024 Diagnosis driving hospitalization: Hematemesis Source/Contact: Patient SUBJECTIVE Consent: Verbal consent for review of hospital discharge: Yes REVIEW OF SYSTEMS Patient/Other Reports: Current patient/caregiver problems or concerns: patient states that he is feeling much better. Patient states that he is back to his baseline and doing well. Patient does state that this was an "eye decorating consultant" for him as he had never had to call an ambulance for himself before. CV: Edema- feet Pulmonary: Denies problems Chills/Sweats/Fever:Denies chills/sweats Denies fever Appetite:Denies problems such as nausea, vomiting, burning, decreased appetite Current diet: regular Bowel: denies problems Bladder: denies problems Wound (If applicable): N/A Pain:Denies Sleep:Problematic-patient has insomnia Sleeps 2 hours per night on average FUNCTIONAL STATUS: ADL'S: Needs Assistance With:N/A as pt is independent IADL'S: Needs Assistance With:N/A as pt is independent Cognitive and Mental Health: denies problems, alert and oriented x 3, and able to communicate, understand instructions, process information. MEDICATION RECONCILIATION Medications: Discharge med list reviewed with patient or caregiver Reviewed and updated all prescription and OTC medications in Epic New medication(s) filled since hospitalization- Prednisone, Trazodone Reports all medications taken as prescribed. Denies side effects ASSESSMENT Medication Risk Assessment: Taking sedatives/hypnotics/narcotic analgesics and increased fall risk Elevated LFTs Did patient fail outpatient treatment? No Discharge instructions available for review? Yes PLAN Symptom Monitoring Interventions:Member/caregiver education - signs and symptoms to contact PrimaryCare (DO NOT DELETE-Three asif symptoms patient is to report to PCP) 1. N/V/D 2. Abdominal pain 3. SOB Punch Press Operator HelperStation Mechanic Helper of Care interventions/Action Plan: Medication reconciliation and 5 - 7 day follow-up with PCP in place - Date: 04/29/2024 Educated on role of [facility] completed with patient/caregiver. Educated patient/caregiver on patient right to have input on [facility] plan of care. Verification of Home Health/DME if indicated: NO N/A Identified Care Gaps: Yes Care Gaps closed this call: Appointment made or confirmed, Life planning discussed, Medication adherence, Medication monitoring, Medication optimization, Plan of care optimization, Post discharge appointment, and Safety and self care issues addressed Re-evaluation of Plan of Care and progress towards goals achievement: Patient education this visit: Verbal, see above Plan to follow-up as previously scheduled, instructed to call Primary Care Provider with change in symptoms or as needed before next follow-up, discharge needs met, verbalizes understanding and agrees with plan. Psychology referral placed per patient request. Sleep medicine referral placed. Madelaine Garcia RN documented in this encounter Plan of Treatment Upcoming Encounters Date Type Department Care Team ([facility] st Contact Info) Description 04/29/2024 11:20 AM EST Office Visit [address] [phone] Katherine Schmitt PA-C [address] [place] [address] 06/02/2024 11:30 AM EDT Imaging Radiology [facility] [address] [place] [phone] 08/07/2024 3:00 PM EDT Office Visit [facility] [phone] Tami Upton MD [facility] [place] [phone] 09/08/2024 2:40 PM EDT Office Visit Hepatology, [facility] [address] [place] [address] Katty Hernandes DO [address] [place] [address] Scheduled Procedures Name Priority Associated Diagnoses Date/Ti me ESOPHAGOGASTRODUODENOSCOPY ( EGD), FLEXIBLE, TRANSORAL, ENDOSCOPIC ULTRASOUND Recall Alcohol abuse Hepatic fibrosis ESOPHAGOGASTRODUODENOSCOPY ( EGD), FLEXIBLE, TRANSORAL, DIAGNOSTIC Recall Alcohol abuse Hepatic fibrosis Scheduled Referrals Name Type Priority Associated Diagnoses Orde r Schedule SLEEP MEDICINE REFERRAL OP Referral Within 10 days (routine) Other insomnia Ordered: 04/24/2024 ADULT/PEDS PSYCHOLOGY REFERRAL OP Referral Within 10 [...] as of this encounter Visit Diagnoses Diagnosis Other insomnia- Primary documented in this encounter Advance Directives * Full Code (Latest Code Status on File) Date Activated Date Inactivated Comments 03/29/2023 1:43 PM 04/02/2023 2:03 PM This order r eflects the patients wishes and were consensually agreed upon. Question Answer Comments Discussion of Advance Directives occurred with: Patient Care Teams Electrician Shop Relationship Specialty Start Date End Date Tami Upton MD [address] [place] [phone] PCP - General Family Medicine 04/14/24 documented as of this encounter
--- OUTSIDE RECORDS SUMMARY | 2024-07-04 03:25 | External Medical Summary | Summary of Care ---
Author Name Unknown Organization [facility] Address [address] [place] [address] Phone [phone] Care Team Providers Care Manager Search Name Role Phone Tami Upton MD Primary Care Provi elena Reason for Referral * Evaluate & Treat - Unlimited Visits (Within 10 days (routine)) - Pending Review Specialty Diagnoses / Procedures Referred By Danielle luong Referred To Contact Psychology Diagnoses Other insomnia Tami Upton MD [address] [place] [phone] Phone: tel: fax: Referral ID Status Reason Start Date Expiration Date Visits Requested Visits Authorized [id number] Pending Review Specialty Services Required 04/24/2024 999 [...] Disorders Diagnoses Other insomnia Tami Upton MD [address] [place] [phone] Phone: tel: fax: Referral ID Status Reason Start Date Expiration Date Visits Requested Visits Authorized [id number] Pending Review Specialty Services Required 04/24/2024 2 2 Question Answer CAD SLEEP MED ADULT REFERRAL Insomnia/Parasomnia Referral Priority Within 10 days (routine) Where should this appointment be scheduled? 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 Patient states that he is back to his baseline and doing well. 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 N/V/D 2. Abdominal pain 3. 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 Care interventions/Action Plan: Medication reconciliation and [...] Upcoming Encounters Date Type Department Care Team ([facility] st Contact Info) Description 04/29/2024 11:20 AM EST Office Visit [facility] [address] [place] [phone] Katherine Schmitt PA-C [address] [place] [phone] 06/02/2024 11:30 AM EDT Imaging Radiology [facility] [address] [place] [phone] 08/07/2024 3:00 PM EDT [facility] [phone] Tami Upton MD [address] [place], [place] [address] [phone] 09/08/2024 2:40 PM EDT Office Visit Hepatology, [facility] [address] [place] [address] Katty Hernandes DO [address] [place] [phone] Scheduled Procedures Name Priority Associated Diagnoses Date/Ti [...] Directives occurred with: Patient Care Teams Manager Search Relationship Specialty Start Date End Date Tami Upton MD [address] [place] [phone] PCP - General Family Medicine 04/14/24 documented as of this encounter
--- OUTSIDE RECORDS SUMMARY | 2024-07-04 03:25 | External Medical Summary | Summary of Care ---
Author Name Unknown Organization [facility] Address [address] [place] [address] Phone [phone] Care Team Providers Care Grain Processor Name Role Phone Tami Upton MD Primary Care Provi elena Reason for Referral * Evaluate & Treat - Unlimited Visits (Within 10 days (routine)) - Pending Review Specialty Diagnoses / Procedures Referred By Danielle luong Referred To Contact Psychology Diagnoses Other insomnia Tami Upton MD [address] [place] [phone] Phone: tel: fax: Referral ID Status Reason Start Date Expiration Date Visits Requested Visits Authorized [id number] Pending Review Specialty Services Required 04/24/2024 999 [...] Disorders Diagnoses Other insomnia Tami Upton MD [address] [place] [phone] Phone: tel: fax: Referral ID Status Reason Start Date Expiration Date Visits Requested Visits Authorized [id number] Pending Review Specialty Services Required 04/24/2024 2 2 Question Answer CAD SLEEP MED ADULT REFERRAL Insomnia/Parasomnia Referral Priority Within 10 days (routine) Where should this appointment be scheduled? [facility] Reason for Visit * Reason Onset Date Comments Hospital Follow-Up 04/24/2024 KAILA Encounter Details Date Type Department Care Team ([facility] st Contact Info) Description 04/24/[address] [phone] Madelaine Garcia RN Hospital Follow-Up [...] (Oral) 994,02/19/1990,1988,1988 Pneumococcal Conjugate Vacci ne, 20-valent ([id number]) 01/31/2023 Seasonal Influenza, PF, 6 M & [...] Industry Job Start Date Job End Date [employer] Not on file Not on file Not [...] visit for follow up: KAILA Admitted to: [facility], Date: 04/21/2024 Discharged to: Home, Date: 04/23/2024 Diagnosis driving hospitalization: Hematemesis Source/Contact: Patient SUBJECTIVE Consent: Verbal consent for review of hospital discharge: Yes REVIEW OF SYSTEMS Patient/Other Reports: Current patient/caregiver problems or concerns: patient states that he is feeling much better. Patient states that he is back to his baseline and doing well. 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 N/V/D 2. Abdominal pain 3. 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 [address] [place] [phone] 08/07/2024 3:00 PM EDT [facility] [place] [phone] Tami Upton MD [address] [facility] [phone] 09/08/2024 2:40 PM EDT Office Visit Hepatology, [facility] [address] [place] [address] Katty Hernandes DO [address] [place] [address] Scheduled Procedures Name Priority Associated Diagnoses Date/Ti [...] Advance Directives occurred with: Patient Care Teams Grain Processor Relationship Specialty Start Date End Date Tami Upton MD [address] [place] [phone] PCP - General Family Medicine 04/14/24 documented as of this encounter
--- OUTSIDE RECORDS SUMMARY | 2024-07-04 03:25 | External Medical Summary ---
Author Name Unknown Address Unknown Organization K01:[facility] [place] [address] [facility] [address] Laboratory Report Ordering Provider Test Date Status AMALIA DICKSON 05/01/2024 10:37:21 Final Observation Date Value Abnormality Reference (Units ) Status BUN 05/01/2024 10:37:21 16 6-20 (mg/dL) Final Creatinine 05/01/2024 10:37:21 0.6 0.6-1.2 (mg/dL) Final Glomerular filtration rate/1.73 sq M.predicted [Volume Rate/Area] in Serum, Plasma or Blood by Creatinine-based formula (CKD-EPI) 05/01/2024 10:37:21 >90 >=60 (mL/min) Final eGFR is calculated based on the CKD-EPI 2020 equation. Sodium 05/01/2024 10:37:21 137 135-146 (m mol/L) Final Potassium 05/01/2024 10:37:21 3.6 3.5-5.1 (m mol/L) Final Cl 05/01/2024 10:37:21 98 98-107 (mm ol/L) Final CO2 05/01/2024 10:37:21 27 22-32 (mmo l/L) Final Anion gap 05/01/2024 10:37:21 12 7-15 (mmol /L) Final Glucose 05/01/2024 10:37:21 87 70-120 (mg /dL) Final Albumin 05/01/2024 10:37:21 4.0 3.8-5.0 (g /dL) Final AST (Aspartate aminotransferase) 05/01/2024 10:37:21 107 Above high normal 10-50 (U/L) Final Alk Phos 05/01/2024 10:37:21 106 35-130 (U/ L) Final Bilirubin, Total 05/01/2024 10:37:21 3.9 Above high no rmal <=1.2 (mg/dL) Final Calcium 05/01/2024 10:37:21 9.2 8.4-10.2 ( mg/dL) Final Protein 05/01/2024 10:37:21 6.5 6.0-8.3 (g /dL) Final ALT (Alanine aminotransferase) 05/01/2024 10:37:21 81 Above high normal 10-50 (U/L) Final Performing Location [facility] [place] [address] [facility] [address]
--- OUTSIDE RECORDS SUMMARY | 2024-07-04 03:25 | External Medical Summary ---
Author Name Unknown Address Unknown Organization K01:[facility] [place] [address] [facility] [address] Laboratory Report Ordering Provider Test Date Status KARINA STILL 05/01/2024 10:37:21 Final Observation Date Value Abnormality Reference (Units ) Status SYNC LEUKOCYTES IN BLOOD BY AUTOMATED COUNT 05/01/2024 10:37:21 7.56 4.00-10.80 (K/uL) Final Segs 05/01/2024 10:37:21 35.7 Below low normal 40.0-75.0 (%) Final Lymphs % 05/01/2024 10:37:21 44.0 Above high normal 18.0-42.0 (%) Final Monos 05/01/2024 10:37:21 14.2 Above high normal 1.0-11.0 (%) Final Eosinophils 05/01/2024 10:37:21 4.5 0.0-6.0 (%) Final Basos 05/01/2024 10:37:21 1.2 0.0-2.0 (%) Final Immature Granulocyte, Percent 05/01/2024 10:37:21 0.4 0.0-2.0 (%) Final Absolute Segs 05/01/2024 10:37:21 2.70 1.80-7.70 (K/uL) Final Lymphs, absolute 05/01/2024 10:37:21 3.33 1.00-4.80 (K/ul) Final Monos, Abs 05/01/2024 10:37:21 1.07 0.00-1.10 (K/uL) Final Eos, Abs 05/01/2024 10:37:21 0.34 0.00-0.70 (K/uL) Final Basos, Abs 05/01/2024 10:37:21 0.09 0.00-0.20 (K/uL) Final Immature Granulocytes, Number 05/01/2024 10:37:21 0.03 0.00-0.20 (K/uL) Final Performing Location [facility] [place] - [facility] [place] [address]
[2024-07-04] MEDS ORDERED: SODIUM CHLORIDE 0.9% 100 ML IV PRN ×4 (03:27→06:34)
--- NOTE | 2024-07-04 03:29 | Emergency Department Note ---
ED DC CONDITION Conditon at Discharge Condition at Discharge: Critical Impression & Plan Acute upper gastrointestinal bleeding, Alcohol intoxication, Hematemesis, Prolonged QT interval ED Provider Note Name: ADONIS PENNY Age: 33 Sex: Male Arrives Via: Ambulance Informant: Patient, EMS, mother ED Provider: Tigre Escobedo MD Chief Complaint: Vomiting blood Impression: As per impressions above Medical Decision Makin-year-old gentleman arrives for evaluation of hematemesis. Patient with a long history of alcohol abuse. Has had multiple upper GI bleeds over the last year with the most recent endoscopy showing grade 1 varices. Notes he has been trying to cut back on his alcohol over the last few days though did drink roughly a gallon of vodka in the last 48 hours. Vomiting and upper abdominal pain starting this evening. Arrived vomiting a relatively large amount of blood. He was given 1 L normal saline and 2 mg IV Ativan for initial management. Noted to have prolonged QTc on EKG thus given 2 g IV mag. Protonix and octreotide were ordered. Further IV fluids ordered. Initially vital signs relatively stable. Discussed with receiving lead early in course plan will be to stabilize in ICU and likely endoscopy this morning in the next few hours. Patient was furthermore ordered some Rocephin IV. After a little over an hour in the department patient started vomiting once again. Became somewhat hypotensive and tachycardic. At this point 1 unit PRBC was ordered and a unit of platelets as well in the setting of active bleeding and platelets less than 50 with planned endoscopy in the near future. Blood pressure and heart rate did improve at this point. Patient had been given some further Ativan as well for nausea and risk of alcohol withdrawal. Unfortunately there was some difficulty getting blood as patient's initial antibody screen was positive. Given having never received blood previously the antibody screen was repeated. This fortunately is negative. At this point was able to start giving further blood products PRBCs. Patient seemed to have somewhat stabilized until around 630 when patient began having worsening vomiting increasing lethargy and softer pressures. Decision to intubate made at this time. Intubated without difficulty by Dr. Rivas. Further blood products ordered and readied. Gastroenterology at bedside to evaluate. Triage/Nursing Notes reviewed by Me External Chart Review by me: Extensive chart review completed by me. The upper endoscopy from 04/22/2024 showing grade 1 varices was specifically reviewed. Differential:GERD, PUD, Variceal bleed, withdrawl, AVM, coagulopathy, colitis, Roz-Barney tear, esophagitis, as well as other pathologies. Vital Signs: reviewed and remarkable for wnl on arrival, hypotension as case progressed Interventions: thiamine 100mcg iv, rocephin 2gm iv, protonix iv, octreotide iv, plt iv, vit k iv, nss bolus (2.5L IV). PRBC ordered and pending due to antibodies. Labs:ED labs Reviewed by me and remarkable for extensive, see chart Imaging:X ray results are stated below per my interpretation: Chest: 1 view: No infiltrate, no effusion, normal cardiac border. EKG:As per my interpretation. Indication alcohol intoxication and vomiting. Normal sinus rhythm at 91 bpm QTc of 563. There is a prolonged QTc noted. No overt ectopy nor ischemia appreciated. When compared to April 21, 2024 similar morphology. Cardiac/Tele Monitoring: Cardiac Monitoring: An Order was placed for continuous cardiac monitoring. The monitor shows a rate of 90 with a normal sinus rhythm. Consults:Discussed with gastroenterology, critical care medicine and hospitalist services for further management and care. Plan: Disposition:Hospitalization. Condition: Critical History of Present Illness: 33-year-old gentleman arrives for evaluation of vomiting blood. Patient with a history of alcohol abuse and known esophageal varices. He arrives after several days of attempting to wean himself off alcohol. Admits he has been drinking today as well. Started vomiting this evening. Notes large quantities of blood. States some nonspecific abdominal discomfort. Also notes some diffuse body aches. States he is feeling quite weak. Denies any falls, trauma, injuries. Patient states he is feeling very shaky. Past Medical History:See Below Home Medications:See Below Allergies:See Below Vitals:Blood Pressure: 120/68, Pulse 84, RR 23, T 37.1C, O2 99% on RA Physical Exam: GENERAL: Patient is ill and severely unwell appearing and in moderate distress. Tremulous, pale. Smells of etoh. RESPIRATORY: No dyspnea. Clear to auscultation and equal bilaterally. CARDIOVASCULAR: Tachy.No murmur appreciated. GASTROINTESTINAL: Abdomen soft non-specific tenderness to palpation worse over the epigastrium, no peritonitis. BACK: No midline tenderness, no CVA tenderness EXTREMITIES: Normal motion all extremities, no cyanosis, no edema. NEUROLOGIC: Alert and oriented. No focal neurologic deficits appreciated SKIN: No rash, no jaundice, no diaphoresis. PSYCH: Appropriate GCS: 15 ED Course: Times/Reassessments: 4:45 AM. Patient began vomiting further blood. Blood pressure noted to be 80/50 and heart rate in the 130s. Further IV fluids infusing and 1 unit PRBC ordered along with a unit of platelets. Patient consented mother signed for him as he was actively vomiting blood. Further Ativan given for nausea in the setting of a prolonged QTc. 5:30 AM. Pressures a bit soft 100/60. Per nursing staff still awaiting PRBC to arrive. I called the lab to discuss this with them. They note that the patient did have an initial positive antibody screen. They are repeating the screen and at the same time running the panel to see what the antibodies are. This will take another 30 or so minutes. In the meantime patient will be given another 500 mL IV fluids. 6:15 AM. Repeat antibody screen at this time is fortunately negative. PRBC is ready. Nursing and route to get blood to start in ED. 6:35 AM. Worsening hematemesis with blood pressure dropping and patient becoming more lethargic. Intubation necessary and warranted. Morning physician Dr. Rivas intubated patient without difficulty while I continued to manage otherwise including requesting second unit PRBC and there will be 2 more units requested to be readied at lab. Critical Care: I have personally spent 90 minutes of critical care time in the direct management of this patient. Acute upper GI bleed requiring transfusion and multiple medications for management and resuscitation along with need for coordination with critical care, gastroenterology and hospitalist service. This was a life/limb threatening event. This 90 minutes is in excess of all separately billable procedures. Tigre Escobedo MD Past Med/Surg History Problem List (Updated 07/06/24 @ 10:28 by Tigre Escobedo MD) Prolonged QT interval (Acute) Hematemesis (Acute) Alcohol intoxication (Acute) Acute upper gastrointestinal bleeding (Acute) Alcoholic liver disease Hyperbilirubinemia Transaminitis Alcoholic cirrhosis Esophageal varices (Acute) Upper gastrointestinal hemorrhage (Acute) Alcoholic gastritis with bleeding Esophageal ulceration Portal hypertensive gastropathy Gastrointestinal hemorrhage with hematemesis Alcohol withdrawal (Acute) Cirrhosis Coffee ground emesis (Acute) Alcohol abuse (Acute) Alcohol withdrawal syndrome (Acute) Alcohol use disorder, severe, dependence (Acute) Alcohol intoxication (Acute) GIB (gastrointestinal bleeding) (Acute) Alcoholic hepatitis Acute alcohol abuse (Acute) Pancytopenia (Acute) Medical History Alcoholic cirrhosis HTN (hypertension) Thrombocytopenia OCD (obsessive compulsive disorder) Insomnia Bipolar 1 disorder Tobacco abuse Alcohol dependence Compression fracture of T12 vertebra Compression fracture of L1 lumbar vertebra Hepatosplenomegaly Mixed hyperlipidemia Alcohol abuse Surgical History Hx of tonsillectomy Hx of colonoscopy 2015, WNL, internal hemorrhoids Social History Smoking Status: Current every day smoker Tobacco Type: Cigarettes and E-cigarettes / Vaping Cigarettes Per Day: 1/2 pack; Second Hand Exposure: Yes; Do You Dip or Chew Tobacco: No; Hx Alcohol Use: Yes Alcohol type: hard liquor Hx Substance Use: Yes Last Used Substance: Unknown Last Used Substance Other:: 10 yrs ago Substance Use Type Other:: ectasy, mushrooms, LSD x10 yrs ago Preferred Language: Luxembourger Communication Ability: Effective Rn Vascular Required: No Beliefs That Will Affect Care: None Current Living Situation: Family and Significant Other Feels Safe at Home: Yes Assistive Devices: None Allergies Allergies Allergy/AdvReac Type Severity Reaction Status Date / Time No Known Allergies Allergy Verified 04/22/24 14:24 Home Meds Home Medications Medication Instructions Recorded Confirmed paliperidone 9 mg tablet,extended 9 mg PO QAM 10/14/23 07/04/24 release 24 hr buspirone 5 mg tablet 5 mg PO TID PRN Anxiety 04/21/24 07/04/24 furosemide 40 mg tablet 40 mg PO BID 04/21/24 07/04/24 gabapentin 300 mg capsule 300 mg PO UD 04/21/24 07/04/24 spironolactone 25 mg tablet 25 mg PO QAM 04/21/24 07/04/24 Previous Rx's Medication Instructions Recorded nadolol 40 mg tablet 40 mg PO QAM #30 tabs 04/23/24 pantoprazole 40 mg tablet,delayed 40 mg PO BID #60 tabs 04/23/24 release sodium di- and 2 tab PO QID #8 tabs 04/23/24 monophosphate-potassium phos monobasic 250 mg tablet (Phospha Neutral) trazodone 50 mg tablet 50 mg PO HS PRN insomnia #30 tabs 04/23/24 Results & Data (ED) Vital Signs Vital Signs - 24 hr 07/04/24 03:17 07/04/24 03:34 07/04/24 03:46 Temperature 37.1 C Temperature Source Oral Pulse Rate 78 84 87 Pulse Rhythm Regular Pulse Strength Normal Respiratory Rate 23 20 Respiratory Effort / Characteristics Non-Labored Spontaneous Respiratory Depth Normal Respiratory Pattern Regular Blood Pressure 120/68 135/79 Blood Pressure Mean 85 99 Pulse Oximetry 99 96 Oxygen Delivery Method Room Air Sepsis Recent Fever Within 48 Hours No Sepsis New/Unexplained Change in Mental Status No Sepsis Action Taken by Nursing No Action Required 07/04/24 03:48 07/04/24 04:06 07/04/24 04:12 Temperature Temperature Source Pulse Rate 93 H 89 101 H Pulse Rhythm Pulse Strength Respiratory Rate 17 17 20 Respiratory Effort / Characteristics Respiratory Depth Respiratory Pattern Blood Pressure 135/79 114/76 123/79 Blood Pressure Mean 97 88 93 Pulse Oximetry 100 96 98 Oxygen Delivery Method Sepsis Recent Fever Within 48 Hours Sepsis New/Unexplained Change in Mental Status Sepsis Action Taken by Nursing 07/04/24 04:30 07/04/24 04:46 07/04/24 04:58 Temperature 36.8 C Temperature Source Oral Pulse Rate 91 H 99 H Pulse Rhythm Regular Pulse Strength Normal Respiratory Rate 19 17 Respiratory Effort / Characteristics Respiratory Depth Respiratory Pattern Blood Pressure 131/87 122/82 Blood Pressure Mean 97 95 Pulse Oximetry 94 95 Oxygen Delivery Method Sepsis Recent Fever Within 48 Hours Sepsis New/Unexplained Change in Mental Status Sepsis Action Taken by Nursing 07/04/24 05:00 07/04/24 05:12 07/04/24 05:16 Temperature 36.8 C Temperature Source Oral Pulse Rate 100 H 100 H 99 H Pulse Rhythm Regular Pulse Strength Normal Respiratory Rate 15 17 17 Respiratory Effort / Characteristics Respiratory Depth Respiratory Pattern Blood Pressure 116/84 110/69 110/69 Blood Pressure Mean 93 82 82 Pulse Oximetry 94 94 92 Oxygen Delivery Method Sepsis Recent Fever Within 48 Hours Sepsis New/Unexplained Change in Mental Status Sepsis Action Taken by Nursing 07/04/24 05:30 07/04/24 05:31 07/04/24 05:45 Temperature 36.5 C Temperature Source Oral Pulse Rate 99 H 98 H 96 H Pulse Rhythm Regular Pulse Strength Normal Respiratory Rate 16 17 17 Respiratory Effort / Characteristics Respiratory Depth Respiratory Pattern Blood Pressure 104/64 104/64 112/59 L Blood Pressure Mean 77 77 76 Pulse Oximetry 92 93 93 Oxygen Delivery Method Sepsis Recent Fever Within 48 Hours Sepsis New/Unexplained Change in Mental Status Sepsis Action Taken by Nursing 07/04/24 06:01 Temperature 36.5 C Temperature Source Oral Pulse Rate 96 H Pulse Rhythm Regular Pulse Strength Normal Respiratory Rate 19 Respiratory Effort / Characteristics Respiratory Depth Respiratory Pattern Blood Pressure 116/69 Blood Pressure Mean 84 Pulse Oximetry 96 Oxygen Delivery Method Sepsis Recent Fever Within 48 Hours Sepsis New/Unexplained Change in Mental Status Sepsis Action Taken by Nursing Laboratory Data 07/06/24 10:59 07/06/24 05:02 Lab Results 07/04/24 07/04/24 Range/Units 03:27 03:29 WBC 12.41 H (4.8-10.8) K/ul RBC 3.59 L (4.70-6.10) M/uL Hgb 11.8 L (14.0-18.0) g/dl POC Hgb 11.6 L (14.0-18.0) g/dl Hct 33.7 L (42.0-52.0) % POC Hct 34 L (42-52) % MCV 93.9 (80.0-100.0) fL MCH 32.9 (25.0-34.0) pg MCHC 35.0 (32.0-36.0) g/dL RDW Std Deviation 58.9 H (36.4-46.3) fL RDW Coeff of Joe 17.3 H (11.5-14.5) % Plt Count 49 L (130-400) K/uL MPV 10.5 (9.4-12.4) fL Immature Gran % (Auto) 0.4 % Neut % (Auto) 34.4 % Lymph % (Auto) 58.2 % [place] % (Auto) 4.2 % Eos % (Auto) 2.2 % Baso % (Auto) 0.6 % Neut # (Auto) 4.27 (1.40-6.50) K/uL Lymph # (Auto) 7.22 H (1.20-3.40) K/uL [place] # (Auto) 0.52 (0.11-0.59) K/uL Eos # (Auto) 0.27 (0.00-0.50) K/uL Baso # (Auto) 0.08 (0.00-0.20) K/uL Immature Gran # (Auto) 0.05 (0.01-0.20) K/uL Blood Smear Review Cancelled PT 18.2 H (9.0-12.0) Seconds INR 1.8 H (0.9-1.1) APTT 29 (21-31) Seconds PTT Ratio 1.1 POC Sodium 140 (135-144) mmol/L Sodium 139 (136-145) mmol/L POC Potassium 3.1 L (3.3-5.0) mmol/L Potassium 3.1 L (3.5-5.1) mmol/L POC Chloride 101 (101-112) mmol/L Chloride 99 (98-107) mmol/L Carbon Dioxide 26 (21-32) mmol/L POC Total CO2 24 (24-31) mmol/L Anion Gap 14 H (3-11) POC Anion Gap 19.0 (16-25) mmol/L POC BUN 8 (7-18) mg/dl BUN 10 (6-23) mg/dl Creatinine 0.67 (0.6-1.4) mg/dl POC Creatinine 1.1 (0.6-1.3) mg/dl Est Cr Clr Drug Dosing 158.9 ml/min eGFR 124.87 BUN/Creatinine Ratio 14.9 (10-20) Glucose 114 H (70-99(Fasting)) mg/dl POC Glucose (other) 118 H (70-99) mg/dl Calcium 8.6 (8.6-10.3) mg/dl POC Ioniz Calcium William 1.00 L (1.12-1.32) mmol/l Phosphorus 3.1 (2.5-4.9) mg/dl Magnesium 1.6 L (1.7-2.4) mg/dl Total Bilirubin 4.2 H (0.2-1.0) mg/dl Direct Bilirubin 1.4 H (0-0.2) mg/dl AST 279 H (13-39) U/L ALT 115 H (7-52) U/L Alkaline Phosphatase 90 (34-104) U/L Troponin I High Sens 10.4 (0-20) pg/ml Total Protein 6.6 (6.0-8.3) gm/dl Albumin 3.8 (3.4-5.0) gm/dl Lipase 185 H (11-82) U/L TSH 2.540 (0.300-4.500) uIu/ml Ethyl Alcohol mg/dL 272.9 H (<10.0) mg/dl Blood Type A Positive Antibody Screen NEGATIVE Crossmatch See Detail Administered Medications Gabapentin (Gabapentin 300 Mg Cap) 300 mg PO QAM PUJA Stop: 08/03/24 08:59 Last Admin: 07/06/24 08:03 Dose: 300 mg Documented By: Admin: 07/05/24 11:01 Dose: 300 mg Documented By: Admin: 07/04/24 09:28 Dose: Not Given Documented By: AMITA Gabapentin (Gabapentin 300 Mg Cap) 600 mg PO QPM PUJA Stop: 08/03/24 20:59 Last Admin: 07/05/24 19:40 Dose: 600 mg Documented By: Admin: 07/04/24 19:49 Dose: Not Given Documented By: JARVIS Octreotide Acetate 500 mcg/ (Sodium Chloride) 100.5 mls @ 10.05 mls/hr IV .Q10H PUJA Stop: 07/06/24 23:59 Last Admin: 07/06/24 12:13 Dose: 50 mcg/hr, 10.1 mls/hr Documented By: Infusion: 07/06/24 12:13 Dose: Infused Documented By: Admin: 07/06/24 02:24 Dose: 50 mcg/hr, 10.1 mls/hr Documented By: Infusion: 07/06/24 02:24 Dose: Infused Documented By: Admin: 07/05/24 17:33 Dose: 50 mcg/hr, 10.1 mls/hr Documented By: Infusion: 07/05/24 17:33 Dose: Infused Documented By: Admin: 07/05/24 08:14 Dose: 50 mcg/hr, 10.1 mls/hr Documented By: Infusion: 07/05/24 08:14 Dose: Infused Documented By: Admin: 07/04/24 22:24 Dose: 50 mcg/hr, 10.1 mls/hr Documented By: Infusion: 07/04/24 22:24 Dose: Infused Documented By: Admin: 07/04/24 12:28 Dose: 50 mcg/hr, 10.1 mls/hr Documented By: Infusion: 07/04/24 12:28 Dose: Infused Documented By: Admin: 07/04/24 04:33 Dose: 50 mcg/hr, 10.1 mls/hr Documented By: OLMAN Folic Acid 1 mg/ Syringe 10 mls @ 5 mls/min IV QAM [facility] Stop: 08/04/24 08:59 Last Admin: 07/06/24 08:01 Dose: 5 mls/min Documented By: Admin: 07/05/24 08:14 Dose: 5 mls/min Documented By: GISSELLE Thiamine HCl 500 mg/ Sodium (Chloride) 55 mls @ 210 mls/hr IV DAILY PUJA Stop: 07/07/24 12:00 Last Infusion: 07/06/24 08:20 Dose: Infused Documented By: Admin: 07/06/24 08:01 Dose: 210 mls/hr Documented By: Infusion: 07/05/24 09:42 Dose: Infused Documented By: Admin: 07/05/24 09:23 Dose: 210 mls/hr Documented By: GISSELLE Multivitamins (Multivitamin Tab) 1 tab PO QAM [facility] Stop: 08/03/24 08:59 Last Admin: 07/06/24 08:03 Dose: 1 tab Documented By: Admin: 07/05/24 11:01 Dose: 1 tab Documented By: Admin: 07/04/24 09:28 Dose: Not Given Documented By: AMITA Paliperidone (Paliperidone 3 Mg Tabcr) 9 mg PO QAM [facility] Stop: 08/03/24 08:59 Last Admin: 07/06/24 08:03 Dose: 9 mg Documented By: Admin: 07/05/24 11:02 Dose: 9 mg Documented By: Admin: 07/04/24 09:28 Dose: Not Given Documented By: AMITA Discontinued Medications Fentanyl Citrate (Fentanyl Citrate Pf 100 Mcg/2 Ml Vial) Confirm Administered Dose 100 mcg .ROUTE .STK-MED ONE Stop: 07/04/24 06:58 Last Admin: 07/04/24 07:01 Dose: Not Given Documented By: OLMAN Fentanyl Citrate (Fentanyl Citrate Pf 100 Mcg/2 Ml Vial) 50 mcg IV NOW STA Stop: 07/04/24 06:59 Last Admin: 07/04/24 07:01 Dose: 50 mcg Documented By: OLMAN Fentanyl Citrate (Fentanyl Bolus From Bag) 50 mcg IV Q60M PRN PRN Reason: Pain or Agitation Stop: 07/18/24 07:04 Last Admin: 07/04/24 10:35 Dose: 50 mcg Documented By: GISSELLE Co-signed By: AMITA Fentanyl Citrate (Fentanyl Citrate 2,500 Mcg/250 Ml Bag) Confirm Administered Dose 2,500 mcg IV .STK-MED ONE Stop: 07/04/24 07:08 Last Admin: 07/04/24 07:14 Dose: Not Given Documented By: OLMAN Folic Acid (Folic Acid 1 Mg Tab) 1 mg PO QAM PUJA Stop: 08/03/24 08:59 Last Admin: 07/04/24 09:28 Dose: Not Given Documented By: AMITA Octreotide Acetate 50 mcg/ (Syringe) 10 mls @ 3 mls/min IV ONE STA Stop: 07/04/24 03:26 Last Admin: 07/04/24 04:39 Dose: 3 mls/min Documented By: OLMNA Pantoprazole Sodium 80 mg/ (Dextrose) 120 mls @ 480 mls/hr IV ONE STA Stop: 07/04/24 03:37 Last Infusion: 07/04/24 05:02 Dose: Infused Documented By: Admin: 07/04/24 04:36 Dose: 480 mls/hr Documented By: OLMAN Sodium Chloride (Nss) 1,000 mls @ 999 mls/hr IV .Q1H1M ONE Stop: 07/04/24 04:23 Last Infusion: 07/04/24 05:14 Dose: Infused Documented By: Admin: 07/04/24 04:16 Dose: 999 mls/hr Documented By: Infusion: 07/04/24 04:09 Dose: Infused Documented By: Admin: 07/04/24 03:34 Dose: 999 mls/hr Documented By: JANICE Thiamine HCl 100 mg/ Syringe 10 mls @ 2 mls/min IV NOW STA Stop: 07/04/24 03:30 Last Admin: 07/04/24 04:50 Dose: 2 mls/min Documented By: OLMAN Magnesium Sulfate/Dextrose (Magnesium Sulfate / D5w) 1 gm in 100 mls @ 200 mls/hr IV Q30M PUJA Stop: 07/04/24 04:29 Last Infusion: 07/04/24 05:02 Dose: Infused Documented By: Admin: 07/04/24 04:16 Dose: 200 mls/hr Documented By: Infusion: 07/04/24 04:16 Dose: Infused Documented By: Admin: 07/04/24 03:44 Dose: 200 mls/hr Documented By: JANICE Sodium Chloride (Nss) 1,000 mls @ 999 mls/hr IV .Q1H1M ONE Stop: 07/04/24 05:13 Last Admin: 07/04/24 04:22 Dose: Not Given Documented By: OLMAN Ceftriaxone Sodium (Rocephin) 2,000 mg in 50 mls @ 100 mls/hr IV NOW STA Stop: 07/04/24 05:01 Last Infusion: 07/04/24 05:40 Dose: Infused Documented By: Admin: 07/04/24 05:05 Dose: 100 mls/hr Documented By: OLMAN Phytonadione 5 mg/ Dextrose 50.5 mls @ 101 mls/hr IV ONE ONE Stop: 07/04/24 05:24 Last Infusion: 07/04/24 06:18 Dose: Infused Documented By: Admin: 07/04/24 05:42 Dose: 101 mls/hr Documented By: OLMAN Potassium Chloride (K Jackson / Wtr) 10 meq in 100 mls @ 100 mls/hr IV Q1H PUJA Stop: 07/04/24 09:29 Last Infusion: 07/04/24 12:41 Dose: Infused Documented By: Admin: 07/04/24 11:36 Dose: 100 mls/hr Documented By: Infusion: 07/04/24 11:32 Dose: Infused Documented By: Admin: 07/04/24 10:32 Dose: 100 mls/hr Documented By: Infusion: 07/04/24 10:14 Dose: Infused Documented By: Admin: 07/04/24 09:14 Dose: 100 mls/hr Documented By: Infusion: 07/04/24 07:14 Dose: Infused Documented By: Admin: 07/04/24 06:14 Dose: 100 mls/hr Documented By: OLMAN Sodium Chloride (Nss) 500 mls @ 999 mls/hr IV .Q31M ONE Stop: 07/04/24 06:04 Last Infusion: 07/04/24 06:18 Dose: Infused Documented By: Admin: 07/04/24 05:40 Dose: 999 mls/hr Documented By: OLMAN Sodium Chloride (Nss) 500 mls @ 999 mls/hr IV .Q31M ONE Stop: 07/04/24 06:09 Last Admin: 07/04/24 05:40 Dose: Not Given Documented By: BARRONW Pantoprazole Sodium 40 mg/ (Dextrose) 100 mls @ 20 mls/hr IV Q5H PUJA Stop: 08/03/24 05:59 Last Infusion: 07/06/24 10:06 Dose: Infused Documented By: Admin: 07/06/24 07:58 Dose: 8 mg/hr, 20 mls/hr Documented By: Infusion: 07/06/24 07:24 Dose: Infused Documented By: Admin: 07/06/24 02:24 Dose: 8 mg/hr, 20 mls/hr Documented By: Infusion: 07/06/24 02:24 Dose: Infused Documented By: Admin: 07/05/24 21:57 Dose: 8 mg/hr, 20 mls/hr Documented By: Infusion: 07/05/24 21:57 Dose: Infused Documented By: Admin: 07/05/24 17:33 Dose: 8 mg/hr, 20 mls/hr Documented By: Infusion: 07/05/24 17:33 Dose: Infused Documented By: Admin: 07/05/24 12:44 Dose: 8 mg/hr, 20 mls/hr Documented By: Infusion: 07/05/24 12:27 Dose: Infused Documented By: Admin: 07/05/24 07:27 Dose: 8 mg/hr, 20 mls/hr Documented By: Infusion: 07/05/24 07:15 Dose: Infused Documented By: Admin: 07/05/24 02:15 Dose: 8 mg/hr, 20 mls/hr Documented By: Infusion: 07/05/24 02:14 Dose: Infused Documented By: Admin: 07/04/24 21:14 Dose: 8 mg/hr, 20 mls/hr Documented By: Infusion: 07/04/24 20:58 Dose: Infused Documented By: Admin: 07/04/24 15:58 Dose: 8 mg/hr, 20 mls/hr Documented By: Infusion: 07/04/24 15:33 Dose: Infused Documented By: Admin: 07/04/24 10:33 Dose: 8 mg/hr, 20 mls/hr Documented By: Infusion: 07/04/24 10:33 Dose: Infused Documented By: Infusion: 07/04/24 07:15 Dose: 8 mg/hr, 20 mls/hr Documented By: Admin: 07/04/24 06:12 Dose: 8 mg/hr, 20 mls/hr Documented By: OLMAN Ceftriaxone Sodium (Rocephin) 2,000 mg in 50 mls @ 100 mls/hr IV ONE STA Stop: 07/04/24 06:29 Last Admin: 07/04/24 06:18 Dose: Not Given Documented By: OLMAN Ceftriaxone Sodium (Rocephin) 2,000 mg in 50 mls @ 100 mls/hr IV Q24H [facility] Stop: 07/09/24 05:59 Last Infusion: 07/06/24 05:44 Dose: Infused Documented By: Admin: 07/06/24 05:12 Dose: 100 mls/hr Documented By: Infusion: 07/05/24 05:07 Dose: Infused Documented By: Admin: 07/05/24 03:50 Dose: 100 mls/hr Documented By: JARVIS Propofol (Diprivan) 1,000 mg in 100 mls @ 0 mls/hr IV .Q0M PUJA; Protocol Stop: 07/07/24 06:44 Last Admin: 07/05/24 12:49 Dose: Not Given Documented By: Admin: 07/05/24 12:48 Dose: Not Given Documented By: Titration: 07/05/24 12:48 Dose: Infused Documented By: Admin: 07/05/24 12:48 Dose: Not Given Documented By: Titration: 07/05/24 08:40 Dose: 0 mcg/kg/min, 0 mls/hr Documented By: Titration: 07/05/24 06:51 Dose: 45 mcg/kg/min, 22.8 mls/hr Documented By: GISSELLE Co-signed By: JARVIS Titration: 07/05/24 04:23 Dose: Infused Documented By: CP Co-signed By: TLM Admin: 07/05/24 04:23 Dose: 45 mcg/kg/min, 22.8 mls/hr Documented By: CP Co-signed By: TLM Admin: 07/05/24 02:18 Dose: Not Given Documented By: Admin: 07/05/24 00:11 Dose: 45 mcg/kg/min, 22.8 mls/hr Documented By: CP Co-signed By: TLM Titration: 07/05/24 00:11 Dose: Infused Documented By: CP Co-signed By: TLM Titration: 07/04/24 22:04 Dose: 45 mcg/kg/min, 22.8 mls/hr Documented By: Titration: 07/04/24 21:17 Dose: 40 mcg/kg/min, 20.3 mls/hr Documented By: Admin: 07/04/24 20:43 Dose: 35 mcg/kg/min, 17.7 mls/hr Documented By: CP Co-signed By: CLC Titration: 07/04/24 19:53 Dose: Infused Documented By: CP Co-signed By: CLC Titration: 07/04/24 18:57 Dose: 35 mcg/kg/min, 17.7 mls/hr Documented By: KJL Co-signed By: CP Admin: 07/04/24 14:14 Dose: 35 mcg/kg/min, 17.7 mls/hr Documented By: KJL Co-signed By: MTP Titration: 07/04/24 12:51 Dose: Infused Documented By: Titration: 07/04/24 07:40 Dose: 40 mcg/kg/min, 20.3 mls/hr Documented By: Titration: 07/04/24 07:35 Dose: 35 mcg/kg/min, 17.7 mls/hr Documented By: Titration: 07/04/24 07:30 Dose: 30 mcg/kg/min, 15.2 mls/hr Documented By: Titration: 07/04/24 07:20 Dose: 25 mcg/kg/min, 12.7 mls/hr Documented By: Admin: 07/04/24 07:14 Dose: 20 mcg/kg/min, 10.1 mls/hr Documented By: BARRONW Co-signed By: COLLIN Acetaminophen (Ofirmev) 1,000 mg in 100 mls @ 400 mls/hr IV Q8H PRN PRN Reason: Fever/Mild Pain (Pain 1,2,3) Stop: 07/07/24 06:57 Last Infusion: 07/05/24 05:35 Dose: Infused Documented By: Admin: 07/05/24 05:15 Dose: 400 mls/hr Documented By: JARVIS Magnesium Sulfate/Dextrose (Magnesium Sulfate / D5w) 1 gm in 100 mls @ 50 mls/hr IV Q2H [facility] Stop: 07/04/24 11:14 Last Infusion: 07/04/24 12:32 Dose: Infused Documented By: Admin: 07/04/24 10:32 Dose: 50 mls/hr Documented By: Infusion: 07/04/24 10:32 Dose: Infused Documented By: Admin: 07/04/24 09:14 Dose: 50 mls/hr Documented By: AMITA Midazolam HCl (Versed) 125 mg in 250 mls @ 2 mls/hr IV .Q96H [facility]; Protocol Stop: 08/03/24 07:14 Last Titration: 07/04/24 14:21 Dose: Infused Documented By: GISSELLE Co-signed By: PEDRITO Titration: 07/04/24 11:09 Dose: 0 mg/hr, 0 mls/hr Documented By: GISSELLE Co-signed By: MTP Admin: 07/04/24 07:20 Dose: 1 mg/hr, 2 mls/hr Documented By: AMITA Co-signed By: PEDRITO Fentanyl Citrate (Fentanyl Citrate) 2,500 mcg in 250 mls @ 0 mls/hr IV .Q0M [facility]; Protocol Stop: 07/18/24 07:14 Last Titration: 07/05/24 09:43 Dose: Infused Documented By: GISSELLE Co-signed By: MTP Titration: 07/05/24 08:40 Dose: 0 mcg/hr, 0 mls/hr Documented By: GISSELLE Co-signed By: MTP Titration: 07/05/24 06:51 Dose: 100 mcg/hr, 10 mls/hr Documented By: GISSELLE Co-signed By: CP Admin: 07/05/24 06:20 Dose: 100 mcg/hr, 10 mls/hr Documented By: JARVIS Co-signed By: CLC Titration: 07/05/24 06:20 Dose: Infused Documented By: CP Co-signed By: CLC Titration: 07/04/24 22:04 Dose: 100 mcg/hr, 10 mls/hr Documented By: CP Co-signed By: TLM Titration: 07/04/24 21:17 Dose: 75 mcg/hr, 7.5 mls/hr Documented By: JARVIS Co-signed By: TLM Titration: 07/04/24 18:56 Dose: 50 mcg/hr, 5 mls/hr Documented By: GISSELLE Co-signed By: JARVIS Admin: 07/04/24 07:13 Dose: 25 mcg/hr, 2.5 mls/hr Documented By: OLMAN Co-signed By: COLLIN Potassium Phosphate 15 mmol/ (Sodium Chloride) 255 mls @ 88 mls/hr IV ONE ONE Stop: 07/04/24 10:23 Last Infusion: 07/04/24 12:52 Dose: Infused Documented By: Admin: 07/04/24 09:50 Dose: 88 mls/hr Documented By: GISSELLE Norepinephrine Bitartrate (Levophed/D5w) 4 mg in 250 mls @ 0 mls/hr IV .Q0M [facility]; Protocol Stop: 08/03/24 09:14 Last Titration: 07/04/24 21:24 Dose: Infused Documented By: CP Co-signed By: TLM Titration: 07/04/24 09:25 Dose: 0 mcg/kg/min, 0 mls/hr Documented By: AMITA Co-signed By: GISSELLE Admin: 07/04/24 09:15 Dose: 0.05 mcg/kg/min, 15.8 mls/hr Documented By: AMITA Co-signed By: PEDRITO Thiamine HCl 100 mg/ Syringe 10 mls @ 2 mls/min IV QAM [facility] Stop: 08/04/24 08:59 Last Admin: 07/05/24 08:14 Dose: 2 mls/min Documented By: GISSELLE Lactated Ringer's (Lr) 500 mls @ 999 mls/hr IV .Q31M ONE Stop: 07/05/24 01:52 Last Infusion: 07/05/24 02:19 Dose: Infused Documented By: Admin: 07/05/24 01:40 Dose: 999 mls/hr Documented By: JARVIS Calcium Gluconate () 1,000 mg in 60 mls @ 240 mls/hr IV NOW STA Stop: 07/05/24 08:40 Last Infusion: 07/05/24 09:00 Dose: Infused Documented By: Admin: 07/05/24 08:44 Dose: 240 mls/hr Documented By: GISSELLE Parenteral Electrolytes (Plasma-Lyte A Ph 7.4) 1,000 mls @ 100 mls/hr IV .Q10H [facility] Stop: 07/08/24 12:44 Last Infusion: 07/06/24 10:06 Dose: Infused Documented By: Admin: 07/06/24 07:58 Dose: 100 mls/hr Documented By: Infusion: 07/06/24 07:53 Dose: Infused Documented By: Admin: 07/05/24 21:53 Dose: 100 mls/hr Documented By: Infusion: 07/05/24 21:53 Dose: Infused Documented By: Admin: 07/05/24 12:47 Dose: 100 mls/hr Documented By: GISSELLE Lorazepam (Lorazepam 2 Mg/1 Ml Vial) 2 mg IV NOW STA Stop: 07/04/24 03:24 Last Admin: 07/04/24 03:30 Dose: 2 mg Documented By: OLMAN Lorazepam (Lorazepam 2 Mg/1 Ml Vial) 2 mg IV NOW STA Stop: 07/04/24 04:43 Last Admin: 07/04/24 04:45 Dose: 2 mg Documented By: OLMAN Midazolam HCl (Midazolam Hcl 1 Mg/Ml 2ml Vial) Confirm Administered Dose 2 mg .ROUTE .STK-MED ONE Stop: 07/04/24 06:59 Last Admin: 07/04/24 07:01 Dose: Not Given Documented By: OLMAN Midazolam HCl (Midazolam Hcl 1 Mg/Ml 2ml Vial) 2 mg IV NOW STA Stop: 07/04/24 06:59 Last Admin: 07/04/24 07:01 Dose: 2 mg Documented By: OLMAN Midazolam HCl (Midazolam Hcl 5 Mg/Ml 2ml Vial) 4 mg IV NOW STA Stop: 07/04/24 07:08 Last Admin: 07/04/24 07:12 Dose: 4 mg Documented By: LEE Miscellaneous (Stat Iv/Im) 1 each N/A NOW STA Stop: 07/04/24 03:24 Last Admin: 07/04/24 10:32 Dose: 1 each Documented By: GISSELLE Miscellangel (Rapid Sequence Induction Bag) Confirm Administered Dose 1 each N/A .STK-MED ONE Stop: 07/04/24 06:33 Last Admin: 07/04/24 09:04 Dose: Not Given Documented By: AMITA Altman (Stat Iv Infusion Titration Per Protocol) 1 each N/A NOW STA Stop: 07/04/24 07:06 Last Admin: 07/04/24 10:32 Dose: 1 each Documented By: GISSELLE Altman (Icu Protocol For Hyperglycemia) 1 each N/A ACHS [facility] Stop: 07/06/24 08:59 Last Admin: 07/06/24 07:34 Dose: Not Given Documented By: Admin: 07/05/24 20:02 Dose: Not Given Documented By: Admin: 07/05/24 17:33 Dose: Not Given Documented By: Admin: 07/05/24 12:48 Dose: Not Given Documented By: Admin: 07/05/24 08:13 Dose: Not Given Documented By: Admin: 07/04/24 21:26 Dose: Not Given Documented By: Admin: 07/04/24 18:33 Dose: Not Given Documented By: Admin: 07/04/24 12:51 Dose: Not Given Documented By: Admin: 07/04/24 09:50 Dose: Not Given Documented By: GISSELLE Norepinephrine Bitartrate (Norepinephrine/D5w 4 Mg/250 Ml) Confirm Administered Dose 4 mg IV .STK-MED ONE Stop: 07/04/24 06:33 Last Admin: 07/04/24 09:27 Dose: Not Given Documented By: AMITA Norepinephrine Bitartrate (Norepinephrine/D5w 4 Mg/250 Ml) Confirm Administered Dose 4 mg IV .STK-MED ONE Stop: 07/04/24 08:09 Last Admin: 07/04/24 09:19 Dose: Not Given Documented By: AMITA Potassium Chloride (Potassium Chloride 20 Meq/15 Ml Udc) 40 meq GT NOW STA Stop: 07/04/24 07:09 Last Admin: 07/04/24 11:35 Dose: Not Given Documented By: GISSELLE Propofol (Propofol Bolus From Bag) 20 mg IV Q5M PRN PRN Reason: Sedation Stop: 07/07/24 06:43 Last Admin: 07/04/24 11:36 Dose: 20 mg Documented By: GISSELLE Co-signed By: AMITA Admin: 07/04/24 10:34 Dose: 20 mg Documented By: GISSELLE Co-signed By: AMITA Vecuronium [place] (Vecuronium [place] 10 Mg Vial) 10 mg IV NOW STA Stop: 07/04/24 08:07 Last Admin: 07/04/24 09:01 Dose: 10 mg Documented By: AMITA Co-signed By: PEDRITO Vecuronium [place] (Vecuronium [place] 10 Mg Vial) Confirm Administered Dose 10 mg IV .STK-MED ONE Stop: 07/04/24 08:09 Last Admin: 07/04/24 09:04 Dose: Not Given Documented By: AMITA Imaging Data Radiologist's Impression: Chest X-Ray 07/04/24 03:25 EXAM: XR chest 1V portable CLINICAL HISTORY: vomiting blood TECHNIQUE: An X-ray image of the chest is obtained in PA projection. COMPARISON: No prior studies are available for comparison. FINDINGS: Pulmonary Parenchyma: Prominent both hilum and bronchovasculat markings, likely bronchitis/congestion. The right hemidiaphragm is elevated more than usual. No evidence of consolidation, collapse, or focal opacities. No pulmonary nodules are identified. No evidence of pleural effusion or pleural thickening. Heart and Mediastinum: Heart size and shape are normal. No mediastinal widening or masses. No hilar or mediastinal lymphadenopathy. Slightly widened superior mediastinum likely by vascular shadow. Bony Thorax: Bony thorax appears intact without fractures or deformities. Soft Tissues: Soft tissues overlying the chest wall are unremarkable. IMPRESSION: 1. Prominent both hilum and bronchovasculat markings, likely bronchitis/congestion. 2. The right hemidiaphragm is elevated more than usual. 3. No evidence of consolidation. No pleural effusion. Electronically signed by Rodolfo Storm 07-04-2024 05:13 AM Discharge Plan Visit Data Chief Complaint: Vomiting Stated Complaint: Vomiting, Alcohol Withdrawl ED Provider: Autumn Rivas Discharge Problem: Acute upper gastrointestinal bleeding, Alcohol intoxication, Hematemesis, Prolonged QT interval Patient Disposition: Admitted As Inpatient Condition: Critical Discharge Instructions Interventions: ED Discharge Assessment Last Done: 07/04/24 07:26 Discharge Problem: Alcohol intoxication Qualifiers: Complication of substance-induced condition: uncomplicated Qualified Code(s): F 10.920 - Alcohol use, unspecified with intoxication, uncomplicated Hematemesis Qualifiers: Nausea presence: with nausea Qualified Code(s): K92.0 - Hematemesis
[2024-07-04] MEDS: LORazepam 2 MG/1 ML VIAL IV STA ×2 (03:30→04:45)
[2024-07-04] MEDS: SODIUM CHLORIDE 0.9% 1,000 ML IV ONE ×2 (03:34→04:22)
[2024-07-04 03:42] LABS: iSTAT Creatinine 1.1 mg/dl (0.6-1.3); iSTAT Hemoglobin 11.6 g/dl (14.0-18.0); iSTAT Potassium 3.1 mmol/L (3.3-5.0)
[2024-07-04] MEDS: MAGNESIUM SULFATE / D5W 1 GM/100 ML BAG IV SCH ×2 (03:44→09:14)
--- NOTE | 2024-07-04 04:14 | Critical Care Consultation ---
Date of Consultation July 04, 2024 Assessment & Plan (1) Alcoholic cirrhosis: (2) Esophageal varices: (3) Upper gastrointestinal hemorrhage: Plan Reason Critically Ill: 1. Acute upper GI bleeding 2. Electrolyte disturbances 3. ETOH cirrhosis (MELD Na 19) 4. SASHA 5. Prolonged QTc Neuro - ETOH withdrawal protocol Propofol gtt and fentanyl prn RASS goal -1 Hold home trazodone and anxiolytics Cardiac - MAP goal > 65mmHg, avoid hypertension Admit EKG with QTc prolongation Respiratory - HOB 30, VAP protocol Daily SAT/SBT, possibly extubate after EGD SpO2 goal > 92% GI - Diet: Strict NPO SUP: Continue Protonix gtt Octreotide gtt Gastroenterology consultation, appreciate recommendations Bowel regimen: Held RENAL/LYTES - Replete electrolytes as indicated Vazquez for accurate I/Os Maintain net even to net negative ENDO - BG 140-180 per SCC guidelines ISS if needed while inpatient HEME - PRBC placed on hold Transfuse for HGB < 7 or active bleeding Transfuse for PLT < 10K or active bleeding ID - Received empiric Rocephin in ED MRSA pending, UA WNL, trend fever curve and clinical course for continuation of antibiotics LINES/TUBES/DRAINS - ETT (Day #1) OGT (Day #1) Vazquez (Day #1) PIV x3 DVT PROPHYLAXIS - Contraindicated I have personally spent 48 minutes of critical care time in the direct management of this patient. This is a life/limb threatening event. This includes time spent evaluating patient, direct bedside care, chart review, placing orders, interpretation of diagnostic studies, discussion with consultants, patient, and family members, as well as other required patient management activities. This time is exclusive of all separately billable procedures, and teaching time and separate from and in addition to any other critical care service time. Thank you for allowing us to participate in the care of this patient. Please re timmy to my attending physician's documentation for any further recommendations. History of Present Illness Reason for Consultation: GI bleed Requesting Physician: Gregg Attending Physician: Gregg History of Present Illness Mr. Esdras Storey is a 33YOM with a history of ETOH dependance, tobacco dependence, ETOH withdrawal without DTs, Bipolar disorder I, SANDI, insomnia, ETOH cirrhosis, portal hypertensive gastropathy with GI bleeding, thrombocytopenia, and ETOH hepatitis who presented to [facility] ED in the endband sizer of 07/04/2024 due to acute onset of hematemesis. Per report, patient was attempting detox at home from his usual 1 gallon vodka daily when he began vomiting blood around 0230. EMS noted large volume emesis with BRB and clots present. He is actively v omiting on initial ED evaluation. Hemodynamically stable on arrival. He was provided 2L NSS, Protonix bolus and infusion, octreotide infusion, and dose of lorazepam. Due to continued hematemesis and hypotension he was transfused 1U PRBC and 1 PLT. Work-up thus far revealing HGB 11.8 (decreased from baseline 13), TCP 49K, leukocytosis with lymphocytosis, hypokalemia, Cr 1 (increased from baseline 0.6), Tbili 4.2 and transaminitis, lipase near baseline. Ethanol 273 with last drink prior to arrival. MELD Na 19. mDF 32.7. Sales Advisory Manager on- call contacted who recommended ICU admission with EGD in AM. Esdras was seen in consultation in ED B11. He is awakens to voice. Patient endorses mild abdominal pain and current nausea. During my evaluation the patient had large volume hematemesis with large clot burden. BP difficult to obtain, last BP 71/50 then 78/45. He was brought emergently to B01 and intubated for airway protection for EGD. Intubation uncomplicated, see procedure note for details. Transferred urgently to ICU. 2nd U PRBC infusing. GI present at bedside. Allergies Allergy/AdvReac Type Severity Reaction Status Date / Time No Known Allergies Allergy Verified 04/22/24 14:24 Home Medications Medication Instructions Recorded Confirmed Type paliperidone 9 mg tablet,extended 9 mg PO QAM 10/14/23 07/04/24 History release 24 hr buspirone 5 mg tablet 5 mg PO TID PRN Anxiety 04/21/24 07/04/24 History furosemide 40 mg tablet 40 mg PO BID 04/21/24 07/04/24 History gabapentin 300 mg capsule 300 mg PO UD 04/21/24 07/04/24 History spironolactone 25 mg tablet 25 mg PO QAM 04/21/24 07/04/24 History nadolol 40 mg tablet 40 mg PO QAM #30 tabs 04/23/24 07/04/24 Rx pantoprazole 40 mg tablet,delayed 40 mg PO BID #60 tabs 04/23/24 07/04/24 Rx release prednisone 20 mg tablet 40 mg (2 x 20 mg) PO DAILY #60 tabs 04/23/24 07/04/24 Rx sodium di- and 2 tab PO QID #8 tabs 04/23/24 07/04/24 Rx monophosphate-potassium phos monobasic 250 mg tablet (Phospha Neutral) trazodone 50 mg tablet 50 mg PO HS PRN insomnia #30 tabs 04/23/24 07/04/24 Rx Patient History Medical History Alcoholic cirrhosis HTN (hypertension) Thrombocytopenia OCD (obsessive compulsive disorder) Insomnia Bipolar 1 disorder Tobacco abuse Alcohol dependence Compression fracture of T12 vertebra Compression fracture of L1 lumbar vertebra Hepatosplenomegaly Mixed hyperlipidemia Alcohol abuse Surgical History Hx of tonsillectomy Hx of colonoscopy 2014, WNL, internal hemorrhoids Social History Smoking Status: Current every day smoker Tobacco Type: Cigarettes and E-cigarettes / Vaping Cigarettes Per Day: 1/2 pack; Second Hand Exposure: Yes; Do You Dip or Chew Tobacco: No; Hx Alcohol Use: Yes Alcohol type: hard liquor Hx Substance Use: Yes Last Used Substance: Unknown Last Used Substance Other:: 10 yrs ago Substance Use Type Other:: ectasy, mushrooms, LSD x10 yrs ago Preferred Language: Lao Communication Ability: Effective Certified Wellness Program Coordinator Required: No Beliefs That Will Affect Care: None Current Living Situation: Significant Other Feels Safe at Home: Yes Assistive Devices: None Review of Systems Review of Systems: All systems reviewed & are unremarkable except as noted in Subjective Physical Exam Constitutional: + acute distress, + ill appearing, + thi n, + frail appearing, + disheveled and + lethargic Eyes: PERRL; sclerae not anicteric ENMT: external ear and nose normal, oropharynx normal dried and fresh blood around mouth and nose Neck: trachea midline, no thyromegaly Respiratory: + labored breathing, + cough and + tachy pneic Cardiovascular: Rate/Rhythm: regular rhythm and + tachycardic Heart Sounds: no murmur Vessels: no JVD and no carotid bruit Gastrointestinal (Abdomen): Inspection/Auscultation: normal bowel sounds; abdomen not distended and no visible herniation Percussion/Palpation: + abdomen tender and + hepatomegaly; no guarding and abdomen not rigid Musculoskeletal: no cyanosis or clubbing, extremities motor strength 5/5 Skin: no rashes, warm and dry Neurologic: PERRL, EOMI, accommodation nl, no face palsy, no dysarthria Genitourinary: Deferred Results & Data Results & Data Vital Signs (Past 12 Hours) Vital Signs Temp Pulse Resp BP Pulse Ox O2 Del Method 07/04/24 03:46 87 20 135/79 96 07/04/24 03:34 37.1 C 84 23 120/68 99 Room Air Laboratory Results Reviewed Diagnostic Findings Reviewed Medications Administered See TC KITCHENG Procedure Codes (Charges) Ventilator Management Ventilator Managment: 35081 Ventilation assist and management; Hospital inpt/obs, intl day Coding Level of Care Code 70645 IN/OBS CONSULT LVL 2,35M Diagnoses Alcoholic cirrhosis K70.30 Esophageal varices I85.00 Upper gastrointestinal hemorrhage K92.2 CPT Codes Ventilator Management - Ventilator Managment: 84115 Ventilation assist and management; Hospital inpt/obs, intl day ([id number]) Time Spent (min) 48
[2024-07-04 04:27] LABS: Hematocrit (blood only) 33.7 % (42.0-52.0); Hemoglobin 11.8 g/dl (14.0-18.0); Mean Corpuscular Hemoglobin 32.9 pg (25.0-34.0); Mean Corpuscular Volume 93.9 fL (80.0-100.0); Mean Platelet Volume 10.5 fL (9.4-12.4); Platelet Count 49 K/uL (130-400); RDW Coefficient of Variation 17.3 % (11.5-14.5); RDW Standard Deviation 58.9 fL (36.4-46.3); Red Blood Count 3.59 M/uL (4.70-6.10); White Blood Count 12.41 K/ul (4.8-10.8)
[2024-07-04] MEDS: OCTREOTIDE ACETATE 500 MCG in SODIUM CHLORIDE 0.9% 100 ML IV SCH (04:33)
[2024-07-04] MEDS: PANTOprazole 80 MG in DEXTROSE 5% 100 ML IV STA (04:36)
[2024-07-04] MEDS: OCTREOTIDE ACETATE 50 MCG in SYRINGE 9.5 ML IV STA (04:39)
[2024-07-04 04:42] LABS: Albumin Level 3.8 gm/dl (3.4-5.0); BUN Creatinine Ratio 14.9 (10-20); Bilirubin Direct 1.4 mg/dl (0-0.2); Bilirubin,Total 4.2 mg/dl (0.2-1.0); Calcium 8.6 mg/dl (8.6-10.3); Creatinine Clr Calc Pharmacy 158.9 ml/min; Magnesium 1.6 mg/dl (1.7-2.4); Potassium 3.1 mmol/L (3.5-5.1); Total Protein 6.6 gm/dl (6.0-8.3)
[2024-07-04 04:48] LABS: Troponin I High Sensitivity 10.4 pg/ml (0-20)
[2024-07-04] MEDS: THIAMINE HCL 100 MG in SYRINGE 9 ML IV STA (04:50)
[2024-07-04 04:53] LABS: INR 1.8 (0.9-1.1); Partial Thromboplastin Ratio 1.1; Partial Thromboplastin Time 29 Seconds (21-31); Prothrombin Time 18.2 Seconds (9.0-12.0)
[2024-07-04 04:57] LABS: Thyroid Stimulating Hormone 2.54 uIu/ml (0.300-4.500)
[2024-07-04] MEDS: cefTRIAXone SODIUM 2,000 MG/50 ML BAG IV STA ×2 (05:05→06:18)
[2024-07-04 05:11] LABS: Basophils # (auto) 0.08 K/uL (0.00-0.20); Basophils % (auto) 0.6 %; Eosinophils # (auto) 0.27 K/uL (0.00-0.50); Eosinophils % (auto) 2.2 %; Immature Granulocytes # (auto) 0.05 K/uL (0.01-0.20); Immature Granulocytes % (auto) 0.4 %; Lymphocytes # (auto) 7.22 K/uL (1.20-3.40); Lymphocytes % (auto) 58.2 %; Monocytes # (auto) 0.52 K/uL (0.11-0.59); Monocytes % (auto) 4.2 %; Neutrophils # (auto) 4.27 K/uL (1.40-6.50); Neutrophils % (auto) 34.4 %
--- NOTE | 2024-07-04 05:14 | XRay Report ---
EXAM: XR chest 1V portable CLINICAL HISTORY: vomiting blood TECHNIQUE: An X-ray image of the chest is obtained in PA projection. COMPARISON: No prior studies are available for comparison. FINDINGS: Pulmonary Parenchyma: Prominent both hilum and bronchovasculat markings, likely bronchitis/congestion. The right hemidiaphragm is elevated more than usual. No evidence of consolidation, collapse, or focal opacities. No pulmonary nodules are identified. No evidence of pleural effusion or pleural thickening. Heart and Mediastinum: Heart size and shape are normal. No mediastinal widening or masses. No hilar or mediastinal lymphadenopathy. Slightly widened superior mediastinum likely by vascular shadow. Bony Thorax: Bony thorax appears intact without fractures or deformities. Soft Tissues: Soft tissues overlying the chest wall are unremarkable. IMPRESSION: 1. Prominent both hilum and bronchovasculat markings, likely bronchitis/congestion. 2. The right hemidiaphragm is elevated more than usual. 3. No evidence of consolidation. No pleural effusion. Electronically signed by Rodolfo Storm 07-04-2024 05:13 AM
--- NOTE | 2024-07-04 05:28 | History & Physical Report ---
Date of Service July 04, 2024 Assessment & Plan (1) Upper gastrointestinal hemorrhage: Plan: Recurrent UGIB History esophageal varices as per records History portal gastropathy alcoholic cirrhosis Patient with some hemodynamic instability given hypotension Alcoholic hepatitis,, poor prognosis as per computed Maddrey's DF score of 32.7 points chronic anemia, hemoglobin at baseline chronic thrombocytopenia mood disorder, patient depressed as per family but not suicidal hx OCD as per records Hypokalemia secondary to emesis ongoing tobacco abuse Admit to ICU as per GI specialist (Dr. Ayon) recommendations as per ED provider IV PPI, IV octreotide Ceftriaxone for SBP prophylaxis in a cirrhotic patient presenting with GI bleed N.p.o. in anticipation of endoscopy THO S, DT precautions IVF, hold nadolol for now given hypotension Replace electrolytes Nicotine patch as needed DVT prophylaxis. SCDs re: GI bleed Full code Patient partner requesting updates providers. Mr. Leydi Meng, contact #[phone]. Text document was generated using [employer] voice recognition software. It may contain grammatical or spelling errors. Kindly contact undersigned for clarification of any documentation item in question. History of Present Illness Chief Complaint: Hematemesis Primary Care Provider: Tami Upton MD History obtained from patient's family and records. Unable to obtain history from patient secondary to obtunded state post Ativan administration at the ER. Medical history significant for alcoholic cirrhosis, esophageal varices, portal hypertensive gastropathy as per records, chronic anemia (baseline hemoglobin 12- 13), chronic thrombocytopenia, chronic back pain secondary to compression fractures, mood disorder, OCD as per records, ongoing tobacco abuse. Recent confinement April 2024 for UGIB presenting as hematemesis. EGD showed grade 1 esophageal varices and portal hypertensive gastropathy. No active bleeding noted. Patient discharged on 1 month prednisone course for alcoholic hepatitis and nadolol. Patient started drinking again 6 weeks after discharge from the hospital. Mother cites depression as reason. Family unaware of suicidality. Patient trying to cut down on drinking with help of family over the last few days. Sudden onset of hematemesis last night without abdominal pain as per family. No OTC NSAID intake. Patient brought to the ER for evaluation. IV Protonix, octreotide, ceftriaxone, and Ativan administration at the ER. Lowest SBP of 90s documented at the ER. 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 Allergies Allergy/AdvReac Type Severity Reaction Status Date / Time No Known Allergies Allergy Verified 04/22/24 14:24 Home Medications Medication Instructions Recorded Confirmed Type paliperidone 9 mg tablet,extended 9 mg PO QAM 10/14/23 07/04/24 History release 24 hr buspirone 5 mg tablet 5 mg PO TID PRN Anxiety 04/21/24 07/04/24 History furosemide 40 mg tablet 40 mg PO BID 04/21/24 07/04/24 History gabapentin 300 mg capsule 300 mg PO UD 04/21/24 07/04/24 History spironolactone 25 mg tablet 25 mg PO QAM 04/21/24 07/04/24 History nadolol 40 mg tablet 40 mg PO QAM #30 tabs 04/23/24 07/04/24 Rx pantoprazole 40 mg tablet,delayed 40 mg PO BID #60 tabs 04/23/24 07/04/24 Rx release sodium di- and 2 tab PO QID #8 tabs 04/23/24 07/04/24 Rx monophosphate-potassium phos monobasic 250 mg tablet (Phospha Neutral) trazodone 50 mg tablet 50 mg PO HS PRN insomnia #30 tabs 04/23/24 07/04/24 Rx Past Med/Surg History Problem List (Updated 07/04/24 @ 08:17 by Josefina Huerta MD, [facility]) Hyperbilirubinemia Transaminitis Alcoholic cirrhosis Esophageal varices (Acute) Upper gastrointestinal hemorrhage (Acute) Alcoholic gastritis with bleeding Esophageal ulceration Portal hypertensive gastropathy Gastrointestinal hemorrhage with hematemesis Alcohol withdrawal (Acute) Cirrhosis Coffee ground emesis (Acute) Alcohol abuse (Acute) Alcohol withdrawal syndrome (Acute) Alcohol use disorder, severe, dependence (Acute) Alcohol intoxication (Acute) GIB (gastrointestinal bleeding) (Acute) Alcoholic hepatitis Acute alcohol abuse (Acute) Pancytopenia (Acute) Medical History Alcoholic cirrhosis HTN (hypertension) Thrombocytopenia OCD (obsessive compulsive disorder) Insomnia Bipolar 1 disorder Tobacco abuse Alcohol dependence Compression fracture of T12 vertebra Compression fracture of L1 lumbar vertebra Hepatosplenomegaly Mixed hyperlipidemia Alcohol abuse Surgical History Hx of tonsillectomy Hx of colonoscopy 2015, WNL, internal hemorrhoids Social History Smoking Status: Current every day smoker Tobacco Type: Cigarettes and E-cigarettes / Vaping Cigarettes Per Day: 1/2 pack; Second Hand Exposure: Yes; Do You Dip or Chew Tobacco: No; Hx Alcohol Use: Yes Alcohol type: hard liquor Hx Substance Use: Yes Last Used Substance: Unknown Last Used Substance Other:: 10 yrs ago Substance Use Type Other:: ectasy, mushrooms, LSD x10 yrs ago Preferred Language: Polish Communication Ability: Effective Nipple Threader Required: No Beliefs That Will Affect Care: None Current Living Situation: Family and Significant Other Feels Safe at Home: Yes Assistive Devices: None Review of Systems Review of Systems: Could not be reliably obtained secondary to sedated state Physical Exam Physical Exam: GENERAL: Sedated, no respiratory distress SKIN: Pallor, warm HEENT: Pale palpebral conjunctivae, no ptosis, dry buccal mucosa NECK : Supple, no tenderness CHEST : CTA, no tenderness HEART : RRR, no obvious murmurs ABDOMEN: Some distention, no tenderness EXTREMITIES : No LE swelling/tenderness, no other conspicuous deformities noted NEUROLOGIC : Sedated, no facial asymmetry, gait and stance not assessed Results & Data Results & Data Vital Signs (Past 12 Hours) Vital Signs Temp Pulse Resp BP Pulse Ox O2 Del Method 07/04/24 05:16 36.8 C 99 H 17 110/69 92 07/04/24 05:00 100 H 15 116/84 94 07/04/24 04:58 36.8 C 99 H 17 122/82 95 07/04/24 04:46 131/87 07/04/24 04:30 91 H 19 94 07/04/24 04:12 101 H 20 123/79 98 07/04/24 04:06 89 17 114/76 96 07/04/24 03:48 93 H 17 135/79 100 07/04/24 03:46 87 20 135/79 96 07/04/24 03:34 37.1 C 84 23 120/68 99 Room Air 07/04/24 03:17 78 Laboratory Results Laboratory Results WBC 12.41 K/ul (4.8-10.8) H 07/04/24 03:29 RBC 3.59 M/uL (4.70-6.10) L 07/04/24 03: Hgb 11.8 g/dl (14.0-18.0) L 07/04/24 03: POC Hgb 11.6 g/dl (14.0-18.0) L 07/04/24 03: Hct 33.7 % (42.0-52.0) L 07/04/24 03: POC Hct 34 % (42-52) L 07/04/24 03: MCV 93.9 fL (80.0-100.0) 07/04/24 03: MCH 32.9 pg (25.0-34.0) 07/04/24 03: MCHC 35.0 g/dL (32.0-36.0) 07/04/24 03: RDW Std Deviation 58.9 fL (36.4-46.3) H 07/04/24 03: RDW Coeff of Joe 17.3 % (11.5-14.5) H 07/04/24 03: Plt Count 49 K/uL (130-400) L 07/04/24 03: MPV 10.5 fL (9.4-12.4) 07/04/24 03: Immature Gran % (Auto) 0.4 % 07/04/24 03: Neut % (Auto) 34.4 % 07/04/24 03: Lymph % (Auto) 58.2 % 07/04/24 03: [place] % (Auto) 4.2 % 07/04/24 03: Eos % (Auto) 2.2 % 07/04/24 03: Baso % (Auto) 0.6 % 07/04/24 03: Neut # (Auto) 4.27 K/uL (1.40-6.50) 07/04/24 03: Lymph # (Auto) 7.22 K/uL (1.20-3.40) H 07/04/24 03: [place] # (Auto) 0.52 K/uL (0.11-0.59) 07/04/24 03: Eos # (Auto) 0.27 K/uL (0.00-0.50) 07/04/24 03: Baso # (Auto) 0.08 K/uL (0.00-0.20) 07/04/24 03: Immature Gran # (Auto) 0.05 K/uL (0.01-0.20) 07/04/24 03: PT 18.2 Seconds (9.0-12.0) H 07/04/24 03: INR 1.8 (0.9-1.1) H 07/04/24 03: APTT 29 Seconds (21-31) 07/04/24 03: PTT Ratio 1.1 07/04/24 03:29 POC Sodium 140 mmol/L (135-144) 07/04/24 03: Sodium 139 mmol/L (136-145) 07/04/24 03: POC Potassium 3.1 mmol/L (3.3-5.0) L 07/04/24 03: Potassium 3.1 mmol/L (3.5-5.1) L 07/04/24 03:29 POC Chloride 101 mmol/L (101-112) 07/04/24 03: Chloride 99 mmol/L (98-107) 07/04/24 03: Carbon Dioxide 26 mmol/L (21-32) 07/04/24 03: POC Total CO2 24 mmol/L (24-31) 07/04/24 03:27 Anion Gap 14 (3-11) H 07/04/24 03:29 POC Anion Gap 19.0 mmol/L (16-25) 07/04/24 03:27 POC BUN 8 mg/dl (7-18) 07/04/24 03: BUN 10 mg/dl (6-23) 07/04/24 03: Creatinine 0.67 mg/dl (0.6-1.4) 07/04/24 03: POC Creatinine 1.1 mg/dl (0.6-1.3) 07/04/24 03: Est Cr Clr Drug Dosing 158.9 ml/min 07/04/24 03: eGFR 124.87 07/04/24 03: BUN/Creatinine Ratio 14.9 (10-20) 07/04/24 03:29 Glucose 114 mg/dl (70-99(Fasting)) H 07/04/24 03:29 POC Glucose (other) 118 mg/dl (70-99) H 07/04/24 03:27 Calcium 8.6 mg/dl (8.6-10.3) 07/04/24 03:29 POC Ioniz Calcium William 1.00 mmol/l (1.12-1.32) L 07/04/24 03:27 Magnesium 1.6 mg/dl (1.7-2.4) L 07/04/24 03:29 Total Bilirubin 4.2 mg/dl (0.2-1.0) H 07/04/24 03:29 Direct Bilirubin 1.4 mg/dl (0-0.2) H 07/04/24 03:29 AST 279 U/L (13-39) H 07/04/24 03:29 ALT 115 U/L (7-52) H 07/04/24 03:29 Alkaline Phosphatase 90 U/L (34-104) 07/04/24 03:29 Troponin I High Sens 10.4 pg/ml (0-20) 07/04/24 03: Total Protein 6.6 gm/dl (6.0-8.3) 07/04/24 03:29 Albumin 3.8 gm/dl (3.4-5.0) 07/04/24 03: Lipase 185 U/L (11-82) H 07/04/24 03:29 TSH 2.540 uIu/ml (0.300-4.500) 07/04/24 03:29 Ethyl Alcohol mg/dL 272.9 mg/dl (<10.0) H 07/04/24 03:29 Crossmatch See Detail 07/04/24 03:29 Impressions Chest X-Ray 07/04/24 03:25 EXAM: XR chest 1V portable CLINICAL HISTORY: vomiting blood TECHNIQUE: An X-ray image of the chest is obtained in PA projection. COMPARISON: No prior studies are available for comparison. FINDINGS: Pulmonary Parenchyma: Prominent both hilum and bronchovasculat markings, likely bronchitis/congestion. The right hemidiaphragm is elevated more than usual. No evidence of consolidation, collapse, or focal opacities. No pulmonary nodules are identified. No evidence of pleural effusion or pleural thickening. Heart and Mediastinum: Heart size and shape are normal. No mediastinal widening or masses. No hilar or mediastinal lymphadenopathy. Slightly widened superior mediastinum likely by vascular shadow. Bony Thorax: Bony thorax appears intact without fractures or deformities. Soft Tissues: Soft tissues overlying the chest wall are unremarkable. IMPRESSION: 1. Prominent both hilum and bronchovasculat markings, likely bronchitis/congestion. 2. The right hemidiaphragm is elevated more than usual. 3. No evidence of consolidation. No pleural effusion. Electronically signed by Rodolfo Storm 07-04-2024 05:13 AM Diagnostic Findings EKG as per my interpretation :Rate 90, NSR, normal axis, no ischemia
[2024-07-04] MEDS ORDERED: traZODone HCL 50 MG TAB PO PRN (05:37)
[2024-07-04] MEDS ORDERED: Ativan IV Alcohol Withdrawal--Active Protocol IV PRN (05:38)
[2024-07-04] MEDS ORDERED: LORazepam 2 MG/1 ML VIAL IV PRN ×3 (05:38)
[2024-07-04] MEDS ORDERED: ACETAMINOPHEN 500 MG TAB PO PRN (05:39)
[2024-07-04] MEDS ORDERED: oxyCODONE HCL IR 5 MG TAB (IMMEDIATE RELEASE) PO PRN (05:39)
[2024-07-04] MEDS ORDERED: PROMETHAZINE 6.25 MG/50.25 ML BAG IV PRN (05:39)
[2024-07-04] MEDS: SODIUM CHLORIDE 0.9% 500 ML IV ONE ×2 (05:40)
[2024-07-04] MEDS: PHYTONADIONE 5 MG in DEXTROSE 5% 50 ML IV ONE (05:42)
[2024-07-04] MEDS: PANTOprazole 40 MG in DEXTROSE 5% MINI-B 100 ML IV SCH (06:12)
[2024-07-04] MEDS: POTASSIUM CHLORIDE / WTR 10 MEQ/100 ML PLCT IV SCH (06:14)
[2024-07-04] MEDS ORDERED: STAT IV Infusion **Titration per Protocol STA ×2 (06:44→09:05)
[2024-07-04] MEDS ORDERED: fentaNYL citrate PF 100 MCG/2 ML VIAL IV PRN (06:58)
[2024-07-04] MEDS: fentaNYL citrate PF 100 MCG/2 ML VIAL IV STA (07:01)
[2024-07-04] MEDS: MIDAZOLAM HCL 1 MG/ML 2ML VIAL IV STA (07:01)
[2024-07-04] MEDS: fentaNYL citrate PF 100 MCG/2 ML VIAL ONE (07:01)
[2024-07-04] MEDS: MIDAZOLAM HCL 1 MG/ML 2ML VIAL ONE (07:01)
[2024-07-04] MEDS ORDERED: MIDAZOLAM BOLUS FROM BAG IV PRN (07:05)
[2024-07-04] MEDS ORDERED: SUCCINYLCHOLINE CHLORIDE 20 MG/ML 10 ML VIAL IV ONE (07:11)
[2024-07-04] MEDS ORDERED: POTASSIUM PHOS 3 MMOL/1 ML INFUSION IV STA (07:11)
[2024-07-04] MEDS ORDERED: ETOMIDATE 2 MG/ML 20 ML VIAL IV ONE (07:11)
[2024-07-04] MEDS: MIDAZOLAM HCL 5 MG/ML 2ML VIAL IV STA (07:12)
[2024-07-04] MEDS: fentaNYL citrate 2,500 MCG/250 ML BAG IV SCH (07:13)
[2024-07-04] MEDS: fentaNYL citrate 2,500 MCG/250 ML BAG IV ONE (07:14)
[2024-07-04] MEDS: propofoL 1,000 MG/100 ML VIAL IV SCH (07:14)
--- NOTE | 2024-07-04 07:15 | Gastrointestinal Consultation ---
Date of Consultation July 04, 2024 Assessment & Plan (1) Upper gastrointestinal hemorrhage: Prior endoscopies unlikely a variceal bleed. Etiology could be either portal gastropathy or Roz-Barney tear. In this setting I suspect a Roz-Barney tear however need to also consider peptic ulcer disease. Will proceed with emergency endoscopy once patient is transferred to the ICU. Continue octreotide drip and PPI drip. (2) Alcoholic cirrhosis: (3) Alcohol abuse: Will need to prophylax for alcohol withdrawal in light of continued active drinking. History of Present Illness Reason for Consultation: Upper GI bleed History of Present Illness Patient well-known to our service. Has known underlying alcoholic liver disease complicated by recurrent upper GI bleeding. Presents once again with multiple episodes of hematemesis. Recent endoscopies have shown small esophageal varices with no stigmata and diffuse portal gastropathy. He had several episodes of vomiting at home. He has had episodes of alcohol withdrawal. Continues to drink actively. No other significant medical problems except for lumbar vertebral fractures. He is followed at [facility] with Dr. Hernandes for hepatology. Allergies Allergy/AdvReac Type Severity Reaction Status Date / Time No Known Allergies Allergy Verified 04/22/24 14:24 Home Medications Medication Instructions Recorded Confirmed Type paliperidone 9 mg tablet,extended 9 mg PO QAM 10/14/23 07/04/24 History release 24 hr buspirone 5 mg tablet 5 mg PO TID PRN Anxiety 04/21/24 07/04/24 History furosemide 40 mg tablet 40 mg PO BID 04/21/24 07/04/24 History gabapentin 300 mg capsule 300 mg PO UD 04/21/24 07/04/24 History spironolactone 25 mg tablet 25 mg PO QAM 04/21/24 07/04/24 History nadolol 40 mg tablet 40 mg PO QAM #30 tabs 04/23/24 07/04/24 Rx pantoprazole 40 mg tablet,delayed 40 mg PO BID #60 tabs 04/23/24 07/04/24 Rx release prednisone 20 mg tablet 40 mg (2 x 20 mg) PO DAILY #60 tabs 04/23/24 07/04/24 Rx sodium di- and 2 tab PO QID #8 tabs 04/23/24 07/04/24 Rx monophosphate-potassium phos monobasic 250 mg tablet (Phospha Neutral) trazodone 50 mg tablet 50 mg PO HS PRN insomnia #30 tabs 04/23/24 07/04/24 Rx Patient History Medical History Alcoholic cirrhosis HTN (hypertension) Thrombocytopenia OCD (obsessive compulsive disorder) Insomnia Bipolar 1 disorder Tobacco abuse Alcohol dependence Compression fracture of T12 vertebra Compression fracture of L1 lumbar vertebra Hepatosplenomegaly Mixed hyperlipidemia Alcohol abuse Surgical History Hx of tonsillectomy Hx of colonoscopy 2015, WNL, internal hemorrhoids Social History Smoking Status: Current every day smoker Tobacco Type: Cigarettes and E-cigarettes / Vaping Cigarettes Per Day: 1/2 pack; Second Hand Exposure: Yes; Do You Dip or Chew Tobacco: No; Hx Alcohol Use: Yes Alcohol type: hard liquor Hx Substance Use: Yes Last Used Substance: Unknown Last Used Substance Other:: 10 yrs ago Substance Use Type Other:: ectasy, mushrooms, LSD x10 yrs ago Preferred Language: Setswana Communication Ability: Effective Inpatient Pharmacist Required: No Beliefs That Will Affect Care: None Current Living Situation: Significant Other Feels Safe at Home: Yes Assistive Devices: None Review of Systems Review of Systems: Patient is intubated unable to obtain review of systems Physical Exam Physical Exam: Eyes; anicteric HENT No masses Chest clear to A Cor S1, S2 physiologic Abd: softer no masses Ext no edema Results & Data Vital Signs (Past 12 Hours) Vital Signs Temp Pulse Resp BP Pulse Ox O2 Del Method 07/04/24 06:48 120 H 163/115 H 100 Mechanical Vent 07/04/24 06:45 103 H 21 161/99 H 100 Mechanical Vent 07/04/24 06:44 36.4 C L 101 H 24 161/99 H 100 07/04/24 06:42 83 16 98/54 L 100 Mechanical Vent 07/04/24 06:39 64 19 93/60 L 97 07/04/24 06:30 76/54 L 07/04/24 06:25 36.4 C L 90 10 L 72/41 L 95 07/04/24 06:15 93 H 12 90/56 L 100 07/04/24 06:01 36.5 C 96 H 19 116/69 96 07/04/24 05:45 96 H 17 112/59 L 93 05/03/25 05:31 36.5 C 98 H 17 104/64 93 07/04/24 05:30 99 H 16 104/64 92 07/04/24 05:16 36.8 C 99 H 17 110/69 92 07/04/24 05:12 100 H 17 110/69 94 07/04/24 05:00 100 H 15 116/84 94 07/04/24 04:58 36.8 C 99 H 17 122/82 95 07/04/24 04:46 131/87 07/04/24 04:30 91 H 19 94 07/04/24 04:12 101 H 20 123/79 98 07/04/24 04:06 89 17 114/76 96 07/04/24 03:48 93 H 17 135/79 100 07/04/24 03:46 87 20 135/79 96 07/04/24 03:34 37.1 C 84 23 120/68 99 Room Air 07/04/24 03:17 78 Laboratory Results Laboratory Results - last 48 hr 07/04/24 07/04/24 03:27 03:29 WBC 12.41 H RBC 3.59 L Hgb 11.8 L POC Hgb 11.6 L Hct 33.7 L POC Hct 34 L MCV 93.9 MCH 32.9 MCHC 35.0 RDW Std Deviation 58.9 H RDW Coeff of Joe 17.3 H Plt Count 49 L MPV 10.5 Immature Gran % (Auto) 0.4 Neut % (Auto) 34.4 Lymph % (Auto) 58.2 [place] % (Auto) 4.2 Eos % (Auto) 2.2 Baso % (Auto) 0.6 Neut # (Auto) 4.27 Lymph # (Auto) 7.22 H [place] # (Auto) 0.52 Eos # (Auto) 0.27 Baso # (Auto) 0.08 Immature Gran # (Auto) 0.05 PT 18.2 H INR 1.8 H APTT 29 PTT Ratio 1.1 POC Sodium 140 Sodium 139 POC Potassium 3.1 L Potassium 3.1 L POC Chloride 101 Chloride 99 Carbon Dioxide 26 POC Total CO2 24 Anion Gap 14 H POC Anion Gap 19.0 POC BUN 8 BUN 10 Creatinine 0.67 POC Creatinine 1.1 Est Cr Clr Drug Dosing 158.9 eGFR 124.87 BUN/Creatinine Ratio 14.9 Glucose 114 H POC Glucose (other) 118 H Calcium 8.6 POC Ioniz Calcium William 1.00 L Magnesium 1.6 L Total Bilirubin 4.2 H Direct Bilirubin 1.4 H AST 279 H ALT 115 H Alkaline Phosphatase 90 Troponin I High Sens 10.4 Total Protein 6.6 Albumin 3.8 Lipase 185 H TSH 2.540 Ethyl Alcohol mg/dL 272.9 H Blood Type A Positive Antibody Screen NEGATIVE Crossmatch See Detail Diagnostic Findings Chest X-Ray 07/04/24 03:25 EXAM: XR chest 1V portable CLINICAL HISTORY: vomiting blood TECHNIQUE: An X-ray image of the chest is obtained in PA projection. COMPARISON: No prior studies are available for comparison. FINDINGS: Pulmonary Parenchyma: Prominent both hilum and bronchovasculat markings, likely bronchitis/congestion. The right hemidiaphragm is elevated more than usual. No evidence of consolidation, collapse, or focal opacities. No pulmonary nodules are identified. No evidence of pleural effusion or pleural thickening. Heart and Mediastinum: Heart size and shape are normal. No mediastinal widening or masses. No hilar or mediastinal lymphadenopathy. Slightly widened superior mediastinum likely by vascular shadow. Bony Thorax: Bony thorax appears intact without fractures or deformities. Soft Tissues: Soft tissues overlying the chest wall are unremarkable. IMPRESSION: 1. Prominent both hilum and bronchovasculat markings, likely bronchitis/congestion. 2. The right hemidiaphragm is elevated more than usual. 3. No evidence of consolidation. No pleural effusion. Electronically signed by Rodolfo Storm 07-04-2024 05:13 AM PG Care Time/CCT Total # of Minutes Spent Total Time Spent with Patient: Total time spent is greater than 50% in coordination of care (as documented) at patient's floor/unit and/or counseling patient: Coding Level of Care Code 87084 INT INP/OBS CARE 3/75MIN Diagnoses Upper gastrointestinal hemorrhage K92.2 Alcoholic cirrhosis K70.30 Alcohol abuse F10.10
[2024-07-04] MEDS: MIDAZOLAM HCL 125 MG/250 ML BAG IV SCH (07:20)
--- NOTE | 2024-07-04 07:20 | XRay Report ---
EXAM: XR chest 1V portable CLINICAL HISTORY: post intub TECHNIQUE: X-ray image of the chest obtained in 1 frontal projection. COMPARISON: Prior X-ray dated 07/04/2024 for comparison. FINDINGS: Interval placement of ETT with tip 7.0 cm above emily. Pulmonary Parenchyma: Unchanged prominent bilateral parahilar markings. No evidence of consolidation, collapse, or focal opacities. No pulmonary nodules identified. No evidence of pleural effusion or pleural thickening. Heart and Mediastinum: Heart size and shape are normal. No mediastinal widening or masses. No hilar or mediastinal lymphadenopathy. Bony Thorax: Bony thorax appears intact without fractures or deformities. Soft Tissues: Soft tissues overlying the chest wall are unremarkable. Right dome of diaphragm elevated in position. IMPRESSION: 1. Interval placement of ETT with tip 7.0 cm above emily, needs advancement 2. Unchanged prominent bilateral parahilar markings likely congestion vs bronchitis. 3. Right dome of diaphragm elevated in position. Electronically signed by Rodolfo Storm 07-04-2024 07:19 AM
--- NOTE | 2024-07-04 07:24 | Emergency Department Note ---
ED Visit Note Endotracheal Intubation Indication upper GI bleed, hypotension The patient was on 100% oxygen via NRB prior to the procedure. Suction, airway equipment, RSI drugs, respiratory equipment, and appropriate personnel were prepared prior to the initiation of the procedure. A time out was taken. Induction was performed with Etomidate 20 mg and succinylcholine 100 mg. After observing the clinical benefit of the medications, the airway was easily visualized utilizing a 4.0 MAC on the GlideScope. A 7.5 size ETT tube was placed atraumatically to 25 cm using standard technique. The cuff inflated without signs of malfunction. There were bilateral breath sounds, positive colormetric change, no gastric sounds, a good capnography waveform, and post p rocedure pulse oximetry was 100%. Post intubation sedation and paralysis was administered using propofol drip, Versed and fentanyl boluses. Fentanyl drip was then added. There were no complications. .
[2024-07-04 07:26] LABS: iSTAT Arterial Blood Gas HCO3 20 meg/L (19-24); iSTAT Arterial Blood Gas pCO2 42 mmHg (35-46); iSTAT Arterial Blood Gas pH 7.29 (7.35-7.45); iSTAT Arterial Blood Gas pO2 88 mmHg (80-95); iSTAT Carbon Dioxide 22 mmol/L (24-31); iSTAT Hematocrit 31 % (42-52); iSTAT Hemoglobin 10.5 g/dl (14.0-18.0); iSTAT Sodium 139 mmol/L (135-144)
--- NOTE | 2024-07-04 07:26 | XRay Report ---
EXAM: XR chest 1V portable CLINICAL HISTORY: ETT TECHNIQUE: An X-ray image of the chest is obtained in AP projection. COMPARISON: Prior studies few hours before 07/04/2024. FINDINGS: ETT in accepted position 4.4cm proximal to emily. Pulmonary Parenchyma: Prominent both hilum and bronchovasculat markings, likely bronchitis/congestion. No evidence of consolidation, collapse, or focal opacities. No pulmonary nodules are identified. No evidence of pleural effusion or pleural thickening. Heart and Mediastinum: Heart size and shape are normal. No mediastinal widening or masses. No hilar or mediastinal lymphadenopathy. Bony Thorax: Bony thorax appears intact without fractures or deformities. Soft Tissues: Soft tissues overlying the chest wall are unremarkable. IMPRESSION: 1. Corrected ETT accepted position now 4.4cm proximal to emily. 2. Remonstration of prominent both hilum and bronchovascular markings, likely congestion/ edema. Electronically signed by Rodolfo Storm 07-04-2024 07:26 AM
[2024-07-04 07:30] LABS: Phosphorus 3.1 mg/dl (2.5-4.9)
--- NOTE | 2024-07-04 08:18 | Critical Care Progress Note ---
Date of Service July 04, 2024 Assessment & Plan (1) Alcoholic cirrhosis: (2) Esophageal varices: (3) Upper gastrointestinal hemorrhage: (4) Coffee ground emesis: (5) Bipolar 1 disorder: (6) Tobacco abuse: (7) Transaminitis: (8) Hyperbilirubinemia: Plan Reason Critically Ill: 33-year-old male admitted to the hospital for upper GI bleed. In the ICU post intubation hematemesis Past medical history: Alcohol abuse, bipolar disorder, insomnia, gastritis, chronic thrombocytopenia history of variceal bleed Neuro - [facility]: Unable to assess Fentanyl and propofol for sedation --History of alcohol abuse Alcohol level 273 on presentation -- Anxiety/depression On trazodone at home Cardiac - -- Transient hypotension Resolved with IV fluids Keep MAP greater than 65, add vasopressors if need be -- Prolonged QTc Likely secondary to electrolyte abnormalities Replace magnesium, potassium as well as phosphorus Avoid QT prolonging medication Respiratory - -- VDRF For airway protection from hematemesis Continue with ventilatory support Keep RASS -1 Daily sedation holidays and SBT's GI - -- Acute upper GI bleed The patient with history of heavy alcohol abuse Continue with octreotide with prophylactic antibiotic GI on board, s/p EGD 07/04/2024 -- Transaminitis Likely secondary to acute alcoholic hepatitis Continue to trend -- Chronically elevated lipase Continue to monitor RENAL/LYTES - -- Monitor BUN/creatinine Avoid nephrotoxic medications ENDO - -- ICU hypoglycemia protocol HEME - -- Acute upper GI bleed Monitor H&H Transfuse for HGB < 7 or active bleeding Transfuse for PLT < 10K or active bleeding Patient did get 1 single donor platelet on 07/04/2024 --Coagulopathy Likely from alcohol abuse Got vitamin K in the ED ID - -- Continue with Rocephin for SBP prophylaxis given variceal bleed UA negative --Prophylaxis VTE: IPC GI Protonix drip Lines: Peripheral Diet: N.p.o. Plan: Strict ins and outs Continue with octreotide for 72 hours and pantoprazole drip for 48 hours. Repeat H&H every 6 hours x 2 till stability. Repeat BMP after repleting the electrolytes, repeat EKG later today Try to titrate off midazolam if possible and continue with propofol and fentanyl for sedation Case was discussed with GI at bedside Family were also updated at bedside I have personally spent 76 minutes of critical care time in the direct management of this patient. This is a life/limb threatening event. This includes time spent evaluating patient, direct bedside care, chart review, placing orders, interpretation of diagnostic studies, discussion with consultants, patient, and family members, as well as other required patient management activities. This time is exclusive of all separately billable procedures, and teaching time and separate from and in addition to any other critical care service time. Thank you for allowing us to participate in the care of this patient. Please refer to my attending physician's documentation for any further recommendations. Subjective Patient seen examined at bedside. No acute distress He was on 50 of fentanyl, 40 of propofol and 3 of midazolam at the time of examination He was given vecuronium while he was having EGD as he was fighting the vent alarm Has been afebrile Was tachycardic Not on any vasopressors right now Review of Systems 2 Review of Systems: All systems reviewed & are unremarkable except as noted in Subjective Physical Exam 2 Physical Exam: Constitutional: No acute distress HEENT: PERRLA, scleral icterus Respiratory system: Decreased air entry bilaterally, no wheeze, no rhonchi, mild crackles bilaterally lower lobes CVS: S1-S2 positive, no murmurs or gallops, tachycardia Abdomen: Soft, nontender, nondistended, positive bowel sounds x4 Extremities: +2 pulses bilaterally radialis/ dorsalis pedis, no cyanosis, m inimal edema bilateral lower extremity Neuro: Intubated, paralyzed Psych: Unable to assess G/U: Positive Vazquez Skin: no rashes, warm and dry Lymphatic: no cervical or axillary lymphadenopathy Results & Data Results & Data Vital Signs (Past 12 Hours) Vital Signs Temp Pulse Resp BP Pulse Ox O2 Del Method 07/04/24 07:10 135/74 07/04/24 07:09 96 H 19 141/80 H 97 Mechanical Vent 07/04/24 07:05 155/92 H 07/04/24 06:58 158/126 H 07/04/24 06:57 118 H 33 H 198/108 H 96 Mechanical Vent 07/04/24 06:52 203/142 H 07/04/24 06:48 120 H 163/115 H 100 Mechanical Vent 07/04/24 06:45 103 H 21 161/99 H 100 Mechanical Vent 07/04/24 06:44 36.4 C L 101 H 24 161/99 H 100 07/04/24 06:42 83 16 98/54 L 100 Mechanical Vent 07/04/24 06:39 64 19 93/60 L 97 07/04/24 06:30 76/54 L 07/04/24 06:25 36.4 C L 90 10 L 72/41 L 95 07/04/24 06:15 93 H 12 90/56 L 100 07/04/24 06:01 36.5 C 96 H 19 116/69 96 07/04/24 05:45 96 H 17 112/59 L 93 07/04/24 05:31 36.5 C 98 H 17 104/64 93 07/04/24 05:30 99 H 16 104/64 92 07/04/24 05:16 36.8 C 99 H 17 110/69 92 07/04/24 05:12 100 H 17 110/69 94 07/04/24 05:00 100 H 15 116/84 94 07/04/24 04:58 36.8 C 99 H 17 122/82 95 07/04/24 04:46 131/87 07/04/24 04:30 91 H 19 94 07/04/24 04:12 101 H 20 123/79 98 07/04/24 04:06 89 17 114/76 96 07/04/24 03:48 93 H 17 135/79 100 07/04/24 03:46 87 20 135/79 96 07/04/24 03:34 37.1 C 84 23 120/68 99 Room Air 07/04/24 03:17 78 Laboratory Results 07/04/24 03:29 07/04/24 03:29 Coding Level of Care Code 66051 CRITICAL CARE EA ADD 30M Diagnoses Alcoholic cirrhosis K70.30 Esophageal varices I85.00 Upper gastrointestinal hemorrhage K92.2 Coffee ground emesis K92.0 Bipolar 1 disorder F31.9 Tobacco abuse Z72.0 Transaminitis R74.01 Hyperbilirubinemia E80.6
--- NOTE | 2024-07-04 08:46 | GI REPORT ---
[facility] Patient: ADONIS PENNY : 1990 Sex at : Male Age: 33 Years Procedure: Upper GI endoscopy Date: 07/04/2024 Attending Physician: Everett Ayon MD Referring MD: Everett Ayon MD Indications: - Hematemesis Medications: - Monitored Anesthesia Care Complications: - No immediate complications. Procedure: - Prior to the procedure, a History and Physical was performed, and patient medications and allergies were reviewed. The patient's tolerance of previous anesthesia was also reviewed. The risks and benefits of the procedure and the sedation options and risks were discussed with the patient. All questions were answered, and informed consent was obtained. [Anticoagulant Agents] [Days Prior to Procedure]. [ASA Grade]. After reviewing the risks and benefits, the patient was deemed in satisfactory condition to undergo the procedure. - The egd scope was introduced through the mouth and advanced to the second part of the duodenum. - The upper GI endoscopy was accomplished without difficulty. - The patient tolerated the procedure well. Findings: - Grade III varices were found in the lower third of the esophagus and in the middle third of the esophagus. Four bands were successfully placed . There was no bleeding during the procedure. - Red blood was found in the gastric fundus. Patient was repositioned to the right side to evacuate blood from the fundus. No bleeding site was identified in the fundus or the rest of the stomach supporting esophageal variceal bleeding as the cause for hematemesis. - The examined duodenum was normal. Impression: - Grade III esophageal varices. Banded. - Red blood in the gastric fundus. - Patient was repositioned to the right side to evacuate blood from the fundus. No bleeding site was identified in the fundus supporting esophageal variceal bleeding as the cause for hematemesis. - Normal examined duodenum. - No specimens collected. Recommendation: - Resume previous diet. - Patient has a contact number available for emergencies. The signs and symptoms of potential delayed complications were discussed with the patient. Return to normal activities tomorrow. Written discharge instructions were provided to the patient. Procedure Code(s): - 99477, Esophagogastroduodenoscopy, flexible, transoral; with band ligation of esophageal/gastric varices Diagnosis Code(s): - K92.0, Hematemesis - I85.00, Esophageal varices without bleeding - K92.2, Gastrointestinal hemorrhage, unspecified CPT(R) - 2023 copyright [employer]. All Rights Reserved. The CPT codes, CCI edits and ICD codes generated are intended as suggestions and were generated based on input data. These codes are preliminary and upon furnace filler review may be revised to meet current compliance and payer requirements. The provider is responsible for the final determination of appropriate codes, and modifiers. Everett Ayon MD This document has been electronically signed. Note Initiated:07/04/2024 Note Completed:07/04/2024 8:45 AM \\[email or web address]\Provation\Results\[email or web address]\[id number]
[2024-07-04] MEDS: VECURONIUM BROMIDE 10 MG VIAL IV STA (09:01)
[2024-07-04] MEDS: RAPID SEQUENCE INDUCTION BAG ONE (09:04)
[2024-07-04] MEDS: VECURONIUM BROMIDE 10 MG VIAL IV ONE (09:04)
[2024-07-04] MEDS: NOREPINEPHRINE/D5W 4 MG/250 ML PLCT IV SCH (09:15)
[2024-07-04] MEDS: NOREPINEPHRINE/D5W 4 MG/250 ML IV ONE ×2 (09:19→09:27)
[2024-07-04] MEDS: MULTIVITAMIN TAB PO SCH (09:28)
[2024-07-04] MEDS: PALIPERIDONE 3 MG TABCR PO SCH (09:28)
[2024-07-04] MEDS: GABAPENTIN 300 MG CAP PO SCH ×2 (09:28→19:49)
[2024-07-04] MEDS: FOLIC ACID 1 MG TAB PO SCH (09:28)
[2024-07-04] MEDS: NSS IV ONE (09:50)
[2024-07-04] MEDS: ICU Protocol for HYPERglycemia SCH (09:50)
[2024-07-04] MEDS: POTASSIUM PHOSPHATE IV ONE (09:50)
[2024-07-04] MEDS: STAT IV/IM STA (10:32)
[2024-07-04] MEDS: STAT IV Infusion **Titration per Protocol STA (10:32)
[2024-07-04] MEDS: PROPOFOL BOLUS FROM BAG IV PRN (10:34)
[2024-07-04] MEDS: fentaNYL BOLUS from BAG IV PRN (10:35)
[2024-07-04 10:50] LABS: Appearance Urine Cloudy (Clear); Bacteria Urine Automated None Seen (None Seen); Bilirubin Urine 1+ (Negative); Blood Urine Negative (Negative); Color Urine Dark Yellow; Epithelial Cell Urine Auto 0-2 /hpf (0-2); Glucose Urine UA Negative (Negative); Granular Casts Urine Present /lpf (None Prsent); Hyaline Casts Urine Present /lpf (None Presnt); Ketones Urine Trace (Negative); Leukocyte Esterase Urine Trace (Negative); Nitrite Urine Negative (Negative); Protein Urine 1+ (Negative); RBC Urine Automated >20 /hpf (0-2); Specific Gravity Urine 1.025 (1.000-1.030); Urobilinogen Urine Positive (Negative); WBC Urine Automated 0-5 /hpf (0-5); pH Urine 6.5 (4.5-7.5)
[2024-07-04] MEDS: POTASSIUM CHLORIDE 20 MEQ/15 ML UDC GT STA (11:35)
[2024-07-04 13:44] LABS: Hematocrit (blood only) 30.6 % (42.0-52.0); Hemoglobin 10.5 g/dl (14.0-18.0)
--- NOTE | 2024-07-04 13:44 | Communication Note ---
Date of Service: July 04, 2024 Patient was seen and examined at bedside. 33-year-old male with PMH of alcoholic cirrhosis, esophageal varices, portal hypertensive gastropathy, chronic anemia [baseline hemoglobin 12-13], chronic thrombocytopenia, chronic back pain secondary to compression fractures, mood disorder, OCD, ongoing tobacco abuse who was brought in with complaint of sudden onset of hematemesis the night prior to arrival without any abdominal pain per family. Patient has a drinking problem and he started drinking 6 weeks after discharge from the hospital in April 2024 when he was admitted for hematemesis/alcohol intoxication. In the ED he was noted to have large hematemesis and his blood pressure dropped, hence he was intubated for airway protection for EGD. He is being managed for the following: Upper GI bleed, likely variceal bleed Transient hypotension Alcohol abuse History of esophageal varices and portal gastropathy and alcoholic cirrhosis Elevated risks of alcohol withdrawal Hypokalemia: secondary to emesis, monitor and replete. Patient presents with complaint of sudden onset of hematemesis, noted to have profuse hematemesis in the ED with hypotension. Patient was intubated in the ED for airway protection for EGD. Because of hypotension and tachycardia and large hematemesis in the ED, patient received 1 unit PRBC and 1 unit platelet in the ED. 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 Continue with PPI drip, octreotide drip, prophylactic antibiotic. GI on board, status post EGD 07/04/2024 - - grade 3 esophageal varices banded. Admitting hemoglobin of 11.8, monitor H&H. Patient received 2 unit PRBC and 1 unit platelets so far. Continue with THO S protocol, DT Precautions. Patient currently intubated and mechanically ventilated, getting midazolam/fentanyl/propofol drips. Patient being managed per ICU protocol. Possible UTI: UA suggestive of UTI, patient on antibiotic as above. Alcoholic hepatitis: poor prognosis as per computed Maddrey's DF score of 32.7 points at presentation. Other chronic medical conditions: Continue with/resume home meds as when able. chronic thrombocytopenia mood disorder, patient depressed as per family but not suicidal hx OCD as per records ongoing tobacco abuse: Nicotine patch as needed DVT prophylaxis. SCDs re: GI bleed Full code Patient partner Mr. Leydi Meng, contact #[phone]. Pt's mother and partner updated at bedside, answered all their questions. Text document was generated using [employer] voice recognition software. It may contain grammatical or spelling errors. Kindly contact undersigned for clarification of any documentation item in question. For detailed information on the patient, refer to today's H&P note.
[2024-07-04 14:03] LABS: Calcium 7.6 mg/dl (8.6-10.3); Creatinine Clr Calc Pharmacy 212.9 ml/min
[2024-07-04 17:37] LABS: Hematocrit (blood only) 30.4 % (42.0-52.0); Hemoglobin 10.6 g/dl (14.0-18.0)
[2024-07-04 23:29] LABS: Hematocrit (blood only) 28.1 % (42.0-52.0); Hemoglobin 9.9 g/dl (14.0-18.0)
[2024-07-05] MEDS: LACTATED RINGER'S 500 ML IV ONE (01:40)
[2024-07-05] MEDS: cefTRIAXone SODIUM 2,000 MG/50 ML BAG IV SCH (03:50)
[2024-07-05] MEDS: ACETAMINOPHEN 1,000 MG/100 ML VIAL IV PRN (05:15)
[2024-07-05] MEDS ORDERED: cefTRIAXone SODIUM 2,000 MG/50 ML BAG IV SCH (06:00)
[2024-07-05 06:17] LABS: Basophils # (auto) 0.06 K/uL (0.00-0.20); Basophils % (auto) 0.7 %; Eosinophils # (auto) 0.32 K/uL (0.00-0.50); Eosinophils % (auto) 3.8 %; Hematocrit (blood only) 28.7 % (42.0-52.0); Hemoglobin 9.8 g/dl (14.0-18.0); Immature Granulocytes # (auto) 0.05 K/uL (0.01-0.20); Immature Granulocytes % (auto) 0.6 %; Lymphocytes # (auto) 3.32 K/uL (1.20-3.40); Lymphocytes % (auto) 39.2 %; Mean Corpuscular Hemoglobin 31.9 pg (25.0-34.0); Mean Corpuscular Hgb Conc 34.1 g/dL (32.0-36.0); Mean Corpuscular Volume 93.5 fL (80.0-100.0); Mean Platelet Volume 11.6 fL (9.4-12.4); Monocytes # (auto) 0.55 K/uL (0.11-0.59); Monocytes % (auto) 6.5 %; Neutrophils # (auto) 4.16 K/uL (1.40-6.50); Neutrophils % (auto) 49.2 %; Platelet Count 46 K/uL (130-400); RDW Coefficient of Variation 18.9 % (11.5-14.5); RDW Standard Deviation 62.6 fL (36.4-46.3); Red Blood Count 3.07 M/uL (4.70-6.10); White Blood Count 8.46 K/ul (4.8-10.8)
[2024-07-05 06:30] LABS: BUN Creatinine Ratio 21.1 (10-20); Calcium 7.7 mg/dl (8.6-10.3); Creatinine Clr Calc Pharmacy 164.5 ml/min; Potassium 4.2 mmol/L (3.5-5.1)
--- NOTE | 2024-07-05 07:37 | Gastroenterology Progress Note ---
Date of Service July 05, 2024 Assessment & Plan (1) Esophageal varices: Plan: Status post esophageal variceal banding. No overt bleeding since procedure. Hemodynamically stable. Continue octreotide, PPI. Continue prophylactic antibiotics. (2) Alcoholic liver disease: Plan: Continue prophylaxis for alcohol withdrawal symptoms. Admission and Anticipated Discharge Date Admission Date: July 04, 2024 Subjective Patient intubated awake no distress Physical Exam Physical Exam: Intubated awake but sedated No acute distress Respiratory rate regular Cardiac rhythm regular Abdomen soft nontender Results & Data Results & Data Vital Signs (Past 12 Hours) Vital Signs Temp Pulse Resp BP Pulse Ox O2 Del Method FiO2 07/05/24 07:15 Mechanical Vent 07/05/24 06:57 87 07/05/24 06:18 37.7 C H 88 16 95 07/05/24 06:06 37.8 C H 88 16 95 07/05/24 06:00 123/65 07/05/24 05:48 37.9 C H 92 H 16 95 07/05/24 05:30 37.9 C H 94 H 16 91 07/05/24 05:30 122/66 07/05/24 05:30 122/66 07/05/24 05:30 122/66 07/05/24 04:33 37.7 C H 95 H 16 97 07/05/24 04:30 148/87 H 07/05/24 04:30 148/87 H 07/05/24 04:21 37.7 C H 95 H 16 98 07/05/24 04:18 37.7 C H 92 H 14 97 07/05/24 04:12 37.7 C H 91 H 14 98 07/05/24 04:00 143/84 H 07/05/24 04:00 143/84 H 07/05/24 04:00 30 07/05/24 03:57 37.7 C H 93 H 14 97 07/05/24 03:51 37.7 C H 92 H 14 97 07/05/24 03:33 37.7 C H 93 H 16 97 07/05/24 03:30 147/84 H 07/05/24 03:24 37.8 C H 96 H 14 98 07/05/24 03:00 37.8 C H 94 H 14 98 07/05/24 03:00 146/85 H 07/05/24 02:54 37.8 C H 92 H 14 98 07/05/24 02:36 37.8 C H 91 H 16 96 07/05/24 02:30 135/76 07/05/24 02:15 99 H 21 100 30 07/05/24 01:48 37.8 C H 92 H 16 97 07/05/24 01:45 37.8 C H 92 H 16 97 07/05/24 01:30 135/83 07/05/24 01:30 135/07/05/24 01:30 135/83 07/05/24 01:30 135/83 07/05/24 01:30 37.8 C H 98 H 16 96 07/05/24 01:00 37.9 C H 101 H 16 94 07/05/24 01:00 140/82 07/05/24 01:00 140/82 07/05/24 00:45 37.9 C H 99 H 16 95 07/05/24 00:30 139/76 07/05/24 00:30 139/76 07/05/24 00:30 139/76 07/05/24 00:30 139/76 07/05/24 00:30 37.9 C H 99 H 16 93 07/05/24 00:27 37.9 C H 102 H 16 95 07/05/24 00:00 135/77 07/05/24 00:00 30 07/04/24 23:09 37.9 C H 110 H 17 96 07/04/24 23:06 37.9 C H 103 H 16 95 07/04/24 22:57 37.8 C H 102 H 16 95 07/04/24 22:39 37.8 C H 104 H 16 95 07/04/24 22:30 139/82 07/04/24 22:30 139/82 07/04/24 22:27 37.8 C H 107 H 16 96 07/04/24 22:24 101 H 16 95 30 07/04/24 22:06 37.7 C H 108 H 16 94 07/04/24 22:00 136/91 07/04/24 21:57 37.7 C H 101 H 16 95 07/04/24 21:54 37.7 C H 104 H 16 95 07/04/24 21:33 37.7 C H 108 H 16 96 07/04/24 21:30 145/83 H 07/04/24 21:30 145/83 H 07/04/24 21:18 37.7 C H 108 H 16 95 07/04/24 21:06 37.7 C H 108 H 16 96 07/04/24 21:00 150/83 H 07/04/24 21:00 150/83 H 07/04/24 20:57 37.7 C H 108 H 16 96 07/04/24 20:33 37.7 C H 109 H 16 96 07/04/24 20:30 146/85 H 07/04/24 20:18 37.7 C H 108 H 16 96 07/04/24 20:01 108 H 16 100 30 07/04/24 20:00 151/90 H 07/04/24 20:00 37.7 C H 113 H 16 92 07/04/24 20:00 Mechanical Vent 30 07/04/24 20:00 30 07/04/24 19:48 37.7 C H 116 H 17 96 Laboratory Results Laboratory Results - last 48 hr 07/04/24 07/04/24 07/04/24 03:27 03:29 07:13 WBC 12.41 H RBC 3.59 L Hgb 11.8 L POC Hgb 11.6 L 10.5 L Hct 33.7 L POC Hct 34 L 31 L MCV 93.9 MCH 32.9 MCHC 35.0 RDW Std Deviation 58.9 H RDW Coeff of Joe 17.3 H Plt Count 49 L MPV 10.5 Immature Gran % (Auto) 0.4 Neut % (Auto) 34.4 Lymph % (Auto) 58.2 Hall % (Auto) 4.2 Eos % (Auto) 2.2 Baso % (Auto) 0.6 Neut # (Auto) 4.27 Lymph # (Auto) 7.22 H Hall # (Auto) 0.52 Eos # (Auto) 0.27 Baso # (Auto) 0.08 Immature Gran # (Auto) 0.05 PT 18.2 H INR 1.8 H APTT 29 PTT Ratio 1.1 POC pH 7.29 L POC pCO2 42 POC pO2 88 POC HCO3 20 POC Base Excess -6.0 POC ABG O2 Sat 96.0 H POC Sodium 140 139 Sodium 139 POC Potassium 3.1 L 4.0 Potassium 3.1 L POC Chloride 101 Chloride 99 Carbon Dioxide 26 POC Total CO2 24 22 L Anion Gap 14 H POC Anion Gap 19.0 POC BUN 8 BUN 10 Creatinine 0.67 POC Creatinine 1.1 Est Cr Clr Drug Dosing 158.9 eGFR 124.87 BUN/Creatinine Ratio 14.9 Glucose 114 H POC Glucose POC Glucose (other) 118 H Calcium 8.6 POC Ioniz Calcium William 1.00 L Phosphorus 3.1 Magnesium 1.6 L Total Bilirubin 4.2 H Direct Bilirubin 1.4 H AST 279 H ALT 115 H Alkaline Phosphatase 90 Troponin I High Sens 10.4 Total Protein 6.6 Albumin 3.8 Lipase 185 H TSH 2.540 Urine Color Urine Appearance Urine pH Ur Specific [place] Urine Protein Urine Glucose (UA) Urine Ketones Urine Blood Urine Nitrite Urine Bilirubin Urine Urobilinogen Ur Leukocyte Esterase Urine WBC (Auto) Urine RBC (Auto) U Hyaline Cast (Auto) U Epithel Cells (Auto) Urine Bacteria (Auto) Hyaline Casts Granular Casts Nasal Screen MRSA (PCR) Ethyl Alcohol mg/dL 272.9 H Blood Type A Positive Antibody Screen NEGATIVE Crossmatch See Detail 07/04/24 07/04/24 07/04/24 09:34 12:49 13:12 WBC RBC Hgb 10.5 L POC Hgb Hct 30.6 L POC Hct MCV MCH MCHC RDW Std Deviation RDW Coeff of Joe Plt Count MPV Immature Gran % (Auto) Neut % (Auto) Lymph % (Auto) Hall % (Auto) Eos % (Auto) Baso % (Auto) Neut # (Auto) Lymph # (Auto) Hall # (Auto) Eos # (Auto) Baso # (Auto) Immature Gran # (Auto) PT INR APTT PTT Ratio POC pH POC pCO2 POC pO2 POC HCO3 POC Base Excess POC ABG O2 Sat POC Sodium Sodium 137 POC Potassium Potassium 5.0 D POC Chloride Chloride 104 Carbon Dioxide 23 POC Total CO2 Anion Gap 10 POC Anion Gap POC BUN BUN 12 Creatinine 0.50 L POC Creatinine Est Cr Clr Drug Dosing 212.9 eGFR 136.41 BUN/Creatinine Ratio 24.0 H Glucose 138 H POC Glucose 162 H 162 H POC Glucose (other) Calcium 7.6 L POC Ioniz Calcium William Phosphorus Magnesium Total Bilirubin Direct Bilirubin AST ALT Alkaline Phosphatase Troponin I High Sens Total Protein Albumin Lipase TSH Urine Color Urine Appearance Urine pH Ur Specific [place] Urine Protein Urine Glucose (UA) Urine Ketones Urine Blood Urine Nitrite Urine Bilirubin Urine Urobilinogen Ur Leukocyte Esterase Urine WBC (Auto) Urine RBC (Auto) U Hyaline Cast (Auto) U Epithel Cells (Auto) Urine Bacteria (Auto) Hyaline Casts Granular Casts Nasal Screen MRSA (PCR) Ethyl Alcohol mg/dL Blood Type Antibody Screen Crossmatch 07/04/24 07/04/24 07/04/24 17:22 18:05 21:22 WBC RBC Hgb 10.6 L POC Hgb Hct 30.4 L POC Hct MCV MCH MCHC RDW Std Deviation RDW Coeff of Joe Plt Count MPV Immature Gran % (Auto) Neut % (Auto) Lymph % (Auto) Hall % (Auto) Eos % (Auto) Baso % (Auto) Neut # (Auto) Lymph # (Auto) Hall # (Auto) Eos # (Auto) Baso # (Auto) Immature Gran # (Auto) PT INR APTT PTT Ratio POC pH POC pCO2 POC pO2 POC HCO3 POC Base Excess POC ABG O2 Sat POC Sodium Sodium POC Potassium Potassium POC Chloride Chloride Carbon Dioxide POC Total CO2 Anion Gap POC Anion Gap POC BUN BUN Creatinine POC Creatinine Est Cr Clr Drug Dosing eGFR BUN/Creatinine Ratio Glucose POC Glucose 121 H 104 H POC Glucose (other) Calcium POC Ioniz Calcium William Phosphorus Magnesium Total Bilirubin Direct Bilirubin AST ALT Alkaline Phosphatase Troponin I High Sens Total Protein Albumin Lipase TSH Urine Color Urine Appearance Urine pH Ur Specific [place] Urine Protein Urine Glucose (UA) Urine Ketones Urine Blood Urine Nitrite Urine Bilirubin Urine Urobilinogen Ur Leukocyte Esterase Urine WBC (Auto) Urine RBC (Auto) U Hyaline Cast (Auto) U Epithel Cells (Auto) Urine Bacteria (Auto) Hyaline Casts Granular Casts Nasal Screen MRSA (PCR) Ethyl Alcohol mg/dL Blood Type Antibody Screen Crossmatch 07/04/24 07/04/24 07/05/24 23:11 Unknown 05:45 WBC 8.46 RBC 3.07 L Hgb 9.9 L 9.8 L POC Hgb Hct 28.1 L 28.7 L POC Hct MCV 93.5 MCH 31.9 MCHC 34.1 RDW Std Deviation 62.6 H RDW Coeff of Joe 18.9 H Plt Count 46 L MPV 11.6 Immature Gran % (Auto) 0.6 Neut % (Auto) 49.2 Lymph % (Auto) 39.2 Hall % (Auto) 6.5 Eos % (Auto) 3.8 Baso % (Auto) 0.7 Neut # (Auto) 4.16 Lymph # (Auto) 3.32 Hall # (Auto) 0.55 Eos # (Auto) 0.32 Baso # (Auto) 0.06 Immature Gran # (Auto) 0.05 PT INR APTT PTT Ratio POC pH POC pCO2 POC pO2 POC HCO3 POC Base Excess POC ABG O2 Sat POC Sodium Sodium 135 L POC Potassium Potassium 4.2 POC Chloride Chloride 103 Carbon Dioxide 30 POC Total CO2 Anion Gap 2 L POC Anion Gap POC BUN BUN 15 Creatinine 0.71 POC Creatinine Est Cr Clr Drug Dosing 164.5 eGFR 122.70 BUN/Creatinine Ratio 21.1 H Glucose 104 H POC Glucose POC Glucose (other) Calcium 7.7 L POC Ioniz Calcium William Phosphorus 3.0 Magnesium 2.0 Total Bilirubin Direct Bilirubin AST ALT Alkaline Phosphatase Troponin I High Sens Total Protein Albumin Lipase TSH Urine Color Dark Yellow Urine Appearance Cloudy A Urine pH 6.5 Ur Specific [place] 1.025 Urine Protein 1+ H Urine Glucose (UA) Negative Urine Ketones Trace H Urine Blood Negative Urine Nitrite Negative Urine Bilirubin 1+ H Urine Urobilinogen Positive H Ur Leukocyte Esterase Trace H Urine WBC (Auto) 0-5 Urine RBC (Auto) >20 H U Hyaline Cast (Auto) 11-20 H U Epithel Cells (Auto) 0-2 Urine Bacteria (Auto) None Seen Hyaline Casts Present A Granular Casts Present A Nasal Screen MRSA (PCR) Negative Ethyl Alcohol mg/dL Blood Type Antibody Screen Crossmatch 07/05/24 05:47 WBC RBC Hgb POC Hgb Hct POC Hct MCV MCH MCHC RDW Std Deviation RDW Coeff of Joe Plt Count MPV Immature Gran % (Auto) Neut % (Auto) Lymph % (Auto) Hall % (Auto) Eos % (Auto) Baso % (Auto) Neut # (Auto) Lymph # (Auto) Hall # (Auto) Eos # (Auto) Baso # (Auto) Immature Gran # (Auto) PT INR APTT PTT Ratio POC pH POC pCO2 POC pO2 POC HCO3 POC Base Excess POC ABG O2 Sat POC Sodium Sodium POC Potassium Potassium POC Chloride Chloride Carbon Dioxide POC Total CO2 Anion Gap POC Anion Gap POC BUN BUN Creatinine POC Creatinine Est Cr Clr Drug Dosing eGFR BUN/Creatinine Ratio Glucose POC Glucose 112 H POC Glucose (other) Calcium POC Ioniz Calcium William Phosphorus Magnesium Total Bilirubin Direct Bilirubin AST ALT Alkaline Phosphatase Troponin I High Sens Total Protein Albumin Lipase TSH Urine Color Urine Appearance Urine pH Ur Specific [place] Urine Protein Urine Glucose (UA) Urine Ketones Urine Blood Urine Nitrite Urine Bilirubin Urine Urobilinogen Ur Leukocyte Esterase Urine WBC (Auto) Urine RBC (Auto) U Hyaline Cast (Auto) U Epithel Cells (Auto) Urine Bacteria (Auto) Hyaline Casts Granular Casts Nasal Screen MRSA (PCR) Ethyl Alcohol mg/dL Blood Type Antibody Screen Crossmatch PG Care Time/CCT Total # of Minutes Spent Total Time Spent with Patient: Total time spent is greater than 50% in coordination of care (as documented) at patient's floor/unit and/or counseling patient: Coding Level of Care Code 24958 SUB INP/OBS CARE 350MIN Diagnoses Esophageal varices I85.00 Alcoholic liver disease K70.9
[2024-07-05] MEDS: FOLIC ACID 1 MG in SYRINGE 9.8 ML IV SCH (08:14)
[2024-07-05] MEDS: THIAMINE HCL 100 MG in SYRINGE 9 ML IV SCH (08:14)
--- NOTE | 2024-07-05 08:28 | Critical Care Progress Note ---
Date of Service July 05, 2024 Assessment & Plan (1) Alcoholic cirrhosis: (2) Esophageal varices: (3) Upper gastrointestinal hemorrhage: (4) Coffee ground emesis: (5) Bipolar 1 disorder: (6) Tobacco abuse: (7) Transaminitis: (8) Hyperbilirubinemia: Plan Reason Critically Ill: 33-year-old male admitted to the hospital for upper GI bleed. In the ICU post intubation hematemesis Past medical history: Alcohol abuse, bipolar disorder, insomnia, gastritis, chronic thrombocytopenia history of variceal bleed Neuro - [facility]: Unable to assess Fentanyl and propofol for sedation --History of alcohol abuse Alcohol level 273 on presentation -- Anxiety/depression On trazodone at home Cardiac - -- Transient hypotension Resolved with IV fluids Keep MAP greater than 65, add vasopressors if need be -- Prolonged QTc Likely secondary to electrolyte abnormalities Replace magnesium, potassium as well as phosphorus Avoid QT prolonging medication Respiratory - -- VDRF For airway protection from hematemesis Continue with ventilatory support Keep RASS -1 Daily sedation holidays and SBT's GI - -- Acute upper GI bleed secondary to variceal bleed, s/p banding 07/04/2024 The patient with history of heavy alcohol abuse Continue with octreotide with prophylactic antibiotic GI on board, s/p EGD 07/04/2024 -- Transaminitis Likely secondary to acute alcoholic hepatitis Continue to trend -- Chronically elevated lipase Continue to monitor RENAL/LYTES - -- Monitor BUN/creatinine Avoid nephrotoxic medications ENDO - -- ICU hypoglycemia protocol HEME - -- Acute upper GI bleed Monitor H&H Transfuse for HGB < 7 or active bleeding Transfuse for PLT < 10K or active bleeding Patient did get 1 single donor platelet on 07/04/2024 --Coagulopathy Likely from alcohol abuse Got vitamin K in the ED ID - -- Continue with Rocephin for SBP prophylaxis given variceal bleed UA negative --Prophylaxis VTE: IPC GI Protonix drip Lines: Peripheral Diet: N.p.o. Plan: In/out: +1830, urine output 850 mL Will continue octreotide for 72 hours and pantoprazole drip for 48 hours. Repeat H&H at 3 PM. Trial of extubation today. If successfully extubated will need to keep a close eye for alcohol withdrawal I have personally spent 34 minutes of critical care time in the direct management of this patient. This is a life/limb threatening event. This includes time spent evaluating patient, direct bedside care, chart review, placing orders, interpretation of diagnostic studies, discussion with consultants, patient, and family members, as well as other required patient management activities. This time is exclusive of all separately billable procedures, and teaching time and separate from and in addition to any other critical care service time. Thank you for allowing us to participate in the care of this patient. Please refer to my attending physician's documentation for any further recommendations. Admission and Anticipated Discharge Date Admission Date: July 04, 2024 Subjective Patient seen and examined at bedside. No acute distress, no adverse events overnight He was on pressure support at the time of examination. Getting good tidal volumes he was still somnolent as he was still on sedation 50 of fentanyl and 35 propofol which was turned off and I am entered the room He denied any headache, no chest pain, no abdominal pain H&H is stable Review of Systems 2 Review of Systems: All systems reviewed & are unremarkable except as noted in Subjective Physical Exam 2 Physical Exam: Constitutional: No acute distress HEENT: PERRLA, scleral icterus Respiratory system: Decreased air entry bilaterally, no wheeze, no rhonchi, mild crackles bilaterally lower lobes CVS: S1-S2 positive, no murmurs or gallops, tachycardia Abdomen: Soft, nontender, nondistended, positive bowel sounds x4 Extremities: +2 pulses bilaterally radialis/ dorsalis pedis, no cyanosis, m inimal edema bilateral lower extremity Neuro: RASS -1, answering questions appropriately, moving all extremities Psych: Unable to assess G/U: Positive Vazquez Skin: no rashes, warm and dry Lymphatic: no cervical or axillary lymphadenopathy Results & Data Results & Data Vital Signs (Past 12 Hours) Vital Signs Temp Pulse Resp BP Pulse Ox O2 Del Method FiO2 07/05/24 07:39 90 16 95 30 07/05/24 07:15 Mechanical Vent 07/05/24 06:57 87 07/05/24 06:18 37.7 C H 88 16 95 07/05/24 06:06 37.8 C H 88 16 95 07/05/24 06:00 123/65 07/05/24 05:48 37.9 C H 92 H 16 95 07/05/24 05:30 37.9 C H 94 H 16 91 07/05/24 05:30 122/66 07/05/24 05:30 122/66 07/05/24 05:30 122/66 07/05/24 04:33 37.7 C H 95 H 16 97 07/05/24 04:30 148/87 H 07/05/24 04:30 148/87 H 07/05/24 04:21 37.7 C H 95 H 16 98 07/05/24 04:18 37.7 C H 92 H 14 97 07/05/24 04:12 37.7 C H 91 H 14 98 07/05/24 04:00 143/84 H 07/05/24 04:00 143/84 H 07/05/24 04:00 30 07/05/24 03:57 37.7 C H 93 H 14 97 07/05/24 03:51 37.7 C H 92 H 14 97 07/05/24 03:33 37.7 C H 93 H 16 97 07/05/24 03:30 147/84 H 07/05/24 03:24 37.8 C H 96 H 14 98 07/05/24 03:00 37.8 C H 94 H 14 98 07/05/24 03:00 146/85 H 07/05/24 02:54 37.8 C H 92 H 14 98 07/05/24 02:36 37.8 C H 91 H 16 96 07/05/24 02:30 135/76 07/05/24 02:15 99 H 21 100 30 07/05/24 01:48 37.8 C H 92 H 16 97 07/05/24 01:45 37.8 C H 92 H 16 97 07/05/24 01:30 135/83 07/05/24 01:30 135/83 07/05/24 01:30 135/83 07/05/24 01:30 135/83 07/05/24 01:30 37.8 C H 98 H 16 96 07/05/24 01:00 37.9 C H 101 H 16 94 07/05/24 01:00 140/82 07/05/24 01:00 140/82 07/05/24 00:45 37.9 C H 99 H 16 95 07/05/24 00:30 139/76 07/05/24 00:30 139/76 07/05/24 00:30 139/76 07/05/24 00:30 139/76 07/05/24 00:30 37.9 C H 99 H 16 93 07/05/24 00:27 37.9 C H 102 H 16 95 07/05/24 00:00 135/77 07/05/24 00:00 30 07/04/24 23:09 37.9 C H 110 H 17 96 07/04/24 23:06 37.9 C H 103 H 16 95 07/04/24 22:57 37.8 C H 102 H 16 95 07/04/24 22:39 37.8 C H 104 H 16 95 07/04/24 22:30 139/82 07/04/24 22:30 139/82 07/04/24 22:27 37.8 C H 107 H 16 96 07/04/24 22:24 101 H 16 95 30 07/04/24 22:06 37.7 C H 108 H 16 94 07/04/24 22:00 136/91 07/04/24 21:57 37.7 C H 101 H 16 95 07/04/24 21:54 37.7 C H 104 H 16 95 07/04/24 21:33 37.7 C H 108 H 16 96 07/04/24 21:30 145/83 H 07/04/24 21:30 145/83 H 07/04/24 21:18 37.7 C H 108 H 16 95 07/04/24 21:06 37.7 C H 108 H 16 96 07/04/24 21:00 150/83 H 07/04/24 21:00 150/83 H 07/04/24 20:57 37.7 C H 108 H 16 96 07/04/24 20:33 37.7 C H 109 H 16 96 07/04/24 20:30 146/85 H Laboratory Results 07/05/24 05:45 07/05/24 05:45 Coding Level of Care Code 01083 CRITICAL CARE 1ST 30-74M Diagnoses Alcoholic cirrhosis K70.30 Esophageal varices I85.00 Upper gastrointestinal hemorrhage K92.2 Coffee ground emesis K92.0 Bipolar 1 disorder F31.9 Tobacco abuse Z72.0 Transaminitis R74.01 Hyperbilirubinemia E80.6
[2024-07-05] MEDS: CALCIUM GLUCONATE 1,000 MG/60 ML BAG IV STA (08:44)
--- NOTE | 2024-07-05 08:54 | XRay Report ---
HISTORY: Respiratory failure. TECHNIQUE: Portable AP radiograph of the chest. COMPARISON: Chest radiograph dated 07/04/2024. FINDINGS: Endotracheal tube tip is 4 cm above the emily. salesperson furniture leads overlie the chest. Low lung volumes with bronchovascular crowding. Mild vascular congestion. No pneumothorax. Mild left basilar opacity. No significant effusion. Top normal heart size. Left-sided aortic arch. Midline trachea. No acute osseous abnormality. Included upper abdomen is unremarkable. IMPRESSION: * Mild left basilar opacity favoring atelectasis in the setting of low lung volumes. Pneumonia or aspiration could have a similar appearance and cannot be excluded. * Endotracheal tube is 4 cm above the emily. * Additional findings as above. Electronically signed by Cory Hayden 07-05-2024 08:53 AM
[2024-07-05] MEDS ORDERED: THIAMINE HCL 500 MG in SYRINGE 9 ML IV SCH (09:00)
[2024-07-05] MEDS ORDERED: THIAMINE HCL 100 MG TAB PO SCH (09:00)
--- NOTE | 2024-07-05 09:10 | Electrocardiogram Report ---
Test Reason : Blood Pressure : */* mmHG Vent. Rate : 91 BPM Atrial Rate : 91 BPM P-R Int : 146 ms QRS Dur : 88 ms QT Int : 458 ms P-R-T Axes : 78 80 66 degrees QTcB Int : 563 ms Normal sinus rhythm Prolonged QT Abnormal ECG When compared with ECG of 21-Apr-2024 16:08, No significant change was found Confirmed by Gely Faulkner (Andrea) on 07/05/2024 9:10:07 AM Referred By: REFERRED SELF Confirmed By: Gely Faulkner
[2024-07-05] MEDS: THIAMINE HCL 500 MG in SODIUM CHLORIDE 0.9% 50 ML IV SCH (09:23)
[2024-07-05] MEDS: PLASMA-LYTE A 1,000 ML IV SCH (12:47)
--- NOTE | 2024-07-05 15:22 | Hospitalist Progress Note ---
Date of Service July 05, 2024 Assessment & Plan (1) Upper gastrointestinal hemorrhage: Plan 33-year-old male with PMH of alcoholic cirrhosis, esophageal varices, portal hypertensive gastropathy, chronic anemia [baseline hemoglobin 12-13], chronic thrombocytopenia, chronic back pain secondary to compression fractures, mood disorder, OCD, ongoing tobacco abuse who was brought in with complaint of sudden onset of hematemesis the night prior to arrival without any abdominal pain per family. Patient has a drinking problem and he started drinking 6 weeks after discharge from the hospital in April 2024 when he was admitted for hematemesis/alcohol intoxication. In the ED he was noted to have large hematemesis and his blood pressure dropped, hence he was intubated for airway protection for EGD. He is being managed for the following: Upper GI bleed, likely variceal bleed Transient hypotension Alcohol abuse History of esophageal varices and portal gastropathy and alcoholic cirrhosis Elevated risks of alcohol withdrawal Hypokalemia: secondary to emesis, monitor and replete. Patient presents with complaint of sudden onset of hematemesis, noted to have profuse hematemesis in the ED with hypotension. Patient was intubated in the ED for airway protection for EGD. Because of hypotension and tachycardia and large hematemesis in the ED, patient received 1 unit PRBC and 1 unit platelet in the ED. EMERGENCY MEDCL EMT, apparently patient trying to cut down on drinking with help of family over the last few days.--> Admitting EtOH level 272.9, last drink per pt's SO the midnight EMERGENCY MEDCL EMT. Continue with PPI drip, octreotide drip, prophylactic antibiotic. GI on board, status post EGD 07/04/2024 - - grade 3 esophageal varices banded. Admitting hemoglobin of 11.8, monitor H&H. Patient received 2 unit PRBC and 1 unit platelets so far. Continue with THO S protocol, DT Precautions. Patient extubated today, at risk of severe withdrawal Patient being managed per ICU protocol. Possible UTI: UA suggestive of UTI, patient on antibiotic as above. Alcoholic hepatitis: poor prognosis as per computed Maddrey's DF score of 32.7 points at presentation. Other chronic medical conditions: Continue with/resume home meds as when able. chronic thrombocytopenia mood disorder, patient depressed as per family but not suicidal hx OCD as per records ongoing tobacco abuse: Nicotine patch as needed DVT prophylaxis. SCDs re: GI bleed Full code Patient partner Mr. Leydi Meng, contact #[phone]. Pt's father updated at bedside, answered all their questions. Text document was generated using [employer] voice recognition software. It may contain grammatical or spelling errors. Kindly contact undersigned for clarification of any documentation item in question. Admission and Anticipated Discharge Date Admission Date: July 04, 2024 Subjective Patient was seen and examined at bedside. Patient was sitting up in bed, was already extubated in the morning and on 2 L nasal cannula oxygen, denies any pain. Patient is n.p.o., denies chest pain or headache or belly pain. Patient with low-grade fever overnight. Physical Exam Physical Exam: GENERAL: appears ill/sick/tired, on 2L NC O2, NAD. SKIN: Pallor, warm HEENT: Pale palpebral conjunctivae, no ptosis, moist buccal mucosa NECK : Supple, no tenderness CHEST : CTA, no tenderness, + bb crackles. HEART : RRR, no obvious murmurs, HR in 110s. ABDOMEN: Some distention, no tenderness EXTREMITIES : No LE swelling/tenderness, no other conspicuous deformities noted NEUROLOGIC : Sedated, no facial asymmetry, gait and stance not assessed +ve zarco Results & Data Results & Data Vital Signs (Past 12 Hours) Vital Signs Temp Pulse Resp BP Pulse Ox O2 Del Method O2 Flow Rate 07/05/24 09:07 94 Nasal Cannula 2 07/05/24 09:00 130/75 07/05/24 08:48 37.7 C H 108 H 16 95 07/05/24 08:40 116 H 10 L 96 07/05/24 08:03 37.5 C 87 16 07/05/24 08:00 116/65 07/05/24 07:39 90 16 95 07/05/24 07:15 Mechanical Vent 07/05/24 07:03 37.1 C 88 18 96 Mechanical Vent 07/05/24 07:00 128/67 07/05/24 06:57 87 07/05/24 06:18 37.7 C H 88 16 95 07/05/24 06:06 37.8 C H 88 16 95 07/05/24 06:00 123/65 07/05/24 05:48 37.9 C H 92 H 16 07/05/24 05:30 37.9 C H 94 H 16 91 07/05/24 05:30 122/66 07/05/24 05:30 122/66 07/05/24 05:30 122/66 07/05/24 04:33 37.7 C H 95 H 16 97 07/05/24 04:30 148/87 H 07/05/24 04:30 148/87 H 07/05/24 04:21 37.7 C H 95 H 16 98 07/05/24 04:18 37.7 C H 92 H 14 97 07/05/24 04:12 37.7 C H 91 H 14 98 07/05/24 04:00 143/84 H 07/05/24 04:00 143/84 H 07/05/24 04:00 07/05/24 03:57 37.7 C H 93 H 14 97 07/05/24 03:51 37.7 C H 92 H 14 97 07/05/24 03:33 37.7 C H 93 H 16 97 07/05/24 03:30 147/84 H 07/05/24 03:24 37.8 C H 96 H 14 98 FiO2 07/05/24 09:07 07/05/24 09:00 07/05/24 08:48 07/05/24 08:40 30 07/05/24 08:03 07/05/24 08:00 07/05/24 07:39 30 07/05/24 07:15 07/05/24 07:03 30 07/05/24 07:00 07/05/24 06:57 07/05/24 06:18 07/05/24 06:06 07/05/24 06:00 07/05/24 05:48 07/05/24 05:30 07/05/24 05:30 07/05/24 05:30 07/05/24 05:30 07/05/24 04:33 07/05/24 04:30 07/05/24 04:30 07/05/24 04:21 07/05/24 04:18 07/05/24 04:12 07/05/24 04:00 07/05/24 04:00 07/05/24 04:00 30 07/05/24 03:57 07/05/24 03:51 07/05/24 03:33 07/05/24 03:30 07/05/24 03:24
[2024-07-05 15:40] LABS: Hematocrit (blood only) 29.9 % (42.0-52.0); Hemoglobin 10.1 g/dl (14.0-18.0)
[2024-07-06 05:17] LABS: Hemoglobin 8.3 g/dl (14.0-18.0); Mean Corpuscular Hemoglobin 32.4 pg (25.0-34.0); Mean Corpuscular Hgb Conc 34.6 g/dL (32.0-36.0); Mean Corpuscular Volume 93.8 fL (80.0-100.0); Platelet Count 35 K/uL (130-400); RDW Coefficient of Variation 18.6 % (11.5-14.5); RDW Standard Deviation 63.1 fL (36.4-46.3); Red Blood Count 2.56 M/uL (4.70-6.10); White Blood Count 5.33 K/ul (4.8-10.8)
[2024-07-06 05:35] LABS: Albumin Level 2.8 gm/dl (3.4-5.0); Bilirubin Direct 2.1 mg/dl (0-0.2); Bilirubin,Total 5.1 mg/dl (0.2-1.0); Calcium 7.5 mg/dl (8.6-10.3); Creatinine Clr Calc Pharmacy 201.4 ml/min; Magnesium 1.8 mg/dl (1.7-2.4); Phosphorus 2.6 mg/dl (2.5-4.9); Potassium 3.8 mmol/L (3.5-5.1); Total Protein 4.9 gm/dl (6.0-8.3)
--- NOTE | 2024-07-06 09:20 | Gastroenterology Progress Note ---
Date of Service July 06, 2024 Assessment & Plan (1) Alcoholic liver disease: Plan: 33 year old male w/ history of alcoholic cirrhosis, esophageal varices, portal hypertensive gastropathy, chronic anemia (baseline hemoglobin 12-13), chronic thrombocytopenia, chronic back pain secondary to compression fractures, mood disorder, OCD and others admitted to the ICU following episodes of hematemesis prior to arrival s/p EGD 07/04 for banding of grade 3 varices. He is now extubated, awake, alert and oriented and hemodynamically stable w/ tentative plans for transfer to PCU today. 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 Admission and Anticipated Discharge Date Admission Date: July 04, 2024 Supervising Physician Co-Signing Physician Notes I personally saw and examined the patient. I have reviewed the chart and agree with the documentation provided by the TUBE SKIVER including discussion about the assessment, treatment and plan. Briefly, 33 year old male w/ history of alcoholic cirrhosis, esophageal varices, portal hypertensive gastropathy, chronic anemia (baseline hemoglobin 12-13), chronic thrombocytopenia, chronic back pain secondary to compression fractures, mood disorder, OCD and others admitted to the ICU following episodes of hematemesis prior to arrival s/p EGD 07/04 for banding of grade 3 varices. No active bleeding we will follow the hemoglobin. Keep him on IV PPI octreotide and ceftriaxone. Appreciate ICU care. Difficult situation as young patient with cirrhosis and now variceal bleeding. He will need a follow-up EGD for secondary prophylaxis with repeat banding in 6 to 8 weeks. Subjective Pt was seen and evaluated, chart reviewed. Extubated. Awake, alert and oriented. Feeling well. Denies abd pain, nausea/vomiting. Last BM was two days ago. No report of black or bloody stool since admission. He does recall large bouts of hematemesis prior to admission. Endorses ongoing ETOH abuse, pints to gallons of liquor weekly. Denies other substance abuse to me. S/P EGD 5/3 w/ banding of grade III varices. Review of Systems Review of Systems: All other findings negative except as noted in HPI. Physical Exam Constitutional: WD/WN, vitals as above Respiratory: normal respiratory effort, lungs clear to auscultation Cardiovascular: RRR, no murmur, no edema Gastrointestinal (Abdomen): Inspection/Auscultation: normal bowel sounds Skin: no rashes, warm and dry Results & Data Results & Data Vital Signs (Past 12 Hours) Vital Signs Temp Pulse Resp BP Pulse Ox 07/06/24 08:06 99.5 F 100 H 17 92 07/06/24 08:00 121/71 07/06/24 07:57 99.5 F 92 H 12 90 07/06/24 07:03 99.3 F 92 H 13 90 07/06/24 07:00 123/75 07/06/24 05:02 99.1 F 101 H 15 90 07/06/24 05:00 115/69 07/06/24 05:00 115/69 07/06/24 05:00 115/69 07/06/24 04:59 99.1 F 96 H 12 89 L 07/06/24 04:50 99.1 F 96 H 12 89 L 07/06/24 04:32 99.1 F 94 H 12 90 07/06/24 04:17 99.3 F 95 H 12 89 L 07/06/24 03:50 99.3 F 99 H 13 89 L 07/06/24 03:44 99.3 F 99 H 12 89 L 07/06/24 03:03 99.5 F 97 H 12 91 07/06/24 03:00 136/78 07/06/24 03:00 136/78 07/06/24 02:50 99.7 F H 103 H 11 L 91 07/06/24 02:48 99.7 F H 98 H 12 90 07/06/24 02:32 99.7 F H 100 H 11 L 91 07/06/24 02:18 99.9 F H 96 H 11 L 90 07/06/24 02:00 99.9 F H 94 H 12 91 07/06/24 02:00 121/62 07/06/24 02:00 121/62 07/06/24 01:48 100.0 F H 103 H 13 07/06/24 01:30 100.0 F H 101 H 12 07/06/24 01:21 100.2 F H 100 H 12 07/06/24 01:00 100.4 F H 97 H 13 07/06/24 01:00 129/07/06/24 01:00 129/07/06/24 01:00 12907/06/24 00:45 100.4 F H 96 H 14 07/06/24 00:34 118/07/06/24 00:34 118/07/06/24 00:30 100.6 F H 94 H 13 07/06/24 00:18 100.6 F H 96 H 12 07/06/24 00:00 100.8 F H 100 H 13 07/05/24 23:57 100.8 F H 101 H 15 07/05/24 23:42 100.8 F H 117 H 21 89 L 07/05/24 23:21 100.6 F H 107 H 15 07/05/24 23:09 100.8 F H 121 H 15 07/05/24 23:00 12107/05/24 23:00 12107/05/24 22:54 100.6 F H 102 H 15 07/05/24 22:30 100.6 F H 99 H 11 L 92 07/05/24 22:15 100.6 F H 99 H 9 L 92 07/05/24 22:00 111/69 07/05/24 21:57 100.6 F H 110 H 16 07/05/24 21:54 100.6 F H 119 H 22 07/05/24 21:36 100.6 F H 108 H 17 07/05/24 21:15 100.4 F H 97 H 13 93 Laboratory Results 07/06/24 07/06/24 07/06/24 Range/Units 05:05 05:02 00:17 WBC 5.33 (4.8-10.8) K/ul RBC 2.56 L (4.70-6.10) M/uL Hgb 8.3 L (14.0-18.0) g/dl Hct 24.0 L (42.0-52.0) % MCV 93.8 (80.0-100.0) fL MCH 32.4 (25.0-34.0) pg MCHC 34.6 (32.0-36.0) g/dL RDW Std Deviation 63.1 H (36.4-46.3) fL RDW Coeff of Joe 18.6 H (11.5-14.5) % Plt Count 35 L (130-400) K/uL MPV 11.0 (9.4-12.4) fL Blood Smear Review Sodium 134 L (136-145) mmol/L Potassium 3.8 (3.5-5.1) mmol/L Chloride 102 (98-107) mmol/L Carbon Dioxide 29 (21-32) mmol/L Anion Gap 3 (3-11) BUN 11 (6-23) mg/dl Creatinine 0.58 L (0.6-1.4) mg/dl Est Cr Clr Drug Dosing 201.4 ml/min eGFR 130.43 BUN/Creatinine Ratio 19.0 (10-20) Glucose 97 (70-99(Fasting)) mg/dl POC Glucose 101 H 112 H (70-99) mg/dl Calcium 7.5 L (8.6-10.3) mg/dl Phosphorus 2.6 (2.5-4.9) mg/dl Magnesium 1.8 (1.7-2.4) mg/dl Total Bilirubin 5.1 H (0.2-1.0) mg/dl Direct Bilirubin 2.1 H (0-0.2) mg/dl AST 226 H (13-39) U/L ALT 88 H (7-52) U/L Alkaline Phosphatase 60 (34-104) U/L Total Protein 4.9 L (6.0-8.3) gm/dl Albumin 2.8 L (3.4-5.0) gm/dl 07/05/24 07/05/24 07/05/24 Range/Units 17:38 15:15 11:27 WBC (4.8-10.8) K/ul RBC (4.70-6.10) M/uL Hgb 10.1 L (14.0-18.0) g/dl Hct 29.9 L (42.0-52.0) % MCV (80.0-100.0) fL MCH (25.0-34.0) pg MCHC (32.0-36.0) g/dL RDW Std Deviation (36.4-46.3) fL RDW Coeff of Joe (11.5-14.5) % Plt Count (130-400) K/uL MPV (9.4-12.4) fL Blood Smear Review Sodium (136-145) mmol/L Potassium (3.5-5.1) mmol/L Chloride (98-107) mmol/L Carbon Dioxide (21-32) mmol/L Anion Gap (3-11) BUN (6-23) mg/dl Creatinine (0.6-1.4) mg/dl Est Cr Clr Drug Dosing ml/min eGFR BUN/Creatinine Ratio (10-20) Glucose (70-99(Fasting)) mg/dl POC Glucose 122 H 124 H (70-99) mg/dl Calcium (8.6-10.3) mg/dl Phosphorus (2.5-4.9) mg/dl Magnesium (1.7-2.4) mg/dl Total Bilirubin (0.2-1.0) mg/dl Direct Bilirubin (0-0.2) mg/dl AST (13-39) U/L ALT (7-52) U/L Alkaline Phosphatase (34-104) U/L Total Protein (6.0-8.3) gm/dl Albumin (3.4-5.0) gm/dl 07/04/24 Range/Units 03:29 WBC (4.8-10.8) K/ul RBC (4.70-6.10) M/uL Hgb (14.0-18.0) g/dl Hct (42.0-52.0) % MCV (80.0-100.0) fL MCH (25.0-34.0) pg MCHC (32.0-36.0) g/dL RDW Std Deviation (36.4-46.3) fL RDW Coeff of Joe (11.5-14.5) % Plt Count (130-400) K/uL MPV (9.4-12.4) fL Blood Smear Review Cancelled Sodium (136-145) mmol/L Potassium (3.5-5.1) mmol/L Chloride (98-107) mmol/L Carbon Dioxide (21-32) mmol/L Anion Gap (3-11) BUN (6-23) mg/dl Creatinine (0.6-1.4) mg/dl Est Cr Clr Drug Dosing ml/min eGFR BUN/Creatinine Ratio (10-20) Glucose (70-99(Fasting)) mg/dl POC Glucose (70-99) mg/dl Calcium (8.6-10.3) mg/dl Phosphorus (2.5-4.9) mg/dl Magnesium (1.7-2.4) mg/dl Total Bilirubin (0.2-1.0) mg/dl Direct Bilirubin (0-0.2) mg/dl AST (13-39) U/L ALT (7-52) U/L Alkaline Phosphatase (34-104) U/L Total Protein (6.0-8.3) gm/dl Albumin (3.4-5.0) gm/dl Diagnostic Findings 07/06/24 07/06/24 07/06/24 Range/Units 05:05 05:02 00:17 WBC 5.33 (4.8-10.8) K/ul RBC 2.56 L (4.70-6.10) M/uL Hgb 8.3 L (14.0-18.0) g/dl Hct 24.0 L (42.0-52.0) % MCV 93.8 (80.0-100.0) fL MCH 32.4 (25.0-34.0) pg MCHC 34.6 (32.0-36.0) g/dL RDW Std Deviation 63.1 H (36.4-46.3) fL RDW Coeff of Joe 18.6 H (11.5-14.5) % Plt Count 35 L (130-400) K/uL MPV 11.0 (9.4-12.4) fL Blood Smear Review Sodium 134 L (136-145) mmol/L Potassium 3.8 (3.5-5.1) mmol/L Chloride 102 (98-107) mmol/L Carbon Dioxide 29 (21-32) mmol/L Anion Gap 3 (3-11) BUN 11 (6-23) mg/dl Creatinine 0.58 L (0.6-1.4) mg/dl Est Cr Clr Drug Dosing 201.4 ml/min eGFR 130.43 BUN/Creatinine Ratio 19.0 (10-20) Glucose 97 (70-99(Fasting)) mg/dl POC Glucose 101 H 112 H (70-99) mg/dl Calcium 7.5 L (8.6-10.3) mg/dl Phosphorus 2.6 (2.5-4.9) mg/dl Magnesium 1.8 (1.7-2.4) mg/dl Total Bilirubin 5.1 H (0.2-1.0) mg/dl Direct Bilirubin 2.1 H (0-0.2) mg/dl AST 226 H (13-39) U/L ALT 88 H (7-52) U/L Alkaline Phosphatase 60 (34-104) U/L Total Protein 4.9 L (6.0-8.3) gm/dl Albumin 2.8 L (3.4-5.0) gm/dl 07/05/24 07/05/24 07/05/24 Range/Units 17:38 15:15 11:27 WBC (4.8-10.8) K/ul RBC (4.70-6.10) M/uL Hgb 10.1 L (14.0-18.0) g/dl Hct 29.9 L (42.0-52.0) % MCV (80.0-100.0) fL MCH (25.0-34.0) pg MCHC (32.0-36.0) g/dL RDW Std Deviation (36.4-46.3) fL RDW Coeff of Joe (11.5-14.5) % Plt Count (130-400) K/uL MPV (9.4-12.4) fL Blood Smear Review Sodium (136-145) mmol/L Potassium (3.5-5.1) mmol/L Chloride (98-107) mmol/L Carbon Dioxide (21-32) mmol/L Anion Gap (3-11) BUN (6-23) mg/dl Creatinine (0.6-1.4) mg/dl Est Cr Clr Drug Dosing ml/min eGFR BUN/Creatinine Ratio (10-20) Glucose (70-99(Fasting)) mg/dl POC Glucose 122 H 124 H (70-99) mg/dl Calcium (8.6-10.3) mg/dl Phosphorus (2.5-4.9) mg/dl Magnesium (1.7-2.4) mg/dl Total Bilirubin (0.2-1.0) mg/dl Direct Bilirubin (0-0.2) mg/dl AST (13-39) U/L ALT (7-52) U/L Alkaline Phosphatase (34-104) U/L Total Protein (6.0-8.3) gm/dl Albumin (3.4-5.0) gm/dl 07/04/24 Range/Units 03:29 WBC (4.8-10.8) K/ul RBC (4.70-6.10) M/uL Hgb (14.0-18.0) g/dl Hct (42.0-52.0) % MCV (80.0-100.0) fL MCH (25.0-34.0) pg MCHC (32.0-36.0) g/dL RDW Std Deviation (36.4-46.3) fL RDW Coeff of Joe (11.5-14.5) % Plt Count (130-400) K/uL MPV (9.4-12.4) fL Blood Smear Review Cancelled Sodium (136-145) mmol/L Potassium (3.5-5.1) mmol/L Chloride (98-107) mmol/L Carbon Dioxide (21-32) mmol/L Anion Gap (3-11) BUN (6-23) mg/dl Creatinine (0.6-1.4) mg/dl Est Cr Clr Drug Dosing ml/min eGFR BUN/Creatinine Ratio (10-20) Glucose (70-99(Fasting)) mg/dl POC Glucose (70-99) mg/dl Calcium (8.6-10.3) mg/dl Phosphorus (2.5-4.9) mg/dl Magnesium (1.7-2.4) mg/dl Total Bilirubin (0.2-1.0) mg/dl Direct Bilirubin (0-0.2) mg/dl AST (13-39) U/L ALT (7-52) U/L Alkaline Phosphatase (34-104) U/L Total Protein (6.0-8.3) gm/dl Albumin (3.4-5.0) gm/dl PG Care Time/CCT Total # of Minutes Spent Total Time Spent with Patient: Total time spent is greater than 50% in coordination of care (as documented) at patient's floor/unit and/or counseling patient: Coding Level of Care Code 18136 SUB INP/OBS CARE 2/35MIN Diagnoses Alcoholic liver disease K70.9
--- NOTE | 2024-07-06 10:58 | Critical Care Progress Note ---
Date of Service July 06, 2024 Assessment & Plan (1) Alcoholic cirrhosis: (2) Esophageal varices: (3) Upper gastrointestinal hemorrhage: (4) Coffee ground emesis: (5) Bipolar 1 disorder: (6) Tobacco abuse: (7) Transaminitis: (8) Hyperbilirubinemia: Plan Reason Critically Ill: 33-year-old male admitted to the hospital for upper GI bleed. In the ICU post intubation hematemesis Past medical history: Alcohol abuse, bipolar disorder, insomnia, gastritis, chronic thrombocytopenia history of variceal bleed Neuro - [facility]: Negative --History of alcohol abuse Alcohol level 273 on presentation -- Anxiety/depression On trazodone at home Continue alcohol withdrawal protocol with gabapentin and thiamine. Continue lorazepam as needed. Cardiac - -- Transient hypotension Resolved Restart nadolol as BP improves and hemoglobin improves Respiratory - -- VDRF Patient saturating well on low-flow oxygen. Extubated 07/05/24. GI - -- Acute upper GI bleed secondary to variceal bleed, s/p banding x 4 07/04/2024 The patient with history of heavy alcohol abuse Continue with octreotide and Protonix. Discontinue prophylactic antibiotics. Defer octreotide to GI. Start clear liquid diet. -- Transaminitis LFTs improving. -- Chronically elevated lipase Continue to monitor RENAL/LYTES - -- Monitor BUN/creatinine Avoid nephrotoxic medications ENDO - -- ICU hypoglycemia protocol HEME - -- Acute upper GI bleed H&H with a mild drop compared to yesterday. Recheck H&H and INR. Possible hemodilution. No active signs of bleeding. Transfuse for HGB < 7 or active bleeding Transfuse for PLT < 10K or active bleeding Patient did get 1 single donor platelet on 07/04/2024 --Coagulopathy Likely from alcohol abuse Got vitamin K in the ED ID - -- Rocephin discontinued as of active bleeding has stopped. UA negative --Prophylaxis VTE: IPC GI Protonix drip Lines: Peripheral Diet: Clear liquids. Patient can be transferred to PCU. Admission and Anticipated Discharge Date Admission Date: July 04, 2024 Subjective Patient alert and oriented today. Denies any overt shakiness. He is able to have a normal conversation. He is eager to start a diet. He notes that he is hungry. Denies any abdominal pain, chest pain, fevers, headaches, night sweats or chest pain. Review of Systems Review of Systems: All systems reviewed & are unremarkable except as noted in HPI & below Physical Exam Physical Exam: Constitutional: No acute distress HEENT: PERRLA, scleral icterus Respiratory system: Decreased air entry bilaterally, no wheeze, no rhonchi, mild crackles bilaterally lower lobes CVS: S1-S2 positive, no murmurs or gallops, tachycardia Abdomen: Soft, nontender, nondistended, positive bowel sounds x4 Extremities: +2 pulses bilaterally radialis/ dorsalis pedis, no cyanosis, minimal edema bilateral lower extremity Neuro: answering questions appropriately, moving all extremities Psych: Unable to assess G/U: Positive Vazquez Skin: no rashes, warm and dry Lymphatic: no cervical or axillary lymphadenopathy Results & Data Results & Data Vital Signs (Past 12 Hours) Vital Signs Temp Pulse Resp BP Pulse Ox 07/06/24 10:06 37.4 C 87 14 90 07/06/24 10:00 104/66 07/06/24 09:48 37.5 C 91 H 15 90 07/06/24 09:03 37.5 C 100 H 13 92 07/06/24 09:00 118/97 07/06/24 08:51 37.5 C 108 H 18 91 07/06/24 08:06 37.5 C 100 H 17 92 07/06/24 08:00 121/71 07/06/24 07:57 37.5 C 92 H 12 90 07/06/24 07:03 37.4 C 92 H 13 90 07/06/24 07:00 123/75 07/06/24 05:02 37.3 C 101 H 15 90 07/06/24 05:00 115/69 07/06/24 05:00 115/07/06/24 05:00 115/69 07/06/24 04:59 37.3 C 96 H 12 89 L 07/06/24 04:50 37.3 C 96 H 12 89 L 07/06/24 04:32 37.3 C 94 H 12 90 07/06/24 04:17 37.4 C 95 H 12 89 L 07/06/24 03:50 37.4 C 99 H 13 89 L 07/06/24 03:44 37.4 C 99 H 12 89 L 07/06/24 03:03 37.5 C 97 H 12 91 05/05/25 03:00 136/78 07/06/24 03:00 13607/06/24 02:50 37.6 C H 103 H 11 L 07/06/24 02:48 37.6 C H 98 H 12 07/06/24 02:32 37.6 C H 100 H 11 L 07/06/24 02:18 37.7 C H 96 H 11 L 07/06/24 02:00 37.7 C H 94 H 12 07/06/24 02:00 07/06/24 02:00 07/06/24 01:48 37.8 C H 103 H 13 07/06/24 01:30 37.8 C H 101 H 12 07/06/24 01:21 37.9 C H 100 H 12 07/06/24 01:00 38.0 C H 97 H 13 07/06/24 01:00 129/07/06/24 01:00 12907/06/24 01:00 12907/06/24 00:45 38.0 C H 96 H 14 07/06/24 00:34 118/69 07/06/24 00:34 118/69 07/06/24 00:30 38.1 C H 94 H 13 07/06/24 00:18 38.1 C H 96 H 12 07/06/24 00:00 38.2 C H 100 H 13 07/05/24 23:57 38.2 C H 101 H 15 07/05/24 23:42 38.2 C H 117 H 21 89 L 07/05/24 23:21 38.1 C H 107 H 15 07/05/24 23:09 38.2 C H 121 H 15 07/05/24 23:00 121/70 07/05/24 23:00 121/70 07/05/24 22:54 38.1 C H 102 H 15 92 Coding Level of Care Code 93353 SUB INP/OBS CARE 2/35MIN Diagnoses Alcoholic cirrhosis K70.30 Esophageal varices I85.00 Upper gastrointestinal hemorrhage K92.2 Coffee ground emesis K92.0 Bipolar 1 disorder F31.9 Tobacco abuse Z72.0 Transaminitis R74.01 Hyperbilirubinemia E80.6
[2024-07-06 11:30] LABS: Hematocrit (blood only) 27.3 % (42.0-52.0); Hemoglobin 9.4 g/dl (14.0-18.0); Mean Corpuscular Hemoglobin 32.1 pg (25.0-34.0); Mean Corpuscular Hgb Conc 34.4 g/dL (32.0-36.0); Mean Corpuscular Volume 93.2 fL (80.0-100.0); Mean Platelet Volume 10.7 fL (9.4-12.4); Platelet Count 42 K/uL (130-400); RDW Coefficient of Variation 18.2 % (11.5-14.5); RDW Standard Deviation 61.5 fL (36.4-46.3); Red Blood Count 2.93 M/uL (4.70-6.10); White Blood Count 4.86 K/ul (4.8-10.8)
[2024-07-06 11:39] LABS: INR 1.7 (0.9-1.1); Prothrombin Time 17.2 Seconds (9.0-12.0)
--- NOTE | 2024-07-06 15:06 | Hospitalist Progress Note ---
Date of Service July 06, 2024 Assessment & Plan (1) Upper gastrointestinal hemorrhage: Plan 33-year-old male with PMH of alcoholic cirrhosis, esophageal varices, portal hypertensive gastropathy, chronic anemia [baseline hemoglobin 12-13], chronic thrombocytopenia, chronic back pain secondary to compression fractures, mood disorder, OCD, ongoing tobacco abuse who was brought in with complaint of sudden onset of hematemesis the night prior to arrival without any abdominal pain per family. Patient has a drinking problem and he started drinking 6 weeks after discharge from the hospital in April 2024 when he was admitted for hematemesis/alcohol intoxication. In the ED he was noted to have large hematemesis and his blood pressure dropped, hence he was intubated for airway protection for EGD. He is being managed for the following: Upper GI bleed, likely variceal bleed Transient hypotension Alcohol abuse History of esophageal varices and portal gastropathy and alcoholic cirrhosis Elevated risks of alcohol withdrawal Hypokalemia: secondary to emesis, monitor and replete. Patient presents with complaint of sudden onset of hematemesis, noted to have profuse hematemesis in the ED with hypotension. Patient was intubated in the ED for airway protection for EGD. Because of hypotension and tachycardia and large hematemesis in the ED, patient received 1 unit PRBC and 1 unit platelet in the ED. 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 Continue with PPI drip, octreotide drip, prophylactic antibiotic [plan atb for 5days] GI on board, status post EGD 07/04/2024 - - grade 3 esophageal varices banded. recs c/w iv ppi/octre/atb. will need a follow-up EGD for secondary prophylaxis with repeat banding in 6 to 8 weeks. Admitting hemoglobin of 11.8, monitor H&H. Patient received 2 unit PRBC and 1 unit platelets so far. Continue with THO S protocol, DT Precautions. Patient extubated 5/4 AM, at risk of severe withdrawal Possible UTI: UA suggestive of UTI, patient on antibiotic as above. Alcoholic hepatitis: poor prognosis as per computed Maddrey's DF score of 32.7 points at presentation. f/u w/ domestic violence counselor on dc. Other chronic medical conditions: Continue with/resume home meds as when able. chronic thrombocytopenia mood disorder, patient depressed as per family but not suicidal hx OCD as per records ongoing tobacco abuse: Nicotine patch as needed DVT prophylaxis. SCDs re: GI bleed Full code Patient partner Mr. Leydi Meng, contact #[phone]. Text document was generated using [employer] voice recognition software. It may contain grammatical or spelling errors. Kindly contact undersigned for clarification of any documentation item in question. Admission and Anticipated Discharge Date Admission Date: July 04, 2024 Subjective Patient was seen and examined at bedside. Patient was sitting up in bed, on RA, NAD. Patient started on clears today, denies chest pain or headache or belly pain. Patient afebrile last 1 day. Physical Exam Physical Exam: GENERAL: appears ill/sick/tired, on RA, NAD. SKIN: Pallor, warm HEENT: Pale palpebral conjunctivae, no ptosis, moist buccal mucosa NECK : Supple, no tenderness CHEST : CTA, no tenderness, + bb crackles. HEART : RRR, no obvious murmurs, HR in 90s ABDOMEN: No distention, no tenderness EXTREMITIES : No LE swelling/tenderness, no other conspicuous deformities noted NEUROLOGIC : no facial asymmetry, gait and stance not assessed +ve zarco Results & Data Results & Data Vital Signs (Past 12 Hours) Vital Signs Temp Pulse Resp BP Pulse Ox O2 Del Method 07/06/24 14:00 112/78 07/06/24 13:48 37.1 C 93 H 17 89 L 07/06/24 13:11 99 H 07/06/24 13:00 131/83 07/06/24 12:54 37.2 C 98 H 15 07/06/24 12:03 37.4 C 99 H 16 92 Room Air 07/06/24 12:00 123/74 07/06/24 11:01 130/82 07/06/24 10:54 37.4 C 102 H 14 91 07/06/24 10:06 37.4 C 87 14 90 07/06/24 10:00 104/66 07/06/24 09:48 37.5 C 91 H 15 90 07/06/24 09:03 37.5 C 100 H 13 92 07/06/24 09:00 118/97 07/06/24 08:51 37.5 C 108 H 18 91 07/06/24 08:06 37.5 C 100 H 17 92 07/06/24 08:00 121/71 07/06/24 07:57 37.5 C 92 H 12 90 07/06/24 07:03 37.4 C 92 H 13 90 07/06/24 07:00 123/75 07/06/24 05:02 37.3 C 101 H 15 90 07/06/24 05:00 115/07/06/24 05:00 11507/06/24 05:00 11507/06/24 04:59 37.3 C 96 H 12 89 L 07/06/24 04:50 37.3 C 96 H 12 89 L 07/06/24 04:32 37.3 C 94 H 12 90 07/06/24 04:17 37.4 C 95 H 12 89 L 07/06/24 03:50 37.4 C 99 H 13 89 L 07/06/24 03:44 37.4 C 99 H 12 89 L 07/06/24 03:03 37.5 C 97 H 12 91 07/06/24 03:00 136/78 07/06/24 03:00 [id number]
[2024-07-06] MEDS: PANTOprazole 40 MG/10 ML SYR x 1 IV SCH (20:01)
[2024-07-07] MEDS: cefTRIAXone SODIUM 2,000 MG/50 ML BAG IV SCH (00:11)
[2024-07-07 05:11] LABS: Hematocrit (blood only) 25.3 % (42.0-52.0); Mean Corpuscular Hgb Conc 35.6 g/dL (32.0-36.0); Mean Corpuscular Volume 92.7 fL (80.0-100.0); Mean Platelet Volume 10.7 fL (9.4-12.4); Platelet Count 47 K/uL (130-400); RDW Coefficient of Variation 17.8 % (11.5-14.5); RDW Standard Deviation 60.3 fL (36.4-46.3); Red Blood Count 2.73 M/uL (4.70-6.10); White Blood Count 4.23 K/ul (4.8-10.8)
[2024-07-07 05:24] LABS: Albumin Level 3.1 gm/dl (3.4-5.0); Bilirubin Direct 2.6 mg/dl (0-0.2); Bilirubin,Total 6.5 mg/dl (0.2-1.0); Calcium 7.9 mg/dl (8.6-10.3); Creatinine Clr Calc Pharmacy 238.4 ml/min; Magnesium 1.7 mg/dl (1.7-2.4); Phosphorus 2.2 mg/dl (2.5-4.9); Potassium 3.4 mmol/L (3.5-5.1); Total Protein 5.1 gm/dl (6.0-8.3)
--- NOTE | 2024-07-07 08:45 | Gastroenterology Progress Note ---
Date of Service July 07, 2024 Assessment & Plan (1) Hematemesis: Plan: 33 year old male w/ history of alcoholic cirrhosis, esophageal varices, portal hypertensive gastropathy, chronic anemia (baseline hemoglobin 12-13), chronic thrombocytopenia, chronic back pain secondary to compression fractures, mood disorder, OCD and others admitted to the ICU following episodes of hematemesis prior to arrival s/p EGD 07/04 for banding of grade 3 varices. He is now extubated, awake, alert and oriented and hemodynamically stable w/ tentative plans for transfer to PCU today. 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 with established OP network security engineer Advance diet as tolerated to low NA sodium Trend H&H Transfuse PRN per primary team Monitor and document GI output Recall GI as needed. I spent a total of 40 minutes on the date of service in review of patient's record, and previously obtained information in person and appropriate medical visit, discussion and education of plan, with patient and/or caregiver, placing orders for tests/referral/procedures as medically necessary and documentation of pertinent clinical information in patient's medical records for their visit today.Thank you for allowing us to participate in the care of this patient. Please call with any acute changes, questions or concerns. Please see addendum below with additional recommendation from my supervising physician. Admission and Anticipated Discharge Date Admission Date: July 04, 2024 Supervising Physician Co-Signing Physician Notes I personally saw and examined the patient. I have reviewed the chart and agree with the documentation provided by the SOCIAL SERVICES ASSISTANT including discussion about the assessment, treatment and plan. Briefly, tolerating a liquid diet. Will advance to soft solids. No bleeding so far. Off octreotide. Patient will need follow-up with Dr. Hernandes outpatient, his network security engineer. He will need an EGD with banding in 6 to 8 weeks. In the meantime he should strongly consider outpatient rehab and absolutely get into AA. Patient will think about it. He has no asterixis today and is doing better. GI will sign off please call us with any questions Subjective Pt was seen and evaluated, chart reviewed. No abd pain. No nausea/vomiting. No BMs since extubation. Tolerating liquids. Wishes to advance diet. Review of Systems Review of Systems: All other findings negative except as noted in HPI. Physical Exam Constitutional: WD/WN, vitals as above Respiratory: normal respiratory effort, lungs clear to auscultation Cardiovascular: Rate/Rhythm: regular rate Gastrointestinal (Abdomen): Inspection/Auscultation: normal bowel sounds Skin: no rashes, warm and dry Results & Data Results & Data Vital Signs (Past 12 Hours) Vital Signs Temp Pulse Resp BP Pulse Ox O2 Del Method 07/07/24 07:35 98.6 F 104 H 20 162/92 H 94 Room Air 07/07/24 03:38 98.4 F 101 H 21 146/85 H 92 Room Air 07/06/24 23:53 98.4 F 106 H 14 159/91 H 94 Room Air Laboratory Results 07/07/24 07/06/24 07/04/24 Range/Units 04:30 10:59 03:29 WBC 4.23 L 4.86 (4.8-10.8) K/ul RBC 2.73 L 2.93 L (4.70-6.10) M/uL Hgb 9.0 L 9.4 L (14.0-18.0) g/dl Hct 25.3 L 27.3 L (42.0-52.0) % MCV 92.7 93.2 (80.0-100.0) fL MCH 33.0 32.1 (25.0-34.0) pg MCHC 35.6 34.4 (32.0-36.0) g/dL RDW Std Deviation 60.3 H 61.5 H (36.4-46.3) fL RDW Coeff of Joe 17.8 H 18.2 H (11.5-14.5) % Plt Count 47 L 42 L (130-400) K/uL MPV 10.7 10.7 (9.4-12.4) fL PT 17.2 H (9.0-12.0) Seconds INR 1.7 H (0.9-1.1) Sodium 133 L (136-145) mmol/L Potassium 3.4 L (3.5-5.1) mmol/L Chloride 100 (98-107) mmol/L Carbon Dioxide 29 (21-32) mmol/L Anion Gap 4 (3-11) BUN 6 (6-23) mg/dl Creatinine 0.50 L (0.6-1.4) mg/dl Est Cr Clr Drug Dosing 238.4 ml/min eGFR 136.41 BUN/Creatinine Ratio 12.0 (10-20) Glucose 101 H (70-99(Fasting)) mg/dl Calcium 7.9 L (8.6-10.3) mg/dl Phosphorus 2.2 L (2.5-4.9) mg/dl Magnesium 1.7 (1.7-2.4) mg/dl Total Bilirubin 6.5 H (0.2-1.0) mg/dl Direct Bilirubin 2.6 H (0-0.2) mg/dl AST 195 H (13-39) U/L ALT 82 H (7-52) U/L Alkaline Phosphatase 70 (34-104) U/L Total Protein 5.1 L (6.0-8.3) gm/dl Albumin 3.1 L (3.4-5.0) gm/dl Crossmatch See Detail PG Care Time/CCT Total # of Minutes Spent Total Time Spent with Patient: Total time spent is greater than 50% in coordination of care (as documented) at patient's floor/unit and/or counseling patient: Coding Level of Care Code 51541 SUB INP/OBS CARE 2/35MIN Diagnoses Hematemesis K92.0 Nausea presence: with nausea (1) Hematemesis Nausea presence: with nausea Qualified Code(s): K92.0 - Hematemesis
[2024-07-07] MEDS: nadoloL 40 MG TAB PO SCH (09:03)
[2024-07-07] MEDS: POTASSIUM PHOSPHATE 15 MMOL in SODIUM CHLORIDE 0.9% 250 ML IV ONE (09:05)
[2024-07-07] MEDS: POTASSIUM CHLORIDE CRTAB 20 MEQ TABCR PO STA (09:07)
[2024-07-07] MEDS: POTASSIUM PHOS 3 MMOL/1 ML INFUSION IV STA (09:28)
--- NOTE | 2024-07-07 13:16 | Hospitalist Progress Note ---
Date of Service July 07, 2024 Assessment & Plan (1) Upper gastrointestinal hemorrhage: Plan 33-year-old male with PMH of alcoholic cirrhosis, esophageal varices, portal hypertensive gastropathy, chronic anemia [baseline hemoglobin 12-13], chronic thrombocytopenia, chronic back pain secondary to compression fractures, mood disorder, OCD, ongoing tobacco abuse who was brought in with complaint of sudden onset of hematemesis the night prior to arrival without any abdominal pain per family. Patient has a drinking problem and he started drinking 6 weeks after discharge from the hospital in April 2024 when he was admitted for hematemesis/alcohol intoxication. In the ED he was noted to have large hematemesis and his blood pressure dropped, hence he was intubated for airway protection for EGD. He is being managed for the following: Upper GI bleed, likely variceal bleed Transient hypotension Alcohol abuse History of esophageal varices and portal gastropathy and alcoholic cirrhosis Elevated risks of alcohol withdrawal Hypokalemia: secondary to emesis, monitor and replete. Patient presents with complaint of sudden onset of hematemesis, noted to have profuse hematemesis in the ED with hypotension. Patient was intubated in the ED for airway protection for EGD. Because of hypotension and tachycardia and large hematemesis in the ED, patient received 1 unit PRBC and 1 unit platelet in the ED. INSTRUCTOR ROBOTICS, apparently patient trying to cut down on drinking with help of family over the last few days.--> Admitting EtOH level 272.9, last drink per pt's SO the midnight INSTRUCTOR ROBOTICS. Continue with PPI drip, prophylactic antibiotic [plan atb for 5days] GI on board, status post EGD 07/04/2024 - - grade 3 esophageal varices banded. recs c/w iv ppi/octre/atb. will need a follow-up EGD for secondary prophylaxis with repeat banding in 6 to 8 weeks. Admitting hemoglobin of 11.8, monitor H&H. Patient received 2 unit PRBC and 1 unit platelets so far. Continue with THO S protocol, DT Precautions. Patient extubated 5/4 AM, at risk of severe withdrawal Hb 9 currently, adv diet per GI recs, and ensure HnH stability. Possible UTI: UA suggestive of UTI, patient on antibiotic as above. Alcoholic hepatitis: poor prognosis as per computed Maddrey's DF score of 32.7 points at presentation. f/u w/ dentistry professor on dc. Other chronic medical conditions: Continue with/resume home meds as when able. chronic thrombocytopenia mood disorder, patient depressed as per family but not suicidal hx OCD as per records ongoing tobacco abuse: Nicotine patch as needed DVT prophylaxis. SCDs re: GI bleed Full code Patient partner Mr. Leydi Meng, contact #[phone]. Text document was generated using [employer] voice recognition software. It may contain grammatical or spelling errors. Kindly contact undersigned for clarification of any documentation item in question. Admission and Anticipated Discharge Date Admission Date: July 04, 2024 Subjective Patient was seen and examined at bedside. Patient was sitting up in bed, on RA, NAD. Patient tolerating clears well, ADAT per GI, will do full liq w/ plan for soft diet in dinner. Patient afebrile last 2 day. Denies abdominal pain. Physical Exam Physical Exam: GENERAL: appears ill/sick/tired, on RA, NAD. SKIN: Pallor. icterus, warm HEENT: Pale palpebral conjunctivae, no ptosis, moist buccal mucosa NECK : Supple, no tenderness CHEST : CTA, no tenderness, + bb crackles. HEART : RRR, no obvious murmurs, HR in 90s ABDOMEN: No distention, no tenderness EXTREMITIES : No LE swelling/tenderness, no other conspicuous deformities noted NEUROLOGIC : no facial asymmetry, gait and stance not assessed Results & Data Results & Data Vital Signs (Past 12 Hours) Vital Signs Temp Pulse Pulse Resp BP Pulse Ox O2 Del Method 07/07/24 11:27 37.1 C 81 20 139/90 90 Room Air 07/07/24 07:35 37 C 104 H 20 162/92 H 94 Room Air 07/07/24 06:49 90 07/07/24 03:38 36.9 C 101 H 21 146/85 H 92 Room Air
[2024-07-07] MEDS: MAGNESIUM SULFATE / D5W 1 GM/100 ML BAG IV ONE (14:29)
[2024-07-07 16:39] VITALS: RESP 18
[2024-07-07] MEDS: FUROSEMIDE 40 MG TAB PO SCH (21:21)
[2024-07-08 07:13] LABS: Hematocrit (blood only) 27.6 % (42.0-52.0); Hemoglobin 9.7 g/dl (14.0-18.0); Mean Corpuscular Hemoglobin 32.3 pg (25.0-34.0); Mean Corpuscular Hgb Conc 35.1 g/dL (32.0-36.0); Mean Platelet Volume 9.5 fL (9.4-12.4); Platelet Count 70 K/uL (130-400); RDW Coefficient of Variation 18.4 % (11.5-14.5); RDW Standard Deviation 61.2 fL (36.4-46.3)
[2024-07-08 07:53] LABS: Albumin Globulin Ratio 1.3 (0.9-2); BUN Creatinine Ratio 9.3 (10-20); Bilirubin,Total 5.5 mg/dl (0.2-1.0); Calcium 7.8 mg/dl (8.6-10.3); Creatinine Clr Calc Pharmacy 217.1 ml/min; Globulin 2.3 gm/dl (2.5-4.0); Magnesium 1.6 mg/dl (1.7-2.4); Phosphorus 2.8 mg/dl (2.5-4.9); Potassium 3.3 mmol/L (3.5-5.1); Total Protein 5.3 gm/dl (6.0-8.3)
[2024-07-08] MEDS: busPIRone 5 MG TAB PO PRN (09:15)
[2024-07-08] MEDS: THIAMINE HCL 100 MG in SYRINGE 9 ML IV SCH (09:15)
[2024-07-08] MEDS: SPIRONOLACTONE 25 MG TAB PO SCH (09:16)
[2024-07-08] MEDS: POTASSIUM CHLORIDE 20 MEQ/15 ML UDC PO STA (10:22)
[2024-07-08 11:49] VITALS: BP 130/73; PULSE 78; TEMP 98.6; O2SAT 95
--- NOTE | 2024-07-08 12:23 | Hospitalist Progress Note ---
Date of Service July 08, 2024 Assessment & Plan (1) Acute upper gastrointestinal bleeding: (2) Alcoholic liver disease: (3) Transaminitis: (4) Esophageal varices: Plan 33-year-old male with PMH of alcoholic cirrhosis, esophageal varices, portal hypertensive gastropathy, chronic anemia [baseline hemoglobin 12-13], chronic thrombocytopenia, chronic back pain secondary to compression fractures, mood disorder, OCD, ongoing tobacco abuse who was brought in with complaint of sudden onset of hematemesis the night prior to arrival without any abdominal pain per family. Patient has a drinking problem and he started drinking 6 weeks after discharge from the hospital in April 2024 when he was admitted for hematemesis/alcohol intoxication. In the ED he was noted to have large hematemesis and his blood pressure dropped, hence he was intubated for airway protection for EGD. He is being managed for the following: Upper GI bleed, likely variceal bleed Transient hypotension History of esophageal varices and portal gastropathy and alcoholic cirrhosis Required INTUBATION on Admission Patient presents with complaint of sudden onset of hematemesis, noted to have profuse hematemesis in the ED with hypotension. Patient was intubated in the ED for airway protection for EGD. Because of hypotension and tachycardia and large hematemesis in the ED, patient received 1 unit PRBC and 1 unit platelet in the ED. Patient extubated 5/4 AM, at risk of severe withdrawal Continue with PPI drip, prophylactic antibiotic [plan atb for 5days] Appreciate GI input and recommendation GI on board, status post EGD 07/04/2024 - - grade 3 esophageal varices banded. recs c/w iv ppi/octre/atb. will need a follow-up EGD for secondary prophylaxis with repeat banding in 6 to 8 weeks. Admitting hemoglobin of 11.8, monitor H&H. Patient received 2 unit PRBC and 1 unit platelets so far. Hb 9 currently, adv diet per GI recs, and ensure HnH stability. Hemoglobin remains stable at 9.7 today Alcohol abuse Elevated risks of alcohol withdrawal Hypokalemia: secondary to emesis, monitor and replete. 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 Continue with THO S protocol, DT Precautions. No signs and or symptoms of withdrawal He is ambulating in the hallway without any problem He will be discharged home this afternoon and he will have follow-up with alcohol Anonymous group Refused to go to inpatient rehab Possible UTI: UA suggestive of UTI, patient on antibiotic as above. Alcoholic hepatitis: poor prognosis as per computed Maddrey's DF score of 32.7 points at presentation. 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 Other chronic medical conditions: Continue with/resume home meds as when able. chronic thrombocytopenia mood disorder, patient depressed as per family but not suicidal hx OCD as per records ongoing tobacco abuse: Nicotine patch as needed DVT prophylaxis. SCDs re: GI bleed Full code Patient partner Mr. Leydi Meng, contact #[phone]. Text document was generated using [employer] voice recognition software. It may contain grammatical or spelling errors. Kindly contact undersigned for clarification of any documentation item in question. Admission and Anticipated Discharge Date Admission Date: July 04, 2024 Subjective 07/08/2024 The patient was seen and examined in telemetry unit He has been feeling much better and denies any significant symptoms He has been ambulating in the room and in the hallway without any symptoms He wants to be discharged today Review of Systems Review of Systems: All systems reviewed and are unremarkable except as noted below Physical Exam Physical Exam: Sitting at the edge of the bed without any acute distress Constitutional: well developed and well nourished; not ill appearing Eyes: PERRL, conjunctivae normal, anicteric sclerae ENMT: external ear and nose normal, oropharynx normal Neck: trachea midline, no thyromegaly Respiratory: no respiratory distress Auscultation: lungs clear to auscultation bilaterally Cardiovascular: Rate/Rhythm: regular rate and regular rhythm; not tachycardic Heart Sounds: normal S1 and normal S2; no murmur Extremities: no edema Gastrointestinal (Abdomen): Inspection/Auscultation: normal bowel sounds; abdomen not distended Percussion/Palpation: abdomen soft; abdomen nontender Musculoskeletal: No acute arthritis involving any of the joint Neurologic: normal touch/pain/proprioception and moves all extremities; no focal motor deficits Lymphatic: no cervical or axillary lymphadenopathy Results & Data Results & Data Vital Signs (Past 12 Hours) Vital Signs Temp Pulse Pulse Resp BP Pulse Ox O2 Del Method 07/08/24 11:48 37.0 C 78 18 130/73 95 Room Air 07/08/24 09:30 Room Air 07/08/24 07:31 85 07/08/24 07:20 36.8 C 88 18 138/72 94 Room Air 07/08/24 02:25 37.1 C 70 18 134/76 94 Room Air Laboratory Results Short CBC 07/08/24 Range/Units 06:40 WBC 5.10 (4.8-10.8) K/ul Hgb 9.7 L (14.0-18.0) g/dl Hct 27.6 L (42.0-52.0) % Plt Count 70 L (130-400) K/uL BMP 07/08/24 06:40 Sodium 135 L Potassium 3.3 L Chloride 101 Carbon Dioxide 29 BUN 5 L Creatinine 0.54 L Glucose 101 H Calcium 7.8 L Liver Function 07/08/24 Range/Units 06:40 Total Bilirubin 5.5 H (0.2-1.0) mg/dl AST 150 H (13-39) U/L ALT 71 H (7-52) U/L Alkaline Phosphatase 84 (34-104) U/L Albumin 3.0 L (3.4-5.0) gm/dl Medications Administered Current Inpatient Medications Acetaminophen (Acetaminophen 500 Mg Tab) 500 mg PO Q6H PRN PRN Reason: fever/pain Stop: 08/03/24 05:38 Buspirone HCl (Buspirone 5 Mg Tab) 5 mg PO TID PRN PRN Reason: Anxiety Stop: 08/03/24 05:36 Last Admin: 07/08/24 09:15 Dose: 5 mg Furosemide (Furosemide 40 Mg Tab) 40 mg PO BID PUJA Stop: 08/06/24 20:59 Last Admin: 07/08/24 09:17 Dose: 40 mg Gabapentin (Gabapentin 300 Mg Cap) 300 mg PO QAM PUJA Stop: 08/03/24 08:59 Last Admin: 07/08/24 09:15 Dose: 300 mg Gabapentin (Gabapentin 300 Mg Cap) 600 mg PO QPM PUJA Stop: 08/03/24 20:59 Last Admin: 07/07/24 21:22 Dose: 600 mg Folic Acid 1 mg/ Syringe 10 mls @ 5 mls/min IV QAM PUJA Stop: 08/04/24 08:59 Last Admin: 07/08/24 09:16 Dose: 5 mls/min Pantoprazole Sodium (Protonix) 40 mg in 10 mls @ 5 mls/min IV BID [facility] Stop: 08/05/24 20:59 Last Admin: 07/08/24 10:21 Dose: 5 mls/min Thiamine HCl 100 mg/ Syringe 10 mls @ 2 mls/min IV DAILY PUJA Stop: 08/07/24 08:59 Last Admin: 07/08/24 09:15 Dose: 2 mls/min Ceftriaxone Sodium (Rocephin) 2,000 mg in 50 mls @ 100 mls/hr IV Q24H PUJA Stop: 07/09/24 06:29 Last Infusion: 07/08/24 06:43 Dose: Infused Lorazepam (Lorazepam 2 Mg/1 Ml Vial) 1 mg IV UD PRN; Protocol PRN Reason: EtOH Withdrawal AWSS Score 6,7 Stop: 08/03/24 05:37 Lorazepam (Lorazepam 2 Mg/1 Ml Vial) 2 mg IV UD PRN; Protocol PRN Reason: EtOH Withdrawal AWSS Score 8,9 Stop: 08/03/24 05:37 Lorazepam (Lorazepam 2 Mg/1 Ml Vial) 3 mg IV ONCE PRN; Protocol PRN Reason: EtOH Withdrawal AWSS Score 10+ Multivitamins ([facility]ivitamin Tab) [facility] [place] Stop: 08/03/24 08:59 Last Admin: 07/08/24 09:15 Dose: 1 tab Nadolol (Nadolol 40 Mg Tab) [facility] [place] Stop: 08/06/24 08:59 Last Admin: 07/08/24 09:16 Dose: 40 mg Paliperidone (Paliperidone 3 Mg Tabcr) 9 [facility] [place] Stop: 08/03/24 08:59 Last Admin: 07/08/24 09:17 Dose: 9 mg Spironolactone (Spironolactone 25 Mg Tab) 25 [facility] [place] Stop: 08/07/24 08:59 Last Admin: 07/08/24 09:16 Dose: 25 mg
--- NOTE | 2024-07-08 17:14 | Discharge Summary ---
Date of Service July 08, 2024 Admission HPI Per Admitting Provider History obtained from patient's family and records. Unable to obtain history from patient secondary to obtunded state post Ativan administration at the ER. Medical history significant for alcoholic cirrhosis, esophageal varices, portal hypertensive gastropathy as per records, chronic anemia (baseline hemoglobin 12- 13), chronic thrombocytopenia, chronic back pain secondary to compression fractures, mood disorder, OCD as per records, ongoing tobacco abuse. Recent confinement April 2024 for UGIB presenting as hematemesis. EGD showed grade 1 esophageal varices and portal hypertensive gastropathy. No active bleeding noted. Patient discharged on 1 month prednisone course for alcoholic hepatitis and nadolol. Patient started drinking again 6 weeks after discharge from the hospital. Mother cites depression as reason. Family unaware of suicidality. Patient trying to cut down on drinking with help of family over the last few days. Sudden onset of hematemesis last night without abdominal pain as per family. No OTC NSAID intake. Patient brought to the ER for evaluation. IV Protonix, octreotide, ceftriaxone, and Ativan administration at the ER. Lowest SBP of 90s documented at the ER. 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 Admission Exam Per Admitting Provider Physical Exam: GENERAL: Sedated, no respiratory distress SKIN: Pallor, warm HEENT: Pale palpebral conjunctivae, no ptosis, dry buccal mucosa NECK : Supple, no tenderness CHEST : CTA, no tenderness HEART : RRR, no obvious murmurs ABDOMEN: Some distention, no tenderness EXTREMITIES : No LE swelling/tenderness, no other conspicuous deformities noted NEUROLOGIC : Sedated, no facial asymmetry, gait and stance not assessed Principal Diagnosis Acute upper GI bleed secondary to esophageal varices, status post EGD and banding of 3 esophageal varices, alcohol abuse Discharge Exam Sitting at the edge of the bed without any acute distress Constitutional well developed and well nourished; not ill appearing Eyes PERRL, conjunctivae normal, anicteric sclerae ENMT external ear and nose normal, oropharynx normal Neck trachea midline, no thyromegaly Respiratory no respiratory distress Auscultation: lungs clear to auscultation bilaterally Cardiovascular Rate/Rhythm: regular rate and regular rhythm; not tachycardic Heart Sounds: normal S1 and normal S2; no murmur Extremities: no edema Gastrointestinal (Abdomen) Inspection/Auscultation: normal bowel sounds; abdomen not distended Percussion/Palpation: abdomen soft; abdomen nontender Neurologic normal touch/pain/proprioception and moves all extremities; no focal motor deficits Lymphatic no cervical or axillary lymphadenopathy Discharge Data Allergies Allergy/AdvReac Type Severity Reaction Status Date / Time No Known Allergies Allergy Verified 04/22/24 14:24 Consultations 07/04/24 05:24 ED Decision to Admit Stat 07/04/24 05:39 Consult Gastroenterology Routine 07/04/24 09:00 Consult Manager Combination Routine Procedures Performed Operation Date: 07/04/24 08:00 Actual Procedures p EGD Banding of Varices(Not Applicable) - Everett Ayon MD Hospital Course (1) Acute upper gastrointestinal bleeding: (2) Alcoholic liver disease: (3) Transaminitis: (4) Esophageal varices: Plan 33-year-old male with PMH of alcoholic cirrhosis, esophageal varices, portal hypertensive gastropathy, chronic anemia [baseline hemoglobin 12-13], chronic thrombocytopenia, chronic back pain secondary to compression fractures, mood disorder, OCD, ongoing tobacco abuse who was brought in with complaint of sudden onset of hematemesis the night prior to arrival without any abdominal pain per family. Patient has a drinking problem and he started drinking 6 weeks after di scharge from the hospital in April 2024 when he was admitted for hematemesis/alcohol intoxication. In the ED he was noted to have large hematemesis and his blood pressure dropped, hence he was intubated for airway protection for EGD. He is being managed for the following: Upper GI bleed, likely variceal bleed Transient hypotension History of esophageal varices and portal gastropathy and alcoholic cirrhosis Required INTUBATION on Admission Patient presents with complaint of sudden onset of hematemesis, noted to have profuse hematemesis in the ED with hypotension. Patient was intubated in the ED for airway protection for EGD. Because of hypotension and tachycardia and large hematemesis in the ED, patient received 1 unit PRBC and 1 unit platelet in the ED. Patient extubated 5/4 AM, at risk of severe withdrawal Continue with PPI drip, prophylactic antibiotic [plan atb for 5days] Appreciate GI input and recommendation GI on board, status post EGD 07/04/2024 - - grade 3 esophageal varices banded. recs c/w iv ppi/octre/atb. will need a follow-up EGD for secondary prophylaxis with repeat banding in 6 to 8 weeks. Admitting hemoglobin of 11.8, monitor H&H. Patient received 2 unit PRBC and 1 unit platelets so far. Hb 9 currently, adv diet per GI recs, and ensure HnH stability. Hemoglobin remains stable at 9.7 today Alcohol abuse Elevated risks of alcohol withdrawal Hypokalemia: secondary to emesis, monitor and replete. 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 Continue with THO S protocol, DT Precautions. No signs and or symptoms of withdrawal He is ambulating in the hallway without any problem He will be discharged home this afternoon and he will have follow-up with alcohol Anonymous group Refused to go to inpatient rehab Possible UTI: UA suggestive of UTI, patient on antibiotic as above. Alcoholic hepatitis: poor prognosis as per computed Maddrey's DF score of 32.7 points at presentation. f/u w/ childcare director on dc. Other chronic medical conditions: Continue with/resume home meds as when able. chronic thrombocytopenia mood disorder, patient depressed as per family but not suicidal hx OCD as per records ongoing tobacco abuse: Nicotine patch as needed DVT prophylaxis. SCDs re: GI bleed Full code Patient partner Mr. Leydi Meng, contact #[phone]. Text document was generated using [employer] voice recognition software. It may contain grammatical or spelling errors. Kindly contact undersigned for clarification of any documentation item in question. Total Time Total Time Spent Total Time Spent (In Minutes): 35 minutes Discharge Plan Discharge Items Patient Disposition: Home - Self-Care Reason For Visit: UGIB Discharge Diagnosis: Acute upper GI bleed secondary to esophageal varices, status post EGD and banding of 3 esophageal varices, alcohol abuse Condition on Discharge: Good Activity: Resume your previous activity Non-emergency contact: Primary Care Provider Call non-emergency contact if: you have any medication questions and your symptoms worsen Follow-up/Referrals: Tami Upton MD [Primary Care Provider] - (Date & Time 07/13/2024 9:00 AM Provider: Mercedes Black PA-C [facility], [facility] Diet: Regular Addtl Attending Provider Instructions: Please take precautions to avoid falls Strongly advised to quit drinking Strongly advised to have follow-up appointment with alcohol Anonymous group Take your medications as advised and avoid any aspirin and/or NSAIDs Please keep appointments with your healthcare provider- he will need to have a follow-up with GI in about 6 to 8 weeks Pending Studies at Discharge: No Stand-Alone Forms: My [facility], Smoking Cessation Medications and DC Order Prescriptions: New pantoprazole [Protonix] 40 mg tablet,delayed release (DR/EC) 40 mg PO BID Qty: 60 0RF folic acid 1 mg tablet 1,000 mcg PO DAILY Qty: 30 0RF thiamine HCl (vitamin B1) 100 mg tablet 100 mg PO DAILY Qty: 30 0RF multivitamin Tablet 1 tab PO DAILY Qty: 30 0RF Continued paliperidone 9 mg tablet extended release 24 hr 9 mg PO QAM furosemide 40 mg tablet 40 mg PO BID spironolactone 25 mg tablet 25 mg PO QAM gabapentin 300 mg capsule 300 mg PO UD Rx Instructions: take 1 capsule in the AM and take 2 capsules in the PM buspirone 5 mg tablet 5 mg PO TID PRN (Reason: Anxiety) Phospha 250 Neutral 250 mg Tablet 2 tab PO QID Qty: 8 0RF pantoprazole 40 mg tablet,delayed release (DR/EC) 40 mg PO BID Qty: 60 0RF nadolol 40 mg tablet 40 mg PO QAM Qty: 30 0RF trazodone 50 mg tablet 50 mg PO HS PRN (Reason: insomnia) Qty: 30 0RF Discharge Orders: Discharge Order (Routine); Ordered 07/08/24 Ordered By: Herson Linton/Other Patient Handouts: Alcoholism and Family History, Social Drinking vs Problem Drinking, Tests for Liver Disease, Esophageal Varices, Esophageal Ulcer, Alcohol Abuse Life After Combat, Treating Cirrhosis, Understanding Cirrhosis, Treating Gastritis, Understanding Gastritis, Alcoholism Myths and Facts, Alcoholism Resources, Alcoholism: Getting Help, Alcohol Addiction, Signs of Addiction: Social Use, Alcohol Withdrawal: What to Expect, Addiction: Getting Help, Addiction Tx Options, Recovering from Addiction, Addiction Recovery Counseling, Addiction Recovery Relapse, Cirrhosis of Liver Dc, Medicines for Heart Disease, ED Alcohol Withdrawal Seizure, ED Alcohol Withdrawal, ED Cirrhosis, ED Hepatitis Unk Cause, ED Upper GI Bleeding (Stable), ED Gastritis Ulcer No Abx Admission Data Admit Date/Time: 07/04/24 05:36 Attending Provider: Herson Dyer Admit Provider: Gavin Deutsch Primary Care Provider: Tami Upton Other Providers: Gavin Deutsch; Everett Ayon I; Danial Chavarria; Courtney Cho Other Interventions: Discharge Summary Assessment (RN) Last Done: 07/08/24 13:36
== END 2024-07-08 15:00 | disposition home or self-care (01) | DRG 369 ==
LOC: ED 03:14 → SUATTDRO 05:36 → 1E 05:36 → 2S 07-07 19:16

== ENCOUNTER 2024-08-23 20:43 | Observation (INO) ==
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
[2024-08-23 21:22] LABS: Alanine Aminotransferase 119 U/L (7-52); Albumin Globulin Ratio 1.1 (0.9-2); Alkaline Phosphatase 108 U/L (34-104); Anion Gap 15 (3-11); Aspartate Aminotransferase 308 U/L (13-39); BUN Creatinine Ratio 15.2 (10-20); Bilirubin,Total 3.9 mg/dl (0.2-1.0); Blood Urea Nitrogen 7 mg/dl (6-23); Calcium 8.7 mg/dl (8.6-10.3); Carbon Dioxide 23 mmol/L (21-32); Chloride 100 mmol/L (98-107); Creatine Kinase 134 U/L (30-223); Globulin 3.8 gm/dl (2.5-4.0); Glucose 109 mg/dl (70-99(Fasting)); Lipase 225 U/L (11-82); Magnesium 1.9 mg/dl (1.7-2.4); Potassium 3.4 mmol/L (3.5-5.1); Sodium 138 mmol/L (136-145); Total Protein 7.8 gm/dl (6.0-8.3)
[2024-08-23 21:28] LABS: Troponin I High Sensitivity 11.4 pg/ml (0-20)
[2024-08-23 21:37] LABS: Thyroid Stimulating Hormone 0.461 uIu/ml (0.300-4.500)
[2024-08-23 21:42] LABS: Basophils # (auto) 0.04 K/uL (0.00-0.20); Basophils % (auto) 0.8 %; Eosinophils # (auto) 0.09 K/uL (0.00-0.50); Eosinophils % (auto) 1.8 %; Hemoglobin 11.8 g/dl (14.0-18.0); Immature Granulocytes # (auto) 0.02 K/uL (0.01-0.20); Immature Granulocytes % (auto) 0.4 %; Lymphocytes # (auto) 1.36 K/uL (1.20-3.40); Mean Corpuscular Hemoglobin 29.4 pg (25.0-34.0); Mean Corpuscular Hgb Conc 33.7 g/dL (32.0-36.0); Mean Corpuscular Volume 87.3 fL (80.0-100.0); Monocytes # (auto) 0.33 K/uL (0.11-0.59); Monocytes % (auto) 6.5 %; Neutrophils % (auto) 63.5 %; Platelet Count 59 K/uL (130-400); RDW Coefficient of Variation 17.4 % (11.5-14.5); RDW Standard Deviation 55.1 fL (36.4-46.3); Red Blood Count 4.01 M/uL (4.70-6.10); White Blood Count 5.04 K/ul (4.8-10.8)
[2024-08-23 21:48] LABS: INR 1.4 (0.9-1.1); Partial Thromboplastin Ratio 1.2; Partial Thromboplastin Time 32 Seconds (21-31); Prothrombin Time 15.1 Seconds (9.0-12.0)
[2024-08-23 21:53] LABS: Appearance Urine Clear (Clear); Bilirubin Urine Negative (Negative); Blood Urine Negative (Negative); Color Urine Yellow; Glucose Urine UA Negative (Negative); Ketones Urine 1+ (Negative); Leukocyte Esterase Urine Negative (Negative); Nitrite Urine Negative (Negative); Protein Urine Negative (Negative); Specific Gravity Urine 1.009 (1.000-1.030); Urobilinogen Urine Positive (Negative)
--- NOTE | 2024-08-23 22:33 | CT Scan Report ---
Exam(s): CT HEAD Without Contrast EXAM: CT Head Without Intravenous Contrast CLINICAL HISTORY: Dizzy. TECHNIQUE: Axial computed tomography images of the head/brain without intravenous contrast. CTDI is 37.61 mGy and DLP is 703.85 mGy-cm. Automated exposure control was utilized for the study. A dose lowering technique was utilized adhering to the principles of ALARA. COMPARISON: No relevant prior studies available. FINDINGS: Brain: Ventricles and sulci are normal in size and configuration for age. No acute stroke. No acute hemorrhage. No abnormal extra-axial fluid collection. Ventricles: No hydrocephalus. No midline shift. Bones/joints: Unremarkable. No acute fracture. Soft tissues: Unremarkable. Sinuses: Unremarkable as visualized. No acute sinusitis. IMPRESSION: No acute abnormality. Electronically signed by: Jose R Dennison M.D. 08/23/24 22:32 PM
--- NOTE | 2024-08-23 23:21 | XRay Report ---
Exam(s): XR CXR 1 VIEW EXAM: XR Chest, 1 View CLINICAL HISTORY: Dizzy. TECHNIQUE: Frontal view of the chest. COMPARISON: 08/13/2024 FINDINGS: Lungs: No infiltrate. No atelectasis. No CHF. Pleural space: No pleural effusion. No pneumothorax. Heart: Unremarkable. No cardiomegaly. Mediastinum: Unremarkable. Normal mediastinal contour. Bones/joints: Unremarkable. No acute fracture. IMPRESSION: No acute abnormality. Electronically signed by: Jose R Dennison M.D. 08/23/24 23:20 PM
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
[2024-08-24 06:24] LABS: Basophils # (auto) 0.05 K/uL (0.00-0.20); Hematocrit (blood only) 32.7 % (42.0-52.0); Hemoglobin 10.7 g/dl (14.0-18.0); Immature Granulocytes # (auto) 0.02 K/uL (0.01-0.20); Immature Granulocytes % (auto) 0.4 %; Lymphocytes # (auto) 2.03 K/uL (1.20-3.40); Mean Corpuscular Hemoglobin 28.8 pg (25.0-34.0); Mean Corpuscular Hgb Conc 32.7 g/dL (32.0-36.0); Mean Corpuscular Volume 88.1 fL (80.0-100.0); Mean Platelet Volume 9.3 fL (9.4-12.4); Monocytes # (auto) 0.32 K/uL (0.11-0.59); Monocytes % (auto) 6.5 %; Neutrophils # (auto) 2.43 K/uL (1.40-6.50); Neutrophils % (auto) 49.1 %; Platelet Count 43 K/uL (130-400); RDW Coefficient of Variation 17.5 % (11.5-14.5); RDW Standard Deviation 55.8 fL (36.4-46.3); Red Blood Count 3.71 M/uL (4.70-6.10); White Blood Count 4.95 K/ul (4.8-10.8)
[2024-08-24 06:46] LABS: Albumin Globulin Ratio 1.2 (0.9-2); Albumin Level 3.8 gm/dl (3.4-5.0); Bilirubin,Total 3.4 mg/dl (0.2-1.0); Creatinine Clr Calc Pharmacy 263.6 ml/min; Globulin 3.1 gm/dl (2.5-4.0); Potassium 3.9 mmol/L (3.5-5.1); Total Protein 6.9 gm/dl (6.0-8.3)
[2024-08-24 06:51] LABS: INR 1.5 (0.9-1.1); Prothrombin Time 15.8 Seconds (9.0-12.0)
--- NOTE | 2024-08-24 07:35 | Communication Note ---
Date of Service: August 24, 2024 Patient admitted for alcohol intoxication and monitoring for alcohol withdrawal. He is comfortable; not in distress. He is alert oriented x 3; no tremors, anxiety or vaccinations. Continue alcohol withdrawal protocol. He reports that he wants to go home later today. Physical examination; Constitutional: Alert oriented x 3; not in distress. Respiratory: Bilateral vesicular breath sound Cardiovascular: RRR, no murmur, no edema Vessels: no JVD or carotid bruit Chest: normal inspection of chest Abdomen: Slightly distended, nontender. Musculoskeletal: no cyanosis or clubbing, extremities motor strength 5/5 Skin: no rashes, warm and dry normal turgor Neurologic: PERRL, EOMI, accommodation nl, no face palsy, no dysarthria CN's II- XI intact bilaterally and moves all extremities Psychiatric: A+Ox3, euthymic affect
[2024-08-24 07:46] VITALS: TEMP 97.9
[2024-08-24 11:46] VITALS: BP 123/71; PULSE 71; RESP 16; O2SAT 94
--- NOTE | 2024-08-24 13:10 | Discharge Summary ---
Date of Service August 24, 2024 Admission HPI Per Admitting Provider History obtained from patient and records. Medical history significant for alcoholic cirrhosis, esophageal varices, portal hypertensive gastropathy as per records, chronic anemia (baseline hemoglobin 11), chronic thrombocytopenia, chronic back pain secondary to compression fractures, mood disorder, OCD as per records, ongoing tobacco abuse. Recent confinement last month for acute UGIB secondary to esophageal varices status post intubation. EGD showed grade 3 esophageal varices status post banding. Outpatient follow-up with [facility] GI organic chemistry teacher recommended, follow-up EGD with secondary prophylaxis with repeat banding in 6 to 8 weeks. Patient still consuming alcohol upon discharge from the hospital. Recent ER visit last week for hematochezia attributed to external hemorrhoids. Patient discharged home. Patient trying to cut down on alcohol intake. He woke up not feeling well yesterday. Headache with dizziness symptoms. SOB symptoms attributed to withdrawal. No chest pain. Usual abdominal pain with persistent rectal bleed. No coffee-ground emesis episode except from 3 days ago. Patient consulted ER for evaluation. Medical History as above 2024 EGD showed grade 3 esophageal varices lower and middle third of the esophagus. Red blood gastric fundus. Normal duodenum 2014 colonoscopy showed internal hemorrhoids Surgical History : Tonsillectomy/adenoidectomy, myringotomy Family History : Alcoholism, bronchial asthma Personal/Social history : 1/2 pack daily, alcohol abuse, currently unemployed Admission Exam Per Admitting Provider GENERAL: Slightly restless, no respiratory distress SKIN: Pallor, warm HEENT: Pale palpebral conjunctivae, no ptosis, dry buccal mucosa NECK : Supple, no tenderness CHEST : CTA, no tenderness HEART : RRR, no obvious murmurs ABDOMEN: Some distention, no tenderness EXTREMITIES : No LE swelling/tenderness, no other conspicuous deformities noted NEUROLOGIC : Coherent, no facial asymmetry, gait and stance not assessed Principal Diagnosis Alcohol intoxication Discharge Exam Constitutional: Alert oriented x 3; not in distress. Respiratory: Bilateral vesicular breath sound Cardiovascular: RRR, no murmur, no edema Vessels: no JVD or carotid bruit Chest: normal inspection of chest Abdomen: Slightly distended, nontender. Musculoskeletal: no cyanosis or clubbing, extremities motor strength 5/5 Skin: no rashes, warm and dry normal turgor Neurologic: PERRL, EOMI, accommodation nl, no face palsy, no dysarthria CN's II- XI intact bilaterally and moves all extremities Psychiatric: A+Ox3, euthymic affect Discharge Data Allergies Allergy/AdvReac Type Severity Reaction Status Date / Time No Known Allergies Allergy Verified 08/23/24 22:19 Consultations 08/24/24 00:19 ED Decision to Admit Stat Ordered Studies 08/23/24 21:10 CT head/brain wo con Stat Hospital Course (1) Alcohol dependence: Plan Patient presented to the hospital with alcohol intoxication with blood alcohol level of 419.1 Mg per DL. He was admitted to medical floor for possible alcohol withdrawal. Patient was monitored overnight; he did not have any signs or symptoms of alcohol withdrawal. He was alert oriented times x 3; no nausea, vomiting, abdominal pain. He did not have any hallucination, tremors. He reported that he wanted to go home. Patient was discharged home with instruction to follow-up with PCP. Alcohol abstinence was strongly encouraged again. Please note the above document was generated using voice recognition software. It may contain grammatical, syntax or spelling errors. Any formal questions or concerns about the content, text or information contained within the body of this dictation should be directly addressed to the provider for clarification Total Time Total Time Spent Total Time Spent (In Minutes): 45 Total Time Includes: Examination of the Patient, Discharge Planning, Medication Reconciliation, Communication With Other Providers and Other Discharge Plan Discharge Items Patient Disposition: Home - Self-Care Reason For Visit: ETOH WITHDRAWAL Discharge Diagnosis: Alcohol use disorder Condition on Discharge: Fair Activity: Resume your previous activity Non-emergency contact: Primary Care Provider Call non-emergency contact if: you have any medication questions and your symptoms worsen Follow-up/Referrals: Tami Upton MD [Primary Care Provider] - (Date & Time 08/28/2024 9:00 AM Provider: Mercedes Black PA-C [facility]) Diet: Regular Addtl Attending Provider Instructions: You are admitted to the hospital with alcohol intoxication. Please continue to try to abstain alcohol use in the future. Follow-up with her primary care doctor Pending Studies at Discharge: No Stand-Alone Forms: My Graph[employer], Smoking Cessation Medications and DC Order Prescriptions: Continued pantoprazole [Protonix] 40 mg tablet,delayed release (DR/EC) 40 mg PO BID Qty: 60 0RF thiamine HCl (vitamin B1) 100 mg tablet 100 mg PO DAILY Qty: 30 0RF multivitamin Tablet 1 tab PO DAILY Qty: 30 0RF hydrocortisone [Preparation H Hydrocortisone] 1 % cream 1 applic topical BID PRN (Reason: Rectal irritation/bleeding) Qty: 28.4 0RF quetiapine 25 mg tablet 25 mg PO HS gabapentin 600 mg tablet 600 mg PO TID folic acid 1 mg tablet 1 mg PO DAILY furosemide 40 mg tablet 40 mg PO BID spironolactone 25 mg tablet 25 mg PO QAM buspirone 5 mg tablet 5 mg PO TID PRN (Reason: Anxiety) Phospha 250 Neutral 250 mg Tablet 2 tab PO QID Qty: 8 0RF nadolol 40 mg tablet 40 mg PO QAM Qty: 30 0RF trazodone 50 mg tablet 50 mg PO HS PRN (Reason: insomnia) Qty: 30 0RF Discharge Orders: Discharge Order (Routine); Ordered 08/24/24 Ordered By: Tyler Hung Admission Data Admit Date/Time: 08/24/24 00:26 Attending Provider: Tyler Hung Admit Provider: Gavin Deutsch Primary Care Provider: Tami Upton Other Providers: Gavin Deutsch
--- NOTE | 2024-08-26 12:47 | Electrocardiogram Report ---
Test Reason : Blood Pressure : */* mmHG Vent. Rate : 120 BPM Atrial Rate : 120 BPM P-R Int : 146 ms QRS Dur : 86 ms QT Int : 358 ms P-R-T Axes : 71 85 40 degrees QTcB Int : 505 [address] N[address] abnormality Abnormal ECG When compared with ECG of 13-Aug-2024 21:11, Vent. rate has increased by 45 bpm T wave amplitude has decreased in Anterior leads Confirmed by Wallace Everett ([id number]) on 08/26/2024 12:47:29 PM Referred By: REFERRED SELF Confirmed By: Wallace Everett
== END 2024-08-24 14:20 | disposition home or self-care (01) | DRG 897 ==
LOC: ED 20:43 → INTOOBSV 08-24 00:26 → 2N 08-24 00:26

== ENCOUNTER 2024-10-31 02:19 | Inpatient (IN) ==
--- NOTE | 2024-10-31 02:35 | Emergency Department Note ---
History of Present Illness General Chief complaint: Rectal Bleed Stated complaint: BLACK, TARRY STOOL, ABD PAIN Time Seen by Provider: 10/31/24 02:21 History of Present Illness Maximum Pain Intensity: 8 This 34-year-old male with a PMH alcoholic cirrhosis, esophageal varices, portal hypertensive gastropathy as per records, chronic anemia (baseline hemoglobin 11), chronic thrombocytopenia, chronic back pain secondary to compression fractures, mood disorder, OCD as per records, ongoing tobacco abuse presents to the ER complaining of nausea, abdominal discomfort and black stool for the past few days to threw up yesterday and had some blood in it. Patient states he has not had alcohol for the past week as he is try to start a family with his partner. Patient denies chest pain, dyspnea, fever, chills. He did get a blood transfusion in July. Home Medications Medication Instructions Recorded Confirmed Type buspirone 5 mg tablet 5 mg PO TID PRN Anxiety 04/21/24 10/31/24 History furosemide 40 mg tablet 40 mg PO BID 04/21/24 10/31/24 History spironolactone 25 mg tablet 25 mg PO QAM 04/21/24 10/31/24 History nadolol 40 mg tablet 40 mg PO QAM #30 tabs 04/23/24 10/31/24 Rx trazodone 50 mg tablet 50 mg PO HS PRN insomnia #30 tabs 04/23/24 10/31/24 Rx multivitamin 1 tab PO DAILY #30 tabs 07/08/24 10/31/24 Rx pantoprazole 40 mg tablet,delayed 40 mg PO BID #60 tabs 07/08/24 10/31/24 Rx release (Protonix) thiamine HCl (vitamin B1) 100 mg 100 mg PO DAILY #30 tabs 07/08/24 10/31/24 Rx tablet hydrocortisone 1 % topical cream 1 applic topical BID PRN Rectal 08/17/24 10/31/24 Rx (Preparation H Hydrocortisone) irritation/bleeding #28.4 grams folic acid 1 mg tablet 1 mg PO DAILY 08/23/24 10/31/24 History gabapentin 600 mg tablet 600 mg PO TID 08/23/24 10/31/24 History quetiapine 25 mg tablet 25 mg PO HS 08/23/24 10/31/24 History Allergies Allergy/AdvReac Type Severity Reaction Status Date / Time No Known Allergies Allergy Verified 09/30/24 01:06 Past Med/Surg History Problem List (Updated 10/31/24 @ 03:58 by Farzaneh Teixeira PA-C) Anemia (Acute) Type 2 acute myocardial infarction (Acute) Thrombocytopenia (Acute) Prolonged QT interval (Acute) Hematemesis (Acute) Alcohol intoxication (Acute) Acute upper gastrointestinal bleeding (Acute) Alcoholic liver disease Hyperbilirubinemia Transaminitis (Acute) Alcoholic cirrhosis (Acute) Esophageal varices (Acute) Upper gastrointestinal hemorrhage (Acute) Alcoholic gastritis with bleeding Esophageal ulceration Portal hypertensive gastropathy Gastrointestinal hemorrhage with hematemesis Alcohol withdrawal (Acute) Cirrhosis Coffee ground emesis (Acute) Alcohol abuse (Acute) Alcohol withdrawal syndrome (Acute) Alcohol use disorder, severe, dependence (Acute) Alcohol intoxication (Acute) GIB (gastrointestinal bleeding) (Acute) Alcoholic hepatitis Acute alcohol abuse (Acute) Pancytopenia (Acute) Medical History Alcoholic cirrhosis HTN (hypertension) Thrombocytopenia OCD (obsessive compulsive disorder) Insomnia Bipolar 1 disorder Tobacco abuse Alcohol dependence Compression fracture of T12 vertebra Compression fracture of L1 lumbar vertebra Hepatosplenomegaly Mixed hyperlipidemia Alcohol abuse Surgical History Hx of tonsillectomy Hx of colonoscopy 2015, WNL, internal hemorrhoids Social History Smoking Status: Current every day smoker Tobacco Type: Cigarettes and E-cigarettes / Vaping Cigarettes Per Day: 1/2ppd; Second Hand Exposure: Yes; Do You Dip or Chew Tobacco: No; Hx Alcohol Use: Yes Alcohol type: hard liquor Hx Substance Use: Yes Last Used Substance: Unknown Last Used Substance Other:: 10 yrs ago Substance Use Type Other:: ectasy, mushrooms, LSD x10 yrs ago Preferred Language: Maltese Communication Ability: Effective Barrel Rifler Button Required: No Beliefs That Will Affect Care: None Current Living Situation: Significant Other Feels Safe at Home: Yes Assistive Devices: None Review of Systems A total of 10 systems reviewed and were otherwise negative Physical Exam Vital Signs Vital Signs - 24 hr 10/31/24 02:22 10/31/24 02:46 10/31/24 02:59 Temperature 36.4 C L Temperature Source Temporal Artery Scan Pulse Rate 130 H 86 Pulse Rate [Apical] 80 Pulse Rhythm Pulse Rhythm [Apical] Regular Pulse Strength [Apical] Normal Respiratory Rate 14 Respiratory Effort / Characteristics Non-Labored Spontaneous Respiratory Depth Normal Respiratory Pattern Regular Blood Pressure 129/83 Blood Pressure [Right Arm] 144/76 H Blood Pressure Mean 98 Blood Pressure Mean [Right Arm] 98 Blood Pressure Position Blood Pressure Position [Right Arm] Lying Pulse Oximetry 98 98 Oxygen Delivery Method Room Air Room Air Sepsis Recent Fever Within 48 Hours No Sepsis New/Unexplained Change in Mental Status No Sepsis Action Taken by Nursing No Action Required 10/31/24 02:59 10/31/24 04:19 10/31/24 04:41 Temperature 37.3 C Temperature Source Oral Pulse Rate 80 90 Pulse Rate [Apical] 85 Pulse Rhythm Regular Pulse Rhythm [Apical] Pulse Strength [Apical] Respiratory Rate 14 15 15 Respiratory Effort / Characteristics Non-Labored Spontaneous Respiratory Depth Normal Respiratory Pattern Regular Blood Pressure 142/78 H Blood Pressure [Right Arm] 145/87 H Blood Pressure Mean 99 Blood Pressure Mean [Right Arm] 106 Blood Pressure Position Right Lateral Blood Pressure Position [Right Arm] Semi-fowlers Pulse Oximetry 99 100 100 Oxygen Delivery Method Room Air Room Air Sepsis Recent Fever Within 48 Hours Sepsis New/Unexplained Change in Mental Status Sepsis Action Taken by Nursing 10/31/24 04:57 Temperature 36.9 C Temperature Source Oral Pulse Rate 101 H Pulse Rate [Apical] Pulse Rhythm Pulse Rhythm [Apical] Pulse Strength [Apical] Respiratory Rate 18 Respiratory Effort / Characteristics Respiratory Depth Respiratory Pattern Blood Pressure 153/103 H Blood Pressure [Right Arm] Blood Pressure Mean 119 Blood Pressure Mean [Right Arm] Blood Pressure Position Right Lateral Blood Pressure Position [Right Arm] Pulse Oximetry 100 Oxygen Delivery Method Sepsis Recent Fever Within 48 Hours Sepsis New/Unexplained Change in Mental Status Sepsis Action Taken by Nursing VITALS: Vitals are noted on the nurse's note and reviewed by myself. Vital signs stable. GENERAL: Male jaundiced appearing, in no acute distress, nondiaphoretic, well- developed well-nourished. SKIN: Capillary reflex less than 2 seconds. HEENT: Normocephalic. PERRLA. EOMI. Nares patent. Conjunctiva with icterus, mucous membranes moist. Neck is supple without nuchal rigidity. HEART: Regular rate and rhythm LUNGS: Clear to auscultation bilaterally without wheezes, rales or rhonchi. No retractions or accessory muscle use. ABDOMEN: Positive bowel sounds x 4. Normal tympanic percussion. Soft, mild diffuse tenderness, without masses or organomegaly. Valdes sign negative. No guarding or rebound tenderness. no CVA tenderness MUSCULOSKELETAL: No gross musculoskeletal defects. NEURO: Patient was alert and oriented to person place and time. No focal neurological deficits. Course Administered Medications Discontinued Medications Sodium Chloride (Nss) 1,000 mls @ 999 mls/hr IV .Q1H1M PUJA Stop: 10/31/24 03:30 Last Infusion: 10/31/24 04:26 Dose: Infused Documented By: Admin: 10/31/24 02:53 Dose: 999 mls/hr Documented By: khoa Famotidine (Pepcid 20mg Iv Push) 20 mg in 5 mls @ 2.5 mls/min IV NOW STA Stop: 10/31/24 02:29 Last Admin: 10/31/24 02:52 Dose: 2.5 mls/min Documented By: khoa Pantoprazole Sodium 80 mg/ (Dextrose) 120 mls @ 480 mls/hr IV ONE STA Stop: 10/31/24 02:42 Last Infusion: 10/31/24 04:26 Dose: Infused Documented By: Admin: 10/31/24 03:06 Dose: 480 mls/hr Documented By: khoa Ioversol (Optiray 320 100ml) 94 ml IV ONCE ONE Stop: 10/31/24 03:11 Last Admin: 10/31/24 03:11 Dose: 94 ml Documented By: ANA Ondansetron HCl (Ondansetron Inj 2 Mg/Ml 2 Ml Vial) 4 mg IV ONE STA Stop: 10/31/24 02:29 Last Admin: 10/31/24 02:52 Dose: 4 mg Documented By: khoa Critical Care Time Critical Care Time: Yes Total Critical Care Time: 35 I have personally spent 35 minutes of critical care time in the direct management of this patient. This includes bedside care, interpretation of diagnostic studies, and testing, discussion with consultants, patient, and family members, and other required patient management activities. This 35 minutes is in excess of all separately billable procedures. Medical Decision Making Medical Records Attestation: I reviewed the patient's medical records. Home Medications Current Medication List: was personally reviewed by me Laboratory Data Attestation: I reviewed the patient's lab results. 10/31/24 02:28 10/31/24 02:28 Lab Results 10/31/24 10/31/24 Range/Units 02:28 03:19 WBC 8.57 (4.8-10.8) K/ul RBC 3.07 L (4.70-6.10) M/uL Hgb 7.7 L (14.0-18.0) g/dl Hct 24.7 L (42.0-52.0) % MCV 80.5 (80.0-100.0) fL MCH 25.1 (25.0-34.0) pg MCHC 31.2 L (32.0-36.0) g/dL RDW Std Deviation 54.5 H (36.4-46.3) fL RDW Coeff of Joe 19.2 H (11.5-14.5) % Plt Count 127 L (130-400) K/uL MPV 9.7 (9.4-12.4) fL Immature Gran % (Auto) 0.9 % Neut % (Auto) 50.4 % Lymph % (Auto) 37.0 % Ector % (Auto) 7.7 % Eos % (Auto) 3.2 % Baso % (Auto) 0.8 % Neut # (Auto) 4.32 (1.40-6.50) K/uL Lymph # (Auto) 3.17 (1.20-3.40) K/uL Ector # (Auto) 0.66 H (0.11-0.59) K/uL Eos # (Auto) 0.27 (0.00-0.50) K/uL Baso # (Auto) 0.07 (0.00-0.20) K/uL Immature Gran # (Auto) 0.08 (0.01-0.20) K/uL Polychromasia 2+ Hypochromasia Present Target Cells 1+ PT 16.8 H (9.0-12.0) Seconds INR 1.6 H (0.9-1.1) APTT 28 (21-31) Seconds PTT Ratio 1.0 Sodium 134 L (136-145) mmol/L Potassium 3.7 (3.5-5.1) mmol/L Chloride 106 (98-107) mmol/L Carbon Dioxide 22 (21-32) mmol/L Anion Gap 6 (3-11) BUN 20 (6-23) mg/dl Creatinine 0.52 L (0.6-1.4) mg/dl Est Cr Clr Drug Dosing Not Reportable eGFR 133.97 BUN/Creatinine Ratio 38.5 H (10-20) Glucose 110 H (70-99(Fasting)) mg/dl Calcium 9.0 (8.6-10.3) mg/dl Magnesium 1.9 (1.7-2.4) mg/dl Total Bilirubin 3.9 H (0.2-1.0) mg/dl AST 99 H (13-39) U/L ALT 60 H (7-52) U/L Alkaline Phosphatase 79 (34-104) U/L Troponin I High Sens 48.8 H (0-20) pg/ml Total Protein 6.7 (6.0-8.3) gm/dl Albumin 3.6 (3.4-5.0) gm/dl Globulin 3.1 (2.5-4.0) gm/dl Albumin/Globulin Ratio 1.2 (0.9-2) Lipase 74 (11-82) U/L Ethyl Alcohol mg/dL < 10.0 (<10.0) mg/dl Blood Type A Positive Antibody Screen NEGATIVE Crossmatch See Detail Imaging Data Attestation: I personally reviewed and interpreted this imaging study as follows: Radiologist's Impression: Abdomen/Pelvis CT 10/31/24 02:28 EXAM: CT abd pelvis IV con only CLINICAL HISTORY: abd pain, GI bleed TECHNIQUE: Multiple contiguous axial images were obtained from the level of diaphragm to the pubis symphysis. This study was acquired after the IV administration of iodinated contrast material, given the patients indications for the examination. If IV contrast material had not been administered, the likelihood of detecting abnormalities relevant to the patients condition would have been substantially decreased. Coronal and sagittal reformatted images were generated and reviewed to improve anatomic localization and optimize lesion detection. CT scan was performed according to ALARA (as low as reasonable achievable). COMPARISON: 09/29/2024 FINDINGS: The visualized lung bases are clear. ABDOMEN/PELVIS: The liver is normal in size and heterogeneous in attenuation with surface irregularity. No focal liver lesions are seen. There is no intra or extrahepatic biliary ductal dilatation. Hepatic vasculature is patent. Multiple omental collaterals are seen. The gallbladder is well distended with evidence of radiodense calculi within. Still seen mildly bulky pancreatic parenchyma with peripancreatic and mesenteric fat stranding Splenomegaly - unchanged The adrenal glands are unremarkable. The kidneys are normal in size and attenuation. There is no hydronephrosis or perinephric fat stranding. No renal calculi or renal masses are identified. The ureters are normal in caliber and no ureteral calculi are seen. The bladder is normal in contour. Edematous bowel wall thickening of right colon and transverse colon seen - new findings No evidence of bowel obstruction is seen. No features of inflamed appendix Interval reduction of amount of free fluid in abdomen with current study showing mild ascites No adenopathy are seen. The aorta is normal in caliber. No aggressive appearing osseous lesions are identified. Rest unchanged. IMPRESSION: Redemonstration of mild surface irregularity of liver with splenomegaly, omental collaterals and ascites - could represent chronic liver parenchymal disease with portal hypertension, suggest lab correlation Interval reduction of amount of free fluid in abdomen with current study showing mild ascites Still seen mildly bulky pancreatic parenchyma with peripancreatic and mesenteric fat stranding- could represent pancreatitis related changes, suggest lab correlation Uncomplicated cholelithiasis with possible mild reactive wall thickening - unchanged. Edematous bowel wall thickening of right and transverse colon - new findings, represent colitis Electronically signed by Bryon Singh 10-31-2024 05:08 AM MDM Narrative Prior records/ancillary studies reviewed. Triage Nursing notes reviewed. Additional history obtained from the EMS The patient's history was concerning for possible gastrointestinal bleeding. Differential diagnosis: Etiologies such as diverticulosis, AVM, coagulopathy, colitis, inflammatory bowel disease, malignancy, Roz-Barney tear, esophagitis, peptic ulcer disease, variceal bleed, gastritis, epistaxis, fissure, hemorrhoids, as well as others were entertained. Physical exam: As above. The patients vital signs were stable. ER treatment provided: An order was placed for continuous cardiac monitoring. The monitor shows a rate of 60-1 50 with a sinus rhythm per my interpretation. 2 lines, IV fluids, Protonix Pepcid and Zofran were ordered Patient was consented to blood if warranted. Patient was typed and crossmatched for 1 unit On reassessment the patient felt better. Diagnostics interpreted by me: ECG: Ordered for GI bleed EKG: Normal sinus, no acute ST-T wave changes, QTc 525, rate of 94. Impression normal sinus rhythm prolonged QTc independently interpreted by myself The labs Independently Interpreted by myself revealed worsening anemia patient was transfused a unit of blood Type and screen sent Platelets about baseline for the patient. Patient is chronically elevated bilirubin LFTs most likely from alcoholism. Slightly elevated troponin most likely type II from severe anemia Imaging studies: Imaging was reviewed and read by radiology Consultation: A consultation was placed with the hospitalist. The case was discussed and diagnostics were reviewed. The patient was evaluated in the ER for further treatment. This appears to be consistent with GI bleeding and a known alcoholic patient with cirrhosis. Patient was typed and crossmatched for a unit of blood. He is given Protonix and Pepcid on initial evaluation. Medicine was consulted case discussed. He will be evaluated for admission.. By the evaluation outlined above emergent etiologies such as esophageal perforation, epistaxis, malignancy, inflammatory bowel disease, as well as others were deemed relatively unlikely. The pt informed about the findings as listed above. All questions were answered and pleased with the treatment. The chart was completed utilizing [employer] Speech voice recognition software. Grammatical errors, random word insertions, pronoun errors, and incomplete sentences are an occassional consequence of this system due to software limitations, ambient noise, and hardware issues. Any formal questions or concerns about the content, text, or information contained within the body of this dictation should be directly addressed to the physician life science research assistant for clarification. Impression & Plan GIB (gastrointestinal bleeding), Type 2 acute myocardial infarction, Anemia Discharge Plan Visit Data Chief Complaint: Rectal Bleed Stated Complaint: BLACK, TARRY STOOL, ABD PAIN ED Provider: Tigre Escobedo ED Midlevel Provider: Farzaneh Teixeira Discharge Problem: GIB (gastrointestinal bleeding), Type 2 acute myocardial infarction, Anemia Patient Disposition: Admitted As Inpatient Condition: Fair Forms Stand Alone Forms: [facility] [employer] Prescriptions Prescriptions: No Action pantoprazole [Protonix] 40 mg tablet,delayed release (DR/EC) 40 mg PO BID Qty: 60 0RF thiamine HCl (vitamin B1) 100 mg tablet 100 mg PO DAILY Qty: 30 0RF multivitamin Tablet 1 tab PO DAILY Qty: 30 0RF hydrocortisone [Preparation H Hydrocortisone] 1 % cream 1 applic topical BID PRN (Reason: Rectal irritation/bleeding) Qty: 28.4 0RF quetiapine 25 mg tablet 25 mg PO HS gabapentin 600 mg tablet 600 mg PO TID folic acid 1 mg tablet 1 mg PO DAILY furosemide 40 mg tablet 40 mg PO BID spironolactone 25 mg tablet 25 mg PO QAM buspirone 5 mg tablet 5 mg PO TID PRN (Reason: Anxiety) nadolol 40 mg tablet 40 mg PO QAM Qty: 30 0RF trazodone 50 mg tablet 50 mg PO HS PRN (Reason: insomnia) Qty: 30 0RF Referrals Referrals: Tami Upton MD [Primary Care Provider] - Discharge Problem: GIB (gastrointestinal bleeding) Qualifiers: GI bleed type/associated pathology: unspecified gastrointestinal hemorrhage type Qualified Code(s): K92.2 - Gastrointestinal hemorrhage, unspecified
[2024-10-31] MEDS: ONDANSETRON INJ 2 MG/ML 2 ML VIAL IV STA (02:52)
[2024-10-31] MEDS: FAMOTIDINE 20MG IV PUSH 20 MG/5 ML SYR IV STA (02:52)
[2024-10-31] MEDS: SODIUM CHLORIDE 0.9% 1,000 ML IV SCH ×2 (02:53→06:43)
[2024-10-31] MEDS: OPTIRAY 320 100ml IV ONE (03:11)
[2024-10-31 03:24] LABS: Alanine Aminotransferase 60 U/L (7-52); Albumin Globulin Ratio 1.2 (0.9-2); Alkaline Phosphatase 79 U/L (34-104); Anion Gap 6 (3-11); Bilirubin,Total 3.9 mg/dl (0.2-1.0); Blood Urea Nitrogen 20 mg/dl (6-23); Calcium 9.0 mg/dl (8.6-10.3); Carbon Dioxide 22 mmol/L (21-32); Chloride 106 mmol/L (98-107); Globulin 3.1 gm/dl (2.5-4.0); Glucose 110 mg/dl (70-99(Fasting)); Lipase 74 U/L (11-82); Magnesium 1.9 mg/dl (1.7-2.4); Potassium 3.7 mmol/L (3.5-5.1); Sodium 134 mmol/L (136-145); Total Protein 6.7 gm/dl (6.0-8.3)
[2024-10-31 03:31] LABS: Hematocrit (blood only) 24.7 % (42.0-52.0); Hemoglobin 7.7 g/dl (14.0-18.0); Mean Corpuscular Hemoglobin 25.1 pg (25.0-34.0); Mean Corpuscular Volume 80.5 fL (80.0-100.0); Platelet Count 127 K/uL (130-400); RDW Standard Deviation 54.5 fL (36.4-46.3); Red Blood Count 3.07 M/uL (4.70-6.10); White Blood Count 8.57 K/ul (4.8-10.8)
[2024-10-31 03:35] LABS: Hypochromasia Present; Immature Granulocytes # (auto) 0.08 K/uL (0.01-0.20); Immature Granulocytes % (auto) 0.9 %; Polychromasia 2+; Target Cells 1+
[2024-10-31 03:37] LABS: INR 1.6 (0.9-1.1); Partial Thromboplastin Time 28 Seconds (21-31); Prothrombin Time 16.8 Seconds (9.0-12.0)
[2024-10-31] MEDS ORDERED: SODIUM CHLORIDE 0.9% 100 ML IV PRN ×2 (03:38→04:13)
--- NOTE | 2024-10-31 05:08 | CT Scan Report ---
EXAM: CT abd pelvis IV con only CLINICAL HISTORY: abd pain, GI bleed TECHNIQUE: Multiple contiguous axial images were obtained from the level of diaphragm to the pubis symphysis. This study was acquired after the IV administration of iodinated contrast material, given the patients indications for the examination. If IV contrast material had not been administered, the likelihood of detecting abnormalities relevant to the patients condition would have been substantially decreased. Coronal and sagittal reformatted images were generated and reviewed to improve anatomic localization and optimize lesion detection. CT scan was performed according to ALARA (as low as reasonable achievable). COMPARISON: 09/29/2024 FINDINGS: The visualized lung bases are clear. ABDOMEN/PELVIS: The liver is normal in size and heterogeneous in attenuation with surface irregularity. No focal liver lesions are seen. There is no intra or extrahepatic biliary ductal dilatation. Hepatic vasculature is patent. Multiple omental collaterals are seen. The gallbladder is well distended with evidence of radiodense calculi within. Still seen mildly bulky pancreatic parenchyma with peripancreatic and mesenteric fat stranding Splenomegaly - unchanged The adrenal glands are unremarkable. The kidneys are normal in size and attenuation. There is no hydronephrosis or perinephric fat stranding. No renal calculi or renal masses are identified. The ureters are normal in caliber and no ureteral calculi are seen. The bladder is normal in contour. Edematous bowel wall thickening of right colon and transverse colon seen - new findings No evidence of bowel obstruction is seen. No features of inflamed appendix Interval reduction of amount of free fluid in abdomen with current study showing mild ascites No adenopathy are seen. The aorta is normal in caliber. No aggressive appearing osseous lesions are identified. Rest unchanged. IMPRESSION: Redemonstration of mild surface irregularity of liver with splenomegaly, omental collaterals and ascites - could represent chronic liver parenchymal disease with portal hypertension, suggest lab correlation Interval reduction of amount of free fluid in abdomen with current study showing mild ascites Still seen mildly bulky pancreatic parenchyma with peripancreatic and mesenteric fat stranding- could represent pancreatitis related changes, suggest lab correlation Uncomplicated cholelithiasis with possible mild reactive wall thickening - unchanged. Edematous bowel wall thickening of right and transverse colon - new findings, represent colitis Electronically signed by Bryon Singh 10-31-2024 05:08 AM
[2024-10-31] MEDS ORDERED: STAT IV/IM STA ×2 (05:14→06:09)
[2024-10-31] MEDS: OCTREOTIDE ACETATE 50 MCG in SYRINGE 9.5 ML IV STA (05:34)
--- NOTE | 2024-10-31 05:34 | History & Physical Report ---
Date of Service October 31, 2024 Assessment & Plan (1) GI bleed: Plan: 34-year-old male with past medical history significant for hyperlipidemia, esophageal varices in cirrhosis, hypertension, alcoholic cirrhosis of liver without ascites, portal hypertensive gastropathy, chronic midline thoracic back pain, history of tobacco use, insomnia, medical marijuana use, generalized anxiety disorder, acute psychosis bipolar comes because of GI bleed. Patient states last he had an episode of vomiting a few blood clots. After that he developed black stools for last 30 hours which prompted him to come to the ER. He has some abdominal discomfort. Micturating okay. Denies chest pain or shortness of breath. Currently no nausea. No headache. No runny nose or sore throat. Denies cough. Hemodynamics are okay. Patient says he weaned off from alcohol and since last 1 week he is not drinking. Patient had multiple admission for alcoholism and last was in August 2024. In July 2024 he was admitted for upper GI bleed required intubation during that admission. During that admission he had EGD which showed grade 3 esophageal variceal and was banded. GI bleed Comes in because of black stools An episode of vomiting blood clots last History of GI bleed EGD in July 2024 showed grade 3 varices N.p.o., gentle fluids Hemoglobin 7.7 ER ordered 1 unit of PRBC Received IV Protonix bolus Starting on Protonix drip and Sandostatin bolus and drip Closely monitor H&H Closely monitor hemodynamics Telemetry GI consult Alcoholism States did not drink last 1 week Will continue home thiamine and folic acid Alcohol withdrawal protocol with Ativan as needed for now Close monitor Elevated LFTs Bilirubin 3.9 AST 19, ALT 60, alkaline phosphatase 79 chronic elevation Abdominal pain CT scan showing colitis And also possible pancreatitis Lipase is okay GI consulted Will monitor Mild elevation of troponin Mostly demand ischemia Will follow repeat levels Alcoholic liver cirrhosis Portal hypertensive gastropathy Thrombocytopenia with platelets of 127 Holding Lasix and spironolactone Continue home nadolol with holding parameters Getting PRBC and gentle fluids Close monitor for volume overload Generalized anxiety disorder Acute psychosis bipolar disorder hold buspirone as needed for prolonged qtc will hold home Seroquel and trazodone as needed for now r prolonged qtc Prolonged qtc avoid qt prolonging drugs follow repeat ekg. Tobacco abuse Counseling DVT prophylaxis SCDs Disposition Telemetry Full code. History of Present Illness Chief Complaint: GI bleed Primary Care Provider: Tami Upton MD 34-year-old male with past medical history significant for hyperlipidemia, esophageal varices in cirrhosis, hypertension, alcoholic cirrhosis of liver without ascites, portal hypertensive gastropathy, chronic midline thoracic back pain, history of tobacco use, insomnia, medical marijuana use, generalized anxiety disorder, acute psychosis bipolar comes because of GI bleed. Patient states last he had an episode of vomiting a few blood clots. After that he developed black stools for last 30 hours which prompted him to come to the ER. He has some abdominal discomfort. Micturating okay. Denies chest pain or shortness of breath. Currently no nausea. No headache. No runny nose or sore throat. Denies cough. Hemodynamics are okay. Patient says he weaned off from alcohol and since last 1 week he is not drinking. Patient had multiple admission for alcoholism and last was in August 2024. In July 2024 he was admitted for upper GI bleed required intubation during that admission. During that admission he had EGD which showed grade 3 esophageal variceal and was banded. Past medical history. As mentioned above Past surgical history. Colonoscopy. Tonsillectomy and adenoidectomy. Social history. Smokes 0.5 packs a day. History of heavy alcohol use. States not drinking since last 1 week. Smokes marijuana as per [facility] Family history. Brother has alcoholism. Brother has asthma. Brother has drug use. Allergies Allergy/AdvReac Type Severity Reaction Status Date / Time No Known Allergies Allergy Verified 09/30/24 01:06 Home Medications Medication Instructions Recorded Confirmed Type buspirone 5 mg tablet 5 mg PO TID PRN Anxiety 04/21/24 10/31/24 History furosemide 40 mg tablet 40 mg PO BID 04/21/24 10/31/24 History spironolactone 25 mg tablet 25 mg PO QAM 04/21/24 10/31/24 History nadolol 40 mg tablet 40 mg PO QAM #30 tabs 04/23/24 10/31/24 Rx trazodone 50 mg tablet 50 mg PO HS PRN insomnia #30 tabs 04/23/24 10/31/24 Rx multivitamin 1 tab PO DAILY #30 tabs 07/08/24 10/31/24 Rx pantoprazole 40 mg tablet,delayed 40 mg PO BID #60 tabs 07/08/24 10/31/24 Rx release (Protonix) thiamine HCl (vitamin B1) 100 mg 100 mg PO DAILY #30 tabs 07/08/24 10/31/24 Rx tablet hydrocortisone 1 % topical cream 1 applic topical BID PRN Rectal 08/17/24 10/31/24 Rx (Preparation H Hydrocortisone) irritation/bleeding #28.4 grams folic acid 1 mg tablet 1 mg PO DAILY 08/23/24 10/31/24 History gabapentin 600 mg tablet 600 mg PO TID 08/23/24 10/31/24 History quetiapine 25 mg tablet 25 mg PO HS 08/23/24 10/31/24 History Past Med/Surg History Problem List (Updated 10/31/24 @ 05:26 by Estuardo Reese MD) GI bleed Anemia (Acute) Type 2 acute myocardial infarction (Acute) Thrombocytopenia (Acute) Prolonged QT interval (Acute) Hematemesis (Acute) Alcohol intoxication (Acute) Acute upper gastrointestinal bleeding (Acute) Alcoholic liver disease Hyperbilirubinemia Transaminitis (Acute) Alcoholic cirrhosis (Acute) Esophageal varices (Acute) Upper gastrointestinal hemorrhage (Acute) Alcoholic gastritis with bleeding Esophageal ulceration Portal hypertensive gastropathy Gastrointestinal hemorrhage with hematemesis Alcohol withdrawal (Acute) Cirrhosis Coffee ground emesis (Acute) Alcohol abuse (Acute) Alcohol withdrawal syndrome (Acute) Alcohol use disorder, severe, dependence (Acute) Alcohol intoxication (Acute) GIB (gastrointestinal bleeding) (Acute) Alcoholic hepatitis Acute alcohol abuse (Acute) Pancytopenia (Acute) Medical History Alcoholic cirrhosis HTN (hypertension) Thrombocytopenia OCD (obsessive compulsive disorder) Insomnia Bipolar 1 disorder Tobacco abuse Alcohol dependence Compression fracture of T12 vertebra Compression fracture of L1 lumbar vertebra Hepatosplenomegaly Mixed hyperlipidemia Alcohol abuse Surgical History Hx of tonsillectomy Hx of colonoscopy 2015, WNL, internal hemorrhoids Social History Smoking Status: Current every day smoker Tobacco Type: Cigarettes and E-cigarettes / Vaping Cigarettes Per Day: 1/2ppd; Second Hand Exposure: Yes; Do You Dip or Chew Tobacco: No; Hx Alcohol Use: Yes Alcohol type: hard liquor Hx Substance Use: Yes Last Used Substance: Unknown Last Used Substance Other:: 10 yrs ago Substance Use Type Other:: ectasy, mushrooms, LSD x10 yrs ago Preferred Language: Yakut Communication Ability: Effective [employer] Commission Sales Associate Required: No Beliefs That Will Affect Care: None Current Living Situation: Significant Other Feels Safe at Home: Yes Assistive Devices: None Review of Systems Review of Systems: All systems reviewed & are unremarkable except as noted in HPI & below Physical Exam Physical Exam: General- adult Head- atraumatic Eyes- PERRL. ENT- oropharynx clear Neck- supple, no JVD. Lungs- clear to auscultation no wheezing or crackles Heart- regular rhythm; tachycardia no murmur, no gallop. Abdomen- normal bowel sounds, soft, mild diffuse tender no distension Extremities- no pretibial edema, no erythema seen Neuro- alert, oriented PERRL, no facial palsy; no dysarthria; moves extremities Results & Data Results & Data Vital Signs (Past 12 Hours) Vital Signs Temp Pulse Pulse Resp BP BP Pulse Ox 10/31/24 04:57 36.9 C 101 H 18 153/103 H 100 10/31/24 04:41 37.3 C 90 15 142/78 H 100 10/31/24 04:19 85 15 145/87 H 100 10/31/24 02:59 80 14 99 10/31/24 02:59 80 14 144/76 H 98 10/31/24 02:46 86 10/31/24 02:22 36.4 C L 130 H 129/83 98 O2 Del Method 10/31/24 04:57 10/31/24 04:41 10/31/24 04:19 Room Air 10/31/24 02:59 Room Air 10/31/24 02:59 Room Air 10/31/24 02:46 10/31/24 02:22 Room Air Diagnostic Findings Laboratory Results WBC 8.57 K/ul (4.8-10.8) 10/31/24 02:28 RBC 3.07 M/uL (4.70-6.10) L 10/31/24 02:28 Hgb 7.7 g/dl (14.0-18.0) L 10/31/24 02:28 Hct 24.7 % (42.0-52.0) L 10/31/24 02:28 MCV 80.5 fL (80.0-100.0) 10/31/24 02: MCH 25.1 pg (25.0-34.0) 10/31/24 02: MCHC 31.2 g/dL (32.0-36.0) L 10/31/24 02: RDW Std Deviation 54.5 fL (36.4-46.3) H 10/31/24 02: RDW Coeff of Joe 19.2 % (11.5-14.5) H 10/31/24 02:28 Plt Count 127 K/uL (130-400) L 10/31/24 02:28 MPV 9.7 fL (9.4-12.4) 10/31/24 02: Immature Gran % (Auto) 0.9 % 10/31/24 02: Neut % (Auto) 50.4 % 10/31/24 02: Lymph % (Auto) 37.0 % 10/31/24 02: Mayes % (Auto) 7.7 % 10/31/24 02:28 Eos % (Auto) 3.2 % 10/31/24 02:28 Baso % (Auto) 0.8 % 10/31/24 02: Neut # (Auto) 4.32 K/uL (1.40-6.50) 10/31/24 02:28 Lymph # (Auto) 3.17 K/uL (1.20-3.40) 10/31/24 02:28 Mayes # (Auto) 0.66 K/uL (0.11-0.59) H 10/31/24 02:28 Eos # (Auto) 0.27 K/uL (0.00-0.50) 10/31/24 02:28 Baso # (Auto) 0.07 K/uL (0.00-0.20) 10/31/24 02:28 Immature Gran # (Auto) 0.08 K/uL (0.01-0.20) 10/31/24 02:28 Polychromasia 2+ 10/31/24 02:28 Hypochromasia Present 10/31/24 02:28 Target Cells 1+ 10/31/24 02:28 PT 16.8 Seconds (9.0-12.0) H 10/31/24 02:28 INR 1.6 (0.9-1.1) H 10/31/24 02:28 APTT 28 Seconds (21-31) 10/31/24 02:28 PTT Ratio 1.0 10/31/24 02:28 Sodium 134 mmol/L (136-145) L 10/31/24 02:28 Potassium 3.7 mmol/L (3.5-5.1) 10/31/24 02:28 Chloride 106 mmol/L (98-107) 10/31/24 02:28 Carbon Dioxide 22 mmol/L (21-32) 10/31/24 02:28 Anion Gap 6 (3-11) 10/31/24 02:28 BUN 20 mg/dl (6-23) 10/31/24 02:28 Creatinine 0.52 mg/dl (0.6-1.4) L 10/31/24 02:28 Est Cr Clr Drug Dosing Not Reportable 10/31/24 02:28 eGFR 133.97 10/31/24 02:28 BUN/Creatinine Ratio 38.5 (10-20) H 10/31/24 02:28 Glucose 110 mg/dl (70-99(Fasting)) H 10/31/24 02:28 Calcium 9.0 mg/dl (8.6-10.3) 10/31/24 02:28 Magnesium 1.9 mg/dl (1.7-2.4) 10/31/24 02:28 Total Bilirubin 3.9 mg/dl (0.2-1.0) H 10/31/24 02:28 AST 99 U/L (13-39) H 10/31/24 02:28 ALT 60 U/L (7-52) H 10/31/24 02:28 Alkaline Phosphatase 79 U/L (34-104) 10/31/24 02:28 Troponin I High Sens 35.0 pg/ml (0-20) H D 10/31/24 04:29 Total Protein 6.7 gm/dl (6.0-8.3) 10/31/24 02:28 Albumin 3.6 gm/dl (3.4-5.0) 10/31/24 02:28 Globulin 3.1 gm/dl (2.5-4.0) 10/31/24 02:28 Albumin/Globulin Ratio 1.2 (0.9-2) 10/31/24 02:28 Lipase 74 U/L (11-82) 10/31/24 02:28 Ethyl Alcohol mg/dL < 10.0 mg/dl (<10.0) 10/31/24 02:28 Blood Type A Positive 10/31/24 03:19 Antibody Screen NEGATIVE 10/31/24 03:19 Crossmatch See Detail 10/31/24 03:19 Impressions Abdomen/Pelvis CT 10/31/24 02:28 EXAM: CT abd pelvis IV con only CLINICAL HISTORY: abd pain, GI bleed TECHNIQUE: Multiple contiguous axial images were obtained from the level of diaphragm to the pubis symphysis. This study was acquired after the IV administration of iodinated contrast material, given the patients indications for the examination. If IV contrast material had not been administered, the likelihood of detecting abnormalities relevant to the patients condition would have been substantially decreased. Coronal and sagittal reformatted images were generated and reviewed to improve anatomic localization and optimize lesion detection. CT scan was performed according to ALARA (as low as reasonable achievable). COMPARISON: 09/29/2024 FINDINGS: The visualized lung bases are clear. ABDOMEN/PELVIS: The liver is normal in size and heterogeneous in attenuation with surface irregularity. No focal liver lesions are seen. There is no intra or extrahepatic biliary ductal dilatation. Hepatic vasculature is patent. Multiple omental collaterals are seen. The gallbladder is well distended with evidence of radiodense calculi within. Still seen mildly bulky pancreatic parenchyma with peripancreatic and mesenteric fat stranding Splenomegaly - unchanged The adrenal glands are unremarkable. The kidneys are normal in size and attenuation. There is no hydronephrosis or perinephric fat stranding. No renal calculi or renal masses are identified. The ureters are normal in caliber and no ureteral calculi are seen. The bladder is normal in contour. Edematous bowel wall thickening of right colon and transverse colon seen - new findings No evidence of bowel obstruction is seen. No features of inflamed appendix Interval reduction of amount of free fluid in abdomen with current study showing mild ascites No adenopathy are seen. The aorta is normal in caliber. No aggressive appearing osseous lesions are identified. Rest unchanged. IMPRESSION: Redemonstration of mild surface irregularity of liver with splenomegaly, omental collaterals and ascites - could represent chronic liver parenchymal disease with portal hypertension, suggest lab correlation Interval reduction of amount of free fluid in abdomen with current study showing mild ascites Still seen mildly bulky pancreatic parenchyma with peripancreatic and mesenteric fat stranding- could represent pancreatitis related changes, suggest lab correlation Uncomplicated cholelithiasis with possible mild reactive wall thickening - unchanged. Edematous bowel wall thickening of right and transverse colon - new findings, represent colitis Electronically signed by Bryon Singh 10-31-2024 05:08 AM ECG Additional Comments: ECG.. Normal sinus rhythm rate of 94. Prolonged QTc 525. No significant changes found. Code Status & VTE Plan VTE Prophylaxis Plan VTE Prophylaxis will be ordered: Yes
[2024-10-31] MEDS ORDERED: busPIRone 5 MG TAB PO PRN (06:09)
[2024-10-31] MEDS ORDERED: ONDANSETRON INJ 2 MG/ML 2 ML VIAL IV PRN (06:09)
[2024-10-31] MEDS ORDERED: Ativan IV Alcohol Withdrawal--Active Protocol IV PRN (06:09)
[2024-10-31] MEDS: PANTOprazole 40 MG in DEXTROSE 5% MINI-B 100 ML IV SCH (06:43)
[2024-10-31] MEDS: OCTREOTIDE ACETATE 500 MCG in SODIUM CHLORIDE 0.9% 100 ML IV SCH (06:44)
[2024-10-31] MEDS: GABAPENTIN 600 MG TAB PO SCH (08:13)
[2024-10-31] MEDS: FOLIC ACID 1 MG TAB PO SCH (08:14)
[2024-10-31] MEDS: MULTIVITAMIN TAB PO SCH (08:14)
[2024-10-31] MEDS: THIAMINE HCL 100 MG TAB PO SCH (08:14)
[2024-10-31 08:23] LABS: Hematocrit (blood only) 26.2 % (42.0-52.0); Hemoglobin 8.2 g/dl (14.0-18.0); Immature Granulocytes # (auto) 0.05 K/uL (0.01-0.20); Immature Granulocytes % (auto) 0.7 %; Mean Corpuscular Hemoglobin 25.7 pg (25.0-34.0); Mean Corpuscular Volume 82.1 fL (80.0-100.0); Platelet Count 103 K/uL (130-400); RDW Standard Deviation 57.5 fL (36.4-46.3); Red Blood Count 3.19 M/uL (4.70-6.10); White Blood Count 6.79 K/ul (4.8-10.8)
[2024-10-31 08:39] LABS: Anion Gap 8.0 (3-11); Blood Urea Nitrogen 19.0 mg/dl (6-23); Calcium 8.4 mg/dl (8.6-10.3); Carbon Dioxide 21.0 mmol/L (21-32); Chloride 106.0 mmol/L (98-107); Creatinine Clr Calc Pharmacy 185.0 ml/min; Glucose 100.0 mg/dl (70-99(Fasting)); Magnesium 1.8 mg/dl (1.7-2.4); Potassium 3.9 mmol/L (3.5-5.1); Sodium 135.0 mmol/L (136-145)
--- NOTE | 2024-10-31 12:06 | Communication Note ---
Date of Service: October 31, 2024 Patient seen and examined Reports hematemesis and nausea have resolved Last BM was dark Abd pain resolved Reports he quit alcohol intake 5 days ago. Got 1 PRBC in ER Post transfusion Hb is 8.2 Continue to monitor H/H Awaiting GI eval Continue IV PPI and octreotide Other plans as detailed in H/P this AM
[2024-10-31 15:26] LABS: Hematocrit (blood only) 25.1 % (42.0-52.0); Hemoglobin 7.9 g/dl (14.0-18.0)
[2024-10-31 21:54] LABS: Hematocrit (blood only) 23.9 % (42.0-52.0); Hemoglobin 7.6 g/dl (14.0-18.0)
[2024-11-01 06:29] LABS: Hematocrit (blood only) 26.3 % (42.0-52.0); Hemoglobin 8.2 g/dl (14.0-18.0); Mean Corpuscular Hemoglobin 26.1 pg (25.0-34.0); Mean Corpuscular Volume 83.8 fL (80.0-100.0); Platelet Count 128 K/uL (130-400); RDW Standard Deviation 57.7 fL (36.4-46.3); Red Blood Count 3.14 M/uL (4.70-6.10); White Blood Count 6.01 K/ul (4.8-10.8)
[2024-11-01 06:54] LABS: Alanine Aminotransferase 72.0 U/L (7-52); Albumin Globulin Ratio 1.1 (0.9-2); Alkaline Phosphatase 69.0 U/L (34-104); Anion Gap 4.0 (3-11); Bilirubin,Total 4.2 mg/dl (0.2-1.0); Blood Urea Nitrogen 16.0 mg/dl (6-23); Calcium 8.4 mg/dl (8.6-10.3); Carbon Dioxide 24.0 mmol/L (21-32); Chloride 106.0 mmol/L (98-107); Creatinine Clr Calc Pharmacy 157.4 ml/min; Globulin 2.9 gm/dl (2.5-4.0); Glucose 106.0 mg/dl (70-99(Fasting)); Magnesium 1.7 mg/dl (1.7-2.4); Potassium 3.8 mmol/L (3.5-5.1); Sodium 134.0 mmol/L (136-145); Total Protein 6.2 gm/dl (6.0-8.3)
[2024-11-01 06:57] LABS: INR 1.6 (0.9-1.1); Prothrombin Time 16.2 Seconds (9.0-12.0)
--- NOTE | 2024-11-01 07:24 | Electrocardiogram Report ---
Test Reason : Blood Pressure : */* mmHG Vent. Rate : 94 BPM Atrial Rate : 94 BPM P-R Int : 152 ms QRS Dur : 84 ms QT Int : 420 ms P-R-T Axes : -20 7 -7 degrees QTcB Int : 525 ms Normal sinus rhythm Possible Inferior infarct , age undetermined Prolonged QT Abnormal ECG When compared with ECG of 29-Sep-2024 22:55, No significant change was found Confirmed by Rafael Sky ([id number]) on 11/01/2024 7:23:53 AM Referred By: NO PCP Confirmed By: Rafael Sky
--- NOTE | 2024-11-01 07:28 | Electrocardiogram Report ---
Test Reason : Blood Pressure : */* mmHG Vent. Rate : 78 BPM Atrial Rate : 78 BPM P-R Int : 142 ms QRS Dur : 86 ms QT Int : 458 ms P-R-T Axes : -28 -3 -14 degrees QTcB Int : 522 ms Normal sinus rhythm possible Inferior infarct (cited on or before 31-Oct-2024) Prolonged QT Abnormal ECG When compared with ECG of 31-Oct-2024 02:41, (unconfirmed) No significant change was found Confirmed by Rafael Sky ([id number]) on 11/01/2024 7:28:19 AM Referred By: NO PCP Confirmed By: Rafael Sky
--- NOTE | 2024-11-01 09:12 | Hospitalist Progress Note ---
Date of Service November 01, 2024 Assessment & Plan (1) GI bleed: Plan: 34-year-old male with past medical history significant for hyperlipidemia, esophageal varices in cirrhosis, hypertension, alcoholic cirrhosis of liver without ascites, portal hypertensive gastropathy, chronic midline thoracic back pain, history of tobacco use, insomnia, medical marijuana use, generalized anxiety disorder, acute psychosis bipolar comes because of hematemesis and melanotic stools Patient had multiple admission for alcoholism in the past and last was in August 2024. In July 2024 he was admitted for upper GI bleed required intubation during that admission. During that admission he had EGD which showed grade 3 esophageal variceal and was banded. Upper GI bleed Likely variceal bleeding EGD in July 2024 showed grade 3 varices Hb on admission was 7.7 S/p [address] Abd noted edematous bowel wall thickening of right and transverse colon which could be colitis, also possible pancreatitis Continue IV PPI and octreotide drip Abd pain resolved. Lipase is normal. Unlikely pancreatitis Discussed with GI this AM. 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 Admission and Anticipated Discharge Date Admission Date: October 31, 2024 Subjective Patient seen and examined No new complaints today No hematemesis today. Last BM was morning of admission No other complaints at this time Physical Exam Constitutional: + well hydrated; no acute distress ENMT: external ear and nose normal, oropharynx normal Respiratory: normal respiratory effort, lungs clear to auscultation Cardiovascular: Rate/Rhythm: regular rate and regular rhythm Gastrointestinal (Abdomen): normal bowel sounds, soft, nontender, no hepatosplenomegaly Neurologic: PERRL, EOMI, accommodation nl, no face palsy, no dysarthria Psychiatric: A+Ox3, euthymic affect Results & Data Results & Data Vital Signs (Past 12 Hours) Vital Signs Temp Pulse Pulse Resp BP Pulse Ox O2 Del Method 11/01/24 08:02 36.7 C 78 18 146/95 H 99 Room Air 11/01/24 03:49 36.6 C 62 17 129/84 99 Room Air 10/31/24 23:50 36.7 C 72 17 128/72 98 Room Air 10/31/24 22:00 67 Laboratory Results Abnormal lab results 10/31/24 10/31/24 11/01/24 Range/Units 15:00 20:41 05:52 RBC 3.14 L (4.70-6.10) M/uL Hgb 7.9 L 7.6 L 8.2 L (14.0-18.0) g/dl Hct 25.1 L 23.9 L 26.3 L (42.0-52.0) % MCHC 31.2 L (32.0-36.0) g/dL RDW Std Deviation 57.7 H (36.4-46.3) fL RDW Coeff of Joe 19.4 H (11.5-14.5) % Plt Count 128 L (130-400) K/uL PT 16.2 H (9.0-12.0) Seconds INR 1.6 H (0.9-1.1) Sodium 134 L (136-145) mmol/L BUN/Creatinine Ratio 23.9 H (10-20) Glucose 106 H (70-99(Fasting)) mg/dl Calcium 8.4 L (8.6-10.3) mg/dl Total Bilirubin 4.2 H (0.2-1.0) mg/dl AST 143 H (13-39) U/L ALT 72 H (7-52) U/L Albumin 3.3 L (3.4-5.0) gm/dl
--- NOTE | 2024-11-01 09:37 | Gastrointestinal Consultation ---
Date of Consultation November 01, 2024 Assessment & Plan (1) GIB (gastrointestinal bleeding): (2) Alcohol use disorder, severe, dependence: (3) Cirrhosis: (4) Gastrointestinal hemorrhage with hematemesis: (5) Portal hypertensive gastropathy: (6) Esophageal varices: (7) Thrombocytopenia: Plan The patient is a 34-year-old with alcoholic cirrhosis complicated by portal hypertensive findings including known esophageal varices status post prior bleeding presenting with hematemesis, melena suspicious for same. PLAN: 1. Upper GI bleed-differential diagnosis includes variceal bleeding, portal hypertensive gastropathic bleeding, peptic ulcer, alcohol induced gastritis with erosion in the setting of thrombocytopenia -- Continue octreotide pending upper endoscopy -- Protonix 40 twice daily -- N.p.o. in anticipation for EGD today -- Monitor CBC, transfuse greater than 7 2. Cirrhosis-patient with known alcoholic cirrhosis with portal hypertensive changes. -- Maintain octreotide -- Strictly avoid alcohol -- MELD 19 -- Discriminant function-24. No steroids warranted in this setting. -- Close follow-up with GI advised to include liver imaging twice yearly, annual alpha-fetoprotein -- Continue EGD surveillance until varices have been obliterated then annually thereafter -- Strict alcohol abstention discussed with patient at length -- No clinical evidence of hepatic encephalopathy at this time to warrant lactulose/Xifaxan Thank you for the courtesy of this consultation. Further recommendations to follow after upper endoscopy. History of Present Illness Reason for Consultation: Hematemesis, cirrhosis, history of esophageal varices Attending Physician: Arabella Urbina MD History of Present Illness The patient is a 34-year-old gentleman history of hypertension, hyperlipidemia, alcohol abuse, alcoholic cirrhosis (no ascites), tobacco abuse who presents to [facility] with episodes of nausea and vomiting including emesis of some clots. He subsequently developed multiple episodes of melena which prompted ER evaluation. Preceding this he ate an entire bag of spicy corn chips which precipitated significant abdominal pain. Prior to this he denies any nausea, vomiting, odynophagia dysphagia, early satiety, unexplained weight loss or irregular bowel habits. He has had issues with alcohol abuse with multiple hospital admissions previously. He was last seen in our institution in July 2024 where he underwent EGD showing grade 3 varices for which 4 bands were placed, red blood in the gastric fundus. The patient was transfused 1 unit for hemoglobin of 8.2 (previously 11.8 08/23/2024). He was started on octreotide and proton pump inhibitor. The patient has not noted any further melena or hematemesis during hospitalization. Allergies Allergy/AdvReac Type Severity Reaction Status Date / Time No Known Allergies Allergy Verified 09/30/24 01:06 Home Medications Medication Instructions Recorded Confirmed Type buspirone 5 mg tablet 5 mg PO TID PRN Anxiety 04/21/24 10/31/24 History furosemide 40 mg tablet 40 mg PO BID 04/21/24 10/31/24 History spironolactone 25 mg tablet 25 mg PO QAM 04/21/24 10/31/24 History nadolol 40 mg tablet 40 mg PO QAM #30 tabs 04/23/24 10/31/24 Rx trazodone 50 mg tablet 50 mg PO HS PRN insomnia #30 tabs 04/23/24 10/31/24 Rx multivitamin 1 tab PO DAILY #30 tabs 07/08/24 10/31/24 Rx pantoprazole 40 mg tablet,delayed 40 mg PO BID #60 tabs 07/08/24 10/31/24 Rx release (Protonix) thiamine HCl (vitamin B1) 100 mg 100 mg PO DAILY #30 tabs 07/08/24 10/31/24 Rx tablet hydrocortisone 1 % topical cream 1 applic topical BID PRN Rectal 08/17/24 10/31/24 Rx (Preparation H Hydrocortisone) irritation/bleeding #28.4 grams folic acid 1 mg tablet 1 mg PO DAILY 08/23/24 10/31/24 History gabapentin 600 mg tablet 600 mg PO TID 08/23/24 10/31/24 History quetiapine 25 mg tablet 25 mg PO HS 08/23/24 10/31/24 History Patient History Medical History Bright red rectal bleeding Alcoholic cirrhosis HTN (hypertension) Thrombocytopenia OCD (obsessive compulsive disorder) Insomnia Bipolar 1 disorder Tobacco abuse Alcohol dependence Compression fracture of T12 vertebra Compression fracture of L1 lumbar vertebra Hepatosplenomegaly Mixed hyperlipidemia Alcohol abuse Surgical History Hx of tonsillectomy Hx of colonoscopy 2014, WNL, internal hemorrhoids Social History Smoking Status: Current every day smoker Tobacco Type: Cigarettes Cigarettes Per Day: 1/2ppd; Second Hand Exposure: No; Do You Dip or Chew Tobacco: No; Tobacco Cessation Education Requested by Patient: Yes Hx Alcohol Use: Yes Alcohol type: hard liquor Hx Substance Use: Yes Last Used Substance: Unknown Last Used Substance Other:: 10 yrs ago Substance Use Type Other:: ectasy, mushrooms, LSD x10 yrs ago Preferred Language: Lithuanian Communication Ability: Effective Fractionation Supervisor Required: No Beliefs That Will Affect Care: None Current Living Situation: Significant Other Other Information That Helps Us Care for You: No Feels Safe at Home: Yes Safety Concerns: Feels Safe At This Time Assistive Devices: None Review of Systems Constitutional: + fatigue, + malaise, + weakness, + anor exia and + insomnia; no fever, no chills, no sweats, no body aches and no weight loss Eyes: no problem reported Ear, Nose, Mouth, Throat: no epistaxis, no bleeding gums, no pain with swallowing and no problem reported Respiratory: no cough, no chest congestion and no hemoptysis Cardiovascular: no chest pain, no chest pain at rest and no dyspnea on exertion Gastrointestinal: + nausea, + vomiting, + hematemesis, + c hange in stools, + blood in stools and + melena; no abdominal pain, no belching, no bloating, no early satiety, no heartburn, no pain with swallowing, no dysphagia, no cramping, no constipation, no diarrhea/loose stools and no fecal incontinence Musculoskeletal: no problem reported Integumentary: no problem reported Neurologic: no problem reported Psychiatric: + abnormal sleep pattern Hematologic / Lymphatic: no easy bleeding, no easy bruising, no coagulopathy and no night sweats Allergy / Immunological: no problem reported Physical Exam Constitutional: well developed, + thin, cooperative and comfortable; no acute distress and no altered mental status ENMT: external ear and nose normal, oropharynx normal Neck: trachea midline, no thyromegaly Respiratory: normal respiratory effort, lungs clear to auscultation Cardiovascular: RRR, no murmur, no edema Gastrointestinal (Abdomen): Inspection/Auscultation: abdomen normal to inspection and normal bowel sounds; abdomen not distended Percussion/Palpation: abdomen soft; no guarding, abdomen not rigid and no ascites Musculoskeletal: no cyanosis or clubbing, extremities motor strength 5/5 Skin: no jaundice Neurologic: PERRL, EOMI, accommodation nl, no face palsy, no dysarthria Psychiatric: A+Ox3, euthymic affect Genitourinary: Not performed Lymphatic: no lymphadenopathy Results & Data Vital Signs (Past 12 Hours) Vital Signs Temp Pulse Pulse Resp BP Pulse Ox O2 Del Method 11/01/24 08:02 36.7 C 78 18 146/95 H 99 Room Air 11/01/24 03:49 36.6 C 62 17 129/84 99 Room Air 10/31/24 23:50 36.7 C 72 17 128/72 98 Room Air 10/31/24 22:[address] abdomen pelvis 10/31/2024: IMPRESSION: Redemonstration of mild surface irregularity of liver with splenomegaly, omental collaterals and ascites - could represent chronic liver parenchymal disease with portal hypertension, suggest lab correlation Interval reduction of amount of free fluid in abdomen with current study showing mild ascites Still seen mildly bulky pancreatic parenchyma with peripancreatic and mesenteric fat stranding- could represent pancreatitis related changes, suggest lab correlation Uncomplicated cholelithiasis with possible mild reactive wall thickening - unchanged. Edematous bowel wall thickening of right and transverse colon - new findings, represent colitis PG Care Time/CCT Total # of Minutes Spent Total Time Spent with Patient: Total time spent is greater than 50% in coordination of care (as documented) at patient's floor/unit and/or counseling patient: [place] [address] IN/OBS CONSULT LVL 4,60M Patient Type New History Detailed Exam Detailed Medical Decision Making Moderate Complexity Diagnoses Gastrointestinal hemorrhage, unspecified gastrointestinal hemorrhage type K92.2 GI bleed type/associated pathology: unspecified gastrointestinal hemorrhage type Alcohol use disorder, severe, dependence F10.20 Alcoholic cirrhosis of liver without ascites K70.30 Hepatic cirrhosis type: alcoholic cirrhosis Ascites presence: without ascites Gastrointestinal hemorrhage with hematemesis K92.0 Portal hypertensive gastropathy K76.6; K31.89 Secondary esophageal varices with bleeding I85.11 Esophageal varices type: secondary Esophageal varices bleeding: with bleeding Thrombocytopenia D69.6 (1) GIB (gastrointestinal bleeding) GI bleed type/associated pathology: unspecified gastrointestinal hemorrhage type Qualified Code(s): K92.2 - Gastrointestinal hemorrhage, unspecified (3) Cirrhosis Hepatic cirrhosis type: alcoholic cirrhosis Ascites presence: without ascites Qualified Code(s): K70.30 - Alcoholic cirrhosis of liver without ascites (6) Esophageal varices Esophageal varices type: secondary Esophageal varices bleeding: with bleeding Qualified Code(s): I85.11 - Secondary esophageal varices with bleeding
[2024-11-01] MEDS ORDERED: LIDOCAINE 2% 2 ML VIAL/AMP(20MG/ML) INFIL ONE (10:24)
[2024-11-01] MEDS ORDERED: PROPOFOL IV EMULSION 10 MG/ML 20 ML VIAL IV ONE (10:24)
[2024-11-01] MEDS ORDERED: SUCCINYLCHOLINE CHLORIDE 20 MG/ML 10 ML VIAL IV ONE (10:37)
--- NOTE | 2024-11-01 10:41 | Anesthesiology Consultation ---
Date of Service November 01, 2024 Assessment & Plan Chart Review Chart Review: Acceptable Risk for Surgery and Patient NOT seen in Pre Admission Testing Consults Requested none History Surgery Operation Date: 11/01/24 10:45 Proposed Procedures p Esophagogastroduodenoscopy Dr. Browne - Jose R Browne MD Height/Weight Height: 5 ft 10 in Weight: 84 kg Allergies Allergy/AdvReac Type Severity Reaction Status Date / Time No Known Allergies Allergy Verified 09/30/24 01:06 Medications Home Medications Medication Instructions Recorded Confirmed Last Taken buspirone 5 mg tablet 5 mg PO TID PRN Anxiety 04/21/24 10/31/24 Unknown furosemide 40 mg tablet 40 mg PO BID 04/21/24 10/31/24 04/21/24 am spironolactone 25 mg tablet 25 mg PO QAM 04/21/24 10/31/24 04/21/24 nadolol 40 mg tablet 40 mg PO QAM #30 tabs 04/23/24 10/31/24 Unknown trazodone 50 mg tablet 50 mg PO HS PRN insomnia #30 tabs 04/23/24 10/31/24 Unknown multivitamin 1 tab PO DAILY #30 tabs 07/08/24 10/31/24 Unknown pantoprazole 40 mg tablet,delayed 40 mg PO BID #60 tabs 07/08/24 10/31/24 Unknown release (Protonix) thiamine HCl (vitamin B1) 100 mg 100 mg PO DAILY #30 tabs 07/08/24 10/31/24 Unknown tablet hydrocortisone 1 % topical cream 1 applic topical BID PRN Rectal 08/17/24 10/31/24 Unknown (Preparation H Hydrocortisone) irritation/bleeding #28.4 grams folic acid 1 mg tablet 1 mg PO DAILY 08/23/24 10/31/24 Unknown gabapentin 600 mg tablet 600 mg PO TID 08/23/24 10/31/24 09/29/24 quetiapine 25 mg tablet 25 mg PO HS 08/23/24 10/31/24 Unknown Active Medications Generic Name Dose Route Start Last Admin Trade Name Freq PRN Reason Stop Dose Admin Folic Acid 1 mg 10/31/24 09:00 11/01/24 08:23 Folic Acid 1 Mg Tab PO 11/30/24 08:59 1 mg DAILY PUJA Administration Gabapentin 600 mg 10/31/24 09:00 11/01/24 08:24 Gabapentin 600 Mg Tab PO 11/30/24 08:59 600 mg TID PUJA Administration Sodium Chloride 1,000 mls @ 50 mls/hr 10/31/24 06:09 11/01/24 01:03 Nss IV 11/03/24 06:08 50 mls/hr .Q20H PUJA Administration Pantoprazole Sodium 40 mg/ 100 mls @ 20 mls/hr 10/31/24 06:30 11/01/24 07:55 Dextrose IV 11/30/24 06:29 8 mg/hr Q5H PUJA 20 mls/hr Administration 8 MG/HR Octreotide Acetate 500 mcg/ 100.5 mls @ 10.05 mls/hr 10/31/24 06:09 11/01/24 01:02 Sodium Chloride IV 11/30/24 06:08 50 mcg/hr .Q10H PUJA 10.1 mls/hr Administration 50 MCG/HR Multivitamins 1 tab 10/31/24 09:00 11/01/24 08:24 Multivitamin Tab PO 11/30/24 08:59 1 tab DAILY PUJA Administration Nadolol 40 mg 10/31/24 09:00 11/01/24 08:24 Nadolol 40 Mg Tab PO 11/30/24 08:59 40 mg QAM PUJA Administration Thiamine HCl 100 mg 10/31/24 09:00 11/01/24 08:24 Thiamine Hcl 100 Mg Tab PO 11/30/24 08:59 100 mg DAILY PUJA Administration Past Medical History Medical History Bright red rectal bleeding Alcoholic cirrhosis HTN (hypertension) Thrombocytopenia OCD (obsessive compulsive disorder) Insomnia Bipolar 1 disorder Tobacco abuse Alcohol dependence Compression fracture of T12 vertebra Compression fracture of L1 lumbar vertebra Hepatosplenomegaly Mixed hyperlipidemia Alcohol abuse Past Surgical History Surgical History Hx of tonsillectomy Hx of colonoscopy 2015, WNL, internal hemorrhoids Social History Smoking Status: Current every day smoker Smoking cigarettes per day: 1/2ppd Do You Dip or Chew Tobacco: No Hx Alcohol Use: Yes Alcohol type: hard liquor alcohol intake frequency: a few times a week Hx Substance Use: Yes substance use type: marijuana Substance Use Type Other:: ectasy, mushrooms, LSD x10 yrs ago Last Used Substance: Unknown Last Used Substance Other:: 10 yrs ago Physical Exam Vital Signs Last Vital Signs Temp 36.7 C 11/01/24 08:02 Pulse 78 11/01/24 08:02 Resp 18 11/01/24 08:02 BP 146/95 H 11/01/24 08:02 Pulse Ox 99 11/01/24 08:02 O2 Del Method Room Air 11/01/24 08:02 Testing Laboratory Results 11/01/24 05:52 11/01/24 05:52 PT 16.2 Seconds (9.0-12.0) H 11/01/24 05:52 INR 1.6 (0.9-1.1) H 11/01/24 05:52 APTT 28 Seconds (21-31) 10/31/24 02:28 Blood Type A Positive 10/31/24 03:19 Antibody Screen NEGATIVE 10/31/24 03:19
[2024-11-01] MEDS ORDERED: ATROPINE SULFATE 0.1 MG/ML 10ML SYR IV PRN (11:08)
[2024-11-01] MEDS ORDERED: ONDANSETRON INJ 2 MG/ML 2 ML VIAL IV PRN (11:08)
[2024-11-01] MEDS ORDERED: ePHEDrine sulfate 50 MG/5 ML SYR ONE (11:29)
--- NOTE | 2024-11-01 12:09 | Anesthesiology Progress Note ---
Date of Service November 01, 2024 Anesthesia Post Procedure Vital Signs Vital Signs: Temp Pulse Pulse Resp BP BP Pulse Ox 11/01/24 08:02 36.7 C 78 18 146/95 H 99 11/01/24 03:49 36.6 C 62 17 129/84 99 10/31/24 23:50 36.7 C 72 17 128/72 98 10/31/24 22:00 67 10/31/24 19:51 36.7 C 73 17 120/76 97 10/31/24 15:50 36.7 C 68 18 137/73 97 10/31/24 14:00 73 16 125/70 99 O2 Del Method 11/01/24 08:02 Room Air 11/01/24 03:49 Room Air 10/31/24 23:50 Room Air 10/31/24 22:00 10/31/24 19:51 Room Air 10/31/24 15:50 Room Air 10/31/24 14:00 Transfer of Care Handoff Completed per policy Notes Mental Status: alert / awake / arousable Patient Amnestic to Procedure: Yes Nausea / Vomiting: adequately controlled Pain: adequately controlled Airway Patency, RR, SpO2: stable & adequate BP & HR: stable & adequate Hydration State: stable & adequate Anesthetic Complications: no major complications apparent
--- NOTE | 2024-11-01 12:48 | GI REPORT ---
[facility] Patient: ADONIS PENNY : 1990 Sex at : Male Age: 34 Years Procedure: Upper GI endoscopy Date: 11/01/2024 Attending Physician: Jose R Browne MD Referring MD: No Pcp Indications: - Suspected upper gastrointestinal bleeding - Melena - Hematemesis - Cirrhosis with UGI bleeding rule out esophageal varices Medications: - See the Anesthesia note for documentation of the administered medications Complications: - No immediate complications. Estimated Blood Loss: - Estimated blood loss was minimal. Procedure: - Prior to the procedure, a History and Physical was performed, and patient medications and allergies were reviewed. The patient's tolerance of previous anesthesia was also reviewed. The risks and benefits of the procedure and the sedation options and risks were discussed with the patient. All questions were answered, and informed consent was obtained. Prior Anticoagulants: The patient has taken no anticoagulant or antiplatelet agents. ASA Grade Assessment: III - A patient with severe systemic disease. After reviewing the risks and benefits, the patient was deemed in satisfactory condition to undergo the procedure. - The egd scope was introduced through the mouth and advanced to the third part of the duodenum. - The upper GI endoscopy was accomplished without difficulty. - The patient tolerated the procedure well. Findings: - The examined duodenum was normal. - Patchy mildly erythematous mucosa without bleeding was found in the entire examined stomach. This was biopsied with a cold forceps for Helicobacter pylori testing. - Mild portal hypertensive gastropathy was found in the entire examined stomach. - Two columns of grade II varices with no bleeding and no stigmata of recent bleeding were found in the lower third of the esophagus. Red paul signs were present. Scarring from prior treatment was visible. Three bands were successfully placed with complete eradication, resulting in deflation of varices. There was no bleeding during nor at the end of the procedure. Estimated blood loss: none. - The cardia and gastric fundus were normal on retroflexion. Impression: - Normal examined duodenum. - Erythematous mucosa in the stomach. Biopsied. - Portal hypertensive gastropathy. - Grade II esophageal varices with no bleeding and no stigmata of recent bleeding. Completely eradicated. Banded. Recommendation: - Await pathology results. - Mechanical soft diet. - Continue octreotide for 24 hours. Monitor patient clinically. - Maintain on nonselective beta trell adjusted to HR < 55 if blood pressure tolerates. - Strict alcohol avoidance. Follow up with GI for cirrhosis. - Repeat upper endoscopy in 2 months for endoscopic band ligation and for retreatment. Procedure Code(s): - 03615, Esophagogastroduodenoscopy, flexible, transoral; with band ligation of esophageal/gastric varices - 62113, Esophagogastroduodenoscopy, flexible, transoral; with biopsy, single or multiple Diagnosis Code(s): - K92.1, Melena (includes Hematochezia) - K92.0, Hematemesis - K74.60, Unspecified cirrhosis of liver - K92.2, Gastrointestinal hemorrhage, unspecified - K31.89, Other diseases of stomach and duodenum - K76.6, Portal hypertension - I85.10, Secondary esophageal varices without bleeding CPT(R) - 2023 copyright [employer]. All Rights Reserved. The CPT codes, CCI edits and ICD codes generated are intended as suggestions and were generated based on input data. These codes are preliminary and upon [employer] electronic review may be revised to meet current compliance and payer requirements. The provider is responsible for the final determination of appropriate codes, and modifiers. Jose R Browne MD This document has been electronically signed. Note Initiated:11/01/2024 Note Completed:11/01/2024 12:47 PM \\[email or web address]\[email or web address]\Results\[id number]
[2024-11-02 07:22] LABS: Hematocrit (blood only) 24.1 % (42.0-52.0); Hemoglobin 7.6 g/dl (14.0-18.0); Mean Corpuscular Hemoglobin 26.2 pg (25.0-34.0); Mean Corpuscular Volume 83.1 fL (80.0-100.0); Platelet Count 101 K/uL (130-400); RDW Standard Deviation 58.4 fL (36.4-46.3); Red Blood Count 2.90 M/uL (4.70-6.10); White Blood Count 3.44 K/ul (4.8-10.8)
[2024-11-02 07:45] LABS: Alanine Aminotransferase 94.0 U/L (7-52); Albumin Globulin Ratio 1.1 (0.9-2); Alkaline Phosphatase 68.0 U/L (34-104); Anion Gap 5.0 (3-11); Bilirubin,Total 3.9 mg/dl (0.2-1.0); Blood Urea Nitrogen 8.0 mg/dl (6-23); Calcium 8.3 mg/dl (8.6-10.3); Carbon Dioxide 25.0 mmol/L (21-32); Chloride 106.0 mmol/L (98-107); Creatinine Clr Calc Pharmacy 191.5 ml/min; Globulin 2.7 gm/dl (2.5-4.0); Glucose 98.0 mg/dl (70-99(Fasting)); Magnesium 1.8 mg/dl (1.7-2.4); Potassium 3.8 mmol/L (3.5-5.1); Sodium 136.0 mmol/L (136-145); Total Protein 5.8 gm/dl (6.0-8.3)
[2024-11-02 07:49] VITALS: BP 123/75; PULSE 65; RESP 17; TEMP 98.1; O2SAT 100
--- NOTE | 2024-11-02 08:12 | Gastroenterology Progress Note ---
Date of Service November 02, 2024 Assessment & Plan (1) GI bleed: Plan: Likely secondary to esophageal varices status post endoscopic band ligation. Hemodynamically and clinically stable. Hemoglobin stable no active bleeding at the present time. Tolerating full liquid diet. Can advance to a regular diet. Continue nadolol. If no further bleeding can consider discharge. He should follow-up with gastroenterology as an outpatient. Admission and Anticipated Discharge Date Admission Date: October 31, 2024 Subjective Denies shortness of breath chest pain or abdominal pain no hematemesis no melena Physical Exam Physical Exam: No acute distress Respiratory rate regular Cardiac rhythm regular Abdomen soft nontender Results & Data Results & Data Vital Signs (Past 12 Hours) Vital Signs Temp Pulse Pulse Resp BP Pulse Ox O2 Del Method 11/02/24 07:47 36.7 C 65 17 123/75 100 Room Air 11/02/24 06:00 11/02/24 04:55 36.6 C 63 16 120/76 96 Room Air 11/01/24 22:52 36.7 C 67 16 114/68 97 Room Air 11/01/24 21:50 67 O2 Del Method 11/02/24 07:47 11/02/24 06:00 Room Air 11/02/24 04:55 11/01/24 22:52 11/01/24 21:50 Laboratory Results Laboratory Results - last 48 hr 10/31/24 10/31/24 10/31/24 07:52 15:00 20:41 WBC 6.79 RBC 3.19 L Hgb 8.2 L 7.9 L 7.6 L Hct 26.2 L 25.1 L 23.9 L MCV 82.1 MCH 25.7 MCHC 31.3 L RDW Std Deviation 57.5 H RDW Coeff of Joe 19.6 H Plt Count 103 L MPV 10.1 Immature Gran % (Auto) 0.7 Neut % (Auto) 54.0 Lymph % (Auto) 35.6 [place] % (Auto) 6.8 Eos % (Auto) 1.9 Baso % (Auto) 1.0 Neut # (Auto) 3.66 Lymph # (Auto) 2.42 [place] # (Auto) 0.46 Eos # (Auto) 0.13 Baso # (Auto) 0.07 Immature Gran # (Auto) 0.05 PT INR Sodium 135 L Potassium 3.9 Chloride 106 Carbon Dioxide 21 Anion Gap 8 BUN 19 Creatinine 0.57 L Est Cr Clr Drug Dosing 185.0 eGFR 130.30 BUN/Creatinine Ratio 33.3 H Glucose 100 H Calcium 8.4 L Phosphorus Magnesium 1.8 Total Bilirubin AST ALT Alkaline Phosphatase Total Protein Albumin Globulin Albumin/Globulin Ratio 11/01/24 11/02/24 05:52 05:51 WBC 6.01 3.44 L RBC 3.14 L 2.90 L Hgb 8.2 L 7.6 L Hct 26.3 L 24.1 L MCV 83.8 83.1 MCH 26.1 26.2 MCHC 31.2 L 31.5 L RDW Std Deviation 57.7 H 58.4 H RDW Coeff of Joe 19.4 H 19.6 H Plt Count 128 L 101 L MPV 10.4 9.8 Immature Gran % (Auto) Neut % (Auto) Lymph % (Auto) [place] % (Auto) Eos % (Auto) Baso % (Auto) Neut # (Auto) Lymph # (Auto) [place] # (Auto) Eos # (Auto) Baso # (Auto) Immature Gran # (Auto) PT 16.2 H INR 1.6 H Sodium 134 L 136 Potassium 3.8 3.8 Chloride 106 106 Carbon Dioxide 24 25 Anion Gap 4 5 BUN 16 8 Creatinine 0.67 0.60 Est Cr Clr Drug Dosing 157.4 191.5 eGFR 124.10 128.30 BUN/Creatinine Ratio 23.9 H 13.3 Glucose 106 H 98 Calcium 8.4 L 8.3 L Phosphorus 3.6 4.1 Magnesium 1.7 1.8 Total Bilirubin 4.2 H 3.9 H AST 143 H 190 H ALT 72 H 94 H Alkaline Phosphatase 69 68 Total Protein 6.2 5.8 L Albumin 3.3 L 3.1 L Globulin 2.9 2.7 Albumin/Globulin Ratio 1.1 1.1 PG Care Time/CCT Total # of Minutes Spent Total Time Spent with Patient: Total time spent is greater than 50% in coordination of care (as documented) at patient's floor/unit and/or counseling patient: Coding Level of Care Code 05873 SUB INP/OBS CARE 2/35MIN Diagnoses GI bleed K92.2
[2024-11-02 08:41] LABS: INR 1.5 (0.9-1.1); Prothrombin Time 16.1 Seconds (9.0-12.0)
--- NOTE | 2024-11-02 09:47 | Discharge Summary ---
Date of Service November 02, 2024 Admission HPI Per Admitting Provider 34-year-old male with past medical history significant for hyperlipidemia, esophageal varices in cirrhosis, hypertension, alcoholic cirrhosis of liver without ascites, portal hypertensive gastropathy, chronic midline thoracic back pain, history of tobacco use, insomnia, medical marijuana use, generalized anxiety disorder, acute psychosis bipolar comes because of GI bleed. Patient states last he had an episode of vomiting a few blood clots. After that he developed black stools for last 30 hours which prompted him to come to the ER. He has some abdominal discomfort. Micturating okay. Denies chest pain or shortness of breath. Currently no nausea. No headache. No runny nose or sore throat. Denies cough. Hemodynamics are okay. Patient says he weaned off from alcohol and since last 1 week he is not drinking. Patient had multiple admission for alcoholism and last was in August 2024. In July 2024 he was admitted for upper GI bleed required intubation during that admission. During that ad mission he had EGD which showed grade 3 esophageal variceal and was banded. Past medical history. As mentioned above Past surgical history. Colonoscopy. Tonsillectomy and adenoidectomy. Social history. Smokes 0.5 packs a day. History of heavy alcohol use. States not drinking since last 1 week. Smokes marijuana as per [facility] Family history. Brother has alcoholism. Brother has asthma. Brother has drug use. Admission Exam Per Admitting Provider General- adult Head- atraumatic Eyes- PERRL. ENT- oropharynx clear Neck- supple, no JVD. Lungs- clear to auscultation no wheezing or crackles Heart- regular rhythm; tachycardia no murmur, no gallop. Abdomen- normal bowel sounds, soft, mild diffuse tender no distension Extremities- no pretibial edema, no erythema seen Neuro- alert, oriented PERRL, no facial palsy; no dysarthria; moves extremities Principal Diagnosis Upper Gastrointestinal bleed Acute blood loss anemia Discharge Exam Constitutional + well hydrated; no acute distress ENMT external ear and nose normal, oropharynx normal Respiratory normal respiratory effort, lungs clear to auscultation Cardiovascular Rate/Rhythm: regular rate and regular rhythm Gastrointestinal (Abdomen) normal bowel sounds, soft, nontender, no hepatosplenomegaly Musculoskeletal No pedal edema Neurologic PERRL, EOMI, accommodation nl, no face palsy, no dysarthria Psychiatric A+Ox3, euthymic affect Discharge Data Allergies Allergy/AdvReac Type Severity Reaction Status Date / Time No Known Allergies Allergy Verified 09/30/24 01:06 Consultations 10/31/24 03:38 ED Decision to Admit Stat 10/31/24 08:00 Consult Gastroenterology Routine 10/31/24 14:42 Consult Gastroenterology Routine Procedures Performed Operation Date: 11/01/24 10:45 Actual Procedures p Esophagogastroduodenoscopy, Variceal banding - Jose R Browne MD Ordered Studies 10/31/24 02:28 CT abd pelvis IV con only Stat The liver is normal in size and heterogeneous in attenuation with surface irregularity. No focal liver lesions are seen. There is no intra or extrahepatic biliary ductal dilatation. Hepatic vasculature is patent. Multiple omental collaterals are seen. The gallbladder is well distended with evidence of radiodense calculi within. Still seen mildly bulky pancreatic parenchyma with peripancreatic and mesenteric fat stranding Splenomegaly - unchanged The adrenal glands are unremarkable. The kidneys are normal in size and attenuation. There is no hydronephrosis or perinephric fat stranding. No renal calculi or renal masses are identified. The ureters are normal in caliber and no ureteral calculi are seen. The bladder is normal in contour. Edematous bowel wall thickening of right colon and transverse colon seen - new findings No evidence of bowel obstruction is seen. No features of inflamed appendix Interval reduction of amount of free fluid in abdomen with current study showing mild ascites No adenopathy are seen. The aorta is normal in caliber. No aggressive appearing osseous lesions are identified. Rest unchanged. IMPRESSION: Redemonstration of mild surface irregularity of liver with splenomegaly, omental collaterals and ascites - could represent chronic liver parenchymal disease with portal hypertension, suggest lab correlation Interval reduction of amount of free fluid in abdomen with current study showing mild ascites Still seen mildly bulky pancreatic parenchyma with peripancreatic and mesenteric fat stranding- could represent pancreatitis related changes, suggest lab correlation Uncomplicated cholelithiasis with possible mild reactive wall thickening - unchanged. Edematous bowel wall thickening of right and transverse colon - new findings, represent colitis Hospital Course (1) GI bleed: 34-year-old male with past medical history significant for hyperlipidemia, esophageal varices in cirrhosis, hypertension, alcoholic cirrhosis of liver without ascites, portal hypertensive gastropathy, chronic midline thoracic back pain, history of tobacco use, insomnia, medical marijuana use, generalized anxiety disorder, acute psychosis bipolar comes because of hematemesis and melanotic stools Patient had multiple admission for alcoholism in the past and last was in August 2024. In July 2024 he was admitted for upper GI bleed required intubation during that admission. During that admission he had EGD which showed grade 3 esophageal variceal and was banded. Upper GI bleed Likely variceal bleeding EGD in July 2024 showed grade 3 varices Hb on admission was 7.7 S/p [address] Abd noted edematous bowel wall thickening of right and transverse colon which could be colitis, also possible pancreatitis Abd pain resolved. Lipase is normal. 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 Will need repeat EGD in 2 months Continue [employer] nadolol and PPI Alcoholism Elevated LFT Alcoholic liver cirrhosis with portal hypertensive gastropathy Reported last drink was 7 days ago Stated he has quit Counseled about alcohol cessation Mild elevation of troponin Mostly demand ischemia Generalized anxiety disorder Bipolar disorder Continue [employer] quetiapine HS Total Time Total Time Spent Total Time Spent (In Minutes): 40 Total Time Includes: Examination of the Patient, Discharge Planning and Medication Reconciliation Discharge Plan Discharge Items Patient Disposition: Home - Self-Care Reason For Visit: GI BLEED Discharge Diagnosis: Upper Gastrointestinal bleed Acute blood loss anemia Condition on Discharge: Fair Activity: Resume your previous activity Non-emergency contact: Primary Care Provider Call non-emergency contact if: you have any medication questions Follow-up/Referrals: Tami Upton MD [Primary Care Provider] - Diet: Regular Addtl Attending Provider Instructions: Mr Storey You were hospitalized and managed for the above listed diagnoses. You received a unit of blood. You had upper GI endoscopy and got banding. Please continue your pantoprazole It is very important you quit alcohol intake. Please ensure follow up with your Cataloging Assistant/Hybrid Derivatives Trader. It was a pleasure taking care of you Pending Studies at Discharge: Yes (Pathology results) Stand-Alone Forms: My [facility], Smoking Cessation Medications and DC Order Prescriptions: Continued pantoprazole [Protonix] 40 mg tablet,delayed release (DR/EC) 40 mg PO BID Qty: 60 0RF thiamine HCl (vitamin B1) 100 mg tablet 100 mg PO DAILY Qty: 30 0RF multivitamin Tablet 1 tab PO DAILY Qty: 30 0RF hydrocortisone [Preparation H Hydrocortisone] 1 % cream 1 applic topical BID PRN (Reason: Rectal irritation/bleeding) Qty: 28.4 0RF quetiapine 25 mg tablet 25 mg PO HS gabapentin 600 mg tablet 600 mg PO TID folic acid 1 mg tablet 1 mg PO DAILY furosemide 40 mg tablet 40 mg PO BID spironolactone 25 mg tablet 25 mg PO QAM buspirone 5 mg tablet 5 mg PO TID PRN (Reason: Anxiety) nadolol 40 mg tablet 40 mg PO QAM Qty: 30 0RF trazodone 50 mg tablet 50 mg PO HS PRN (Reason: insomnia) Qty: 30 0RF Discharge Orders: Discharge Order (Routine); Ordered 11/02/24 Ordered By: Arabella Urbina Admission Data Admit Date/Time: 10/31/24 05:12 Attending Provider: Arabella Urbina I. Admit Provider: Estuardo Reese Primary Care Provider: Tami Upton Other Providers: Estuardo Reese; Eren Bowling; Jose R Browne Other Interventions: Discharge Summary Assessment (RN) Last Done: 11/02/24 11:07
== END 2024-11-02 12:17 | disposition home or self-care (01) | DRG 369 ==
LOC: ED 02:19 → EDINP 05:12 → 2E 06:09